=== PATIENT | female | born 2000 | race Caucasian/White ===

== ENCOUNTER 2020-10-22 08:36 | Outpatient (REF) | payer OTHER, MEDICAID, SELFPAY ==
[2020-10-23 11:41] LABS: C. trachomatis RNA TMA NOT DETECTED (NOT DETECTED); N. gonorrhoeae RNA TMA NOT DETECTED (NOT DETECTED)
== END 2020-10-22 08:37 | disposition home or self-care (01) ==
LOC: HO.LAB 08:36
PROVIDERS: Visit Provider Advanced Practice Midwife
DX: Z30.09 Encounter for other general counseling and advice on contraception (principal); Z20.2 Contact with and (suspected) exposure to infections with a predominantly sexual mode of transmission
CPT/HCPCS: 36415; 87491; 87591; 99395

== ENCOUNTER 2021-01-09 14:50 | Outpatient (REF) | payer OTHER, MEDICAID, SELFPAY ==
[2021-01-09 17:43] LABS: Syphilis Screen Nonreactive (Nonreactive)
[2021-01-10 04:30] LABS: HBc Num1 0.04 S/CO (0.00-0.79); Hepatitis B Core Antibody Nonreactive (Nonreactive); ~HepC Num1 0.11 S/CO (0.00-0.79); ~Hepatitis C Antibody Nonreactive (Nonreactive)
[2021-01-10 04:31] LABS: HIV AB/AG Nonreactive (Nonreactive); HIV Num 1 0.05 S/CO (0.00-0.99)
[2021-01-10 05:51] LABS: CT PCR NOT DETECTED (Not Detect.); NG PCR NOT DETECTED (Not Detect.)
[2021-01-10 09:55] LABS: BV Int Neg Control Negative (Negative); BV Int Pos Control Positive (Positive)
== END 2021-01-09 14:51 | disposition home or self-care (01) ==
LOC: HO.LAB 14:50
PROVIDERS: Visit Provider Advanced Practice Midwife
DX: N89.8 Other specified noninflammatory disorders of vagina (principal); Z20.2 Contact with and (suspected) exposure to infections with a predominantly sexual mode of transmission
CPT/HCPCS: 36415; 86704; 86780; 86803; 87389; 87480; 87491; 87510; 87591; 87660

== ENCOUNTER 2021-01-28 17:36 | Inpatient (IN) | payer OTHER, MEDICAID, SELFPAY ==
[2021-01-28 17:53] VITALS: BP 130/66; PULSE 80
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
--- NOTE | 2021-01-28 18:32 | MHC.CARE ---
CARE team contacted Vicente re: pt, who arrived on Sect 12a. Per Vicente- pt was evaluated prior to arrival and is an active inpt psych bedsearch.
[2021-01-28 18:59] VITALS: BMI 51.6
[2021-01-28 19:13] LABS: Appearance Urine CLEAR; Color Urine YELLOW; Glucose Urine UA NEG (NEG); Leukocyte Esterase Urine NEG (NEG); Nitrite Urine NEG (NEG); Specific Gravity - Urine >= 1.030 (1.005-1.025); Urine Blood 3+ (NEG); Urine Ketones NEG (NEG); Urine Protein 2+ MG/DL (NEG-TRACE)
[2021-01-28 19:16] LABS: UPreg QC Valid YES; Urine Pregnancy NEGATIVE (NEGATIVE)
[2021-01-28 19:22] LABS: Bacteria Urine 1+ /LPF; RBC Urine 0-2 /HPF (0); Squamous Epithelial Cell Urine 1+ /LPF; WBC Urine 0 /HPF (0-4)
[2021-01-28 19:45] LABS: Amphetamine Screen Urine Not Detected (Not Detect); Barbiturates, Urine Not Detected (Not Detect); Benzodiazepines Screen Urine Not Detected (Not Detect); Cannabinoid Screen Urine POSITIVE (Not Detect); Cocaine Screen Urine POSITIVE (Not Detect); Opiate Screen Urine Not Detected (Not Detect); Phencyclidine Screen Urine Not Detected (Not Detect)
[2021-01-28 19:56] LABS: MANUAL DIFF FLAG NO
[2021-01-28 20:01] LABS: Basophils Percent Auto 0.4 % (0-2); Eosinophils Absolute Auto 0.1 X10*3/uL (0.0-0.4); Eosinophils Percent Auto 0.9 % (0-4); Hematocrit 36.8 % (37-47); Hemoglobin 12.7 g/dl (12.0-16.0); Imm Gran Abs Auto 0.02 X10*3/uL (0.00-0.03); Imm Gran Pct Auto 0.2 % (0.0-0.4); Lymphocytes Absolute Auto 1.6 X10*3/uL (1.2-4.9); Mean Corpuscular HGB Conc 34.5 g/dl (31.0-35.0); Mean Corpuscular Hemoglobin 32.1 pg (27.0-33.0); Mean Corpuscular Volume 92.9 fL (80-98); Mean Platelet Volume 10.9 fL (9.4-12.3); Monocytes Absolute Auto 0.3 X10*3/uL (0.1-1.2); Monocytes Percent Auto 4.2 % (2-11); Neutrophils Percent Auto 74.3 % (45-73); Platelet Count 202 X10*3/uL (160-400); Red Blood Count 3.96 X10*6/uL (4.20-5.50); Red Cell Distribution Width 11.9 % (11.0-16.0); White Blood Count 8.1 X10*3/uL (4.8-10.8)
[2021-01-28 20:20] LABS: Ethanol < 10 mg/dL
[2021-01-28 20:23] LABS: Alanine Aminotransferase 46 U/L (0-31); Albumin Level 4.7 g/dL (3.5-5.0); Alkaline Phosphatase 42 U/L (39-117); Anion Gap 12 (12-20); Aspartate Amino Transferase 25 U/L (5-31); Bilirubin Direct 0.4 mg/dL (0.0-0.5); Bilirubin Total 1.1 mg/dL (0.0-1.0); Blood Urea Nitrogen 10 mg/dL (9-16); Calcium 9.7 mg/dL (8.4-10.2); Carbon Dioxide 24 mmol/L (22-29); Chloride 105 mmol/L (96-108); Creatinine Clr Calc Pharmacy 119.9; Estimated Glomerular Filt Rate > 60; Glucose Random 91 mg/dL (60-115); Sodium 137 mmol/L (135-145); Total Protein 7.1 g/dL (6.5-8.0)
--- NOTE | 2021-01-28 23:03 | MHC.CARE ---
[facility] crisis evaluation not yet received. Clinical information provided below. Pt has diagnosis of Bipolar Disorder and has been noncompliant with medications for 4 days. She has been presenting as responding to internal stimuli, demonstrating hypersexualized behaviors, endorsed suicidal ideation with plan, disoriented with no concept of time, and with inappropriate affect. Pt has denied SI since arriving to the ED. Plan is for admission to this evening.
--- NOTE | 2021-01-28 23:54 | ECG_ITS ---
Test Reason : ADMISSION CARDIAC ASSESS Blood Pressure : / mmHG Vent. Rate : 044 BPM Atrial Rate : 044 BPM P-R Int : 168 ms QRS Dur : 090 ms QT Int : 434 ms P-R-T Axes : 034 070 034 degrees QTc Int : 371 ms Marked sinus bradycardia with sinus arrhythmia Abnormal ECG No previous ECGs available Referred By: Jay Mendoza Electronically Signed By:SWATI MURRAY MD
[2021-01-29 00:14] VITALS: BP 101/63; PULSE 57; RESP 16; TEMP 37.1; O2SAT 98
[2021-01-29 00:40] LABS: COVID-19 Test Negative (Negative); IDNOW Serial# 9DD0AD1C
[2021-01-29 01:30] VITALS: BP 123/76; PULSE 70; RESP 18; TEMP 36.1; O2SAT 98
[2021-01-29 04:06] VITALS: BMI 25.9
[2021-01-29 08:46] LABS: Valproate < 2.0 mcg/mL (50.0-100.0)
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
[2021-01-29] MEDS: hydrOXYzine HCL 25 MG TABLET PO (10:13)
--- NOTE | 2021-01-29 16:14 | P.HPPS_ITS ---
Documented by User: Zee Washington APRN 01/30/21 12:48 HPI Chief Complaint: Acute psychosis Sources of Information: patient interviewed, chart reviewed and crisis/core team assessment reviewed HPI Subjective Notes: Dejesus Warning and Conditional Voluntary Healthcare Proxy: No Guardianship: Yes (pt says mom is guardian, crisis eval sates she is her own guardian) Medical Problems Affecting Mental Status: No Narrative: I don't know why I am here. 20 yo female, hx of Bipolar Disorder admitted after refusing to attend a virtual PHP program and making a statement about wanting to vs going to the virtual program after mother informed police who intiated Section [place]. Pt reports she graduated just a few days ago and she and mother have been arguing. Pt had no interest in the virtual program, stating she did not want to continue telling her story over and over. She also currently denies SI, denies perceptual alterations and alleges that the crisis team lied to get me admitted. States she feels she cannot live with mother any longer and plans to ask her grandmother if she would be allowed to live with her. Pt reports substance use, cannabis, denies other use, however, toxicology + cocaine. in addition to cannabis. Pt is crying throughout our meeting. She reports not liking mirrors as they make her feel self-conscious about her appearance which decreases her self- esteem. She reports mother has turned this around to make it appear as if she is paranoid. She explains body image concerns so she avoids mirrors. Per crisis report mother believes pt to be detached from reality, behaving with presence of bizarre behaviors-wearing a summer hat in the heat and covering mirrors. Mom also reports pt not to be taking medications consistently to crisis. Past Psychiatric History: IP:Several, over 11 she believes OP: KAREN Harrington APRN-psychopharmacology ICC: Aleena Diaz FS&T: Janae Gross Medical Evaluation Reviewed: Yes [facility] Medical History (Updated 01/30/21 @ 17:30 by Zee Washington APRN) Asthma Bipolar 1 disorder Cannabis use disorder, moderate, dependence Concussion Depression Dystonia Fingers fractured Family History: mother has bipolar disorder Social History: currently not employed. Graduated 01/27/21 from high school Substance History: Pt reports regular cannabis use. Denies other use. Toxicology positive for cannabis and cocaine Trauma History: affirms Diagnostics Vital Signs (24Hr): Vital Signs - 24 hr 01/29/21 00:14 01/29/21 01:30 Temperature 98.7 F 96.9 F Pulse Rate 57 70 Respiratory Rate 16 18 Blood Pressure 101/63 123/76 Pulse Oximetry 98 98 Body Mass Index 25.9 Labs Results: 01/28/21 19:06 01/28/21 19:07 Labs: Laboratory Results - last 48 hr 01/28/21 01/28/21 01/28/21 19:06 19:07 19:07 WBC 8.1 RBC 3.96 L Hgb 12.7 Hct 36.8 L MCV 92.9 MCH 32.1 MCHC 34.5 RDW 11.9 Plt Count 202 MPV 10.9 Immature Gran % (Auto) 0.2 Neut % (Auto) 74.3 H Lymph % (Auto) 20.0 [place] % (Auto) 4.2 Eos % (Auto) 0.9 Baso % (Auto) 0.4 Lymph # (Auto) 1.6 [place] # (Auto) 0.3 Eos # (Auto) 0.1 Baso # (Auto) 0.0 Abs Immat Gran (auto) 0.02 Absolute Neuts (auto) 6.0 Absolute Nucleated RBC 0.000 Nucleated RBC % (auto) 0.0 Sodium 137 Potassium 4.0 Chloride 105 Carbon Dioxide 24 Anion Gap 12 BUN 10 Creatinine 0.89 Estim Creat Clear Calc 119.9 Estimated GFR > 60 Random Glucose 91 Calcium 9.7 Total Bilirubin 1.1 H Direct Bilirubin 0.4 AST 25 ALT 46 H Alkaline Phosphatase 42 Total Protein 7.1 Albumin 4.7 Urine Color Urine Appearance Urine pH Ur Specific [place] Urine Protein Urine Glucose (UA) Urine Ketones Urine Blood Urine Nitrite Ur Leukocyte Esterase Urine RBC Urine WBC Ur Squamous Epith Cells Urine Bacteria Urine Test Urine Opiates Screen Ur Barbiturates Screen Valproic Acid Ur Phencyclidine Scrn Ur Amphetamines Screen U Benzodiazepines Scrn Urine Cocaine Screen U Marijuana (THC) Screen Ethyl Alcohol < 10 COVID-19 ([facility]UONG) COVID-19 Clin Com 01/28/21 01/28/21 01/28/21 19:07 19:07 19:07 WBC RBC Hgb Hct MCV MCH MCHC RDW Plt Count MPV Immature Gran % (Auto) Neut % (Auto) Lymph % (Auto) [place] % (Auto) Eos % (Auto) Baso % (Auto) Lymph # (Auto) [place] # (Auto) Eos # (Auto) Baso # (Auto) Abs Immat Gran (auto) Absolute Neuts (auto) Absolute Nucleated RBC Nucleated RBC % (auto) Sodium Potassium Chloride Carbon Dioxide Anion Gap BUN Creatinine Estim Creat Clear Calc Estimated GFR Random Glucose Calcium Total Bilirubin Direct Bilirubin AST ALT Alkaline Phosphatase Total Protein Albumin Urine Color YELLOW Urine Appearance CLEAR Urine pH 6.0 Ur Specific [place] >= 1.030 H Urine Protein 2+ H Urine Glucose (UA) NEG Urine Ketones NEG Urine Blood 3+ H Urine Nitrite NEG Ur Leukocyte Esterase NEG Urine RBC 0-2 Urine WBC 0 Ur Squamous Epith Cells 1+ Urine Bacteria 1+ Urine Test NEGATIVE Urine Opiates Screen Not Detected Ur Barbiturates Screen Not Detected Valproic Acid Ur Phencyclidine Scrn Not Detected Ur Amphetamines Screen Not Detected U Benzodiazepines Scrn Not Detected Urine Cocaine Screen POSITIVE H U Marijuana (THC) Screen POSITIVE H Ethyl Alcohol COVID-19 ([facility]UONG) COVID-[employer] 01/29/21 01/29/21 00:21 08:08 WBC RBC Hgb Hct MCV MCH MCHC RDW Plt Count MPV Immature Gran % (Auto) Neut % (Auto) Lymph % (Auto) [place] % (Auto) Eos % (Auto) Baso % (Auto) Lymph # (Auto) [place] # (Auto) Eos # (Auto) Baso # (Auto) Abs Immat Gran (auto) Absolute Neuts (auto) Absolute Nucleated RBC Nucleated RBC % (auto) Sodium Potassium Chloride Carbon Dioxide Anion Gap BUN Creatinine Estim Creat Clear Calc Estimated GFR Random Glucose Calcium Total Bilirubin Direct Bilirubin AST ALT Alkaline Phosphatase Total Protein Albumin Urine Color Urine Appearance Urine pH Ur Specific [place] Urine Protein Urine Glucose (UA) Urine Ketones Urine Blood Urine Nitrite Ur Leukocyte Esterase Urine RBC Urine WBC Ur Squamous Epith Cells Urine Bacteria Urine Test Urine Opiates Screen Ur Barbiturates Screen Valproic Acid < 2.0 L Ur Phencyclidine Scrn Ur Amphetamines Screen U Benzodiazepines Scrn Urine Cocaine Screen U Marijuana (THC) Screen Ethyl Alcohol COVID-19 (TRUONG) Negative COVID-19 [employer] See Note Meds/Allergies Meds Home Medications Acetaminophen (Acetaminophen 325 Mg Tablet) 650 mg PO Q6H PRN PRN Reason: Headache/Pain Mild Scale (1-3) Al Hydroxide/Mg Hydroxide (Magnesium Hydrox/Alum Hydrox 30 Ml Oral.Susp) 30 ml PO Q6H PRN PRN Reason: Heartburn/Nausea Benztropine Mesylate (Benztropine Mesylate 0.5 Mg Tablet) 0.5 mg PO BID DUSTIN Last Admin: 02/04/21 20:03 Dose: 0.5 mg Documented by: Diphenhydramine HCl (Diphenhydramine Hcl 50 Mg/Ml Vial) 50 mg IM ONCE PRN PRN Reason: dystonic reaction Hydroxyzine HCl (Hydroxyzine Hcl 25 Mg Tablet) 25 mg PO TID PRN PRN Reason: Anxiety Last Admin: 01/31/21 16:51 Dose: 25 mg Documented by: Magnesium Hydroxide (Milk Of Magnesia 30 Ml Oral.Susp) 30 ml PO DAILY PRN PRN Reason: Constipation Last Admin: 02/03/21 12:59 Dose: 30 ml Documented by: Melatonin (Melatonin 3 Mg Tablet) 6 mg PO BEDTIME DUSTIN Last Admin: 02/04/21 20:04 Dose: 6 mg Documented by: Multivitamins/Vitamin C (Multivitamin Tablet) 1 tab PO DAILY DUSTIN Last Admin: 02/04/21 10:11 Dose: 1 tab Documented by: Nicotine Polacrilex (Nicotine Polacrilex 2 Mg Gum) 4 mg BUCCAL Q2H PRN PRN Reason: Nicotine Cravings Last Admin: 01/31/21 11:34 Dose: 4 mg Documented by: Patient Own Med ( (Compound W 17%)) 1 each TOPICAL BID DUSTIN Last Admin: 02/04/21 10:13 Dose: Not Given Documented by: Pat Own Med ( Compound W Accu- Freeze Freeze) 1 each TOPICAL DAILY DUSTIN Prazosin HCl (Prazosin Hcl 1 Mg Capsule) 2 mg PO BEDTIME DUSTIN; Protocol Last Admin: 02/04/21 20:03 Dose: 2 mg Documented by: Trazodone HCl (Trazodone Hcl 50 Mg Tablet) 150 mg PO BEDTIME PRN PRN Reason: Insomnia Last Admin: 02/04/21 20:04 Dose: 150 mg Documented by: Ziprasidone (Ziprasidone 20 Mg Capsule) 20 mg PO BID DUSTIN Last Admin: 02/04/21 20:03 Dose: 20 mg Documented by: Allergies Allergies Allergy/AdvReac Type Severity Reaction Status Date / Time risperidone [From Risperdal] Allergy Mild gain weight Verified 01/28/21 18:59 aripiprazole [Abilify] Allergy Unknown gain weight Verified 01/28/21 18:59 paliperidone AdvReac dystonia Verified 01/29/21 09:42 Mental Status Exam Mental Status Exam Patient Appearance: Appropriate Patient Orientation: Person, Place, Time and Situation Level of Consciousness: Awake and Alert Patient Behavior: Appropriate, Talkative, Cooperative, Suspicious, Restless, Anxious, Fearful, Distractible, Good Eye Contact and Crying Mood Description: Depressed Affect Description: Flat Patient Cognition Impaired: No Ability to Follow Directions: Good Speech Pattern: Clear, Appropriate, Spontaneous Speech and Soft-Spoken Memory Description: Episodic Impaired Hallucinations: None (denies) Delusions: Not Present Thought Process: Distracted Thought Content: positive for [place], positive for Circumstantial, positive for [place] and positive for Suicidal Ideation (denies) Depressive Symptoms: Unhappiness and Low Self Esteem Judgement: Fair Assessment & Plan Patient educated on: therapeutic strategies Informed Consent: understands and further education needed Reason for continued inpatient stay Substantial Risk for: harm to self, inability to function and rapid decompensation Documented by User: Zeferino Gentile MD 02/04/21 20:37 HPI Chief Complaint: Acute psychosis [facility] Medical History (Updated 01/30/21 @ 17:30 by Zee Washington APRN) Asthma Bipolar 1 disorder Cannabis use disorder, moderate, dependence Concussion Depression Dystonia Fingers fractured Diagnostics Labs Results: 01/28/21 19:06 01/28/21 19:07 Meds/Allergies Meds Home Medications Acetaminophen (Acetaminophen 325 Mg Tablet) 650 mg PO Q6H PRN PRN Reason: Headache/Pain Mild Scale (1-3) Al Hydroxide/Mg Hydroxide (Magnesium Hydrox/Alum Hydrox 30 Ml Oral.Susp) 30 ml PO Q6H PRN PRN Reason: Heartburn/Nausea Benztropine Mesylate (Benztropine Mesylate 0.5 Mg Tablet) 0.5 mg PO BID [facility] Last Admin: 02/04/21 20:03 Dose: 0.5 mg Documented by: Diphenhydramine HCl (Diphenhydramine Hcl 50 Mg/Ml Vial) 50 mg IM ONCE PRN PRN Reason: dystonic reaction Hydroxyzine HCl (Hydroxyzine Hcl 25 Mg Tablet) 25 mg PO TID PRN PRN Reason: Anxiety Last Admin: 01/31/21 16:51 Dose: 25 mg Documented by: Magnesium Hydroxide (Milk Of Magnesia 30 Ml Oral.Susp) 30 ml PO DAILY PRN PRN Reason: Constipation Last Admin: 02/03/21 12:59 Dose: 30 ml Documented by: Melatonin (Melatonin 3 Mg Tablet) 6 mg PO BEDTIME DUSTIN Last Admin: 02/04/21 20:04 Dose: 6 mg Documented by: Multivitamins/Vitamin C (Multivitamin Tablet) 1 tab PO DAILY DUSTIN Last Admin: 02/04/21 10:11 Dose: 1 tab Documented by: Nicotine Polacrilex (Nicotine Polacrilex 2 Mg Gum) 4 mg BUCCAL Q2H PRN PRN Reason: Nicotine Cravings Last Admin: 01/31/21 11:34 Dose: 4 mg Documented by: Patient Own Med ( (Compound W 17%)) 1 each TOPICAL BID DUSTIN Last Admin: 02/04/21 10:13 Dose: Not Given Documented by: Pat Own Med ( Compound W Accu- Freeze Freeze) 1 each TOPICAL DAILY DUSTIN Prazosin HCl (Prazosin Hcl 1 Mg Capsule) 2 mg PO BEDTIME DUSTIN; Protocol Last Admin: 02/04/21 20:03 Dose: 2 mg Documented by: Trazodone HCl (Trazodone Hcl 50 Mg Tablet) 150 mg PO BEDTIME PRN PRN Reason: Insomnia Last Admin: 02/04/21 20:04 Dose: 150 mg Documented by: Ziprasidone (Ziprasidone 20 Mg Capsule) 20 mg PO BID DUSTIN Last Admin: 02/04/21 20:03 Dose: 20 mg Documented by: Allergies Allergies Allergy/AdvReac Type Severity Reaction Status Date / Time risperidone [From Risperdal] Allergy Mild gain weight Verified 01/28/21 18:59 aripiprazole [Abilify] Allergy Unknown gain weight Verified 01/28/21 18:59 paliperidone AdvReac dystonia Verified 01/29/21 09:42
[2021-01-29 18:00] VITALS: BP 117/56; PULSE 80; TEMP 37.1
[2021-01-29] MEDS: Nicotine Polacrilex 2 MG GUM 4 MG BUCCAL (18:44)
[2021-01-29] MEDS: traZODone HCL 50 MG TABLET PO (20:42)
[2021-01-30 06:00] VITALS: BP 108/60; PULSE 50; RESP 14; TEMP 36.3; O2SAT 98
[2021-01-30] MEDS: Nicotine Polacrilex 2 MG GUM 4 MG BUCCAL (09:49)
--- NOTE | 2021-01-30 12:51 | P.PNPSI_ITS ---
Subjective Subjective Date of Service: 01/30/21 Reason For Visit: Acute psychosis Subjective Notes: Conditional Voluntary Healthcare Proxy: No Guardianship: No Medical Problems Affecting Mental Status: No Interim History: Calmer, more engaged. Discussed cocaine use [employer]. Pt uses once in a while, she denies regular use, denies addictive pattern use, just when available. States she has talked with her mother and they have come to a peaceful agreement currently. Medication Compliance: Yes Side effects from medications: No Attending Groups: No Review of Systems Reports behavioral changes Psychiatric: Reports anxiety, Reports behavioral changes and Reports suicidal ideation (denies) Mental Status Exam Mental Status Exam Patient Appearance: Well Grooomed Patient Orientation: Person, Place, Time and Situation Level of Consciousness: Awake and Alert Patient Behavior: Appropriate Mood Description: Depressed and Anxious Affect Description: Flat Patient Cognition Impaired: No Ability to Follow Directions: Good Speech Pattern: Spontaneous Speech Memory Description: Intact Hallucinations: None Delusions: Not Present and Being Controlled (pt is struggling with being an adult and the new parameters with her sharing info with family) Thought Process: Intact and Distracted Thought Content: positive for [place] and positive for Circumstantial Depressive Symptoms: Increased Anxiety and Thoughts of /Suicide (denies) Abnormal Motor Activity Signs and Symptoms: Restlessness Judgement: Fair Diagnostics Vital Signs (24Hr): Vital Signs - 24 hr 01/29/21 18:00 01/30/21 06:00 Temperature 98.7 F 97.3 F Pulse Rate 80 50 Respiratory Rate 14 Blood Pressure 117/56 L 108/60 Pulse Oximetry 98 Body Mass Index 25.9 Labs Results: 01/28/21 19:06 01/28/21 19:07 Labs: Laboratory Results - last 48 hr 01/28/21 01/28/21 01/28/21 19:06 19:07 19:07 WBC 8.1 RBC 3.96 L Hgb 12.7 Hct 36.8 L MCV 92.9 MCH 32.1 MCHC 34.5 RDW 11.9 Plt Count 202 MPV 10.9 Immature Gran % (Auto) 0.2 Neut % (Auto) 74.3 H Lymph % (Auto) 20.0 [place] % (Auto) 4.2 Eos % (Auto) 0.9 Baso % (Auto) 0.4 Lymph # (Auto) 1.6 [place] # (Auto) 0.3 Eos # (Auto) 0.1 Baso # (Auto) 0.0 Abs Immat Gran (auto) 0.02 Absolute Neuts (auto) 6.0 Absolute Nucleated RBC 0.000 Nucleated RBC % (auto) 0.0 Sodium 137 Potassium 4.0 Chloride 105 Carbon Dioxide 24 Anion Gap 12 BUN 10 Creatinine 0.89 Estim Creat Clear Calc 119.9 Estimated GFR > 60 Random Glucose 91 Calcium 9.7 Total Bilirubin 1.1 H Direct Bilirubin 0.4 AST 25 ALT 46 H Alkaline Phosphatase 42 Total Protein 7.1 Albumin 4.7 Urine Color Urine Appearance Urine pH Ur Specific [place] Urine Protein Urine Glucose (UA) Urine Ketones Urine Blood Urine Nitrite Ur Leukocyte Esterase Urine RBC Urine WBC Ur Squamous Epith Cells Urine Bacteria Urine Test Urine Opiates Screen Ur Barbiturates Screen Valproic Acid Ur Phencyclidine Scrn Ur Amphetamines Screen U Benzodiazepines Scrn Urine Cocaine Screen U Marijuana (THC) Screen Ethyl Alcohol < 10 COVID-19 ([facility]UONG) COVID-19 [employer] 01/28/21 01/28/21 01/28/21 19:07 19:07 19:07 WBC RBC Hgb Hct MCV MCH MCHC RDW Plt Count MPV Immature Gran % (Auto) Neut % (Auto) Lymph % (Auto) [place] % (Auto) Eos % (Auto) Baso % (Auto) Lymph # (Auto) [place] # (Auto) Eos # (Auto) Baso # (Auto) Abs Immat Gran (auto) Absolute Neuts (auto) Absolute Nucleated RBC Nucleated RBC % (auto) Sodium Potassium Chloride Carbon Dioxide Anion Gap BUN Creatinine Estim Creat Clear Calc Estimated GFR Random Glucose Calcium Total Bilirubin Direct Bilirubin AST ALT Alkaline Phosphatase Total Protein Albumin Urine Color YELLOW Urine Appearance CLEAR Urine pH 6.0 Ur Specific [place] >= 1.030 H Urine Protein 2+ H Urine Glucose (UA) NEG Urine Ketones NEG Urine Blood 3+ H Urine Nitrite NEG Ur Leukocyte Esterase NEG Urine RBC 0-2 Urine WBC 0 Ur Squamous Epith Cells 1+ Urine Bacteria 1+ Urine Test NEGATIVE Urine Opiates Screen Not Detected Ur Barbiturates Screen Not Detected Valproic Acid Ur Phencyclidine Scrn Not Detected Ur Amphetamines Screen Not Detected U Benzodiazepines Scrn Not Detected Urine Cocaine Screen POSITIVE H U Marijuana (THC) Screen POSITIVE H Ethyl Alcohol COVID-19 ([facility]UONG) COVID-19 [employer] 01/29/21 01/29/21 00:21 08:08 WBC RBC Hgb Hct MCV MCH MCHC RDW Plt Count MPV Immature Gran % (Auto) Neut % (Auto) Lymph % (Auto) [place] % (Auto) Eos % (Auto) Baso % (Auto) Lymph # (Auto) [place] # (Auto) Eos # (Auto) Baso # (Auto) Abs Immat Gran (auto) Absolute Neuts (auto) Absolute Nucleated RBC Nucleated RBC % (auto) Sodium Potassium Chloride Carbon Dioxide Anion Gap BUN Creatinine Estim Creat Clear Calc Estimated GFR Random Glucose Calcium Total Bilirubin Direct Bilirubin AST ALT Alkaline Phosphatase Total Protein Albumin Urine Color Urine Appearance Urine pH Ur Specific [place] Urine Protein Urine Glucose (UA) Urine Ketones Urine Blood Urine Nitrite Ur Leukocyte Esterase Urine RBC Urine WBC Ur Squamous Epith Cells Urine Bacteria Urine Test Urine Opiates Screen Ur Barbiturates Screen Valproic Acid < 2.0 L Ur Phencyclidine Scrn Ur Amphetamines Screen U Benzodiazepines Scrn Urine Cocaine Screen U Marijuana (THC) Screen Ethyl Alcohol COVID-19 ([facility]UONG) Negative COVID-19 Clin Com See Note Medications Medications Current Medications Generic Name Dose Route Start Last Admin Trade Name Freq PRN Reason Stop Dose Admin Acetaminophen 650 mg 01/29/21 00:15 Acetaminophen 325 Mg Tablet PO Q6H PRN Headache/Pain Mild Scale (1-3) Al Hydroxide/Mg Hydroxide 30 ml 01/29/21 00:15 Magnesium Hydrox/Alum Hydrox 30 Ml Oral.Susp PO Q6H PRN Heartburn/Nausea Hydroxyzine HCl 25 mg 01/29/21 00:15 01/29/21 10:13 Hydroxyzine Hcl 25 Mg Tablet PO 25 mg TID PRN Administration Anxiety Magnesium Hydroxide 30 ml 01/29/21 00:15 Milk Of Magnesia 30 Ml Oral.Susp PO DAILY PRN Constipation Nicotine Polacrilex 4 mg 01/29/21 00:15 01/30/21 09:49 Nicotine Polacrilex 2 Mg Gum BUCCAL 4 mg Q2H PRN Administration Nicotine Cravings Trazodone HCl 50 mg 01/29/21 00:15 Trazodone Hcl 50 Mg Tablet PO BEDTIME PRN Insomnia Trazodone HCl 50 mg 01/29/21 21:00 01/29/21 20:42 Trazodone Hcl 50 Mg Tablet PO 50 mg BEDTIME DUSTIN Administration Allergies Allergies Allergy/AdvReac Type Severity Reaction Status Date / Time risperidone [From Risperdal] Allergy Mild gain weight Verified 01/28/21 18:59 aripiprazole [Abilify] Allergy Unknown gain weight Verified 01/28/21 18:59 paliperidone AdvReac dystonia Verified 01/29/21 09:42 Assessment & Plan Assessment & Plan (1) Cocaine use disorder, mild, abuse: Status: Acute Code(s): F14.10 - Cocaine abuse, uncomplicated (2) Cannabis use disorder, moderate, dependence: Status: Acute Code(s): F12.20 - Cannabis dependence, uncomplicated (3) Bipolar 1 disorder: Status: Inactive Code(s): F31.9 - Bipolar disorder, unspecified Assessment and Plan: Continue current regime. Collateral Contacts. Greater than 50% of the session was spent on counseling and/or coordination of care Patient educated on: therapeutic strategies Informed Consent: further education needed Reason for contiued inpatient stay Substantial Risk for: inability to function and rapid decompensation
[2021-01-30 18:00] VITALS: BP 109/59; PULSE 56; RESP 16; TEMP 36.8; O2SAT 97
[2021-01-30] MEDS: traZODone HCL 50 MG TABLET PO (20:34)
[2021-01-31 06:00] VITALS: BP 156/87; PULSE 88; RESP 16; TEMP 36.3; O2SAT 97
[2021-01-31 07:18] VITALS: BP 103/63; PULSE 64; RESP 16; TEMP 36.4; O2SAT 99
[2021-01-31] MEDS: Nicotine Polacrilex 2 MG GUM 4 MG BUCCAL (11:34)
--- NOTE | 2021-01-31 15:02 | P.PNPSI_ITS ---
Subjective Subjective Date of Service: 01/31/21 Reason For Visit: Acute psychosis Subjective Notes: Conditional Voluntary Healthcare Proxy: No Guardianship: No Medical Problems Affecting Mental Status: No Interim History: Pt reports feeling anxious but OK. She is ready to re-start medications which we will do this evening-Prazosin, Benztropine, Vraylar, (Trazodone prn). 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 Tentative plan to discharge next week-will re-establish regime, meeting with OP team on 02/04. Discussed sx EDUCATIONAL ADVISOR which we are hearing from family/OP team that were a concern. Pt states she does not even know what Black Magic is and has no interest in this. The issues with mirrors being covered she discussed as being too self- conscious about appearance and displeased with how she looks when she looks into a mirror. She denies any fear, paranoia or altered perspective regarding this issue, I just wish I looked better, different. Reports at times, when feeling despair she does call out and believes this is what is referred to when it is reported she is screaming-she attributes this to frustration and grief. Currently denies SI, HI. Denies AH, VH or other perceptual alterations. She acknowledges that sx may have escalated due to cocaine use EDUCATIONAL ADVISOR. Medication Compliance: Yes Side effects from medications: No Attending Groups: Intermittent Review of Systems Review of Systems Yes all other systems are reviewed and are negative (denies) Reports behavioral changes Psychiatric: Reports abnormal sleep pattern, Reports anxiety, Reports behavioral changes, Reports irritability, Reports mood swings, Reports paranoia, Reports hallucinations and Reports suicidal ideation (denies) Mental Status Exam Mental Status Exam Patient Appearance: Appropriate Patient Orientation: Person, Place, Time and Situation Level of Consciousness: Awake and Alert Patient Behavior: Guarded, Talkative, Cooperative, Anxious and Good Eye Contact Mood Description: Suspicious and Withdrawn Affect Description: Suspicious, Withdrawn and Constricted Patient Cognition Impaired: No Ability to Follow Directions: Good Speech Pattern: Spontaneous Speech Memory Description: Episodic Impaired Hallucinations: Auditory (denies, team reports appears to respond) Delusions: Not Present (?) Thought Process: Distracted Thought Content: positive for [place], positive for Circumstantial and positive for Suicidal Ideation (denies) Depressive Symptoms: Increased Anxiety and Thoughts of /Suicide (denies) Abnormal Motor Activity Signs and Symptoms: Restlessness Judgement: Fair Diagnostics Vital Signs (24Hr): Vital Signs - 24 hr 01/30/21 18:00 01/31/21 06:00 01/31/21 07:18 Temperature 98.3 F 97.4 F 97.6 F Pulse Rate 56 88 64 Respiratory Rate 16 16 16 Blood Pressure 109/59 L 156/87 H 103/63 Pulse Oximetry 97 97 99 Body Mass Index 25.9 Labs Results: 01/28/21 19:06 01/28/21 19:07 Medications Medications Current Medications Generic Name Dose Route Start Last Admin Trade Name Freq PRN Reason Stop Dose Admin Acetaminophen 650 mg 01/29/21 00:15 Acetaminophen 325 Mg Tablet PO Q6H PRN Headache/Pain Mild Scale (1-3) Al Hydroxide/Mg Hydroxide 30 ml 01/29/21 00:15 Magnesium Hydrox/Alum Hydrox 30 Ml Oral.Susp PO Q6H PRN Heartburn/Nausea Benztropine Mesylate 1 mg 01/31/21 21:00 Benztropine Mesylate 1 Mg Tablet PO BID DUSTIN Cariprazine 1.5 mg 01/31/21 21:00 Cariprazine Hcl 1.5 Mg Capsule PO BEDTIME DUSTIN Hydroxyzine HCl 25 mg 01/29/21 00:15 01/29/21 10:13 Hydroxyzine Hcl 25 Mg Tablet PO 25 mg TID PRN Administration Anxiety Magnesium Hydroxide 30 ml 01/29/21 00:15 Milk Of Magnesia 30 Ml Oral.Susp PO DAILY PRN Constipation Melatonin 5 mg 01/31/21 21:00 Melatonin 3 Mg Tablet PO BEDTIME DUSTIN Nicotine Polacrilex 4 mg 01/29/21 00:15 01/31/21 11:34 Nicotine Polacrilex 2 Mg Gum BUCCAL 4 mg Q2H PRN Administration Nicotine Cravings Prazosin HCl 2 mg 01/31/21 21:00 Prazosin Hcl 1 Mg Capsule PO BEDTIME DUSTIN Protocol Trazodone HCl 150 mg 01/31/21 15:01 Trazodone Hcl 50 Mg Tablet PO BEDTIME PRN Insomnia Allergies Allergies Allergy/AdvReac Type Severity Reaction Status Date / Time risperidone [From Risperdal] Allergy Mild gain weight Verified 01/28/21 18:59 aripiprazole [Abilify] Allergy Unknown gain weight Verified 01/28/21 18:59 paliperidone AdvReac dystonia Verified 01/29/21 09:42 Assessment & Plan Assessment & Plan (1) Cocaine use disorder, mild, abuse: Status: Acute Code(s): F14.10 - Cocaine abuse, uncomplicated Assessment and Plan: No adverse effects to this point it appears (2) Cannabis use disorder, moderate, dependence: Status: Acute Code(s): F12.20 - Cannabis dependence, uncomplicated (3) Bipolar 1 disorder: Status: Inactive Code(s): F31.9 - Bipolar disorder, unspecified Assessment and Plan: Re-start Vraylar, Benztropine, Prazosin Observe and support pt. Collateral Contacts. Greater than 50% of the session was spent on counseling and/or coordination of care Reason for contiued inpatient stay Substantial Risk for: harm to self, inability to function and rapid decompensation
[2021-01-31 16:45] VITALS: BP 114/62; PULSE 74; TEMP 36.6
[2021-01-31] MEDS: hydrOXYzine HCL 25 MG TABLET PO (16:51)
[2021-01-31 20:47] VITALS: BP 112/62; PULSE 55
[2021-01-31] MEDS: Benztropine Mesylate 1 MG TABLET PO (20:47)
[2021-01-31] MEDS: Melatonin 3 MG TABLET 6 MG PO (20:47)
[2021-01-31] MEDS: Cariprazine HCl 1.5 MG CAPSULE PO (20:47)
[2021-01-31] MEDS: Prazosin HCL 1 MG CAPSULE 2 MG PO (20:47)
[2021-02-01 06:00] VITALS: BP 95/55; PULSE 54; RESP 14; TEMP 36.1; O2SAT 98
[2021-02-01] MEDS: Benztropine Mesylate 1 MG TABLET PO ×2 (08:19→20:21)
--- NOTE | 2021-02-01 09:00 | ECG_ITS ---
Test Reason : COCAINE USE Blood Pressure : / mmHG Vent. Rate : 049 BPM Atrial Rate : 049 BPM P-R Int : 152 ms QRS Dur : 084 ms QT Int : 424 ms P-R-T Axes : 017 068 047 degrees QTc Int : 383 ms Sinus bradycardia Otherwise normal ECG When compared with ECG of 28-JAN-2021 23:54, No significant change was found Referred By: Zee Washington Electronically Signed By:SWATI MURRAY MD
--- NOTE | 2021-02-01 12:50 | HO.PSYCHPN ---
Subjective Subjective Date of Service: 02/01/21 Reason For Visit: Acute psychosis Subjective Notes: Conditional Voluntary Healthcare Proxy: No Guardianship: No Medical Problems Affecting Mental Status: No Interim History: Medication regime re-started without adverse response. 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 Mom asks that we find a dual diagnosis rehab for pt when discharged. Pt agrees, feeling use has precipitated her instability and need for admission and she needs more help with this. Medication Compliance: Yes Side effects from medications: No Attending Groups: Intermittent Review of Systems Review of Systems Yes all other systems are reviewed and are negative Reports behavioral changes Psychiatric: Reports anxiety, Reports behavioral changes, Reports depression, Reports difficulty concentrating and Reports anhedonia Mental Status Exam Mental Status Exam Patient Appearance: Disheveled Patient Orientation: Person, Place, Time and Situation Level of Consciousness: Awake Patient Behavior: Appropriate, Talkative and Cooperative Mood Description: Withdrawn and Depressed Affect Description: Withdrawn, Depressed and Flat Patient Cognition Impaired: No Ability to Follow Directions: Good Speech Pattern: Spontaneous Speech Memory Description: Intact Hallucinations: None Delusions: Not Present Thought Process: Distracted Thought Content: positive for Circumstantial Depressive Symptoms: Increased Anxiety, Diff. Making Decisions, Increased Irritability, Feelings of Worthlessness, Hopelessness, Unhappiness and Loss of Energy Judgement: Fair Diagnostics Vital Signs (24Hr): Vital Signs - 24 hr 01/31/21 16:45 01/31/21 20:47 02/01/21 06:00 Temperature 97.9 F 97 F Pulse Rate 74 55 54 Respiratory Rate 14 Blood Pressure 114/62 112/62 95/55 L Pulse Oximetry 98 Body Mass Index 25.9 Labs Results: 01/28/21 19:06 01/28/21 19:07 Medications Medications Current Medications Generic Name Dose Route Start Last Admin Trade Name Freq PRN Reason Stop Dose Admin Acetaminophen 650 mg 01/29/21 00:15 Acetaminophen 325 Mg Tablet PO Q6H PRN Headache/Pain Mild Scale (1-3) Al Hydroxide/Mg Hydroxide 30 ml 01/29/21 00:15 Magnesium Hydrox/Alum Hydrox 30 Ml Oral.Susp PO Q6H PRN Heartburn/Nausea Benztropine Mesylate 1 mg 01/31/21 21:00 02/01/21 08:19 Benztropine Mesylate 1 Mg Tablet PO 1 mg BID DUSTIN Administration Cariprazine 1.5 mg 01/31/21 21:00 01/31/21 20:47 Cariprazine Hcl 1.5 Mg Capsule PO 1.5 mg BEDTIME DUSTIN Administration Hydroxyzine HCl 25 mg 01/29/21 00:15 01/31/21 16:51 Hydroxyzine Hcl 25 Mg Tablet PO 25 mg TID PRN Administration Anxiety Magnesium Hydroxide 30 ml 01/29/21 00:15 Milk Of Magnesia 30 Ml Oral.Susp PO DAILY PRN Constipation Melatonin 6 mg 01/31/21 21:00 01/31/21 20:47 Melatonin 3 Mg Tablet PO 6 mg BEDTIME DUSTIN Administration Nicotine Polacrilex 4 mg 01/29/21 00:15 01/31/21 11:34 Nicotine Polacrilex 2 Mg Gum BUCCAL 4 mg Q2H PRN Administration Nicotine Cravings Prazosin HCl 2 mg 01/31/21 21:00 01/31/21 20:47 Prazosin Hcl 1 Mg Capsule PO 2 mg BEDTIME DUSTIN Administration Protocol Trazodone HCl 150 mg 01/31/21 15:01 Trazodone Hcl 50 Mg Tablet PO BEDTIME PRN Insomnia Allergies Allergies Allergy/AdvReac Type Severity Reaction Status Date / Time risperidone [From Risperdal] Allergy Mild gain weight Verified 01/28/21 18:59 aripiprazole [Abilify] Allergy Unknown gain weight Verified 01/28/21 18:59 paliperidone AdvReac dystonia Verified 01/29/21 09:42 Assessment & Plan Assessment & Plan (1) Cocaine use disorder, mild, abuse: Status: Acute Code(s): F14.10 - Cocaine abuse, uncomplicated Assessment and Plan: No adverse effects to this point it appears (2) Cannabis use disorder, moderate, dependence: Status: Acute Code(s): F12.20 - Cannabis dependence, uncomplicated (3) Bipolar 1 disorder: Status: Inactive Code(s): F31.9 - Bipolar disorder, unspecified Assessment and Plan: Re-start Vraylar, Benztropine, Prazosin Observe and support pt. Collateral Contacts. Greater than 50% of the session was spent on counseling and/or coordination of care Reason for contiued inpatient stay Substantial Risk for: harm to self, inability to function, rapid decompensation and med/psych decompensation
[2021-02-01 16:45] VITALS: BP 114/62; PULSE 75; TEMP 36.9
[2021-02-01 20:21] VITALS: BP 110/60; PULSE 86
[2021-02-01] MEDS: Prazosin HCL 1 MG CAPSULE 2 MG PO (20:21)
[2021-02-01] MEDS: Melatonin 3 MG TABLET 6 MG PO (20:22)
[2021-02-01] MEDS: Cariprazine HCl 1.5 MG CAPSULE PO (20:22)
[2021-02-02 06:00] VITALS: BP 107/56; PULSE 66; RESP 16; TEMP 36.8; O2SAT 98
--- NOTE | 2021-02-02 08:54 | P.PNPSI_ITS ---
Subjective Subjective Date of Service: 02/02/21 Reason For Visit: Acute psychosis Interim History: patient sitting with her mother patient denies current AH. She says im good on my meds and that she's eating and sleeping well Pt says that her nipples are lactating and agrees to show nurses next time it happens; race and sports book writer reviewed risks/side-effects of antipsychotic medications including gallachtorhea and patient says she does not care about that as long as medications are effective. mother and daughter are concerned about Warts that have sprung up on patients feet and hands in last couple of weeks. Concern for mom is that patient has much anxiety over how she looks and that things like warts could trigger troublesome anxiety for patient. She denies SI mom says that patient had a bout of painful dystonia and was thus put on Cogentin. Discussed cogentin and daughter would like to lower it to 0.5mg BID given that she may not get dystonia on abilify. mom says following about meds: Palliperidone: dystonia Abilify: tongue swelling risperdal: ? Medication Compliance: Yes Side effects from medications: Yes (pt complains of Gallachtorhea on Vraylar; will show nurse next time) Mental Status Exam Mental Status Exam Narrative: Appearance: well groomed Patient Orientation: Person, Place, Time and Situation Level of Consciousness: Awake Patient Behavior: Appropriate, Talkative and Cooperative Mood Description: anxious Affect Description: congruent Patient Cognition Impaired: No Ability to Follow Directions: Good Speech Pattern: Spontaneous Speech Memory Description: Intact Hallucinations: AH Delusions: none solicited Thought Process: linear and goal oriented Thought Content: on treatment for aH; denies SI and HI Depressive Symptoms: Increased Anxiety, Diff. Making Decisions, Increased Irritability, Feelings of Worthlessness, Hopelessness, Unhappiness and Loss of Energy Judgement: Fair Diagnostics Vital Signs (24Hr): Vital Signs - 24 hr 02/01/21 16:45 02/01/21 20:21 02/02/21 06:00 Temperature 98.5 F 98.2 F Pulse Rate 75 86 66 Respiratory Rate 16 Blood Pressure 114/62 110/60 107/56 L Pulse Oximetry 98 Body Mass Index 25.9 Labs Results: 01/28/21 19:06 01/28/21 19:07 Medications Medications Current Medications Generic Name Dose Route Start Last Admin Trade Name Freq PRN Reason Stop Dose Admin Acetaminophen 650 mg 01/29/21 00:15 Acetaminophen 325 Mg Tablet PO Q6H PRN Headache/Pain Mild Scale (1-3) Al Hydroxide/Mg Hydroxide 30 ml 01/29/21 00:15 Magnesium Hydrox/Alum Hydrox 30 Ml Oral.Susp PO Q6H PRN Heartburn/Nausea Benztropine Mesylate 1 mg 01/31/21 21:00 02/01/21 20:21 Benztropine Mesylate 1 Mg Tablet PO 1 mg BID DUSTIN Administration Cariprazine 1.5 mg 01/31/21 21:00 02/01/21 20:22 Cariprazine Hcl 1.5 Mg Capsule PO 1.5 mg BEDTIME DUSTIN Administration Hydroxyzine HCl 25 mg 01/29/21 00:15 01/31/21 16:51 Hydroxyzine Hcl 25 Mg Tablet PO 25 mg TID PRN Administration Anxiety Magnesium Hydroxide 30 ml 01/29/21 00:15 Milk Of Magnesia 30 Ml Oral.Susp PO DAILY PRN Constipation Melatonin 6 mg 01/31/21 21:00 02/01/21 20:22 Melatonin 3 Mg Tablet PO 6 mg BEDTIME DUSTIN Administration Nicotine Polacrilex 4 mg 01/29/21 00:15 01/31/21 11:34 Nicotine Polacrilex 2 Mg Gum BUCCAL 4 mg Q2H PRN Administration Nicotine Cravings Patient Own Med ( 1 each 02/01/21 21:00 02/01/21 19:22 Compound W 17%) TOPICAL 1 each BID DUSTIN Administration Prazosin HCl 2 mg 01/31/21 21:00 02/01/21 20:21 Prazosin Hcl 1 Mg Capsule PO 2 mg BEDTIME DUSTIN Administration Protocol Trazodone HCl 150 mg 01/31/21 15:01 Trazodone Hcl 50 Mg Tablet PO BEDTIME PRN Insomnia Allergies Allergies Allergy/AdvReac Type Severity Reaction Status Date / Time risperidone [From Risperdal] Allergy Mild gain weight Verified 01/28/21 18:59 aripiprazole [Abilify] Allergy Unknown gain weight Verified 01/28/21 18:59 paliperidone AdvReac dystonia Verified 01/29/21 09:42 Assessment & Plan Assessment & Plan (1) Cocaine use disorder, mild, abuse: Status: Acute Code(s): F14.10 - Cocaine abuse, uncomplicated Assessment and Plan: No adverse effects to this point it appears (2) Cannabis use disorder, moderate, dependence: Status: Acute Code(s): F12.20 - Cannabis dependence, uncomplicated (3) Bipolar 1 disorder: Status: Inactive Code(s): F31.9 - Bipolar disorder, unspecified Assessment and Plan: Weekend: continue Vraylar lowered cogentin to 0.5mg BID to see if adequate mom brought in otc meds for warts pt denies AVH at this time Re-start Vraylar, Benztropine, Prazosin Observe and support pt. Collateral Contacts. Greater than 50% of the session was spent on counseling and/or coordination of care Reason for contiued inpatient stay Substantial Risk for: med/psych decompensation
[2021-02-02] MEDS: Benztropine Mesylate 1 MG TABLET PO (09:04)
[2021-02-02 09:20] LABS: Estimated Average Glucose 94 mg/dL; Hemoglobin A1c % 4.9 %
[2021-02-02 09:36] LABS: Cholesterol 186 mg/dL; HDL Cholesterol 52 mg/dL; LDL Cholesterol Calculated 115 mg/dl; Triglycerides 96 mg/dL
[2021-02-02] MEDS: Multivitamin TABLET 1 TAB PO (12:38)
--- NOTE | 2021-02-02 12:50 | PC.NURSE ---
pt reported to staff that she was having discharge from her nipples/breasts. assessed by this rewriter. pt squeezed both nipples and no drainage noted at this time. pt aware to come to staff if this is happening again. dr. Salazar aware.
[2021-02-02 16:38] VITALS: BP 114/58; PULSE 71; TEMP 36.6
[2021-02-02 19:50] VITALS: BP 114/65; PULSE 80; TEMP 36.6
[2021-02-02 20:08] VITALS: BP 114/65; PULSE 80
[2021-02-02] MEDS: Prazosin HCL 1 MG CAPSULE 2 MG PO (20:08)
[2021-02-02] MEDS: Cariprazine HCl 1.5 MG CAPSULE PO (20:08)
[2021-02-02] MEDS: Melatonin 3 MG TABLET 6 MG PO (20:08)
[2021-02-02] MEDS: traZODone HCL 50 MG TABLET 150 MG PO (20:08)
[2021-02-02] MEDS: Benztropine Mesylate 0.5 MG TABLET PO (20:08)
[2021-02-03 06:20] VITALS: BP 118/54; PULSE 71; RESP 16; TEMP 36.2; O2SAT 99
[2021-02-03] MEDS: Multivitamin TABLET 1 TAB PO (08:31)
[2021-02-03] MEDS: Benztropine Mesylate 0.5 MG TABLET PO ×2 (08:31→20:00)
--- NOTE | 2021-02-03 10:00 | HO.PSYCHPN ---
Subjective Subjective Date of Service: 02/03/21 Reason For Visit: Acute psychosis Interim History: pt reports AH are worse and that she's been minimizing them hesitant to try new meds or have med changes however, she says whatever will take voices away she'll take. pt says she hears the voice of a past friend who taunts her, criticizes her, wakes her up, says she'll take her place in the family...if she eats food which is bad the voices say they will punish her by giving her warts. Pt is open to reality testing and seems to accepts writers explanation of symptoms. Patient also shares how she feels she's being punished since she was not very lady like last year (seems to be reference to doing cocaine). She agrees to increase in Vraylar; will also try Ziprasidone as prn for breakthrough AH. Clerical Transcriber reviewed risks/side-effects and pt agrees to trial. she denies any SI or HI. Mental Status Exam Mental Status Exam Narrative: Appearance: well groomed Patient Orientation: Person, Place, Time and Situation Level of Consciousness: Awake Patient Behavior: Appropriate, Talkative and Cooperative Mood Description: anxious Affect Description: congruent Patient Cognition Impaired: No Ability to Follow Directions: Good Speech Pattern: Spontaneous Speech Memory Description: Intact Hallucinations: AH Delusions: being given warts as punishment Thought Process: linear and goal oriented Thought Content: on treatment for aH Depressive Symptoms: Increased Anxiety, Diff. Making Decisions, Increased Irritability, Feelings of Worthlessness, Hopelessness, Unhappiness and Loss of Energy Judgement: Fair Diagnostics Vital Signs (24Hr): Vital Signs - 24 hr 02/02/21 16:38 02/02/21 19:50 02/02/21 20:08 Temperature 97.8 F 98 F Pulse Rate 71 80 80 Respiratory Rate Blood Pressure 114/58 L 114/65 114/65 Pulse Oximetry 02/03/21 06:20 Temperature 97.2 F Pulse Rate 71 Respiratory Rate 16 Blood Pressure 118/54 L Pulse Oximetry 99 Body Mass Index 25.9 Labs Results: 01/28/21 19:06 01/28/21 19:07 Labs: Laboratory Results - last 48 hr 02/02/21 02/02/21 08:07 08:07 Estimat Average Glucose 94 Hemoglobin A1c % 4.9 Triglycerides 96 Cholesterol 186 LDL Cholesterol, Calc 115 HDL Cholesterol 52 Medications Medications Current Medications Generic Name Dose Route Start Last Admin Trade Name Freq PRN Reason Stop Dose Admin Acetaminophen 650 mg 01/29/21 00:15 Acetaminophen 325 Mg Tablet PO Q6H PRN Headache/Pain Mild Scale (1-3) Al Hydroxide/Mg Hydroxide 30 ml 01/29/21 00:15 Magnesium Hydrox/Alum Hydrox 30 Ml Oral.Susp PO Q6H PRN Heartburn/Nausea Benztropine Mesylate 0.5 mg 02/02/21 21:00 02/03/21 08:31 Benztropine Mesylate 0.5 Mg Tablet PO 0.5 mg BID DUSTIN Administration Cariprazine 1.5 mg 01/31/21 21:00 02/02/21 20:08 Cariprazine Hcl 1.5 Mg Capsule PO 1.5 mg BEDTIME DUSTIN Administration Diphenhydramine HCl 50 mg 02/02/21 11:56 Diphenhydramine Hcl 50 Mg/Ml Vial IM ONCE PRN dystonic reaction Hydroxyzine HCl 25 mg 01/29/21 00:15 01/31/21 16:51 Hydroxyzine Hcl 25 Mg Tablet PO 25 mg TID PRN Administration Anxiety Magnesium Hydroxide 30 ml 01/29/21 00:15 Milk Of Magnesia 30 Ml Oral.Susp PO DAILY PRN Constipation Melatonin 6 mg 01/31/21 21:00 02/02/21 20:08 Melatonin 3 Mg Tablet PO 6 mg BEDTIME DUSTIN Administration Multivitamins/Vitamin C 1 tab 02/02/21 11:40 02/03/21 08:31 Multivitamin Tablet PO 1 tab DAILY DUSTIN Administration Nicotine Polacrilex 4 mg 01/29/21 00:15 01/31/21 11:34 Nicotine Polacrilex 2 Mg Gum BUCCAL 4 mg Q2H PRN Administration Nicotine Cravings Patient Own Med ( 1 each 02/01/21 21:00 02/03/21 08:32 Compound W 17%) TOPICAL 1 each BID DUSTIN Administration Prazosin HCl 2 mg 01/31/21 21:00 02/02/21 20:08 Prazosin Hcl 1 Mg Capsule PO 2 mg BEDTIME DUSTIN Administration Protocol Trazodone HCl 150 mg 01/31/21 15:01 02/02/21 20:08 Trazodone Hcl 50 Mg Tablet PO 150 mg BEDTIME PRN Administration Insomnia Ziprasidone 20 mg 02/03/21 09:58 Ziprasidone 20 Mg Capsule PO BID PRN psychotic anxiety Allergies Allergies Allergy/AdvReac Type Severity Reaction Status Date / Time risperidone [From Risperdal] Allergy Mild gain weight Verified 01/28/21 18:59 aripiprazole [Abilify] Allergy Unknown gain weight Verified 01/28/21 18:59 paliperidone AdvReac dystonia Verified 01/29/21 09:42 Assessment & Plan Assessment & Plan (1) Cocaine use disorder, mild, abuse: Status: Acute Code(s): F14.10 - Cocaine abuse, uncomplicated Assessment and Plan: No adverse effects to this point it appears (2) Cannabis use disorder, moderate, dependence: Status: Acute Code(s): F12.20 - Cannabis dependence, uncomplicated (3) Bipolar 1 disorder: Status: Inactive Code(s): F31.9 - Bipolar disorder, unspecified Assessment and Plan: Weekend Coverage: -Increase Vraylar to 3mg qhs -start Ziprasidone as prn for AH; if patient finds Ziprasidone effective, can consider this med instead of Vraylar (pt prefers side-effect profile that causes least amount of wt gain) -continue Cogentin 0.5mg BiD (down from 1mg BID) called mom, but VM full Re-start Vraylar, Benztropine, Prazosin Observe and support pt. Collateral Contacts. Greater than 50% of the session was spent on counseling and/or coordination of care Reason for contiued inpatient stay Substantial Risk for: med/psych decompensation
[2021-02-03] MEDS: Ziprasidone 20 MG CAPSULE PO ×2 (11:56→17:34)
[2021-02-03] MEDS: Milk of Magnesia 30 ML ORAL.SUSP PO (12:59)
[2021-02-03 16:40] VITALS: BP 108/64; PULSE 58; TEMP 36.3
[2021-02-03 19:45] VITALS: BP 96/58; PULSE 60; TEMP 36.6
[2021-02-03] MEDS: Cariprazine HCl 1.5 MG CAPSULE PO (20:00)
[2021-02-03] MEDS: Melatonin 3 MG TABLET 6 MG PO (20:00)
[2021-02-03] MEDS: traZODone HCL 50 MG TABLET 150 MG PO (20:00)
[2021-02-03 20:01] VITALS: BP 96/58; PULSE 60
[2021-02-04 06:00] VITALS: BP 96/59; PULSE 66; RESP 16; TEMP 36; O2SAT 99
[2021-02-04] MEDS: Multivitamin TABLET 1 TAB PO (10:11)
[2021-02-04] MEDS: Cariprazine HCl 1.5 MG CAPSULE PO (10:12)
[2021-02-04] MEDS: Benztropine Mesylate 0.5 MG TABLET PO ×2 (10:12→20:03)
[2021-02-04] MEDS: Ziprasidone 20 MG CAPSULE PO ×2 (11:40→20:03)
[2021-02-04 17:35] VITALS: BP 90/56; PULSE 114; TEMP 36.7
--- NOTE | 2021-02-04 18:05 | P.PNPSI_ITS ---
Subjective Subjective Date of Service: 02/04/21 Reason For Visit: Acute psychosis Subjective Notes: Conditional Voluntary Healthcare Proxy: No Guardianship: No Medical Problems Affecting Mental Status: No Interim History: Pt reports Geodon PRN has been more effective than Vraylar in sx mgt. Hx of SE with antipsychotics. Will carefully titrate Geodon to assess tolerance. Concern about warts on hand and [id number] new OTC med family purchased [place] [facility]. Discussed hx of atypical use-Risperdal with increase in weight, abilify with tongue swelling, palpiderone with dystonias. Pt plans team meeting today to discuss possibility of attending rehab for cocaine use. Pt is in agreement with rehab plan of care to help with addiction sx. Review of Systems Reports behavioral changes Psychiatric: Reports anxiety, Reports behavioral changes, Reports depression, Reports auditory hallucinations and Reports mood swings Mental Status Exam Mental Status Exam Patient Appearance: Appropriate Patient Orientation: Person, Place, Time and Situation Level of Consciousness: Awake and Alert Patient Behavior: Talkative, Anxious and Good Eye Contact Mood Description: Anxious Affect Description: Flat Patient Cognition Impaired: No Ability to Follow Directions: Good Speech Pattern: Spontaneous Speech Memory Description: Episodic Impaired Hallucinations: Auditory Delusions: Not Present Thought Process: Distracted Thought Content: positive for Intact, positive for [place] and positive for Circumstantial Depressive Symptoms: Increased Anxiety Judgement: Fair Diagnostics Vital Signs (24Hr): Vital Signs - 24 hr 02/03/21 19:45 02/03/21 20:01 02/04/21 06:00 Temperature 98 F 96.8 F Pulse Rate 60 60 66 Respiratory Rate 16 Blood Pressure 96/58 L 96/58 L 96/59 L Pulse Oximetry 99 Body Mass Index 25.9 Labs Results: 01/28/21 19:06 01/28/21 19:07 Medications Medications Current Medications Generic Name Dose Route Start Last Admin Trade Name Freq PRN Reason Stop Dose Admin Acetaminophen 650 mg 01/29/21 00:15 Acetaminophen 325 Mg Tablet PO Q6H PRN Headache/Pain Mild Scale (1-3) Al Hydroxide/Mg Hydroxide 30 ml 01/29/21 00:15 Magnesium Hydrox/Alum Hydrox 30 Ml Oral.Susp PO Q6H PRN Heartburn/Nausea Benztropine Mesylate 0.5 mg 02/02/21 21:00 02/04/21 10:12 Benztropine Mesylate 0.5 Mg Tablet PO 0.5 mg BID DUSTIN Administration Diphenhydramine HCl 50 mg 02/02/21 11:56 Diphenhydramine Hcl 50 Mg/Ml Vial IM ONCE PRN dystonic reaction Hydroxyzine HCl 25 mg 01/29/21 00:15 01/31/21 16:51 Hydroxyzine Hcl 25 Mg Tablet PO 25 mg TID PRN Administration Anxiety Magnesium Hydroxide 30 ml 01/29/21 00:15 02/03/21 12:59 Milk Of Magnesia 30 Ml Oral.Susp PO 30 ml DAILY PRN Administration Constipation Melatonin 6 mg 01/31/21 21:00 02/03/21 20:00 Melatonin 3 Mg Tablet PO 6 mg BEDTIME DUSTIN Administration Multivitamins/Vitamin C 1 tab 02/02/21 11:40 02/04/21 10:11 Multivitamin Tablet PO 1 tab DAILY DUSTIN Administration Nicotine Polacrilex 4 mg 01/29/21 00:15 01/31/21 11:34 Nicotine Polacrilex 2 Mg Gum BUCCAL 4 mg Q2H PRN Administration Nicotine Cravings Patient Own Med ( 1 each 02/01/21 21:00 02/04/21 10:13 Compound W 17%) TOPICAL Not Given BID DUSTIN Pat Own Med ( 1 each 02/04/21 16:45 Compound W Accu- TOPICAL Freeze Freeze) DAILY DUSTIN Prazosin HCl 2 mg 01/31/21 21:00 02/03/21 20:01 Prazosin Hcl 1 Mg Capsule PO Not Given BEDTIME DUSTIN Protocol Trazodone HCl 150 mg 01/31/21 15:01 02/03/21 20:00 Trazodone Hcl 50 Mg Tablet PO 150 mg BEDTIME PRN Administration Insomnia Ziprasidone 20 mg 02/04/21 21:00 02/04/21 11:40 Ziprasidone 20 Mg Capsule PO 20 mg BID DUSTIN Administration Allergies Allergies Allergy/AdvReac Type Severity Reaction Status Date / Time risperidone [From Risperdal] Allergy Mild gain weight Verified 01/28/21 18:59 aripiprazole [Abilify] Allergy Unknown gain weight Verified 01/28/21 18:59 paliperidone AdvReac dystonia Verified 01/29/21 09:42 Assessment & Plan Assessment & Plan (1) Cocaine use disorder, mild, abuse: Status: Acute Code(s): F14.10 - Cocaine abuse, uncomplicated Assessment and Plan: No adverse effects to this point it appears (2) Cannabis use disorder, moderate, dependence: Status: Acute Code(s): F12.20 - Cannabis dependence, uncomplicated (3) Bipolar 1 disorder: Status: Inactive Code(s): F31.9 - Bipolar disorder, unspecified Assessment and Plan: Discontinue Vraylar-pt reports it is not helpful with sx. Discontinue prn Geodon Geodon 20 mg bid as pt reports relief of sx over the weekend. Will begin at bid and we may be able to taper to qd if sx extinguish. Greater than 50% of the session was spent on counseling and/or coordination of care Reason for contiued inpatient stay Substantial Risk for: rapid decompensation
[2021-02-04 19:50] VITALS: BP 120/74; PULSE 60; TEMP 36.5
[2021-02-04 20:03] VITALS: BP 120/74; PULSE 60
[2021-02-04] MEDS: Prazosin HCL 1 MG CAPSULE 2 MG PO (20:03)
[2021-02-04] MEDS: traZODone HCL 50 MG TABLET 150 MG PO (20:04)
[2021-02-04] MEDS: Melatonin 3 MG TABLET 6 MG PO (20:04)
[2021-02-05 06:00] VITALS: BP 101/72; PULSE 54; RESP 16; TEMP 36.7; O2SAT 98
[2021-02-05] MEDS: Multivitamin TABLET 1 TAB PO (10:28)
[2021-02-05] MEDS: Ziprasidone 20 MG CAPSULE PO ×2 (10:28→20:46)
[2021-02-05] MEDS: Benztropine Mesylate 0.5 MG TABLET PO ×2 (10:29→20:46)
[2021-02-05] MEDS: hydrOXYzine HCL 25 MG TABLET PO (11:35)
--- NOTE | 2021-02-05 16:53 | P.PNPSI_ITS ---
Subjective Subjective Date of Service: 02/05/21 Reason For Visit: Acute psychosis Subjective Notes: Conditional Voluntary Healthcare Proxy: No Guardianship: No Medical Problems Affecting Mental Status: No Interim History: Pt is hoping to go to addictions [facility] or longer term residential addictions treatment upon discharge. Reports she is tolerating Geodon without adverse effect. States she is well but is isolative, in bed covers over her head, on the edge of milieu, but very engaged in individual meetings, motivated for treatment. Monitoring for atypical SE which by history she has had several sx. Medication Compliance: Yes Side effects from medications: Yes Attending Groups: Intermittent Review of Systems Psychiatric: Reports anxiety, Reports depression, Reports difficulty blaine ntrating and Reports panic attacks Mental Status Exam Mental Status Exam Patient Appearance: Appropriate Patient Orientation: Person, Place, Time and Situation Level of Consciousness: Awake and Alert Patient Behavior: Talkative, Isolative and Good Eye Contact Mood Description: Withdrawn and Anxious Affect Description: Flat Patient Cognition Impaired: No Ability to Follow Directions: Good Speech Pattern: Spontaneous Speech Memory Description: Intact Hallucinations: None and Auditory (significant decrease-none most of the time she reports.) Delusions: Not Present Thought Process: Goal Oriented Thought Content: positive for [place] and positive for Circumstantial Depressive Symptoms: Increased Anxiety and Low Self Esteem Judgement: Fair Diagnostics Vital Signs (24Hr): Vital Signs - 24 hr 02/04/21 17:35 02/04/21 19:50 02/04/21 20:03 Temperature 98.1 F 97.7 F Pulse Rate 114 H 60 60 Respiratory Rate Blood Pressure 90/56 L 120/74 120/74 Pulse Oximetry 02/05/21 06:00 Temperature 98.1 F Pulse Rate 54 Respiratory Rate 16 Blood Pressure 101/72 Pulse Oximetry 98 Body Mass Index 25.9 Labs Results: 01/28/21 19:06 01/28/21 19:07 Medications Medications Current Medications Generic Name Dose Route Start Last Admin Trade Name Freq PRN Reason Stop Dose Admin Acetaminophen 650 mg 01/29/21 00:15 Acetaminophen 325 Mg Tablet PO Q6H PRN Headache/Pain Mild Scale (1-3) Al Hydroxide/Mg Hydroxide 30 ml 01/29/21 00:15 Magnesium Hydrox/Alum Hydrox 30 Ml Oral.Susp PO Q6H PRN Heartburn/Nausea Benztropine Mesylate 0.5 mg 02/02/21 21:00 02/05/21 10:29 Benztropine Mesylate 0.5 Mg Tablet PO 0.5 mg BID DUSTIN Administration Diphenhydramine HCl 50 mg 02/02/21 11:56 Diphenhydramine Hcl 50 Mg/Ml Vial IM ONCE PRN dystonic reaction Hydroxyzine HCl 25 mg 01/29/21 00:15 02/05/21 11:35 Hydroxyzine Hcl 25 Mg Tablet PO 25 mg TID PRN Administration Anxiety Magnesium Hydroxide 30 ml 01/29/21 00:15 02/03/21 12:59 Milk Of Magnesia 30 Ml Oral.Susp PO 30 ml DAILY PRN Administration Constipation Melatonin 6 mg 01/31/21 21:00 02/04/21 20:04 Melatonin 3 Mg Tablet PO 6 mg BEDTIME DUSTIN Administration Multivitamins/Vitamin C 1 tab 02/02/21 11:40 02/05/21 10:28 Multivitamin Tablet PO 1 tab DAILY DUSTIN Administration Nicotine Polacrilex 4 mg 01/29/21 00:15 01/31/21 11:34 Nicotine Polacrilex 2 Mg Gum BUCCAL 4 mg Q2H PRN Administration Nicotine Cravings Patient Own Med ( 1 each 02/01/21 21:00 02/05/21 10:29 Compound W 17%) TOPICAL Not Given BID DUSTIN Pat Own Med ( 1 each 02/04/21 16:45 02/05/21 10:29 Compound W Accu- TOPICAL Not Given Freeze Freeze) DAILY DUSTIN Pt Own Med (Compound 1 each 02/06/21 09:00 02/05/21 14:33 W One Step TOPICAL 1 each Invisible Strip) DAILY DUSTIN Administration Prazosin HCl 2 mg 01/31/21 21:00 02/04/21 20:03 Prazosin Hcl 1 Mg Capsule PO 2 mg BEDTIME DUSTIN Administration Protocol Trazodone HCl 150 mg 01/31/21 15:01 02/04/21 20:04 Trazodone Hcl 50 Mg Tablet PO 150 mg BEDTIME PRN Administration Insomnia Ziprasidone 20 mg 02/04/21 21:00 02/05/21 10:28 Ziprasidone 20 Mg Capsule PO 20 mg BID DUSTIN Administration Allergies Allergies Allergy/AdvReac Type Severity Reaction Status Date / Time risperidone [From Risperdal] Allergy Mild gain weight Verified 01/28/21 18:59 aripiprazole [Abilify] Allergy Unknown gain weight Verified 01/28/21 18:59 paliperidone AdvReac dystonia Verified 01/29/21 09:42 Assessment & Plan Assessment & Plan (1) Cocaine use disorder, mild, abuse: Status: Acute Code(s): F14.10 - Cocaine abuse, uncomplicated Assessment and Plan: No adverse effects to this point it appears (2) Cannabis use disorder, moderate, dependence: Status: Acute Code(s): F12.20 - Cannabis dependence, uncomplicated (3) Bipolar 1 disorder: Status: Inactive Code(s): F31.9 - Bipolar disorder, unspecified Assessment and Plan: Continue Geodon 20 mg bid as pt reports relief of sx over the weekend. Will begin at bid and we may be able to taper to qd if sx extinguish. Greater than 50% of the session was spent on counseling and/or coordination of care Reason for contiued inpatient stay Substantial Risk for: harm to self, harm to others, inability to function and rapid decompensation
[2021-02-05 18:00] VITALS: BP 122/64; PULSE 56; TEMP 36.6
[2021-02-05] MEDS: Nicotine Polacrilex 2 MG GUM 4 MG BUCCAL (19:39)
[2021-02-05 20:45] VITALS: BP 122/64; PULSE 56
[2021-02-05] MEDS: Prazosin HCL 1 MG CAPSULE 2 MG PO (20:45)
[2021-02-05] MEDS: Melatonin 3 MG TABLET 6 MG PO (20:46)
[2021-02-05] MEDS: traZODone HCL 50 MG TABLET 150 MG PO (21:08)
[2021-02-05] MEDS: Milk of Magnesia 30 ML ORAL.SUSP PO (23:07)
[2021-02-06] MEDS: hydrOXYzine HCL 25 MG TABLET PO (01:17)
[2021-02-06 06:00] VITALS: BP 100/55; PULSE 59; RESP 16; TEMP 36.2; O2SAT 98
[2021-02-06] MEDS: Ziprasidone 20 MG CAPSULE PO ×2 (08:56→21:27)
[2021-02-06] MEDS: Multivitamin TABLET 1 TAB PO (08:56)
[2021-02-06] MEDS: Benztropine Mesylate 0.5 MG TABLET PO ×2 (08:56→21:28)
[2021-02-06] MEDS: Milk of Magnesia 30 ML ORAL.SUSP PO (11:18)
--- NOTE | 2021-02-06 16:46 | P.PNPSI_ITS ---
Subjective Subjective Date of Service: 02/06/21 Reason For Visit: Acute psychosis Subjective Notes: Conditional Voluntary Healthcare Proxy: No Guardianship: No Medical Problems Affecting Mental Status: No Interim History: Pt continues to report that Geodon is effective and without adverse effect. No voices. AIMS =0 today. Pt again is found in bed. She denies depressive sx, anx 4-5/10, depression 5/10, denies perceptual alterations, but when asked about this pattern states she awaits a decision about rehab and is quite anxious about this-staying in bed is a coping mechanism she describes. She is attending groups and is focusing her time when not in group on worry about where her rehab will be. Medication Compliance: Yes Side effects from medications: No Attending Groups: Yes Review of Systems Psychiatric: Reports anxiety, Reports depression and Reports difficulty concentrating Mental Status Exam Mental Status Exam Patient Appearance: Appropriate Patient Orientation: Person, Place, Time and Situation Level of Consciousness: Alert Patient Behavior: Appropriate, Talkative, Anxious, Fearful and Good Eye Contact Mood Description: Anxious Affect Description: Anxious Patient Cognition Impaired: No Ability to Follow Directions: Good Speech Pattern: Clear, Appropriate and Coherent Memory Description: Episodic Impaired Hallucinations: None Delusions: Not Present Thought Process: Goal Oriented Thought Content: positive for [place], positive for Circumstantial and positive for Goal Oriented Depressive Symptoms: Increased Anxiety Judgement: Fair Diagnostics Vital Signs (24Hr): Vital Signs - 24 hr 02/05/21 18:00 02/05/21 20:45 02/06/21 06:00 Temperature 98 F 97.2 F Pulse Rate 56 56 59 Respiratory Rate 16 Blood Pressure 122/64 122/64 100/55 L Pulse Oximetry 98 Body Mass Index 25.9 Labs Results: 01/28/21 19:06 01/28/21 19:07 Medications Medications Current Medications Generic Name Dose Route Start Last Admin Trade Name Freq PRN Reason Stop Dose Admin Acetaminophen 650 mg 01/29/21 00:15 Acetaminophen 325 Mg Tablet PO Q6H PRN Headache/Pain Mild Scale (1-3) Al Hydroxide/Mg Hydroxide 30 ml 01/29/21 00:15 Magnesium Hydrox/Alum Hydrox 30 Ml Oral.Susp PO Q6H PRN Heartburn/Nausea Benztropine Mesylate 0.5 mg 02/02/21 21:00 02/06/21 08:56 Benztropine Mesylate 0.5 Mg Tablet PO 0.5 mg BID DUSTIN Administration Diphenhydramine HCl 50 mg 02/02/21 11:56 Diphenhydramine Hcl 50 Mg/Ml Vial IM ONCE PRN dystonic reaction Hydroxyzine HCl 25 mg 01/29/21 00:15 02/06/21 01:17 Hydroxyzine Hcl 25 Mg Tablet PO 25 mg TID PRN Administration Anxiety Magnesium Hydroxide 30 ml 01/29/21 00:15 02/06/21 11:18 Milk Of Magnesia 30 Ml Oral.Susp PO 30 ml DAILY PRN Administration Constipation Melatonin 6 mg 01/31/21 21:00 02/05/21 20:46 Melatonin 3 Mg Tablet PO 6 mg BEDTIME DUSTIN Administration Multivitamins/Vitamin C 1 tab 02/02/21 11:40 02/06/21 08:56 Multivitamin Tablet PO 1 tab DAILY DUSTIN Administration Nicotine Polacrilex 4 mg 01/29/21 00:15 02/05/21 19:39 Nicotine Polacrilex 2 Mg Gum BUCCAL 4 mg Q2H PRN Administration Nicotine Cravings Patient Own Med ( 1 each 02/01/21 21:00 02/06/21 08:58 Compound W 17%) TOPICAL Not Given BID DUSTIN Pat Own Med ( 1 each 02/04/21 16:45 02/06/21 08:58 Compound W Accu- TOPICAL Not Given Freeze Freeze) DAILY DUSTIN Pt Own Med (Compound 1 each 02/06/21 09:00 02/06/21 11:27 W One Step TOPICAL 1 each Invisible Strip) DAILY DUSTIN Administration Prazosin HCl 2 mg 01/31/21 21:00 02/05/21 20:45 Prazosin Hcl 1 Mg Capsule PO 2 mg BEDTIME DUSTIN Administration Protocol Trazodone HCl 150 mg 01/31/21 15:01 02/05/21 21:08 Trazodone Hcl 50 Mg Tablet PO 150 mg BEDTIME PRN Administration Insomnia Ziprasidone 20 mg 02/04/21 21:00 02/06/21 08:56 Ziprasidone 20 Mg Capsule PO 20 mg BID DUSTIN Administration Allergies Allergies Allergy/AdvReac Type Severity Reaction Status Date / Time risperidone [From Risperdal] Allergy Mild gain weight Verified 01/28/21 18:59 aripiprazole [Abilify] Allergy Unknown gain weight Verified 01/28/21 18:59 paliperidone AdvReac dystonia Verified 01/29/21 09:42 Assessment & Plan Assessment & Plan (1) Cocaine use disorder, mild, abuse: Status: Acute Code(s): F14.10 - Cocaine abuse, uncomplicated Assessment and Plan: No adverse effects to this point it appears (2) Cannabis use disorder, moderate, dependence: Status: Acute Code(s): F12.20 - Cannabis dependence, uncomplicated (3) Bipolar 1 disorder: Status: Inactive Code(s): F31.9 - Bipolar disorder, unspecified Assessment and Plan: Continue Geodon 20 mg bid as pt reports relief of sx over the weekend. Will begin at bid and we may be able to taper to qd if sx extinguish. Greater than 50% of the session was spent on counseling and/or coordination of care Reason for contiued inpatient stay Substantial Risk for: harm to self, inability to function and rapid decompensation
[2021-02-06 21:20] VITALS: BP 106/67; PULSE 53; TEMP 36.2
[2021-02-06] MEDS: Melatonin 3 MG TABLET 6 MG PO (21:27)
[2021-02-06 21:28] VITALS: BP 106/67; PULSE 53
[2021-02-06] MEDS: Prazosin HCL 1 MG CAPSULE 2 MG PO (21:28)
[2021-02-06] MEDS: traZODone HCL 50 MG TABLET 150 MG PO (21:32)
[2021-02-07 06:20] VITALS: BP 97/53; PULSE 46; RESP 16; TEMP 36.2; O2SAT 99
[2021-02-07 07:00] VITALS: BMI 27.2
[2021-02-07] MEDS: Multivitamin TABLET 1 TAB PO (09:02)
[2021-02-07] MEDS: Ziprasidone 20 MG CAPSULE PO (09:02)
[2021-02-07] MEDS: Benztropine Mesylate 0.5 MG TABLET PO ×2 (09:03→21:16)
--- NOTE | 2021-02-07 16:54 | HO.PSYCHPN ---
Subjective Subjective Date of Service: 02/07/21 Reason For Visit: Acute psychosis Subjective Notes: Conditional Voluntary Healthcare Proxy: No Guardianship: No Medical Problems Affecting Mental Status: No Interim History: Review of medication list and rationale for prescriptions. Reports Glendy is helping-however, after a few days, not strong enough, with auditory perceptual alterations still present. Discussed titration which pt is interested in prior to discharge so I will have support in case of a side effect. Pt today is up, in milieu groups, appears more engaged and active with peers and team. She reports feeling anxious about the next step in her care but is excited to work in rehab on substance abuse patterns. Medication Compliance: Yes Side effects from medications: No Attending Groups: Yes Review of Systems Psychiatric: Reports anxiety, Reports depression, Reports difficulty concentrating, Reports auditory hallucinations, Reports mood swings, Reports paranoia and Reports hallucinations Mental Status Exam Mental Status Exam Patient Appearance: Appropriate Patient Orientation: Person, Place, Time and Situation Level of Consciousness: Alert Patient Behavior: Appropriate, Talkative, Cooperative and Good Eye Contact Mood Description: Depressed and Anxious Affect Description: Flat Patient Cognition Impaired: No Ability to Follow Directions: Good Speech Pattern: Spontaneous Speech and Soft-Spoken Memory Description: Intact Hallucinations: Auditory Delusions: Paranoid Ideation Thought Process: Distracted, Rumination and Goal Oriented Thought Content: positive for Goal Oriented and positive for [place] Depressive Symptoms: Increased Anxiety, Diff. Making Decisions and Low Self Esteem Judgement: Good Diagnostics Vital Signs (24Hr): Vital Signs - 24 hr 02/06/21 21:20 02/06/21 21:28 02/07/21 06:20 Temperature 97.2 F 97.1 F Pulse Rate 53 53 46 L Respiratory Rate 16 Blood Pressure 106/67 106/67 97/53 L Pulse Oximetry 99 Body Mass Index 27.2 Labs Results: 01/28/21 19:06 01/28/21 19:07 Medications Medications Current Medications Generic Name Dose Route Start Last Admin Trade Name Freq PRN Reason Stop Dose Admin Acetaminophen 650 mg 01/29/21 00:15 Acetaminophen 325 Mg Tablet PO Q6H PRN Headache/Pain Mild Scale (1-3) Al Hydroxide/Mg Hydroxide 30 ml 01/29/21 00:15 Magnesium Hydrox/Alum Hydrox 30 Ml Oral.Susp PO Q6H PRN Heartburn/Nausea Benztropine Mesylate 0.5 mg 02/02/21 21:00 02/07/21 09:03 Benztropine Mesylate 0.5 Mg Tablet PO 0.5 mg BID DUSTIN Administration Diphenhydramine HCl 50 mg 02/02/21 11:56 Diphenhydramine Hcl 50 Mg/Ml Vial IM ONCE PRN dystonic reaction Hydroxyzine HCl 25 mg 01/29/21 00:15 02/06/21 01:17 Hydroxyzine Hcl 25 Mg Tablet PO 25 mg TID PRN Administration Anxiety Magnesium Hydroxide 30 ml 01/29/21 00:15 02/06/21 11:18 Milk Of Magnesia 30 Ml Oral.Susp PO 30 ml DAILY PRN Administration Constipation Melatonin 6 mg 01/31/21 21:00 02/06/21 21:27 Melatonin 3 Mg Tablet PO 6 mg BEDTIME DUSTIN Administration Multivitamins/Vitamin C 1 tab 02/02/21 11:40 02/07/21 09:02 Multivitamin Tablet PO 1 tab DAILY DUSTIN Administration Nicotine Polacrilex 4 mg 01/29/21 00:15 02/05/21 19:39 Nicotine Polacrilex 2 Mg Gum BUCCAL 4 mg Q2H PRN Administration Nicotine Cravings Patient Own Med ( 1 each 02/01/21 21:00 02/07/21 12:44 Compound W 17%) TOPICAL Not Given BID DUSTIN Pat Own Med ( 1 each 02/04/21 16:45 02/07/21 12:43 Compound W Accu- TOPICAL Not Given Freeze Freeze) DAILY DUSTIN Pt Own Med (Compound 1 each 02/06/21 09:00 02/06/21 11:27 W One Step TOPICAL 1 each Invisible Strip) DAILY DUSTIN Administration Prazosin HCl 2 mg 01/31/21 21:00 02/06/21 21:28 Prazosin Hcl 1 Mg Capsule PO 2 mg BEDTIME DUSTIN Administration Protocol Trazodone HCl 150 mg 01/31/21 15:01 02/06/21 21:32 Trazodone Hcl 50 Mg Tablet PO 150 mg BEDTIME PRN Administration Insomnia Ziprasidone 20 mg 02/08/21 09:00 Ziprasidone 20 Mg Capsule PO DAILY DUSTIN Ziprasidone 40 mg 02/07/21 21:00 Ziprasidone 40 Mg Capsule PO BEDTIME DUSTIN Allergies Allergies Allergy/AdvReac Type Severity Reaction Status Date / Time risperidone [From Risperdal] Allergy Mild gain weight Verified 01/28/21 18:59 aripiprazole [Abilify] Allergy Unknown gain weight Verified 01/28/21 18:59 paliperidone AdvReac dystonia Verified 01/29/21 09:42 Assessment & Plan Assessment & Plan (1) Cocaine use disorder, mild, abuse: Status: Acute Code(s): F14.10 - Cocaine abuse, uncomplicated Assessment and Plan: No adverse effects to this point it appears (2) Cannabis use disorder, moderate, dependence: Status: Acute Code(s): F12.20 - Cannabis dependence, uncomplicated (3) Bipolar 1 disorder: Status: Inactive Code(s): F31.9 - Bipolar disorder, unspecified Assessment and Plan: Pt continues to have some breakthrough sx with Geodon 40 mg. We will increase to 20 mg a.m. 40 mg HS and continue to monitor for SE. Greater than 50% of the session was spent on counseling and/or coordination of care Reason for contiued inpatient stay Substantial Risk for: harm to self, inability to function and rapid decompensation
[2021-02-07 18:00] VITALS: BP 90/58; PULSE 64; TEMP 36.9
[2021-02-07 21:15] VITALS: BP 111/67; PULSE 78
[2021-02-07] MEDS: Ziprasidone 40 MG CAPSULE PO (21:15)
[2021-02-07] MEDS: Prazosin HCL 1 MG CAPSULE 2 MG PO (21:15)
[2021-02-07] MEDS: Melatonin 3 MG TABLET 6 MG PO (21:16)
[2021-02-07] MEDS: traZODone HCL 50 MG TABLET 150 MG PO (21:17)
[2021-02-08 06:00] VITALS: RESP 16
[2021-02-08] MEDS: Ziprasidone 20 MG CAPSULE PO (08:48)
[2021-02-08] MEDS: Multivitamin TABLET 1 TAB PO (08:48)
[2021-02-08] MEDS: Benztropine Mesylate 0.5 MG TABLET PO ×2 (08:48→20:19)
--- NOTE | 2021-02-08 16:31 | HO.PSYCHPN ---
Subjective Subjective Date of Service: 02/08/21 Reason For Visit: Acute psychosis Subjective Notes: Conditional Voluntary Healthcare Proxy: No Guardianship: No Medical Problems Affecting Mental Status: No Interim History: Tolerating Geodon increase. Denies SE. Reports she is feeling tired today as she took Trazodone too late last evening. Medication Compliance: Yes Side effects from medications: No Attending Groups: Intermittent Review of Systems Psychiatric: Reports anxiety, Reports depression, Reports auditory hallucinations and Reports mood swings Mental Status Exam Mental Status Exam Patient Appearance: Appropriate Patient Orientation: Person, Place, Time and Situation Level of Consciousness: Awake and Alert Patient Behavior: Appropriate, Talkative and Cooperative Mood Description: Withdrawn and Constricted Affect Description: Withdrawn Patient Cognition Impaired: No Ability to Follow Directions: Good Speech Pattern: Clear, Appropriate and Spontaneous Speech Memory Description: Intact Hallucinations: Auditory Delusions: Not Present Thought Process: Distracted and Rumination Thought Content: positive for [place] and positive for Circumstantial Depressive Symptoms: Increased Anxiety, Diff. Making Decisions and Low Self Esteem Judgement: Fair Diagnostics Vital Signs (24Hr): Vital Signs - 24 hr 02/07/21 18:00 02/07/21 21:15 02/08/21 06:00 Temperature 98.4 F Pulse Rate 64 78 Respiratory Rate 16 Blood Pressure 90/58 L 111/67 Body Mass Index 27.2 Labs Results: 01/28/21 19:06 01/28/21 19:07 Medications Medications Current Medications Generic Name Dose Route Start Last Admin Trade Name Freq PRN Reason Stop Dose Admin Acetaminophen 650 mg 01/29/21 00:15 Acetaminophen 325 Mg Tablet PO Q6H PRN Headache/Pain Mild Scale (1-3) Al Hydroxide/Mg Hydroxide 30 ml 01/29/21 00:15 Magnesium Hydrox/Alum Hydrox 30 Ml Oral.Susp PO Q6H PRN Heartburn/Nausea Benztropine Mesylate 0.5 mg 02/02/21 21:00 02/08/21 08:48 Benztropine Mesylate 0.5 Mg Tablet PO 0.5 mg BID DUSTIN Administration Diphenhydramine HCl 50 mg 02/02/21 11:56 Diphenhydramine Hcl 50 Mg/Ml Vial IM ONCE PRN dystonic reaction Hydroxyzine HCl 25 mg 01/29/21 00:15 02/06/21 01:17 Hydroxyzine Hcl 25 Mg Tablet PO 25 mg TID PRN Administration Anxiety Magnesium Hydroxide 30 ml 01/29/21 00:15 02/06/21 11:18 Milk Of Magnesia 30 Ml Oral.Susp PO 30 ml DAILY PRN Administration Constipation Melatonin 6 mg 01/31/21 21:00 02/07/21 21:16 Melatonin 3 Mg Tablet PO 6 mg BEDTIME DUSTIN Administration Multivitamins/Vitamin C 1 tab 02/02/21 11:40 02/08/21 08:48 Multivitamin Tablet PO 1 tab DAILY DUSTIN Administration Nicotine Polacrilex 4 mg 01/29/21 00:15 02/05/21 19:39 Nicotine Polacrilex 2 Mg Gum BUCCAL 4 mg Q2H PRN Administration Nicotine Cravings Patient Own Med ( 1 each 02/01/21 21:00 02/08/21 10:01 Compound W 17%) TOPICAL Not Given BID DUSTIN Pat Own Med ( 1 each 02/04/21 16:45 02/08/21 10:01 Compound W Accu- TOPICAL Not Given Freeze Freeze) DAILY DUSTIN Pt Own Med (Compound 1 each 02/06/21 09:00 02/06/21 11:27 W One Step TOPICAL 1 each Invisible Strip) DAILY DUSTIN Administration Prazosin HCl 2 mg 01/31/21 21:00 02/07/21 21:15 Prazosin Hcl 1 Mg Capsule PO 2 mg BEDTIME DUSTIN Administration Protocol Trazodone HCl 150 mg 01/31/21 15:01 02/07/21 21:17 Trazodone Hcl 50 Mg Tablet PO 150 mg BEDTIME PRN Administration Insomnia Ziprasidone 20 mg 02/08/21 09:00 02/08/21 08:48 Ziprasidone 20 Mg Capsule PO 20 mg DAILY DUSTIN Administration Ziprasidone 40 mg 02/07/21 21:00 02/07/21 21:15 Ziprasidone 40 Mg Capsule PO 40 mg BEDTIME DUSTIN Administration Allergies Allergies Allergy/AdvReac Type Severity Reaction Status Date / Time risperidone [From Risperdal] Allergy Mild gain weight Verified 01/28/21 18:59 aripiprazole [Abilify] Allergy Unknown gain weight Verified 01/28/21 18:59 paliperidone AdvReac dystonia Verified 01/29/21 09:42 Assessment & Plan Assessment & Plan (1) Cocaine use disorder, mild, abuse: Status: Acute Code(s): F14.10 - Cocaine abuse, uncomplicated (2) Cannabis use disorder, moderate, dependence: Status: Acute Code(s): F12.20 - Cannabis dependence, uncomplicated (3) Bipolar 1 disorder: Status: Inactive Code(s): F31.9 - Bipolar disorder, unspecified Assessment and Plan: Continue Geodon 20 mg a.m. 40 mg p.m. Greater than 50% of the session was spent on counseling and/or coordination of care Reason for contiued inpatient stay Substantial Risk for: harm to self, inability to function and rapid decompensation
[2021-02-08 18:00] VITALS: BP 117/73; PULSE 79; TEMP 36.9
[2021-02-08 20:19] VITALS: BP 104/71; PULSE 102
[2021-02-08] MEDS: Prazosin HCL 1 MG CAPSULE 2 MG PO (20:19)
[2021-02-08] MEDS: Melatonin 3 MG TABLET 6 MG PO (20:19)
[2021-02-08] MEDS: Ziprasidone 40 MG CAPSULE PO (20:22)
[2021-02-08] MEDS: traZODone HCL 50 MG TABLET 150 MG PO (20:22)
[2021-02-09 06:00] VITALS: BP 87/59; PULSE 60; RESP 16; TEMP 36.3; O2SAT 98
[2021-02-09] MEDS: Multivitamin TABLET 1 TAB PO (08:26)
[2021-02-09] MEDS: Benztropine Mesylate 0.5 MG TABLET PO ×2 (08:26→20:18)
[2021-02-09] MEDS: Ziprasidone 20 MG CAPSULE PO (08:26)
--- NOTE | 2021-02-09 10:09 | HO.PSYCHPN ---
Subjective Subjective Date of Service: 02/09/21 Reason For Visit: Acute psychosis Subjective Notes: Conditional Voluntary Healthcare Proxy: No Guardianship: No Medical Problems Affecting Mental Status: No Interim History: In room 505 due to irritability with room mate hoping to go to rehab or AA meetings on dc Medication Compliance: Yes Side effects from medications: No Attending Groups: Yes Review of Systems Review of Systems no physical complaints Mental Status Exam Mental Status Exam Narrative: lying in dark room, cooperative flat affect Patient Appearance: Appropriate Patient Orientation: Person, Place and Situation Level of Consciousness: Awake Patient Behavior: Cooperative and Passive Mood Description: Withdrawn Affect Description: Flat Patient Cognition Impaired: No Ability to Follow Directions: Fair Speech Pattern: Impoverished Hallucinations: None Delusions: Paranoid Ideation Thought Process: Intact and Slowed Thinking Thought Content: positive for [place] and positive for [place] Depressive Symptoms: Diff. Making Decisions Judgement: Fair Diagnostics Vital Signs (24Hr): Vital Signs - 24 hr 02/08/21 18:00 02/08/21 20:19 02/09/21 06:00 Temperature 98.4 F 97.4 F Pulse Rate 79 102 H 60 Respiratory Rate 16 Blood Pressure 117/73 104/71 87/59 L Pulse Oximetry 98 Body Mass Index 27.2 Labs Results: 01/28/21 19:06 01/28/21 19:07 Medications Medications Current Medications Generic Name Dose Route Start Last Admin Trade Name Freq PRN Reason Stop Dose Admin Acetaminophen 650 mg 01/29/21 00:15 Acetaminophen 325 Mg Tablet PO Q6H PRN Headache/Pain Mild Scale (1-3) Al Hydroxide/Mg Hydroxide 30 ml 01/29/21 00:15 Magnesium Hydrox/Alum Hydrox 30 Ml Oral.Susp PO Q6H PRN Heartburn/Nausea Benztropine Mesylate 0.5 mg 02/02/21 21:00 02/09/21 08:26 Benztropine Mesylate 0.5 Mg Tablet PO 0.5 mg BID DUSTIN Administration Diphenhydramine HCl 50 mg 02/02/21 11:56 Diphenhydramine Hcl 50 Mg/Ml Vial IM ONCE PRN dystonic reaction Hydroxyzine HCl 25 mg 01/29/21 00:15 02/06/21 01:17 Hydroxyzine Hcl 25 Mg Tablet PO 25 mg TID PRN Administration Anxiety Magnesium Hydroxide 30 ml 01/29/21 00:15 02/06/21 11:18 Milk Of Magnesia 30 Ml Oral.Susp PO 30 ml DAILY PRN Administration Constipation Melatonin 6 mg 01/31/21 21:00 02/08/21 20:19 Melatonin 3 Mg Tablet PO 6 mg BEDTIME DUSTIN Administration Multivitamins/Vitamin C 1 tab 02/02/21 11:40 02/09/21 08:26 Multivitamin Tablet PO 1 tab DAILY DUSTIN Administration Nicotine Polacrilex 4 mg 01/29/21 00:15 02/05/21 19:39 Nicotine Polacrilex 2 Mg Gum BUCCAL 4 mg Q2H PRN Administration Nicotine Cravings Patient Own Med ( 1 each 02/01/21 21:00 02/09/21 08:31 Compound W 17%) TOPICAL Not Given BID DUSTIN Pat Own Med ( 1 each 02/04/21 16:45 02/09/21 08:31 Compound W Accu- TOPICAL Not Given Freeze Freeze) DAILY DUSTIN Pt Own Med (Compound 1 each 02/06/21 09:00 02/09/21 09:36 W One Step TOPICAL Not Given Invisible Strip) DAILY DUSTIN Prazosin HCl 2 mg 01/31/21 21:00 02/08/21 20:19 Prazosin Hcl 1 Mg Capsule PO 2 mg BEDTIME DUSTIN Administration Protocol Trazodone HCl 150 mg 01/31/21 15:01 02/08/21 20:22 Trazodone Hcl 50 Mg Tablet PO 150 mg BEDTIME PRN Administration Insomnia Ziprasidone 20 mg 02/08/21 09:00 02/09/21 08:26 Ziprasidone 20 Mg Capsule PO 20 mg DAILY DUSTIN Administration Ziprasidone 40 mg 02/07/21 21:00 02/08/21 20:22 Ziprasidone 40 Mg Capsule PO 40 mg BEDTIME DUSTIN Administration Allergies Allergies Allergy/AdvReac Type Severity Reaction Status Date / Time risperidone [From Risperdal] Allergy Mild gain weight Verified 01/28/21 18:59 aripiprazole [Abilify] Allergy Unknown gain weight Verified 01/28/21 18:59 paliperidone AdvReac dystonia Verified 01/29/21 09:42 Assessment & Plan Assessment & Plan (1) Cocaine use disorder, mild, abuse: Status: Acute Code(s): F14.10 - Cocaine abuse, uncomplicated Assessment and Plan: denies cravings (2) Cannabis use disorder, moderate, dependence: Status: Acute Code(s): F12.20 - Cannabis dependence, uncomplicated (3) Bipolar 1 disorder: Status: Inactive Code(s): F31.9 - Bipolar disorder, unspecified Assessment and Plan: Continue Geodon 20 mg a.m. 40 mg p.m. appears to continue guarded/wtihdrawn but positively focused on future Greater than 50% of the session was spent on counseling and/or coordination of care Reason for contiued inpatient stay Substantial Risk for: inability to function and rapid decompensation
[2021-02-09] MEDS: Acetaminophen 325 MG TABLET 650 MG PO (11:58)
[2021-02-09] MEDS: Nicotine Polacrilex 2 MG GUM 4 MG BUCCAL (14:52)
[2021-02-09 18:00] VITALS: BP 106/57; PULSE 118; TEMP 36.3
[2021-02-09] MEDS: Melatonin 3 MG TABLET 6 MG PO (20:18)
[2021-02-09] MEDS: Ziprasidone 40 MG CAPSULE PO (20:18)
[2021-02-09] MEDS: traZODone HCL 50 MG TABLET 150 MG PO (20:18)
[2021-02-09] MEDS: Milk of Magnesia 30 ML ORAL.SUSP PO (20:19)
[2021-02-09 20:22] VITALS: BP 101/56; PULSE 78
[2021-02-10 06:00] VITALS: BP 84/60; PULSE 114; TEMP 36.4; O2SAT 98
[2021-02-10] MEDS: Ziprasidone 20 MG CAPSULE PO (08:15)
[2021-02-10] MEDS: Benztropine Mesylate 0.5 MG TABLET PO ×2 (08:15→21:06)
[2021-02-10] MEDS: Multivitamin TABLET 1 TAB PO (08:15)
--- NOTE | 2021-02-10 12:28 | P.PNPSI_ITS ---
Subjective Subjective Date of Service: 02/10/21 Reason For Visit: Acute psychosis Subjective Notes: Conditional Voluntary Healthcare Proxy: No Guardianship: No Medical Problems Affecting Mental Status: No Medication Compliance: Yes Side effects from medications: No Attending Groups: Intermittent Review of Systems Medical Review of Systems: unchanged Mental Status Exam Mental Status Exam Narrative: pt lying in dark isolated room, listening to radio has appearance of deer in head lights/ Patient Appearance: Appropriate Patient Orientation: Person, Place, Time and Situation Level of Consciousness: Awake Patient Behavior: Avoidant and Isolative Mood Description: Apathetic Affect Description: Flat Patient Cognition Impaired: No Ability to Follow Directions: Fair Speech Pattern: Impoverished Hallucinations: None Thought Process: Intact and Slowed Thinking Thought Content: positive for [place] and positive for Poverty of Content Judgement: Fair Diagnostics Vital Signs (24Hr): Vital Signs - 24 hr 02/09/21 18:00 02/09/21 20:22 02/10/21 06:00 Temperature 97.3 F 97.6 F Pulse Rate 118 H 78 114 H Blood Pressure 106/57 L 101/56 L 84/60 L Pulse Oximetry 98 Body Mass Index 27.2 Labs Results: 01/28/21 19:06 01/28/21 19:07 Medications Medications Current Medications Generic Name Dose Route Start Last Admin Trade Name Freq PRN Reason Stop Dose Admin Acetaminophen 650 mg 01/29/21 00:15 02/09/21 11:58 Acetaminophen 325 Mg Tablet PO 650 mg Q6H PRN Administration Headache/Pain Mild Scale (1-3) Al Hydroxide/Mg Hydroxide 30 ml 01/29/21 00:15 Magnesium Hydrox/Alum Hydrox 30 Ml Oral.Susp PO Q6H PRN Heartburn/Nausea Benztropine Mesylate 0.5 mg 02/02/21 21:00 02/10/21 08:15 Benztropine Mesylate 0.5 Mg Tablet PO 0.5 mg BID DUSTIN Administration Diphenhydramine HCl 50 mg 02/02/21 11:56 Diphenhydramine Hcl 50 Mg/Ml Vial IM ONCE PRN dystonic reaction Hydroxyzine HCl 25 mg 01/29/21 00:15 02/06/21 01:17 Hydroxyzine Hcl 25 Mg Tablet PO 25 mg TID PRN Administration Anxiety Magnesium Hydroxide 30 ml 01/29/21 00:15 02/09/21 20:19 Milk Of Magnesia 30 Ml Oral.Susp PO 30 ml DAILY PRN Administration Constipation Melatonin 6 mg 01/31/21 21:00 02/09/21 20:18 Melatonin 3 Mg Tablet PO 6 mg BEDTIME DUSTIN Administration Multivitamins/Vitamin C 1 tab 02/02/21 11:40 02/10/21 08:15 Multivitamin Tablet PO 1 tab DAILY DUSTIN Administration Nicotine Polacrilex 4 mg 01/29/21 00:15 02/09/21 14:52 Nicotine Polacrilex 2 Mg Gum BUCCAL 4 mg Q2H PRN Administration Nicotine Cravings Patient Own Med ( 1 each 02/01/21 21:00 02/10/21 08:16 Compound W 17%) TOPICAL Not Given BID DUSTIN Pat Own Med ( 1 each 02/04/21 16:45 02/10/21 08:15 Compound W Accu- TOPICAL Not Given Freeze Freeze) DAILY DUSTIN Pt Own Med (Compound 1 each 02/06/21 09:00 02/10/21 08:16 W One Step TOPICAL Not Given Invisible Strip) DAILY DUSTIN Prazosin HCl 2 mg 01/31/21 21:00 02/09/21 20:22 Prazosin Hcl 1 Mg Capsule PO Not Given BEDTIME DUSTIN Protocol Trazodone HCl 150 mg 01/31/21 15:01 02/09/21 20:18 Trazodone Hcl 50 Mg Tablet PO 150 mg BEDTIME PRN Administration Insomnia Ziprasidone 20 mg 02/08/21 09:00 02/10/21 08:15 Ziprasidone 20 Mg Capsule PO 20 mg DAILY DUSTIN Administration Ziprasidone 40 mg 02/07/21 21:00 02/09/21 20:18 Ziprasidone 40 Mg Capsule PO 40 mg BEDTIME DUSTIN Administration Allergies Allergies Allergy/AdvReac Type Severity Reaction Status Date / Time risperidone [From Risperdal] Allergy Mild gain weight Verified 01/28/21 18:59 aripiprazole [Abilify] Allergy Unknown gain weight Verified 01/28/21 18:59 paliperidone AdvReac dystonia Verified 01/29/21 09:42 Assessment & Plan Assessment & Plan (1) Cocaine use disorder, mild, abuse: Status: Acute Code(s): F14.10 - Cocaine abuse, uncomplicated Assessment and Plan: denies cravings (2) Cannabis use disorder, moderate, dependence: Status: Acute Code(s): F12.20 - Cannabis dependence, uncomplicated (3) Depression: Status: Acute Code(s): F32.9 - Major depressive disorder, single episode, unspecified Assessment and Plan: r/o prodromal schiz vs substance induced psychosis Greater than 50% of the session was spent on counseling and/or coordination of care Reason for contiued inpatient stay Substantial Risk for: rapid decompensation
[2021-02-10 18:00] VITALS: BP 96/51; PULSE 51; TEMP 35.9
[2021-02-10 21:06] VITALS: BP 102/61; PULSE 65
[2021-02-10] MEDS: Melatonin 3 MG TABLET 6 MG PO (21:06)
[2021-02-10] MEDS: Prazosin HCL 1 MG CAPSULE 2 MG PO (21:06)
[2021-02-10] MEDS: Ziprasidone 40 MG CAPSULE PO (21:07)
[2021-02-11 06:00] VITALS: BP 99/55; PULSE 68; TEMP 36.3
[2021-02-11] MEDS: Ziprasidone 20 MG CAPSULE PO (08:48)
[2021-02-11] MEDS: Benztropine Mesylate 0.5 MG TABLET PO ×2 (08:48→20:50)
[2021-02-11] MEDS: Multivitamin TABLET 1 TAB PO (08:49)
--- NOTE | 2021-02-11 09:00 | ECG_ITS ---
Test Reason : GEODON TITRATION Blood Pressure : / mmHG Vent. Rate : 054 BPM Atrial Rate : 054 BPM P-R Int : 166 ms QRS Dur : 086 ms QT Int : 410 ms P-R-T Axes : 035 069 033 degrees QTc Int : 388 ms Sinus bradycardia Otherwise normal ECG When compared with ECG of 01-FEB-2021 11:04, No significant change was found Referred By: Zee Washington Electronically Signed By:Basil Albarran
[2021-02-11] MEDS: Nicotine Polacrilex 2 MG GUM 4 MG BUCCAL (12:36)
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
[2021-02-11 18:00] VITALS: PULSE 107; TEMP 36.4
[2021-02-11 20:49] VITALS: BP 123/73; PULSE 107
[2021-02-11] MEDS: Prazosin HCL 1 MG CAPSULE 2 MG PO (20:49)
[2021-02-11] MEDS: traZODone HCL 50 MG TABLET 150 MG PO (20:50)
[2021-02-11] MEDS: hydrOXYzine HCL 25 MG TABLET PO (20:50)
[2021-02-11] MEDS: Ziprasidone 40 MG CAPSULE PO (20:50)
[2021-02-11] MEDS: Melatonin 3 MG TABLET 6 MG PO (20:50)
[2021-02-12] MEDS: Benztropine Mesylate 0.5 MG TABLET PO ×2 (09:23→21:32)
[2021-02-12] MEDS: Ziprasidone 20 MG CAPSULE PO (09:23)
[2021-02-12] MEDS: Multivitamin TABLET 1 TAB PO (09:23)
--- NOTE | 2021-02-12 13:30 | P.PNPSI_ITS ---
Subjective Subjective Date of Service: 02/12/21 Reason For Visit: Acute psychosis Subjective Notes: Conditional Voluntary Healthcare Proxy: No Guardianship: No Medical Problems Affecting Mental Status: No Interim History: Desi reports she feels prepared to discharge and approach her next goal of substance abuse rehab. Today she is having a conflict with her mother. Her grandmother is visiting and pt reports she has asked her grandmother to provide her transportation for discharge on 02/13. Offered pt to remain and we could schedule a meeting with herself, mother, grandmother on 02/14. She declines. Pt appears upset at times with expression of loud dialogue, yelling, crying to express herself to grandmother. She calms easily, is able to focus, is non-psychotic. These sx appear to be developmental/situational vs psychotic or manic in origin. Medication Compliance: Yes Side effects from medications: No (denies) Attending Groups: Intermittent Review of Systems Reports behavioral changes Psychiatric: Reports anxiety, Reports behavioral changes, Reports irritability, Reports mood swings and Reports suicidal ideation (denies) Mental Status Exam Mental Status Exam Patient Appearance: Appropriate Patient Orientation: Person, Place, Time and Situation Level of Consciousness: Alert Patient Behavior: Talkative, Cooperative, Anxious and Good Eye Contact Mood Description: Labile Affect Description: Labile Patient Cognition Impaired: No Ability to Follow Directions: Good Speech Pattern: Spontaneous Speech Memory Description: Episodic Impaired Hallucinations: None (denies) Delusions: Not Present Thought Process: Goal Oriented Thought Content: positive for Circumstantial Depressive Symptoms: Increased Irritability and Thoughts of /Suicide (denies) Abnormal Motor Activity Signs and Symptoms: Restlessness Judgement: Good Diagnostics Vital Signs (24Hr): Vital Signs - 24 hr 02/11/21 18:00 02/11/21 20:49 Temperature 97.6 F Pulse Rate 107 H 107 H Blood Pressure 123/73 Body Mass Index 27.2 Labs Results: 01/28/21 19:06 01/28/21 19:07 Medications Medications Current Medications Generic Name Dose Route Start Last Admin Trade Name Freq PRN Reason Stop Dose Admin Acetaminophen 650 mg 01/29/21 00:15 02/09/21 11:58 Acetaminophen 325 Mg Tablet PO 650 mg Q6H PRN Administration Headache/Pain Mild Scale (1-3) Al Hydroxide/Mg Hydroxide 30 ml 01/29/21 00:15 Magnesium Hydrox/Alum Hydrox 30 Ml Oral.Susp PO Q6H PRN Heartburn/Nausea Benztropine Mesylate 0.5 mg 02/02/21 21:00 02/12/21 09:23 Benztropine Mesylate 0.5 Mg Tablet PO 0.5 mg BID DUSTIN Administration Diphenhydramine HCl 50 mg 02/02/21 11:56 Diphenhydramine Hcl 50 Mg/Ml Vial IM ONCE PRN dystonic reaction Hydroxyzine HCl 25 mg 01/29/21 00:15 02/11/21 20:50 Hydroxyzine Hcl 25 Mg Tablet PO 25 mg TID PRN Administration Anxiety Magnesium Hydroxide 30 ml 01/29/21 00:15 02/09/21 20:19 Milk Of Magnesia 30 Ml Oral.Susp PO 30 ml DAILY PRN Administration Constipation Melatonin 6 mg 01/31/21 21:00 02/11/21 20:50 Melatonin 3 Mg Tablet PO 6 mg BEDTIME DUSTIN Administration Multivitamins/Vitamin C 1 tab 02/02/21 11:40 02/12/21 09:23 Multivitamin Tablet PO 1 tab DAILY DUSTIN Administration Nicotine Polacrilex 4 mg 01/29/21 00:15 02/11/21 12:36 Nicotine Polacrilex 2 Mg Gum BUCCAL 4 mg Q2H PRN Administration Nicotine Cravings Patient Own Med ( 1 each 02/01/21 21:00 02/12/21 09:12 Compound W 17%) TOPICAL Not Given BID DUSTIN Pat Own Med ( 1 each 02/04/21 16:45 02/12/21 09:11 Compound W Accu- TOPICAL Not Given Freeze Freeze) DAILY [facility] Pt Own Med (Compound 1 each 02/06/21 09:00 02/12/21 09:12 W One Step TOPICAL Not Given Invisible Strip) DAILY [facility] Prazosin HCl 2 mg 01/31/21 21:00 02/11/21 20:49 Prazosin Hcl 1 Mg Capsule PO 2 mg BEDTIME DUSTIN Administration Protocol Trazodone HCl 150 mg 01/31/21 15:01 02/11/21 20:50 Trazodone Hcl 50 Mg Tablet PO 150 mg BEDTIME PRN Administration Insomnia Ziprasidone 20 mg 02/08/21 09:00 02/12/21 09:23 Ziprasidone 20 Mg Capsule PO 20 mg DAILY DUSTIN Administration Ziprasidone 40 mg 02/07/21 21:00 02/11/21 20:50 Ziprasidone 40 Mg Capsule PO 40 mg BEDTIME DUSTIN Administration Allergies Allergies Allergy/AdvReac Type Severity Reaction Status Date / Time risperidone [From Risperdal] Allergy Mild gain weight Verified 01/28/21 18:59 aripiprazole [Abilify] Allergy Unknown gain weight Verified 01/28/21 18:59 paliperidone AdvReac dystonia Verified 01/29/21 09:42 Assessment & Plan Assessment & Plan (1) Cocaine use disorder, mild, abuse: Status: Acute Code(s): F14.10 - Cocaine abuse, uncomplicated (2) Cannabis use disorder, moderate, dependence: Status: Acute Code(s): F12.20 - Cannabis dependence, uncomplicated Assessment and Plan: -rehabilitation planned post discharge (3) Depression, major, recurrent, severe with psychosis: Status: Acute Code(s): F33.3 - Major depressive disorder, recurrent, severe with psychotic symptoms Assessment and Plan: Geodon titration tolerated thus far without SE Greater than 50% of the session was spent on counseling and/or coordination of care Reason for contiued inpatient stay Substantial Risk for: harm to self, inability to function and rapid decompensation
[2021-02-12 17:48] VITALS: RESP 16
[2021-02-12] MEDS: Melatonin 3 MG TABLET 6 MG PO (21:32)
[2021-02-12] MEDS: Ziprasidone 40 MG CAPSULE PO (21:32)
[2021-02-12] MEDS: traZODone HCL 50 MG TABLET 150 MG PO (21:38)
[2021-02-12 21:40] VITALS: BP 94/54; PULSE 76
[2021-02-12] MEDS: Acetaminophen 325 MG TABLET 650 MG PO (22:55)
[2021-02-13] MEDS: Multivitamin TABLET 1 TAB PO (08:43)
[2021-02-13] MEDS: Ziprasidone 20 MG CAPSULE PO (08:43)
[2021-02-13] MEDS: Benztropine Mesylate 0.5 MG TABLET PO (08:43)
--- NOTE | 2021-02-13 10:23 | PC.NURSE ---
Pt is aware and ready for discharge. Educated with medication, coping skills and discharge planning. Pt denies SI/HI, denies auditory and visual hallucinations. In her room most of the time but does participate in some groups. Compliant with meds. Pt taking a shower daily, eating good and sleeping well. Mood and affect appear flat. Appointments have been made and discharge paperwork will be faxed per protocol.
--- NOTE | 2021-02-25 11:09 | P.DS_ITS ---
DS: Providers Provider Date of Service: 02/13/21 Date of admission: 01/29/21 01:00 Date of discharge: 02/13/21 Primary care physician: Latha Caputo NP Admitting clinician: Zee Washington Attending physician on admission: Zeferino Gentile Consults: 02/11/21 12:55 Consult to Hospitalist Routine Consulting Provider: Hospitalist Reason For Exam: Vaginal Cyst-pt reporting pain, pruritus 02/11/21 14:29 Consult to Obstetrics / Gynecology Routine Consulting Provider: Herminio Padilla Reason for consultation: Vaginal Cyst,increased size, pain, pruritus Has provider been notified: No Attending physician on discharge: Zeferino Gentile Discharging clinician: Zee Washington DS: Diagnosis Discharge Diagnosis (1) Cocaine use disorder, mild, abuse: Status: Acute (2) Cannabis use disorder, moderate, dependence: Status: Acute (3) Depression, major, recurrent, severe with psychosis: Status: Acute DS: Medications Discharge Medications Home Medications: Home Medications Medication Instructions Recorded Confirmed multivitamin [Daily-Nevaeh] 1 tab PO DAILY 02/24/21 02/24/21 Previous Rx's Medication Instructions Recorded benztropine 1 mg PO BID #30 tab 02/12/21 melatonin 6 mg PO BEDTIME PRN #30 cap 02/12/21 prazosin 2 mg PO BEDTIME #15 cap 02/12/21 trazodone 150 mg PO BEDTIME PRN #30 tab 02/12/21 ziprasidone HCl 20 mg PO DAILY #15 cap 02/12/21 ziprasidone HCl 40 mg PO BEDTIME #15 cap 02/12/21 Discharge Plan Discharge Anticipated Discharge Date/Time: 02/13/21 16:00 Patient Disposition: Home, Self-Care Discharge Diagnosis: Recurrent major depression with psychotic features Cannabis Use Disorder Stimulant Use Disorder-Cocaine Referrals: Mikayla Harrington (medication management) [Other] - 02/18/21 9:30 am (This appointment is via Telehealth) Aleena Diaz ([facility]) [Other] - 1 Week (Please follow up with your ICC worker upon discharge) [facility] [Other] - 1 Week (Please call the above number to schedule an Intake for the virtual IOP if you change your mind and are interested in additional substance use treatment) Latha Caputo, MARCELA [Primary Care Provider] - 1 Week (PCP REFUSED FOLLOW UP APPOINTMENT. PT IS TO CALL PCP NEEDED FOR MEDICAL PURPOSES. ADVISED TO FOLLOW UP [facility] AT THIS TIME. ) Discharge Medications: New trazodone 50 mg Tablet 150 mg PO BEDTIME PRN (Reason: Insomnia) Qty: 30 RF: 1 ziprasidone HCl 20 mg Capsule 20 mg PO DAILY Qty: 15 RF: 1 ziprasidone HCl 40 mg Capsule 40 mg PO BEDTIME Qty: 15 RF: 1 melatonin 3 mg capsule 6 mg PO BEDTIME PRN (Reason: sleep) Qty: 30 RF: 1 Continued benztropine 1 mg Tablet 1 mg PO BID Qty: 30 RF: 1 prazosin 2 mg Capsule 2 mg PO BEDTIME Qty: 15 RF: 1 Discontinued Vraylar 1.5 mg Capsule 1.5 mg PO BEDTIME RF: 0 trazodone 150 mg tablet 50 - 150 mg PO BEDTIME PRN (Reason: insomnia) RF: 0 paliperidone 9 mg tablet extended release 24hr 1 tab PO DAILY RF: 0 melatonin 5 mg tablet 2 tab PO BEDTIME RF: 0 divalproex [Depakote] 250 mg tablet,delayed release (DR/EC) 250 mg PO BID RF: 0 No Action multivitamin [Daily-Nevaeh] Tablet 1 tab PO DAILY RF: 0 Discharge Orders: Discharge Order (Routine); Ordered 02/13/21 Ordered By: Toshia Ga Diet: regular diet Activity on Discharge: As tolerated Stand Alone Forms: Patient Portal Discharge page, Community Support Care Plan Goals: Sobriety Mood Stabilization Health Concerns: Substance Abuse Mood dysregulation Plan of Treatment: Attend appointments as scheduled Take Medications as directed Assessment: stable. No SI/HI. future oriented. Discharge Date/Time: 02/13/21 12:15 Mental Status Exam Mental Status Exam Patient Appearance: Appropriate Patient Orientation: Person, Place, Time and Situation Level of Consciousness: Alert Patient Behavior: Appropriate Mood Description: Constricted Affect Description: Constricted Patient Cognition Impaired: No Ability to Follow Directions: Good Speech Pattern: Spontaneous Speech Memory Description: Intact Hallucinations: None Delusions: Not Present Thought Process: Intact Thought Content: positive for Intact Depressive Symptoms: Low Self Esteem Judgement: Good DS: Summary Hospital Course Hospital Course: 20 yo female, hx of depression, psychosis, possibly bipolar disorder, substance abuse, mainly cannabis presented to ER with reports of verbalizing suicidal ideation in response to refusal to attend a virtual partial hospital program. Pt reports her mother called the crisis team when she refused to participate in this program, stating she would rather than continue to tell her story over and over again. Pt reported a long history of conflict with her mother, and prefers her grandmother, who is currently able to better understand pt's perspectives she believes. Pt admitted on conditional voluntary status. She denied suicidality, plan or intent. She reported she had graduated from high school the week of admission and also it was learned she had used cocaine with cannabis prior to admission, possibly exacerbating her symptoms. By history, pt and mother report high sensitivities of antipsychotic medications with adverse responses. She, on admission had just initiated Vraylar which had not been too helpful. Regime was changed and titrated to Geodon, up to 60 mg daily upon discharge which pt was tolerating without side effects. Pt did exhibit some symptoms during her admission which should be followed. She was focused on having warts on her fingers and feet which were managed with OTC preparations. Pt discussed self-esteem issues, feeling self-conscious about her appearance, not being satisfied with her looks, avoiding mirrors. Pt also reported vaginal irritation which was evaluated by Dr. Padilla from [facility]. No medical issues were found and no further treatment recommended. Pt was upset by this finding and required education and reassurance. Family was very involved and supportive, both pt's mother and grandmother. Mother did evaluate programs for pt to attend upon discharge to focus on substance abuse rehabilitation. Prior to discharge, pt's conflicts with her mother increased and she involved her grandmother in her discharge plan of care. This junior copywriter offered family meeting with all three but it was declined. These issues pt presents appear to be developmental, with self-esteem and anxiety symptoms present and will benefit from ongoing education, good alliance with PCP and therapist and continued careful medication titration as indicated. Pt reported she felt safe to discharge to the next step in her care and was satisfied with her plan upon leaving. Time spent discussing smoking cessation with patient: 3 to 10 minutes Status at Discharge Cognitive/behavioral status at discharge: alert, non-psychotic, mood constricted. Denies SI, HI Functional status at discharge: independent ambulation Overall status at discharge: patient is progressing back to baseline Time Spent with Patient Time attestation: Total time spent providing and/or coordinating discharge services:35
== END 2021-02-13 12:15 | disposition home or self-care (01) | DRG 751 ==
LOC: HO.ED 01-29 00:29 → HO.PM5 01-29 01:04
PROVIDERS: Physician Assistant; Admitting Provider Psychiatry & Neurology Psychiatry; Emergency Provider Internal Medicine; PCP Nurse Practitioner Pediatrics; Visit Provider Clinical Nurse Specialist Psychiatric/Mental Health, Adult
DX: F33.3 Major depressive disorder, recurrent, severe with psychotic symptoms (principal); R10.2 Pelvic and perineal pain; F12.20 Cannabis dependence, uncomplicated; F14.10 Cocaine abuse, uncomplicated; Z20.822 Contact with and (suspected) exposure to COVID-19; Z79.899 Other long term (current) drug therapy
CPT/HCPCS: 36415; 80053; 80061; 80076; 80164; 80307; 81001; 81025; 82077; 83036; 85025; 87635; 93005; 99285

== ENCOUNTER 2021-02-24 01:19 | Emergency (ER) | payer OTHER, MEDICAID, SELFPAY ==
--- NOTE | ~2021-02-24 | XR_ITS ---
EXAMINATION: XR ABDOMEN KUB CLINICAL INDICATION: Abdominal discomfort. COMPARISON: 10/04/2007 TECHNIQUE: AP view of the abdomen. FINDINGS: Nonobstructive bowel gas pattern. Gas and stool throughout the colon. Moderate stool burden greatest throughout the right hemicolon. No suspicious calcification. No osseous abnormality. XR/XR KUB IMPRESSION: Moderate stool burden greatest in the right hemicolon.
[2021-02-24 01:28] VITALS: BP 135/87; PULSE 97; RESP 18; O2SAT 97; BMI 23.6
--- NOTE | 2021-02-24 02:17 | PC.NURSE ---
PT UP AND PACING AROUND ROOM AND ASKING FOR HOSPITAL UNDERWEAR. PT HAS A DELAY IN ANSWERING ?'s. WILL CONTINUE TO MONITOR PT.
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
--- NOTE | 2021-02-24 02:49 | PC.NURSE ---
IN ROOM FOR EVAL. PT IS STATING I THREW UP POOP, IT SMELLED AND I TASTED IT, IT WAS POOP . PT AWARE THAT A UA IS NEEDED.
[2021-02-24 03:15] LABS: MANUAL DIFF FLAG NO
[2021-02-24 03:16] LABS: Basophils Percent Auto 0.3 % (0-2); Eosinophils Absolute Auto 0.2 X10*3/uL (0.0-0.4); Hematocrit 40.4 % (37-47); Imm Gran Abs Auto 0.02 X10*3/uL (0.00-0.03); Imm Gran Pct Auto 0.2 % (0.0-0.4); Lymphocytes Absolute Auto 2.5 X10*3/uL (1.2-4.9); Lymphocytes Percent Auto 27.1 % (20-40); Mean Corpuscular HGB Conc 34.7 g/dl (31.0-35.0); Mean Corpuscular Hemoglobin 31.6 pg (27.0-33.0); Mean Corpuscular Volume 91.2 fL (80-98); Mean Platelet Volume 10.6 fL (9.4-12.3); Monocytes Absolute Auto 0.6 X10*3/uL (0.1-1.2); Monocytes Percent Auto 6.2 % (2-11); Neutrophils Absolute Auto 5.9 X10*3/uL (2.0-8.3); Neutrophils Percent Auto 64.2 % (45-73); Platelet Count 199 X10*3/uL (160-400); Red Blood Count 4.43 X10*6/uL (4.20-5.50); Red Cell Distribution Width 11.8 % (11.0-16.0); White Blood Count 9.2 X10*3/uL (4.8-10.8)
[2021-02-24 03:17] LABS: Glucose Urine UA NEG (NEG); Leukocyte Esterase Urine NEG (NEG); Nitrite Urine NEG (NEG); Specific Gravity - Urine >= 1.030 (1.005-1.025); Urine Blood NEG (NEG); Urine Ketones NEG (NEG); Urine Protein 2+ MG/DL (NEG-TRACE)
[2021-02-24 03:27] LABS: Appearance Urine HAZY; Color Urine DARK YELLOW
--- NOTE | 2021-02-24 03:30 | PC.NURSE ---
Labs drawn to lab for emma.
[2021-02-24 03:43] LABS: Alanine Aminotransferase 29 U/L (0-31); Albumin Level 5.1 g/dL (3.5-5.0); Alkaline Phosphatase 45 U/L (39-117); Anion Gap 15 (12-20); Aspartate Amino Transferase 15 U/L (5-31); Bilirubin Total 0.6 mg/dL (0.0-1.0); Blood Urea Nitrogen 10 mg/dL (9-16); Calcium 10.4 mg/dL (8.4-10.2); Carbon Dioxide 26 mmol/L (22-29); Chloride 102 mmol/L (96-108); Creatinine Clr Calc Pharmacy 78.1; Estimated Glomerular Filt Rate > 60; Glucose Random 110 mg/dL (60-115); Potassium 3.9 mmol/L (3.3-5.1); Sodium 139 mmol/L (135-145); Total Protein 7.7 g/dL (6.5-8.0)
[2021-02-24 03:50] LABS: HCG Quantitative < 2 mIU/mL
[2021-02-24 04:24] LABS: Bacteria Urine TRACE /LPF; RBC Urine 0-2 /HPF (0); Squamous Epithelial Cell Urine 1+ /LPF; UACC CULT YES
[2021-02-24 04:25] LABS: Amorphous Sediment Urine TRACE /LPF; Mucus Urine 3+ /LPF
--- NOTE | 2021-02-24 04:33 | PC.NURSE ---
pt to x-ray for a KUB.
--- NOTE | 2021-02-24 05:36 | PC.NURSE ---
PT DIDNT GIVE ENOUGH URINE FOR THE URINE CULTURE TUBE. WHEN ASKING PT IF SHE COULD GIVE MORE URINE PT STATES MY VAGINA HOLE DOESN'T WORK AND THAT'S WHY I'M HERE
--- NOTE | 2021-02-24 05:45 | PC.NURSE ---
Patient just got transferred from main ED, ambulated well without gait deficit, patient appears alerts and oriented however per report patient is delusional mostly related to her pelvic region, patient is not so sure of her medication but claims she is being adherent to her medication, per report N referral was completed via smart sheet however no calls were made to [facility] at this time to confirms receipt of referral, provider sectioned the patient, no distress observed/reported, will continue to monitor.
[2021-02-24 06:09] LABS: COVID-19 Test Negative (Negative); IDNOW Serial# 9DD0AD1C
--- NOTE | 2021-02-24 07:10 | PC.NURSE ---
patient appears to remain at rest at present, patient awake cooperative quiet and pleasant. appears in no distress. t/w endeavors to move client into private room when available (rests in group area presently).
[2021-02-24 07:28] LABS: Amphetamine Screen Urine Not Detected (Not Detect); Barbiturates, Urine Not Detected (Not Detect); Benzodiazepines Screen Urine Not Detected (Not Detect); Cannabinoid Screen Urine Not Detected (Not Detect); Cocaine Screen Urine Not Detected (Not Detect); Opiate Screen Urine Not Detected (Not Detect); Phencyclidine Screen Urine Not Detected (Not Detect)
[2021-02-24 08:13] VITALS: BP 130/84; PULSE 84; RESP 17; TEMP 37; O2SAT 99
--- NOTE | 2021-02-24 11:26 | PC.NURSE ---
client declined mother visit. t/w informed mother via security that patients car was being moved
[2021-02-24] MEDS: Ziprasidone 20 MG CAPSULE PO (12:20)
[2021-02-24] MEDS: Benztropine Mesylate 1 MG TABLET PO ×2 (12:21→20:55)
[2021-02-24] MEDS: Multivitamin TABLET 1 TAB PO (12:21)
[2021-02-24 17:00] VITALS: BP 123/87; PULSE 83; RESP 18; TEMP 36.6; O2SAT 99
--- NOTE | 2021-02-24 17:51 | PC.NURSE ---
patient declined dinner, patient then requested toast, then asked for ice cream and seemed to take about 30 real seconds to decide between two flavor choices. she then changed her mind as staff was leaving unit. she seems to often have poverty of speech, gets stuck on decision making.
[2021-02-24 20:48] VITALS: BP 143/91; PULSE 79; RESP 16; TEMP 36.5; O2SAT 98
[2021-02-24] MEDS: Ziprasidone 40 MG CAPSULE PO (20:55)
[2021-02-24] MEDS: traZODone HCL 50 MG TABLET 150 MG PO (20:55)
[2021-02-24 20:56] VITALS: BP 143/91; PULSE 79
[2021-02-24] MEDS: Prazosin HCL 1 MG CAPSULE 2 MG PO (20:56)
--- NOTE | 2021-02-24 21:40 | PC.NURSE ---
Patient needed redirection for medication administration, calm and quiet, no distress observed/reported, KAREN called and spoke with Kirit to confirm patient's disposition, notified patient is on section 12 inpatient bed search, will continue to monitor,
--- NOTE | 2021-02-25 06:28 | PC.NURSE ---
Patient slept through the night, compliant with her medication but requires redirection d/t disorientation, no somatic delusion verbalized during overnight shift, patient calm and quiet, appetite adequate, elimination intact, VSS, no distress observed/reported, good behavioral control, will continue to monitor.
[2021-02-25 06:34] VITALS: BP 118/72; PULSE 114; RESP 16; TEMP 36.8; O2SAT 85
[2021-02-25 07:28] VITALS: BP 103/78; PULSE 96; RESP 15; TEMP 36.4; O2SAT 99
[2021-02-25] MEDS: Benztropine Mesylate 1 MG TABLET PO (10:22)
[2021-02-25] MEDS: Ziprasidone 20 MG CAPSULE PO (10:22)
[2021-02-25] MEDS: Multivitamin TABLET 1 TAB PO (10:22)
--- NOTE | 2021-02-25 11:34 | PC.NURSE ---
pt noted to attempt to take items out of her locker when the locker has been opened to place clothing within it. pt repeatedly asking for items out of her locker.
[2021-02-25 14:27] VITALS: RESP 16
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
== END 2021-02-25 16:59 | disposition home or self-care (01) ==
PROVIDERS: Emergency Provider Student in an Organized Health Care Education/Training Program; PCP Nurse Practitioner Pediatrics
DX: F22 Delusional disorders (principal); K59.00 Constipation, unspecified; Z20.822 Contact with and (suspected) exposure to COVID-19; F31.9 Bipolar disorder, unspecified; F17.210 Nicotine dependence, cigarettes, uncomplicated
CPT/HCPCS: 36415; 74018; 80053; 80307; 81001; 84702; 85025; 87086; 87635; 99284; 99285

== ENCOUNTER 2021-02-27 19:56 | Inpatient (IN) | payer OTHER, MEDICAID, SELFPAY ==
--- NOTE | ~2021-02-27 | MR_ITS ---
EXAMINATION: MR BRAIN WITHOUT CONTRAST CLINICAL INFORMATION: Chronic headaches. COMPARISON: None. TECHNIQUE: Multiplanar, multisequence imaging of the brain was performed without contrast. Slightly limited study with motion artifacts. FINDINGS: No diffusion abnormalities are identified to suggest an acute or subacute infarct. The ventricles are normal in size. No mass effect or midline shift is seen. No brain parenchymal signal abnormality is noted. No extra-axial fluid collections are seen. The brainstem and cerebellum are normal. The gradient refocused acquisition is normal. The craniovertebral junction, marrow signal, and midline structures are normal. The major intracranial flow voids at the level of the huslia of [place] are preserved. The dural venous sinus flow voids are maintained. The mastoid air cells and paranasal sinuses are well aerated. MR/MR head/brain wo con IMPRESSION: Normal limited MRI of the brain with motion artifacts.
[2021-02-27 20:21] VITALS: BMI 22.9
[2021-02-27 21:34] VITALS: BP 133/68; PULSE 71
[2021-02-27] MEDS: Prazosin HCL 1 MG CAPSULE 2 MG PO (21:34)
[2021-02-27] MEDS: Benztropine Mesylate 1 MG TABLET PO (21:38)
[2021-02-27] MEDS: Ziprasidone 40 MG CAPSULE PO (21:38)
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
[2021-02-27 22:12] VITALS: BP 133/68; PULSE 71; TEMP 37
[2021-02-28] MEDS: Ziprasidone 20 MG CAPSULE PO (09:09)
[2021-02-28] MEDS: Benztropine Mesylate 1 MG TABLET PO ×2 (09:09→20:19)
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
[2021-02-28] MEDS: Nicotine Polacrilex 2 MG GUM 4 MG BUCCAL ×2 (15:50→18:43)
[2021-02-28] MEDS: OLANZapine 5 MG TABLET PO (16:10)
[2021-02-28 18:00] VITALS: BP 132/77; PULSE 74; TEMP 36.6
[2021-02-28 20:18] VITALS: BP 132/77; PULSE 74
[2021-02-28] MEDS: Prazosin HCL 1 MG CAPSULE 2 MG PO (20:18)
[2021-02-28] MEDS: Ziprasidone 40 MG CAPSULE PO (20:19)
[2021-02-28] MEDS: QUEtiapine Fumarate 50 MG TABLET PO (20:19)
[2021-03-01] MEDS: Benztropine Mesylate 1 MG TABLET PO ×2 (08:24→20:20)
[2021-03-01] MEDS: Ziprasidone 40 MG CAPSULE PO ×2 (08:24→20:20)
[2021-03-01 14:05] VITALS: BP 118/71; PULSE 80
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
[2021-03-01] MEDS: OLANZapine 5 MG TABLET PO (17:05)
[2021-03-01] MEDS: Nicotine Polacrilex 2 MG GUM 4 MG BUCCAL (17:06)
[2021-03-01 18:00] VITALS: BP 108/66; PULSE 73; TEMP 36.4
[2021-03-01 20:20] VITALS: BP 108/66; PULSE 73
[2021-03-01] MEDS: Prazosin HCL 1 MG CAPSULE 2 MG PO (20:20)
[2021-03-01] MEDS: hydrOXYzine HCL 25 MG TABLET PO (20:42)
[2021-03-02] MEDS: Benztropine Mesylate 1 MG TABLET PO ×2 (08:33→20:32)
[2021-03-02] MEDS: Ziprasidone 40 MG CAPSULE PO ×2 (08:33→20:31)
[2021-03-02 20:25] VITALS: BP 106/61; PULSE 84; TEMP 36.6
[2021-03-02 20:32] VITALS: BP 106/61; PULSE 84
[2021-03-02] MEDS: Nicotine Polacrilex 2 MG GUM 4 MG BUCCAL (20:32)
[2021-03-02] MEDS: Prazosin HCL 1 MG CAPSULE 2 MG PO (20:32)
--- NOTE | 2021-03-02 21:25 | P.PNPSI_ITS ---
Subjective Subjective Date of Service: 03/02/21 Reason For Visit: Psychosis Interim History: Patient seen, chart reviewed, case discussed with nursing staff Pt says her mood is numb... but then changes it to say, No, i'm fine... She says SI is on/off but that it's not intrusive. She asks for Clonazepam for panic attack and television writer agreed to consider it. AH are not too bad. Pt lying in bed and remains so for conversation; pulls covers up to neck indicating she's done talking. Mental Status Exam Mental Status Exam Narrative: Patient Appearance: lying in bed, under blanket Patient Orientation: Person, Place, Time and Situation Level of Consciousness: Awake and Alert Patient Behavior: Guarded, Avoidant, Distractible and Poor Eye Contact Mood Description: Labile Affect Description: anxious Patient Cognition Impaired: Yes Ability to Follow Directions: Fair Speech Pattern: Spontaneous Speech Memory Description: Remote Impaired and Episodic Impaired Hallucinations: Auditory Delusions: Being Controlled, Paranoid Ideation and Present Perceptual Disturbances: Depersonalization and Derealization Thought Process: goal oriented, concrete Thought Content: intermittent SI Depressive Symptoms: Increased Anxiety, Insomnia, Increased Irritability, Loss of Int. in Activity, Feelings of Worthlessness, Hopelessness, Feelings of Guilt, Unhappiness, Thoughts of /Suicide, Low Self Esteem, Loss of Energy and Difficulty Concentrating Abnormal Motor Activity Signs and Symptoms: Restlessness Judgment: Poor Diagnostics Vital Signs (24Hr): Vital Signs - 24 hr 03/02/21 20:32 Pulse Rate 84 Blood Pressure 106/61 Body Mass Index 22.9 Medications Medications Current Medications Generic Name Dose Route Start Last Admin Trade Name Monsterq PRN Reason Stop Dose Admin Acetaminophen 650 mg 02/27/21 20:08 Acetaminophen 325 Mg Tablet PO Q6H PRN Headache/Pain Mild Scale (1-3) Al Hydroxide/Mg Hydroxide 30 ml 02/27/21 20:08 Magnesium Hydrox/Alum Hydrox 30 Ml Oral.Susp PO Q6H PRN Heartburn/Nausea Albuterol Sulfate 2 puff 03/02/21 21:23 Albuterol Sulfate 90 Mcg 8 Gm Inhaler INHALE RQ4H PRN Shortness of Breath Benztropine Mesylate 1 mg 02/27/21 21:00 03/02/21 20:32 Benztropine Mesylate 1 Mg Tablet PO 1 mg BID DUSTIN Administration Hydroxyzine HCl 25 mg 02/27/21 20:08 03/01/21 20:42 Hydroxyzine Hcl 25 Mg Tablet PO 25 mg BEDTIME PRN Administration Anxiety Magnesium Hydroxide 30 ml 02/27/21 20:08 Milk Of Magnesia 30 Ml Oral.Susp PO DAILY PRN Constipation Melatonin 6 mg 02/27/21 20:09 Melatonin 3 Mg Tablet PO BEDTIME PRN Insomnia Nicotine Polacrilex 4 mg 02/27/21 20:08 03/02/21 20:32 Nicotine Polacrilex 2 Mg Gum BUCCAL 4 mg Q2H PRN Administration Nicotine Cravings Olanzapine 5 mg 02/28/21 10:50 03/01/21 17:05 Olanzapine 5 Mg Tablet PO 5 mg TID PRN Administration agitation Prazosin HCl 2 mg 02/27/21 21:00 03/02/21 20:32 Prazosin Hcl 1 Mg Capsule PO 2 mg BEDTIME DUSTIN Administration Protocol Trazodone HCl 150 mg 02/27/21 20:09 Trazodone Hcl 50 Mg Tablet PO BEDTIME PRN Insomnia Ziprasidone 40 mg 02/28/21 21:00 03/02/21 20:31 Ziprasidone 40 Mg Capsule PO 40 mg BID DUSTIN Administration Allergies Allergies Allergy/AdvReac Type Severity Reaction Status Date / Time risperidone [From Risperdal] Allergy Mild gain weight Verified 02/24/21 01:27 aripiprazole [Abilify] Allergy Unknown gain weight Verified 02/24/21 01:27 paliperidone AdvReac dystonia Verified 02/24/21 01:27 Assessment & Plan Assessment & Plan (1) Depression, major, recurrent, severe with psychosis: Status: Acute Code(s): F33.3 - Major depressive disorder, recurrent, severe with psychotic symptoms Assessment and Plan: Apricot Packer covering pt asks for Clonazepam prn for panic; television writer hesitant given hx of substance abuse; she has Olanzapine in there as prn. -Will add Clonazepam as PRN but indicate only for severe anxiety/panic. -add albuterol inhaler at pt's request; she denies SOB but says she wants in available in case 20 yo female, hx of depression with psychosis, cannabis and cocaine use disorder. Recent discharge from 02/13/21. It is unclear if pt was compliant with medications after discharge. UTox negative on 02/24 and 7/6. -Rule out bipolar disorder with psychosis vs schizoaffective disorder-bipolar type vs schizophrenia. -Increase Geodon to 40 mg po bid -Olanzapine prn -Mother has initiated guardianship process. Will participate in process. Tentative court date 03/05/21. -Pt may need application for civil commitment. Greater than 50% of the session was spent on counseling and/or coordination of care Reason for contiued inpatient stay Substantial Risk for: rapid decompensation
[2021-03-03] MEDS: Ziprasidone 40 MG CAPSULE PO ×2 (08:36→20:23)
[2021-03-03] MEDS: Benztropine Mesylate 1 MG TABLET PO ×2 (08:36→20:23)
[2021-03-03 09:30] VITALS: BP 122/85; PULSE 98; RESP 18; TEMP 36.3; O2SAT 99
[2021-03-03 18:00] VITALS: RESP 14
--- NOTE | 2021-03-03 19:19 | P.PNPSI_ITS ---
Subjective Subjective Date of Service: 03/03/21 Reason For Visit: Psychosis Interim History: pt lying in bed. She says she's fine and that AH are not so much. She denies any SI or AH. Pt asks for cream for eczema and also to use her own meds for warts. After this, pt lies back down and closes her eyes. Mental Status Exam Mental Status Exam Narrative: Patient Appearance: lying in bed Patient Orientation: Person, Place, Time and Situation Level of Consciousness: Awake and Alert Patient Behavior: Guarded, Avoidant, Distractible and Poor Eye Contact Mood Description: fine Affect Description: constricted Patient Cognition Impaired: Yes Ability to Follow Directions: Fair Speech Pattern: Spontaneous Speech Memory Description: Remote Impaired and Episodic Impaired Hallucinations: AH but less so Delusions: none expressed (recently: Being Controlled, Paranoid Ideation and Present) Perceptual Disturbances: Depersonalization and Derealization Thought Process: goal oriented, concrete Thought Content: currently denies SI or HI Depressive Symptoms: Increased Anxiety, Insomnia, Increased Irritability, Loss of Int. in Activity, Feelings of Worthlessness, Hopelessness, Feelings of Guilt, Unhappiness, Thoughts of /Suicide, Low Self Esteem, Loss of Energy and Difficulty Concentrating Abnormal Motor Activity Signs and Symptoms: Restlessness Judgment: Poor Diagnostics Vital Signs (24Hr): Vital Signs - 24 hr 03/02/21 20:25 03/02/21 20:32 03/03/21 09:30 Temperature 97.9 F 97.3 F Pulse Rate 84 84 98 Respiratory Rate 18 Blood Pressure 106/61 106/61 122/85 Pulse Oximetry 99 03/03/21 18:00 Temperature Pulse Rate Respiratory Rate 14 Blood Pressure Pulse Oximetry Body Mass Index 22.9 Medications Medications Current Medications Generic Name Dose Route Start Last Admin Trade Name Freq PRN Reason Stop Dose Admin Acetaminophen 650 mg 02/27/21 20:08 Acetaminophen 325 Mg Tablet PO Q6H PRN Headache/Pain Mild Scale (1-3) Al Hydroxide/Mg Hydroxide 30 ml 02/27/21 20:08 Magnesium Hydrox/Alum Hydrox 30 Ml Oral.Susp PO Q6H PRN Heartburn/Nausea Albuterol Sulfate 2 puff 03/02/21 21:23 Albuterol Sulfate 90 Mcg 8 Gm Inhaler INHALE RQ4H PRN Shortness of Breath Benztropine Mesylate 1 mg 02/27/21 21:00 03/03/21 08:36 Benztropine Mesylate 1 Mg Tablet PO 1 mg BID DUSTIN Administration Clonazepam 0.5 mg 03/02/21 21:41 Clonazepam 0.5 Mg Tablet PO DAILY PRN SEVERE anxiety/panic Hydroxyzine HCl 25 mg 02/27/21 20:08 03/01/21 20:42 Hydroxyzine Hcl 25 Mg Tablet PO 25 mg BEDTIME PRN Administration Anxiety Magnesium Hydroxide 30 ml 02/27/21 20:08 Milk Of Magnesia 30 Ml Oral.Susp PO DAILY PRN Constipation Melatonin 6 mg 02/27/21 20:09 Melatonin 3 Mg Tablet PO BEDTIME PRN Insomnia Nicotine Polacrilex 4 mg 02/27/21 20:08 03/02/21 20:32 Nicotine Polacrilex 2 Mg Gum BUCCAL 4 mg Q2H PRN Administration Nicotine Cravings Olanzapine 5 mg 02/28/21 10:50 03/01/21 17:05 Olanzapine 5 Mg Tablet PO 5 mg TID PRN Administration agitation Prazosin HCl 2 mg 02/27/21 21:00 03/02/21 20:32 Prazosin Hcl 1 Mg Capsule PO 2 mg BEDTIME DUSTIN Administration Protocol Trazodone HCl 150 mg 02/27/21 20:09 Trazodone Hcl 50 Mg Tablet PO BEDTIME PRN Insomnia Ziprasidone 40 mg 02/28/21 21:00 03/03/21 08:36 Ziprasidone 40 Mg Capsule PO 40 mg BID DUSTIN Administration Allergies Allergies Allergy/AdvReac Type Severity Reaction Status Date / Time risperidone [From Risperdal] Allergy Mild gain weight Verified 02/24/21 01:27 aripiprazole [Abilify] Allergy Unknown gain weight Verified 02/24/21 01:27 paliperidone AdvReac dystonia Verified 02/24/21 01:27 Assessment & Plan Assessment & Plan (1) Depression, major, recurrent, severe with psychosis: Status: Acute Code(s): F33.3 - Major depressive disorder, recurrent, severe with psychotic symptoms Assessment and Plan: Press Manager covering -added pt own meds Compound W for warts -will see what's available for eczema -Added Clonazepam as PRN but indicate only for severe anxiety/panic. ( pt asks for Clonazepam prn for panic; web content writer hesitant given hx of substance abuse but web content writer agreed ) -added albuterol inhaler at pt's request; she denies SOB but says she wants in available in case 20 yo female, hx of depression with psychosis, cannabis and cocaine use disorder. Recent discharge from 02/13/21. It is unclear if pt was compliant with medications after discharge. UTox negative on 02/24 and 02/26. -Rule out bipolar disorder with psychosis vs schizoaffective disorder-bipolar type vs schizophrenia. -Increase Geodon to 40 mg po bid -Olanzapine prn -Mother has initiated guardianship process. Will participate in process. Tentative court date 03/05/21. -Pt may need application for civil commitment. Greater than 50% of the session was spent on counseling and/or coordination of care Reason for contiued inpatient stay Substantial Risk for: rapid decompensation
[2021-03-03 20:23] VITALS: BP 102/64; PULSE 101
[2021-03-03] MEDS: traZODone HCL 50 MG TABLET 150 MG PO (20:23)
[2021-03-03] MEDS: Prazosin HCL 1 MG CAPSULE 2 MG PO (20:23)
[2021-03-04] MEDS: Benztropine Mesylate 1 MG TABLET PO ×2 (08:52→20:35)
[2021-03-04] MEDS: Ziprasidone 40 MG CAPSULE PO (08:52)
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
[2021-03-04 18:00] VITALS: RESP 16
[2021-03-04] MEDS: Nicotine Polacrilex 2 MG GUM 4 MG BUCCAL (19:57)
[2021-03-04 20:34] VITALS: BP 125/86; PULSE 114
[2021-03-04] MEDS: clonazePAM 0.5 MG TABLET 0.25 MG PO (20:34)
[2021-03-04] MEDS: Ziprasidone 20 MG CAPSULE 60 MG PO (20:34)
[2021-03-04] MEDS: Prazosin HCL 1 MG CAPSULE 2 MG PO (20:34)
[2021-03-05 06:00] VITALS: BP 94/50; PULSE 66; RESP 16; TEMP 36.4; O2SAT 99
[2021-03-05] MEDS: clonazePAM 0.5 MG TABLET 0.25 MG PO ×2 (07:58→20:09)
[2021-03-05] MEDS: Ziprasidone 20 MG CAPSULE 60 MG PO ×2 (07:59→20:09)
[2021-03-05] MEDS: Benztropine Mesylate 1 MG TABLET PO ×2 (07:59→20:09)
[2021-03-05] MEDS: Nicotine Polacrilex 2 MG GUM 4 MG BUCCAL ×2 (08:00→17:51)
[2021-03-05] MEDS: Hydrocortisone 1 % Cream 28.35 GM TUBE 1 APPL TOPICAL ×2 (12:56→18:18)
--- NOTE | 2021-03-05 14:26 | P.PNPSI_ITS ---
Subjective Subjective Date of Service: 03/05/21 Reason For Visit: Psychosis Subjective Notes: Conditional Voluntary Healthcare Proxy: No (Mother has guardianship effective 03/05/21. Next hearing 05/10/21.) Guardianship: Yes Medical Problems Affecting Mental Status: No Interim History: Desi is tolerating recent Geodon increase. Today, she attended her court date via Zoom where her mother obtained temporary guardianship until her next review date of 05/10/21. Pt was tearful, sad, labile at times during the brief hearing. She disagreed with reports of 17 evaluations by [facility] for treatment and her mom will discuss this number with her and bring in paperwork to review with her. Team supported her in her agreement with this choice to have a guardian for added support and protections. Pt's aunt will be alternative guardian in case pt's mother cannot act. Medication Compliance: Yes Side effects from medications: No Attending Groups: No Review of Systems Reports behavioral changes and Reports confusion Psychiatric: Reports anxiety, Reports behavioral changes, Reports confusion, Reports depression, Reports difficulty concentrating, Reports auditory hallucinations, Reports hopelessness, Reports irritability, Reports anhedonia, Reports mood swings, Reports paranoia, Reports hallucinations and Reports suicidal ideation (denies) Mental Status Exam Mental Status Exam Patient Appearance: Appropriate Patient Orientation: Person, Place, Time and Situation Level of Consciousness: Alert Patient Behavior: Guarded, Talkative, Cooperative, Suspicious, Restless, Anxious, Distractible and Poor Eye Contact Mood Description: Suspicious, Withdrawn, Depressed, Fearful, Anxious, Labile, Sad, Nervous and Apprehensive Affect Description: Labile and Sad Patient Cognition Impaired: Yes Ability to Follow Directions: Fair Speech Pattern: Perseverating, Spontaneous Speech, Soft-Spoken and Cofabulation Memory Description: Remote Impaired and Episodic Impaired Hallucinations: Auditory Delusions: Paranoid Ideation and Present Perceptual Disturbances: Depersonalization and Derealization Thought Process: Distracted, Rumination and Confusion Thought Content: positive for [place], positive for Circumstantial, positive for Perseveration, positive for Thought Blocking and positive for Suicidal Ideation (denies) Depressive Symptoms: Increased Anxiety, Increased Irritability, Crying Spells, Loss of Int. in Activity, Feelings of Worthlessness, Hopelessness, Isolating- Friends/Family, Unhappiness, Increased Fatigue, Thoughts of /Suicide (denies), Low Self Esteem, Loss of Energy and Difficulty Concentrating Abnormal Motor Activity Signs and Symptoms: Restlessness Judgement: Poor Diagnostics Vital Signs (24Hr): Vital Signs - 24 hr 03/04/21 18:00 03/04/21 20:34 03/05/21 06:00 Temperature 97.6 F Pulse Rate 114 H 66 Respiratory Rate 16 16 Blood Pressure 125/86 94/50 L Pulse Oximetry 99 Body Mass Index 22.9 Medications Medications Current Medications Generic Name Dose Route Start Last Admin Trade Name [place] PRN Reason Stop Dose Admin Acetaminophen 650 mg 02/27/21 20:08 Acetaminophen 325 Mg Tablet PO Q6H PRN Headache/Pain Mild Scale (1-3) Al Hydroxide/Mg Hydroxide 30 ml 02/27/21 20:08 Magnesium Hydrox/Alum Hydrox 30 Ml Oral.Susp PO Q6H PRN Heartburn/Nausea Albuterol Sulfate 2 puff 03/02/21 21:23 Albuterol Sulfate 90 Mcg 8 Gm Inhaler INHALE RQ4H PRN Shortness of Breath Benztropine Mesylate 1 mg 02/27/21 21:00 03/05/21 07:59 Benztropine Mesylate 1 Mg Tablet PO 1 mg BID DUSTIN Administration Clonazepam 0.5 mg 03/02/21 21:41 Clonazepam 0.5 Mg Tablet PO DAILY PRN SEVERE anxiety/panic Clonazepam 0.25 mg 03/04/21 21:00 03/05/21 07:58 Clonazepam 0.5 Mg Tablet PO 0.25 mg BID DUSTIN Administration Hydrocortisone 1 appl 03/04/21 21:00 03/05/21 12:56 Hydrocortisone 1 % Cream 28.35 Gm Tube TOPICAL 1 appl BID DUSTIN Administration Protocol Hydroxyzine HCl 25 mg 02/27/21 20:08 03/01/21 20:42 Hydroxyzine Hcl 25 Mg Tablet PO 25 mg BEDTIME PRN Administration Anxiety Magnesium Hydroxide 30 ml 02/27/21 20:08 Milk Of Magnesia 30 Ml Oral.Susp PO DAILY PRN Constipation Melatonin 6 mg 02/27/21 20:09 Melatonin 3 Mg Tablet PO BEDTIME PRN Insomnia Multi-Ingred Cream/Lotion/Oil/Oint 1 appl 03/03/21 19:30 Mineral Oil/Petrolatum,White 106 Gm Tube TOPICAL TID PRN dry skin Nicotine Polacrilex 4 mg 02/27/21 20:08 03/05/21 08:00 Nicotine Polacrilex 2 Mg Gum BUCCAL 4 mg Q2H PRN Administration Nicotine Cravings Patient Own Med 1 each 03/04/21 09:00 03/05/21 12:57 Compound W Strips PO Not Given DAILY DUSTIN Olanzapine 5 mg 02/28/21 10:50 03/01/21 17:05 Olanzapine 5 Mg Tablet PO 5 mg TID PRN Administration agitation Prazosin HCl 2 mg 02/27/21 21:00 03/04/21 20:34 Prazosin Hcl 1 Mg Capsule PO 2 mg BEDTIME DUSTIN Administration Protocol Trazodone HCl 150 mg 02/27/21 20:09 03/03/21 20:23 Trazodone Hcl 50 Mg Tablet PO 150 mg BEDTIME PRN Administration Insomnia Ziprasidone 60 mg 03/04/21 21:00 03/05/21 07:59 Ziprasidone 20 Mg Capsule PO 60 mg BID DUSTIN Administration Allergies Allergies Allergy/AdvReac Type Severity Reaction Status Date / Time risperidone [From Risperdal] Allergy Mild gain weight Verified 02/24/21 01:27 aripiprazole [Abilify] Allergy Unknown gain weight Verified 02/24/21 01:27 paliperidone AdvReac dystonia Verified 02/24/21 01:27 Assessment & Plan Assessment & Plan (1) Depression, major, recurrent, severe with psychosis: Status: Acute Code(s): F33.3 - Major depressive disorder, recurrent, severe with psychotic symptoms Assessment and Plan: 20 yo female, hx of depression with psychosis, cannabis and cocaine use disorder. Recent discharge from 02/13/21. It is unclear if pt was compliant with medications after discharge. UTox negative on 02/24 and 02/26. -Rule out bipolar disorder with psychosis vs schizoaffective disorder-bipolar type vs schizophrenia. -Continue Geodon 60 mg po bid -Olanzapine prn -Klonopin 0.25 mg bid -Mother has been granted temporary guardianship until 05/10/21, pt's scheduled court date. -Pt may need application for civil commitment. -Hydrocortisone topical to hands (eczema) Greater than 50% of the session was spent on counseling and/or coordination of care Reason for contiued inpatient stay Substantial Risk for: harm to self, inability to function and rapid decompensation
[2021-03-05 18:00] VITALS: BP 119/70; PULSE 64; TEMP 36.6; O2SAT 98
[2021-03-05 20:14] VITALS: BP 115/70; PULSE 62
[2021-03-05] MEDS: Prazosin HCL 1 MG CAPSULE 2 MG PO (20:14)
[2021-03-05] MEDS: OLANZapine 5 MG TABLET PO (21:16)
[2021-03-06] MEDS: Hydrocortisone 1 % Cream 28.35 GM TUBE 1 APPL TOPICAL ×2 (09:00→20:39)
[2021-03-06] MEDS: Ziprasidone 20 MG CAPSULE 60 MG PO ×2 (09:01→20:34)
[2021-03-06] MEDS: clonazePAM 0.5 MG TABLET 0.25 MG PO ×2 (09:01→20:33)
[2021-03-06] MEDS: Benztropine Mesylate 1 MG TABLET PO ×2 (09:01→20:34)
--- NOTE | 2021-03-06 12:43 | P.PNPSI_ITS ---
Subjective Subjective Date of Service: 03/06/21 Reason For Visit: Psychosis Subjective Notes: Conditional Voluntary Healthcare Proxy: No Guardianship: Yes (Temporary-next court day 05/10/21. Mom/Aunt are co-guardians) Medical Problems Affecting Mental Status: No Interim History: Desi presents with lability today. Asks to meet, then declines, then asks to meet, then declines. Reports she is finding the medication helpful without adverse effects at this time. Began discussion of mood stablizer to assist in euthymia. She will consider. Geodon titration can continue and this should assist in managment as well. Medication Compliance: Yes Side effects from medications: No Attending Groups: Intermittent Review of Systems Reports behavioral changes Psychiatric: Reports abnormal sleep pattern, Reports anxiety, Reports behavioral changes, Reports depression, Reports difficulty concentrating, Reports auditory hallucinations, Reports hopelessness, Reports irritability, Reports anhedonia, Reports mood swings, Reports paranoia and Reports suicidal ideation (reports on an off, not as intense as SPECIAL OFF[employer] but when overwhelmed.) Mental Status Exam Mental Status Exam Patient Appearance: Disheveled Patient Orientation: Person, Place, Time and Situation Level of Consciousness: Alert Patient Behavior: Dependent, Guarded, Talkative, Cooperative, Passive, Suspicious, Restless, Anxious, Fearful, Resistive to Care, Avoidant, Fatigued, Distractible, Isolative, Good Eye Contact, Crying and Poor Eye Contact Mood Description: Suspicious, Withdrawn, Depressed, Anxious, Labile, Angry, Nervous and Apprehensive Affect Description: Depressed and Labile Patient Cognition Impaired: No Ability to Follow Directions: Fair Speech Pattern: Perseverating, Difficulty Finding Words, Spontaneous Speech, Soft-Spoken, Rapid and Long Pauses Memory Description: Remote Impaired and Episodic Impaired Hallucinations: Auditory Delusions: Paranoid Ideation and Present Perceptual Disturbances: Depersonalization Thought Process: Illogical, Distracted and Rumination Thought Content: positive for Flight of Ideas, positive for Circumstantial, positive for Perseveration, positive for Preoccupation, positive for Thought Blocking and positive for Suicidal Ideation Depressive Symptoms: Increased Anxiety, Diff. Making Decisions, Increased Irritability, Crying Spells, Sleeping More Than Usual, Loss of Int. in Activity, Feelings of Worthlessness, Hopelessness, Isolating-Friends/Family, Unhappiness, Increased Fatigue, Thoughts of /Suicide, Low Self Esteem and Difficulty Concentrating Abnormal Motor Activity Signs and Symptoms: Restlessness Judgement: Poor Diagnostics Vital Signs (24Hr): Vital Signs - 24 hr 03/05/21 18:00 03/05/21 20:14 Temperature 98 F Pulse Rate 64 62 Blood Pressure 119/70 115/70 Pulse Oximetry 98 Body Mass Index 22.9 Medications Medications Current Medications Generic Name Dose Route Start Last Admin Trade Name Freq PRN Reason Stop Dose Admin Acetaminophen 650 mg 02/27/21 20:08 Acetaminophen 325 Mg Tablet PO Q6H PRN Headache/Pain Mild Scale (1-3) Al Hydroxide/Mg Hydroxide 30 ml 02/27/21 20:08 Magnesium Hydrox/Alum Hydrox 30 Ml Oral.Susp PO Q6H PRN Heartburn/Nausea Albuterol Sulfate 2 puff 03/02/21 21:23 Albuterol Sulfate 90 Mcg 8 Gm Inhaler INHALE RQ4H PRN Shortness of Breath Benztropine Mesylate 1 mg 02/27/21 21:00 03/06/21 09:01 Benztropine Mesylate 1 Mg Tablet PO 1 mg BID DUSTIN Administration Clonazepam 0.5 mg 03/02/21 21:41 Clonazepam 0.5 Mg Tablet PO DAILY PRN SEVERE anxiety/panic Clonazepam 0.25 mg 03/04/21 21:00 03/06/21 09:01 Clonazepam 0.5 Mg Tablet PO 0.25 mg BID DUSTIN Administration Hydrocortisone 1 appl 03/04/21 21:00 03/06/21 09:00 Hydrocortisone 1 % Cream 28.35 Gm Tube TOPICAL 1 appl BID DUSTIN Administration Protocol Hydroxyzine HCl 25 mg 02/27/21 20:08 03/01/21 20:42 Hydroxyzine Hcl 25 Mg Tablet PO 25 mg BEDTIME PRN Administration Anxiety Magnesium Hydroxide 30 ml 02/27/21 20:08 Milk Of Magnesia 30 Ml Oral.Susp PO DAILY PRN Constipation Melatonin 6 mg 02/27/21 20:09 Melatonin 3 Mg Tablet PO BEDTIME PRN Insomnia Multi-Ingred Cream/Lotion/Oil/Oint 1 appl 03/03/21 19:30 Mineral Oil/Petrolatum,White 106 Gm Tube TOPICAL TID PRN dry skin Nicotine Polacrilex 4 mg 02/27/21 20:08 03/05/21 17:51 Nicotine Polacrilex 2 Mg Gum BUCCAL 4 mg Q2H PRN Administration Nicotine Cravings Patient Own Med 1 each 03/04/21 09:00 07/14/21 09:03 Compound W Strips PO Not Given DAILY DUSTIN Olanzapine 5 mg 02/28/21 10:50 03/05/21 21:16 Olanzapine 5 Mg Tablet PO 5 mg TID PRN Administration agitation Prazosin HCl 2 mg 02/27/21 21:00 03/05/21 20:14 Prazosin Hcl 1 Mg Capsule PO 2 mg BEDTIME DUSTIN Administration Protocol Trazodone HCl 150 mg 02/27/21 20:09 03/03/21 20:23 Trazodone Hcl 50 Mg Tablet PO 150 mg BEDTIME PRN Administration Insomnia Ziprasidone 60 mg 03/04/21 21:00 03/06/21 09:01 Ziprasidone 20 Mg Capsule PO 60 mg BID DUSTIN Administration Allergies Allergies Allergy/AdvReac Type Severity Reaction Status Date / Time risperidone [From Risperdal] Allergy Mild gain weight Verified 02/24/21 01:27 aripiprazole [Abilify] Allergy Unknown gain weight Verified 02/24/21 01:27 paliperidone AdvReac dystonia Verified 02/24/21 01:27 Assessment & Plan Assessment & Plan (1) Depression, major, recurrent, severe with psychosis: Status: Acute Code(s): F33.3 - Major depressive disorder, recurrent, severe with psychotic symptoms Assessment and Plan: 20 yo female, hx of depression with psychosis, cannabis and cocaine use disorder. Recent discharge from 02/13/21. It is unclear if pt was compliant with medications after discharge. UTox negative on 02/24 and 02/26. -Rule out bipolar disorder with psychosis vs schizoaffective disorder-bipolar type vs schizophrenia. -Continue Geodon 60 mg po bid -Olanzapine prn -Klonopin 0.25 mg bid -Mother has been granted temporary guardianship until 05/10/21, pt's scheduled court date. -Pt may need application for civil commitment. -Hydrocortisone topical to hands (eczema) 03/06/21: Continue current medication regime. Pt to consider addition of a mood stabilizer-?Lamictal trial Greater than 50% of the session was spent on counseling and/or coordination of care Reason for contiued inpatient stay Substantial Risk for: harm to self, inability to function and rapid decompensation
[2021-03-06] MEDS: OLANZapine 5 MG TABLET PO ×2 (16:11→21:50)
[2021-03-06] MEDS: Nicotine Polacrilex 2 MG GUM 4 MG BUCCAL (16:11)
[2021-03-06] MEDS: Prazosin HCL 1 MG CAPSULE 2 MG PO (20:34)
[2021-03-06 21:02] VITALS: BP 115/75; PULSE 86; RESP 20; TEMP 36.5; O2SAT 97
[2021-03-06] MEDS: traZODone HCL 50 MG TABLET 150 MG PO (21:50)
[2021-03-07] MEDS: Ziprasidone 20 MG CAPSULE 60 MG PO ×2 (09:01→20:04)
[2021-03-07] MEDS: clonazePAM 0.5 MG TABLET 0.25 MG PO ×2 (09:01→20:04)
[2021-03-07] MEDS: Benztropine Mesylate 1 MG TABLET PO ×2 (09:02→20:04)
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
[2021-03-07 18:00] VITALS: BP 119/58; PULSE 119; TEMP 35.9
[2021-03-07] MEDS: Nicotine Polacrilex 2 MG GUM 4 MG BUCCAL (20:00)
[2021-03-07 20:03] VITALS: BP 119/58; PULSE 119
[2021-03-07] MEDS: traZODone HCL 50 MG TABLET 150 MG PO (20:03)
[2021-03-07] MEDS: Prazosin HCL 1 MG CAPSULE 2 MG PO (20:03)
[2021-03-07] MEDS: Melatonin 3 MG TABLET 6 MG PO (20:04)
[2021-03-07] MEDS: hydrOXYzine HCL 25 MG TABLET PO (20:04)
[2021-03-08 06:00] VITALS: BP 106/59; PULSE 63; RESP 18; TEMP 36.1; O2SAT 99
[2021-03-08] MEDS: Ziprasidone 20 MG CAPSULE 60 MG PO ×2 (08:35→20:28)
[2021-03-08] MEDS: clonazePAM 0.5 MG TABLET 0.25 MG PO (08:35)
[2021-03-08] MEDS: Benztropine Mesylate 1 MG TABLET PO ×2 (08:36→20:27)
[2021-03-08] MEDS: Nicotine Polacrilex 2 MG GUM 4 MG BUCCAL ×3 (10:08→21:00)
--- NOTE | 2021-03-08 17:23 | P.PNPSI_ITS ---
Subjective Subjective Date of Service: 03/08/21 Reason For Visit: Psychosis Subjective Notes: Conditional Voluntary Healthcare Proxy: No Guardianship: Yes (Effective until 05/10/21 when pt will return to court) Medical Problems Affecting Mental Status: No Interim History: Pt able to meet with mother and team today to discuss treatment planning. Met with pt who reviewed medications, purpose for medications-asks if Klonopin may be consolidated to 0.5 mg hs as mother takes this dosage and finds it helpful. We will trial. Discussed Lamictal trial with pt encouraging her to discuss with mother/aunt. Discussed with mother who will talk with pt about this. Pt reports feeling guilty today as she has been intimate with partners she did not choose well enough . Mother, team offered support-pt discussed that she felt supported in that discussion. Medication Compliance: Yes Side effects from medications: No Attending Groups: No Review of Systems Reports behavioral changes Psychiatric: Reports anxiety, Reports behavioral changes, Reports depression, Reports difficulty concentrating, Reports auditory hallucinations, Reports hopelessness, Reports irritability, Reports anhedonia, Reports mood swings and R eports paranoia Mental Status Exam Mental Status Exam Patient Appearance: Appropriate Patient Orientation: Person, Place, Time and Situation Level of Consciousness: Alert Patient Behavior: Dependent, Talkative, Anxious, Fatigued and Good Eye Contact Mood Description: Depressed and Anxious Affect Description: Flat Patient Cognition Impaired: Yes Ability to Follow Directions: Good Speech Pattern: Perseverating and Spontaneous Speech Memory Description: Episodic Impaired Hallucinations: Auditory Delusions: Present Thought Process: Distracted and Rumination Thought Content: positive for [place], positive for [place] and positive for Suicidal Ideation (denies today) Depressive Symptoms: Increased Anxiety, Diff. Making Decisions, Increased Irritability, Loss of Int. in Activity, Hopelessness, Isolating-Friends/Family, Feelings of Guilt, Unhappiness, Low Self Esteem and Difficulty Concentrating Abnormal Motor Activity Signs and Symptoms: Restlessness Judgement: Fair Diagnostics Vital Signs (24Hr): Vital Signs - 24 hr 03/07/21 18:00 03/07/21 20:03 03/08/21 06:00 Temperature 96.7 F L 97.0 F Pulse Rate 119 H 119 H 63 Respiratory Rate 18 Blood Pressure 119/58 L 119/58 L 106/59 L Pulse Oximetry 99 Body Mass Index 22.9 Medications Medications Current Medications Generic Name Dose Route Start Last Admin Trade Name Freq PRN Reason Stop Dose Admin Acetaminophen 650 mg 02/27/21 20:08 Acetaminophen 325 Mg Tablet PO Q6H PRN Headache/Pain Mild Scale (1-3) Al Hydroxide/Mg Hydroxide 30 ml 02/27/21 20:08 Magnesium Hydrox/Alum Hydrox 30 Ml Oral.Susp PO Q6H PRN Heartburn/Nausea Albuterol Sulfate 2 puff 03/02/21 21:23 Albuterol Sulfate 90 Mcg 8 Gm Inhaler INHALE RQ4H PRN Shortness of Breath Benztropine Mesylate 1 mg 02/27/21 21:00 03/08/21 08:36 Benztropine Mesylate 1 Mg Tablet PO 1 mg BID DUSTIN Administration Clonazepam 0.5 mg 03/02/21 21:41 Clonazepam 0.5 Mg Tablet PO DAILY PRN SEVERE anxiety/panic Clonazepam 0.25 mg 03/04/21 21:00 03/08/21 08:35 Clonazepam 0.5 Mg Tablet PO 0.25 mg BID DUSTIN Administration Hydrocortisone 1 appl 03/04/21 21:00 03/08/21 10:06 Hydrocortisone 1 % Cream 28.35 Gm Tube TOPICAL Not Given BID [facility] Protocol Hydroxyzine HCl 25 mg 02/27/21 20:08 03/07/21 20:04 Hydroxyzine Hcl 25 Mg Tablet PO 25 mg BEDTIME PRN Administration Anxiety Magnesium Hydroxide 30 ml 02/27/21 20:08 Milk Of Magnesia 30 Ml Oral.Susp PO DAILY PRN Constipation Melatonin 6 mg 02/27/21 20:09 03/07/21 20:04 Melatonin 3 Mg Tablet PO 6 mg BEDTIME PRN Administration Insomnia Multi-Ingred Cream/Lotion/Oil/Oint 1 appl 03/03/21 19:30 Mineral Oil/Petrolatum,White 106 Gm Tube TOPICAL TID PRN dry skin Nicotine Polacrilex 4 mg 02/27/21 20:08 03/08/21 10:08 Nicotine Polacrilex 2 Mg Gum BUCCAL 4 mg Q2H PRN Administration Nicotine Cravings Patient Own Med 1 each 03/04/21 09:00 03/08/21 10:06 Compound W Strips PO Not Given DAILY DUSTIN Olanzapine 5 mg 02/28/21 10:50 03/06/21 21:50 Olanzapine 5 Mg Tablet PO 5 mg TID PRN Administration agitation Prazosin HCl 2 mg 02/27/21 21:00 03/07/21 20:03 Prazosin Hcl 1 Mg Capsule PO 2 mg BEDTIME DUSTIN Administration Protocol Trazodone HCl 150 mg 02/27/21 20:09 03/07/21 20:03 Trazodone Hcl 50 Mg Tablet PO 150 mg BEDTIME PRN Administration Insomnia Ziprasidone 60 mg 03/04/21 21:00 03/08/21 08:35 Ziprasidone 20 Mg Capsule PO 60 mg BID DUSTIN Administration Allergies Allergies Allergy/AdvReac Type Severity Reaction Status Date / Time risperidone [From Risperdal] Allergy Mild gain weight Verified 02/24/21 01:27 aripiprazole [Abilify] Allergy Unknown gain weight Verified 02/24/21 01:27 paliperidone AdvReac dystonia Verified 02/24/21 01:27 Assessment & Plan Assessment & Plan (1) Depression, major, recurrent, severe with psychosis: Status: Acute Code(s): F33.3 - Major depressive disorder, recurrent, severe with psychotic symptoms Assessment and Plan: 20 yo female, hx of depression with psychosis, cannabis and cocaine use disorder. Recent discharge from 02/13/21. It is unclear if pt was compliant with medications after discharge. UTox negative on 02/24 and 02/26. -Rule out bipolar disorder with psychosis vs schizoaffective disorder-bipolar type vs schizophrenia. -Continue Geodon 60 mg po bid -Olanzapine prn -Klonopin 0.25 mg bid -Mother has been granted temporary guardianship until 05/10/21, pt's scheduled court date. -Pt may need application for civil commitment. -Hydrocortisone topical to hands (eczema) 03/06/21: Continue current medication regime. Pt to consider addition of a mood stabilizer-?Lamictal trial 03/07/21: Refuses Lamictal trial-mom asks that we keep the discussion open. Today refusing to connect with family, OP team and stating just get me to rehab. No med changes today. Will approach to increase Geodon and begin Lamictal 03/08. 03/08/21: Pt improving-connecting with family, team. Asks to consolidate Klonopin to HS. Considering Lamictal. Appears to be clearing on current Geodon dosage, will hold on increase at this time. Greater than 50% of the session was spent on counseling and/or coordination of care Reason for contiued inpatient stay Substantial Risk for: harm to self, inability to function and rapid decompensation
[2021-03-08 18:00] VITALS: BP 125/76; PULSE 91; TEMP 36.8
[2021-03-08] MEDS: clonazePAM 0.5 MG TABLET PO (20:26)
[2021-03-08 20:27] VITALS: BP 125/76; PULSE 91
[2021-03-08] MEDS: Prazosin HCL 1 MG CAPSULE 2 MG PO (20:27)
[2021-03-08] MEDS: OLANZapine 5 MG TABLET PO (23:38)
[2021-03-09] MEDS: Ziprasidone 20 MG CAPSULE 60 MG PO ×2 (08:33→20:25)
[2021-03-09] MEDS: Benztropine Mesylate 1 MG TABLET PO ×2 (08:33→20:26)
[2021-03-09] MEDS: Hydrocortisone 1 % Cream 28.35 GM TUBE 1 APPL TOPICAL (08:36)
[2021-03-09] MEDS: Nicotine Polacrilex 2 MG GUM 4 MG BUCCAL (09:29)
[2021-03-09 18:00] VITALS: BP 129/61; PULSE 85; TEMP 36.6
--- NOTE | 2021-03-09 18:51 | P.PNPSI_ITS ---
Subjective Subjective Date of Service: 03/09/21 Reason For Visit: Psychosis Subjective Notes: Conditional Voluntary Healthcare Proxy: No Guardianship: Yes Medical Problems Affecting Mental Status: No Interim History: I am OK. I will talk with you a little today. Reports she is feeling better on Geodon. Mom visited, pt's mood is stable, she reports no outbursts of crying-feeling self conscious about dark circles under her eyes. Team reports they are observing pt as she is donating clothing, sees others using the clothing, then wanting it back. Denies sx of concern today. Continues to consider Lamictal trial. Medication Compliance: Yes Side effects from medications: No Attending Groups: No Review of Systems Psychiatric: Reports difficulty concentrating, Reports irritability and Reports paranoia Mental Status Exam Mental Status Exam Patient Appearance: Appropriate Patient Orientation: Person, Place, Time and Situation Level of Consciousness: Alert Patient Behavior: Talkative and Good Eye Contact Mood Description: Withdrawn Affect Description: Withdrawn Patient Cognition Impaired: No Ability to Follow Directions: Good Speech Pattern: Spontaneous Speech Memory Description: Remote Impaired and Episodic Impaired Hallucinations: Auditory ( a little ) Delusions: Paranoid Ideation Thought Process: Goal Oriented Thought Content: positive for [place], positive for Circumstantial and positive for Goal Oriented Depressive Symptoms: Increased Anxiety, Sleeping More Than Usual, Feelings of Worthlessness, Hopelessness, Isolating-Friends/Family, Unhappiness, Increased Fatigue, Low Self Esteem, Loss of Energy and Difficulty Concentrating Judgement: Fair Diagnostics Vital Signs (24Hr): Vital Signs - 24 hr 03/08/21 20:27 Pulse Rate 91 Blood Pressure 125/76 Body Mass Index 22.9 Medications Medications Current Medications Generic Name Dose Route Start Last Admin Trade Name Monsterq PRN Reason Stop Dose Admin Acetaminophen 650 mg 02/27/21 20:08 Acetaminophen 325 Mg Tablet PO Q6H PRN Headache/Pain Mild Scale (1-3) Al Hydroxide/Mg Hydroxide 30 ml 02/27/21 20:08 Magnesium Hydrox/Alum Hydrox 30 Ml Oral.Susp PO Q6H PRN Heartburn/Nausea Albuterol Sulfate 2 puff 03/02/21 21:23 Albuterol Sulfate 90 Mcg 8 Gm Inhaler INHALE RQ4H PRN Shortness of Breath Benztropine Mesylate 1 mg 02/27/21 21:00 03/09/21 08:33 Benztropine Mesylate 1 Mg Tablet PO 1 mg BID DUSTIN Administration Clonazepam 0.5 mg 03/02/21 21:41 Clonazepam 0.5 Mg Tablet PO DAILY PRN SEVERE anxiety/panic Clonazepam 0.5 mg 03/08/21 21:00 03/08/21 20:26 Clonazepam 0.5 Mg Tablet PO 0.5 mg BEDTIME DUSTIN Administration Hydrocortisone 1 appl 03/04/21 21:00 03/09/21 08:36 Hydrocortisone 1 % Cream 28.35 Gm Tube TOPICAL 1 appl BID DUSTIN Administration Protocol Hydroxyzine HCl 25 mg 02/27/21 20:08 03/07/21 20:04 Hydroxyzine Hcl 25 Mg Tablet PO 25 mg BEDTIME PRN Administration Anxiety Magnesium Hydroxide 30 ml 02/27/21 20:08 Milk Of Magnesia 30 Ml Oral.Susp PO DAILY PRN Constipation Melatonin 6 mg 02/27/21 20:09 03/07/21 20:04 Melatonin 3 Mg Tablet PO 6 mg BEDTIME PRN Administration Insomnia Multi-Ingred Cream/Lotion/Oil/Oint 1 appl 03/03/21 19:30 Mineral Oil/Petrolatum,White 106 Gm Tube TOPICAL TID PRN dry skin Nicotine Polacrilex 4 mg 02/27/21 20:08 03/09/21 09:29 Nicotine Polacrilex 2 Mg Gum BUCCAL 4 mg Q2H PRN Administration Nicotine Cravings Patient Own Med 1 each 03/04/21 09:00 03/09/21 08:37 Compound W Strips PO Not Given DAILY DUSTIN Olanzapine 5 mg 02/28/21 10:50 03/08/21 23:38 Olanzapine 5 Mg Tablet PO 5 mg TID PRN Administration agitation Prazosin HCl 2 mg 02/27/21 21:00 03/08/21 20:27 Prazosin Hcl 1 Mg Capsule PO 2 mg BEDTIME DUSTIN Administration Protocol Trazodone HCl 150 mg 02/27/21 20:09 03/07/21 20:03 Trazodone Hcl 50 Mg Tablet PO 150 mg BEDTIME PRN Administration Insomnia Ziprasidone 60 mg 03/04/21 21:00 03/09/21 08:33 Ziprasidone 20 Mg Capsule PO 60 mg BID DUSTIN Administration Allergies Allergies Allergy/AdvReac Type Severity Reaction Status Date / Time risperidone [From Risperdal] Allergy Mild gain weight Verified 02/24/21 01:27 aripiprazole [Abilify] Allergy Unknown gain weight Verified 02/24/21 01:27 paliperidone AdvReac dystonia Verified 02/24/21 01:27 Assessment & Plan Assessment & Plan (1) Depression, major, recurrent, severe with psychosis: Status: Acute Code(s): F33.3 - Major depressive disorder, recurrent, severe with psychotic symptoms Assessment and Plan: 20 yo female, hx of depression with psychosis, cannabis and cocaine use disorder. Recent discharge from 02/13/21. It is unclear if pt was compliant with medications after discharge. UTox negative on 02/24 and 02/26. -Rule out bipolar disorder with psychosis vs schizoaffective disorder-bipolar type vs schizophrenia. -Continue Geodon 60 mg po bid -Olanzapine prn -Klonopin 0.25 mg bid -Mother has been granted temporary guardianship until 05/10/21, pt's scheduled court date. -Pt may need application for civil commitment. -Hydrocortisone topical to hands (eczema) 03/06/21: Continue current medication regime. Pt to consider addition of a mood stabilizer-?Lamictal trial 03/07/21: Refuses Lamictal trial-mom asks that we keep the discussion open. Today refusing to connect with family, OP team and stating just get me to rehab. No med changes today. Will approach to increase Geodon and begin Lamictal 03/08. 03/08/21: Pt improving-connecting with family, team. Asks to consolidate Klonopin to HS. Considering Lamictal. Appears to be clearing on current Geodon dosage, will hold on increase at this time. 03/09/21: Continues to improve and gain her strength, self esteem. Greater than 50% of the session was spent on counseling and/or coordination of care Reason for contiued inpatient stay Substantial Risk for: harm to self, inability to function and rapid decompensation
[2021-03-09 20:25] VITALS: BP 129/61; PULSE 107
[2021-03-09] MEDS: Prazosin HCL 1 MG CAPSULE 2 MG PO (20:25)
[2021-03-09] MEDS: clonazePAM 0.5 MG TABLET PO (20:26)
[2021-03-10] MEDS: Benztropine Mesylate 1 MG TABLET PO ×2 (08:44→20:00)
[2021-03-10] MEDS: Ziprasidone 20 MG CAPSULE 60 MG PO ×2 (08:44→20:00)
[2021-03-10] MEDS: Nicotine Polacrilex 2 MG GUM 4 MG BUCCAL ×3 (09:26→20:00)
[2021-03-10 17:35] VITALS: BP 107/66; PULSE 77; TEMP 36.7; O2SAT 97
--- NOTE | 2021-03-10 17:49 | HO.PSYCHPN ---
Subjective Subjective Date of Service: 03/10/21 Reason For Visit: Psychosis Interim History: What do I want for myself? I would like to choose my friends and relationships better. I want to be a success again. Discussed individual goals with pt today. Medication Compliance: Yes Side effects from medications: No Attending Groups: No Review of Systems Psychiatric: Reports anxiety, Reports depression, Reports auditory hallucinations, Reports irritability and Reports paranoia Mental Status Exam Mental Status Exam Patient Appearance: Appropriate Patient Orientation: Person, Place, Time and Situation Level of Consciousness: Alert Patient Behavior: Talkative and Good Eye Contact Mood Description: Suspicious (decreasing) and Withdrawn Affect Description: Flat Patient Cognition Impaired: Yes Ability to Follow Directions: Fair Speech Pattern: Spontaneous Speech Memory Description: Episodic Impaired Hallucinations: Auditory Delusions: Paranoid Ideation Thought Process: Distracted and Rumination Thought Content: positive for [place] and positive for Circumstantial Depressive Symptoms: Diff. Making Decisions, Feelings of Worthlessness, Hopelessness, Unhappiness, Low Self Esteem and Difficulty Concentrating Judgement: Fair Diagnostics Vital Signs (24Hr): Vital Signs - 24 hr 03/09/21 18:00 03/09/21 20:25 03/10/21 17:35 Temperature 97.8 F 98.1 F Pulse Rate 85 107 H 77 Blood Pressure 129/61 129/61 107/66 Pulse Oximetry 97 Body Mass Index 22.9 Medications Medications Current Medications Generic Name Dose Route Start Last Admin Trade Name Freq PRN Reason Stop Dose Admin Acetaminophen 650 mg 02/27/21 20:08 Acetaminophen 325 Mg Tablet PO Q6H PRN Headache/Pain Mild Scale (1-3) Al Hydroxide/Mg Hydroxide 30 ml 02/27/21 20:08 Magnesium Hydrox/Alum Hydrox 30 Ml Oral.Susp PO Q6H PRN Heartburn/Nausea Albuterol Sulfate 2 puff 03/02/21 21:23 Albuterol Sulfate 90 Mcg 8 Gm Inhaler INHALE RQ4H PRN Shortness of Breath Benztropine Mesylate 1 mg 02/27/21 21:00 03/10/21 08:44 Benztropine Mesylate 1 Mg Tablet PO 1 mg BID DUSTIN Administration Clonazepam 0.5 mg 03/02/21 21:41 Clonazepam 0.5 Mg Tablet PO DAILY PRN SEVERE anxiety/panic Clonazepam 0.5 mg 03/08/21 21:00 03/09/21 20:26 Clonazepam 0.5 Mg Tablet PO 0.5 mg BEDTIME DUSTIN Administration Hydrocortisone 1 appl 03/04/21 21:00 03/10/21 09:01 Hydrocortisone 1 % Cream 28.35 Gm Tube TOPICAL Not Given BID DUSTIN Protocol Hydroxyzine HCl 25 mg 02/27/21 20:08 03/07/21 20:04 Hydroxyzine Hcl 25 Mg Tablet PO 25 mg BEDTIME PRN Administration Anxiety Magnesium Hydroxide 30 ml 02/27/21 20:08 Milk Of Magnesia 30 Ml Oral.Susp PO DAILY PRN Constipation Melatonin 6 mg 02/27/21 20:09 03/07/21 20:04 Melatonin 3 Mg Tablet PO 6 mg BEDTIME PRN Administration Insomnia Multi-Ingred Cream/Lotion/Oil/Oint 1 appl 03/03/21 19:30 Mineral Oil/Petrolatum,White 106 Gm Tube TOPICAL TID PRN dry skin Nicotine Polacrilex 4 mg 02/27/21 20:08 03/10/21 17:32 Nicotine Polacrilex 2 Mg Gum BUCCAL 4 mg Q2H PRN Administration Nicotine Cravings Patient Own Med 1 each 03/04/21 09:00 03/10/21 09:02 Compound W Strips PO Not Given DAILY DUSTIN Olanzapine 5 mg 02/28/21 10:50 03/08/21 23:38 Olanzapine 5 Mg Tablet PO 5 mg TID PRN Administration agitation Prazosin HCl 2 mg 02/27/21 21:00 03/09/21 20:25 Prazosin Hcl 1 Mg Capsule PO 2 mg BEDTIME DUSTIN Administration Protocol Trazodone HCl 150 mg 02/27/21 20:09 03/07/21 20:03 Trazodone Hcl 50 Mg Tablet PO 150 mg BEDTIME PRN Administration Insomnia Ziprasidone 60 mg 03/04/21 21:00 03/10/21 08:44 Ziprasidone 20 Mg Capsule PO 60 mg BID DUSTIN Administration Allergies Allergies Allergy/AdvReac Type Severity Reaction Status Date / Time risperidone [From Risperdal] Allergy Mild gain weight Verified 02/24/21 01:27 aripiprazole [Abilify] Allergy Unknown gain weight Verified 02/24/21 01:27 paliperidone AdvReac dystonia Verified 02/24/21 01:27 Assessment & Plan Assessment & Plan (1) Depression, major, recurrent, severe with psychosis: Status: Acute Code(s): F33.3 - Major depressive disorder, recurrent, severe with psychotic symptoms Assessment and Plan: 20 yo female, hx of depression with psychosis, cannabis and cocaine use disorder. Recent discharge from 02/13/21. It is unclear if pt was compliant with medications after discharge. UTox negative on 02/24 and 02/26. -Rule out bipolar disorder with psychosis vs schizoaffective disorder-bipolar type vs schizophrenia. -Continue Geodon 60 mg po bid -Olanzapine prn -Klonopin 0.25 mg bid -Mother has been granted temporary guardianship until 05/10/21, pt's scheduled court date. -Pt may need application for civil commitment. -Hydrocortisone topical to hands (eczema) 03/06/21: Continue current medication regime. Pt to consider addition of a mood stabilizer-?Lamictal trial 03/07/21: Refuses Lamictal trial-mom asks that we keep the discussion open. Today refusing to connect with family, OP team and stating just get me to rehab. No med changes today. Will approach to increase Geodon and begin Lamictal 03/08. 03/08/21: Pt improving-connecting with family, team. Asks to consolidate Klonopin to HS. Considering Lamictal. Appears to be clearing on current Geodon dosage, will hold on increase at this time. 03/09/21: Continues to improve and gain her strength, self esteem. 03/10/21: Improving, focusing on self-family meeting this week, focusing on goals, tolerating meds, no SE noted. Greater than 50% of the session was spent on counseling and/or coordination of care Reason for contiued inpatient stay Substantial Risk for: harm to self, inability to function and rapid decompensation
[2021-03-10 19:59] VITALS: BP 107/73; PULSE 82
[2021-03-10] MEDS: Prazosin HCL 1 MG CAPSULE 2 MG PO (19:59)
[2021-03-10] MEDS: clonazePAM 0.5 MG TABLET PO (20:00)
[2021-03-11 06:00] VITALS: BP 101/66; PULSE 64; RESP 16; TEMP 36.3; O2SAT 99
[2021-03-11] MEDS: Ziprasidone 20 MG CAPSULE 60 MG PO ×2 (08:47→21:09)
[2021-03-11] MEDS: Nicotine Polacrilex 2 MG GUM 4 MG BUCCAL (08:48)
[2021-03-11] MEDS: Benztropine Mesylate 1 MG TABLET PO ×2 (10:08→21:16)
--- NOTE | 2021-03-11 12:23 | HO.PSYCHPN ---
Subjective Subjective Date of Service: 03/11/21 Reason For Visit: Psychosis Interim History: pt reports she is fine, no complaints or requests. states she is eating, sleeping, getting alone with others well. per staff, not attending groups. having disorganized OCD thoughts. isolative. Mental Status Exam Mental Status Exam Narrative: calm, cooperative. appearing guarded or uncomfortable, sitting in bed. PMR. speech soft and flat, nml in rate and decr in amount. thoughts linear and logical in brief interaction. affect blunted. mood good. no SI/HI/AVH expressed. Diagnostics Vital Signs (24Hr): Vital Signs - 24 hr 03/10/21 17:35 03/10/21 19:59 03/11/21 06:00 Temperature 98.1 F 97.3 F Pulse Rate 77 82 64 Respiratory Rate 16 Blood Pressure 107/66 107/73 101/66 Pulse Oximetry 97 99 Body Mass Index 22.9 Medications Medications Current Medications Generic Name Dose Route Start Last Admin Trade Name Freq PRN Reason Stop Dose Admin Acetaminophen 650 mg 02/27/21 20:08 Acetaminophen 325 Mg Tablet PO Q6H PRN Headache/Pain Mild Scale (1-3) Al Hydroxide/Mg Hydroxide 30 ml 02/27/21 20:08 Magnesium Hydrox/Alum Hydrox 30 Ml Oral.Susp PO Q6H PRN Heartburn/Nausea Albuterol Sulfate 2 puff 03/02/21 21:23 Albuterol Sulfate 90 Mcg 8 Gm Inhaler INHALE RQ4H PRN Shortness of Breath Benztropine Mesylate 1 mg 02/27/21 21:00 03/11/21 10:08 Benztropine Mesylate 1 Mg Tablet PO 1 mg BID DUSTIN Administration Clonazepam 0.5 mg 03/02/21 21:41 Clonazepam 0.5 Mg Tablet PO DAILY PRN SEVERE anxiety/panic Clonazepam 0.5 mg 03/08/21 21:00 03/10/21 20:00 Clonazepam 0.5 Mg Tablet PO 0.5 mg BEDTIME DUSTIN Administration Hydrocortisone 1 appl 03/04/21 21:00 03/11/21 10:08 Hydrocortisone 1 % Cream 28.35 Gm Tube TOPICAL Not Given BID DUSTIN Protocol Hydroxyzine HCl 25 mg 02/27/21 20:08 03/07/21 20:04 Hydroxyzine Hcl 25 Mg Tablet PO 25 mg BEDTIME PRN Administration Anxiety Magnesium Hydroxide 30 ml 02/27/21 20:08 Milk Of Magnesia 30 Ml Oral.Susp PO DAILY PRN Constipation Melatonin 6 mg 02/27/21 20:09 03/07/21 20:04 Melatonin 3 Mg Tablet PO 6 mg BEDTIME PRN Administration Insomnia Multi-Ingred Cream/Lotion/Oil/Oint 1 appl 03/03/21 19:30 Mineral Oil/Petrolatum,White 106 Gm Tube TOPICAL TID PRN dry skin Nicotine Polacrilex 4 mg 02/27/21 20:08 03/11/21 08:48 Nicotine Polacrilex 2 Mg Gum BUCCAL 4 mg Q2H PRN Administration Nicotine Cravings Patient Own Med 1 each 03/04/21 09:00 03/11/21 10:09 Compound W Strips PO Not Given DAILY DUSTIN Olanzapine 5 mg 02/28/21 10:50 03/08/21 23:38 Olanzapine 5 Mg Tablet PO 5 mg TID PRN Administration agitation Prazosin HCl 2 mg 02/27/21 21:00 03/10/21 19:59 Prazosin Hcl 1 Mg Capsule PO 2 mg BEDTIME DUSTIN Administration Protocol Trazodone HCl 150 mg 02/27/21 20:09 03/07/21 20:03 Trazodone Hcl 50 Mg Tablet PO 150 mg BEDTIME PRN Administration Insomnia Ziprasidone 60 mg 03/04/21 21:00 03/11/21 08:47 Ziprasidone 20 Mg Capsule PO 60 mg BID DUSTIN Administration Allergies Allergies Allergy/AdvReac Type Severity Reaction Status Date / Time risperidone [From Risperdal] Allergy Mild gain weight Verified 02/24/21 01:27 aripiprazole [Abilify] Allergy Unknown gain weight Verified 02/24/21 01:27 paliperidone AdvReac dystonia Verified 02/24/21 01:27 Assessment & Plan Assessment & Plan (1) Depression, major, recurrent, severe with psychosis: Status: Acute Code(s): F33.3 - Major depressive disorder, recurrent, severe with psychotic symptoms Assessment and Plan: 20 yo female, hx of depression with psychosis, cannabis and cocaine use disorder. Recent discharge from 02/13/21. It is unclear if pt was compliant with medications after discharge. UTox negative on 02/24 and 02/26. -Rule out bipolar disorder with psychosis vs schizoaffective disorder-bipolar type vs schizophrenia. -Continue Geodon 60 mg po bid -Olanzapine prn -Klonopin 0.25 mg bid -Mother has been granted temporary guardianship until 05/10/21, pt's scheduled court date. -Pt may need application for civil commitment. -Hydrocortisone topical to hands (eczema) 03/06/21: Continue current medication regime. Pt to consider addition of a mood stabilizer-?Lamictal trial 03/07/21: Refuses Lamictal trial-mom asks that we keep the discussion open. Today refusing to connect with family, OP team and stating just get me to rehab. No med changes today. Will approach to increase Geodon and begin Lamictal 03/08. 03/08/21: Pt improving-connecting with family, team. Asks to consolidate Klonopin to HS. Considering Lamictal. Appears to be clearing on current Geodon dosage, will hold on increase at this time. 03/09/21: Continues to improve and gain her strength, self esteem. 03/10/21: Improving, focusing on self-family meeting this week, focusing on goals, tolerating meds, no SE noted. 03/11/21: stable, no change in presentation. Greater than 50% of the session was spent on counseling and/or coordination of care Reason for contiued inpatient stay Substantial Risk for: inability to function and rapid decompensation
[2021-03-11 18:00] VITALS: BP 113/63; PULSE 73; TEMP 36.2
[2021-03-11] MEDS: clonazePAM 0.5 MG TABLET PO (21:09)
[2021-03-11 21:10] VITALS: BP 113/63; PULSE 73
[2021-03-11] MEDS: Prazosin HCL 1 MG CAPSULE 2 MG PO (21:10)
[2021-03-12] MEDS: Ziprasidone 20 MG CAPSULE 60 MG PO (08:22)
[2021-03-12] MEDS: Benztropine Mesylate 1 MG TABLET PO ×2 (08:22→20:52)
--- NOTE | 2021-03-12 18:16 | P.PNPSI_ITS ---
Subjective Subjective Date of Service: 03/12/21 Reason For Visit: Psychosis Subjective Notes: Conditional Voluntary Healthcare Proxy: No Guardianship: Yes (until 05/10/21 when pt's care will be re-evaluated) Medical Problems Affecting Mental Status: No Interim History: Linae and her mother did decide to trial Lamictal. In addition, she requested to re-start Sprintec. Discussed with pt that the combination would possibly decrease efficacy of Sprintec-pt will increase HS dose of Geodon to 60 mg and continue a.m. dose of 60 mg. Message left for pt's mother to discuss this interaction and plan change and discussed with pt's mother at 1830. Medication Compliance: Yes Side effects from medications: No Attending Groups: Yes Review of Systems Psychiatric: Reports anxiety, Reports depression, Reports difficulty concentrating, Reports irritability, Reports mood swings and Reports paranoia Mental Status Exam Mental Status Exam Patient Appearance: Appropriate Patient Orientation: Person, Place, Time and Situation Level of Consciousness: Alert Patient Behavior: Appropriate, Talkative, Cooperative and Good Eye Contact Mood Description: Flat Affect Description: Flat Patient Cognition Impaired: Yes Ability to Follow Directions: Fair Speech Pattern: Perseverating, Spontaneous Speech and Soft-Spoken Memory Description: Remote Impaired and Episodic Impaired Hallucinations: Auditory (diminished per pt) Delusions: Paranoid Ideation (decreasing per pt) Thought Process: Goal Oriented Thought Content: positive for [place], positive for Goal Oriented, positive for Perseveration and positive for Suicidal Ideation (denies) Depressive Symptoms: Increased Anxiety, Increased Irritability and Low Self Esteem Abnormal Motor Activity Signs and Symptoms: Restlessness Judgement: Fair Diagnostics Vital Signs (24Hr): Vital Signs - 24 hr 03/11/21 21:10 Pulse Rate 73 Blood Pressure 113/63 Body Mass Index 22.9 Medications Medications Current Medications Generic Name Dose Route Start Last Admin Trade Name Freq PRN Reason Stop Dose Admin Acetaminophen 650 mg 02/27/21 20:08 Acetaminophen 325 Mg Tablet PO Q6H PRN Headache/Pain Mild Scale (1-3) Al Hydroxide/Mg Hydroxide 30 ml 02/27/21 20:08 Magnesium Hydrox/Alum Hydrox 30 Ml Oral.Susp PO Q6H PRN Heartburn/Nausea Albuterol Sulfate 2 puff 03/02/21 21:23 Albuterol Sulfate 90 Mcg 8 Gm Inhaler INHALE RQ4H PRN Shortness of Breath Benztropine Mesylate 1 mg 02/27/21 21:00 03/12/21 08:22 Benztropine Mesylate 1 Mg Tablet PO 1 mg BID DUSTIN Administration Clonazepam 0.5 mg 03/02/21 21:41 Clonazepam 0.5 Mg Tablet PO DAILY PRN SEVERE anxiety/panic Clonazepam 0.5 mg 03/08/21 21:00 03/11/21 21:09 Clonazepam 0.5 Mg Tablet PO 0.5 mg BEDTIME DUSTIN Administration Hydrocortisone 1 appl 03/04/21 21:00 03/12/21 10:10 Hydrocortisone 1 % Cream 28.35 Gm Tube TOPICAL Not Given BID DUSTIN Protocol Hydroxyzine HCl 25 mg 02/27/21 20:08 03/07/21 20:04 Hydroxyzine Hcl 25 Mg Tablet PO 25 mg BEDTIME PRN Administration Anxiety Magnesium Hydroxide 30 ml 02/27/21 20:08 Milk Of Magnesia 30 Ml Oral.Susp PO DAILY PRN Constipation Melatonin 6 mg 02/27/21 20:09 03/07/21 20:04 Melatonin 3 Mg Tablet PO 6 mg BEDTIME PRN Administration Insomnia Multi-Ingred Cream/Lotion/Oil/Oint 1 appl 03/03/21 19:30 Mineral Oil/Petrolatum,White 106 Gm Tube TOPICAL TID PRN dry skin Nicotine Polacrilex 4 mg 02/27/21 20:08 03/11/21 08:48 Nicotine Polacrilex 2 Mg Gum BUCCAL 4 mg Q2H PRN Administration Nicotine Cravings Patient Own Med 1 each 03/04/21 09:00 03/12/21 10:12 Compound W Strips PO 1 each DAILY DUSTIN Administration Patient Own 1 each 03/13/21 10:30 Medication ( PO Norgestimat/Eth Est DAILY DUSTIN 0.25/0.035 Tablet) Olanzapine 5 mg 02/28/21 10:50 03/08/21 23:38 Olanzapine 5 Mg Tablet PO 5 mg TID PRN Administration agitation Prazosin HCl 2 mg 02/27/21 21:00 03/11/21 21:10 Prazosin Hcl 1 Mg Capsule PO 2 mg BEDTIME DUSTIN Administration Protocol Trazodone HCl 150 mg 02/27/21 20:09 03/07/21 20:03 Trazodone Hcl 50 Mg Tablet PO 150 mg BEDTIME PRN Administration Insomnia Ziprasidone 60 mg 03/13/21 09:00 Ziprasidone 60 Mg Capsule PO DAILY DUSTIN Ziprasidone 80 mg 03/12/21 21:00 Ziprasidone 80 Mg Capsule PO BEDTIME DUSTIN Allergies Allergies Allergy/AdvReac Type Severity Reaction Status Date / Time risperidone [From Risperdal] Allergy Mild gain weight Verified 02/24/21 01:27 aripiprazole [Abilify] Allergy Unknown gain weight Verified 02/24/21 01:27 paliperidone AdvReac dystonia Verified 02/24/21 01:27 Assessment & Plan Assessment & Plan (1) Depression, major, recurrent, severe with psychosis: Status: Acute Code(s): F33.3 - Major depressive disorder, recurrent, severe with psychotic symptoms Assessment and Plan: 20 yo female, hx of depression with psychosis, cannabis and cocaine use disorder. Recent discharge from 02/13/21. It is unclear if pt was compliant with medications after discharge. UTox negative on 02/24 and 02/26. -Rule out bipolar disorder with psychosis vs schizoaffective disorder-bipolar type vs schizophrenia. -Continue Geodon 60 mg po bid -Olanzapine prn -Klonopin 0.25 mg bid -Mother has been granted temporary guardianship until 05/10/21, pt's scheduled court date. -Pt may need application for civil commitment. -Hydrocortisone topical to hands (eczema) 03/06/21: Continue current medication regime. Pt to consider addition of a mood stabilizer-?Lamictal trial 03/07/21: Refuses Lamictal trial-mom asks that we keep the discussion open. Today refusing to connect with family, OP team and stating just get me to rehab. No med changes today. Will approach to increase Geodon and begin Lamictal 03/08. 03/08/21: Pt improving-connecting with family, team. Asks to consolidate Klonopin to HS. Considering Lamictal. Appears to be clearing on current Geodon dosage, will hold on increase at this time. 03/09/21: Continues to improve and gain her strength, self esteem. 03/10/21: Improving, focusing on self-family meeting this week, focusing on goals, tolerating meds, no SE noted. 03/11/21: stable, no change in presentation. 03/12/21: Geodon increase to 60 mg a.m. 80 mg p.m. Pt to re-start Sprintec. We will not add Lamictal due to potential interaction with Sprntec and decrease of efficacy. Greater than 50% of the session was spent on counseling and/or coordination of care Reason for contiued inpatient stay Substantial Risk for: harm to self, inability to function and rapid decompensation
[2021-03-12 20:40] VITALS: BP 123/64; PULSE 84; TEMP 28.8
[2021-03-12 20:52] VITALS: BP 123/64; PULSE 84
[2021-03-12] MEDS: Prazosin HCL 1 MG CAPSULE 2 MG PO (20:52)
[2021-03-12] MEDS: clonazePAM 0.5 MG TABLET PO (20:53)
[2021-03-12] MEDS: Ziprasidone 80 MG CAPSULE PO (21:02)
[2021-03-13 05:40] VITALS: BP 110/67; PULSE 111; TEMP 36.1
[2021-03-13 08:00] VITALS: BP 110/74; PULSE 104
[2021-03-13] MEDS: Prazosin HCL 1 MG CAPSULE 2 MG PO (08:00)
[2021-03-13] MEDS: Ziprasidone 60 MG CAPSULE PO (08:25)
[2021-03-13] MEDS: Benztropine Mesylate 1 MG TABLET PO ×2 (08:25→20:16)
[2021-03-13 18:00] VITALS: BP 110/74; PULSE 104; TEMP 36.8
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
[2021-03-13] MEDS: Ziprasidone 80 MG CAPSULE PO (20:16)
[2021-03-13] MEDS: clonazePAM 0.5 MG TABLET PO (20:16)
[2021-03-14 07:00] VITALS: BMI 24.3
[2021-03-14] MEDS: Ziprasidone 60 MG CAPSULE PO (08:51)
[2021-03-14] MEDS: Benztropine Mesylate 1 MG TABLET PO ×2 (08:51→20:15)
[2021-03-14] MEDS: Hydrocortisone 1 % Cream 28.35 GM TUBE 1 APPL TOPICAL (08:51)
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
[2021-03-14] MEDS: Nicotine Polacrilex 2 MG GUM 4 MG BUCCAL ×2 (16:20→20:15)
[2021-03-14 18:00] VITALS: BP 117/85; PULSE 89; TEMP 37.1
[2021-03-14] MEDS: clonazePAM 0.5 MG TABLET PO (20:15)
[2021-03-14] MEDS: Ziprasidone 80 MG CAPSULE PO (20:15)
[2021-03-14 20:16] VITALS: BP 110/70; PULSE 75
[2021-03-14] MEDS: Prazosin HCL 1 MG CAPSULE 2 MG PO (20:16)
[2021-03-15] MEDS: Ziprasidone 60 MG CAPSULE PO (09:49)
[2021-03-15] MEDS: Benztropine Mesylate 1 MG TABLET PO ×2 (09:49→20:14)
[2021-03-15] MEDS: Albuterol Sulfate 90 MCG 8 GM INHALER 2 PUFF INHALE (09:51)
[2021-03-15] MEDS: clonazePAM 0.5 MG TABLET PO ×2 (11:44→20:14)
--- NOTE | 2021-03-15 17:02 | HO.PSYCHPN ---
Subjective Subjective Date of Service: 03/15/21 Reason For Visit: Psychosis Subjective Notes: Conditional Voluntary Healthcare Proxy: No Guardianship: Yes Medical Problems Affecting Mental Status: No Interim History: Labile. Family meeting with mom. Discussed Lamictal trial with control risks discussed. Pt will trial. Will begin dosing this evening. Focused on wanting to discharge, feeling mom made fun of her concerns about having a pimple on her back, wanting to go to college for dental training, guilt about the past. Mother was supportive, reassuring yet honest about pt's perspectives. Pt did leave the meeting once due to frustration, yet returned. Pt at times was very tearful, frustrated, then happy, content, euthymic. Discussed pt sounding slurred on the phone with mom last night~10pm approx 2 hours after taking HS meds. Medication Compliance: Yes Side effects from medications: No Attending Groups: Intermittent Review of Systems Reports behavioral changes Psychiatric: Reports anxiety, Reports behavioral changes, Reports depression, Reports difficulty concentrating, Reports auditory hallucinations, Reports hopelessness, Reports irritability, Reports anhedonia, Reports mood swings, Reports paranoia and Reports suicidal ideation (denies) Mental Status Exam Mental Status Exam Patient Appearance: Fatigued Patient Orientation: Person, Place, Time and Situation Level of Consciousness: Alert Patient Behavior: Talkative, Suspicious, Restless, Anxious, Fearful, Resistive to Care, Avoidant, Distractible, Good Eye Contact, Crying and Pacing Mood Description: Labile Affect Description: Labile Patient Cognition Impaired: Yes Ability to Follow Directions: Good Speech Pattern: Perseverating, Spontaneous Speech, Rambling, Cofabulation and Pressured Memory Description: Remote Impaired and Episodic Impaired Hallucinations: Auditory Delusions: Paranoid Ideation and Present Thought Process: Racing, Distracted and Rumination Thought Content: positive for [place], positive for Circumstantial, positive for Perseveration, positive for Tangential and positive for Suicidal Ideation (denies) Depressive Symptoms: Increased Anxiety, Diff. Making Decisions, Increased Irritability, Feelings of Worthlessness, Hopelessness, Feelings of Guilt, Unhappiness, Thoughts of /Suicide (denies), Low Self Esteem and Difficulty Concentrating Abnormal Motor Activity Signs and Symptoms: Restlessness Judgement: Fair Diagnostics Vital Signs (24Hr): Vital Signs - 24 hr 03/14/21 18:00 03/14/21 20:16 Temperature 98.8 F Pulse Rate 89 75 Blood Pressure 117/85 110/70 Body Mass Index 24.3 Medications Medications Current Medications Generic Name Dose Route Start Last Admin Trade Name Freq PRN Reason Stop Dose Admin Acetaminophen 650 mg 02/27/21 20:08 Acetaminophen 325 Mg Tablet PO Q6H PRN Headache/Pain Mild Scale (1-3) Al Hydroxide/Mg Hydroxide 30 ml 02/27/21 20:08 Magnesium Hydrox/Alum Hydrox 30 Ml Oral.Susp PO Q6H PRN Heartburn/Nausea Albuterol Sulfate 2 puff 03/02/21 21:23 03/15/21 09:51 Albuterol Sulfate 90 Mcg 8 Gm Inhaler INHALE 2 puff RQ4H PRN Administration Shortness of Breath Benztropine Mesylate 1 mg 02/27/21 21:00 03/15/21 09:49 Benztropine Mesylate 1 Mg Tablet PO 1 mg BID DUSTIN Administration Clonazepam 0.5 mg 03/02/21 21:41 03/15/21 11:44 Clonazepam 0.5 Mg Tablet PO 0.5 mg DAILY PRN Administration SEVERE anxiety/panic Clonazepam 0.5 mg 03/08/21 21:00 03/14/21 20:15 Clonazepam 0.5 Mg Tablet PO 0.5 mg BEDTIME DUSTIN Administration Hydrocortisone 1 appl 03/04/21 21:00 03/15/21 09:52 Hydrocortisone 1 % Cream 28.35 Gm Tube TOPICAL Not Given BID [facility] Protocol Hydroxyzine HCl 25 mg 02/27/21 20:08 03/07/21 20:04 Hydroxyzine Hcl 25 Mg Tablet PO 25 mg BEDTIME PRN Administration Anxiety Lamotrigine 25 mg 03/15/21 21:00 Lamotrigine 25 Mg Tablet PO BEDTIME DUSTIN Magnesium Hydroxide 30 ml 02/27/21 20:08 Milk Of Magnesia 30 Ml Oral.Susp PO DAILY PRN Constipation Melatonin 6 mg 02/27/21 20:09 03/07/21 20:04 Melatonin 3 Mg Tablet PO 6 mg BEDTIME PRN Administration Insomnia Multi-Ingred Cream/Lotion/Oil/Oint 1 appl 03/03/21 19:30 Mineral Oil/Petrolatum,White 106 Gm Tube TOPICAL TID PRN dry skin Nicotine Polacrilex 4 mg 02/27/21 20:08 03/14/21 20:15 Nicotine Polacrilex 2 Mg Gum BUCCAL 4 mg Q2H PRN Administration Nicotine Cravings Patient Own Med 1 each 03/04/21 09:00 03/15/21 09:52 Compound W Strips PO Not Given DAILY DUSTIN Patient Own 1 each 03/13/21 10:30 03/15/21 09:50 Medication ( PO 1 each Norgestimat/Eth Est DAILY DUSTIN Administration 0.25/0.035 Tablet) Olanzapine 5 mg 02/28/21 10:50 03/08/21 23:38 Olanzapine 5 Mg Tablet PO 5 mg TID PRN Administration agitation Prazosin HCl 2 mg 02/27/21 21:00 03/14/21 20:16 Prazosin Hcl 1 Mg Capsule PO 2 mg BEDTIME DUSTIN Administration Protocol Trazodone HCl 150 mg 02/27/21 20:09 03/07/21 20:03 Trazodone Hcl 50 Mg Tablet PO 150 mg BEDTIME PRN Administration Insomnia Ziprasidone 60 mg 03/13/21 09:00 03/15/21 09:49 Ziprasidone 60 Mg Capsule PO 60 mg DAILY DUSTIN Administration Ziprasidone 80 mg 03/12/21 21:00 03/14/21 20:15 Ziprasidone 80 Mg Capsule PO 80 mg BEDTIME DUSTIN Administration Allergies Allergies Allergy/AdvReac Type Severity Reaction Status Date / Time risperidone [From Risperdal] Allergy Mild gain weight Verified 02/24/21 01:27 aripiprazole [Abilify] Allergy Unknown gain weight Verified 02/24/21 01:27 paliperidone AdvReac dystonia Verified 02/24/21 01:27 Assessment & Plan Assessment & Plan (1) Schizoaffective disorder, bipolar type: Status: Acute Code(s): F25.0 - Schizoaffective disorder, bipolar type Assessment and Plan: Begin Lamictal 25 mg HS Continue Geodon Greater than 50% of the session was spent on counseling and/or coordination of care Reason for contiued inpatient stay Substantial Risk for: harm to self, inability to function and rapid decompensation
[2021-03-15 18:00] VITALS: BP 150/104; PULSE 87; TEMP 36.2
[2021-03-15 20:13] VITALS: BP 150/104; PULSE 87
[2021-03-15] MEDS: lamoTRIgine 25 MG TABLET PO (20:13)
[2021-03-15] MEDS: Prazosin HCL 1 MG CAPSULE 2 MG PO (20:13)
[2021-03-15] MEDS: Ziprasidone 80 MG CAPSULE PO (20:14)
[2021-03-16] MEDS: traZODone HCL 50 MG TABLET 150 MG PO (02:55)
[2021-03-16] MEDS: Acetaminophen 325 MG TABLET 650 MG PO (05:03)
[2021-03-16 05:05] VITALS: BP 110/66; PULSE 87; RESP 18; O2SAT 98
[2021-03-16 06:00] VITALS: BP 118/70; PULSE 92; RESP 14; TEMP 36.7; O2SAT 98
[2021-03-16] MEDS: Ziprasidone 60 MG CAPSULE PO (08:54)
[2021-03-16] MEDS: Benztropine Mesylate 1 MG TABLET PO (08:54)
[2021-03-16] MEDS: clonazePAM 0.5 MG TABLET PO (09:13)
--- NOTE | 2021-03-16 11:13 | PC.NURSE ---
pt given handouts on medications per her request.
[2021-03-17] MEDS: Acetaminophen 325 MG TABLET 650 MG PO (05:55)
--- NOTE | 2021-03-17 06:41 | HO.PSYCHPN ---
Subjective Subjective Date of Service: 03/18/21 Reason For Visit: Psychosis Interim History: Pt mostly in bed today. She reports she is doing well. She reports some voices, worried about her safety in unit but denies SI/HI. She reports sleeping and eating well. She appears internally preoccupied, labile at times. She is taking medications as prescribed. superficially cooperative. Review of Systems Review of Systems Yes all other systems are reviewed and are negative (denies today) Reports behavioral changes, Reports confusion and Reports memory loss Psychiatric: Reports abnormal sleep pattern, Reports anxiety, Reports behavioral changes, Reports confusion, Reports depression, Reports difficulty concentrating, Reports auditory hallucinations, Reports hopelessness, Reports irritability, Reports anhedonia, Reports memory loss, Reports mood swings, Reports panic attacks, Reports paranoia, Reports hallucinations and Reports suicidal ideation (denies) Mental Status Exam Mental Status Exam Narrative: calm, cooperative. appearing guarded or uncomfortable, sitting in bed. PMR. speech soft and flat, nml in rate and decr in amount. thoughts linear and logical in brief interaction. affect blunted. mood good. no SI/HI/AVH expressed. Patient Appearance: Fatigued Patient Orientation: Person, Place, Time and Situation Level of Consciousness: Alert Patient Behavior: Talkative, Suspicious, Restless, Anxious, Fearful, Resistive to Care, Avoidant, Distractible, Good Eye Contact, Crying and Pacing Mood Description: Labile Affect Description: Labile Patient Cognition Impaired: Yes Ability to Follow Directions: Good Speech Pattern: Perseverating, Spontaneous Speech, Rambling, Cofabulation and Pressured Memory Description: Remote Impaired and Episodic Impaired Diagnostics Vital Signs (24Hr): Vital Signs - 24 hr 03/17/21 20:35 03/17/21 20:36 Temperature 97.8 F Pulse Rate 68 68 Blood Pressure 111/66 111/66 Body Mass Index 24.3 Medications Medications Current Medications Generic Name Dose Route Start Last Admin Trade Name Freq PRN Reason Stop Dose Admin Acetaminophen 650 mg 02/27/21 20:08 03/17/21 05:55 Acetaminophen 325 Mg Tablet PO 650 mg Q6H PRN Administration Headache/Pain Mild Scale (1-3) Al Hydroxide/Mg Hydroxide 30 ml 02/27/21 20:08 Magnesium Hydrox/Alum Hydrox 30 Ml Oral.Susp PO Q6H PRN Heartburn/Nausea Albuterol Sulfate 2 puff 03/02/21 21:23 03/15/21 09:51 Albuterol Sulfate 90 Mcg 8 Gm Inhaler INHALE 2 puff RQ4H PRN Administration Shortness of Breath Benztropine Mesylate 1 mg 02/27/21 21:00 03/17/21 20:37 Benztropine Mesylate 1 Mg Tablet PO 1 mg BID DUSTIN Administration Clonazepam 0.5 mg 03/02/21 21:41 03/17/21 08:38 Clonazepam 0.5 Mg Tablet PO 0.5 mg DAILY PRN Administration SEVERE anxiety/panic Clonazepam 0.5 mg 03/08/21 21:00 03/17/21 20:38 Clonazepam 0.5 Mg Tablet PO 0.5 mg BEDTIME DUSTIN Administration Hydrocortisone 1 appl 03/04/21 21:00 03/17/21 20:43 Hydrocortisone 1 % Cream 28.35 Gm Tube TOPICAL Not Given BID [facility] Protocol Hydroxyzine HCl 25 mg 02/27/21 20:08 03/07/21 20:04 Hydroxyzine Hcl 25 Mg Tablet PO 25 mg BEDTIME PRN Administration Anxiety Lamotrigine 25 mg 03/15/21 21:00 03/17/21 20:37 Lamotrigine 25 Mg Tablet PO 25 mg BEDTIME DUSTIN Administration Magnesium Hydroxide 30 ml 02/27/21 20:08 Milk Of Magnesia 30 Ml Oral.Susp PO DAILY PRN Constipation Melatonin 6 mg 02/27/21 20:09 03/07/21 20:04 Melatonin 3 Mg Tablet PO 6 mg BEDTIME PRN Administration Insomnia Multi-Ingred Cream/Lotion/Oil/Oint 1 appl 03/03/21 19:30 Mineral Oil/Petrolatum,White 106 Gm Tube TOPICAL TID PRN dry skin Nicotine Polacrilex 4 mg 02/27/21 20:08 03/17/21 22:46 Nicotine Polacrilex 2 Mg Gum BUCCAL 4 mg Q2H PRN Administration Nicotine Cravings Patient Own Med 1 each 03/04/21 09:00 03/17/21 08:05 Compound W Strips PO Not Given DAILY DUSTIN Patient Own 1 each 03/13/21 10:30 03/17/21 08:16 Medication ( PO 1 each Norgestimat/Eth Est DAILY DUSTIN Administration 0.25/0.035 Tablet) Olanzapine 5 mg 02/28/21 10:50 03/08/21 23:38 Olanzapine 5 Mg Tablet PO 5 mg TID PRN Administration agitation Prazosin HCl 2 mg 02/27/21 21:00 03/17/21 20:36 Prazosin Hcl 1 Mg Capsule PO 2 mg BEDTIME DUSTIN Administration Protocol Trazodone HCl 150 mg 02/27/21 20:09 03/16/21 02:55 Trazodone Hcl 50 Mg Tablet PO 150 mg BEDTIME PRN Administration Insomnia Ziprasidone 60 mg 03/13/21 09:00 03/17/21 08:02 Ziprasidone 60 Mg Capsule PO 60 mg DAILY DUSTIN Administration Ziprasidone 80 mg 03/12/21 21:00 03/17/21 20:38 Ziprasidone 80 Mg Capsule PO 80 mg BEDTIME DUSTIN Administration Allergies Allergies Allergy/AdvReac Type Severity Reaction Status Date / Time risperidone [From Risperdal] Allergy Mild gain weight Verified 02/24/21 01:27 aripiprazole [Abilify] Allergy Unknown gain weight Verified 02/24/21 01:27 paliperidone AdvReac dystonia Verified 02/24/21 01:27 Assessment & Plan Assessment & Plan (1) Schizoaffective disorder, bipolar type: Status: Acute Code(s): F25.0 - Schizoaffective disorder, bipolar type Assessment and Plan: Begin Lamictal 25 mg HS Continue Geodon Greater than 50% of the session was spent on counseling and/or coordination of care Reason for contiued inpatient stay Substantial Risk for: inability to function
[2021-03-17] MEDS: Benztropine Mesylate 1 MG TABLET PO ×2 (08:02→20:37)
[2021-03-17] MEDS: Ziprasidone 60 MG CAPSULE PO (08:02)
[2021-03-17] MEDS: Nicotine Polacrilex 2 MG GUM 4 MG BUCCAL ×2 (08:03→22:46)
[2021-03-17] MEDS: clonazePAM 0.5 MG TABLET PO ×2 (08:38→20:38)
[2021-03-17 20:35] VITALS: BP 111/66; PULSE 68; TEMP 36.6
[2021-03-17 20:36] VITALS: BP 111/66; PULSE 68
[2021-03-17] MEDS: Prazosin HCL 1 MG CAPSULE 2 MG PO (20:36)
[2021-03-17] MEDS: lamoTRIgine 25 MG TABLET PO (20:37)
[2021-03-17] MEDS: Ziprasidone 80 MG CAPSULE PO (20:38)
--- NOTE | 2021-03-18 | ECG_ITS ---
Test Reason : IRREGULAR HEARTBEAT Blood Pressure : / mmHG Vent. Rate : 054 BPM Atrial Rate : 054 BPM P-R Int : 166 ms QRS Dur : 086 ms QT Int : 428 ms P-R-T Axes : 022 067 034 degrees QTc Int : 405 ms Sinus bradycardia Otherwise normal ECG When compared with ECG of 11-FEB-2021 14:11, No significant change was found Referred By: Zee Washington Electronically Signed By:KOLE SEGUNDO
[2021-03-18 06:00] VITALS: BP 97/57; PULSE 77; RESP 18; TEMP 35.8; O2SAT 98
[2021-03-18] MEDS: Ziprasidone 60 MG CAPSULE PO (07:51)
[2021-03-18] MEDS: Nicotine Polacrilex 2 MG GUM 4 MG BUCCAL ×3 (07:51→21:54)
[2021-03-18] MEDS: Benztropine Mesylate 1 MG TABLET PO ×2 (07:51→19:54)
[2021-03-18] MEDS: clonazePAM 0.5 MG TABLET PO ×2 (07:51→19:55)
--- NOTE | 2021-03-18 17:16 | P.PNPSI_ITS ---
Subjective Subjective Date of Service: 03/18/21 Reason For Visit: Psychosis Subjective Notes: Conditional Voluntary Healthcare Proxy: No Guardianship: Yes Medical Problems Affecting Mental Status: No Interim History: Pt has reviewed medication SE templates and has decided she would like to change her regime. She reports 1. Klonopin-causing increase in salivation. 2. Benztropine-causing increase in salivation and muscle spasms in the back of her nect 3. Prazosin- causing weakness and vomiting 4. Lamictal- causing severe depression, weakness and shortness of breath 5. Geodon- causing irregular heartbeat and poor memory Pt also believes that medicines are effecting her liver and kidneys. Discussed not having bipolar illness, nor schizoaffective, but a reactive depression, not needing medications, so she will be stopping all meds. Agreed to meeting with her mother, guardian, at 1pm 03/19/21. Review of Systems Reports behavioral changes and Reports memory loss Psychiatric: Reports anxiety, Reports behavioral changes, Reports depression, Reports difficulty concentrating, Reports auditory hallucinations, Reports hopelessness, Reports irritability, Reports anhedonia, Reports memory loss, Reports mood swings, Reports paranoia and Reports suicidal ideation (denies) Mental Status Exam Mental Status Exam Patient Appearance: Appropriate Patient Orientation: Person, Place, Time and Situation Level of Consciousness: Alert Patient Behavior: Guarded, Talkative, Suspicious, Anxious, Resistive to Care, Distractible and Good Eye Contact Mood Description: Suspicious, Hostile and Angry Affect Description: Constricted Patient Cognition Impaired: Yes Ability to Follow Directions: Fair Speech Pattern: Perseverating and Spontaneous Speech Memory Description: Remote Impaired and Episodic Impaired Hallucinations: Auditory Delusions: Paranoid Ideation and Present Perceptual Disturbances: Depersonalization and Derealization Thought Process: Illogical, Distracted and Rumination Thought Content: positive for [place], positive for Perseveration, positive for Tangential and positive for Suicidal Ideation (denies) Depressive Symptoms: Increased Anxiety, Increased Irritability, Feelings of Worthlessness, Hopelessness, Isolating-Friends/Family, Thoughts of /Suicide (denies), Low Self Esteem, Loss of Energy and Difficulty Concentrating Judgement: Poor Diagnostics Vital Signs (24Hr): Vital Signs - 24 hr 03/17/21 20:35 03/17/21 20:36 03/18/21 06:00 Temperature 97.8 F 96.4 F L Pulse Rate 68 68 77 Respiratory Rate 18 Blood Pressure 111/66 111/66 97/57 L Pulse Oximetry 98 Body Mass Index 24.3 Medications Medications Current Medications Generic Name Dose Route Start Last Admin Trade Name Monsterq PRN Reason Stop Dose Admin Acetaminophen 650 mg 02/27/21 20:08 03/17/21 05:55 Acetaminophen 325 Mg Tablet PO 650 mg Q6H PRN Administration Headache/Pain Mild Scale (1-3) Al Hydroxide/Mg Hydroxide 30 ml 02/27/21 20:08 Magnesium Hydrox/Alum Hydrox 30 Ml Oral.Susp PO Q6H PRN Heartburn/Nausea Albuterol Sulfate 2 puff 03/02/21 21:23 03/15/21 09:51 Albuterol Sulfate 90 Mcg 8 Gm Inhaler INHALE 2 puff RQ4H PRN Administration Shortness of Breath Benztropine Mesylate 1 mg 02/27/21 21:00 03/18/21 07:51 Benztropine Mesylate 1 Mg Tablet PO 1 mg BID DUSTIN Administration Clonazepam 0.5 mg 03/02/21 21:41 03/18/21 07:51 Clonazepam 0.5 Mg Tablet PO 0.5 mg DAILY PRN Administration SEVERE anxiety/panic Clonazepam 0.5 mg 03/08/21 21:00 03/17/21 20:38 Clonazepam 0.5 Mg Tablet PO 0.5 mg BEDTIME DUSTIN Administration Hydrocortisone 1 appl 03/04/21 21:00 03/18/21 07:55 Hydrocortisone 1 % Cream 28.35 Gm Tube TOPICAL Not Given BID [facility] Protocol Hydroxyzine HCl 25 mg 02/27/21 20:08 03/07/21 20:04 Hydroxyzine Hcl 25 Mg Tablet PO 25 mg BEDTIME PRN Administration Anxiety Lamotrigine 25 mg 03/15/21 21:00 03/17/21 20:37 Lamotrigine 25 Mg Tablet PO 25 mg BEDTIME DUSTIN Administration Magnesium Hydroxide 30 ml 02/27/21 20:08 Milk Of Magnesia 30 Ml Oral.Susp PO DAILY PRN Constipation Melatonin 6 mg 02/27/21 20:09 03/07/21 20:04 Melatonin 3 Mg Tablet PO 6 mg BEDTIME PRN Administration Insomnia Multi-Ingred Cream/Lotion/Oil/Oint 1 appl 03/03/21 19:30 Mineral Oil/Petrolatum,White 106 Gm Tube TOPICAL TID PRN dry skin Nicotine Polacrilex 4 mg 02/27/21 20:08 03/18/21 14:56 Nicotine Polacrilex 2 Mg Gum BUCCAL 4 mg Q2H PRN Administration Nicotine Cravings Patient Own Med 1 each 03/04/21 09:00 03/18/21 07:55 Compound W Strips PO Not Given DAILY DUSTIN Patient Own 1 each 03/13/21 10:30 03/18/21 07:55 Medication ( PO 1 each Norgestimat/Eth Est DAILY DUSTIN Administration 0.25/0.035 Tablet) Olanzapine 5 mg 02/28/21 10:50 03/08/21 23:38 Olanzapine 5 Mg Tablet PO 5 mg TID PRN Administration agitation Prazosin HCl 2 mg 02/27/21 21:00 03/17/21 20:36 Prazosin Hcl 1 Mg Capsule PO 2 mg BEDTIME DUSTIN Administration Protocol Trazodone HCl 150 mg 02/27/21 20:09 03/16/21 02:55 Trazodone Hcl 50 Mg Tablet PO 150 mg BEDTIME PRN Administration Insomnia Ziprasidone 60 mg 03/13/21 09:00 03/18/21 07:51 Ziprasidone 60 Mg Capsule PO 60 mg DAILY DUSTIN Administration Ziprasidone 80 mg 03/12/21 21:00 03/17/21 20:38 Ziprasidone 80 Mg Capsule PO 80 mg BEDTIME DUSTIN Administration Allergies Allergies Allergy/AdvReac Type Severity Reaction Status Date / Time risperidone [From Risperdal] Allergy Mild gain weight Verified 02/24/21 01:27 aripiprazole [Abilify] Allergy Unknown gain weight Verified 02/24/21 01:27 paliperidone AdvReac dystonia Verified 02/24/21 01:27 Assessment & Plan Assessment & Plan (1) Schizoaffective disorder, bipolar type: Status: Acute Code(s): F25.0 - Schizoaffective disorder, bipolar type Assessment and Plan: Begin Lamictal 25 mg HS Continue Geodon Pt reporting medicine SE, wanting to change regime. Labs, EKG 03/19/21 Meeting with pt and mother 03/19/21 1pm. Greater than 50% of the session was spent on counseling and/or coordination of care Reason for contiued inpatient stay Substantial Risk for: harm to self, harm to others, inability to function and rapid decompensation
[2021-03-18 19:40] VITALS: BP 122/74; PULSE 84; TEMP 36.9
[2021-03-18] MEDS: Ziprasidone 80 MG CAPSULE PO (19:53)
[2021-03-18 19:54] VITALS: BP 122/74; PULSE 84
[2021-03-18] MEDS: Prazosin HCL 1 MG CAPSULE 2 MG PO (19:54)
[2021-03-18] MEDS: lamoTRIgine 25 MG TABLET PO (19:54)
[2021-03-18] MEDS: Hydrocortisone 1 % Cream 28.35 GM TUBE 1 APPL TOPICAL (19:59)
[2021-03-19 05:40] VITALS: BP 111/70; PULSE 70; RESP 16; TEMP 36.3; O2SAT 99
[2021-03-19] MEDS: Ziprasidone 60 MG CAPSULE PO ×2 (08:13→20:09)
[2021-03-19] MEDS: Benztropine Mesylate 1 MG TABLET PO (08:13)
[2021-03-19 08:20] LABS: Alanine Aminotransferase 25 U/L (0-31); Albumin Level 4.5 g/dL (3.5-5.0); Alkaline Phosphatase 37 U/L (39-117); Anion Gap 11 (12-20); Aspartate Amino Transferase 16 U/L (5-31); Bilirubin Total 0.6 mg/dL (0.0-1.0); Blood Urea Nitrogen 8 mg/dL (9-16); Calcium 9.4 mg/dL (8.4-10.2); Carbon Dioxide 29 mmol/L (22-29); Chloride 101 mmol/L (96-108); Creatinine Clr Calc Pharmacy 93.3; Estimated Glomerular Filt Rate > 60; Glucose Random 95 mg/dL (60-115); Sodium 137 mmol/L (135-145); Total Protein 6.9 g/dL (6.5-8.0)
[2021-03-19] MEDS: Nicotine Polacrilex 2 MG GUM 4 MG BUCCAL (10:36)
--- NOTE | 2021-03-19 11:07 | P.PNPSI_ITS ---
Subjective Subjective Date of Service: 03/19/21 Reason For Visit: Psychosis Subjective Notes: Conditional Voluntary Healthcare Proxy: No Guardianship: Yes Medical Problems Affecting Mental Status: No Interim History: Met with pt and mom (pt's guardian) to review pt concerns about medications. Pt reports she believes she has bad anxiety and severe depression. Her goal is to not use any medications as I feel like a zombie, cloudy and not all there. Review of past treatment [id number] in pt interventions, voluntary and involuntary, rehab stays due to weed, manic attacks, inability to control crying and panic. Reports headache, back and front- daily and is tearful when she reports I am afraid as my grandfather of aneurysm. States she took Tylenol and coughed up blood. Will do a headache workup, and check Iron Profile. Review of specific meds of concern. 1. Geodon-Pt reporting irregular heart rate, loss of memory- EKG with bradycardia, rate 54. Plan: will decrease to 60 mg bid, a decrease of 20 mg daily 2. Lamictal-Pt reporting severe depression, SOB, weakness. Mother reports she believes 25 mg has been significantly helpful in decreasing lability in the br ief time she has taken this. Plan: will decrease to 12.5 mg HS 3.Prazosin- Pt reporting weakness, vomiting, feeling zombie like. Will discontinue 4. Benztropine-reports increase in saliva production, muscle spasm in back and neck-Will discontinue. Discussed options such as amantadine, diphendydramine 5. Klonopin-increase in saliva production-Will discontinue standing dose and keep prn dose. Pt struggling with medications, SE, diagnoses, and prefers to not use any medications. She however, will hear mother's advice and keep working on sx. mgt. Review of Systems Constitutional: Reports headache(s) Reports headache(s) Reports behavioral changes and Reports headache(s) Psychiatric: Reports anxiety, Reports behavioral changes, Reports difficulty concentrating, Reports irritability, Reports mood swings, Reports paranoia and Reports suicidal ideation (denies) Mental Status Exam Mental Status Exam Patient Appearance: Appropriate Patient Orientation: Person, Place, Time and Situation Level of Consciousness: Alert Patient Behavior: Dependent, Guarded, Talkative, Suspicious, Anxious, Fearful, Resistive to Care, Avoidant, Distractible and Good Eye Contact Mood Description: Suspicious, Withdrawn, Constricted, Depressed, Hostile, Anxious, Labile, Angry, Sad, Nervous and Apprehensive Affect Description: Depressed, Anxious, Labile and Angry Patient Cognition Impaired: Yes Ability to Follow Directions: Good Speech Pattern: Perseverating, Spontaneous Speech, Soft-Spoken, Cofabulation and Pressured Memory Description: Remote Impaired and Episodic Impaired Hallucinations: Auditory Delusions: Present Thought Process: Distracted and Rumination Thought Content: positive for [place], positive for Circumstantial, positive for Perseveration, positive for Preoccupation, positive for Tangential and positive for Suicidal Ideation (denies) Depressive Symptoms: Increased Anxiety, Diff. Making Decisions, Loss of Energy and Difficulty Concentrating Judgement: Fair Diagnostics Vital Signs (24Hr): Vital Signs - 24 hr 03/18/21 19:40 03/18/21 19:54 03/19/21 05:40 Temperature 98.4 F 97.4 F Pulse Rate 84 84 70 Respiratory Rate 16 Blood Pressure 122/74 122/74 111/70 Pulse Oximetry 99 Body Mass Index 24.3 Labs Results: 03/19/21 07:48 Labs: Laboratory Results - last 48 hr 03/19/21 07:48 Sodium 137 Potassium 4.0 Chloride 101 Carbon Dioxide 29 Anion Gap 11 L BUN 8 L Creatinine 0.83 Estim Creat Clear Calc 93.3 Estimated GFR > 60 Random Glucose 95 Calcium 9.4 D Total Bilirubin 0.6 AST 16 ALT 25 Alkaline Phosphatase 37 L Total Protein 6.9 Albumin 4.5 Medications Medications Current Medications Generic Name Dose Route Start Last Admin Trade Name Freq PRN Reason Stop Dose Admin Acetaminophen 650 mg 02/27/21 20:08 03/17/21 05:55 Acetaminophen 325 Mg Tablet PO 650 mg Q6H PRN Administration Headache/Pain Mild Scale (1-3) Al Hydroxide/Mg Hydroxide 30 ml 02/27/21 20:08 Magnesium Hydrox/Alum Hydrox 30 Ml Oral.Susp PO Q6H PRN Heartburn/Nausea Albuterol Sulfate 2 puff 03/02/21 21:23 03/15/21 09:51 Albuterol Sulfate 90 Mcg 8 Gm Inhaler INHALE 2 puff RQ4H PRN Administration Shortness of Breath Benztropine Mesylate 1 mg 02/27/21 21:00 03/19/21 08:13 Benztropine Mesylate 1 Mg Tablet PO 1 mg BID DUSTIN Administration Clonazepam 0.5 mg 03/02/21 21:41 03/18/21 07:51 Clonazepam 0.5 Mg Tablet PO 0.5 mg DAILY PRN Administration SEVERE anxiety/panic Clonazepam 0.5 mg 03/08/21 21:00 03/18/21 19:55 Clonazepam 0.5 Mg Tablet PO 0.5 mg BEDTIME DUSTIN Administration Hydrocortisone 1 appl 03/04/21 21:00 03/19/21 08:21 Hydrocortisone 1 % Cream 28.35 Gm Tube TOPICAL Not Given BID DUSTIN Protocol Hydroxyzine HCl 25 mg 02/27/21 20:08 03/07/21 20:04 Hydroxyzine Hcl 25 Mg Tablet PO 25 mg BEDTIME PRN Administration Anxiety Lamotrigine 25 mg 03/15/21 21:00 03/18/21 19:54 Lamotrigine 25 Mg Tablet PO 25 mg BEDTIME DUSTIN Administration Magnesium Hydroxide 30 ml 02/27/21 20:08 Milk Of Magnesia 30 Ml Oral.Susp PO DAILY PRN Constipation Melatonin 6 mg 02/27/21 20:09 03/07/21 20:04 Melatonin 3 Mg Tablet PO 6 mg BEDTIME PRN Administration Insomnia Multi-Ingred Cream/Lotion/Oil/Oint 1 appl 03/03/21 19:30 Mineral Oil/Petrolatum,White 106 Gm Tube TOPICAL TID PRN dry skin Nicotine Polacrilex 4 mg 02/27/21 20:08 03/19/21 10:36 Nicotine Polacrilex 2 Mg Gum BUCCAL 4 mg Q2H PRN Administration Nicotine Cravings Patient Own Med 1 each 03/04/21 09:00 03/19/21 08:22 Compound W Strips PO Not Given DAILY DUSTIN Patient Own 1 each 03/13/21 10:30 03/19/21 09:48 Medication ( PO 1 each Norgestimat/Eth Est DAILY DUSTIN Administration 0.25/0.035 Tablet) Olanzapine 5 mg 02/28/21 10:50 03/08/21 23:38 Olanzapine 5 Mg Tablet PO 5 mg TID PRN Administration agitation Prazosin HCl 2 mg 02/27/21 21:00 03/18/21 19:54 Prazosin Hcl 1 Mg Capsule PO 2 mg BEDTIME DUSTIN Administration Protocol Trazodone HCl 150 mg 02/27/21 20:09 03/16/21 02:55 Trazodone Hcl 50 Mg Tablet PO 150 mg BEDTIME PRN Administration Insomnia Ziprasidone 60 mg 03/13/21 09:00 03/19/21 08:13 Ziprasidone 60 Mg Capsule PO 60 mg DAILY DUSTIN Administration Ziprasidone 80 mg 03/12/21 21:00 03/18/21 19:53 Ziprasidone 80 Mg Capsule PO 80 mg BEDTIME DUSTIN Administration Allergies Allergies Allergy/AdvReac Type Severity Reaction Status Date / Time risperidone [From Risperdal] Allergy Mild gain weight Verified 02/24/21 01:27 aripiprazole [Abilify] Allergy Unknown gain weight Verified 02/24/21 01:27 paliperidone AdvReac dystonia Verified 02/24/21 01:27 Assessment & Plan Assessment & Plan (1) Schizoaffective disorder, bipolar type: Status: Acute Code(s): F25.0 - Schizoaffective disorder, bipolar type Assessment and Plan: Decrease Lamictal to 12.5 mg hs Decrease Geodon to 60 mg bid Discontinue Klonopin, Benztropine, Prazoson Diphendydramine prn Lorazepam prn Evaluation of headaches Pt reporting medicine SE, wanting to change regime. Labs, Iron Profile 03/20/21 Greater than 50% of the session was spent on counseling and/or coordination of care Reason for contiued inpatient stay Substantial Risk for: harm to self, inability to function and rapid decompensation
[2021-03-19 18:00] VITALS: BP 107/71; PULSE 76; TEMP 36.8
[2021-03-19] MEDS: lamoTRIgine 25 MG TABLET 12.5 MG PO (20:10)
[2021-03-20 08:08] LABS: MANUAL DIFF FLAG NO
[2021-03-20 08:12] LABS: Basophils Percent Auto 0.7 % (0-2); Eosinophils Absolute Auto 0.1 X10*3/uL (0.0-0.4); Hematocrit 37.1 % (37-47); Hemoglobin 12.7 g/dl (12.0-16.0); Imm Gran Abs Auto 0.01 X10*3/uL (0.00-0.03); Imm Gran Pct Auto 0.2 % (0.0-0.4); Lymphocytes Absolute Auto 1.7 X10*3/uL (1.2-4.9); Lymphocytes Percent Auto 37.8 % (20-40); Mean Corpuscular HGB Conc 34.2 g/dl (31.0-35.0); Mean Corpuscular Hemoglobin 31.4 pg (27.0-33.0); Mean Corpuscular Volume 91.6 fL (80-98); Mean Platelet Volume 10.4 fL (9.4-12.3); Monocytes Absolute Auto 0.3 X10*3/uL (0.1-1.2); Monocytes Percent Auto 6.7 % (2-11); Neutrophils Absolute Auto 2.4 X10*3/uL (2.0-8.3); Neutrophils Percent Auto 52.6 % (45-73); Platelet Count 211 X10*3/uL (160-400); Red Blood Count 4.05 X10*6/uL (4.20-5.50); Red Cell Distribution Width 11.9 % (11.0-16.0); White Blood Count 4.5 X10*3/uL (4.8-10.8)
[2021-03-20 08:35] LABS: Iron 145 mcg/dL (30-160); Percent Iron Saturation 38 % (15-50); Total Iron Binding Capacity 385 mcg/dL (228-428); Unsaturated Iron Binding 240 ug/dL
[2021-03-20] MEDS: Ziprasidone 60 MG CAPSULE PO ×2 (08:42→21:10)
[2021-03-20] MEDS: Nicotine Polacrilex 2 MG GUM 4 MG BUCCAL (14:33)
--- NOTE | 2021-03-20 16:27 | HO.PSYCHPN ---
Subjective Subjective Date of Service: 03/20/21 Reason For Visit: Psychosis Review of Systems Team reports pt has been cheeking medications. Review with pt headache symptoms. Reports onset in the am, however she does not awaken with headache. Reports this has occurred for the past three months. States the pain is there when I think a lot. Reports pain lasts for a few hours. Location is front and back of her head only. Describes pain as throbbing . Describes severity 10/10 with feelings of weakness, no vision loss, nausea, photophobia and phonophobia and at times aversion to odors and scalp skin sensitivity. Denies aura and reports minimal relief with tylenol. Stressors are mitigating-pt worries that her grandfather passed of aneurysm and that meds cause headaches. Discussed that inconsistency in taking meds may also be a factor in pain intensity. Review of Systems Constitutional: Reports headache(s) Reports Normal hearing present and Reports headache(s) Reports Normal hearing present, Reports behavioral changes and Reports headache(s) Psychiatric: Reports anxiety, Reports behavioral changes, Reports auditory hallucinations, Reports irritability, Reports anhedonia, Reports mood swings, Reports paranoia and Reports suicidal ideation (denies) Mental Status Exam Mental Status Exam Patient Appearance: Disheveled Patient Orientation: Person, Place, Time and Situation Level of Consciousness: Awake and Alert Patient Behavior: Guarded, Talkative, Suspicious, Self Manipulative, Anxious, Resistive to Care, Distractible, Good Eye Contact and Impulsive Mood Description: Suspicious, Withdrawn, Constricted, Depressed and Anxious Affect Description: Suspicious, Withdrawn, Anxious and Labile Patient Cognition Impaired: Yes Ability to Follow Directions: Fair Speech Pattern: Spontaneous Speech Memory Description: Episodic Impaired Hallucinations: None Delusions: Paranoid Ideation Thought Process: Rumination Thought Content: positive for [place] and positive for Circumstantial Depressive Symptoms: Increased Anxiety, Diff. Making Decisions and Increased Irritability Judgement: Poor Diagnostics Vital Signs (24Hr): Vital Signs - 24 hr 03/19/21 18:00 Temperature 98.3 F Pulse Rate 76 Blood Pressure 107/71 Body Mass Index 24.3 Labs Results: 03/20/21 08:03 03/19/21 07:48 Labs: Laboratory Results - last 48 hr 03/19/21 03/20/21 03/20/21 07:48 08:03 08:03 WBC 4.5 L RBC 4.05 L Hgb 12.7 Hct 37.1 MCV 91.6 MCH 31.4 MCHC 34.2 RDW 11.9 Plt Count 211 MPV 10.4 Immature Gran % (Auto) 0.2 Neut % (Auto) 52.6 Lymph % (Auto) 37.8 [place] % (Auto) 6.7 Eos % (Auto) 2.0 Baso % (Auto) 0.7 Lymph # (Auto) 1.7 [place] # (Auto) 0.3 Eos # (Auto) 0.1 Baso # (Auto) 0.0 Abs Immat Gran (auto) 0.01 Absolute Neuts (auto) 2.4 Absolute Nucleated RBC 0.000 Nucleated RBC % (auto) 0.0 Sodium 137 Potassium 4.0 Chloride 101 Carbon Dioxide 29 Anion Gap 11 L BUN 8 L Creatinine 0.83 Estim Creat Clear Calc 93.3 Estimated GFR > 60 Random Glucose 95 Calcium 9.4 D Iron 145 TIBC 385 % Saturation 38 Unsat Iron Binding 240 Total Bilirubin 0.6 AST 16 ALT 25 Alkaline Phosphatase 37 L Total Protein 6.9 Albumin 4.5 Medications Medications Current Medications Generic Name Dose Route Start Last Admin Trade Name Freq PRN Reason Stop Dose Admin Acetaminophen 650 mg 02/27/21 20:08 03/17/21 05:55 Acetaminophen 325 Mg Tablet PO 650 mg Q6H PRN Administration Headache/Pain Mild Scale (1-3) Al Hydroxide/Mg Hydroxide 30 ml 02/27/21 20:08 Magnesium Hydrox/Alum Hydrox 30 Ml Oral.Susp PO Q6H PRN Heartburn/Nausea Albuterol Sulfate 2 puff 03/02/21 21:23 03/15/21 09:51 Albuterol Sulfate 90 Mcg 8 Gm Inhaler INHALE 2 puff RQ4H PRN Administration Shortness of Breath Clonazepam 0.5 mg 03/02/21 21:41 03/18/21 07:51 Clonazepam 0.5 Mg Tablet PO 0.5 mg DAILY PRN Administration SEVERE anxiety/panic Diphenhydramine HCl 50 mg 03/19/21 13:32 Diphenhydramine Hcl 25 Mg Tablet PO Q8H PRN EPS, Dystonia Lamotrigine 12.5 mg 03/19/21 21:00 03/19/21 20:10 Lamotrigine 25 Mg Tablet PO 12.5 mg BEDTIME DUSTIN Administration Lorazepam 1 mg 03/19/21 13:33 Lorazepam 1 Mg Tablet PO Q6H PRN anxiety, dystonia Magnesium Hydroxide 30 ml 02/27/21 20:08 Milk Of Magnesia 30 Ml Oral.Susp PO DAILY PRN Constipation Melatonin 6 mg 02/27/21 20:09 03/07/21 20:04 Melatonin 3 Mg Tablet PO 6 mg BEDTIME PRN Administration Insomnia Multi-Ingred Cream/Lotion/Oil/Oint 1 appl 03/03/21 19:30 Mineral Oil/Petrolatum,White 106 Gm Tube TOPICAL TID PRN dry skin Nicotine Polacrilex 4 mg 02/27/21 20:08 03/20/21 14:33 Nicotine Polacrilex 2 Mg Gum BUCCAL 4 mg Q2H PRN Administration Nicotine Cravings Patient Own Med 1 each 03/04/21 09:00 03/20/21 12:15 Compound W Strips PO Not Given DAILY DUSTIN Patient Own 1 each 03/13/21 10:30 03/20/21 14:32 Medication ( PO 1 each Norgestimat/Eth Est DAILY DUSTIN Administration 0.25/0.035 Tablet) Olanzapine 5 mg 02/28/21 10:50 03/08/21 23:38 Olanzapine 5 Mg Tablet PO 5 mg TID PRN Administration agitation Trazodone HCl 150 mg 02/27/21 20:09 03/16/21 02:55 Trazodone Hcl 50 Mg Tablet PO 150 mg BEDTIME PRN Administration Insomnia Ziprasidone 60 mg 03/19/21 21:00 03/20/21 08:42 Ziprasidone 60 Mg Capsule PO 60 mg BID DUSTIN Administration Allergies Allergies Allergy/AdvReac Type Severity Reaction Status Date / Time risperidone [From Risperdal] Allergy Mild gain weight Verified 02/24/21 01:27 aripiprazole [Abilify] Allergy Unknown gain weight Verified 02/24/21 01:27 paliperidone AdvReac dystonia Verified 02/24/21 01:27 Assessment & Plan Assessment & Plan (1) Schizoaffective disorder, bipolar type: Status: Acute Code(s): F25.0 - Schizoaffective disorder, bipolar type Assessment and Plan: Decrease Lamictal to 12.5 mg hs Decrease Geodon to 60 mg bid Discontinue Klonopin, Benztropine, Prazoson Diphendydramine prn Lorazepam prn Evaluation of headaches- will request neuro eval. Pt reporting medicine SE, wanting to change regime. Labs, Iron Profile 03/20/21 Greater than 50% of the session was spent on counseling and/or coordination of care Patient educated on: medication risk/benefits and therapeutic strategies Reason for contiued inpatient stay Substantial Risk for: harm to self, inability to function and rapid decompensation
[2021-03-20 18:00] VITALS: BP 110/68; PULSE 72; RESP 16; TEMP 36.9; O2SAT 99
[2021-03-20] MEDS: lamoTRIgine 25 MG TABLET 12.5 MG PO (21:10)
[2021-03-20] MEDS: clonazePAM 0.5 MG TABLET PO (21:10)
[2021-03-21] MEDS: Ziprasidone 60 MG CAPSULE PO ×2 (08:58→20:47)
[2021-03-21] MEDS: clonazePAM 0.5 MG TABLET PO (09:08)
--- NOTE | 2021-03-21 13:23 | HO.PSYCHPN ---
Subjective Subjective Date of Service: 03/21/21 Reason For Visit: Psychosis Subjective Notes: Conditional Voluntary Healthcare Proxy: No Guardianship: Yes Medical Problems Affecting Mental Status: No Interim History: Denies issues/questions regarding medications. Tells team no menses in one month. Denies and has had interruption in BCP compliance. Medication Compliance: Yes Side effects from medications: No Attending Groups: Intermittent Review of Systems Acute medical concerns: No Medical Review of Systems: unchanged Review of Systems Reports behavioral changes, Reports confusion and Reports memory loss Psychiatric: Reports anxiety, Reports behavioral changes, Reports confusion, Reports difficulty concentrating, Reports auditory hallucinations, Reports irritability, Reports memory loss, Reports mood swings, Reports paranoia and Reports suicidal ideation (denies) Mental Status Exam Mental Status Exam Patient Appearance: Appropriate Patient Orientation: Person, Place, Time and Situation Level of Consciousness: Alert Patient Behavior: Guarded, Talkative, Suspicious and Avoidant Mood Description: Constricted Affect Description: Constricted Patient Cognition Impaired: Yes Ability to Follow Directions: Fair Speech Pattern: Spontaneous Speech Memory Description: Remote Impaired and Episodic Impaired Hallucinations: Auditory Delusions: Paranoid Ideation and Present Perceptual Disturbances: Depersonalization and Derealization Thought Process: Distracted, Rumination and Evasive Thought Content: positive for Obsessional Thoughts, positive for Circumstantial, positive for Perseveration, positive for Preoccupation and positive for Hypochondriasis Depressive Symptoms: Increased Anxiety, Diff. Making Decisions, Increased Irritability, Isolating-Friends/Family, Unhappiness, Thoughts of /Suicide (denies), Low Self Esteem and Loss of Energy Judgement: Poor Diagnostics Vital Signs (24Hr): Vital Signs - 24 hr 03/20/21 18:00 Temperature 98.4 F Pulse Rate 72 Respiratory Rate 16 Blood Pressure 110/68 Pulse Oximetry 99 Body Mass Index 24.3 Labs Results: 03/20/21 08:03 03/19/21 07:48 Labs: Laboratory Results - last 48 hr 03/20/21 03/20/21 08:03 08:03 WBC 4.5 L RBC 4.05 L Hgb 12.7 Hct 37.1 MCV 91.6 MCH 31.4 MCHC 34.2 RDW 11.9 Plt Count 211 MPV 10.4 Immature Gran % (Auto) 0.2 Neut % (Auto) 52.6 Lymph % (Auto) 37.8 [place] % (Auto) 6.7 Eos % (Auto) 2.0 Baso % (Auto) 0.7 Lymph # (Auto) 1.7 [place] # (Auto) 0.3 Eos # (Auto) 0.1 Baso # (Auto) 0.0 Abs Immat Gran (auto) 0.01 Absolute Neuts (auto) 2.4 Absolute Nucleated RBC 0.000 Nucleated RBC % (auto) 0.0 Iron 145 TIBC 385 % Saturation 38 Unsat Iron Binding 240 Medications Medications Current Medications Generic Name Dose Route Start Last Admin Trade Name Freq PRN Reason Stop Dose Admin Acetaminophen 650 mg 02/27/21 20:08 03/17/21 05:55 Acetaminophen 325 Mg Tablet PO 650 mg Q6H PRN Administration Headache/Pain Mild Scale (1-3) Al Hydroxide/Mg Hydroxide 30 ml 02/27/21 20:08 Magnesium Hydrox/Alum Hydrox 30 Ml Oral.Susp PO Q6H PRN Heartburn/Nausea Albuterol Sulfate 2 puff 03/02/21 21:23 03/15/21 09:51 Albuterol Sulfate 90 Mcg 8 Gm Inhaler INHALE 2 puff RQ4H PRN Administration Shortness of Breath Clonazepam 0.5 mg 03/02/21 21:41 03/21/21 09:08 Clonazepam 0.5 Mg Tablet PO 0.5 mg DAILY PRN Administration SEVERE anxiety/panic Diphenhydramine HCl 50 mg 03/19/21 13:32 Diphenhydramine Hcl 25 Mg Tablet PO Q8H PRN EPS, Dystonia Lamotrigine 12.5 mg 03/19/21 21:00 03/20/21 21:10 Lamotrigine 25 Mg Tablet PO 12.5 mg BEDTIME DUSTIN Administration Lorazepam 1 mg 03/19/21 13:33 Lorazepam 1 Mg Tablet PO Q6H PRN anxiety, dystonia Magnesium Hydroxide 30 ml 02/27/21 20:08 Milk Of Magnesia 30 Ml Oral.Susp PO DAILY PRN Constipation Melatonin 6 mg 02/27/21 20:09 03/07/21 20:04 Melatonin 3 Mg Tablet PO 6 mg BEDTIME PRN Administration Insomnia Multi-Ingred Cream/Lotion/Oil/Oint 1 appl 03/03/21 19:30 Mineral Oil/Petrolatum,White 106 Gm Tube TOPICAL TID PRN dry skin Nicotine Polacrilex 4 mg 02/27/21 20:08 03/20/21 14:33 Nicotine Polacrilex 2 Mg Gum BUCCAL 4 mg Q2H PRN Administration Nicotine Cravings Patient Own Med 1 each 03/04/21 09:00 03/21/21 09:03 Compound W Strips PO Not Given DAILY DUSTIN Patient Own 1 each 03/13/21 10:30 03/21/21 09:03 Medication ( PO 1 each Norgestimat/Eth Est DAILY DUSTIN Administration 0.25/0.035 Tablet) Olanzapine 5 mg 02/28/21 10:50 03/08/21 23:38 Olanzapine 5 Mg Tablet PO 5 mg TID PRN Administration agitation Trazodone HCl 150 mg 02/27/21 20:09 03/16/21 02:55 Trazodone Hcl 50 Mg Tablet PO 150 mg BEDTIME PRN Administration Insomnia Ziprasidone 60 mg 03/19/21 21:00 03/21/21 08:58 Ziprasidone 60 Mg Capsule PO 60 mg BID DUSTIN Administration Allergies Allergies Allergy/AdvReac Type Severity Reaction Status Date / Time risperidone [From Risperdal] Allergy Mild gain weight Verified 02/24/21 01:27 aripiprazole [Abilify] Allergy Unknown gain weight Verified 02/24/21 01:27 paliperidone AdvReac dystonia Verified 02/24/21 01:27 Assessment & Plan Assessment & Plan (1) Schizoaffective disorder, bipolar type: Status: Acute Code(s): F25.0 - Schizoaffective disorder, bipolar type Assessment and Plan: Continue Lamictal at 12.5 mg hs Continue Geodon at 60 mg bid Discontinue Klonopin, Benztropine, Prazoson Diphendydramine prn Lorazepam prn Evaluation of headaches- will request neuro eval. Mouth checks-pt reports she has not been taking meds Pt reporting medicine SE, wanting to change regime. Monitor for initiation of menses. Greater than 50% of the session was spent on counseling and/or coordination of care Reason for contiued inpatient stay Substantial Risk for: harm to self, inability to function and rapid decompensation
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
[2021-03-21 17:45] VITALS: BP 108/64; PULSE 84; TEMP 36.4
[2021-03-21] MEDS: lamoTRIgine 25 MG TABLET 12.5 MG PO (20:47)
[2021-03-22 06:00] VITALS: BP 101/66; PULSE 76; RESP 16; TEMP 36.2; O2SAT 99
[2021-03-22] MEDS: clonazePAM 0.5 MG TABLET PO (09:14)
[2021-03-22] MEDS: Ziprasidone 60 MG CAPSULE PO ×2 (09:16→20:39)
[2021-03-22 14:19] LABS: HCG Quantitative < 2 mIU/mL
[2021-03-22] MEDS: Nicotine Polacrilex 2 MG GUM 4 MG BUCCAL (16:39)
--- NOTE | 2021-03-22 17:05 | HO.PSYCHPN ---
Subjective Subjective Date of Service: 03/23/21 Reason For Visit: Psychosis Subjective Notes: Conditional Voluntary Healthcare Proxy: No Guardianship: Yes Medical Problems Affecting Mental Status: No Interim History: Pt reports no menses in ~30 days, HCG negative. Iron Profile results are WNL also. Pt asking about going home-unable to discuss symptoms, care plan, focused on decreasing medications, stopping medications and not needing medications. Medication Compliance: Yes Side effects from medications: No Attending Groups: No Review of Systems Acute medical concerns: No Medical Review of Systems: unchanged Review of Systems Psychiatric: Reports anxiety, Reports difficulty concentrating and Reports auditory hallucinations Mental Status Exam Mental Status Exam Patient Appearance: Disheveled Patient Orientation: Person, Place, Time and Situation Level of Consciousness: Alert Patient Behavior: Guarded, Passive, Suspicious, Anxious, Resistive to Care, Avoidant, Distractible and Isolative Mood Description: Constricted Affect Description: Constricted Patient Cognition Impaired: Yes Ability to Follow Directions: Fair Speech Pattern: Spontaneous Speech and Soft-Spoken Memory Description: Episodic Impaired Hallucinations: Auditory Delusions: Present Thought Process: Goal Oriented Thought Content: positive for Goal Oriented, positive for Perseveration and positive for Suicidal Ideation (denies) Depressive Symptoms: Increased Anxiety, Diff. Making Decisions, Increased Irritability, Unhappiness, Thoughts of /Suicide (denies), Low Self Esteem and Difficulty Concentrating Judgement: Poor Diagnostics Vital Signs (24Hr): Vital Signs - 24 hr 03/21/21 17:45 03/22/21 06:00 Temperature 97.5 F 97.1 F Pulse Rate 84 76 Respiratory Rate 16 Blood Pressure 108/64 101/66 Pulse Oximetry 99 Body Mass Index 24.3 Labs Results: 03/20/21 08:03 03/19/21 07:48 Labs: Laboratory Results - last 48 hr 03/22/21 13:45 Beta HCG, Quant < 2 Medications Medications Current Medications Generic Name Dose Route Start Last Admin Trade Name Freq PRN Reason Stop Dose Admin Acetaminophen 650 mg 02/27/21 20:08 03/17/21 05:55 Acetaminophen 325 Mg Tablet PO 650 mg Q6H PRN Administration Headache/Pain Mild Scale (1-3) Al Hydroxide/Mg Hydroxide 30 ml 02/27/21 20:08 Magnesium Hydrox/Alum Hydrox 30 Ml Oral.Susp PO Q6H PRN Heartburn/Nausea Albuterol Sulfate 2 puff 03/02/21 21:23 03/15/21 09:51 Albuterol Sulfate 90 Mcg 8 Gm Inhaler INHALE 2 puff RQ4H PRN Administration Shortness of Breath Clonazepam 0.5 mg 03/02/21 21:41 03/22/21 09:14 Clonazepam 0.5 Mg Tablet PO 0.5 mg DAILY PRN Administration SEVERE anxiety/panic Diphenhydramine HCl 50 mg 03/19/21 13:32 Diphenhydramine Hcl 25 Mg Tablet PO Q8H PRN EPS, Dystonia Lamotrigine 12.5 mg 03/19/21 21:00 03/21/21 20:47 Lamotrigine 25 Mg Tablet PO 12.5 mg BEDTIME DUSTIN Administration Lorazepam 1 mg 03/19/21 13:33 Lorazepam 1 Mg Tablet PO Q6H PRN anxiety, dystonia Magnesium Hydroxide 30 ml 02/27/21 20:08 Milk Of Magnesia 30 Ml Oral.Susp PO DAILY PRN Constipation Melatonin 6 mg 02/27/21 20:09 03/07/21 20:04 Melatonin 3 Mg Tablet PO 6 mg BEDTIME PRN Administration Insomnia Multi-Ingred Cream/Lotion/Oil/Oint 1 appl 03/03/21 19:30 Mineral Oil/Petrolatum,White 106 Gm Tube TOPICAL TID PRN dry skin Nicotine Polacrilex 4 mg 02/27/21 20:08 03/22/21 16:39 Nicotine Polacrilex 2 Mg Gum BUCCAL 4 mg Q2H PRN Administration Nicotine Cravings Patient Own Med 1 each 03/04/21 09:00 03/22/21 09:16 Compound W Strips PO Not Given DAILY DUSTIN Patient Own 1 each 03/13/21 10:30 03/22/21 09:16 Medication ( PO 1 each Norgestimat/Eth Est DAILY DUSTIN Administration 0.25/0.035 Tablet) Olanzapine 5 mg 02/28/21 10:50 03/08/21 23:38 Olanzapine 5 Mg Tablet PO 5 mg TID PRN Administration agitation Trazodone HCl 150 mg 02/27/21 20:09 03/16/21 02:55 Trazodone Hcl 50 Mg Tablet PO 150 mg BEDTIME PRN Administration Insomnia Ziprasidone 60 mg 03/19/21 21:00 03/22/21 09:16 Ziprasidone 60 Mg Capsule PO 60 mg BID DUSTIN Administration Allergies Allergies Allergy/AdvReac Type Severity Reaction Status Date / Time risperidone [From Risperdal] Allergy Mild gain weight Verified 02/24/21 01:27 aripiprazole [Abilify] Allergy Unknown gain weight Verified 02/24/21 01:27 paliperidone AdvReac dystonia Verified 02/24/21 01:27 Assessment & Plan Assessment & Plan (1) Schizoaffective disorder, bipolar type: Status: Acute Code(s): F25.0 - Schizoaffective disorder, bipolar type Assessment and Plan: Continue Lamictal at 12.5 mg hs Continue Geodon at 60 mg bid Discontinue Klonopin, Benztropine, Prazoson Diphendydramine prn Lorazepam prn Evaluation of headaches- neuro eval by Dr. Prem joyner. Mouth checks-pt reports she has not been taking meds Monitor for initiation of menses. HCG negative Iron Profile WNL Education, alliance building. Greater than 50% of the session was spent on counseling and/or coordination of care Patient educated on: medication risk/benefits and therapeutic strategies Informed Consent: further education needed Reason for contiued inpatient stay Substantial Risk for: harm to self, inability to function and rapid decompensation
[2021-03-22 18:00] VITALS: BP 115/73; PULSE 98; TEMP 36.4
[2021-03-22] MEDS: LORazepam 1 MG TABLET PO (19:03)
[2021-03-22] MEDS: lamoTRIgine 25 MG TABLET 12.5 MG PO (20:39)
[2021-03-22] MEDS: Melatonin 3 MG TABLET 6 MG PO (20:43)
[2021-03-22] MEDS: traZODone HCL 50 MG TABLET 150 MG PO (20:43)
[2021-03-23] MEDS: Ziprasidone 60 MG CAPSULE PO ×2 (09:20→20:32)
[2021-03-23] MEDS: clonazePAM 0.5 MG TABLET PO (09:22)
--- NOTE | 2021-03-23 15:54 | HO.PSYCHPN ---
Subjective Subjective Date of Service: 03/23/21 Reason For Visit: Psychosis Interim History: Individual had no new concerns Medication Compliance: Yes Side effects from medications: No Attending Groups: No Review of Systems Acute medical concerns: No Medical Review of Systems: unchanged Review of Systems Review of Systems Yes all other systems are reviewed and are negative (denies today) Constitutional: Reports headache(s) Reports Normal hearing present and Reports headache(s) Reports Normal hearing present, Reports behavioral changes, Reports confusion, Reports headache(s) and Reports memory loss Psychiatric: Reports abnormal sleep pattern, Reports anxiety, Reports behavioral changes, Reports confusion, Reports depression, Reports difficulty concentrating, Reports auditory hallucinations, Reports hopelessness, Reports irritability, Reports anhedonia, Reports memory loss, Reports mood swings, Reports panic attacks, Reports paranoia, Reports hallucinations and Reports suicidal ideation (denies) Mental Status Exam Mental Status Exam Narrative: calm, cooperative. appearing guarded or uncomfortable, sitting in bed. PMR. speech soft and flat, nml in rate and decr in amount. thoughts linear and logical in brief interaction. affect blunted. mood good. no SI/HI/AVH expressed. Patient Appearance: Disheveled Patient Orientation: Person, Place, Time and Situation Level of Consciousness: Alert Patient Behavior: Guarded, Passive, Suspicious, Anxious, Resistive to Care, Avoidant, Distractible and Isolative Mood Description: Constricted Affect Description: Constricted Patient Cognition Impaired: Yes Ability to Follow Directions: Fair Speech Pattern: Spontaneous Speech and Soft-Spoken Memory Description: Episodic Impaired Diagnostics Vital Signs (24Hr): Vital Signs - 24 hr 03/22/21 18:00 Temperature 97.6 F Pulse Rate 98 Blood Pressure 115/73 Body Mass Index 24.3 Labs Results: 03/20/21 08:03 03/19/21 07:48 Labs: Laboratory Results - last 48 hr 03/22/21 13:45 Beta HCG, Quant < 2 Medications Medications Current Medications Generic Name Dose Route Start Last Admin Trade Name Freq PRN Reason Stop Dose Admin Acetaminophen 650 mg 02/27/21 20:08 03/17/21 05:55 Acetaminophen 325 Mg Tablet PO 650 mg Q6H PRN Administration Headache/Pain Mild Scale (1-3) Al Hydroxide/Mg Hydroxide 30 ml 02/27/21 20:08 Magnesium Hydrox/Alum Hydrox 30 Ml Oral.Susp PO Q6H PRN Heartburn/Nausea Albuterol Sulfate 2 puff 03/02/21 21:23 03/15/21 09:51 Albuterol Sulfate 90 Mcg 8 Gm Inhaler INHALE 2 puff RQ4H PRN Administration Shortness of Breath Clonazepam 0.5 mg 03/02/21 21:41 03/23/21 09:22 Clonazepam 0.5 Mg Tablet PO 0.5 mg DAILY PRN Administration SEVERE anxiety/panic Diphenhydramine HCl 50 mg 03/19/21 13:32 Diphenhydramine Hcl 25 Mg Tablet PO Q8H PRN EPS, Dystonia Lamotrigine 12.5 mg 03/19/21 21:00 03/22/21 20:39 Lamotrigine 25 Mg Tablet PO 12.5 mg BEDTIME DUSTIN Administration Lorazepam 1 mg 03/19/21 13:33 03/22/21 19:03 Lorazepam 1 Mg Tablet PO 1 mg Q6H PRN Administration anxiety, dystonia Magnesium Hydroxide 30 ml 02/27/21 20:08 Milk Of Magnesia 30 Ml Oral.Susp PO DAILY PRN Constipation Melatonin 6 mg 02/27/21 20:09 03/22/21 20:43 Melatonin 3 Mg Tablet PO 6 mg BEDTIME PRN Administration Insomnia Multi-Ingred Cream/Lotion/Oil/Oint 1 appl 03/03/21 19:30 Mineral Oil/Petrolatum,White 106 Gm Tube TOPICAL TID PRN dry skin Nicotine Polacrilex 4 mg 02/27/21 20:08 03/22/21 16:39 Nicotine Polacrilex 2 Mg Gum BUCCAL 4 mg Q2H PRN Administration Nicotine Cravings Patient Own Med 1 each 03/04/21 09:00 03/23/21 14:04 Compound W Strips PO Not Given DAILY DUSTIN Patient Own 1 each 03/13/21 10:30 03/23/21 14:37 Medication ( PO 1 each Norgestimat/Eth Est DAILY DUSTIN Administration 0.25/0.035 Tablet) Olanzapine 5 mg 02/28/21 10:50 03/08/21 23:38 Olanzapine 5 Mg Tablet PO 5 mg TID PRN Administration agitation Trazodone HCl 150 mg 02/27/21 20:09 03/22/21 20:43 Trazodone Hcl 50 Mg Tablet PO 150 mg BEDTIME PRN Administration Insomnia Ziprasidone 60 mg 03/19/21 21:00 03/23/21 09:20 Ziprasidone 60 Mg Capsule PO 60 mg BID DUSTIN Administration Allergies Allergies Allergy/AdvReac Type Severity Reaction Status Date / Time risperidone [From Risperdal] Allergy Mild gain weight Verified 02/24/21 01:27 aripiprazole [Abilify] Allergy Unknown gain weight Verified 02/24/21 01:27 paliperidone AdvReac dystonia Verified 02/24/21 01:27 Assessment & Plan Assessment & Plan (1) Schizoaffective disorder, bipolar type: Status: Acute Code(s): F25.0 - Schizoaffective disorder, bipolar type Assessment and Plan: Continue Lamictal at 12.5 mg hs Continue Geodon at 60 mg bid Discontinue Klonopin, Benztropine, Prazoson Diphendydramine prn Lorazepam prn Evaluation of headaches- neuro eval by Dr. Amaro appreciated. Mouth checks-pt reports she has not been taking meds Monitor for initiation of menses. HCG negative Iron Profile WNL Education, alliance building. No change to the above plan Greater than 50% of the session was spent on counseling and/or coordination of care Patient educated on: diagnosis and medication risk/benefits Informed Consent: further education needed Reason for contiued inpatient stay Substantial Risk for: inability to function and rapid decompensation
[2021-03-23 18:00] VITALS: BP 106/66; PULSE 75; TEMP 36.2
[2021-03-23] MEDS: lamoTRIgine 25 MG TABLET 12.5 MG PO (20:31)
[2021-03-24] MEDS: Ziprasidone 60 MG CAPSULE PO ×2 (09:17→20:46)
[2021-03-24] MEDS: Nicotine Polacrilex 2 MG GUM 4 MG BUCCAL (12:53)
[2021-03-24] MEDS: clonazePAM 0.5 MG TABLET PO (13:30)
[2021-03-24 17:06] VITALS: BP 118/79; PULSE 77; RESP 16; TEMP 36.1; O2SAT 100
--- NOTE | 2021-03-24 17:16 | HO.PSYCHPN ---
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 doing art work Medication Compliance: Yes Side effects from medications: No Attending Groups: No Review of Systems Review of Systems Yes all other systems are reviewed and are negative (denies today) Constitutional: Reports headache(s) Reports Normal hearing present and Reports headache(s) Reports Normal hearing present, Reports behavioral changes, Reports confusion, Reports headache(s) and Reports memory loss Psychiatric: Reports abnormal sleep pattern, Reports anxiety, Reports behavioral changes, Reports confusion, Reports depression, Reports difficulty concentrating, Reports auditory hallucinations, Reports hopelessness, Reports irritability, Reports anhedonia, Reports memory loss, Reports mood swings, Reports panic attacks, Reports paranoia, Reports hallucinations and Reports suicidal ideation (denies) Mental Status Exam Mental Status Exam Narrative: calm, cooperative. appearing guarded or uncomfortable, sitting in bed. PMR. speech soft and flat, nml in rate and decr in amount. thoughts linear and logical in brief interaction. affect blunted. mood good. no SI/HI/AVH expressed. Patient Appearance: Disheveled Patient Orientation: Person, Place, Time and Situation Level of Consciousness: Alert Patient Behavior: Guarded, Passive, Suspicious, Anxious, Resistive to Care, Avoidant, Distractible and Isolative Mood Description: Constricted Affect Description: Constricted Patient Cognition Impaired: Yes Ability to Follow Directions: Fair Speech Pattern: Spontaneous Speech and Soft-Spoken Memory Description: Episodic Impaired Diagnostics Vital Signs (24Hr): Vital Signs - 24 hr 03/23/21 18:00 03/24/21 17:06 Temperature 97.2 F 97.0 F Pulse Rate 75 77 Respiratory Rate 16 Blood Pressure 106/66 118/79 Pulse Oximetry 100 Body Mass Index 24.3 Labs Results: 03/20/21 08:03 03/19/21 07:48 Medications Medications Current Medications Generic Name Dose Route Start Last Admin Trade Name Freq PRN Reason Stop Dose Admin Acetaminophen 650 mg 02/27/21 20:08 03/17/21 05:55 Acetaminophen 325 Mg Tablet PO 650 mg Q6H PRN Administration Headache/Pain Mild Scale (1-3) Al Hydroxide/Mg Hydroxide 30 ml 02/27/21 20:08 Magnesium Hydrox/Alum Hydrox 30 Ml Oral.Susp PO Q6H PRN Heartburn/Nausea Albuterol Sulfate 2 puff 03/02/21 21:23 03/15/21 09:51 Albuterol Sulfate 90 Mcg 8 Gm Inhaler INHALE 2 puff RQ4H PRN Administration Shortness of Breath Clonazepam 0.5 mg 03/02/21 21:41 03/24/21 13:30 Clonazepam 0.5 Mg Tablet PO 0.5 mg DAILY PRN Administration SEVERE anxiety/panic Diphenhydramine HCl 50 mg 03/19/21 13:32 Diphenhydramine Hcl 25 Mg Tablet PO Q8H PRN EPS, Dystonia Lamotrigine 12.5 mg 03/19/21 21:00 03/23/21 20:31 Lamotrigine 25 Mg Tablet PO 12.5 mg BEDTIME DUSTIN Administration Lorazepam 1 mg 03/19/21 13:33 03/22/21 19:03 Lorazepam 1 Mg Tablet PO 1 mg Q6H PRN Administration anxiety, dystonia Magnesium Hydroxide 30 ml 02/27/21 20:08 Milk Of Magnesia 30 Ml Oral.Susp PO DAILY PRN Constipation Melatonin 6 mg 02/27/21 20:09 03/22/21 20:43 Melatonin 3 Mg Tablet PO 6 mg BEDTIME PRN Administration Insomnia Multi-Ingred Cream/Lotion/Oil/Oint 1 appl 03/03/21 19:30 Mineral Oil/Petrolatum,White 106 Gm Tube TOPICAL TID PRN dry skin Nicotine Polacrilex 4 mg 02/27/21 20:08 03/24/21 12:53 Nicotine Polacrilex 2 Mg Gum BUCCAL 4 mg Q2H PRN Administration Nicotine Cravings Patient Own Med 1 each 03/04/21 09:00 03/24/21 09:22 Compound W Strips PO Not Given DAILY DUSTIN Patient Own 1 each 03/13/21 10:30 03/24/21 09:17 Medication ( PO 1 each Norgestimat/Eth Est DAILY DUSTIN Administration 0.25/0.035 Tablet) Olanzapine 5 mg 02/28/21 10:50 03/08/21 23:38 Olanzapine 5 Mg Tablet PO 5 mg TID PRN Administration agitation Trazodone HCl 150 mg 02/27/21 20:09 03/22/21 20:43 Trazodone Hcl 50 Mg Tablet PO 150 mg BEDTIME PRN Administration Insomnia Ziprasidone 60 mg 03/19/21 21:00 03/24/21 09:17 Ziprasidone 60 Mg Capsule PO 60 mg BID DUSTIN Administration Allergies Allergies Allergy/AdvReac Type Severity Reaction Status Date / Time risperidone [From Risperdal] Allergy Mild gain weight Verified 02/24/21 01:27 aripiprazole [Abilify] Allergy Unknown gain weight Verified 02/24/21 01:27 paliperidone AdvReac dystonia Verified 02/24/21 01:27 Assessment & Plan Assessment & Plan (1) Schizoaffective disorder, bipolar type: Status: Acute Code(s): F25.0 - Schizoaffective disorder, bipolar type Assessment and Plan: Continue Lamictal at 12.5 mg hs Continue Geodon at 60 mg bid Discontinue Klonopin, Benztropine, Prazoson Diphendydramine prn Lorazepam prn Evaluation of headaches- neuro eval by Dr. Amaro appreciated. Mouth checks-pt reports she has not been taking meds Monitor for initiation of menses. HCG negative Iron Profile WNL Education, alliance building. No change to the above plan Greater than 50% of the session was spent on counseling and/or coordination of care Patient educated on: diagnosis and medication risk/benefits Informed Consent: further education needed Reason for contiued inpatient stay Substantial Risk for: rapid decompensation
[2021-03-24] MEDS: lamoTRIgine 25 MG TABLET 12.5 MG PO (20:46)
[2021-03-24] MEDS: traZODone HCL 50 MG TABLET 150 MG PO (22:59)
[2021-03-24] MEDS: Melatonin 3 MG TABLET 6 MG PO (23:00)
[2021-03-25 05:49] VITALS: BP 98/52; PULSE 70; RESP 18; TEMP 35.8; O2SAT 99
[2021-03-25 06:55] VITALS: BP 98/58; PULSE 70; RESP 18; TEMP 35.8; O2SAT 99
[2021-03-25] MEDS: Ziprasidone 60 MG CAPSULE PO ×2 (08:32→21:53)
[2021-03-25 16:40] VITALS: BP 100/65; PULSE 83; TEMP 36.8
--- NOTE | 2021-03-25 20:05 | P.PNPSI_ITS ---
Subjective Subjective Date of Service: 03/25/21 Reason For Visit: Psychosis Subjective Notes: Conditional Voluntary Healthcare Proxy: No Guardianship: Yes Medical Problems Affecting Mental Status: No Interim History: Declined to meet today as pt had a difficult session with mother with yelling, agitation, accusatory remarks, paranoia and delusional content. I will not change the medicine, I don't want to take it at all. Isolative in her room after this. Approached later in the day. Maybe tomorrow. I am sorry I feel I cannot get angry without people thinking I am psychotic. Will meet with pt/mother/ Isabella Flores ANAI 03/26 11a.m. Current regime ineffective. Medication Compliance: Yes Side effects from medications: No Attending Groups: No Review of Systems Acute medical concerns: No Medical Review of Systems: unchanged Review of Systems Reports behavioral changes Psychiatric: Reports anxiety, Reports behavioral changes, Reports depression, Reports difficulty concentrating, Reports auditory hallucinations, Reports hopelessness, Reports irritability, Reports mood swings and Reports paranoia Mental Status Exam Mental Status Exam Patient Appearance: Fatigued Patient Orientation: Person, Place, Time and Situation Level of Consciousness: Alert Patient Behavior: Guarded, Suspicious, Resistive to Care, Avoidant, Distr actible, Isolative and Poor Eye Contact Mood Description: Suspicious, Withdrawn, Fearful, Hostile, Anxious, Labile, Angry and Sad Affect Description: Labile Patient Cognition Impaired: Yes Ability to Follow Directions: Fair Speech Pattern: Spontaneous Speech Memory Description: Remote Impaired and Episodic Impaired Hallucinations: Auditory Delusions: Paranoid Ideation and Present Thought Process: Illogical, Distracted and Rumination Thought Content: positive for Circumstantial, positive for Perseveration, positive for Tangential and positive for Suicidal Ideation (denies) Depressive Symptoms: Increased Anxiety, Increased Irritability, Crying Spells, Loss of Int. in Activity, Hopelessness, Unexplained Headaches, Increased Fatig ue, Low Self Esteem, Loss of Energy and Difficulty Concentrating Judgement: Poor Diagnostics Vital Signs (24Hr): Vital Signs - 24 hr 03/25/21 05:49 03/25/21 06:55 Temperature 96.4 F L 96.4 F L Pulse Rate 70 70 Respiratory Rate 18 18 Blood Pressure 98/52 L 98/58 L Pulse Oximetry 99 99 Body Mass Index 24.3 Labs Results: 03/20/21 08:03 03/19/21 07:48 Medications Medications Current Medications Generic Name Dose Route Start Last Admin Trade Name Monsterq PRN Reason Stop Dose Admin Acetaminophen 650 mg 02/27/21 20:08 03/17/21 05:55 Acetaminophen 325 Mg Tablet PO 650 mg Q6H PRN Administration Headache/Pain Mild Scale (1-3) Al Hydroxide/Mg Hydroxide 30 ml 02/27/21 20:08 Magnesium Hydrox/Alum Hydrox 30 Ml Oral.Susp PO Q6H PRN Heartburn/Nausea Albuterol Sulfate 2 puff 03/02/21 21:23 03/15/21 09:51 Albuterol Sulfate 90 Mcg 8 Gm Inhaler INHALE 2 puff RQ4H PRN Administration Shortness of Breath Clonazepam 0.5 mg 03/02/21 21:41 03/24/21 13:30 Clonazepam 0.5 Mg Tablet PO 0.5 mg DAILY PRN Administration SEVERE anxiety/panic Diphenhydramine HCl 50 mg 03/19/21 13:32 Diphenhydramine Hcl 25 Mg Tablet PO Q8H PRN EPS, Dystonia Lamotrigine 12.5 mg 03/19/21 21:00 03/24/21 20:46 Lamotrigine 25 Mg Tablet PO 12.5 mg BEDTIME DUSTIN Administration Lorazepam 1 mg 03/19/21 13:33 03/22/21 19:03 Lorazepam 1 Mg Tablet PO 1 mg Q6H PRN Administration anxiety, dystonia Magnesium Hydroxide 30 ml 02/27/21 20:08 Milk Of Magnesia 30 Ml Oral.Susp PO DAILY PRN Constipation Melatonin 6 mg 02/27/21 20:09 03/24/21 23:00 Melatonin 3 Mg Tablet PO 6 mg BEDTIME PRN Administration Insomnia Multi-Ingred Cream/Lotion/Oil/Oint 1 appl 03/03/21 19:30 Mineral Oil/Petrolatum,White 106 Gm Tube TOPICAL TID PRN dry skin Nicotine Polacrilex 4 mg 02/27/21 20:08 03/24/21 12:53 Nicotine Polacrilex 2 Mg Gum BUCCAL 4 mg Q2H PRN Administration Nicotine Cravings Patient Own Med 1 each 03/04/21 09:00 03/25/21 09:03 Compound W Strips PO Not Given DAILY DUSTIN Patient Own 1 each 03/13/21 10:30 03/25/21 09:04 Medication ( PO 1 each Norgestimat/Eth Est DAILY DUSTIN Administration 0.25/0.035 Tablet) Olanzapine 5 mg 02/28/21 10:50 03/08/21 23:38 Olanzapine 5 Mg Tablet PO 5 mg TID PRN Administration agitation Trazodone HCl 150 mg 02/27/21 20:09 03/24/21 22:59 Trazodone Hcl 50 Mg Tablet PO 150 mg BEDTIME PRN Administration Insomnia Ziprasidone 60 mg 03/19/21 21:00 03/25/21 08:32 Ziprasidone 60 Mg Capsule PO 60 mg BID DUSTIN Administration Allergies Allergies Allergy/AdvReac Type Severity Reaction Status Date / Time risperidone [From Risperdal] Allergy Mild gain weight Verified 02/24/21 01:27 aripiprazole [Abilify] Allergy Unknown gain weight Verified 02/24/21 01:27 paliperidone AdvReac dystonia Verified 02/24/21 01:27 Assessment & Plan Assessment & Plan (1) Schizoaffective disorder, bipolar type: Status: Acute Code(s): F25.0 - Schizoaffective disorder, bipolar type Assessment and Plan: Continue Lamictal at 12.5 mg hs Continue Geodon at 60 mg bid Discontinue Klonopin, Benztropine, Prazosin Diphendydramine prn Lorazepam prn Evaluation of headaches- neuro eval by Dr. Prem joyner. Mouth checks-pt reports she has not been taking meds Monitor for initiation of menses. HCG negative Iron Profile WNL Education, alliance building. Meeting with pt and mother 03/26/21 11am Greater than 50% of the session was spent on counseling and/or coordination of care Patient educated on: therapeutic strategies Informed Consent: does not understand Reason for contiued inpatient stay Substantial Risk for: rapid decompensation
[2021-03-25] MEDS: lamoTRIgine 25 MG TABLET 12.5 MG PO (21:53)
[2021-03-25] MEDS: clonazePAM 0.5 MG TABLET PO (21:56)
[2021-03-26] MEDS: Ziprasidone 60 MG CAPSULE PO (09:57)
[2021-03-26 10:33] VITALS: BP 100/63; PULSE 93; RESP 16; TEMP 36.1; O2SAT 99
[2021-03-26] MEDS: clonazePAM 0.5 MG TABLET PO (13:13)
[2021-03-26 16:01] VITALS: BP 102/51; PULSE 100; TEMP 36.7
[2021-03-26] MEDS: lamoTRIgine 25 MG TABLET PO (21:03)
[2021-03-26] MEDS: OLANZapine ODT 10 MG TAB.RAPDIS TRANSLINGU (21:03)
[2021-03-26] MEDS: traZODone HCL 50 MG TABLET 150 MG PO (21:10)
[2021-03-26] MEDS: Nicotine Polacrilex 2 MG GUM 4 MG BUCCAL (21:10)
--- NOTE | 2021-03-26 21:50 | HO.PSYCHPN ---
Subjective Subjective Date of Service: 03/26/21 Reason For Visit: Psychosis Subjective Notes: Conditional Voluntary Healthcare Proxy: No Guardianship: Yes Medical Problems Affecting Mental Status: No Interim History: Meeting with pt parents and Isabella OSPINA. Parents report lability and psychotic sx over the weekend. Discussed meeting last week giving pt more input into treatment which has not been effective at this point. Discussed with pt working diagnosis, plan approved by mother (guardian) to discontinue Geodon, initiate Zydis 10 mg hs and continue to titrate Lamictal. Questions addressed, focus with pt is on managing sx so she may return home and to her life and goals. All will attempt to engage her in her interests and focus on her future. Pt agrees with this plan at this time. Medication Compliance: Yes Side effects from medications: No Attending Groups: Intermittent Review of Systems Acute medical concerns: No Medical Review of Systems: unchanged Review of Systems Reports behavioral changes Psychiatric: Reports anxiety, Reports behavioral changes, Reports difficulty concentrating, Reports auditory hallucinations, Reports hopelessness, Reports irritability, Reports mood swings and Reports paranoia Mental Status Exam Mental Status Exam Patient Appearance: Appropriate Patient Orientation: Person, Place, Time and Situation Level of Consciousness: Alert Patient Behavior: Talkative, Cooperative, Anxious, Fearful, Distractible and Good Eye Contact Mood Description: Labile and Sad Affect Description: Labile Patient Cognition Impaired: Yes Ability to Follow Directions: Fair Speech Pattern: Spontaneous Speech Memory Description: Episodic Impaired Hallucinations: None (denies) Delusions: Paranoid Ideation Thought Process: Rumination Thought Content: positive for Circumstantial, positive for Perseveration, positive for Preoccupation and positive for Suicidal Ideation (denies) Depressive Symptoms: Increased Anxiety, Diff. Making Decisions, Increased Irritability, Loss of Int. in Activity, Unhappiness and Low Self Esteem Judgement: Poor Diagnostics Vital Signs (24Hr): Vital Signs - 24 hr 03/26/21 10:33 03/26/21 16:01 Temperature 97.0 F 98.1 F Pulse Rate 93 100 Respiratory Rate 16 Blood Pressure 100/63 102/51 L Pulse Oximetry 99 Body Mass Index 24.3 Labs Results: 03/20/21 08:03 03/19/21 07:48 Medications Medications Current Medications Generic Name Dose Route Start Last Admin Trade Name Freq PRN Reason Stop Dose Admin Acetaminophen 650 mg 02/27/21 20:08 03/17/21 05:55 Acetaminophen 325 Mg Tablet PO 650 mg Q6H PRN Administration Headache/Pain Mild Scale (1-3) Al Hydroxide/Mg Hydroxide 30 ml 02/27/21 20:08 Magnesium Hydrox/Alum Hydrox 30 Ml Oral.Susp PO Q6H PRN Heartburn/Nausea Albuterol Sulfate 2 puff 03/02/21 21:23 03/15/21 09:51 Albuterol Sulfate 90 Mcg 8 Gm Inhaler INHALE 2 puff RQ4H PRN Administration Shortness of Breath Clonazepam 0.5 mg 03/02/21 21:41 03/26/21 13:13 Clonazepam 0.5 Mg Tablet PO 0.5 mg DAILY PRN Administration SEVERE anxiety/panic Diphenhydramine HCl 50 mg 03/19/21 13:32 Diphenhydramine Hcl 25 Mg Tablet PO Q8H PRN EPS, Dystonia Lamotrigine 25 mg 03/26/21 21:00 03/26/21 21:03 Lamotrigine 25 Mg Tablet PO 25 mg BEDTIME DUSTIN Administration Lorazepam 1 mg 03/19/21 13:33 03/22/21 19:03 Lorazepam 1 Mg Tablet PO 1 mg Q6H PRN Administration anxiety, dystonia Magnesium Hydroxide 30 ml 02/27/21 20:08 Milk Of Magnesia 30 Ml Oral.Susp PO DAILY PRN Constipation Melatonin 6 mg 02/27/21 20:09 03/24/21 23:00 Melatonin 3 Mg Tablet PO 6 mg BEDTIME PRN Administration Insomnia Multi-Ingred Cream/Lotion/Oil/Oint 1 appl 03/03/21 19:30 Mineral Oil/Petrolatum,White 106 Gm Tube TOPICAL TID PRN dry skin Nicotine Polacrilex 4 mg 02/27/21 20:08 03/26/21 21:10 Nicotine Polacrilex 2 Mg Gum BUCCAL 4 mg Q2H PRN Administration Nicotine Cravings Patient Own Med 1 each 03/04/21 09:00 03/26/21 10:01 Compound W Strips PO Not Given DAILY DUSTIN Patient Own 1 each 03/13/21 10:30 03/26/21 09:57 Medication ( PO 1 each Norgestimat/Eth Est DAILY DUSTIN Administration 0.25/0.035 Tablet) Olanzapine 5 mg 02/28/21 10:50 03/08/21 23:38 Olanzapine 5 Mg Tablet PO 5 mg TID PRN Administration agitation Olanzapine 10 mg 03/26/21 21:00 03/26/21 21:03 Olanzapine Odt 10 Mg Tab.Rapdis TRANSLINGU 10 mg BEDTIME DUSTIN Administration Trazodone HCl 150 mg 02/27/21 20:09 03/26/21 21:10 Trazodone Hcl 50 Mg Tablet PO 150 mg BEDTIME PRN Administration Insomnia Allergies Allergies Allergy/AdvReac Type Severity Reaction Status Date / Time risperidone [From Risperdal] Allergy Mild gain weight Verified 02/24/21 01:27 aripiprazole [Abilify] Allergy Unknown gain weight Verified 02/24/21 01:27 paliperidone AdvReac dystonia Verified 02/24/21 01:27 Assessment & Plan Assessment & Plan (1) Schizoaffective disorder, bipolar type: Status: Acute Code(s): F25.0 - Schizoaffective disorder, bipolar type Assessment and Plan: Increase Lamictal to 25 mg hs Discontinue Geodon Zydis 10 mg hs Evaluation of headaches- neuro eval by Dr. Prem joyner. Mouth checks-pt reports she has not been taking meds Monitor for initiation of menses. HCG negative Education, alliance building. Greater than 50% of the session was spent on counseling and/or coordination of care Reason for contiued inpatient stay Substantial Risk for: harm to self, inability to function and rapid decompensation
[2021-03-27 18:00] VITALS: BP 112/68; PULSE 94; TEMP 36.8
--- NOTE | 2021-03-27 18:25 | HO.PSYCHPN ---
Subjective Subjective Date of Service: 03/27/21 Reason For Visit: Psychosis Subjective Notes: Conditional Voluntary Healthcare Proxy: No Guardianship: Yes Medical Problems Affecting Mental Status: No Interim History: Appears calmer, greater attention to ADL's and improved interaction with family, team peers at brief intervals. At other times isolative, declines interactions and is in bed. Denies SE from meds. Medication Compliance: Yes Side effects from medications: No Attending Groups: No Review of Systems Acute medical concerns: No Medical Review of Systems: unchanged Review of Systems: MRI of Head ordered for ongoing eval of headaches. Review of Systems Reports behavioral changes Psychiatric: Reports abnormal sleep pattern, Reports anxiety, Reports behavioral changes, Reports depression, Reports difficulty concentrating, Reports auditory hallucinations, Reports hopelessness, Reports irritability, Reports anhedonia, Reports panic attacks, Reports paranoia and Reports suicidal ideation (denies) Mental Status Exam Mental Status Exam Patient Appearance: Appropriate Patient Orientation: Person, Place, Time and Situation Level of Consciousness: Alert Patient Behavior: Appropriate, Guarded, Talkative, Suspicious, Avoidant and Isolative Mood Description: Constricted Affect Description: Constricted Patient Cognition Impaired: Yes Ability to Follow Directions: Good Speech Pattern: Spontaneous Speech Memory Description: Episodic Impaired Hallucinations: None (denies) Delusions: Not Present Thought Process: Rumination Thought Content: positive for Goal Oriented Depressive Symptoms: Sleeping More Than Usual, Feelings of Guilt, Low Self Esteem and Difficulty Concentrating Judgement: Poor Diagnostics Vital Signs (24Hr): Body Mass Index 24.3 Labs Results: 03/20/21 08:03 03/19/21 07:48 Imaging Radiology Impressions: ITS Impressions Brain MRI 03/27/21 14:04 IMPRESSION: Normal limited MRI of the brain with motion artifacts. Medications Medications Current Medications Generic Name Dose Route Start Last Admin Trade Name Freq PRN Reason Stop Dose Admin Acetaminophen 650 mg 02/27/21 20:08 03/17/21 05:55 Acetaminophen 325 Mg Tablet PO 650 mg Q6H PRN Administration Headache/Pain Mild Scale (1-3) Al Hydroxide/Mg Hydroxide 30 ml 02/27/21 20:08 Magnesium Hydrox/Alum Hydrox 30 Ml Oral.Susp PO Q6H PRN Heartburn/Nausea Albuterol Sulfate 2 puff 03/02/21 21:23 03/15/21 09:51 Albuterol Sulfate 90 Mcg 8 Gm Inhaler INHALE 2 puff RQ4H PRN Administration Shortness of Breath Clonazepam 0.5 mg 03/02/21 21:41 03/26/21 13:13 Clonazepam 0.5 Mg Tablet PO 0.5 mg DAILY PRN Administration SEVERE anxiety/panic Diphenhydramine HCl 50 mg 03/19/21 13:32 Diphenhydramine Hcl 25 Mg Tablet PO Q8H PRN EPS, Dystonia Lamotrigine 25 mg 03/26/21 21:00 03/26/21 21:03 Lamotrigine 25 Mg Tablet PO 25 mg BEDTIME DUSTIN Administration Lorazepam 1 mg 03/19/21 13:33 03/22/21 19:03 Lorazepam 1 Mg Tablet PO 1 mg Q6H PRN Administration anxiety, dystonia Magnesium Hydroxide 30 ml 02/27/21 20:08 Milk Of Magnesia 30 Ml Oral.Susp PO DAILY PRN Constipation Melatonin 6 mg 02/27/21 20:09 03/24/21 23:00 Melatonin 3 Mg Tablet PO 6 mg BEDTIME PRN Administration Insomnia Multi-Ingred Cream/Lotion/Oil/Oint 1 appl 03/03/21 19:30 Mineral Oil/Petrolatum,White 106 Gm Tube TOPICAL TID PRN dry skin Nicotine Polacrilex 4 mg 02/27/21 20:08 03/26/21 21:10 Nicotine Polacrilex 2 Mg Gum BUCCAL 4 mg Q2H PRN Administration Nicotine Cravings Patient Own Med 1 each 03/04/21 09:00 03/27/21 11:20 Compound W Strips PO Not Given DAILY DUSTIN Patient Own 1 each 03/13/21 10:30 03/27/21 13:04 Medication ( PO 1 each Norgestimat/Eth Est DAILY DUSTIN Administration 0.25/0.035 Tablet) Olanzapine 5 mg 02/28/21 10:50 03/08/21 23:38 Olanzapine 5 Mg Tablet PO 5 mg TID PRN Administration agitation Olanzapine 10 mg 03/26/21 21:00 03/26/21 21:03 Olanzapine Odt 10 Mg Tab.Rapdis TRANSLINGU 10 mg BEDTIME DUSTIN Administration Trazodone HCl 150 mg 02/27/21 20:09 03/26/21 21:10 Trazodone Hcl 50 Mg Tablet PO 150 mg BEDTIME PRN Administration Insomnia Allergies Allergies Allergy/AdvReac Type Severity Reaction Status Date / Time risperidone [From Risperdal] Allergy Mild gain weight Verified 02/24/21 01:27 aripiprazole [Abilify] Allergy Unknown gain weight Verified 02/24/21 01:27 paliperidone AdvReac dystonia Verified 02/24/21 01:27 Assessment & Plan Assessment & Plan (1) Schizoaffective disorder, bipolar type: Status: Acute Code(s): F25.0 - Schizoaffective disorder, bipolar type Assessment and Plan: Continue Lamictal 25 mg hs Continue Zydis 10 mg hs Evaluation of headaches- neuro eval by Dr. Amaro appreciated. MRI ordered Mouth checks-pt reports she has not been taking meds Monitor for initiation of menses. HCG negative Education, alliance building. Greater than 50% of the session was spent on counseling and/or coordination of care Reason for contiued inpatient stay Substantial Risk for: harm to self, harm to others, inability to function and rapid decompensation
[2021-03-27] MEDS: Nicotine Polacrilex 2 MG GUM 4 MG BUCCAL ×2 (18:48→19:34)
[2021-03-27] MEDS: clonazePAM 0.5 MG TABLET PO (20:24)
[2021-03-27] MEDS: OLANZapine ODT 10 MG TAB.RAPDIS TRANSLINGU (20:24)
[2021-03-27] MEDS: lamoTRIgine 25 MG TABLET PO (20:24)
--- NOTE | 2021-03-28 13:35 | HO.PSYCHPN ---
Subjective Subjective Date of Service: 03/28/21 Reason For Visit: Psychosis Subjective Notes: Conditional Voluntary Healthcare Proxy: No Guardianship: Yes Medical Problems Affecting Mental Status: No Interim History: Pt spent most of the day in her room, in bed, resting, sleeping, reading, writing. Seen in milieu in the evening. Increased socialization and involvement. Lability present with some decrease. Reports she is feeling OK, denies SE or sx breaking through. Continue titration 03/29. Medication Compliance: Yes Side effects from medications: No Attending Groups: Yes Review of Systems Acute medical concerns: No Medical Review of Systems: unchanged Review of Systems Reports behavioral changes Psychiatric: Reports abnormal sleep pattern, Reports behavioral changes, Reports depression, Reports auditory hallucinations, Reports irritability, Reports anhedonia, Reports mood swings and Reports suicidal ideation (denies this) Diagnostics Vital Signs (24Hr): Vital Signs - 24 hr 03/27/21 18:00 Temperature 98.3 F Pulse Rate 94 Blood Pressure 112/68 Body Mass Index 24.3 Labs Results: 03/20/21 08:03 03/19/21 07:48 Imaging Radiology Impressions: ITS Impressions Brain MRI 03/27/21 14:04 IMPRESSION: Normal limited MRI of the brain with motion artifacts. Medications Medications Current Medications Generic Name Dose Route Start Last Admin Trade Name Freq PRN Reason Stop Dose Admin Acetaminophen 650 mg 02/27/21 20:08 03/17/21 05:55 Acetaminophen 325 Mg Tablet PO 650 mg Q6H PRN Administration Headache/Pain Mild Scale (1-3) Al Hydroxide/Mg Hydroxide 30 ml 02/27/21 20:08 Magnesium Hydrox/Alum Hydrox 30 Ml Oral.Susp PO Q6H PRN Heartburn/Nausea Albuterol Sulfate 2 puff 03/02/21 21:23 03/15/21 09:51 Albuterol Sulfate 90 Mcg 8 Gm Inhaler INHALE 2 puff RQ4H PRN Administration Shortness of Breath Clonazepam 0.5 mg 03/02/21 21:41 03/27/21 20:24 Clonazepam 0.5 Mg Tablet PO 0.5 mg DAILY PRN Administration SEVERE anxiety/panic Diphenhydramine HCl 50 mg 03/19/21 13:32 Diphenhydramine Hcl 25 Mg Tablet PO Q8H PRN EPS, Dystonia Lamotrigine 25 mg 03/26/21 21:00 03/27/21 20:24 Lamotrigine 25 Mg Tablet PO 25 mg BEDTIME DUSTIN Administration Lorazepam 1 mg 03/19/21 13:33 03/22/21 19:03 Lorazepam 1 Mg Tablet PO 1 mg Q6H PRN Administration anxiety, dystonia Magnesium Hydroxide 30 ml 02/27/21 20:08 Milk Of Magnesia 30 Ml Oral.Susp PO DAILY PRN Constipation Melatonin 6 mg 02/27/21 20:09 03/24/21 23:00 Melatonin 3 Mg Tablet PO 6 mg BEDTIME PRN Administration Insomnia Multi-Ingred Cream/Lotion/Oil/Oint 1 appl 03/03/21 19:30 Mineral Oil/Petrolatum,White 106 Gm Tube TOPICAL TID PRN dry skin Nicotine Polacrilex 4 mg 02/27/21 20:08 03/27/21 19:34 Nicotine Polacrilex 2 Mg Gum BUCCAL 2 mg Q2H PRN Administration Nicotine Cravings Patient Own Med 1 each 03/04/21 09:00 03/28/21 11:08 Compound W Strips PO Not Given DAILY DUSTIN Patient Own 1 each 03/13/21 10:30 03/28/21 11:10 Medication ( PO 1 each Norgestimat/Eth Est DAILY DUSTIN Administration 0.25/0.035 Tablet) Olanzapine 5 mg 02/28/21 10:50 03/08/21 23:38 Olanzapine 5 Mg Tablet PO 5 mg TID PRN Administration agitation Olanzapine 10 mg 03/26/21 21:00 03/27/21 20:24 Olanzapine Odt 10 Mg Tab.Rapdis TRANSLINGU 10 mg BEDTIME DUSTIN Administration Trazodone HCl 150 mg 02/27/21 20:09 03/26/21 21:10 Trazodone Hcl 50 Mg Tablet PO 150 mg BEDTIME PRN Administration Insomnia Allergies Allergies Allergy/AdvReac Type Severity Reaction Status Date / Time risperidone [From Risperdal] Allergy Mild gain weight Verified 02/24/21 01:27 aripiprazole [Abilify] Allergy Unknown gain weight Verified 02/24/21 01:27 paliperidone AdvReac dystonia Verified 02/24/21 01:27 Assessment & Plan Assessment & Plan (1) Schizoaffective disorder, bipolar type: Status: Acute Code(s): F25.0 - Schizoaffective disorder, bipolar type Assessment and Plan: Continue Lamictal 25 mg hs Continue Zydis 10 mg hs Evaluation of headaches- neuro eval by Dr. Amaro appreciated. MRI ordered Mouth checks-pt reports she has not been taking meds Monitor for initiation of menses. HCG negative Education, alliance building. Greater than 50% of the session was spent on counseling and/or coordination of care Reason for contiued inpatient stay Substantial Risk for: harm to self, inability to function and rapid decompensation
[2021-03-28] MEDS: clonazePAM 0.5 MG TABLET PO (14:15)
[2021-03-28] MEDS: Nicotine Polacrilex 2 MG GUM 4 MG BUCCAL (14:16)
[2021-03-28 18:00] VITALS: BP 114/76; PULSE 99; TEMP 37
[2021-03-28] MEDS: traZODone HCL 50 MG TABLET 150 MG PO (20:32)
[2021-03-28] MEDS: Melatonin 3 MG TABLET 6 MG PO (20:32)
[2021-03-28] MEDS: OLANZapine ODT 10 MG TAB.RAPDIS TRANSLINGU (20:32)
[2021-03-28] MEDS: lamoTRIgine 25 MG TABLET PO (20:32)
--- NOTE | 2021-03-29 14:58 | HO.PSYCHPN ---
Subjective Subjective Date of Service: 03/29/21 Reason For Visit: Psychosis Subjective Notes: Conditional Voluntary Healthcare Proxy: No Guardianship: Yes Medical Problems Affecting Mental Status: No Interim History: Pt with reported breakthrough lability and agitation today-guarded, irritable, not taking any calls from her family and isolative. Pt reports she feels well-no issues, reports no lability. Medication Compliance: Yes Side effects from medications: No Attending Groups: Intermittent Review of Systems Acute medical concerns: No Medical Review of Systems: unchanged Review of Systems Reports behavioral changes Psychiatric: Reports behavioral changes, Reports irritability, Reports mood swings and Reports paranoia Mental Status Exam Mental Status Exam Patient Appearance: Appropriate Patient Orientation: Person, Place, Time and Situation Level of Consciousness: Alert Patient Behavior: Guarded, Talkative, Suspicious, Anxious, Avoidant, Isolative and Good Eye Contact Mood Description: Suspicious, Withdrawn, Labile and Apprehensive Affect Description: Labile Patient Cognition Impaired: No Ability to Follow Directions: Fair Speech Pattern: Spontaneous Speech Memory Description: Episodic Impaired Hallucinations: None (denies) Delusions: Present Thought Process: Distracted and Evasive Thought Content: positive for [place], positive for Circumstantial and positive for Evasive Depressive Symptoms: Diff. Making Decisions, Increased Irritability, Unhappiness and Difficulty Concentrating Judgement: Poor Diagnostics Vital Signs (24Hr): Vital Signs - 24 hr 03/28/21 18:00 Temperature 98.6 F Pulse Rate 99 Blood Pressure 114/76 Body Mass Index 24.3 Labs Results: 03/20/21 08:03 03/19/21 07:48 Imaging Radiology Impressions: ITS Impressions Brain MRI 03/27/21 14:04 IMPRESSION: Normal limited MRI of the brain with motion artifacts. Medications Medications Current Medications Generic Name Dose Route Start Last Admin Trade Name Freq PRN Reason Stop Dose Admin Acetaminophen 650 mg 02/27/21 20:08 03/17/21 05:55 Acetaminophen 325 Mg Tablet PO 650 mg Q6H PRN Administration Headache/Pain Mild Scale (1-3) Al Hydroxide/Mg Hydroxide 30 ml 02/27/21 20:08 Magnesium Hydrox/Alum Hydrox 30 Ml Oral.Susp PO Q6H PRN Heartburn/Nausea Albuterol Sulfate 2 puff 03/02/21 21:23 03/15/21 09:51 Albuterol Sulfate 90 Mcg 8 Gm Inhaler INHALE 2 puff RQ4H PRN Administration Shortness of Breath Clonazepam 0.5 mg 03/02/21 21:41 03/28/21 14:15 Clonazepam 0.5 Mg Tablet PO 0.5 mg DAILY PRN Administration SEVERE anxiety/panic Diphenhydramine HCl 50 mg 03/19/21 13:32 Diphenhydramine Hcl 25 Mg Tablet PO Q8H PRN EPS, Dystonia Lamotrigine 25 mg 03/26/21 21:00 03/28/21 20:32 Lamotrigine 25 Mg Tablet PO 25 mg BEDTIME DUSTIN Administration Lorazepam 1 mg 03/19/21 13:33 03/22/21 19:03 Lorazepam 1 Mg Tablet PO 1 mg Q6H PRN Administration anxiety, dystonia Magnesium Hydroxide 30 ml 02/27/21 20:08 Milk Of Magnesia 30 Ml Oral.Susp PO DAILY PRN Constipation Melatonin 6 mg 02/27/21 20:09 03/28/21 20:32 Melatonin 3 Mg Tablet PO 6 mg BEDTIME PRN Administration Insomnia Multi-Ingred Cream/Lotion/Oil/Oint 1 appl 03/03/21 19:30 Mineral Oil/Petrolatum,White 106 Gm Tube TOPICAL TID PRN dry skin Nicotine Polacrilex 4 mg 02/27/21 20:08 03/28/21 14:16 Nicotine Polacrilex 2 Mg Gum BUCCAL 4 mg Q2H PRN Administration Nicotine Cravings Patient Own Med 1 each 03/04/21 09:00 03/28/21 11:08 Compound W Strips PO Not Given DAILY DSUTIN Patient Own 1 each 03/13/21 10:30 03/29/21 13:13 Medication ( PO 1 each Norgestimat/Eth Est DAILY DUSTIN Administration 0.25/0.035 Tablet) Olanzapine 5 mg 02/28/21 10:50 03/08/21 23:38 Olanzapine 5 Mg Tablet PO 5 mg TID PRN Administration agitation Olanzapine 10 mg 03/26/21 21:00 03/28/21 20:32 Olanzapine Odt 10 Mg Tab.Rapdis TRANSLINGU 10 mg BEDTIME DUSTIN Administration Trazodone HCl 150 mg 02/27/21 20:09 03/28/21 20:32 Trazodone Hcl 50 Mg Tablet PO 150 mg BEDTIME PRN Administration Insomnia Allergies Allergies Allergy/AdvReac Type Severity Reaction Status Date / Time risperidone [From Risperdal] Allergy Mild gain weight Verified 02/24/21 01:27 aripiprazole [Abilify] Allergy Unknown gain weight Verified 02/24/21 01:27 paliperidone AdvReac dystonia Verified 02/24/21 01:27 Assessment & Plan Assessment & Plan (1) Schizoaffective disorder, bipolar type: Status: Acute Code(s): F25.0 - Schizoaffective disorder, bipolar type Assessment and Plan: Continue Lamictal 25 mg hs Increase Zydis to 15 mg hs on 03/30/21. Evaluation of headaches- neuro eval by Dr. Amaro appreciated. MRI ordered Mouth checks-pt reports she has not been taking meds Monitor for initiation of menses. HCG negative Education, alliance building. Greater than 50% of the session was spent on counseling and/or coordination of care Reason for contiued inpatient stay Substantial Risk for: harm to self, harm to others, inability to function and rapid decompensation
[2021-03-29 18:00] VITALS: BP 143/86; PULSE 81; TEMP 36.9
[2021-03-29] MEDS: Nicotine Polacrilex 2 MG GUM 4 MG BUCCAL ×2 (18:23→20:31)
[2021-03-29] MEDS: clonazePAM 0.5 MG TABLET PO (19:45)
[2021-03-29] MEDS: OLANZapine ODT 10 MG TAB.RAPDIS TRANSLINGU (20:31)
[2021-03-29] MEDS: lamoTRIgine 25 MG TABLET PO (20:31)
[2021-03-29] MEDS: Melatonin 3 MG TABLET 6 MG PO (22:11)
[2021-03-29] MEDS: traZODone HCL 50 MG TABLET 150 MG PO (22:11)
[2021-03-30] MEDS: Nicotine Polacrilex 2 MG GUM 4 MG BUCCAL ×2 (15:47→20:50)
[2021-03-30 16:25] VITALS: BP 128/61; PULSE 100; TEMP 37
--- NOTE | 2021-03-30 17:57 | HO.PSYCHPN ---
Subjective Subjective Date of Service: 03/31/21 Reason For Visit: Psychosis Subjective Notes: Conditional Voluntary Interim History: Patient seen and discussed with team. Patient evaluated this morning and upon interview she reports she is feeling good. She states I haven't heard anything, denies A/VH. She is somewhat confused about her treatment plan, as she is on zydis but says they will put me on a shot and see how I do then I can go. She says she wants to get on a med for dystonia. Discussed s/s of dystonia and she denies sx of EPS, AIMs is 0. Later in the interview, Liane reorts I feel a little depressed, I used to have a better life. She says her mom is a good support, she wants to do yoga. Sleep is good but says she is having weird dreams, attributes this to anxiety. Appetite is good. She has not been attending group, per Oracio, this is because im a germaphobe and I stay to myself. She says she feels safe on the unit. In the milieu, patient is safe but isolative in behavior. Denies SI/SIB/HI upon inquiry. Denies irritability or assaultive ideation. Medication Compliance: Yes Side effects from medications: No Attending Groups: No Review of Systems Medical Review of Systems: unchanged Mental Status Exam Mental Status Exam Narrative: Somewhat unkempt, normal body habitus. Good eye contact, somewhat attentive. No Tics or Tremors. No abnormal involuntary movements. Calm, guarded, somewhat engaged. Non-pressured speech, non-spontaneous with regular rate and rhythm, normal volume and prosody. No prolonged speech latency or dysarthria. Mood is ?depressed,? affect is constricted. Denies SI/SIB/HI upon inquiry. Denies A/VH or delusional thought content but appears internally preoccupied. Thoughts are coherent, intact. No known cognitive or memory impairment. Insight/ Judgment limited but adequate. Diagnostics Vital Signs (24Hr): Vital Signs - 24 hr 03/29/21 18:00 03/30/21 16:25 Temperature 98.5 F 98.6 F Pulse Rate 81 100 Blood Pressure 143/86 H 128/61 Body Mass Index 24.3 Labs Results: 03/20/21 08:03 03/19/21 07:48 Imaging Radiology Impressions: ITS Impressions Brain MRI 03/27/21 14:04 IMPRESSION: Normal limited MRI of the brain with motion artifacts. Medications Medications Current Medications Generic Name Dose Route Start Last Admin Trade Name [place] PRN Reason Stop Dose Admin Acetaminophen 650 mg 02/27/21 20:08 03/17/21 05:55 Acetaminophen 325 Mg Tablet PO 650 mg Q6H PRN Administration Headache/Pain Mild Scale (1-3) Al Hydroxide/Mg Hydroxide 30 ml 02/27/21 20:08 Magnesium Hydrox/Alum Hydrox 30 Ml Oral.Susp PO Q6H PRN Heartburn/Nausea Albuterol Sulfate 2 puff 03/02/21 21:23 03/15/21 09:51 Albuterol Sulfate 90 Mcg 8 Gm Inhaler INHALE 2 puff RQ4H PRN Administration Shortness of Breath Clonazepam 0.5 mg 03/02/21 21:41 03/29/21 19:45 Clonazepam 0.5 Mg Tablet PO 0.5 mg DAILY PRN Administration SEVERE anxiety/panic Diphenhydramine HCl 50 mg 03/19/21 13:32 Diphenhydramine Hcl 25 Mg Tablet PO Q8H PRN EPS, Dystonia Lamotrigine 25 mg 03/26/21 21:00 03/29/21 20:31 Lamotrigine 25 Mg Tablet PO 25 mg BEDTIME DUSTIN Administration Lorazepam 1 mg 03/19/21 13:33 03/22/21 19:03 Lorazepam 1 Mg Tablet PO 1 mg Q6H PRN Administration anxiety, dystonia Magnesium Hydroxide 30 ml 02/27/21 20:08 Milk Of Magnesia 30 Ml Oral.Susp PO DAILY PRN Constipation Melatonin 6 mg 02/27/21 20:09 03/29/21 22:11 Melatonin 3 Mg Tablet PO 6 mg BEDTIME PRN Administration Insomnia Multi-Ingred Cream/Lotion/Oil/Oint 1 appl 03/03/21 19:30 Mineral Oil/Petrolatum,White 106 Gm Tube TOPICAL TID PRN dry skin Nicotine Polacrilex 4 mg 02/27/21 20:08 03/30/21 15:47 Nicotine Polacrilex 2 Mg Gum BUCCAL 4 mg Q2H PRN Administration Nicotine Cravings Patient Own Med 1 each 03/04/21 09:00 03/30/21 11:03 Compound W Strips PO Not Given DAILY DUSTIN Patient Own 1 each 03/13/21 10:30 03/30/21 08:57 Medication ( PO 1 each Norgestimat/Eth Est DAILY DUSTIN Administration 0.25/0.035 Tablet) Olanzapine 5 mg 02/28/21 10:50 03/08/21 23:38 Olanzapine 5 Mg Tablet PO 5 mg TID PRN Administration agitation Olanzapine 15 mg 03/30/21 21:00 Olanzapine Odt 10 Mg Tab.Rapdis TRANSLINGU BEDTIME DUSTIN Trazodone HCl 150 mg 02/27/21 20:09 03/29/21 22:11 Trazodone Hcl 50 Mg Tablet PO 150 mg BEDTIME PRN Administration Insomnia Allergies Allergies Allergy/AdvReac Type Severity Reaction Status Date / Time risperidone [From Risperdal] Allergy Mild gain weight Verified 02/24/21 01:27 aripiprazole [Abilify] Allergy Unknown gain weight Verified 02/24/21 01:27 paliperidone AdvReac dystonia Verified 02/24/21 01:27 Assessment & Plan Assessment & Plan (1) Schizoaffective disorder, bipolar type: Status: Acute Code(s): F25.0 - Schizoaffective disorder, bipolar type Assessment and Plan: Continue Lamictal 25 mg hs Continue Zydis, was increased to 15 mg hs on 03/30/21. Evaluation of headaches- neuro eval by Dr. Prem joyner. MRI reviewed and wnl. Mouth checks-pt reports she has not been taking meds Monitor for initiation of menses. HCG negative Education, alliance building. Greater than 50% of the session was spent on counseling and/or coordination of care Reason for contiued inpatient stay Substantial Risk for: rapid decompensation and med/psych decompensation
[2021-03-30] MEDS: Milk of Magnesia 30 ML ORAL.SUSP PO (19:02)
[2021-03-30] MEDS: traZODone HCL 50 MG TABLET 150 MG PO (20:50)
[2021-03-30] MEDS: OLANZapine ODT 10 MG TAB.RAPDIS 15 MG TRANSLINGU (20:51)
[2021-03-30] MEDS: lamoTRIgine 25 MG TABLET PO (20:51)
[2021-03-30] MEDS: Melatonin 3 MG TABLET 6 MG PO (20:51)
[2021-03-30] MEDS: Acetaminophen 325 MG TABLET 650 MG PO (22:13)
--- NOTE | 2021-03-31 14:19 | P.PNPSI_ITS ---
Subjective Subjective Date of Service: 04/01/21 Reason For Visit: Psychosis Subjective Notes: Conditional Voluntary Interim History: Patient seen and discussed with team. Patient evaluated this morning and upon interview she reports she is feeling good. Says sleep and appetite are good. Per billing and accounting staff assistant, BP was low, reviewed drinking enough fluids. Says her energy is okay. She denies having hallucinations but appears to be internally preoccupied, guarded. Denies having questions or concerns. She reports attending one group yesterday in the evening, a [employer] activity. In the milieu, patient is safe but isolative in behavior. Denies SI/SIB/HI upon inquiry. Denies irritability or assaultive ideation. Mental Status Exam Mental Status Exam Narrative: Somewhat unkempt, normal body habitus. Good eye contact, somewhat attentive. No Tics or Tremors. No abnormal involuntary movements. Calm, guarded, somewhat engaged. Non-pressured speech, non-spontaneous with regular rate and rhythm, normal volume and prosody. No prolonged speech latency or dysarthria. Mood is ?good,? affect is constricted. Denies SI/SIB/HI upon inquiry. Denies A/VH or delusional thought content but appears internally preoccupied. Thoughts are coherent, intact. No known cognitive or memory impairment. Insight/ Judgment limited but adequate. Diagnostics Vital Signs (24Hr): Vital Signs - 24 hr 03/30/21 16:25 Temperature 98.6 F Pulse Rate 100 Blood Pressure 128/61 Body Mass Index 24.3 Labs Results: 03/20/21 08:03 03/19/21 07:48 Imaging Radiology Impressions: ITS Impressions Brain MRI 03/27/21 14:04 IMPRESSION: Normal limited MRI of the brain with motion artifacts. Medications Medications Current Medications Generic Name Dose Route Start Last Admin Trade Name Freq PRN Reason Stop Dose Admin Acetaminophen 650 mg 02/27/21 20:08 03/30/21 22:13 Acetaminophen 325 Mg Tablet PO 650 mg Q6H PRN Administration Headache/Pain Mild Scale (1-3) Al Hydroxide/Mg Hydroxide 30 ml 02/27/21 20:08 Magnesium Hydrox/Alum Hydrox 30 Ml Oral.Susp PO Q6H PRN Heartburn/Nausea Albuterol Sulfate 2 puff 03/02/21 21:23 03/15/21 09:51 Albuterol Sulfate 90 Mcg 8 Gm Inhaler INHALE 2 puff RQ4H PRN Administration Shortness of Breath Clonazepam 0.5 mg 03/02/21 21:41 03/29/21 19:45 Clonazepam 0.5 Mg Tablet PO 0.5 mg DAILY PRN Administration SEVERE anxiety/panic Diphenhydramine HCl 50 mg 03/19/21 13:32 Diphenhydramine Hcl 25 Mg Tablet PO Q8H PRN EPS, Dystonia Lamotrigine 25 mg 03/26/21 21:00 03/30/21 20:51 Lamotrigine 25 Mg Tablet PO 25 mg BEDTIME DUSTIN Administration Lorazepam 1 mg 03/19/21 13:33 03/22/21 19:03 Lorazepam 1 Mg Tablet PO 1 mg Q6H PRN Administration anxiety, dystonia Magnesium Hydroxide 30 ml 02/27/21 20:08 03/30/21 19:02 Milk Of Magnesia 30 Ml Oral.Susp PO 30 ml DAILY PRN Administration Constipation Melatonin 6 mg 02/27/21 20:09 03/30/21 20:51 Melatonin 3 Mg Tablet PO 6 mg BEDTIME PRN Administration Insomnia Multi-Ingred Cream/Lotion/Oil/Oint 1 appl 03/03/21 19:30 Mineral Oil/Petrolatum,White 106 Gm Tube TOPICAL TID PRN dry skin Nicotine Polacrilex 4 mg 02/27/21 20:08 03/30/21 20:50 Nicotine Polacrilex 2 Mg Gum BUCCAL 4 mg Q2H PRN Administration Nicotine Cravings Patient Own Med 1 each 03/04/21 09:00 03/31/21 09:00 Compound W Strips PO Not Given DAILY DUSTIN Patient Own 1 each 03/13/21 10:30 03/31/21 12:40 Medication ( PO 1 each Norgestimat/Eth Est DAILY DUSTIN Administration 0.25/0.035 Tablet) Olanzapine 5 mg 02/28/21 10:50 03/08/21 23:38 Olanzapine 5 Mg Tablet PO 5 mg TID PRN Administration agitation Olanzapine 15 mg 03/30/21 21:00 03/30/21 20:51 Olanzapine Odt 10 Mg Tab.Rapdis TRANSLINGU 15 mg BEDTIME DUSTIN Administration Trazodone HCl 150 mg 02/27/21 20:09 03/30/21 20:50 Trazodone Hcl 50 Mg Tablet PO 150 mg BEDTIME PRN Administration Insomnia Allergies Allergies Allergy/AdvReac Type Severity Reaction Status Date / Time risperidone [From Risperdal] Allergy Mild gain weight Verified 02/24/21 01:27 aripiprazole [Abilify] Allergy Unknown gain weight Verified 02/24/21 01:27 paliperidone AdvReac dystonia Verified 02/24/21 01:27 Assessment & Plan Assessment & Plan (1) Schizoaffective disorder, bipolar type: Status: Acute Code(s): F25.0 - Schizoaffective disorder, bipolar type Assessment and Plan: Continue Lamictal 25 mg hs Continue Zydis, was increased to 15 mg hs on 03/30/21. Will monitor for benefit. Evaluation of headaches- neuro eval by Dr. Prem joyner. MRI reviewed and wnl. Mouth checks-pt reports she has not been taking meds Monitor for initiation of menses. HCG negative Education, alliance building. Greater than 50% of the session was spent on counseling and/or coordination of care Reason for contiued inpatient stay Substantial Risk for: inability to function, rapid decompensation and med/psych decompensation
[2021-03-31 14:20] VITALS: BP 95/58; PULSE 88; RESP 16; TEMP 37.1
[2021-03-31] MEDS: Nicotine Polacrilex 2 MG GUM 4 MG BUCCAL ×2 (15:22→20:38)
[2021-03-31 16:15] VITALS: BP 134/90; PULSE 70; TEMP 36.4
[2021-03-31] MEDS: OLANZapine ODT 10 MG TAB.RAPDIS 15 MG TRANSLINGU (20:38)
[2021-03-31] MEDS: clonazePAM 0.5 MG TABLET PO (20:38)
[2021-03-31] MEDS: Melatonin 3 MG TABLET 6 MG PO (20:38)
[2021-03-31] MEDS: traZODone HCL 50 MG TABLET 150 MG PO (20:38)
[2021-03-31] MEDS: lamoTRIgine 25 MG TABLET PO (20:38)
[2021-04-01 11:54] VITALS: BP 96/66; PULSE 96; RESP 16
[2021-04-01] MEDS: Nicotine Polacrilex 2 MG GUM 4 MG BUCCAL (13:06)
[2021-04-01] MEDS: Milk of Magnesia 30 ML ORAL.SUSP PO (13:06)
[2021-04-01] MEDS: clonazePAM 0.5 MG TABLET PO (13:08)
--- NOTE | 2021-04-01 17:30 | HO.PSYCHPN ---
Subjective Subjective Date of Service: 04/01/21 Reason For Visit: Psychosis Subjective Notes: Conditional Voluntary Healthcare Proxy: No Guardianship: Yes Medical Problems Affecting Mental Status: No Interim History: Met with Desi who reports she is concerned about weight gain SE from medications, however, feels improved symptom management with changes made. Discussed adding Benztropine prn for SE if they arise (she had asked to stop this last week) and low dose Topiramate for added mood and weight gain mgt strategies. Pt ready to trial Invega again. Will discuss with pt's mom/guardian her request. Medication Compliance: Yes Side effects from medications: Yes (reports weight gain) Attending Groups: Intermittent Review of Systems Acute medical concerns: No Medical Review of Systems: unchanged Review of Systems Psychiatric: Reports anxiety, Reports change in appetite, Reports irritability and Reports mood swings Mental Status Exam Mental Status Exam Patient Appearance: Appropriate Patient Orientation: Person, Place, Time and Situation Level of Consciousness: Alert Patient Behavior: Talkative, Cooperative, Anxious and Good Eye Contact Mood Description: Anxious Affect Description: Anxious Patient Cognition Impaired: No Ability to Follow Directions: Good Speech Pattern: Spontaneous Speech Memory Description: Remote Impaired and Episodic Impaired Delusions: Paranoid Ideation and Present Thought Process: Rumination Thought Content: positive for Obsessional Thoughts, positive for Perseveration, positive for Preoccupation and positive for Thought Blocking Depressive Symptoms: Increased Anxiety, Diff. Making Decisions, Increased Irritability, Changes in Appetite, Loss of Int. in Activity, Feelings of Worthlessness, Hopelessness, Unhappiness, Increased Fatigue, Low Self Esteem, Loss of Energy and Difficulty Concentrating Judgement: Fair Diagnostics Vital Signs (24Hr): Vital Signs - 24 hr 04/01/21 11:54 Pulse Rate 96 Respiratory Rate 16 Blood Pressure 96/66 Body Mass Index 24.3 Labs Results: 03/20/21 08:03 03/19/21 07:48 Imaging Radiology Impressions: ITS Impressions Brain MRI 03/27/21 14:04 IMPRESSION: Normal limited MRI of the brain with motion artifacts. Medications Medications Current Medications Generic Name Dose Route Start Last Admin Trade Name Freq PRN Reason Stop Dose Admin Acetaminophen 650 mg 02/27/21 20:08 03/30/21 22:13 Acetaminophen 325 Mg Tablet PO 650 mg Q6H PRN Administration Headache/Pain Mild Scale (1-3) Al Hydroxide/Mg Hydroxide 30 ml 02/27/21 20:08 Magnesium Hydrox/Alum Hydrox 30 Ml Oral.Susp PO Q6H PRN Heartburn/Nausea Albuterol Sulfate 2 puff 03/02/21 21:23 03/15/21 09:51 Albuterol Sulfate 90 Mcg 8 Gm Inhaler INHALE 2 puff RQ4H PRN Administration Shortness of Breath Benztropine Mesylate 1 mg 04/01/21 15:35 Benztropine Mesylate 1 Mg Tablet PO BID PRN EPS Clonazepam 0.5 mg 03/02/21 21:41 04/01/21 13:08 Clonazepam 0.5 Mg Tablet PO 0.5 mg DAILY PRN Administration SEVERE anxiety/panic Diphenhydramine HCl 50 mg 03/19/21 13:32 Diphenhydramine Hcl 25 Mg Tablet PO Q8H PRN EPS, Dystonia Lamotrigine 25 mg 03/26/21 21:00 03/31/21 20:38 Lamotrigine 25 Mg Tablet PO 25 mg BEDTIME DUSTIN Administration Lorazepam 1 mg 03/19/21 13:33 03/22/21 19:03 Lorazepam 1 Mg Tablet PO 1 mg Q6H PRN Administration anxiety, dystonia Magnesium Hydroxide 30 ml 02/27/21 20:08 04/01/21 13:06 Milk Of Magnesia 30 Ml Oral.Susp PO 30 ml DAILY PRN Administration Constipation Melatonin 6 mg 02/27/21 20:09 03/31/21 20:38 Melatonin 3 Mg Tablet PO 6 mg BEDTIME PRN Administration Insomnia Multi-Ingred Cream/Lotion/Oil/Oint 1 appl 03/03/21 19:30 Mineral Oil/Petrolatum,White 106 Gm Tube TOPICAL TID PRN dry skin Nicotine Polacrilex 4 mg 02/27/21 20:08 04/01/21 13:06 Nicotine Polacrilex 2 Mg Gum BUCCAL 4 mg Q2H PRN Administration Nicotine Cravings Patient Own Med 1 each 03/04/21 09:00 04/01/21 09:44 Compound W Strips PO Not Given DAILY DUSTIN Patient Own 1 each 03/13/21 10:30 04/01/21 11:53 Medication ( PO 1 each Norgestimat/Eth Est DAILY DUSTIN Administration 0.25/0.035 Tablet) Olanzapine 5 mg 02/28/21 10:50 03/08/21 23:38 Olanzapine 5 Mg Tablet PO 5 mg TID PRN Administration agitation Olanzapine 15 mg 03/30/21 21:00 03/31/21 20:38 Olanzapine Odt 10 Mg Tab.Rapdis TRANSLINGU 15 mg BEDTIME DUSTIN Administration Topiramate 25 mg 04/02/21 09:00 Topiramate 25 Mg Tablet PO DAILY DUSTIN Trazodone HCl 150 mg 02/27/21 20:09 03/31/21 20:38 Trazodone Hcl 50 Mg Tablet PO 150 mg BEDTIME PRN Administration Insomnia Allergies Allergies Allergy/AdvReac Type Severity Reaction Status Date / Time risperidone [From Risperdal] Allergy Mild gain weight Verified 02/24/21 01:27 aripiprazole [Abilify] Allergy Unknown gain weight Verified 02/24/21 01:27 paliperidone AdvReac dystonia Verified 02/24/21 01:27 Assessment & Plan Assessment & Plan (1) Schizoaffective disorder, bipolar type: Status: Acute Code(s): F25.0 - Schizoaffective disorder, bipolar type Assessment and Plan: Continue Lamictal 25 mg hs Benztropine prn Topiramate 25 mg daily Will discuss transition to Invega with pt's mother/guardian (hx reported dystonia). Continue Zydis, was increased to 15 mg hs on 03/30/21. Will monitor for benefit. Evaluation of headaches- neuro eval by Dr. Prem joyner. MRI reviewed and wnl. Mouth checks-pt reports she has not been taking meds Monitor for initiation of menses. HCG negative Education, alliance building. Greater than 50% of the session was spent on counseling and/or coordination of care Patient educated on: medication risk/benefits Informed Consent: further education needed Reason for contiued inpatient stay Substantial Risk for: harm to self, inability to function and rapid decompensation
[2021-04-01 18:00] VITALS: RESP 18
[2021-04-01] MEDS: traZODone HCL 50 MG TABLET 150 MG PO (20:37)
[2021-04-01] MEDS: lamoTRIgine 25 MG TABLET PO (20:37)
[2021-04-01] MEDS: Melatonin 3 MG TABLET 6 MG PO (20:37)
[2021-04-01] MEDS: OLANZapine ODT 10 MG TAB.RAPDIS 15 MG TRANSLINGU (20:38)
[2021-04-02 06:00] VITALS: RESP 12
--- NOTE | 2021-04-02 09:08 | PC.NURSE ---
PT refused meds. Stated that she did not need the meds and she wanted to be left alone.
[2021-04-02] MEDS: Topiramate 25 MG TABLET PO (12:53)
[2021-04-02] MEDS: Nicotine Polacrilex 2 MG GUM 4 MG BUCCAL ×3 (13:20→19:31)
[2021-04-02 18:00] VITALS: BP 101/63; PULSE 94; TEMP 37.3
[2021-04-02] MEDS: OLANZapine 5 MG TABLET PO (18:34)
--- NOTE | 2021-04-02 18:44 | HO.PSYCHPN ---
Subjective Subjective Date of Service: 04/02/21 Reason For Visit: Psychosis Subjective Notes: Conditional Voluntary Healthcare Proxy: No Guardianship: Yes Interim History: Pt reports feeling well, asking appropriate questions regarding meds, concerned about weight gain. Discussed med choices with pt and mom. Will plan to meet 04/09 to discuss. Will eliminate risperdal, abilify and invega and consider latuda, vraylar retrial, geodon retrial. Mom reports pt's communications with family are less distressful. Pt has told mom she has read information on schizoaffective disorder and agrees this is an appropriate diagnosis. She tells mom she is homesick and wants to return to family and does isolate when she feels symptomatic. Medication Compliance: Yes Side effects from medications: Yes (increase in appetite and weight gain) Attending Groups: Intermittent Review of Systems Acute medical concerns: No Medical Review of Systems: unchanged Review of Systems Reports behavioral changes Psychiatric: Reports anxiety, Reports behavioral changes, Reports change in appetite and Reports irritability Mental Status Exam Mental Status Exam Patient Appearance: Appropriate Patient Orientation: Person, Place, Time and Situation Level of Consciousness: Alert Patient Behavior: Guarded, Talkative, Suspicious, Anxious and Distractible Mood Description: Anxious Affect Description: Anxious Patient Cognition Impaired: Yes Ability to Follow Directions: Good Speech Pattern: Spontaneous Speech and Soft-Spoken Memory Description: Episodic Impaired Hallucinations: None Delusions: Paranoid Ideation and Present Thought Process: Distracted Thought Content: positive for Circumstantial, positive for Perseveration, positive for Preoccupation and positive for Thought Blocking Depressive Symptoms: Increased Anxiety, Diff. Making Decisions, Increased Irritability, Isolating-Friends/Family and Low Self Esteem Abnormal Motor Activity Signs and Symptoms: Restlessness Judgement: Poor Diagnostics Vital Signs (24Hr): Vital Signs - 24 hr 04/02/21 06:00 Respiratory Rate 12 Body Mass Index 24.3 Labs Results: 03/20/21 08:03 03/19/21 07:48 Imaging Radiology Impressions: ITS Impressions Brain MRI 03/27/21 14:04 IMPRESSION: Normal limited MRI of the brain with motion artifacts. Medications Medications Current Medications Generic Name Dose Route Start Last Admin Trade Name Freq PRN Reason Stop Dose Admin Acetaminophen 650 mg 02/27/21 20:08 03/30/21 22:13 Acetaminophen 325 Mg Tablet PO 650 mg Q6H PRN Administration Headache/Pain Mild Scale (1-3) Al Hydroxide/Mg Hydroxide 30 ml 02/27/21 20:08 Magnesium Hydrox/Alum Hydrox 30 Ml Oral.Susp PO Q6H PRN Heartburn/Nausea Albuterol Sulfate 2 puff 03/02/21 21:23 03/15/21 09:51 Albuterol Sulfate 90 Mcg 8 Gm Inhaler INHALE 2 puff RQ4H PRN Administration Shortness of Breath Benztropine Mesylate 1 mg 04/01/21 15:35 Benztropine Mesylate 1 Mg Tablet PO BID PRN EPS Clonazepam 0.5 mg 03/02/21 21:41 04/01/21 13:08 Clonazepam 0.5 Mg Tablet PO 0.5 mg DAILY PRN Administration SEVERE anxiety/panic Diphenhydramine HCl 50 mg 03/19/21 13:32 Diphenhydramine Hcl 25 Mg Tablet PO Q8H PRN EPS, Dystonia Lamotrigine 25 mg 03/26/21 21:00 04/01/21 20:37 Lamotrigine 25 Mg Tablet PO 25 mg BEDTIME DUSTIN Administration Lorazepam 1 mg 03/19/21 13:33 03/22/21 19:03 Lorazepam 1 Mg Tablet PO 1 mg Q6H PRN Administration anxiety, dystonia Magnesium Hydroxide 30 ml 02/27/21 20:08 04/01/21 13:06 Milk Of Magnesia 30 Ml Oral.Susp PO 30 ml DAILY PRN Administration Constipation Melatonin 6 mg 02/27/21 20:09 04/01/21 20:37 Melatonin 3 Mg Tablet PO 6 mg BEDTIME PRN Administration Insomnia Multi-Ingred Cream/Lotion/Oil/Oint 1 appl 03/03/21 19:30 Mineral Oil/Petrolatum,White 106 Gm Tube TOPICAL TID PRN dry skin Nicotine Polacrilex 4 mg 02/27/21 20:08 04/02/21 17:21 Nicotine Polacrilex 2 Mg Gum BUCCAL 4 mg Q2H PRN Administration Nicotine Cravings Patient Own Med 1 each 03/04/21 09:00 04/02/21 12:54 Compound W Strips PO Not Given DAILY DUSTIN Patient Own 1 each 03/13/21 10:30 04/02/21 12:53 Medication ( PO 1 each Norgestimat/Eth Est DAILY DUSTIN Administration 0.25/0.035 Tablet) Olanzapine 5 mg 02/28/21 10:50 04/02/21 18:34 Olanzapine 5 Mg Tablet PO 5 mg TID PRN Administration agitation Olanzapine 15 mg 03/30/21 21:00 04/01/21 20:38 Olanzapine Odt 10 Mg Tab.Rapdis TRANSLINGU 15 mg BEDTIME DUSTIN Administration Topiramate 25 mg 04/02/21 09:00 04/02/21 12:53 Topiramate 25 Mg Tablet PO 25 mg DAILY DUSTIN Administration Trazodone HCl 150 mg 02/27/21 20:09 04/01/21 20:37 Trazodone Hcl 50 Mg Tablet PO 150 mg BEDTIME PRN Administration Insomnia Allergies Allergies Allergy/AdvReac Type Severity Reaction Status Date / Time risperidone [From Risperdal] Allergy Mild gain weight Verified 02/24/21 01:27 aripiprazole [Abilify] Allergy Unknown gain weight Verified 02/24/21 01:27 paliperidone AdvReac dystonia Verified 02/24/21 01:27 Assessment & Plan Assessment & Plan (1) Schizoaffective disorder, bipolar type: Status: Acute Code(s): F25.0 - Schizoaffective disorder, bipolar type Assessment and Plan: Continue Lamictal 25 mg hs Benztropine prn Topiramate 25 mg daily Will discuss transition to [facility], [facility] or return to [facility] for future use, less weight gain and improved compliance. Continue Zydis, was increased to 15 mg hs on 03/30/21. Will monitor for benefit. Evaluation of headaches- neuro eval by Dr. Prem joyner. MRI reviewed and wnl. Mouth checks-pt reports she has not been taking meds Monitor for initiation of menses. HCG negative Education, alliance building. Greater than 50% of the session was spent on counseling and/or coordination of care Reason for contiued inpatient stay Substantial Risk for: harm to self, inability to function and rapid decompensation
[2021-04-02] MEDS: OLANZapine ODT 10 MG TAB.RAPDIS 15 MG TRANSLINGU (20:12)
[2021-04-02] MEDS: lamoTRIgine 25 MG TABLET PO (20:13)
[2021-04-02] MEDS: Melatonin 3 MG TABLET 6 MG PO (20:16)
[2021-04-02] MEDS: traZODone HCL 50 MG TABLET 150 MG PO (20:16)
[2021-04-02] MEDS: Milk of Magnesia 30 ML ORAL.SUSP PO (20:16)
[2021-04-02] MEDS: clonazePAM 0.5 MG TABLET PO (21:00)
[2021-04-03] MEDS: Topiramate 25 MG TABLET PO (08:03)
--- NOTE | 2021-04-03 17:11 | HO.PSYCHPN ---
Subjective Subjective Date of Service: 04/03/21 Reason For Visit: Psychosis Subjective Notes: Conditional Voluntary Healthcare Proxy: No Guardianship: No Medical Problems Affecting Mental Status: No Interim History: Met with pt, mother and Isabella OSPINA. Pt has experienced positive results with med changes but has gained 13 lbs on Olanzapine and asks to make a change. Discussed a change to Haldol and potential cross titration to Latuda, Vraylar (Hx ) or another Geodon trial. Written materials given to both pt and mother ([employer] literature). They will review. Pt reports experiencing less lability overall. Mother reports less disturbing conversations, notes improvement as well, however, was worried when pt expressed some of her concerns to mother that she had experienced a dream of the same concerns. Medication Compliance: Yes Side effects from medications: Yes (weight gain ~13lbs.) Attending Groups: Intermittent Review of Systems Acute medical concerns: No Medical Review of Systems: unchanged Review of Systems Psychiatric: Reports anxiety, Reports change in appetite (eating during our meeting), Reports auditory hallucinations, Reports anhedonia and Reports paranoia (decreasing) Mental Status Exam Mental Status Exam Patient Appearance: Appropriate Patient Orientation: Person, Place, Time and Situation Level of Consciousness: Alert Patient Behavior: Appropriate, Talkative and Cooperative Mood Description: Appropriate Affect Description: Appropriate Patient Cognition Impaired: No Ability to Follow Directions: Good Speech Pattern: Spontaneous Speech Memory Description: Intact Hallucinations: Auditory (decreasing-intermittent) Delusions: Not Present Perceptual Disturbances: Derealization (PTSD sx) Thought Process: Intact and Goal Oriented Thought Content: positive for Intact and positive for Goal Oriented Depressive Symptoms: Increased Anxiety, Significant Weight Gain and Low Self Esteem Judgement: Fair Diagnostics Vital Signs (24Hr): Vital Signs - 24 hr 04/02/21 18:00 Temperature 99.1 F Pulse Rate 94 Blood Pressure 101/63 Body Mass Index 24.3 Labs Results: 03/20/21 08:03 03/19/21 07:48 Imaging Radiology Impressions: ITS Impressions Brain MRI 03/27/21 14:04 IMPRESSION: Normal limited MRI of the brain with motion artifacts. Medications Medications Current Medications Generic Name Dose Route Start Last Admin Trade Name Freq PRN Reason Stop Dose Admin Acetaminophen 650 mg 02/27/21 20:08 03/30/21 22:13 Acetaminophen 325 Mg Tablet PO 650 mg Q6H PRN Administration Headache/Pain Mild Scale (1-3) Al Hydroxide/Mg Hydroxide 30 ml 02/27/21 20:08 Magnesium Hydrox/Alum Hydrox 30 Ml Oral.Susp PO Q6H PRN Heartburn/Nausea Albuterol Sulfate 2 puff 03/02/21 21:23 03/15/21 09:51 Albuterol Sulfate 90 Mcg 8 Gm Inhaler INHALE 2 puff RQ4H PRN Administration Shortness of Breath Benztropine Mesylate 1 mg 04/01/21 15:35 Benztropine Mesylate 1 Mg Tablet PO BID PRN EPS Clonazepam 0.5 mg 03/02/21 21:41 04/02/21 21:00 Clonazepam 0.5 Mg Tablet PO 0.5 mg DAILY PRN Administration SEVERE anxiety/panic Diphenhydramine HCl 50 mg 03/19/21 13:32 Diphenhydramine Hcl 25 Mg Tablet PO Q8H PRN EPS, Dystonia Haloperidol 5 mg 04/03/21 21:00 Haloperidol 5 Mg Tablet PO BID DUSTIN Haloperidol 5 mg 04/03/21 11:20 Haloperidol 5 Mg Tablet PO BID PRN psychosis, agitation Lamotrigine 25 mg 03/26/21 21:00 04/02/21 20:13 Lamotrigine 25 Mg Tablet PO 25 mg BEDTIME DUSTIN Administration Lorazepam 1 mg 03/19/21 13:33 03/22/21 19:03 Lorazepam 1 Mg Tablet PO 1 mg Q6H PRN Administration anxiety, dystonia Magnesium Hydroxide 30 ml 02/27/21 20:08 04/02/21 20:16 Milk Of Magnesia 30 Ml Oral.Susp PO 30 ml DAILY PRN Administration Constipation Melatonin 6 mg 02/27/21 20:09 04/02/21 20:16 Melatonin 3 Mg Tablet PO 6 mg BEDTIME PRN Administration Insomnia Multi-Ingred Cream/Lotion/Oil/Oint 1 appl 03/03/21 19:30 Mineral Oil/Petrolatum,White 106 Gm Tube TOPICAL TID PRN dry skin Nicotine Polacrilex 4 mg 02/27/21 20:08 04/02/21 19:31 Nicotine Polacrilex 2 Mg Gum BUCCAL 4 mg Q2H PRN Administration Nicotine Cravings Patient Own Med 1 each 03/04/21 09:00 04/03/21 09:17 Compound W Strips PO Not Given DAILY DUSTIN Patient Own 1 each 03/13/21 10:30 08/11/21 08:03 Medication ( PO 1 each Norgestimat/Eth Est DAILY DUSTIN Administration 0.25/0.035 Tablet) Topiramate 25 mg 04/02/21 09:00 04/03/21 08:03 Topiramate 25 Mg Tablet PO 25 mg DAILY DUSTIN Administration Trazodone HCl 150 mg 02/27/21 20:09 04/02/21 20:16 Trazodone Hcl 50 Mg Tablet PO 150 mg BEDTIME PRN Administration Insomnia Allergies Allergies Allergy/AdvReac Type Severity Reaction Status Date / Time risperidone [From Risperdal] Allergy Mild gain weight Verified 02/24/21 01:27 aripiprazole [Abilify] Allergy Unknown gain weight Verified 02/24/21 01:27 paliperidone AdvReac dystonia Verified 02/24/21 01:27 Assessment & Plan Assessment & Plan (1) Schizoaffective disorder, bipolar type: Status: Acute Code(s): F25.0 - Schizoaffective disorder, bipolar type Assessment and Plan: Continue Lamictal 25 mg hs Benztropine prn Topiramate 25 mg daily Will discuss transition to [facility], [facility] or return to [facility] for future use, less weight gain and improved compliance. Discontinue Zydis Haldol 5 mg bid and 5 mg bid prn Evaluation of headaches- neuro eval by Dr. Prem joyner. MRI reviewed and wnl. Mouth checks-pt reports she has not been taking meds Monitor for initiation of menses. HCG negative Education, alliance building. Greater than 50% of the session was spent on counseling and/or coordination of care Patient educated on: medication risk/benefits Guardian/Caregiver educated on: medication risk/benefits Informed Consent: further education needed Reason for contiued inpatient stay Substantial Risk for: harm to self, inability to function and rapid decompensation
[2021-04-03 18:00] VITALS: BP 112/64; PULSE 80; RESP 16; TEMP 36.7; O2SAT 98
[2021-04-03] MEDS: Nicotine Polacrilex 2 MG GUM 4 MG BUCCAL (20:01)
[2021-04-03] MEDS: traZODone HCL 50 MG TABLET 150 MG PO (20:32)
[2021-04-03] MEDS: lamoTRIgine 25 MG TABLET PO (20:32)
[2021-04-03] MEDS: clonazePAM 0.5 MG TABLET PO (20:32)
[2021-04-03] MEDS: HaloperidoL 5 MG TABLET PO (20:33)
[2021-04-03] MEDS: Melatonin 3 MG TABLET 6 MG PO (20:33)
[2021-04-04 06:00] VITALS: BP 109/60; PULSE 64; RESP 14; TEMP 37.2; O2SAT 98
[2021-04-04] MEDS: HaloperidoL 5 MG TABLET PO (09:49)
[2021-04-04] MEDS: Topiramate 25 MG TABLET PO (09:49)
[2021-04-04] MEDS: Nicotine Polacrilex 2 MG GUM 4 MG BUCCAL ×3 (13:34→20:22)
[2021-04-04] MEDS: Benztropine Mesylate 1 MG TABLET PO (16:23)
[2021-04-04] MEDS: clonazePAM 0.5 MG TABLET PO (16:25)
--- NOTE | 2021-04-04 16:55 | PC.NURSE ---
PT reports new symptom of tongue feeling funny and rolling up in my mouth . No other symptoms at this time. Tongue does not appear to be swollen, normal speech. Dr. Rhoades notified. Cogentin 1mg given.
--- NOTE | 2021-04-04 17:08 | P.PNPSI_ITS ---
Subjective Subjective Date of Service: 04/04/21 Reason For Visit: Psychosis Subjective Notes: Conditional Voluntary Healthcare Proxy: No Guardianship: Yes Medical Problems Affecting Mental Status: No Interim History: Reports feeling well. First doses of Haldol tolerated without event. Discussed discharge planning. Pt hoping to leave next week. At the end of the day notified by team that pt felt her tongue was feeling funny, suddenly as if its rolling up in her mouth- described wierd movements . Team reported pt was able to speak clearly and her tongue has no edema or curling. No changes on exam-encouraged to utilize prn Benztropine. Medication Compliance: Yes Side effects from medications: Yes (?) Attending Groups: Intermittent Review of Systems Acute medical concerns: No Medical Review of Systems: unchanged Review of Systems Psychiatric: Reports no additional psychiatric complaints Mental Status Exam Mental Status Exam Patient Appearance: Appropriate Patient Orientation: Person, Place, Time and Situation Level of Consciousness: Alert Patient Behavior: Appropriate, Talkative and Good Eye Contact Mood Description: Calm Affect Description: Calm Patient Cognition Impaired: No Ability to Follow Directions: Good Speech Pattern: Spontaneous Speech Memory Description: Intact Hallucinations: Auditory (minimal but present) Delusions: Not Present Perceptual Disturbances: Depersonalization (at times) Thought Process: Goal Oriented Thought Content: positive for Loose Associations Depressive Symptoms: Low Self Esteem Judgement: Fair Diagnostics Vital Signs (24Hr): Vital Signs - 24 hr 04/03/21 18:00 04/04/21 06:00 Temperature 98.1 F 98.9 F Pulse Rate 80 64 Respiratory Rate 16 14 Blood Pressure 112/64 109/60 Pulse Oximetry 98 98 Body Mass Index 24.3 Labs Results: 03/20/21 08:03 03/19/21 07:48 Imaging Radiology Impressions: ITS Impressions Brain MRI 03/27/21 14:04 IMPRESSION: Normal limited MRI of the brain with motion artifacts. Medications Medications Current Medications Generic Name Dose Route Start Last Admin Trade Name Freq PRN Reason Stop Dose Admin Acetaminophen 650 mg 02/27/21 20:08 03/30/21 22:13 Acetaminophen 325 Mg Tablet PO 650 mg Q6H PRN Administration Headache/Pain Mild Scale (1-3) Al Hydroxide/Mg Hydroxide 30 ml 02/27/21 20:08 Magnesium Hydrox/Alum Hydrox 30 Ml Oral.Susp PO Q6H PRN Heartburn/Nausea Albuterol Sulfate 2 puff 03/02/21 21:23 03/15/21 09:51 Albuterol Sulfate 90 Mcg 8 Gm Inhaler INHALE 2 puff RQ4H PRN Administration Shortness of Breath Benztropine Mesylate 1 mg 04/01/21 15:35 04/04/21 16:23 Benztropine Mesylate 1 Mg Tablet PO 1 mg BID PRN Administration EPS Clonazepam 0.5 mg 03/02/21 21:41 04/04/21 16:25 Clonazepam 0.5 Mg Tablet PO 0.5 mg DAILY PRN Administration SEVERE anxiety/panic Diphenhydramine HCl 50 mg 03/19/21 13:32 Diphenhydramine Hcl 25 Mg Tablet PO Q8H PRN EPS, Dystonia Haloperidol 5 mg 04/03/21 11:20 Haloperidol 5 Mg Tablet PO BID PRN psychosis, agitation Haloperidol 5 mg 04/05/21 09:00 Haloperidol 5 Mg Tablet PO DAILY DUSTIN Haloperidol 2 mg 04/04/21 21:00 Haloperidol 1 Mg Tablet PO BEDTIME DUSTIN Lamotrigine 25 mg 03/26/21 21:00 04/03/21 20:32 Lamotrigine 25 Mg Tablet PO 25 mg BEDTIME DUSTIN Administration Lorazepam 1 mg 03/19/21 13:33 03/22/21 19:03 Lorazepam 1 Mg Tablet PO 1 mg Q6H PRN Administration anxiety, dystonia Magnesium Hydroxide 30 ml 02/27/21 20:08 04/02/21 20:16 Milk Of Magnesia 30 Ml Oral.Susp PO 30 ml DAILY PRN Administration Constipation Melatonin 6 mg 02/27/21 20:09 04/03/21 20:33 Melatonin 3 Mg Tablet PO 6 mg BEDTIME PRN Administration Insomnia Multi-Ingred Cream/Lotion/Oil/Oint 1 appl 03/03/21 19:30 Mineral Oil/Petrolatum,White 106 Gm Tube TOPICAL TID PRN dry skin Nicotine Polacrilex 4 mg 02/27/21 20:08 04/04/21 16:53 Nicotine Polacrilex 2 Mg Gum BUCCAL 4 mg Q2H PRN Administration Nicotine Cravings Patient Own Med 1 each 03/04/21 09:00 04/04/21 09:51 Compound W Strips PO 1 each DAILY DUSTIN Administration Patient Own 1 each 03/13/21 10:30 04/04/21 10:52 Medication ( PO 1 each Norgestimat/Eth Est DAILY DUSTIN Administration 0.25/0.035 Tablet) Topiramate 25 mg 04/02/21 09:00 04/04/21 09:49 Topiramate 25 Mg Tablet PO 25 mg DAILY DUSTIN Administration Trazodone HCl 150 mg 02/27/21 20:09 04/03/21 20:32 Trazodone Hcl 50 Mg Tablet PO 150 mg BEDTIME PRN Administration Insomnia Allergies Allergies Allergy/AdvReac Type Severity Reaction Status Date / Time risperidone [From Risperdal] Allergy Mild gain weight Verified 02/24/21 01:27 aripiprazole [Abilify] Allergy Unknown gain weight Verified 02/24/21 01:27 paliperidone AdvReac dystonia Verified 02/24/21 01:27 Assessment & Plan Assessment & Plan (1) Schizoaffective disorder, bipolar type: Status: Acute Code(s): F25.0 - Schizoaffective disorder, bipolar type Assessment and Plan: Continue Lamictal 25 mg hs Benztropine prn Continue Topiramate 25 mg daily Will discuss transition to [facility] or return to [facility] for future use, less weight gain and improved compliance. Discontinue Zydis Haldol 5 mg bid and 5 mg bid prn Evaluation of headaches- neuro eval by Dr. Prem joyner. MRI reviewed and wnl. Mouth checks-pt reports she has not been taking meds Monitor for initiation of menses. HCG negative Education, alliance building. Greater than 50% of the session was spent on counseling and/or coordination of care Reason for contiued inpatient stay Substantial Risk for: harm to self, harm to others, inability to function and rapid decompensation
[2021-04-04 18:00] VITALS: BP 110/58; PULSE 82; RESP 16; TEMP 37.1; O2SAT 98
[2021-04-04] MEDS: lamoTRIgine 25 MG TABLET PO (20:17)
[2021-04-04] MEDS: HaloperidoL 1 MG TABLET 2 MG PO (20:17)
[2021-04-04] MEDS: Melatonin 3 MG TABLET 6 MG PO (20:22)
[2021-04-04] MEDS: traZODone HCL 50 MG TABLET 150 MG PO (20:22)
[2021-04-05] MEDS: Topiramate 25 MG TABLET PO (09:59)
[2021-04-05] MEDS: HaloperidoL 5 MG TABLET PO (10:00)
[2021-04-05] MEDS: Benztropine Mesylate 1 MG TABLET PO (10:09)
[2021-04-05] MEDS: Nicotine Polacrilex 2 MG GUM 4 MG BUCCAL ×2 (14:28→20:21)
--- NOTE | 2021-04-05 17:21 | HO.PSYCHPN ---
Subjective Subjective Date of Service: 04/06/21 Reason For Visit: Psychosis Subjective Notes: Conditional Voluntary Healthcare Proxy: No Guardianship: No Medical Problems Affecting Mental Status: No Interim History: Pt reports feeling well, denies SE of meds (no reports of her tongue feeling strange thus far-Haldol dosing decreased to 7.5 mg daily). Encouraged pt to begin to return to her interests-she has a strong interest is style, fashion and design-provided some fashion magazines for her to stimulate interests and assist her in transition back to her life and priorities. She agreed to look at these. Medication Compliance: Yes Side effects from medications: No Attending Groups: Yes Review of Systems Acute medical concerns: No Medical Review of Systems: unchanged Review of Systems Reports behavioral changes Psychiatric: Reports anxiety, Reports behavioral changes, Reports change in appetite, Reports depression, Reports difficulty concentrating, Reports auditory hallucinations and Reports paranoia Mental Status Exam Mental Status Exam Patient Appearance: Appropriate Patient Orientation: Person, Place, Time and Situation Level of Consciousness: Alert Patient Behavior: Appropriate, Talkative and Cooperative Mood Description: Calm and Relaxed Affect Description: Calm Patient Cognition Impaired: No Ability to Follow Directions: Good Speech Pattern: Spontaneous Speech and Soft-Spoken Memory Description: Intact Hallucinations: Auditory (decreased) Delusions: Not Present Thought Process: Distracted Thought Content: positive for [place] and positive for Circumstantial Depressive Symptoms: Increased Anxiety and Low Self Esteem Judgement: Fair Diagnostics Vital Signs (24Hr): Vital Signs - 24 hr 04/04/21 18:00 Temperature 98.7 F Pulse Rate 82 Respiratory Rate 16 Blood Pressure 110/58 L Pulse Oximetry 98 Body Mass Index 24.3 Labs Results: 03/20/21 08:03 03/19/21 07:48 Imaging Radiology Impressions: ITS Impressions Brain MRI 03/27/21 14:04 IMPRESSION: Normal limited MRI of the brain with motion artifacts. Medications Medications Current Medications Generic Name Dose Route Start Last Admin Trade Name Freq PRN Reason Stop Dose Admin Acetaminophen 650 mg 02/27/21 20:08 03/30/21 22:13 Acetaminophen 325 Mg Tablet PO 650 mg Q6H PRN Administration Headache/Pain Mild Scale (1-3) Al Hydroxide/Mg Hydroxide 30 ml 02/27/21 20:08 Magnesium Hydrox/Alum Hydrox 30 Ml Oral.Susp PO Q6H PRN Heartburn/Nausea Albuterol Sulfate 2 puff 03/02/21 21:23 03/15/21 09:51 Albuterol Sulfate 90 Mcg 8 Gm Inhaler INHALE 2 puff RQ4H PRN Administration Shortness of Breath Benztropine Mesylate 1 mg 04/01/21 15:35 04/05/21 10:09 Benztropine Mesylate 1 Mg Tablet PO 1 mg BID PRN Administration EPS Clonazepam 0.5 mg 03/02/21 21:41 04/04/21 16:25 Clonazepam 0.5 Mg Tablet PO 0.5 mg DAILY PRN Administration SEVERE anxiety/panic Diphenhydramine HCl 50 mg 03/19/21 13:32 Diphenhydramine Hcl 25 Mg Tablet PO Q8H PRN EPS, Dystonia Haloperidol 5 mg 04/03/21 11:20 Haloperidol 5 Mg Tablet PO BID PRN psychosis, agitation Haloperidol 5 mg 04/05/21 09:00 04/05/21 10:00 Haloperidol 5 Mg Tablet PO 5 mg DAILY DUSTIN Administration Haloperidol 2 mg 04/04/21 21:00 04/04/21 20:17 Haloperidol 1 Mg Tablet PO 2 mg BEDTIME DUSTIN Administration Lamotrigine 25 mg 03/26/21 21:00 04/04/21 20:17 Lamotrigine 25 Mg Tablet PO 25 mg BEDTIME DUSTIN Administration Lorazepam 1 mg 03/19/21 13:33 03/22/21 19:03 Lorazepam 1 Mg Tablet PO 1 mg Q6H PRN Administration anxiety, dystonia Magnesium Hydroxide 30 ml 02/27/21 20:08 04/02/21 20:16 Milk Of Magnesia 30 Ml Oral.Susp PO 30 ml DAILY PRN Administration Constipation Melatonin 6 mg 02/27/21 20:09 04/04/21 20:22 Melatonin 3 Mg Tablet PO 6 mg BEDTIME PRN Administration Insomnia Multi-Ingred Cream/Lotion/Oil/Oint 1 appl 03/03/21 19:30 Mineral Oil/Petrolatum,White 106 Gm Tube TOPICAL TID PRN dry skin Nicotine Polacrilex 4 mg 02/27/21 20:08 04/05/21 14:28 Nicotine Polacrilex 2 Mg Gum BUCCAL 4 mg Q2H PRN Administration Nicotine Cravings Patient Own Med 1 each 03/04/21 09:00 04/05/21 14:20 Compound W Strips PO Not Given DAILY DUSTIN Patient Own 1 each 03/13/21 10:30 04/05/21 10:08 Medication ( PO 1 each Norgestimat/Eth Est DAILY DUSTIN Administration 0.25/0.035 Tablet) Topiramate 25 mg 04/02/21 09:00 04/05/21 09:59 Topiramate 25 Mg Tablet PO 25 mg DAILY DUSTIN Administration Trazodone HCl 150 mg 02/27/21 20:09 04/04/21 20:22 Trazodone Hcl 50 Mg Tablet PO 150 mg BEDTIME PRN Administration Insomnia Allergies Allergies Allergy/AdvReac Type Severity Reaction Status Date / Time risperidone [From Risperdal] Allergy Mild gain weight Verified 02/24/21 01:27 aripiprazole [Abilify] Allergy Unknown gain weight Verified 02/24/21 01:27 paliperidone AdvReac dystonia Verified 02/24/21 01:27 Assessment & Plan Assessment & Plan (1) Schizoaffective disorder, bipolar type: Status: Acute Code(s): F25.0 - Schizoaffective disorder, bipolar type Assessment and Plan: Continue Lamictal 25 mg hs Benztropine prn Continue Topiramate 25 mg daily Will discuss transition to [facility], [facility] or return to [facility] for future use, less weight gain and improved compliance. Discontinue Zydis Haldol 7 mg daily, divided 5 mg and 2 mg with prn. Evaluation of headaches- neuro eval by Dr. Prem joyner. MRI reviewed and wnl. Mouth checks-pt reports she has not been taking meds Monitor for initiation of menses. HCG negative Education, alliance building. Greater than 50% of the session was spent on counseling and/or coordination of care Patient educated on: medication risk/benefits and therapeutic strategies Informed Consent: understands and further education needed Reason for contiued inpatient stay Substantial Risk for: harm to self, inability to function and rapid decompensation
[2021-04-05 18:00] VITALS: BP 142/66; PULSE 73; TEMP 37
[2021-04-05] MEDS: lamoTRIgine 25 MG TABLET PO (20:19)
[2021-04-05] MEDS: Melatonin 3 MG TABLET 6 MG PO (20:19)
[2021-04-05] MEDS: HaloperidoL 1 MG TABLET 2 MG PO (20:20)
[2021-04-05] MEDS: traZODone HCL 50 MG TABLET 150 MG PO (20:27)
[2021-04-06 06:00] VITALS: BP 105/68; PULSE 78; RESP 16; TEMP 36.3; O2SAT 98
[2021-04-06] MEDS: HaloperidoL 5 MG TABLET PO (09:48)
[2021-04-06] MEDS: Topiramate 25 MG TABLET PO (09:48)
[2021-04-06] MEDS: Benztropine Mesylate 1 MG TABLET PO (09:52)
[2021-04-06] MEDS: Nicotine Polacrilex 2 MG GUM 4 MG BUCCAL ×3 (10:38→20:32)
--- NOTE | 2021-04-06 12:09 | P.PNPSI_ITS ---
Subjective Subjective Date of Service: 04/06/21 Reason For Visit: Psychosis Subjective Notes: Conditional Voluntary Interim History: Patient was seen in rounds today. She has been stable, feeling somewhat ?bored?. This is she is tolerating Zyprexa but having an increase in appetite. No complaints of auditory hallucinations. No side effects. She has been compliant with treatment. No changes were made Review of Systems Review of Systems Yes all other systems are reviewed and are negative Mental Status Exam Mental Status Exam Narrative: She is alert, oriented and pleasant. Normal speech. Good eye contact. Appropriate affect and it is varied. No signs of psychosis. No suicidal or homicidal ideations. Cognitively intact. Judgment is intact. Diagnostics Vital Signs (24Hr): Vital Signs - 24 hr 04/05/21 18:00 04/06/21 06:00 Temperature 98.6 F 97.4 F Pulse Rate 73 78 Respiratory Rate 16 Blood Pressure 142/66 H 105/68 Pulse Oximetry 98 Body Mass Index 24.3 Labs Results: 03/20/21 08:03 03/19/21 07:48 Imaging Radiology Impressions: ITS Impressions Brain MRI 03/27/21 14:04 IMPRESSION: Normal limited MRI of the brain with motion artifacts. Medications Medications Current Medications Generic Name Dose Route Start Last Admin Trade Name Freq PRN Reason Stop Dose Admin Acetaminophen 650 mg 02/27/21 20:08 03/30/21 22:13 Acetaminophen 325 Mg Tablet PO 650 mg Q6H PRN Administration Headache/Pain Mild Scale (1-3) Al Hydroxide/Mg Hydroxide 30 ml 02/27/21 20:08 Magnesium Hydrox/Alum Hydrox 30 Ml Oral.Susp PO Q6H PRN Heartburn/Nausea Albuterol Sulfate 2 puff 03/02/21 21:23 03/15/21 09:51 Albuterol Sulfate 90 Mcg 8 Gm Inhaler INHALE 2 puff RQ4H PRN Administration Shortness of Breath Benztropine Mesylate 1 mg 04/01/21 15:35 04/06/21 09:52 Benztropine Mesylate 1 Mg Tablet PO 1 mg BID PRN Administration EPS Clonazepam 0.5 mg 03/02/21 21:41 04/04/21 16:25 Clonazepam 0.5 Mg Tablet PO 0.5 mg DAILY PRN Administration SEVERE anxiety/panic Diphenhydramine HCl 50 mg 03/19/21 13:32 Diphenhydramine Hcl 25 Mg Tablet PO Q8H PRN EPS, Dystonia Haloperidol 5 mg 04/03/21 11:20 Haloperidol 5 Mg Tablet PO BID PRN psychosis, agitation Haloperidol 5 mg 04/05/21 09:00 04/06/21 09:48 Haloperidol 5 Mg Tablet PO 5 mg DAILY DUSTIN Administration Haloperidol 2 mg 04/04/21 21:00 04/05/21 20:20 Haloperidol 1 Mg Tablet PO 2 mg BEDTIME DUSTIN Administration Lamotrigine 25 mg 03/26/21 21:00 04/05/21 20:19 Lamotrigine 25 Mg Tablet PO 25 mg BEDTIME DUSTIN Administration Lorazepam 1 mg 03/19/21 13:33 03/22/21 19:03 Lorazepam 1 Mg Tablet PO 1 mg Q6H PRN Administration anxiety, dystonia Magnesium Hydroxide 30 ml 02/27/21 20:08 04/02/21 20:16 Milk Of Magnesia 30 Ml Oral.Susp PO 30 ml DAILY PRN Administration Constipation Melatonin 6 mg 02/27/21 20:09 04/05/21 20:19 Melatonin 3 Mg Tablet PO 6 mg BEDTIME PRN Administration Insomnia Multi-Ingred Cream/Lotion/Oil/Oint 1 appl 03/03/21 19:30 Mineral Oil/Petrolatum,White 106 Gm Tube TOPICAL TID PRN dry skin Nicotine Polacrilex 4 mg 02/27/21 20:08 04/06/21 10:38 Nicotine Polacrilex 2 Mg Gum BUCCAL 4 mg Q2H PRN Administration Nicotine Cravings Patient Own Med 1 each 03/04/21 09:00 04/06/21 10:06 Compound W Strips PO Not Given DAILY DUSTIN Patient Own 1 each 03/13/21 10:30 04/06/21 09:42 Medication ( PO 1 each Norgestimat/Eth Est DAILY DUSTIN Administration 0.25/0.035 Tablet) Topiramate 25 mg 04/02/21 09:00 04/06/21 09:48 Topiramate 25 Mg Tablet PO 25 mg DAILY DUSTIN Administration Trazodone HCl 150 mg 02/27/21 20:09 04/05/21 20:27 Trazodone Hcl 50 Mg Tablet PO 150 mg BEDTIME PRN Administration Insomnia Allergies Allergies Allergy/AdvReac Type Severity Reaction Status Date / Time risperidone [From Risperdal] Allergy Mild gain weight Verified 02/24/21 01:27 aripiprazole [Abilify] Allergy Unknown gain weight Verified 02/24/21 01:27 paliperidone AdvReac dystonia Verified 02/24/21 01:27 Assessment & Plan Assessment & Plan (1) Schizoaffective disorder, bipolar type: Status: Acute Code(s): F25.0 - Schizoaffective disorder, bipolar type Assessment and Plan: Continue Lamictal 25 mg hs Benztropine prn Continue Topiramate 25 mg daily Will discuss transition to [facility] or return to [facility] for future use, less weight gain and improved compliance. Discontinue Zydis Haldol 7 mg daily, divided 5 mg and 2 mg with prn. Evaluation of headaches- neuro eval by Dr. Amaro appreciated. MRI reviewed and wnl. Mouth checks-pt reports she has not been taking meds Monitor for initiation of menses. HCG negative Education, alliance building. 04/06/21: Continue current regimen and plans Greater than 50% of the session was spent on counseling and/or coordination of care Reason for contiued inpatient stay Substantial Risk for: other
[2021-04-06] MEDS: LORazepam 1 MG TABLET PO (13:19)
[2021-04-06] MEDS: Melatonin 3 MG TABLET 6 MG PO (20:32)
[2021-04-06] MEDS: HaloperidoL 1 MG TABLET 2 MG PO (20:32)
[2021-04-06] MEDS: traZODone HCL 50 MG TABLET 150 MG PO (20:33)
[2021-04-06] MEDS: lamoTRIgine 25 MG TABLET PO (20:33)
[2021-04-06 21:07] VITALS: BP 133/63; PULSE 101; RESP 18; TEMP 36.4; O2SAT 97
[2021-04-07] MEDS: HaloperidoL 5 MG TABLET PO (09:08)
[2021-04-07] MEDS: Topiramate 25 MG TABLET PO (09:08)
[2021-04-07] MEDS: Benztropine Mesylate 1 MG TABLET PO (09:08)
--- NOTE | 2021-04-07 10:04 | HO.PSYCHPN ---
Subjective Subjective Date of Service: 04/07/21 Reason For Visit: Psychosis Subjective Notes: Conditional Voluntary Interim History: patient was seen in rounds today. She continues to be isolative and in bed a lot. She is engaged very superficially. Generally is feeling better . Having poor insight into her problems. No complaints or side effects. No changes were made. Eating and sleeping adequately Medication Compliance: Yes Side effects from medications: No Mental Status Exam Mental Status Exam Narrative: in today's visit she is alert, oriented and pleasant. Normal speech. Moderate eye contact. Affect is appropriate, constricted and subdued. No SI. Cognitively intact. Judgment is intact Diagnostics Vital Signs (24Hr): Vital Signs - 24 hr 04/06/21 21:07 Temperature 97.5 F Pulse Rate 101 H Respiratory Rate 18 Blood Pressure 133/63 Pulse Oximetry 97 Body Mass Index 24.3 Labs Results: 03/20/21 08:03 03/19/21 07:48 Imaging Radiology Impressions: ITS Impressions Brain MRI 03/27/21 14:04 IMPRESSION: Normal limited MRI of the brain with motion artifacts. Medications Medications Current Medications Generic Name Dose Route Start Last Admin Trade Name Freq PRN Reason Stop Dose Admin Acetaminophen 650 mg 02/27/21 20:08 03/30/21 22:13 Acetaminophen 325 Mg Tablet PO 650 mg Q6H PRN Administration Headache/Pain Mild Scale (1-3) Al Hydroxide/Mg Hydroxide 30 ml 02/27/21 20:08 Magnesium Hydrox/Alum Hydrox 30 Ml Oral.Susp PO Q6H PRN Heartburn/Nausea Albuterol Sulfate 2 puff 03/02/21 21:23 03/15/21 09:51 Albuterol Sulfate 90 Mcg 8 Gm Inhaler INHALE 2 puff RQ4H PRN Administration Shortness of Breath Benztropine Mesylate 1 mg 04/01/21 15:35 04/07/21 09:08 Benztropine Mesylate 1 Mg Tablet PO 1 mg BID PRN Administration EPS Clonazepam 0.5 mg 03/02/21 21:41 04/04/21 16:25 Clonazepam 0.5 Mg Tablet PO 0.5 mg DAILY PRN Administration SEVERE anxiety/panic Diphenhydramine HCl 50 mg 03/19/21 13:32 Diphenhydramine Hcl 25 Mg Tablet PO Q8H PRN EPS, Dystonia Haloperidol 5 mg 04/03/21 11:20 Haloperidol 5 Mg Tablet PO BID PRN psychosis, agitation Haloperidol 5 mg 04/05/21 09:00 04/07/21 09:08 Haloperidol 5 Mg Tablet PO 5 mg DAILY DUSTIN Administration Haloperidol 2 mg 04/04/21 21:00 04/06/21 20:32 Haloperidol 1 Mg Tablet PO 2 mg BEDTIME DUSTIN Administration Lamotrigine 25 mg 03/26/21 21:00 04/06/21 20:33 Lamotrigine 25 Mg Tablet PO 25 mg BEDTIME DUSTIN Administration Lorazepam 1 mg 03/19/21 13:33 04/06/21 13:19 Lorazepam 1 Mg Tablet PO 1 mg Q6H PRN Administration anxiety, dystonia Magnesium Hydroxide 30 ml 02/27/21 20:08 04/02/21 20:16 Milk Of Magnesia 30 Ml Oral.Susp PO 30 ml DAILY PRN Administration Constipation Melatonin 6 mg 02/27/21 20:09 04/06/21 20:32 Melatonin 3 Mg Tablet PO 6 mg BEDTIME PRN Administration Insomnia Multi-Ingred Cream/Lotion/Oil/Oint 1 appl 03/03/21 19:30 Mineral Oil/Petrolatum,White 106 Gm Tube TOPICAL TID PRN dry skin Nicotine Polacrilex 4 mg 02/27/21 20:08 04/06/21 20:32 Nicotine Polacrilex 2 Mg Gum BUCCAL 4 mg Q2H PRN Administration Nicotine Cravings Patient Own Med 1 each 03/04/21 09:00 04/07/21 09:10 Compound W Strips PO Not Given DAILY DUSTIN Patient Own 1 each 03/13/21 10:30 04/07/21 09:09 Medication ( PO 1 each Norgestimat/Eth Est DAILY DUSTIN Administration 0.25/0.035 Tablet) Topiramate 25 mg 04/02/21 09:00 04/07/21 09:08 Topiramate 25 Mg Tablet PO 25 mg DAILY DUSTIN Administration Trazodone HCl 150 mg 02/27/21 20:09 04/06/21 20:33 Trazodone Hcl 50 Mg Tablet PO 150 mg BEDTIME PRN Administration Insomnia Allergies Allergies Allergy/AdvReac Type Severity Reaction Status Date / Time risperidone [From Risperdal] Allergy Mild gain weight Verified 02/24/21 01:27 aripiprazole [Abilify] Allergy Unknown gain weight Verified 02/24/21 01:27 paliperidone AdvReac dystonia Verified 02/24/21 01:27 Assessment & Plan Assessment & Plan (1) Schizoaffective disorder, bipolar type: Status: Acute Code(s): F25.0 - Schizoaffective disorder, bipolar type Assessment and Plan: Continue Lamictal 25 mg hs Benztropine prn Continue Topiramate 25 mg daily Will discuss transition to [facility] or return to [facility] for future use, less weight gain and improved compliance. Discontinue Zydis Haldol 7 mg daily, divided 5 mg and 2 mg with prn. Evaluation of headaches- neuro eval by Dr. Amaro appreciated. MRI reviewed and wnl. Mouth checks-pt reports she has not been taking meds Monitor for initiation of menses. HCG negative Education, alliance building. 04/06/21: Continue current regimen and plans Greater than 50% of the session was spent on counseling and/or coordination of care Reason for contiued inpatient stay Substantial Risk for: other
[2021-04-07] MEDS: Nicotine Polacrilex 2 MG GUM 4 MG BUCCAL ×3 (15:58→20:21)
[2021-04-07 18:00] VITALS: BP 131/67; PULSE 79; TEMP 36.5
[2021-04-07] MEDS: Melatonin 3 MG TABLET 6 MG PO (20:21)
[2021-04-07] MEDS: HaloperidoL 1 MG TABLET 2 MG PO (20:21)
[2021-04-07] MEDS: lamoTRIgine 25 MG TABLET PO (20:21)
[2021-04-07] MEDS: traZODone HCL 50 MG TABLET 150 MG PO (20:22)
[2021-04-08] MEDS: Topiramate 25 MG TABLET PO (09:48)
[2021-04-08] MEDS: HaloperidoL 5 MG TABLET PO (09:48)
[2021-04-08] MEDS: Benztropine Mesylate 1 MG TABLET PO (09:52)
[2021-04-08] MEDS: Nicotine Polacrilex 2 MG GUM 4 MG BUCCAL ×3 (11:22→20:08)
--- NOTE | 2021-04-08 13:18 | HO.PSYCHPN ---
Subjective Subjective Date of Service: 04/08/21 Reason For Visit: Psychosis Subjective Notes: Conditional Voluntary Healthcare Proxy: No Guardianship: Yes Interim History: Desi reports feeling physically well. She reports medications are effective, without SE however, does need to take Benztropine as Haldol 7 mg daily did have a SE last week where my tongue was wierd for a few minutes. Team reports the weekend was with symptoms-pt appearing to be responding to internal stimuli, having a blank stare at times and appearing to be isolative. She denies those reports, responding, look, at 20 you don't want to be on a unit with all of these people who are addicted and people who have been in [facility]-that is scarey for me, so I stayed in my room a lot and I did work with the [employer] magazines (we had presented magazines to pt on 04/05 and asked her to give her opinion regarding her favorite trends as this used to be a significant interest for her as an exercise in concentration, focus). Pt reports sleep and appetite are intact. She asks to set a discharge date. Concrete Grinder Operator encouraged pt to begin to discuss with her mom and we can all discuss this as well. She would like to try to discharge this week. Reviewed transtion to another medication and encouraged pt to utilize Haldol as a base and gather some time feeling well, then cross taper in out patient. She will consider. Pt denies SI, perceptual alterations and fears, worries, concerns. I just want to get back to my life. Medication Compliance: Yes Side effects from medications: No Attending Groups: No Review of Systems Acute medical concerns: No Medical Review of Systems: unchanged Review of Systems Constitutional: Reports increased appetite and Reports weight gain Eyes: Reports no additional eye complaints Reports system reviewed and no additional complaints, except as documented Cardiovascular: Reports no additional cardiovascular complaints Respiratory: Reports no additional respiratory complaints Gastrointestinal: Reports no additional gastrointestinal complaints Genitourinary: Reports no additional female genitourinary complaints Musculoskeletal: Reports no additional musculoskeletal complaints Reports system reviewed and no additional complaints, except as documented Psychiatric: Reports anxiety and Reports anhedonia Endocrine: Reports no additional endocrine complaints Hematologic/Lymphatic: Reports no additional hematologic/lymphatic complaints Allergic/Immunologic: Reports no additional allergic/immunologic complaints Mental Status Exam Mental Status Exam Patient Appearance: Appropriate Patient Orientation: Person, Place, Time and Situation Level of Consciousness: Awake and Alert Patient Behavior: Talkative, Anxious and Good Eye Contact Mood Description: Withdrawn, Anxious and Apprehensive Affect Description: Constricted Patient Cognition Impaired: No Ability to Follow Directions: Good Speech Pattern: Spontaneous Speech Memory Description: Intact Hallucinations: None (denies) Delusions: Not Present Perceptual Disturbances: Depersonalization (at times) and Derealization (at times) Thought Process: Goal Oriented Thought Content: positive for Thompson, positive for Circumstantial and positive for Goal Oriented Depressive Symptoms: Increased Anxiety Judgement: Fair Diagnostics Vital Signs (24Hr): Vital Signs - 24 hr 04/07/21 18:00 Temperature 97.7 F Pulse Rate 79 Blood Pressure 131/67 Body Mass Index 24.3 Labs Results: 03/20/21 08:03 03/19/21 07:48 Imaging Radiology Impressions: ITS Impressions Brain MRI 03/27/21 14:04 IMPRESSION: Normal limited MRI of the brain with motion artifacts. Medications Medications Current Medications Generic Name Dose Route Start Last Admin Trade Name Freq PRN Reason Stop Dose Admin Acetaminophen 650 mg 02/27/21 20:08 03/30/21 22:13 Acetaminophen 325 Mg Tablet PO 650 mg Q6H PRN Administration Headache/Pain Mild Scale (1-3) Al Hydroxide/Mg Hydroxide 30 ml 02/27/21 20:08 Magnesium Hydrox/Alum Hydrox 30 Ml Oral.Susp PO Q6H PRN Heartburn/Nausea Albuterol Sulfate 2 puff 03/02/21 21:23 03/15/21 09:51 Albuterol Sulfate 90 Mcg 8 Gm Inhaler INHALE 2 puff RQ4H PRN Administration Shortness of Breath Benztropine Mesylate 1 mg 04/01/21 15:35 04/08/21 09:52 Benztropine Mesylate 1 Mg Tablet PO 1 mg BID PRN Administration EPS Clonazepam 0.5 mg 03/02/21 21:41 04/04/21 16:25 Clonazepam 0.5 Mg Tablet PO 0.5 mg DAILY PRN Administration SEVERE anxiety/panic Diphenhydramine HCl 50 mg 03/19/21 13:32 Diphenhydramine Hcl 25 Mg Tablet PO Q8H PRN EPS, Dystonia Haloperidol 5 mg 04/03/21 11:20 Haloperidol 5 Mg Tablet PO BID PRN psychosis, agitation Haloperidol 5 mg 04/05/21 09:00 04/08/21 09:48 Haloperidol 5 Mg Tablet PO 5 mg DAILY UDSTIN Administration Haloperidol 2 mg 04/04/21 21:00 04/07/21 20:21 Haloperidol 1 Mg Tablet PO 2 mg BEDTIME DUSTIN Administration Lamotrigine 25 mg 03/26/21 21:00 04/07/21 20:21 Lamotrigine 25 Mg Tablet PO 25 mg BEDTIME DUSTIN Administration Lorazepam 1 mg 03/19/21 13:33 04/06/21 13:19 Lorazepam 1 Mg Tablet PO 1 mg Q6H PRN Administration anxiety, dystonia Magnesium Hydroxide 30 ml 02/27/21 20:08 04/02/21 20:16 Milk Of Magnesia 30 Ml Oral.Susp PO 30 ml DAILY PRN Administration Constipation Melatonin 6 mg 02/27/21 20:09 04/07/21 20:21 Melatonin 3 Mg Tablet PO 6 mg BEDTIME PRN Administration Insomnia Multi-Ingred Cream/Lotion/Oil/Oint 1 appl 03/03/21 19:30 Mineral Oil/Petrolatum,White 106 Gm Tube TOPICAL TID PRN dry skin Nicotine Polacrilex 4 mg 02/27/21 20:08 04/08/21 11:22 Nicotine Polacrilex 2 Mg Gum BUCCAL 4 mg Q2H PRN Administration Nicotine Cravings Patient Own Med 1 each 03/04/21 09:00 04/08/21 10:03 Compound W Strips PO Not Given DAILY DUSTIN Patient Own 1 each 03/13/21 10:30 04/08/21 10:04 Medication ( PO 1 each Norgestimat/Eth Est DAILY DUSTIN Administration 0.25/0.035 Tablet) Topiramate 25 mg 04/02/21 09:00 04/08/21 09:48 Topiramate 25 Mg Tablet PO 25 mg DAILY DUSTIN Administration Trazodone HCl 150 mg 02/27/21 20:09 04/07/21 20:22 Trazodone Hcl 50 Mg Tablet PO 150 mg BEDTIME PRN Administration Insomnia Allergies Allergies Allergy/AdvReac Type Severity Reaction Status Date / Time risperidone [From Risperdal] Allergy Mild gain weight Verified 02/24/21 01:27 aripiprazole [Abilify] Allergy Unknown gain weight Verified 02/24/21 01:27 paliperidone AdvReac dystonia Verified 02/24/21 01:27 Assessment & Plan Assessment & Plan (1) Schizoaffective disorder, bipolar type: Status: Acute Code(s): F25.0 - Schizoaffective disorder, bipolar type Assessment and Plan: Continue Haldol, Lamictal, Topamax, Lamictal, Benztropine prn. Declines Haldol titration to 5 mg bid. Lamictal due for titrtion 04/16. Transition to [place], [place] or return to [facility] all options for the future. Haldol effective thus far. Consider cross titration after a period of stability. Mouth checks Monitor for initiation of menses. HCG negative Education, alliance building. Discharge discussions with pt, mother, team. Pt often will tell tw she is asymptomatic and tell/show others differently and express the symptoms to mother. Ongoing assessment for this pattern of symptom expression in discharge planning. Assessment and Plan: As noted above. Greater than 50% of the session was spent on counseling and/or coordination of care Patient educated on: medication risk/benefits and therapeutic strategies Informed Consent: understands and further education needed Reason for contiued inpatient stay Substantial Risk for: harm to self, inability to function and rapid decompensation
[2021-04-08 16:47] VITALS: BP 122/64; PULSE 93; RESP 16; TEMP 36.4; O2SAT 98
[2021-04-08] MEDS: HaloperidoL 1 MG TABLET 2 MG PO (20:08)
[2021-04-08] MEDS: Melatonin 3 MG TABLET 6 MG PO (20:08)
[2021-04-08] MEDS: traZODone HCL 50 MG TABLET 150 MG PO (20:09)
[2021-04-08] MEDS: lamoTRIgine 25 MG TABLET PO (20:09)
[2021-04-08 20:17] VITALS: BP 111/70; PULSE 97; RESP 18; TEMP 37.2; O2SAT 99
[2021-04-09] MEDS: HaloperidoL 5 MG TABLET PO (08:49)
[2021-04-09] MEDS: Topiramate 25 MG TABLET PO (08:49)
[2021-04-09] MEDS: Benztropine Mesylate 1 MG TABLET PO (08:49)
[2021-04-09] MEDS: Nicotine Polacrilex 2 MG GUM 4 MG BUCCAL ×2 (11:30→18:47)
[2021-04-09] MEDS: clonazePAM 0.5 MG TABLET PO (12:19)
--- NOTE | 2021-04-09 12:56 | HO.PSYCHPN ---
Subjective Subjective Date of Service: 04/09/21 Reason For Visit: Psychosis Subjective Notes: Conditional Voluntary Healthcare Proxy: No Guardianship: Yes Medical Problems Affecting Mental Status: No Interim History: Desi reports she feels well. She denies medication SE and does not feel overmedicated. She was more visable in the milieu today, talking with 3 different peers. She approached and asked to meet but discussed her group schedule and meetings she did not want to miss, which appears to be a positive change a good step forward for her. She is discharge focused. We await a decision from [facility] regarding their opinion regarding eligibility for services and will meet with pt and family to begin planning. Medication Compliance: Yes Side effects from medications: No Attending Groups: Yes Review of Systems Acute medical concerns: No Medical Review of Systems: unchanged Review of Systems Psychiatric: Reports anxiety Mental Status Exam Mental Status Exam Patient Appearance: Appropriate Patient Orientation: Person, Place, Time and Situation Level of Consciousness: Alert Patient Behavior: Appropriate, Talkative, Cooperative and Good Eye Contact Mood Description: Calm Affect Description: Calm Patient Cognition Impaired: No Ability to Follow Directions: Good Speech Pattern: Spontaneous Speech Memory Description: Intact Hallucinations: None (denies) Delusions: Not Present Thought Process: Goal Oriented Thought Content: positive for Goal Oriented and positive for Suicidal Ideation (denies) Depressive Symptoms: Increased Anxiety Judgement: Fair Diagnostics Vital Signs (24Hr): Vital Signs - 24 hr 04/08/21 16:47 04/08/21 20:17 Temperature 97.5 F 99 F Pulse Rate 93 97 Respiratory Rate 16 18 Blood Pressure 122/64 111/70 Pulse Oximetry 98 99 Body Mass Index 24.3 Labs Results: 03/20/21 08:03 03/19/21 07:48 Imaging Radiology Impressions: ITS Impressions Brain MRI 03/27/21 14:04 IMPRESSION: Normal limited MRI of the brain with motion artifacts. Medications Medications Current Medications Generic Name Dose Route Start Last Admin Trade Name Freq PRN Reason Stop Dose Admin Acetaminophen 650 mg 02/27/21 20:08 03/30/21 22:13 Acetaminophen 325 Mg Tablet PO 650 mg Q6H PRN Administration Headache/Pain Mild Scale (1-3) Al Hydroxide/Mg Hydroxide 30 ml 02/27/21 20:08 Magnesium Hydrox/Alum Hydrox 30 Ml Oral.Susp PO Q6H PRN Heartburn/Nausea Albuterol Sulfate 2 puff 03/02/21 21:23 03/15/21 09:51 Albuterol Sulfate 90 Mcg 8 Gm Inhaler INHALE 2 puff RQ4H PRN Administration Shortness of Breath Benztropine Mesylate 1 mg 04/01/21 15:35 04/09/21 08:49 Benztropine Mesylate 1 Mg Tablet PO 1 mg BID PRN Administration EPS Clonazepam 0.5 mg 03/02/21 21:41 04/09/21 12:19 Clonazepam 0.5 Mg Tablet PO 0.5 mg DAILY PRN Administration SEVERE anxiety/panic Diphenhydramine HCl 50 mg 03/19/21 13:32 Diphenhydramine Hcl 25 Mg Tablet PO Q8H PRN EPS, Dystonia Haloperidol 5 mg 04/03/21 11:20 Haloperidol 5 Mg Tablet PO BID PRN psychosis, agitation Haloperidol 5 mg 04/05/21 09:00 04/09/21 08:49 Haloperidol 5 Mg Tablet PO 5 mg DAILY DUSTIN Administration Haloperidol 2 mg 04/04/21 21:00 04/08/21 20:08 Haloperidol 1 Mg Tablet PO 2 mg BEDTIME DUSTIN Administration Lamotrigine 25 mg 03/26/21 21:00 04/08/21 20:09 Lamotrigine 25 Mg Tablet PO 25 mg BEDTIME DUSTIN Administration Lorazepam 1 mg 03/19/21 13:33 04/06/21 13:19 Lorazepam 1 Mg Tablet PO 1 mg Q6H PRN Administration anxiety, dystonia Magnesium Hydroxide 30 ml 02/27/21 20:08 04/02/21 20:16 Milk Of Magnesia 30 Ml Oral.Susp PO 30 ml DAILY PRN Administration Constipation Melatonin 6 mg 02/27/21 20:09 04/08/21 20:08 Melatonin 3 Mg Tablet PO 6 mg BEDTIME PRN Administration Insomnia Multi-Ingred Cream/Lotion/Oil/Oint 1 appl 03/03/21 19:30 Mineral Oil/Petrolatum,White 106 Gm Tube TOPICAL TID PRN dry skin Nicotine Polacrilex 4 mg 02/27/21 20:08 04/09/21 11:30 Nicotine Polacrilex 2 Mg Gum BUCCAL 4 mg Q2H PRN Administration Nicotine Cravings Patient Own Med 1 each 03/04/21 09:00 04/09/21 08:55 Compound W Strips PO Not Given DAILY DUSTIN Patient Own 1 each 03/13/21 10:30 04/09/21 08:49 Medication ( PO 1 each Norgestimat/Eth Est DAILY DUSTIN Administration 0.25/0.035 Tablet) Topiramate 25 mg 04/02/21 09:00 04/09/21 08:49 Topiramate 25 Mg Tablet PO 25 mg DAILY DUSTIN Administration Trazodone HCl 150 mg 02/27/21 20:09 04/08/21 20:09 Trazodone Hcl 50 Mg Tablet PO 150 mg BEDTIME PRN Administration Insomnia Allergies Allergies Allergy/AdvReac Type Severity Reaction Status Date / Time risperidone [From Risperdal] Allergy Mild gain weight Verified 02/24/21 01:27 aripiprazole [Abilify] Allergy Unknown gain weight Verified 02/24/21 01:27 paliperidone AdvReac dystonia Verified 02/24/21 01:27 Assessment & Plan Assessment & Plan (1) Schizoaffective disorder, bipolar type: Status: Acute Code(s): F25.0 - Schizoaffective disorder, bipolar type Assessment and Plan: Continue Haldol, Lamictal, Topamax, Lamictal, Benztropine prn. Declines Haldol titration to 5 mg bid. Lamictal due for titrtion 04/16. Transition to [place], [facility] or return to [facility] all options for the future. Haldol effective thus far. Consider cross titration after a period of stability. Mouth checks Monitor for initiation of menses. HCG negative Education, alliance building. Discharge discussions with pt, mother, team. Pt often will tell tw she is asymptomatic and tell/show others differently and express the symptoms to mother. Ongoing assessment for this pattern of symptom expression in discharge planning. Assessment and Plan: As noted above. Continue current plan. Greater than 50% of the session was spent on counseling and/or coordination of care Reason for contiued inpatient stay Substantial Risk for: harm to self, inability to function and rapid decompensation
[2021-04-09 18:15] VITALS: BP 109/67; PULSE 99; TEMP 36.6
[2021-04-09] MEDS: traZODone HCL 50 MG TABLET 150 MG PO (20:17)
[2021-04-09] MEDS: HaloperidoL 1 MG TABLET 2 MG PO (20:17)
[2021-04-09] MEDS: Melatonin 3 MG TABLET 6 MG PO (20:18)
[2021-04-09] MEDS: lamoTRIgine 25 MG TABLET PO (20:18)
[2021-04-10] MEDS: Benztropine Mesylate 1 MG TABLET PO (09:37)
[2021-04-10] MEDS: Topiramate 25 MG TABLET PO (09:37)
[2021-04-10] MEDS: HaloperidoL 5 MG TABLET PO (09:37)
[2021-04-10] MEDS: clonazePAM 0.5 MG TABLET PO (10:36)
--- NOTE | 2021-04-10 12:29 | P.PNPSI_ITS ---
Subjective Subjective Date of Service: 04/10/21 Reason For Visit: Psychosis Subjective Notes: Conditional Voluntary Healthcare Proxy: No Guardianship: No Medical Problems Affecting Mental Status: No Interim History: No formal meeting with pt today. States she is ready to go . She did have a meeting with Isabella LONGSW, mom and grandmother to sort out issues with grandmother that occurred prior to this admission. Team reports she did well with explanation of symptoms [employer] WORK[employer] and education-able to remain focused on topic and able to remain in the meeting. Discharge planning in process. Medication Compliance: Yes Side effects from medications: No Attending Groups: Intermittent Review of Systems Acute medical concerns: No Medical Review of Systems: unchanged Review of Systems Psychiatric: Reports anxiety and Reports suicidal ideation (denies) Mental Status Exam Mental Status Exam Patient Appearance: Appropriate Patient Orientation: Person, Place, Time and Situation Level of Consciousness: Alert Patient Behavior: Appropriate and Anxious Mood Description: Anxious Affect Description: Anxious Patient Cognition Impaired: No Ability to Follow Directions: Good Speech Pattern: Spontaneous Speech Memory Description: Episodic Impaired Hallucinations: None (denies) Delusions: Not Present Thought Process: Goal Oriented Thought Content: positive for Goal Oriented Depressive Symptoms: Increased Anxiety Judgement: Fair Diagnostics Vital Signs (24Hr): Vital Signs - 24 hr 04/09/21 18:15 Temperature 98 F Pulse Rate 99 Blood Pressure 109/67 Body Mass Index 24.3 Labs Results: 03/20/21 08:03 03/19/21 07:48 Imaging Radiology Impressions: ITS Impressions Brain MRI 03/27/21 14:04 IMPRESSION: Normal limited MRI of the brain with motion artifacts. Medications Medications Current Medications Generic Name Dose Route Start Last Admin Trade Name Freq PRN Reason Stop Dose Admin Acetaminophen 650 mg 02/27/21 20:08 03/30/21 22:13 Acetaminophen 325 Mg Tablet PO 650 mg Q6H PRN Administration Headache/Pain Mild Scale (1-3) Al Hydroxide/Mg Hydroxide 30 ml 02/27/21 20:08 Magnesium Hydrox/Alum Hydrox 30 Ml Oral.Susp PO Q6H PRN Heartburn/Nausea Albuterol Sulfate 2 puff 03/02/21 21:23 03/15/21 09:51 Albuterol Sulfate 90 Mcg 8 Gm Inhaler INHALE 2 puff RQ4H PRN Administration Shortness of Breath Benztropine Mesylate 1 mg 04/01/21 15:35 04/10/21 09:37 Benztropine Mesylate 1 Mg Tablet PO 1 mg BID PRN Administration EPS Clonazepam 0.5 mg 03/02/21 21:41 04/10/21 10:36 Clonazepam 0.5 Mg Tablet PO 0.5 mg DAILY PRN Administration SEVERE anxiety/panic Diphenhydramine HCl 50 mg 03/19/21 13:32 Diphenhydramine Hcl 25 Mg Tablet PO Q8H PRN EPS, Dystonia Haloperidol 5 mg 04/03/21 11:20 Haloperidol 5 Mg Tablet PO BID PRN psychosis, agitation Haloperidol 5 mg 04/05/21 09:00 04/10/21 09:37 Haloperidol 5 Mg Tablet PO 5 mg DAILY DUSTIN Administration Haloperidol 2 mg 04/04/21 21:00 04/09/21 20:17 Haloperidol 1 Mg Tablet PO 2 mg BEDTIME DUSTIN Administration Lamotrigine 25 mg 03/26/21 21:00 04/09/21 20:18 Lamotrigine 25 Mg Tablet PO 25 mg BEDTIME DUSTIN Administration Lorazepam 1 mg 03/19/21 13:33 04/06/21 13:19 Lorazepam 1 Mg Tablet PO 1 mg Q6H PRN Administration anxiety, dystonia Magnesium Hydroxide 30 ml 02/27/21 20:08 04/02/21 20:16 Milk Of Magnesia 30 Ml Oral.Susp PO 30 ml DAILY PRN Administration Constipation Melatonin 6 mg 02/27/21 20:09 04/09/21 20:18 Melatonin 3 Mg Tablet PO 6 mg BEDTIME PRN Administration Insomnia Multi-Ingred Cream/Lotion/Oil/Oint 1 appl 03/03/21 19:30 Mineral Oil/Petrolatum,White 106 Gm Tube TOPICAL TID PRN dry skin Nicotine Polacrilex 4 mg 02/27/21 20:08 04/09/21 18:47 Nicotine Polacrilex 2 Mg Gum BUCCAL 4 mg Q2H PRN Administration Nicotine Cravings Patient Own Med 1 each 03/04/21 09:00 04/10/21 09:37 Compound W Strips PO Not Given DAILY DUSTIN Patient Own 1 each 03/13/21 10:30 04/10/21 09:37 Medication ( PO 1 each Norgestimat/Eth Est DAILY DUSTIN Administration 0.25/0.035 Tablet) Topiramate 25 mg 04/02/21 09:00 04/10/21 09:37 Topiramate 25 Mg Tablet PO 25 mg DAILY DUSTIN Administration Trazodone HCl 150 mg 02/27/21 20:09 04/09/21 20:17 Trazodone Hcl 50 Mg Tablet PO 150 mg BEDTIME PRN Administration Insomnia Allergies Allergies Allergy/AdvReac Type Severity Reaction Status Date / Time risperidone [From Risperdal] Allergy Mild gain weight Verified 02/24/21 01:27 aripiprazole [Abilify] Allergy Unknown gain weight Verified 02/24/21 01:27 paliperidone AdvReac dystonia Verified 02/24/21 01:27 Assessment & Plan Assessment & Plan (1) Schizoaffective disorder, bipolar type: Status: Acute Code(s): F25.0 - Schizoaffective disorder, bipolar type Assessment and Plan: Continue Haldol, Lamictal, Topamax, Lamictal, Benztropine prn. Declines Haldol titration to 5 mg bid. Lamictal due for titrtion 04/16. Transition to [place], Vraylar or return to [facility] all options for the future. Haldol effective thus far. Consider cross titration after a period of stability. Mouth checks Monitor for initiation of menses. HCG negative Education, alliance building. Discharge discussions with pt, mother, team. Pt often will tell tw she is asymptomatic and tell/show others differently and express the symptoms to mother. Ongoing assessment for this pattern of symptom expression in discharge planning. Pt has been increasing her time in milieu, socializing and processing with family. She is active in working on boundary issues and we may have some conflicts arise that can be managed with education. Family meeting today was a success with education from team regarding symptoms to further pt's understanding of illness presentation. Assessment and Plan: As noted above. Continue current plan. Greater than 50% of the session was spent on counseling and/or coordination of care Reason for contiued inpatient stay Substantial Risk for: rapid decompensation
[2021-04-10 18:00] VITALS: BP 129/67; PULSE 80; TEMP 35.9
[2021-04-10] MEDS: Nicotine Polacrilex 2 MG GUM 4 MG BUCCAL (18:55)
[2021-04-10] MEDS: Melatonin 3 MG TABLET 6 MG PO (20:14)
[2021-04-10] MEDS: traZODone HCL 50 MG TABLET 150 MG PO (20:14)
[2021-04-10] MEDS: HaloperidoL 1 MG TABLET 2 MG PO (20:14)
[2021-04-10] MEDS: lamoTRIgine 25 MG TABLET PO (20:14)
[2021-04-10] MEDS: LORazepam 1 MG TABLET PO (20:19)
[2021-04-11 07:00] VITALS: BMI 25.7
[2021-04-11] MEDS: Benztropine Mesylate 1 MG TABLET PO ×2 (09:19→21:05)
[2021-04-11] MEDS: HaloperidoL 5 MG TABLET PO (09:19)
[2021-04-11] MEDS: Topiramate 25 MG TABLET PO (09:19)
[2021-04-11] MEDS: Nicotine Polacrilex 2 MG GUM 4 MG BUCCAL ×4 (13:56→21:05)
--- NOTE | 2021-04-11 17:01 | P.PNPSI_ITS ---
Subjective Subjective Date of Service: 04/11/21 Reason For Visit: Psychosis Subjective Notes: Conditional Voluntary Healthcare Proxy: No Guardianship: Yes Medical Problems Affecting Mental Status: No Interim History: Pt is pleased with her family meeting 04/10 with her grandmother. Meeting 04/15 with OP team, family to plan discharge. Pt states she is ready, will continue her treatment, and talks about wanting to attend college. Medication Compliance: Yes Side effects from medications: No Attending Groups: Intermittent (seen more in evening groups ) Review of Systems Acute medical concerns: No Medical Review of Systems: unchanged Review of Systems Psychiatric: Reports anxiety Mental Status Exam Mental Status Exam Patient Appearance: Appropriate Patient Orientation: Person, Place, Time and Situation Level of Consciousness: Alert Patient Behavior: Talkative and Good Eye Contact Mood Description: Anxious Affect Description: Flat Patient Cognition Impaired: No Ability to Follow Directions: Good Speech Pattern: Spontaneous Speech Memory Description: Episodic Impaired Hallucinations: None (denies) Delusions: Not Present Thought Process: Goal Oriented Thought Content: positive for [place], positive for Circumstantial and positive for Goal Oriented Depressive Symptoms: Increased Anxiety Judgement: Fair Diagnostics Vital Signs (24Hr): Vital Signs - 24 hr 04/10/21 18:00 Temperature 96.6 F L Pulse Rate 80 Blood Pressure 129/67 Body Mass Index 25.7 Labs Results: 03/20/21 08:03 03/19/21 07:48 Imaging Radiology Impressions: ITS Impressions Brain MRI 03/27/21 14:04 IMPRESSION: Normal limited MRI of the brain with motion artifacts. Medications Medications Current Medications Generic Name Dose Route Start Last Admin Trade Name Freq PRN Reason Stop Dose Admin Acetaminophen 650 mg 02/27/21 20:08 03/30/21 22:13 Acetaminophen 325 Mg Tablet PO 650 mg Q6H PRN Administration Headache/Pain Mild Scale (1-3) Al Hydroxide/Mg Hydroxide 30 ml 02/27/21 20:08 Magnesium Hydrox/Alum Hydrox 30 Ml Oral.Susp PO Q6H PRN Heartburn/Nausea Albuterol Sulfate 2 puff 03/02/21 21:23 03/15/21 09:51 Albuterol Sulfate 90 Mcg 8 Gm Inhaler INHALE 2 puff RQ4H PRN Administration Shortness of Breath Benztropine Mesylate 1 mg 04/01/21 15:35 04/11/21 09:19 Benztropine Mesylate 1 Mg Tablet PO 1 mg BID PRN Administration EPS Clonazepam 0.5 mg 03/02/21 21:41 04/10/21 10:36 Clonazepam 0.5 Mg Tablet PO 0.5 mg DAILY PRN Administration SEVERE anxiety/panic Diphenhydramine HCl 50 mg 03/19/21 13:32 Diphenhydramine Hcl 25 Mg Tablet PO Q8H PRN EPS, Dystonia Haloperidol 5 mg 04/03/21 11:20 Haloperidol 5 Mg Tablet PO BID PRN psychosis, agitation Haloperidol 5 mg 04/05/21 09:00 04/11/21 09:19 Haloperidol 5 Mg Tablet PO 5 mg DAILY DUSTIN Administration Haloperidol 2 mg 04/04/21 21:00 04/10/21 20:14 Haloperidol 1 Mg Tablet PO 2 mg BEDTIME DUSTIN Administration Lamotrigine 25 mg 03/26/21 21:00 04/10/21 20:14 Lamotrigine 25 Mg Tablet PO 25 mg BEDTIME DUSTIN Administration Lorazepam 1 mg 03/19/21 13:33 04/10/21 20:19 Lorazepam 1 Mg Tablet PO 1 mg Q6H PRN Administration anxiety, dystonia Magnesium Hydroxide 30 ml 02/27/21 20:08 04/02/21 20:16 Milk Of Magnesia 30 Ml Oral.Susp PO 30 ml DAILY PRN Administration Constipation Melatonin 6 mg 02/27/21 20:09 04/10/21 20:14 Melatonin 3 Mg Tablet PO 6 mg BEDTIME PRN Administration Insomnia Multi-Ingred Cream/Lotion/Oil/Oint 1 appl 03/03/21 19:30 Mineral Oil/Petrolatum,White 106 Gm Tube TOPICAL TID PRN dry skin Nicotine Polacrilex 4 mg 02/27/21 20:08 04/11/21 16:52 Nicotine Polacrilex 2 Mg Gum BUCCAL 4 mg Q2H PRN Administration Nicotine Cravings Patient Own Med 1 each 03/04/21 09:00 04/11/21 09:21 Compound W Strips PO Not Given DAILY DUSTIN Patient Own 1 each 03/13/21 10:30 04/11/21 09:19 Medication ( PO 1 each Norgestimat/Eth Est DAILY DUSTIN Administration 0.25/0.035 Tablet) Topiramate 25 mg 04/02/21 09:00 04/11/21 09:19 Topiramate 25 Mg Tablet PO 25 mg DAILY DUSTIN Administration Trazodone HCl 150 mg 02/27/21 20:09 04/10/21 20:14 Trazodone Hcl 50 Mg Tablet PO 150 mg BEDTIME PRN Administration Insomnia Allergies Allergies Allergy/AdvReac Type Severity Reaction Status Date / Time risperidone [From Risperdal] Allergy Mild gain weight Verified 02/24/21 01:27 aripiprazole [Abilify] Allergy Unknown gain weight Verified 02/24/21 01:27 paliperidone AdvReac dystonia Verified 02/24/21 01:27 Assessment & Plan Assessment & Plan (1) Schizoaffective disorder, bipolar type: Status: Acute Code(s): F25.0 - Schizoaffective disorder, bipolar type Assessment and Plan: Continue Haldol, Lamictal, Topamax, Benztropine prn. Declines Haldol titration to 5 mg bid. Lamictal due for titrtion 04/16. Transition to [place], Vraylar or return to [facility] all options for the future. Haldol effective thus far. Consider cross titration after a period of stability. Mouth checks Monitor for initiation of menses. HCG negative Education, alliance building. Assessment and Plan: As noted above. Continue current plan. Greater than 50% of the session was spent on counseling and/or coordination of care Reason for contiued inpatient stay Substantial Risk for: harm to self, harm to others, inability to function and rapid decompensation
[2021-04-11 18:00] VITALS: BP 119/88; PULSE 90; TEMP 36.6
[2021-04-11] MEDS: lamoTRIgine 25 MG TABLET PO (21:03)
[2021-04-11] MEDS: HaloperidoL 1 MG TABLET 2 MG PO (21:03)
[2021-04-12 09:45] VITALS: BP 97/60; PULSE 89; RESP 18; TEMP 36.5; O2SAT 98
[2021-04-12] MEDS: HaloperidoL 5 MG TABLET PO (09:53)
[2021-04-12] MEDS: Benztropine Mesylate 1 MG TABLET PO (09:53)
[2021-04-12] MEDS: Topiramate 25 MG TABLET PO (09:54)
[2021-04-12] MEDS: Nicotine Polacrilex 2 MG GUM 4 MG BUCCAL ×4 (12:02→19:57)
[2021-04-12] MEDS: Milk of Magnesia 30 ML ORAL.SUSP PO (13:46)
--- NOTE | 2021-04-12 15:59 | P.PNPSI_ITS ---
Subjective Subjective Date of Service: 04/12/21 Reason For Visit: Psychosis Subjective Notes: Conditional Voluntary Healthcare Proxy: No Guardianship: Yes Medical Problems Affecting Mental Status: No Interim History: Pt listening to music today-states she is satisfied with the meeting schedule for next week and hopes to discharge before Thursday . Denies medication SE, however, states I use the Cogentin will you give me some to take home. Denies SI, HI. Denies perceptual alterations. Remains more active with peers in the eveing. Medication Compliance: Yes Side effects from medications: No (denies, however using Benztropine) Attending Groups: Intermittent Review of Systems Acute medical concerns: No Medical Review of Systems: unchanged Review of Systems Psychiatric: Reports no additional psychiatric complaints and Reports suicidal ideation (denies SI plan or intent) Mental Status Exam Mental Status Exam Patient Appearance: Appropriate Patient Orientation: Person, Place, Time and Situation Level of Consciousness: Alert Patient Behavior: Talkative and Good Eye Contact Mood Description: Calm Affect Description: Calm and Flat Patient Cognition Impaired: No Ability to Follow Directions: Good Speech Pattern: Spontaneous Speech Memory Description: Episodic Impaired Hallucinations: None (denies) Delusions: Not Present Thought Process: Goal Oriented Thought Content: positive for [place], positive for Circumstantial and positive for Goal Oriented Depressive Symptoms: Low Self Esteem Judgement: Fair Diagnostics Vital Signs (24Hr): Vital Signs - 24 hr 04/11/21 18:00 04/12/21 09:45 Temperature 97.8 F 97.7 F Pulse Rate 90 89 Respiratory Rate 18 Blood Pressure 119/88 97/60 Pulse Oximetry 98 Body Mass Index 25.7 Labs Results: 03/20/21 08:03 03/19/21 07:48 Imaging Radiology Impressions: ITS Impressions Brain MRI 03/27/21 14:04 IMPRESSION: Normal limited MRI of the brain with motion artifacts. Medications Medications Current Medications Generic Name Dose Route Start Last Admin Trade Name Freq PRN Reason Stop Dose Admin Acetaminophen 650 mg 02/27/21 20:08 03/30/21 22:13 Acetaminophen 325 Mg Tablet PO 650 mg Q6H PRN Administration Headache/Pain Mild Scale (1-3) Al Hydroxide/Mg Hydroxide 30 ml 02/27/21 20:08 Magnesium Hydrox/Alum Hydrox 30 Ml Oral.Susp PO Q6H PRN Heartburn/Nausea Albuterol Sulfate 2 puff 03/02/21 21:23 03/15/21 09:51 Albuterol Sulfate 90 Mcg 8 Gm Inhaler INHALE 2 puff RQ4H PRN Administration Shortness of Breath Benztropine Mesylate 1 mg 04/01/21 15:35 04/12/21 09:53 Benztropine Mesylate 1 Mg Tablet PO 1 mg BID PRN Administration EPS Clonazepam 0.5 mg 03/02/21 21:41 04/10/21 10:36 Clonazepam 0.5 Mg Tablet PO 0.5 mg DAILY PRN Administration SEVERE anxiety/panic Diphenhydramine HCl 50 mg 03/19/21 13:32 Diphenhydramine Hcl 25 Mg Tablet PO Q8H PRN EPS, Dystonia Haloperidol 5 mg 04/03/21 11:20 Haloperidol 5 Mg Tablet PO BID PRN psychosis, agitation Haloperidol 5 mg 04/05/21 09:00 04/12/21 09:53 Haloperidol 5 Mg Tablet PO 5 mg DAILY DUSTIN Administration Haloperidol 2 mg 04/04/21 21:00 04/11/21 21:03 Haloperidol 1 Mg Tablet PO 2 mg BEDTIME DUSTIN Administration Lamotrigine 25 mg 03/26/21 21:00 04/11/21 21:03 Lamotrigine 25 Mg Tablet PO 25 mg BEDTIME DUSTIN Administration Lorazepam 1 mg 03/19/21 13:33 04/10/21 20:19 Lorazepam 1 Mg Tablet PO 1 mg Q6H PRN Administration anxiety, dystonia Magnesium Hydroxide 30 ml 02/27/21 20:08 04/12/21 13:46 Milk Of Magnesia 30 Ml Oral.Susp PO 30 ml DAILY PRN Administration Constipation Melatonin 6 mg 02/27/21 20:09 04/10/21 20:14 Melatonin 3 Mg Tablet PO 6 mg BEDTIME PRN Administration Insomnia Multi-Ingred Cream/Lotion/Oil/Oint 1 appl 03/03/21 19:30 Mineral Oil/Petrolatum,White 106 Gm Tube TOPICAL TID PRN dry skin Nicotine Polacrilex 4 mg 02/27/21 20:08 04/12/21 14:02 Nicotine Polacrilex 2 Mg Gum BUCCAL 4 mg Q2H PRN Administration Nicotine Cravings Patient Own Med 1 each 03/04/21 09:00 04/12/21 10:00 Compound W Strips PO Not Given DAILY DUSTIN Patient Own 1 each 03/13/21 10:30 04/12/21 10:03 Medication ( PO 1 each Norgestimat/Eth Est DAILY DUSTIN Administration 0.25/0.035 Tablet) Topiramate 25 mg 04/02/21 09:00 04/12/21 09:54 Topiramate 25 Mg Tablet PO 25 mg DAILY DUSTIN Administration Trazodone HCl 150 mg 02/27/21 20:09 04/10/21 20:14 Trazodone Hcl 50 Mg Tablet PO 150 mg BEDTIME PRN Administration Insomnia Allergies Allergies Allergy/AdvReac Type Severity Reaction Status Date / Time risperidone [From Risperdal] Allergy Mild gain weight Verified 02/24/21 01:27 aripiprazole [Abilify] Allergy Unknown gain weight Verified 02/24/21 01:27 paliperidone AdvReac dystonia Verified 02/24/21 01:27 Assessment & Plan Assessment & Plan (1) Schizoaffective disorder, bipolar type: Status: Acute Code(s): F25.0 - Schizoaffective disorder, bipolar type Assessment and Plan: Continue Haldol, Lamictal, Topamax, Benztropine prn. Declines Haldol titration to 5 mg bid. Lamictal due for titrtion 04/16. Transition to [place], Vraylar or return to [facility] all options for the future. Haldol effective thus far. Consider cross titration after a period of stability. Mouth checks Education, alliance building. Assessment and Plan: As noted above. Continue current plan. Greater than 50% of the session was spent on counseling and/or coordination of care Reason for contiued inpatient stay Substantial Risk for: harm to self, harm to others, inability to function and rapid decompensation
[2021-04-12 18:00] VITALS: BP 118/65; PULSE 88; TEMP 37.2
[2021-04-12] MEDS: HaloperidoL 1 MG TABLET 2 MG PO (19:56)
[2021-04-12] MEDS: lamoTRIgine 25 MG TABLET PO (19:57)
[2021-04-12] MEDS: traZODone HCL 50 MG TABLET 150 MG PO (21:50)
[2021-04-12] MEDS: Melatonin 3 MG TABLET 6 MG PO (21:50)
[2021-04-13] MEDS: Benztropine Mesylate 1 MG TABLET PO (09:44)
[2021-04-13] MEDS: Topiramate 25 MG TABLET PO (09:45)
[2021-04-13] MEDS: HaloperidoL 5 MG TABLET PO (09:45)
[2021-04-13] MEDS: Nicotine Polacrilex 2 MG GUM 4 MG BUCCAL ×3 (10:18→18:20)
[2021-04-13] MEDS: Milk of Magnesia 30 ML ORAL.SUSP PO (12:04)
[2021-04-13 18:00] VITALS: BP 114/60; PULSE 97; TEMP 37.1
[2021-04-13] MEDS: lamoTRIgine 25 MG TABLET PO (19:44)
[2021-04-13] MEDS: HaloperidoL 1 MG TABLET 2 MG PO (19:45)
[2021-04-13] MEDS: traZODone HCL 50 MG TABLET 150 MG PO (19:45)
[2021-04-13] MEDS: Melatonin 3 MG TABLET 6 MG PO (19:46)
[2021-04-13] MEDS: clonazePAM 0.5 MG TABLET PO (19:49)
--- NOTE | 2021-04-13 21:23 | HO.PSYCHPN ---
Subjective Subjective Date of Service: 04/13/21 Reason For Visit: Psychosis Subjective Notes: Conditional Voluntary Medical Problems Affecting Mental Status: No Interim History: pt polite, soft spoken, denied concerns; declined to talk about symptoms or her mental health today Medication Compliance: Yes Side effects from medications: No Attending Groups: No Review of Systems Acute medical concerns: No Medical Review of Systems: unchanged Review of Systems: no changes Review of Systems Review of Systems Yes all other systems are reviewed and are negative Constitutional: Reports headache(s), Reports increased appetite and Reports weight gain Eyes: Reports no additional eye complaints Reports system reviewed and no additional complaints, except as documented, Reports Normal hearing present and Reports headache(s) Cardiovascular: Reports no additional cardiovascular complaints Respiratory: Reports no additional respiratory complaints Gastrointestinal: Reports no additional gastrointestinal complaints Musculoskeletal: Reports no additional musculoskeletal complaints Reports system reviewed and no additional complaints, except as documented, Reports Normal hearing present, Reports behavioral changes, Reports confusion, Reports headache(s) and Reports memory loss Psychiatric: Reports no additional psychiatric complaints, Reports abnormal sleep pattern, Reports anxiety, Reports behavioral changes, Reports change in appetite, Reports confusion, Reports depression, Reports difficulty concentrating, Reports auditory hallucinations, Reports hopelessness, Reports irritability, Reports anhedonia, Reports memory loss, Reports mood swings, Reports panic attacks, Reports paranoia, Reports hallucinations and Reports suicidal ideation (denies SI plan or intent) Endocrine: Reports no additional endocrine complaints Hematologic/Lymphatic: Reports no additional hematologic/lymphatic complaints Allergic/Immunologic: Reports no additional allergic/immunologic complaints Mental Status Exam Mental Status Exam Patient Appearance: Well Grooomed and Appropriate Patient Orientation: Person, Place, Time and Situation Level of Consciousness: Alert Patient Behavior: Cooperative and Good Eye Contact Mood Description: Calm Affect Description: Calm and Flat Patient Cognition Impaired: No Ability to Follow Directions: Good Speech Pattern: Spontaneous Speech Memory Description: Episodic Impaired Thought Process: Distracted Judgement: Fair Diagnostics Vital Signs (24Hr): Vital Signs - 24 hr 04/13/21 18:00 Temperature 98.8 F Pulse Rate 97 Blood Pressure 114/60 Body Mass Index 25.7 Labs Results: 03/20/21 08:03 03/19/21 07:48 Imaging Radiology Impressions: ITS Impressions Brain MRI 03/27/21 14:04 IMPRESSION: Normal limited MRI of the brain with motion artifacts. Medications Medications Current Medications Generic Name Dose Route Start Last Admin Trade Name Freq PRN Reason Stop Dose Admin Acetaminophen 650 mg 07/07/21 20:08 03/30/21 22:13 Acetaminophen 325 Mg Tablet PO 650 mg Q6H PRN Administration Headache/Pain Mild Scale (1-3) Al Hydroxide/Mg Hydroxide 30 ml 02/27/21 20:08 Magnesium Hydrox/Alum Hydrox 30 Ml Oral.Susp PO Q6H PRN Heartburn/Nausea Albuterol Sulfate 2 puff 03/02/21 21:23 03/15/21 09:51 Albuterol Sulfate 90 Mcg 8 Gm Inhaler INHALE 2 puff RQ4H PRN Administration Shortness of Breath Benztropine Mesylate 1 mg 04/01/21 15:35 04/13/21 09:44 Benztropine Mesylate 1 Mg Tablet PO 1 mg BID PRN Administration EPS Clonazepam 0.5 mg 03/02/21 21:41 04/13/21 19:49 Clonazepam 0.5 Mg Tablet PO 0.5 mg DAILY PRN Administration SEVERE anxiety/panic Diphenhydramine HCl 50 mg 03/19/21 13:32 Diphenhydramine Hcl 25 Mg Tablet PO Q8H PRN EPS, Dystonia Haloperidol 5 mg 04/03/21 11:20 Haloperidol 5 Mg Tablet PO BID PRN psychosis, agitation Haloperidol 5 mg 04/05/21 09:00 04/13/21 09:45 Haloperidol 5 Mg Tablet PO 5 mg DAILY DUSTIN Administration Haloperidol 2 mg 04/04/21 21:00 04/13/21 19:45 Haloperidol 1 Mg Tablet PO 2 mg BEDTIME DUSTIN Administration Lamotrigine 25 mg 03/26/21 21:00 04/13/21 19:44 Lamotrigine 25 Mg Tablet PO 25 mg BEDTIME DUSTIN Administration Lorazepam 1 mg 03/19/21 13:33 04/10/21 20:19 Lorazepam 1 Mg Tablet PO 1 mg Q6H PRN Administration anxiety, dystonia Magnesium Hydroxide 30 ml 02/27/21 20:08 04/13/21 12:04 Milk Of Magnesia 30 Ml Oral.Susp PO 30 ml DAILY PRN Administration Constipation Melatonin 6 mg 02/27/21 20:09 04/13/21 19:46 Melatonin 3 Mg Tablet PO 6 mg BEDTIME PRN Administration Insomnia Multi-Ingred Cream/Lotion/Oil/Oint 1 appl 03/03/21 19:30 Mineral Oil/Petrolatum,White 106 Gm Tube TOPICAL TID PRN dry skin Nicotine Polacrilex 4 mg 02/27/21 20:08 04/13/21 18:20 Nicotine Polacrilex 2 Mg Gum BUCCAL 4 mg Q2H PRN Administration Nicotine Cravings Patient Own Med 1 each 03/04/21 09:00 04/13/21 09:47 Compound W Strips PO Not Given DAILY DUSTIN Patient Own 1 each 03/13/21 10:30 04/13/21 09:47 Medication ( PO 1 each Norgestimat/Eth Est DAILY DUSTIN Administration 0.25/0.035 Tablet) Topiramate 25 mg 04/02/21 09:00 04/13/21 09:45 Topiramate 25 Mg Tablet PO 25 mg DAILY DUSTIN Administration Trazodone HCl 150 mg 02/27/21 20:09 04/13/21 19:45 Trazodone Hcl 50 Mg Tablet PO 150 mg BEDTIME PRN Administration Insomnia Allergies Allergies Allergy/AdvReac Type Severity Reaction Status Date / Time risperidone [From Risperdal] Allergy Mild gain weight Verified 02/24/21 01:27 aripiprazole [Abilify] Allergy Unknown gain weight Verified 02/24/21 01:27 paliperidone AdvReac dystonia Verified 02/24/21 01:27 Assessment & Plan Assessment & Plan (1) Schizoaffective disorder, bipolar type: Status: Acute Code(s): F25.0 - Schizoaffective disorder, bipolar type Assessment and Plan: Continue Haldol, Lamictal, Topamax, Benztropine prn. Declines Haldol titration to 5 mg bid. Lamictal due for titrtion 04/16. Transition to [place], Vraylar or return to [facility] all options for the future. Haldol effective thus far. Consider cross titration after a period of stability. Mouth checks Education, alliance building. Assessment and Plan: As noted above. Continue current plan. Greater than 50% of the session was spent on counseling and/or coordination of care Reason for contiued inpatient stay Substantial Risk for: harm to self, inability to function and med/psych decompensation
[2021-04-14] MEDS: HaloperidoL 5 MG TABLET PO (10:09)
[2021-04-14] MEDS: Topiramate 25 MG TABLET PO (10:09)
[2021-04-14] MEDS: Benztropine Mesylate 1 MG TABLET PO (10:09)
[2021-04-14] MEDS: Nicotine Polacrilex 2 MG GUM 4 MG BUCCAL ×3 (11:04→20:22)
--- NOTE | 2021-04-14 11:56 | P.PNPSI_ITS ---
Subjective Subjective Date of Service: 04/14/21 Reason For Visit: Psychosis Subjective Notes: Conditional Voluntary Medical Problems Affecting Mental Status: No Interim History: pt polite, soft spoken, denied concerns; declined to talk about symptoms or her mental health today Medication Compliance: Yes Side effects from medications: No Attending Groups: Yes Review of Systems Acute medical concerns: No Medical Review of Systems: unchanged Review of Systems: unchanged Review of Systems Review of Systems Yes all other systems are reviewed and are negative Mental Status Exam Mental Status Exam Narrative: in today's visit she is alert, oriented and pleasant. Normal speech. Moderate eye contact. Affect is appropriate, constricted and subdued. No SI. Cognitively intact. Judgment is intact Patient Appearance: Well Grooomed and Appropriate Patient Orientation: Person, Place, Time and Situation Level of Consciousness: Alert Patient Behavior: Cooperative and Good Eye Contact Mood Description: Calm Affect Description: Calm and Flat Patient Cognition Impaired: No Ability to Follow Directions: Good Speech Pattern: Spontaneous Speech Memory Description: Episodic Impaired Diagnostics Vital Signs (24Hr): Vital Signs - 24 hr 04/13/21 18:00 Temperature 98.8 F Pulse Rate 97 Blood Pressure 114/60 Body Mass Index 25.7 Labs Results: 03/20/21 08:03 03/19/21 07:48 Imaging Radiology Impressions: ITS Impressions Brain MRI 03/27/21 14:04 IMPRESSION: Normal limited MRI of the brain with motion artifacts. Medications Medications Current Medications Generic Name Dose Route Start Last Admin Trade Name Freq PRN Reason Stop Dose Admin Acetaminophen 650 mg 02/27/21 20:08 03/30/21 22:13 Acetaminophen 325 Mg Tablet PO 650 mg Q6H PRN Administration Headache/Pain Mild Scale (1-3) Al Hydroxide/Mg Hydroxide 30 ml 02/27/21 20:08 Magnesium Hydrox/Alum Hydrox 30 Ml Oral.Susp PO Q6H PRN Heartburn/Nausea Albuterol Sulfate 2 puff 03/02/21 21:23 03/15/21 09:51 Albuterol Sulfate 90 Mcg 8 Gm Inhaler INHALE 2 puff RQ4H PRN Administration Shortness of Breath Benztropine Mesylate 1 mg 04/01/21 15:35 04/14/21 10:09 Benztropine Mesylate 1 Mg Tablet PO 1 mg BID PRN Administration EPS Clonazepam 0.5 mg 03/02/21 21:41 04/13/21 19:49 Clonazepam 0.5 Mg Tablet PO 0.5 mg DAILY PRN Administration SEVERE anxiety/panic Diphenhydramine HCl 50 mg 03/19/21 13:32 Diphenhydramine Hcl 25 Mg Tablet PO Q8H PRN EPS, Dystonia Haloperidol 5 mg 04/03/21 11:20 Haloperidol 5 Mg Tablet PO BID PRN psychosis, agitation Haloperidol 5 mg 04/05/21 09:00 04/14/21 10:09 Haloperidol 5 Mg Tablet PO 5 mg DAILY DUSTIN Administration Haloperidol 2 mg 04/04/21 21:00 04/13/21 19:45 Haloperidol 1 Mg Tablet PO 2 mg BEDTIME DUSTIN Administration Lamotrigine 25 mg 03/26/21 21:00 04/13/21 19:44 Lamotrigine 25 Mg Tablet PO 25 mg BEDTIME DUSTIN Administration Lorazepam 1 mg 03/19/21 13:33 04/10/21 20:19 Lorazepam 1 Mg Tablet PO 1 mg Q6H PRN Administration anxiety, dystonia Magnesium Hydroxide 30 ml 02/27/21 20:08 04/13/21 12:04 Milk Of Magnesia 30 Ml Oral.Susp PO 30 ml DAILY PRN Administration Constipation Melatonin 6 mg 02/27/21 20:09 04/13/21 19:46 Melatonin 3 Mg Tablet PO 6 mg BEDTIME PRN Administration Insomnia Multi-Ingred Cream/Lotion/Oil/Oint 1 appl 03/03/21 19:30 Mineral Oil/Petrolatum,White 106 Gm Tube TOPICAL TID PRN dry skin Nicotine Polacrilex 4 mg 02/27/21 20:08 04/14/21 11:04 Nicotine Polacrilex 2 Mg Gum BUCCAL 4 mg Q2H PRN Administration Nicotine Cravings Patient Own Med 1 each 03/04/21 09:00 04/14/21 10:10 Compound W Strips PO Not Given DAILY DUSTIN Patient Own 1 each 03/13/21 10:30 04/14/21 10:10 Medication ( PO 1 each Norgestimat/Eth Est DAILY DUSTIN Administration 0.25/0.035 Tablet) Topiramate 25 mg 04/02/21 09:00 04/14/21 10:09 Topiramate 25 Mg Tablet PO 25 mg DAILY DUSTIN Administration Trazodone HCl 150 mg 02/27/21 20:09 04/13/21 19:45 Trazodone Hcl 50 Mg Tablet PO 150 mg BEDTIME PRN Administration Insomnia Allergies Allergies Allergy/AdvReac Type Severity Reaction Status Date / Time risperidone [From Risperdal] Allergy Mild gain weight Verified 02/24/21 01:27 aripiprazole [Abilify] Allergy Unknown gain weight Verified 02/24/21 01:27 paliperidone AdvReac dystonia Verified 02/24/21 01:27 Assessment & Plan Assessment & Plan (1) Schizoaffective disorder, bipolar type: Status: Acute Code(s): F25.0 - Schizoaffective disorder, bipolar type Assessment and Plan: Continue Haldol, Lamictal, Topamax, Benztropine prn. Declines Haldol titration to 5 mg bid. Lamictal due for titrtion 04/16. [facility] Latuda[facility]. Haldol effective thus far. Consider cross titration after a period of stability. Mouth checks Education, alliance building. Assessment and Plan: Continue current plan. Greater than 50% of the session was spent on counseling and/or coordination of care Reason for contiued inpatient stay Substantial Risk for: harm to self and inability to function
[2021-04-14 18:00] VITALS: BP 104/56; PULSE 100; RESP 18; TEMP 36.6; O2SAT 100
[2021-04-14] MEDS: Melatonin 3 MG TABLET 6 MG PO (20:22)
[2021-04-14] MEDS: HaloperidoL 1 MG TABLET 2 MG PO (20:22)
[2021-04-14] MEDS: traZODone HCL 50 MG TABLET 150 MG PO (20:22)
[2021-04-14] MEDS: lamoTRIgine 25 MG TABLET PO (20:22)
[2021-04-14] MEDS: clonazePAM 0.5 MG TABLET PO (20:25)
[2021-04-15] MEDS: Benztropine Mesylate 1 MG TABLET PO (09:53)
[2021-04-15] MEDS: HaloperidoL 5 MG TABLET PO (09:53)
[2021-04-15] MEDS: Topiramate 25 MG TABLET PO (09:53)
[2021-04-15] MEDS: Nicotine Polacrilex 2 MG GUM 4 MG BUCCAL ×5 (09:59→20:31)
--- NOTE | 2021-04-15 12:27 | HO.PSYCHPN ---
Subjective Subjective Date of Service: 04/15/21 Reason For Visit: Psychosis Subjective Notes: Conditional Voluntary Healthcare Proxy: No Guardianship: Yes Medical Problems Affecting Mental Status: No Interim History: Meeting with pt, parents, Isabella Flores [facility], Juany Grant [facility], and Eliezer Flood [facility] and Crisis to review discharge plans. VNA was scheduled to assist pt with medications, crisis plan was reviewed along with aftercare. Medications were reviewed with out pt prescriber and trials in hospital reviewed. Pt feeling prepared to discharge and pleased with her progress. Medication Compliance: Yes Side effects from medications: No Attending Groups: Intermittent Review of Systems Acute medical concerns: No Medical Review of Systems: unchanged Review of Systems Psychiatric: Reports no additional psychiatric complaints and Reports anxiety Mental Status Exam Mental Status Exam Patient Appearance: Appropriate Patient Orientation: Person, Place, Time and Situation Level of Consciousness: Alert Patient Behavior: Appropriate, Talkative (focused on details of her plan of care for out patient), Cooperative and Good Eye Contact Mood Description: Anxious and Apprehensive Affect Description: Anxious and Apprehensive Patient Cognition Impaired: No Ability to Follow Directions: Good Speech Pattern: Spontaneous Speech Memory Description: Intact Hallucinations: None Delusions: Not Present Thought Process: Goal Oriented Thought Content: positive for Goal Oriented Judgement: Good Diagnostics Vital Signs (24Hr): Vital Signs - 24 hr 04/14/21 18:00 Temperature 97.8 F Pulse Rate 100 Respiratory Rate 18 Blood Pressure 104/56 L Pulse Oximetry 100 Body Mass Index 25.7 Labs Results: 04/16/21 08:09 04/16/21 08:09 Imaging Radiology Impressions: ITS Impressions Brain MRI 03/27/21 14:04 IMPRESSION: Normal limited MRI of the brain with motion artifacts. Medications Medications Current Medications Generic Name Dose Route Start Last Admin Trade Name Freq PRN Reason Stop Dose Admin Acetaminophen 650 mg 02/27/21 20:08 03/30/21 22:13 Acetaminophen 325 Mg Tablet PO 650 mg Q6H PRN Administration Headache/Pain Mild Scale (1-3) Al Hydroxide/Mg Hydroxide 30 ml 02/27/21 20:08 Magnesium Hydrox/Alum Hydrox 30 Ml Oral.Susp PO Q6H PRN Heartburn/Nausea Albuterol Sulfate 2 puff 03/02/21 21:23 03/15/21 09:51 Albuterol Sulfate 90 Mcg 8 Gm Inhaler INHALE 2 puff RQ4H PRN Administration Shortness of Breath Benztropine Mesylate 1 mg 04/01/21 15:35 04/15/21 09:53 Benztropine Mesylate 1 Mg Tablet PO 1 mg BID PRN Administration EPS Clonazepam 0.5 mg 03/02/21 21:41 04/14/21 20:25 Clonazepam 0.5 Mg Tablet PO 0.5 mg DAILY PRN Administration SEVERE anxiety/panic Diphenhydramine HCl 50 mg 03/19/21 13:32 Diphenhydramine Hcl 25 Mg Tablet PO Q8H PRN EPS, Dystonia Haloperidol 5 mg 04/03/21 11:20 Haloperidol 5 Mg Tablet PO BID PRN psychosis, agitation Haloperidol 5 mg 04/05/21 09:00 04/15/21 09:53 Haloperidol 5 Mg Tablet PO 5 mg DAILY DUSTIN Administration Haloperidol 2 mg 04/04/21 21:00 04/14/21 20:22 Haloperidol 1 Mg Tablet PO 2 mg BEDTIME DUSTIN Administration Lamotrigine 25 mg 03/26/21 21:00 04/14/21 20:22 Lamotrigine 25 Mg Tablet PO 25 mg BEDTIME DUSTIN Administration Lorazepam 1 mg 03/19/21 13:33 04/10/21 20:19 Lorazepam 1 Mg Tablet PO 1 mg Q6H PRN Administration anxiety, dystonia Magnesium Hydroxide 30 ml 02/27/21 20:08 04/13/21 12:04 Milk Of Magnesia 30 Ml Oral.Susp PO 30 ml DAILY PRN Administration Constipation Melatonin 6 mg 02/27/21 20:09 04/14/21 20:22 Melatonin 3 Mg Tablet PO 6 mg BEDTIME PRN Administration Insomnia Multi-Ingred Cream/Lotion/Oil/Oint 1 appl 03/03/21 19:30 Mineral Oil/Petrolatum,White 106 Gm Tube TOPICAL TID PRN dry skin Nicotine Polacrilex 4 mg 02/27/21 20:08 04/15/21 12:22 Nicotine Polacrilex 2 Mg Gum BUCCAL 4 mg Q2H PRN Administration Nicotine Cravings Patient Own Med 1 each 03/04/21 09:00 04/15/21 09:53 Compound W Strips PO Not Given DAILY DUSTIN Patient Own 1 each 03/13/21 10:30 04/15/21 09:53 Medication ( PO 1 each Norgestimat/Eth Est DAILY DUSTIN Administration 0.25/0.035 Tablet) Topiramate 25 mg 04/02/21 09:00 04/15/21 09:53 Topiramate 25 Mg Tablet PO 25 mg DAILY DUSTIN Administration Trazodone HCl 150 mg 02/27/21 20:09 04/14/21 20:22 Trazodone Hcl 50 Mg Tablet PO 150 mg BEDTIME PRN Administration Insomnia Allergies Allergies Allergy/AdvReac Type Severity Reaction Status Date / Time risperidone [From Risperdal] Allergy Mild gain weight Verified 02/24/21 01:27 aripiprazole [Abilify] Allergy Unknown gain weight Verified 02/24/21 01:27 paliperidone AdvReac dystonia Verified 02/24/21 01:27 Assessment & Plan Assessment & Plan (1) Schizoaffective disorder, bipolar type: Status: Acute Code(s): F25.0 - Schizoaffective disorder, bipolar type Assessment and Plan: Continue current regime Discharge 04/16/21. Assessment and Plan: Continue current plan. Greater than 50% of the session was spent on counseling and/or coordination of care Patient educated on: therapeutic strategies Informed Consent: understands and further education needed Reason for contiued inpatient stay Substantial Risk for: stable for discharge
[2021-04-15 16:20] VITALS: BP 100/59; PULSE 104; TEMP 36.9
[2021-04-15] MEDS: Melatonin 3 MG TABLET 6 MG PO (20:28)
[2021-04-15] MEDS: lamoTRIgine 25 MG TABLET PO (20:28)
[2021-04-15] MEDS: HaloperidoL 1 MG TABLET 2 MG PO (20:28)
[2021-04-15] MEDS: traZODone HCL 50 MG TABLET 150 MG PO (20:29)
[2021-04-15] MEDS: clonazePAM 0.5 MG TABLET PO (20:31)
[2021-04-16 06:00] VITALS: BP 114/72; PULSE 110; TEMP 36.2; O2SAT 97
[2021-04-16 08:16] LABS: MANUAL DIFF FLAG NO
[2021-04-16 08:19] LABS: Basophils Percent Auto 0.5 % (0-2); Eosinophils Absolute Auto 0.2 X10*3/uL (0.0-0.4); Eosinophils Percent Auto 2.6 % (0-4); Hematocrit 35.1 % (37-47); Hemoglobin 12.1 g/dl (12.0-16.0); Imm Gran Abs Auto 0.01 X10*3/uL (0.00-0.03); Imm Gran Pct Auto 0.2 % (0.0-0.4); Lymphocytes Absolute Auto 1.8 X10*3/uL (1.2-4.9); Lymphocytes Percent Auto 31.8 % (20-40); Mean Corpuscular HGB Conc 34.5 g/dl (31.0-35.0); Mean Corpuscular Hemoglobin 32.3 pg (27.0-33.0); Mean Corpuscular Volume 93.6 fL (80-98); Mean Platelet Volume 10.8 fL (9.4-12.3); Monocytes Absolute Auto 0.4 X10*3/uL (0.1-1.2); Monocytes Percent Auto 6.8 % (2-11); Neutrophils Absolute Auto 3.3 X10*3/uL (2.0-8.3); Neutrophils Percent Auto 58.1 % (45-73); Platelet Count 214 X10*3/uL (160-400); Red Blood Count 3.75 X10*6/uL (4.20-5.50); Red Cell Distribution Width 12.4 % (11.0-16.0); White Blood Count 5.7 X10*3/uL (4.8-10.8)
[2021-04-16 08:51] LABS: Alanine Aminotransferase 12 U/L (0-31); Albumin Level 4.2 g/dL (3.5-5.0); Alkaline Phosphatase 29 U/L (39-117); Anion Gap 12 (12-20); Aspartate Amino Transferase 11 U/L (5-31); Bilirubin Total 0.5 mg/dL (0.0-1.0); Blood Urea Nitrogen 16 mg/dL (9-16); Calcium 9.6 mg/dL (8.4-10.2); Carbon Dioxide 25 mmol/L (22-29); Chloride 107 mmol/L (96-108); Creatinine Clr Calc Pharmacy 103.7; Estimated Glomerular Filt Rate > 60; Glucose Random 92 mg/dL (60-115); Potassium 4.7 mmol/L (3.3-5.1); Sodium 139 mmol/L (135-145); Total Protein 6.5 g/dL (6.5-8.0)
[2021-04-16] MEDS: Nicotine Polacrilex 2 MG GUM 4 MG BUCCAL ×2 (08:58→11:13)
--- NOTE | 2021-04-16 09:00 | ECG_ITS ---
Test Reason : ANTIPSYCHOTIC RX Blood Pressure : / mmHG Vent. Rate : 057 BPM Atrial Rate : 057 BPM P-R Int : 146 ms QRS Dur : 086 ms QT Int : 420 ms P-R-T Axes : 000 122 149 degrees QTc Int : 408 ms Suspect limb lead reversal, interpretation assumes no reversal Right axis deviation Cannot rule out Inferior infarct , age undetermined Abnormal ECG When compared with ECG of 19-MAR-2021 10:05, QRS axis Shifted right Minimal criteria for Inferior infarct are now Present Referred By: Zee Washington Electronically Signed By:NAZANIN REINOSO
[2021-04-16] MEDS: Topiramate 25 MG TABLET PO (09:02)
[2021-04-16] MEDS: HaloperidoL 5 MG TABLET PO (09:02)
[2021-04-16] MEDS: Benztropine Mesylate 1 MG TABLET PO (09:02)
--- NOTE | 2021-04-16 16:10 | PM.PSYDC ---
DS: Providers Provider Date of Service: 04/16/21 Date of admission: 02/27/21 19:56 Date of discharge: 04/16/21 Primary care physician: Latha Caputo NP Admitting clinician: Zee Washington Attending physician on admission: Zeferino Gentile Consults: 03/20/21 16:57 Consult to Neurology Routine Consulting Provider: [facility] Reason for consultation: Evaluation of headaches Has provider been notified: No Attending physician on discharge: Zeferino Gentile Discharging clinician: Zee Washington DS: Diagnosis Discharge Diagnosis (1) Schizoaffective disorder, bipolar type: Status: Acute DS: Medications Discharge Medications Home Medications: Previous Rx's Medication Instructions Recorded albuterol sulfate 90 mcg/actuation 2 puff INHALATION RQ4H PRN #1 g 04/16/21 aerosol inhaler (Ventolin HFA) benztropine 1 mg tablet 1 mg PO BID PRN #60 tab 04/16/21 clonazepam 0.5 mg tablet 0.5 mg PO DAILY PRN #30 tab 04/16/21 haloperidol 1 mg tablet 2 mg PO BEDTIME #30 tab 04/16/21 haloperidol 5 mg tablet 5 mg PO BID PRN #60 tab 04/16/21 haloperidol 5 mg tablet 5 mg PO DAILY #30 tab 04/16/21 lamotrigine 25 mg tablet 25 mg PO BEDTIME #30 tab 04/16/21 melatonin 3 mg tablet 6 mg PO BEDTIME PRN #30 tab 04/16/21 multivitamin (Daily-Nevaeh) 1 tab PO DAILY #30 tab 04/16/21 topiramate 25 mg tablet 25 mg PO DAILY #30 tab 04/16/21 trazodone 50 mg tablet 150 mg PO BEDTIME PRN #90 tab 04/16/21 Mental Status Exam Mental Status Exam Patient Appearance: Appropriate Patient Orientation: Person, Place, Time and Situation Level of Consciousness: Alert Patient Behavior: Appropriate, Talkative and Good Eye Contact Mood Description: Flat Affect Description: Flat Patient Cognition Impaired: No Ability to Follow Directions: Good Speech Pattern: Spontaneous Speech Memory Description: Episodic Impaired Hallucinations: None Delusions: Not Present Thought Process: Distracted Thought Content: positive for [place] and positive for Circumstantial Judgement: Fair Data Data Completed and Pending Completed studies during hospitalization [Text1]: 04/16/21 04/16/21 08:09 08:09 WBC 5.7 RBC 3.75 L Hgb 12.1 Hct 35.1 L MCV 93.6 MCH 32.3 MCHC 34.5 RDW 12.4 Plt Count 214 MPV 10.8 Immature Gran % (Auto) 0.2 Neut % (Auto) 58.1 Lymph % (Auto) 31.8 [place] % (Auto) 6.8 Eos % (Auto) 2.6 Baso % (Auto) 0.5 Lymph # (Auto) 1.8 [place] # (Auto) 0.4 Eos # (Auto) 0.2 Baso # (Auto) 0.0 Abs Immat Gran (auto) 0.01 Absolute Neuts (auto) 3.3 Absolute Nucleated RBC 0.000 Nucleated RBC % (auto) 0.0 Sodium 139 Potassium 4.7 Chloride 107 Carbon Dioxide 25 Anion Gap 12 BUN 16 D Creatinine 0.82 Estim Creat Clear Calc 103.7 Estimated GFR > 60 Random Glucose 92 Calcium 9.6 Total Bilirubin 0.5 AST 11 ALT 12 Alkaline Phosphatase 29 L D Total Protein 6.5 Albumin 4.2 Imaging Diagnostic Imaging Impressions Brain MRI 03/27/21 14:04 IMPRESSION: Normal limited MRI of the brain with motion artifacts. DS: Summary Hospital Course Hospital Course: Desi is a 20 yo female with a history of PTSD, Cannabis use, depression with psychotic features. Pt admitted 01/29/21 - 02/13/21. Upon discharge, pt chose to live with her grandmother and was minimally compliant with medications. Pt reported cocaine use 02/20 and became agitated, paranoid, and aggressive, targeting grandmother. Pt evaluated in the ER and discharged by crisis services. Upon discharge pt called a friend. He paid for a ride to his home in [facility]. Pt, upon arrival she believes she saw several human bones in the home. As a result she ran down the highway where a good [employer] gave her a ride to [facility]. The CARE team facilitated a transfer back to [facility] where pt signed a conditional voluntary for admission. Pt's mother approached the court and requested and received temporary guardianship for review April 2021. Pt accepted medication trials which initially were minimal and met with her hesitation as her experience with medications had been poor. Geodon was retrialed and appeared to have no real effect at 60 mg daily. Olanzapine was effective, however, Desi gained 13 pounds in one week. Haldol at 7 mg daily, divided 2mg a.m. and 5 mg hs was helpful and tolerated. Lamictal was initiated and will need to be titrated further in out pt. Topamax 25 mg was initiated to assist with appetite management. Benztropine was also added. Several meetings were held with Desi and her parents. Her grandmother was involved in one meeting as well. Desi and her mother met with team, Vicente, and [facility] for aftercare planning. She will be involved with [facility] PHP program within the next few weeks, [facility] for psychopharmacology, [facility] for psychotherapy, [facility], VNA for assist with her medications and [facility]. Time spent discussing smoking cessation with patient: 3 to 10 minutes Status at Discharge Cognitive/behavioral status at discharge: Alert, oriented, non-suicidal, non-psychotic, excited to be returning to her family and home. Functional status at discharge: independent ambulation Time Spent with Patient Time attestation: Total time spent providing and/or coordinating discharge services:60 Time spent: Greater than 30 minutes Discharge Plan Discharge Anticipated Discharge Date/Time: 04/16/21 12:00 Patient Disposition: Home, Self-Care Discharge Diagnosis: Schizoaffective Disorder, Bipolar Type Referrals: Psych Prescriber: Mikayla Harrington ([facility]) [Other] - 04/22/21 2:00 pm (Telehealth/Virtual) Partial Hospitalization Program (PHP):[facility] [Other] - 04/18/21 10:00 am (Virtual- you will receive an email to confirm appointment and will receive second email with link to join intake appointment If using a tablet or smart phone you must first download the [employer] leonides; if using a laptop or desktop no need to download the leonides) PREP Program: Mimi Guy ([employer] [facility]) [Other] - 1 Week (*Call when starting last week of PHP to start process of enrolling in program; they could not save spots but Mimi is aware you will be calling *Virtual- therapy once a week for an hour; two to three groups in afternoons on , & ) Therapist: Lopez Melchor ([facility]) [Other] - 04/17/21 11:00 am (Telehealth ) [facility] Seat Coverer: Juany Grant ([facility]) [Other] - 1 Week (-Juany will be your contact until you are assigned to an ongoing casework supervisor. ) VNA: [facility] [Other] - 04/17/21 1:00 pm (*The nurse will call you before coming*) Latha Caputo NP [Primary Care Provider] - 04/19/21 9:45 am (in house) Discharge Medications: New haloperidol 5 mg Tablet 5 mg PO DAILY Qty: 30 RF: 0 haloperidol 5 mg Tablet 5 mg PO BID PRN (Reason: psychosis, agitation) Qty: 60 RF: 0 trazodone 50 mg Tablet 150 mg PO BEDTIME PRN (Reason: Insomnia) Qty: 90 RF: 0 clonazepam 0.5 mg Tablet 0.5 mg PO DAILY PRN (Reason: SEVERE anxiety/panic) Qty: 30 RF: 0 haloperidol 1 mg Tablet 2 mg PO BEDTIME Qty: 30 RF: 0 topiramate 25 mg Tablet 25 mg PO DAILY Qty: 30 RF: 0 melatonin 3 mg Tablet 6 mg PO BEDTIME PRN (Reason: Insomnia) Qty: 30 RF: 0 lamotrigine 25 mg Tablet 25 mg PO BEDTIME Qty: 30 RF: 0 benztropine 1 mg Tablet 1 mg PO BID PRN (Reason: EPS) Qty: 60 RF: 0 albuterol sulfate [Ventolin HFA] 90 mcg/actuation Hfa Aerosol Inhaler 2 puff inhalation RQ4H PRN (Reason: Shortness Of Breath) Qty: 1 RF: 0 Continued multivitamin [Daily-Nevaeh] Tablet 1 tab PO DAILY Qty: 30 RF: 0 Discontinued trazodone 50 mg Tablet 150 mg PO BEDTIME PRN (Reason: Insomnia) Qty: 30 RF: 1 ziprasidone HCl 20 mg Capsule 20 mg PO DAILY Qty: 15 RF: 1 ziprasidone HCl 40 mg Capsule 40 mg PO BEDTIME Qty: 15 RF: 1 benztropine 1 mg Tablet 1 mg PO BID Qty: 30 RF: 1 prazosin 2 mg Capsule 2 mg PO BEDTIME Qty: 15 RF: 1 melatonin 3 mg capsule 6 mg PO BEDTIME PRN (Reason: sleep) Qty: 30 RF: 1 Discharge Orders: Discharge Order (Routine); Ordered 04/16/21 Ordered By: Zee Washington Diet: advance to usual diet Activity on Discharge: As tolerated Stand Alone Forms: Patient Portal Discharge page, Community Support Care Plan Goals: Mood stabilization Health Concerns: Schizoaffective Disorder, Bipolar Type Plan of Treatment: Attend appointments as scheduled Take medications as directed Appt with Susana Koenig, [facility], Thursday May 13, 2021 at 9am Assessment: Alert, non-suicidal, non-psychotic, mood and affect constricted. Discharge Date/Time: 04/16/21 12:30
== END 2021-04-16 12:30 | disposition home or self-care (01) | DRG 750 ==
PROVIDERS: Admitting Provider Psychiatry & Neurology Psychiatry; PCP Nurse Practitioner Pediatrics; Visit Provider Clinical Nurse Specialist Psychiatric/Mental Health, Adult
DX: F25.0 Schizoaffective disorder, bipolar type (principal); F17.210 Nicotine dependence, cigarettes, uncomplicated; Z71.6 Tobacco abuse counseling; Z79.899 Other long term (current) drug therapy
CPT/HCPCS: 36415; 70551; 80053; 83540; 84702; 85025; 93005

== ENCOUNTER 2021-05-02 08:00 | Outpatient (RCR) | payer OTHER, SELFPAY ==
--- NOTE | 2021-04-19 10:03 | PC.NURSE ---
The clients mother, Samina Sheffield, called to inform us the client will not be in today due to appointment this am with her physician. She states that Desi will be in on Thursday
--- NOTE | 2021-04-22 14:42 | PC.NURSE ---
Case opened in treatment team
--- NOTE | 2021-04-22 15:58 | HO.PS.ADMBH ---
HPI Chief Complaint: Schizoaffective D/o, Bipolar Type Sources of Information: patient interviewed, chart reviewed and crisis/core team assessment reviewed Additional Sources of Information: mother was present HPI Subjective Notes: Dejesus Warning Healthcare Proxy: Yes Guardianship: Yes Medical Problems Affecting Mental Status: No Narrative: Desi was referred as a step-down from [facility] [place] [facility] [place] She reports that she has been experiencing depression, secondary to cocaine addiction for the past year. Patient has had several recent inpatient levels of care, including one in January 2021, and most recently 02/27/21-04/16/21, due to symptoms of psychosis. Her mother has obtained guardianship, and was present during interview. Patient did chacho verbal permission for her mother to stay during interview. Patient and mother report that patient had been doing very well in school, and with sports up until approximately 2017. At this time her boyfriend had left graduated school and moved on, and mother describes patient having psychiatric difficulties since then. She reports patient has been hospitalized 13 times since 2017. Patient was raised by her mother and stepfather, who has adopted her in 2008. She also has a younger sister who lives with her. She was also raised with her stepfather's 3 other children. All developmental milestones were met as expected. 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 She reports that in 2017, she was using marijuana, alcohol, cocaine, hallucinogens. Her boyfriend graduated and ended relationship. With this stressor, her mental health quickly declined, and she sought treatment. She first worked with a therapist, and then required further extensive treatment, including IPLOC, PHP, and medications. Med trials include risperidone, Abilify, Vraylar, invega. Patient and mother report side effects such as weight gain and EPS with various antipsychotics. Patient denies any type of thoughts of harm to self or others at this time. She is hoping to participate in PHP, and to gain structure in her day along with learning coping skills. Patient and her mother are concerned regarding current antipsychotic medication, as she is feeling the urge to raise her arms, and is not sure if this could be some type of dystonic reaction. Patient also stated she is not willing to make any medication changes at this time regarding titration of meds such as Lamictal. Patient does have appointment this afternoon with outpatient provider, and will discuss any potential medication changes with provider at that time. Past Psychiatric History: IP: 13 times since 2017 PHP: Once at [facility], and once at [facility] OP: KAREN Harrington APRN-psychopharmacology ICC: Aleena Diaz FS&T: Janae Gross Medical Evaluation Reviewed: Yes COUNTS INCLUDE 234 BEDS AT THE [facility] Medical History (Updated 03/21/21 @ 13:52 by Johana Amaro MD) Asthma Bipolar 1 disorder Cannabis use disorder, moderate, dependence Concussion Depression Depression, major, recurrent, severe with psychosis Dystonia Fingers fractured Schizoaffective disorder, bipolar type Family History: mother has bipolar disorder maternal great grandparents both ETOH. Biological father addict. Social History: currently not employed. Lives with parents, and younger sister. Graduated 01/27/21 from high school at [employer]. 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 Substance History: ETOH, hallucinogens, marijuana, cocaine Trauma History: Affirms Meds/Allergies Allergies Allergies Allergy/AdvReac Type Severity Reaction Status Date / Time risperidone [From Risperdal] Allergy Mild gain weight Verified 04/22/21 14:19 aripiprazole [Abilify] Allergy Unknown gain weight Verified 04/22/21 14:20 cariprazine [From Vraylar] AdvReac Verified 04/22/21 14:18 paliperidone AdvReac dystonia Verified 02/24/21 01:27 Mental Status Exam Mental Status Exam Narrative: Well-developed, appropriately groomed female, in no apparent distress. Appears stated age. Alert and oriented x4. Patient was somewhat distracted during interview, was looking for her computer home appraiser and moving about the room at times. No involuntary movements noted, including any type of raising arms. Motor activity restless. Ambulation appeared to be within normal limits, normal gait and stride. Patient Appearance: Appropriate Patient Orientation: Person, Place, Time and Situation Level of Consciousness: Appropriate, Sedated (Mother reports she believes the daytime dose of Haldol is too high, and thus patient is slightly sedated.) and Restless Patient Behavior: Appropriate, Cooperative, Anxious and Good Eye Contact Mood Description: Appropriate and Depressed Affect Description: Appropriate, Constricted, Blunted and Flat Patient Cognition Impaired: No Ability to Follow Directions: Excellent Speech Pattern: Clear and Coherent Memory Description: Intact Hallucinations: None Delusions: Not Present Thought Process: Intact and Distracted (Distracted at times, was looking for computer home appraiser during encounter.) Thought Content: positive for Intact and positive for [place] Depressive Symptoms: Increased Anxiety, Diff. Making Decisions, Loss of Int. in Activity and Increased Fatigue Judgement: Fair Telehealth Telehealth Location of provider rendering services: practice address Location of patient: address on file Patient Identification confirmed using: Name, : Yes Telehealth method: video Patient verbally consented to treatment: Yes Patient verbally consented to billing insurance company: Yes Patient informed of any privacy concerns related to visit: Yes Time spent with patient (mins): 45 Assessment & Plan Assessment & Plan (1) Schizoaffective disorder, bipolar type: Status: Acute Code(s): F25.0 - Schizoaffective disorder, bipolar type Assessment and Plan: Patient and mother report patient is currently taking medications as prescribed upon discharge from hospital, including Cogentin for EPS, clonazepam, haloperidol, lamotrigine, melatonin, Topamax, and trazodone. Both patient and mother are concerned regarding haloperidol, and consider making adjustments. Patient is not currently interested in increasing lamotrigine at this time, but will discuss with outpatient provider during her visit. (2) Depression, major, recurrent, severe with psychosis: Status: Acute Code(s): F33.3 - Major depressive disorder, recurrent, severe with psychotic symptoms Assessment and Plan: Patient denies any thoughts of harm to self or others at this time. Patient has reported that she still feels depressed, and is hoping symptoms will continue to subside. (3) Cannabis use disorder, moderate, dependence: Status: Acute Code(s): F12.20 - Cannabis dependence, uncomplicated Assessment and Plan: Patient did not engage in discussion regarding substance use during this encounter. Assessment and Plan: 1. Continue medications as prescribed. Patient to see outpatient provider later this afternoon, to update PHP regarding any medication changes. 2. Follow-up with patient as per protocol. Patient educated on: diagnosis, medication risk/benefits, substance abuse and therapeutic strategies Guardian/Caregiver educated on: diagnosis, medication risk/benefits and substance abuse Informed Consent: understands Reason for continued partial hosp. stay Substantial Risk for: inability to function, rapid decompensation and med/psych decompensation Certification I certify that partial hospital treatment is medically necessary due to the symptoms and problems resulting from the patient's mental illness and the failure to treat the patient at the partial hospital level of care would likely result in the patient requiring inpatient psychiatric care which could not be prevented at a less intensive level of care.
[2021-04-23 08:28] VITALS: BMI 27.4
--- NOTE | 2021-04-23 08:29 | PC.ADMIT ---
Patient is a 20 year old female who was referred by [facility] where she was admitted from 01/29-02/13 and readmitted from 02/28-04/16 d/t mood liability, acute psychosis, AH, and substance use. Unclear if patient was taking her medications as prescribed at the time of re admittance to the hospital or if using substances. Patient has a history of depression and psychosis along with history of using marijuana and cocaine. [place] [facility] [place] [facility] [place] a continuation of stabilization of symptoms. Patient has a diagnosis of Schizoaffective d/o, Bipolar type. See Integrated Assessment for more information. Patient reports AH have improved as they are not so severe. Patient reports that she is medication compliant and a VNA helps her with her medications. She also reports that she has not used any substances since a month and a half ago. Reports feeling depressed and alone. Wants to learn coping strategies. Spoke to patients mother who stated she was granted temporary guardianship of her daughter on March 05, [address] date for permanent guardianship on May 10, 2021. Obtained verbal consent to release information to patients providers from patients mother and from patient. Patient is alert and oriented x4. Calm and cooperative. Presents with depressed mood, bunted affect. No overt delusions. Medications reconciled with patient, patient's pharmacy, and per /5 d/c records. Patient has an appointment with her prescriber today. Patient and mother report patient experiencing possible EPS symptoms as patient stated she feels like lifting her . Patient and mother stated they will discuss symptoms with prescriber at appointment today and will update me if there is any medication changes. Mar Palacios NP aware.
--- NOTE | 2021-04-23 09:41 | PC.NURSE ---
I reviewed clients treatment plan with client and her mother Samina. In addition to treatment goal and discharge date of 05/07/21 we discussed my speaking with Samina every other day to update her on clients progress.
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
--- NOTE | 2021-05-02 10:58 | PC.NURSE ---
I called the clients mother Samina when she was not in the second group. We discussed Jesus ongoing delusional thoughts and auditory hallucinations. I informed Samina that Jesus endorses having delusional thoughts this morning. We discussed interventions and possible after care plans. Samina will be calling [facility] to meet for the first time with a continuous pillowcase cutter.
--- NOTE | 2021-05-02 11:23 | PC.NURSE ---
I talked with the clients mother she has called crisis to have Desi assessed.
--- NOTE | 2021-05-02 15:25 | PC.NURSE ---
I spoke with the client's mother. The client is going to be admitted inpatient and they are waiting for a bed in [facility].
== END 2021-05-06 07:18 | disposition home or self-care (01) ==
LOC: HO.PHPA 08:00
PROVIDERS: PCP Nurse Practitioner Pediatrics; Visit Provider Psychiatry & Neurology Psychiatry
DX: F25.0 Schizoaffective disorder, bipolar type (principal); F33.3 Major depressive disorder, recurrent, severe with psychotic symptoms; F12.20 Cannabis dependence, uncomplicated; Z79.899 Other long term (current) drug therapy
CPT/HCPCS: 90791; 90853

== ENCOUNTER 2021-05-02 12:16 | Inpatient (IN) | payer OTHER, SELFPAY ==
[2021-05-02 12:24] VITALS: BP 105/66; PULSE 99; RESP 16; TEMP 37.2; O2SAT 98; BMI 27.4
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
[2021-05-02 13:35] LABS: Basophils Percent Auto 0.5 % (0-2); Eosinophils Absolute Auto 0.1 X10*3/uL (0.0-0.4); Eosinophils Percent Auto 0.8 % (0-4); Hematocrit 36.7 % (37-47); Hemoglobin 12.6 g/dl (12.0-16.0); Imm Gran Abs Auto 0.03 X10*3/uL (0.00-0.03); Imm Gran Pct Auto 0.3 % (0.0-0.4); Lymphocytes Absolute Auto 1.8 X10*3/uL (1.2-4.9); Lymphocytes Percent Auto 19.9 % (20-40); MANUAL DIFF FLAG NO; Mean Corpuscular HGB Conc 34.3 g/dl (31.0-35.0); Mean Corpuscular Hemoglobin 31.9 pg (27.0-33.0); Mean Corpuscular Volume 92.9 fL (80-98); Mean Platelet Volume 10.6 fL (9.4-12.3); Monocytes Absolute Auto 0.4 X10*3/uL (0.1-1.2); Monocytes Percent Auto 4.8 % (2-11); Neutrophils Absolute Auto 6.5 X10*3/uL (2.0-8.3); Neutrophils Percent Auto 73.7 % (45-73); Platelet Count 215 X10*3/uL (160-400); Red Blood Count 3.95 X10*6/uL (4.20-5.50); Red Cell Distribution Width 11.9 % (11.0-16.0); White Blood Count 8.8 X10*3/uL (4.8-10.8)
[2021-05-02 13:39] LABS: UPreg QC Valid YES; Urine Pregnancy NEGATIVE (NEGATIVE)
--- NOTE | 2021-05-02 13:46 | PHA.MEDREC ---
Pharmacy Consult ? Medication Reconciliation Pharmacy has completed the medication reconciliation. There are no remarkable issues for provider's attention. Bhavya Ayon, LeeD
[2021-05-02 13:50] VITALS: BP 107/68; PULSE 82; TEMP 37.4; O2SAT 97
[2021-05-02 13:52] LABS: Ethanol < 10 mg/dL
[2021-05-02 13:54] LABS: Amphetamine Screen Urine Not Detected (Not Detect); Barbiturates, Urine Not Detected (Not Detect); Benzodiazepines Screen Urine Not Detected (Not Detect); Cannabinoid Screen Urine Not Detected (Not Detect); Cocaine Screen Urine Not Detected (Not Detect); Fentanyl, urine Not Detected (Not Detect); Opiate Screen Urine Not Detected (Not Detect); Phencyclidine Screen Urine Not Detected (Not Detect)
[2021-05-02 13:54] LABS: COVID-19 Test Negative (Negative); IDNOW Serial# 9DD0AD1C
[2021-05-02 13:55] LABS: Alanine Aminotransferase 18 U/L (0-31); Albumin Level 4.6 g/dL (3.5-5.0); Alkaline Phosphatase 40 U/L (39-117); Anion Gap 13 (12-20); Aspartate Amino Transferase 19 U/L (5-31); Bilirubin Direct < 0.2 mg/dL (0.0-0.5); Bilirubin Total 0.3 mg/dL (0.0-1.0); Blood Urea Nitrogen 10 mg/dL (9-16); Calcium 10.1 mg/dL (8.4-10.2); Carbon Dioxide 27 mmol/L (22-29); Chloride 102 mmol/L (96-108); Creatinine Clr Calc Pharmacy 101.7; Estimated Glomerular Filt Rate > 60; Glucose Random 112 mg/dL (60-115); Potassium 4.3 mmol/L (3.3-5.1); Sodium 138 mmol/L (135-145); Total Protein 6.9 g/dL (6.5-8.0)
--- NOTE | 2021-05-02 15:04 | PC.NURSE ---
mom taking home all of patients home meds
[2021-05-02] MEDS: clonazePAM 0.5 MG TABLET PO (15:18)
[2021-05-02 17:30] VITALS: BP 104/63; PULSE 75; RESP 15; TEMP 36.6; O2SAT 98
--- NOTE | 2021-05-02 18:26 | PC.NURSE ---
pt resting comfortably in bed, ate dinner and is awaiting night time meds/ bed assignment
[2021-05-02] MEDS: Melatonin 3 MG TABLET 9 MG PO (20:58)
[2021-05-02] MEDS: lamoTRIgine 25 MG TABLET PO (20:58)
[2021-05-02] MEDS: traZODone HCL 50 MG TABLET 150 MG PO (20:58)
[2021-05-02] MEDS: Benztropine Mesylate 1 MG TABLET PO (20:58)
[2021-05-02] MEDS: HaloperidoL 5 MG TABLET PO (20:59)
[2021-05-02 23:00] VITALS: BMI 27.6
[2021-05-02 23:05] VITALS: BP 87/66; PULSE 65; RESP 16; TEMP 36.1; O2SAT 97
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
[2021-05-03 06:00] VITALS: BP 97/59; PULSE 66; RESP 16; TEMP 35.9; O2SAT 98
[2021-05-03] MEDS: Benztropine Mesylate 1 MG TABLET PO (08:48)
[2021-05-03] MEDS: HaloperidoL 1 MG TABLET 2 MG PO (08:48)
[2021-05-03] MEDS: Multivitamin TABLET 1 TAB PO (08:48)
[2021-05-03] MEDS: Nicotine Polacrilex 2 MG GUM 4 MG BUCCAL ×4 (10:38→19:09)
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
[2021-05-03 17:37] VITALS: BP 111/69; PULSE 65; RESP 18; TEMP 36.6; O2SAT 99
[2021-05-03] MEDS: traZODone HCL 50 MG TABLET 150 MG PO (20:37)
[2021-05-03] MEDS: Melatonin 3 MG TABLET 9 MG PO (20:37)
[2021-05-03] MEDS: Benztropine Mesylate 0.5 MG TABLET 1.5 MG PO (20:38)
[2021-05-03] MEDS: HaloperidoL 5 MG TABLET 10 MG PO (20:41)
[2021-05-03] MEDS: clonazePAM 0.5 MG TABLET PO (20:41)
[2021-05-03] MEDS: lamoTRIgine 25 MG TABLET 50 MG PO (20:41)
[2021-05-04] MEDS: Multivitamin TABLET 1 TAB PO (09:03)
[2021-05-04] MEDS: Benztropine Mesylate 0.5 MG TABLET 1.5 MG PO ×2 (09:03→20:13)
[2021-05-04] MEDS: HaloperidoL 1 MG TABLET 2 MG PO (09:03)
[2021-05-04] MEDS: Cholecalciferol (Vitamin D3) 25 MCG TABLET PO (09:03)
[2021-05-04] MEDS: Nicotine Polacrilex 2 MG GUM 4 MG BUCCAL ×5 (10:38→20:14)
[2021-05-04 11:01] LABS: Estimated Average Glucose 88 mg/dL; Hemoglobin A1c % 4.7 %
[2021-05-04 11:14] LABS: Thyroid Stimulating Hormone 0.74 uIU/mL (0.32-4.0)
[2021-05-04 19:29] VITALS: BP 108/62; PULSE 99; RESP 16; TEMP 36.6; O2SAT 99
[2021-05-04] MEDS: lamoTRIgine 25 MG TABLET 50 MG PO (20:13)
[2021-05-04] MEDS: HaloperidoL 5 MG TABLET 10 MG PO (20:13)
[2021-05-04] MEDS: Melatonin 3 MG TABLET 9 MG PO (20:13)
[2021-05-04] MEDS: traZODone HCL 50 MG TABLET 150 MG PO (20:13)
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
[2021-05-05] MEDS: Nicotine Polacrilex 2 MG GUM 4 MG BUCCAL ×3 (09:51→18:35)
[2021-05-05] MEDS: Benztropine Mesylate 0.5 MG TABLET 1.5 MG PO ×2 (09:51→20:02)
[2021-05-05] MEDS: Multivitamin TABLET 1 TAB PO (09:51)
[2021-05-05] MEDS: Cholecalciferol (Vitamin D3) 25 MCG TABLET PO (09:52)
[2021-05-05] MEDS: HaloperidoL 1 MG TABLET 2 MG PO (09:52)
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
[2021-05-05 16:52] VITALS: BP 107/68; PULSE 89; RESP 16; TEMP 36.8; O2SAT 98
[2021-05-05] MEDS: clonazePAM 0.5 MG TABLET PO (18:34)
[2021-05-05] MEDS: lamoTRIgine 25 MG TABLET 50 MG PO (20:01)
[2021-05-05] MEDS: Melatonin 3 MG TABLET 9 MG PO (20:01)
[2021-05-05] MEDS: HaloperidoL 5 MG TABLET 10 MG PO (20:01)
[2021-05-05] MEDS: traZODone HCL 50 MG TABLET 150 MG PO (20:02)
[2021-05-06] MEDS: HaloperidoL 1 MG TABLET 2 MG PO (08:44)
[2021-05-06] MEDS: Benztropine Mesylate 0.5 MG TABLET 1.5 MG PO ×2 (08:45→20:05)
[2021-05-06] MEDS: Multivitamin TABLET 1 TAB PO (08:46)
[2021-05-06] MEDS: Cholecalciferol (Vitamin D3) 25 MCG TABLET PO (08:46)
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
[2021-05-06] MEDS: Nicotine Polacrilex 2 MG GUM 4 MG BUCCAL ×3 (10:43→16:33)
[2021-05-06 16:19] VITALS: BP 117/66; PULSE 91; TEMP 36.1; O2SAT 98
[2021-05-06] MEDS: clonazePAM 0.5 MG TABLET PO (19:34)
[2021-05-06] MEDS: Melatonin 3 MG TABLET 9 MG PO (20:05)
[2021-05-06] MEDS: traZODone HCL 50 MG TABLET 150 MG PO (20:06)
[2021-05-06] MEDS: lamoTRIgine 25 MG TABLET 50 MG PO (20:06)
[2021-05-06] MEDS: HaloperidoL 5 MG TABLET 10 MG PO (20:06)
[2021-05-07 08:00] VITALS: BP 100/60; PULSE 79; RESP 18; TEMP 36.7; O2SAT 98
[2021-05-07] MEDS: Benztropine Mesylate 0.5 MG TABLET 1.5 MG PO ×2 (09:21→20:55)
[2021-05-07] MEDS: Cholecalciferol (Vitamin D3) 25 MCG TABLET PO (09:21)
[2021-05-07] MEDS: HaloperidoL 1 MG TABLET 2 MG PO ×2 (09:23→14:03)
[2021-05-07] MEDS: Multivitamin TABLET 1 TAB PO (09:23)
[2021-05-07] MEDS: Nicotine Polacrilex 2 MG GUM 4 MG BUCCAL ×4 (10:33→19:36)
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
[2021-05-07] MEDS: clonazePAM 0.5 MG TABLET PO (14:37)
[2021-05-07 19:15] VITALS: BP 109/65; PULSE 106; TEMP 36.6
[2021-05-07] MEDS: traZODone HCL 50 MG TABLET 150 MG PO (20:56)
[2021-05-07] MEDS: lamoTRIgine 25 MG TABLET 50 MG PO (20:56)
[2021-05-07] MEDS: HaloperidoL 5 MG TABLET 10 MG PO (20:56)
[2021-05-07] MEDS: Melatonin 3 MG TABLET 9 MG PO (20:57)
[2021-05-08 06:00] VITALS: BP 138/59; PULSE 78; TEMP 36.1; O2SAT 93
[2021-05-08] MEDS: Benztropine Mesylate 0.5 MG TABLET 1.5 MG PO ×2 (08:50→20:13)
[2021-05-08] MEDS: HaloperidoL 1 MG TABLET 2 MG PO ×2 (08:50→13:45)
[2021-05-08] MEDS: Cholecalciferol (Vitamin D3) 25 MCG TABLET PO (08:50)
[2021-05-08] MEDS: Multivitamin TABLET 1 TAB PO (08:51)
[2021-05-08] MEDS: Nicotine Polacrilex 2 MG GUM 4 MG BUCCAL ×5 (08:51→20:18)
--- NOTE | 2021-05-08 09:00 | ECG_ITS ---
Test Reason : ANTIPSYCH TITRATION Blood Pressure : / mmHG Vent. Rate : 075 BPM Atrial Rate : 075 BPM P-R Int : 172 ms QRS Dur : 082 ms QT Int : 400 ms P-R-T Axes : 037 067 034 degrees QTc Int : 446 ms Normal sinus rhythm Normal ECG When compared with ECG of 16-APR-2021 10:51, QRS axis Shifted left Referred By: Zee Washington Electronically Signed By:NAZANIN REINOSO
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
[2021-05-08 18:00] VITALS: BP 101/59; PULSE 94; RESP 16; TEMP 36; O2SAT 97
[2021-05-08] MEDS: traZODone HCL 50 MG TABLET 150 MG PO (20:13)
[2021-05-08] MEDS: HaloperidoL 5 MG TABLET 10 MG PO (20:14)
[2021-05-08] MEDS: lamoTRIgine 25 MG TABLET 50 MG PO (20:14)
[2021-05-08] MEDS: Melatonin 3 MG TABLET 9 MG PO (20:14)
[2021-05-09] MEDS: HaloperidoL 1 MG TABLET 2 MG PO (09:02)
[2021-05-09] MEDS: Multivitamin TABLET 1 TAB PO (09:02)
[2021-05-09] MEDS: Benztropine Mesylate 0.5 MG TABLET 1.5 MG PO (09:02)
[2021-05-09] MEDS: Cholecalciferol (Vitamin D3) 25 MCG TABLET PO (09:02)
[2021-05-09] MEDS: Nicotine Polacrilex 2 MG GUM 4 MG BUCCAL (09:14)
--- NOTE | 2021-05-09 16:12 | PM.PSYDC ---
DS: Providers Provider Date of Service: 05/09/21 Date of admission: 05/02/21 22:39 Date of discharge: 05/09/21 Primary care physician: Brianna Dunn MD Admitting clinician: Zee Washington Attending physician on admission: Zeferino Gentile Attending physician on discharge: Zeferino Gentile Discharging clinician: Zee Washington DS: Diagnosis Discharge Diagnosis (1) Schizoaffective disorder, bipolar type: Status: Acute DS: Medications Discharge Medications Home Medications: Previous Rx's Medication Instructions Recorded albuterol sulfate 90 mcg/actuation 2 puff INHALATION RQ4H PRN #1 g 04/16/21 aerosol inhaler (Ventolin HFA) benztropine 0.5 mg tablet 1.5 mg PO BID #180 tab 05/09/21 cholecalciferol (vitamin D3) 25 25 mcg PO DAILY #30 tab 05/09/21 mcg (1,000 unit) tablet clonazepam 0.5 mg tablet 0.5 mg PO DAILY PRN #30 tab 05/09/21 haloperidol 2 mg tablet 2 mg PO BID #60 tab 05/09/21 haloperidol 5 mg tablet 5 mg PO BID PRN #60 tab 05/09/21 haloperidol 5 mg tablet 10 mg PO BEDTIME #60 tab 05/09/21 lamotrigine 25 mg tablet 50 mg PO BEDTIME #60 tab 05/09/21 melatonin 5 mg tablet 10 mg PO BEDTIME #60 tab 05/09/21 multivitamin (Daily-Nevaeh) 1 tab PO DAILY #30 tab 05/09/21 nicotine (polacrilex) 2 mg gum 4 mg BUCCAL Q2H PRN #60 ea 05/09/21 trazodone 150 mg tablet 150 mg PO BEDTIME #30 tab 05/09/21 Mental Status Exam Mental Status Exam Patient Appearance: Appropriate Patient Orientation: Person, Place, Time and Situation Level of Consciousness: Alert Patient Behavior: Appropriate, Talkative and Good Eye Contact Mood Description: Withdrawn Affect Description: Withdrawn Patient Cognition Impaired: No Ability to Follow Directions: Good Speech Pattern: Spontaneous Speech Memory Description: Intact Hallucinations: Auditory ( my voice ) Delusions: Not Present Thought Process: Intact and Goal Oriented Thought Content: positive for Intact Depressive Symptoms: Increased Anxiety, Significant Weight Gain (concern about weight gain.) and Low Self Esteem Judgement: Good Data Data Completed and Pending Completed studies during hospitalization [Text1]: 05/04/21 05/04/21 10:28 10:28 Estimat Average Glucose 88 Hemoglobin A1c % 4.7 TSH 0.74 DS: Summary Hospital Course Hospital Course: 20 yo female, history of schizoaffective disorder, bipolar type, presents with auditory perceptual alterations, command in nature, instructing pt to harm herself. Reports voices are calling her a rapist. Reports she is going through psychosis to the crisis team and defined psychosis to the team. Pt was admitted on a conditinal voluntary basis. She was prepared to make medicine changes and wrote a list of her meds, her thoughts about their efficacy and if she thought we should titrate them (as we discussed in her last admission). Medications were titrated. Pt worked with the nursing and social service teams on skills, symptom mgt and aftercare planning. Pt was able to discuss some of her beliefs about feeling she is a rapist with her social contact worker and this ticket writer at length. She discussed some of her childhood perceptions of her actions as an adult. Education and support were provided and she was able to clarify some of her perceptions and how she arrived at those perceptions. Time spent discussing smoking cessation with patient: 3 to 10 minutes Status at Discharge Cognitive/behavioral status at discharge: non psychotic, non suicidal, reports asymptomatic state, pleased to be going home. Functional status at discharge: independent ambulation Overall status at discharge: patient is progressing back to baseline Time Spent with Patient Time attestation: Total time spent providing and/or coordinating discharge services:35 Discharge Plan Discharge Anticipated Discharge Date/Time: 05/09/21 15:00 Patient Disposition: Home, Self-Care Discharge Diagnosis: Schizoaffective Disorder, Bipolar type Referrals: Psych Prescriber: Mikayla Harrington ([facility]) [Other] - 05/15/21 12:30 pm (Telehealth) Therapist: Heather Valencia ([facility]) [Other] - 1 Week (*Will call you with appointment once obtained ) Brianna Dunn MD [Primary Care Provider] - 1 Week Discharge Medications: New benztropine 0.5 mg Tablet 1.5 mg PO BID Qty: 180 RF: 0 haloperidol 5 mg Tablet 10 mg PO BEDTIME Qty: 60 RF: 0 haloperidol 5 mg Tablet 5 mg PO BID PRN (Reason: psychosis) Qty: 60 RF: 0 nicotine (polacrilex) 2 mg Gum 4 mg buccal Q2H PRN (Reason: Nicotine Cravings) Qty: 60 RF: 0 lamotrigine 25 mg Tablet 50 mg PO BEDTIME Qty: 60 RF: 0 cholecalciferol (vitamin D3) 25 mcg (1,000 unit) Tablet 25 mcg PO DAILY Qty: 30 RF: 0 haloperidol 2 mg tablet 2 mg PO BID Qty: 60 RF: 0 Continued albuterol sulfate [Ventolin HFA] 90 mcg/actuation Hfa Aerosol Inhaler 2 puff inhalation RQ4H PRN (Reason: Shortness Of Breath) Qty: 1 RF: 0 multivitamin [Daily-Nevaeh] Tablet 1 tab PO DAILY Qty: 30 RF: 0 clonazepam 0.5 mg Tablet 0.5 mg PO DAILY PRN (Reason: SEVERE anxiety/panic) Qty: 30 RF: 0 trazodone 150 mg tablet 150 mg PO BEDTIME Qty: 30 RF: 0 Changed melatonin 5 mg tablet 10 mg PO BEDTIME Qty: 60 RF: 0 Discontinued lamotrigine 25 mg Tablet 25 mg PO BEDTIME Qty: 30 RF: 0 benztropine 1 mg Tablet 1 mg PO BID PRN (Reason: EPS) Qty: 60 RF: 0 haloperidol 2 mg tablet 2 mg PO DAILY RF: 0 haloperidol 5 mg tablet 5 mg PO BEDTIME RF: 0 Discharge Orders: Discharge Order (Routine); Ordered 05/09/21 Ordered By: Zee Washington Diet: advance to usual diet Activity on Discharge: As tolerated Stand Alone Forms: Patient Portal Discharge page, Community Support Care Plan Goals: Mood Stabilization Health Concerns: Schizoaffective Disorder, Bipolar Type Plan of Treatment: Attend appointments as scheduled Take medications as directed Utilize resources to meet your goals Assessment: non suicidal, non psychotic, feeling ready to discharge Discharge Date/Time: 05/09/21 14:03
== END 2021-05-09 14:03 | disposition home or self-care (01) | DRG 750 ==
LOC: HO.ED 19:40 → HO.PM5 22:42
PROVIDERS: Nurse Practitioner Family; Admitting Provider Registered Nurse; Emergency Provider Emergency Medicine; PCP Internal Medicine; Visit Provider Clinical Nurse Specialist Psychiatric/Mental Health, Adult
DX: F25.0 Schizoaffective disorder, bipolar type (principal); F17.210 Nicotine dependence, cigarettes, uncomplicated; Z20.822 Contact with and (suspected) exposure to COVID-19; Z71.6 Tobacco abuse counseling; Z79.899 Other long term (current) drug therapy
CPT/HCPCS: 36415; 80048; 80076; 80307; 81025; 82077; 83036; 84443; 85025; 87635; 93005; 99285

== ENCOUNTER 2021-05-18 09:56 | Emergency (ER) | payer MEDICARE, OTHER, MEDICAID, SELFPAY ==
[2021-05-18 09:59] VITALS: BP 110/64; PULSE 93; RESP 16; TEMP 36.4; O2SAT 97; BMI 25.1
--- NOTE | 2021-05-18 11:37 | ECG_ITS ---
Test Reason : DIZZINESS Blood Pressure : / mmHG Vent. Rate : 054 BPM Atrial Rate : 054 BPM P-R Int : 174 ms QRS Dur : 086 ms QT Int : 416 ms P-R-T Axes : 030 066 038 degrees QTc Int : 394 ms Sinus bradycardia with sinus arrhythmia Otherwise normal ECG When compared with ECG of 08-MAY-2021 09:06, QT has shortened Heart rate has decreased Referred By: Kimberly Alexander Electronically Signed By:NAZANIN REINOSO
[2021-05-18 12:17] LABS: MANUAL DIFF FLAG NO
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
[2021-05-18 12:22] LABS: Appearance Urine HAZY; Color Urine YELLOW; Glucose Urine UA NEG (NEG); Leukocyte Esterase Urine NEG (NEG); Nitrite Urine NEG (NEG); PH 6.5 (5.0-8.0); Urine Blood NEG (NEG); Urine Ketones NEG (NEG); Urine Protein NEG (NEG-TRACE)
[2021-05-18 12:32] LABS: Anion Gap 14 (12-20); Blood Urea Nitrogen 10 mg/dL (9-16); Calcium 10.3 mg/dL (8.4-10.2); Carbon Dioxide 29 mmol/L (22-29); Chloride 103 mmol/L (96-108); Creatinine Clr Calc Pharmacy 93.1; Estimated Glomerular Filt Rate > 60; Glucose Random 76 mg/dL (60-115); Potassium 4.5 mmol/L (3.3-5.1); Sodium 141 mmol/L (135-145)
[2021-05-18 12:44] LABS: Basophils Percent Auto 0.4 % (0-2); Eosinophils Absolute Auto 0.1 X10*3/uL (0.0-0.4); Eosinophils Percent Auto 2.1 % (0-4); Hematocrit 38.4 % (37-47); Hemoglobin 13.1 g/dl (12.0-16.0); Imm Gran Abs Auto 0.01 X10*3/uL (0.00-0.03); Imm Gran Pct Auto 0.2 % (0.0-0.4); Lymphocytes Absolute Auto 1.5 X10*3/uL (1.2-4.9); Lymphocytes Percent Auto 31.2 % (20-40); Mean Corpuscular HGB Conc 34.1 g/dl (31.0-35.0); Mean Corpuscular Hemoglobin 32.3 pg (27.0-33.0); Mean Corpuscular Volume 94.8 fL (80-98); Mean Platelet Volume 10.7 fL (9.4-12.3); Monocytes Absolute Auto 0.4 X10*3/uL (0.1-1.2); Monocytes Percent Auto 7.4 % (2-11); Neutrophils Absolute Auto 2.8 X10*3/uL (2.0-8.3); Neutrophils Percent Auto 58.7 % (45-73); Platelet Count 208 X10*3/uL (160-400); Red Blood Count 4.05 X10*6/uL (4.20-5.50); Red Cell Distribution Width 11.9 % (11.0-16.0); White Blood Count 4.7 X10*3/uL (4.8-10.8)
[2021-05-18 13:40] VITALS: BP 100/58; BP 105/62; PULSE 58; PULSE 79
[2021-05-18 13:41] VITALS: BP 90/60; PULSE 91
== END 2021-05-18 13:45 | disposition home or self-care (01) ==
PROVIDERS: Physician Assistant; Emergency Provider Emergency Medicine Emergency Medical Services; PCP Internal Medicine
DX: R55 Syncope and collapse (principal); F25.9 Schizoaffective disorder, unspecified; E86.0 Dehydration; F12.90 Cannabis use, unspecified, uncomplicated; M79.605 Pain in left leg; M79.604 Pain in right leg; F17.210 Nicotine dependence, cigarettes, uncomplicated; Z71.6 Tobacco abuse counseling; Z79.899 Other long term (current) drug therapy
CPT/HCPCS: 36415; 80048; 81003; 82550; 85025; 93005; 99283

== ENCOUNTER 2021-05-29 21:04 | Inpatient (IN) | payer OTHER, SELFPAY ==
[2021-05-29 21:26] VITALS: BP 137/89; PULSE 100; RESP 16; TEMP 36.6; O2SAT 98; BMI 24.7
[2021-05-29 21:50] LABS: Appearance Urine CLEAR; Color Urine YELLOW; Glucose Urine UA NEG (NEG); Leukocyte Esterase Urine TRACE (NEG); Nitrite Urine NEG (NEG); PH 6.5 (5.0-8.0); Specific Gravity - Urine 1.015 (1.005-1.025); UACC Culture Trigger YES; Urine Blood NEG (NEG); Urine Ketones NEG (NEG); Urine Protein TRACE MG/DL (NEG-TRACE)
[2021-05-29 21:54] LABS: UPreg QC Valid YES; Urine Pregnancy NEGATIVE (NEGATIVE)
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
[2021-05-29 21:59] LABS: Bacteria Urine TRACE /LPF; Mucus Urine 1+ /LPF; RBC Urine 0 /HPF (0); Squamous Epithelial Cell Urine 1+ /LPF; UACC CULT YES; WBC Urine 0-2 /HPF (0-4)
[2021-05-29 22:05] LABS: COVID-19 Test Negative (Negative); IDNOW Serial# 9DD0AD1C
[2021-05-29 22:05] LABS: Amphetamine Screen Urine Not Detected (Not Detect); Barbiturates, Urine Not Detected (Not Detect); Benzodiazepines Screen Urine Not Detected (Not Detect); Cannabinoid Screen Urine Not Detected (Not Detect); Cocaine Screen Urine Not Detected (Not Detect); Fentanyl, urine Not Detected (Not Detect); Opiate Screen Urine Not Detected (Not Detect); Phencyclidine Screen Urine Not Detected (Not Detect)
--- NOTE | 2021-05-30 | ECG_ITS ---
Test Reason : MED CLEARANCE Blood Pressure : / mmHG Vent. Rate : 064 BPM Atrial Rate : 064 BPM P-R Int : 172 ms QRS Dur : 084 ms QT Int : 412 ms P-R-T Axes : 027 067 040 degrees QTc Int : 425 ms Normal sinus rhythm Normal ECG When compared with ECG of 18-MAY-2021 11:59, No significant change was found Referred By: Marine Mosley Electronically Signed By:NAZANIN REINOSO
[2021-05-30] MEDS: Acetaminophen 325 MG TABLET 650 MG PO (00:30)
[2021-05-30 02:13] VITALS: BP 128/80; PULSE 84; RESP 16; TEMP 36.6; O2SAT 98
--- NOTE | 2021-05-30 06:21 | PC.NURSE ---
Patient slept through the night, no distress observed/reported, medication compliant, behavior appropriate and non concerning, [facility] referral completed/confirmed by NHAN Montoya, patient will be seen in the morning.
--- NOTE | 2021-05-30 08:50 | PC.NURSE ---
Care team at bedside for eval
[2021-05-30] MEDS: HaloperidoL 1 MG TABLET 2 MG PO ×2 (09:16→21:02)
[2021-05-30] MEDS: Cholecalciferol (Vitamin D3) 25 MCG TABLET PO (09:16)
[2021-05-30] MEDS: Multivitamin TABLET 1 TAB PO (09:16)
[2021-05-30] MEDS: Benztropine Mesylate 0.5 MG TABLET 1.5 MG PO ×2 (09:16→21:02)
[2021-05-30 09:22] VITALS: BP 113/74; PULSE 93; RESP 17; O2SAT 98
--- NOTE | 2021-05-30 11:09 | MHC.CARE ---
Patient evaluated by the CARE Team, she will be referred for inpatient psychiatric treatment.
[2021-05-30 11:57] LABS: MANUAL DIFF FLAG NO
[2021-05-30 12:06] LABS: Basophils Percent Auto 0.5 % (0-2); Eosinophils Absolute Auto 0.1 X10*3/uL (0.0-0.4); Hematocrit 37.9 % (37-47); Hemoglobin 13.4 g/dl (12.0-16.0); Imm Gran Abs Auto 0.01 X10*3/uL (0.00-0.03); Imm Gran Pct Auto 0.2 % (0.0-0.4); Lymphocytes Absolute Auto 1.6 X10*3/uL (1.2-4.9); Lymphocytes Percent Auto 24.9 % (20-40); Mean Corpuscular HGB Conc 35.4 g/dl (31.0-35.0); Mean Corpuscular Hemoglobin 32.4 pg (27.0-33.0); Mean Corpuscular Volume 91.8 fL (80-98); Mean Platelet Volume 10.5 fL (9.4-12.3); Monocytes Absolute Auto 0.4 X10*3/uL (0.1-1.2); Monocytes Percent Auto 5.4 % (2-11); Neutrophils Absolute Auto 4.3 X10*3/uL (2.0-8.3); Platelet Count 197 X10*3/uL (160-400); Red Blood Count 4.13 X10*6/uL (4.20-5.50); Red Cell Distribution Width 11.5 % (11.0-16.0); White Blood Count 6.5 X10*3/uL (4.8-10.8)
[2021-05-30 12:14] LABS: Alanine Aminotransferase 23 U/L (0-31); Alkaline Phosphatase 44 U/L (39-117); Anion Gap 11 (12-20); Aspartate Amino Transferase 16 U/L (5-31); Bilirubin Total 0.7 mg/dL (0.0-1.0); Blood Urea Nitrogen 7 mg/dL (9-16); Calcium 10.3 mg/dL (8.4-10.2); Carbon Dioxide 28 mmol/L (22-29); Chloride 105 mmol/L (96-108); Creatinine Clr Calc Pharmacy 99.4; Estimated Glomerular Filt Rate > 60; Glucose Random 95 mg/dL (60-115); Potassium 4.3 mmol/L (3.3-5.1); Sodium 140 mmol/L (135-145); Total Protein 7.4 g/dL (6.5-8.0)
[2021-05-30] MEDS: Nicotine Polacrilex 2 MG GUM 4 MG BUCCAL ×3 (14:06→19:13)
[2021-05-30] MEDS: clonazePAM 0.5 MG TABLET PO (17:31)
[2021-05-30 17:37] VITALS: BP 120/72; PULSE 83; O2SAT 98
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
[2021-05-30] MEDS: lamoTRIgine 25 MG TABLET 50 MG PO (21:02)
[2021-05-30] MEDS: traZODone HCL 50 MG TABLET 150 MG PO (21:02)
[2021-05-30] MEDS: Melatonin 3 MG TABLET 9 MG PO (21:02)
[2021-05-30] MEDS: OLANZapine 5 MG TABLET PO (21:02)
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
[2021-05-31] MEDS: Cholecalciferol (Vitamin D3) 25 MCG TABLET PO (08:31)
[2021-05-31] MEDS: Benztropine Mesylate 0.5 MG TABLET 1.5 MG PO ×2 (08:32→20:36)
[2021-05-31] MEDS: HaloperidoL 1 MG TABLET 2 MG PO ×2 (08:32→20:36)
[2021-05-31] MEDS: Multivitamin TABLET 1 TAB PO (08:33)
[2021-05-31] MEDS: clonazePAM 0.5 MG TABLET PO (11:51)
[2021-05-31] MEDS: Nicotine Polacrilex 2 MG GUM 4 MG BUCCAL ×5 (11:51→20:37)
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
--- NOTE | 2021-05-31 19:15 | P.PNPSI_ITS ---
Subjective Subjective Date of Service: 05/31/21 Reason For Visit: psychosis Subjective Notes: Conditional Voluntary Interim History: Hi. The medicine is good. I just need to get an apartment or a snf or something. I cannot live at home anymore. Labile presentation today. Refusing medication changes, believes she just needs a change of housing. Not wanting to process precipitants. Review of medication changes [employer] Medication Compliance: Yes Side effects from medications: No Attending Groups: Yes Review of Systems Acute medical concerns: No Medical Review of Systems: unchanged Review of Systems Reports behavioral changes Psychiatric: Reports anxiety, Reports behavioral changes, Reports change in appetite, Reports depression, Reports hopelessness, Reports irritability, Reports mood swings, Reports paranoia and Reports suicidal ideation Mental Status Exam Mental Status Exam Patient Appearance: Appropriate Patient Orientation: Person, Place and Situation Level of Consciousness: Alert Patient Behavior: Guarded, Talkative and Good Eye Contact Mood Description: Labile Affect Description: Labile Ability to Follow Directions: Good Speech Pattern: Spontaneous Speech Memory Description: Episodic Impaired Delusions: Paranoid Ideation and Present Thought Process: Illogical, Distracted and Rumination Thought Content: positive for Goal Oriented and positive for Perseveration Depressive Symptoms: Unhappiness, Low Self Esteem and Difficulty Concentrating Abnormal Motor Activity Signs and Symptoms: Agitation and Restlessness Judgement: Poor Diagnostics Vital Signs (24Hr): Body Mass Index 24.7 Labs Results: 05/30/21 11:50 05/30/21 11:50 Labs: Laboratory Results - last 48 hr 05/29/21 05/29/21 05/29/21 21:39 21:43 21:43 WBC RBC Hgb Hct MCV MCH MCHC RDW Plt Count MPV Immature Gran % (Auto) Neut % (Auto) Lymph % (Auto) [place] % (Auto) Eos % (Auto) Baso % (Auto) Lymph # (Auto) [place] # (Auto) Eos # (Auto) Baso # (Auto) Abs Immat Gran (auto) Absolute Neuts (auto) Absolute Nucleated RBC Nucleated RBC % (auto) Sodium Potassium Chloride Carbon Dioxide Anion Gap BUN Creatinine Estim Creat Clear Calc Estimated GFR Random Glucose Calcium Total Bilirubin AST ALT Alkaline Phosphatase Total Protein Albumin Urine Color YELLOW Urine Appearance CLEAR Urine pH 6.5 Ur Specific [place] 1.015 Urine Protein TRACE Urine Glucose (UA) NEG Urine Ketones NEG Urine Blood NEG Urine Nitrite NEG Ur Leukocyte Esterase TRACE H Urine RBC 0 Urine WBC 0-2 Ur Squamous Epith Cells 1+ Urine Bacteria TRACE Urine Mucus 1+ Urine Test NEGATIVE Urine Opiates Screen Urine Fentanyl Screen Ur Barbiturates Screen Ur Phencyclidine Scrn Ur Amphetamines Screen U Benzodiazepines Scrn Urine Cocaine Screen U Marijuana (THC) Screen COVID-19 (TRUONG) Negative COVID-19 Clin Com See Note 05/29/21 05/30/21 05/30/21 21:43 11:50 11:50 WBC 6.5 RBC 4.13 L Hgb 13.4 Hct 37.9 MCV 91.8 MCH 32.4 MCHC 35.4 H RDW 11.5 Plt Count 197 MPV 10.5 Immature Gran % (Auto) 0.2 Neut % (Auto) 67.0 Lymph % (Auto) 24.9 [place] % (Auto) 5.4 Eos % (Auto) 2.0 Baso % (Auto) 0.5 Lymph # (Auto) 1.6 [place] # (Auto) 0.4 Eos # (Auto) 0.1 Baso # (Auto) 0.0 Abs Immat Gran (auto) 0.01 Absolute Neuts (auto) 4.3 Absolute Nucleated RBC 0.000 Nucleated RBC % (auto) 0.0 Sodium 140 Potassium 4.3 Chloride 105 Carbon Dioxide 28 Anion Gap 11 L BUN 7 L Creatinine 0.81 Estim Creat Clear Calc 99.4 Estimated GFR > 60 Random Glucose 95 Calcium 10.3 H Total Bilirubin 0.7 AST 16 ALT 23 Alkaline Phosphatase 44 Total Protein 7.4 Albumin 5.0 Urine Color Urine Appearance Urine pH Ur Specific [place] Urine Protein Urine Glucose (UA) Urine Ketones Urine Blood Urine Nitrite Ur Leukocyte Esterase Urine RBC Urine WBC Ur Squamous Epith Cells Urine Bacteria Urine Mucus Urine Test Urine Opiates Screen Not Detected Urine Fentanyl Screen Not Detected Ur Barbiturates Screen Not Detected Ur Phencyclidine Scrn Not Detected Ur Amphetamines Screen Not Detected U Benzodiazepines Scrn Not Detected Urine Cocaine Screen Not Detected U Marijuana (THC) Screen Not Detected COVID-19 (TRUONG) COVID-19 Clin Com Medications Medications Current Medications Acetaminophen (Acetaminophen 325 Mg Tablet) 650 mg PO Q6H PRN PRN Reason: Headache/Pain Mild Scale (1-3) Al Hydroxide/Mg Hydroxide (Magnesium Hydrox/Alum Hydrox 30 Ml Oral.Susp) 30 ml PO Q6H PRN PRN Reason: Heartburn/Nausea Albuterol Sulfate (Albuterol Sulfate 90 Mcg 8 Gm Inhaler) 2 puff INHALE RQ4H PRN PRN Reason: Shortness Of Breath Benztropine Mesylate (Benztropine Mesylate 0.5 Mg Tablet) 1.5 mg PO BID [facility] Last Admin: 05/31/21 08:32 Dose: 1.5 mg Documented by: Clonazepam (Clonazepam 0.5 Mg Tablet) 0.5 mg PO DAILY PRN PRN Reason: SEVERE anxiety/panic Last Admin: 05/31/21 11:51 Dose: 0.5 mg Documented by: Haloperidol (Haloperidol 1 Mg Tablet) 2 mg PO BID [facility] Last Admin: 05/31/21 08:32 Dose: 2 mg Documented by: Haloperidol (Haloperidol 5 Mg Tablet) 5 mg PO BID PRN PRN Reason: psychosis Hydroxyzine HCl (Hydroxyzine Hcl 25 Mg Tablet) 25 mg PO Q6H PRN PRN Reason: Anxiety Lamotrigine (Lamotrigine 25 Mg Tablet) 50 mg PO BEDTIME [facility] Last Admin: 05/30/21 21:02 Dose: 50 mg Documented by: Magnesium Hydroxide (Milk Of Magnesia 30 Ml Oral.Susp) 30 ml PO DAILY PRN PRN Reason: Constipation Melatonin (Melatonin 3 Mg Tablet) 9 mg PO BEDTIME [facility] Last Admin: 05/30/21 21:02 Dose: 9 mg Documented by: Multivitamins/Vitamin C (Multivitamin Tablet) 1 tab PO DAILY [facility] Last Admin: 05/31/21 08:33 Dose: 1 tab Documented by: Nicotine Polacrilex (Nicotine Polacrilex 2 Mg Gum) 4 mg BUCCAL Q2H PRN PRN Reason: Nicotine Cravings Last Admin: 05/31/21 18:58 Dose: 4 mg Documented by: Olanzapine (Olanzapine 5 Mg Tablet) 5 mg PO BEDTIME [facility] Last Admin: 05/30/21 21:02 Dose: 5 mg Documented by: Trazodone HCl (Trazodone Hcl 50 Mg Tablet) 150 mg PO BEDTIME [facility] Last Admin: 05/30/21 21:02 Dose: 150 mg Documented by: Trazodone HCl (Trazodone Hcl 50 Mg Tablet) 50 mg PO BEDTIME PRN PRN Reason: Insomnia Vitamin D (Cholecalciferol (Vitamin D3) 25 Mcg Tablet) 25 mcg PO DAILY [facility] Last Admin: 05/31/21 08:31 Dose: 25 mcg Documented by: Allergies Allergies Allergy/AdvReac Type Severity Reaction Status Date / Time risperidone [From Risperdal] Allergy Mild gain weight Verified 04/22/21 14:19 aripiprazole [Abilify] Allergy Unknown gain weight Verified 04/22/21 14:20 cariprazine [From Vraylar] AdvReac Verified 04/22/21 14:18 paliperidone AdvReac dystonia Verified 02/24/21 01:27 Assessment & Plan Assessment & Plan (1) Schizoaffective disorder, bipolar type: Status: Acute Code(s): F25.0 - Schizoaffective disorder, bipolar type Assessment and Plan: Liane is a 20 y.o. female who carries a dx of schizoaffective disorder, bipolar type, hx of cannabis use disorder (no recent use). Utox negative. Hx of multiple psych hospitalizations, CCS evals, childhood psych hx. Mom is current legal guardian. Presenting with paranoid ideations and command AH. Recent med change, haldol 5 mg discontinued and zyprexa 5 mg QHS started in Op setting. Liane does not want med changes at this time, however I encouraged her to consider re-increasing haldol due to previous stability. Consider re-starting vraylar, as she reportedly did well on this in OP setting, as well as increasing lamotrigine dose to target sx of depression, impulsivity. Plan: Continue?Haldol to 2 mg BID, Lamictal to 50 mg daily, Benztropine to 1.5 mg bid, zyprexa 5 mg QHS Monitor response to medications. Monitor for safety in the milieu. Discharge on stabilization. Patient seen. Chart reviewed. Discussed with team. Obtain collateral contact info?as needed 05/31/21: Pt declines to discuss med changes. Will continue to attempt with pt. Labile presentation. Reports she needs a snf. Greater than 50% of the session was spent on counseling and/or coordination of care Patient educated on: medication risk/benefits and therapeutic strategies Informed Consent: does not understand and further education needed Reason for contiued inpatient stay Substantial Risk for: harm to self, inability to function and rapid decompensation
[2021-05-31] MEDS: Melatonin 3 MG TABLET 9 MG PO (20:36)
[2021-05-31] MEDS: OLANZapine 5 MG TABLET PO (20:36)
[2021-05-31] MEDS: lamoTRIgine 25 MG TABLET 50 MG PO (20:36)
[2021-06-01] MEDS: Benztropine Mesylate 0.5 MG TABLET 1.5 MG PO ×2 (08:30→20:12)
[2021-06-01] MEDS: HaloperidoL 1 MG TABLET 2 MG PO ×2 (08:30→20:13)
[2021-06-01] MEDS: Multivitamin TABLET 1 TAB PO (08:30)
[2021-06-01] MEDS: Cholecalciferol (Vitamin D3) 25 MCG TABLET PO (08:30)
[2021-06-01] MEDS: Nicotine Polacrilex 2 MG GUM 4 MG BUCCAL ×5 (11:49→20:10)
[2021-06-01] MEDS: clonazePAM 0.5 MG TABLET PO (12:42)
[2021-06-01] MEDS: Milk of Magnesia 30 ML ORAL.SUSP PO (15:20)
--- NOTE | 2021-06-01 20:02 | HO.PSYCHPN ---
Subjective Subjective Date of Service: 06/01/21 Reason For Visit: psychosis Subjective Notes: Conditional Voluntary Guardianship: Yes Interim History: I got drunk with my friend, I have been smoking, I do feel depressed at night, I don't have day structure, I fainted two weeks ago because I took my meds and did not eat. I need skills for my life-they said Rg Mathis could help me. I just don't know how to do it alone. (cries heavily). I know I am a terrible person who has done terrible things and I don't think anyone will ever love me. I think I need to see Dr. Padilla because that problem is back that he could not see. Discussed with Desi what has been happening [employer] and how she has been perceiving her life, environment and progress. Medication Compliance: Yes Side effects from medications: Yes Attending Groups: Yes Review of Systems Medical Review of Systems: unchanged Review of Systems Reports behavioral changes Psychiatric: Reports anxiety, Reports behavioral changes, Reports change in appetite, Reports depression, Reports hopelessness, Reports irritability, Reports mood swings, Reports paranoia and Reports suicidal ideation Mental Status Exam Mental Status Exam Patient Appearance: Appropriate Patient Orientation: Person, Place and Situation Level of Consciousness: Alert Patient Behavior: Guarded, Talkative and Good Eye Contact Mood Description: Labile Affect Description: Labile Ability to Follow Directions: Good Speech Pattern: Spontaneous Speech Memory Description: Episodic Impaired Delusions: Paranoid Ideation and Present Thought Process: Illogical, Distracted and Rumination Thought Content: positive for Goal Oriented and positive for Perseveration Depressive Symptoms: Unhappiness, Low Self Esteem and Difficulty Concentrating Abnormal Motor Activity Signs and Symptoms: Agitation and Restlessness Judgement: Poor Diagnostics Vital Signs (24Hr): Body Mass Index 24.7 Labs Results: 05/30/21 11:50 05/30/21 11:50 Medications Medications Current Medications Acetaminophen (Acetaminophen 325 Mg Tablet) 650 mg PO Q6H PRN PRN Reason: Headache/Pain Mild Scale (1-3) Al Hydroxide/Mg Hydroxide (Magnesium Hydrox/Alum Hydrox 30 Ml Oral.Susp) 30 ml PO Q6H PRN PRN Reason: Heartburn/Nausea Albuterol Sulfate (Albuterol Sulfate 90 Mcg 8 Gm Inhaler) 2 puff INHALE RQ4H PRN PRN Reason: Shortness Of Breath Benztropine Mesylate (Benztropine Mesylate 0.5 Mg Tablet) 1.5 mg PO BID [facility] Last Admin: 06/01/21 08:30 Dose: 1.5 mg Documented by: Clonazepam (Clonazepam 0.5 Mg Tablet) 0.5 mg PO DAILY PRN PRN Reason: SEVERE anxiety/panic Last Admin: 06/01/21 12:42 Dose: 0.5 mg Documented by: Haloperidol (Haloperidol 1 Mg Tablet) 2 mg PO BID [facility] Last Admin: 06/01/21 08:30 Dose: 2 mg Documented by: Haloperidol (Haloperidol 5 Mg Tablet) 5 mg PO BID PRN PRN Reason: psychosis Hydroxyzine HCl (Hydroxyzine Hcl 25 Mg Tablet) 25 mg PO Q6H PRN PRN Reason: Anxiety Lamotrigine (Lamotrigine 25 Mg Tablet) 75 mg PO DAILY [facility] Magnesium Hydroxide (Milk Of Magnesia 30 Ml Oral.Susp) 30 ml PO DAILY PRN PRN Reason: Constipation Last Admin: 06/01/21 15:20 Dose: 30 ml Documented by: Melatonin (Melatonin 3 Mg Tablet) 9 mg PO BEDTIME [facility] Last Admin: 05/31/21 20:36 Dose: 9 mg Documented by: Multivitamins/Vitamin C (Multivitamin Tablet) 1 tab PO DAILY [facility] Last Admin: 06/01/21 08:30 Dose: 1 tab Documented by: Nicotine Polacrilex (Nicotine Polacrilex 2 Mg Gum) 4 mg BUCCAL Q2H PRN PRN Reason: Nicotine Cravings Last Admin: 06/01/21 18:33 Dose: 4 mg Documented by: Olanzapine (Olanzapine 5 Mg Tablet) 5 mg PO BEDTIME [facility] Last Admin: 05/31/21 20:36 Dose: 5 mg Documented by: Sertraline HCl (Sertraline Hcl 25 Mg Tablet) 25 mg PO DAILY [facility] Trazodone HCl (Trazodone Hcl 50 Mg Tablet) 150 mg PO BEDTIME [facility] Last Admin: 05/31/21 20:43 Dose: Not Given Documented by: Trazodone HCl (Trazodone Hcl 50 Mg Tablet) 50 mg PO BEDTIME PRN PRN Reason: Insomnia Vitamin D (Cholecalciferol (Vitamin D3) 25 Mcg Tablet) 25 mcg PO DAILY [facility] Last Admin: 06/01/21 08:30 Dose: 25 mcg Documented by: Allergies Allergies Allergy/AdvReac Type Severity Reaction Status Date / Time risperidone [From Risperdal] Allergy Mild gain weight Verified 04/22/21 14:19 aripiprazole [Abilify] Allergy Unknown gain weight Verified 04/22/21 14:20 cariprazine [From Vraylar] AdvReac Verified 04/22/21 14:18 paliperidone AdvReac dystonia Verified 02/24/21 01:27 Assessment & Plan Assessment & Plan (1) Schizoaffective disorder, bipolar type: Status: Acute Code(s): F25.0 - Schizoaffective disorder, bipolar type Assessment and Plan: Liane is a 20 y.o. female who carries a dx of schizoaffective disorder, bipolar type, hx of cannabis use disorder (no recent use). Utox negative. Hx of multiple psych hospitalizations, CCS evals, childhood psych hx. Mom is current legal guardian. Presenting with paranoid ideations and command AH. Recent med change, haldol 5 mg discontinued and zyprexa 5 mg QHS started in Op setting. Liane does not want med changes at this time, however I encouraged her to consider re-increasing haldol due to previous stability. Consider re-starting vraylar, as she reportedly did well on this in OP setting, as well as increasing lamotrigine dose to target sx of depression, impulsivity. Plan: Continue?Haldol to 2 mg BID, Lamictal to 50 mg daily, Benztropine to 1.5 mg bid, zyprexa 5 mg QHS Monitor response to medications. Monitor for safety in the milieu. Discharge on stabilization. Patient seen. Chart reviewed. Discussed with team. Obtain collateral contact info?as needed 05/31/21: Pt declines to discuss med changes. Will continue to attempt with pt. Labile presentation. Reports she needs a penitentiary. 06/01/21: More forthcoming today regarding what her perceptions are of how she is doing. She identifies not having a solid foundation of life skills for appropriate self care and as a result is returning to past behavioral patterns which have not been helpful for her. This, along with very low self-esteem, psychosis, misperceptions of past actions appear to have created current decompensation. Plan: Increase Lamictal to 75 mg daily Begin Sertraline 25 mg daily Greater than 50% of the session was spent on counseling and/or coordination of care Patient educated on: therapeutic strategies Informed Consent: further education needed Reason for contiued inpatient stay Substantial Risk for: harm to self, inability to function and rapid decompensation
[2021-06-01] MEDS: Melatonin 3 MG TABLET 9 MG PO (20:11)
[2021-06-01] MEDS: OLANZapine 5 MG TABLET PO (20:13)
[2021-06-02] MEDS: Benztropine Mesylate 0.5 MG TABLET 1.5 MG PO ×2 (08:47→20:06)
[2021-06-02] MEDS: lamoTRIgine 25 MG TABLET 75 MG PO (08:48)
[2021-06-02] MEDS: HaloperidoL 1 MG TABLET 2 MG PO ×2 (08:49→20:06)
[2021-06-02] MEDS: Multivitamin TABLET 1 TAB PO (08:49)
[2021-06-02] MEDS: Sertraline HCL 25 MG TABLET PO (08:49)
[2021-06-02] MEDS: Cholecalciferol (Vitamin D3) 25 MCG TABLET PO (08:49)
[2021-06-02] MEDS: Nicotine Polacrilex 2 MG GUM 4 MG BUCCAL ×4 (13:04→18:46)
[2021-06-02] MEDS: clonazePAM 0.5 MG TABLET PO (13:04)
--- NOTE | 2021-06-02 16:16 | HO.PSYCHPN ---
Subjective Subjective Date of Service: 06/02/21 Reason For Visit: psychosis Subjective Notes: Conditional Voluntary Interim History: Team reports isolative, poor appetite, avoidance and increased use of Nicotine Gum. Pt participating in an art project when seen-asks if we think she can be helped. Attempted reassurance and education. Pt pleased with Lamictal increase and Sertraline initiation. Asks if she may have one day with the new regime, I know we need to talk about the Zyprexa-I am not handling it well- I don't do anything well. I need to learn all new things don't I? Medication Compliance: Yes Review of Systems Medical Review of Systems: unchanged Review of Systems Reports behavioral changes Psychiatric: Reports anxiety, Reports behavioral changes, Reports change in appetite, Reports depression, Reports hopelessness, Reports irritability, Reports mood swings, Reports paranoia and Reports suicidal ideation Mental Status Exam Mental Status Exam Patient Appearance: Appropriate Patient Orientation: Person, Place and Situation Level of Consciousness: Alert Patient Behavior: Guarded, Talkative and Good Eye Contact Mood Description: Labile Affect Description: Labile Ability to Follow Directions: Good Speech Pattern: Spontaneous Speech Memory Description: Episodic Impaired Delusions: Paranoid Ideation and Present Thought Process: Illogical, Distracted and Rumination Thought Content: positive for Goal Oriented and positive for Perseveration Depressive Symptoms: Unhappiness, Low Self Esteem and Difficulty Concentrating Abnormal Motor Activity Signs and Symptoms: Agitation and Restlessness Judgement: Poor Diagnostics Vital Signs (24Hr): Body Mass Index 24.7 Labs Results: 05/30/21 11:50 05/30/21 11:50 Medications Medications Current Medications Acetaminophen (Acetaminophen 325 Mg Tablet) 650 mg PO Q6H PRN PRN Reason: Headache/Pain Mild Scale (1-3) Al Hydroxide/Mg Hydroxide (Magnesium Hydrox/Alum Hydrox 30 Ml Oral.Susp) 30 ml PO Q6H PRN PRN Reason: Heartburn/Nausea Albuterol Sulfate (Albuterol Sulfate 90 Mcg 8 Gm Inhaler) 2 puff INHALE RQ4H PRN PRN Reason: Shortness Of Breath Benztropine Mesylate (Benztropine Mesylate 0.5 Mg Tablet) 1.5 mg PO BID [facility] Last Admin: 06/02/21 08:47 Dose: 1.5 mg Documented by: Clonazepam (Clonazepam 0.5 Mg Tablet) 0.5 mg PO DAILY PRN PRN Reason: SEVERE anxiety/panic Last Admin: 06/02/21 13:04 Dose: 0.5 mg Documented by: Haloperidol (Haloperidol 1 Mg Tablet) 2 mg PO BID [facility] Last Admin: 06/02/21 08:49 Dose: 2 mg Documented by: Haloperidol (Haloperidol 5 Mg Tablet) 5 mg PO BID PRN PRN Reason: psychosis Hydroxyzine HCl (Hydroxyzine Hcl 25 Mg Tablet) 25 mg PO Q6H PRN PRN Reason: Anxiety Lamotrigine (Lamotrigine 25 Mg Tablet) 75 mg PO DAILY [facility] Last Admin: 06/02/21 08:48 Dose: 75 mg Documented by: Magnesium Hydroxide (Milk Of Magnesia 30 Ml Oral.Susp) 30 ml PO DAILY PRN PRN Reason: Constipation Last Admin: 06/01/21 15:20 Dose: 30 ml Documented by: Melatonin (Melatonin 3 Mg Tablet) 9 mg PO BEDTIME [facility] Last Admin: 06/01/21 20:11 Dose: 9 mg Documented by: Multivitamins/Vitamin C (Multivitamin Tablet) 1 tab PO DAILY [facility] Last Admin: 06/02/21 08:49 Dose: 1 tab Documented by: Nicotine Polacrilex (Nicotine Polacrilex 2 Mg Gum) 4 mg BUCCAL Q2H PRN PRN Reason: Nicotine Cravings Last Admin: 06/02/21 14:46 Dose: 4 mg Documented by: Olanzapine (Olanzapine 5 Mg Tablet) 5 mg PO BEDTIME [facility] Last Admin: 06/01/21 20:13 Dose: 5 mg Documented by: Sertraline HCl (Sertraline Hcl 25 Mg Tablet) 25 mg PO DAILY [facility] Last Admin: 06/02/21 08:49 Dose: 25 mg Documented by: Trazodone HCl (Trazodone Hcl 50 Mg Tablet) 150 mg PO BEDTIME [facility] Last Admin: 06/01/21 22:01 Dose: Not Given Documented by: Trazodone HCl (Trazodone Hcl 50 Mg Tablet) 50 mg PO BEDTIME PRN PRN Reason: Insomnia Vitamin D (Cholecalciferol (Vitamin D3) 25 Mcg Tablet) 25 mcg PO DAILY [facility] Last Admin: 06/02/21 08:49 Dose: 25 mcg Documented by: Allergies Allergies Allergy/AdvReac Type Severity Reaction Status Date / Time risperidone [From Risperdal] Allergy Mild gain weight Verified 04/22/21 14:19 aripiprazole [Abilify] Allergy Unknown gain weight Verified 04/22/21 14:20 cariprazine [From Vraylar] AdvReac Verified 04/22/21 14:18 paliperidone AdvReac dystonia Verified 02/24/21 01:27 Assessment & Plan Assessment & Plan (1) Schizoaffective disorder, bipolar type: Status: Acute Code(s): F25.0 - Schizoaffective disorder, bipolar type Assessment and Plan: Liane is a 20 y.o. female who carries a dx of schizoaffective disorder, bipolar type, hx of cannabis use disorder (no recent use). Utox negative. Hx of multiple psych hospitalizations, CCS evals, childhood psych hx. Mom is current legal guardian. Presenting with paranoid ideations and command AH. Recent med change, haldol 5 mg discontinued and zyprexa 5 mg QHS started in Op setting. Liane does not want med changes at this time, however I encouraged her to consider re-increasing haldol due to previous stability. Consider re-starting vraylar, as she reportedly did well on this in OP setting, as well as increasing lamotrigine dose to target sx of depression, impulsivity. Plan: Continue?Haldol to 2 mg BID, Lamictal to 50 mg daily, Benztropine to 1.5 mg bid, zyprexa 5 mg QHS Monitor response to medications. Monitor for safety in the milieu. Discharge on stabilization. Patient seen. Chart reviewed. Discussed with team. Obtain collateral contact info?as needed 05/31/21: Pt declines to discuss med changes. Will continue to attempt with pt. Labile presentation. Reports she needs a shelter. 06/01/21: More forthcoming today regarding what her perceptions are of how she is doing. She identifies not having a solid foundation of life skills for appropriate self care and as a result is returning to past behavioral patterns which have not been helpful for her. This, along with very low self-esteem, psychosis, misperceptions of past actions appear to have created current decompensation. Plan: Increase Lamictal to 75 mg daily Begin Sertraline 25 mg daily 06/02/21: Continue current regime. Pt per team exhibiting sx of eating disordered behaviors-increase in nicotine, food restriction, possibly due to recent return to Olanzapine (by hx a 13 lb weight gain in one week when last inpatient). Recent decrease of Haldol-pt willing to explore-will follow. Greater than 50% of the session was spent on counseling and/or coordination of care Patient educated on: medication risk/benefits and therapeutic strategies Informed Consent: further education needed Reason for contiued inpatient stay Substantial Risk for: harm to self, inability to function and rapid decompensation
[2021-06-02] MEDS: Melatonin 3 MG TABLET 9 MG PO (20:06)
[2021-06-02] MEDS: OLANZapine 5 MG TABLET PO (20:06)
[2021-06-03] MEDS: HaloperidoL 1 MG TABLET 2 MG PO ×2 (09:02→19:51)
[2021-06-03] MEDS: Benztropine Mesylate 0.5 MG TABLET 1.5 MG PO ×2 (09:02→19:52)
[2021-06-03] MEDS: Sertraline HCL 25 MG TABLET PO (09:02)
[2021-06-03] MEDS: Cholecalciferol (Vitamin D3) 25 MCG TABLET PO (09:03)
[2021-06-03] MEDS: lamoTRIgine 25 MG TABLET 75 MG PO (09:03)
[2021-06-03] MEDS: Multivitamin TABLET 1 TAB PO (09:03)
[2021-06-03] MEDS: Nicotine Polacrilex 2 MG GUM 4 MG BUCCAL ×4 (12:38→18:38)
[2021-06-03] MEDS: clonazePAM 0.5 MG TABLET PO (14:26)
[2021-06-03 16:26] VITALS: BP 121/69; PULSE 120; TEMP 36.1
[2021-06-03] MEDS: Melatonin 3 MG TABLET 9 MG PO (19:52)
[2021-06-03] MEDS: OLANZapine 5 MG TABLET PO (19:52)
[2021-06-03] MEDS: traZODone HCL 50 MG TABLET 150 MG PO (19:52)
--- NOTE | 2021-06-03 20:58 | HO.PSYCHPN ---
Subjective Subjective Date of Service: 06/04/21 Reason For Visit: psychosis Subjective Notes: Conditional Voluntary Interim History: Desi discussed what she thinks would be helpful in terms of housing. She would like an independent apt. Discussed with pt what support is needed and her reports of having difficulty at home being alone. She will consider. Review of med regime. Team are noting sx of eating restrictions. Discussed recent return of Olanzapine. States she is comfortable with this. I was having voices on the Haldol and needed more so I changed. Will continue to explore. Medication Compliance: Yes Side effects from medications: No Attending Groups: Yes Review of Systems Acute medical concerns: No Medical Review of Systems: unchanged Review of Systems Psychiatric: Reports anxiety, Reports depression and Reports hopelessness Mental Status Exam Mental Status Exam Patient Appearance: Appropriate Patient Orientation: Person, Place and Situation Level of Consciousness: Alert Patient Behavior: Guarded, Talkative and Good Eye Contact Mood Description: Labile Affect Description: Labile Ability to Follow Directions: Good Speech Pattern: Spontaneous Speech Memory Description: Episodic Impaired Delusions: Paranoid Ideation and Present Thought Process: Illogical, Distracted and Rumination Thought Content: positive for Goal Oriented and positive for Perseveration Depressive Symptoms: Unhappiness, Low Self Esteem and Difficulty Concentrating Abnormal Motor Activity Signs and Symptoms: Agitation and Restlessness Judgement: Poor Diagnostics Vital Signs (24Hr): Vital Signs - 24 hr 06/03/21 16:26 Temperature 97.0 F Pulse Rate 120 H Blood Pressure 121/69 Body Mass Index 24.7 Labs Results: 05/30/21 11:50 05/30/21 11:50 Medications Medications Current Medications Acetaminophen (Acetaminophen 325 Mg Tablet) 650 mg PO Q6H PRN PRN Reason: Headache/Pain Mild Scale (1-3) Al Hydroxide/Mg Hydroxide (Magnesium Hydrox/Alum Hydrox 30 Ml Oral.Susp) 30 ml PO Q6H PRN PRN Reason: Heartburn/Nausea Albuterol Sulfate (Albuterol Sulfate 90 Mcg 8 Gm Inhaler) 2 puff INHALE RQ4H PRN PRN Reason: Shortness Of Breath Benztropine Mesylate (Benztropine Mesylate 0.5 Mg Tablet) 1.5 mg PO BID [facility] Last Admin: 06/03/21 19:52 Dose: 1.5 mg Documented by: Clonazepam (Clonazepam 0.5 Mg Tablet) 0.5 mg PO DAILY PRN PRN Reason: SEVERE anxiety/panic Last Admin: 06/03/21 14:26 Dose: 0.5 mg Documented by: Haloperidol (Haloperidol 1 Mg Tablet) 2 mg PO BID [facility] Last Admin: 06/03/21 19:51 Dose: 2 mg Documented by: Haloperidol (Haloperidol 5 Mg Tablet) 5 mg PO BID PRN PRN Reason: psychosis Hydroxyzine HCl (Hydroxyzine Hcl 25 Mg Tablet) 25 mg PO Q6H PRN PRN Reason: Anxiety Lamotrigine (Lamotrigine 25 Mg Tablet) 75 mg PO DAILY [facility] Last Admin: 06/03/21 09:03 Dose: 75 mg Documented by: Magnesium Hydroxide (Milk Of Magnesia 30 Ml Oral.Susp) 30 ml PO DAILY PRN PRN Reason: Constipation Last Admin: 06/01/21 15:20 Dose: 30 ml Documented by: Melatonin (Melatonin 3 Mg Tablet) 9 mg PO BEDTIME [facility] Last Admin: 06/03/21 19:52 Dose: 9 mg Documented by: Multivitamins/Vitamin C (Multivitamin Tablet) 1 tab PO DAILY [facility] Last Admin: 06/03/21 09:03 Dose: 1 tab Documented by: Nicotine Polacrilex (Nicotine Polacrilex 2 Mg Gum) 4 mg BUCCAL Q2H PRN PRN Reason: Nicotine Cravings Last Admin: 06/03/21 18:38 Dose: 4 mg Documented by: Olanzapine (Olanzapine 5 Mg Tablet) 5 mg PO BEDTIME [facility] Last Admin: 06/03/21 19:52 Dose: 5 mg Documented by: Sertraline HCl (Sertraline Hcl 25 Mg Tablet) 25 mg PO DAILY [facility] Last Admin: 06/03/21 09:02 Dose: 25 mg Documented by: Trazodone HCl (Trazodone Hcl 50 Mg Tablet) 150 mg PO BEDTIME [facility] Last Admin: 06/03/21 19:52 Dose: 150 mg Documented by: Trazodone HCl (Trazodone Hcl 50 Mg Tablet) 50 mg PO BEDTIME PRN PRN Reason: Insomnia Vitamin D (Cholecalciferol (Vitamin D3) 25 Mcg Tablet) 25 mcg PO DAILY [facility] Last Admin: 06/03/21 09:03 Dose: 25 mcg Documented by: Allergies Allergies Allergy/AdvReac Type Severity Reaction Status Date / Time risperidone [From Risperdal] Allergy Mild gain weight Verified 04/22/21 14:19 aripiprazole [Abilify] Allergy Unknown gain weight Verified 04/22/21 14:20 cariprazine [From Vraylar] AdvReac Verified 04/22/21 14:18 paliperidone AdvReac dystonia Verified 02/24/21 01:27 Assessment & Plan Assessment & Plan (1) Schizoaffective disorder, bipolar type: Status: Acute Code(s): F25.0 - Schizoaffective disorder, bipolar type Assessment and Plan: Liane is a 20 y.o. female who carries a dx of schizoaffective disorder, bipolar type, hx of cannabis use disorder (no recent use). Utox negative. Hx of multiple psych hospitalizations, CCS evals, childhood psych hx. Mom is current legal guardian. Presenting with paranoid ideations and command AH. Recent med change, haldol 5 mg discontinued and zyprexa 5 mg QHS started in Op setting. Liane does not want med changes at this time, however I encouraged her to consider re-increasing haldol due to previous stability. Consider re-starting vraylar, as she reportedly did well on this in OP setting, as well as increasing lamotrigine dose to target sx of depression, impulsivity. Plan: Continue?Haldol to 2 mg BID, Lamictal to 50 mg daily, Benztropine to 1.5 mg bid, zyprexa 5 mg QHS Monitor response to medications. Monitor for safety in the milieu. Discharge on stabilization. Patient seen. Chart reviewed. Discussed with team. Obtain collateral contact info?as needed 05/31/21: Pt declines to discuss med changes. Will continue to attempt with pt. Labile presentation. Reports she needs a jail. 06/01/21: More forthcoming today regarding what her perceptions are of how she is doing. She identifies not having a solid foundation of life skills for appropriate self care and as a result is returning to past behavioral patterns which have not been helpful for her. This, along with very low self-esteem, psychosis, misperceptions of past actions appear to have created current decompensation. Plan: Increase Lamictal to 75 mg daily Begin Sertraline 25 mg daily 06/02/21: Continue current regime. Pt per team exhibiting sx of eating disordered behaviors-increase in nicotine, food restriction, possibly due to recent return to Olanzapine (by hx a 13 lb weight gain in one week when last inpatient). Recent decrease of Haldol-pt willing to explore-will follow. 1 Greater than 50% of the session was spent on counseling and/or coordination of care Patient educated on: medication risk/benefits and therapeutic strategies Informed Consent: further education needed Reason for contiued inpatient stay Substantial Risk for: harm to self, inability to function and rapid decompensation
[2021-06-04] MEDS: Cholecalciferol (Vitamin D3) 25 MCG TABLET PO (10:27)
[2021-06-04] MEDS: lamoTRIgine 25 MG TABLET 75 MG PO (10:28)
[2021-06-04] MEDS: HaloperidoL 1 MG TABLET 2 MG PO ×2 (10:28→20:28)
[2021-06-04] MEDS: Sertraline HCL 25 MG TABLET PO (10:28)
[2021-06-04] MEDS: Benztropine Mesylate 0.5 MG TABLET 1.5 MG PO ×2 (10:28→20:27)
[2021-06-04] MEDS: Multivitamin TABLET 1 TAB PO (10:28)
[2021-06-04 10:30] VITALS: BP 122/71; PULSE 80; RESP 18; TEMP 36.2; O2SAT 98
[2021-06-04] MEDS: Nicotine Polacrilex 2 MG GUM 4 MG BUCCAL ×4 (10:45→17:55)
--- NOTE | 2021-06-04 12:29 | HO.PSYCHPN ---
Subjective Subjective Date of Service: 06/04/21 Reason For Visit: psychosis Interim History: Desi reports that she is hearing less voices. She reports sleeping and eating well. She denies that voices are command in nature. She reports most of the time when she was hearing voices, it was different sounds. She denies SI/HI. Per nursing, she has been visible in the unit, social with select peers. No behavioral concerns. Medication Compliance: Yes Side effects from medications: No Review of Systems Review of Systems Yes all other systems are reviewed and are negative Reports behavioral changes Psychiatric: Reports anxiety, Reports behavioral changes, Reports change in appetite, Reports depression, Reports hopelessness, Reports irritability, Reports mood swings, Reports paranoia and Reports suicidal ideation Mental Status Exam Mental Status Exam Narrative: Appearance: casually groomed, fair hygiene in NAD Behavior:cooperative psychomotor: no agitation or retardation noted Speech:clear, normal rate, soft tone, spontaneous Thought process:mostly linear Thought content: no overt delusional content, somewhat suspicious, Mood: okay Affect: constricted but congruent SI:denies HI:denies VH/AH:less AH, not command, Delusions:some suspiciousness but no overt delusional content reported Insight/judgment:poor x 2. Memory/cog: alert, oriented x 3. Diagnostics Vital Signs (24Hr): Vital Signs - 24 hr 06/03/21 16:26 06/04/21 10:30 Temperature 97.0 F 97.1 F Pulse Rate 120 H 80 Respiratory Rate 18 Blood Pressure 121/69 122/71 Pulse Oximetry 98 Body Mass Index 24.7 Labs Results: 05/30/21 11:50 05/30/21 11:50 Medications Medications Current Medications Acetaminophen (Acetaminophen 325 Mg Tablet) 650 mg PO Q6H PRN PRN Reason: Headache/Pain Mild Scale (1-3) Al Hydroxide/Mg Hydroxide (Magnesium Hydrox/Alum Hydrox 30 Ml Oral.Susp) 30 ml PO Q6H PRN PRN Reason: Heartburn/Nausea Albuterol Sulfate (Albuterol Sulfate 90 Mcg 8 Gm Inhaler) 2 puff INHALE RQ4H PRN PRN Reason: Shortness Of Breath Benztropine Mesylate (Benztropine Mesylate 0.5 Mg Tablet) 1.5 mg PO BID [facility] Last Admin: 06/04/21 10:28 Dose: 1.5 mg Documented by: Clonazepam (Clonazepam 0.5 Mg Tablet) 0.5 mg PO DAILY PRN PRN Reason: SEVERE anxiety/panic Last Admin: 06/03/21 14:26 Dose: 0.5 mg Documented by: Haloperidol (Haloperidol 1 Mg Tablet) 2 mg PO BID [facility] Last Admin: 06/04/21 10:28 Dose: 2 mg Documented by: Haloperidol (Haloperidol 5 Mg Tablet) 5 mg PO BID PRN PRN Reason: psychosis Hydroxyzine HCl (Hydroxyzine Hcl 25 Mg Tablet) 25 mg PO Q6H PRN PRN Reason: Anxiety Lamotrigine (Lamotrigine 25 Mg Tablet) 75 mg PO DAILY [facility] Last Admin: 06/04/21 10:28 Dose: 75 mg Documented by: Magnesium Hydroxide (Milk Of Magnesia 30 Ml Oral.Susp) 30 ml PO DAILY PRN PRN Reason: Constipation Last Admin: 06/01/21 15:20 Dose: 30 ml Documented by: Melatonin (Melatonin 3 Mg Tablet) 9 mg PO BEDTIME [facility] Last Admin: 06/03/21 19:52 Dose: 9 mg Documented by: Multivitamins/Vitamin C (Multivitamin Tablet) 1 tab PO DAILY [facility] Last Admin: 06/04/21 10:28 Dose: 1 tab Documented by: Nicotine Polacrilex (Nicotine Polacrilex 2 Mg Gum) 4 mg BUCCAL Q2H PRN PRN Reason: Nicotine Cravings Last Admin: 06/04/21 10:45 Dose: 4 mg Documented by: Olanzapine (Olanzapine 5 Mg Tablet) 5 mg PO BEDTIME [facility] Last Admin: 06/03/21 19:52 Dose: 5 mg Documented by: Sertraline HCl (Sertraline Hcl 25 Mg Tablet) 25 mg PO DAILY [facility] Last Admin: 06/04/21 10:28 Dose: 25 mg Documented by: Trazodone HCl (Trazodone Hcl 50 Mg Tablet) 150 mg PO BEDTIME [facility] Last Admin: 06/03/21 19:52 Dose: 150 mg Documented by: Trazodone HCl (Trazodone Hcl 50 Mg Tablet) 50 mg PO BEDTIME PRN PRN Reason: Insomnia Vitamin D (Cholecalciferol (Vitamin D3) 25 Mcg Tablet) 25 mcg PO DAILY [facility] Last Admin: 06/04/21 10:27 Dose: 25 mcg Documented by: Allergies Allergies Allergy/AdvReac Type Severity Reaction Status Date / Time risperidone [From Risperdal] Allergy Mild gain weight Verified 04/22/21 14:19 aripiprazole [Abilify] Allergy Unknown gain weight Verified 04/22/21 14:20 cariprazine [From Vraylar] AdvReac Verified 04/22/21 14:18 paliperidone AdvReac dystonia Verified 02/24/21 01:27 Assessment & Plan Assessment & Plan (1) Schizoaffective disorder, bipolar type: Status: Acute Code(s): F25.0 - Schizoaffective disorder, bipolar type Assessment and Plan: Liane is a 20 y.o. female who carries a dx of schizoaffective disorder, bipolar type, hx of cannabis use disorder (no recent use). Utox negative. Hx of multiple psych hospitalizations, CCS evals, childhood psych hx. Mom is current legal guardian. Presenting with paranoid ideations and command AH. Recent med change, haldol 5 mg discontinued and zyprexa 5 mg QHS started in Op setting. Liane does not want med changes at this time, however I encouraged her to consider re-increasing haldol due to previous stability. Consider re-starting vraylar, as she reportedly did well on this in OP setting, as well as increasing lamotrigine dose to target sx of depression, impulsivity. Plan: Continue per primary treatment team. Continue?Haldol to 2 mg BID, Lamictal to 50 mg daily, Benztropine to 1.5 mg bid, zyprexa 5 mg QHS Monitor response to medications. Monitor for safety in the milieu. Discharge on stabilization. Patient seen. Chart reviewed. Discussed with team. Obtain collateral contact info?as needed 05/31/21: Pt declines to discuss med changes. Will continue to attempt with pt. Labile presentation. Reports she needs a detention. 06/01/21: More forthcoming today regarding what her perceptions are of how she is doing. She identifies not having a solid foundation of life skills for appropriate self care and as a result is returning to past behavioral patterns which have not been helpful for her. This, along with very low self-esteem, psychosis, misperceptions of past actions appear to have created current decompensation. Plan: Increase Lamictal to 75 mg daily Begin Sertraline 25 mg daily 06/02/21: Continue current regime. Pt per team exhibiting sx of eating disordered behaviors-increase in nicotine, food restriction, possibly due to recent return to Olanzapine (by hx a 13 lb weight gain in one week when last inpatient). Recent decrease of Haldol-pt willing to explore-will follow. 1 Greater than 50% of the session was spent on counseling and/or coordination of care Reason for contiued inpatient stay Substantial Risk for: inability to function
[2021-06-04] MEDS: hydrOXYzine HCL 25 MG TABLET PO (15:59)
[2021-06-04 18:00] VITALS: BP 127/78; PULSE 86; TEMP 36.7
[2021-06-04] MEDS: Melatonin 3 MG TABLET 9 MG PO (20:28)
[2021-06-04] MEDS: OLANZapine 5 MG TABLET PO (20:28)
[2021-06-05] MEDS: Cholecalciferol (Vitamin D3) 25 MCG TABLET PO (09:03)
[2021-06-05] MEDS: Benztropine Mesylate 0.5 MG TABLET 1.5 MG PO ×2 (09:03→20:01)
[2021-06-05] MEDS: HaloperidoL 1 MG TABLET 2 MG PO ×2 (09:03→20:01)
[2021-06-05] MEDS: lamoTRIgine 25 MG TABLET 75 MG PO (09:04)
[2021-06-05] MEDS: Multivitamin TABLET 1 TAB PO (09:05)
[2021-06-05] MEDS: Sertraline HCL 25 MG TABLET PO (09:05)
[2021-06-05] MEDS: Nicotine Polacrilex 2 MG GUM 4 MG BUCCAL ×5 (11:07→18:54)
--- NOTE | 2021-06-05 12:45 | HO.PSYCHPN ---
Subjective Subjective Date of Service: 06/05/21 Reason For Visit: psychosis Subjective Notes: Conditional Voluntary Interim History: Desi reports she is tolerating medications, denies current symptoms of concern, reports sleep and appetite are intact. What is observed is different. She appears withdrawn, isolative, depressed appearing. She is preoccupied per team with weight and is not eating much of her meal trays. She reports eczema patch on her arm-ordered hydrocortisone topical. Family meeting this week to review residential options. She denies depressive symptoms. Medication Compliance: Yes Side effects from medications: No Attending Groups: No Review of Systems Eczema, L arm Medical Review of Systems: unchanged Review of Systems Skin/Breast: Reports pruritus (eczema patch L forearm) Psychiatric: Reports abnormal sleep pattern, Reports anxiety and Reports depression Mental Status Exam Mental Status Exam Patient Appearance: Fatigued Patient Orientation: Person, Place, Time and Situation Level of Consciousness: Awake and Alert Patient Behavior: Talkative, Suspicious, Avoidant and Good Eye Contact Mood Description: Depressed Affect Description: Flat Patient Cognition Impaired: No Ability to Follow Directions: Good Speech Pattern: Spontaneous Speech and Soft-Spoken Memory Description: Intact Hallucinations: None (denies) Delusions: Present (appears to be preoccupied at times) Thought Process: Intact Thought Content: positive for [place] Depressive Symptoms: Diff. Making Decisions Judgement: Poor Diagnostics Vital Signs (24Hr): Vital Signs - 24 hr 06/04/21 18:00 Temperature 98.0 F Pulse Rate 86 Blood Pressure 127/78 Body Mass Index 24.7 Labs Results: 05/30/21 11:50 05/30/21 11:50 Medications Medications Current Medications Acetaminophen (Acetaminophen 325 Mg Tablet) 650 mg PO Q6H PRN PRN Reason: Headache/Pain Mild Scale (1-3) Al Hydroxide/Mg Hydroxide (Magnesium Hydrox/Alum Hydrox 30 Ml Oral.Susp) 30 ml PO Q6H PRN PRN Reason: Heartburn/Nausea Albuterol Sulfate (Albuterol Sulfate 90 Mcg 8 Gm Inhaler) 2 puff INHALE RQ4H PRN PRN Reason: Shortness Of Breath Benztropine Mesylate (Benztropine Mesylate 0.5 Mg Tablet) 1.5 mg PO BID [facility] Last Admin: 06/05/21 09:03 Dose: 1.5 mg Documented by: Clonazepam (Clonazepam 0.5 Mg Tablet) 0.5 mg PO DAILY PRN PRN Reason: SEVERE anxiety/panic Last Admin: 06/03/21 14:26 Dose: 0.5 mg Documented by: Haloperidol (Haloperidol 1 Mg Tablet) 2 mg PO BID [facility] Last Admin: 06/05/21 09:03 Dose: 2 mg Documented by: Haloperidol (Haloperidol 5 Mg Tablet) 5 mg PO BID PRN PRN Reason: psychosis Hydroxyzine HCl (Hydroxyzine Hcl 25 Mg Tablet) 25 mg PO Q6H PRN PRN Reason: Anxiety Last Admin: 06/04/21 15:59 Dose: 25 mg Documented by: Lamotrigine (Lamotrigine 25 Mg Tablet) 75 mg PO DAILY [facility] Last Admin: 06/05/21 09:04 Dose: 75 mg Documented by: Magnesium Hydroxide (Milk Of Magnesia 30 Ml Oral.Susp) 30 ml PO DAILY PRN PRN Reason: Constipation Last Admin: 06/01/21 15:20 Dose: 30 ml Documented by: Melatonin (Melatonin 3 Mg Tablet) 9 mg PO BEDTIME [facility] Last Admin: 06/04/21 20:28 Dose: 9 mg Documented by: Multivitamins/Vitamin C (Multivitamin Tablet) 1 tab PO DAILY [facility] Last Admin: 06/05/21 09:05 Dose: 1 tab Documented by: Nicotine Polacrilex (Nicotine Polacrilex 2 Mg Gum) 4 mg BUCCAL Q2H PRN PRN Reason: Nicotine Cravings Last Admin: 06/05/21 11:07 Dose: 4 mg Documented by: Olanzapine (Olanzapine 5 Mg Tablet) 5 mg PO BEDTIME [facility] Last Admin: 06/04/21 20:28 Dose: 5 mg Documented by: Sertraline HCl (Sertraline Hcl 25 Mg Tablet) 25 mg PO DAILY [facility] Last Admin: 06/05/21 09:05 Dose: 25 mg Documented by: Trazodone HCl (Trazodone Hcl 50 Mg Tablet) 150 mg PO BEDTIME [facility] Last Admin: 06/04/21 20:29 Dose: Not Given Documented by: Trazodone HCl (Trazodone Hcl 50 Mg Tablet) 50 mg PO BEDTIME PRN PRN Reason: Insomnia Vitamin D (Cholecalciferol (Vitamin D3) 25 Mcg Tablet) 25 mcg PO DAILY [facility] Last Admin: 06/05/21 09:03 Dose: 25 mcg Documented by: Allergies Allergies Allergy/AdvReac Type Severity Reaction Status Date / Time risperidone [From Risperdal] Allergy Mild gain weight Verified 04/22/21 14:19 aripiprazole [Abilify] Allergy Unknown gain weight Verified 04/22/21 14:20 cariprazine [From Vraylar] AdvReac Verified 04/22/21 14:18 paliperidone AdvReac dystonia Verified 02/24/21 01:27 Assessment & Plan Assessment & Plan (1) Schizoaffective disorder, bipolar type: Status: Acute Code(s): F25.0 - Schizoaffective disorder, bipolar type Assessment and Plan: Liane is a 20 y.o. female who carries a dx of schizoaffective disorder, bipolar type, hx of cannabis use disorder (no recent use). Utox negative. Hx of multiple psych hospitalizations, CCS evals, childhood psych hx. Mom is current legal guardian. Presenting with paranoid ideations and command AH. Recent med change, haldol 5 mg discontinued and zyprexa 5 mg QHS started in Op setting. Liane does not want med changes at this time, however I encouraged her to consider re-increasing haldol due to previous stability. Consider re-starting vraylar, as she reportedly did well on this in OP setting, as well as increasing lamotrigine dose to target sx of depression, impulsivity. Plan: Continue per primary treatment team. Continue?Haldol to 2 mg BID, Lamictal to 50 mg daily, Benztropine to 1.5 mg bid, zyprexa 5 mg QHS Monitor response to medications. Monitor for safety in the milieu. Discharge on stabilization. Patient seen. Chart reviewed. Discussed with team. Obtain collateral contact info?as needed 05/31/21: Pt declines to discuss med changes. Will continue to attempt with pt. Labile presentation. Reports she needs a long-term. 06/01/21: More forthcoming today regarding what her perceptions are of how she is doing. She identifies not having a solid foundation of life skills for appropriate self care and as a result is returning to past behavioral patterns which have not been helpful for her. This, along with very low self-esteem, psychosis, misperceptions of past actions appear to have created current decompensation. Plan: Increase Lamictal to 75 mg daily Begin Sertraline 25 mg daily 06/02/21: Continue current regime. Pt per team exhibiting sx of eating disordered behaviors-increase in nicotine, food restriction, possibly due to recent return to Olanzapine (by hx a 13 lb weight gain in one week when last inpatient). Recent decrease of Haldol-pt willing to explore-will follow. 06/05/21: Presents with increased depressive symptoms. Increase Sertraline to 50 mg daily Greater than 50% of the session was spent on counseling and/or coordination of care Patient educated on: medication risk/benefits and therapeutic strategies Informed Consent: understands and further education needed Reason for contiued inpatient stay Substantial Risk for: harm to self, inability to function and rapid decompensation
[2021-06-05 18:00] VITALS: BP 126/82; PULSE 84; RESP 16; TEMP 36.6
[2021-06-05] MEDS: Melatonin 3 MG TABLET 9 MG PO (20:01)
[2021-06-05] MEDS: OLANZapine 5 MG TABLET PO (20:01)
[2021-06-06 07:00] VITALS: BMI 26.9
[2021-06-06] MEDS: lamoTRIgine 25 MG TABLET 75 MG PO (09:05)
[2021-06-06] MEDS: Cholecalciferol (Vitamin D3) 25 MCG TABLET PO (09:05)
[2021-06-06] MEDS: HaloperidoL 1 MG TABLET 2 MG PO ×2 (09:06→20:33)
[2021-06-06] MEDS: Sertraline HCL 25 MG TABLET PO (09:06)
[2021-06-06] MEDS: Benztropine Mesylate 0.5 MG TABLET 1.5 MG PO ×2 (09:06→20:32)
[2021-06-06] MEDS: Multivitamin TABLET 1 TAB PO (09:06)
[2021-06-06 09:18] VITALS: BP 105/63; PULSE 85; RESP 16; TEMP 36.9; O2SAT 97
[2021-06-06] MEDS: Nicotine Polacrilex 2 MG GUM 4 MG BUCCAL ×5 (10:22→19:41)
--- NOTE | 2021-06-06 18:39 | HO.PSYCHPN ---
Subjective Subjective Date of Service: 06/06/21 Reason For Visit: psychosis Subjective Notes: Conditional Voluntary Interim History: Pt attended family/team meeting to discuss residential. Pt feels a detention setting will be most helpful for her at this time. Team report pt is not eating, is isolative, refusing 1:1 and concerned about issues with weight, showing these sx but denies to team and not wanting to discuss these. Medication Compliance: Yes Side effects from medications: No Attending Groups: No Review of Systems Acute medical concerns: No Medical Review of Systems: unchanged Review of Systems Reports behavioral changes Psychiatric: Reports anxiety, Reports behavioral changes, Reports change in appetite, Reports depression and Reports paranoia Mental Status Exam Mental Status Exam Patient Appearance: Fatigued Patient Orientation: Person, Place, Time and Situation Level of Consciousness: Awake and Alert Patient Behavior: Talkative, Suspicious, Avoidant and Good Eye Contact Mood Description: Depressed Affect Description: Flat Patient Cognition Impaired: No Ability to Follow Directions: Good Speech Pattern: Spontaneous Speech and Soft-Spoken Memory Description: Intact Hallucinations: None (denies) Delusions: Present (appears to be preoccupied at times) Thought Process: Intact Thought Content: positive for [place] Depressive Symptoms: Diff. Making Decisions Judgement: Poor Diagnostics Vital Signs (24Hr): Vital Signs - 24 hr 06/06/21 09:18 Temperature 98.5 F Pulse Rate 85 Respiratory Rate 16 Blood Pressure 105/63 Pulse Oximetry 97 Body Mass Index 26.9 Labs Results: 05/30/21 11:50 05/30/21 11:50 Medications Medications Current Medications Acetaminophen (Acetaminophen 325 Mg Tablet) 650 mg PO Q6H PRN PRN Reason: Headache/Pain Mild Scale (1-3) Al Hydroxide/Mg Hydroxide (Magnesium Hydrox/Alum Hydrox 30 Ml Oral.Susp) 30 ml PO Q6H PRN PRN Reason: Heartburn/Nausea Albuterol Sulfate (Albuterol Sulfate 90 Mcg 8 Gm Inhaler) 2 puff INHALE RQ4H PRN PRN Reason: Shortness Of Breath Benztropine Mesylate (Benztropine Mesylate 0.5 Mg Tablet) 1.5 mg PO BID [facility] Last Admin: 06/06/21 09:06 Dose: 1.5 mg Documented by: Haloperidol (Haloperidol 1 Mg Tablet) 2 mg PO BID [facility] Last Admin: 06/06/21 09:06 Dose: 2 mg Documented by: Haloperidol (Haloperidol 5 Mg Tablet) 5 mg PO BID PRN PRN Reason: psychosis Hydrocortisone (Hydrocortisone 1 % Cream 28.35 Gm Tube) 1 appl TOPICAL BID PRN; Protocol PRN Reason: eczema sx Hydroxyzine HCl (Hydroxyzine Hcl 25 Mg Tablet) 25 mg PO Q6H PRN PRN Reason: Anxiety Last Admin: 06/04/21 15:59 Dose: 25 mg Documented by: Lamotrigine (Lamotrigine 25 Mg Tablet) 75 mg PO DAILY [facility] Last Admin: 06/06/21 09:05 Dose: 75 mg Documented by: Magnesium Hydroxide (Milk Of Magnesia 30 Ml Oral.Susp) 30 ml PO DAILY PRN PRN Reason: Constipation Last Admin: 06/01/21 15:20 Dose: 30 ml Documented by: Melatonin (Melatonin 3 Mg Tablet) 9 mg PO BEDTIME [facility] Last Admin: 06/05/21 20:01 Dose: 9 mg Documented by: Multivitamins/Vitamin C (Multivitamin Tablet) 1 tab PO DAILY [facility] Last Admin: 06/06/21 09:06 Dose: 1 tab Documented by: Nicotine Polacrilex (Nicotine Polacrilex 2 Mg Gum) 4 mg BUCCAL Q2H PRN PRN Reason: Nicotine Cravings Last Admin: 06/06/21 17:54 Dose: 4 mg Documented by: Olanzapine (Olanzapine 5 Mg Tablet) 5 mg PO BEDTIME [facility] Last Admin: 06/05/21 20:01 Dose: 5 mg Documented by: Sertraline HCl (Sertraline Hcl 25 Mg Tablet) 25 mg PO DAILY [facility] Last Admin: 06/06/21 09:06 Dose: 25 mg Documented by: Trazodone HCl (Trazodone Hcl 50 Mg Tablet) 150 mg PO BEDTIME [facility] Last Admin: 06/05/21 20:37 Dose: Not Given Documented by: Trazodone HCl (Trazodone Hcl 50 Mg Tablet) 50 mg PO BEDTIME PRN PRN Reason: Insomnia Vitamin D (Cholecalciferol (Vitamin D3) 25 Mcg Tablet) 25 mcg PO DAILY [facility] Last Admin: 06/06/21 09:05 Dose: 25 mcg Documented by: Allergies Allergies Allergy/AdvReac Type Severity Reaction Status Date / Time risperidone [From Risperdal] Allergy Mild gain weight Verified 04/22/21 14:19 aripiprazole [Abilify] Allergy Unknown gain weight Verified 04/22/21 14:20 cariprazine [From Vraylar] AdvReac Verified 04/22/21 14:18 paliperidone AdvReac dystonia Verified 02/24/21 01:27 Assessment & Plan Assessment & Plan (1) Schizoaffective disorder, bipolar type: Status: Acute Code(s): F25.0 - Schizoaffective disorder, bipolar type Assessment and Plan: Liane is a 20 y.o. female who carries a dx of schizoaffective disorder, bipolar type, hx of cannabis use disorder (no recent use). Utox negative. Hx of multiple psych hospitalizations, CCS evals, childhood psych hx. Mom is current legal guardian. Presenting with paranoid ideations and command AH. Recent med change, haldol 5 mg discontinued and zyprexa 5 mg QHS started in Op setting. Liane does not want med changes at this time, however I encouraged her to consider re-increasing haldol due to previous stability. Consider re-starting vraylar, as she reportedly did well on this in OP setting, as well as increasing lamotrigine dose to target sx of depression, impulsivity. Plan: Continue per primary treatment team. Continue?Haldol to 2 mg BID, Lamictal to 50 mg daily, Benztropine to 1.5 mg bid, zyprexa 5 mg QHS Monitor response to medications. Monitor for safety in the milieu. Discharge on stabilization. Patient seen. Chart reviewed. Discussed with team. Obtain collateral contact info?as needed 05/31/21: Pt declines to discuss med changes. Will continue to attempt with pt. Labile presentation. Reports she needs a detention. 06/01/21: More forthcoming today regarding what her perceptions are of how she is doing. She identifies not having a solid foundation of life skills for appropriate self care and as a result is returning to past behavioral patterns which have not been helpful for her. This, along with very low self-esteem, psychosis, misperceptions of past actions appear to have created current decompensation. Plan: Increase Lamictal to 75 mg daily Begin Sertraline 25 mg daily 06/02/21: Continue current regime. Pt per team exhibiting sx of eating disordered behaviors-increase in nicotine, food restriction, possibly due to recent return to Olanzapine (by hx a 13 lb weight gain in one week when last inpatient). Recent decrease of Haldol-pt willing to explore-will follow. 06/05/21: Presents with increased depressive symptoms. Increase Sertraline to 50 mg daily 06/06/21: Isolative, team reports issues with intake. Negative sx-agrees to the increase of Sertraline. Continue to discuss regime with alternatives. Greater than 50% of the session was spent on counseling and/or coordination of care Patient educated on: therapeutic strategies Informed Consent: understands Reason for contiued inpatient stay Substantial Risk for: rapid decompensation
[2021-06-06] MEDS: OLANZapine 5 MG TABLET PO (20:32)
[2021-06-06] MEDS: Melatonin 3 MG TABLET 9 MG PO (20:32)
[2021-06-07 06:00] VITALS: BP 116/72; PULSE 78; RESP 16; TEMP 36.3; O2SAT 97
[2021-06-07] MEDS: Sertraline HCL 25 MG TABLET PO (09:13)
[2021-06-07] MEDS: HaloperidoL 1 MG TABLET 2 MG PO ×2 (09:13→20:17)
[2021-06-07] MEDS: lamoTRIgine 25 MG TABLET 75 MG PO (09:13)
[2021-06-07] MEDS: Multivitamin TABLET 1 TAB PO (09:13)
[2021-06-07] MEDS: Cholecalciferol (Vitamin D3) 25 MCG TABLET PO (09:13)
[2021-06-07] MEDS: Benztropine Mesylate 0.5 MG TABLET 1.5 MG PO ×2 (09:15→20:17)
[2021-06-07] MEDS: Nicotine Polacrilex 2 MG GUM 4 MG BUCCAL ×5 (09:55→20:18)
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
[2021-06-07 18:00] VITALS: BP 114/71; PULSE 93; RESP 20; TEMP 36.2; O2SAT 97
[2021-06-07] MEDS: Melatonin 3 MG TABLET 9 MG PO (20:17)
[2021-06-07] MEDS: OLANZapine 5 MG TABLET PO (20:17)
[2021-06-08] MEDS: lamoTRIgine 25 MG TABLET 75 MG PO (08:53)
[2021-06-08] MEDS: Benztropine Mesylate 0.5 MG TABLET 1.5 MG PO ×2 (08:53→19:52)
[2021-06-08] MEDS: HaloperidoL 1 MG TABLET 2 MG PO ×2 (08:54→19:53)
[2021-06-08] MEDS: Sertraline HCL 50 MG TABLET PO (08:54)
[2021-06-08] MEDS: Multivitamin TABLET 1 TAB PO (08:54)
[2021-06-08] MEDS: Cholecalciferol (Vitamin D3) 25 MCG TABLET PO (08:54)
[2021-06-08 09:08] VITALS: BP 101/68; PULSE 83; RESP 16; TEMP 36.7; O2SAT 98
[2021-06-08] MEDS: Nicotine Polacrilex 2 MG GUM 4 MG BUCCAL ×5 (11:12→19:53)
[2021-06-08 16:43] VITALS: BP 126/70; PULSE 116; TEMP 36.2; O2SAT 98
[2021-06-08] MEDS: Melatonin 3 MG TABLET 9 MG PO (19:52)
[2021-06-08] MEDS: OLANZapine 5 MG TABLET PO (19:53)
--- NOTE | 2021-06-08 22:21 | P.PNPSI_ITS ---
Subjective Subjective Date of Service: 06/08/21 Reason For Visit: psychosis Guardianship: Yes (Guardianship in process) Interim History: Patient withdrawn somewhat isolative. The patient guarded in one-to-one has been somewhat social on the unit. Sertraline started denies active SI in the setting Medication Compliance: Yes Mental Status Exam Mental Status Exam Patient Appearance: Appropriate Patient Orientation: Person, Place, Time and Situation Level of Consciousness: Alert Patient Behavior: Appropriate, Passive and Anxious Mood Description: Depressed, Anxious and Blunted Affect Description: Constricted Patient Cognition Impaired: No Ability to Follow Directions: Good Speech Pattern: Spontaneous Speech Memory Description: Intact Hallucinations: None (denies) Delusions: Not Present Perceptual Disturbances: Depersonalization and Derealization Thought Process: Distracted, Rumination and Goal Oriented Thought Content: positive for Intact, positive for Goal Oriented, positive for Suicidal Ideation (denies) and negative for Homicidal Ideation Depressive Symptoms: Increased Anxiety, Diff. Making Decisions, Changes in Appetite and Thoughts of /Suicide (denies) Judgement: Fair Diagnostics Vital Signs (24Hr): Vital Signs - 24 hr 06/08/21 09:08 06/08/21 16:43 Temperature 98.1 F 97.1 F Pulse Rate 83 116 H Respiratory Rate 16 Blood Pressure 101/68 126/70 Pulse Oximetry 98 98 Body Mass Index 26.9 Labs Results: 05/30/21 11:50 05/30/21 11:50 Medications Medications Current Medications Acetaminophen (Acetaminophen 325 Mg Tablet) 650 mg PO Q6H PRN PRN Reason: Headache/Pain Mild Scale (1-3) Al Hydroxide/Mg Hydroxide (Magnesium Hydrox/Alum Hydrox 30 Ml Oral.Susp) 30 ml PO Q6H PRN PRN Reason: Heartburn/Nausea Albuterol Sulfate (Albuterol Sulfate 90 Mcg 8 Gm Inhaler) 2 puff INHALE RQ4H PRN PRN Reason: Shortness Of Breath Benztropine Mesylate (Benztropine Mesylate 0.5 Mg Tablet) 1.5 mg PO BID [facility] Last Admin: 06/08/21 19:52 Dose: 1.5 mg Documented by: Haloperidol (Haloperidol 1 Mg Tablet) 2 mg PO BID [facility] Last Admin: 06/08/21 19:53 Dose: 2 mg Documented by: Haloperidol (Haloperidol 5 Mg Tablet) 5 mg PO BID PRN PRN Reason: psychosis Hydrocortisone (Hydrocortisone 1 % Cream 28.35 Gm Tube) 1 appl TOPICAL BID PRN; Protocol PRN Reason: eczema sx Hydroxyzine HCl (Hydroxyzine Hcl 25 Mg Tablet) 25 mg PO Q6H PRN PRN Reason: Anxiety Last Admin: 06/04/21 15:59 Dose: 25 mg Documented by: Lamotrigine (Lamotrigine 25 Mg Tablet) 75 mg PO DAILY [facility] Last Admin: 06/08/21 08:53 Dose: 75 mg Documented by: Magnesium Hydroxide (Milk Of Magnesia 30 Ml Oral.Susp) 30 ml PO DAILY PRN PRN Reason: Constipation Last Admin: 06/01/21 15:20 Dose: 30 ml Documented by: Melatonin (Melatonin 3 Mg Tablet) 9 mg PO BEDTIME [facility] Last Admin: 06/08/21 19:52 Dose: 9 mg Documented by: Multivitamins/Vitamin C (Multivitamin Tablet) 1 tab PO DAILY [facility] Last Admin: 06/08/21 08:54 Dose: 1 tab Documented by: Nicotine Polacrilex (Nicotine Polacrilex 2 Mg Gum) 4 mg BUCCAL Q2H PRN PRN Reason: Nicotine Cravings Last Admin: 06/08/21 19:53 Dose: 4 mg Documented by: Olanzapine (Olanzapine 5 Mg Tablet) 5 mg PO BEDTIME [facility] Last Admin: 06/08/21 19:53 Dose: 5 mg Documented by: Sertraline HCl (Sertraline Hcl 50 Mg Tablet) 50 mg PO DAILY [facility] Last Admin: 06/08/21 08:54 Dose: 50 mg Documented by: Trazodone HCl (Trazodone Hcl 50 Mg Tablet) 50 mg PO BEDTIME PRN PRN Reason: Insomnia Vitamin D (Cholecalciferol (Vitamin D3) 25 Mcg Tablet) 25 mcg PO DAILY [facility] Last Admin: 06/08/21 08:54 Dose: 25 mcg Documented by: Allergies Allergies Allergy/AdvReac Type Severity Reaction Status Date / Time risperidone [From Risperdal] Allergy Mild gain weight Verified 04/22/21 14:19 aripiprazole [Abilify] Allergy Unknown gain weight Verified 04/22/21 14:20 cariprazine [From Vraylar] AdvReac Verified 04/22/21 14:18 paliperidone AdvReac dystonia Verified 02/24/21 01:27 Assessment & Plan Assessment & Plan (1) Schizoaffective disorder, bipolar type: Status: Acute Code(s): F25.0 - Schizoaffective disorder, bipolar type Assessment and Plan: Liane is a 20 y.o. female who carries a dx of schizoaffective disorder, bipolar type, hx of cannabis use disorder (no recent use). Utox negative. Hx of multiple psych hospitalizations, CCS evals, childhood psych hx. Mom is current legal guardian. Presenting with paranoid ideations and command AH. Recent med change, haldol 5 mg discontinued and zyprexa 5 mg QHS started in Op setting. Liane does not want med changes at this time, however I encouraged her to consider re-increasing haldol due to previous stability. Consider re-starting vraylar, as she reportedly did well on this in OP setting, as well as increasing lamotrigine dose to target sx of depression, impulsivity. Plan: Continue per primary treatment team. Continue?Haldol to 2 mg BID, Lamictal to 50 mg daily, Benztropine to 1.5 mg bid, zyprexa 5 mg QHS Monitor response to medications. Monitor for safety in the milieu. Discharge on stabilization. Patient seen. Chart reviewed. Discussed with team. Obtain collateral contact info?as needed 05/31/21: Pt declines to discuss med changes. Will continue to attempt with pt. Labile presentation. Reports she needs a long-term. 06/01/21: More forthcoming today regarding what her perceptions are of how she is doing. She identifies not having a solid foundation of life skills for appropriate self care and as a result is returning to past behavioral patterns which have not been helpful for her. This, along with very low self-esteem, psychosis, misperceptions of past actions appear to have created current decompensation. Plan: Increase Lamictal to 75 mg daily Begin Sertraline 25 mg daily 06/02/21: Continue current regime. Pt per team exhibiting sx of eating disordered behaviors-increase in nicotine, food restriction, possibly due to recent return to Olanzapine (by hx a 13 lb weight gain in one week when last inpatient). Recent decrease of Haldol-pt willing to explore-will follow. 06/05/21: Presents with increased depressive symptoms. Increase Sertraline to 50 mg daily 06/06/21: Isolative, team reports issues with intake. Negative sx-agrees to the increase of Sertraline. Continue to discuss regime with alternatives. 06/07/21: Continue current plan. Consider Latuda trial to replace Olanzapine. Pt was encouraged to increase milieu/group participation and decrease isolation. 06/08/2021 continue current treatment plan encourage patient to engage more out of her room monitor for self-harming behavior thoughts no notice adverse effect from sertraline continue discharge planning Greater than 50% of the session was spent on counseling and/or coordination of care Reason for contiued inpatient stay Substantial Risk for: harm to self, inability to function and rapid decompensation
[2021-06-09] MEDS: lamoTRIgine 25 MG TABLET 75 MG PO (08:35)
[2021-06-09] MEDS: Sertraline HCL 50 MG TABLET PO (08:35)
[2021-06-09] MEDS: Benztropine Mesylate 0.5 MG TABLET 1.5 MG PO ×2 (08:35→19:55)
[2021-06-09] MEDS: Multivitamin TABLET 1 TAB PO (08:35)
[2021-06-09] MEDS: HaloperidoL 1 MG TABLET 2 MG PO ×2 (08:36→19:55)
[2021-06-09] MEDS: Cholecalciferol (Vitamin D3) 25 MCG TABLET PO (08:36)
[2021-06-09 08:49] VITALS: BP 105/69; PULSE 89; RESP 18; TEMP 36.8; O2SAT 97
[2021-06-09] MEDS: Nicotine Polacrilex 2 MG GUM 4 MG BUCCAL ×5 (11:31→20:39)
[2021-06-09 16:21] VITALS: BP 111/62; PULSE 105; TEMP 36.3
[2021-06-09] MEDS: Milk of Magnesia 30 ML ORAL.SUSP PO (19:55)
[2021-06-09] MEDS: OLANZapine 5 MG TABLET PO (19:55)
[2021-06-09] MEDS: Melatonin 3 MG TABLET 9 MG PO (19:55)
[2021-06-09] MEDS: traZODone HCL 50 MG TABLET PO (20:03)
--- NOTE | 2021-06-09 22:55 | HO.PSYCHPN ---
Subjective Subjective Date of Service: 06/09/21 Reason For Visit: psychosis Medical Problems Affecting Mental Status: No Interim History: Patient guarded limited in interaction Medication Compliance: Yes Attending Groups: No Review of Systems Medical Review of Systems: unchanged Mental Status Exam Mental Status Exam Patient Appearance: Appropriate Patient Orientation: Person, Place, Time and Situation Level of Consciousness: Alert Patient Behavior: Appropriate, Passive and Anxious Mood Description: Depressed, Anxious and Blunted Affect Description: Constricted and Blunted Patient Cognition Impaired: No Ability to Follow Directions: Good Speech Pattern: Impoverished and Spontaneous Speech Memory Description: Intact Hallucinations: None (denies in this setting) Delusions: Not Present Perceptual Disturbances: Depersonalization and Derealization Thought Process: Distracted and Rumination Thought Content: positive for Intact, positive for Goal Oriented, positive for Suicidal Ideation (denies active self-harm in this setting) and negative for Homicidal Ideation Depressive Symptoms: Increased Anxiety, Diff. Making Decisions, Changes in Appetite and Thoughts of /Suicide (denies) Judgement: Fair Diagnostics Vital Signs (24Hr): Vital Signs - 24 hr 06/08/21 09:08 06/08/21 16:43 Temperature 98.1 F 97.1 F Pulse Rate 83 116 H Respiratory Rate 16 Blood Pressure 101/68 126/70 Pulse Oximetry 98 98 Body Mass Index 26.9 Labs Results: 05/30/21 11:50 05/30/21 11:50 Medications Medications Current Medications Acetaminophen (Acetaminophen 325 Mg Tablet) 650 mg PO Q6H PRN PRN Reason: Headache/Pain Mild Scale (1-3) Al Hydroxide/Mg Hydroxide (Magnesium Hydrox/Alum Hydrox 30 Ml Oral.Susp) 30 ml PO Q6H PRN PRN Reason: Heartburn/Nausea Albuterol Sulfate (Albuterol Sulfate 90 Mcg 8 Gm Inhaler) 2 puff INHALE RQ4H PRN PRN Reason: Shortness Of Breath Benztropine Mesylate (Benztropine Mesylate 0.5 Mg Tablet) 1.5 mg PO BID [facility] Last Admin: 06/08/21 19:52 Dose: 1.5 mg Documented by: Haloperidol (Haloperidol 1 Mg Tablet) 2 mg PO BID [facility] Last Admin: 06/08/21 19:53 Dose: 2 mg Documented by: Haloperidol (Haloperidol 5 Mg Tablet) 5 mg PO BID PRN PRN Reason: psychosis Hydrocortisone (Hydrocortisone 1 % Cream 28.35 Gm Tube) 1 appl TOPICAL BID PRN; Protocol PRN Reason: eczema sx Hydroxyzine HCl (Hydroxyzine Hcl 25 Mg Tablet) 25 mg PO Q6H PRN PRN Reason: Anxiety Last Admin: 06/04/21 15:59 Dose: 25 mg Documented by: Lamotrigine (Lamotrigine 25 Mg Tablet) 75 mg PO DAILY [facility] Last Admin: 06/08/21 08:53 Dose: 75 mg Documented by: Magnesium Hydroxide (Milk Of Magnesia 30 Ml Oral.Susp) 30 ml PO DAILY PRN PRN Reason: Constipation Last Admin: 06/01/21 15:20 Dose: 30 ml Documented by: Melatonin (Melatonin 3 Mg Tablet) 9 mg PO BEDTIME [facility] Last Admin: 06/08/21 19:52 Dose: 9 mg Documented by: Multivitamins/Vitamin C (Multivitamin Tablet) 1 tab PO DAILY [facility] Last Admin: 06/08/21 08:54 Dose: 1 tab Documented by: Nicotine Polacrilex (Nicotine Polacrilex 2 Mg Gum) 4 mg BUCCAL Q2H PRN PRN Reason: Nicotine Cravings Last Admin: 06/08/21 19:53 Dose: 4 mg Documented by: Olanzapine (Olanzapine 5 Mg Tablet) 5 mg PO BEDTIME [facility] Last Admin: 06/08/21 19:53 Dose: 5 mg Documented by: Sertraline HCl (Sertraline Hcl 50 Mg Tablet) 50 mg PO DAILY [facility] Last Admin: 06/08/21 08:54 Dose: 50 mg Documented by: Trazodone HCl (Trazodone Hcl 50 Mg Tablet) 50 mg PO BEDTIME PRN PRN Reason: Insomnia Vitamin D (Cholecalciferol (Vitamin D3) 25 Mcg Tablet) 25 mcg PO DAILY [facility] Last Admin: 06/08/21 08:54 Dose: 25 mcg Documented by: Allergies Allergies Allergy/AdvReac Type Severity Reaction Status Date / Time risperidone [From Risperdal] Allergy Mild gain weight Verified 04/22/21 14:19 aripiprazole [Abilify] Allergy Unknown gain weight Verified 04/22/21 14:20 cariprazine [From Vraylar] AdvReac Verified 04/22/21 14:18 paliperidone AdvReac dystonia Verified 02/24/21 01:27 Assessment & Plan Assessment & Plan (1) Schizoaffective disorder, bipolar type: Status: Acute Code(s): F25.0 - Schizoaffective disorder, bipolar type Assessment and Plan: Liane is a 20 y.o. female who carries a dx of schizoaffective disorder, bipolar type, hx of cannabis use disorder (no recent use). Utox negative. Hx of multiple psych hospitalizations, CCS evals, childhood psych hx. Mom is current legal guardian. Presenting with paranoid ideations and command AH. Recent med change, haldol 5 mg discontinued and zyprexa 5 mg QHS started in Op setting. Liane does not want med changes at this time, however I encouraged her to consider re-increasing haldol due to previous stability. Consider re-starting vraylar, as she reportedly did well on this in OP setting, as well as increasing lamotrigine dose to target sx of depression, impulsivity. Plan: Continue per primary treatment team. Continue?Haldol to 2 mg BID, Lamictal to 50 mg daily, Benztropine to 1.5 mg bid, zyprexa 5 mg QHS Monitor response to medications. Monitor for safety in the milieu. Discharge on stabilization. Patient seen. Chart reviewed. Discussed with team. Obtain collateral contact info?as needed 05/31/21: Pt declines to discuss med changes. Will continue to attempt with pt. Labile presentation. Reports she needs a jail. 06/01/21: More forthcoming today regarding what her perceptions are of how she is doing. She identifies not having a solid foundation of life skills for appropriate self care and as a result is returning to past behavioral patterns which have not been helpful for her. This, along with very low self-esteem, psychosis, misperceptions of past actions appear to have created current decompensation. Plan: Increase Lamictal to 75 mg daily Begin Sertraline 25 mg daily 06/02/21: Continue current regime. Pt per team exhibiting sx of eating disordered behaviors-increase in nicotine, food restriction, possibly due to recent return to Olanzapine (by hx a 13 lb weight gain in one week when last inpatient). Recent decrease of Haldol-pt willing to explore-will follow. 06/05/21: Presents with increased depressive symptoms. Increase Sertraline to 50 mg daily 06/06/21: Isolative, team reports issues with intake. Negative sx-agrees to the increase of Sertraline. Continue to discuss regime with alternatives. 06/07/21: Continue current plan. Consider Latuda trial to replace Olanzapine. Pt was encouraged to increase milieu/group participation and decrease isolation. 06/08/2021 continue current treatment plan encourage patient to engage more out of her room monitor for self-harming behavior thoughts no notice adverse effect from sertraline continue discharge planning 06/09/2021 Continue current treatment plan agree with change to Latuda encourage more socialization and behavioral activation monitor for psychotic symptoms monitor safety continue discharge planning Greater than 50% of the session was spent on counseling and/or coordination of care Reason for contiued inpatient stay Substantial Risk for: harm to self and rapid decompensation
[2021-06-10] MEDS: lamoTRIgine 25 MG TABLET 75 MG PO (09:39)
[2021-06-10] MEDS: Nicotine Polacrilex 2 MG GUM 4 MG BUCCAL ×5 (09:39→20:40)
[2021-06-10] MEDS: HaloperidoL 1 MG TABLET 2 MG PO ×2 (09:39→20:18)
[2021-06-10] MEDS: Cholecalciferol (Vitamin D3) 25 MCG TABLET PO (09:39)
[2021-06-10] MEDS: Sertraline HCL 50 MG TABLET PO (09:39)
[2021-06-10] MEDS: Multivitamin TABLET 1 TAB PO (09:39)
[2021-06-10] MEDS: Benztropine Mesylate 0.5 MG TABLET 1.5 MG PO ×2 (09:39→20:18)
[2021-06-10 18:00] VITALS: BP 117/71; PULSE 112; RESP 18; TEMP 36.5; O2SAT 97
--- NOTE | 2021-06-10 20:02 | HO.PSYCHPN ---
Subjective Subjective Date of Service: 06/10/21 Reason For Visit: psychosis Subjective Notes: Conditional Voluntary Healthcare Proxy: No Guardianship: Yes Medical Problems Affecting Mental Status: No Interim History: Pt requesting rescheduling appt with Susana Koenig CNP -Rescheduled for 06/12 2pm. Pt's mother informed of [facility] not having the ability to provided [employer] testing while in pt. Respite will probably have a bed for pt on 06/13. Pt per team spent the weekend mostly in her room, some milieu involvement. Medication Compliance: Yes Side effects from medications: No Attending Groups: Intermittent Review of Systems Acute medical concerns: No Medical Review of Systems: unchanged Review of Systems Reports behavioral changes Psychiatric: Reports anxiety, Reports behavioral changes, Reports change in appetite, Reports depression, Reports difficulty concentrating, Reports auditory hallucinations, Reports hopelessness, Reports anhedonia and Reports suicidal ideation (denies) Mental Status Exam Mental Status Exam Patient Appearance: Fatigued Patient Orientation: Person, Place, Time and Situation Level of Consciousness: Alert Patient Behavior: Talkative, Cooperative and Good Eye Contact Mood Description: Withdrawn Affect Description: Withdrawn Patient Cognition Impaired: No Ability to Follow Directions: Good Speech Pattern: Spontaneous Speech Memory Description: Intact Hallucinations: None Delusions: Not Present Thought Process: Distracted and Goal Oriented Thought Content: positive for Goal Oriented and positive for Suicidal Ideation (denies) Depressive Symptoms: Increased Anxiety, Changes in Appetite and Thoughts of /Suicide (denies) Judgement: Fair Diagnostics Vital Signs (24Hr): Vital Signs - 24 hr 06/10/21 18:00 Temperature 97.7 F Pulse Rate 112 H Respiratory Rate 18 Blood Pressure 117/71 Pulse Oximetry 97 Body Mass Index 26.9 Labs Results: 05/30/21 11:50 05/30/21 11:50 Medications Medications Current Medications Acetaminophen (Acetaminophen 325 Mg Tablet) 650 mg PO Q6H PRN PRN Reason: Headache/Pain Mild Scale (1-3) Al Hydroxide/Mg Hydroxide (Magnesium Hydrox/Alum Hydrox 30 Ml Oral.Susp) 30 ml PO Q6H PRN PRN Reason: Heartburn/Nausea Albuterol Sulfate (Albuterol Sulfate 90 Mcg 8 Gm Inhaler) 2 puff INHALE RQ4H PRN PRN Reason: Shortness Of Breath Benztropine Mesylate (Benztropine Mesylate 0.5 Mg Tablet) 1.5 mg PO BID [facility] Last Admin: 06/10/21 09:39 Dose: 1.5 mg Documented by: Haloperidol (Haloperidol 1 Mg Tablet) 2 mg PO BID [facility] Last Admin: 06/10/21 09:39 Dose: 2 mg Documented by: Haloperidol (Haloperidol 5 Mg Tablet) 5 mg PO BID PRN PRN Reason: psychosis Hydrocortisone (Hydrocortisone 1 % Cream 28.35 Gm Tube) 1 appl TOPICAL BID PRN; Protocol PRN Reason: eczema sx Hydroxyzine HCl (Hydroxyzine Hcl 25 Mg Tablet) 25 mg PO Q6H PRN PRN Reason: Anxiety Last Admin: 06/04/21 15:59 Dose: 25 mg Documented by: Lamotrigine (Lamotrigine 25 Mg Tablet) 75 mg PO DAILY [facility] Last Admin: 06/10/21 09:39 Dose: 75 mg Documented by: Magnesium Hydroxide (Milk Of Magnesia 30 Ml Oral.Susp) 30 ml PO DAILY PRN PRN Reason: Constipation Last Admin: 06/09/21 19:55 Dose: 30 ml Documented by: Melatonin (Melatonin 3 Mg Tablet) 9 mg PO BEDTIME [facility] Last Admin: 06/09/21 19:55 Dose: 9 mg Documented by: Multivitamins/Vitamin C (Multivitamin Tablet) 1 tab PO DAILY [facility] Last Admin: 06/10/21 09:39 Dose: 1 tab Documented by: Nicotine Polacrilex (Nicotine Polacrilex 2 Mg Gum) 4 mg BUCCAL Q2H PRN PRN Reason: Nicotine Cravings Last Admin: 06/10/21 18:29 Dose: 4 mg Documented by: Olanzapine (Olanzapine 5 Mg Tablet) 5 mg PO BEDTIME [facility] Last Admin: 06/09/21 19:55 Dose: 5 mg Documented by: Sertraline HCl (Sertraline Hcl 50 Mg Tablet) 50 mg PO DAILY [facility] Last Admin: 06/10/21 09:39 Dose: 50 mg Documented by: Trazodone HCl (Trazodone Hcl 50 Mg Tablet) 50 mg PO BEDTIME PRN PRN Reason: Insomnia Last Admin: 06/09/21 20:03 Dose: 50 mg Documented by: Vitamin D (Cholecalciferol (Vitamin D3) 25 Mcg Tablet) 25 mcg PO DAILY [facility] Last Admin: 06/10/21 09:39 Dose: 25 mcg Documented by: Allergies Allergies Allergy/AdvReac Type Severity Reaction Status Date / Time risperidone [From Risperdal] Allergy Mild gain weight Verified 04/22/21 14:19 aripiprazole [Abilify] Allergy Unknown gain weight Verified 04/22/21 14:20 cariprazine [From Vraylar] AdvReac Verified 04/22/21 14:18 paliperidone AdvReac dystonia Verified 02/24/21 01:27 Assessment & Plan Assessment & Plan (1) Schizoaffective disorder, bipolar type: Status: Acute Code(s): F25.0 - Schizoaffective disorder, bipolar type Assessment and Plan: Liane is a 20 y.o. female who carries a dx of schizoaffective disorder, bipolar type, hx of cannabis use disorder (no recent use). Utox negative. Hx of multiple psych hospitalizations, CCS evals, childhood psych hx. Mom is current legal guardian. Presenting with paranoid ideations and command AH. Recent med change, haldol 5 mg discontinued and zyprexa 5 mg QHS started in Op setting. Liane does not want med changes at this time, however I encouraged her to consider re-increasing haldol due to previous stability. Consider re-starting vraylar, as she reportedly did well on this in OP setting, as well as increasing lamotrigine dose to target sx of depression, impulsivity. Plan: Continue per primary treatment team. Continue?Haldol to 2 mg BID, Lamictal to 50 mg daily, Benztropine to 1.5 mg bid, zyprexa 5 mg QHS Monitor response to medications. Monitor for safety in the milieu. Discharge on stabilization. Patient seen. Chart reviewed. Discussed with team. Obtain collateral contact info?as needed 05/31/21: Pt declines to discuss med changes. Will continue to attempt with pt. Labile presentation. Reports she needs a fdc. 06/01/21: More forthcoming today regarding what her perceptions are of how she is doing. She identifies not having a solid foundation of life skills for appropriate self care and as a result is returning to past behavioral patterns which have not been helpful for her. This, along with very low self-esteem, psychosis, misperceptions of past actions appear to have created current decompensation. Plan: Increase Lamictal to 75 mg daily Begin Sertraline 25 mg daily 06/02/21: Continue current regime. Pt per team exhibiting sx of eating disordered behaviors-increase in nicotine, food restriction, possibly due to recent return to Olanzapine (by hx a 13 lb weight gain in one week when last inpatient). Recent decrease of Haldol-pt willing to explore-will follow. 06/05/21: Presents with increased depressive symptoms. Increase Sertraline to 50 mg daily 06/06/21: Isolative, team reports issues with intake. Negative sx-agrees to the increase of Sertraline. Continue to discuss regime with alternatives. 06/07/21: Continue current plan. Consider Latuda trial to replace Olanzapine. Pt was encouraged to increase milieu/group participation and decrease isolation. 06/08/2021 continue current treatment plan encourage patient to engage more out of her room monitor for self-harming behavior thoughts no notice adverse effect from sertraline continue discharge planning 06/09/2021 Continue current treatment plan agree with change to Latuda encourage more socialization and behavioral activation monitor for psychotic symptoms monitor safety continue discharge planning 06/10/21 Appt with Susana Koenig 06/13 2pm [facility] currently not able to complete [employer]-will discuss with guardian, pt's mom. Continue current regime Possible respite bed for 06/13. Continue to encourage pt to be involved in milieu. Greater than 50% of the session was spent on counseling and/or coordination of care Patient educated on: therapeutic strategies Informed Consent: understands Reason for contiued inpatient stay Substantial Risk for: harm to self, inability to function and rapid decompensation
[2021-06-10] MEDS: Melatonin 3 MG TABLET 9 MG PO (20:18)
[2021-06-10] MEDS: OLANZapine 5 MG TABLET PO (20:18)
[2021-06-10] MEDS: Milk of Magnesia 30 ML ORAL.SUSP PO (23:05)
[2021-06-10] MEDS: traZODone HCL 50 MG TABLET PO (23:05)
--- NOTE | 2021-06-11 | ECG_ITS ---
Test Reason : haldol/zyprexa titration Blood Pressure : / mmHG Vent. Rate : 072 BPM Atrial Rate : 072 BPM P-R Int : 168 ms QRS Dur : 086 ms QT Int : 398 ms P-R-T Axes : 039 075 038 degrees QTc Int : 435 ms Normal sinus rhythm Normal ECG When compared with ECG of 30-MAY-2021 12:21, No significant change was found Referred By: Zee Washington Electronically Signed By:CHET DUDLEY MD
[2021-06-11] MEDS: Cholecalciferol (Vitamin D3) 25 MCG TABLET PO (09:32)
[2021-06-11] MEDS: Multivitamin TABLET 1 TAB PO (09:32)
[2021-06-11] MEDS: Benztropine Mesylate 0.5 MG TABLET 1.5 MG PO ×2 (09:32→20:05)
[2021-06-11] MEDS: Sertraline HCL 50 MG TABLET PO (09:32)
[2021-06-11] MEDS: lamoTRIgine 25 MG TABLET 75 MG PO (09:32)
[2021-06-11] MEDS: HaloperidoL 1 MG TABLET 2 MG PO ×2 (09:32→20:04)
[2021-06-11] MEDS: Nicotine Polacrilex 2 MG GUM 4 MG BUCCAL ×6 (10:14→20:10)
--- NOTE | 2021-06-11 11:31 | HO.PSYCHPN ---
Subjective Subjective Date of Service: 06/11/21 Reason For Visit: psychosis Subjective Notes: Conditional Voluntary Guardianship: Yes Medical Problems Affecting Mental Status: No Interim History: Discussion with pt's mother, Samina (guardian) regarding [facility] not offering GeneSight testing for in patients. Mother is concerned about this lack of service and will contact administration with concerns. Discussed cross titration Olanzapine to Latuda in light of Genesight not being offered in patient as discussed in family meeting 06/07. Samina would like pt to begin cross titration. Pt is in agreement, having asked keno writer/runner to have my mom make that decision. Will begin 20 mg Latuda tonight with Olanzapine decrease to 3.75 mg. Medication Compliance: Yes Side effects from medications: No Attending Groups: Intermittent Review of Systems Acute medical concerns: No Pt has scheduled appointment with Susana DeutschLamoure PROFESSOR OF COMMUNICATION on 06/12/21. Medical Review of Systems: unchanged Review of Systems Reports behavioral changes Psychiatric: Reports anxiety, Reports behavioral changes, Reports change in appetite, Reports depression, Reports difficulty concentrating, Reports auditory hallucinations, Reports hopelessness, Reports anhedonia and Reports suicidal ideation (denies) Mental Status Exam Mental Status Exam Patient Appearance: Fatigued Patient Orientation: Person, Place, Time and Situation Level of Consciousness: Alert Patient Behavior: Talkative, Cooperative and Good Eye Contact Mood Description: Withdrawn Affect Description: Withdrawn Patient Cognition Impaired: No Ability to Follow Directions: Good Speech Pattern: Spontaneous Speech Memory Description: Intact Hallucinations: None Delusions: Not Present Thought Process: Distracted and Goal Oriented Thought Content: positive for Goal Oriented and positive for Suicidal Ideation (denies) Depressive Symptoms: Increased Anxiety, Changes in Appetite and Thoughts of /Suicide (denies) Judgement: Fair Diagnostics Vital Signs (24Hr): Vital Signs - 24 hr 06/10/21 18:00 Temperature 97.7 F Pulse Rate 112 H Respiratory Rate 18 Blood Pressure 117/71 Pulse Oximetry 97 Body Mass Index 26.9 Labs Results: 05/30/21 11:50 05/30/21 11:50 Medications Medications Current Medications Acetaminophen (Acetaminophen 325 Mg Tablet) 650 mg PO Q6H PRN PRN Reason: Headache/Pain Mild Scale (1-3) Al Hydroxide/Mg Hydroxide (Magnesium Hydrox/Alum Hydrox 30 Ml Oral.Susp) 30 ml PO Q6H PRN PRN Reason: Heartburn/Nausea Albuterol Sulfate (Albuterol Sulfate 90 Mcg 8 Gm Inhaler) 2 puff INHALE RQ4H PRN PRN Reason: Shortness Of Breath Benztropine Mesylate (Benztropine Mesylate 0.5 Mg Tablet) 1.5 mg PO BID [facility] Last Admin: 06/11/21 09:32 Dose: 1.5 mg Documented by: Haloperidol (Haloperidol 1 Mg Tablet) 2 mg PO BID [facility] Last Admin: 06/11/21 09:32 Dose: 2 mg Documented by: Haloperidol (Haloperidol 5 Mg Tablet) 5 mg PO BID PRN PRN Reason: psychosis Hydrocortisone (Hydrocortisone 1 % Cream 28.35 Gm Tube) 1 appl TOPICAL BID PRN; Protocol PRN Reason: eczema sx Hydroxyzine HCl (Hydroxyzine Hcl 25 Mg Tablet) 25 mg PO Q6H PRN PRN Reason: Anxiety Last Admin: 06/04/21 15:59 Dose: 25 mg Documented by: Lamotrigine (Lamotrigine 25 Mg Tablet) 75 mg PO DAILY [facility] Last Admin: 06/11/21 09:32 Dose: 75 mg Documented by: Magnesium Hydroxide (Milk Of Magnesia 30 Ml Oral.Susp) 30 ml PO DAILY PRN PRN Reason: Constipation Last Admin: 06/10/21 23:05 Dose: 30 ml Documented by: Melatonin (Melatonin 3 Mg Tablet) 9 mg PO BEDTIME [facility] Last Admin: 06/10/21 20:18 Dose: 9 mg Documented by: Multivitamins/Vitamin C (Multivitamin Tablet) 1 tab PO DAILY [facility] Last Admin: 06/11/21 09:32 Dose: 1 tab Documented by: Nicotine Polacrilex (Nicotine Polacrilex 2 Mg Gum) 4 mg BUCCAL Q2H PRN PRN Reason: Nicotine Cravings Last Admin: 06/11/21 10:14 Dose: 4 mg Documented by: Olanzapine (Olanzapine 5 Mg Tablet) 5 mg PO BEDTIME [facility] Last Admin: 06/10/21 20:18 Dose: 5 mg Documented by: Sertraline HCl (Sertraline Hcl 50 Mg Tablet) 50 mg PO DAILY [facility] Last Admin: 06/11/21 09:32 Dose: 50 mg Documented by: Trazodone HCl (Trazodone Hcl 50 Mg Tablet) 50 mg PO BEDTIME PRN PRN Reason: Insomnia Last Admin: 06/10/21 23:05 Dose: 50 mg Documented by: Vitamin D (Cholecalciferol (Vitamin D3) 25 Mcg Tablet) 25 mcg PO DAILY [facility] Last Admin: 06/11/21 09:32 Dose: 25 mcg Documented by: Allergies Allergies Allergy/AdvReac Type Severity Reaction Status Date / Time risperidone [From Risperdal] Allergy Mild gain weight Verified 04/22/21 14:19 aripiprazole [Abilify] Allergy Unknown gain weight Verified 04/22/21 14:20 cariprazine [From Vraylar] AdvReac Verified 04/22/21 14:18 paliperidone AdvReac dystonia Verified 02/24/21 01:27 Assessment & Plan Assessment & Plan (1) Schizoaffective disorder, bipolar type: Status: Acute Code(s): F25.0 - Schizoaffective disorder, bipolar type Assessment and Plan: Liane is a 20 y.o. female who carries a dx of schizoaffective disorder, bipolar type, hx of cannabis use disorder (no recent use). Utox negative. Hx of multiple psych hospitalizations, CCS evals, childhood psych hx. Mom is current legal guardian. Presenting with paranoid ideations and command AH. Recent med change, haldol 5 mg discontinued and zyprexa 5 mg QHS started in Op setting. Liane does not want med changes at this time, however I encouraged her to consider re-increasing haldol due to previous stability. Consider re-starting vraylar, as she reportedly did well on this in OP setting, as well as increasing lamotrigine dose to target sx of depression, impulsivity. Plan: Continue per primary treatment team. Continue?Haldol to 2 mg BID, Lamictal to 50 mg daily, Benztropine to 1.5 mg bid, zyprexa 5 mg QHS Monitor response to medications. Monitor for safety in the milieu. Discharge on stabilization. Patient seen. Chart reviewed. Discussed with team. Obtain collateral contact info?as needed 05/31/21: Pt declines to discuss med changes. Will continue to attempt with pt. Labile presentation. Reports she needs a half-way. 06/01/21: More forthcoming today regarding what her perceptions are of how she is doing. She identifies not having a solid foundation of life skills for appropriate self care and as a result is returning to past behavioral patterns which have not been helpful for her. This, along with very low self-esteem, psychosis, misperceptions of past actions appear to have created current decompensation. Plan: Increase Lamictal to 75 mg daily Begin Sertraline 25 mg daily 06/02/21: Continue current regime. Pt per team exhibiting sx of eating disordered behaviors-increase in nicotine, food restriction, possibly due to recent return to Olanzapine (by hx a 13 lb weight gain in one week when last inpatient). Recent decrease of Haldol-pt willing to explore-will follow. 06/05/21: Presents with increased depressive symptoms. Increase Sertraline to 50 mg daily 06/06/21: Isolative, team reports issues with intake. Negative sx-agrees to the increase of Sertraline. Continue to discuss regime with alternatives. 06/07/21: Continue current plan. Consider Latuda trial to replace Olanzapine. Pt was encouraged to increase milieu/group participation and decrease isolation. 06/08/2021 continue current treatment plan encourage patient to engage more out of her room monitor for self-harming behavior thoughts no notice adverse effect from sertraline continue discharge planning 06/09/2021 Continue current treatment plan agree with change to Latuda encourage more socialization and behavioral activation monitor for psychotic symptoms monitor safety continue discharge planning 06/10/21 Appt with Susana Koenig 06/12 2pm [facility] currently not able to complete GeneSight Testing-will discuss with guardian, pt's mom. Continue current regime Possible respite bed for 06/13. Continue to encourage pt to be involved in milieu. 06/11/21 Latuda 20 mg HS Decrease Olanzapine to 3.75 mg HS Discussed with mother and pt who are both in agreement. Monitor for SE Greater than 50% of the session was spent on counseling and/or coordination of care Patient educated on: medication risk/benefits Informed Consent: understands Reason for contiued inpatient stay Substantial Risk for: harm to self, inability to function and rapid decompensation
[2021-06-11 16:43] VITALS: BP 114/66; PULSE 82; RESP 20; TEMP 36.7; O2SAT 97
[2021-06-11] MEDS: OLANZapine 5 MG TABLET 3.75 MG PO (20:03)
[2021-06-11] MEDS: Melatonin 3 MG TABLET 9 MG PO (20:03)
[2021-06-11] MEDS: Lurasidone HCl 20 MG TABLET PO (20:05)
[2021-06-11] MEDS: traZODone HCL 50 MG TABLET PO (20:10)
[2021-06-12] MEDS: Multivitamin TABLET 1 TAB PO (08:42)
[2021-06-12] MEDS: HaloperidoL 1 MG TABLET 2 MG PO ×2 (08:42→21:16)
[2021-06-12] MEDS: Cholecalciferol (Vitamin D3) 25 MCG TABLET PO (08:42)
[2021-06-12] MEDS: lamoTRIgine 25 MG TABLET 75 MG PO (08:42)
[2021-06-12] MEDS: Sertraline HCL 50 MG TABLET PO (08:42)
[2021-06-12] MEDS: Benztropine Mesylate 0.5 MG TABLET 1.5 MG PO ×2 (08:42→21:14)
[2021-06-12] MEDS: Nicotine Polacrilex 2 MG GUM 4 MG BUCCAL ×6 (10:02→21:49)
[2021-06-12 20:55] VITALS: BP 120/70; PULSE 85; TEMP 36.7
[2021-06-12] MEDS: Lurasidone HCl 20 MG TABLET PO (21:14)
[2021-06-12] MEDS: OLANZapine 2.5 MG TABLET 3.75 MG PO (21:15)
[2021-06-12] MEDS: Melatonin 3 MG TABLET 9 MG PO (21:16)
--- NOTE | 2021-06-12 22:19 | P.PNPSI_ITS ---
Subjective Subjective Date of Service: 06/12/21 Reason For Visit: psychosis Subjective Notes: Conditional Voluntary Healthcare Proxy: No Guardianship: No Medical Problems Affecting Mental Status: No Interim History: Tolerating initial phase of cross taper from Olanzapine to Latuda. PA sent to insurance [facility]. Plans discharge to respite on 06/13. States she is looking forward to this transfer. Denies SE. Medication Compliance: Yes Side effects from medications: No Attending Groups: Intermittent Review of Systems Acute medical concerns: No Medical Review of Systems: unchanged Review of Systems Psychiatric: Reports no additional psychiatric complaints, Reports anxiety and Reports suicidal ideation (denies) Mental Status Exam Mental Status Exam Patient Appearance: Appropriate Patient Orientation: Person, Place, Time and Situation Level of Consciousness: Alert Patient Behavior: Appropriate, Talkative, Cooperative and Good Eye Contact Mood Description: Flat Affect Description: Flat Patient Cognition Impaired: No Ability to Follow Directions: Good Speech Pattern: Spontaneous Speech Memory Description: Episodic Impaired Hallucinations: None Delusions: Not Present Perceptual Disturbances: Depersonalization Thought Process: Intact and Goal Oriented Thought Content: positive for Intact, positive for Goal Oriented and positive for Suicidal Ideation (denies) Judgement: Fair Diagnostics Vital Signs (24Hr): Body Mass Index 26.9 Labs Results: 05/30/21 11:50 05/30/21 11:50 Medications Medications Current Medications Acetaminophen (Acetaminophen 325 Mg Tablet) 650 mg PO Q6H PRN PRN Reason: Headache/Pain Mild Scale (1-3) Al Hydroxide/Mg Hydroxide (Magnesium Hydrox/Alum Hydrox 30 Ml Oral.Susp) 30 ml PO Q6H PRN PRN Reason: Heartburn/Nausea Albuterol Sulfate (Albuterol Sulfate 90 Mcg 8 Gm Inhaler) 2 puff INHALE RQ4H PRN PRN Reason: Shortness Of Breath Benztropine Mesylate (Benztropine Mesylate 0.5 Mg Tablet) 1.5 mg PO BID [facility] Last Admin: 06/12/21 21:14 Dose: 1.5 mg Documented by: Haloperidol (Haloperidol 1 Mg Tablet) 2 mg PO BID [facility] Last Admin: 06/12/21 21:16 Dose: 2 mg Documented by: Haloperidol (Haloperidol 5 Mg Tablet) 5 mg PO BID PRN PRN Reason: psychosis Hydrocortisone (Hydrocortisone 1 % Cream 28.35 Gm Tube) 1 appl TOPICAL BID PRN; Protocol PRN Reason: eczema sx Hydroxyzine HCl (Hydroxyzine Hcl 25 Mg Tablet) 25 mg PO Q6H PRN PRN Reason: Anxiety Last Admin: 06/04/21 15:59 Dose: 25 mg Documented by: Lamotrigine (Lamotrigine 25 Mg Tablet) 75 mg PO DAILY [facility] Last Admin: 06/12/21 08:42 Dose: 75 mg Documented by: Lurasidone HCl (Lurasidone Hcl 20 Mg Tablet) 20 mg PO BEDTIME [facility] Last Admin: 06/12/21 21:14 Dose: 20 mg Documented by: Magnesium Hydroxide (Milk Of Magnesia 30 Ml Oral.Susp) 30 ml PO DAILY PRN PRN Reason: Constipation Last Admin: 06/10/21 23:05 Dose: 30 ml Documented by: Melatonin (Melatonin 3 Mg Tablet) 9 mg PO BEDTIME [facility] Last Admin: 06/12/21 21:16 Dose: 9 mg Documented by: Multivitamins/Vitamin C (Multivitamin Tablet) 1 tab PO DAILY [facility] Last Admin: 06/12/21 08:42 Dose: 1 tab Documented by: Nicotine Polacrilex (Nicotine Polacrilex 2 Mg Gum) 4 mg BUCCAL Q2H PRN PRN Reason: Nicotine Cravings Last Admin: 06/12/21 21:49 Dose: 4 mg Documented by: Olanzapine (Olanzapine 2.5 Mg Tablet) 3.75 mg PO BEDTIME [facility] Last Admin: 06/12/21 21:15 Dose: 3.75 mg Documented by: Sertraline HCl (Sertraline Hcl 50 Mg Tablet) 50 mg PO DAILY [facility] Last Admin: 06/12/21 08:42 Dose: 50 mg Documented by: Trazodone HCl (Trazodone Hcl 50 Mg Tablet) 50 mg PO BEDTIME PRN PRN Reason: Insomnia Last Admin: 06/11/21 20:10 Dose: 50 mg Documented by: Vitamin D (Cholecalciferol (Vitamin D3) 25 Mcg Tablet) 25 mcg PO DAILY [facility] Last Admin: 06/12/21 08:42 Dose: 25 mcg Documented by: Allergies Allergies Allergy/AdvReac Type Severity Reaction Status Date / Time risperidone [From Risperdal] Allergy Mild gain weight Verified 06/12/21 14:19 aripiprazole [Abilify] Allergy Unknown gain weight Verified 06/12/21 14:19 cariprazine [From Vraylar] AdvReac Verified 06/12/21 14:19 paliperidone AdvReac dystonia Verified 06/12/21 14:19 Assessment & Plan Assessment & Plan (1) Schizoaffective disorder, bipolar type: Status: Acute Code(s): F25.0 - Schizoaffective disorder, bipolar type Assessment and Plan: Liane is a 20 y.o. female who carries a dx of schizoaffective disorder, bipolar type, hx of cannabis use disorder (no recent use). Utox negative. Hx of multiple psych hospitalizations, CCS evals, childhood psych hx. Mom is current legal guardian. Presenting with paranoid ideations and command AH. Recent med change, haldol 5 mg discontinued and zyprexa 5 mg QHS started in Op setting. Liane does not want med changes at this time, however I encouraged her to consider re-increasing haldol due to previous stability. Consider re-starting vraylar, as she reportedly did well on this in OP setting, as well as increasing lamotrigine dose to target sx of depression, impulsivity. Plan: Continue per primary treatment team. Continue?Haldol to 2 mg BID, Lamictal to 50 mg daily, Benztropine to 1.5 mg bid, zyprexa 5 mg QHS Monitor response to medications. Monitor for safety in the milieu. Discharge on stabilization. Patient seen. Chart reviewed. Discussed with team. Obtain collateral contact info?as needed 05/31/21: Pt declines to discuss med changes. Will continue to attempt with pt. Labile presentation. Reports she needs a long-term. 06/01/21: More forthcoming today regarding what her perceptions are of how she is doing. She identifies not having a solid foundation of life skills for appropriate self care and as a result is returning to past behavioral patterns which have not been helpful for her. This, along with very low self-esteem, psychosis, misperceptions of past actions appear to have created current decompensation. Plan: Increase Lamictal to 75 mg daily Begin Sertraline 25 mg daily 06/02/21: Continue current regime. Pt per team exhibiting sx of eating disordered behaviors-increase in nicotine, food restriction, possibly due to recent return to Olanzapine (by hx a 13 lb weight gain in one week when last inpatient). Recent decrease of Haldol-pt willing to explore-will follow. 06/05/21: Presents with increased depressive symptoms. Increase Sertraline to 50 mg daily 06/06/21: Isolative, team reports issues with intake. Negative sx-agrees to the increase of Sertraline. Continue to discuss regime with alternatives. 06/07/21: Continue current plan. Consider Latuda trial to replace Olanzapine. Pt was encouraged to increase milieu/group participation and decrease isolation. 06/08/2021 continue current treatment plan encourage patient to engage more out of her room monitor for self-harming behavior thoughts no notice adverse effect from sertraline continue discharge planning 06/09/2021 Continue current treatment plan agree with change to Latuda encourage more socialization and behavioral activation monitor for psychotic symptoms monitor safety continue discharge planning 06/10/21 Appt with Susana Yoakum 06/12 2pm [facility] [place] Personal On Demand Testing-will discuss with guardian, pt's mom. Continue current regime Possible respite bed for 06/13. Continue to encourage pt to be involved in milieu. 06/11/21 Latuda 20 mg HS Decrease Olanzapine to 3.75 mg HS Discussed with mother and pt who are both in agreement. Monitor for SE 06/12/21 Continue current plan. Discharge 06/13 to respite. I spent ___20___ minutes with the patient and/or on the patient floor today, greater than?50% of which was spent counseling/coordinating care. Patient educated on: medication risk/benefits and therapeutic strategies Informed Consent: understands Reason for contiued inpatient stay Substantial Risk for: stable for discharge
[2021-06-13] MEDS: Sertraline HCL 50 MG TABLET PO (08:42)
[2021-06-13] MEDS: Multivitamin TABLET 1 TAB PO (08:42)
[2021-06-13] MEDS: Benztropine Mesylate 0.5 MG TABLET 1.5 MG PO (08:42)
[2021-06-13] MEDS: Cholecalciferol (Vitamin D3) 25 MCG TABLET PO (08:42)
[2021-06-13] MEDS: HaloperidoL 1 MG TABLET 2 MG PO (08:42)
[2021-06-13] MEDS: lamoTRIgine 25 MG TABLET 75 MG PO (08:42)
[2021-06-13] MEDS: Nicotine Polacrilex 2 MG GUM 4 MG BUCCAL (09:30)
--- NOTE | 2021-06-13 17:15 | P.DS_ITS ---
DS: Providers Provider Date of Service: 06/13/21 Date of admission: 05/30/21 20:07 Date of discharge: 06/13/21 Primary care physician: Brianna Dunn MD Admitting clinician: Delaney Taylor Attending physician on admission: Zeferino Gentile Consults: 05/29/21 21:40 BHN [Consult to Crisis] Stat Reason for consultation: si Attending physician on discharge: Zeferino Gentile Discharging clinician: Zee Washington DS: Diagnosis Discharge Diagnosis (1) Schizoaffective disorder, bipolar type: Status: Acute DS: Medications Discharge Medications Home Medications: Previous Rx's Medication Instructions Recorded acetaminophen 325 mg tablet 650 mg PO Q6H PRN #60 tab 06/12/21 albuterol sulfate 90 mcg/actuation 2 puff INHALATION RQ4H PRN #1 g 06/12/21 aerosol inhaler (Ventolin HFA) benztropine 0.5 mg tablet 1.5 mg PO BID #180 tab 06/12/21 cholecalciferol (vitamin D3) 25 25 mcg PO DAILY #30 tab 06/12/21 mcg (1,000 unit) tablet clotrimazole 1 % vaginal cream 1 appful VAGINAL BEDTIME #45 g 06/12/21 haloperidol 2 mg tablet 2 mg PO BID #60 tab 06/12/21 haloperidol 5 mg tablet 5 mg PO BID PRN #60 tab 06/12/21 hydrocortisone 1 % topical cream 1 appl TOPICAL BID PRN #28.35 g 06/12/21 hydroxyzine HCl 25 mg tablet 25 mg PO Q6H PRN #60 tab 06/12/21 lamotrigine 25 mg tablet 75 mg PO DAILY #90 tab 06/12/21 lurasidone 20 mg tablet (Latuda) 20 mg PO BEDTIME #30 tab 06/12/21 melatonin 5 mg tablet 10 mg PO BEDTIME #60 tab 06/12/21 multivitamin (Daily-Nevaeh) 1 tab PO DAILY #30 tab 06/12/21 nicotine (polacrilex) 2 mg gum 4 mg BUCCAL Q2H PRN #60 ea 06/12/21 olanzapine 2.5 mg tablet 3.75 mg PO BEDTIME #45 tab 06/12/21 sertraline 50 mg tablet 50 mg PO DAILY #30 tab 10/20/21 trazodone 150 mg tablet 150 mg PO BEDTIME #30 tab 06/12/21 Mental Status Exam Mental Status Exam Patient Appearance: Appropriate Patient Orientation: Person, Place, Time and Situation Level of Consciousness: Alert Patient Behavior: Appropriate, Talkative, Cooperative and Good Eye Contact Mood Description: Flat Affect Description: Flat Patient Cognition Impaired: No Ability to Follow Directions: Good Speech Pattern: Spontaneous Speech Memory Description: Episodic Impaired Hallucinations: None Delusions: Not Present Perceptual Disturbances: Depersonalization Thought Process: Intact and Goal Oriented Thought Content: positive for Intact, positive for Goal Oriented and positive for Suicidal Ideation (denies) Judgement: Fair Data Data Completed and Pending Completed studies during hospitalization [Text1]: 05/29/21 Unknown Urine clean catch - Clean Catch Midstream Urine Culture - Final Lactobacillus species DS: Summary Hospital Course Hospital Course: Admission to adult psychiatry to address symptoms of schizoaffective disorder, bipolar type and PTSD. Care plan, medication regime and out patient plan of care prior to admission were reviewed. Education was provided regarding management of symptoms, medication and side effects. Nursing and director of social media marketing worked extensively with patient on collateral contacts, plan of care, education regarding managment of symptoms, medications and discharge planning. Cross titration was initiated Latuda from Olanzapine, Lamictal was titrated, Sertraline, Benztropine, Haldol, Melatonin, Trazodone were continued and Klonopin was discontinued. Time spent discussing smoking cessation with patient: 3 to 10 minutes Status at Discharge Cognitive/behavioral status at discharge: non-suicidal, non-psychotic. States sh e feels excited and anxious to transition to respite. Functional status at discharge: independent ambulation Overall status at discharge: patient is progressing back to baseline Time Spent with Patient Time attestation: Total time spent providing and/or coordinating discharge se rvices: 35 Time spent: Greater than 30 minutes Discharge Plan Discharge Patient Disposition: Xfer to Respite Facility Discharge Diagnosis: Schizoaffective Disorder, Bipolar type PTSD Referrals: Therapist: Constance Elliott ([facility]) [Other] - 06/18/21 11:45 am (In office) Brianna Dunn MD [Primary Care Provider] - 1 Week (OFFICE WILL CALL PATIENT WITH FOLLOW-UP APPOINTMENT AFTER PATIENT'S DISCHARGED) Discharge Medications: New acetaminophen 325 mg Tablet 650 mg PO Q6H PRN (Reason: Headache/Pain Mild Scale (1-3)) Qty: 60 RF: 0 lamotrigine 25 mg Tablet 75 mg PO DAILY Qty: 90 RF: 0 hydroxyzine HCl 25 mg Tablet 25 mg PO Q6H PRN (Reason: Anxiety) Qty: 60 RF: 0 Latuda 20 mg Tablet 20 mg PO BEDTIME Qty: 30 RF: 0 sertraline 50 mg Tablet 50 mg PO DAILY Qty: 30 RF: 0 hydrocortisone 1 % Cream 1 appl topical BID PRN (Reason: eczema sx) Qty: 28.35 RF: 0 olanzapine 2.5 mg tablet 3.75 mg PO BEDTIME Qty: 45 RF: 0 Continued multivitamin [Daily-Nevaeh] Tablet 1 tab PO DAILY Qty: 30 RF: 0 benztropine 0.5 mg Tablet 1.5 mg PO BID Qty: 180 RF: 0 haloperidol 5 mg Tablet 5 mg PO BID PRN (Reason: psychosis) Qty: 60 RF: 0 nicotine (polacrilex) 2 mg Gum 4 mg buccal Q2H PRN (Reason: Nicotine Cravings) Qty: 60 RF: 0 trazodone 150 mg tablet 150 mg PO BEDTIME Qty: 30 RF: 0 albuterol sulfate [Ventolin HFA] 90 mcg/actuation Hfa Aerosol Inhaler 2 puff inhalation RQ4H PRN (Reason: Shortness Of Breath) Qty: 1 RF: 0 haloperidol 2 mg tablet 2 mg PO BID Qty: 60 RF: 0 cholecalciferol (vitamin D3) 25 mcg (1,000 unit) Tablet 25 mcg PO DAILY Qty: 30 RF: 0 melatonin 5 mg tablet 10 mg PO BEDTIME Qty: 60 RF: 0 Discontinued lamotrigine 25 mg Tablet 50 mg PO BEDTIME Qty: 60 RF: 0 clonazepam 0.5 mg Tablet 0.5 mg PO DAILY PRN (Reason: SEVERE anxiety/panic) Qty: 30 RF: 0 olanzapine 5 mg tablet 1 tab PO BEDTIME RF: 0 No Action metronidazole 500 mg tablet 500 mg PO BID 7 Days Qty: 14 RF: 0 clotrimazole 1 % cream 1 appful vaginal BEDTIME Qty: 45 RF: 0 Discharge Orders: Discharge Order (Routine); Ordered 06/13/21 Ordered By: Zee Washington Diet: advance to usual diet Activity on Discharge: As tolerated Stand Alone Forms: Patient Portal Discharge page, Community Support Care Plan Goals: Mood stabilization Health Concerns: Schizoaffective Disorder, bipolar type PTSD Plan of Treatment: Transfer to Respite Continue medications as ordered Continue to transition off Olanzapine to Latuda. Respite prescribing team can assist with this Attend appointments as scheduled. Assessment: non-psychotic, non-suicidal Discharge Date/Time: 06/13/21 09:50
== END 2021-06-13 09:50 | DRG 750 ==
LOC: HO.ED 21:35 → HO.PM5 05-30 20:11
PROVIDERS: Physician Assistant; Admitting Provider Psychiatry & Neurology Psychiatry; Emergency Provider Internal Medicine; PCP Internal Medicine; Visit Provider Clinical Nurse Specialist Psychiatric/Mental Health, Adult
DX: F25.0 Schizoaffective disorder, bipolar type (principal); R45.851 Suicidal ideations; F22 Delusional disorders; F31.4 Bipolar disorder, current episode depressed, severe, without psychotic features; R45.88 Nonsuicidal self-harm; R45.81 Low self-esteem; K59.00 Constipation, unspecified; F41.9 Anxiety disorder, unspecified; R12 Heartburn; R11.0 Nausea; G47.00 Insomnia, unspecified; J45.909 Unspecified asthma, uncomplicated; L30.9 Dermatitis, unspecified; F50.9 Eating disorder, unspecified; F17.210 Nicotine dependence, cigarettes, uncomplicated; F12.21 Cannabis dependence, in remission; S70.921A Unspecified superficial injury of right thigh, initial encounter; W26.0XXA Contact with knife, initial encounter; Z20.822 Contact with and (suspected) exposure to COVID-19; Y93.9 Activity, unspecified; Y92.9 Unspecified place or not applicable; Y99.9 Unspecified external cause status; Z79.899 Other long term (current) drug therapy; Z91.410 Personal history of adult physical and sexual abuse; Z68.26 Body mass index [BMI] 26.0-26.9, adult
CPT/HCPCS: 36415; 80053; 80307; 81001; 81025; 85025; 87086; 87635; 90686; 93005; 99285

== ENCOUNTER → 2021-06-12 14:00 | Outpatient (BNVA) | payer OTHER, SELFPAY | PROVIDERS: Visit Provider Advanced Practice Midwife | DX: N89.8 Other specified noninflammatory disorders of vagina (principal) | CPT/HCPCS: 81025 ==

== ENCOUNTER 2021-06-17 09:41 | Outpatient (REF) | payer OTHER, SELFPAY ==
[2021-06-17 13:37] LABS: Syphilis Screen Nonreactive (Nonreactive)
[2021-06-17 16:04] LABS: CT PCR NOT DETECTED (Not Detect.); NG PCR NOT DETECTED (Not Detect.)
[2021-06-18 08:50] LABS: HBsAGNum1 0.19 S/CO (0.00-0.99); Hepatitis B Surface Antigen Negative (Negative)
[2021-06-18 08:52] LABS: HIV AB/AG Nonreactive (Nonreactive); HIV Num 1 0.06 S/CO (0.00-0.99); ~HepC Num1 0.08 S/CO (0.00-0.79); ~Hepatitis C Antibody Nonreactive (Nonreactive)
[2021-06-18 09:23] LABS: BV Int Neg Control Negative (Negative); BV Int Pos Control Positive (Positive)
== END 2021-06-17 09:42 | disposition home or self-care (01) ==
LOC: HO.LAB 09:41
PROVIDERS: Visit Provider Advanced Practice Midwife
DX: N89.8 Other specified noninflammatory disorders of vagina (principal); N94.9 Unspecified condition associated with female genital organs and menstrual cycle; F17.210 Nicotine dependence, cigarettes, uncomplicated; Z20.2 Contact with and (suspected) exposure to infections with a predominantly sexual mode of transmission; Z79.899 Other long term (current) drug therapy; Z71.89 Other specified counseling; Z32.02 Encounter for pregnancy test, result negative
CPT/HCPCS: 36415; 81025; 86780; 86803; 87255; 87340; 87389; 87480; 87491; 87510; 87591; 87660

== ENCOUNTER 2021-09-19 19:31 | Inpatient (IN) | payer MEDICAID, OTHER, SELFPAY ==
[2021-09-19 19:42] VITALS: BP 117/79; PULSE 95; RESP 18; TEMP 36.8; O2SAT 97; BMI 26.5
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
[2021-09-19 20:15] LABS: Appearance Urine CLEAR; Color Urine YELLOW; Glucose Urine UA NEG (NEG); Leukocyte Esterase Urine 1+ (NEG); Nitrite Urine NEG (NEG); Urine Blood NEG (NEG); Urine Ketones NEG (NEG); Urine Protein NEG (NEG-TRACE)
[2021-09-19 20:18] LABS: UPreg QC Valid YES; Urine Pregnancy NEGATIVE (NEGATIVE)
[2021-09-19 20:24] LABS: COVID-19 Test Negative (Negative)
[2021-09-19 20:26] LABS: Bacteria Urine 1+ /LPF; RBC Urine 0 /HPF (0); Squamous Epithelial Cell Urine 1+ /LPF
[2021-09-19 20:35] LABS: Amphetamine Screen Urine Not Detected (Not Detect); Barbiturates, Urine Not Detected (Not Detect); Benzodiazepines Screen Urine Not Detected (Not Detect); Cannabinoid Screen Urine Not Detected (Not Detect); Cocaine Screen Urine Not Detected (Not Detect); Fentanyl, urine Not Detected (Not Detect); Opiate Screen Urine Not Detected (Not Detect); Phencyclidine Screen Urine Not Detected (Not Detect)
--- NOTE | 2021-09-19 20:39 | MHC.CARE ---
CARE Team spoke with pt's mom to obtain collateral information and was informed that pt was seen in the community by Vicente and is an inpt psych bedsearch at this time. CARE Team confirmed this with KAREN.
--- NOTE | 2021-09-19 21:10 | PHA.MEDREC ---
Pharmacy Consult ? Medication Reconciliation Pharmacy has completed the medication reconciliation. Done by Psych ED, verified by me. Patient IS taking sertraline still. Verified with mother who handles meds. Attending made aware, and telephone order received for missing med Thanks Toro Burroughs
[2021-09-19] MEDS: Benztropine Mesylate 0.5 MG TABLET 1.5 MG PO (21:33)
[2021-09-19] MEDS: HaloperidoL 5 MG TABLET PO (21:34)
[2021-09-19] MEDS: traZODone HCL 50 MG TABLET 150 MG PO (21:34)
--- NOTE | 2021-09-20 | ECG_ITS ---
Test Reason : Use to typical/atypical antipsychotic Blood Pressure : / mmHG Vent. Rate : 060 BPM Atrial Rate : 060 BPM P-R Int : 150 ms QRS Dur : 080 ms QT Int : 408 ms P-R-T Axes : 021 063 037 degrees QTc Int : 408 ms Normal sinus rhythm Normal ECG When compared to the previous EKG of No significant changes seen Referred By: Zee Washington Electronically Signed By:SWATI MURRAY MD
--- NOTE | 2021-09-20 05:35 | PC.NURSE ---
Patient slept through the night, no distress observed/reported, behavior quiet and non concerning at this time, affect flat, mood depressed, medication compliant, patient was assessed by [facility] in the community disposition is section 12 inpatient bed search, VSS, will continue to monitor.
[2021-09-20 06:50] VITALS: RESP 20
--- NOTE | 2021-09-20 07:21 | PC.NURSE ---
patient appears to remain asleep at present respirations are even and unlabored, patient appears in no distress
[2021-09-20] MEDS: Benztropine Mesylate 0.5 MG TABLET 1.5 MG PO ×2 (09:30→20:33)
[2021-09-20] MEDS: Multivitamin TABLET 1 TAB PO (09:30)
[2021-09-20] MEDS: Sertraline HCL 50 MG TABLET PO (09:30)
[2021-09-20] MEDS: lamoTRIgine 100 MG TABLET PO (09:30)
[2021-09-20] MEDS: HaloperidoL 5 MG TABLET PO ×2 (09:30→20:33)
[2021-09-20 10:00] LABS: COVID-19 Test Negative (Negative)
[2021-09-20] MEDS: Nicotine Polacrilex 2 MG GUM BUCCAL (11:11)
[2021-09-20] MEDS: Milk of Magnesia 30 ML ORAL.SUSP PO (11:58)
[2021-09-20 13:59] VITALS: BP 109/62; PULSE 80; TEMP 37.1; O2SAT 99
[2021-09-20 14:00] LABS: MANUAL DIFF FLAG NO
[2021-09-20 14:03] LABS: Basophils Percent Auto 0.4 % (0-2); Eosinophils Absolute Auto 0.1 X10*3/uL (0.0-0.4); Eosinophils Percent Auto 1.4 % (0-4); Hematocrit 36.6 % (37.0-47.0); Hemoglobin 12.5 g/dl (12.0-16.0); Imm Gran Abs Auto 0.01 X10*3/uL (0.00-0.03); Imm Gran Pct Auto 0.2 % (0.0-0.4); Lymphocytes Absolute Auto 1.5 X10*3/uL (1.2-4.9); Lymphocytes Percent Auto 28.4 % (20-40); Mean Corpuscular HGB Conc 34.2 g/dl (31.0-35.0); Mean Corpuscular Hemoglobin 31.3 pg (27.0-33.0); Mean Corpuscular Volume 91.5 fL (80.0-98.0); Mean Platelet Volume 10.1 fL (9.4-12.3); Monocytes Absolute Auto 0.3 X10*3/uL (0.1-1.2); Monocytes Percent Auto 5.4 % (2-11); Neutrophils Absolute Auto 3.3 x10*3/uL (2.0-8.3); Neutrophils Percent Auto 64.2 % (45-73); Platelet Count 210 X10*3/uL (160-400); Red Cell Distribution Width 11.7 % (11.0-16.0); White Blood Count 5.1 X10*3/uL (4.8-10.8)
[2021-09-20 14:16] LABS: Anion Gap 11 (12-20); Blood Urea Nitrogen 8 mg/dL (9-16); Calcium 9.8 mg/dL (8.4-10.2); Carbon Dioxide 29 mmol/L (22-29); Chloride 104 mmol/L (96-108); Creatinine Clr Calc Pharmacy 98.1; Estimated Glomerular Filt Rate > 60; Glucose Random 89 mg/dL (60-115); Potassium 4.3 mmol/L (3.3-5.1); Sodium 140 mmol/L (135-145)
[2021-09-20] MEDS: HaloperidoL 1 MG TABLET 2 MG PO (14:16)
--- NOTE | 2021-09-20 15:46 | PC.NURSE ---
Patient is alert and oriented x 4 aware of plan of care to be admitted to m5 room 511-1. Escorted to floor via wheelchair and belongings with staff.
[2021-09-20 18:00] VITALS: BP 98/55; PULSE 86; RESP 18; TEMP 36.3; O2SAT 97
--- NOTE | 2021-09-20 19:07 | PC.ADMIT ---
Addendum entered by Wendy Tello RN 09/20/21 20:51: Pt has no HI and now states (at 2052) she no longer has any suicidal thoughts and feels more relaxed being here. Original Note: pt is 21 year old female admitted from the ER. She was brought in due to a suicide attempt. Pt tried to hang herself twice at home in the same day. Pt has no ligature oneill around neck. Pt has made attempt to cut wrist short time ago. There is a very slight laceration martha on each wrist that is superficial well healed. Pt has many horizontal superficial cuts to upper thighs which are almost healed without scabbing. Both wrist and thighs show no signs of infection. Pt Kept stating that she has been here many times and doesn't want to answer questions. Pt answered a few but insisted on going to bed. Pt behavior was as if she is right at home, knows the unit, knows the rules and wants to be left alone. Pt did appear tired and said being here is better than school, it's boring Pt knew right where her room was and went directly there even though nurse asked to wait a minute. Pt had flat affect in answering questions and kept saying Im tired Pt did report that it is god, goddesses, an demons that tell her she ugly like an old lady due to bags under her eyes and old needs to because old is ugly. Pt stated that she wants better meds so the voices can stop. Pt stated that she can sometime see them laughing at her while they tell her to . Pt believes they are real and have majical santiago because the bags are there under her eyes. Pt has slight dark circles under eyes but there are no bags.
[2021-09-20] MEDS: Lurasidone HCl 20 MG TABLET 60 MG PO (20:32)
[2021-09-20] MEDS: traZODone HCL 50 MG TABLET 150 MG PO (20:33)
[2021-09-21 06:00] VITALS: BP 87/48; PULSE 55; RESP 16; TEMP 36.8; O2SAT 97
[2021-09-21 07:48] LABS: Estimated Average Glucose 91 mg/dL; Hemoglobin A1c % 4.8 %
[2021-09-21 08:09] LABS: Cholesterol 157 mg/dL; HDL Cholesterol 37 mg/dL; LDL Cholesterol Calculated 100 mg/dl; Magnesium 2.2 mg/dL (1.6-2.6); Triglycerides 100 mg/dL
[2021-09-21 08:30] LABS: Free T4 (Free Thyroxine) 0.82 ng/dL (0.71-1.85); Thyroid Stimulating Hormone 0.76 uIU/mL (0.32-4.0)
[2021-09-21] MEDS: Sertraline HCL 50 MG TABLET PO (08:58)
[2021-09-21] MEDS: Benztropine Mesylate 0.5 MG TABLET 1.5 MG PO (08:58)
[2021-09-21] MEDS: HaloperidoL 5 MG TABLET PO ×2 (08:58→21:24)
[2021-09-21] MEDS: lamoTRIgine 100 MG TABLET PO (08:59)
[2021-09-21] MEDS: Cholecalciferol (Vitamin D3) 25 MCG TABLET PO (08:59)
[2021-09-21] MEDS: Multivitamin TABLET 1 TAB PO (08:59)
[2021-09-21] MEDS: Nicotine Polacrilex 2 MG GUM BUCCAL ×2 (09:35→15:58)
[2021-09-21] MEDS: Milk of Magnesia 30 ML ORAL.SUSP PO (09:54)
[2021-09-21] MEDS: HaloperidoL 1 MG TABLET 2 MG PO (09:55)
[2021-09-21 11:30] VITALS: BP 87/53; PULSE 98
[2021-09-21] MEDS: Magnesium Citrate 300 ML SOLUTION PO (11:48)
--- NOTE | 2021-09-21 11:59 | PC.NURSE ---
Pt signed a 3-day notice on 09/21/21 at 11:55am
[2021-09-21 14:17] VITALS: BP 92/58; PULSE 65; TEMP 36.2; O2SAT 96
--- NOTE | 2021-09-21 14:40 | PC.NURSE ---
At 14:10, patient walked to the nurse's station and stated I passed out while I was in my bathroom and hit my head on the sink. Pt's vitals were assessed at 14:12, BP: 92/58, T: 97.1 HR: 65 RR: 16 O2: 96% This RN was on checks from 13:00-14:05 and pt was on 5 minute checks. At 13:55, this RN went in the patient's room to check in on her and she was in the bathroom. This RN said just checking in, are you doing okay? Pt replied yeah I'm okay. Due to the patient's consistent low blood pressure today, this RN checked on her more frequently than every 5 minutes while she was in the bathroom. This RN checked in again at 14:00 and two more times between 14:00-14:05 and each time the patient said I'm okay. This RN notified Dr. Pope who is aware. This RN also emphasized the importance of drinking fluids to help increase her blood pressure and pt verbalized understanding.
[2021-09-21] MEDS: bisacodyL 10 MG SUPP.RECT PR (16:17)
[2021-09-21 18:00] VITALS: BP 99/59; PULSE 77; RESP 18; TEMP 36.8
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
[2021-09-21] MEDS: Benztropine Mesylate 1 MG TABLET PO (21:24)
[2021-09-21] MEDS: traZODone HCL 50 MG TABLET 150 MG PO (21:24)
[2021-09-21] MEDS: Lurasidone HCl 20 MG TABLET 60 MG PO (21:24)
[2021-09-22] MEDS: lamoTRIgine 100 MG TABLET PO (08:57)
[2021-09-22] MEDS: Sertraline HCL 50 MG TABLET PO (08:57)
[2021-09-22] MEDS: Benztropine Mesylate 1 MG TABLET PO ×2 (08:57→20:31)
[2021-09-22] MEDS: HaloperidoL 5 MG TABLET PO ×2 (08:57→20:31)
[2021-09-22] MEDS: Multivitamin TABLET 1 TAB PO (08:57)
[2021-09-22] MEDS: Cholecalciferol (Vitamin D3) 25 MCG TABLET PO (08:57)
[2021-09-22 09:02] VITALS: BP 99/64; PULSE 101; TEMP 37.2
[2021-09-22] MEDS: Nicotine Polacrilex 2 MG GUM BUCCAL ×3 (09:25→16:04)
--- NOTE | 2021-09-22 16:57 | P.PNPSI_ITS ---
Subjective Subjective Date of Service: 09/22/21 Reason For Visit: Schizoeffective disorder bipolar type s/p, SI Interim History: Patient reports the suppository helped her pass a bowel movement. She admits she used her fingers to help move her bowels. She feels relieved. She says her voic es have subsided and she is less anxious. She denies SI. She is willing to start eating some more now. No side effects with her medications. Review of Systems Acute medical concerns: No Review of Systems Review of Systems Yes all other systems are reviewed and are negative Gastrointestinal: Reports as per [facility] Mental Status Exam Mental Status Exam Patient Appearance: Appropriate Patient Orientation: Person, Place, Time and Situation Level of Consciousness: Awake and Alert Patient Behavior: Appropriate, Cooperative, Anxious, Fatigued and Good Eye Contact Mood Description: Calm, Withdrawn, Constricted, Depressed, Blunted and Sad Affect Description: Depressed and Blunted Patient Cognition Impaired: No Ability to Follow Directions: Excellent Speech Pattern: Clear Memory Description: Intact Hallucinations: Auditory and Tactile Delusions: Bizarre Thought Process: Intact Thought Content: positive for Preoccupation and positive for Hypochondriasis Depressive Symptoms: Increased Anxiety, Changes in Appetite, Loss of Int. in Activity, Feelings of Worthlessness, Unhappiness and Low Self Esteem Diagnostics Vital Signs (24Hr): Vital Signs - 24 hr 09/22/21 09:02 09/22/21 18:00 Temperature 99 F Pulse Rate 101 H 111 H Blood Pressure 99/64 107/59 L BMI result Verdana 4 Body Mass Index Verdana 4 26.5 Verdana 4 Verdana 4 Labs Results: 09/20/21 13:55 09/20/21 13:55 Labs: Laboratory Results - last 48 hr 09/21/21 09/21/21 07:26 07:26 Estimat Average Glucose 91 Hemoglobin A1c % 4.8 Magnesium 2.2 Triglycerides 100 Cholesterol 157 LDL Cholesterol, Calc 100 HDL Cholesterol 37 D TSH 0.76 Free T4 0.82 Medications Medications Current Medications Acetaminophen (Acetaminophen 325 Mg Tablet) 650 mg PO Q6H PRN PRN Reason: Headache/Pain Mild Scale (1-3) Al Hydroxide/Mg Hydroxide (Magnesium Hydrox/Alum Hydrox 30 Ml Oral.Susp) 30 ml PO Q6H PRN PRN Reason: Heartburn/Nausea Benztropine Mesylate (Benztropine Mesylate 1 Mg Tablet) 1 mg PO BID [facility] Last Admin: 09/22/21 20:31 Dose: 1 mg Documented by: Haloperidol (Haloperidol 1 Mg Tablet) 2 mg PO DAILY PRN PRN Reason: Agitation Last Admin: 09/21/21 09:55 Dose: 2 mg Documented by: Haloperidol (Haloperidol 5 Mg Tablet) 5 mg PO BID [facility] Last Admin: 09/22/21 20:31 Dose: 5 mg Documented by: Hydroxyzine HCl (Hydroxyzine Hcl 25 Mg Tablet) 25 mg PO TID PRN PRN Reason: Anxiety Lamotrigine (Lamotrigine 100 Mg Tablet) 100 mg PO DAILY [facility] Last Admin: 09/22/21 08:57 Dose: 100 mg Documented by: Lurasidone HCl (Lurasidone Hcl 20 Mg Tablet) 60 mg PO BEDTIME [facility] Last Admin: 09/22/21 20:30 Dose: 60 mg Documented by: Magnesium Hydroxide (Milk Of Magnesia 30 Ml Oral.Susp) 30 ml PO DAILY PRN PRN Reason: Constipation Last Admin: 09/21/21 09:54 Dose: 30 ml Documented by: Multivitamins/Vitamin C (Multivitamin Tablet) 1 tab PO DAILY [facility] Last Admin: 09/22/21 08:57 Dose: 1 tab Documented by: Nicotine Polacrilex (Nicotine Polacrilex 2 Mg Gum) 2 mg BUCCAL QID PRN PRN Reason: Nicotine Cravings Last Admin: 09/22/21 16:04 Dose: 2 mg Documented by: Psyllium Hydrophilic Mucilloid (Psyllium Seed 3.4 Gm Powd.Pack) 3.4 gm PO DAILY [facility] Last Admin: 09/22/21 09:00 Dose: Not Given Documented by: Sertraline HCl (Sertraline Hcl 50 Mg Tablet) 50 mg PO DAILY [facility] Last Admin: 09/22/21 08:57 Dose: 50 mg Documented by: Trazodone HCl (Trazodone Hcl 50 Mg Tablet) 150 mg PO BEDTIME [facility] Last Admin: 09/22/21 20:30 Dose: 150 mg Documented by: Vitamin D (Cholecalciferol (Vitamin D3) 25 Mcg Tablet) 25 mcg PO DAILY [facility] Last Admin: 09/22/21 08:57 Dose: 25 mcg Documented by: Allergies Allergies Allergy/AdvReac Type Severity Reaction Status Date / Time risperidone [From Allergy Mild gain weight Verified 06/20/21 13:00 Risperdal] aripiprazole [Abilify] Allergy Unknown gain weight Verified 06/20/21 13:00 cariprazine [From AdvReac Verified 06/20/21 13:00 Vraylar] paliperidone AdvReac dystonia Verified 06/20/21 13:00 Assessment & Plan Assessment & Plan (1) Schizoaffective disorder, depressive type: Status: Acute Code(s): F25.1 - Schizoaffective disorder, depressive type Plan Patient with reported schizoaffective depressive ilness admitted with suicide attempt, depression and worsening somatic delusions and hallucinations. She has failed multiple medication trials. - Admit for safety - Milieu therapy - Restart medications. - Management of constipation with metamucil, laxative and dulcolax suppository - Consider ECT - DC planning. I spent minutes with the patient and/or on the patient floor today, greater than?50% of which was spent counseling/coordinating care. Reason for contiued inpatient stay Substantial Risk for: harm to self and inability to function
[2021-09-22 18:00] VITALS: BP 107/59; PULSE 111
[2021-09-22] MEDS: Lurasidone HCl 20 MG TABLET 60 MG PO (20:30)
[2021-09-22] MEDS: traZODone HCL 50 MG TABLET 150 MG PO (20:30)
[2021-09-23 04:14] LABS: Folate 15.5 ng/mL (> or = 4.0); Vitamin B12 634 pg/mL (200-900)
[2021-09-23 08:30] VITALS: BP 92/54; PULSE 71; TEMP 36.9
[2021-09-23] MEDS: Benztropine Mesylate 1 MG TABLET PO ×2 (08:55→21:14)
[2021-09-23] MEDS: Cholecalciferol (Vitamin D3) 25 MCG TABLET PO (08:55)
[2021-09-23] MEDS: HaloperidoL 5 MG TABLET PO ×2 (08:55→21:14)
[2021-09-23] MEDS: lamoTRIgine 100 MG TABLET PO (08:55)
[2021-09-23] MEDS: Sertraline HCL 50 MG TABLET PO (08:55)
[2021-09-23] MEDS: Multivitamin TABLET 1 TAB PO (08:55)
[2021-09-23] MEDS: Nicotine Polacrilex 2 MG GUM BUCCAL ×3 (10:05→16:57)
--- NOTE | 2021-09-23 17:12 | P.PNPSI_ITS ---
Subjective Subjective Date of Service: 09/23/21 Reason For Visit: Schizoeffective disorder bipolar type s/p, SI Subjective Notes: Conditional Voluntary and 3 Day (09/25/21) Interim History: Met with pt and Isabella OSPINA. Reports since discharge she attended respite for 2 weeks post [facility] discharge and then returned home. Reports things have gone well. She has just started two college courses, algebra on Tuesdays and Polish on Wednesdays. She has signed a three day notice so she may return to school on 09/25/21. Pt discussed precipitants to her admission. She identifies PMS as an issue as menses initiated 09/22. Voices started on 09/16 she reports, along with constipation however, reports an episode of SIBS (cutting) 2 weeks prior commanded by voices. Reports sleep to be adequate with being up for 2 nights approximately 2 weeks ago. Pt reports she is eating and reviewed 09/22 intake. Denies current SI. Pt was asked about reports of a hanging attempt-she was able to discuss this, acknowledge that she did hang briefly-again voices commanding-states at times it can feel like the whole world is against me, describes it as dark magic and everyone appears mad at her. Pt denies substance use-reports 3 months of sobriety except for nicotine (later on, pt's mother reported they have found cocaine in her possession). Medication Compliance: Yes Side effects from medications: No Attending Groups: Yes Review of Systems Acute medical concerns: No Medical Review of Systems: unchanged Review of Systems Gastrointestinal: Reports constipation Genitourinary: Reports other (PMS) Reports behavioral changes Psychiatric: Reports anxiety, Reports behavioral changes, Reports depression, Reports difficulty concentrating, Reports auditory hallucinations, Reports hopelessness, Reports irritability, Reports anhedonia, Reports mood swings, Reports panic attacks, Reports paranoia and Reports hallucinations Mental Status Exam Mental Status Exam Patient Appearance: Appropriate Patient Orientation: Person, Place, Time and Situation Level of Consciousness: Alert Patient Behavior: Talkative and Good Eye Contact Mood Description: Anxious and Apprehensive Affect Description: Constricted Patient Cognition Impaired: Yes Ability to Follow Directions: Good Speech Pattern: Spontaneous Speech and Soft-Spoken Memory Description: Episodic Impaired Hallucinations: Auditory Delusions: Paranoid Ideation Perceptual Disturbances: Depersonalization and Derealization Thought Process: Distracted, Rumination and Goal Oriented Thought Content: positive for [place], positive for Circumstantial, positive for Goal Oriented, positive for Perseveration and positive for Suicidal Ideation (denies) Depressive Symptoms: Increased Anxiety, Diff. Making Decisions and Low Self Esteem Abnormal Motor Activity Signs and Symptoms: Restlessness Judgement: Poor Diagnostics Vital Signs (24Hr): Vital Signs - 24 hr 09/22/21 18:00 09/23/21 08:30 Temperature 98.4 F Pulse Rate 111 H 71 Blood Pressure 107/59 L 92/54 L BMI result Verdana 4 Body Mass Index Verdana 4 26.5 Verdana 4 Verdana 4 Labs Results: 09/20/21 13:55 09/20/21 13:55 Labs: Laboratory Results - last 48 hr 09/21/21 07:26 Vitamin B12 634 Folate 15.5 Medications Medications Current Medications Acetaminophen (Acetaminophen 325 Mg Tablet) 650 mg PO Q6H PRN PRN Reason: Headache/Pain Mild Scale (1-3) Al Hydroxide/Mg Hydroxide (Magnesium Hydrox/Alum Hydrox 30 Ml Oral.Susp) 30 ml PO Q6H PRN PRN Reason: Heartburn/Nausea Benztropine Mesylate (Benztropine Mesylate 1 Mg Tablet) 1 mg PO BID [facility] Last Admin: 09/23/21 08:55 Dose: 1 mg Documented by: Haloperidol (Haloperidol 1 Mg Tablet) 2 mg PO DAILY PRN PRN Reason: Agitation Last Admin: 09/21/21 09:55 Dose: 2 mg Documented by: Haloperidol (Haloperidol 5 Mg Tablet) 5 mg PO BID [facility] Last Admin: 09/23/21 08:55 Dose: 5 mg Documented by: Hydroxyzine HCl (Hydroxyzine Hcl 25 Mg Tablet) 25 mg PO TID PRN PRN Reason: Anxiety Lamotrigine (Lamotrigine 100 Mg Tablet) 100 mg PO DAILY [facility] Last Admin: 09/23/21 08:55 Dose: 100 mg Documented by: Lurasidone HCl (Lurasidone Hcl 20 Mg Tablet) 60 mg PO BEDTIME [facility] Last Admin: 09/22/21 20:30 Dose: 60 mg Documented by: Magnesium Hydroxide (Milk Of Magnesia 30 Ml Oral.Susp) 30 ml PO DAILY PRN PRN Reason: Constipation Last Admin: 09/21/21 09:54 Dose: 30 ml Documented by: Multivitamins/Vitamin C (Multivitamin Tablet) 1 tab PO DAILY [facility] Last Admin: 09/23/21 08:55 Dose: 1 tab Documented by: Nicotine Polacrilex (Nicotine Polacrilex 2 Mg Gum) 2 mg BUCCAL QID PRN PRN Reason: Nicotine Cravings Last Admin: 09/23/21 16:57 Dose: 2 mg Documented by: Psyllium Hydrophilic Mucilloid (Psyllium Seed 3.4 Gm Powd.Pack) 3.4 gm PO DAILY [facility] Last Admin: 09/23/21 08:55 Dose: 3.4 gm Documented by: Sertraline HCl (Sertraline Hcl 50 Mg Tablet) 50 mg PO DAILY [facility] Last Admin: 09/23/21 08:55 Dose: 50 mg Documented by: Trazodone HCl (Trazodone Hcl 50 Mg Tablet) 150 mg PO BEDTIME [facility] Last Admin: 09/22/21 20:30 Dose: 150 mg Documented by: Vitamin D (Cholecalciferol (Vitamin D3) 25 Mcg Tablet) 25 mcg PO DAILY [facility] Last Admin: 09/23/21 08:55 Dose: 25 mcg Documented by: Allergies Allergies Allergy/AdvReac Type Severity Reaction Status Date / Time risperidone [From Allergy Mild gain weight Verified 06/20/21 13:00 Risperdal] aripiprazole [Abilify] Allergy Unknown gain weight Verified 06/20/21 13:00 cariprazine [From AdvReac Verified 06/20/21 13:00 Vraylar] paliperidone AdvReac dystonia Verified 06/20/21 13:00 Assessment & Plan Assessment & Plan (1) Schizoaffective disorder, depressive type: Status: Acute Code(s): F25.1 - Schizoaffective disorder, depressive type Plan Patient with reported schizoaffective depressive ilness admitted with suicide attempt, depression and worsening somatic delusions and hallucinations. She has failed multiple medication trials. - Admit for safety - Milieu therapy - Restart medications. - Management of constipation with metamucil, laxative and dulcolax suppository - Consider ECT - DC planning. 09/23/21 Pt describes PMS, constipation, voices as precipitants to suicide attempt. Mother reports she has found cocaine in pt's possessions-pt denies substance use. Plan: Bowel regime, PMS plan ? SCOTT-Haldol Dec trial No medication changes today. Ongoing exploration of cocaine use and contribution if any to current sx presentation. I spent 40 minutes with the patient and/or on the patient floor today, greater than?50% of which was spent counseling/coordinating care. Patient educated on: therapeutic strategies Informed Consent: further education needed Reason for contiued inpatient stay Substantial Risk for: harm to self, inability to function and rapid dec ompensation
[2021-09-23 18:00] VITALS: BP 102/56; PULSE 69; RESP 18; TEMP 36.9
[2021-09-23] MEDS: traZODone HCL 50 MG TABLET 150 MG PO (21:13)
[2021-09-23] MEDS: Lurasidone HCl 20 MG TABLET 60 MG PO (21:14)
[2021-09-24 08:00] VITALS: BP 96/51; PULSE 78; TEMP 37.5; O2SAT 98
[2021-09-24] MEDS: Sertraline HCL 50 MG TABLET PO (08:45)
[2021-09-24] MEDS: Cholecalciferol (Vitamin D3) 25 MCG TABLET PO (08:45)
[2021-09-24] MEDS: lamoTRIgine 100 MG TABLET PO (08:45)
[2021-09-24] MEDS: HaloperidoL 5 MG TABLET PO ×2 (08:45→19:37)
[2021-09-24] MEDS: Benztropine Mesylate 1 MG TABLET PO ×2 (08:45→19:37)
[2021-09-24] MEDS: Multivitamin TABLET 1 TAB PO (08:45)
[2021-09-24] MEDS: Nicotine Polacrilex 2 MG GUM BUCCAL ×2 (09:02→16:11)
--- NOTE | 2021-09-24 16:01 | HO.PSYCHPN ---
Subjective Subjective Date of Service: 09/24/21 Reason For Visit: Schizoeffective disorder bipolar type s/p, SI Interim History: Patient seen and discussed with team. Patient evaluated this morning and upon interview she says Im okay. Says her medications are fine and that haldol really helps when im having a really bad episode of psychosis. Pt says she is worried about being really constipated. Last BM was 2 days ago. Denies GI distress. Reports past benefit on colace. Says her recent relapse really bothers me, I shouldnt have lied to my parents like that. Says when she uses cocaine all my voices stop. Endorses AH and says they come and go and are derogatory, tell her they hate me cause i wasnt a good girl growing up and i wasnt smart enough. Sleep is good. Appetite is good. In the milieu, patient is safe but isolative in behavior. Denies SI/SIB/HI upon inquiry. Denies irritability or assaultive ideation. Says she feels safe. Medication Compliance: Yes Side effects from medications: No Attending Groups: Yes Review of Systems Acute medical concerns: No Medical Review of Systems: unchanged Mental Status Exam Mental Status Exam Narrative: Patient Appearance:?Well Grooomed and Appropriate Patient Orientation:?Person, Place, Time and Situation Level of Consciousness:?Awake, Appropriate and Alert Patient Behavior:?Appropriate, Talkative, Cooperative, Anxious, Distractible and Good Eye Contact Mood Description:?Calm, Happy, Withdrawn, Cheerful, Anxious and Apprehensive Affect Description:?Apprehensive Patient Cognition Impaired:?No Ability to Follow Directions:?Good Speech Pattern:?Clear, Appropriate, Spontaneous Speech, Coherent, Soft-Spoken and Animated (at times) Memory Description:?Intact Hallucinations:?None (denies at this time) Delusions:?Not Present Perceptual Disturbances:?Depersonalization Thought Process:?Goal Oriented Thought Content:?positive for [place], positive for Circumstantial, positive for Goal Oriented, positive for Logical and positive for Suicidal Ideation (denies) Depressive Symptoms:?Increased Anxiety and Low Self Esteem Judgement:?Fair Diagnostics Vital Signs (24Hr): Vital Signs - 24 hr 09/23/21 18:00 09/24/21 08:00 Temperature 98.5 F 99.5 F Pulse Rate 69 78 Respiratory Rate 18 Blood Pressure 102/56 L 96/51 L Pulse Oximetry 98 BMI result Body Mass Index 26.5 Labs Results: 09/20/21 13:55 09/20/21 13:55 Labs: Laboratory Results - last 48 hr 09/21/21 07:26 Vitamin B12 634 Folate 15.5 Medications Medications Current Medications Acetaminophen (Acetaminophen 325 Mg Tablet) 650 mg PO Q6H PRN PRN Reason: Headache/Pain Mild Scale (1-3) Al Hydroxide/Mg Hydroxide (Magnesium Hydrox/Alum Hydrox 30 Ml Oral.Susp) 30 ml PO Q6H PRN PRN Reason: Heartburn/Nausea Benztropine Mesylate (Benztropine Mesylate 1 Mg Tablet) 1 mg PO BID [facility] Last Admin: 09/24/21 08:45 Dose: 1 mg Documented by: Haloperidol (Haloperidol 1 Mg Tablet) 2 mg PO DAILY PRN PRN Reason: Agitation Last Admin: 09/21/21 09:55 Dose: 2 mg Documented by: Haloperidol (Haloperidol 5 Mg Tablet) 5 mg PO BID [facility] Last Admin: 09/24/21 08:45 Dose: 5 mg Documented by: Hydroxyzine HCl (Hydroxyzine Hcl 25 Mg Tablet) 25 mg PO TID PRN PRN Reason: Anxiety Lamotrigine (Lamotrigine 100 Mg Tablet) 100 mg PO DAILY [facility] Last Admin: 09/24/21 08:45 Dose: 100 mg Documented by: Lurasidone HCl (Lurasidone Hcl 20 Mg Tablet) 60 mg PO BEDTIME [facility] Last Admin: 09/23/21 21:14 Dose: 60 mg Documented by: Magnesium Hydroxide (Milk Of Magnesia 30 Ml Oral.Susp) 30 ml PO DAILY PRN PRN Reason: Constipation Last Admin: 09/21/21 09:54 Dose: 30 ml Documented by: Multivitamins/Vitamin C (Multivitamin Tablet) 1 tab PO DAILY [facility] Last Admin: 09/24/21 08:45 Dose: 1 tab Documented by: Nicotine Polacrilex (Nicotine Polacrilex 2 Mg Gum) 2 mg BUCCAL QID PRN PRN Reason: Nicotine Cravings Last Admin: 09/24/21 09:02 Dose: 2 mg Documented by: Psyllium Hydrophilic Mucilloid (Psyllium Seed 3.4 Gm Powd.Pack) 3.4 gm PO DAILY [facility] Last Admin: 09/24/21 08:45 Dose: 3.4 gm Documented by: Sertraline HCl (Sertraline Hcl 50 Mg Tablet) 50 mg PO DAILY [facility] Last Admin: 09/24/21 08:45 Dose: 50 mg Documented by: Trazodone HCl (Trazodone Hcl 50 Mg Tablet) 150 mg PO BEDTIME [facility] Last Admin: 09/23/21 21:13 Dose: 150 mg Documented by: Vitamin D (Cholecalciferol (Vitamin D3) 25 Mcg Tablet) 25 mcg PO DAILY [facility] Last Admin: 09/24/21 08:45 Dose: 25 mcg Documented by: Allergies Allergies Allergy/AdvReac Type Severity Reaction Status Date / Time risperidone [From Risperdal] Allergy Mild gain weight Verified 06/20/21 13:00 aripiprazole [Abilify] Allergy Unknown gain weight Verified 06/20/21 13:00 cariprazine [From Vraylar] AdvReac Verified 06/20/21 13:00 paliperidone AdvReac dystonia Verified 06/20/21 13:00 Assessment & Plan Assessment & Plan (1) Schizoaffective disorder, depressive type: Status: Acute Code(s): F25.1 - Schizoaffective disorder, depressive type Plan Patient with reported schizoaffective depressive ilness admitted with suicide attempt, depression and worsening somatic delusions and hallucinations. She has failed multiple medication trials. - Admit for safety - Milieu therapy - Restart medications. - Management of constipation with metamucil, laxative and dulcolax suppository - Consider ECT - DC planning. 09/23/21 Pt describes PMS, constipation, voices as precipitants to suicide attempt. Mother reports she has found cocaine in pt's possessions-pt denies substance use. Plan: Bowel regime, PMS plan ? SCOTT-Haldol Dec trial No medication changes today. Ongoing exploration of cocaine use and contribution if any to current sx presentation. 09/24/21: start colace 100 mg QHS PRN for constipation, continue haldol due to positive benefit, no med changes. Pt says she feels safe. I spent minutes with the patient and/or on the patient floor today, greater than?50% of which was spent counseling/coordinating care. Reason for contiued inpatient stay Substantial Risk for: inability to function, rapid decompensation and med/psych decompensation
[2021-09-24 18:00] VITALS: BP 96/51; PULSE 67; TEMP 37.2
[2021-09-24] MEDS: Lurasidone HCl 20 MG TABLET 60 MG PO (19:37)
[2021-09-24] MEDS: traZODone HCL 50 MG TABLET 150 MG PO (19:37)
[2021-09-25] MEDS: Nicotine Polacrilex 2 MG GUM BUCCAL ×4 (08:38→17:53)
[2021-09-25] MEDS: Multivitamin TABLET 1 TAB PO (08:38)
[2021-09-25] MEDS: Benztropine Mesylate 1 MG TABLET PO ×2 (08:38→19:31)
[2021-09-25] MEDS: Sertraline HCL 50 MG TABLET PO (08:38)
[2021-09-25] MEDS: lamoTRIgine 100 MG TABLET PO (08:38)
[2021-09-25] MEDS: HaloperidoL 5 MG TABLET PO ×2 (08:38→19:32)
[2021-09-25] MEDS: Cholecalciferol (Vitamin D3) 25 MCG TABLET PO (08:38)
--- NOTE | 2021-09-25 14:34 | P.PNPSI_ITS ---
Subjective Subjective Date of Service: 09/25/21 Reason For Visit: Schizoeffective disorder bipolar type s/p, SI Subjective Notes: Conditional Voluntary Healthcare Proxy: No Guardianship: Yes Medical Problems Affecting Mental Status: No Interim History: I am sorry. I should have told you of the cocaine. Brief consultation with pt's out pt team/prescriber today, (KAREN). They have consulted as a team and request no medication changes at this time as pt has done well with current regime. Rationale for request is introduction of cocaine into the symptom presentation is a new factor. Discussed PMS mgt- B6, Calcium, possible drospirenone (Nextstellis, Slynd, Ophelia) trial as has more efficacy of PMS sx mgt. Discussed constipation mgt-colace, metamucil, miralax (no longer works per pt), Lactulose prn, Magnesium Citrate prn. Met with pt who reports she is ready to discharge. Denies SI, HI, current voices. Discussion of cocaine use-states she used her [employer] gift money to purchase- used @ $70 worth. States it helped her to feel happy and to manage voices. Overall not helpful with sadness. She regrets not sharing with family, team that she was using, however she states voices were present. States she is wanting to discharge to focus on her school courses and to get back to my life and living my life . Medication Compliance: Yes Side effects from medications: No Attending Groups: No Review of Systems Acute medical concerns: No Medical Review of Systems: unchanged Review of Systems Review of Systems Yes all other systems are reviewed and are negative Reports behavioral changes Psychiatric: Reports anxiety, Reports behavioral changes, Reports change in appetite and Reports suicidal ideation (denies) Mental Status Exam Mental Status Exam Patient Appearance: Well Grooomed and Appropriate Patient Orientation: Person, Place, Time and Situation Level of Consciousness: Awake, Appropriate and Alert Patient Behavior: Appropriate, Talkative, Cooperative, Anxious, Distractible and Good Eye Contact Mood Description: Calm, Happy, Withdrawn, Cheerful, Anxious and Apprehensive Affect Description: Apprehensive Patient Cognition Impaired: No Ability to Follow Directions: Good Speech Pattern: Clear, Appropriate, Spontaneous Speech, Coherent, Soft-Spoken and Animated (at times) Memory Description: Intact Hallucinations: None (denies at this time) Delusions: Not Present Perceptual Disturbances: Depersonalization Thought Process: Goal Oriented Thought Content: positive for [place], positive for Circumstantial, positive for Goal Oriented, positive for Logical and positive for Suicidal Ideation (denies) Depressive Symptoms: Increased Anxiety and Low Self Esteem Judgement: Fair Diagnostics Vital Signs (24Hr): Vital Signs - 24 hr 09/24/21 18:00 Temperature 98.9 F Pulse Rate 67 Blood Pressure 96/51 L BMI result [place] 4 Body Mass Index [place] 4 26.5 [place] 4 [place] 4 Labs Results: 09/20/21 13:55 09/20/21 13:55 Medications Medications Current Medications Acetaminophen (Acetaminophen 325 Mg Tablet) 650 mg PO Q6H PRN PRN Reason: Headache/Pain Mild Scale (1-3) Al Hydroxide/Mg Hydroxide (Magnesium Hydrox/Alum Hydrox 30 Ml Oral.Susp) 30 ml PO Q6H PRN PRN Reason: Heartburn/Nausea Benztropine Mesylate (Benztropine Mesylate 1 Mg Tablet) 1 mg PO BID [facility] Last Admin: 09/25/21 08:38 Dose: 1 mg Documented by: Calcium Carbonate/Cholecalciferol (Calcium + Vitamin D 250 Mg Tablet) 250 mg PO DAILY [facility] Docusate Sodium (Docusate Sodium 100 Mg Capsule) 100 mg PO BEDTIME PRN PRN Reason: constipation Haloperidol (Haloperidol 1 Mg Tablet) 2 mg PO DAILY PRN PRN Reason: Agitation Last Admin: 09/21/21 09:55 Dose: 2 mg Documented by: Haloperidol (Haloperidol 5 Mg Tablet) 5 mg PO BID [facility] Last Admin: 09/25/21 08:38 Dose: 5 mg Documented by: Hydroxyzine HCl (Hydroxyzine Hcl 25 Mg Tablet) 25 mg PO TID PRN PRN Reason: Anxiety Lamotrigine (Lamotrigine 100 Mg Tablet) 100 mg PO DAILY [facility] Last Admin: 09/25/21 08:38 Dose: 100 mg Documented by: Lurasidone HCl (Lurasidone Hcl 20 Mg Tablet) 60 mg PO BEDTIME [facility] Last Admin: 09/24/21 19:37 Dose: 60 mg Documented by: Magnesium Hydroxide (Milk Of Magnesia 30 Ml Oral.Susp) 30 ml PO DAILY PRN PRN Reason: Constipation Last Admin: 09/21/21 09:54 Dose: 30 ml Documented by: Multivitamins/Vitamin C (Multivitamin Tablet) 1 tab PO DAILY [facility] Last Admin: 09/25/21 08:38 Dose: 1 tab Documented by: Nicotine Polacrilex (Nicotine Polacrilex 2 Mg Gum) 2 mg BUCCAL QID PRN PRN Reason: Nicotine Cravings Last Admin: 09/25/21 11:40 Dose: 2 mg Documented by: Polyethylene Glycol (Polyethylene Glycol 3350 17 Gm Powd.Pack) 17 gm PO DAILY PRN PRN Reason: Constipation Psyllium Hydrophilic Mucilloid (Psyllium Seed 3.4 Gm Powd.Pack) 3.4 gm PO DAILY [facility] Last Admin: 09/25/21 08:38 Dose: 3.4 gm Documented by: Pyridoxine HCl (Pyridoxine Hcl (Vitamin B6) 50 Mg Tablet) 25 mg PO DAILY [facility] Sertraline HCl (Sertraline Hcl 50 Mg Tablet) 50 mg PO DAILY [facility] Last Admin: 09/25/21 08:38 Dose: 50 mg Documented by: Trazodone HCl (Trazodone Hcl 50 Mg Tablet) 150 mg PO BEDTIME [facility] Last Admin: 09/24/21 19:37 Dose: 150 mg Documented by: Vitamin D (Cholecalciferol (Vitamin D3) 25 Mcg Tablet) 25 mcg PO DAILY [facility] Last Admin: 09/25/21 08:38 Dose: 25 mcg Documented by: Allergies Allergies Allergy/AdvReac Type Severity Reaction Status Date / Time risperidone [From Allergy Mild gain weight Verified 06/20/21 13:00 Risperdal] aripiprazole [Abilify] Allergy Unknown gain weight Verified 06/20/21 13:00 cariprazine [From AdvReac Verified 06/20/21 13:00 Vraylar] paliperidone AdvReac dystonia Verified 06/20/21 13:00 Assessment & Plan Assessment & Plan (1) Schizoaffective disorder, depressive type: Status: Acute Code(s): F25.1 - Schizoaffective disorder, depressive type Plan Patient with reported schizoaffective depressive ilness admitted with suicide attempt, depression and worsening somatic delusions and hallucinations. She has failed multiple medication trials. - Admit for safety - Milieu therapy - Restart medications. - Management of constipation with metamucil, laxative and dulcolax suppository - Consider ECT - DC planning. 09/23/21 Pt describes PMS, constipation, voices as precipitants to suicide attempt. Mother reports she has found cocaine in pt's possessions-pt denies substance use. Plan: Bowel regime, PMS plan ? SCOTT-Haldol Dec trial No medication changes today. Ongoing exploration of cocaine use and contribution if any to current sx presentation. 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 Mgt of Constipation: Colace, Metamucil/Miralax, Lactulose prn, Magnesium Citrate prn-pt agrees. I spent 35 minutes with the patient and/or on the patient floor today, greater than?50% of which was spent counseling/coordinating care. Patient educated on: medication risk/benefits, substance abuse and therapeutic strategies Informed Consent: understands and further education needed Reason for contiued inpatient stay Substantial Risk for: harm to self, inability to function and rapid decompensation
[2021-09-25 18:00] VITALS: BP 104/58; PULSE 69; RESP 18; TEMP 36.2; O2SAT 99
[2021-09-25] MEDS: Lurasidone HCl 20 MG TABLET 60 MG PO (19:31)
[2021-09-25] MEDS: traZODone HCL 50 MG TABLET 150 MG PO (19:31)
[2021-09-26 08:30] VITALS: BP 95/52; PULSE 76; TEMP 37
[2021-09-26] MEDS: Sertraline HCL 50 MG TABLET PO (08:55)
[2021-09-26] MEDS: Pyridoxine HCl (Vitamin B6) 50 MG TABLET 25 MG PO (08:55)
[2021-09-26] MEDS: Calcium + Vitamin D 250 MG TABLET PO (08:56)
[2021-09-26] MEDS: Benztropine Mesylate 1 MG TABLET PO ×2 (08:56→20:11)
[2021-09-26] MEDS: Multivitamin TABLET 1 TAB PO (08:56)
[2021-09-26] MEDS: Cholecalciferol (Vitamin D3) 25 MCG TABLET PO (08:56)
[2021-09-26] MEDS: HaloperidoL 5 MG TABLET PO ×2 (08:56→20:11)
[2021-09-26] MEDS: lamoTRIgine 100 MG TABLET PO (08:56)
[2021-09-26] MEDS: Nicotine Polacrilex 2 MG GUM BUCCAL ×3 (09:28→19:10)
--- NOTE | 2021-09-26 11:03 | P.PNPSI_ITS ---
Subjective Subjective Reason For Visit: Schizoeffective disorder bipolar type s/p, SI Diagnostics Vital Signs (24Hr): Vital Signs - 24 hr 09/25/21 18:00 Temperature 97.1 F Pulse Rate 69 Respiratory Rate 18 Blood Pressure 104/58 L Pulse Oximetry 99 BMI result Body Mass Index 26.5 Labs Results: 09/20/21 13:55 09/20/21 13:55 Medications Medications Current Medications Acetaminophen (Acetaminophen 325 Mg Tablet) 650 mg PO Q6H PRN PRN Reason: Headache/Pain Mild Scale (1-3) Al Hydroxide/Mg Hydroxide (Magnesium Hydrox/Alum Hydrox 30 Ml Oral.Susp) 30 ml PO Q6H PRN PRN Reason: Heartburn/Nausea Benztropine Mesylate (Benztropine Mesylate 1 Mg Tablet) 1 mg PO BID [facility] Last Admin: 09/26/21 08:56 Dose: 1 mg Documented by: Calcium Carbonate/Cholecalciferol (Calcium + Vitamin D 250 Mg Tablet) 250 mg PO DAILY [facility] Last Admin: 09/26/21 08:56 Dose: 250 mg Documented by: Docusate Sodium (Docusate Sodium 100 Mg Capsule) 100 mg PO BEDTIME PRN PRN Reason: constipation Haloperidol (Haloperidol 1 Mg Tablet) 2 mg PO DAILY PRN PRN Reason: Agitation Last Admin: 09/21/21 09:55 Dose: 2 mg Documented by: Haloperidol (Haloperidol 5 Mg Tablet) 5 mg PO BID [facility] Last Admin: 09/26/21 08:56 Dose: 5 mg Documented by: Hydroxyzine HCl (Hydroxyzine Hcl 25 Mg Tablet) 25 mg PO TID PRN PRN Reason: Anxiety Lamotrigine (Lamotrigine 100 Mg Tablet) 100 mg PO DAILY [facility] Last Admin: 09/26/21 08:56 Dose: 100 mg Documented by: Lurasidone HCl (Lurasidone Hcl 20 Mg Tablet) 60 mg PO BEDTIME [facility] Last Admin: 09/25/21 19:31 Dose: 60 mg Documented by: Magnesium Hydroxide (Milk Of Magnesia 30 Ml Oral.Susp) 30 ml PO DAILY PRN PRN Reason: Constipation Last Admin: 09/21/21 09:54 Dose: 30 ml Documented by: Multivitamins/Vitamin C (Multivitamin Tablet) 1 tab PO DAILY [facility] Last Admin: 09/26/21 08:56 Dose: 1 tab Documented by: Nicotine Polacrilex (Nicotine Polacrilex 2 Mg Gum) 2 mg BUCCAL QID PRN PRN Reason: Nicotine Cravings Last Admin: 09/26/21 09:28 Dose: 2 mg Documented by: Polyethylene Glycol (Polyethylene Glycol 3350 17 Gm Powd.Pack) 17 gm PO DAILY PRN PRN Reason: Constipation Psyllium Hydrophilic Mucilloid (Psyllium Seed 3.4 Gm Powd.Pack) 3.4 gm PO DAILY [facility] Last Admin: 09/26/21 08:55 Dose: 3.4 gm Documented by: Pyridoxine HCl (Pyridoxine Hcl (Vitamin B6) 50 Mg Tablet) 25 mg PO DAILY [facility] Last Admin: 09/26/21 08:55 Dose: 25 mg Documented by: Sertraline HCl (Sertraline Hcl 50 Mg Tablet) 50 mg PO DAILY [facility] Last Admin: 09/26/21 08:55 Dose: 50 mg Documented by: Trazodone HCl (Trazodone Hcl 50 Mg Tablet) 150 mg PO BEDTIME [facility] Last Admin: 09/25/21 19:31 Dose: 150 mg Documented by: Vitamin D (Cholecalciferol (Vitamin D3) 25 Mcg Tablet) 25 mcg PO DAILY [facility] Last Admin: 09/26/21 08:56 Dose: 25 mcg Documented by: Allergies Allergies Allergy/AdvReac Type Severity Reaction Status Date / Time risperidone [From Risperdal] Allergy Mild gain weight Verified 06/20/21 13:00 aripiprazole [Abilify] Allergy Unknown gain weight Verified 06/20/21 13:00 cariprazine [From Vraylar] AdvReac Verified 06/20/21 13:00 paliperidone AdvReac dystonia Verified 06/20/21 13:00 Assessment & Plan Assessment & Plan (1) Schizoaffective disorder, depressive type: Status: Acute Code(s): F25.1 - Schizoaffective disorder, depressive type Plan Patient with reported schizoaffective depressive ilness admitted with suicide attempt, depression and worsening somatic delusions and hallucinations. She has failed multiple medication trials. - Admit for safety - Milieu therapy - Restart medications. - Management of constipation with metamucil, laxative and dulcolax suppository - Consider ECT - DC planning. 09/23/21 Pt describes PMS, constipation, voices as precipitants to suicide attempt. Mother reports she has found cocaine in pt's possessions-pt denies substance use. Plan: Bowel regime, PMS plan ? SCOTT-Haldol Dec trial No medication changes today. Ongoing exploration of cocaine use and contribution if any to current sx presentation. 09/24/21: start colace 100 mg QHS PRN for constipation, continue haldol due to positive benefit, no med changes. Pt says she feels safe. I spent minutes with the patient and/or on the patient floor today, greater than?50% of which was spent counseling/coordinating care.
--- NOTE | 2021-09-26 17:11 | HO.PSYCHPN ---
Subjective Subjective Date of Service: 09/26/21 Reason For Visit: Schizoeffective disorder bipolar type s/p, SI Subjective Notes: Conditional Voluntary Healthcare Proxy: No Guardianship: No Medical Problems Affecting Mental Status: No Interim History: Pt preparing for discharge. Planning IOP/SOAP with [facility]. Denies SI, HI. Denies current perceptual alterations. 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 Reflective of her not sharing with team that she had purchased and used cocaine. Able to relate substance use to symptom presentation and observe the connection to her destabilization precipitating admission Medication Compliance: Yes Side effects from medications: No Attending Groups: Intermittent Review of Systems Acute medical concerns: No Medical Review of Systems: unchanged Review of Systems Review of Systems Yes all other systems are reviewed and are negative Reports behavioral changes Psychiatric: Reports anxiety, Reports behavioral changes, Reports change in appetite and Reports suicidal ideation (denies) Mental Status Exam Mental Status Exam Patient Appearance: Well Grooomed and Appropriate Patient Orientation: Person, Place, Time and Situation Level of Consciousness: Awake, Appropriate and Alert Patient Behavior: Appropriate, Talkative, Cooperative, Anxious, Distractible and Good Eye Contact Mood Description: Calm, Happy, Withdrawn, Cheerful, Anxious and Apprehensive Affect Description: Apprehensive Patient Cognition Impaired: No Ability to Follow Directions: Good Speech Pattern: Clear, Appropriate, Spontaneous Speech, Coherent, Soft-Spoken and Animated (at times) Memory Description: Intact Hallucinations: None (denies at this time) Delusions: Not Present Perceptual Disturbances: Depersonalization Thought Process: Goal Oriented Thought Content: positive for [place], positive for Circumstantial, positive for Goal Oriented, positive for Logical and positive for Suicidal Ideation (denies) Depressive Symptoms: Increased Anxiety and Low Self Esteem Judgement: Fair Diagnostics Vital Signs (24Hr): Vital Signs - 24 hr 09/25/21 18:00 09/26/21 08:30 Temperature 97.1 F 98.6 F Pulse Rate 69 76 Respiratory Rate 18 Blood Pressure 104/58 L 95/52 L Pulse Oximetry 99 BMI result Body Mass Index 26.5 Labs Results: 09/20/21 13:55 09/20/21 13:55 Medications Medications Current Medications Acetaminophen (Acetaminophen 325 Mg Tablet) 650 mg PO Q6H PRN PRN Reason: Headache/Pain Mild Scale (1-3) Al Hydroxide/Mg Hydroxide (Magnesium Hydrox/Alum Hydrox 30 Ml Oral.Susp) 30 ml PO Q6H PRN PRN Reason: Heartburn/Nausea Benztropine Mesylate (Benztropine Mesylate 1 Mg Tablet) 1 mg PO BID [facility] Last Admin: 09/26/21 08:56 Dose: 1 mg Documented by: Calcium Carbonate/Cholecalciferol (Calcium + Vitamin D 250 Mg Tablet) 250 mg PO DAILY [facility] Last Admin: 09/26/21 08:56 Dose: 250 mg Documented by: Docusate Sodium (Docusate Sodium 100 Mg Capsule) 100 mg PO BEDTIME PRN PRN Reason: constipation Haloperidol (Haloperidol 1 Mg Tablet) 2 mg PO DAILY PRN PRN Reason: Agitation Last Admin: 09/21/21 09:55 Dose: 2 mg Documented by: Haloperidol (Haloperidol 5 Mg Tablet) 5 mg PO BID [facility] Last Admin: 09/26/21 08:56 Dose: 5 mg Documented by: Hydroxyzine HCl (Hydroxyzine Hcl 25 Mg Tablet) 25 mg PO TID PRN PRN Reason: Anxiety Lamotrigine (Lamotrigine 100 Mg Tablet) 100 mg PO DAILY [facility] Last Admin: 09/26/21 08:56 Dose: 100 mg Documented by: Lurasidone HCl (Lurasidone Hcl 20 Mg Tablet) 60 mg PO BEDTIME [facility] Last Admin: 09/25/21 19:31 Dose: 60 mg Documented by: Magnesium Hydroxide (Milk Of Magnesia 30 Ml Oral.Susp) 30 ml PO DAILY PRN PRN Reason: Constipation Last Admin: 09/21/21 09:54 Dose: 30 ml Documented by: Multivitamins/Vitamin C (Multivitamin Tablet) 1 tab PO DAILY [facility] Last Admin: 09/26/21 08:56 Dose: 1 tab Documented by: Nicotine Polacrilex (Nicotine Polacrilex 2 Mg Gum) 2 mg BUCCAL QID PRN PRN Reason: Nicotine Cravings Last Admin: 09/26/21 15:21 Dose: 2 mg Documented by: Polyethylene Glycol (Polyethylene Glycol 3350 17 Gm Powd.Pack) 17 gm PO DAILY PRN PRN Reason: Constipation Psyllium Hydrophilic Mucilloid (Psyllium Seed 3.4 Gm Powd.Pack) 3.4 gm PO DAILY [facility] Last Admin: 09/26/21 08:55 Dose: 3.4 gm Documented by: Pyridoxine HCl (Pyridoxine Hcl (Vitamin B6) 50 Mg Tablet) 25 mg PO DAILY [facility] Last Admin: 09/26/21 08:55 Dose: 25 mg Documented by: Sertraline HCl (Sertraline Hcl 50 Mg Tablet) 50 mg PO DAILY [facility] Last Admin: 09/26/21 08:55 Dose: 50 mg Documented by: Trazodone HCl (Trazodone Hcl 50 Mg Tablet) 150 mg PO BEDTIME [facility] Last Admin: 09/25/21 19:31 Dose: 150 mg Documented by: Vitamin D (Cholecalciferol (Vitamin D3) 25 Mcg Tablet) 25 mcg PO DAILY [facility] Last Admin: 09/26/21 08:56 Dose: 25 mcg Documented by: Allergies Allergies Allergy/AdvReac Type Severity Reaction Status Date / Time risperidone [From Risperdal] Allergy Mild gain weight Verified 06/20/21 13:00 aripiprazole [Abilify] Allergy Unknown gain weight Verified 06/20/21 13:00 cariprazine [From Vraylar] AdvReac Verified 06/20/21 13:00 paliperidone AdvReac dystonia Verified 06/20/21 13:00 Assessment & Plan Assessment & Plan (1) Schizoaffective disorder, depressive type: Status: Acute Code(s): F25.1 - Schizoaffective disorder, depressive type Plan Discharge 09/27/21. No changes in regime per request of guardian (mother) and out pt team. PMS prevention and constipation addressed I spent 25 minutes with the patient and/or on the patient floor today, greater than?50% of which was spent counseling/coordinating care. Patient educated on: substance abuse and therapeutic strategies Informed Consent: understands Reason for contiued inpatient stay Substantial Risk for: stable for discharge
[2021-09-26 19:20] VITALS: BP 135/84; PULSE 56; RESP 16; TEMP 36.2; O2SAT 100
[2021-09-26] MEDS: Lurasidone HCl 20 MG TABLET 60 MG PO (20:11)
[2021-09-26] MEDS: traZODone HCL 50 MG TABLET 150 MG PO (20:11)
[2021-09-27] MEDS: Pyridoxine HCl (Vitamin B6) 50 MG TABLET 25 MG PO (08:39)
[2021-09-27] MEDS: Cholecalciferol (Vitamin D3) 25 MCG TABLET PO (08:39)
[2021-09-27] MEDS: lamoTRIgine 100 MG TABLET PO (08:39)
[2021-09-27] MEDS: Calcium + Vitamin D 250 MG TABLET PO (08:39)
[2021-09-27] MEDS: Sertraline HCL 50 MG TABLET PO (08:39)
[2021-09-27] MEDS: HaloperidoL 5 MG TABLET PO (08:39)
[2021-09-27] MEDS: Nicotine Polacrilex 2 MG GUM BUCCAL (08:39)
[2021-09-27] MEDS: Multivitamin TABLET 1 TAB PO (08:39)
[2021-09-27] MEDS: Benztropine Mesylate 1 MG TABLET PO (09:24)
--- NOTE | 2021-10-28 09:13 | P.DS_ITS ---
DS: Providers Provider Date of Service: 09/27/21 Date of admission: 09/20/21 15:10 Date of discharge: 09/27/21 Primary care physician: Brianna Dunn MD Admitting clinician: Simon Pope Attending physician on admission: Simon Pope Attending physician on discharge: Zeferino Gentile Discharging clinician: Zee Washington DS: Diagnosis Discharge Diagnosis (1) Schizoaffective disorder, depressive type: Status: Acute DS: Medications Discharge Medications Home Medications: Home Medications Medication Instructions Recorded Confirmed benztropine 1 mg tablet 1.5 tab PO BID 09/19/21 10/11/21 cholecalciferol (vitamin D3) 25 1 cap PO DAILY 09/19/21 10/11/21 mcg (1,000 unit) capsule (Vitamin D3) haloperidol 2 mg tablet 1 tab PO DAILY PRN 09/19/21 10/11/21 haloperidol 5 mg tablet 1 tab PO BID 09/19/21 10/11/21 hydroxyzine pamoate 25 mg capsule 1 cap PO TID PRN 09/19/21 10/11/21 lamotrigine 100 mg tablet 1 tab PO DAILY 09/19/21 10/11/21 lurasidone 60 mg tablet (Latuda) 1 tab PO BEDTIME 09/19/21 10/11/21 multivitamin 1 tab PO DAILY 09/19/21 10/11/21 nicotine (polacrilex) 2 mg gum 1 ea PO QID PRN 09/19/21 10/11/21 sertraline 50 mg tablet 1 tab PO DAILY 09/19/21 10/11/21 acetaminophen 500 mg tablet 500 mg PO Q6H PRN 10/11/21 10/11/21 (Tylenol Extra Strength) albuterol sulfate 90 mcg/actuation 2 inh INHALATION Q4-6H PRN 10/11/21 10/11/21 breath activated powder inhaler melatonin 5 mg tablet 10 mg PO BEDTIME 10/11/21 10/11/21 sennosides 8.6 mg tablet (senna) 8.6 mg PO BID 10/11/21 10/11/21 Previous Rx's Medication Instructions Recorded calcium carbonate 250 mg-vitamin 250 mg PO DAILY #0 tab 09/27/21 D3 3.125 mcg (125 unit) tablet polyethylene glycol 3350 17 gram 17 g PO DAILY PRN #0 ea 09/27/21 oral powder packet psyllium husk (aspartame) 3.4 gram 3.4 g PO DAILY #0 ea 09/27/21 oral powder packet (Metamucil Fiber Singles) pyridoxine (vitamin B6) 50 mg 25 mg PO DAILY #0 tab 09/27/21 tablet Mental Status Exam Mental Status Exam Patient Appearance: Well Grooomed and Appropriate Patient Orientation: Person, Place, Time and Situation Level of Consciousness: Awake, Appropriate and Alert Patient Behavior: Appropriate, Talkative, Cooperative, Anxious, Distractible and Good Eye Contact Mood Description: Calm, Happy, Withdrawn, Cheerful, Anxious and Apprehensive Affect Description: Apprehensive Patient Cognition Impaired: No Ability to Follow Directions: Good Speech Pattern: Clear, Appropriate, Spontaneous Speech, Coherent, Soft-Spoken and Animated (at times) Memory Description: Intact Hallucinations: None (denies at this time) Delusions: Not Present Perceptual Disturbances: Depersonalization Thought Process: Goal Oriented Thought Content: positive for [place], positive for Circumstantial, positive for Goal Oriented, positive for Logical and positive for Suicidal Ideation (denies) Depressive Symptoms: Increased Anxiety and Low Self Esteem Judgement: Fair DS: Summary Hospital Course Hospital Course: Admission to adult psychiatry to address symptoms of PTSD, Schizoaffective Disorder. Care plan, medication regime and out patient plan of care prior to admission were reviewed. Education was provided regarding symptom managment, medications and side effects. Nursing and social media sr strategy manager worked with Desi on care planning, education regarding managment of symptoms and medications and discharge planning. Out patient team was consulted regarding medication changes. They asked that no changes be made as it was learned after admission that Desi had used cocaine which may have exacerbated symptoms. Prior to use, the regime has been consistently effective. Calcium, vitamin D3, vitamin B6 were initiated to assist with PMS sx mgt along with fiber regime for prevention of constipation. Pt was accepted to [facility] and will begin their addiction program upon discharge. Time spent discussing smoking cessation with patient: 3 to 10 minutes Status at Discharge Functional status at discharge: independent ambulation Overall status at discharge: patient is back to baseline Time Spent with Patient Time attestation: Total time spent providing and/or coordinating discharge services: 35 Time spent: Greater than 30 minutes Discharge Plan Discharge Patient Disposition: Home, Self-Care Discharge Diagnosis: Schizoaffective Disorder PTSD Stimulant Use Disorder-Cocaine Referrals: IOP: [facility] [Other] - 10/01/21 9:00 am (Telehealth) Therapist:Thu Greene ([facility]) [Other] - 09/27/21 11:00 am (Telehealth ) Therapist: Thu Greene ([facility]) [Other] - 10/04/21 11:00 am Psych [facility] - 09/27/21 10:00 am (Telehealth ) Brianna Dunn MD [Primary Care Provider] - 1 Week ( ) Discharge Medications: New calcium carbonate-vitamin D3 250 mg-3.125 mcg (125 unit) Tablet 250 mg PO DAILY Qty: 0 0RF polyethylene glycol 3350 17 gram Powder In Packet 17 g PO DAILY PRN (Reason: Constipation) Qty: 0 0RF Metamucil Fiber Singles 3.4 gram Powder In Packet 3.4 g PO DAILY Qty: 0 0RF pyridoxine (vitamin B6) 50 mg Tablet 25 mg PO DAILY Qty: 0 0RF Continued multivitamin Tablet 1 tab PO DAILY 0RF haloperidol 5 mg tablet 1 tab PO BID 0RF nicotine (polacrilex) 2 mg gum 1 ea PO QID PRN (Reason: Nicotine Cravings) 0RF benztropine 1 mg tablet 1.5 tab PO BID 0RF lamotrigine 100 mg tablet 1 tab PO DAILY 0RF hydroxyzine pamoate 25 mg capsule 1 cap PO TID PRN (Reason: Anxiety) 0RF Latuda 60 mg tablet 1 tab PO BEDTIME 0RF haloperidol 2 mg tablet 1 tab PO DAILY PRN (Reason: Agitation) 0RF cholecalciferol (vitamin D3) [Vitamin D3] 25 mcg (1,000 unit) capsule 1 cap PO DAILY 0RF sertraline 50 mg tablet 1 tab PO DAILY 0RF No Action melatonin 5 mg tablet 10 mg PO BEDTIME 0RF sennosides [senna] 8.6 mg tablet 8.6 mg PO BID 0RF albuterol sulfate 90 mcg/actuation aerosol powdr breath activated 2 inh inhalation Q4-6H PRN0RF acetaminophen [Tylenol Extra Strength] 500 mg tablet 500 mg PO Q6H PRN0RF Discharge Orders: Discharge Order (Routine); Ordered 09/27/21 Ordered By: Zee Washington Diet: advance to usual diet Activity on Discharge: As tolerated Stand Alone Forms: Patient Portal Discharge page, Community Support Care Plan Goals: Mood Stabilization Sobriety Health Concerns: Schizoaffective Disorder PTSD Polysubtance Use PMS Symptoms Constipation Plan of Treatment: Attend scheduled appointments Take medications as directed Attend addictions IOP program with [facility] Assessment: non-suicidal, non-psychotic. Pleased to be returning to her college courses and attending IOP. Discharge Date/Time: 09/27/21 10:17
== END 2021-09-27 10:17 | disposition home or self-care (01) | DRG 750 ==
LOC: HO.ED 21:15 → HO.PM5 09-23 08:27
PROVIDERS: Emergency Medicine; Admitting Provider Psychiatry & Neurology Psychiatry; Emergency Provider Emergency Medicine Emergency Medical Services; PCP Internal Medicine; Visit Provider Clinical Nurse Specialist Psychiatric/Mental Health, Adult
DX: F25.1 Schizoaffective disorder, depressive type (principal); R45.851 Suicidal ideations; F17.210 Nicotine dependence, cigarettes, uncomplicated; Z20.822 Contact with and (suspected) exposure to COVID-19; Z71.6 Tobacco abuse counseling; Z79.899 Other long term (current) drug therapy
CPT/HCPCS: 36415; 80048; 80061; 80307; 81001; 81025; 82607; 82746; 83036; 83735; 84439; 84443; 85025; 87635; 93005; 99284

== ENCOUNTER 2021-10-09 09:17 | Outpatient (REF) | payer OTHER, SELFPAY ==
[2021-10-09 17:24] LABS: CT PCR NOT DETECTED (Not Detect.); NG PCR NOT DETECTED (Not Detect.)
[2021-10-10 08:48] LABS: BV Int Neg Control Negative (Negative); BV Int Pos Control Positive (Positive)
== END 2021-10-09 09:18 | disposition home or self-care (01) ==
LOC: HO.LAB 09:17
PROVIDERS: PCP Internal Medicine; Visit Provider Advanced Practice Midwife
DX: Z30.09 Encounter for other general counseling and advice on contraception (principal); Z20.2 Contact with and (suspected) exposure to infections with a predominantly sexual mode of transmission
CPT/HCPCS: 87480; 87491; 87510; 87591; 87660; 88142

== ENCOUNTER 2022-01-05 13:39 | Emergency (ER) | payer OTHER, MEDICARE, MEDICAID, SELFPAY ==
[2022-01-05 13:50] VITALS: BP 110/71; PULSE 86; O2SAT 96; BMI 25.3
[2022-01-05 14:00] VITALS: BP 109/62; PULSE 93; RESP 18; TEMP 35.9; O2SAT 96
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
== END 2022-01-05 16:15 | disposition home or self-care (01) ==
PROVIDERS: Emergency Provider Emergency Medicine; PCP Internal Medicine
DX: S70.361A Insect bite (nonvenomous), right thigh, initial encounter (principal); J45.909 Unspecified asthma, uncomplicated; W57.XXXA Bitten or stung by nonvenomous insect and other nonvenomous arthropods, initial encounter; Y93.9 Activity, unspecified; Y92.9 Unspecified place or not applicable; Y99.9 Unspecified external cause status
CPT/HCPCS: 99283

== ENCOUNTER 2022-02-21 13:16 | Inpatient (IN) | payer MEDICARE, OTHER, MEDICAID, SELFPAY ==
[2022-02-21 13:35] VITALS: BP 122/88; PULSE 80; O2SAT 98; BMI 20.5
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
--- NOTE | 2022-02-21 14:01 | PC.NURSE ---
This RN spoke with Jose the group leader semiconductor testing. She stated that patient has been steadily decompensating over the past 2 weeks. Information Systems Professor stated she has not been taking her meds, has been hearing voices and responding to internal stimuli, and screaming. N has evaluated pt in the community and made her a Section 12 bedsearch. Per Sarah from CARE team she will be accepted to later on this evening.
--- NOTE | 2022-02-21 14:18 | PC.NURSE ---
Pt noted to be acting oddly protective of her pillow. Pt seen pucking something under her pillow. When her pillow was moved, her phone and fine dining server under pillow. Pt also noted to have hidden her phone luggage repairer which also was confiscated.
[2022-02-21 14:41] VITALS: BP 102/81; PULSE 83; RESP 18; TEMP 37; O2SAT 97
[2022-02-21] MEDS: LORazepam 1 MG TABLET 2 MG PO (16:07)
[2022-02-21 16:33] LABS: Basophils Percent Auto 0.3 % (0-2); Lymphocytes Absolute Auto 1.7 X10*3/uL (1.2-4.9); PLT CLUMP 1; SCAN SMEAR FLAG 1
[2022-02-21 16:34] LABS: Eosinophils Percent Auto 0.7 % (0-4); Hematocrit 39.7 % (37.0-47.0); Hemoglobin 13.9 g/dl (12.0-16.0); Imm Gran Abs Auto 0.02 X10*3/uL (0.00-0.03); Imm Gran Pct Auto 0.3 % (0.0-0.4); Lymphocytes Percent Auto 28.1 % (20-40); MANUAL DIFF FLAG SCAN; Mean Corpuscular Hemoglobin 31.6 pg (27.0-33.0); Mean Corpuscular Volume 90.2 fL (80.0-98.0); Monocytes Absolute Auto 0.4 X10*3/uL (0.1-1.2); Monocytes Percent Auto 5.9 % (2-11); Neutrophils Absolute Auto 3.9 x10*3/uL (2.0-8.3); Neutrophils Percent Auto 64.7 % (45-73); Red Cell Distribution Width 12.2 % (11.0-16.0)
[2022-02-21 16:34] LABS: COVID-19 Test Negative (Negative)
[2022-02-21 16:45] LABS: Ethanol < 10 mg/dL
[2022-02-21 16:50] LABS: Acetaminophen LAB < 1 mcg/mL (<30); Alanine Aminotransferase 11 U/L (0-31); Albumin Level 4.9 g/dL (3.5-5.0); Alkaline Phosphatase 50 U/L (39-117); Anion Gap 17 (12-20); Aspartate Amino Transferase 18 U/L (5-31); Bilirubin Direct 0.3 mg/dL (0.0-0.5); Bilirubin Total 0.7 mg/dL (0.0-1.0); Blood Urea Nitrogen 4 mg/dL (9-16); Calcium 9.7 mg/dL (8.4-10.2); Carbon Dioxide 22 mmol/L (22-29); Chloride 103 mmol/L (96-108); Creatinine Clr Calc Pharmacy 92.1; Estimated Glomerular Filt Rate > 60; Glucose Random 139 mg/dL (60-115); Potassium 4.2 mmol/L (3.3-5.1); Salicylate < 5.0 mg/dL (15-30); Sodium 138 mmol/L (135-145); Total Protein 7.5 g/dL (6.5-8.0)
[2022-02-21 16:51] LABS: Platelet Count 193 X10*3/uL (160-400)
[2022-02-21 16:52] LABS: SLIDE REVIEW VERIFIED
--- NOTE | 2022-02-21 18:25 | PHA.MEDREC ---
MED REC COMPLETE, NO ISSUES Pharmacy Consult ? Medication Reconciliation Pharmacy has completed the medication reconciliation.
[2022-02-21 22:10] VITALS: BP 113/70; PULSE 75; RESP 18; TEMP 36.1; O2SAT 100
[2022-02-21 22:40] LABS: UPreg QC Valid YES; Urine Pregnancy NEGATIVE (NEGATIVE)
[2022-02-21 22:47] LABS: Amphetamine Screen Urine Not Detected (Not Detect); Barbiturates, Urine Not Detected (Not Detect); Benzodiazepines Screen Urine Not Detected (Not Detect); Cannabinoid Screen Urine Not Detected (Not Detect); Cocaine Screen Urine Not Detected (Not Detect); Fentanyl, urine Not Detected (Not Detect); Opiate Screen Urine Not Detected (Not Detect); Phencyclidine Screen Urine Not Detected (Not Detect)
[2022-02-21 23:23] VITALS: BP 116/77; PULSE 71; TEMP 36.4; O2SAT 98
--- NOTE | 2022-02-22 03:06 | PC.ADMIT ---
21 y.o female with a hx of unspecified Bipolar and Unspecified schizophrenia spectrum disorder was brought to the ED from [facility] due to pt decompensating over the past few weeks.Per Crisis eval, pt had been presenting with psychosis, command hallucinations and SIB.Pt had not been fully compliant with medications nor engaging with outside providers.She had also been inconsistent with appetite or sleep. Pt signed a CV while still in the POD. Pt arrived on the unit at approx.2230 via wheel chair,appeared drowsy and fatigued, was cooperative with taking her VSS which were WNL and signing admission paperwork, refused admission assessments telling this RN, where's my room? I want to sleep. The pt denied SI/HI/AVH. The Dr was notified, admission orders obtained, nurse to nurse completed prior to admission and treatment plan initiated. Pt is on 15 min safety checks.
[2022-02-22 11:00] VITALS: BP 111/72; PULSE 85; TEMP 36.6
[2022-02-22] MEDS: Calcium + Vitamin D 250 MG TABLET PO (11:06)
[2022-02-22] MEDS: Multivitamin TABLET 1 TAB PO (11:07)
[2022-02-22] MEDS: Sertraline HCL 50 MG TABLET PO (11:07)
[2022-02-22] MEDS: Benztropine Mesylate 0.5 MG TABLET 1.5 MG PO ×2 (11:07→19:50)
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
[2022-02-22 13:23] LABS: Cholesterol 149 mg/dL; HDL Cholesterol 49 mg/dL; LDL Cholesterol Calculated 81 mg/dl; Triglycerides 95 mg/dL
[2022-02-22] MEDS: Nicotine Polacrilex 2 MG GUM BUCCAL ×3 (13:32→20:28)
[2022-02-22 13:42] LABS: Free T4 (Free Thyroxine) 0.85 ng/dL (0.71-1.85)
[2022-02-22 18:00] VITALS: BP 110/70; PULSE 79; RESP 16; TEMP 36.5; O2SAT 98
[2022-02-22] MEDS: Melatonin 3 MG TABLET 9 MG PO (19:51)
[2022-02-22] MEDS: Lurasidone HCl 80 MG TABLET PO (19:51)
[2022-02-22] MEDS: lamoTRIgine 25 MG TABLET PO (19:52)
[2022-02-23 06:43] VITALS: BP 106/66; PULSE 79; RESP 16; TEMP 36.8; O2SAT 100
[2022-02-23] MEDS: Multivitamin TABLET 1 TAB PO (08:59)
[2022-02-23] MEDS: Calcium + Vitamin D 250 MG TABLET PO (08:59)
[2022-02-23] MEDS: Benztropine Mesylate 0.5 MG TABLET 1.5 MG PO ×2 (08:59→21:54)
[2022-02-23] MEDS: Sertraline HCL 50 MG TABLET PO (09:00)
--- NOTE | 2022-02-23 11:51 | HO.PSYCHPN ---
Subjective Subjective Date of Service: 02/23/22 Reason For Visit: Psychosis Subjective Notes: Conditional Voluntary Interim History: presents today as pleasant and engaged. Discussed group living concerns regarding medication adherence and mental state. Adamantly denies that she was not adherent with medications. Reports that medications help her not hear voices and that there is also a court order. Sleep okay here. Denies depression. No SI or HI. Regarding previous medications, did clarify having dystonic reactions in the past involving neck and tongue. Medication Compliance: Yes Side effects from medications: No Attending Groups: Intermittent Review of Systems Acute medical concerns: No Mental Status Exam Mental Status Exam Narrative: Pleasant and engaged today. Self-care okay. Appears largely thank. No SI. No HI. No overt psychosis noted. Insight and judgment appears okay Diagnostics Vital Signs (24Hr): Vital Signs - 24 hr 02/22/22 18:00 02/23/22 06:43 Temperature 97.7 F 98.2 F Pulse Rate 79 79 Respiratory Rate 16 16 Blood Pressure 110/70 106/66 Pulse Oximetry 98 100 Oxygen Delivery Method Room Air Room Air BMI result Body Mass Index 20.5 Labs Results: 02/21/22 16:26 02/21/22 16:26 Labs: Laboratory Results - last 48 hr 02/21/22 02/21/22 02/21/22 16:00 16:26 16:26 WBC 6.0 RBC 4.40 Hgb 13.9 Hct 39.7 MCV 90.2 MCH 31.6 MCHC 35.0 RDW 12.2 Plt Count 193 MPV Not Reportable Immature Gran % (Auto) 0.3 Neut % (Auto) 64.7 Lymph % (Auto) 28.1 Bacon % (Auto) 5.9 Eos % (Auto) 0.7 Baso % (Auto) 0.3 Lymph # (Auto) 1.7 Bacon # (Auto) 0.4 Eos # (Auto) 0.0 Baso # (Auto) 0.0 Abs Immat Gran (auto) 0.02 Absolute Neuts (auto) 3.9 Absolute Nucleated RBC 0.000 Nucleated RBC % (auto) 0.0 Smear Tech's Comments VERIFIED Sodium 138 Potassium 4.2 Chloride 103 Carbon Dioxide 22 Anion Gap 17 BUN 4 L Creatinine 0.83 Estim Creat Clear Calc 92.1 Estimated GFR > 60 Random Glucose 139 H Calcium 9.7 Magnesium Total Bilirubin 0.7 Direct Bilirubin 0.3 AST 18 ALT 11 Alkaline Phosphatase 50 Total Protein 7.5 Albumin 4.9 Triglycerides Cholesterol LDL Cholesterol, Calc HDL Cholesterol TSH Free T4 Urine Test Salicylates < 5.0 L Urine Opiates Screen Urine Fentanyl Screen Acetaminophen < 1 Ur Barbiturates Screen Ur Phencyclidine Scrn Ur Amphetamines Screen U Benzodiazepines Scrn Urine Cocaine Screen U Marijuana (THC) Screen Ethyl Alcohol COVID-19 ([facility]) Negative COVID-19 Clin Com See Note 02/21/22 02/21/22 02/21/22 16:26 22:27 22:27 WBC RBC Hgb Hct MCV MCH MCHC RDW Plt Count MPV Immature Gran % (Auto) Neut % (Auto) Lymph % (Auto) Bacon % (Auto) Eos % (Auto) Baso % (Auto) Lymph # (Auto) Bacon # (Auto) Eos # (Auto) Baso # (Auto) Abs Immat Gran (auto) Absolute Neuts (auto) Absolute Nucleated RBC Nucleated RBC % (auto) Smear Tech's Comments Sodium Potassium Chloride Carbon Dioxide Anion Gap BUN Creatinine Estim Creat Clear Calc Estimated GFR Random Glucose Calcium Magnesium Total Bilirubin Direct Bilirubin AST ALT Alkaline Phosphatase Total Protein Albumin Triglycerides Cholesterol LDL Cholesterol, Calc HDL Cholesterol TSH Free T4 Urine Test NEGATIVE Salicylates Urine Opiates Screen Not Detected Urine Fentanyl Screen Not Detected Acetaminophen Ur Barbiturates Screen Not Detected Ur Phencyclidine Scrn Not Detected Ur Amphetamines Screen Not Detected U Benzodiazepines Scrn Not Detected Urine Cocaine Screen Not Detected U Marijuana (THC) Screen Not Detected Ethyl Alcohol < 10 COVID-19 ([facility]) COVID-19 Clin Com 02/22/22 12:50 WBC RBC Hgb Hct MCV MCH MCHC RDW Plt Count MPV Immature Gran % (Auto) Neut % (Auto) Lymph % (Auto) Bacon % (Auto) Eos % (Auto) Baso % (Auto) Lymph # (Auto) Bacon # (Auto) Eos # (Auto) Baso # (Auto) Abs Immat Gran (auto) Absolute Neuts (auto) Absolute Nucleated RBC Nucleated RBC % (auto) Smear Tech's Comments Sodium Potassium Chloride Carbon Dioxide Anion Gap BUN Creatinine Estim Creat Clear Calc Estimated GFR Random Glucose Calcium Magnesium 2.0 Total Bilirubin Direct Bilirubin AST ALT Alkaline Phosphatase Total Protein Albumin Triglycerides 95 Cholesterol 149 LDL Cholesterol, Calc 81 HDL Cholesterol 49 D TSH 0.30 L Free T4 0.85 Urine Test Salicylates Urine Opiates Screen Urine Fentanyl Screen Acetaminophen Ur Barbiturates Screen Ur Phencyclidine Scrn Ur Amphetamines Screen U Benzodiazepines Scrn Urine Cocaine Screen U Marijuana (THC) Screen Ethyl Alcohol COVID-19 ([facility]) COVID-19 Clin Com Medications Medications Current Medications Acetaminophen (Acetaminophen 325 Mg Tablet) 650 mg PO Q6H PRN PRN Reason: Headache/Pain Mild Scale (1-3) Al Hydroxide/Mg Hydroxide (Magnesium Hydrox/Alum Hydrox 30 Ml Oral.Susp) 30 ml PO Q6H PRN PRN Reason: Heartburn/Nausea Albuterol Sulfate (Albuterol Sulfate 90 Mcg 8 Gm Inhaler) 2 puff INHALE QID PRN PRN Reason: shortness of breath or wheezing Benztropine Mesylate (Benztropine Mesylate 0.5 Mg Tablet) 1.5 mg PO BID [facility] [place] Last Admin: 02/23/22 08:59 Dose: 1.5 mg Calcium Carbonate/Cholecalciferol (Calcium + Vitamin D 250 Mg Tablet) 250 mg PO DAILY [facility] Last Admin: 02/23/22 08:59 Dose: 250 mg Chlorpromazine HCl (Chlorpromazine Hcl 10 Mg Tablet) 10 mg PO BID PRN PRN Reason: Psychosis Diphenhydramine HCl (Diphenhydramine Hcl 25 Mg Tablet) 25 mg PO DAILY PRN PRN Reason: DYSTONIA Hydroxyzine HCl (Hydroxyzine Hcl 25 Mg Tablet) 25 mg PO Q6H PRN PRN Reason: Anxiety Hydroxyzine HCl (Hydroxyzine Hcl 25 Mg Tablet) 25 mg PO TID PRN PRN Reason: ANXIETY/SLEEP Lamotrigine (Lamotrigine 25 Mg Tablet) 25 mg PO BEDTIME [facility] Last Admin: 02/22/22 19:52 Dose: 25 mg Lurasidone HCl (Lurasidone Hcl 80 Mg Tablet) 80 mg PO BEDTIME [facility] [place] Last Admin: 02/22/22 19:51 Dose: 80 mg Magnesium Hydroxide (Milk Of Magnesia 30 Ml Oral.Susp) 30 ml PO DAILY PRN PRN Reason: Constipation Melatonin (Melatonin 3 Mg Tablet) 9 mg PO BEDTIME [facility] [place] Last Admin: 02/22/22 19:51 Dose: 9 mg Multivitamins/Vitamin C (Multivitamin Tablet) 1 tab PO DAILY [facility] [place] Last Admin: 02/23/22 08:59 Dose: 1 tab Nicotine Polacrilex (Nicotine Polacrilex 2 Mg Gum) 2 mg BUCCAL Q2H PRN PRN Reason: Nicotine Cravings Last Admin: 02/22/22 20:28 Dose: 2 mg Polyethylene Glycol (Polyethylene Glycol 3350 17 Gm Powd.Pack) 17 gm PO DAILY PRN PRN Reason: constipation Sertraline HCl (Sertraline Hcl 50 Mg Tablet) 50 mg PO DAILY [facility] Last Admin: 02/23/22 09:00 Dose: 50 mg Allergies Allergies Allergy/AdvReac Type Severity Reaction Status Date / Time risperidone [From Risperdal] Allergy Mild gain weight Verified 12/19/21 14:42 aripiprazole [Abilify] Allergy Unknown gain weight Verified 12/19/21 14:42 cariprazine [From Vraylar] AdvReac Verified 12/19/21 14:42 haloperidol [From Haldol] AdvReac DYSTONIA Verified 02/21/22 18:22 paliperidone AdvReac dystonia Verified 12/19/21 14:42 trazodone AdvReac DYSTONIA Verified 02/21/22 18:23 Assessment & Plan Assessment & Plan (1) Schizoaffective disorder, depressive type: Status: Acute Code(s): F25.1 - Schizoaffective disorder, depressive type Plan Patient with reported schizoaffective depressive ilness admitted with concerns regarding ability to care for self, paranoia, suicidal thoughts off medications for 2 weeks. - Admit for safety - Milieu therapy - DC planning Regarding medications will restart Latuda 80 mg, Zoloft 50 mg, trazodone 150 mg. Will restart Lamictal at 25 mg as it appears she has been off his for the best part of 2 weeks. Will also try to clarify Haldol adverse effect of dystonia in context of patient being discharged on same in September 2021. 02/23/2022: No changes to current regimen. Did clarify dystonic reactions in the past I spent minutes with the patient and/or on the patient floor today, greater than?50% of which was spent counseling/coordinating care. Reason for contiued inpatient stay Substantial Risk for: inability to function
[2022-02-23] MEDS: Nicotine Polacrilex 2 MG GUM BUCCAL ×3 (14:46→20:49)
[2022-02-23 18:00] VITALS: BP 109/72; PULSE 98; TEMP 36.8; O2SAT 98
--- NOTE | 2022-02-23 18:50 | PC.NURSE ---
Jose, from [facility] called for an update. She will call in the a.m. to set up time to visit with patient.
[2022-02-23] MEDS: Melatonin 3 MG TABLET 9 MG PO (21:55)
[2022-02-23] MEDS: Lurasidone HCl 80 MG TABLET PO (21:55)
[2022-02-23] MEDS: lamoTRIgine 25 MG TABLET PO (21:55)
[2022-02-24 08:30] VITALS: BP 114/84; PULSE 97; TEMP 36.9
[2022-02-24] MEDS: Benztropine Mesylate 0.5 MG TABLET 1.5 MG PO ×2 (09:21→21:54)
[2022-02-24] MEDS: Multivitamin TABLET 1 TAB PO (09:21)
[2022-02-24] MEDS: Calcium + Vitamin D 250 MG TABLET PO (09:21)
[2022-02-24] MEDS: Sertraline HCL 50 MG TABLET PO (09:21)
[2022-02-24] MEDS: Nicotine Polacrilex 2 MG GUM BUCCAL ×3 (14:09→21:59)
--- NOTE | 2022-02-24 15:26 | P.PNPSI_ITS ---
Subjective Subjective Date of Service: 02/24/22 Reason For Visit: Psychosis Interim History: declined to engage in interview today. Stated she had nothing to talk about and felt fine. Has been medication adherent. Some group attendance. Sleep has been okay. . Medication Compliance: Yes Side effects from medications: No Attending Groups: Intermittent Review of Systems Acute medical concerns: No Review of Systems Review of Systems Yes all other systems are reviewed and are negative Mental Status Exam Mental Status Exam Narrative: Declined to engage in interview. Self-care okay. No agitation noted. No e vidence of SI or HI. No overt psychosis noted. Diagnostics Vital Signs (24Hr): Vital Signs - 24 hr 02/23/22 18:00 02/24/22 08:30 Temperature 98.2 F 98.4 F Pulse Rate 98 97 Blood Pressure 109/72 114/84 Pulse Oximetry 98 Oxygen Delivery Method Room Air BMI result Body Mass Index 20.5 Labs Results: 02/21/22 16:26 02/21/22 16:26 Medications Medications Current Medications Acetaminophen (Acetaminophen 325 Mg Tablet) 650 mg PO Q6H PRN PRN Reason: Headache/Pain Mild Scale (1-3) Al Hydroxide/Mg Hydroxide (Magnesium Hydrox/Alum Hydrox 30 Ml Oral.Susp) 30 ml PO Q6H PRN PRN Reason: Heartburn/Nausea Albuterol Sulfate (Albuterol Sulfate 90 Mcg 8 Gm Inhaler) 2 puff INHALE QID PRN PRN Reason: shortness of breath or wheezing Benztropine Mesylate (Benztropine Mesylate 0.5 Mg Tablet) 1.5 mg PO BID [facility] Last Admin: 02/24/22 09:21 Dose: 1.5 mg Calcium Carbonate/Cholecalciferol (Calcium + Vitamin D 250 Mg Tablet) 250 mg PO DAILY [facility] Last Admin: 02/24/22 09:21 Dose: 250 mg Chlorpromazine HCl (Chlorpromazine Hcl 10 Mg Tablet) 10 mg PO BID PRN PRN Reason: Psychosis Diphenhydramine HCl (Diphenhydramine Hcl 25 Mg Tablet) 25 mg PO DAILY PRN PRN Reason: DYSTONIA Hydroxyzine HCl (Hydroxyzine Hcl 25 Mg Tablet) 25 mg PO Q6H PRN PRN Reason: Anxiety Hydroxyzine HCl (Hydroxyzine Hcl 25 Mg Tablet) 25 mg PO TID PRN PRN Reason: ANXIETY/SLEEP Lamotrigine (Lamotrigine 25 Mg Tablet) 25 mg PO BEDTIME [facility] Last Admin: 02/23/22 21:55 Dose: 25 mg Lurasidone HCl (Lurasidone Hcl 80 Mg Tablet) 80 mg PO BEDTIME [facility] Last Admin: 02/23/22 21:55 Dose: 80 mg Magnesium Hydroxide (Milk Of Magnesia 30 Ml Oral.Susp) 30 ml PO DAILY PRN PRN Reason: Constipation Melatonin (Melatonin 3 Mg Tablet) 9 mg PO BEDTIME [facility] Last Admin: 02/23/22 21:55 Dose: 9 mg Multivitamins/Vitamin C (Multivitamin Tablet) 1 tab PO DAILY [facility] Last Admin: 02/24/22 09:21 Dose: 1 tab Nicotine Polacrilex (Nicotine Polacrilex 2 Mg Gum) 2 mg BUCCAL Q2H PRN PRN Reason: Nicotine Cravings Last Admin: 02/24/22 14:09 Dose: 2 mg Polyethylene Glycol (Polyethylene Glycol 3350 17 Gm Powd.Pack) 17 gm PO DAILY PRN PRN Reason: constipation Sertraline HCl (Sertraline Hcl 50 Mg Tablet) 50 mg PO DAILY [facility] Last Admin: 02/24/22 09:21 Dose: 50 mg Allergies Allergies Allergy/AdvReac Type Severity Reaction Status Date / Time risperidone [From Risperdal] Allergy Mild gain weight Verified 12/19/21 14:42 aripiprazole [Abilify] Allergy Unknown gain weight Verified 12/19/21 14:42 cariprazine [From Vraylar] AdvReac Verified 12/19/21 14:42 haloperidol [From Haldol] AdvReac DYSTONIA Verified 02/21/22 18:22 paliperidone AdvReac dystonia Verified 12/19/21 14:42 trazodone AdvReac DYSTONIA Verified 02/21/22 18:23 Assessment & Plan Assessment & Plan (1) Schizoaffective disorder, depressive type: Status: Acute Code(s): F25.1 - Schizoaffective disorder, depressive type Plan Patient with reported schizoaffective depressive ilness admitted with concerns regarding ability to care for self, paranoia, suicidal thoughts off medications for 2 weeks. - Admit for safety - Milieu therapy - DC planning Regarding medications will restart Latuda 80 mg, Zoloft 50 mg, trazodone 150 mg. Will restart Lamictal at 25 mg as it appears she has been off his for the best part of 2 weeks. Will also try to clarify Haldol adverse effect of dystonia in context of patient being discharged on same in September 2021. 02/23/2022: No changes to current regimen. Did clarify dystonic reactions in the past 02/24/2022: No changes to current regimen I spent minutes with the patient and/or on the patient floor today, greater than?50% of which was spent counseling/coordinating care. Reason for contiued inpatient stay Substantial Risk for: inability to function
[2022-02-24 21:40] VITALS: BP 113/78; PULSE 73; TEMP 37.2
[2022-02-24] MEDS: hydrOXYzine HCL 25 MG TABLET PO (21:54)
[2022-02-24] MEDS: lamoTRIgine 25 MG TABLET PO (21:54)
[2022-02-24] MEDS: Lurasidone HCl 80 MG TABLET PO (21:54)
[2022-02-24] MEDS: Melatonin 3 MG TABLET 9 MG PO (21:54)
[2022-02-25 06:00] VITALS: BP 116/74; PULSE 72; TEMP 36.8; O2SAT 99
[2022-02-25 07:16] LABS: Folate > 20.0 ng/mL (> or = 4.0); Vitamin B12 611 pg/mL (200-900)
[2022-02-25] MEDS: Multivitamin TABLET 1 TAB PO (08:56)
[2022-02-25] MEDS: Benztropine Mesylate 0.5 MG TABLET 1.5 MG PO ×2 (08:56→22:31)
[2022-02-25] MEDS: Calcium + Vitamin D 250 MG TABLET PO (08:56)
[2022-02-25] MEDS: Sertraline HCL 50 MG TABLET PO (08:56)
[2022-02-25] MEDS: Nicotine Polacrilex 2 MG GUM BUCCAL ×5 (12:56→22:33)
--- NOTE | 2022-02-25 14:08 | PC.NURSE ---
PT observed leaving unit 12:45 for a brief second as the door was opened for lunch getting to the area passed cart to elevator area.PT immediate returned with request to reenter with the words. You know this isn't the right thing for your best interest.
--- NOTE | 2022-02-25 17:04 | P.PNPSI_ITS ---
Subjective Subjective Date of Service: 02/25/22 Reason For Visit: Psychosis Subjective Notes: Conditional Voluntary Healthcare Proxy: No Guardianship: Yes Medical Problems Affecting Mental Status: No Interim History: Admission with restart of Latuda 80 mg, Sertraline 50 mg, Trazodone 150 mg, Lamictal 25 mg without adverse effect. Desi is angry today. She discussed feeling controlled by mom, seeing ghosts, feeling isolative and describes delusions and paranoia. She tells tw that meds just make things worse . don't want or need them , and I don't need a guardian , states mother does not know how to respond to her except to say that she cannot take me anymore and I will need to go away. Reports 4 months of poor memory, agitation, no concentration, being unable to read or watch TV. If you can fix this with meds I will let you try. Discussed needing to see her [facility] to assess options the court has given. Pt quick and responsive, see that is not how it should be, you and I should choose, not someone who does not know or care about me. (tearful). Responds to education and support. Medication Compliance: Yes Side effects from medications: No Attending Groups: No Review of Systems Acute medical concerns: No Medical Review of Systems: unchanged Review of Systems Reports behavioral changes Psychiatric: Reports anxiety, Reports behavioral changes, Reports depression, Reports difficulty concentrating, Reports auditory hallucinations, Reports hopelessness, Reports irritability, Reports anhedonia, Reports mood swings, Reports paranoia, Reports visual hallucinations, Reports hallucinations, Reports homicidal ideation (denies) and Reports suicidal ideation (denies) Mental Status Exam Mental Status Exam Patient Appearance: Appropriate Patient Orientation: Person, Place and Time Level of Consciousness: Alert Patient Behavior: Talkative, Cooperative, Anxious, Fearful, Resistive to Care (yes, however at the same time she asks for help in sx mgt.), Fatigued, Distractible, Isolative, Good Eye Contact and Impulsive (left the unit to the hallway when the diet cart was coming in. Returned when asked, no issues) Mood Description: Withdrawn, Depressed, Anxious, Angry and Apprehensive Affect Description: Flat Patient Cognition Impaired: Yes Ability to Follow Directions: Good Speech Pattern: Spontaneous Speech Memory Description: Episodic Impaired Hallucinations: Auditory and Visual Delusions: Being Controlled, Paranoid Ideation and Present Perceptual Disturbances: Depersonalization and Derealization Thought Process: Illogical, Distracted and Rumination Thought Content: positive for [place], positive for Obsessional Thoughts, positive for Circumstantial, positive for Perseveration, positive for Preoccupation, positive for Thought Blocking and positive for Suicidal Ideation (denies) Depressive Symptoms: Increased Anxiety, Increased Irritability and Low Self Esteem Abnormal Motor Activity Signs and Symptoms: Restlessness Judgement: Poor Diagnostics Vital Signs (24Hr): Vital Signs - 24 hr 02/24/22 21:40 02/25/22 06:00 Temperature 98.9 F 98.3 F Pulse Rate 73 72 Blood Pressure 113/78 116/74 Pulse Oximetry 99 Oxygen Delivery Method Room Air BMI result Body Mass Index 20.5 Labs Results: 02/21/22 16:26 02/21/22 16:26 Labs: Laboratory Results - last 48 hr 02/22/22 12:50 Vitamin B12 611 Folate > 20.0 Medications Medications Current Medications Acetaminophen (Acetaminophen 325 Mg Tablet) 650 mg PO Q6H PRN PRN Reason: Headache/Pain Mild Scale (1-3) Al Hydroxide/Mg Hydroxide (Magnesium Hydrox/Alum Hydrox 30 Ml Oral.Susp) 30 ml PO Q6H PRN PRN Reason: Heartburn/Nausea Albuterol Sulfate (Albuterol Sulfate 90 Mcg 8 Gm Inhaler) 2 puff INHALE QID PRN PRN Reason: shortness of breath or wheezing Benztropine Mesylate (Benztropine Mesylate 0.5 Mg Tablet) 1.5 mg PO BID [facility] Last Admin: 02/25/22 08:56 Dose: 1.5 mg Calcium Carbonate/Cholecalciferol (Calcium + Vitamin D 250 Mg Tablet) 250 mg PO DAILY [facility] Last Admin: 02/25/22 08:56 Dose: 250 mg Chlorpromazine HCl (Chlorpromazine Hcl 10 Mg Tablet) 10 mg PO BID PRN PRN Reason: Psychosis Diphenhydramine HCl (Diphenhydramine Hcl 25 Mg Tablet) 25 mg PO DAILY PRN PRN Reason: DYSTONIA Hydroxyzine HCl (Hydroxyzine Hcl 25 Mg Tablet) 25 mg PO Q6H PRN PRN Reason: Anxiety Last Admin: 02/24/22 21:54 Dose: 25 mg Hydroxyzine HCl (Hydroxyzine Hcl 25 Mg Tablet) 25 mg PO TID PRN PRN Reason: ANXIETY/SLEEP Lamotrigine (Lamotrigine 25 Mg Tablet) 25 mg PO BEDTIME [facility] Last Admin: 02/24/22 21:54 Dose: 25 mg Lurasidone HCl (Lurasidone Hcl 80 Mg Tablet) 80 mg PO BEDTIME [facility] Last Admin: 02/24/22 21:54 Dose: 80 mg Magnesium Hydroxide (Milk Of Magnesia 30 Ml Oral.Susp) 30 ml PO DAILY PRN PRN Reason: Constipation Melatonin (Melatonin 3 Mg Tablet) 9 mg PO BEDTIME [facility] Last Admin: 02/24/22 21:54 Dose: 9 mg Multivitamins/Vitamin C (Multivitamin Tablet) 1 tab PO DAILY [facility] Last Admin: 02/25/22 08:56 Dose: 1 tab Nicotine Polacrilex (Nicotine Polacrilex 2 Mg Gum) 2 mg BUCCAL Q2H PRN PRN Reason: Nicotine Cravings Last Admin: 02/25/22 14:30 Dose: 2 mg Polyethylene Glycol (Polyethylene Glycol 3350 17 Gm Powd.Pack) 17 gm PO DAILY PRN PRN Reason: constipation Sertraline HCl (Sertraline Hcl 50 Mg Tablet) 50 mg PO DAILY [facility] Last Admin: 02/25/22 08:56 Dose: 50 mg Allergies Allergies Allergy/AdvReac Type Severity Reaction Status Date / Time risperidone [From Risperdal] Allergy Mild gain weight Verified 12/19/21 14:42 aripiprazole [Abilify] Allergy Unknown gain weight Verified 12/19/21 14:42 cariprazine [From Vraylar] AdvReac Verified 12/19/21 14:42 haloperidol [From Haldol] AdvReac DYSTONIA Verified 02/21/22 18:22 paliperidone AdvReac dystonia Verified 12/19/21 14:42 trazodone AdvReac DYSTONIA Verified 02/21/22 18:23 Assessment & Plan Assessment & Plan (1) Schizoaffective disorder, depressive type: Status: Acute Code(s): F25.1 - Schizoaffective disorder, depressive type Plan Patient with reported schizoaffective depressive ilness admitted with concerns regarding ability to care for self, paranoia, suicidal thoughts off medications for 2 weeks. - Admit for safety - Milieu therapy - DC planning Regarding medications will restart Latuda 80 mg, Zoloft 50 mg, trazodone 150 mg. Will restart Lamictal at 25 mg as it appears she has been off his for the best part of 2 weeks. Will also try to clarify Haldol adverse effect of dystonia in context of patient being discharged on same in September 2021. 02/23/2022: No changes to current regimen. Did clarify dystonic reactions in the past 02/24/2022: No changes to current regimen 02/25/22: Continue current regime. Team is attempting to obtain a copy of pt's shawn Arshad. I spent minutes with the patient and/or on the patient floor today, greater than?50% of which was spent counseling/coordinating care. Patient educated on: medication risk/benefits and therapeutic strategies Informed Consent: further education needed Reason for contiued inpatient stay Substantial Risk for: harm to self, inability to function and rapid decompensation
[2022-02-25 21:45] VITALS: BP 128/96; PULSE 85; TEMP 37.2; O2SAT 99
[2022-02-25] MEDS: lamoTRIgine 25 MG TABLET PO (22:31)
[2022-02-25] MEDS: Lurasidone HCl 80 MG TABLET PO (22:32)
[2022-02-25] MEDS: Melatonin 3 MG TABLET 9 MG PO (22:32)
[2022-02-26] MEDS: Benztropine Mesylate 0.5 MG TABLET 1.5 MG PO ×2 (08:56→21:50)
[2022-02-26] MEDS: Multivitamin TABLET 1 TAB PO (08:56)
[2022-02-26] MEDS: Calcium + Vitamin D 250 MG TABLET PO (08:56)
[2022-02-26] MEDS: Sertraline HCL 50 MG TABLET PO (08:57)
[2022-02-26] MEDS: Nicotine Polacrilex 2 MG GUM BUCCAL ×5 (09:00→22:16)
--- NOTE | 2022-02-26 15:59 | P.PNPSI_ITS ---
Subjective Subjective Date of Service: 02/26/22 Reason For Visit: Psychosis Subjective Notes: Conditional Voluntary Healthcare Proxy: No Guardianship: Yes Medical Problems Affecting Mental Status: No Interim History: Responding to internal stimuli, pacing, self-dialoguing, not fully attentive to environment. Denies sx of concern. Continues to express anger with mom. Team was able to locate shawn Kurtz guardianship. 1. Haldol 2 mg bid, up to 20 mg daily (hx dystonia) 2. Latuda 20 mg hs, up to 160 mg daily 3. Olanzapine 3.75 mg HS, up to 40 mg daily 4. Prolixin up to 20 mg daily Medication Compliance: Yes Side effects from medications: No Attending Groups: No Review of Systems Acute medical concerns: No Medical Review of Systems: unchanged Review of Systems Reports behavioral changes Psychiatric: Reports anxiety, Reports behavioral changes, Reports depression, Reports difficulty concentrating, Reports auditory hallucinations, Reports hopelessness, Reports irritability, Reports anhedonia, Reports mood swings, Reports paranoia, Reports visual hallucinations, Reports hallucinations, Reports homicidal ideation (denies) and Reports suicidal ideation (denies) Mental Status Exam Mental Status Exam Patient Appearance: Appropriate Patient Orientation: Person, Place and Time Level of Consciousness: Alert Patient Behavior: Talkative, Cooperative, Anxious, Fearful, Resistive to Care (yes, however at the same time she asks for help in sx mgt.), Fatigued, Distractible, Isolative, Good Eye Contact and Impulsive (left the unit to the hallway when the diet cart was coming in. Returned when asked, no issues) Mood Description: Withdrawn, Depressed, Anxious, Angry and Apprehensive Affect Description: Flat Patient Cognition Impaired: Yes Ability to Follow Directions: Good Speech Pattern: Spontaneous Speech Memory Description: Episodic Impaired Hallucinations: Auditory and Visual Delusions: Being Controlled, Paranoid Ideation and Present Perceptual Disturbances: Depersonalization and Derealization Thought Process: Illogical, Distracted and Rumination Thought Content: positive for [place], positive for Obsessional Thoughts, positive for Circumstantial, positive for Perseveration, positive for Preoccupation, positive for Thought Blocking and positive for Suicidal Ideation (denies) Depressive Symptoms: Increased Anxiety, Increased Irritability and Low Self Esteem Abnormal Motor Activity Signs and Symptoms: Restlessness Judgement: Poor Diagnostics Vital Signs (24Hr): Vital Signs - 24 hr 02/25/22 21:45 Temperature 98.9 F Pulse Rate 85 Blood Pressure 128/96 H Pulse Oximetry 99 Oxygen Delivery Method Room Air BMI result Body Mass Index 20.5 Labs Results: 02/21/22 16:26 02/21/22 16:26 Labs: Laboratory Results - last 48 hr 02/22/22 12:50 Vitamin B12 611 Folate > 20.0 Medications Medications Current Medications Acetaminophen (Acetaminophen 325 Mg Tablet) 650 mg PO Q6H PRN PRN Reason: Headache/Pain Mild Scale (1-3) Al Hydroxide/Mg Hydroxide (Magnesium Hydrox/Alum Hydrox 30 Ml Oral.Susp) 30 ml PO Q6H PRN PRN Reason: Heartburn/Nausea Albuterol Sulfate (Albuterol Sulfate 90 Mcg 8 Gm Inhaler) 2 puff INHALE QID PRN PRN Reason: shortness of breath or wheezing Benztropine Mesylate (Benztropine Mesylate 0.5 Mg Tablet) 1.5 mg PO BID [facility] Last Admin: 02/26/22 08:56 Dose: 1.5 mg Calcium Carbonate/Cholecalciferol (Calcium + Vitamin D 250 Mg Tablet) 250 mg PO DAILY [facility] Last Admin: 02/26/22 08:56 Dose: 250 mg Chlorpromazine HCl (Chlorpromazine Hcl 10 Mg Tablet) 10 mg PO BID PRN PRN Reason: Psychosis Diphenhydramine HCl (Diphenhydramine Hcl 25 Mg Tablet) 25 mg PO DAILY PRN PRN Reason: DYSTONIA Hydroxyzine HCl (Hydroxyzine Hcl 25 Mg Tablet) 25 mg PO TID PRN PRN Reason: ANXIETY/SLEEP Lamotrigine (Lamotrigine 25 Mg Tablet) 25 mg PO BEDTIME [facility] Last Admin: 02/25/22 22:31 Dose: 25 mg Lurasidone HCl (Lurasidone Hcl 80 Mg Tablet) 80 mg PO BEDTIME [facility] Last Admin: 02/25/22 22:32 Dose: 80 mg Magnesium Hydroxide (Milk Of Magnesia 30 Ml Oral.Susp) 30 ml PO DAILY PRN PRN Reason: Constipation Melatonin (Melatonin 3 Mg Tablet) 9 mg PO BEDTIME [facility] Last Admin: 02/25/22 22:32 Dose: 9 mg Multivitamins/Vitamin C (Multivitamin Tablet) 1 tab PO DAILY [facility] Last Admin: 02/26/22 08:56 Dose: 1 tab Nicotine Polacrilex (Nicotine Polacrilex 2 Mg Gum) 2 mg BUCCAL Q2H PRN PRN Reason: Nicotine Cravings Last Admin: 02/26/22 13:22 Dose: 2 mg Polyethylene Glycol (Polyethylene Glycol 3350 17 Gm Powd.Pack) 17 gm PO DAILY PRN PRN Reason: constipation Sertraline HCl (Sertraline Hcl 50 Mg Tablet) 50 mg PO DAILY [facility] Last Admin: 02/26/22 08:57 Dose: 50 mg Allergies Allergies Allergy/AdvReac Type Severity Reaction Status Date / Time risperidone [From Risperdal] Allergy Mild gain weight Verified 12/19/21 14:42 aripiprazole [Abilify] Allergy Unknown gain weight Verified 12/19/21 14:42 cariprazine [From Vraylar] AdvReac Verified 12/19/21 14:42 haloperidol [From Haldol] AdvReac DYSTONIA Verified 02/21/22 18:22 paliperidone AdvReac dystonia Verified 12/19/21 14:42 trazodone AdvReac DYSTONIA Verified 02/21/22 18:23 Assessment & Plan Assessment & Plan (1) Schizoaffective disorder, depressive type: Status: Acute Code(s): F25.1 - Schizoaffective disorder, depressive type Plan Patient with reported schizoaffective depressive ilness admitted with concerns regarding ability to care for self, paranoia, suicidal thoughts off medications for 2 weeks. - Admit for safety - Milieu therapy - DC planning Regarding medications will restart Latuda 80 mg, Zoloft 50 mg, trazodone 150 mg. Will restart Lamictal at 25 mg as it appears she has been off his for the best part of 2 weeks. Will also try to clarify Haldol adverse effect of dystonia in context of patient being discharged on same in September 2021. 02/23/2022: No changes to current regimen. Did clarify dystonic reactions in the past 02/24/2022: No changes to current regimen 02/26/22: Meeting with mother and OP team 02/28/22. Continue current regime. I spent minutes with the patient and/or on the patient floor today, greater than?50% of which was spent counseling/coordinating care. Patient educated on: therapeutic strategies Informed Consent: further education needed Reason for contiued inpatient stay Substantial Risk for: harm to self, inability to function and rapid decompensation
[2022-02-26] MEDS: lamoTRIgine 25 MG TABLET PO (21:49)
[2022-02-26] MEDS: Lurasidone HCl 80 MG TABLET PO (21:50)
[2022-02-26] MEDS: Melatonin 3 MG TABLET 9 MG PO (21:50)
[2022-02-27 07:00] VITALS: BMI 22.6
[2022-02-27] MEDS: Benztropine Mesylate 0.5 MG TABLET 1.5 MG PO ×2 (08:04→20:43)
[2022-02-27] MEDS: Multivitamin TABLET 1 TAB PO (08:04)
[2022-02-27] MEDS: Sertraline HCL 50 MG TABLET PO (08:05)
[2022-02-27] MEDS: Calcium + Vitamin D 250 MG TABLET PO (08:05)
[2022-02-27 08:32] VITALS: BP 122/76; PULSE 76; RESP 16; TEMP 36; O2SAT 98
[2022-02-27] MEDS: Nicotine Polacrilex 2 MG GUM BUCCAL ×5 (11:21→21:09)
--- NOTE | 2022-02-27 15:07 | HO.PSYCHPN ---
Subjective Subjective Date of Service: 02/27/22 Reason For Visit: Psychosis Subjective Notes: Conditional Voluntary Healthcare Proxy: No Guardianship: Yes Medical Problems Affecting Mental Status: No Interim History: Team reports pt to be demanding-at one point asking to utilize her phone, then running off with it. Irritable, responding to internal stimuli, self-dialoguing and not participating in milieu. Latuda increased to 100 mg after evening meal. Medication Compliance: Yes Side effects from medications: No Attending Groups: No Review of Systems Acute medical concerns: No Medical Review of Systems: unchanged Review of Systems Reports behavioral changes and Reports confusion Psychiatric: Reports behavioral changes, Reports confusion, Reports irritability, Reports anhedonia, Reports mood swings and Reports paranoia Mental Status Exam Mental Status Exam Patient Appearance: Appropriate Patient Orientation: Person, Place and Time Level of Consciousness: Alert Patient Behavior: Talkative, Anxious, Fearful, Resistive to Care (yes, however at the same time she asks for help in sx mgt.), Fatigued, Distractible, Isolative and Good Eye Contact Mood Description: Withdrawn, Depressed, Anxious, Angry and Apprehensive Affect Description: Flat Patient Cognition Impaired: Yes Ability to Follow Directions: Good Speech Pattern: Spontaneous Speech Memory Description: Episodic Impaired Hallucinations: Auditory and Visual Delusions: Being Controlled, Paranoid Ideation and Present Perceptual Disturbances: Depersonalization and Derealization Thought Process: Illogical, Distracted and Rumination Thought Content: positive for [place], positive for Obsessional Thoughts, positive for Circumstantial, positive for Perseveration, positive for Preoccupation, positive for Thought Blocking and positive for Suicidal Ideation (denies) Depressive Symptoms: Increased Anxiety, Increased Irritability and Low Self Esteem Abnormal Motor Activity Signs and Symptoms: Restlessness Judgement: Poor Diagnostics Vital Signs (24Hr): Vital Signs - 24 hr 02/27/22 08:32 Temperature 96.8 F Pulse Rate 76 Respiratory Rate 16 Blood Pressure 122/76 Pulse Oximetry 98 Oxygen Delivery Method Room Air BMI result Body Mass Index 22.6 Labs Results: 02/21/22 16:26 02/21/22 16:26 Medications Medications Current Medications Acetaminophen (Acetaminophen 325 Mg Tablet) 650 mg PO Q6H PRN PRN Reason: Headache/Pain Mild Scale (1-3) Al Hydroxide/Mg Hydroxide (Magnesium Hydrox/Alum Hydrox 30 Ml Oral.Susp) 30 ml PO Q6H PRN PRN Reason: Heartburn/Nausea Albuterol Sulfate (Albuterol Sulfate 90 Mcg 8 Gm Inhaler) 2 puff INHALE QID PRN PRN Reason: shortness of breath or wheezing Benztropine Mesylate (Benztropine Mesylate 0.5 Mg Tablet) 1.5 mg PO BID [facility] Last Admin: 02/27/22 08:04 Dose: 1.5 mg Calcium Carbonate/Cholecalciferol (Calcium + Vitamin D 250 Mg Tablet) 250 mg PO DAILY [facility] Last Admin: 02/27/22 08:05 Dose: 250 mg Chlorpromazine HCl (Chlorpromazine Hcl 10 Mg Tablet) 10 mg PO BID PRN PRN Reason: Psychosis Diphenhydramine HCl (Diphenhydramine Hcl 25 Mg Tablet) 25 mg PO DAILY PRN PRN Reason: DYSTONIA Hydroxyzine HCl (Hydroxyzine Hcl 25 Mg Tablet) 25 mg PO TID PRN PRN Reason: ANXIETY/SLEEP Lamotrigine (Lamotrigine 25 Mg Tablet) 25 mg PO BEDTIME [facility] Last Admin: 02/26/22 21:49 Dose: 25 mg Lurasidone HCl (Lurasidone Hcl 20 Mg Tablet) 100 mg PO BEDTIME [facility] Magnesium Hydroxide (Milk Of Magnesia 30 Ml Oral.Susp) 30 ml PO DAILY PRN PRN Reason: Constipation Melatonin (Melatonin 3 Mg Tablet) 9 mg PO BEDTIME [facility] Last Admin: 02/26/22 21:50 Dose: 9 mg Multivitamins/Vitamin C (Multivitamin Tablet) 1 tab PO DAILY [facility] Last Admin: 02/27/22 08:04 Dose: 1 tab Nicotine Polacrilex (Nicotine Polacrilex 2 Mg Gum) 2 mg BUCCAL Q2H PRN PRN Reason: Nicotine Cravings Last Admin: 02/27/22 14:12 Dose: 2 mg Polyethylene Glycol (Polyethylene Glycol 3350 17 Gm Powd.Pack) 17 gm PO DAILY PRN PRN Reason: constipation Sertraline HCl (Sertraline Hcl 50 Mg Tablet) 50 mg PO DAILY [facility] Last Admin: 02/27/22 08:05 Dose: 50 mg Allergies Allergies Allergy/AdvReac Type Severity Reaction Status Date / Time risperidone [From Risperdal] Allergy Mild gain weight Verified 12/19/21 14:42 aripiprazole [Abilify] Allergy Unknown gain weight Verified 12/19/21 14:42 cariprazine [From Vraylar] AdvReac Verified 12/19/21 14:42 haloperidol [From Haldol] AdvReac DYSTONIA Verified 02/21/22 18:22 paliperidone AdvReac dystonia Verified 12/19/21 14:42 trazodone AdvReac DYSTONIA Verified 02/21/22 18:23 Assessment & Plan Assessment & Plan (1) Schizoaffective disorder, depressive type: Status: Acute Code(s): F25.1 - Schizoaffective disorder, depressive type Plan Patient with reported schizoaffective depressive ilness admitted with concerns regarding ability to care for self, paranoia, suicidal thoughts off medications for 2 weeks. - Admit for safety - Milieu therapy - DC planning Regarding medications will restart Latuda 80 mg, Zoloft 50 mg, trazodone 150 mg. Will restart Lamictal at 25 mg as it appears she has been off his for the best part of 2 weeks. Will also try to clarify Haldol adverse effect of dystonia in context of patient being discharged on same in September 2021. 02/23/2022: No changes to current regimen. Did clarify dystonic reactions in the past 02/24/2022: No changes to current regimen 02/26/22: Meeting with mother and OP team 02/28/22. Continue current regime. 02/27/22: Increase Latuda to 100 mg hs I spent minutes with the patient and/or on the patient floor today, greater than?50% of which was spent counseling/coordinating care. Patient educated on: therapeutic strategies Informed Consent: further education needed Reason for contiued inpatient stay Substantial Risk for: harm to self, inability to function and rapid decompensation
[2022-02-27 18:00] VITALS: BP 98/60; PULSE 92; RESP 17; TEMP 36.6; O2SAT 99
[2022-02-27] MEDS: Lurasidone HCl 20 MG TABLET 100 MG PO (20:44)
[2022-02-27] MEDS: Melatonin 3 MG TABLET 9 MG PO (20:46)
[2022-02-27] MEDS: lamoTRIgine 25 MG TABLET PO (20:47)
[2022-02-28 08:47] VITALS: BP 110/67; PULSE 69; RESP 16; O2SAT 98
[2022-02-28] MEDS: Calcium + Vitamin D 250 MG TABLET PO (08:51)
[2022-02-28] MEDS: Benztropine Mesylate 0.5 MG TABLET 1.5 MG PO (08:51)
[2022-02-28] MEDS: Sertraline HCL 50 MG TABLET PO (08:51)
[2022-02-28] MEDS: Multivitamin TABLET 1 TAB PO (08:51)
[2022-02-28] MEDS: Nicotine Polacrilex 2 MG GUM BUCCAL ×5 (08:57→23:08)
--- NOTE | 2022-02-28 15:08 | PC.NURSE ---
pt ate 2 bites of scrambled eggs for breakfast. Lunch tray appears untouched.
--- NOTE | 2022-02-28 15:28 | HO.PSYCHPN ---
Subjective Subjective Date of Service: 02/28/22 Reason For Visit: Psychosis Subjective Notes: Conditional Voluntary Healthcare Proxy: No Guardianship: Yes Medical Problems Affecting Mental Status: No Interim History: I am not taking any medications any more. Expressed anger with Luis A ferrer, citing that she does not need any medicine and will refuse from this point on. Reviewed treatment needed to manage symptoms. Pt precipitously left the meeting- this is not what I want to hear. Meeting with pt's mom, OP prescriber, senior care team, [facility]. All observe her decompensation, non compliance and cheeking of medications with resulting decline in functioning. Discussed potential for SCOTT, Clozapine, new Olanzapine product without weight gain-team reports pt discharged herself from her day program as she told them she had no interest-sx were increasing-paranoia, response to internal stimuli, exacerbation of PTSD sx. Will attempt to augment with Prolixin 1 mg daily. Mom will attempt to update Arshad with increase in choices. Medication Compliance: Yes Side effects from medications: No Attending Groups: No Review of Systems Acute medical concerns: No Medical Review of Systems: unchanged Review of Systems Reports behavioral changes Psychiatric: Reports behavioral changes, Reports difficulty concentrating, Reports irritability, Reports anhedonia, Reports mood swings and Reports paranoia Mental Status Exam Mental Status Exam Patient Appearance: Appropriate Patient Orientation: Person, Place and Time Level of Consciousness: Alert Patient Behavior: Talkative, Anxious, Fearful, Resistive to Care (yes, however at the same time she asks for help in sx mgt.), Fatigued, Distractible, Isolative and Good Eye Contact Mood Description: Withdrawn, Depressed, Anxious, Angry and Apprehensive Affect Description: Flat Patient Cognition Impaired: Yes Ability to Follow Directions: Good Speech Pattern: Spontaneous Speech Memory Description: Episodic Impaired Hallucinations: Auditory and Visual Delusions: Being Controlled, Paranoid Ideation and Present Perceptual Disturbances: Depersonalization and Derealization Thought Process: Illogical, Distracted and Rumination Thought Content: positive for [place], positive for Obsessional Thoughts, positive for Circumstantial, positive for Perseveration, positive for Preoccupation, positive for Thought Blocking and positive for Suicidal Ideation (denies) Depressive Symptoms: Increased Anxiety, Increased Irritability and Low Self Esteem Abnormal Motor Activity Signs and Symptoms: Restlessness Judgement: Poor Diagnostics Vital Signs (24Hr): Vital Signs - 24 hr 02/27/22 18:00 02/28/22 08:47 Temperature 98 F Pulse Rate 92 69 Respiratory Rate 17 16 Blood Pressure 98/60 110/67 Pulse Oximetry 99 98 Oxygen Delivery Method Room Air Room Air BMI result Body Mass Index 22.6 Labs Results: 02/21/22 16:26 02/21/22 16:26 Medications Medications Current Medications Acetaminophen (Acetaminophen 325 Mg Tablet) 650 mg PO Q6H PRN PRN Reason: Headache/Pain Mild Scale (1-3) Al Hydroxide/Mg Hydroxide (Magnesium Hydrox/Alum Hydrox 30 Ml Oral.Susp) 30 ml PO Q6H PRN PRN Reason: Heartburn/Nausea Albuterol Sulfate (Albuterol Sulfate 90 Mcg 8 Gm Inhaler) 2 puff INHALE QID PRN PRN Reason: shortness of breath or wheezing Benztropine Mesylate (Benztropine Mesylate 0.5 Mg Tablet) 1.5 mg PO BID [facility] Last Admin: 02/28/22 08:51 Dose: 1.5 mg Calcium Carbonate/Cholecalciferol (Calcium + Vitamin D 250 Mg Tablet) 250 mg PO DAILY [facility] Last Admin: 02/28/22 08:51 Dose: 250 mg Chlorpromazine HCl (Chlorpromazine Hcl 10 Mg Tablet) 10 mg PO BID PRN PRN Reason: Psychosis Diphenhydramine HCl (Diphenhydramine Hcl 25 Mg Tablet) 25 mg PO DAILY PRN PRN Reason: DYSTONIA Hydroxyzine HCl (Hydroxyzine Hcl 25 Mg Tablet) 25 mg PO TID PRN PRN Reason: ANXIETY/SLEEP Lamotrigine (Lamotrigine 25 Mg Tablet) 25 mg PO BEDTIME [facility] Last Admin: 02/27/22 20:47 Dose: 25 mg Lurasidone HCl (Lurasidone Hcl 20 Mg Tablet) 100 mg PO BEDTIME [facility] Last Admin: 02/27/22 20:44 Dose: 100 mg Magnesium Hydroxide (Milk Of Magnesia 30 Ml Oral.Susp) 30 ml PO DAILY PRN PRN Reason: Constipation Melatonin (Melatonin 3 Mg Tablet) 9 mg PO BEDTIME [facility] Last Admin: 02/27/22 20:46 Dose: 9 mg Multivitamins/Vitamin C (Multivitamin Tablet) 1 tab PO DAILY [facility] Last Admin: 02/28/22 08:51 Dose: 1 tab Nicotine Polacrilex (Nicotine Polacrilex 2 Mg Gum) 2 mg BUCCAL Q2H PRN PRN Reason: Nicotine Cravings Last Admin: 02/28/22 14:38 Dose: 2 mg Polyethylene Glycol (Polyethylene Glycol 3350 17 Gm Powd.Pack) 17 gm PO DAILY PRN PRN Reason: constipation Sertraline HCl (Sertraline Hcl 50 Mg Tablet) 50 mg PO DAILY [facility] Last Admin: 02/28/22 08:51 Dose: 50 mg Allergies Allergies Allergy/AdvReac Type Severity Reaction Status Date / Time risperidone [From Risperdal] Allergy Mild gain weight Verified 12/19/21 14:42 aripiprazole [Abilify] Allergy Unknown gain weight Verified 12/19/21 14:42 cariprazine [From Vraylar] AdvReac Verified 12/19/21 14:42 haloperidol [From Haldol] AdvReac DYSTONIA Verified 02/21/22 18:22 paliperidone AdvReac dystonia Verified 12/19/21 14:42 trazodone AdvReac DYSTONIA Verified 02/21/22 18:23 Assessment & Plan Assessment & Plan (1) Schizoaffective disorder, depressive type: Status: Acute Code(s): F25.1 - Schizoaffective disorder, depressive type Plan Patient with reported schizoaffective depressive ilness admitted with concerns regarding ability to care for self, paranoia, suicidal thoughts off medications for 2 weeks. - Admit for safety - Milieu therapy - DC planning Regarding medications will restart Latuda 80 mg, Zoloft 50 mg, trazodone 150 mg. Will restart Lamictal at 25 mg as it appears she has been off his for the best part of 2 weeks. Will also try to clarify Haldol adverse effect of dystonia in context of patient being discharged on same in September 2021. 02/23/2022: No changes to current regimen. Did clarify dystonic reactions in the past 02/24/2022: No changes to current regimen 02/26/22: Meeting with mother and OP team 02/28/22. Continue current regime. 02/28/22: Prolixin 1 mg daily to augment Latuda May need Section 02/28 if pt begins to refuse medications. I spent minutes with the patient and/or on the patient floor today, greater than?50% of which was spent counseling/coordinating care. Patient educated on: therapeutic strategies Informed Consent: further education needed Reason for contiued inpatient stay Substantial Risk for: inability to function and rapid decompensation
[2022-03-01] MEDS: Nicotine Polacrilex 2 MG GUM BUCCAL ×5 (02:25→22:51)
[2022-03-01] MEDS: Acetaminophen 325 MG TABLET 650 MG PO (07:05)
[2022-03-01 08:25] VITALS: BP 128/92; PULSE 83; RESP 16; TEMP 37.1; O2SAT 99
[2022-03-01] MEDS: Calcium + Vitamin D 250 MG TABLET PO (08:25)
[2022-03-01] MEDS: Multivitamin TABLET 1 TAB PO (08:25)
[2022-03-01] MEDS: Benztropine Mesylate 0.5 MG TABLET 1.5 MG PO (08:25)
[2022-03-01] MEDS: fluPHENAZine HCl 1 MG TABLET PO (08:25)
[2022-03-01] MEDS: Sertraline HCL 50 MG TABLET PO (08:25)
--- NOTE | 2022-03-01 09:13 | HO.PSYCHPN ---
Subjective Subjective Date of Service: 03/01/22 Reason For Visit: Psychosis Interim History: Patient disorganized, laughing hysterically and internally preoccupied, talking to herself; difficult to engage. Said she would refuse medications; intermittent adherence such as refused Lamictal last night but took Prolixin this morning Mental Status Exam Mental Status Exam Patient Appearance: Appropriate Patient Orientation: Person, Place and Time Level of Consciousness: Alert Patient Behavior: Talkative, Anxious, Resistive to Care (yes, however at the same time she asks for help in sx mgt.), Distractible, Isolative, Impulsive and Poor Eye Contact Mood Description: Withdrawn, Depressed, Anxious, Elated and Apprehensive Affect Description: Labile Patient Cognition Impaired: Yes Ability to Follow Directions: Fair Speech Pattern: Spontaneous Speech Memory Description: Episodic Impaired Hallucinations: Auditory and Visual Delusions: Being Controlled, Paranoid Ideation and Present Perceptual Disturbances: Depersonalization and Derealization Thought Process: Illogical, Distracted and Rumination Thought Content: positive for [place], positive for Obsessional Thoughts, positive for Circumstantial, positive for Perseveration, positive for Preoccupation, positive for Thought Blocking and positive for Suicidal Ideation (denies) Depressive Symptoms: Increased Anxiety, Increased Irritability and Low Self Esteem Abnormal Motor Activity Signs and Symptoms: Restlessness Judgement: Poor Diagnostics Vital Signs (24Hr): Vital Signs - 24 hr 03/01/22 08:25 Temperature 98.7 F Pulse Rate 83 Respiratory Rate 16 Blood Pressure 128/92 H Pulse Oximetry 99 Oxygen Delivery Method Room Air BMI result Body Mass Index 22.6 Labs Results: 02/21/22 16:26 02/21/22 16:26 Medications Medications Current Medications Acetaminophen (Acetaminophen 325 Mg Tablet) 650 mg PO Q6H PRN PRN Reason: Headache/Pain Mild Scale (1-3) Last Admin: 03/01/22 07:05 Dose: 650 mg Al Hydroxide/Mg Hydroxide (Magnesium Hydrox/Alum Hydrox 30 Ml Oral.Susp) 30 ml PO Q6H PRN PRN Reason: Heartburn/Nausea Albuterol Sulfate (Albuterol Sulfate 90 Mcg 8 Gm Inhaler) 2 puff INHALE QID PRN PRN Reason: shortness of breath or wheezing Benztropine Mesylate (Benztropine Mesylate 0.5 Mg Tablet) 1.5 mg PO BID DUSTIN Last Admin: 03/01/22 08:25 Dose: 1.5 mg Calcium Carbonate/Cholecalciferol (Calcium + Vitamin D 250 Mg Tablet) 250 mg PO DAILY [facility] Last Admin: 03/01/22 08:25 Dose: 250 mg Diphenhydramine HCl (Diphenhydramine Hcl 25 Mg Tablet) 25 mg PO DAILY PRN PRN Reason: DYSTONIA Fluphenazine HCl (Fluphenazine Hcl 1 Mg Tablet) 1 mg PO DAILY [facility] Last Admin: 03/01/22 08:25 Dose: 1 mg Hydroxyzine HCl (Hydroxyzine Hcl 25 Mg Tablet) 25 mg PO TID PRN PRN Reason: ANXIETY/SLEEP Lamotrigine (Lamotrigine 25 Mg Tablet) 25 mg PO BEDTIME [facility] Last Admin: 02/28/22 21:22 Dose: Not Given Lurasidone HCl (Lurasidone Hcl 20 Mg Tablet) 100 mg PO BEDTIME [facility] Last Admin: 02/28/22 21:22 Dose: Not Given Magnesium Hydroxide (Milk Of Magnesia 30 Ml Oral.Susp) 30 ml PO DAILY PRN PRN Reason: Constipation Melatonin (Melatonin 3 Mg Tablet) 9 mg PO BEDTIME [facility] Last Admin: 02/28/22 21:22 Dose: Not Given Multivitamins/Vitamin C (Multivitamin Tablet) 1 tab PO DAILY [facility] Last Admin: 03/01/22 08:25 Dose: 1 tab Nicotine Polacrilex (Nicotine Polacrilex 2 Mg Gum) 2 mg BUCCAL Q2H PRN PRN Reason: Nicotine Cravings Last Admin: 03/01/22 06:17 Dose: 2 mg Polyethylene Glycol (Polyethylene Glycol 3350 17 Gm Powd.Pack) 17 gm PO DAILY PRN PRN Reason: constipation Sertraline HCl (Sertraline Hcl 50 Mg Tablet) 50 mg PO DAILY [facility] Last Admin: 03/01/22 08:25 Dose: 50 mg Allergies Allergies Allergy/AdvReac Type Severity Reaction Status Date / Time risperidone [From Risperdal] Allergy Mild gain weight Verified 12/19/21 14:42 aripiprazole [Abilify] Allergy Unknown gain weight Verified 12/19/21 14:42 cariprazine [From Vraylar] AdvReac Verified 12/19/21 14:42 haloperidol [From Haldol] AdvReac DYSTONIA Verified 02/21/22 18:22 paliperidone AdvReac dystonia Verified 12/19/21 14:42 trazodone AdvReac DYSTONIA Verified 02/21/22 18:23 Assessment & Plan Assessment & Plan (1) Schizoaffective disorder, depressive type: Status: Acute Code(s): F25.1 - Schizoaffective disorder, depressive type Plan Patient with reported schizoaffective depressive ilness admitted with concerns regarding ability to care for self, paranoia, suicidal thoughts off medications for 2 weeks. - Admit for safety - Milieu therapy - DC planning Regarding medications will restart Latuda 80 mg, Zoloft 50 mg, trazodone 150 mg. Will restart Lamictal at 25 mg as it appears she has been off his for the best part of 2 weeks. Will also try to clarify Haldol adverse effect of dystonia in context of patient being discharged on same in September 2021. 02/23/2022: No changes to current regimen. Did clarify dystonic reactions in the past 02/24/2022: No changes to current regimen 02/26/22: Meeting with mother and OP team 02/28/22. Continue current regime. 02/28/22: Prolixin 1 mg daily to augment Latuda May need Section 02/28 if pt begins to refuse medications. 03/01/22 no changes to medication regimen I spent minutes with the patient and/or on the patient floor today, greater than?50% of which was spent counseling/coordinating care. Patient educated on: diagnosis Informed Consent: does not understand Reason for contiued inpatient stay Substantial Risk for: inability to function
[2022-03-01] MEDS: hydrOXYzine HCL 25 MG TABLET PO (13:22)
--- NOTE | 2022-03-02 15:28 | HO.PSYCHPN ---
Subjective Subjective Date of Service: 03/02/22 Reason For Visit: Psychosis Interim History: Staff reports that patient is not eating and refused her medications. Upon inquiry patient denies that she is not eating in says she has eating some. She then says all I want to do is to get out of here and that they are given me more meds that I don't need. Pt denies AH. Patient asks for list of her medications which filing writer agrees to procure Mental Status Exam Mental Status Exam Patient Appearance: Appropriate Patient Orientation: Person, Place and Time Level of Consciousness: Alert Patient Behavior: Talkative, Anxious, Resistive to Care (yes, however at the same time she asks for help in sx mgt.), Distractible, Isolative, Impulsive and Poor Eye Contact Mood Description: Withdrawn, Depressed, Anxious, Elated and Apprehensive Affect Description: Labile Patient Cognition Impaired: Yes Ability to Follow Directions: Fair Speech Pattern: Spontaneous Speech Memory Description: Episodic Impaired Hallucinations: Auditory and Visual Delusions: Being Controlled, Paranoid Ideation and Present Perceptual Disturbances: Depersonalization and Derealization Thought Process: Illogical, Distracted and Rumination Thought Content: positive for [place], positive for Obsessional Thoughts, positive for Circumstantial, positive for Perseveration, positive for Preoccupation, positive for Thought Blocking and positive for Suicidal Ideation (denies) Depressive Symptoms: Increased Anxiety, Increased Irritability and Low Self Esteem Abnormal Motor Activity Signs and Symptoms: Restlessness Judgement: Poor Diagnostics Vital Signs (24Hr): BMI result Body Mass Index 22.6 Labs Results: 02/21/22 16:26 02/21/22 16:26 Medications Medications Current Medications Acetaminophen (Acetaminophen 325 Mg Tablet) 650 mg PO Q6H PRN PRN Reason: Headache/Pain Mild Scale (1-3) Last Admin: 03/01/22 07:05 Dose: 650 mg Al Hydroxide/Mg Hydroxide (Magnesium Hydrox/Alum Hydrox 30 Ml Oral.Susp) 30 ml PO Q6H PRN PRN Reason: Heartburn/Nausea Albuterol Sulfate (Albuterol Sulfate 90 Mcg 8 Gm Inhaler) 2 puff INHALE QID PRN PRN Reason: shortness of breath or wheezing Benztropine Mesylate (Benztropine Mesylate 0.5 Mg Tablet) 1.5 mg PO BID DUSTIN Last Admin: 03/02/22 09:03 Dose: Not Given Calcium Carbonate/Cholecalciferol (Calcium + Vitamin D 250 Mg Tablet) 250 mg PO DAILY [facility] 234 BEDS AT [facility] Last Admin: 03/02/22 09:03 Dose: Not Given Diphenhydramine HCl (Diphenhydramine Hcl 25 Mg Tablet) 25 mg PO DAILY PRN PRN Reason: DYSTONIA Fluphenazine HCl (Fluphenazine Hcl 1 Mg Tablet) 1 mg PO DAILY [facility]S [facility]CLUDE 234 BEDS AT [facility] Last Admin: 03/02/22 09:03 Dose: Not Given Hydroxyzine HCl (Hydroxyzine Hcl 25 Mg Tablet) 25 mg PO TID PRN PRN Reason: ANXIETY/SLEEP Last Admin: 03/01/22 13:22 Dose: 25 mg Lamotrigine (Lamotrigine 25 Mg Tablet) 25 mg PO BEDTIME COUNTS INCLUDE 234 BEDS AT [facility] Last Admin: 03/01/22 22:08 Dose: Not Given Lurasidone HCl (Lurasidone Hcl 20 Mg Tablet) 100 mg PO BEDTIME COUNTS INCLUDE 234 BEDS AT [facility] Last Admin: 03/01/22 22:08 Dose: Not Given Magnesium Hydroxide (Milk Of Magnesia 30 Ml Oral.Susp) 30 ml PO DAILY PRN PRN Reason: Constipation Melatonin (Melatonin 3 Mg Tablet) 9 mg PO BEDTIME [facility]S INCLUDE 234 BEDS AT [facility] Last Admin: 03/01/22 22:09 Dose: Not Given Multivitamins/Vitamin C (Multivitamin Tablet) 1 tab PO DAILY [facility]S [facility]CLUDE 234 BEDS AT [facility] Last Admin: 03/02/22 09:03 Dose: Not Given Nicotine Polacrilex (Nicotine Polacrilex 2 Mg Gum) 2 mg BUCCAL Q2H PRN PRN Reason: Nicotine Cravings Last Admin: 03/01/22 22:51 Dose: 2 mg Polyethylene Glycol (Polyethylene Glycol 3350 17 Gm Powd.Pack) 17 gm PO DAILY PRN PRN Reason: constipation Sertraline HCl (Sertraline Hcl 50 Mg Tablet) 50 mg PO DAILY [facility]S [facility]CLUDE 234 BEDS AT [facility] Last Admin: 03/02/22 09:03 Dose: Not Given Allergies Allergies Allergy/AdvReac Type Severity Reaction Status Date / Time risperidone [From Risperdal] Allergy Mild gain weight Verified 12/19/21 14:42 aripiprazole [Abilify] Allergy Unknown gain weight Verified 12/19/21 14:42 cariprazine [From Vraylar] AdvReac Verified 12/19/21 14:42 haloperidol [From Haldol] AdvReac DYSTONIA Verified 02/21/22 18:22 paliperidone AdvReac dystonia Verified 12/19/21 14:42 trazodone AdvReac DYSTONIA Verified 02/21/22 18:23 Assessment & Plan Assessment & Plan (1) Schizoaffective disorder, depressive type: Status: Acute Code(s): F25.1 - Schizoaffective disorder, depressive type Plan Patient with reported schizoaffective depressive ilness admitted with concerns regarding ability to care for self, paranoia, suicidal thoughts off medications for 2 weeks. - Admit for safety - Milieu therapy - DC planning Regarding medications will restart Latuda 80 mg, Zoloft 50 mg, trazodone 150 mg. Will restart Lamictal at 25 mg as it appears she has been off his for the best part of 2 weeks. Will also try to clarify Haldol adverse effect of dystonia in context of patient being discharged on same in September 2021. 02/23/2022: No changes to current regimen. Did clarify dystonic reactions in the past 02/24/2022: No changes to current regimen 02/26/22: Meeting with mother and OP team 02/28/22. Continue current regime. 02/28/22: Prolixin 1 mg daily to augment Latuda May need Section 02/28 if pt begins to refuse medications. 03/01/22 no changes to medication regimen 03/02/22 refused to take medications; not eating. Patient's roommate reported that in the past few days when she was given medications she would go to her room and throw it up. I spent minutes with the patient and/or on the patient floor today, greater than?50% of which was spent counseling/coordinating care. Patient educated on: diagnosis and medication risk/benefits Informed Consent: does not understand and further education needed Reason for contiued inpatient stay Substantial Risk for: rapid decompensation
[2022-03-02] MEDS: Nicotine Polacrilex 2 MG GUM BUCCAL (19:59)
[2022-03-03] MEDS: Nicotine Polacrilex 2 MG GUM BUCCAL ×4 (13:41→23:14)
--- NOTE | 2022-03-03 15:51 | P.PNPSI_ITS ---
Subjective Subjective Date of Service: 03/03/22 Reason For Visit: Psychosis Subjective Notes: Conditional Voluntary Healthcare Proxy: No Guardianship: Yes Medical Problems Affecting Mental Status: No Interim History: Desi states she will refuse to take medications. She denies having illness. She has poor [id number] reports when she was taking medications she was vomiting them. Discussion with mother/team on 02/28/22 to amend Hermes's guardianship which is being worked on. Pt states I am fine, all healed, ready to leave. Medication Compliance: No Side effects from medications: No Attending Groups: No Review of Systems Acute medical concerns: No Medical Review of Systems: unchanged Review of Systems Reports behavioral changes Psychiatric: Reports behavioral changes, Reports change in appetite, Reports auditory hallucinations (denies, but appears to respond), Reports irritability, Reports anhedonia, Reports mood swings, Reports paranoia and Reports suicidal ideation (denies) Mental Status Exam Mental Status Exam Patient Appearance: Appropriate Patient Orientation: Person, Place, Time and Situation Level of Consciousness: Alert Patient Behavior: Appropriate, Guarded, Talkative, Cooperative, Suspicious, Resistive to Care, Distractible and Good Eye Contact Mood Description: Apathetic, Suspicious, Withdrawn, Constricted, Hostile, Angry and Apprehensive Affect Description: Constricted Patient Cognition Impaired: Yes Ability to Follow Directions: Good Speech Pattern: Spontaneous Speech and Soft-Spoken Memory Description: Episodic Impaired Hallucinations: None (denies) and Auditory (appears to respond) Delusions: Paranoid Ideation and Present Perceptual Disturbances: Depersonalization and Derealization Thought Process: Illogical, Distracted, Rumination and Goal Oriented Thought Content: positive for [place], positive for Circumstantial, positive for Preoccupation and positive for Suicidal Ideation (denies) Depressive Symptoms: Diff. Making Decisions, Increased Irritability, Changes in Appetite, Loss of Int. in Activity, Isolating-Friends/Family, Thoughts of /Suicide (denies), Low Self Esteem and Loss of Energy Abnormal Motor Activity Signs and Symptoms: Agitation and Restlessness Judgement: Poor Diagnostics Vital Signs (24Hr): BMI result Body Mass Index 22.6 Labs Results: 02/21/22 16:26 02/21/22 16:26 Medications Medications Current Medications Acetaminophen (Acetaminophen 325 Mg Tablet) 650 mg PO Q6H PRN PRN Reason: Headache/Pain Mild Scale (1-3) Last Admin: 03/01/22 07:05 Dose: 650 mg Al Hydroxide/Mg Hydroxide (Magnesium Hydrox/Alum Hydrox 30 Ml Oral.Susp) 30 ml PO Q6H PRN PRN Reason: Heartburn/Nausea Albuterol Sulfate (Albuterol Sulfate 90 Mcg 8 Gm Inhaler) 2 puff INHALE QID PRN PRN Reason: shortness of breath or wheezing Benztropine Mesylate (Benztropine Mesylate 0.5 Mg Tablet) 1.5 mg PO BID [facility] Last Admin: 03/03/22 10:24 Dose: Not Given Calcium Carbonate/Cholecalciferol (Calcium + Vitamin D 250 Mg Tablet) 250 mg PO DAILY [facility] Last Admin: 03/03/22 10:24 Dose: Not Given Diphenhydramine HCl (Diphenhydramine Hcl 25 Mg Tablet) 25 mg PO DAILY PRN PRN Reason: DYSTONIA Fluphenazine HCl (Fluphenazine Hcl 1 Mg Tablet) 1 mg PO DAILY [facility] Last Admin: 03/03/22 10:24 Dose: Not Given Hydroxyzine HCl (Hydroxyzine Hcl 25 Mg Tablet) 25 mg PO TID PRN PRN Reason: ANXIETY/SLEEP Last Admin: 03/01/22 13:22 Dose: 25 mg Lamotrigine (Lamotrigine 25 Mg Tablet) 25 mg PO BEDTIME [facility] Last Admin: 03/02/22 22:14 Dose: Not Given Lurasidone HCl (Lurasidone Hcl 20 Mg Tablet) 100 mg PO BEDTIME [facility] Last Admin: 03/02/22 22:15 Dose: Not Given Magnesium Hydroxide (Milk Of Magnesia 30 Ml Oral.Susp) 30 ml PO DAILY PRN PRN Reason: Constipation Melatonin (Melatonin 3 Mg Tablet) 9 mg PO BEDTIME [facility] Last Admin: 03/02/22 22:15 Dose: Not Given Multivitamins/Vitamin C (Multivitamin Tablet) 1 tab PO DAILY [facility] Last Admin: 03/03/22 10:24 Dose: Not Given Nicotine Polacrilex (Nicotine Polacrilex 2 Mg Gum) 2 mg BUCCAL Q2H PRN PRN Reason: Nicotine Cravings Last Admin: 03/03/22 13:41 Dose: 2 mg Polyethylene Glycol (Polyethylene Glycol 3350 17 Gm Powd.Pack) 17 gm PO DAILY PRN PRN Reason: constipation Sertraline HCl (Sertraline Hcl 50 Mg Tablet) 50 mg PO DAILY [facility] Last Admin: 03/03/22 10:24 Dose: Not Given Allergies Allergies Allergy/AdvReac Type Severity Reaction Status Date / Time risperidone [From Risperdal] Allergy Mild gain weight Verified 12/19/21 14:42 aripiprazole [Abilify] Allergy Unknown gain weight Verified 12/19/21 14:42 cariprazine [From Vraylar] AdvReac Verified 12/19/21 14:42 haloperidol [From Haldol] AdvReac DYSTONIA Verified 02/21/22 18:22 paliperidone AdvReac dystonia Verified 12/19/21 14:42 trazodone AdvReac DYSTONIA Verified 02/21/22 18:23 Assessment & Plan Assessment & Plan (1) Schizoaffective disorder, depressive type: Status: Acute Code(s): F25.1 - Schizoaffective disorder, depressive type Plan Patient with reported schizoaffective depressive ilness admitted with concerns regarding ability to care for self, paranoia, suicidal thoughts off medications for 2 weeks. - Admit for safety - Milieu therapy - DC planning Regarding medications will restart Latuda 80 mg, Zoloft 50 mg, trazodone 150 mg. Will restart Lamictal at 25 mg as it appears she has been off his for the best part of 2 weeks. Will also try to clarify Haldol adverse effect of dystonia in context of patient being discharged on same in September 2021. 02/23/2022: No changes to current regimen. Did clarify dystonic reactions in the past 02/24/2022: No changes to current regimen 02/26/22: Meeting with mother and OP team 02/28/22. Continue current regime. 02/28/22: Prolixin 1 mg daily to augment Latuda May need Section 7/8 if pt begins to refuse medications. 03/01/22 no changes to medication regimen 03/02/22 refused to take medications; not eating. Patient's roommate reported that in the past few days when she was given medications she would go to her room and throw it up. 03/03/22 continues to refuse medications. Working on Hermes's amendment. Possible Section 7/8 request to continue treatment. I spent minutes with the patient and/or on the patient floor today, greater than?50% of which was spent counseling/coordinating care. Patient educated on: therapeutic strategies Informed Consent: does not understand Reason for contiued inpatient stay Substantial Risk for: harm to self, inability to function and rapid decompensation
[2022-03-03 18:00] VITALS: BP 106/97; PULSE 86; TEMP 37.1; O2SAT 99
--- NOTE | 2022-03-04 12:29 | P.PNPSI_ITS ---
Subjective Subjective Date of Service: 03/04/22 Reason For Visit: Psychosis Subjective Notes: Conditional Voluntary Healthcare Proxy: No Guardianship: Yes Medical Problems Affecting Mental Status: No Interim History: Completed Hermes's addendum, mother to review with OP team and present to the court. Discussed pt's medication non-compliance with her. Her perspective is that she is misdiagnosed, was misdiagnosed as she was using cocaine and cannabis-now that she is not using she is completely symptom free and not in need of medication. She is not willing at this point to hear any other pe rspective. Medication Compliance: No Side effects from medications: No Attending Groups: No Review of Systems Acute medical concerns: No Medical Review of Systems: unchanged Review of Systems Reports behavioral changes Psychiatric: Reports behavioral changes, Reports change in appetite, Reports auditory hallucinations (denies, but appears to respond), Reports irritability, Reports anhedonia, Reports mood swings, Reports paranoia and Reports suicidal ideation (denies) Mental Status Exam Mental Status Exam Patient Appearance: Fatigued, Disheveled and Unkempt Patient Orientation: Person, Place, Time and Situation Level of Consciousness: Alert Patient Behavior: Guarded, Talkative, Suspicious, Anxious, Resistive to Care, Avoidant, Fatigued, Distractible, Isolative and Good Eye Contact Mood Description: Labile Affect Description: Labile Patient Cognition Impaired: Yes Ability to Follow Directions: Fair Speech Pattern: Spontaneous Speech Memory Description: Episodic Impaired Hallucinations: None (denies) Delusions: Paranoid Ideation Perceptual Disturbances: Depersonalization and Derealization Thought Process: Illogical and Distracted Thought Content: positive for [place], positive for Circumstantial and positive for Suicidal Ideation (denies) Depressive Symptoms: Increased Irritability, Changes in Appetite, Loss of Int. in Activity, Feelings of Worthlessness, Hopelessness, Thoughts of /Suicide (denies) and Low Self Esteem Abnormal Motor Activity Signs and Symptoms: Agitation Judgement: Poor Diagnostics Vital Signs (24Hr): Vital Signs - 24 hr 03/03/22 18:00 Temperature 98.7 F Pulse Rate 86 Blood Pressure 106/97 H Pulse Oximetry 99 BMI result Body Mass Index 22.6 Labs Results: 02/21/22 16:26 02/21/22 16:26 Medications Medications Current Medications Acetaminophen (Acetaminophen 325 Mg Tablet) 650 mg PO Q6H PRN PRN Reason: Headache/Pain Mild Scale (1-3) Last Admin: 03/01/22 07:05 Dose: 650 mg Al Hydroxide/Mg Hydroxide (Magnesium Hydrox/Alum Hydrox 30 Ml Oral.Susp) 30 ml PO Q6H PRN PRN Reason: Heartburn/Nausea Albuterol Sulfate (Albuterol Sulfate 90 Mcg 8 Gm Inhaler) 2 puff INHALE QID PRN PRN Reason: shortness of breath or wheezing Benztropine Mesylate (Benztropine Mesylate 0.5 Mg Tablet) 1.5 mg PO BID [facility] Last Admin: 03/04/22 09:44 Dose: Not Given Calcium Carbonate/Cholecalciferol (Calcium + Vitamin D 250 Mg Tablet) 250 mg PO DAILY [facility] Last Admin: 03/04/22 09:45 Dose: Not Given Diphenhydramine HCl (Diphenhydramine Hcl 25 Mg Tablet) 25 mg PO DAILY PRN PRN Reason: DYSTONIA Fluphenazine HCl (Fluphenazine Hcl 1 Mg Tablet) 1 mg PO DAILY [facility] Last Admin: 03/04/22 09:48 Dose: Not Given Hydroxyzine HCl (Hydroxyzine Hcl 25 Mg Tablet) 25 mg PO TID PRN PRN Reason: ANXIETY/SLEEP Last Admin: 03/01/22 13:22 Dose: 25 mg Lamotrigine (Lamotrigine 25 Mg Tablet) 25 mg PO BEDTIME [facility] Last Admin: 03/03/22 19:13 Dose: Not Given Lurasidone HCl (Lurasidone Hcl 20 Mg Tablet) 100 mg PO BEDTIME [facility] Last Admin: 03/03/22 19:13 Dose: Not Given Magnesium Hydroxide (Milk Of Magnesia 30 Ml Oral.Susp) 30 ml PO DAILY PRN PRN Reason: Constipation Melatonin (Melatonin 3 Mg Tablet) 9 mg PO BEDTIME [facility] Last Admin: 03/03/22 19:13 Dose: Not Given Multivitamins/Vitamin C (Multivitamin Tablet) 1 tab PO DAILY [facility] Last Admin: 03/04/22 09:48 Dose: Not Given Nicotine Polacrilex (Nicotine Polacrilex 2 Mg Gum) 2 mg BUCCAL Q2H PRN PRN Reason: Nicotine Cravings Last Admin: 03/03/22 23:14 Dose: 2 mg Polyethylene Glycol (Polyethylene Glycol 3350 17 Gm Powd.Pack) 17 gm PO DAILY PRN PRN Reason: constipation Sertraline HCl (Sertraline Hcl 50 Mg Tablet) 50 mg PO DAILY [facility] Last Admin: 03/04/22 09:48 Dose: Not Given Allergies Allergies Allergy/AdvReac Type Severity Reaction Status Date / Time aripiprazole [Abilify] Allergy Unknown tongue Verified 03/04/22 10:00 swells and gain weight risperidone [From Risperdal] AdvReac Unknown gain Verified 03/04/22 10:00 weight, and slurred speech cariprazine [From Vraylar] AdvReac Verified 12/19/21 14:42 haloperidol [From Haldol] AdvReac DYSTONIA Verified 02/21/22 18:22 paliperidone AdvReac dystonia Verified 12/19/21 14:42 trazodone AdvReac DYSTONIA Verified 02/21/22 18:23 Assessment & Plan Assessment & Plan (1) Schizoaffective disorder, depressive type: Status: Acute Code(s): F25.1 - Schizoaffective disorder, depressive type Plan Patient with reported schizoaffective depressive ilness admitted with concerns regarding ability to care for self, paranoia, suicidal thoughts off medications for 2 weeks. - Admit for safety - Milieu therapy - DC planning Regarding medications will restart Latuda 80 mg, Zoloft 50 mg, trazodone 150 mg. Will restart Lamictal at 25 mg as it appears she has been off his for the best part of 2 weeks. Will also try to clarify Haldol adverse effect of dystonia in context of patient being discharged on same in September 2021. 02/23/2022: No changes to current regimen. Did clarify dystonic reactions in the past 02/24/2022: No changes to current regimen 02/26/22: Meeting with mother and OP team 02/28/22. Continue current regime. 02/28/22: Prolixin 1 mg daily to augment Latuda May need Section 02/28 if pt begins to refuse medications. 03/01/22 no changes to medication regimen 03/02/22 refused to take medications; not eating. Patient's roommate reported that in the past few days when she was given medications she would go to her room and throw it up. 03/03/22 Continues to refuse medications. Guardian, pt's mother prefers no IM meds unless absolutely needed. I spent minutes with the patient and/or on the patient floor today, greater than?50% of which was spent counseling/coordinating care. Patient educated on: therapeutic strategies Informed Consent: does not understand Reason for contiued inpatient stay Substantial Risk for: harm to self, inability to function and rapid decompensation
[2022-03-04 18:00] VITALS: BP 109/78; PULSE 98; RESP 16; TEMP 36.6; O2SAT 98
[2022-03-04] MEDS: Nicotine Polacrilex 2 MG GUM BUCCAL ×2 (19:00→22:11)
[2022-03-05 13:04] VITALS: BP 104/63; PULSE 74; TEMP 36.9
--- NOTE | 2022-03-05 13:14 | P.PNPSI_ITS ---
Subjective Subjective Date of Service: 03/05/22 Reason For Visit: Psychosis Subjective Notes: Conditional Voluntary Healthcare Proxy: No Guardianship: Yes Medical Problems Affecting Mental Status: No Interim History: Pt more agreeable to take medications, however, believes she does not need t hese-asks that Lamictal and Sertraline be discontinued. Agrees to Latuda 20 mg daily. Minimal intake-team reports eating sugar packets and creamers. Discussed with pt the need for nutrition consult so her food choices could be considered. She declines at this time. Medication Compliance: Intermittent Side effects from medications: Yes (feeling tired) Attending Groups: No Review of Systems Acute medical concerns: No Medical Review of Systems: unchanged Review of Systems Reports behavioral changes Psychiatric: Reports abnormal sleep pattern, Reports behavioral changes, Reports change in appetite, Reports depression, Reports difficulty concentrating, Reports hopelessness, Reports irritability, Reports anhedonia, Reports mood swings, Reports paranoia and Reports suicidal ideation (denies) Mental Status Exam Mental Status Exam Patient Appearance: Fatigued, Disheveled and Unkempt Patient Orientation: Person, Place, Time and Situation Level of Consciousness: Alert Patient Behavior: Guarded, Talkative, Suspicious, Anxious, Resistive to Care, Avoidant, Fatigued, Distractible, Isolative and Good Eye Contact Mood Description: Labile Affect Description: Labile Patient Cognition Impaired: Yes Ability to Follow Directions: Fair Speech Pattern: Spontaneous Speech Memory Description: Episodic Impaired Hallucinations: None (denies) Delusions: Paranoid Ideation Perceptual Disturbances: Depersonalization and Derealization Thought Process: Illogical and Distracted Thought Content: positive for [place], positive for Circumstantial and positive for Suicidal Ideation (denies) Depressive Symptoms: Increased Irritability, Changes in Appetite, Loss of Int. in Activity, Feelings of Worthlessness, Hopelessness, Thoughts of /Suicide (denies) and Low Self Esteem Abnormal Motor Activity Signs and Symptoms: Agitation Judgement: Poor Diagnostics Vital Signs (24Hr): Vital Signs - 24 hr 03/04/22 18:00 03/05/22 13:04 Temperature 97.9 F 98.4 F Pulse Rate 98 74 Respiratory Rate 16 Blood Pressure 109/78 104/63 Pulse Oximetry 98 Oxygen Delivery Method Room Air BMI result Body Mass Index 22.6 Labs Results: 02/21/22 16:26 02/21/22 16:26 Medications Medications Current Medications Acetaminophen (Acetaminophen 325 Mg Tablet) 650 mg PO Q6H PRN PRN Reason: Headache/Pain Mild Scale (1-3) Last Admin: 03/01/22 07:05 Dose: 650 mg Al Hydroxide/Mg Hydroxide (Magnesium Hydrox/Alum Hydrox 30 Ml Oral.Susp) 30 ml PO Q6H PRN PRN Reason: Heartburn/Nausea Albuterol Sulfate (Albuterol Sulfate 90 Mcg 8 Gm Inhaler) 2 puff INHALE QID PRN PRN Reason: shortness of breath or wheezing Benztropine Mesylate (Benztropine Mesylate 0.5 Mg Tablet) 1.5 mg PO BID [facility] Last Admin: 03/05/22 11:14 Dose: Not Given Calcium Carbonate/Cholecalciferol (Calcium + Vitamin D 250 Mg Tablet) 250 mg PO DAILY [facility] Last Admin: 03/05/22 11:14 Dose: Not Given Diphenhydramine HCl (Diphenhydramine Hcl 25 Mg Tablet) 25 mg PO DAILY PRN PRN Reason: DYSTONIA Hydroxyzine HCl (Hydroxyzine Hcl 25 Mg Tablet) 25 mg PO TID PRN PRN Reason: ANXIETY/SLEEP Last Admin: 03/01/22 13:22 Dose: 25 mg Lurasidone HCl (Lurasidone Hcl 20 Mg Tablet) 20 mg PO BEDTIME [facility] Magnesium Hydroxide (Milk Of Magnesia 30 Ml Oral.Susp) 30 ml PO DAILY PRN PRN Reason: Constipation Melatonin (Melatonin 3 Mg Tablet) 9 mg PO BEDTIME [facility] Last Admin: 03/04/22 23:05 Dose: Not Given Multivitamins/Vitamin C (Multivitamin Tablet) 1 tab PO DAILY [facility] Last Admin: 03/05/22 11:14 Dose: Not Given Nicotine Polacrilex (Nicotine Polacrilex 2 Mg Gum) 2 mg BUCCAL Q2H PRN PRN Reason: Nicotine Cravings Last Admin: 03/04/22 22:11 Dose: 2 mg Polyethylene Glycol (Polyethylene Glycol 3350 17 Gm Powd.Pack) 17 gm PO DAILY PRN PRN Reason: constipation Allergies Allergies Allergy/AdvReac Type Severity Reaction Status Date / Time aripiprazole [Abilify] Allergy Unknown tongue Verified 03/04/22 10:00 swells and gain weight risperidone [From Risperdal] AdvReac Unknown gain Verified 03/04/22 10:00 weight, and slurred speech cariprazine [From Vraylar] AdvReac Verified 12/19/21 14:42 haloperidol [From Haldol] AdvReac DYSTONIA Verified 02/21/22 18:22 paliperidone AdvReac dystonia Verified 12/19/21 14:42 trazodone AdvReac DYSTONIA Verified 02/21/22 18:23 Assessment & Plan Assessment & Plan (1) Schizoaffective disorder, depressive type: Status: Acute Code(s): F25.1 - Schizoaffective disorder, depressive type Plan Patient with reported schizoaffective depressive ilness admitted with concerns regarding ability to care for self, paranoia, suicidal thoughts off medications for 2 weeks. - Admit for safety - Milieu therapy - DC planning Regarding medications will restart Latuda 80 mg, Zoloft 50 mg, trazodone 150 mg. Will restart Lamictal at 25 mg as it appears she has been off his for the best part of 2 weeks. Will also try to clarify Haldol adverse effect of dystonia in context of patient being discharged on same in September 2021. 02/23/2022: No changes to current regimen. Did clarify dystonic reactions in the past 02/24/2022: No changes to current regimen 02/26/22: Meeting with mother and OP team 02/28/22. Continue current regime. 02/28/22: Prolixin 1 mg daily to augment Latuda May need Section 02/28 if pt begins to refuse medications. 03/01/22 no changes to medication regimen 03/02/22 refused to take medications; not eating. Patient's roommate reported that in the past few days when she was given medications she would go to her room and throw it up. 03/03/22 Continues to refuse medications. Guardian, pt's mother prefers no IM meds unless absolutely needed. 03/05/22 Pt agrees to Latuda 20 mg daily. Asks to discontinue Sertraline, Lamictal. Guardian prefers no IM meds. I spent minutes with the patient and/or on the patient floor today, greater than?50% of which was spent counseling/coordinating care. Patient educated on: medication risk/benefits and therapeutic strategies Guardian/Caregiver educated on: medication risk/benefits and therapeutic strategies Informed Consent: understands Reason for contiued inpatient stay Substantial Risk for: rapid decompensation
[2022-03-05] MEDS: Nicotine Polacrilex 2 MG GUM BUCCAL ×2 (15:25→23:14)
[2022-03-05 21:13] VITALS: BP 90/60; PULSE 94; TEMP 37
[2022-03-05] MEDS: Melatonin 3 MG TABLET 9 MG PO (23:14)
[2022-03-05] MEDS: Benztropine Mesylate 0.5 MG TABLET 1.5 MG PO (23:15)
[2022-03-05] MEDS: Lurasidone HCl 20 MG TABLET PO (23:19)
[2022-03-06] MEDS: Nicotine Polacrilex 2 MG GUM BUCCAL ×4 (01:17→21:07)
[2022-03-06] MEDS: Benztropine Mesylate 0.5 MG TABLET 1.5 MG PO ×2 (09:00→21:07)
[2022-03-06] MEDS: Calcium + Vitamin D 250 MG TABLET PO (09:00)
[2022-03-06] MEDS: Multivitamin TABLET 1 TAB PO (09:00)
--- NOTE | 2022-03-06 18:27 | P.PNPSI_ITS ---
Subjective Subjective Date of Service: 03/06/22 Reason For Visit: Psychosis Subjective Notes: Conditional Voluntary Healthcare Proxy: No Guardianship: Yes Medical Problems Affecting Mental Status: No Interim History: Isolative, angry, these meds make me sleep all of the time. Intake is poor. Appears depressed, irritable and withdrawn. Dismissive in discussion today. No milieu participation she reports. don't need it. Medication Compliance: Yes Side effects from medications: Yes (sedation she reports, ?depressive sx.) Attending Groups: No Review of Systems Acute medical concerns: No Medical Review of Systems: unchanged Review of Systems Reports behavioral changes Psychiatric: Reports abnormal sleep pattern, Reports behavioral changes, Reports change in appetite, Reports depression, Reports difficulty concentrating, Reports hopelessness, Reports irritability, Reports anhedonia, Reports mood swings, Reports paranoia and Reports suicidal ideation (denies) Mental Status Exam Mental Status Exam Patient Appearance: Fatigued, Disheveled and Unkempt Patient Orientation: Person, Place, Time and Situation Level of Consciousness: Alert Patient Behavior: Guarded, Talkative, Suspicious, Anxious, Resistive to Care, Avoidant, Fatigued, Distractible, Isolative and Good Eye Contact Mood Description: Labile Affect Description: Labile Patient Cognition Impaired: Yes Ability to Follow Directions: Fair Speech Pattern: Spontaneous Speech Memory Description: Episodic Impaired Hallucinations: None (denies) Delusions: Paranoid Ideation Perceptual Disturbances: Depersonalization and Derealization Thought Process: Illogical and Distracted Thought Content: positive for [place], positive for Circumstantial and positive for Suicidal Ideation (denies) Depressive Symptoms: Increased Irritability, Changes in Appetite, Loss of Int. in Activity, Feelings of Worthlessness, Hopelessness, Thoughts of /Suicide (denies) and Low Self Esteem Abnormal Motor Activity Signs and Symptoms: Agitation Judgement: Poor Diagnostics Vital Signs (24Hr): Vital Signs - 24 hr 03/05/22 21:13 Temperature 98.6 F Pulse Rate 94 Blood Pressure 90/60 BMI result Body Mass Index 22.6 Labs Results: 02/21/22 16:26 02/21/22 16:26 Medications Medications Current Medications Acetaminophen (Acetaminophen 325 Mg Tablet) 650 mg PO Q6H PRN PRN Reason: Headache/Pain Mild Scale (1-3) Last Admin: 03/01/22 07:05 Dose: 650 mg Al Hydroxide/Mg Hydroxide (Magnesium Hydrox/Alum Hydrox 30 Ml Oral.Susp) 30 ml PO Q6H PRN PRN Reason: Heartburn/Nausea Albuterol Sulfate (Albuterol Sulfate 90 Mcg 8 Gm Inhaler) 2 puff INHALE QID PRN PRN Reason: shortness of breath or wheezing Benztropine Mesylate (Benztropine Mesylate 0.5 Mg Tablet) 1.5 mg PO BID [facility] Last Admin: 03/06/22 09:00 Dose: 1.5 mg Calcium Carbonate/Cholecalciferol (Calcium + Vitamin D 250 Mg Tablet) 250 mg PO DAILY [facility] Last Admin: 03/06/22 09:00 Dose: 250 mg Diphenhydramine HCl (Diphenhydramine Hcl 25 Mg Tablet) 25 mg PO DAILY PRN PRN Reason: DYSTONIA Hydroxyzine HCl (Hydroxyzine Hcl 25 Mg Tablet) 25 mg PO TID PRN PRN Reason: ANXIETY/SLEEP Last Admin: 03/01/22 13:22 Dose: 25 mg Lurasidone HCl (Lurasidone Hcl 20 Mg Tablet) 20 mg PO BEDTIME [facility] Last Admin: 03/05/22 23:19 Dose: 20 mg Magnesium Hydroxide (Milk Of Magnesia 30 Ml Oral.Susp) 30 ml PO DAILY PRN PRN Reason: Constipation Melatonin (Melatonin 3 Mg Tablet) 9 mg PO BEDTIME [facility] Last Admin: 03/05/22 23:14 Dose: 9 mg Multivitamins/Vitamin C (Multivitamin Tablet) 1 tab PO DAILY [facility] Last Admin: 03/06/22 09:00 Dose: 1 tab Nicotine Polacrilex (Nicotine Polacrilex 2 Mg Gum) 2 mg BUCCAL Q2H PRN PRN Reason: Nicotine Cravings Last Admin: 03/06/22 01:17 Dose: 2 mg Polyethylene Glycol (Polyethylene Glycol 3350 17 Gm Powd.Pack) 17 gm PO DAILY PRN PRN Reason: constipation Allergies Allergies Allergy/AdvReac Type Severity Reaction Status Date / Time aripiprazole [Abilify] Allergy Unknown tongue Verified 03/04/22 10:00 swells and gain weight risperidone [From Risperdal] AdvReac Unknown gain Verified 03/04/22 10:00 weight, and slurred speech cariprazine [From Vraylar] AdvReac Verified 12/19/21 14:42 haloperidol [From Haldol] AdvReac DYSTONIA Verified 02/21/22 18:22 paliperidone AdvReac dystonia Verified 12/19/21 14:42 trazodone AdvReac DYSTONIA Verified 02/21/22 18:23 Assessment & Plan Assessment & Plan (1) Schizoaffective disorder, depressive type: Status: Acute Code(s): F25.1 - Schizoaffective disorder, depressive type Plan Patient with reported schizoaffective depressive ilness admitted with concerns regarding ability to care for self, paranoia, suicidal thoughts off medications for 2 weeks. - Admit for safety - Milieu therapy - DC planning Regarding medications will restart Latuda 80 mg, Zoloft 50 mg, trazodone 150 mg. Will restart Lamictal at 25 mg as it appears she has been off his for the best part of 2 weeks. Will also try to clarify Haldol adverse effect of dystonia in context of patient being discharged on same in September 2021. 02/23/2022: No changes to current regimen. Did clarify dystonic reactions in the past 02/24/2022: No changes to current regimen 02/26/22: Meeting with mother and OP team 02/28/22. Continue current regime. 02/28/22: Prolixin 1 mg daily to augment Latuda May need Section 02/28 if pt begins to refuse medications. 03/01/22 no changes to medication regimen 03/02/22 refused to take medications; not eating. Patient's roommate reported that in the past few days when she was given medications she would go to her room and throw it up. 03/03/22 Continues to refuse medications. Guardian, pt's mother prefers no IM meds unless absolutely needed. 03/05/22 Pt agrees to Latuda 20 mg daily. Asks to discontinue Sertraline, Lamictal. Guardian prefers no IM meds. 03/06/22 Continue to educate pt regarding treatment for illness. I spent minutes with the patient and/or on the patient floor today, greater than?50% of which was spent counseling/coordinating care. Patient educated on: diagnosis, medication risk/benefits and therapeutic strategies Informed Consent: further education needed Reason for contiued inpatient stay Substantial Risk for: inability to function and rapid decompensation
[2022-03-06] MEDS: Melatonin 3 MG TABLET 9 MG PO (21:07)
[2022-03-06] MEDS: Lurasidone HCl 20 MG TABLET PO (21:08)
[2022-03-07] MEDS: Nicotine Polacrilex 2 MG GUM BUCCAL ×4 (06:02→17:14)
[2022-03-07] MEDS: Calcium + Vitamin D 250 MG TABLET PO (08:50)
[2022-03-07] MEDS: Multivitamin TABLET 1 TAB PO (08:50)
[2022-03-07] MEDS: Benztropine Mesylate 0.5 MG TABLET 1.5 MG PO ×2 (08:51→21:27)
--- NOTE | 2022-03-07 13:54 | P.PNPSI_ITS ---
Subjective Subjective Date of Service: 03/07/22 Reason For Visit: Psychosis Subjective Notes: Conditional Voluntary Healthcare Proxy: No Guardianship: Yes Medical Problems Affecting Mental Status: No Interim History: Accepting Luis A More visable in milieu Continues to believe she has no illness-not wanting to discuss this today. Approaches tw when she has questions or needs- I don't need to process anything- I am OK. Has a area of rash, skin breakdown on her hand, between fingers-discussed cortisone cream-she agrees to trial. Medication Compliance: Yes Side effects from medications: No Attending Groups: Intermittent Review of Systems Acute medical concerns: No Medical Review of Systems: unchanged Review of Systems Psychiatric: Reports no additional psychiatric complaints Mental Status Exam Mental Status Exam Patient Appearance: Disheveled Patient Orientation: Person, Place, Time and Situation Level of Consciousness: Alert Patient Behavior: Guarded, Talkative, Suspicious, Anxious, Resistive to Care, Avoidant, Fatigued, Distractible, Isolative and Good Eye Contact Mood Description: Labile Affect Description: Labile Patient Cognition Impaired: Yes Ability to Follow Directions: Fair Speech Pattern: Spontaneous Speech Memory Description: Episodic Impaired Hallucinations: None (denies) Delusions: Paranoid Ideation Perceptual Disturbances: Depersonalization and Derealization Thought Process: Illogical and Distracted Thought Content: positive for [place], positive for Circumstantial and positive for Suicidal Ideation (denies) Depressive Symptoms: Increased Irritability, Changes in Appetite, Loss of Int. in Activity, Feelings of Worthlessness, Hopelessness, Thoughts of /Suicide (denies) and Low Self Esteem Abnormal Motor Activity Signs and Symptoms: Agitation Judgement: Poor Diagnostics Vital Signs (24Hr): BMI result Body Mass Index 22.6 Labs Results: 02/21/22 16:26 02/21/22 16:26 Medications Medications Current Medications Acetaminophen (Acetaminophen 325 Mg Tablet) 650 mg PO Q6H PRN PRN Reason: Headache/Pain Mild Scale (1-3) Last Admin: 03/01/22 07:05 Dose: 650 mg Al Hydroxide/Mg Hydroxide (Magnesium Hydrox/Alum Hydrox 30 Ml Oral.Susp) 30 ml PO Q6H PRN PRN Reason: Heartburn/Nausea Albuterol Sulfate (Albuterol Sulfate 90 Mcg 8 Gm Inhaler) 2 puff INHALE QID PRN PRN Reason: shortness of breath or wheezing Benztropine Mesylate (Benztropine Mesylate 0.5 Mg Tablet) 1.5 mg PO BID [facility] Last Admin: 03/07/22 08:51 Dose: 1.5 mg Calcium Carbonate/Cholecalciferol (Calcium + Vitamin D 250 Mg Tablet) 250 mg PO DAILY [facility] Last Admin: 03/07/22 08:50 Dose: 250 mg Diphenhydramine HCl (Diphenhydramine Hcl 25 Mg Tablet) 25 mg PO DAILY PRN PRN Reason: DYSTONIA Hydrocortisone (Hydrocortisone 1 % Cream 28.35 Gm Tube) 1 appl TOPICAL BID PRN; Protocol PRN Reason: skin breakdown between fingers Hydroxyzine HCl (Hydroxyzine Hcl 25 Mg Tablet) 25 mg PO TID PRN PRN Reason: ANXIETY/SLEEP Last Admin: 03/01/22 13:22 Dose: 25 mg Lurasidone HCl (Lurasidone Hcl 20 Mg Tablet) 20 mg PO BEDTIME [facility] Last Admin: 03/06/22 21:08 Dose: 20 mg Magnesium Hydroxide (Milk Of Magnesia 30 Ml Oral.Susp) 30 ml PO DAILY PRN PRN Reason: Constipation Melatonin (Melatonin 3 Mg Tablet) 9 mg PO BEDTIME [facility] Last Admin: 03/06/22 21:07 Dose: 9 mg Multivitamins/Vitamin C (Multivitamin Tablet) 1 tab PO DAILY [facility] Last Admin: 03/07/22 08:50 Dose: 1 tab Nicotine Polacrilex (Nicotine Polacrilex 2 Mg Gum) 2 mg BUCCAL Q2H PRN PRN Reason: Nicotine Cravings Last Admin: 03/07/22 11:26 Dose: 2 mg Polyethylene Glycol (Polyethylene Glycol 3350 17 Gm Powd.Pack) 17 gm PO DAILY PRN PRN Reason: constipation Allergies Allergies Allergy/AdvReac Type Severity Reaction Status Date / Time aripiprazole [Abilify] Allergy Unknown tongue Verified 03/04/22 10:00 swells and gain weight risperidone [From Risperdal] AdvReac Unknown gain Verified 03/04/22 10:00 weight, and slurred speech cariprazine [From Vraylar] AdvReac Verified 12/19/21 14:42 haloperidol [From Haldol] AdvReac DYSTONIA Verified 02/21/22 18:22 paliperidone AdvReac dystonia Verified 12/19/21 14:42 trazodone AdvReac DYSTONIA Verified 02/21/22 18:23 Assessment & Plan Assessment & Plan (1) Schizoaffective disorder, depressive type: Status: Acute Code(s): F25.1 - Schizoaffective disorder, depressive type Plan Patient with reported schizoaffective depressive ilness admitted with concerns regarding ability to care for self, paranoia, suicidal thoughts off medications for 2 weeks. - Admit for safety - Milieu therapy - DC planning Regarding medications will restart Latuda 80 mg, Zoloft 50 mg, trazodone 150 mg. Will restart Lamictal at 25 mg as it appears she has been off his for the best part of 2 weeks. Will also try to clarify Haldol adverse effect of dystonia in context of patient being discharged on same in September 2021. 02/23/2022: No changes to current regimen. Did clarify dystonic reactions in the past 02/24/2022: No changes to current regimen 02/26/22: Meeting with mother and OP team 02/28/22. Continue current regime. 02/28/22: Prolixin 1 mg daily to augment Latuda May need Section 02/28 if pt begins to refuse medications. 03/01/22 no changes to medication regimen 03/02/22 refused to take medications; not eating. Patient's roommate reported that in the past few days when she was given medications she would go to her room and throw it up. 03/03/22 Continues to refuse medications. Guardian, pt's mother prefers no IM meds unless absolutely needed. 03/05/22 Pt agrees to Latuda 20 mg daily. Asks to discontinue Sertraline, Lamictal. Guardian prefers no IM meds. 03/06/22 Continue to educate pt regarding treatment for illness. 03/07/22 Cortisone cream for rash on pt's finger. Continue Latuda. Educate, Support. I spent minutes with the patient and/or on the patient floor today, greater than?50% of which was spent counseling/coordinating care. Patient educated on: therapeutic strategies and medical condition Informed Consent: understands and further education needed Reason for contiued inpatient stay Substantial Risk for: inability to function and rapid decompensation
[2022-03-07 20:33] VITALS: BP 123/79; PULSE 69; TEMP 36.3
[2022-03-07] MEDS: Melatonin 3 MG TABLET 9 MG PO (21:27)
[2022-03-07] MEDS: Lurasidone HCl 20 MG TABLET PO (21:27)
[2022-03-07] MEDS: hydrOXYzine HCL 25 MG TABLET PO (23:50)
[2022-03-07] MEDS: diphenhydrAMINE HCL 25 MG TABLET PO (23:50)
--- NOTE | 2022-03-08 13:19 | HO.PSYCHPN ---
Subjective Subjective Date of Service: 03/08/22 Reason For Visit: Psychosis Interim History: Patient difficult to engage. She remains in her bed. Test Operator says sinai to which she responds I do not want any medication changes... Test Operator asks how she is doing today and refers to her tearfulness yesterday when sheet writer was in the room talking with her roommate. Patient's only response was everyone has good days and bad days. Then she will do over and conversation ceased. Nursing reports that this morning she took some medications but then appeared to have run into the bathroom to vomit. Test Operator discussed this with nursing and also put in a nursing communication to lock bathroom door prior to giving medication. Patient is eating about 10% of her food. Mental Status Exam Mental Status Exam Narrative: Pt is alert and oriented; behavior is not cooperative; patient is not in distress; dressed in casual attire with unkempt hair but adequate hygiene; mood is described as everyone has good days and bad days and affect blunted; eye contact minimal; Speech is normal rate, volume and prosody and not pressured; no psychomotor agitation/retardation present; thought process is goal directed; Thought content guarded; internally preoccupied; denies SI/HI. Denies AH but appears internally preoccupied, intermittently laughing to herself. Patients insight and judgment are impaired Diagnostics Vital Signs (24Hr): Vital Signs - 24 hr 03/07/22 20:33 Temperature 97.4 F Pulse Rate 69 Blood Pressure 123/79 BMI result Body Mass Index 22.6 Labs Results: 02/21/22 16:26 02/21/22 16:26 Medications Medications Current Medications Acetaminophen (Acetaminophen 325 Mg Tablet) 650 mg PO Q6H PRN PRN Reason: Headache/Pain Mild Scale (1-3) Last Admin: 03/01/22 07:05 Dose: 650 mg Al Hydroxide/Mg Hydroxide (Magnesium Hydrox/Alum Hydrox 30 Ml Oral.Susp) 30 ml PO Q6H PRN PRN Reason: Heartburn/Nausea Albuterol Sulfate (Albuterol Sulfate 90 Mcg 8 Gm Inhaler) 2 puff INHALE QID PRN PRN Reason: shortness of breath or wheezing Benztropine Mesylate (Benztropine Mesylate 0.5 Mg Tablet) 1.5 mg PO BID [facility] Last Admin: 07/16/22 11:09 Dose: Not Given Calcium Carbonate/Cholecalciferol (Calcium + Vitamin D 250 Mg Tablet) 250 mg PO DAILY [facility] Last Admin: 03/08/22 11:09 Dose: Not Given Diphenhydramine HCl (Diphenhydramine Hcl 25 Mg Tablet) 25 mg PO DAILY PRN PRN Reason: DYSTONIA Last Admin: 03/07/22 23:50 Dose: 25 mg Hydrocortisone (Hydrocortisone 1 % Cream 28.35 Gm Tube) 1 appl TOPICAL BID PRN; Protocol PRN Reason: skin breakdown between fingers Hydroxyzine HCl (Hydroxyzine Hcl 25 Mg Tablet) 25 mg PO TID PRN PRN Reason: ANXIETY/SLEEP Last Admin: 03/07/22 23:50 Dose: 25 mg Lurasidone HCl (Lurasidone Hcl 20 Mg Tablet) 20 mg PO BEDTIME [facility] Last Admin: 03/07/22 21:27 Dose: 20 mg Magnesium Hydroxide (Milk Of Magnesia 30 Ml Oral.Susp) 30 ml PO DAILY PRN PRN Reason: Constipation Melatonin (Melatonin 3 Mg Tablet) 9 mg PO BEDTIME [facility] Last Admin: 03/07/22 21:27 Dose: 9 mg Multivitamins/Vitamin C (Multivitamin Tablet) 1 tab PO DAILY [facility] Last Admin: 03/08/22 11:09 Dose: Not Given Nicotine Polacrilex (Nicotine Polacrilex 2 Mg Gum) 2 mg BUCCAL Q2H PRN PRN Reason: Nicotine Cravings Last Admin: 03/07/22 17:14 Dose: 2 mg Polyethylene Glycol (Polyethylene Glycol 3350 17 Gm Powd.Pack) 17 gm PO DAILY PRN PRN Reason: constipation Allergies Allergies Allergy/AdvReac Type Severity Reaction Status Date / Time aripiprazole [Abilify] Allergy Unknown tongue Verified 03/04/22 10:00 swells and gain weight risperidone [From Risperdal] AdvReac Unknown gain Verified 03/04/22 10:00 weight, and slurred speech cariprazine [From Vraylar] AdvReac Verified 12/19/21 14:42 haloperidol [From Haldol] AdvReac DYSTONIA Verified 02/21/22 18:22 paliperidone AdvReac dystonia Verified 12/19/21 14:42 trazodone AdvReac DYSTONIA Verified 02/21/22 18:23 Assessment & Plan Assessment & Plan (1) Schizoaffective disorder, depressive type: Status: Acute Code(s): F25.1 - Schizoaffective disorder, depressive type Plan Patient with reported schizoaffective depressive ilness admitted with concerns regarding ability to care for self, paranoia, suicidal thoughts off medications for 2 weeks. - Admit for safety - Milieu therapy - DC planning Regarding medications will restart Latuda 80 mg, Zoloft 50 mg, trazodone 150 mg. Will restart Lamictal at 25 mg as it appears she has been off his for the best part of 2 weeks. Will also try to clarify Haldol adverse effect of dystonia in context of patient being discharged on same in September 2021. 02/23/2022: No changes to current regimen. Did clarify dystonic reactions in the past 02/24/2022: No changes to current regimen 02/26/22: Meeting with mother and OP team 02/28/22. Continue current regime. 02/28/22: Prolixin 1 mg daily to augment Latuda May need Section 02/28 if pt begins to refuse medications. 03/01/22 no changes to medication regimen 03/02/22 refused to take medications; not eating. Patient's roommate reported that in the past few days when she was given medications she would go to her room and throw it up. 03/03/22 Continues to refuse medications. Guardian, pt's mother prefers no IM meds unless absolutely needed. 03/05/22 Pt agrees to Latuda 20 mg daily. Asks to discontinue Sertraline, Lamictal. Guardian prefers no IM meds. 03/06/22 Continue to educate pt regarding treatment for illness. 03/07/22 Cortisone cream for rash on pt's finger. Continue Latuda. Educate, Support. 03/08/22 guarded and difficult to engage; no changes to current treatment plan I spent minutes with the patient and/or on the patient floor today, greater than?50% of which was spent counseling/coordinating care. Patient educated on: therapeutic strategies Informed Consent: does not understand Reason for contiued inpatient stay Substantial Risk for: inability to function
[2022-03-08] MEDS: Benztropine Mesylate 0.5 MG TABLET 1.5 MG PO ×2 (13:33→20:32)
[2022-03-08] MEDS: Multivitamin TABLET 1 TAB PO (13:33)
[2022-03-08] MEDS: Nicotine Polacrilex 2 MG GUM BUCCAL (13:33)
[2022-03-08] MEDS: Calcium + Vitamin D 250 MG TABLET PO (13:33)
[2022-03-08 17:05] VITALS: BP 99/65; PULSE 75; RESP 18; TEMP 37.3; O2SAT 97
[2022-03-08] MEDS: Lurasidone HCl 20 MG TABLET PO (20:35)
[2022-03-08] MEDS: Melatonin 3 MG TABLET 9 MG PO (20:35)
[2022-03-09 06:00] VITALS: BP 112/78; PULSE 91; TEMP 36.8; O2SAT 98
[2022-03-09] MEDS: Nicotine Polacrilex 2 MG GUM BUCCAL ×2 (06:10→22:15)
[2022-03-09] MEDS: Benztropine Mesylate 0.5 MG TABLET 1.5 MG PO ×2 (10:15→21:31)
[2022-03-09] MEDS: Calcium + Vitamin D 250 MG TABLET PO (10:16)
[2022-03-09] MEDS: Multivitamin TABLET 1 TAB PO (10:16)
--- NOTE | 2022-03-09 12:10 | P.PNPSI_ITS ---
Subjective Subjective Date of Service: 03/09/22 Reason For Visit: Psychosis Interim History: Patient a little brighter and more engageable. She said she did not sleep last night and needs some medication help for insomnia. She agrees to low-dose trazodone saying a higher dose makes her overly tired the next day. Patient said that she is taking her Latuda which appears to be the case. Patient also asks about medication for a ADD. She says she is very distracted and has a hard time reading, focusing and paying attention to things. Her roommate was started on a trial of stimulant medication for ADHD to good effect and patient is curious if Adderall can help her as well. She agrees to discuss it with primary provider tomorrow. She denies any AVH; denies any SI Mental Status Exam Mental Status Exam Narrative: Pt is alert and oriented; behavior is cooperative; patient is not in distress; dressed in casual attire with unkempt hair but adequate hygiene; mood is described as good and affect warmer, more naturally expressive; eye contact adequate; Speech is normal rate, volume and prosody and not pressured; no psychomotor agitation/retardation present; thought process is goal directed; Thought content guarded; intermittently internally preoccupied; denies SI/HI. Denies AH but appears internally preoccupied, intermittently laughing to herself. Patients insight and judgment are impaired Diagnostics Vital Signs (24Hr): Vital Signs - 24 hr 03/08/22 17:05 03/09/22 06:00 Temperature 99.1 F 98.3 F Pulse Rate 75 91 Respiratory Rate 18 Blood Pressure 99/65 112/78 Pulse Oximetry 97 98 Oxygen Delivery Method Room Air Room Air BMI result Body Mass Index 22.6 Labs Results: 02/21/22 16:26 02/21/22 16:26 Medications Medications Current Medications Acetaminophen (Acetaminophen 325 Mg Tablet) 650 mg PO Q6H PRN PRN Reason: Headache/Pain Mild Scale (1-3) Last Admin: 03/01/22 07:05 Dose: 650 mg Al Hydroxide/Mg Hydroxide (Magnesium Hydrox/Alum Hydrox 30 Ml Oral.Susp) 30 ml PO Q6H PRN PRN Reason: Heartburn/Nausea Albuterol Sulfate (Albuterol Sulfate 90 Mcg 8 Gm Inhaler) 2 puff INHALE QID PRN PRN Reason: shortness of breath or wheezing Benztropine Mesylate (Benztropine Mesylate 0.5 Mg Tablet) 1.5 mg PO BID [facility] Last Admin: 03/09/22 10:15 Dose: 1.5 mg Calcium Carbonate/Cholecalciferol (Calcium + Vitamin D 250 Mg Tablet) 250 mg PO DAILY [facility] Last Admin: 03/09/22 10:16 Dose: 250 mg Diphenhydramine HCl (Diphenhydramine Hcl 25 Mg Tablet) 25 mg PO DAILY PRN PRN Reason: DYSTONIA Last Admin: 03/07/22 23:50 Dose: 25 mg Hydrocortisone (Hydrocortisone 1 % Cream 28.35 Gm Tube) 1 appl TOPICAL BID PRN; Protocol PRN Reason: skin breakdown between fingers Hydroxyzine HCl (Hydroxyzine Hcl 25 Mg Tablet) 25 mg PO TID PRN PRN Reason: ANXIETY/SLEEP Last Admin: 03/07/22 23:50 Dose: 25 mg Lurasidone HCl (Lurasidone Hcl 20 Mg Tablet) 20 mg PO BEDTIME [facility] Last Admin: 03/08/22 20:35 Dose: 20 mg Magnesium Hydroxide (Milk Of Magnesia 30 Ml Oral.Susp) 30 ml PO DAILY PRN PRN Reason: Constipation Melatonin (Melatonin 3 Mg Tablet) 9 mg PO BEDTIME [facility] Last Admin: 03/08/22 20:35 Dose: 9 mg Multivitamins/Vitamin C (Multivitamin Tablet) 1 tab PO DAILY [facility] Last Admin: 03/09/22 10:16 Dose: 1 tab Nicotine Polacrilex (Nicotine Polacrilex 2 Mg Gum) 2 mg BUCCAL Q2H PRN PRN Reason: Nicotine Cravings Last Admin: 03/09/22 06:10 Dose: 2 mg Polyethylene Glycol (Polyethylene Glycol 3350 17 Gm Powd.Pack) 17 gm PO DAILY PRN PRN Reason: constipation Allergies Allergies Allergy/AdvReac Type Severity Reaction Status Date / Time aripiprazole [Abilify] Allergy Unknown tongue Verified 03/04/22 10:00 swells and gain weight risperidone [From Risperdal] AdvReac Unknown gain Verified 03/04/22 10:00 weight, and slurred speech cariprazine [From Vraylar] AdvReac Verified 12/19/21 14:42 haloperidol [From Haldol] AdvReac DYSTONIA Verified 02/21/22 18:22 paliperidone AdvReac dystonia Verified 12/19/21 14:42 trazodone AdvReac DYSTONIA Verified 02/21/22 18:23 Assessment & Plan Assessment & Plan (1) Schizoaffective disorder, depressive type: Status: Acute Code(s): F25.1 - Schizoaffective disorder, depressive type Plan Patient with reported schizoaffective depressive ilness admitted with concerns regarding ability to care for self, paranoia, suicidal thoughts off medications for 2 weeks. - Admit for safety - Milieu therapy - DC planning Regarding medications will restart Latuda 80 mg, Zoloft 50 mg, trazodone 150 mg. Will restart Lamictal at 25 mg as it appears she has been off his for the best part of 2 weeks. Will also try to clarify Haldol adverse effect of dystonia in context of patient being discharged on same in September 2021. 02/23/2022: No changes to current regimen. Did clarify dystonic reactions in the past 02/24/2022: No changes to current regimen 02/26/22: Meeting with mother and OP team 02/28/22. Continue current regime. 02/28/22: Prolixin 1 mg daily to augment Latuda May need Section 02/28 if pt begins to refuse medications. 03/01/22 no changes to medication regimen 03/02/22 refused to take medications; not eating. Patient's roommate reported that in the past few days when she was given medications she would go to her room and throw it up. 03/03/22 Continues to refuse medications. Guardian, pt's mother prefers no IM meds unless absolutely needed. 03/05/22 Pt agrees to Latuda 20 mg daily. Asks to discontinue Sertraline, Lamictal. Guardian prefers no IM meds. 03/06/22 Continue to educate pt regarding treatment for illness. 03/07/22 Cortisone cream for rash on pt's finger. Continue Latuda. Educate, Support. 03/08/22 guarded and difficult to engage; no changes to current treatment plan 03/09/22 START Trazodone 25mg for insomnia Wants to discuss Adderall for concentration. no other changes to current treatment plan I spent minutes with the patient and/or on the patient floor today, greater than?50% of which was spent counseling/coordinating care. Patient educated on: medication risk/benefits Informed Consent: further education needed Reason for contiued inpatient stay Substantial Risk for: inability to function
[2022-03-09 18:00] VITALS: BP 134/83; PULSE 78; RESP 18; TEMP 37; O2SAT 99
[2022-03-09] MEDS: Melatonin 3 MG TABLET 9 MG PO (21:30)
[2022-03-09] MEDS: Lurasidone HCl 20 MG TABLET PO (21:31)
[2022-03-09] MEDS: traZODone HCL 25 MG HALFTAB PO (21:31)
[2022-03-10] MEDS: Nicotine Polacrilex 2 MG GUM BUCCAL ×3 (05:01→18:53)
[2022-03-10] MEDS: Calcium + Vitamin D 250 MG TABLET PO (09:14)
[2022-03-10] MEDS: Multivitamin TABLET 1 TAB PO (09:14)
[2022-03-10] MEDS: Benztropine Mesylate 0.5 MG TABLET 1.5 MG PO ×2 (09:14→22:26)
--- NOTE | 2022-03-10 13:14 | P.PNPSI_ITS ---
Subjective Subjective Date of Service: 03/10/22 Reason For Visit: Psychosis Subjective Notes: Conditional Voluntary Healthcare Proxy: No Guardianship: Yes Medical Problems Affecting Mental Status: No Interim History: Team reports pt to be labile, responding to internal stimuli, angry, negative, with periods of crying, withdrawal from milieu and irritability. Responding to internal stimuli, hygiene is poor, not showering. Focused on room-mates treatment. Expressed anger with tw-my room-mate has a good doctor. She gets Adderall, all I get is Latuda. Discussed treatment planning and focus of Hermes's monitor. Pt not wanting to discuss this. Reminded pt that court date is 03/25/22 and she could review this with the legal team at that time. Medication Compliance: Yes Side effects from medications: No Attending Groups: No Review of Systems Acute medical concerns: No Medical Review of Systems: unchanged Review of Systems Psychiatric: Reports no additional psychiatric complaints Mental Status Exam Mental Status Exam Patient Appearance: Fatigued, Disheveled and Unkempt Patient Orientation: Person, Place, Time and Situation Level of Consciousness: Alert Patient Behavior: Guarded, Suspicious, Asleep, Belligerent, Anxious, Fearful, Re sistive to Care, Avoidant, Fatigued, Distractible, Isolative and Good Eye Contact Mood Description: Apathetic, Suspicious, Withdrawn, Depressed, Hostile and Angry Affect Description: Suspicious, Withdrawn, Labile and Angry Patient Cognition Impaired: Yes Ability to Follow Directions: Fair Speech Pattern: Spontaneous Speech and Soft-Spoken Memory Description: Episodic Impaired Hallucinations: None (pt denies-team reports observations of response to internal stimuli.) Delusions: Paranoid Ideation Perceptual Disturbances: Depersonalization, Derealization and Hallucinations Thought Process: Rumination and Evasive Thought Content: positive for Perseveration, positive for Poverty of Content, positive for Preoccupation, positive for Evasive, positive for Suicidal Ideation (denies) and positive for Homicidal Ideation (denies) Depressive Symptoms: Increased Irritability, Crying Spells, Sleeping More Than Usual, Loss of Int. in Activity, Feelings of Worthlessness, Hopelessness, Isolating-Friends/Family, Unhappiness, Increased Fatigue, Low Self Esteem, Loss of Energy and Difficulty Concentrating Abnormal Motor Activity Signs and Symptoms: Agitation and Restlessness Judgement: Poor Diagnostics Vital Signs (24Hr): Vital Signs - 24 hr 03/09/22 18:00 Temperature 98.6 F Pulse Rate 78 Respiratory Rate 18 Blood Pressure 134/83 Pulse Oximetry 99 Oxygen Delivery Method Room Air BMI result Body Mass Index 22.6 Labs Results: 02/21/22 16:26 02/21/22 16:26 Medications Medications Current Medications Acetaminophen (Acetaminophen 325 Mg Tablet) 650 mg PO Q6H PRN PRN Reason: Headache/Pain Mild Scale (1-3) Last Admin: 03/01/22 07:05 Dose: 650 mg Al Hydroxide/Mg Hydroxide (Magnesium Hydrox/Alum Hydrox 30 Ml Oral.Susp) 30 ml PO Q6H PRN PRN Reason: Heartburn/Nausea Albuterol Sulfate (Albuterol Sulfate 90 Mcg 8 Gm Inhaler) 2 puff INHALE QID PRN PRN Reason: shortness of breath or wheezing Benztropine Mesylate (Benztropine Mesylate 0.5 Mg Tablet) 1.5 mg PO BID [facility] Last Admin: 03/10/22 09:14 Dose: 1.5 mg Calcium Carbonate/Cholecalciferol (Calcium + Vitamin D 250 Mg Tablet) 250 mg PO DAILY [facility] Last Admin: 03/10/22 09:14 Dose: 250 mg Diphenhydramine HCl (Diphenhydramine Hcl 25 Mg Tablet) 25 mg PO DAILY PRN PRN Reason: DYSTONIA Last Admin: 03/07/22 23:50 Dose: 25 mg Hydrocortisone (Hydrocortisone 1 % Cream 28.35 Gm Tube) 1 appl TOPICAL BID PRN; Protocol PRN Reason: skin breakdown between fingers Hydroxyzine HCl (Hydroxyzine Hcl 25 Mg Tablet) 25 mg PO TID PRN PRN Reason: ANXIETY/SLEEP Last Admin: 03/07/22 23:50 Dose: 25 mg Lurasidone HCl (Lurasidone Hcl 20 Mg Tablet) 20 mg PO BEDTIME [facility] Last Admin: 03/09/22 21:31 Dose: 20 mg Magnesium Hydroxide (Milk Of Magnesia 30 Ml Oral.Susp) 30 ml PO DAILY PRN PRN Reason: Constipation Melatonin (Melatonin 3 Mg Tablet) 9 mg PO BEDTIME [facility] Last Admin: 03/09/22 21:30 Dose: 9 mg Multivitamins/Vitamin C (Multivitamin Tablet) 1 tab PO DAILY [facility] Last Admin: 03/10/22 09:14 Dose: 1 tab Nicotine Polacrilex (Nicotine Polacrilex 2 Mg Gum) 2 mg BUCCAL Q2H PRN PRN Reason: Nicotine Cravings Last Admin: 03/10/22 09:14 Dose: 2 mg Polyethylene Glycol (Polyethylene Glycol 3350 17 Gm Powd.Pack) 17 gm PO DAILY PRN PRN Reason: constipation Trazodone HCl (Trazodone Hcl 25 Mg Halftab) 25 mg PO BEDTIME [facility] Last Admin: 03/09/22 21:31 Dose: 25 mg Allergies Allergies Allergy/AdvReac Type Severity Reaction Status Date / Time aripiprazole [Abilify] Allergy Unknown tongue Verified 03/04/22 10:00 swells and gain weight risperidone [From Risperdal] AdvReac Unknown gain Verified 03/04/22 10:00 weight, and slurred speech cariprazine [From Vraylar] AdvReac Verified 12/19/21 14:42 haloperidol [From Haldol] AdvReac DYSTONIA Verified 02/21/22 18:22 paliperidone AdvReac dystonia Verified 12/19/21 14:42 trazodone AdvReac DYSTONIA Verified 02/21/22 18:23 Assessment & Plan Assessment & Plan (1) Schizoaffective disorder, depressive type: Status: Acute Code(s): F25.1 - Schizoaffective disorder, depressive type Plan Patient with reported schizoaffective depressive ilness admitted with concerns regarding ability to care for self, paranoia, suicidal thoughts off medications for 2 weeks. - Admit for safety - Milieu therapy - DC planning Regarding medications will restart Latuda 80 mg, Zoloft 50 mg, trazodone 150 mg. Will restart Lamictal at 25 mg as it appears she has been off his for the best part of 2 weeks. Will also try to clarify Haldol adverse effect of dystonia in context of patient being discharged on same in September 2021. 02/23/2022: No changes to current regimen. Did clarify dystonic reactions in the past 02/24/2022: No changes to current regimen 02/26/22: Meeting with mother and OP team 02/28/22. Continue current regime. 02/28/22: Prolixin 1 mg daily to augment Latuda May need Section 02/28 if pt begins to refuse medications. 03/01/22 no changes to medication regimen 03/02/22 refused to take medications; not eating. Patient's roommate reported that in the past few days when she was given medications she would go to her room and throw it up. 03/03/22 Continues to refuse medications. Guardian, pt's mother prefers no IM meds unless absolutely needed. 03/05/22 Pt agrees to Latuda 20 mg daily. Asks to discontinue Sertraline, Lamictal. Guardian prefers no IM meds. 03/06/22 Continue to educate pt regarding treatment for illness. 03/07/22 Cortisone cream for rash on pt's finger. Continue Latuda. Educate, Support. 03/08/22 guarded and difficult to engage; no changes to current treatment plan 03/09/22 START Trazodone 25mg for insomnia Wants to discuss Adderall for concentration. no other changes to current treatment plan 03/10/22 Continue current regime. Pt asking for adderall. Given her refusal of her baseline regime and her hx of cocaine abuse, will hold on adderall at this time. Court 03/25/22. I spent minutes with the patient and/or on the patient floor today, greater than?50% of which was spent counseling/coordinating care. Patient educated on: medication risk/benefits and therapeutic strategies Informed Consent: does not understand Reason for contiued inpatient stay Substantial Risk for: rapid decompensation
[2022-03-10 22:00] VITALS: BP 109/62; PULSE 105; TEMP 36.3; O2SAT 98
[2022-03-10] MEDS: traZODone HCL 25 MG HALFTAB PO (22:26)
[2022-03-10] MEDS: Melatonin 3 MG TABLET 9 MG PO (22:26)
[2022-03-10] MEDS: Lurasidone HCl 20 MG TABLET PO (22:27)
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
[2022-03-11] MEDS: Nicotine Polacrilex 2 MG GUM BUCCAL ×3 (14:26→22:52)
[2022-03-11 18:00] VITALS: BP 110/68; PULSE 100; RESP 20; TEMP 36.4; O2SAT 97
[2022-03-11] MEDS: Melatonin 3 MG TABLET 9 MG PO (20:41)
[2022-03-11] MEDS: Lurasidone HCl 20 MG TABLET PO (20:41)
[2022-03-11] MEDS: Benztropine Mesylate 0.5 MG TABLET 1.5 MG PO (20:42)
[2022-03-12] MEDS: Nicotine Polacrilex 2 MG GUM BUCCAL ×4 (11:44→21:10)
--- NOTE | 2022-03-12 16:07 | P.PNPSI_ITS ---
Subjective Subjective Date of Service: 03/12/22 Reason For Visit: Psychosis Subjective Notes: Conditional Voluntary Healthcare Proxy: No Guardianship: Yes Medical Problems Affecting Mental Status: No Interim History: Desi continues to be opposed to treatment. She is taking Latuda 20 mg per [facility], reporting it makes her feel amotivated and tired. She is more visable and social with peers in the milieu-with some provocative sx of interaction observed by team. Update given to mom, Samina, who plans to meet with pt's jail to discuss return. Pt's perspective is that there is no problem- I had symptoms because I was using cocaine (Mom reports pt has been using cocaine regularly at the jail). Discussed and wrote a behavioral plan of care for full milieu participation, attention to ADL's so we can move forward on discharge. Pt agrees. She plans to testify in her court hearing on 03/25 to ask that guardianship be terminated, I can manage myself and make my own choices. Medication Compliance: Yes Side effects from medications: Yes (amotivation and feeling tired) Attending Groups: Intermittent Review of Systems Acute medical concerns: No Medical Review of Systems: unchanged Review of Systems Psychiatric: Reports no additional psychiatric complaints Mental Status Exam Mental Status Exam Patient Appearance: Fatigued, Disheveled and Unkempt Patient Orientation: Person, Place, Time and Situation Level of Consciousness: Alert Patient Behavior: Guarded, Suspicious, Asleep, Belligerent, Anxious, Fearful, Resistive to Care, Avoidant, Fatigued, Distractible, Isolative and Good Eye Contact Mood Description: Apathetic, Suspicious, Withdrawn, Depressed, Hostile and Angry Affect Description: Suspicious, Withdrawn, Labile and Angry Patient Cognition Impaired: Yes Ability to Follow Directions: Fair Speech Pattern: Spontaneous Speech and Soft-Spoken Memory Description: Episodic Impaired Hallucinations: None (pt denies-team reports observations of response to internal stimuli.) Delusions: Paranoid Ideation Perceptual Disturbances: Depersonalization, Derealization and Hallucinations Thought Process: Rumination and Evasive Thought Content: positive for Perseveration, positive for Poverty of Content, positive for Preoccupation, positive for Evasive, positive for Suicidal Ideation (denies) and positive for Homicidal Ideation (denies) Depressive Symptoms: Increased Irritability, Crying Spells, Sleeping More Than Usual, Loss of Int. in Activity, Feelings of Worthlessness, Hopelessness, Isolating-Friends/Family, Unhappiness, Increased Fatigue, Low Self Esteem, Loss of Energy and Difficulty Concentrating Abnormal Motor Activity Signs and Symptoms: Agitation and Restlessness Judgement: Poor Diagnostics Vital Signs (24Hr): Vital Signs - 24 hr 03/11/22 18:00 Temperature 97.6 F Pulse Rate 100 Respiratory Rate 20 Blood Pressure 110/68 Pulse Oximetry 97 Oxygen Delivery Method Room Air BMI result Body Mass Index 22.6 Labs Results: 02/21/22 16:26 02/21/22 16:26 Medications Medications Current Medications Acetaminophen (Acetaminophen 325 Mg Tablet) 650 mg PO Q6H PRN PRN Reason: Headache/Pain Mild Scale (1-3) Last Admin: 03/01/22 07:05 Dose: 650 mg Al Hydroxide/Mg Hydroxide (Magnesium Hydrox/Alum Hydrox 30 Ml Oral.Susp) 30 ml PO Q6H PRN PRN Reason: Heartburn/Nausea Albuterol Sulfate (Albuterol Sulfate 90 Mcg 8 Gm Inhaler) 2 puff INHALE QID PRN PRN Reason: shortness of breath or wheezing Benztropine Mesylate (Benztropine Mesylate 0.5 Mg Tablet) 1.5 mg PO BID [facility] Last Admin: 03/12/22 12:35 Dose: Not Given Calcium Carbonate/Cholecalciferol (Calcium + Vitamin D 250 Mg Tablet) 250 mg PO DAILY [facility] Last Admin: 03/12/22 12:35 Dose: Not Given Diphenhydramine HCl (Diphenhydramine Hcl 25 Mg Tablet) 25 mg PO DAILY PRN PRN Reason: DYSTONIA Last Admin: 03/07/22 23:50 Dose: 25 mg Hydrocortisone (Hydrocortisone 1 % Cream 28.35 Gm Tube) 1 appl TOPICAL BID PRN; Protocol PRN Reason: skin breakdown between fingers Hydroxyzine HCl (Hydroxyzine Hcl 25 Mg Tablet) 25 mg PO TID PRN PRN Reason: ANXIETY/SLEEP Last Admin: 03/07/22 23:50 Dose: 25 mg Lurasidone HCl (Lurasidone Hcl 20 Mg Tablet) 20 mg PO BEDTIME [facility] Last Admin: 03/11/22 20:41 Dose: 20 mg Magnesium Hydroxide (Milk Of Magnesia 30 Ml Oral.Susp) 30 ml PO DAILY PRN PRN Reason: Constipation Melatonin (Melatonin 3 Mg Tablet) 9 mg PO BEDTIME [facility] Last Admin: 03/11/22 20:41 Dose: 9 mg Multivitamins/Vitamin C (Multivitamin Tablet) 1 tab PO DAILY [facility] Last Admin: 03/12/22 12:35 Dose: Not Given Nicotine Polacrilex (Nicotine Polacrilex 2 Mg Gum) 2 mg BUCCAL Q2H PRN PRN Reason: Nicotine Cravings Last Admin: 03/12/22 15:07 Dose: 2 mg Olanzapine (Olanzapine 10 Mg Tablet) 10 mg PO BID PRN PRN Reason: psychotic agitation Polyethylene Glycol (Polyethylene Glycol 3350 17 Gm Powd.Pack) 17 gm PO DAILY PRN PRN Reason: constipation Trazodone HCl (Trazodone Hcl 25 Mg Halftab) 25 mg PO BEDTIME [facility] Last Admin: 03/11/22 23:33 Dose: Not Given Allergies Allergies Allergy/AdvReac Type Severity Reaction Status Date / Time aripiprazole [Abilify] Allergy Unknown tongue Verified 03/04/22 10:00 swells and gain weight risperidone [From Risperdal] AdvReac Unknown gain Verified 03/04/22 10:00 weight, and slurred speech cariprazine [From Vraylar] AdvReac Verified 12/19/21 14:42 haloperidol [From Haldol] AdvReac DYSTONIA Verified 02/21/22 18:22 paliperidone AdvReac dystonia Verified 12/19/21 14:42 trazodone AdvReac DYSTONIA Verified 02/21/22 18:23 Assessment & Plan Assessment & Plan (1) Schizoaffective disorder, depressive type: Status: Acute Code(s): F25.1 - Schizoaffective disorder, depressive type Plan Patient with reported schizoaffective depressive ilness admitted with concerns regarding ability to care for self, paranoia, suicidal thoughts off medications for 2 weeks. - Admit for safety - Milieu therapy - DC planning Regarding medications will restart Latuda 80 mg, Zoloft 50 mg, trazodone 150 mg. Will restart Lamictal at 25 mg as it appears she has been off his for the best part of 2 weeks. Will also try to clarify Haldol adverse effect of dystonia in context of patient being discharged on same in September 2021. 02/23/2022: No changes to current regimen. Did clarify dystonic reactions in the past 02/24/2022: No changes to current regimen 02/26/22: Meeting with mother and OP team 02/28/22. Continue current regime. 02/28/22: Prolixin 1 mg daily to augment Latuda May need Section 02/28 if pt begins to refuse medications. 03/01/22 no changes to medication regimen 03/02/22 refused to take medications; not eating. Patient's roommate reported that in the past few days when she was given medications she would go to her room and throw it up. 03/03/22 Continues to refuse medications. Guardian, pt's mother prefers no IM meds unless absolutely needed. 03/05/22 Pt agrees to Latuda 20 mg daily. Asks to discontinue Sertraline, Lamictal. Guardian prefers no IM meds. 03/06/22 Continue to educate pt regarding treatment for illness. 03/07/22 Cortisone cream for rash on pt's finger. Continue Latuda. Educate, Support. 03/08/22 guarded and difficult to engage; no changes to current treatment plan 03/09/22 START Trazodone 25mg for insomnia Wants to discuss Adderall for concentration. no other changes to current treatment plan 03/11/22 Olanzapine 10 mg bid prn psychotic agitation. 03/12/22 Discharge planning. Pt not wanting treatment, denies SI, psychotic sx are present but pt is not in immediate danger. Pt wanting to pursue her own course of action and terminate guardianship. I spent minutes with the patient and/or on the patient floor today, greater than?50% of which was spent counseling/coordinating care. Patient educated on: therapeutic strategies Informed Consent: understands and further education needed Reason for contiued inpatient stay Substantial Risk for: rapid decompensation
[2022-03-12] MEDS: Benztropine Mesylate 0.5 MG TABLET 1.5 MG PO (21:10)
[2022-03-12] MEDS: Lurasidone HCl 20 MG TABLET PO (21:14)
[2022-03-12] MEDS: Melatonin 3 MG TABLET 9 MG PO (21:14)
[2022-03-12] MEDS: traZODone HCL 25 MG HALFTAB PO (21:15)
--- NOTE | 2022-03-13 09:17 | P.PNPSI_ITS ---
Subjective Subjective Date of Service: 03/13/22 Reason For Visit: Psychosis Subjective Notes: Conditional Voluntary Healthcare Proxy: No Guardianship: Yes Medical Problems Affecting Mental Status: No Interim History: Pt approaching other male patients, provocative, asking for clothing (hoodies). Melatonin tabs found on the floor outside of her room. Continues to discuss with mom and increased amount of cocaine use at her residence prior to admission along with cannabis. Mom reports pt did call her and inform her she did not want to return to the assisted-mom told her she could not come home. 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 Pt continues to reject further treatment interventions. Medication Compliance: Yes Side effects from medications: No Attending Groups: Intermittent Review of Systems Acute medical concerns: No Medical Review of Systems: unchanged Review of Systems Psychiatric: Reports no additional psychiatric complaints Mental Status Exam Mental Status Exam Patient Appearance: Fatigued, Disheveled and Unkempt Patient Orientation: Person, Place, Time and Situation Level of Consciousness: Alert Patient Behavior: Guarded, Suspicious, Asleep, Belligerent, Anxious, Fearful, Resistive to Care, Avoidant, Fatigued, Distractible, Isolative and Good Eye Contact Mood Description: Apathetic, Suspicious, Withdrawn, Depressed, Hostile and Angry Affect Description: Suspicious, Withdrawn, Labile and Angry Patient Cognition Impaired: Yes Ability to Follow Directions: Fair Speech Pattern: Spontaneous Speech and Soft-Spoken Memory Description: Episodic Impaired Hallucinations: None (pt denies-team reports observations of response to internal stimuli.) Delusions: Paranoid Ideation Perceptual Disturbances: Depersonalization, Derealization and Hallucinations Thought Process: Rumination and Evasive Thought Content: positive for Perseveration, positive for Poverty of Content, positive for Preoccupation, positive for Evasive, positive for Suicidal Ideation (denies) and positive for Homicidal Ideation (denies) Depressive Symptoms: Increased Irritability, Crying Spells, Sleeping More Than Usual, Loss of Int. in Activity, Feelings of Worthlessness, Hopelessness, Isolating-Friends/Family, Unhappiness, Increased Fatigue, Low Self Esteem, Loss of Energy and Difficulty Concentrating Abnormal Motor Activity Signs and Symptoms: Agitation and Restlessness Judgement: Poor Diagnostics Vital Signs (24Hr): BMI result Body Mass Index 22.6 Labs Results: 02/21/22 16:26 02/21/22 16:26 Medications Medications Current Medications Acetaminophen (Acetaminophen 325 Mg Tablet) 650 mg PO Q6H PRN PRN Reason: Headache/Pain Mild Scale (1-3) Last Admin: 03/01/22 07:05 Dose: 650 mg Al Hydroxide/Mg Hydroxide (Magnesium Hydrox/Alum Hydrox 30 Ml Oral.Susp) 30 ml PO Q6H PRN PRN Reason: Heartburn/Nausea Albuterol Sulfate (Albuterol Sulfate 90 Mcg 8 Gm Inhaler) 2 puff INHALE QID PRN PRN Reason: shortness of breath or wheezing Benztropine Mesylate (Benztropine Mesylate 0.5 Mg Tablet) 1.5 mg PO BID [facility] Last Admin: 03/12/22 21:10 Dose: 1.5 mg Calcium Carbonate/Cholecalciferol (Calcium + Vitamin D 250 Mg Tablet) 250 mg PO DAILY [facility] Last Admin: 03/12/22 12:35 Dose: Not Given Diphenhydramine HCl (Diphenhydramine Hcl 25 Mg Tablet) 25 mg PO DAILY PRN PRN Reason: DYSTONIA Last Admin: 03/07/22 23:50 Dose: 25 mg Hydrocortisone (Hydrocortisone 1 % Cream 28.35 Gm Tube) 1 appl TOPICAL BID PRN; Protocol PRN Reason: skin breakdown between fingers Hydroxyzine HCl (Hydroxyzine Hcl 25 Mg Tablet) 25 mg PO TID PRN PRN Reason: ANXIETY/SLEEP Last Admin: 03/07/22 23:50 Dose: 25 mg Lurasidone HCl (Lurasidone Hcl 20 Mg Tablet) 20 mg PO BEDTIME [facility] Last Admin: 03/12/22 21:14 Dose: 20 mg Magnesium Hydroxide (Milk Of Magnesia 30 Ml Oral.Susp) 30 ml PO DAILY PRN PRN Reason: Constipation Melatonin (Melatonin 3 Mg Tablet) 9 mg PO BEDTIME [facility] Last Admin: 03/12/22 21:14 Dose: 9 mg Multivitamins/Vitamin C (Multivitamin Tablet) 1 tab PO DAILY [facility] Last Admin: 03/12/22 12:35 Dose: Not Given Nicotine Polacrilex (Nicotine Polacrilex 2 Mg Gum) 2 mg BUCCAL Q2H PRN PRN Reason: Nicotine Cravings Last Admin: 03/12/22 21:10 Dose: 2 mg Olanzapine (Olanzapine 10 Mg Tablet) 10 mg PO BID PRN PRN Reason: psychotic agitation Polyethylene Glycol (Polyethylene Glycol 3350 17 Gm Powd.Pack) 17 gm PO DAILY PRN PRN Reason: constipation Trazodone HCl (Trazodone Hcl 25 Mg Halftab) 25 mg PO BEDTIME [facility] Last Admin: 03/12/22 21:15 Dose: 25 mg Allergies Allergies Allergy/AdvReac Type Severity Reaction Status Date / Time aripiprazole [Abilify] Allergy Unknown tongue Verified 03/04/22 10:00 swells and gain weight risperidone [From Risperdal] AdvReac Unknown gain Verified 03/04/22 10:00 weight, and slurred speech cariprazine [From Vraylar] AdvReac Verified 12/19/21 14:42 haloperidol [From Haldol] AdvReac DYSTONIA Verified 02/21/22 18:22 paliperidone AdvReac dystonia Verified 12/19/21 14:42 trazodone AdvReac DYSTONIA Verified 02/21/22 18:23 Assessment & Plan Assessment & Plan (1) Schizoaffective disorder, depressive type: Status: Acute Code(s): F25.1 - Schizoaffective disorder, depressive type Plan Patient with reported schizoaffective depressive ilness admitted with concerns regarding ability to care for self, paranoia, suicidal thoughts off medications for 2 weeks. - Admit for safety - Milieu therapy - DC planning Regarding medications will restart Latuda 80 mg, Zoloft 50 mg, trazodone 150 mg. Will restart Lamictal at 25 mg as it appears she has been off his for the best part of 2 weeks. Will also try to clarify Haldol adverse effect of dystonia in context of patient being discharged on same in September 2021. 02/23/2022: No changes to current regimen. Did clarify dystonic reactions in the past 02/24/2022: No changes to current regimen 02/26/22: Meeting with mother and OP team 02/28/22. Continue current regime. 02/28/22: Prolixin 1 mg daily to augment Latuda May need Section 02/28 if pt begins to refuse medications. 03/01/22 no changes to medication regimen 03/02/22 refused to take medications; not eating. Patient's roommate reported that in the past few days when she was given medications she would go to her room and throw it up. 03/03/22 Continues to refuse medications. Guardian, pt's mother prefers no IM meds unless absolutely needed. 03/05/22 Pt agrees to Latuda 20 mg daily. Asks to discontinue Sertraline, Lamictal. Guardian prefers no IM meds. 03/06/22 Continue to educate pt regarding treatment for illness. 03/07/22 Cortisone cream for rash on pt's finger. Continue Latuda. Educate, Support. 03/08/22 guarded and difficult to engage; no changes to current treatment plan 03/09/22 START Trazodone 25mg for insomnia Wants to discuss Adderall for concentration. no other changes to current treatment plan 03/11/22 Olanzapine 10 mg bid prn psychotic agitation. 03/13/22 Discharge planning. Pt not wanting further treatment I spent minutes with the patient and/or on the patient floor today, greater than?50% of which was spent counseling/coordinating care. Patient educated on: other Informed Consent: understands Reason for contiued inpatient stay Substantial Risk for: rapid decompensation
[2022-03-13] MEDS: Nicotine Polacrilex 2 MG GUM BUCCAL ×3 (13:43→21:01)
[2022-03-13 18:00] VITALS: BP 117/90; PULSE 78; TEMP 36.8; O2SAT 99
[2022-03-13] MEDS: Melatonin 3 MG TABLET 9 MG PO (19:23)
[2022-03-13] MEDS: Benztropine Mesylate 0.5 MG TABLET 1.5 MG PO (19:23)
[2022-03-13] MEDS: Lurasidone HCl 20 MG TABLET PO (19:24)
[2022-03-13] MEDS: traZODone HCL 25 MG HALFTAB PO (19:24)
[2022-03-14 08:42] VITALS: BP 111/72; PULSE 68; TEMP 36.8
--- NOTE | 2022-03-14 09:18 | HO.PSYCHPN ---
Subjective Subjective Date of Service: 03/14/22 Reason For Visit: Psychosis Subjective Notes: Conditional Voluntary Healthcare Proxy: No Guardianship: Yes Medical Problems Affecting Mental Status: No Interim History: Asks to discontinue Trazodone which is completed. Discussed discharge planning. Discussed senior care placement as not the best option for her-she agrees. Family has declined to have her return to the home. 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 Reports feeling better. Brighter, less angry, increasingly engaged. Visable with peers. Some interest in group today, art and [employer], but appears in and out of the process. Medication Compliance: Yes Side effects from medications: No Attending Groups: Intermittent Review of Systems Acute medical concerns: No Medical Review of Systems: unchanged Review of Systems Psychiatric: Reports no additional psychiatric complaints Mental Status Exam Mental Status Exam Patient Appearance: Disheveled Patient Orientation: Person, Place, Time and Situation Level of Consciousness: Alert Patient Behavior: Talkative, Cooperative and Good Eye Contact Mood Description: Calm and Withdrawn Affect Description: Flat Patient Cognition Impaired: Yes Ability to Follow Directions: Good Speech Pattern: Spontaneous Speech Memory Description: Episodic Impaired Hallucinations: None Delusions: Not Present Perceptual Disturbances: Depersonalization and Derealization Thought Process: Distracted Thought Content: positive for Circumstantial and positive for Suicidal Ideation (denies) Depressive Symptoms: Diff. Making Decisions and Low Self Esteem Judgement: Fair Diagnostics Vital Signs (24Hr): Vital Signs - 24 hr 03/13/22 18:00 Temperature 98.2 F Pulse Rate 78 Blood Pressure 117/90 H Pulse Oximetry 99 BMI result Body Mass Index 22.6 Labs Results: 02/21/22 16:26 02/21/22 16:26 Medications Medications Current Medications Acetaminophen (Acetaminophen 325 Mg Tablet) 650 mg PO Q6H PRN PRN Reason: Headache/Pain Mild Scale (1-3) Last Admin: 03/01/22 07:05 Dose: 650 mg Al Hydroxide/Mg Hydroxide (Magnesium Hydrox/Alum Hydrox 30 Ml Oral.Susp) 30 ml PO Q6H PRN PRN Reason: Heartburn/Nausea Albuterol Sulfate (Albuterol Sulfate 90 Mcg 8 Gm Inhaler) 2 puff INHALE QID PRN PRN Reason: shortness of breath or wheezing Benztropine Mesylate (Benztropine Mesylate 0.5 Mg Tablet) 1.5 mg PO BID [facility] Last Admin: 03/13/22 19:23 Dose: 1.5 mg Calcium Carbonate/Cholecalciferol (Calcium + Vitamin D 250 Mg Tablet) 250 mg PO DAILY [facility] Last Admin: 03/13/22 11:46 Dose: Not Given Diphenhydramine HCl (Diphenhydramine Hcl 25 Mg Tablet) 25 mg PO DAILY PRN PRN Reason: DYSTONIA Last Admin: 03/07/22 23:50 Dose: 25 mg Hydrocortisone (Hydrocortisone 1 % Cream 28.35 Gm Tube) 1 appl TOPICAL BID PRN; Protocol PRN Reason: skin breakdown between fingers Hydroxyzine HCl (Hydroxyzine Hcl 25 Mg Tablet) 25 mg PO TID PRN PRN Reason: ANXIETY/SLEEP Last Admin: 03/07/22 23:50 Dose: 25 mg Lurasidone HCl (Lurasidone Hcl 20 Mg Tablet) 20 mg PO BEDTIME [facility] Last Admin: 03/13/22 19:24 Dose: 20 mg Magnesium Hydroxide (Milk Of Magnesia 30 Ml Oral.Susp) 30 ml PO DAILY PRN PRN Reason: Constipation Melatonin (Melatonin 3 Mg Tablet) 9 mg PO BEDTIME [facility] Last Admin: 03/13/22 19:23 Dose: 9 mg Multivitamins/Vitamin C (Multivitamin Tablet) 1 tab PO DAILY [facility] Last Admin: 03/13/22 11:46 Dose: Not Given Nicotine Polacrilex (Nicotine Polacrilex 2 Mg Gum) 2 mg BUCCAL Q2H PRN PRN Reason: Nicotine Cravings Last Admin: 03/13/22 21:01 Dose: 2 mg Olanzapine (Olanzapine 10 Mg Tablet) 10 mg PO BID PRN PRN Reason: psychotic agitation Polyethylene Glycol (Polyethylene Glycol 3350 17 Gm Powd.Pack) 17 gm PO DAILY PRN PRN Reason: constipation Trazodone HCl (Trazodone Hcl 25 Mg Halftab) 25 mg PO BEDTIME [facility] Last Admin: 03/13/22 19:24 Dose: 25 mg Allergies Allergies Allergy/AdvReac Type Severity Reaction Status Date / Time aripiprazole [Abilify] Allergy Unknown tongue Verified 03/04/22 10:00 swells and gain weight risperidone [From Risperdal] AdvReac Unknown gain Verified 03/04/22 10:00 weight, and slurred speech cariprazine [From Vraylar] AdvReac Verified 12/19/21 14:42 haloperidol [From Haldol] AdvReac DYSTONIA Verified 02/21/22 18:22 paliperidone AdvReac dystonia Verified 12/19/21 14:42 trazodone AdvReac DYSTONIA Verified 02/21/22 18:23 Assessment & Plan Assessment & Plan (1) Schizoaffective disorder, depressive type: Status: Acute Code(s): F25.1 - Schizoaffective disorder, depressive type Plan Patient with reported schizoaffective depressive ilness admitted with concerns regarding ability to care for self, paranoia, suicidal thoughts off medications for 2 weeks. - Admit for safety - Milieu therapy - DC planning Regarding medications will restart Latuda 80 mg, Zoloft 50 mg, trazodone 150 mg. Will restart Lamictal at 25 mg as it appears she has been off his for the best part of 2 weeks. Will also try to clarify Haldol adverse effect of dystonia in context of patient being discharged on same in September 2021. 02/23/2022: No changes to current regimen. Did clarify dystonic reactions in the past 02/24/2022: No changes to current regimen 02/26/22: Meeting with mother and OP team 02/28/22. Continue current regime. 02/28/22: Prolixin 1 mg daily to augment Latuda May need Section 02/28 if pt begins to refuse medications. 03/01/22 no changes to medication regimen 03/02/22 refused to take medications; not eating. Patient's roommate reported that in the past few days when she was given medications she would go to her room and throw it up. 03/03/22 Continues to refuse medications. Guardian, pt's mother prefers no IM meds unless absolutely needed. 03/05/22 Pt agrees to Latuda 20 mg daily. Asks to discontinue Sertraline, Lamictal. Guardian prefers no IM meds. 03/06/22 Continue to educate pt regarding treatment for illness. 03/07/22 Cortisone cream for rash on pt's finger. Continue Latuda. Educate, Support. 03/08/22 guarded and difficult to engage; no changes to current treatment plan 03/09/22 START Trazodone 25mg for insomnia Wants to discuss Adderall for concentration. no other changes to current treatment plan 03/11/22 Olanzapine 10 mg bid prn psychotic agitation. 03/13/22 Discharge planning. Pt not wanting further treatment 03/14/22 DC Trazodone I spent minutes with the patient and/or on the patient floor today, greater than?50% of which was spent counseling/coordinating care. Patient educated on: medication risk/benefits and therapeutic strategies Informed Consent: understands and further education needed Reason for contiued inpatient stay Substantial Risk for: harm to self and rapid decompensation
[2022-03-14] MEDS: Calcium + Vitamin D 250 MG TABLET PO (09:19)
[2022-03-14] MEDS: Nicotine Polacrilex 2 MG GUM BUCCAL ×4 (09:19→19:14)
[2022-03-14] MEDS: Multivitamin TABLET 1 TAB PO (09:19)
[2022-03-14] MEDS: Benztropine Mesylate 0.5 MG TABLET 1.5 MG PO ×2 (09:19→21:20)
[2022-03-14] MEDS: Hydrocortisone 1 % Cream 28.35 GM TUBE 1 APPL TOPICAL (09:20)
--- NOTE | 2022-03-14 17:41 | P.PNPSI_ITS ---
Subjective Subjective Date of Service: 03/14/22 Reason For Visit: Psychosis Subjective Notes: Dejesus Warning Interim History: Pt seen and discussed with team. I evaluated the pt this evening and upon interview she reports she wants to get off medication, says meds make me not understand, she doesnt feel as sharp. Says they wont prescribe adderall. Sleep is good. Denies AH, I dont have them. Appetite is good. She asks for STI testing, denies s/s of STI but wants a clean bill of health. Denies SI/SIB. Says she feels safe. Waiting for a [facility] respite bed.? Medication Compliance: Yes Side effects from medications: No Attending Groups: No Review of Systems Acute medical concerns: No Medical Review of Systems: unchanged Mental Status Exam Mental Status Exam Narrative: Patient Appearance: Fatigued, Disheveled and Unkempt Patient Orientation: Person, Place, Time and Situation Level of Consciousness: Alert Patient Behavior: Guarded, Suspicious, Asleep, Belligerent, Anxious, Fearful, Resistive to Care, Avoidant, Fatigued, Distractible, Isolative and Good Eye Contact Mood Description: Apathetic, Suspicious, Withdrawn, Depressed, Hostile and Angry Affect Description: Suspicious, Withdrawn, Labile and Angry Patient Cognition Impaired: Yes Ability to Follow Directions: Fair Speech Pattern: Spontaneous Speech and Soft-Spoken Memory Description: Episodic Impaired Hallucinations: None (pt denies-team reports observations of response to internal stimuli.) Delusions: Paranoid Ideation Perceptual Disturbances: Depersonalization, Derealization and Hallucinations Thought Process: Rumination and Evasive Thought Content: positive for Perseveration, positive for Poverty of Content, positive for Preoccupation, positive for Evasive, positive for Suicidal Ideation (denies) and positive for Homicidal Ideation (denies) Depressive Symptoms: Increased Irritability, Crying Spells, Sleeping More Than Usual, Loss of Int. in Activity, Feelings of Worthlessness, Hopelessness, Isolating-Friends/Family, Unhappiness, Increased Fatigue, Low Self Esteem, Loss of Energy and Difficulty Concentrating Abnormal Motor Activity Signs and Symptoms: Agitation and Restlessness Judgment: Poor Diagnostics Vital Signs (24Hr): Vital Signs - 24 hr 03/13/22 18:00 03/14/22 08:42 Temperature 98.2 F 98.2 F Pulse Rate 78 68 Blood Pressure 117/90 H 111/72 Pulse Oximetry 99 BMI result Body Mass Index 22.6 Labs Results: 02/21/22 16:26 02/21/22 16:26 Medications Medications Current Medications Acetaminophen (Acetaminophen 325 Mg Tablet) 650 mg PO Q6H PRN PRN Reason: Headache/Pain Mild Scale (1-3) Last Admin: 03/01/22 07:05 Dose: 650 mg Al Hydroxide/Mg Hydroxide (Magnesium Hydrox/Alum Hydrox 30 Ml Oral.Susp) 30 ml PO Q6H PRN PRN Reason: Heartburn/Nausea Albuterol Sulfate (Albuterol Sulfate 90 Mcg 8 Gm Inhaler) 2 puff INHALE QID PRN PRN Reason: shortness of breath or wheezing Benztropine Mesylate (Benztropine Mesylate 0.5 Mg Tablet) 1.5 mg PO BID [facility] Last Admin: 03/14/22 09:19 Dose: 1.5 mg Calcium Carbonate/Cholecalciferol (Calcium + Vitamin D 250 Mg Tablet) 250 mg PO DAILY [facility] Last Admin: 03/14/22 09:19 Dose: 250 mg Diphenhydramine HCl (Diphenhydramine Hcl 25 Mg Tablet) 25 mg PO DAILY PRN PRN Reason: DYSTONIA Last Admin: 03/07/22 23:50 Dose: 25 mg Hydrocortisone (Hydrocortisone 1 % Cream 28.35 Gm Tube) 1 appl TOPICAL BID PRN; Protocol PRN Reason: skin breakdown between fingers Last Admin: 03/14/22 09:20 Dose: 1 appl Hydroxyzine HCl (Hydroxyzine Hcl 25 Mg Tablet) 25 mg PO TID PRN PRN Reason: ANXIETY/SLEEP Last Admin: 03/07/22 23:50 Dose: 25 mg Lurasidone HCl (Lurasidone Hcl 20 Mg Tablet) 20 mg PO BEDTIME [facility] Last Admin: 03/13/22 19:24 Dose: 20 mg Magnesium Hydroxide (Milk Of Magnesia 30 Ml Oral.Susp) 30 ml PO DAILY PRN PRN Reason: Constipation Melatonin (Melatonin 3 Mg Tablet) 9 mg PO BEDTIME [facility] Last Admin: 03/13/22 19:23 Dose: 9 mg Multivitamins/Vitamin C (Multivitamin Tablet) 1 tab PO DAILY [facility] Last Admin: 03/14/22 09:19 Dose: 1 tab Nicotine Polacrilex (Nicotine Polacrilex 2 Mg Gum) 2 mg BUCCAL Q2H PRN PRN Reason: Nicotine Cravings Last Admin: 03/14/22 16:29 Dose: 2 mg Olanzapine (Olanzapine 10 Mg Tablet) 10 mg PO BID PRN PRN Reason: psychotic agitation Polyethylene Glycol (Polyethylene Glycol 3350 17 Gm Powd.Pack) 17 gm PO DAILY PRN PRN Reason: constipation Allergies Allergies Allergy/AdvReac Type Severity Reaction Status Date / Time aripiprazole [Abilify] Allergy Unknown tongue Verified 03/04/22 10:00 swells and gain weight risperidone [From Risperdal] AdvReac Unknown gain Verified 03/04/22 10:00 weight, and slurred speech cariprazine [From Vraylar] AdvReac Verified 12/19/21 14:42 haloperidol [From Haldol] AdvReac DYSTONIA Verified 02/21/22 18:22 paliperidone AdvReac dystonia Verified 12/19/21 14:42 trazodone AdvReac DYSTONIA Verified 02/21/22 18:23 Assessment & Plan Assessment & Plan (1) Schizoaffective disorder, depressive type: Status: Acute Code(s): F25.1 - Schizoaffective disorder, depressive type Plan Patient with reported schizoaffective depressive ilness admitted with concerns regarding ability to care for self, paranoia, suicidal thoughts off medications for 2 weeks. - Admit for safety - Milieu therapy - DC planning Regarding medications will restart Latuda 80 mg, Zoloft 50 mg, trazodone 150 mg. Will restart Lamictal at 25 mg as it appears she has been off his for the best part of 2 weeks. Will also try to clarify Haldol adverse effect of dystonia in context of patient being discharged on same in September 2021. 02/23/2022: No changes to current regimen. Did clarify dystonic reactions in the past 02/24/2022: No changes to current regimen 02/26/22: Meeting with mother and OP team 02/28/22. Continue current regime. 02/28/22: Prolixin 1 mg daily to augment Latuda May need Section 02/28 if pt begins to refuse medications. 03/01/22 no changes to medication regimen 03/02/22 refused to take medications; not eating. Patient's roommate reported that in the past few days when she was given medications she would go to her room and throw it up. 03/03/22 Continues to refuse medications. Guardian, pt's mother prefers no IM meds unless absolutely needed. 03/05/22 Pt agrees to Latuda 20 mg daily. Asks to discontinue Sertraline, Lamictal. Guardian prefers no IM meds. 03/06/22 Continue to educate pt regarding treatment for illness. 03/07/22 Cortisone cream for rash on pt's finger. Continue Latuda. Educate, Support. 03/08/22 guarded and difficult to engage; no changes to current treatment plan 03/09/22 START Trazodone 25mg for insomnia Wants to discuss Adderall for concentration. no other changes to current treatment plan 03/11/22 Olanzapine 10 mg bid prn psychotic agitation. 03/13/22 Discharge planning. Pt not wanting further treatment 03/14/22 No med changes, pt requested STI testing I spent minutes with the patient and/or on the patient floor today, greater than?50% of which was spent counseling/coordinating care. Patient educated on: medication risk/benefits and therapeutic strategies Reason for contiued inpatient stay Substantial Risk for: inability to function, rapid decompensation and med/psych decompensation
[2022-03-14] MEDS: Lurasidone HCl 20 MG TABLET PO (21:20)
[2022-03-14] MEDS: Melatonin 3 MG TABLET 9 MG PO (21:21)
[2022-03-15 08:30] VITALS: BP 114/71; PULSE 66; RESP 18; TEMP 36.2; O2SAT 98
[2022-03-15] MEDS: Multivitamin TABLET 1 TAB PO (09:01)
[2022-03-15] MEDS: Calcium + Vitamin D 250 MG TABLET PO (09:01)
[2022-03-15] MEDS: Benztropine Mesylate 0.5 MG TABLET 1.5 MG PO ×2 (09:01→20:59)
--- NOTE | 2022-03-15 11:31 | HO.PSYCHPN ---
Subjective Subjective Date of Service: 03/15/22 Reason For Visit: Psychosis Subjective Notes: Conditional Voluntary Healthcare Proxy: No Guardianship: No Medical Problems Affecting Mental Status: No Interim History: Desi was seen and discussed in rounds today. She has been doing better and is brighter in her affect. Some inappropriate affect still present. No complaints of depression or anxiety. No suicidal ideations. Eating okay intermittently. She asked about making an OBGYN appointment and I suggested bringing that up during the week. No complaints or side effects. No changes were made today. Medication Compliance: Intermittent Review of Systems Review of Systems Yes all other systems are reviewed and are negative Diagnostics Vital Signs (24Hr): Vital Signs - 24 hr 03/15/22 08:30 Temperature 97.2 F Pulse Rate 66 Respiratory Rate 18 Blood Pressure 114/71 Pulse Oximetry 98 Oxygen Delivery Method Room Air BMI result Body Mass Index 22.6 Labs Results: 02/21/22 16:26 02/21/22 16:26 Medications Medications Current Medications Acetaminophen (Acetaminophen 325 Mg Tablet) 650 mg PO Q6H PRN PRN Reason: Headache/Pain Mild Scale (1-3) Last Admin: 03/01/22 07:05 Dose: 650 mg Al Hydroxide/Mg Hydroxide (Magnesium Hydrox/Alum Hydrox 30 Ml Oral.Susp) 30 ml PO Q6H PRN PRN Reason: Heartburn/Nausea Albuterol Sulfate (Albuterol Sulfate 90 Mcg 8 Gm Inhaler) 2 puff INHALE QID PRN PRN Reason: shortness of breath or wheezing Benztropine Mesylate (Benztropine Mesylate 0.5 Mg Tablet) 1.5 mg PO BID DUSTIN Last Admin: 03/15/22 09:01 Dose: 1.5 mg Calcium Carbonate/Cholecalciferol (Calcium + Vitamin D 250 Mg Tablet) 250 mg PO DAILY DUSTIN Last Admin: 03/15/22 09:01 Dose: 250 mg Diphenhydramine HCl (Diphenhydramine Hcl 25 Mg Tablet) 25 mg PO DAILY PRN PRN Reason: DYSTONIA Last Admin: 03/07/22 23:50 Dose: 25 mg Hydrocortisone (Hydrocortisone 1 % Cream 28.35 Gm Tube) 1 appl TOPICAL BID PRN; Protocol PRN Reason: skin breakdown between fingers Last Admin: 03/14/22 09:20 Dose: 1 appl Hydroxyzine HCl (Hydroxyzine Hcl 25 Mg Tablet) 25 mg PO TID PRN PRN Reason: ANXIETY/SLEEP Last Admin: 03/07/22 23:50 Dose: 25 mg Lurasidone HCl (Lurasidone Hcl 20 Mg Tablet) 20 mg PO BEDTIME [facility] Last Admin: 03/14/22 21:20 Dose: 20 mg Magnesium Hydroxide (Milk Of Magnesia 30 Ml Oral.Susp) 30 ml PO DAILY PRN PRN Reason: Constipation Melatonin (Melatonin 3 Mg Tablet) 9 mg PO BEDTIME [facility] Last Admin: 03/14/22 21:21 Dose: 9 mg Multivitamins/Vitamin C (Multivitamin Tablet) 1 tab PO DAILY DUSTIN Last Admin: 03/15/22 09:01 Dose: 1 tab Nicotine Polacrilex (Nicotine Polacrilex 2 Mg Gum) 2 mg BUCCAL Q2H PRN PRN Reason: Nicotine Cravings Last Admin: 03/14/22 19:14 Dose: 2 mg Olanzapine (Olanzapine 10 Mg Tablet) 10 mg PO BID PRN PRN Reason: psychotic agitation Polyethylene Glycol (Polyethylene Glycol 3350 17 Gm Powd.Pack) 17 gm PO DAILY PRN PRN Reason: constipation Allergies Allergies Allergy/AdvReac Type Severity Reaction Status Date / Time aripiprazole [Abilify] Allergy Unknown tongue Verified 03/04/22 10:00 swells and gain weight risperidone [From Risperdal] AdvReac Unknown gain Verified 03/04/22 10:00 weight, and slurred speech cariprazine [From Vraylar] AdvReac Verified 12/19/21 14:42 haloperidol [From Haldol] AdvReac DYSTONIA Verified 02/21/22 18:22 paliperidone AdvReac dystonia Verified 12/19/21 14:42 trazodone AdvReac DYSTONIA Verified 02/21/22 18:23 Assessment & Plan Assessment & Plan (1) Schizoaffective disorder, depressive type: Status: Acute Code(s): F25.1 - Schizoaffective disorder, depressive type Plan Patient with reported schizoaffective depressive ilness admitted with concerns regarding ability to care for self, paranoia, suicidal thoughts off medications for 2 weeks. - Admit for safety - Milieu therapy - DC planning Regarding medications will restart Latuda 80 mg, Zoloft 50 mg, trazodone 150 mg. Will restart Lamictal at 25 mg as it appears she has been off his for the best part of 2 weeks. Will also try to clarify Haldol adverse effect of dystonia in context of patient being discharged on same in September 2021. 02/23/2022: No changes to current regimen. Did clarify dystonic reactions in the past 02/24/2022: No changes to current regimen 02/26/22: Meeting with mother and OP team 02/28/22. Continue current regime. 02/28/22: Prolixin 1 mg daily to augment Latuda May need Section 02/28 if pt begins to refuse medications. 03/01/22 no changes to medication regimen 03/02/22 refused to take medications; not eating. Patient's roommate reported that in the past few days when she was given medications she would go to her room and throw it up. 03/03/22 Continues to refuse medications. Guardian, pt's mother prefers no IM meds unless absolutely needed. 03/05/22 Pt agrees to Latuda 20 mg daily. Asks to discontinue Sertraline, Lamictal. Guardian prefers no IM meds. 03/06/22 Continue to educate pt regarding treatment for illness. 03/07/22 Cortisone cream for rash on pt's finger. Continue Latuda. Educate, Support. 03/08/22 guarded and difficult to engage; no changes to current treatment plan 03/09/22 START Trazodone 25mg for insomnia Wants to discuss Adderall for concentration. no other changes to current treatment plan 03/11/22 Olanzapine 10 mg bid prn psychotic agitation. 03/13/22 Discharge planning. Pt not wanting further treatment 03/14/22 DC Trazodone 03/15: Continue current regimen and plans I spent minutes with the patient and/or on the patient floor today, greater than?50% of which was spent counseling/coordinating care. Reason for contiued inpatient stay Substantial Risk for: med/psych decompensation
[2022-03-15] MEDS: Nicotine Polacrilex 2 MG GUM BUCCAL ×3 (13:47→23:15)
[2022-03-15 16:49] VITALS: RESP 18
[2022-03-15] MEDS: Lurasidone HCl 20 MG TABLET PO (20:59)
[2022-03-15] MEDS: Melatonin 3 MG TABLET 9 MG PO (20:59)
[2022-03-16] MEDS: Calcium + Vitamin D 250 MG TABLET PO (09:01)
[2022-03-16] MEDS: Benztropine Mesylate 0.5 MG TABLET 1.5 MG PO ×2 (09:01→21:43)
[2022-03-16] MEDS: Multivitamin TABLET 1 TAB PO (09:01)
[2022-03-16 09:05] VITALS: RESP 18
--- NOTE | 2022-03-16 09:09 | P.PNPSI_ITS ---
Subjective Subjective Date of Service: 03/16/22 Reason For Visit: Psychosis Subjective Notes: Conditional Voluntary Healthcare Proxy: No Guardianship: No Medical Problems Affecting Mental Status: No Interim History: Deis was seen and discussed in rounds today. She continues to be isolative but has been more social. Little to no insight into the issues at hand. Eating minimally. Sleeping adequately. She has been more visible. No complaints or side effects. No SI. No changes were made today Medication Compliance: Yes Side effects from medications: No Review of Systems Review of Systems Yes all other systems are reviewed and are negative Mental Status Exam Mental Status Exam Narrative: In today's visit she is alert, oriented and minimally interactive. She communicates mostly by nodding her head with a few words. Minimal speech. Moderate eye contact. Affect is subdued and constricted. No observable signs of psychosis. No SI. Cognitively she has slow thought processes. Judgment is marginally intact Diagnostics Vital Signs (24Hr): Vital Signs - 24 hr 03/15/22 16:49 03/16/22 09:05 Respiratory Rate 18 18 BMI result Body Mass Index 22.6 Labs Results: 02/21/22 16:26 02/21/22 16:26 Medications Medications Current Medications Acetaminophen (Acetaminophen 325 Mg Tablet) 650 mg PO Q6H PRN PRN Reason: Headache/Pain Mild Scale (1-3) Last Admin: 03/01/22 07:05 Dose: 650 mg Al Hydroxide/Mg Hydroxide (Magnesium Hydrox/Alum Hydrox 30 Ml Oral.Susp) 30 ml PO Q6H PRN PRN Reason: Heartburn/Nausea Albuterol Sulfate (Albuterol Sulfate 90 Mcg 8 Gm Inhaler) 2 puff INHALE QID PRN PRN Reason: shortness of breath or wheezing Benztropine Mesylate (Benztropine Mesylate 0.5 Mg Tablet) 1.5 mg PO BID DUSTIN Last Admin: 03/16/22 09:01 Dose: 1.5 mg Calcium Carbonate/Cholecalciferol (Calcium + Vitamin D 250 Mg Tablet) 250 mg PO DAILY DUSTIN Last Admin: 03/16/22 09:01 Dose: 250 mg Diphenhydramine HCl (Diphenhydramine Hcl 25 Mg Tablet) 25 mg PO DAILY PRN PRN Reason: DYSTONIA Last Admin: 03/07/22 23:50 Dose: 25 mg Hydrocortisone (Hydrocortisone 1 % Cream 28.35 Gm Tube) 1 appl TOPICAL BID PRN; Protocol PRN Reason: skin breakdown between fingers Last Admin: 03/14/22 09:20 Dose: 1 appl Hydroxyzine HCl (Hydroxyzine Hcl 25 Mg Tablet) 25 mg PO TID PRN PRN Reason: ANXIETY/SLEEP Last Admin: 03/07/22 23:50 Dose: 25 mg Lurasidone HCl (Lurasidone Hcl 20 Mg Tablet) 20 mg PO BEDTIME [facility] Last Admin: 03/15/22 20:59 Dose: 20 mg Magnesium Hydroxide (Milk Of Magnesia 30 Ml Oral.Susp) 30 ml PO DAILY PRN PRN Reason: Constipation Melatonin (Melatonin 3 Mg Tablet) 9 mg PO BEDTIME [facility] Last Admin: 03/15/22 20:59 Dose: 9 mg Multivitamins/Vitamin C (Multivitamin Tablet) 1 tab PO DAILY DUSTIN Last Admin: 03/16/22 09:01 Dose: 1 tab Nicotine Polacrilex (Nicotine Polacrilex 2 Mg Gum) 2 mg BUCCAL Q2H PRN PRN Reason: Nicotine Cravings Last Admin: 03/15/22 23:15 Dose: 2 mg Olanzapine (Olanzapine 10 Mg Tablet) 10 mg PO BID PRN PRN Reason: psychotic agitation Polyethylene Glycol (Polyethylene Glycol 3350 17 Gm Powd.Pack) 17 gm PO DAILY PRN PRN Reason: constipation Allergies Allergies Allergy/AdvReac Type Severity Reaction Status Date / Time aripiprazole [Abilify] Allergy Unknown tongue Verified 03/04/22 10:00 swells and gain weight risperidone [From Risperdal] AdvReac Unknown gain Verified 03/04/22 10:00 weight, and slurred speech cariprazine [From Vraylar] AdvReac Verified 12/19/21 14:42 haloperidol [From Haldol] AdvReac DYSTONIA Verified 02/21/22 18:22 paliperidone AdvReac dystonia Verified 12/19/21 14:42 trazodone AdvReac DYSTONIA Verified 02/21/22 18:23 Assessment & Plan Assessment & Plan (1) Schizoaffective disorder, depressive type: Status: Acute Code(s): F25.1 - Schizoaffective disorder, depressive type Plan Patient with reported schizoaffective depressive ilness admitted with concerns regarding ability to care for self, paranoia, suicidal thoughts off medications for 2 weeks. - Admit for safety - Milieu therapy - DC planning Regarding medications will restart Latuda 80 mg, Zoloft 50 mg, trazodone 150 mg. Will restart Lamictal at 25 mg as it appears she has been off his for the best part of 2 weeks. Will also try to clarify Haldol adverse effect of dystonia in context of patient being discharged on same in September 2021. 02/23/2022: No changes to current regimen. Did clarify dystonic reactions in the past 02/24/2022: No changes to current regimen 02/26/22: Meeting with mother and OP team 02/28/22. Continue current regime. 02/28/22: Prolixin 1 mg daily to augment Latuda May need Section 02/28 if pt begins to refuse medications. 03/01/22 no changes to medication regimen 03/02/22 refused to take medications; not eating. Patient's roommate reported th at in the past few days when she was given medications she would go to her room and throw it up. 03/03/22 Continues to refuse medications. Guardian, pt's mother prefers no IM meds unless absolutely needed. 03/05/22 Pt agrees to Latuda 20 mg daily. Asks to discontinue Sertraline, Lamictal. Guardian prefers no IM meds. 03/06/22 Continue to educate pt regarding treatment for illness. 03/07/22 Cortisone cream for rash on pt's finger. Continue Latuda. Educate, Support. 03/08/22 guarded and difficult to engage; no changes to current treatment plan 03/09/22 START Trazodone 25mg for insomnia Wants to discuss Adderall for concentration. no other changes to current treatment plan 03/11/22 Olanzapine 10 mg bid prn psychotic agitation. 03/13/22 Discharge planning. Pt not wanting further treatment 03/14/22 DC Trazodone 03/15: Continue current regimen and plans 03/16: Continue current plans and regimen I spent minutes with the patient and/or on the patient floor today, greater than?50% of which was spent counseling/coordinating care. Reason for contiued inpatient stay Substantial Risk for: med/psych decompensation
[2022-03-16] MEDS: Nicotine Polacrilex 2 MG GUM BUCCAL ×5 (09:31→21:45)
[2022-03-16 13:43] LABS: CT PCR NOT DETECTED (Not Detect.); NG PCR NOT DETECTED (Not Detect.)
[2022-03-16 16:30] VITALS: BP 105/64; PULSE 95; RESP 20; TEMP 37.6; O2SAT 98
[2022-03-16] MEDS: Melatonin 3 MG TABLET 9 MG PO (21:43)
[2022-03-16] MEDS: Lurasidone HCl 20 MG TABLET PO (21:43)
[2022-03-17 07:58] LABS: Syphilis Screen Nonreactive (Nonreactive)
[2022-03-17] MEDS: Benztropine Mesylate 0.5 MG TABLET 1.5 MG PO ×2 (08:54→23:03)
[2022-03-17] MEDS: Calcium + Vitamin D 250 MG TABLET PO (08:54)
[2022-03-17] MEDS: Multivitamin TABLET 1 TAB PO (08:55)
[2022-03-17 10:04] LABS: HIV AB/AG Nonreactive (Nonreactive); HIV Num 1 0.07 S/CO (0.00-0.99)
[2022-03-17] MEDS: Nicotine Polacrilex 2 MG GUM BUCCAL ×2 (13:57→17:05)
--- NOTE | 2022-03-17 16:23 | MHC.CLN ---
NUTRITION CONSULT FOR REDUCED INTAKE AND NEED FOR ENSURE. REVIEW OF WEIGHT HISTORY SHOWS SIGNIFICANT WEIGHT LOSS X 6 MONTHS, -12.8%. REDUCED INTAKE NOTED. ADDING ENSURE TID TO PROVIDE ADDITIONAL 1050 KCALS, 60 G PROTEIN.
--- NOTE | 2022-03-17 19:58 | P.PNPSI_ITS ---
Subjective Subjective Date of Service: 03/17/22 Reason For Visit: Psychosis Subjective Notes: Conditional Voluntary Healthcare Proxy: No Guardianship: Yes Medical Problems Affecting Mental Status: No Interim History: Labile, argumentative. Unable to consider any perspective which she does not agree with. Team reports pt also argumentative with her mother. She continues to persist with not needing treatment, medicine, just needing to be out and have her own place-no help needed. Court 03/25. No aggressive behaviors, however pt observed with an increase in psychotic content and disorganization. Refuses to raise Latuda- I don't even need what I am being forced to take. Appetite/Intake remains poor. Medication Compliance: Yes Side effects from medications: Yes (reported sedation) Attending Groups: Intermittent Review of Systems Acute medical concerns: No Medical Review of Systems: unchanged Review of Systems Psychiatric: Reports change in appetite, Reports depression, Reports difficulty concentrating, Reports auditory hallucinations, Reports irritability, Reports anhedonia, Reports mood swings and Reports paranoia Mental Status Exam Mental Status Exam Patient Appearance: Disheveled Patient Orientation: Person, Place, Time and Situation Level of Consciousness: Alert Patient Behavior: Talkative Mood Description: Hostile, Labile and Angry Affect Description: Constricted Patient Cognition Impaired: Yes Ability to Follow Directions: Fair Speech Pattern: Spontaneous Speech Memory Description: Episodic Impaired Delusions: Paranoid Ideation and Present Perceptual Disturbances: Depersonalization and Derealization Thought Process: Illogical, Distracted and Rumination Thought Content: positive for Gardner, positive for Circumstantial and positive for Perseveration Depressive Symptoms: Diff. Making Decisions and Increased Irritability Abnormal Motor Activity Signs and Symptoms: Restlessness Judgement: Poor Diagnostics Vital Signs (24Hr): BMI result Body Mass Index 22.6 Labs Results: 02/21/22 16:26 02/21/22 16:26 Labs: Laboratory Results - last 48 hr 03/15/22 03/15/22 03/15/22 07:20 07:20 Unknown T.pallidum Ab (EIA) Nonreactive Chlam trachomat DNA PCR NOT DETECTED HIV 1&2 Ab/P24 Ag 4thGn Nonreactive N.gonorrhoeae DNA (PCR) NOT DETECTED Medications Medications Current Medications Acetaminophen (Acetaminophen 325 Mg Tablet) 650 mg PO Q6H PRN PRN Reason: Headache/Pain Mild Scale (1-3) Last Admin: 03/01/22 07:05 Dose: 650 mg Al Hydroxide/Mg Hydroxide (Magnesium Hydrox/Alum Hydrox 30 Ml Oral.Susp) 30 ml PO Q6H PRN PRN Reason: Heartburn/Nausea Albuterol Sulfate (Albuterol Sulfate 90 Mcg 8 Gm Inhaler) 2 puff INHALE QID PRN PRN Reason: shortness of breath or wheezing Benztropine Mesylate (Benztropine Mesylate 0.5 Mg Tablet) 1.5 mg PO BID [facility] [place] Last Admin: 03/17/22 08:54 Dose: 1.5 mg Calcium Carbonate/Cholecalciferol (Calcium + Vitamin D 250 Mg Tablet) 250 mg PO DAILY [facility] [place] Last Admin: 03/17/22 08:54 Dose: 250 mg Diphenhydramine HCl (Diphenhydramine Hcl 25 Mg Tablet) 25 mg PO DAILY PRN PRN Reason: DYSTONIA Last Admin: 03/07/22 23:50 Dose: 25 mg Hydrocortisone (Hydrocortisone 1 % Cream 28.35 Gm Tube) 1 appl TOPICAL BID PRN; Protocol PRN Reason: skin breakdown between fingers Last Admin: 03/14/22 09:20 Dose: 1 appl Hydroxyzine HCl (Hydroxyzine Hcl 25 Mg Tablet) 25 mg PO TID PRN PRN Reason: ANXIETY/SLEEP Last Admin: 03/07/22 23:50 Dose: 25 mg Lurasidone HCl (Lurasidone Hcl 20 Mg Tablet) 20 mg PO BEDTIME [facility] Last Admin: 03/16/22 21:43 Dose: 20 mg Magnesium Hydroxide (Milk Of Magnesia 30 Ml Oral.Susp) 30 ml PO DAILY PRN PRN Reason: Constipation Melatonin (Melatonin 3 Mg Tablet) 9 mg PO BEDTIME [facility] Last Admin: 03/16/22 21:43 Dose: 9 mg Multivitamins/Vitamin C (Multivitamin Tablet) 1 tab PO DAILY [facility] [place] Last Admin: 03/17/22 08:55 Dose: 1 tab Nicotine Polacrilex (Nicotine Polacrilex 2 Mg Gum) 2 mg BUCCAL Q2H PRN PRN Reason: Nicotine Cravings Last Admin: 03/17/22 17:05 Dose: 2 mg Olanzapine (Olanzapine 10 Mg Tablet) 10 mg PO BID PRN PRN Reason: psychotic agitation Polyethylene Glycol (Polyethylene Glycol 3350 17 Gm Powd.Pack) 17 gm PO DAILY PRN PRN Reason: constipation Allergies Allergies Allergy/AdvReac Type Severity Reaction Status Date / Time aripiprazole [Abilify] Allergy Unknown tongue Verified 03/04/22 10:00 swells and gain weight risperidone [From Risperdal] AdvReac Unknown gain Verified 03/04/22 10:00 weight, and slurred speech cariprazine [From Vraylar] AdvReac Verified 12/19/21 14:42 haloperidol [From Haldol] AdvReac DYSTONIA Verified 02/21/22 18:22 paliperidone AdvReac dystonia Verified 12/19/21 14:42 trazodone AdvReac DYSTONIA Verified 02/21/22 18:23 Assessment & Plan Assessment & Plan (1) Schizoaffective disorder, depressive type: Status: Acute Code(s): F25.1 - Schizoaffective disorder, depressive type Plan Patient with reported schizoaffective depressive ilness admitted with concerns regarding ability to care for self, paranoia, suicidal thoughts off medications for 2 weeks. - Admit for safety - Milieu therapy - DC planning Regarding medications will restart Latuda 80 mg, Zoloft 50 mg, trazodone 150 mg. Will restart Lamictal at 25 mg as it appears she has been off his for the best part of 2 weeks. Will also try to clarify Haldol adverse effect of dystonia in context of patient being discharged on same in September 2021. 02/23/2022: No changes to current regimen. Did clarify dystonic reactions in the past 02/24/2022: No changes to current regimen 02/26/22: Meeting with mother and OP team 02/28/22. Continue current regime. 02/28/22: Prolixin 1 mg daily to augment Latuda May need Section 02/28 if pt begins to refuse medications. 03/01/22 no changes to medication regimen 03/02/22 refused to take medications; not eating. Patient's roommate reported that in the past few days when she was given medications she would go to her room and throw it up. 03/03/22 Continues to refuse medications. Guardian, pt's mother prefers no IM meds unless absolutely needed. 03/05/22 Pt agrees to Latuda 20 mg daily. Asks to discontinue Sertraline, Lamictal. Guardian prefers no IM meds. 03/06/22 Continue to educate pt regarding treatment for illness. 03/07/22 Cortisone cream for rash on pt's finger. Continue Latuda. Educate, Support. 03/08/22 guarded and difficult to engage; no changes to current treatment plan 03/09/22 START Trazodone 25mg for insomnia Wants to discuss Adderall for concentration. no other changes to current treatment plan 03/11/22 Olanzapine 10 mg bid prn psychotic agitation. 03/13/22 Discharge planning. Pt not wanting further treatment 03/14/22 DC Trazodone 03/15: Continue current regimen and plans 03/16: Continue current plans and regimen 03/17/22 Pt continues to decline treatment. Team meeting to discuss discharge. I spent minutes with the patient and/or on the patient floor today, greater than?50% of which was spent counseling/coordinating care. Informed Consent: further education needed Reason for contiued inpatient stay Substantial Risk for: inability to function and rapid decompensation
[2022-03-17 22:45] VITALS: BP 101/76; PULSE 95; TEMP 36.6; O2SAT 98
[2022-03-17] MEDS: Lurasidone HCl 20 MG TABLET PO (23:03)
[2022-03-17] MEDS: Melatonin 3 MG TABLET 9 MG PO (23:03)
[2022-03-18 06:38] VITALS: BP 121/76; PULSE 74; RESP 14; TEMP 36.5; O2SAT 100
[2022-03-18] MEDS: Multivitamin TABLET 1 TAB PO (08:56)
[2022-03-18] MEDS: Calcium + Vitamin D 250 MG TABLET PO (08:56)
[2022-03-18] MEDS: Benztropine Mesylate 0.5 MG TABLET 1.5 MG PO ×2 (08:56→22:24)
[2022-03-18] MEDS: Nicotine Polacrilex 2 MG GUM BUCCAL ×5 (09:24→22:25)
[2022-03-18] MEDS: Magnesium Citrate 300 ML SOLUTION PO (12:39)
[2022-03-18 18:00] VITALS: BP 141/65; PULSE 82; RESP 16; TEMP 36.6; O2SAT 98
--- NOTE | 2022-03-18 18:31 | P.PNPSI_ITS ---
Subjective Subjective Date of Service: 03/18/22 Reason For Visit: Psychosis Subjective Notes: Conditional Voluntary Healthcare Proxy: No Guardianship: Yes Medical Problems Affecting Mental Status: No Interim History: Discussion with Desi regarding symptoms and medications. Current dosing that pt is accepting is not covering symptoms. Pt cried, screamed, expressed intense anger. She asked tw to leave. She took a moment to calm, asked that we reconveine and expressed frustration with the living situation, where she is in her life in relation to peers, her perceptions of future options, and her anger and frustration that I am always mad at everyone who I know cares for me and wants a good life for me . That is not right-I know my mother cares, I know all the staff here cares, and I treat everyone bad. Discussed Olanzapine and Latuda. Pt asks that we begin to retitrate Latuda as it has been effective at a moderate dose in the past, pt adding, I know the cocaine does not help the medicine work better. I know I need to get it together and have treatment. Will increase Latuda to 40 mg this evening. Medication Compliance: Yes Side effects from medications: No Attending Groups: Intermittent Review of Systems Acute medical concerns: No Medical Review of Systems: unchanged Review of Systems Reports behavioral changes Psychiatric: Reports anxiety, Reports behavioral changes, Reports change in appetite, Reports difficulty concentrating, Reports hopelessness, Reports irritability, Reports anhedonia, Reports mood swings and Reports paranoia Mental Status Exam Mental Status Exam Patient Appearance: Disheveled Patient Orientation: Person, Place, Time and Situation Level of Consciousness: Alert Patient Behavior: Guarded, Talkative, Suspicious, Aggressive (verbally), Restless, Belligerent, Swearing, Anxious, Fearful, Resistive to Care, Avoidant, Distractible, Isolative, Good Eye Contact and Impulsive Mood Description: Anxious, Labile, Angry and Sad Affect Description: Labile Patient Cognition Impaired: Yes Ability to Follow Directions: Fair Speech Pattern: Spontaneous Speech Memory Description: Episodic Impaired Delusions: Paranoid Ideation Perceptual Disturbances: Depersonalization and Derealization Thought Process: Illogical and Rumination Thought Content: positive for Obsessional Thoughts, positive for Circumstantial, positive for Perseveration, positive for Preoccupation and positive for Thought Blocking Depressive Symptoms: Diff. Making Decisions, Increased Irritability, Changes in Appetite, Feelings of Worthlessness, Hopelessness, Isolating-Friends/Family, Unhappiness, Low Self Esteem, Loss of Energy and Difficulty Concentrating Abnormal Motor Activity Signs and Symptoms: Agitation Judgement: Poor Diagnostics Vital Signs (24Hr): Vital Signs - 24 hr 03/17/22 22:45 03/18/22 06:38 Temperature 97.8 F 97.7 F Pulse Rate 95 74 Respiratory Rate 14 Blood Pressure 101/76 121/76 Pulse Oximetry 98 100 Oxygen Delivery Method Room Air Room Air BMI result Body Mass Index 22.6 Labs Results: 02/21/22 16:26 02/21/22 16:26 Labs: Laboratory Results - last 48 hr 03/15/22 03/15/22 07:20 07:20 T.pallidum Ab (EIA) Nonreactive HIV 1&2 Ab/P24 Ag 4thGn Nonreactive Medications Medications Current Medications Acetaminophen (Acetaminophen 325 Mg Tablet) 650 mg PO Q6H PRN PRN Reason: Headache/Pain Mild Scale (1-3) Last Admin: 03/01/22 07:05 Dose: 650 mg Al Hydroxide/Mg Hydroxide (Magnesium Hydrox/Alum Hydrox 30 Ml Oral.Susp) 30 ml PO Q6H PRN PRN Reason: Heartburn/Nausea Albuterol Sulfate (Albuterol Sulfate 90 Mcg 8 Gm Inhaler) 2 puff INHALE QID PRN PRN Reason: shortness of breath or wheezing Benztropine Mesylate (Benztropine Mesylate 0.5 Mg Tablet) 1.5 mg PO BID [facility] Last Admin: 03/18/22 08:56 Dose: 1.5 mg Calcium Carbonate/Cholecalciferol (Calcium + Vitamin D 250 Mg Tablet) 250 mg PO DAILY [facility] Last Admin: 03/18/22 08:56 Dose: 250 mg Diphenhydramine HCl (Diphenhydramine Hcl 25 Mg Tablet) 25 mg PO DAILY PRN PRN Reason: DYSTONIA Last Admin: 03/07/22 23:50 Dose: 25 mg Hydrocortisone (Hydrocortisone 1 % Cream 28.35 Gm Tube) 1 appl TOPICAL BID PRN; Protocol PRN Reason: skin breakdown between fingers Last Admin: 03/14/22 09:20 Dose: 1 appl Hydroxyzine HCl (Hydroxyzine Hcl 25 Mg Tablet) 25 mg PO TID PRN PRN Reason: ANXIETY/SLEEP Last Admin: 03/07/22 23:50 Dose: 25 mg Lurasidone HCl (Lurasidone Hcl 40 Mg Tablet) 40 mg PO BEDTIME [facility] Magnesium Hydroxide (Milk Of Magnesia 30 Ml Oral.Susp) 30 ml PO DAILY PRN PRN Reason: Constipation Melatonin (Melatonin 3 Mg Tablet) 9 mg PO BEDTIME [facility] Last Admin: 03/17/22 23:03 Dose: 9 mg Multivitamins/Vitamin C (Multivitamin Tablet) 1 tab PO DAILY [facility] Last Admin: 03/18/22 08:56 Dose: 1 tab Nicotine Polacrilex (Nicotine Polacrilex 2 Mg Gum) 2 mg BUCCAL Q2H PRN PRN Reason: Nicotine Cravings Last Admin: 03/18/22 18:11 Dose: 2 mg Olanzapine (Olanzapine 10 Mg Tablet) 10 mg PO BID PRN PRN Reason: psychotic agitation Polyethylene Glycol (Polyethylene Glycol 3350 17 Gm Powd.Pack) 17 gm PO DAILY PRN PRN Reason: constipation Allergies Allergies Allergy/AdvReac Type Severity Reaction Status Date / Time aripiprazole [Abilify] Allergy Unknown tongue Verified 03/04/22 10:00 swells and gain weight risperidone [From Risperdal] AdvReac Unknown gain Verified 03/04/22 10:00 weight, and slurred speech cariprazine [From Vraylar] AdvReac Verified 12/19/21 14:42 haloperidol [From Haldol] AdvReac DYSTONIA Verified 02/21/22 18:22 paliperidone AdvReac dystonia Verified 12/19/21 14:42 trazodone AdvReac DYSTONIA Verified 02/21/22 18:23 Assessment & Plan Assessment & Plan (1) Schizoaffective disorder, depressive type: Status: Acute Code(s): F25.1 - Schizoaffective disorder, depressive type Plan Patient with reported schizoaffective depressive ilness admitted with concerns regarding ability to care for self, paranoia, suicidal thoughts off medications for 2 weeks. - Admit for safety - Milieu therapy - DC planning Regarding medications will restart Latuda 80 mg, Zoloft 50 mg, trazodone 150 mg. Will restart Lamictal at 25 mg as it appears she has been off his for the best part of 2 weeks. Will also try to clarify Haldol adverse effect of dystonia in context of patient being discharged on same in September 2021. 02/23/2022: No changes to current regimen. Did clarify dystonic reactions in the past 02/24/2022: No changes to current regimen 02/26/22: Meeting with mother and OP team 02/28/22. Continue current regime. 02/28/22: Prolixin 1 mg daily to augment Latuda May need Section 02/28 if pt begins to refuse medications. 03/01/22 no changes to medication regimen 03/02/22 refused to take medications; not eating. Patient's roommate reported that in the past few days when she was given medications she would go to her room and throw it up. 03/03/22 Continues to refuse medications. Guardian, pt's mother prefers no IM meds unless absolutely needed. 03/05/22 Pt agrees to Latuda 20 mg daily. Asks to discontinue Sertraline, Lamictal. Guardian prefers no IM meds. 03/06/22 Continue to educate pt regarding treatment for illness. 03/07/22 Cortisone cream for rash on pt's finger. Continue Latuda. Educate, Support. 03/08/22 guarded and difficult to engage; no changes to current treatment plan 03/09/22 START Trazodone 25mg for insomnia Wants to discuss Adderall for concentration. no other changes to current treatment plan 03/11/22 Olanzapine 10 mg bid prn psychotic agitation. 03/13/22 Discharge planning. Pt not wanting further treatment 03/14/22 DC Trazodone 03/15: Continue current regimen and plans 03/16: Continue current plans and regimen 03/17/22 Pt continues to decline treatment. Team meeting to discuss discharge. 03/18/22 Increase Latuda to 40 mg. Pt agrees to treat current symptoms. I spent minutes with the patient and/or on the patient floor today, greater than?50% of which was spent counseling/coordinating care. Patient educated on: medication risk/benefits and therapeutic strategies Informed Consent: further education needed Reason for contiued inpatient stay Substantial Risk for: harm to self, inability to function and rapid decompensation
[2022-03-18] MEDS: Melatonin 3 MG TABLET 9 MG PO (22:23)
[2022-03-18] MEDS: Lurasidone HCl 40 MG TABLET PO (22:25)
[2022-03-19] MEDS: Calcium + Vitamin D 250 MG TABLET PO (10:23)
[2022-03-19] MEDS: Multivitamin TABLET 1 TAB PO (10:23)
[2022-03-19] MEDS: Benztropine Mesylate 0.5 MG TABLET 1.5 MG PO ×2 (10:24→22:33)
[2022-03-19] MEDS: Nicotine Polacrilex 2 MG GUM BUCCAL ×3 (12:40→19:28)
[2022-03-19] MEDS: polyethylene glycoL 3350 17 GM POWD.PACK PO (15:03)
--- NOTE | 2022-03-19 17:13 | HO.PSYCHPN ---
Subjective Subjective Date of Service: 03/19/22 Reason For Visit: Psychosis Subjective Notes: Conditional Voluntary Guardianship: Yes Interim History: Patient withdrawn passive flat isolative to her room has been taking Latuda no insight regarding medication Generally appears internally preoccupied Review of Systems Medical Review of Systems: unchanged Mental Status Exam Mental Status Exam Patient Appearance: Well Grooomed Patient Orientation: Person, Place, Time and Situation Level of Consciousness: Alert Patient Behavior: Guarded, Suspicious, Anxious, Avoidant, Distractible and Isolative Mood Description: Anxious, Labile, Flat and Sad Affect Description: Withdrawn, Depressed and Flat Patient Cognition Impaired: Yes Ability to Follow Directions: Fair Speech Pattern: Spontaneous Speech Memory Description: Episodic Impaired Delusions: Paranoid Ideation Perceptual Disturbances: Depersonalization and Derealization Thought Process: Illogical and Rumination Thought Content: positive for Circumstantial, positive for Preoccupation and positive for Thought Blocking Depressive Symptoms: Diff. Making Decisions, Changes in Appetite, Feelings of Worthlessness, Hopelessness, Isolating-Friends/Family, Unhappiness, Low Self Esteem, Loss of Energy and Difficulty Concentrating Abnormal Motor Activity Signs and Symptoms: Agitation Judgement: Poor Diagnostics Vital Signs (24Hr): Vital Signs - 24 hr 03/19/22 21:20 03/20/22 06:00 Temperature 98.8 F 98.7 F Pulse Rate 72 78 Respiratory Rate 15 Blood Pressure 101/69 99/54 L Pulse Oximetry 97 98 Oxygen Delivery Method Room Air Room Air BMI result Body Mass Index 22.1 Labs Results: 02/21/22 16:26 02/21/22 16:26 Medications Medications Current Medications Acetaminophen (Acetaminophen 325 Mg Tablet) 650 mg PO Q6H PRN PRN Reason: Headache/Pain Mild Scale (1-3) Last Admin: 03/01/22 07:05 Dose: 650 mg Al Hydroxide/Mg Hydroxide (Magnesium Hydrox/Alum Hydrox 30 Ml Oral.Susp) 30 ml PO Q6H PRN PRN Reason: Heartburn/Nausea Albuterol Sulfate (Albuterol Sulfate 90 Mcg 8 Gm Inhaler) 2 puff INHALE QID PRN PRN Reason: shortness of breath or wheezing Benztropine Mesylate (Benztropine Mesylate 0.5 Mg Tablet) 1.5 mg PO BID [facility] Last Admin: 03/20/22 08:57 Dose: 1.5 mg Calcium Carbonate/Cholecalciferol (Calcium + Vitamin D 250 Mg Tablet) 250 mg PO DAILY [facility] Last Admin: 03/20/22 08:57 Dose: 250 mg Diphenhydramine HCl (Diphenhydramine Hcl 25 Mg Tablet) 25 mg PO DAILY PRN PRN Reason: DYSTONIA Last Admin: 03/07/22 23:50 Dose: 25 mg Hydrocortisone (Hydrocortisone 1 % Cream 28.35 Gm Tube) 1 appl TOPICAL BID PRN; Protocol PRN Reason: skin breakdown between fingers Last Admin: 03/14/22 09:20 Dose: 1 appl Hydroxyzine HCl (Hydroxyzine Hcl 25 Mg Tablet) 25 mg PO TID PRN PRN Reason: ANXIETY/SLEEP Last Admin: 03/07/22 23:50 Dose: 25 mg Lurasidone HCl (Lurasidone Hcl 40 Mg Tablet) 40 mg PO BEDTIME [facility] Last Admin: 03/19/22 22:20 Dose: 40 mg Magnesium Hydroxide (Milk Of Magnesia 30 Ml Oral.Susp) 30 ml PO DAILY PRN PRN Reason: Constipation Melatonin (Melatonin 3 Mg Tablet) 9 mg PO BEDTIME [facility] Last Admin: 03/19/22 22:20 Dose: 9 mg Multivitamins/Vitamin C (Multivitamin Tablet) 1 tab PO DAILY [facility] Last Admin: 03/20/22 08:57 Dose: 1 tab Nicotine Polacrilex (Nicotine Polacrilex 2 Mg Gum) 2 mg BUCCAL Q2H PRN PRN Reason: Nicotine Cravings Last Admin: 03/20/22 15:39 Dose: 2 mg Olanzapine (Olanzapine 10 Mg Tablet) 10 mg PO BID PRN PRN Reason: psychotic agitation Polyethylene Glycol (Polyethylene Glycol 3350 17 Gm Powd.Pack) 17 gm PO DAILY PRN PRN Reason: constipation Last Admin: 03/19/22 15:03 Dose: 17 gm Allergies Allergies Allergy/AdvReac Type Severity Reaction Status Date / Time aripiprazole [Abilify] Allergy Unknown tongue Verified 03/04/22 10:00 swells and gain weight risperidone [From Risperdal] AdvReac Unknown gain Verified 03/04/22 10:00 weight, and slurred speech cariprazine [From Vraylar] AdvReac Verified 12/19/21 14:42 haloperidol [From Haldol] AdvReac DYSTONIA Verified 02/21/22 18:22 paliperidone AdvReac dystonia Verified 12/19/21 14:42 trazodone AdvReac DYSTONIA Verified 02/21/22 18:23 Assessment & Plan Assessment & Plan (1) Schizoaffective disorder, depressive type: Status: Acute Code(s): F25.1 - Schizoaffective disorder, depressive type Plan Patient with reported schizoaffective depressive ilness admitted with concerns regarding ability to care for self, paranoia, suicidal thoughts off medications for 2 weeks. - Admit for safety - Milieu therapy - DC planning Regarding medications will restart Latuda 80 mg, Zoloft 50 mg, trazodone 150 mg. Will restart Lamictal at 25 mg as it appears she has been off his for the best part of 2 weeks. Will also try to clarify Haldol adverse effect of dystonia in context of patient being discharged on same in September 2021. 02/23/2022: No changes to current regimen. Did clarify dystonic reactions in the past 02/24/2022: No changes to current regimen 02/26/22: Meeting with mother and OP team 02/28/22. Continue current regime. 02/28/22: Prolixin 1 mg daily to augment Latuda May need Section 02/28 if pt begins to refuse medications. 03/01/22 no changes to medication regimen 03/02/22 refused to take medications; not eating. Patient's roommate reported that in the past few days when she was given medications she would go to her room and throw it up. 03/03/22 Continues to refuse medications. Guardian, pt's mother prefers no IM meds unless absolutely needed. 03/05/22 Pt agrees to Latuda 20 mg daily. Asks to discontinue Sertraline, Lamictal. Guardian prefers no IM meds. 03/06/22 Continue to educate pt regarding treatment for illness. 03/07/22 Cortisone cream for rash on pt's finger. Continue Latuda. Educate, Support. 03/08/22 guarded and difficult to engage; no changes to current treatment plan 03/09/22 START Trazodone 25mg for insomnia Wants to discuss Adderall for concentration. no other changes to current treatment plan 03/11/22 Olanzapine 10 mg bid prn psychotic agitation. 03/13/22 Discharge planning. Pt not wanting further treatment 03/14/22 DC Trazodone 03/15: Continue current regimen and plans 03/16: Continue current plans and regimen 03/17/22 Pt continues to decline treatment. Team meeting to discuss discharge. 03/18/22 Increase Latuda to 40 mg. Pt agrees to treat current symptoms. 03/19/2022 Continue Latuda discharge planning patient seen case reviewed treatment team I spent minutes with the patient and/or on the patient floor today, greater than?50% of which was spent counseling/coordinating care. Reason for contiued inpatient stay Substantial Risk for: inability to function and rapid decompensation
[2022-03-19 21:20] VITALS: BP 101/69; PULSE 72; TEMP 37.1; O2SAT 97
[2022-03-19] MEDS: Melatonin 3 MG TABLET 9 MG PO (22:20)
[2022-03-19] MEDS: Lurasidone HCl 40 MG TABLET PO (22:20)
[2022-03-20 06:00] VITALS: BP 99/54; PULSE 78; RESP 15; TEMP 37.1; O2SAT 98
[2022-03-20 07:00] VITALS: BMI 22.1
[2022-03-20] MEDS: Benztropine Mesylate 0.5 MG TABLET 1.5 MG PO ×2 (08:57→21:03)
[2022-03-20] MEDS: Calcium + Vitamin D 250 MG TABLET PO (08:57)
[2022-03-20] MEDS: Multivitamin TABLET 1 TAB PO (08:57)
[2022-03-20] MEDS: Nicotine Polacrilex 2 MG GUM BUCCAL ×3 (12:08→18:27)
--- NOTE | 2022-03-20 16:15 | P.PNPSI_ITS ---
Subjective Subjective Date of Service: 03/20/22 Reason For Visit: Psychosis Subjective Notes: Conditional Voluntary Guardianship: Yes Medical Problems Affecting Mental Status: No Interim History: Pt continues with auditory perceptual alterations. Preparing for OP Residential team meeting on 03/21. Mood is labilie-episodes of screaming anger at times. Pt has been offered a stay with [facility] which she has declined. Currently no interest in treatment, moving forward or participating in a plan of care. Denies SE of increase in Latuda. Dismissive when approached- I don't need you-I need Adderall. Medication Compliance: Yes Side effects from medications: Yes (reports sedation) Attending Groups: Intermittent Review of Systems Acute medical concerns: No Medical Review of Systems: unchanged Review of Systems Psychiatric: Reports depression and Reports irritability Mental Status Exam Mental Status Exam Patient Appearance: Disheveled Patient Orientation: Person, Place, Time and Situation Level of Consciousness: Alert Patient Behavior: Guarded, Talkative, Suspicious, Aggressive (verbally), Restless, Belligerent, Swearing, Anxious, Fearful, Resistive to Care, Avoidant, Distractible, Isolative, Good Eye Contact and Impulsive Mood Description: Anxious, Labile, Angry and Sad Affect Description: Labile Patient Cognition Impaired: Yes Ability to Follow Directions: Fair Speech Pattern: Spontaneous Speech Memory Description: Episodic Impaired Delusions: Paranoid Ideation Perceptual Disturbances: Depersonalization and Derealization Thought Process: Illogical and Rumination Thought Content: positive for Obsessional Thoughts, positive for Circumstantial, positive for Perseveration, positive for Preoccupation and positive for Thought Blocking Depressive Symptoms: Diff. Making Decisions, Increased Irritability, Changes in Appetite, Feelings of Worthlessness, Hopelessness, Isolating-Friends/Family, Unhappiness, Low Self Esteem, Loss of Energy and Difficulty Concentrating Abnormal Motor Activity Signs and Symptoms: Agitation Judgement: Poor Diagnostics Vital Signs (24Hr): Vital Signs - 24 hr 03/19/22 21:20 03/20/22 06:00 Temperature 98.8 F 98.7 F Pulse Rate 72 78 Respiratory Rate 15 Blood Pressure 101/69 99/54 L Pulse Oximetry 97 98 Oxygen Delivery Method Room Air Room Air BMI result Body Mass Index 22.1 Labs Results: 02/21/22 16:26 02/21/22 16:26 Medications Medications Current Medications Acetaminophen (Acetaminophen 325 Mg Tablet) 650 mg PO Q6H PRN PRN Reason: Headache/Pain Mild Scale (1-3) Last Admin: 03/01/22 07:05 Dose: 650 mg Al Hydroxide/Mg Hydroxide (Magnesium Hydrox/Alum Hydrox 30 Ml Oral.Susp) 30 ml PO Q6H PRN PRN Reason: Heartburn/Nausea Albuterol Sulfate (Albuterol Sulfate 90 Mcg 8 Gm Inhaler) 2 puff INHALE QID PRN PRN Reason: shortness of breath or wheezing Benztropine Mesylate (Benztropine Mesylate 0.5 Mg Tablet) 1.5 mg PO BID [facility] Last Admin: 03/20/22 08:57 Dose: 1.5 mg Calcium Carbonate/Cholecalciferol (Calcium + Vitamin D 250 Mg Tablet) 250 mg PO DAILY [facility] Last Admin: 03/20/22 08:57 Dose: 250 mg Diphenhydramine HCl (Diphenhydramine Hcl 25 Mg Tablet) 25 mg PO DAILY PRN PRN Reason: DYSTONIA Last Admin: 03/07/22 23:50 Dose: 25 mg Hydrocortisone (Hydrocortisone 1 % Cream 28.35 Gm Tube) 1 appl TOPICAL BID PRN; Protocol PRN Reason: skin breakdown between fingers Last Admin: 03/14/22 09:20 Dose: 1 appl Hydroxyzine HCl (Hydroxyzine Hcl 25 Mg Tablet) 25 mg PO TID PRN PRN Reason: ANXIETY/SLEEP Last Admin: 03/07/22 23:50 Dose: 25 mg Lurasidone HCl (Lurasidone Hcl 40 Mg Tablet) 40 mg PO BEDTIME [facility] Last Admin: 03/19/22 22:20 Dose: 40 mg Magnesium Hydroxide (Milk Of Magnesia 30 Ml Oral.Susp) 30 ml PO DAILY PRN PRN Reason: Constipation Melatonin (Melatonin 3 Mg Tablet) 9 mg PO BEDTIME [facility] Last Admin: 03/19/22 22:20 Dose: 9 mg Multivitamins/Vitamin C (Multivitamin Tablet) 1 tab PO DAILY [facility] Last Admin: 03/20/22 08:57 Dose: 1 tab Nicotine Polacrilex (Nicotine Polacrilex 2 Mg Gum) 2 mg BUCCAL Q2H PRN PRN Reason: Nicotine Cravings Last Admin: 03/20/22 15:39 Dose: 2 mg Olanzapine (Olanzapine 10 Mg Tablet) 10 mg PO BID PRN PRN Reason: psychotic agitation Polyethylene Glycol (Polyethylene Glycol 3350 17 Gm Powd.Pack) 17 gm PO DAILY PRN PRN Reason: constipation Last Admin: 03/19/22 15:03 Dose: 17 gm Allergies Allergies Allergy/AdvReac Type Severity Reaction Status Date / Time aripiprazole [Abilify] Allergy Unknown tongue Verified 03/04/22 10:00 swells and gain weight risperidone [From Risperdal] AdvReac Unknown gain Verified 03/04/22 10:00 weight, and slurred speech cariprazine [From Vraylar] AdvReac Verified 12/19/21 14:42 haloperidol [From Haldol] AdvReac DYSTONIA Verified 02/21/22 18:22 paliperidone AdvReac dystonia Verified 12/19/21 14:42 trazodone AdvReac DYSTONIA Verified 02/21/22 18:23 Assessment & Plan Assessment & Plan (1) Schizoaffective disorder, depressive type: Status: Acute Code(s): F25.1 - Schizoaffective disorder, depressive type Plan Patient with reported schizoaffective depressive ilness admitted with concerns regarding ability to care for self, paranoia, suicidal thoughts off medications for 2 weeks. - Admit for safety - Milieu therapy - DC planning Regarding medications will restart Latuda 80 mg, Zoloft 50 mg, trazodone 150 mg. Will restart Lamictal at 25 mg as it appears she has been off his for the best part of 2 weeks. Will also try to clarify Haldol adverse effect of dystonia in context of patient being discharged on same in September 2021. 02/23/2022: No changes to current regimen. Did clarify dystonic reactions in the past 02/24/2022: No changes to current regimen 02/26/22: Meeting with mother and OP team 02/28/22. Continue current regime. 02/28/22: Prolixin 1 mg daily to augment Latuda May need Section 02/28 if pt begins to refuse medications. 03/01/22 no changes to medication regimen 03/02/22 refused to take medications; not eating. Patient's roommate reported that in the past few days when she was given medications she would go to her room and throw it up. 03/03/22 Continues to refuse medications. Guardian, pt's mother prefers no IM meds unless absolutely needed. 03/05/22 Pt agrees to Latuda 20 mg daily. Asks to discontinue Sertraline, Lamictal. Guardian prefers no IM meds. 03/06/22 Continue to educate pt regarding treatment for illness. 03/07/22 Cortisone cream for rash on pt's finger. Continue Latuda. Educate, Support. 03/08/22 guarded and difficult to engage; no changes to current treatment plan 03/09/22 START Trazodone 25mg for insomnia Wants to discuss Adderall for concentration. no other changes to current treatment plan 03/11/22 Olanzapine 10 mg bid prn psychotic agitation. 03/13/22 Discharge planning. Pt not wanting further treatment 03/14/22 DC Trazodone 03/15: Continue current regimen and plans 03/16: Continue current plans and regimen 03/17/22 Pt continues to decline treatment. Team meeting to discuss discharge. 03/18/22 Increase Latuda to 40 mg. Pt agrees to treat current symptoms. 03/20/22 Tolerating Latuda increase. Team meeting 03/21/22. I spent minutes with the patient and/or on the patient floor today, greater than?50% of which was spent counseling/coordinating care. Patient educated on: medication risk/benefits, therapeutic strategies and other Informed Consent: further education needed Reason for contiued inpatient stay Substantial Risk for: harm to self, inability to function and rapid decompensation
[2022-03-20] MEDS: Melatonin 3 MG TABLET 9 MG PO (21:03)
[2022-03-20] MEDS: Lurasidone HCl 40 MG TABLET PO (21:03)
[2022-03-21] MEDS: Benztropine Mesylate 0.5 MG TABLET 1.5 MG PO ×2 (11:57→20:53)
[2022-03-21] MEDS: Calcium + Vitamin D 250 MG TABLET PO (11:57)
[2022-03-21] MEDS: Nicotine Polacrilex 2 MG GUM BUCCAL ×4 (11:57→18:37)
[2022-03-21] MEDS: Multivitamin TABLET 1 TAB PO (11:57)
[2022-03-21 16:11] VITALS: BP 102/55; PULSE 93; TEMP 37; O2SAT 98
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
--- NOTE | 2022-03-21 18:55 | P.PNPSI_ITS ---
Subjective Subjective Date of Service: 03/21/22 Reason For Visit: Psychosis Subjective Notes: Conditional Voluntary Guardianship: Yes Interim History: Residential/OP Team meeting today. Pt came away from this with anger, not wanting to discuss outcome. Again looking for Adderall from team. Confronting team about why this is not given to her. Team reports 3lb weight loss since admission. Pt currently not wanting any options which are presented. Wanting to reverse guardianship and live independently. No insight into her lack of capability in several areas and of poor judgment. Shares with team today that last week she took an Adderall given to her by a peer. No insight as to the risk of her actions. Expressing anger Medication Compliance: Yes Side effects from medications: No Attending Groups: Intermittent Review of Systems Acute medical concerns: No Constipation- GI consult ordered. This was referred by GI to hospitalist services. Medical Review of Systems: unchanged Review of Systems Reports behavioral changes Psychiatric: Reports behavioral changes, Reports auditory hallucinations, Reports irritability, Reports anhedonia, Reports mood swings and Reports paranoia Mental Status Exam Mental Status Exam Patient Appearance: Well Grooomed Patient Orientation: Person, Place, Time and Situation Level of Consciousness: Alert Patient Behavior: Guarded, Suspicious, Anxious, Avoidant, Distractible and Isolative Mood Description: Anxious, Labile, Flat and Sad Affect Description: Withdrawn, Depressed and Flat Patient Cognition Impaired: Yes Ability to Follow Directions: Fair Speech Pattern: Spontaneous Speech Memory Description: Episodic Impaired Delusions: Paranoid Ideation Perceptual Disturbances: Depersonalization and Derealization Thought Process: Illogical and Rumination Thought Content: positive for Circumstantial, positive for Preoccupation and positive for Thought Blocking Depressive Symptoms: Diff. Making Decisions, Changes in Appetite, Feelings of Worthlessness, Hopelessness, Isolating-Friends/Family, Unhappiness, Low Self Esteem, Loss of Energy and Difficulty Concentrating Abnormal Motor Activity Signs and Symptoms: Agitation Judgement: Poor Diagnostics Vital Signs (24Hr): Vital Signs - 24 hr 03/21/22 16:11 Temperature 98.6 F Pulse Rate 93 Blood Pressure 102/55 L Pulse Oximetry 98 BMI result Body Mass Index 22.1 Labs Results: 02/21/22 16:26 02/21/22 16:26 Medications Medications Current Medications Acetaminophen (Acetaminophen 325 Mg Tablet) 650 mg PO Q6H PRN PRN Reason: Headache/Pain Mild Scale (1-3) Last Admin: 03/01/22 07:05 Dose: 650 mg Al Hydroxide/Mg Hydroxide (Magnesium Hydrox/Alum Hydrox 30 Ml Oral.Susp) 30 ml PO Q6H PRN PRN Reason: Heartburn/Nausea Albuterol Sulfate (Albuterol Sulfate 90 Mcg 8 Gm Inhaler) 2 puff INHALE QID PRN PRN Reason: shortness of breath or wheezing Benztropine Mesylate (Benztropine Mesylate 0.5 Mg Tablet) 1.5 mg PO BID [facility] Last Admin: 03/21/22 11:57 Dose: 1.5 mg Calcium Carbonate/Cholecalciferol (Calcium + Vitamin D 250 Mg Tablet) 250 mg PO DAILY [facility] Last Admin: 03/21/22 11:57 Dose: 250 mg Diphenhydramine HCl (Diphenhydramine Hcl 25 Mg Tablet) 25 mg PO DAILY PRN PRN Reason: DYSTONIA Last Admin: 03/07/22 23:50 Dose: 25 mg Hydrocortisone (Hydrocortisone 1 % Cream 28.35 Gm Tube) 1 appl TOPICAL BID PRN; Protocol PRN Reason: skin breakdown between fingers Last Admin: 03/14/22 09:20 Dose: 1 appl Hydroxyzine HCl (Hydroxyzine Hcl 25 Mg Tablet) 25 mg PO TID PRN PRN Reason: ANXIETY/SLEEP Last Admin: 03/07/22 23:50 Dose: 25 mg Lurasidone HCl (Lurasidone Hcl 40 Mg Tablet) 40 mg PO BEDTIME [facility] Last Admin: 03/20/22 21:03 Dose: 40 mg Magnesium Hydroxide (Milk Of Magnesia 30 Ml Oral.Susp) 30 ml PO DAILY PRN PRN Reason: Constipation Melatonin (Melatonin 3 Mg Tablet) 9 mg PO BEDTIME [facility] Last Admin: 03/20/22 21:03 Dose: 9 mg Multivitamins/Vitamin C (Multivitamin Tablet) 1 tab PO DAILY [facility] Last Admin: 03/21/22 11:57 Dose: 1 tab Nicotine Polacrilex (Nicotine Polacrilex 2 Mg Gum) 2 mg BUCCAL Q2H PRN PRN Reason: Nicotine Cravings Last Admin: 03/21/22 18:37 Dose: 2 mg Olanzapine (Olanzapine 10 Mg Tablet) 10 mg PO BID PRN PRN Reason: psychotic agitation Polyethylene Glycol (Polyethylene Glycol 3350 17 Gm Powd.Pack) 17 gm PO DAILY [facility] Senna/Docusate Sodium (Sennosides/Docusate Sodium Tablet) 2 tab PO BEDTIME [facility] Sodium Biphosphate/Sodium Phosphate (Sodium Phosphate,[place]-Dibasic 133 Ml Enema) 133 ml [place] ONCE PRN PRN Reason: Constipation Allergies Allergies Allergy/AdvReac Type Severity Reaction Status Date / Time aripiprazole [Abilify] Allergy Unknown tongue Verified 03/04/22 10:00 swells and gain weight risperidone [From Risperdal] AdvReac Unknown gain Verified 03/04/22 10:00 weight, and slurred speech cariprazine [From Vraylar] AdvReac Verified 12/19/21 14:42 haloperidol [From Haldol] AdvReac DYSTONIA Verified 02/21/22 18:22 paliperidone AdvReac dystonia Verified 12/19/21 14:42 trazodone AdvReac DYSTONIA Verified 02/21/22 18:23 Assessment & Plan Assessment & Plan (1) Schizoaffective disorder, depressive type: Status: Acute Code(s): F25.1 - Schizoaffective disorder, depressive type Plan Patient with reported schizoaffective depressive ilness admitted with concerns regarding ability to care for self, paranoia, suicidal thoughts off medications for 2 weeks. - Admit for safety - Milieu therapy - DC planning Regarding medications will restart Latuda 80 mg, Zoloft 50 mg, trazodone 150 mg. Will restart Lamictal at 25 mg as it appears she has been off his for the best part of 2 weeks. Will also try to clarify Haldol adverse effect of dystonia in context of patient being discharged on same in September 2021. 02/23/2022: No changes to current regimen. Did clarify dystonic reactions in the past 02/24/2022: No changes to current regimen 02/26/22: Meeting with mother and OP team 02/28/22. Continue current regime. 02/28/22: Prolixin 1 mg daily to augment Latuda May need Section 02/28 if pt begins to refuse medications. 03/01/22 no changes to medication regimen 03/02/22 refused to take medications; not eating. Patient's roommate reported that in the past few days when she was given medications she would go to her room and throw it up. 03/03/22 Continues to refuse medications. Guardian, pt's mother prefers no IM meds unless absolutely needed. 03/05/22 Pt agrees to Latuda 20 mg daily. Asks to discontinue Sertraline, Lamictal. Guardian prefers no IM meds. 03/06/22 Continue to educate pt regarding treatment for illness. 03/07/22 Cortisone cream for rash on pt's finger. Continue Latuda. Educate, Support. 03/08/22 guarded and difficult to engage; no changes to current treatment plan 03/09/22 START Trazodone 25mg for insomnia Wants to discuss Adderall for concentration. no other changes to current treatment plan 03/11/22 Olanzapine 10 mg bid prn psychotic agitation. 03/13/22 Discharge planning. Pt not wanting further treatment 03/14/22 DC Trazodone 03/15: Continue current regimen and plans 03/16: Continue current plans and regimen 03/17/22 Pt continues to decline treatment. Team meeting to discuss discharge. 03/18/22 Increase Latuda to 40 mg. Pt agrees to treat current symptoms. 03/20/22 Tolerating Latuda increase. Team meeting 03/21/22. 03/21/22 Court 03/25/22 to update Jeancarlos and hear pt's request to terminate guardianship Continue to educate regarding meds, risks of behaviors Prepare for [facility] if approved by the court. I spent minutes with the patient and/or on the patient floor today, greater than?50% of which was spent counseling/coordinating care. Informed Consent: further education needed Reason for contiued inpatient stay Substantial Risk for: harm to self, inability to function and rapid decompensation
[2022-03-21] MEDS: Lurasidone HCl 40 MG TABLET PO (20:53)
[2022-03-21] MEDS: Melatonin 3 MG TABLET 9 MG PO (20:53)
[2022-03-21] MEDS: Sennosides/Docusate Sodium TABLET 2 TAB PO (20:53)
[2022-03-22] MEDS: Nicotine Polacrilex 2 MG GUM BUCCAL ×4 (10:16→21:17)
[2022-03-22] MEDS: Multivitamin TABLET 1 TAB PO (10:16)
[2022-03-22] MEDS: Benztropine Mesylate 0.5 MG TABLET 1.5 MG PO (10:16)
[2022-03-22] MEDS: polyethylene glycoL 3350 17 GM POWD.PACK PO (10:16)
[2022-03-22] MEDS: Calcium + Vitamin D 250 MG TABLET PO (10:16)
[2022-03-22] MEDS: Lurasidone HCl 40 MG TABLET PO (21:16)
[2022-03-22] MEDS: Sennosides/Docusate Sodium TABLET 2 TAB PO (21:17)
[2022-03-22] MEDS: Melatonin 3 MG TABLET 9 MG PO (21:17)
--- NOTE | 2022-03-22 23:21 | HO.PSYCHPN ---
Subjective Subjective Date of Service: 03/22/22 Reason For Visit: Psychosis Subjective Notes: Dejesus Warning Interim History: Patient seen and discussed with team. Patient evaluated today and upon interview pt reports she ate better today, half her meal. Says she is doing good, doing okay. Says she is sleeping okay. Describes lower abdominal pain. Reviewed GI consult, much appreciated. Discussed stopping cogentin due to anticholinergic SE, unclear benefit. Last BM was 2 days ago, denies nausea, says when I eat I throw up a little, thinks its acid reflux, denies diarrhea. Per GI consult:? Patient reports a history of constipation for the past year.? She reports having a bowel movement every few days associated with straining and hard stools Patient is unable to past the stool without digital manipulation. She has been using an enema (? fleet enema) intermittently to facilitate having a bowel movement. She notes passage of some blood with stools after she uses an enema Patient has tried milk of magnesia and Mag citrate in past which caused diarrhea.? She reports using MiraLax which helps intermittently and not all the time.? Didnt use the fleet enema, refused.? Start pt on a regular bowel program with Senna with docusate 2 capsules at bedtime and Miralax once daily- just started 03/21/22 Voices are not bad, painting, about my past and stuff.? In the milieu, patient is safe but isolative in behavior. Denies SI/SIB/HI upon inquiry. Denies irritability or assaultive ideation. Says she feels safe. Medication Compliance: Yes Side effects from medications: No Attending Groups: Intermittent Review of Systems Acute medical concerns: No Medical Review of Systems: unchanged Mental Status Exam Mental Status Exam Narrative: Patient Appearance: Well Grooomed Patient Orientation: Person, Place, Time and Situation Level of Consciousness: Alert Patient Behavior: Guarded, Suspicious, Anxious, Avoidant, Distractible and Isolative Mood Description: Anxious, Labile, Flat and Sad Affect Description: Withdrawn, Depressed and Flat Patient Cognition Impaired: Yes Ability to Follow Directions: Fair Speech Pattern: Spontaneous Speech Memory Description: Episodic Impaired Delusions: Paranoid Ideation Perceptual Disturbances: Depersonalization and Derealization Thought Process: Illogical and Rumination Thought Content: positive for Circumstantial, positive for Preoccupation and positive for Thought Blocking Depressive Symptoms: Diff. Making Decisions, Changes in Appetite, Feelings of Worthlessness, Hopelessness, Isolating-Friends/Family, Unhappiness, Low Self Esteem, Loss of Energy and Difficulty Concentrating Abnormal Motor Activity Signs and Symptoms: Agitation Judgement: Poor Diagnostics Vital Signs (24Hr): BMI result Body Mass Index 22.1 Labs Results: 02/21/22 16:26 02/21/22 16:26 Medications Medications Current Medications Acetaminophen (Acetaminophen 325 Mg Tablet) 650 mg PO Q6H PRN PRN Reason: Headache/Pain Mild Scale (1-3) Last Admin: 03/01/22 07:05 Dose: 650 mg Al Hydroxide/Mg Hydroxide (Magnesium Hydrox/Alum Hydrox 30 Ml Oral.Susp) 30 ml PO Q6H PRN PRN Reason: Heartburn/Nausea Albuterol Sulfate (Albuterol Sulfate 90 Mcg 8 Gm Inhaler) 2 puff INHALE QID PRN PRN Reason: shortness of breath or wheezing Calcium Carbonate/Cholecalciferol (Calcium + Vitamin D 250 Mg Tablet) 250 mg PO DAILY [facility] Last Admin: 03/23/22 09:43 Dose: 250 mg Diphenhydramine HCl (Diphenhydramine Hcl 25 Mg Tablet) 25 mg PO DAILY PRN PRN Reason: DYSTONIA Last Admin: 03/07/22 23:50 Dose: 25 mg Hydrocortisone (Hydrocortisone 1 % Cream 28.35 Gm Tube) 1 appl TOPICAL BID PRN; Protocol PRN Reason: skin breakdown between fingers Last Admin: 03/14/22 09:20 Dose: 1 appl Hydroxyzine HCl (Hydroxyzine Hcl 25 Mg Tablet) 25 mg PO TID PRN PRN Reason: ANXIETY/SLEEP Last Admin: 03/07/22 23:50 Dose: 25 mg Lurasidone HCl (Lurasidone Hcl 40 Mg Tablet) 40 mg PO BEDTIME [facility] Last Admin: 03/22/22 21:16 Dose: 40 mg Magnesium Hydroxide (Milk Of Magnesia 30 Ml Oral.Susp) 30 ml PO DAILY PRN PRN Reason: Constipation Melatonin (Melatonin 3 Mg Tablet) 9 mg PO BEDTIME [facility] Last Admin: 03/22/22 21:17 Dose: 9 mg Multivitamins/Vitamin C (Multivitamin Tablet) 1 tab PO DAILY [facility] Last Admin: 03/23/22 09:43 Dose: 1 tab Nicotine Polacrilex (Nicotine Polacrilex 2 Mg Gum) 2 mg BUCCAL Q2H PRN PRN Reason: Nicotine Cravings Last Admin: 03/23/22 09:43 Dose: 2 mg Olanzapine (Olanzapine 10 Mg Tablet) 10 mg PO BID PRN PRN Reason: psychotic agitation Polyethylene Glycol (Polyethylene Glycol 3350 17 Gm Powd.Pack) 17 gm PO DAILY [facility] Last Admin: 03/23/22 09:43 Dose: 17 gm Senna/Docusate Sodium (Sennosides/Docusate Sodium Tablet) 2 tab PO BEDTIME [facility] Last Admin: 03/22/22 21:17 Dose: 2 tab Sodium Biphosphate/Sodium Phosphate (Sodium Phosphate,[place]-Dibasic 133 Ml Enema) 133 ml [place] ONCE PRN PRN Reason: Constipation Allergies Allergies Allergy/AdvReac Type Severity Reaction Status Date / Time aripiprazole [Abilify] Allergy Unknown tongue Verified 03/04/22 10:00 swells and gain weight risperidone [From Risperdal] AdvReac Unknown gain Verified 03/04/22 10:00 weight, and slurred speech cariprazine [From Vraylar] AdvReac Verified 12/19/21 14:42 haloperidol [From Haldol] AdvReac DYSTONIA Verified 02/21/22 18:22 paliperidone AdvReac dystonia Verified 12/19/21 14:42 trazodone AdvReac DYSTONIA Verified 02/21/22 18:23 Assessment & Plan Assessment & Plan (1) Schizoaffective disorder, depressive type: Status: Acute Code(s): F25.1 - Schizoaffective disorder, depressive type Plan Patient with reported schizoaffective depressive ilness admitted with concerns regarding ability to care for self, paranoia, suicidal thoughts off medications for 2 weeks. - Admit for safety - Milieu therapy - DC planning Regarding medications will restart Latuda 80 mg, Zoloft 50 mg, trazodone 150 mg. Will restart Lamictal at 25 mg as it appears she has been off his for the best part of 2 weeks. Will also try to clarify Haldol adverse effect of dystonia in context of patient being discharged on same in September 2021. 02/23/2022: No changes to current regimen. Did clarify dystonic reactions in the past 02/24/2022: No changes to current regimen 02/26/22: Meeting with mother and OP team 02/28/22. Continue current regime. 02/28/22: Prolixin 1 mg daily to augment Latuda May need Section 02/28 if pt begins to refuse medications. 03/01/22 no changes to medication regimen 03/02/22 refused to take medications; not eating. Patient's roommate reported that in the past few days when she was given medications she would go to her room and throw it up. 03/03/22 Continues to refuse medications. Guardian, pt's mother prefers no IM meds unless absolutely needed. 03/05/22 Pt agrees to Latuda 20 mg daily. Asks to discontinue Sertraline, Lamictal. Guardian prefers no IM meds. 03/06/22 Continue to educate pt regarding treatment for illness. 03/07/22 Cortisone cream for rash on pt's finger. Continue Latuda. Educate, Support. 03/08/22 guarded and difficult to engage; no changes to current treatment plan 03/09/22 START Trazodone 25mg for insomnia Wants to discuss Adderall for concentration. no other changes to current treatment plan 03/11/22 Olanzapine 10 mg bid prn psychotic agitation. 03/13/22 Discharge planning. Pt not wanting further treatment 03/14/22 DC Trazodone 03/15: Continue current regimen and plans 03/16: Continue current plans and regimen 03/17/22 Pt continues to decline treatment. Team meeting to discuss discharge. 03/18/22 Increase Latuda to 40 mg. Pt agrees to treat current symptoms. 03/20/22 Tolerating Latuda increase. Team meeting 03/21/22. 03/21/22 Court 03/25/22 to update Jeancarlos and hear pt's request to terminate guardianship Continue to educate regarding meds, risks of behaviors Prepare for [facility]OTT if approved by the court. 03/22/22 D/C arthur, reviewed GI consult- much appreciated. On miralax now, along with senna/ docusate. I spent minutes with the patient and/or on the patient floor today, greater than?50% of which was spent counseling/coordinating care. Patient educated on: diagnosis, medication risk/benefits and therapeutic strategies Reason for contiued inpatient stay Substantial Risk for: med/psych decompensation
[2022-03-23] MEDS: Calcium + Vitamin D 250 MG TABLET PO (09:43)
[2022-03-23] MEDS: Multivitamin TABLET 1 TAB PO (09:43)
[2022-03-23] MEDS: Nicotine Polacrilex 2 MG GUM BUCCAL ×4 (09:43→18:38)
[2022-03-23] MEDS: polyethylene glycoL 3350 17 GM POWD.PACK PO (09:43)
--- NOTE | 2022-03-23 10:21 | P.PNPSI_ITS ---
Subjective Subjective Date of Service: 03/23/22 Reason For Visit: Psychosis Interim History: Patient seen and discussed with team. Patient evaluated today and upon interview she reports her sleep was okay and today she had a BM without digital stimulation, it was normal this time. Mood is pretty good. Describes that her concentration and focus are getting slower, feels this is recent. Says her meds are good. She presents as distracted and internally preoccupied. In the milieu, patient is safe but often withdran and isolative in behavior. Denies SI/SIB/HI upon inquiry. Medication Compliance: Yes Side effects from medications: No Attending Groups: Intermittent Review of Systems Acute medical concerns: No Medical Review of Systems: unchanged Mental Status Exam Mental Status Exam Narrative: Patient Appearance: Well Grooomed Patient Orientation: Person, Place, Time and Situation Level of Consciousness: Alert Patient Behavior: Guarded, Suspicious, Anxious, Avoidant, Distractible and Isolative Mood Description: Anxious, Labile, Flat and Sad Affect Description: Withdrawn, Depressed and Flat Patient Cognition Impaired: Yes Ability to Follow Directions: Fair Speech Pattern: Spontaneous Speech Memory Description: Episodic Impaired Delusions: Paranoid Ideation Perceptual Disturbances: Depersonalization and Derealization Thought Process: Illogical and Rumination Thought Content: positive for Circumstantial, positive for Preoccupation and positive for Thought Blocking Depressive Symptoms: Diff. Making Decisions, Changes in Appetite, Feelings of Worthlessness, Hopelessness, Isolating-Friends/Family, Unhappiness, Low Self E steem, Loss of Energy and Difficulty Concentrating Abnormal Motor Activity Signs and Symptoms: Agitation Judgement: Poor Diagnostics Vital Signs (24Hr): BMI result Body Mass Index 22.1 Labs Results: 02/21/22 16:26 02/21/22 16:26 Medications Medications Current Medications Acetaminophen (Acetaminophen 325 Mg Tablet) 650 mg PO Q6H PRN PRN Reason: Headache/Pain Mild Scale (1-3) Last Admin: 03/01/22 07:05 Dose: 650 mg Al Hydroxide/Mg Hydroxide (Magnesium Hydrox/Alum Hydrox 30 Ml Oral.Susp) 30 ml PO Q6H PRN PRN Reason: Heartburn/Nausea Albuterol Sulfate (Albuterol Sulfate 90 Mcg 8 Gm Inhaler) 2 puff INHALE QID PRN PRN Reason: shortness of breath or wheezing Calcium Carbonate/Cholecalciferol (Calcium + Vitamin D 250 Mg Tablet) 250 mg PO DAILY [facility] Last Admin: 03/23/22 09:43 Dose: 250 mg Diphenhydramine HCl (Diphenhydramine Hcl 25 Mg Tablet) 25 mg PO DAILY PRN PRN Reason: DYSTONIA Last Admin: 03/07/22 23:50 Dose: 25 mg Hydrocortisone (Hydrocortisone 1 % Cream 28.35 Gm Tube) 1 appl TOPICAL BID PRN; Protocol PRN Reason: skin breakdown between fingers Last Admin: 03/14/22 09:20 Dose: 1 appl Hydroxyzine HCl (Hydroxyzine Hcl 25 Mg Tablet) 25 mg PO TID PRN PRN Reason: ANXIETY/SLEEP Last Admin: 03/07/22 23:50 Dose: 25 mg Lurasidone HCl (Lurasidone Hcl 40 Mg Tablet) 40 mg PO BEDTIME [facility] Last Admin: 03/22/22 21:16 Dose: 40 mg Magnesium Hydroxide (Milk Of Magnesia 30 Ml Oral.Susp) 30 ml PO DAILY PRN PRN Reason: Constipation Melatonin (Melatonin 3 Mg Tablet) 9 mg PO BEDTIME [facility] Last Admin: 03/22/22 21:17 Dose: 9 mg Multivitamins/Vitamin C (Multivitamin Tablet) 1 tab PO DAILY [facility] Last Admin: 03/23/22 09:43 Dose: 1 tab Nicotine Polacrilex (Nicotine Polacrilex 2 Mg Gum) 2 mg BUCCAL Q2H PRN PRN Reason: Nicotine Cravings Last Admin: 03/23/22 09:43 Dose: 2 mg Olanzapine (Olanzapine 10 Mg Tablet) 10 mg PO BID PRN PRN Reason: psychotic agitation Polyethylene Glycol (Polyethylene Glycol 3350 17 Gm Powd.Pack) 17 gm PO DAILY [facility] Last Admin: 03/23/22 09:43 Dose: 17 gm Senna/Docusate Sodium (Sennosides/Docusate Sodium Tablet) 2 tab PO BEDTIME [facility] Last Admin: 03/22/22 21:17 Dose: 2 tab Sodium Biphosphate/Sodium Phosphate (Sodium Phosphate,[place]-Dibasic 133 Ml Enema) 133 ml [place] ONCE PRN PRN Reason: Constipation Allergies Allergies Allergy/AdvReac Type Severity Reaction Status Date / Time aripiprazole [Abilify] Allergy Unknown tongue Verified 03/04/22 10:00 swells and gain weight risperidone [From Risperdal] AdvReac Unknown gain Verified 03/04/22 10:00 weight, and slurred speech cariprazine [From Vraylar] AdvReac Verified 12/19/21 14:42 haloperidol [From Haldol] AdvReac DYSTONIA Verified 02/21/22 18:22 paliperidone AdvReac dystonia Verified 12/19/21 14:42 trazodone AdvReac DYSTONIA Verified 02/21/22 18:23 Assessment & Plan Assessment & Plan (1) Schizoaffective disorder, depressive type: Status: Acute Code(s): F25.1 - Schizoaffective disorder, depressive type Plan Patient with reported schizoaffective depressive ilness admitted with concerns regarding ability to care for self, paranoia, suicidal thoughts off medications for 2 weeks. - Admit for safety - Milieu therapy - DC planning Regarding medications will restart Latuda 80 mg, Zoloft 50 mg, trazodone 150 mg. Will restart Lamictal at 25 mg as it appears she has been off his for the best part of 2 weeks. Will also try to clarify Haldol adverse effect of dystonia in context of patient being discharged on same in September 2021. 02/23/2022: No changes to current regimen. Did clarify dystonic reactions in the past 02/24/2022: No changes to current regimen 02/26/22: Meeting with mother and OP team 02/28/22. Continue current regime. 02/28/22: Prolixin 1 mg daily to augment Latuda May need Section 02/28 if pt begins to refuse medications. 03/01/22 no changes to medication regimen 03/02/22 refused to take medications; not eating. Patient's roommate reported that in the past few days when she was given medications she would go to her room and throw it up. 03/03/22 Continues to refuse medications. Guardian, pt's mother prefers no IM meds unless absolutely needed. 03/05/22 Pt agrees to Latuda 20 mg daily. Asks to discontinue Sertraline, Lamictal. Guardian prefers no IM meds. 03/06/22 Continue to educate pt regarding treatment for illness. 03/07/22 Cortisone cream for rash on pt's finger. Continue Latuda. Educate, Support. 03/08/22 guarded and difficult to engage; no changes to current treatment plan 03/09/22 START Trazodone 25mg for insomnia Wants to discuss Adderall for concentration. no other changes to current treatment plan 03/11/22 Olanzapine 10 mg bid prn psychotic agitation. 03/13/22 Discharge planning. Pt not wanting further treatment 03/14/22 DC Trazodone 03/15: Continue current regimen and plans 03/16: Continue current plans and regimen 03/17/22 Pt continues to decline treatment. Team meeting to discuss discharge. 03/18/22 Increase Latuda to 40 mg. Pt agrees to treat current symptoms. 03/20/22 Tolerating Latuda increase. Team meeting 03/21/22. 03/21/22 Court 03/25/22 to update Jeancarlos and hear pt's request to terminate guardianship Continue to educate regarding meds, risks of behaviors Prepare for SCOTT if approved by the court. 03/22/22 D/C arthur, reviewed GI consult- much appreciated. On miralax now, along with senna/ docusate. . 03/23/22 No med changes, pt reports she had a BM s/p GI consult. Pt continues with bizarre beliefs and is internally preoccupied. I spent minutes with the patient and/or on the patient floor today, greater than?50% of which was spent counseling/coordinating care. Patient educated on: medication risk/benefits Reason for contiued inpatient stay Substantial Risk for: med/psych decompensation
[2022-03-23 18:00] VITALS: BP 124/79; PULSE 99; RESP 16; TEMP 36.6; O2SAT 99
[2022-03-23] MEDS: Melatonin 3 MG TABLET 9 MG PO (19:57)
[2022-03-23] MEDS: Sennosides/Docusate Sodium TABLET 2 TAB PO (19:57)
[2022-03-23] MEDS: Lurasidone HCl 40 MG TABLET PO (19:58)
[2022-03-24 06:00] VITALS: PULSE 73; TEMP 36.6; O2SAT 99
[2022-03-24] MEDS: Multivitamin TABLET 1 TAB PO (08:40)
[2022-03-24] MEDS: Nicotine Polacrilex 2 MG GUM BUCCAL ×2 (08:40→20:22)
[2022-03-24] MEDS: polyethylene glycoL 3350 17 GM POWD.PACK PO (08:40)
[2022-03-24] MEDS: Calcium + Vitamin D 250 MG TABLET PO (08:40)
--- NOTE | 2022-03-24 16:41 | P.PNPSI_ITS ---
Subjective Subjective Date of Service: 03/24/22 Reason For Visit: Psychosis Subjective Notes: Conditional Voluntary Healthcare Proxy: No Guardianship: Yes Medical Problems Affecting Mental Status: No Interim History: I am fine . No illness. I did not sleep well last night because of my room- mate. Presents with a noticable level of distraction and preoccupation Found jumping on the bed and self-dialoguing when tw entered her room. Denies sx of concern, reports she needs a good place to live . Hermes's guardian has made contact, Mr. Gerber Lr [phone]. He discussed removing mom as guardian as pt had requested and allowing that relationship to re-establish. Medication Compliance: Yes Side effects from medications: No Attending Groups: No Review of Systems Acute medical concerns: No Medical Review of Systems: unchanged Review of Systems Reports behavioral changes Psychiatric: Reports behavioral changes Mental Status Exam Mental Status Exam Patient Appearance: Disheveled Patient Orientation: Person, Place, Time and Situation Level of Consciousness: Alert Patient Behavior: Guarded, Talkative, Suspicious, Resistive to Care, Distractible and Isolative Mood Description: Blunted Affect Description: Blunted Patient Cognition Impaired: Yes Ability to Follow Directions: Fair Speech Pattern: Spontaneous Speech Memory Description: Episodic Impaired Hallucinations: Auditory Delusions: Paranoid Ideation Perceptual Disturbances: Depersonalization Thought Process: Distracted Thought Content: positive for [place], positive for Perseveration and positive for Tangential Depressive Symptoms: Diff. Making Decisions, Increased Irritability and Difficulty Concentrating Judgement: Poor Diagnostics Vital Signs (24Hr): Vital Signs - 24 hr 03/23/22 18:00 03/24/22 06:00 Temperature 97.8 F 98 F Pulse Rate 99 73 Respiratory Rate 16 Blood Pressure 124/79 Pulse Oximetry 99 99 Oxygen Delivery Method Room Air Room Air BMI result Body Mass Index 22.1 Labs Results: 02/21/22 16:26 02/21/22 16:26 Medications Medications Current Medications Acetaminophen (Acetaminophen 325 Mg Tablet) 650 mg PO Q6H PRN PRN Reason: Headache/Pain Mild Scale (1-3) Last Admin: 03/01/22 07:05 Dose: 650 mg Al Hydroxide/Mg Hydroxide (Magnesium Hydrox/Alum Hydrox 30 Ml Oral.Susp) 30 ml PO Q6H PRN PRN Reason: Heartburn/Nausea Albuterol Sulfate (Albuterol Sulfate 90 Mcg 8 Gm Inhaler) 2 puff INHALE QID PRN PRN Reason: shortness of breath or wheezing Calcium Carbonate/Cholecalciferol (Calcium + Vitamin D 250 Mg Tablet) 250 mg PO DAILY [facility] Last Admin: 03/24/22 08:40 Dose: 250 mg Diphenhydramine HCl (Diphenhydramine Hcl 25 Mg Tablet) 25 mg PO DAILY PRN PRN Reason: DYSTONIA Last Admin: 03/07/22 23:50 Dose: 25 mg Hydrocortisone (Hydrocortisone 1 % Cream 28.35 Gm Tube) 1 appl TOPICAL BID PRN; Protocol PRN Reason: skin breakdown between fingers Last Admin: 03/14/22 09:20 Dose: 1 appl Hydroxyzine HCl (Hydroxyzine Hcl 25 Mg Tablet) 25 mg PO TID PRN PRN Reason: ANXIETY/SLEEP Last Admin: 03/07/22 23:50 Dose: 25 mg Lurasidone HCl (Lurasidone Hcl 40 Mg Tablet) 40 mg PO BEDTIME [facility] Last Admin: 03/23/22 19:58 Dose: 40 mg Magnesium Hydroxide (Milk Of Magnesia 30 Ml Oral.Susp) 30 ml PO DAILY PRN PRN Reason: Constipation Melatonin (Melatonin 3 Mg Tablet) 9 mg PO BEDTIME [facility] Last Admin: 03/23/22 19:57 Dose: 9 mg Multivitamins/Vitamin C (Multivitamin Tablet) 1 tab PO DAILY [facility] Last Admin: 03/24/22 08:40 Dose: 1 tab Nicotine Polacrilex (Nicotine Polacrilex 2 Mg Gum) 2 mg BUCCAL Q2H PRN PRN Reason: Nicotine Cravings Last Admin: 03/24/22 08:40 Dose: 2 mg Olanzapine (Olanzapine 10 Mg Tablet) 10 mg PO BID PRN PRN Reason: psychotic agitation Polyethylene Glycol (Polyethylene Glycol 3350 17 Gm Powd.Pack) 17 gm PO DAILY [facility] Last Admin: 03/24/22 08:40 Dose: 17 gm Senna/Docusate Sodium (Sennosides/Docusate Sodium Tablet) 2 tab PO BEDTIME [facility] Last Admin: 03/23/22 19:57 Dose: 2 tab Sodium Biphosphate/Sodium Phosphate (Sodium Phosphate,[place]-Dibasic 133 Ml Enema) 133 ml [place] ONCE PRN PRN Reason: Constipation Allergies Allergies Allergy/AdvReac Type Severity Reaction Status Date / Time aripiprazole [Abilify] Allergy Unknown tongue Verified 03/04/22 10:00 swells and gain weight risperidone [From Risperdal] AdvReac Unknown gain Verified 03/04/22 10:00 weight, and slurred speech cariprazine [From Vraylar] AdvReac Verified 12/19/21 14:42 haloperidol [From Haldol] AdvReac DYSTONIA Verified 02/21/22 18:22 paliperidone AdvReac dystonia Verified 12/19/21 14:42 trazodone AdvReac DYSTONIA Verified 02/21/22 18:23 Assessment & Plan Assessment & Plan (1) Schizoaffective disorder, depressive type: Status: Acute Code(s): F25.1 - Schizoaffective disorder, depressive type Plan Patient with reported schizoaffective depressive ilness admitted with concerns regarding ability to care for self, paranoia, suicidal thoughts off medications for 2 weeks. - Admit for safety - Milieu therapy - DC planning Regarding medications will restart Latuda 80 mg, Zoloft 50 mg, trazodone 150 mg. Will restart Lamictal at 25 mg as it appears she has been off his for the best part of 2 weeks. Will also try to clarify Haldol adverse effect of dystonia in context of patient being discharged on same in September 2021. 02/23/2022: No changes to current regimen. Did clarify dystonic reactions in the past 02/24/2022: No changes to current regimen 02/26/22: Meeting with mother and OP team 02/28/22. Continue current regime. 02/28/22: Prolixin 1 mg daily to augment Latuda May need Section 02/28 if pt begins to refuse medications. 03/01/22 no changes to medication regimen 03/02/22 refused to take medications; not eating. Patient's roommate reported that in the past few days when she was given medications she would go to her room and throw it up. 03/03/22 Continues to refuse medications. Guardian, pt's mother prefers no IM meds unless absolutely needed. 03/05/22 Pt agrees to Latuda 20 mg daily. Asks to discontinue Sertraline, [place]. Guardian prefers no IM meds. 03/06/22 Continue to educate pt regarding treatment for illness. 03/07/22 Cortisone cream for rash on pt's finger. Continue Latuda. Educate, Support. 03/08/22 guarded and difficult to engage; no changes to current treatment plan 03/09/22 START Trazodone 25mg for insomnia Wants to discuss Adderall for concentration. no other changes to current treatment plan 03/11/22 Olanzapine 10 mg bid prn psychotic agitation. 03/13/22 Discharge planning. Pt not wanting further treatment 03/14/22 DC Trazodone 03/15: Continue current regimen and plans 03/16: Continue current plans and regimen 03/17/22 Pt continues to decline treatment. Team meeting to discuss discharge. 03/18/22 Increase Latuda to 40 mg. Pt agrees to treat current symptoms. 03/20/22 Tolerating Latuda increase. Team meeting 03/21/22. 03/21/22 Court 03/25/22 to update Arshad and hear pt's request to terminate guardianship Continue to educate regarding meds, risks of behaviors Prepare for SCOTT if approved by the court. 03/22/22 D/C arthur, reviewed GI consult- much appreciated. On miralax now, along with senna/ docusate. . 03/23/22 No med changes, pt reports she had a BM s/p GI consult. Pt continues with bizarre beliefs and is internally preoccupied. 03/24/[address] for her [address] update on 03/25. She reports she is not in need of a guardian and has discussed this with family and her Hermes's monitor. She reports her goal is to have guardians dismissed from her case. Current Latuda dosing she reports is tolerated. She is considering an increase to 60 mg. I spent minutes with the patient and/or on the patient floor today, greater than?50% of which was spent counseling/coordinating care. Patient educated on: therapeutic strategies Informed Consent: further education needed Reason for contiued inpatient stay Substantial Risk for: harm to self, inability to function and rapid decompensation
[2022-03-24] MEDS: Sennosides/Docusate Sodium TABLET 2 TAB PO (20:22)
[2022-03-24] MEDS: Melatonin 3 MG TABLET 9 MG PO (20:22)
[2022-03-24] MEDS: Lurasidone HCl 40 MG TABLET PO (20:22)
[2022-03-25] MEDS: Nicotine Polacrilex 2 MG GUM BUCCAL ×3 (08:33→18:59)
[2022-03-25] MEDS: Multivitamin TABLET 1 TAB PO (08:33)
[2022-03-25] MEDS: Calcium + Vitamin D 250 MG TABLET PO (08:33)
--- NOTE | 2022-03-25 17:00 | HO.PSYCHPN ---
Subjective Subjective Date of Service: 03/25/22 Reason For Visit: Psychosis Subjective Notes: Conditional Voluntary Healthcare Proxy: No Guardianship: Yes Medical Problems Affecting Mental Status: No Interim History: Team reports pt with agitation-slapping maldonado, hitting herself and calling herself ugly, struggling with her room-mate, punching glass, slamming/slapping the breakfast cart. Attended her court hearing which information was presented that will be considered. Labile at times, quiet at times, appropriate at times Medication Compliance: Yes Side effects from medications: No Attending Groups: No Review of Systems Acute medical concerns: No Medical Review of Systems: unchanged Review of Systems Reports behavioral changes Psychiatric: Reports anxiety, Reports behavioral changes, Reports change in appetite, Reports difficulty concentrating, Reports irritability, Reports anhedonia, Reports mood swings and Reports paranoia Mental Status Exam Mental Status Exam Patient Appearance: Disheveled Patient Orientation: Person, Place, Time and Situation Level of Consciousness: Alert Patient Behavior: Guarded, Talkative, Suspicious, Resistive to Care, Distractible and Isolative Mood Description: Labile Affect Description: Labile Patient Cognition Impaired: Yes Ability to Follow Directions: Fair Speech Pattern: Spontaneous Speech Memory Description: Episodic Impaired Hallucinations: Auditory Delusions: Paranoid Ideation Perceptual Disturbances: Depersonalization Thought Process: Distracted Thought Content: positive for [place], positive for Perseveration and positive for Tangential Depressive Symptoms: Diff. Making Decisions, Increased Irritability and Difficulty Concentrating Judgement: Poor Diagnostics Vital Signs (24Hr): BMI result Body Mass Index 22.1 Labs Results: 02/21/22 16:26 02/21/22 16:26 Medications Medications Current Medications Acetaminophen (Acetaminophen 325 Mg Tablet) 650 mg PO Q6H PRN PRN Reason: Headache/Pain Mild Scale (1-3) Last Admin: 03/01/22 07:05 Dose: 650 mg Al Hydroxide/Mg Hydroxide (Magnesium Hydrox/Alum Hydrox 30 Ml Oral.Susp) 30 ml PO Q6H PRN PRN Reason: Heartburn/Nausea Albuterol Sulfate (Albuterol Sulfate 90 Mcg 8 Gm Inhaler) 2 puff INHALE QID PRN PRN Reason: shortness of breath or wheezing Calcium Carbonate/Cholecalciferol (Calcium + Vitamin D 250 Mg Tablet) 250 mg PO DAILY DUSTIN Last Admin: 03/25/22 08:33 Dose: 250 mg Diphenhydramine HCl (Diphenhydramine Hcl 25 Mg Tablet) 25 mg PO DAILY PRN PRN Reason: DYSTONIA Last Admin: 03/07/22 23:50 Dose: 25 mg Hydrocortisone (Hydrocortisone 1 % Cream 28.35 Gm Tube) 1 appl TOPICAL BID PRN; Protocol PRN Reason: skin breakdown between fingers Last Admin: 03/14/22 09:20 Dose: 1 appl Hydroxyzine HCl (Hydroxyzine Hcl 25 Mg Tablet) 25 mg PO TID PRN PRN Reason: ANXIETY/SLEEP Last Admin: 03/07/22 23:50 Dose: 25 mg Lurasidone HCl (Lurasidone Hcl 40 Mg Tablet) 40 mg PO BEDTIME DUSTIN Last Admin: 03/24/22 20:22 Dose: 40 mg Magnesium Hydroxide (Milk Of Magnesia 30 Ml Oral.Susp) 30 ml PO DAILY PRN PRN Reason: Constipation Melatonin (Melatonin 3 Mg Tablet) 9 mg PO BEDTIME DUSTIN Last Admin: 03/24/22 20:22 Dose: 9 mg Multivitamins/Vitamin C (Multivitamin Tablet) 1 tab PO DAILY DUSTIN Last Admin: 03/25/22 08:33 Dose: 1 tab Nicotine Polacrilex (Nicotine Polacrilex 2 Mg Gum) 2 mg BUCCAL Q2H PRN PRN Reason: Nicotine Cravings Last Admin: 03/25/22 16:26 Dose: 2 mg Olanzapine (Olanzapine 10 Mg Tablet) 10 mg PO BID PRN PRN Reason: psychotic agitation Polyethylene Glycol (Polyethylene Glycol 3350 17 Gm Powd.Pack) 17 gm PO DAILY DUSTIN Last Admin: 03/25/22 09:23 Dose: Not Given Senna/Docusate Sodium (Sennosides/Docusate Sodium Tablet) 2 tab PO BEDTIME DUSTIN Last Admin: 03/24/22 20:22 Dose: 2 tab Sodium Biphosphate/Sodium Phosphate (Sodium Phosphate,[place]-Dibasic 133 Ml Enema) 133 ml OR ONCE PRN PRN Reason: Constipation Allergies Allergies Allergy/AdvReac Type Severity Reaction Status Date / Time aripiprazole [Abilify] Allergy Unknown tongue Verified 03/04/22 10:00 swells and gain weight risperidone [From Risperdal] AdvReac Unknown gain Verified 03/04/22 10:00 weight, and slurred speech cariprazine [From Vraylar] AdvReac Verified 12/19/21 14:42 haloperidol [From Haldol] AdvReac DYSTONIA Verified 02/21/22 18:22 paliperidone AdvReac dystonia Verified 12/19/21 14:42 trazodone AdvReac DYSTONIA Verified 02/21/22 18:23 Assessment & Plan Assessment & Plan (1) Schizoaffective disorder, depressive type: Status: Acute Code(s): F25.1 - Schizoaffective disorder, depressive type Plan Patient with reported schizoaffective depressive ilness admitted with concerns regarding ability to care for self, paranoia, suicidal thoughts off medications for 2 weeks. - Admit for safety - Milieu therapy - DC planning Regarding medications will restart Latuda 80 mg, Zoloft 50 mg, trazodone 150 mg. Will restart Lamictal at 25 mg as it appears she has been off his for the best part of 2 weeks. Will also try to clarify Haldol adverse effect of dystonia in context of patient being discharged on same in September 2021. 02/23/2022: No changes to current regimen. Did clarify dystonic reactions in the past 02/24/2022: No changes to current regimen 02/26/22: Meeting with mother and OP team 02/28/22. Continue current regime. 02/28/22: Prolixin 1 mg daily to augment Latuda May need Section 02/28 if pt begins to refuse medications. 03/01/22 no changes to medication regimen 03/02/22 refused to take medications; not eating. Patient's roommate reported that in the past few days when she was given medications she would go to her room and throw it up. 03/03/22 Continues to refuse medications. Guardian, pt's mother prefers no IM meds unless absolutely needed. 03/05/22 Pt agrees to Latuda 20 mg daily. Asks to discontinue Sertraline, Lamictal. Guardian prefers no IM meds. 03/06/22 Continue to educate pt regarding treatment for illness. 03/07/22 Cortisone cream for rash on pt's finger. Continue Latuda. Educate, Support. 03/08/22 guarded and difficult to engage; no changes to current treatment plan 03/09/22 START Trazodone 25mg for insomnia Wants to discuss Adderall for concentration. no other changes to current treatment plan 03/11/22 Olanzapine 10 mg bid prn psychotic agitation. 03/13/22 Discharge planning. Pt not wanting further treatment 03/14/22 DC Trazodone 03/15: Continue current regimen and plans 03/16: Continue current plans and regimen 03/17/22 Pt continues to decline treatment. Team meeting to discuss discharge. 03/18/22 Increase Latuda to 40 mg. Pt agrees to treat current symptoms. 03/20/22 Tolerating Latuda increase. Team meeting 03/21/22. 03/21/22 Court 03/25/22 to update Jeancarlos and hear pt's request to terminate guardianship Continue to educate regarding meds, risks of behaviors Prepare for SCOTT if approved by the court. 03/22/22 D/C arthur, reviewed GI consult- much appreciated. On miralax now, along with senna/ docusate. . 03/23/22 No med changes, pt reports she had a BM s/p GI consult. Pt continues with bizarre beliefs and is internally preoccupied. 03/25/22 Pt attended and participated in her court hearing. No decision has been made as yet. Continue current plan. I spent minutes with the patient and/or on the patient floor today, greater than?50% of which was spent counseling/coordinating care. Informed Consent: further education needed Reason for contiued inpatient stay Substantial Risk for: harm to self, inability to function and rapid decompensation
[2022-03-25] MEDS: Sennosides/Docusate Sodium TABLET 2 TAB PO (21:11)
[2022-03-25] MEDS: Lurasidone HCl 40 MG TABLET PO (21:11)
[2022-03-25] MEDS: Melatonin 3 MG TABLET 9 MG PO (21:11)
[2022-03-26] MEDS: Calcium + Vitamin D 250 MG TABLET PO (09:54)
[2022-03-26] MEDS: Multivitamin TABLET 1 TAB PO (09:54)
[2022-03-26] MEDS: Nicotine Polacrilex 2 MG GUM BUCCAL (14:47)
--- NOTE | 2022-03-26 16:53 | HO.PSYCHPN ---
Subjective Subjective Date of Service: 03/26/22 Reason For Visit: Psychosis Subjective Notes: Conditional Voluntary Healthcare Proxy: No Guardianship: No Medical Problems Affecting Mental Status: No Interim History: Everyone thinks I am not doing well. I think I am OK. My mom said I should think about keeping Latuda and letting treatment work. You can increase it to 60 mg . You can put the Cogentin back too. Team reports pt is social with male peers, sleeps and isolates mostly during the day and is up later in the evening. She is able to make her needs known. Approached pt to see what her impression was of her meeting with the court on 03/25 and she initiated discussion of medicine increase- everyone thinks I am not doing well except me. Review of concerns. Asked pt is she would be willing to do a zoom meeting with her Hermes's guardian and she agreed-will work with team and guardian to schedule. Call from mom to team-no guardianship update received as yet. Will increase Latuda to 60 mg and re-start Benztropine per pt request per her perception of yesterdays hearing and meeting. Medication Compliance: Yes Side effects from medications: No Attending Groups: No Review of Systems Acute medical concerns: No Medical Review of Systems: unchanged Review of Systems Psychiatric: Reports change in appetite, Reports difficulty concentrating, Reports hopelessness, Reports anhedonia and Reports paranoia Mental Status Exam Mental Status Exam Patient Appearance: Disheveled Patient Orientation: Person, Place, Time and Situation Level of Consciousness: Alert Patient Behavior: Guarded, Talkative, Cooperative, Fatigued, Distractible, Isolative and Good Eye Contact Mood Description: Constricted Affect Description: Constricted Patient Cognition Impaired: Yes Ability to Follow Directions: Good Speech Pattern: Spontaneous Speech Memory Description: Remote Impaired and Episodic Impaired Hallucinations: None Delusions: Paranoid Ideation Perceptual Disturbances: Depersonalization Thought Process: Distracted and Rumination Thought Content: positive for Circumstantial Depressive Symptoms: Low Self Esteem Judgement: Fair Diagnostics Vital Signs (24Hr): BMI result Body Mass Index 22.1 Labs Results: 02/21/22 16:26 02/21/22 16:26 Medications Medications Current Medications Acetaminophen (Acetaminophen 325 Mg Tablet) 650 mg PO Q6H PRN PRN Reason: Headache/Pain Mild Scale (1-3) Last Admin: 03/01/22 07:05 Dose: 650 mg Al Hydroxide/Mg Hydroxide (Magnesium Hydrox/Alum Hydrox 30 Ml Oral.Susp) 30 ml PO Q6H PRN PRN Reason: Heartburn/Nausea Albuterol Sulfate (Albuterol Sulfate 90 Mcg 8 Gm Inhaler) 2 puff INHALE QID PRN PRN Reason: shortness of breath or wheezing Benztropine Mesylate (Benztropine Mesylate 1 Mg Tablet) 1 mg PO BID [facility] Calcium Carbonate/Cholecalciferol (Calcium + Vitamin D 250 Mg Tablet) 250 mg PO DAILY [facility] Last Admin: 03/26/22 09:54 Dose: 250 mg Diphenhydramine HCl (Diphenhydramine Hcl 25 Mg Tablet) 25 mg PO DAILY PRN PRN Reason: DYSTONIA Last Admin: 03/07/22 23:50 Dose: 25 mg Hydrocortisone (Hydrocortisone 1 % Cream 28.35 Gm Tube) 1 appl TOPICAL BID PRN; Protocol PRN Reason: skin breakdown between fingers Last Admin: 03/14/22 09:20 Dose: 1 appl Hydroxyzine HCl (Hydroxyzine Hcl 25 Mg Tablet) 25 mg PO TID PRN PRN Reason: ANXIETY/SLEEP Last Admin: 03/07/22 23:50 Dose: 25 mg Lurasidone HCl (Lurasidone Hcl 20 Mg Tablet) 60 mg PO BEDTIME [facility] Magnesium Hydroxide (Milk Of Magnesia 30 Ml Oral.Susp) 30 ml PO DAILY PRN PRN Reason: Constipation Melatonin (Melatonin 3 Mg Tablet) 9 mg PO BEDTIME [facility] Last Admin: 03/25/22 21:11 Dose: 9 mg Multivitamins/Vitamin C (Multivitamin Tablet) 1 tab PO DAILY [facility] Last Admin: 03/26/22 09:54 Dose: 1 tab Nicotine Polacrilex (Nicotine Polacrilex 2 Mg Gum) 2 mg BUCCAL Q2H PRN PRN Reason: Nicotine Cravings Last Admin: 03/26/22 14:47 Dose: 2 mg Olanzapine (Olanzapine 10 Mg Tablet) 10 mg PO BID PRN PRN Reason: psychotic agitation Polyethylene Glycol (Polyethylene Glycol 3350 17 Gm Powd.Pack) 17 gm PO DAILY [facility] Last Admin: 03/26/22 10:01 Dose: Not Given Senna/Docusate Sodium (Sennosides/Docusate Sodium Tablet) 2 tab PO BEDTIME [facility] Last Admin: 03/25/22 21:11 Dose: 2 tab Sodium Biphosphate/Sodium Phosphate (Sodium Phosphate,[place]-Dibasic 133 Ml Enema) 133 ml DE ONCE PRN PRN Reason: Constipation Allergies Allergies Allergy/AdvReac Type Severity Reaction Status Date / Time aripiprazole [Abilify] Allergy Unknown tongue Verified 03/04/22 10:00 swells and gain weight risperidone [From Risperdal] AdvReac Unknown gain Verified 03/04/22 10:00 weight, and slurred speech cariprazine [From Vraylar] AdvReac Verified 12/19/21 14:42 haloperidol [From Haldol] AdvReac DYSTONIA Verified 02/21/22 18:22 paliperidone AdvReac dystonia Verified 12/19/21 14:42 trazodone AdvReac DYSTONIA Verified 02/21/22 18:23 Assessment & Plan Assessment & Plan (1) Schizoaffective disorder, depressive type: Status: Acute Code(s): F25.1 - Schizoaffective disorder, depressive type Plan Patient with reported schizoaffective depressive ilness admitted with concerns regarding ability to care for self, paranoia, suicidal thoughts off medications for 2 weeks. - Admit for safety - Milieu therapy - DC planning Regarding medications will restart Latuda 80 mg, Zoloft 50 mg, trazodone 150 mg. Will restart Lamictal at 25 mg as it appears she has been off his for the best part of 2 weeks. Will also try to clarify Haldol adverse effect of dystonia in context of patient being discharged on same in September 2021. 02/23/2022: No changes to current regimen. Did clarify dystonic reactions in the past 02/24/2022: No changes to current regimen 02/26/22: Meeting with mother and OP team 02/28/22. Continue current regime. 02/28/22: Prolixin 1 mg daily to augment Latuda May need Section 02/28 if pt begins to refuse medications. 03/01/22 no changes to medication regimen 03/02/22 refused to take medications; not eating. Patient's roommate reported that in the past few days when she was given medications she would go to her room and throw it up. 03/03/22 Continues to refuse medications. Guardian, pt's mother prefers no IM meds unless absolutely needed. 03/05/22 Pt agrees to Latuda 20 mg daily. Asks to discontinue Sertraline, Lamictal. Guardian prefers no IM meds. 03/06/22 Continue to educate pt regarding treatment for illness. 03/07/22 Cortisone cream for rash on pt's finger. Continue Latuda. Educate, Support. 03/08/22 guarded and difficult to engage; no changes to current treatment plan 03/09/22 START Trazodone 25mg for insomnia Wants to discuss Adderall for concentration. no other changes to current treatment plan 03/11/22 Olanzapine 10 mg bid prn psychotic agitation. 03/13/22 Discharge planning. Pt not wanting further treatment 03/14/22 DC Trazodone 03/15: Continue current regimen and plans 03/16: Continue current plans and regimen 03/17/22 Pt continues to decline treatment. Team meeting to discuss discharge. 03/18/22 Increase Latuda to 40 mg. Pt agrees to treat current symptoms. 03/20/22 Tolerating Latuda increase. Team meeting 03/21/22. 03/21/22 Court 03/25/22 to update Jeancarlos and hear pt's request to terminate guardianship Continue to educate regarding meds, risks of behaviors Prepare for [facility] if approved by the court. 03/22/22 D/C arthur, reviewed GI consult- much appreciated. On miralax now, along with senna/ docusate. . 03/23/22 No med changes, pt reports she had a BM s/p GI consult. Pt continues with bizarre beliefs and is internally preoccupied. 03/25/22 Pt attended and participated in her court hearing. No decision has been made as yet. Continue current plan. 03/26/22 Increase Latuda to 60 mg daily- pt initiated this request, citing court process of 03/25 Benztropine 1 mg bid- pt initiated this request. Pt agrees to meeting with her Hermes's monitor, will schedule. I spent minutes with the patient and/or on the patient floor today, greater than?50% of which was spent counseling/coordinating care. Patient educated on: medication risk/benefits and therapeutic strategies Informed Consent: understands and further education needed Reason for contiued inpatient stay Substantial Risk for: harm to self, inability to function and rapid decompensation
[2022-03-26 18:00] VITALS: BP 112/78; PULSE 85; RESP 16; TEMP 36.5; O2SAT 99
[2022-03-26] MEDS: Benztropine Mesylate 1 MG TABLET PO (21:00)
[2022-03-26] MEDS: Sennosides/Docusate Sodium TABLET 2 TAB PO (21:00)
[2022-03-26] MEDS: Lurasidone HCl 20 MG TABLET 60 MG PO (21:00)
[2022-03-26] MEDS: Melatonin 3 MG TABLET 9 MG PO (21:01)
[2022-03-27 06:00] VITALS: BP 124/66; PULSE 75; RESP 16; TEMP 36.3; O2SAT 97
[2022-03-27 07:00] VITALS: BMI 22.1
--- NOTE | 2022-03-27 13:02 | P.PNPSI_ITS ---
Subjective Subjective Date of Service: 03/27/22 Reason For Visit: Psychosis Subjective Notes: Conditional Voluntary Healthcare Proxy: No Guardianship: Yes Medical Problems Affecting Mental Status: No Interim History: Team reports mood lability, response to internal stimuli, self-dialoguing at times, environmental misperceptions. Guardianship is updated-all are in agreement-mother, aunt, Hermes's guardian. Court paperwork received. Hermes's medicine list includes Latuda 60 mg to 160 mg with alternates of Olanzapine to 40 mg po or IM; Prolixin to 40 mg daily, po or im; Clozaril to 900 mg daily or Geodon to 160 mg daily, po or im. Medication Compliance: Yes Side effects from medications: No Attending Groups: No Review of Systems Acute medical concerns: No Medical Review of Systems: unchanged Review of Systems Psychiatric: Reports change in appetite, Reports difficulty concentrating, Reports hopelessness, Reports anhedonia and Reports paranoia Mental Status Exam Mental Status Exam Patient Appearance: Disheveled Patient Orientation: Person, Place, Time and Situation Level of Consciousness: Alert Patient Behavior: Guarded, Talkative, Cooperative, Fatigued, Distractible, Isolative and Good Eye Contact Mood Description: Constricted Affect Description: Constricted Patient Cognition Impaired: Yes Ability to Follow Directions: Good Speech Pattern: Spontaneous Speech Memory Description: Remote Impaired and Episodic Impaired Hallucinations: Auditory Delusions: Paranoid Ideation Perceptual Disturbances: Depersonalization and Derealization Thought Process: Distracted and Rumination Thought Content: positive for Circumstantial, positive for Perseveration, positive for Thought Blocking and positive for Disorganized Depressive Symptoms: Low Self Esteem Judgement: Fair Diagnostics Vital Signs (24Hr): Vital Signs - 24 hr 03/26/22 18:00 03/27/22 06:00 Temperature 97.7 F 97.4 F Pulse Rate 85 75 Respiratory Rate 16 16 Blood Pressure 112/78 124/66 Pulse Oximetry 99 97 Oxygen Delivery Method Room Air Room Air BMI result Body Mass Index 22.1 Labs Results: 02/21/22 16:26 02/21/22 16:26 Medications Medications Current Medications Acetaminophen (Acetaminophen 325 Mg Tablet) 650 mg PO Q6H PRN PRN Reason: Headache/Pain Mild Scale (1-3) Last Admin: 03/01/22 07:05 Dose: 650 mg Al Hydroxide/Mg Hydroxide (Magnesium Hydrox/Alum Hydrox 30 Ml Oral.Susp) 30 ml PO Q6H PRN PRN Reason: Heartburn/Nausea Albuterol Sulfate (Albuterol Sulfate 90 Mcg 8 Gm Inhaler) 2 puff INHALE QID PRN PRN Reason: shortness of breath or wheezing Benztropine Mesylate (Benztropine Mesylate 1 Mg Tablet) 1 mg PO BID [facility] Last Admin: 03/26/22 21:00 Dose: 1 mg Calcium Carbonate/Cholecalciferol (Calcium + Vitamin D 250 Mg Tablet) 250 mg PO DAILY D[facility] Last Admin: 03/26/22 09:54 Dose: 250 mg Diphenhydramine HCl (Diphenhydramine Hcl 25 Mg Tablet) 25 mg PO DAILY PRN PRN Reason: DYSTONIA Last Admin: 03/07/22 23:50 Dose: 25 mg Hydrocortisone (Hydrocortisone 1 % Cream 28.35 Gm Tube) 1 appl TOPICAL BID PRN; Protocol PRN Reason: skin breakdown between fingers Last Admin: 03/14/22 09:20 Dose: 1 appl Hydroxyzine HCl (Hydroxyzine Hcl 25 Mg Tablet) 25 mg PO TID PRN PRN Reason: ANXIETY/SLEEP Last Admin: 03/07/22 23:50 Dose: 25 mg Lurasidone HCl (Lurasidone Hcl 20 Mg Tablet) 60 mg PO BEDTIME [facility] Last Admin: 03/26/22 21:00 Dose: 60 mg Magnesium Hydroxide (Milk Of Magnesia 30 Ml Oral.Susp) 30 ml PO DAILY PRN PRN Reason: Constipation Melatonin (Melatonin 3 Mg Tablet) 9 mg PO BEDTIME [facility] Last Admin: 03/26/22 21:01 Dose: 9 mg Multivitamins/Vitamin C (Multivitamin Tablet) 1 tab PO DAILY [facility] Last Admin: 03/26/22 09:54 Dose: 1 tab Nicotine Polacrilex (Nicotine Polacrilex 2 Mg Gum) 2 mg BUCCAL Q2H PRN PRN Reason: Nicotine Cravings Last Admin: 03/26/22 14:47 Dose: 2 mg Olanzapine (Olanzapine 10 Mg Tablet) 10 mg PO BID PRN PRN Reason: psychotic agitation Polyethylene Glycol (Polyethylene Glycol 3350 17 Gm Powd.Pack) 17 gm PO DAILY [facility] Last Admin: 03/26/22 10:01 Dose: Not Given Senna/Docusate Sodium (Sennosides/Docusate Sodium Tablet) 2 tab PO BEDTIME [facility] Last Admin: 03/26/22 21:00 Dose: 2 tab Sodium Biphosphate/Sodium Phosphate (Sodium Phosphate,[place]-Dibasic 133 Ml Enema) 133 ml [place] ONCE PRN PRN Reason: Constipation Allergies Allergies Allergy/AdvReac Type Severity Reaction Status Date / Time aripiprazole [Abilify] Allergy Unknown tongue Verified 03/04/22 10:00 swells and gain weight risperidone [From Risperdal] AdvReac Unknown gain Verified 03/04/22 10:00 weight, and slurred speech cariprazine [From Vraylar] AdvReac Verified 12/19/21 14:42 haloperidol [From Haldol] AdvReac DYSTONIA Verified 02/21/22 18:22 paliperidone AdvReac dystonia Verified 12/19/21 14:42 trazodone AdvReac DYSTONIA Verified 02/21/22 18:23 Assessment & Plan Assessment & Plan (1) Schizoaffective disorder, depressive type: Status: Acute Code(s): F25.1 - Schizoaffective disorder, depressive type Plan Patient with reported schizoaffective depressive ilness admitted with concerns regarding ability to care for self, paranoia, suicidal thoughts off medications for 2 weeks. - Admit for safety - Milieu therapy - DC planning Regarding medications will restart Latuda 80 mg, Zoloft 50 mg, trazodone 150 mg. Will restart Lamictal at 25 mg as it appears she has been off his for the best part of 2 weeks. Will also try to clarify Haldol adverse effect of dystonia in context of patient being discharged on same in September 2021. 02/23/2022: No changes to current regimen. Did clarify dystonic reactions in the past 02/24/2022: No changes to current regimen 02/26/22: Meeting with mother and OP team 02/28/22. Continue current regime. 02/28/22: Prolixin 1 mg daily to augment Latuda May need Section 02/28 if pt begins to refuse medications. 03/01/22 no changes to medication regimen 03/02/22 refused to take medications; not eating. Patient's roommate reported that in the past few days when she was given medications she would go to her room and throw it up. 03/03/22 Continues to refuse medications. Guardian, pt's mother prefers no IM meds unless absolutely needed. 03/05/22 Pt agrees to Latuda 20 mg daily. Asks to discontinue Sertraline, Lamictal. Guardian prefers no IM meds. 03/06/22 Continue to educate pt regarding treatment for illness. 03/07/22 Cortisone cream for rash on pt's finger. Continue Latuda. Educate, Support. 03/08/22 guarded and difficult to engage; no changes to current treatment plan 03/09/22 START Trazodone 25mg for insomnia Wants to discuss Adderall for concentration. no other changes to current treatment plan 03/11/22 Olanzapine 10 mg bid prn psychotic agitation. 03/13/22 Discharge planning. Pt not wanting further treatment 03/14/22 DC Trazodone 03/15: Continue current regimen and plans 03/16: Continue current plans and regimen 03/17/22 Pt continues to decline treatment. Team meeting to discuss discharge. 03/18/22 Increase Latuda to 40 mg. Pt agrees to treat current symptoms. 03/20/22 Tolerating Latuda increase. Team meeting 03/21/22. 03/21/22 Court 03/25/22 to update Jeancarlos and hear pt's request to terminate guardianship Continue to educate regarding meds, risks of behaviors Prepare for [facility] if approved by the court. 03/22/22 D/C arthur, reviewed GI consult- much appreciated. On miralax now, along with senna/ docusate. . 03/23/22 No med changes, pt reports she had a BM s/p GI consult. Pt continues with bizarre beliefs and is internally preoccupied. 03/25/22 Pt attended and participated in her court hearing. No decision has been made as yet. Continue current plan. 03/26/22 Increase Latuda to 60 mg daily- pt initiated this request, citing court process of 03/25 Benztropine 1 mg bid- pt initiated this request. Pt agrees to meeting with her Hermes's monitor, will schedule. 03/27/[address] paperwork from carina weiss's list. I spent minutes with the patient and/or on the patient floor today, greater than?50% of which was spent counseling/coordinating care. Patient educated on: therapeutic strategies Informed Consent: does not understand and further education needed Reason for contiued inpatient stay Substantial Risk for: harm to self, inability to function and rapid decompensa tion
[2022-03-27 16:12] VITALS: RESP 16
[2022-03-27] MEDS: Lurasidone HCl 20 MG TABLET 60 MG PO (20:35)
[2022-03-27] MEDS: Benztropine Mesylate 1 MG TABLET PO (20:35)
[2022-03-27] MEDS: Melatonin 3 MG TABLET 9 MG PO (20:35)
[2022-03-27] MEDS: Sennosides/Docusate Sodium TABLET 2 TAB PO (20:35)
[2022-03-28 08:31] VITALS: BP 123/79; PULSE 82; RESP 18; TEMP 35.8
[2022-03-28] MEDS: diphenhydrAMINE HCL 25 MG TABLET PO (08:33)
[2022-03-28] MEDS: Multivitamin TABLET 1 TAB PO (08:33)
[2022-03-28] MEDS: Calcium + Vitamin D 250 MG TABLET PO (08:33)
[2022-03-28] MEDS: Benztropine Mesylate 1 MG TABLET PO ×2 (08:34→20:10)
[2022-03-28] MEDS: polyethylene glycoL 3350 17 GM POWD.PACK PO (09:54)
[2022-03-28] MEDS: Nicotine Polacrilex 2 MG GUM BUCCAL ×3 (13:02→20:55)
--- NOTE | 2022-03-28 17:04 | HO.PSYCHPN ---
Subjective Subjective Date of Service: 03/28/22 Reason For Visit: Psychosis Subjective Notes: Conditional Voluntary Healthcare Proxy: No Guardianship: Yes Medical Problems Affecting Mental Status: No Interim History: Visable, social with male peers. Asks for full STD testing with reported concerns re exposure and symptoms of pruritus. Intermittent agitation noted, yelling at team, belligerent, dysregulated. Per team, mother would like to proceed with addition of hs olanzapine dose to augment Latuda for increased sx mgt. Medication Compliance: Yes Side effects from medications: No Attending Groups: No Review of Systems Acute medical concerns: No Medical Review of Systems: unchanged Review of Systems Reports behavioral changes Psychiatric: Reports behavioral changes, Reports depression, Reports difficulty concentrating, Reports auditory hallucinations, Reports irritability, Reports mood swings and Reports paranoia Mental Status Exam Mental Status Exam Patient Appearance: Appropriate Patient Orientation: Person, Place, Time and Situation Level of Consciousness: Alert Patient Behavior: Guarded, Talkative, Suspicious and Good Eye Contact Mood Description: Hostile and Labile Affect Description: Labile Patient Cognition Impaired: No Ability to Follow Directions: Good Speech Pattern: Spontaneous Speech Memory Description: Remote Impaired Hallucinations: Auditory Delusions: Paranoid Ideation Perceptual Disturbances: Depersonalization and Derealization Thought Process: Distracted and Evasive Thought Content: positive for Circumstantial, positive for Perseveration, positive for Thought Blocking and positive for Evasive Depressive Symptoms: Increased Irritability, Changes in Appetite, Low Self Esteem and Difficulty Concentrating Abnormal Motor Activity Signs and Symptoms: Agitation and Restlessness Judgement: Poor Diagnostics Vital Signs (24Hr): Vital Signs - 24 hr 03/28/22 08:31 Temperature 96.5 F L Pulse Rate 82 Respiratory Rate 18 Blood Pressure 123/79 Oxygen Delivery Method Room Air BMI result Body Mass Index 22.1 Labs Results: 02/21/22 16:26 02/21/22 16:26 Medications Medications Current Medications Acetaminophen (Acetaminophen 325 Mg Tablet) 650 mg PO Q6H PRN PRN Reason: Headache/Pain Mild Scale (1-3) Last Admin: 03/01/22 07:05 Dose: 650 mg Al Hydroxide/Mg Hydroxide (Magnesium Hydrox/Alum Hydrox 30 Ml Oral.Susp) 30 ml PO Q6H PRN PRN Reason: Heartburn/Nausea Albuterol Sulfate (Albuterol Sulfate 90 Mcg 8 Gm Inhaler) 2 puff INHALE QID PRN PRN Reason: shortness of breath or wheezing Benztropine Mesylate (Benztropine Mesylate 1 Mg Tablet) 1 mg PO BID REPLACED BY [facility] Last Admin: 03/28/22 08:34 Dose: 1 mg Calcium Carbonate/Cholecalciferol (Calcium + Vitamin D 250 Mg Tablet) 250 mg PO DAILY REPLACED BY [facility] Last Admin: 03/28/22 08:33 Dose: 250 mg Diphenhydramine HCl (Diphenhydramine Hcl 25 Mg Tablet) 25 mg PO DAILY PRN PRN Reason: DYSTONIA Last Admin: 03/28/22 08:33 Dose: 25 mg Hydrocortisone (Hydrocortisone 1 % Cream 28.35 Gm Tube) 1 appl TOPICAL BID PRN; Protocol PRN Reason: skin breakdown between fingers Last Admin: 03/14/22 09:20 Dose: 1 appl Hydroxyzine HCl (Hydroxyzine Hcl 25 Mg Tablet) 25 mg PO TID PRN PRN Reason: ANXIETY/SLEEP Last Admin: 03/07/22 23:50 Dose: 25 mg Lurasidone HCl (Lurasidone Hcl 20 Mg Tablet) 60 mg PO BEDTIME REPLACED BY [facility] Last Admin: 03/27/22 20:35 Dose: 60 mg Magnesium Hydroxide (Milk Of Magnesia 30 Ml Oral.Susp) 30 ml PO DAILY PRN PRN Reason: Constipation Melatonin (Melatonin 3 Mg Tablet) 9 mg PO BEDTIME REPLACED BY [facility] Last Admin: 03/27/22 20:35 Dose: 9 mg Multivitamins/Vitamin C (Multivitamin Tablet) 1 tab PO DAILY REPLACED BY [facility] Last Admin: 03/28/22 08:33 Dose: 1 tab Nicotine Polacrilex (Nicotine Polacrilex 2 Mg Gum) 2 mg BUCCAL Q2H PRN PRN Reason: Nicotine Cravings Last Admin: 03/28/22 16:46 Dose: 2 mg Olanzapine (Olanzapine 10 Mg Tablet) 10 mg PO BID PRN PRN Reason: psychotic agitation Polyethylene Glycol (Polyethylene Glycol 3350 17 Gm Powd.Pack) 17 gm PO DAILY REPLACED BY [facility] Last Admin: 03/28/22 09:54 Dose: 17 gm Senna/Docusate Sodium (Sennosides/Docusate Sodium Tablet) 2 tab PO BEDTIME REPLACED BY [facility] Last Admin: 03/27/22 20:35 Dose: 2 tab Sodium Biphosphate/Sodium Phosphate (Sodium Phosphate,[place]-Dibasic 133 Ml Enema) 133 ml [place] ONCE PRN PRN Reason: Constipation Allergies Allergies Allergy/AdvReac Type Severity Reaction Status Date / Time aripiprazole [Abilify] Allergy Unknown tongue Verified 03/04/22 10:00 swells and gain weight risperidone [From Risperdal] AdvReac Unknown gain Verified 03/04/22 10:00 weight, and slurred speech cariprazine [From Vraylar] AdvReac Verified 12/19/21 14:42 haloperidol [From Haldol] AdvReac DYSTONIA Verified 02/21/22 18:22 paliperidone AdvReac dystonia Verified 12/19/21 14:42 trazodone AdvReac DYSTONIA Verified 02/21/22 18:23 Assessment & Plan Assessment & Plan (1) Schizoaffective disorder, depressive type: Status: Acute Code(s): F25.1 - Schizoaffective disorder, depressive type Plan Patient with reported schizoaffective depressive ilness admitted with concerns regarding ability to care for self, paranoia, suicidal thoughts off medications for 2 weeks. - Admit for safety - Milieu therapy - DC planning Regarding medications will restart Latuda 80 mg, Zoloft 50 mg, trazodone 150 mg. Will restart Lamictal at 25 mg as it appears she has been off his for the best part of 2 weeks. Will also try to clarify Haldol adverse effect of dystonia in context of patient being discharged on same in September 2021. 02/23/2022: No changes to current regimen. Did clarify dystonic reactions in the past 02/24/2022: No changes to current regimen 02/26/22: Meeting with mother and OP team 02/28/22. Continue current regime. 02/28/22: Prolixin 1 mg daily to augment Latuda May need Section 02/28 if pt begins to refuse medications. 03/01/22 no changes to medication regimen 03/02/22 refused to take medications; not eating. Patient's roommate reported that in the past few days when she was given medications she would go to her room and throw it up. 03/03/22 Continues to refuse medications. Guardian, pt's mother prefers no IM meds unless absolutely needed. 03/05/22 Pt agrees to Latuda 20 mg daily. Asks to discontinue Sertraline, Lamictal. Guardian prefers no IM meds. 03/06/22 Continue to educate pt regarding treatment for illness. 03/07/22 Cortisone cream for rash on pt's finger. Continue Latuda. Educate, Support. 03/08/22 guarded and difficult to engage; no changes to current treatment plan 03/09/22 START Trazodone 25mg for insomnia Wants to discuss Adderall for concentration. no other changes to current treatment plan 03/11/22 Olanzapine 10 mg bid prn psychotic agitation. 03/13/22 Discharge planning. Pt not wanting further treatment 03/14/22 DC Trazodone 03/15: Continue current regimen and plans 03/16: Continue current plans and regimen 03/17/22 Pt continues to decline treatment. Team meeting to discuss discharge. 03/18/22 Increase Latuda to 40 mg. Pt agrees to treat current symptoms. 03/20/22 Tolerating Latuda increase. Team meeting 03/21/22. 03/21/22 Court 03/25/22 to update Jeancarlos and hear pt's request to terminate guardianship Continue to educate regarding meds, risks of behaviors Prepare for [facility] if approved by the court. 03/22/22 D/C arthur, reviewed GI consult- much appreciated. On miralax now, along with senna/ docusate. . 03/23/22 No med changes, pt reports she had a BM s/p GI consult. Pt continues with bizarre beliefs and is internally preoccupied. 03/25/22 Pt attended and participated in her court hearing. No decision has been made as yet. Continue current plan. 03/26/22 Increase Latuda to 60 mg daily- pt initiated this request, citing court process of 03/25 Benztropine 1 mg bid- pt initiated this request. Pt agrees to meeting with her Hermes's monitor, will schedule. 03.28.22 Olanzapine 5 mg hs I spent minutes with the patient and/or on the patient floor today, greater than?50% of which was spent counseling/coordinating care. Informed Consent: does not understand Reason for contiued inpatient stay Substantial Risk for: harm to self, inability to function and rapid decompensation
[2022-03-28] MEDS: Melatonin 3 MG TABLET 9 MG PO (20:09)
[2022-03-28] MEDS: Sennosides/Docusate Sodium TABLET 2 TAB PO (20:10)
[2022-03-28] MEDS: Lurasidone HCl 20 MG TABLET 60 MG PO (20:10)
[2022-03-28] MEDS: OLANZapine 5 MG TABLET PO (20:10)
--- NOTE | 2022-03-29 08:22 | PC.NURSE ---
Pt refused AM labs. notified.
[2022-03-29 16:04] VITALS: BP 115/72; PULSE 99; TEMP 36.8; O2SAT 100
[2022-03-29] MEDS: Nicotine Polacrilex 2 MG GUM BUCCAL (19:36)
[2022-03-29] MEDS: Sennosides/Docusate Sodium TABLET 2 TAB PO (20:49)
[2022-03-29] MEDS: Lurasidone HCl 20 MG TABLET 60 MG PO (20:49)
[2022-03-29] MEDS: Benztropine Mesylate 1 MG TABLET PO (20:50)
[2022-03-29] MEDS: Melatonin 3 MG TABLET 9 MG PO (20:50)
[2022-03-29] MEDS: OLANZapine 5 MG TABLET PO (20:50)
--- NOTE | 2022-03-29 23:31 | P.PNPSI_ITS ---
Subjective Subjective Date of Service: 03/29/22 Reason For Visit: Psychosis Subjective Notes: Dejesus Warning Interim History: Patient seen and discussed with team. Pt continues to restrict, isolative, paranoid. Patient evaluated today and upon interview pt reports olanzapine helped with sleep, Knocked me right out, I slept a lot longer. Says I feel calm, I actua lly feel good with that med. Feels a little sick, vomiting a little. Denies constipation.? Denies SI/SIB/HI upon inquiry. Says she feels safe. Medication Compliance: Yes Side effects from medications: No Attending Groups: Intermittent Review of Systems Acute medical concerns: No Medical Review of Systems: unchanged Mental Status Exam Mental Status Exam Narrative: Patient Appearance: Appropriate Patient Orientation: Person, Place, Time and Situation Level of Consciousness: Alert Patient Behavior: Guarded, Talkative, Suspicious and Good Eye Contact Mood Description: Hostile and Labile Affect Description: Labile Patient Cognition Impaired: No Ability to Follow Directions: Good Speech Pattern: Spontaneous Speech Memory Description: Remote Impaired Hallucinations: Auditory Delusions: Paranoid Ideation Perceptual Disturbances: Depersonalization and Derealization Thought Process: Distracted and Evasive Thought Content: positive for Circumstantial, positive for Perseveration, positive for Thought Blocking and positive for Evasive Depressive Symptoms: Increased Irritability, Changes in Appetite, Low Self Esteem and Difficulty Concentrating Abnormal Motor Activity Signs and Symptoms: Agitation and Restlessness Judgement: Poor Diagnostics Vital Signs (24Hr): Vital Signs - 24 hr 03/30/22 06:00 Temperature 98.4 F Pulse Rate 93 Blood Pressure 118/72 Pulse Oximetry 99 Oxygen Delivery Method Room Air BMI result Body Mass Index 22.1 Labs Results: 02/21/22 16:26 02/21/22 16:26 Medications Medications Current Medications Acetaminophen (Acetaminophen 325 Mg Tablet) 650 mg PO Q6H PRN PRN Reason: Headache/Pain Mild Scale (1-3) Last Admin: 03/01/22 07:05 Dose: 650 mg Al Hydroxide/Mg Hydroxide (Magnesium Hydrox/Alum Hydrox 30 Ml Oral.Susp) 30 ml PO Q6H PRN PRN Reason: Heartburn/Nausea Albuterol Sulfate (Albuterol Sulfate 90 Mcg 8 Gm Inhaler) 2 puff INHALE QID PRN PRN Reason: shortness of breath or wheezing Benztropine Mesylate (Benztropine Mesylate 1 Mg Tablet) 1 mg PO BID [facility] Last Admin: 03/30/22 10:00 Dose: 1 mg Calcium Carbonate/Cholecalciferol (Calcium + Vitamin D 250 Mg Tablet) 250 mg PO DAILY DUSTIN Last Admin: 03/30/22 10:00 Dose: 250 mg Diphenhydramine HCl (Diphenhydramine Hcl 25 Mg Tablet) 25 mg PO DAILY PRN PRN Reason: DYSTONIA Last Admin: 03/28/22 08:33 Dose: 25 mg Hydrocortisone (Hydrocortisone 1 % Cream 28.35 Gm Tube) 1 appl TOPICAL BID PRN; Protocol PRN Reason: skin breakdown between fingers Last Admin: 03/14/22 09:20 Dose: 1 appl Hydroxyzine HCl (Hydroxyzine Hcl 25 Mg Tablet) 25 mg PO TID PRN PRN Reason: ANXIETY/SLEEP Last Admin: 03/07/22 23:50 Dose: 25 mg Lurasidone HCl (Lurasidone Hcl 20 Mg Tablet) 60 mg PO BEDTIME DUSTIN Last Admin: 03/29/22 20:49 Dose: 60 mg Magnesium Hydroxide (Milk Of Magnesia 30 Ml Oral.Susp) 30 ml PO DAILY PRN PRN Reason: Constipation Melatonin (Melatonin 3 Mg Tablet) 9 mg PO BEDTIME [facility] Last Admin: 03/29/22 20:50 Dose: 9 mg Multivitamins/Vitamin C (Multivitamin Tablet) 1 tab PO DAILY [facility] Last Admin: 03/30/22 10:00 Dose: 1 tab Nicotine Polacrilex (Nicotine Polacrilex 2 Mg Gum) 2 mg BUCCAL Q2H PRN PRN Reason: Nicotine Cravings Last Admin: 03/30/22 17:01 Dose: 2 mg Olanzapine (Olanzapine 10 Mg Tablet) 10 mg PO BID PRN PRN Reason: psychotic agitation Olanzapine (Olanzapine 5 Mg Tablet) 5 mg PO BEDTIME [facility] Last Admin: 03/29/22 20:50 Dose: 5 mg Olanzapine (Olanzapine 10 Mg Vial) 5 mg IM BEDTIME PRN PRN Reason: If pt refuses PO. Hermes's orde Polyethylene Glycol (Polyethylene Glycol 3350 17 Gm Powd.Pack) 17 gm PO DAILY [facility] Last Admin: 03/30/22 10:00 Dose: 17 gm Senna/Docusate Sodium (Sennosides/Docusate Sodium Tablet) 2 tab PO BEDTIME [facility] Last Admin: 03/29/22 20:49 Dose: 2 tab Sodium Biphosphate/Sodium Phosphate (Sodium Phosphate,[place]-Dibasic 133 Ml Enema) 133 ml OR ONCE PRN PRN Reason: Constipation Allergies Allergies Allergy/AdvReac Type Severity Reaction Status Date / Time aripiprazole [Abilify] Allergy Unknown tongue Verified 03/04/22 10:00 swells and gain weight risperidone [From Risperdal] AdvReac Unknown gain Verified 03/04/22 10:00 weight, and slurred speech cariprazine [From Vraylar] AdvReac Verified 12/19/21 14:42 haloperidol [From Haldol] AdvReac DYSTONIA Verified 02/21/22 18:22 paliperidone AdvReac dystonia Verified 12/19/21 14:42 trazodone AdvReac DYSTONIA Verified 02/21/22 18:23 Assessment & Plan Assessment & Plan (1) Schizoaffective disorder, depressive type: Status: Acute Code(s): F25.1 - Schizoaffective disorder, depressive type Plan Patient with reported schizoaffective depressive ilness admitted with concerns regarding ability to care for self, paranoia, suicidal thoughts off medications for 2 weeks. - Admit for safety - Milieu therapy - DC planning Regarding medications will restart Latuda 80 mg, Zoloft 50 mg, trazodone 150 mg.? Will restart Lamictal at 25 mg as it appears she has been off his for the best part of 2 weeks.? Will also try to clarify Haldol adverse effect of dystonia in context of patient being discharged on same in September 2021. ?02/23/2022:? No changes to current regimen.? Did clarify dystonic reactions in the past ? 02/24/2022: No changes to current regimen 02/26/22: Meeting with mother and OP team 02/28/22. Continue current regime. 02/28/22: Prolixin 1 mg daily to augment Latuda ? May need Section 02/28 if pt begins to refuse medications. 03/01/22 no changes to medication regimen 03/02/22 refused to take medications; not eating.? Patient's roommate reported that in the past few days when she was given medications she would go to her room and throw it up. 03/03/22 Continues to refuse medications. Guardian, pt's mother prefers no IM meds unless absolutely needed. 03/05/22 Pt agrees to Latuda 20 mg daily. Asks to discontinue Sertraline, Lamictal. Guardian prefers no IM meds. 03/06/22 Continue to educate pt regarding treatment for illness. 03/07/22 Cortisone cream for rash on pt's finger. Continue Latuda. Educate, Support. 03/08/22 guarded and difficult to engage; no changes to current treatment plan 03/09/22 START Trazodone 25mg for insomnia Wants to discuss Adderall for concentration. no other changes to current treatment plan 03/11/22 Olanzapine 10 mg bid prn psychotic agitation. 03/13/22 Discharge planning. Pt not wanting further treatment 03/14/22 DC Trazodone 03/15: Continue current regimen and plans 03/16: Continue current plans and regimen 03/17/22 Pt continues to decline treatment. Team meeting to discuss discharge. 03/18/22 Increase Latuda to 40 mg. Pt agrees to treat current symptoms. 03/20/22 Tolerating Latuda increase. Team meeting 03/21/22. 03/21/22 Court 03/25/22 to update Jeancarlos and hear pt's request to terminate guardianship ? Continue to educate regarding meds, risks of behaviors ? Prepare for [facility]OTT if approved by the court. 03/22/22 D/C arthur, reviewed GI consult- much appreciated. On miralax now, along with senna/ docusate. . 03/23/22 No med changes, pt reports she had a BM s/p GI consult. Pt continues with bizarre beliefs and is internally preoccupied. 03/25/22 Pt attended and participated in her court hearing. No decision has been made as yet. Continue current plan. 03/26/22 Increase Latuda to 60 mg daily- pt initiated this request, citing court process of 03/25 ? Benztropine 1 mg bid- pt initiated this request. ? Pt agrees to meeting with her [employer] monitor, will schedule. 03.28.22 Olanzapine 5 mg hs 03/29/22 continue trial on olanzapine, pt is agreeable I spent minutes with the patient and/or on the patient floor today, greater than?50% of which was spent counseling/coordinating care. Patient educated on: diagnosis, medication risk/benefits and therapeutic strategies Reason for contiued inpatient stay Substantial Risk for: inability to function, rapid decompensation and med/psych decompensation
[2022-03-30 06:00] VITALS: BP 118/72; PULSE 93; TEMP 36.9; O2SAT 99
[2022-03-30] MEDS: Calcium + Vitamin D 250 MG TABLET PO (10:00)
[2022-03-30] MEDS: Benztropine Mesylate 1 MG TABLET PO ×2 (10:00→20:59)
[2022-03-30] MEDS: polyethylene glycoL 3350 17 GM POWD.PACK PO (10:00)
[2022-03-30] MEDS: Multivitamin TABLET 1 TAB PO (10:00)
--- NOTE | 2022-03-30 12:53 | P.PNPSI_ITS ---
Subjective Subjective Date of Service: 03/30/22 Reason For Visit: Psychosis Subjective Notes: Conditional Voluntary Interim History: Discussed with nursing and chart reviewed. Has been declining medications. Intermittently agitated with people. With com writer today reports that she is feeling good. Reports her concentration is poor and she would like to discuss stimulant medication with treatment team. Reports medications also make her feel tired. Denied depression SI HI. No overt psychosis noted. Medication Compliance: Intermittent Side effects from medications: No Attending Groups: Intermittent Review of Systems Acute medical concerns: No Review of Systems Review of Systems Unremarkable Mental Status Exam Mental Status Exam Narrative: Superficially engaged. Self-care okay. Denies feeling depressed. Denied SI or HI. No overt psychosis noted. Insight and judgment does appear limited Diagnostics Vital Signs (24Hr): Vital Signs - 24 hr 03/29/22 16:04 03/30/22 06:00 Temperature 98.3 F 98.4 F Pulse Rate 99 93 Blood Pressure 115/72 118/72 Pulse Oximetry 100 99 Oxygen Delivery Method Room Air BMI result Body Mass Index 22.1 Labs Results: 02/21/22 16:26 02/21/22 16:26 Medications Medications Current Medications Acetaminophen (Acetaminophen 325 Mg Tablet) 650 mg PO Q6H PRN PRN Reason: Headache/Pain Mild Scale (1-3) Last Admin: 03/01/22 07:05 Dose: 650 mg Al Hydroxide/Mg Hydroxide (Magnesium Hydrox/Alum Hydrox 30 Ml Oral.Susp) 30 ml PO Q6H PRN PRN Reason: Heartburn/Nausea Albuterol Sulfate (Albuterol Sulfate 90 Mcg 8 Gm Inhaler) 2 puff INHALE QID PRN PRN Reason: shortness of breath or wheezing Benztropine Mesylate (Benztropine Mesylate 1 Mg Tablet) 1 mg PO BID DUSTIN Last Admin: 03/30/22 10:00 Dose: 1 mg Calcium Carbonate/Cholecalciferol (Calcium + Vitamin D 250 Mg Tablet) 250 mg PO DAILY DUSTIN Last Admin: 03/30/22 10:00 Dose: 250 mg Diphenhydramine HCl (Diphenhydramine Hcl 25 Mg Tablet) 25 mg PO DAILY PRN PRN Reason: DYSTONIA Last Admin: 03/28/22 08:33 Dose: 25 mg Hydrocortisone (Hydrocortisone 1 % Cream 28.35 Gm Tube) 1 appl TOPICAL BID PRN; Protocol PRN Reason: skin breakdown between fingers Last Admin: 03/14/22 09:20 Dose: 1 appl Hydroxyzine HCl (Hydroxyzine Hcl 25 Mg Tablet) 25 mg PO TID PRN PRN Reason: ANXIETY/SLEEP Last Admin: 03/07/22 23:50 Dose: 25 mg Lurasidone HCl (Lurasidone Hcl 20 Mg Tablet) 60 mg PO BEDTIME [facility] Last Admin: 03/29/22 20:49 Dose: 60 mg Magnesium Hydroxide (Milk Of Magnesia 30 Ml Oral.Susp) 30 ml PO DAILY PRN PRN Reason: Constipation Melatonin (Melatonin 3 Mg Tablet) 9 mg PO BEDTIME [facility] Last Admin: 03/29/22 20:50 Dose: 9 mg Multivitamins/Vitamin C (Multivitamin Tablet) 1 tab PO DAILY [facility] Last Admin: 03/30/22 10:00 Dose: 1 tab Nicotine Polacrilex (Nicotine Polacrilex 2 Mg Gum) 2 mg BUCCAL Q2H PRN PRN Reason: Nicotine Cravings Last Admin: 03/29/22 19:36 Dose: 2 mg Olanzapine (Olanzapine 10 Mg Tablet) 10 mg PO BID PRN PRN Reason: psychotic agitation Olanzapine (Olanzapine 5 Mg Tablet) 5 mg PO BEDTIME [facility] Last Admin: 03/29/22 20:50 Dose: 5 mg Olanzapine (Olanzapine 10 Mg Vial) 5 mg IM BEDTIME PRN PRN Reason: If pt refuses PO. Hermes's orde Polyethylene Glycol (Polyethylene Glycol 3350 17 Gm Powd.Pack) 17 gm PO DAILY [facility] Last Admin: 03/30/22 10:00 Dose: 17 gm Senna/Docusate Sodium (Sennosides/Docusate Sodium Tablet) 2 tab PO BEDTIME [facility] Last Admin: 03/29/22 20:49 Dose: 2 tab Sodium Biphosphate/Sodium Phosphate (Sodium Phosphate,[place]-Dibasic 133 Ml Enema) 133 ml MA ONCE PRN PRN Reason: Constipation Allergies Allergies Allergy/AdvReac Type Severity Reaction Status Date / Time aripiprazole [Abilify] Allergy Unknown tongue Verified 03/04/22 10:00 swells and gain weight risperidone [From Risperdal] AdvReac Unknown gain Verified 03/04/22 10:00 weight, and slurred speech cariprazine [From Vraylar] AdvReac Verified 12/19/21 14:42 haloperidol [From Haldol] AdvReac DYSTONIA Verified 02/21/22 18:22 paliperidone AdvReac dystonia Verified 12/19/21 14:42 trazodone AdvReac DYSTONIA Verified 02/21/22 18:23 Assessment & Plan Assessment & Plan (1) Schizoaffective disorder, depressive type: Status: Acute Code(s): F25.1 - Schizoaffective disorder, depressive type Plan Patient with reported schizoaffective depressive ilness admitted with concerns regarding ability to care for self, paranoia, suicidal thoughts off medications for 2 weeks. - Admit for safety - Milieu therapy - DC planning Regarding medications will restart Latuda 80 mg, Zoloft 50 mg, trazodone 150 mg. Will restart Lamictal at 25 mg as it appears she has been off his for the best part of 2 weeks. Will also try to clarify Haldol adverse effect of dystonia in context of patient being discharged on same in September 2021. 02/23/2022: No changes to current regimen. Did clarify dystonic reactions in the past 02/24/2022: No changes to current regimen 02/26/22: Meeting with mother and OP team 02/28/22. Continue current regime. 02/28/22: Prolixin 1 mg daily to augment Latuda May need Section 02/28 if pt begins to refuse medications. 03/01/22 no changes to medication regimen 03/02/22 refused to take medications; not eating. Patient's roommate reported that in the past few days when she was given medications she would go to her room and throw it up. 03/03/22 Continues to refuse medications. Guardian, pt's mother prefers no IM meds unless absolutely needed. 03/05/22 Pt agrees to Latuda 20 mg daily. Asks to discontinue Sertraline, Lami ctal. Guardian prefers no IM meds. 03/06/22 Continue to educate pt regarding treatment for illness. 03/07/22 Cortisone cream for rash on pt's finger. Continue Latuda. Educate, Support. 03/08/22 guarded and difficult to engage; no changes to current treatment plan 03/09/22 START Trazodone 25mg for insomnia Wants to discuss Adderall for concentration. no other changes to current treatment plan 03/11/22 Olanzapine 10 mg bid prn psychotic agitation. 03/13/22 Discharge planning. Pt not wanting further treatment 03/14/22 DC Trazodone 03/15: Continue current regimen and plans 03/16: Continue current plans and regimen 03/17/22 Pt continues to decline treatment. Team meeting to discuss discharge. 03/18/22 Increase Latuda to 40 mg. Pt agrees to treat current symptoms. 03/20/22 Tolerating Latuda increase. Team meeting 03/21/22. 03/21/22 Court 03/25/22 to update Jeancarlos and hear pt's request to terminate guardianship Continue to educate regarding meds, risks of behaviors Prepare for [facility] if approved by the court. 03/22/22 D/C arthur, reviewed GI consult- much appreciated. On miralax now, along with senna/ docusate. . 03/23/22 No med changes, pt reports she had a BM s/p GI consult. Pt continues with bizarre beliefs and is internally preoccupied. 03/25/22 Pt attended and participated in her court hearing. No decision has been made as yet. Continue current plan. 03/26/22 Increase Latuda to 60 mg daily- pt initiated this request, citing court process of 03/25 Benztropine 1 mg bid- pt initiated this request. Pt agrees to meeting with her [employer] monitor, will schedule. 03.28.22 Olanzapine 5 mg hs 03/30/2022: No changes to current treatment plan. I spent minutes with the patient and/or on the patient floor today, greater than?50% of which was spent counseling/coordinating care. Reason for contiued inpatient stay Substantial Risk for: inability to function and rapid decompensation
[2022-03-30] MEDS: Nicotine Polacrilex 2 MG GUM BUCCAL ×3 (14:16→20:00)
[2022-03-30] MEDS: Lurasidone HCl 20 MG TABLET 60 MG PO (20:59)
[2022-03-30] MEDS: Melatonin 3 MG TABLET 9 MG PO (20:59)
[2022-03-30] MEDS: Sennosides/Docusate Sodium TABLET 2 TAB PO (20:59)
[2022-03-30] MEDS: OLANZapine 5 MG TABLET PO (20:59)
[2022-03-31] MEDS: Calcium + Vitamin D 250 MG TABLET PO (12:15)
[2022-03-31] MEDS: Benztropine Mesylate 1 MG TABLET PO ×2 (12:15→21:38)
[2022-03-31] MEDS: polyethylene glycoL 3350 17 GM POWD.PACK PO (12:15)
[2022-03-31] MEDS: Multivitamin TABLET 1 TAB PO (12:15)
[2022-03-31] MEDS: Nicotine Polacrilex 2 MG GUM BUCCAL ×3 (14:12→21:27)
--- NOTE | 2022-03-31 17:43 | P.PNPSI_ITS ---
Subjective Subjective Date of Service: 03/31/22 Reason For Visit: Psychosis Subjective Notes: Conditional Voluntary Healthcare Proxy: No Guardianship: Yes Medical Problems Affecting Mental Status: No Interim History: Hi. Would you call my mother and ask her if you can give me Adderall? It works for me. Also, can I meet with you, Cheryl, my mother and my house. I am ready to leave. I want to do some volunteer work . That's it. See you. Brief, directed, focused. Reports everything is good, denies sx, reports she is eating well, sleeping well, taking meds. asks that Olanzapine be decreased as she feels tired. Team reports pt is reactive to certain stimuli and this was observed over the weekend. Medication Compliance: Yes Side effects from medications: No Attending Groups: Intermittent Review of Systems Acute medical concerns: No Medical Review of Systems: unchanged Review of Systems Reports behavioral changes, Reports confusion and Reports memory loss Psychiatric: Reports abnormal sleep pattern, Reports anxiety, Reports behavioral changes, Reports change in appetite, Reports confusion, Reports difficulty concentrating, Reports auditory hallucinations, Reports irritability, Reports anhedonia, Reports memory loss, Reports mood swings, Reports paranoia and Reports suicidal ideation (denies) Mental Status Exam Mental Status Exam Patient Appearance: Appropriate Patient Orientation: Person, Place, Time and Situation Level of Consciousness: Alert Patient Behavior: Talkative and Good Eye Contact Mood Description: Apprehensive Affect Description: Labile Patient Cognition Impaired: Yes Ability to Follow Directions: Fair Speech Pattern: Spontaneous Speech Memory Description: Remote Impaired Hallucinations: Auditory Delusions: Paranoid Ideation Perceptual Disturbances: Depersonalization and Derealization Thought Process: Distracted Thought Content: positive for Tangential and positive for Suicidal Ideation (denies) Depressive Symptoms: Increased Anxiety, Increased Irritability and Difficulty Concentrating Judgement: Poor Diagnostics Vital Signs (24Hr): BMI result Body Mass Index 22.1 Labs Results: 02/21/22 16:26 02/21/22 16:26 Medications Medications Current Medications Acetaminophen (Acetaminophen 325 Mg Tablet) 650 mg PO Q6H PRN PRN Reason: Headache/Pain Mild Scale (1-3) Last Admin: 03/01/22 07:05 Dose: 650 mg Al Hydroxide/Mg Hydroxide (Magnesium Hydrox/Alum Hydrox 30 Ml Oral.Susp) 30 ml PO Q6H PRN PRN Reason: Heartburn/Nausea Albuterol Sulfate (Albuterol Sulfate 90 Mcg 8 Gm Inhaler) 2 puff INHALE QID PRN PRN Reason: shortness of breath or wheezing Benztropine Mesylate (Benztropine Mesylate 1 Mg Tablet) 1 mg PO BID [facility] Last Admin: 03/31/22 12:15 Dose: 1 mg Calcium Carbonate/Cholecalciferol (Calcium + Vitamin D 250 Mg Tablet) 250 mg PO DAILY [facility] Last Admin: 03/31/22 12:15 Dose: 250 mg Diphenhydramine HCl (Diphenhydramine Hcl 25 Mg Tablet) 25 mg PO DAILY PRN PRN Reason: DYSTONIA Last Admin: 03/28/22 08:33 Dose: 25 mg Hydrocortisone (Hydrocortisone 1 % Cream 28.35 Gm Tube) 1 appl TOPICAL BID PRN; Protocol PRN Reason: skin breakdown between fingers Last Admin: 03/14/22 09:20 Dose: 1 appl Hydroxyzine HCl (Hydroxyzine Hcl 25 Mg Tablet) 25 mg PO TID PRN PRN Reason: ANXIETY/SLEEP Last Admin: 03/07/22 23:50 Dose: 25 mg Lurasidone HCl (Lurasidone Hcl 20 Mg Tablet) 60 mg PO BEDTIME [facility] Last Admin: 03/30/22 20:59 Dose: 60 mg Magnesium Hydroxide (Milk Of Magnesia 30 Ml Oral.Susp) 30 ml PO DAILY PRN PRN Reason: Constipation Melatonin (Melatonin 3 Mg Tablet) 9 mg PO BEDTIME [facility] Last Admin: 03/30/22 20:59 Dose: 9 mg Multivitamins/Vitamin C (Multivitamin Tablet) 1 tab PO DAILY [facility] Last Admin: 03/31/22 12:15 Dose: 1 tab Nicotine Polacrilex (Nicotine Polacrilex 2 Mg Gum) 2 mg BUCCAL Q2H PRN PRN Reason: Nicotine Cravings Last Admin: 03/31/22 17:37 Dose: 2 mg Olanzapine (Olanzapine 10 Mg Tablet) 10 mg PO BID PRN PRN Reason: psychotic agitation Olanzapine (Olanzapine 10 Mg Vial) 5 mg IM BEDTIME PRN PRN Reason: If pt refuses PO. Hermes's orde Olanzapine (Olanzapine 2.5 Mg Tablet) 2.5 mg PO BEDTIME [facility] Polyethylene Glycol (Polyethylene Glycol 3350 17 Gm Powd.Pack) 17 gm PO DAILY [facility] Last Admin: 03/31/22 12:15 Dose: 17 gm Senna/Docusate Sodium (Sennosides/Docusate Sodium Tablet) 2 tab PO BEDTIME [facility] Last Admin: 03/30/22 20:59 Dose: 2 tab Sodium Biphosphate/Sodium Phosphate (Sodium Phosphate,[place]-Dibasic 133 Ml Enema) 133 ml [place] ONCE PRN PRN Reason: Constipation Allergies Allergies Allergy/AdvReac Type Severity Reaction Status Date / Time aripiprazole [Abilify] Allergy Unknown tongue Verified 03/04/22 10:00 swells and gain weight risperidone [From Risperdal] AdvReac Unknown gain Verified 03/04/22 10:00 weight, and slurred speech cariprazine [From Vraylar] AdvReac Verified 12/19/21 14:42 haloperidol [From Haldol] AdvReac DYSTONIA Verified 02/21/22 18:22 paliperidone AdvReac dystonia Verified 12/19/21 14:42 trazodone AdvReac DYSTONIA Verified 02/21/22 18:23 Assessment & Plan Assessment & Plan (1) Schizoaffective disorder, depressive type: Status: Acute Code(s): F25.1 - Schizoaffective disorder, depressive type Plan Patient with reported schizoaffective depressive ilness admitted with concerns regarding ability to care for self, paranoia, suicidal thoughts off medications for 2 weeks. - Admit for safety - Milieu therapy - DC planning Regarding medications will restart Latuda 80 mg, Zoloft 50 mg, trazodone 150 mg.? Will restart Lamictal at 25 mg as it appears she has been off his for the best part of 2 weeks.? Will also try to clarify Haldol adverse effect of dystonia in context of patient being discharged on same in September 2021. ?02/23/2022:? No changes to current regimen.? Did clarify dystonic reactions in the past ? 02/24/2022: No changes to current regimen 02/26/22: Meeting with mother and OP team 02/28/22. Continue current regime. 02/28/22: Prolixin 1 mg daily to augment Latuda ? May need Section 02/28 if pt begins to refuse medications. 03/01/22 no changes to medication regimen 03/02/22 refused to take medications; not eating.? Patient's roommate reported that in the past few days when she was given medications she would go to her room and throw it up. 03/03/22 Continues to refuse medications. Guardian, pt's mother prefers no IM meds unless absolutely needed. 03/05/22 Pt agrees to Latuda 20 mg daily. Asks to discontinue Sertraline, Lamictal. Guardian prefers no IM meds. 03/06/22 Continue to educate pt regarding treatment for illness. 03/07/22 Cortisone cream for rash on pt's finger. Continue Latuda. Educate, Support. 03/08/22 guarded and difficult to engage; no changes to current treatment plan 03/09/22 START Trazodone 25mg for insomnia Wants to discuss Adderall for concentration. no other changes to current treatment plan 03/11/22 Olanzapine 10 mg bid prn psychotic agitation. 03/13/22 Discharge planning. Pt not wanting further treatment 03/14/22 DC Trazodone 03/15: Continue current regimen and plans 03/16: Continue current plans and regimen 03/17/22 Pt continues to decline treatment. Team meeting to discuss discharge. 03/18/22 Increase Latuda to 40 mg. Pt agrees to treat current symptoms. 03/20/22 Tolerating Latuda increase. Team meeting 03/21/22. 03/21/22 Court 03/25/22 to update Jeancarlos and hear pt's request to terminate guardianship ? Continue to educate regarding meds, risks of behaviors ? Prepare for [facility] if approved by the court. 03/22/22 D/C arthur, reviewed GI consult- much appreciated. On miralax now, along with senna/ docusate. . 03/23/22 No med changes, pt reports she had a BM s/p GI consult. Pt continues with bizarre beliefs and is internally preoccupied. 03/25/22 Pt attended and participated in her court hearing. No decision has been made as yet. Continue current plan. 03/26/22 Increase Latuda to 60 mg daily- pt initiated this request, citing court process of 03/25 ? Benztropine 1 mg bid- pt initiated this request. ? Pt agrees to meeting with her Hermes's monitor, will schedule. 03.28.22 Olanzapine 5 mg hs 8/6/22 continue trial on olanzapine, pt is agreeable 03/31/22 Decrease olanzapine to 2.5 mg hs, pt reports an increase in sedation. I spent minutes with the patient and/or on the patient floor today, greater than?50% of which was spent counseling/coordinating care. Patient educated on: medication risk/benefits Informed Consent: further education needed Reason for contiued inpatient stay Substantial Risk for: harm to self, inability to function and rapid decompensation
[2022-03-31 18:00] VITALS: BP 118/78; PULSE 89; RESP 16; TEMP 36.5; O2SAT 98
[2022-03-31] MEDS: Sennosides/Docusate Sodium TABLET 2 TAB PO (21:37)
[2022-03-31] MEDS: Lurasidone HCl 20 MG TABLET 60 MG PO (21:38)
[2022-03-31] MEDS: Melatonin 3 MG TABLET 9 MG PO (21:39)
[2022-03-31] MEDS: OLANZapine 2.5 MG TABLET PO (21:39)
[2022-04-01 06:00] VITALS: BP 109/60; PULSE 61; RESP 15; TEMP 36.3; O2SAT 97
[2022-04-01] MEDS: Benztropine Mesylate 1 MG TABLET PO ×2 (08:47→19:59)
[2022-04-01] MEDS: Multivitamin TABLET 1 TAB PO (08:47)
[2022-04-01] MEDS: polyethylene glycoL 3350 17 GM POWD.PACK PO (08:47)
[2022-04-01] MEDS: Calcium + Vitamin D 250 MG TABLET PO (08:47)
[2022-04-01] MEDS: Nicotine Polacrilex 2 MG GUM BUCCAL ×4 (10:43→19:48)
--- NOTE | 2022-04-01 15:52 | P.PNPSI_ITS ---
Subjective Subjective Date of Service: 04/01/22 Reason For Visit: Psychosis Subjective Notes: Conditional Voluntary Healthcare Proxy: No Guardianship: Yes Medical Problems Affecting Mental Status: No Interim History: Pt asked to meet. Has decided she does not want mother to be asked about Yovani causey- I think she will believe it is not a good idea. Denies med SE, reports she is eating well and taking medicine as directed. Asks that we allow her to have her weight, intake and appetite as private- becomes somewhat defensive about this as well. Not wanting to talk about eating/intake or weight. Asks that we begin planning discharge, hopes to volunteer or get a job when she returns to the residential. Medication Compliance: Yes Side effects from medications: No Attending Groups: Intermittent Review of Systems Acute medical concerns: No Medical Review of Systems: unchanged Review of Systems Reports behavioral changes, Reports confusion and Reports memory loss Psychiatric: Reports abnormal sleep pattern, Reports anxiety, Reports behavioral changes, Reports change in appetite, Reports confusion, Reports difficulty concentrating, Reports auditory hallucinations, Reports irritability, Reports anhedonia, Reports memory loss, Reports mood swings, Reports paranoia and Reports suicidal ideation (denies) Mental Status Exam Mental Status Exam Patient Appearance: Appropriate Patient Orientation: Person, Place, Time and Situation Level of Consciousness: Alert Patient Behavior: Talkative and Good Eye Contact Mood Description: Apprehensive Affect Description: Labile Patient Cognition Impaired: Yes Ability to Follow Directions: Fair Speech Pattern: Spontaneous Speech Memory Description: Remote Impaired Hallucinations: Auditory Delusions: Paranoid Ideation Perceptual Disturbances: Depersonalization and Derealization Thought Process: Distracted Thought Content: positive for Tangential and positive for Suicidal Ideation (denies) Depressive Symptoms: Increased Anxiety, Increased Irritability and Difficulty Concentrating Judgement: Poor Diagnostics Vital Signs (24Hr): Vital Signs - 24 hr 03/31/22 18:00 04/01/22 06:00 Temperature 97.7 F 97.4 F Pulse Rate 89 61 Respiratory Rate 16 15 Blood Pressure 118/78 109/60 Pulse Oximetry 98 97 Oxygen Delivery Method Room Air Room Air BMI result Body Mass Index 22.1 Labs Results: 02/21/22 16:26 02/21/22 16:26 Medications Medications Current Medications Acetaminophen (Acetaminophen 325 Mg Tablet) 650 mg PO Q6H PRN PRN Reason: Headache/Pain Mild Scale (1-3) Last Admin: 03/01/22 07:05 Dose: 650 mg Al Hydroxide/Mg Hydroxide (Magnesium Hydrox/Alum Hydrox 30 Ml Oral.Susp) 30 ml PO Q6H PRN PRN Reason: Heartburn/Nausea Albuterol Sulfate (Albuterol Sulfate 90 Mcg 8 Gm Inhaler) 2 puff INHALE QID PRN PRN Reason: shortness of breath or wheezing Benztropine Mesylate (Benztropine Mesylate 1 Mg Tablet) 1 mg PO BID [facility] Last Admin: 04/01/22 08:47 Dose: 1 mg Calcium Carbonate/Cholecalciferol (Calcium + Vitamin D 250 Mg Tablet) 250 mg PO DAILY [facility] Last Admin: 04/01/22 08:47 Dose: 250 mg Diphenhydramine HCl (Diphenhydramine Hcl 25 Mg Tablet) 25 mg PO DAILY PRN PRN Reason: DYSTONIA Last Admin: 03/28/22 08:33 Dose: 25 mg Hydrocortisone (Hydrocortisone 1 % Cream 28.35 Gm Tube) 1 appl TOPICAL BID PRN; Protocol PRN Reason: skin breakdown between fingers Last Admin: 03/14/22 09:20 Dose: 1 appl Hydroxyzine HCl (Hydroxyzine Hcl 25 Mg Tablet) 25 mg PO TID PRN PRN Reason: ANXIETY/SLEEP Last Admin: 03/07/22 23:50 Dose: 25 mg Lurasidone HCl (Lurasidone Hcl 20 Mg Tablet) 60 mg PO BEDTIME [facility] Last Admin: 03/31/22 21:38 Dose: 60 mg Magnesium Hydroxide (Milk Of Magnesia 30 Ml Oral.Susp) 30 ml PO DAILY PRN PRN Reason: Constipation Melatonin (Melatonin 3 Mg Tablet) 9 mg PO BEDTIME [facility] Last Admin: 03/31/22 21:39 Dose: 9 mg Multivitamins/Vitamin C (Multivitamin Tablet) 1 tab PO DAILY [facility] Last Admin: 04/01/22 08:47 Dose: 1 tab Nicotine Polacrilex (Nicotine Polacrilex 2 Mg Gum) 2 mg BUCCAL Q2H PRN PRN Reason: Nicotine Cravings Last Admin: 04/01/22 13:48 Dose: 2 mg Olanzapine (Olanzapine 10 Mg Tablet) 10 mg PO BID PRN PRN Reason: psychotic agitation Olanzapine (Olanzapine 10 Mg Vial) 5 mg IM BEDTIME PRN PRN Reason: If pt refuses PO. Hermes's orde Olanzapine (Olanzapine 2.5 Mg Tablet) 2.5 mg PO BEDTIME [facility] Last Admin: 03/31/22 21:39 Dose: 2.5 mg Polyethylene Glycol (Polyethylene Glycol 3350 17 Gm Powd.Pack) 17 gm PO DAILY [facility] Last Admin: 04/01/22 08:47 Dose: 17 gm Senna/Docusate Sodium (Sennosides/Docusate Sodium Tablet) 2 tab PO BEDTIME [facility] Last Admin: 03/31/22 21:37 Dose: 2 tab Sodium Biphosphate/Sodium Phosphate (Sodium Phosphate,[place]-Dibasic 133 Ml Enema) 133 ml [place] ONCE PRN PRN Reason: Constipation Allergies Allergies Allergy/AdvReac Type Severity Reaction Status Date / Time aripiprazole [Abilify] Allergy Unknown tongue Verified 03/04/22 10:00 swells and gain weight risperidone [From Risperdal] AdvReac Unknown gain Verified 03/04/22 10:00 weight, and slurred speech cariprazine [From Vraylar] AdvReac Verified 12/19/21 14:42 haloperidol [From Haldol] AdvReac DYSTONIA Verified 02/21/22 18:22 paliperidone AdvReac dystonia Verified 12/19/21 14:42 trazodone AdvReac DYSTONIA Verified 02/21/22 18:23 Assessment & Plan Assessment & Plan (1) Schizoaffective disorder, depressive type: Status: Acute Code(s): F25.1 - Schizoaffective disorder, depressive type Plan Patient with reported schizoaffective depressive ilness admitted with concerns regarding ability to care for self, paranoia, suicidal thoughts off medications for 2 weeks. - Admit for safety - Milieu therapy - DC planning Regarding medications will restart Latuda 80 mg, Zoloft 50 mg, trazodone 150 mg.? Will restart Lamictal at 25 mg as it appears she has been off his for the best part of 2 weeks.? Will also try to clarify Haldol adverse effect of dystonia in context of patient being discharged on same in September 2021. ?02/23/2022:? No changes to current regimen.? Did clarify dystonic reactions in the past ? 02/24/2022: No changes to current regimen 02/26/22: Meeting with mother and OP team 02/28/22. Continue current regime. 02/28/22: Prolixin 1 mg daily to augment Latuda ? May need Section 02/28 if pt begins to refuse medications. 03/01/22 no changes to medication regimen 03/02/22 refused to take medications; not eating.? Patient's roommate reported that in the past few days when she was given medications she would go to her room and throw it up. 03/03/22 Continues to refuse medications. Guardian, pt's mother prefers no IM meds unless absolutely needed. 03/05/22 Pt agrees to Latuda 20 mg daily. Asks to discontinue Sertraline, Lamictal. Guardian prefers no IM meds. 03/06/22 Continue to educate pt regarding treatment for illness. 03/07/22 Cortisone cream for rash on pt's finger. Continue Latuda. Educate, Support. 03/08/22 guarded and difficult to engage; no changes to current treatment plan 03/09/22 START Trazodone 25mg for insomnia Wants to discuss Adderall for concentration. no other changes to current treatment plan 03/11/22 Olanzapine 10 mg bid prn psychotic agitation. 03/13/22 Discharge planning. Pt not wanting further treatment 03/14/22 DC Trazodone 03/15: Continue current regimen and plans 03/16: Continue current plans and regimen 03/17/22 Pt continues to decline treatment. Team meeting to discuss discharge. 03/18/22 Increase Latuda to 40 mg. Pt agrees to treat current symptoms. 03/20/22 Tolerating Latuda increase. Team meeting 03/21/22. 03/21/22 Court 03/25/22 to update Jeancarlos and hear pt's request to terminate gua rdianship ? Continue to educate regarding meds, risks of behaviors ? Prepare for [facility] if approved by the court. 03/22/22 D/C arthur, reviewed GI consult- much appreciated. On miralax now, along with senna/ docusate. . 03/23/22 No med changes, pt reports she had a BM s/p GI consult. Pt continues with bizarre beliefs and is internally preoccupied. 03/25/22 Pt attended and participated in her court hearing. No decision has been made as yet. Continue current plan. 03/26/22 Increase Latuda to 60 mg daily- pt initiated this request, citing court process of 03/25 ? Benztropine 1 mg bid- pt initiated this request. ? Pt agrees to meeting with her Hermes[employer] monitor, will schedule. 03.28.22 Olanzapine 5 mg hs 03/29/22 continue trial on olanzapine, pt is agreeable 04/01/22 continue current plan of care. I spent minutes with the patient and/or on the patient floor today, greater than?50% of which was spent counseling/coordinating care. Patient educated on: medication risk/benefits, therapeutic strategies and medical condition Informed Consent: does not understand Reason for contiued inpatient stay Substantial Risk for: harm to self, inability to function and rapid decompensation
[2022-04-01 18:00] VITALS: BP 120/78; PULSE 69; RESP 16; TEMP 36.6; O2SAT 99
[2022-04-01] MEDS: Melatonin 3 MG TABLET 9 MG PO (19:58)
[2022-04-01] MEDS: Lurasidone HCl 20 MG TABLET 60 MG PO (19:59)
[2022-04-01] MEDS: OLANZapine 2.5 MG TABLET PO (19:59)
[2022-04-01] MEDS: Sennosides/Docusate Sodium TABLET 2 TAB PO (19:59)
[2022-04-02] MEDS: Calcium + Vitamin D 250 MG TABLET PO (08:28)
[2022-04-02] MEDS: Multivitamin TABLET 1 TAB PO (08:28)
[2022-04-02] MEDS: Benztropine Mesylate 1 MG TABLET PO ×2 (08:28→21:08)
[2022-04-02] MEDS: Nicotine Polacrilex 2 MG GUM BUCCAL ×2 (11:22→15:59)
--- NOTE | 2022-04-02 17:43 | P.PNPSI_ITS ---
Subjective Subjective Date of Service: 04/02/22 Reason For Visit: Psychosis Subjective Notes: Conditional Voluntary Healthcare Proxy: No Guardianship: Yes Medical Problems Affecting Mental Status: No Interim History: Pt reports today she has no questions or concerns to review. Continues to feel sedation with Olanzapine. Engaged at times with team,confrontive at times, anxious about having a discharge meeting because I want to return to a job, I am bored. Medication Compliance: Yes Side effects from medications: Yes (intermittent sedation reported) Attending Groups: Intermittent Review of Systems Acute medical concerns: No Medical Review of Systems: unchanged Review of Systems Reports behavioral changes Psychiatric: Reports behavioral changes, Reports change in appetite, Reports irritability, Reports anhedonia, Reports mood swings and Reports paranoia Mental Status Exam Mental Status Exam Patient Appearance: Appropriate Patient Orientation: Person, Place, Time and Situation Level of Consciousness: Alert Patient Behavior: Talkative and Good Eye Contact Mood Description: Apprehensive Affect Description: Labile Patient Cognition Impaired: Yes Ability to Follow Directions: Fair Speech Pattern: Spontaneous Speech Memory Description: Remote Impaired Hallucinations: Auditory Delusions: Paranoid Ideation Perceptual Disturbances: Depersonalization and Derealization Thought Process: Distracted Thought Content: positive for Tangential and positive for Suicidal Ideation (denies) Depressive Symptoms: Increased Anxiety, Increased Irritability and Difficulty Concentrating Judgement: Poor Diagnostics Vital Signs (24Hr): Vital Signs - 24 hr 04/01/22 18:00 Temperature 97.8 F Pulse Rate 69 Respiratory Rate 16 Blood Pressure 120/78 Pulse Oximetry 99 Oxygen Delivery Method Room Air BMI result Body Mass Index 22.1 Labs Results: 02/21/22 16:26 02/21/22 16:26 Medications Medications Current Medications Acetaminophen (Acetaminophen 325 Mg Tablet) 650 mg PO Q6H PRN PRN Reason: Headache/Pain Mild Scale (1-3) Last Admin: 03/01/22 07:05 Dose: 650 mg Al Hydroxide/Mg Hydroxide (Magnesium Hydrox/Alum Hydrox 30 Ml Oral.Susp) 30 ml PO Q6H PRN PRN Reason: Heartburn/Nausea Albuterol Sulfate (Albuterol Sulfate 90 Mcg 8 Gm Inhaler) 2 puff INHALE QID PRN PRN Reason: shortness of breath or wheezing Benztropine Mesylate (Benztropine Mesylate 1 Mg Tablet) 1 mg PO BID [facility] Last Admin: 04/02/22 08:28 Dose: 1 mg Calcium Carbonate/Cholecalciferol (Calcium + Vitamin D 250 Mg Tablet) 250 mg PO DAILY DUSTIN Last Admin: 04/02/22 08:28 Dose: 250 mg Diphenhydramine HCl (Diphenhydramine Hcl 25 Mg Tablet) 25 mg PO DAILY PRN PRN Reason: DYSTONIA Last Admin: 03/28/22 08:33 Dose: 25 mg Hydrocortisone (Hydrocortisone 1 % Cream 28.35 Gm Tube) 1 appl TOPICAL BID PRN; Protocol PRN Reason: skin breakdown between fingers Last Admin: 03/14/22 09:20 Dose: 1 appl Hydroxyzine HCl (Hydroxyzine Hcl 25 Mg Tablet) 25 mg PO TID PRN PRN Reason: ANXIETY/SLEEP Last Admin: 03/07/22 23:50 Dose: 25 mg Lurasidone HCl (Lurasidone Hcl 80 Mg Tablet) 80 mg PO BEDTIME [facility] Magnesium Hydroxide (Milk Of Magnesia 30 Ml Oral.Susp) 30 ml PO DAILY PRN PRN Reason: Constipation Melatonin (Melatonin 3 Mg Tablet) 9 mg PO BEDTIME [facility] Last Admin: 04/01/22 19:58 Dose: 9 mg Multivitamins/Vitamin C (Multivitamin Tablet) 1 tab PO DAILY [facility] Last Admin: 04/02/22 08:28 Dose: 1 tab Nicotine Polacrilex (Nicotine Polacrilex 2 Mg Gum) 2 mg BUCCAL Q2H PRN PRN Reason: Nicotine Cravings Last Admin: 04/02/22 15:59 Dose: 2 mg Olanzapine (Olanzapine 10 Mg Tablet) 10 mg PO BID PRN PRN Reason: psychotic agitation Olanzapine (Olanzapine 10 Mg Vial) 5 mg IM BEDTIME PRN PRN Reason: If pt refuses PO. Hermes's orde Olanzapine (Olanzapine 2.5 Mg Tablet) 2.5 mg PO BEDTIME DUSTIN Last Admin: 04/01/22 19:59 Dose: 2.5 mg Polyethylene Glycol (Polyethylene Glycol 3350 17 Gm Powd.Pack) 17 gm PO DAILY [facility] Last Admin: 04/02/22 08:32 Dose: Not Given Senna/Docusate Sodium (Sennosides/Docusate Sodium Tablet) 2 tab PO BEDTIME [facility]USTIN Last Admin: 04/01/22 19:59 Dose: 2 tab Sodium Biphosphate/Sodium Phosphate (Sodium Phosphate,[place]-Dibasic 133 Ml Enema) 133 ml SD ONCE PRN PRN Reason: Constipation Allergies Allergies Allergy/AdvReac Type Severity Reaction Status Date / Time aripiprazole [Abilify] Allergy Unknown tongue Verified 03/04/22 10:00 swells and gain weight risperidone [From Risperdal] AdvReac Unknown gain Verified 03/04/22 10:00 weight, and slurred speech cariprazine [From Vraylar] AdvReac Verified 12/19/21 14:42 haloperidol [From Haldol] AdvReac DYSTONIA Verified 02/21/22 18:22 paliperidone AdvReac dystonia Verified 12/19/21 14:42 trazodone AdvReac DYSTONIA Verified 02/21/22 18:23 Assessment & Plan Assessment & Plan (1) Schizoaffective disorder, depressive type: Status: Acute Code(s): F25.1 - Schizoaffective disorder, depressive type Plan Patient with reported schizoaffective depressive ilness admitted with concerns regarding ability to care for self, paranoia, suicidal thoughts off medications for 2 weeks. - Admit for safety - Milieu therapy - DC planning Regarding medications will restart Latuda 80 mg, Zoloft 50 mg, trazodone 150 mg.? Will restart Lamictal at 25 mg as it appears she has been off his for the best part of 2 weeks.? Will also try to clarify Haldol adverse effect of dystonia in context of patient being discharged on same in September 2021. ?02/23/2022:? No changes to current regimen.? Did clarify dystonic reactions in the past ? 02/24/2022: No changes to current regimen 02/26/22: Meeting with mother and OP team 02/28/22. Continue current regime. 02/28/22: Prolixin 1 mg daily to augment Latuda ? May need Section 02/28 if pt begins to refuse medications. 03/01/22 no changes to medication regimen 03/02/22 refused to take medications; not eating.? Patient's roommate reported that in the past few days when she was given medications she would go to her room and throw it up. 03/03/22 Continues to refuse medications. Guardian, pt's mother prefers no IM meds unless absolutely needed. 03/05/22 Pt agrees to Latuda 20 mg daily. Asks to discontinue Sertraline, Lamictal. Guardian prefers no IM meds. 03/06/22 Continue to educate pt regarding treatment for illness. 03/07/22 Cortisone cream for rash on pt's finger. Continue Latuda. Educate, Support. 03/08/22 guarded and difficult to engage; no changes to current treatment plan 03/09/22 START Trazodone 25mg for insomnia Wants to discuss Adderall for concentration. no other changes to current treatment plan 03/11/22 Olanzapine 10 mg bid prn psychotic agitation. 03/13/22 Discharge planning. Pt not wanting further treatment 03/14/22 DC Trazodone 03/15: Continue current regimen and plans 03/16: Continue current plans and regimen 03/17/22 Pt continues to decline treatment. Team meeting to discuss discharge. 03/18/22 Increase Latuda to 40 mg. Pt agrees to treat current symptoms. 03/20/22 Tolerating Latuda increase. Team meeting 03/21/22. 03/21/22 Court 03/25/22 to update Jeancarlos and hear pt's request to terminate guardianship ? Continue to educate regarding meds, risks of behaviors ? Prepare for [facility]OTT if approved by the court. 03/22/22 D/C arthur, reviewed GI consult- much appreciated. On miralax now, along with senna/ docusate. . 03/23/22 No med changes, pt reports she had a BM s/p GI consult. Pt continues with bizarre beliefs and is internally preoccupied. 03/25/22 Pt attended and participated in her court hearing. No decision has been made as yet. Continue current plan. 03/26/22 Increase Latuda to 60 mg daily- pt initiated this request, citing court process of 03/25 ? Benztropine 1 mg bid- pt initiated this request. ? Pt agrees to meeting with her Hermes[employer] monitor, will schedule. 03.28.22 Olanzapine 5 mg hs 03/29/22 continue trial on olanzapine, pt is agreeable 04/02/22- Increase Latuda to 80 mg. If tolerated, will discontinue Olanzapine 2.5 mg scheduled. I spent minutes with the patient and/or on the patient floor today, greater than?50% of which was spent counseling/coordinating care. Patient educated on: therapeutic strategies Informed Consent: further education needed Reason for contiued inpatient stay Substantial Risk for: rapid decompensation
[2022-04-02 21:00] VITALS: BP 134/74; PULSE 97; RESP 16; TEMP 36.1; O2SAT 98
[2022-04-02] MEDS: Melatonin 3 MG TABLET 9 MG PO (21:07)
[2022-04-02] MEDS: Sennosides/Docusate Sodium TABLET 2 TAB PO (21:07)
[2022-04-02] MEDS: OLANZapine 2.5 MG TABLET PO (21:08)
[2022-04-02] MEDS: Lurasidone HCl 80 MG TABLET PO (21:08)
[2022-04-03] MEDS: Nicotine Polacrilex 2 MG GUM BUCCAL ×3 (14:06→21:04)
--- NOTE | 2022-04-03 15:45 | HO.PSYCHPN ---
Subjective Subjective Date of Service: 04/03/22 Reason For Visit: Psychosis Subjective Notes: Conditional Voluntary Healthcare Proxy: No Guardianship: Yes Medical Problems Affecting Mental Status: No Interim History: Review of guardianship paperwork with pt who had edited it. Questions regarding diagnosis- I don't have anything wrong with me. Questions regarding capacity- I can do everything anyone else can do better. Questions regarding need for guardianship- I will have to fight to be my own guardian. Education attempted and provided. Identified LTG with pt to return to community, experience wellness, and be able to carry on her life goals without relapse or symptom increase. Discussed medicine having a similiar goal, I feel better without medicine. Discussed her presentation on the unit with and without medications. Inappropriate presentation with clothing at times today-wearing a long t-shirt with underwear-discussed- you are not my mother this is what I want to wear. Discussed that this could increase her vulnerability to negative attention as milieu is currently disrupted and rigorous with male energy and agitation. Oh, I am sorry, I don't want to be disrespectful, I did not think of that, thank you for caring about me like that. I don't want them to get the wrong idea It is just hot you know, summer, and this feels good. Medication Compliance: Yes Side effects from medications: No Attending Groups: No Review of Systems Acute medical concerns: No Medical Review of Systems: unchanged Review of Systems Reports behavioral changes Psychiatric: Reports anxiety, Reports behavioral changes, Reports change in appetite, Reports irritability, Reports mood swings and Reports paranoia Mental Status Exam Mental Status Exam Patient Appearance: Appropriate Patient Orientation: Person, Place, Time and Situation Level of Consciousness: Alert Patient Behavior: Talkative and Good Eye Contact Mood Description: Apprehensive Affect Description: Labile Patient Cognition Impaired: Yes Ability to Follow Directions: Fair Speech Pattern: Spontaneous Speech Memory Description: Remote Impaired Hallucinations: Auditory Delusions: Paranoid Ideation Perceptual Disturbances: Depersonalization and Derealization Thought Process: Distracted Thought Content: positive for Tangential and positive for Suicidal Ideation (denies) Depressive Symptoms: Increased Anxiety, Increased Irritability and Difficulty Concentrating Judgement: Poor Diagnostics Vital Signs (24Hr): Vital Signs - 24 hr 04/02/22 21:00 Temperature 97 F Pulse Rate 97 Respiratory Rate 16 Blood Pressure 134/74 Pulse Oximetry 98 Oxygen Delivery Method Room Air BMI result Body Mass Index 22.1 Labs Results: 02/21/22 16:26 02/21/22 16:26 Medications Medications Current Medications Acetaminophen (Acetaminophen 325 Mg Tablet) 650 mg PO Q6H PRN PRN Reason: Headache/Pain Mild Scale (1-3) Last Admin: 03/01/22 07:05 Dose: 650 mg Al Hydroxide/Mg Hydroxide (Magnesium Hydrox/Alum Hydrox 30 Ml Oral.Susp) 30 ml PO Q6H PRN PRN Reason: Heartburn/Nausea Albuterol Sulfate (Albuterol Sulfate 90 Mcg 8 Gm Inhaler) 2 puff INHALE QID PRN PRN Reason: shortness of breath or wheezing Benztropine Mesylate (Benztropine Mesylate 1 Mg Tablet) 1 mg PO BID [facility] Last Admin: 04/03/22 12:11 Dose: Not Given Calcium Carbonate/Cholecalciferol (Calcium + Vitamin D 250 Mg Tablet) 250 mg PO DAILY [facility] Last Admin: 04/03/22 12:11 Dose: Not Given Diphenhydramine HCl (Diphenhydramine Hcl 25 Mg Tablet) 25 mg PO DAILY PRN PRN Reason: DYSTONIA Last Admin: 03/28/22 08:33 Dose: 25 mg Hydrocortisone (Hydrocortisone 1 % Cream 28.35 Gm Tube) 1 appl TOPICAL BID PRN; Protocol PRN Reason: skin breakdown between fingers Last Admin: 03/14/22 09:20 Dose: 1 appl Hydroxyzine HCl (Hydroxyzine Hcl 25 Mg Tablet) 25 mg PO TID PRN PRN Reason: ANXIETY/SLEEP Last Admin: 03/07/22 23:50 Dose: 25 mg Lurasidone HCl (Lurasidone Hcl 80 Mg Tablet) 80 mg PO BEDTIME [facility] Last Admin: 04/02/22 21:08 Dose: 80 mg Magnesium Hydroxide (Milk Of Magnesia 30 Ml Oral.Susp) 30 ml PO DAILY PRN PRN Reason: Constipation Melatonin (Melatonin 3 Mg Tablet) 9 mg PO BEDTIME [facility] Last Admin: 04/02/22 21:07 Dose: 9 mg Multivitamins/Vitamin C (Multivitamin Tablet) 1 tab PO DAILY [facility] Last Admin: 04/03/22 12:11 Dose: Not Given Nicotine Polacrilex (Nicotine Polacrilex 2 Mg Gum) 2 mg BUCCAL Q2H PRN PRN Reason: Nicotine Cravings Last Admin: 04/03/22 14:06 Dose: 2 mg Olanzapine (Olanzapine 10 Mg Tablet) 10 mg PO BID PRN PRN Reason: psychotic agitation Olanzapine (Olanzapine 10 Mg Vial) 5 mg IM BEDTIME PRN PRN Reason: If pt refuses PO. Tessie kohler Olanzapine (Olanzapine 2.5 Mg Tablet) 2.5 mg PO BEDTIME [facility] Last Admin: 04/02/22 21:08 Dose: 2.5 mg Polyethylene Glycol (Polyethylene Glycol 3350 17 Gm Powd.Pack) 17 gm PO DAILY [facility] Last Admin: 04/03/22 12:11 Dose: Not Given Senna/Docusate Sodium (Sennosides/Docusate Sodium Tablet) 2 tab PO BEDTIME [facility] Last Admin: 04/02/22 21:07 Dose: 2 tab Sodium Biphosphate/Sodium Phosphate (Sodium Phosphate,[place]-Dibasic 133 Ml Enema) 133 ml [place] ONCE PRN PRN Reason: Constipation Allergies Allergies Allergy/AdvReac Type Severity Reaction Status Date / Time aripiprazole [Abilify] Allergy Unknown tongue Verified 03/04/22 10:00 swells and gain weight risperidone [From Risperdal] AdvReac Unknown gain Verified 03/04/22 10:00 weight, and slurred speech cariprazine [From Vraylar] AdvReac Verified 12/19/21 14:42 haloperidol [From Haldol] AdvReac DYSTONIA Verified 02/21/22 18:22 paliperidone AdvReac dystonia Verified 12/19/21 14:42 trazodone AdvReac DYSTONIA Verified 02/21/22 18:23 Assessment & Plan Assessment & Plan (1) Schizoaffective disorder, depressive type: Status: Acute Code(s): F25.1 - Schizoaffective disorder, depressive type Plan Patient with reported schizoaffective depressive ilness admitted with concerns regarding ability to care for self, paranoia, suicidal thoughts off medications for 2 weeks. - Admit for safety - Milieu therapy - DC planning Regarding medications will restart Latuda 80 mg, Zoloft 50 mg, trazodone 150 mg.? Will restart Lamictal at 25 mg as it appears she has been off his for the best part of 2 weeks.? Will also try to clarify Haldol adverse effect of dystonia in context of patient being discharged on same in September 2021. ?02/23/2022:? No changes to current regimen.? Did clarify dystonic reactions in the past ? 02/24/2022: No changes to current regimen 02/26/22: Meeting with mother and OP team 02/28/22. Continue current regime. 02/28/22: Prolixin 1 mg daily to augment Latuda ? May need Section 02/28 if pt begins to refuse medications. 03/01/22 no changes to medication regimen 03/02/22 refused to take medications; not eating.? Patient's roommate reported that in the past few days when she was given medications she would go to her room and throw it up. 03/03/22 Continues to refuse medications. Guardian, pt's mother prefers no IM meds unless absolutely needed. 03/05/22 Pt agrees to Latuda 20 mg daily. Asks to discontinue Sertraline, Lamictal. Guardian prefers no IM meds. 03/06/22 Continue to educate pt regarding treatment for illness. 03/07/22 Cortisone cream for rash on pt's finger. Continue Latuda. Educate, Support. 03/08/22 guarded and difficult to engage; no changes to current treatment plan 03/09/22 START Trazodone 25mg for insomnia Wants to discuss Adderall for concentration. no other changes to current treatment plan 03/11/22 Olanzapine 10 mg bid prn psychotic agitation. 03/13/22 Discharge planning. Pt not wanting further treatment 03/14/22 DC Trazodone 03/15: Continue current regimen and plans 03/16: Continue current plans and regimen 03/17/22 Pt continues to decline treatment. Team meeting to discuss discharge. 03/18/22 Increase Latuda to 40 mg. Pt agrees to treat current symptoms. 03/20/22 Tolerating Latuda increase. Team meeting 03/21/22. 03/21/22 Court 03/25/22 to update Jeancarlos and hear pt's request to terminate guardianship ? Continue to educate regarding meds, risks of behaviors ? Prepare for [facility] if approved by the court. 03/22/22 D/C arthur, reviewed GI consult- much appreciated. On miralax now, along with senna/ docusate. . 03/23/22 No med changes, pt reports she had a BM s/p GI consult. Pt continues with bizarre beliefs and is internally preoccupied. 03/25/22 Pt attended and participated in her court hearing. No decision has been made as yet. Continue current plan. 03/26/22 Increase Latuda to 60 mg daily- pt initiated this request, citing court process of 03/25 ? Benztropine 1 mg bid- pt initiated this request. ? Pt agrees to meeting with her [employer] monitor, will schedule. 03.28.22 Olanzapine 5 mg hs 03/29/22 continue trial on olanzapine, pt is agreeable 04/02/22- Increase Latuda to 80 mg. If tolerated, will discontinue Olanzapine 2.5 mg scheduled. 04/03/22- Continue current regime Pt allowing for discussion, education, support and disagreement today. I spent minutes with the patient and/or on the patient floor today, greater than?50% of which was spent counseling/coordinating care. Patient educated on: diagnosis, medication risk/benefits, substance abuse and therapeutic strategies Informed Consent: further education needed Reason for contiued inpatient stay Substantial Risk for: harm to self, inability to function and rapid decompensation
[2022-04-03 20:21] VITALS: BP 104/65; PULSE 98; TEMP 36.3
[2022-04-03] MEDS: Melatonin 3 MG TABLET 9 MG PO (21:04)
[2022-04-03] MEDS: OLANZapine 2.5 MG TABLET PO (21:04)
[2022-04-03] MEDS: Lurasidone HCl 80 MG TABLET PO (21:05)
[2022-04-03] MEDS: Benztropine Mesylate 1 MG TABLET PO (21:05)
[2022-04-03] MEDS: Sennosides/Docusate Sodium TABLET 2 TAB PO (21:05)
[2022-04-04] MEDS: Benztropine Mesylate 1 MG TABLET PO ×2 (08:06→20:19)
[2022-04-04] MEDS: Multivitamin TABLET 1 TAB PO (08:06)
[2022-04-04] MEDS: Calcium + Vitamin D 250 MG TABLET PO (08:06)
[2022-04-04] MEDS: Nicotine Polacrilex 2 MG GUM BUCCAL ×5 (12:18→20:22)
[2022-04-04 16:07] VITALS: RESP 16
--- NOTE | 2022-04-04 18:47 | HO.PSYCHPN ---
Subjective Subjective Date of Service: 04/04/22 Reason For Visit: Psychosis Subjective Notes: Conditional Voluntary Healthcare Proxy: No Guardianship: Yes Medical Problems Affecting Mental Status: No Interim History: Team reports pt is having difficulty with intake, found to have flushed her dinner last evening. Periods of irritability and withdrawal, possibly in anticipation of meeting on 04/07 to discuss discharge with her team. Denies questions or concerns today-approached tw a few times for questions about discharge-if she gets a job before discharge will that be favorable with the court to dissolve the guardianship? Pointed out to tw that she was showering today and caring for her ADL's, also that other peers have told her she is helpful to them on the unit. Supported her in these positive points. Medication Compliance: Yes Side effects from medications: No Attending Groups: Intermittent Review of Systems Acute medical concerns: No Medical Review of Systems: unchanged Review of Systems Reports behavioral changes Psychiatric: Reports anxiety, Reports behavioral changes, Reports change in appetite, Reports irritability, Reports mood swings and Reports paranoia Mental Status Exam Mental Status Exam Patient Appearance: Appropriate Patient Orientation: Person, Place, Time and Situation Level of Consciousness: Alert Patient Behavior: Talkative and Good Eye Contact Mood Description: Apprehensive Affect Description: Labile Patient Cognition Impaired: Yes Ability to Follow Directions: Fair Speech Pattern: Spontaneous Speech Memory Description: Remote Impaired Hallucinations: Auditory Delusions: Paranoid Ideation Perceptual Disturbances: Depersonalization and Derealization Thought Process: Distracted Thought Content: positive for Tangential and positive for Suicidal Ideation (denies) Depressive Symptoms: Increased Anxiety, Increased Irritability and Difficulty Concentrating Judgement: Poor Diagnostics Vital Signs (24Hr): Vital Signs - 24 hr 04/03/22 20:21 04/04/22 16:07 Temperature 97.4 F Pulse Rate 98 Respiratory Rate 16 Blood Pressure 104/65 BMI result Body Mass Index 22.1 Labs Results: 02/21/22 16:26 02/21/22 16:26 Medications Medications Current Medications Acetaminophen (Acetaminophen 325 Mg Tablet) 650 mg PO Q6H PRN PRN Reason: Headache/Pain Mild Scale (1-3) Last Admin: 03/01/22 07:05 Dose: 650 mg Al Hydroxide/Mg Hydroxide (Magnesium Hydrox/Alum Hydrox 30 Ml Oral.Susp) 30 ml PO Q6H PRN PRN Reason: Heartburn/Nausea Albuterol Sulfate (Albuterol Sulfate 90 Mcg 8 Gm Inhaler) 2 puff INHALE QID PRN PRN Reason: shortness of breath or wheezing Benztropine Mesylate (Benztropine Mesylate 1 Mg Tablet) 1 mg PO BID [facility] Last Admin: 04/04/22 08:06 Dose: 1 mg Calcium Carbonate/Cholecalciferol (Calcium + Vitamin D 250 Mg Tablet) 250 mg PO DAILY DUSTIN Last Admin: 04/04/22 08:06 Dose: 250 mg Diphenhydramine HCl (Diphenhydramine Hcl 25 Mg Tablet) 25 mg PO DAILY PRN PRN Reason: DYSTONIA Last Admin: 03/28/22 08:33 Dose: 25 mg Hydrocortisone (Hydrocortisone 1 % Cream 28.35 Gm Tube) 1 appl TOPICAL BID PRN; Protocol PRN Reason: skin breakdown between fingers Last Admin: 03/14/22 09:20 Dose: 1 appl Hydroxyzine HCl (Hydroxyzine Hcl 25 Mg Tablet) 25 mg PO TID PRN PRN Reason: ANXIETY/SLEEP Last Admin: 03/07/22 23:50 Dose: 25 mg Lurasidone HCl (Lurasidone Hcl 80 Mg Tablet) 80 mg PO BEDTIME [facility] Last Admin: 04/03/22 21:05 Dose: 80 mg Magnesium Hydroxide (Milk Of Magnesia 30 Ml Oral.Susp) 30 ml PO DAILY PRN PRN Reason: Constipation Melatonin (Melatonin 3 Mg Tablet) 9 mg PO BEDTIME [facility] Last Admin: 04/03/22 21:04 Dose: 9 mg Multivitamins/Vitamin C (Multivitamin Tablet) 1 tab PO DAILY [facility] Last Admin: 04/04/22 08:06 Dose: 1 tab Nicotine Polacrilex (Nicotine Polacrilex 2 Mg Gum) 2 mg BUCCAL Q2H PRN PRN Reason: Nicotine Cravings Last Admin: 04/04/22 17:55 Dose: 2 mg Olanzapine (Olanzapine 10 Mg Tablet) 10 mg PO BID PRN PRN Reason: psychotic agitation Olanzapine (Olanzapine 10 Mg Vial) 5 mg IM BEDTIME PRN PRN Reason: If pt refuses PO. Hermes's orde Olanzapine (Olanzapine 2.5 Mg Tablet) 2.5 mg PO BEDTIME [facility] Last Admin: 04/03/22 21:04 Dose: 2.5 mg Polyethylene Glycol (Polyethylene Glycol 3350 17 Gm Powd.Pack) 17 gm PO DAILY [facility] Last Admin: 04/04/22 08:15 Dose: Not Given Senna/Docusate Sodium (Sennosides/Docusate Sodium Tablet) 2 tab PO BEDTIME DUSTIN Last Admin: 04/03/22 21:05 Dose: 2 tab Sodium Biphosphate/Sodium Phosphate (Sodium Phosphate,[place]-Dibasic 133 Ml Enema) 133 ml [place] ONCE PRN PRN Reason: Constipation Allergies Allergies Allergy/AdvReac Type Severity Reaction Status Date / Time aripiprazole [Abilify] Allergy Unknown tongue Verified 03/04/22 10:00 swells and gain weight risperidone [From Risperdal] AdvReac Unknown gain Verified 03/04/22 10:00 weight, and slurred speech cariprazine [From Vraylar] AdvReac Verified 12/19/21 14:42 haloperidol [From Haldol] AdvReac DYSTONIA Verified 02/21/22 18:22 paliperidone AdvReac dystonia Verified 12/19/21 14:42 trazodone AdvReac DYSTONIA Verified 02/21/22 18:23 Assessment & Plan Assessment & Plan (1) Schizoaffective disorder, depressive type: Status: Acute Code(s): F25.1 - Schizoaffective disorder, depressive type Plan Patient with reported schizoaffective depressive ilness admitted with concerns regarding ability to care for self, paranoia, suicidal thoughts off medications for 2 weeks. - Admit for safety - Milieu therapy - DC planning Regarding medications will restart Latuda 80 mg, Zoloft 50 mg, trazodone 150 mg.? Will restart Lamictal at 25 mg as it appears she has been off his for the best part of 2 weeks.? Will also try to clarify Haldol adverse effect of dystonia in context of patient being discharged on same in September 2021. ?02/23/2022:? No changes to current regimen.? Did clarify dystonic reactions in the past ? 02/24/2022: No changes to current regimen 02/26/22: Meeting with mother and OP team 02/28/22. Continue current regime. 02/28/22: Prolixin 1 mg daily to augment Latuda ? May need Section 02/28 if pt begins to refuse medications. 03/01/22 no changes to medication regimen 03/02/22 refused to take medications; not eating.? Patient's roommate reported that in the past few days when she was given medications she would go to her room and throw it up. 03/03/22 Continues to refuse medications. Guardian, pt's mother prefers no IM meds unless absolutely needed. 03/05/22 Pt agrees to Latuda 20 mg daily. Asks to discontinue Sertraline, Lamictal. Guardian prefers no IM meds. 03/06/22 Continue to educate pt regarding treatment for illness. 03/07/22 Cortisone cream for rash on pt's finger. Continue Latuda. Educate, Support. 03/08/22 guarded and difficult to engage; no changes to current treatment plan 03/09/22 START Trazodone 25mg for insomnia Wants to discuss Adderall for concentration. no other changes to current treatment plan 03/11/22 Olanzapine 10 mg bid prn psychotic agitation. 03/13/22 Discharge planning. Pt not wanting further treatment 03/14/22 DC Trazodone 03/15: Continue current regimen and plans 03/16: Continue current plans and regimen 03/17/22 Pt continues to decline treatment. Team meeting to discuss discharge. 03/18/22 Increase Latuda to 40 mg. Pt agrees to treat current symptoms. 03/20/22 Tolerating Latuda increase. Team meeting 03/21/22. 03/21/22 Court 03/25/22 to update Jeancarlos and hear pt's request to terminate guardianship ? Continue to educate regarding meds, risks of behaviors ? Prepare for [facility] if approved by the court. 03/22/22 D/C arthur, reviewed GI consult- much appreciated. On miralax now, along with senna/ docusate. . 03/23/22 No med changes, pt reports she had a BM s/p GI consult. Pt continues with bizarre beliefs and is internally preoccupied. 03/25/22 Pt attended and participated in her court hearing. No decision has been made as yet. Continue current plan. 03/26/22 Increase Latuda to 60 mg daily- pt initiated this request, citing court process of 03/25 ? Benztropine 1 mg bid- pt initiated this request. ? Pt agrees to meeting with her Hermes[employer] monitor, will schedule. 03.28.22 Olanzapine 5 mg hs 03/29/22 continue trial on olanzapine, pt is agreeable 04/02/22- Increase Latuda to 80 mg. If tolerated, will discontinue Olanzapine 2.5 mg scheduled. 04/03/22- Continue current regime Pt allowing for discussion, education, support and disagreement today. 04/04/22- Continue Latuda/Olanzapine I spent minutes with the patient and/or on the patient floor today, greater than?50% of which was spent counseling/coordinating care. Patient educated on: therapeutic strategies Informed Consent: further education needed Reason for contiued inpatient stay Substantial Risk for: harm to self, inability to function and med/psych decompensation
[2022-04-04] MEDS: Melatonin 3 MG TABLET 9 MG PO (20:18)
[2022-04-04] MEDS: Sennosides/Docusate Sodium TABLET 2 TAB PO (20:18)
[2022-04-04] MEDS: Lurasidone HCl 80 MG TABLET PO (20:19)
[2022-04-04] MEDS: OLANZapine 2.5 MG TABLET PO (20:19)
[2022-04-05 06:00] VITALS: BP 119/63; PULSE 82
[2022-04-05] MEDS: polyethylene glycoL 3350 17 GM POWD.PACK PO (11:11)
[2022-04-05] MEDS: Benztropine Mesylate 1 MG TABLET PO ×2 (11:11→21:55)
[2022-04-05] MEDS: Calcium + Vitamin D 250 MG TABLET PO (11:11)
[2022-04-05] MEDS: Multivitamin TABLET 1 TAB PO (11:12)
[2022-04-05] MEDS: Nicotine Polacrilex 2 MG GUM BUCCAL ×6 (11:26→21:56)
--- NOTE | 2022-04-05 17:02 | PC.NURSE ---
Addendum entered by Ebony Taveras RN 04/05/22 17:54: Pt got very upset that environmental services came to clean her room. She said they didn't have to do that, I was going to clean it myself. Can't you give me gloves and I'll get rid of it? Pt required redirection. Original Note: Pt's room continues to smell like vomit. When staff helped pt clean, they found paper bags full of vomit stored in various places throughout the room. Environmental services notified.
--- NOTE | 2022-04-05 17:10 | P.PNPSI_ITS ---
Subjective Subjective Date of Service: 04/05/22 Reason For Visit: Psychosis Interim History: pt says she's good and denies any AVH; says her discharge planning meeting is for next week. Asks about Adderal trial but accepts this is deferred to [facility] guardado. No complaints, no other requests. Mental Status Exam Mental Status Exam Patient Appearance: Appropriate Patient Orientation: Person, Place, Time and Situation Level of Consciousness: Alert Patient Behavior: Appropriate and Good Eye Contact Mood Description: Calm Affect Description: Calm and Constricted Patient Cognition Impaired: Yes Ability to Follow Directions: Fair Speech Pattern: Clear and Spontaneous Speech Memory Description: Remote Impaired Hallucinations: Auditory (currently denies) Delusions: Paranoid Ideation (currently denies) Perceptual Disturbances: Depersonalization and Derealization Thought Process: Distracted and Goal Oriented Thought Content: positive for Preoccupation, positive for Suicidal Ideation (none) and positive for Homicidal Ideation (none) Judgement: Poor Diagnostics Vital Signs (24Hr): Vital Signs - 24 hr 04/05/22 06:00 Pulse Rate 82 Blood Pressure 119/63 BMI result Body Mass Index 22.1 Labs Results: 02/21/22 16:26 02/21/22 16:26 Medications Medications Current Medications Acetaminophen (Acetaminophen 325 Mg Tablet) 650 mg PO Q6H PRN PRN Reason: Headache/Pain Mild Scale (1-3) Last Admin: 03/01/22 07:05 Dose: 650 mg Al Hydroxide/Mg Hydroxide (Magnesium Hydrox/Alum Hydrox 30 Ml Oral.Susp) 30 ml PO Q6H PRN PRN Reason: Heartburn/Nausea Albuterol Sulfate (Albuterol Sulfate 90 Mcg 8 Gm Inhaler) 2 puff INHALE QID PRN PRN Reason: shortness of breath or wheezing Benztropine Mesylate (Benztropine Mesylate 1 Mg Tablet) 1 mg PO BID DUSTIN Last Admin: 04/05/22 11:11 Dose: 1 mg Calcium Carbonate/Cholecalciferol (Calcium + Vitamin D 250 Mg Tablet) 250 mg PO DAILY DUSTIN Last Admin: 04/05/22 11:11 Dose: 250 mg Diphenhydramine HCl (Diphenhydramine Hcl 25 Mg Tablet) 25 mg PO DAILY PRN PRN Reason: DYSTONIA Last Admin: 03/28/22 08:33 Dose: 25 mg Hydrocortisone (Hydrocortisone 1 % Cream 28.35 Gm Tube) 1 appl TOPICAL BID PRN; Protocol PRN Reason: skin breakdown between fingers Last Admin: 03/14/22 09:20 Dose: 1 appl Hydroxyzine HCl (Hydroxyzine Hcl 25 Mg Tablet) 25 mg PO TID PRN PRN Reason: ANXIETY/SLEEP Last Admin: 03/07/22 23:50 Dose: 25 mg Lurasidone HCl (Lurasidone Hcl 80 Mg Tablet) 80 mg PO BEDTIME DUSTIN Last Admin: 04/04/22 20:19 Dose: 80 mg Magnesium Hydroxide (Milk Of Magnesia 30 Ml Oral.Susp) 30 ml PO DAILY PRN PRN Reason: Constipation Melatonin (Melatonin 3 Mg Tablet) 9 mg PO BEDTIME DUSTIN Last Admin: 04/04/22 20:18 Dose: 9 mg Multivitamins/Vitamin C (Multivitamin Tablet) 1 tab PO DAILY DUSTIN Last Admin: 04/05/22 11:12 Dose: 1 tab Nicotine Polacrilex (Nicotine Polacrilex 2 Mg Gum) 2 mg BUCCAL Q2H PRN PRN Reason: Nicotine Cravings Last Admin: 04/05/22 14:56 Dose: 2 mg Olanzapine (Olanzapine 10 Mg Tablet) 10 mg PO BID PRN PRN Reason: psychotic agitation Olanzapine (Olanzapine 10 Mg Vial) 5 mg IM BEDTIME PRN PRN Reason: If pt refuses PO. Hermes's orde Olanzapine (Olanzapine 2.5 Mg Tablet) 2.5 mg PO BEDTIME [facility] Last Admin: 04/04/22 20:19 Dose: 2.5 mg Polyethylene Glycol (Polyethylene Glycol 3350 17 Gm Powd.Pack) 17 gm PO DAILY DUSTIN Last Admin: 04/05/22 11:11 Dose: 17 gm Senna/Docusate Sodium (Sennosides/Docusate Sodium Tablet) 2 tab PO BEDTIME [facility] Last Admin: 04/04/22 20:18 Dose: 2 tab Sodium Biphosphate/Sodium Phosphate (Sodium Phosphate,[place]-Dibasic 133 Ml Enema) 133 ml [place] ONCE PRN PRN Reason: Constipation Allergies Allergies Allergy/AdvReac Type Severity Reaction Status Date / Time aripiprazole [Abilify] Allergy Unknown tongue Verified 03/04/22 10:00 swells and gain weight risperidone [From Risperdal] AdvReac Unknown gain Verified 03/04/22 10:00 weight, and slurred speech cariprazine [From Vraylar] AdvReac Verified 12/19/21 14:42 haloperidol [From Haldol] AdvReac DYSTONIA Verified 02/21/22 18:22 paliperidone AdvReac dystonia Verified 12/19/21 14:42 trazodone AdvReac DYSTONIA Verified 02/21/22 18:23 Assessment & Plan Assessment & Plan (1) Schizoaffective disorder, depressive type: Status: Acute Code(s): F25.1 - Schizoaffective disorder, depressive type Plan Patient with reported schizoaffective depressive ilness admitted with concerns regarding ability to care for self, paranoia, suicidal thoughts off medications for 2 weeks. - Admit for safety - Milieu therapy - DC planning Regarding medications will restart Latuda 80 mg, Zoloft 50 mg, trazodone 150 mg.? Will restart Lamictal at 25 mg as it appears she has been off his for the best part of 2 weeks.? Will also try to clarify Haldol adverse effect of dystonia in context of patient being discharged on same in September 2021. ?02/23/2022:? No changes to current regimen.? Did clarify dystonic reactions in the past ? 02/24/2022: No changes to current regimen 02/26/22: Meeting with mother and OP team 02/28/22. Continue current regime. 02/28/22: Prolixin 1 mg daily to augment Latuda ? May need Section 02/28 if pt begins to refuse medications. 03/01/22 no changes to medication regimen 03/02/22 refused to take medications; not eating.? Patient's roommate reported that in the past few days when she was given medications she would go to her room and throw it up. 03/03/22 Continues to refuse medications. Guardian, pt's mother prefers no IM meds unless absolutely needed. 03/05/22 Pt agrees to Latuda 20 mg daily. Asks to discontinue Sertraline, Lamictal. Guardian prefers no IM meds. 03/06/22 Continue to educate pt regarding treatment for illness. 03/07/22 Cortisone cream for rash on pt's finger. Continue Latuda. Educate, Support. 03/08/22 guarded and difficult to engage; no changes to current treatment plan 03/09/22 START Trazodone 25mg for insomnia Wants to discuss Adderall for concentration. no other changes to current treatment plan 03/11/22 Olanzapine 10 mg bid prn psychotic agitation. 03/13/22 Discharge planning. Pt not wanting further treatment 03/14/22 DC Trazodone 03/15: Continue current regimen and plans 03/16: Continue current plans and regimen 03/17/22 Pt continues to decline treatment. Team meeting to discuss discharge. 03/18/22 Increase Latuda to 40 mg. Pt agrees to treat current symptoms. 03/20/22 Tolerating Latuda increase. Team meeting 03/21/22. 03/21/22 Court 03/25/22 to update Arshad and hear pt's request to terminate guardianship ? Continue to educate regarding meds, risks of behaviors ? Prepare for [facility] if approved by the court. 03/22/22 D/C arthur, reviewed GI consult- much appreciated. On miralax now, along with senna/ docusate. . 03/23/22 No med changes, pt reports she had a BM s/p GI consult. Pt continues with bizarre beliefs and is internally preoccupied. 03/25/22 Pt attended and participated in her court hearing. No decision has been made as yet. Continue current plan. 03/26/22 Increase Latuda to 60 mg daily- pt initiated this request, citing court process of 03/25 ? Benztropine 1 mg bid- pt initiated this request. ? Pt agrees to meeting with her [employer] monitor, will schedule. 03.28.22 Olanzapine 5 mg hs 03/29/22 continue trial on olanzapine, pt is agreeable 04/02/22- Increase Latuda to 80 mg. If tolerated, will discontinue Olanzapine 2.5 mg scheduled. 04/03/22- Continue current regime Pt allowing for discussion, education, support and disagreement today. 04/04/22- Continue Latuda/Olanzapine 04/05/22-continue current tx plan; no changes I spent minutes with the patient and/or on the patient floor today, greater than?50% of which was spent counseling/coordinating care. Patient educated on: diagnosis and medication risk/benefits Informed Consent: understands Reason for contiued inpatient stay Substantial Risk for: med/psych decompensation
[2022-04-05] MEDS: Melatonin 3 MG TABLET 9 MG PO (21:54)
[2022-04-05] MEDS: Lurasidone HCl 80 MG TABLET PO (21:55)
[2022-04-05] MEDS: OLANZapine 2.5 MG TABLET PO (21:55)
[2022-04-05] MEDS: Sennosides/Docusate Sodium TABLET 2 TAB PO (21:55)
[2022-04-06 06:00] VITALS: RESP 16
[2022-04-06] MEDS: Multivitamin TABLET 1 TAB PO (09:13)
[2022-04-06] MEDS: Benztropine Mesylate 1 MG TABLET PO ×2 (09:13→20:53)
[2022-04-06] MEDS: Calcium + Vitamin D 250 MG TABLET PO (09:13)
[2022-04-06] MEDS: Nicotine Polacrilex 2 MG GUM BUCCAL ×4 (13:20→21:03)
--- NOTE | 2022-04-06 14:24 | P.PNPSI_ITS ---
Subjective Subjective Date of Service: 04/06/22 Reason For Visit: Psychosis Interim History: Patient says she is finding that she slept well. Staff found numerous plastic bags in her room with vomit in them. She says it is mostly just spit up and told this content writer that it is because she is lactose intolerant and has Gerd. She said she is irritated because people are worried that she is vomiting up her medication but she says there are no pills and a the bags, one can see. Trim Stencil Maker offered to get some Lactaid which she agrees Mental Status Exam Mental Status Exam Patient Appearance: Appropriate Patient Orientation: Person, Place, Time and Situation Level of Consciousness: Alert Patient Behavior: Appropriate, Guarded, Resistive to Care and Good Eye Contact Mood Description: Calm Affect Description: Calm and Constricted Patient Cognition Impaired: Yes Ability to Follow Directions: Poor Speech Pattern: Clear and Spontaneous Speech Memory Description: Remote Impaired Hallucinations: Auditory (currently denies) Delusions: Paranoid Ideation (currently denies) Perceptual Disturbances: Depersonalization and Derealization Thought Process: Distracted and Goal Oriented Thought Content: positive for Preoccupation, positive for Suicidal Ideation (none) and positive for Homicidal Ideation (none) Judgement: Poor Diagnostics Vital Signs (24Hr): Vital Signs - 24 hr 04/06/22 06:00 Respiratory Rate 16 BMI result Body Mass Index 22.1 Labs Results: 02/21/22 16:26 02/21/22 16:26 Medications Medications Current Medications Acetaminophen (Acetaminophen 325 Mg Tablet) 650 mg PO Q6H PRN PRN Reason: Headache/Pain Mild Scale (1-3) Last Admin: 03/01/22 07:05 Dose: 650 mg Al Hydroxide/Mg Hydroxide (Magnesium Hydrox/Alum Hydrox 30 Ml Oral.Susp) 30 ml PO Q6H PRN PRN Reason: Heartburn/Nausea Albuterol Sulfate (Albuterol Sulfate 90 Mcg 8 Gm Inhaler) 2 puff INHALE QID PRN PRN Reason: shortness of breath or wheezing Benztropine Mesylate (Benztropine Mesylate 1 Mg Tablet) 1 mg PO BID [facility] Last Admin: 04/06/22 09:13 Dose: 1 mg Calcium Carbonate/Cholecalciferol (Calcium + Vitamin D 250 Mg Tablet) 250 mg PO DAILY [facility] Last Admin: 04/06/22 09:13 Dose: 250 mg Diphenhydramine HCl (Diphenhydramine Hcl 25 Mg Tablet) 25 mg PO DAILY PRN PRN Reason: DYSTONIA Last Admin: 03/28/22 08:33 Dose: 25 mg Hydrocortisone (Hydrocortisone 1 % Cream 28.35 Gm Tube) 1 appl TOPICAL BID PRN; Protocol PRN Reason: skin breakdown between fingers Last Admin: 03/14/22 09:20 Dose: 1 appl Hydroxyzine HCl (Hydroxyzine Hcl 25 Mg Tablet) 25 mg PO TID PRN PRN Reason: ANXIETY/SLEEP Last Admin: 03/07/22 23:50 Dose: 25 mg Lurasidone HCl (Lurasidone Hcl 80 Mg Tablet) 80 mg PO BEDTIME [facility]UST[facility] Last Admin: 04/05/22 21:55 Dose: 80 mg Magnesium Hydroxide (Milk Of Magnesia 30 Ml Oral.Susp) 30 ml PO DAILY PRN PRN Reason: Constipation Melatonin (Melatonin 3 Mg Tablet) 9 mg PO BEDTIME DUSTIN Last Admin: 04/05/22 21:54 Dose: 9 mg Multivitamins/Vitamin C (Multivitamin Tablet) 1 tab PO DAILY [facility] Last Admin: 04/06/22 09:13 Dose: 1 tab Nicotine Polacrilex (Nicotine Polacrilex 2 Mg Gum) 2 mg BUCCAL Q2H PRN PRN Reason: Nicotine Cravings Last Admin: 04/06/22 13:20 Dose: 2 mg Olanzapine (Olanzapine 10 Mg Tablet) 10 mg PO BID PRN PRN Reason: psychotic agitation Olanzapine (Olanzapine 10 Mg Vial) 5 mg IM BEDTIME PRN PRN Reason: If pt refuses PO. Hermes's orde Olanzapine (Olanzapine 2.5 Mg Tablet) 2.5 mg PO BEDTIME DUSTIN Last Admin: 04/05/22 21:55 Dose: 2.5 mg Polyethylene Glycol (Polyethylene Glycol 3350 17 Gm Powd.Pack) 17 gm PO DAILY [facility]USTIN Last Admin: 04/06/22 09:13 Dose: Not Given Senna/Docusate Sodium (Sennosides/Docusate Sodium Tablet) 2 tab PO BEDTIME [facility]USTIN Last Admin: 04/05/22 21:55 Dose: 2 tab Sodium Biphosphate/Sodium Phosphate (Sodium Phosphate,[place]-Dibasic 133 Ml Enema) 133 ml IA ONCE PRN PRN Reason: Constipation Allergies Allergies Allergy/AdvReac Type Severity Reaction Status Date / Time aripiprazole [Abilify] Allergy Unknown tongue Verified 03/04/22 10:00 swells and gain weight risperidone [From Risperdal] AdvReac Unknown gain Verified 03/04/22 10:00 weight, and slurred speech cariprazine [From Vraylar] AdvReac Verified 12/19/21 14:42 haloperidol [From Haldol] AdvReac DYSTONIA Verified 02/21/22 18:22 paliperidone AdvReac dystonia Verified 12/19/21 14:42 trazodone AdvReac DYSTONIA Verified 02/21/22 18:23 Assessment & Plan Assessment & Plan (1) Schizoaffective disorder, depressive type: Status: Acute Code(s): F25.1 - Schizoaffective disorder, depressive type Plan Patient with reported schizoaffective depressive ilness admitted with concerns regarding ability to care for self, paranoia, suicidal thoughts off medications for 2 weeks. - Admit for safety - Milieu therapy - DC planning Regarding medications will restart Latuda 80 mg, Zoloft 50 mg, trazodone 150 mg.? Will restart Lamictal at 25 mg as it appears she has been off his for the best part of 2 weeks.? Will also try to clarify Haldol adverse effect of dystonia in context of patient being discharged on same in September 2021. ?02/23/2022:? No changes to current regimen.? Did clarify dystonic reactions in the past ? 02/24/2022: No changes to current regimen 02/26/22: Meeting with mother and OP team 02/28/22. Continue current regime. 02/28/22: Prolixin 1 mg daily to augment Latuda ? May need Section 7/8 if pt begins to refuse medications. 03/01/22 no changes to medication regimen 03/02/22 refused to take medications; not eating.? Patient's roommate reported that in the past few days when she was given medications she would go to her room and throw it up. 03/03/22 Continues to refuse medications. Guardian, pt's mother prefers no IM meds unless absolutely needed. 03/05/22 Pt agrees to Latuda 20 mg daily. Asks to discontinue Sertraline, Lamictal. Guardian prefers no IM meds. 03/06/22 Continue to educate pt regarding treatment for illness. 03/07/22 Cortisone cream for rash on pt's finger. Continue Latuda. Educate, Support. 03/08/22 guarded and difficult to engage; no changes to current treatment plan 03/09/22 START Trazodone 25mg for insomnia Wants to discuss Adderall for concentration. no other changes to current treatment plan 03/11/22 Olanzapine 10 mg bid prn psychotic agitation. 03/13/22 Discharge planning. Pt not wanting further treatment 03/14/22 DC Trazodone 03/15: Continue current regimen and plans 03/16: Continue current plans and regimen 03/17/22 Pt continues to decline treatment. Team meeting to discuss discharge. 03/18/22 Increase Latuda to 40 mg. Pt agrees to treat current symptoms. 03/20/22 Tolerating Latuda increase. Team meeting 03/21/22. 03/21/22 Court 03/25/22 to update Jeancarlos and hear pt's request to terminate gu ardianship ? Continue to educate regarding meds, risks of behaviors ? Prepare for [facility]OTT if approved by the court. 03/22/22 D/C arthur, reviewed GI consult- much appreciated. On miralax now, along with senna/ docusate. . 03/23/22 No med changes, pt reports she had a BM s/p GI consult. Pt continues with bizarre beliefs and is internally preoccupied. 03/25/22 Pt attended and participated in her court hearing. No decision has been made as yet. Continue current plan. 03/26/22 Increase Latuda to 60 mg daily- pt initiated this request, citing court process of 03/25 ? Benztropine 1 mg bid- pt initiated this request. ? Pt agrees to meeting with her Hermes's monitor, will schedule. 03.28.22 Olanzapine 5 mg hs 03/29/22 continue trial on olanzapine, pt is agreeable 04/02/22- Increase Latuda to 80 mg. If tolerated, will discontinue Olanzapine 2.5 mg scheduled. 04/03/22- Continue current regime Pt allowing for discussion, education, support and disagreement today. 04/04/22- Continue Latuda/Olanzapine 04/05/22-continue current tx plan; no changes 04/06/22 -added Lactaid since says dairy is causing her to vomit -otherwise, continue current tx plan; no changes I spent minutes with the patient and/or on the patient floor today, greater than?50% of which was spent counseling/coordinating care. Patient educated on: medication risk/benefits and medical condition Informed Consent: further education needed Reason for contiued inpatient stay Substantial Risk for: med/psych decompensation
[2022-04-06] MEDS: Lactase TABLET 1 TAB PO (16:00)
[2022-04-06 17:07] VITALS: BP 105/65; PULSE 107; RESP 16
[2022-04-06] MEDS: Lurasidone HCl 80 MG TABLET PO (20:53)
[2022-04-06] MEDS: Sennosides/Docusate Sodium TABLET 2 TAB PO (20:53)
[2022-04-06] MEDS: OLANZapine 2.5 MG TABLET PO (20:54)
[2022-04-06] MEDS: Melatonin 3 MG TABLET 9 MG PO (20:54)
[2022-04-07] MEDS: Multivitamin TABLET 1 TAB PO (10:31)
[2022-04-07] MEDS: Calcium + Vitamin D 250 MG TABLET PO (10:31)
[2022-04-07] MEDS: Lactase TABLET 1 TAB PO ×3 (10:32→17:10)
[2022-04-07] MEDS: Benztropine Mesylate 1 MG TABLET PO ×2 (10:32→20:18)
[2022-04-07] MEDS: Nicotine Polacrilex 2 MG GUM BUCCAL ×4 (14:28→20:18)
[2022-04-07 18:00] VITALS: BP 127/78; PULSE 70; RESP 16; TEMP 36.7; O2SAT 99
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
[2022-04-07] MEDS: OLANZapine 2.5 MG TABLET PO (20:18)
[2022-04-07] MEDS: Sennosides/Docusate Sodium TABLET 2 TAB PO (20:18)
[2022-04-07] MEDS: Melatonin 3 MG TABLET 9 MG PO (20:18)
[2022-04-07] MEDS: Lurasidone HCl 80 MG TABLET PO (20:18)
[2022-04-08 06:00] VITALS: BP 109/76; PULSE 63; RESP 16; TEMP 36.6; O2SAT 99
[2022-04-08] MEDS: polyethylene glycoL 3350 17 GM POWD.PACK PO (08:30)
[2022-04-08] MEDS: Lactase TABLET 1 TAB PO ×3 (08:30→17:25)
[2022-04-08] MEDS: Calcium + Vitamin D 250 MG TABLET PO (08:30)
[2022-04-08] MEDS: Multivitamin TABLET 1 TAB PO (08:30)
[2022-04-08] MEDS: Benztropine Mesylate 1 MG TABLET PO ×2 (08:30→20:22)
[2022-04-08] MEDS: Nicotine Polacrilex 2 MG GUM BUCCAL ×2 (11:23→19:20)
--- NOTE | 2022-04-08 17:02 | HO.PSYCHPN ---
Subjective Subjective Date of Service: 04/08/22 Reason For Visit: Psychosis Interim History: reports good mood; says no longer bothered about challenging family meeting yesterday and is looking forward to discharge. Denies psychiatric symptoms Mental Status Exam Mental Status Exam Patient Appearance: Appropriate Patient Orientation: Person, Place, Time and Situation Level of Consciousness: Alert Patient Behavior: Appropriate, Guarded and Good Eye Contact Mood Description: Calm Affect Description: Calm and Constricted Patient Cognition Impaired: Yes Ability to Follow Directions: Poor Speech Pattern: Clear and Spontaneous Speech Memory Description: Remote Impaired Hallucinations: Auditory (currently denies) Delusions: Paranoid Ideation (currently denies) Perceptual Disturbances: Depersonalization and Derealization Thought Process: Distracted and Goal Oriented Thought Content: positive for Preoccupation, positive for Suicidal Ideation (none) and positive for Homicidal Ideation (none) Judgement: Poor Diagnostics Vital Signs (24Hr): Vital Signs - 24 hr 04/07/22 18:00 04/08/22 06:00 Temperature 98.1 F 97.9 F Pulse Rate 70 63 Respiratory Rate 16 16 Blood Pressure 127/78 109/76 Pulse Oximetry 99 99 Oxygen Delivery Method Room Air Room Air BMI result Body Mass Index 22.1 Labs Results: 04/09/22 10:19 04/09/22 10:19 Medications Medications Current Medications Acetaminophen (Acetaminophen 325 Mg Tablet) 650 mg PO Q6H PRN PRN Reason: Headache/Pain Mild Scale (1-3) Last Admin: 03/01/22 07:05 Dose: 650 mg Al Hydroxide/Mg Hydroxide (Magnesium Hydrox/Alum Hydrox 30 Ml Oral.Susp) 30 ml PO Q6H PRN PRN Reason: Heartburn/Nausea Albuterol Sulfate (Albuterol Sulfate 90 Mcg 8 Gm Inhaler) 2 puff INHALE QID PRN PRN Reason: shortness of breath or wheezing Benztropine Mesylate (Benztropine Mesylate 1 Mg Tablet) 1 mg PO BID [facility] Last Admin: 04/08/22 08:30 Dose: 1 mg Calcium Carbonate/Cholecalciferol (Calcium + Vitamin D 250 Mg Tablet) 250 mg PO DAILY DUSTIN Last Admin: 04/08/22 08:30 Dose: 250 mg Diphenhydramine HCl (Diphenhydramine Hcl 25 Mg Tablet) 25 mg PO DAILY PRN PRN Reason: DYSTONIA Last Admin: 03/28/22 08:33 Dose: 25 mg Hydrocortisone (Hydrocortisone 1 % Cream 28.35 Gm Tube) 1 appl TOPICAL BID PRN; Protocol PRN Reason: skin breakdown between fingers Last Admin: 03/14/22 09:20 Dose: 1 appl Hydroxyzine HCl (Hydroxyzine Hcl 25 Mg Tablet) 25 mg PO TID PRN PRN Reason: ANXIETY/SLEEP Last Admin: 03/07/22 23:50 Dose: 25 mg Lactase (Lactase Tablet) 1 tab PO TIDWM DUSTIN Last Admin: 04/08/22 13:12 Dose: 1 tab Lurasidone HCl (Lurasidone Hcl 80 Mg Tablet) 80 mg PO BEDTIME DUSTIN Last Admin: 04/07/22 20:18 Dose: 80 mg Magnesium Hydroxide (Milk Of Magnesia 30 Ml Oral.Susp) 30 ml PO DAILY PRN PRN Reason: Constipation Melatonin (Melatonin 3 Mg Tablet) 9 mg PO BEDTIME DUSTIN Last Admin: 04/07/22 20:18 Dose: 9 mg Multivitamins/Vitamin C (Multivitamin Tablet) 1 tab PO DAILY DUSTIN Last Admin: 04/08/22 08:30 Dose: 1 tab Nicotine Polacrilex (Nicotine Polacrilex 2 Mg Gum) 2 mg BUCCAL Q2H PRN PRN Reason: Nicotine Cravings Last Admin: 04/08/22 11:23 Dose: 2 mg Olanzapine (Olanzapine 10 Mg Tablet) 10 mg PO BID PRN PRN Reason: psychotic agitation Olanzapine (Olanzapine 10 Mg Vial) 5 mg IM BEDTIME PRN PRN Reason: If pt refuses PO. Hermes's orde Olanzapine (Olanzapine 2.5 Mg Tablet) 2.5 mg PO BEDTIME [facility] Last Admin: 04/07/22 20:18 Dose: 2.5 mg Polyethylene Glycol (Polyethylene Glycol 3350 17 Gm Powd.Pack) 17 gm PO DAILY DUSTIN Last Admin: 04/08/22 08:30 Dose: 17 gm Senna/Docusate Sodium (Sennosides/Docusate Sodium Tablet) 2 tab PO BEDTIME DUSTIN Last Admin: 04/07/22 20:18 Dose: 2 tab Sodium Biphosphate/Sodium Phosphate (Sodium Phosphate,[place]-Dibasic 133 Ml Enema) 133 ml SD ONCE PRN PRN Reason: Constipation Allergies Allergies Allergy/AdvReac Type Severity Reaction Status Date / Time aripiprazole [Abilify] Allergy Unknown tongue Verified 03/04/22 10:00 swells and gain weight risperidone [From Risperdal] AdvReac Unknown gain Verified 03/04/22 10:00 weight, and slurred speech cariprazine [From Vraylar] AdvReac Verified 12/19/21 14:42 haloperidol [From Haldol] AdvReac DYSTONIA Verified 02/21/22 18:22 paliperidone AdvReac dystonia Verified 12/19/21 14:42 trazodone AdvReac DYSTONIA Verified 02/21/22 18:23 Assessment & Plan Assessment & Plan (1) Schizoaffective disorder, depressive type: Status: Acute Code(s): F25.1 - Schizoaffective disorder, depressive type Plan Patient with reported schizoaffective depressive ilness admitted with concerns regarding ability to care for self, paranoia, suicidal thoughts off medications for 2 weeks. - Admit for safety - Milieu therapy - DC planning Regarding medications will restart Latuda 80 mg, Zoloft 50 mg, trazodone 150 mg.? Will restart Lamictal at 25 mg as it appears she has been off his for the best part of 2 weeks.? Will also try to clarify Haldol adverse effect of dystonia in context of patient being discharged on same in September 2021. ?02/23/2022:? No changes to current regimen.? Did clarify dystonic reactions in the past ? 02/24/2022: No changes to current regimen 02/26/22: Meeting with mother and OP team 02/28/22. Continue current regime. 02/28/22: Prolixin 1 mg daily to augment Latuda ? May need Section /8 if pt begins to refuse medications. 03/01/22 no changes to medication regimen 03/02/22 refused to take medications; not eating.? Patient's roommate reported that in the past few days when she was given medications she would go to her room and throw it up. 03/03/22 Continues to refuse medications. Guardian, pt's mother prefers no IM meds unless absolutely needed. 03/05/22 Pt agrees to Latuda 20 mg daily. Asks to discontinue Sertraline, Lamictal. Guardian prefers no IM meds. 03/06/22 Continue to educate pt regarding treatment for illness. 03/07/22 Cortisone cream for rash on pt's finger. Continue Latuda. Educate, Support. 03/08/22 guarded and difficult to engage; no changes to current treatment plan 03/09/22 START Trazodone 25mg for insomnia Wants to discuss Adderall for concentration. no other changes to current treatment plan 03/11/22 Olanzapine 10 mg bid prn psychotic agitation. 03/13/22 Discharge planning. Pt not wanting further treatment 03/14/22 DC Trazodone 03/15: Continue current regimen and plans 03/16: Continue current plans and regimen 03/17/22 Pt continues to decline treatment. Team meeting to discuss discharge. 03/18/22 Increase Latuda to 40 mg. Pt agrees to treat current symptoms. 03/20/22 Tolerating Latuda increase. Team meeting 03/21/22. 03/21/22 Court 03/25/22 to update Jeancarlos and hear pt's request to terminate guardianship ? Continue to educate regarding meds, risks of behaviors ? Prepare for SCOTT if approved by the court. 03/22/22 D/C arthur, reviewed GI consult- much appreciated. On miralax now, along with senna/ docusate. . 03/23/22 No med changes, pt reports she had a s/p GI consult. Pt continues with bizarre beliefs and is internally preoccupied. 03/25/22 Pt attended and participated in her court hearing. No decision has been made as yet. Continue current plan. 03/26/22 Increase Latuda to 60 mg daily- pt initiated this request, citing court process of 03/25 ? Benztropine 1 mg bid- pt initiated this request. ? Pt agrees to meeting with her Hermes's monitor, will schedule. 03.28.22 Olanzapine 5 mg hs 03/29/22 continue trial on olanzapine, pt is agreeable 04/02/22- Increase Latuda to 80 mg. If tolerated, will discontinue Olanzapine 2.5 mg scheduled. 04/03/22- Continue current regime Pt allowing for discussion, education, support and disagreement today. 04/04/22- Continue Latuda/Olanzapine 04/05/22-continue current tx plan; no changes 04/06/22 -added Lactaid since says dairy is causing her to vomit -otherwise, continue current tx plan; no changes 04/07/22 Discharge 04/09 Continue current plan. 04/08 no changes to tx plan I spent minutes with the patient and/or on the patient floor today, greater than?50% of which was spent counseling/coordinating care. Patient educated on: medication risk/benefits Informed Consent: further education needed Reason for contiued inpatient stay Substantial Risk for: other
[2022-04-08 18:00] VITALS: RESP 18
[2022-04-08] MEDS: Melatonin 3 MG TABLET 9 MG PO (20:22)
[2022-04-08] MEDS: Lurasidone HCl 80 MG TABLET PO (20:22)
[2022-04-08] MEDS: OLANZapine 2.5 MG TABLET PO (20:22)
[2022-04-08] MEDS: Sennosides/Docusate Sodium TABLET 2 TAB PO (20:22)
[2022-04-09] MEDS: polyethylene glycoL 3350 17 GM POWD.PACK PO (09:25)
[2022-04-09] MEDS: Multivitamin TABLET 1 TAB PO (09:25)
[2022-04-09] MEDS: Benztropine Mesylate 1 MG TABLET PO (09:25)
[2022-04-09] MEDS: Lactase TABLET 1 TAB PO ×2 (09:25→11:22)
[2022-04-09] MEDS: Calcium + Vitamin D 250 MG TABLET PO (09:25)
[2022-04-09 10:28] LABS: MANUAL DIFF FLAG NO
[2022-04-09 10:30] LABS: Basophils Percent Auto 0.7 % (0-2); Eosinophils Absolute Auto 0.1 X10*3/uL (0.0-0.4); Eosinophils Percent Auto 1.8 % (0-4); Hematocrit 37.8 % (37.0-47.0); Hemoglobin 13.4 g/dl (12.0-16.0); Imm Gran Abs Auto 0.01 X10*3/uL (0.00-0.03); Imm Gran Pct Auto 0.2 % (0.0-0.4); Lymphocytes Absolute Auto 1.9 X10*3/uL (1.2-4.9); Mean Corpuscular HGB Conc 35.4 g/dl (31.0-35.0); Mean Corpuscular Hemoglobin 31.6 pg (27.0-33.0); Mean Corpuscular Volume 89.2 fL (80.0-98.0); Mean Platelet Volume 10.9 fL (9.4-12.3); Monocytes Absolute Auto 0.4 X10*3/uL (0.1-1.2); Monocytes Percent Auto 7.4 % (2-11); Neutrophils Percent Auto 54.9 % (45-73); Platelet Count 216 X10*3/uL (160-400); Red Blood Count 4.24 X10*6/uL (4.20-5.50); Red Cell Distribution Width 11.6 % (11.0-16.0); White Blood Count 5.4 X10*3/uL (4.8-10.8)
[2022-04-09 10:45] LABS: Alanine Aminotransferase 28 U/L (0-31); Albumin Level 4.8 g/dL (3.5-5.0); Alkaline Phosphatase 44 U/L (39-117); Anion Gap 15 (12-20); Aspartate Amino Transferase 21 U/L (5-31); Bilirubin Total 0.5 mg/dL (0.0-1.0); Blood Urea Nitrogen 8 mg/dL (9-16); Calcium 9.8 mg/dL (8.4-10.2); Carbon Dioxide 25 mmol/L (22-29); Chloride 102 mmol/L (96-108); Creatinine Clr Calc Pharmacy 92.6; Estimated Glomerular Filt Rate > 60; Glucose Random 93 mg/dL (60-115); Potassium 4.1 mmol/L (3.3-5.1); Sodium 138 mmol/L (135-145); Total Protein 7.4 g/dL (6.5-8.0)
[2022-04-09 10:52] LABS: Estimated Average Glucose 91 mg/dL; Hemoglobin A1c % 4.8 %
--- NOTE | 2022-04-09 15:59 | PM.PSYDC ---
DS: Providers Provider Date of Service: 04/09/22 Date of admission: 02/21/22 22:16 Date of discharge: 04/09/22 Primary care physician: Latha Caputo NP Admitting clinician: Rafael Pichardo Attending physician on admission: Rafael Pichardo Attending physician on discharge: Zeferino Gentile Discharging clinician: Zee Washington DS: Diagnosis Discharge Diagnosis (1) Schizoaffective disorder, depressive type: Status: Acute DS: Medications Discharge Medications Home Medications: Previous Rx's Medication Instructions Recorded ProAir HFA 90 mcg/actuation 2 puff inhalation QID PRN 04/09/22 aerosol inhaler (albuterol sulfate) shortness of breath or wheezing #1 inhaler benztropine 1 mg tablet 1 mg PO BID #60 tabs 04/09/22 calcium carbonate 250 mg-vitamin 250 mg PO DAILY #30 tabs 04/09/22 D3 3.125 mcg (125 unit) tablet cholecalciferol (vitamin D3) 25 1 cap PO DAILY #30 caps 04/09/22 mcg (1,000 unit) capsule (Vitamin D3) diphenhydramine HCl 25 mg tablet 25 mg PO DAILY PRN DYSTONIA #30 04/09/22 (Banophen) tabs folic acid 400 mcg tablet 0.4 mg PO DAILY #30 tabs 04/09/22 food supplemt, lactose-reduced 1 ea PO TID-QID PRN nutritional 04/09/22 (Ensure High Protein oral liquid) supplementation #5,688 mL hydrocortisone 1 % topical cream 1 appl topical BID PRN skin 04/09/22 breakdown between fingers #1 applicator hydroxyzine pamoate 25 mg capsule 1 cap PO TID PRN ANXIETY/SLEEP #90 04/09/22 caps lactase 3,000 unit tablet 1 tab PO TIDWM #90 tabs 04/09/22 lurasidone 80 mg tablet (Latuda) 80 mg PO BEDTIME #30 tabs 04/09/22 melatonin 5 mg tablet 10 mg PO BEDTIME #60 tabs 04/09/22 multivitamin 1 tab PO DAILY #30 tabs 04/09/22 nicotine (polacrilex) 2 mg gum 1 ea PO Q2H PRN Nicotine Cravings 04/09/22 #60 ea olanzapine 2.5 mg tablet 2.5 mg PO BEDTIME #30 tabs 04/09/22 polyethylene glycol 3350 17 gram 17 g PO DAILY #110 ea 04/09/22 oral powder packet polyethylene glycol 3350 17 17 g PO DAILY PRN constipation 04/09/22 gram/dose oral powder (Gavilax) #110 grams pyridoxine (vitamin B6) 50 mg 25 mg PO DAILY #15 tabs 04/09/22 tablet sennosides 8.6 mg tablet (senna) 8.6 mg PO BID #60 tabs 04/09/22 sennosides 8.6 mg-docusate sodium 2 tab PO BEDTIME #60 tabs 04/09/22 50 mg tablet (Senna Plus) Mental Status Exam Mental Status Exam Patient Appearance: Appropriate Patient Orientation: Person, Place, Time and Situation Level of Consciousness: Alert Patient Behavior: Talkative and Good Eye Contact Mood Description: Labile Affect Description: Labile Patient Cognition Impaired: No Ability to Follow Directions: Good Speech Pattern: Spontaneous Speech Memory Description: Episodic Impaired Hallucinations: None Delusions: Not Present Perceptual Disturbances: Depersonalization Thought Process: Distracted and Rumination Thought Content: positive for [place] and positive for Circumstantial Depressive Symptoms: Increased Anxiety, Increased Irritability, Changes in Appetite, Feelings of Worthlessness and Low Self Esteem Abnormal Motor Activity Signs and Symptoms: Restlessness Judgement: Fair Data Data Completed and Pending Completed studies during hospitalization [Text1]: 04/09/22 04/09/22 04/09/22 10:19 10:19 10:19 WBC 5.4 RBC 4.24 Hgb 13.4 Hct 37.8 MCV 89.2 MCH 31.6 MCHC 35.4 H RDW 11.6 Plt Count 216 MPV 10.9 Immature Gran % (Auto) 0.2 Neut % (Auto) 54.9 Lymph % (Auto) 35.0 [place] % (Auto) 7.4 Eos % (Auto) 1.8 Baso % (Auto) 0.7 Lymph # (Auto) 1.9 [place] # (Auto) 0.4 Eos # (Auto) 0.1 Baso # (Auto) 0.0 Abs Immat Gran (auto) 0.01 Absolute Neuts (auto) 3.0 Absolute Nucleated RBC 0.000 Nucleated RBC % (auto) 0.0 Sodium 138 Potassium 4.1 Chloride 102 Carbon Dioxide 25 Anion Gap 15 BUN 8 L D Creatinine 0.83 Estim Creat Clear Calc 92.6 Estimated GFR > 60 Random Glucose 93 Estimat Average Glucose 91 Hemoglobin A1c % 4.8 Calcium 9.8 Total Bilirubin 0.5 AST 21 ALT 28 Alkaline Phosphatase 44 Total Protein 7.4 Albumin 4.8 TSH 1.50 DS: Summary Hospital Course Hospital Course: Admission to adult psychiatry for exacerbation of symptoms of schizoaffective disorder, polysubstance abuse (alcohol, cannabis) and treatment resistance. Pt is under guardianship, however was resistant to medication changes throughout her admission, citing her belief that she does not have mental illness and treatment is not necessary, however with team effort and pt being accepting of education and support she finally agreed to increase Latuda, add a small dose of Olanzapine and Benztropine. She did however, discontinue Lamictal and Sertraline. She plans to approach the court to apply to discontinue the guardianship and Hermes's guardianship. Medication compliance remains an issue and will continue as an issue upon discharge. Given pt's allergy and adverse reaction profile, SCOTT use is limited in options for the future. Time spent discussing smoking cessation with patient: 3 to 10 minutes Status at Discharge Functional status at discharge: independent ambulation Overall status at discharge: patient is back to baseline Time Spent with Patient Time attestation: Total time spent providing and/or coordinating discharge services: 35 Time spent: Greater than 30 minutes Discharge Plan Discharge Patient Disposition: Xfer Other Discharge Diagnosis: Schizoaffective Disorder, depressed type Chronic constipation Referrals: Therapist: Thu Greene ([facility]) [Other] - 04/11/22 11:00 am (Virtual appointment- [facility] ) Psych Prescriber: Mikayla Harrington ([facility]) [Other] - 04/14/22 10:00 am (Telehealth ) Brianna Dunn MD [Physician] - 1 Week (OFFICE WILL CALL PT. WITH F/U APPOINTMENT) Discharge Medications: New polyethylene glycol 3350 17 gram Powder In Packet 17 g PO DAILY Qty: 110 0RF sennosides-docusate sodium [Senna Plus] 8.6-50 mg Tablet 2 tab PO BEDTIME Qty: 60 0RF olanzapine 2.5 mg Tablet 2.5 mg PO BEDTIME Qty: 30 0RF hydrocortisone 1 % Cream 1 appl topical BID PRN (Reason: skin breakdown between fingers) Qty: 1 0RF Protocol: Apply to: Apply to: affected areas between fingers benztropine 1 mg Tablet 1 mg PO BID Qty: 60 0RF lactase 3,000 unit Tablet 1 tab PO TIDWM Qty: 90 0RF Ensure High Protein Liquid 1 ea PO TID-QID PRN (Reason: nutritional supplementation) Qty: 5688 0RF Continued multivitamin Tablet 1 tab PO DAILY Qty: 30 0RF sennosides [senna] 8.6 mg tablet 8.6 mg PO BID Qty: 60 0RF nicotine (polacrilex) 2 mg gum 1 ea PO Q2H PRN (Reason: Nicotine Cravings) Qty: 60 0RF folic acid 400 mcg Tablet 0.4 mg PO DAILY Qty: 30 0RF diphenhydramine HCl [Banophen] 25 mg Tablet 25 mg PO DAILY PRN (Reason: DYSTONIA) Qty: 30 0RF Rx Instructions: MAY REPEAT IN 1/2 HOUR IF NEEDED pyridoxine (vitamin B6) 50 mg Tablet 25 mg PO DAILY Qty: 15 0RF polyethylene glycol 3350 [Gavilax] 17 gram/dose powder 17 g PO DAILY PRN (Reason: constipation) Qty: 110 0RF albuterol sulfate [ProAir HFA] 90 mcg/actuation HFA aerosol inhaler 2 puff inhalation QID PRN (Reason: shortness of breath or wheezing) Qty: 1 0RF hydroxyzine pamoate 25 mg capsule 1 cap PO TID PRN (Reason: ANXIETY/SLEEP) Qty: 90 0RF Rx Instructions: 4 HOURS BETWEEN DOSES cholecalciferol (vitamin D3) [Vitamin D3] 25 mcg (1,000 unit) capsule 1 cap PO DAILY Qty: 30 0RF calcium carbonate-vitamin D3 250 mg-3.125 mcg (125 unit) Tablet 250 mg PO DAILY Qty: 30 0RF melatonin 5 mg tablet 10 mg PO BEDTIME Qty: 60 0RF Latuda 80 mg Tablet 80 mg PO BEDTIME Qty: 30 0RF Rx Instructions: must administer with food (at least 350 calories) Discontinued chlorpromazine 10 mg Tablet 10 mg PO BID PRN (Reason: Psychosis) benztropine 1 mg tablet 1.5 tab PO BID sertraline 50 mg tablet 1 tab PO DAILY Discharge Orders: Discharge Order (Routine); Ordered 04/09/22 Ordered By: Zee Washington Diet: Advance to usual diet Activity on Discharge: As tolerated Stand Alone Forms: Patient Portal Discharge page, Community Support Care Plan Goals: Mood stabilization Sobriety Good Self care-nutrition, exercise, sleep, activity Health Concerns: Schizoaffective Disorder, depressed type Chronic constipation Plan of Treatment: Attend follow up appointments Take medications as directed Ensure three times a day with or between meals for nutritional supplementation Crisis Team if needed [phone] Call/Return as needed PRN Medications- Hydrocortisone Cream for dry skin on hands/fingers Albuterol Inhaler for wheezing, shortness of breath Banophen for EPS sx, anxiety Hydroxyzine for anxiety/insomnia Polacrilex for nicotine cravings Gavilax for constipation Assessment: non suicidal non psychotic Discharge Date/Time: 04/09/22 13:15
== END 2022-04-09 13:15 | disposition other institution (70) | DRG 885 ==
LOC: HO.ED 19:06 → HO.PM5 22:31
PROVIDERS: Nurse Practitioner Family; Registered Nurse; Admitting Provider Psychiatry & Neurology Psychiatry; Emergency Provider Emergency Medicine Emergency Medical Services; PCP Nurse Practitioner Pediatrics; Visit Provider Clinical Nurse Specialist Psychiatric/Mental Health, Adult
DX: F25.1 Schizoaffective disorder, depressive type (principal); F17.210 Nicotine dependence, cigarettes, uncomplicated; K59.09 Other constipation; F14.10 Cocaine abuse, uncomplicated; F12.10 Cannabis abuse, uncomplicated; Z20.822 Contact with and (suspected) exposure to COVID-19; Z71.6 Tobacco abuse counseling; Z88.8 Allergy status to other drugs, medicaments and biological substances; Z79.899 Other long term (current) drug therapy
CPT/HCPCS: 36415; 80048; 80053; 80061; 80076; 80143; 80179; 80307; 81025; 82077; 82607; 82746; 83036; 83735; 84439; 84443; 85025; 86780; 87389; 87491; 87591; 87635; 99285; Q0163

== ENCOUNTER 2022-04-22 12:10 | Inpatient (IN) | payer OTHER, SELFPAY ==
--- NOTE | 2022-04-22 | ECG_ITS ---
Test Reason : EVALUATE PROLONGED Q WAVES Blood Pressure : / mmHG Vent. Rate : 057 BPM Atrial Rate : 057 BPM P-R Int : 148 ms QRS Dur : 082 ms QT Int : 418 ms P-R-T Axes : 020 070 036 degrees QTc Int : 406 ms Sinus bradycardia with sinus arrhythmia Otherwise normal ECG When compared with ECG of 21-SEP-2021 17:26, Heart rate has decreased Referred By: Randy Salazar Electronically Signed By:NAZANIN REINOSO
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
[2022-04-22] MEDS: Nicotine Polacrilex 2 MG GUM BUCCAL ×4 (13:56→20:31)
[2022-04-22 14:10] VITALS: BP 118/74; PULSE 73; RESP 16; TEMP 36.9; O2SAT 98; BMI 25.4
[2022-04-22 14:52] VITALS: BP 118/80; PULSE 82; O2SAT 97
[2022-04-22 15:52] LABS: UPreg QC Valid YES; Urine Pregnancy NEGATIVE (NEGATIVE)
[2022-04-22 15:58] LABS: MANUAL DIFF FLAG NO
[2022-04-22 16:03] LABS: Basophils Percent Auto 0.5 % (0-2); Eosinophils Absolute Auto 0.1 X10*3/uL (0.0-0.4); Eosinophils Percent Auto 2.3 % (0-4); Hematocrit 36.9 % (37.0-47.0); Hemoglobin 12.7 g/dl (12.0-16.0); Imm Gran Abs Auto 0.01 X10*3/uL (0.00-0.03); Imm Gran Pct Auto 0.2 % (0.0-0.4); Lymphocytes Absolute Auto 1.7 X10*3/uL (1.2-4.9); Lymphocytes Percent Auto 28.5 % (20-40); Mean Corpuscular HGB Conc 34.4 g/dl (31.0-35.0); Mean Corpuscular Hemoglobin 31.5 pg (27.0-33.0); Mean Corpuscular Volume 91.6 fL (80.0-98.0); Mean Platelet Volume 10.6 fL (9.4-12.3); Monocytes Absolute Auto 0.3 X10*3/uL (0.1-1.2); Monocytes Percent Auto 5.3 % (2-11); Neutrophils Absolute Auto 3.8 x10*3/uL (2.0-8.3); Neutrophils Percent Auto 63.2 % (45-73); Platelet Count 222 X10*3/uL (160-400); Red Blood Count 4.03 X10*6/uL (4.20-5.50); Red Cell Distribution Width 12.1 % (11.0-16.0)
[2022-04-22 16:03] LABS: COVID-19 Test Negative (Negative); IDNOW Serial# 16C4AD1C
[2022-04-22 16:10] LABS: Amphetamine Screen Urine Not Detected (Not Detect); Barbiturates, Urine Not Detected (Not Detect); Benzodiazepines Screen Urine Not Detected (Not Detect); Cannabinoid Screen Urine Not Detected (Not Detect); Cocaine Screen Urine Not Detected (Not Detect); Fentanyl, urine Not Detected (Not Detect); Opiate Screen Urine Not Detected (Not Detect); Phencyclidine Screen Urine Not Detected (Not Detect)
[2022-04-22 16:21] LABS: Alanine Aminotransferase 17 U/L (0-31); Albumin Level 4.7 g/dL (3.5-5.0); Alkaline Phosphatase 42 U/L (39-117); Anion Gap 14 (12-20); Aspartate Amino Transferase 15 U/L (5-31); Bilirubin Direct 0.2 mg/dL (0.0-0.5); Bilirubin Total 0.5 mg/dL (0.0-1.0); Blood Urea Nitrogen 8 mg/dL (9-16); Calcium 9.7 mg/dL (8.4-10.2); Carbon Dioxide 28 mmol/L (22-29); Chloride 103 mmol/L (96-108); Creatinine Clr Calc Pharmacy 109.2; Estimated Glomerular Filt Rate > 60; Glucose Random 93 mg/dL (60-115); Potassium 4.4 mmol/L (3.3-5.1); Sodium 141 mmol/L (135-145); Total Protein 7.1 g/dL (6.5-8.0)
[2022-04-22 18:00] VITALS: BP 116/75; PULSE 74; TEMP 36.8; O2SAT 97
--- NOTE | 2022-04-22 19:57 | PC.ADMIT ---
pt is 21 year old female presenting to [facility] with symptoms of psychosis, AH, and responding to internal stimuli. pt has a negative tox screen. pt has come to in past, most recently in february 2022. pt reports no AH/VH during admission. pt is very pleasant , but starts laughing at random points during the admission. pt has past usage of cocaine. pt seems to be social on the unit.
[2022-04-22] MEDS: OLANZapine 2.5 MG TABLET PO (20:13)
[2022-04-22] MEDS: Lactase TABLET 1 TAB PO (20:13)
[2022-04-22] MEDS: Sennosides/Docusate Sodium TABLET 2 TAB PO (20:13)
[2022-04-22] MEDS: Lurasidone HCl 80 MG TABLET PO (20:13)
[2022-04-22] MEDS: Benztropine Mesylate 1 MG TABLET PO (20:14)
[2022-04-22] MEDS: Melatonin 3 MG TABLET 9 MG PO (20:14)
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
[2022-04-23 08:49] LABS: Estimated Average Glucose 85 mg/dL; Hemoglobin A1c % 4.6 %
[2022-04-23 09:17] LABS: Cholesterol 205 mg/dL; HDL Cholesterol 58 mg/dL; LDL Cholesterol Calculated 122 mg/dl; Magnesium 2.2 mg/dL (1.6-2.6); Triglycerides 125 mg/dL
[2022-04-23 09:31] LABS: Free T4 (Free Thyroxine) 0.82 ng/dL (0.71-1.85); Thyroid Stimulating Hormone 0.88 uIU/mL (0.32-4.0)
[2022-04-23 10:09] LABS: Folate 18.1 ng/mL (> or = 4.0); Vitamin B12 397 pg/mL (200-900)
[2022-04-23] MEDS: Cholecalciferol (Vitamin D3) 25 MCG TABLET PO (10:50)
[2022-04-23] MEDS: Lactase TABLET 1 TAB PO ×3 (10:50→16:35)
[2022-04-23] MEDS: Multivitamin TABLET 1 TAB PO (10:50)
[2022-04-23] MEDS: Sennosides 8.6 MG TABLET PO (10:50)
[2022-04-23] MEDS: Benztropine Mesylate 1 MG TABLET PO ×2 (10:51→21:32)
[2022-04-23] MEDS: Calcium + Vitamin D 250 MG TABLET PO (10:51)
[2022-04-23] MEDS: Pyridoxine HCl (Vitamin B6) 50 MG TABLET 25 MG PO (10:51)
[2022-04-23] MEDS: polyethylene glycoL 3350 17 GM POWD.PACK PO (10:53)
[2022-04-23] MEDS: Nicotine Polacrilex 2 MG GUM BUCCAL ×3 (13:40→18:56)
[2022-04-23 18:00] VITALS: BP 120/72; PULSE 76; RESP 18; TEMP 37.1; O2SAT 98
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
[2022-04-23] MEDS: Melatonin 3 MG TABLET 9 MG PO (21:31)
[2022-04-23] MEDS: OLANZapine 2.5 MG TABLET PO (21:31)
[2022-04-23] MEDS: Lurasidone HCl 80 MG TABLET PO (21:32)
[2022-04-23] MEDS: Sennosides/Docusate Sodium TABLET 2 TAB PO (21:32)
[2022-04-24] MEDS: Pyridoxine HCl (Vitamin B6) 50 MG TABLET 25 MG PO (08:58)
[2022-04-24] MEDS: Benztropine Mesylate 1 MG TABLET PO ×2 (08:58→20:19)
[2022-04-24] MEDS: Sennosides 8.6 MG TABLET PO (08:58)
[2022-04-24] MEDS: Lactase TABLET 1 TAB PO ×3 (08:58→16:13)
[2022-04-24] MEDS: Calcium + Vitamin D 250 MG TABLET PO (08:58)
[2022-04-24] MEDS: Multivitamin TABLET 1 TAB PO (08:58)
[2022-04-24] MEDS: polyethylene glycoL 3350 17 GM POWD.PACK PO (08:58)
[2022-04-24] MEDS: Cholecalciferol (Vitamin D3) 25 MCG TABLET PO (08:58)
[2022-04-24] MEDS: Nicotine Polacrilex 2 MG GUM BUCCAL ×5 (10:53→20:19)
--- NOTE | 2022-04-24 16:19 | HO.PSYCHPN ---
Subjective Subjective Date of Service: 04/24/22 Reason For Visit: Psychosis Subjective Notes: Conditional Voluntary Interim History: Asks to re-start an antidepressant. By hx Sertraline has helped. Pt is agreeable. Diflucan x 1 dose for yeast infection sx. Medication Compliance: Yes Side effects from medications: No Attending Groups: No Review of Systems Acute medical concerns: No Medical Review of Systems: unchanged Mental Status Exam Mental Status Exam Patient Appearance: Appropriate Patient Orientation: Person, Place, Time and Situation Level of Consciousness: Alert Patient Behavior: Talkative and Good Eye Contact Mood Description: Anxious and Apprehensive Affect Description: Anxious and Apprehensive Patient Cognition Impaired: No Ability to Follow Directions: Good Speech Pattern: Spontaneous Speech Memory Description: Episodic Impaired Hallucinations: None and Auditory (per residence) Perceptual Disturbances: Depersonalization and Derealization Thought Process: Rumination Thought Content: positive for Circumstantial Depressive Symptoms: Increased Anxiety, Increased Irritability, Changes in Appetite and Difficulty Concentrating Abnormal Motor Activity Signs and Symptoms: Restlessness Judgement: Poor Diagnostics Vital Signs (24Hr): Vital Signs - 24 hr 04/23/22 18:00 Temperature 98.7 F Pulse Rate 76 Respiratory Rate 18 Blood Pressure 120/72 Pulse Oximetry 98 Oxygen Delivery Method Room Air BMI result Body Mass Index 25.4 Labs Results: 04/22/22 15:53 04/22/22 15:53 Labs: Laboratory Results - last 48 hr 04/22/22 04/23/22 04/23/22 15:53 08:23 08:23 Sodium 141 Potassium 4.4 Chloride 103 Carbon Dioxide 28 Anion Gap 14 BUN 8 L Creatinine 0.74 Estim Creat Clear Calc 109.2 Estimated GFR > 60 Random Glucose 93 Estimat Average Glucose 85 Hemoglobin A1c % 4.6 Calcium 9.7 Magnesium 2.2 Total Bilirubin 0.5 Direct Bilirubin 0.2 AST 15 ALT 17 Alkaline Phosphatase 42 Total Protein 7.1 Albumin 4.7 Triglycerides 125 Cholesterol 205 D LDL Cholesterol, Calc 122 HDL Cholesterol 58 Vitamin B12 Folate TSH 0.88 Free T4 0.82 04/23/22 08:23 Sodium Potassium Chloride Carbon Dioxide Anion Gap BUN Creatinine Estim Creat Clear Calc Estimated GFR Random Glucose Estimat Average Glucose Hemoglobin A1c % Calcium Magnesium Total Bilirubin Direct Bilirubin AST ALT Alkaline Phosphatase Total Protein Albumin Triglycerides Cholesterol LDL Cholesterol, Calc HDL Cholesterol Vitamin B12 397 Folate 18.1 TSH Free T4 Medications Medications Current Medications Acetaminophen (Acetaminophen 325 Mg Tablet) 650 mg PO Q6H PRN PRN Reason: Headache/Pain Mild Scale (1-3) Al Hydroxide/Mg Hydroxide (Magnesium Hydrox/Alum Hydrox 30 Ml Oral.Susp) 30 ml PO Q6H PRN PRN Reason: Heartburn/Nausea Albuterol Sulfate (Albuterol Sulfate 90 Mcg 8 Gm Inhaler) 2 puff INHALE QID PRN PRN Reason: shortness of breath or wheezing Benztropine Mesylate (Benztropine Mesylate 1 Mg Tablet) 1 mg PO BID [facility] Last Admin: 04/24/22 08:58 Dose: 1 mg Calcium Carbonate/Cholecalciferol (Calcium + Vitamin D 250 Mg Tablet) 250 mg PO DAILY [facility] Last Admin: 04/24/22 08:58 Dose: 250 mg Diphenhydramine HCl (Diphenhydramine Hcl 25 Mg Tablet) 25 mg PO DAILY PRN PRN Reason: DYSTONIA Hydrocortisone (Hydrocortisone 1 % Cream 28.35 Gm Tube) 1 appl TOPICAL BID PRN PRN Reason: skin breakdown between fingers Hydroxyzine HCl (Hydroxyzine Hcl 25 Mg Tablet) 25 mg PO Q6H PRN PRN Reason: Anxiety Hydroxyzine HCl (Hydroxyzine Hcl 25 Mg Tablet) 25 mg PO TID PRN PRN Reason: ANXIETY/SLEEP Lactase (Lactase Tablet) 1 tab PO TIDWM [facility] Last Admin: 04/24/22 16:13 Dose: 1 tab Lurasidone HCl (Lurasidone Hcl 80 Mg Tablet) 80 mg PO BEDTIME [facility] Last Admin: 04/23/22 21:32 Dose: 80 mg Magnesium Hydroxide (Milk Of Magnesia 30 Ml Oral.Susp) 30 ml PO DAILY PRN PRN Reason: Constipation Melatonin (Melatonin 3 Mg Tablet) 9 mg PO BEDTIME [facility] Last Admin: 04/23/22 21:31 Dose: 9 mg Multivitamins/Vitamin C (Multivitamin Tablet) 1 tab PO DAILY [facility] Last Admin: 04/24/22 08:58 Dose: 1 tab Nicotine Polacrilex (Nicotine Polacrilex 2 Mg Gum) 2 mg BUCCAL Q2H PRN PRN Reason: Nicotine Cravings Last Admin: 04/24/22 16:13 Dose: 2 mg Olanzapine (Olanzapine 2.5 Mg Tablet) 2.5 mg PO BEDTIME [facility] Last Admin: 04/23/22 21:31 Dose: 2.5 mg Polyethylene Glycol (Polyethylene Glycol 3350 17 Gm Powd.Pack) 17 gm PO DAILY PRN PRN Reason: constipation Polyethylene Glycol (Polyethylene Glycol 3350 17 Gm Powd.Pack) 17 gm PO DAILY [facility] Last Admin: 04/24/22 08:58 Dose: 17 gm Pyridoxine HCl (Pyridoxine Hcl (Vitamin B6) 50 Mg Tablet) 25 mg PO DAILY [facility] Last Admin: 04/24/22 08:58 Dose: 25 mg Senna (Sennosides 8.6 Mg Tablet) 8.6 mg PO BID [facility] Last Admin: 04/24/22 08:58 Dose: 8.6 mg Senna/Docusate Sodium (Sennosides/Docusate Sodium Tablet) 2 tab PO BEDTIME [facility] Last Admin: 04/23/22 21:32 Dose: 2 tab Sertraline HCl (Sertraline Hcl 25 Mg Tablet) 25 mg PO DAILY [facility] Vitamin D (Cholecalciferol (Vitamin D3) 25 Mcg Tablet) 25 mcg PO DAILY [facility] Last Admin: 04/24/22 08:58 Dose: 25 mcg Allergies Allergies Allergy/AdvReac Type Severity Reaction Status Date / Time aripiprazole [Abilify] Allergy Unknown tongue Verified 03/04/22 10:00 swells and gain weight risperidone [From Risperdal] AdvReac Unknown gain Verified 03/04/22 10:00 weight, and slurred speech cariprazine [From Vraylar] AdvReac Verified 12/19/21 14:42 haloperidol [From Haldol] AdvReac DYSTONIA Verified 02/21/22 18:22 paliperidone AdvReac dystonia Verified 12/19/21 14:42 trazodone AdvReac DYSTONIA Verified 02/21/22 18:23 Assessment & Plan Assessment & Plan (1) Schizoaffective disorder, bipolar type: Status: Acute Code(s): F25.0 - Schizoaffective disorder, bipolar type Plan Liane is a 21 yo female who carries a dx of schizoaffective disorder, bipolar disorder. She presented to [facility] on 04/22/2022 due to SI, depression.?Per [facility] staff, pt has been med non-adherent, eloping from [facility] and drinking, responding to internal stimuli, and screaming. Pt denies this, but does say she feels depressed. Hx of multiple psych admissions. Recently discharged from on 04/09/2022, put on latuda, olanzapine with good effect. Pt does not want med changes. Plan: Continue med regimen from most recent inpatient stay, gather collateral info from [facility] staff, family. continue assessment and engagement. Q15 min safety checks, CV Monitor response to medications. Monitor for safety in the milieu. Discharge on stabilization. Patient seen. Chart reviewed. Discussed with team. Obtain collateral contact info?as needed 04/24/22 Sertraline 25 mg daily I spent minutes with the patient and/or on the patient floor today, greater than?50% of which was spent counseling/coordinating care. Patient educated on: medication risk/benefits and therapeutic strategies Informed Consent: understands and further education needed Reason for contiued inpatient stay Substantial Risk for: harm to self, inability to function and rapid decompensation
[2022-04-24 18:53] VITALS: BP 105/74; PULSE 83; TEMP 36.6; O2SAT 97
[2022-04-24] MEDS: Fluconazole 150 MG TABLET PO (20:18)
[2022-04-24] MEDS: Sennosides/Docusate Sodium TABLET 2 TAB PO (20:19)
[2022-04-24] MEDS: Melatonin 3 MG TABLET 9 MG PO (20:19)
[2022-04-24] MEDS: OLANZapine 2.5 MG TABLET PO (20:19)
[2022-04-24] MEDS: Lurasidone HCl 80 MG TABLET PO (20:19)
[2022-04-25 08:55] VITALS: BP 103/60; PULSE 68; RESP 16; TEMP 36.4; O2SAT 99
[2022-04-25] MEDS: Lactase TABLET 1 TAB PO ×3 (09:07→15:53)
[2022-04-25] MEDS: Multivitamin TABLET 1 TAB PO (09:08)
[2022-04-25] MEDS: Benztropine Mesylate 1 MG TABLET PO ×2 (09:08→20:42)
[2022-04-25] MEDS: Calcium + Vitamin D 250 MG TABLET PO (09:08)
[2022-04-25] MEDS: Cholecalciferol (Vitamin D3) 25 MCG TABLET PO (09:08)
[2022-04-25] MEDS: Sennosides 8.6 MG TABLET PO (09:09)
[2022-04-25] MEDS: Pyridoxine HCl (Vitamin B6) 50 MG TABLET 25 MG PO (09:09)
[2022-04-25] MEDS: Sertraline HCL 25 MG TABLET PO (09:09)
[2022-04-25] MEDS: polyethylene glycoL 3350 17 GM POWD.PACK PO (09:10)
[2022-04-25] MEDS: Nicotine Polacrilex 2 MG GUM BUCCAL ×5 (11:48→20:14)
--- NOTE | 2022-04-25 13:57 | HO.PSYCHPN ---
Subjective Subjective Date of Service: 04/25/22 Reason For Visit: Psychosis Subjective Notes: Conditional Voluntary Interim History: Met with pt and mother. Discussed pt's residence wanting a full medication change. Discussed hx of efficacy with Latuda Will plan to increase Latuda dose and maximize before there is another agent change. Pt and mother (guardian ) agree. Medication Compliance: Yes Side effects from medications: No Attending Groups: No Review of Systems Acute medical concerns: No Medical Review of Systems: unchanged Mental Status Exam Mental Status Exam Patient Appearance: Appropriate Patient Orientation: Person, Place, Time and Situation Level of Consciousness: Alert Patient Behavior: Talkative and Good Eye Contact Mood Description: Anxious and Apprehensive Affect Description: Anxious and Apprehensive Patient Cognition Impaired: No Ability to Follow Directions: Good Speech Pattern: Spontaneous Speech Memory Description: Episodic Impaired Hallucinations: None and Auditory (per residence) Perceptual Disturbances: Depersonalization and Derealization Thought Process: Rumination Thought Content: positive for Circumstantial Depressive Symptoms: Increased Anxiety, Increased Irritability, Changes in Appetite and Difficulty Concentrating Abnormal Motor Activity Signs and Symptoms: Restlessness Judgement: Poor Diagnostics Vital Signs (24Hr): Vital Signs - 24 hr 04/24/22 18:53 04/25/22 08:55 Temperature 97.9 F 97.5 F Pulse Rate 83 68 Respiratory Rate 16 Blood Pressure 105/74 103/60 Pulse Oximetry 97 99 Oxygen Delivery Method Room Air Room Air BMI result Body Mass Index 25.4 Labs Results: 04/22/22 15:53 04/22/22 15:53 Medications Medications Current Medications Acetaminophen (Acetaminophen 325 Mg Tablet) 650 mg PO Q6H PRN PRN Reason: Headache/Pain Mild Scale (1-3) Al Hydroxide/Mg Hydroxide (Magnesium Hydrox/Alum Hydrox 30 Ml Oral.Susp) 30 ml PO Q6H PRN PRN Reason: Heartburn/Nausea Albuterol Sulfate (Albuterol Sulfate 90 Mcg 8 Gm Inhaler) 2 puff INHALE QID PRN PRN Reason: shortness of breath or wheezing Benztropine Mesylate (Benztropine Mesylate 1 Mg Tablet) 1 mg PO BID [facility] Last Admin: 04/25/22 09:08 Dose: 1 mg Calcium Carbonate/Cholecalciferol (Calcium + Vitamin D 250 Mg Tablet) 250 mg PO DAILY [facility] Last Admin: 04/25/22 09:08 Dose: 250 mg Diphenhydramine HCl (Diphenhydramine Hcl 25 Mg Tablet) 25 mg PO DAILY PRN PRN Reason: DYSTONIA Hydrocortisone (Hydrocortisone 1 % Cream 28.35 Gm Tube) 1 appl TOPICAL BID PRN PRN Reason: skin breakdown between fingers Hydroxyzine HCl (Hydroxyzine Hcl 25 Mg Tablet) 25 mg PO Q6H PRN PRN Reason: Anxiety Hydroxyzine HCl (Hydroxyzine Hcl 25 Mg Tablet) 25 mg PO TID PRN PRN Reason: ANXIETY/SLEEP Lactase (Lactase Tablet) 1 tab PO TIDWM [facility] Last Admin: 04/25/22 13:11 Dose: 1 tab Lurasidone HCl (Lurasidone Hcl 80 Mg Tablet) 80 mg PO BEDTIME [facility] Last Admin: 04/24/22 20:19 Dose: 80 mg Magnesium Hydroxide (Milk Of Magnesia 30 Ml Oral.Susp) 30 ml PO DAILY PRN PRN Reason: Constipation Melatonin (Melatonin 3 Mg Tablet) 9 mg PO BEDTIME [facility] Last Admin: 04/24/22 20:19 Dose: 9 mg Multivitamins/Vitamin C (Multivitamin Tablet) 1 tab PO DAILY [facility] Last Admin: 04/25/22 09:08 Dose: 1 tab Nicotine Polacrilex (Nicotine Polacrilex 2 Mg Gum) 2 mg BUCCAL Q2H PRN PRN Reason: Nicotine Cravings Last Admin: 04/25/22 13:45 Dose: 2 mg Olanzapine (Olanzapine 2.5 Mg Tablet) 2.5 mg PO BEDTIME [facility] Last Admin: 04/24/22 20:19 Dose: 2.5 mg Polyethylene Glycol (Polyethylene Glycol 3350 17 Gm Powd.Pack) 17 gm PO DAILY PRN PRN Reason: constipation Polyethylene Glycol (Polyethylene Glycol 3350 17 Gm Powd.Pack) 17 gm PO DAILY [facility] Last Admin: 04/25/22 09:10 Dose: 17 gm Pyridoxine HCl (Pyridoxine Hcl (Vitamin B6) 50 Mg Tablet) 25 mg PO DAILY [facility] Last Admin: 04/25/22 09:09 Dose: 25 mg Senna (Sennosides 8.6 Mg Tablet) 8.6 mg PO BID [facility] Last Admin: 04/25/22 09:09 Dose: 8.6 mg Senna/Docusate Sodium (Sennosides/Docusate Sodium Tablet) 2 tab PO BEDTIME [facility] Last Admin: 04/24/22 20:19 Dose: 2 tab Sertraline HCl (Sertraline Hcl 25 Mg Tablet) 25 mg PO DAILY [facility] Last Admin: 04/25/22 09:09 Dose: 25 mg Vitamin D (Cholecalciferol (Vitamin D3) 25 Mcg Tablet) 25 mcg PO DAILY [facility] Last Admin: 04/25/22 09:08 Dose: 25 mcg Allergies Allergies Allergy/AdvReac Type Severity Reaction Status Date / Time aripiprazole [Abilify] Allergy Unknown tongue Verified 03/04/22 10:00 swells and gain weight risperidone [From Risperdal] AdvReac Unknown gain Verified 03/04/22 10:00 weight, and slurred speech cariprazine [From Vraylar] AdvReac Verified 12/19/21 14:42 haloperidol [From Haldol] AdvReac DYSTONIA Verified 02/21/22 18:22 paliperidone AdvReac dystonia Verified 12/19/21 14:42 trazodone AdvReac DYSTONIA Verified 02/21/22 18:23 Assessment & Plan Assessment & Plan (1) Schizoaffective disorder, depressive type: Status: Acute Code(s): F25.1 - Schizoaffective disorder, depressive type Plan 21 yo female, hx of schizoaffective disorder, substance use. senior living reports an increase in psychotic sx. Pt has explanation for each symptom half-way identifies. Pt reports she is not suicidal, is not hearing voices, but is grieving loss of a boyfriend whom she learned was dating one of her former acquaintances. Mom reports pt is eating and taking medications. Plan: Collateral contact to validate sx Family meeting to discuss medication changes (mom is guardian) Full milieu integration and encouragement. 04/25/22- Increase Latuda to 100 mg daily I spent minutes with the patient and/or on the patient floor today, greater than?50% of which was spent counseling/coordinating care. Patient educated on: medication risk/benefits Guardian/Caregiver educated on: medication risk/benefits Informed Consent: understands Reason for contiued inpatient stay Substantial Risk for: harm to self, inability to function and rapid decompensation
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
[2022-04-25 16:41] VITALS: BP 120/68; PULSE 70; RESP 16; TEMP 37; O2SAT 98
[2022-04-25] MEDS: Lurasidone HCl 20 MG TABLET 100 MG PO (20:42)
[2022-04-25] MEDS: OLANZapine 2.5 MG TABLET PO (20:43)
[2022-04-25] MEDS: Sennosides/Docusate Sodium TABLET 2 TAB PO (20:43)
[2022-04-25] MEDS: Melatonin 3 MG TABLET 9 MG PO (20:43)
[2022-04-26] MEDS: Pyridoxine HCl (Vitamin B6) 50 MG TABLET 25 MG PO (09:25)
[2022-04-26] MEDS: Cholecalciferol (Vitamin D3) 25 MCG TABLET PO (09:26)
[2022-04-26] MEDS: Benztropine Mesylate 1 MG TABLET PO ×2 (09:26→20:55)
[2022-04-26] MEDS: Lactase TABLET 1 TAB PO ×3 (09:26→16:08)
[2022-04-26] MEDS: Multivitamin TABLET 1 TAB PO (09:26)
[2022-04-26] MEDS: polyethylene glycoL 3350 17 GM POWD.PACK PO (09:26)
[2022-04-26] MEDS: Calcium + Vitamin D 250 MG TABLET PO (09:26)
[2022-04-26] MEDS: Sennosides 8.6 MG TABLET PO (09:26)
[2022-04-26] MEDS: Sertraline HCL 25 MG TABLET PO (09:26)
[2022-04-26 10:16] VITALS: BP 107/76; PULSE 96; TEMP 36.1; O2SAT 98
[2022-04-26] MEDS: Nicotine Polacrilex 2 MG GUM BUCCAL ×5 (11:58→20:55)
[2022-04-26 16:19] VITALS: BP 108/67; PULSE 72; TEMP 36.8; O2SAT 97
--- NOTE | 2022-04-26 20:50 | HO.PSYCHPN ---
Subjective Subjective Date of Service: 04/26/22 Reason For Visit: Psychosis Interim History: calm, cooperative. asking for head CT due to recent VAQZUEZ and concerned they may be due to tumor. she reports h/o head CT. informs pt he will review head CT Hx here. otherwise states she has schizophrenia and is taking zoloft and latuda. she had been hearing AH but reports she no longer does. per staff, slept well last night, took meds this morning. no notable behaviors. Mental Status Exam Mental Status Exam Narrative: appropriately dressed and groomed. no PMA/PMR, cooperative. speech nml rate, amount, loudness, tone, latency. thoughts linear and questionably logical. affect constricted, hypo-intense, non-labile. mood not assessed. denies AH. no SI/HI/VH expressed. Diagnostics Vital Signs (24Hr): Vital Signs - 24 hr 04/26/22 10:16 04/26/22 16:19 Temperature 96.9 F 98.3 F Pulse Rate 96 72 Blood Pressure 107/76 108/67 Pulse Oximetry 98 97 Oxygen Delivery Method Room Air BMI result Body Mass Index 25.4 Labs Results: 04/22/22 15:53 04/22/22 15:53 Medications Medications Current Medications Acetaminophen (Acetaminophen 325 Mg Tablet) 650 mg PO Q6H PRN PRN Reason: Headache/Pain Mild Scale (1-3) Al Hydroxide/Mg Hydroxide (Magnesium Hydrox/Alum Hydrox 30 Ml Oral.Susp) 30 ml PO Q6H PRN PRN Reason: Heartburn/Nausea Albuterol Sulfate (Albuterol Sulfate 90 Mcg 8 Gm Inhaler) 2 puff INHALE QID PRN PRN Reason: shortness of breath or wheezing Benztropine Mesylate (Benztropine Mesylate 1 Mg Tablet) 1 mg PO BID [facility] Last Admin: 04/26/22 09:26 Dose: 1 mg Calcium Carbonate/Cholecalciferol (Calcium + Vitamin D 250 Mg Tablet) 250 mg PO DAILY [facility] Last Admin: 04/26/22 09:26 Dose: 250 mg Diphenhydramine HCl (Diphenhydramine Hcl 25 Mg Tablet) 25 mg PO DAILY PRN PRN Reason: DYSTONIA Hydrocortisone (Hydrocortisone 1 % Cream 28.35 Gm Tube) 1 appl TOPICAL BID PRN PRN Reason: skin breakdown between fingers Hydroxyzine HCl (Hydroxyzine Hcl 25 Mg Tablet) 25 mg PO Q6H PRN PRN Reason: Anxiety Hydroxyzine HCl (Hydroxyzine Hcl 25 Mg Tablet) 25 mg PO TID PRN PRN Reason: ANXIETY/SLEEP Lactase (Lactase Tablet) 1 tab PO TIDWM [facility] Last Admin: 04/26/22 16:08 Dose: 1 tab Lurasidone HCl (Lurasidone Hcl 20 Mg Tablet) 100 mg PO BEDTIME [facility] Last Admin: 04/25/22 20:42 Dose: 100 mg Magnesium Hydroxide (Milk Of Magnesia 30 Ml Oral.Susp) 30 ml PO DAILY PRN PRN Reason: Constipation Melatonin (Melatonin 3 Mg Tablet) 9 mg PO BEDTIME [facility] Last Admin: 04/25/22 20:43 Dose: 9 mg Multivitamins/Vitamin C (Multivitamin Tablet) 1 tab PO DAILY [facility] Last Admin: 04/26/22 09:26 Dose: 1 tab Nicotine Polacrilex (Nicotine Polacrilex 2 Mg Gum) 2 mg BUCCAL Q2H PRN PRN Reason: Nicotine Cravings Last Admin: 04/26/22 19:49 Dose: 2 mg Olanzapine (Olanzapine 2.5 Mg Tablet) 2.5 mg PO BEDTIME [facility] Last Admin: 04/25/22 20:43 Dose: 2.5 mg Polyethylene Glycol (Polyethylene Glycol 3350 17 Gm Powd.Pack) 17 gm PO DAILY PRN PRN Reason: constipation Polyethylene Glycol (Polyethylene Glycol 3350 17 Gm Powd.Pack) 17 gm PO DAILY [facility] Last Admin: 04/26/22 09:26 Dose: 17 gm Pyridoxine HCl (Pyridoxine Hcl (Vitamin B6) 50 Mg Tablet) 25 mg PO DAILY [facility] Last Admin: 04/26/22 09:25 Dose: 25 mg Senna (Sennosides 8.6 Mg Tablet) 8.6 mg PO BID [facility] Last Admin: 04/26/22 09:26 Dose: 8.6 mg Senna/Docusate Sodium (Sennosides/Docusate Sodium Tablet) 2 tab PO BEDTIME [facility] Last Admin: 04/25/22 20:43 Dose: 2 tab Sertraline HCl (Sertraline Hcl 25 Mg Tablet) 25 mg PO DAILY [facility] Last Admin: 04/26/22 09:26 Dose: 25 mg Vitamin D (Cholecalciferol (Vitamin D3) 25 Mcg Tablet) 25 mcg PO DAILY [facility] Last Admin: 04/26/22 09:26 Dose: 25 mcg Allergies Allergies Allergy/AdvReac Type Severity Reaction Status Date / Time aripiprazole [Abilify] Allergy Unknown tongue Verified 03/04/22 10:00 swells and gain weight risperidone [From Risperdal] AdvReac Unknown gain Verified 03/04/22 10:00 weight, and slurred speech cariprazine [From Vraylar] AdvReac Verified 12/19/21 14:42 haloperidol [From Haldol] AdvReac DYSTONIA Verified 02/21/22 18:22 paliperidone AdvReac dystonia Verified 12/19/21 14:42 trazodone AdvReac DYSTONIA Verified 02/21/22 18:23 Assessment & Plan Assessment & Plan (1) Schizoaffective disorder, depressive type: Status: Acute Code(s): F25.1 - Schizoaffective disorder, depressive type Plan 21 yo female, hx of schizoaffective disorder, substance use. [facility] reports an increase in psychotic sx. Pt has explanation for each symptom correction identifies. Pt reports she is not suicidal, is not hearing voices, but is grieving loss of a boyfriend whom she learned was dating one of her former acquaintances. Mom reports pt is eating and taking medications. Plan: Collateral contact to validate sx Family meeting to discuss medication changes (mom is guardian) Full milieu integration and encouragement. 04/25/22- Increase Latuda to 100 mg daily 04/26: denying Sx. continue current mgmt. I spent ___20___ minutes with the patient and/or on the patient floor today, greater than?50% of which was spent counseling/coordinating care. Reason for contiued inpatient stay Substantial Risk for: inability to function and rapid decompensation
[2022-04-26] MEDS: Melatonin 3 MG TABLET 9 MG PO (20:54)
[2022-04-26] MEDS: Lurasidone HCl 20 MG TABLET 100 MG PO (20:55)
[2022-04-26] MEDS: OLANZapine 2.5 MG TABLET PO (20:55)
[2022-04-26] MEDS: Sennosides/Docusate Sodium TABLET 2 TAB PO (20:55)
[2022-04-27] MEDS: Benztropine Mesylate 1 MG TABLET PO ×2 (09:16→21:00)
[2022-04-27] MEDS: Calcium + Vitamin D 250 MG TABLET PO (10:03)
[2022-04-27] MEDS: Pyridoxine HCl (Vitamin B6) 50 MG TABLET 25 MG PO (10:03)
[2022-04-27] MEDS: Lactase TABLET 1 TAB PO ×3 (10:03→16:19)
[2022-04-27] MEDS: polyethylene glycoL 3350 17 GM POWD.PACK PO (10:05)
[2022-04-27] MEDS: Sertraline HCL 25 MG TABLET PO (10:05)
[2022-04-27] MEDS: Multivitamin TABLET 1 TAB PO (10:05)
[2022-04-27] MEDS: Cholecalciferol (Vitamin D3) 25 MCG TABLET PO (10:05)
[2022-04-27] MEDS: Sennosides 8.6 MG TABLET PO (10:05)
[2022-04-27 12:42] VITALS: BP 102/66; PULSE 79; RESP 16; TEMP 37.2
[2022-04-27] MEDS: Nicotine Polacrilex 2 MG GUM BUCCAL ×6 (12:52→21:05)
[2022-04-27 16:42] VITALS: BP 110/70; PULSE 109; TEMP 37.1; O2SAT 98
--- NOTE | 2022-04-27 16:54 | HO.PSYCHPN ---
Subjective Subjective Date of Service: 04/27/22 Reason For Visit: Psychosis Interim History: says she is eating fine. no complaints or requests otherwise. per staff, compliant with Tx. being targeted by male peer for lloyd. isolative. not eating much. sleeping well. Mental Status Exam Mental Status Exam Narrative: appropriately dressed and groomed. no PMA/PMR, cooperative. speech nml rate, amount, loudness, tone, latency. thoughts linear and questionably logical. affect constricted, hypo-intense, non-labile. mood not assessed. denies AH. no SI/HI/VH expressed. Diagnostics Vital Signs (24Hr): Vital Signs - 24 hr 04/27/22 12:42 04/27/22 16:42 Temperature 98.9 F 98.8 F Pulse Rate 79 109 H Respiratory Rate 16 Blood Pressure 102/66 110/70 Pulse Oximetry 98 Oxygen Delivery Method Room Air BMI result Body Mass Index 25.4 Labs Results: 04/22/22 15:53 04/22/22 15:53 Medications Medications Current Medications Acetaminophen (Acetaminophen 325 Mg Tablet) 650 mg PO Q6H PRN PRN Reason: Headache/Pain Mild Scale (1-3) Al Hydroxide/Mg Hydroxide (Magnesium Hydrox/Alum Hydrox 30 Ml Oral.Susp) 30 ml PO Q6H PRN PRN Reason: Heartburn/Nausea Albuterol Sulfate (Albuterol Sulfate 90 Mcg 8 Gm Inhaler) 2 puff INHALE QID PRN PRN Reason: shortness of breath or wheezing Benztropine Mesylate (Benztropine Mesylate 1 Mg Tablet) 1 mg PO BID [facility] Last Admin: 04/27/22 09:16 Dose: 1 mg Calcium Carbonate/Cholecalciferol (Calcium + Vitamin D 250 Mg Tablet) 250 mg PO DAILY [facility] Last Admin: 04/27/22 10:03 Dose: 250 mg Diphenhydramine HCl (Diphenhydramine Hcl 25 Mg Tablet) 25 mg PO DAILY PRN PRN Reason: DYSTONIA Hydrocortisone (Hydrocortisone 1 % Cream 28.35 Gm Tube) 1 appl TOPICAL BID PRN PRN Reason: skin breakdown between fingers Hydroxyzine HCl (Hydroxyzine Hcl 25 Mg Tablet) 25 mg PO Q6H PRN PRN Reason: Anxiety Hydroxyzine HCl (Hydroxyzine Hcl 25 Mg Tablet) 25 mg PO TID PRN PRN Reason: ANXIETY/SLEEP Lactase (Lactase Tablet) 1 tab PO TIDWM [facility] Last Admin: 04/27/22 16:19 Dose: 1 tab Lurasidone HCl (Lurasidone Hcl 20 Mg Tablet) 100 mg PO BEDTIME [facility] Last Admin: 04/26/22 20:55 Dose: 100 mg Magnesium Hydroxide (Milk Of Magnesia 30 Ml Oral.Susp) 30 ml PO DAILY PRN PRN Reason: Constipation Melatonin (Melatonin 3 Mg Tablet) 9 mg PO BEDTIME [facility] Last Admin: 04/26/22 20:54 Dose: 9 mg Multivitamins/Vitamin C (Multivitamin Tablet) 1 tab PO DAILY [facility] Last Admin: 04/27/22 10:05 Dose: 1 tab Nicotine Polacrilex (Nicotine Polacrilex 2 Mg Gum) 2 mg BUCCAL Q2H PRN PRN Reason: Nicotine Cravings Last Admin: 04/27/22 16:19 Dose: 2 mg Olanzapine (Olanzapine 2.5 Mg Tablet) 2.5 mg PO BEDTIME [facility] Last Admin: 04/26/22 20:55 Dose: 2.5 mg Polyethylene Glycol (Polyethylene Glycol 3350 17 Gm Powd.Pack) 17 gm PO DAILY PRN PRN Reason: constipation Polyethylene Glycol (Polyethylene Glycol 3350 17 Gm Powd.Pack) 17 gm PO DAILY [facility] Last Admin: 04/27/22 10:05 Dose: 17 gm Pyridoxine HCl (Pyridoxine Hcl (Vitamin B6) 50 Mg Tablet) 25 mg PO DAILY [facility] Last Admin: 04/27/22 10:03 Dose: 25 mg Senna (Sennosides 8.6 Mg Tablet) 8.6 mg PO BID [facility] Last Admin: 04/27/22 10:05 Dose: 8.6 mg Senna/Docusate Sodium (Sennosides/Docusate Sodium Tablet) 2 tab PO BEDTIME [facility] Last Admin: 04/26/22 20:55 Dose: 2 tab Sertraline HCl (Sertraline Hcl 25 Mg Tablet) 25 mg PO DAILY [facility] Last Admin: 04/27/22 10:05 Dose: 25 mg Vitamin D (Cholecalciferol (Vitamin D3) 25 Mcg Tablet) 25 mcg PO DAILY [facility] Last Admin: 04/27/22 10:05 Dose: 25 mcg Allergies Allergies Allergy/AdvReac Type Severity Reaction Status Date / Time aripiprazole [Abilify] Allergy Unknown tongue Verified 03/04/22 10:00 swells and gain weight risperidone [From Risperdal] AdvReac Unknown gain Verified 03/04/22 10:00 weight, and slurred speech cariprazine [From Vraylar] AdvReac Verified 12/19/21 14:42 haloperidol [From Haldol] AdvReac DYSTONIA Verified 02/21/22 18:22 paliperidone AdvReac dystonia Verified 12/19/21 14:42 trazodone AdvReac DYSTONIA Verified 02/21/22 18:23 Assessment & Plan Assessment & Plan (1) Schizoaffective disorder, depressive type: Status: Acute Code(s): F25.1 - Schizoaffective disorder, depressive type Plan 21 yo female, hx of schizoaffective disorder, substance use. [facility] reports an increase in psychotic sx. Pt has explanation for each symptom usp identifies. Pt reports she is not suicidal, is not hearing voices, but is grieving loss of a boyfriend whom she learned was dating one of her former acquaintances. Mom reports pt is eating and taking medications. Plan: Collateral contact to validate sx Family meeting to discuss medication changes (mom is guardian) Full milieu integration and encouragement. 04/25/22- Increase Latuda to 100 mg daily 04/26: denying Sx. continue current mgmt. 04/27: continue current mgmt. I spent ___15___ minutes with the patient and/or on the patient floor today, greater than?50% of which was spent counseling/coordinating care. Reason for contiued inpatient stay Substantial Risk for: inability to function and rapid decompensation
[2022-04-27] MEDS: Lurasidone HCl 20 MG TABLET 100 MG PO (20:59)
[2022-04-27] MEDS: Melatonin 3 MG TABLET 9 MG PO (21:00)
[2022-04-27] MEDS: OLANZapine 2.5 MG TABLET PO (21:00)
[2022-04-27] MEDS: Sennosides/Docusate Sodium TABLET 2 TAB PO (21:00)
[2022-04-28] MEDS: Sennosides 8.6 MG TABLET PO (10:01)
[2022-04-28] MEDS: polyethylene glycoL 3350 17 GM POWD.PACK PO (10:01)
[2022-04-28] MEDS: Pyridoxine HCl (Vitamin B6) 50 MG TABLET 25 MG PO (10:01)
[2022-04-28] MEDS: Benztropine Mesylate 1 MG TABLET PO ×2 (10:01→21:22)
[2022-04-28] MEDS: Lactase TABLET 1 TAB PO ×3 (10:01→15:50)
[2022-04-28] MEDS: Cholecalciferol (Vitamin D3) 25 MCG TABLET PO (10:01)
[2022-04-28] MEDS: Multivitamin TABLET 1 TAB PO (10:01)
[2022-04-28] MEDS: Sertraline HCL 25 MG TABLET PO (10:02)
[2022-04-28] MEDS: Calcium + Vitamin D 250 MG TABLET PO (10:02)
[2022-04-28] MEDS: Nicotine Polacrilex 2 MG GUM BUCCAL ×7 (10:39→22:36)
--- NOTE | 2022-04-28 14:15 | P.PNPSI_ITS ---
Subjective Subjective Date of Service: 04/28/22 Reason For Visit: Psychosis Interim History: found resting in bed. calm, cooperative. no change in presentation. nor requests or complaints. per staff, sleeping well. isolative. denies SI/HI. taking meds. c/o mild anxiety and depression. Mental Status Exam Mental Status Exam Narrative: appropriately dressed and groomed. no PMA/PMR, cooperative. speech nml rate, amount, loudness, tone, latency. thoughts linear and logical. affect constricted, hypo-intense, non-labile. mood not assessed. no SI/HI/AVH expressed. Diagnostics Vital Signs (24Hr): Vital Signs - 24 hr 04/27/22 16:42 Temperature 98.8 F Pulse Rate 109 H Blood Pressure 110/70 Pulse Oximetry 98 Oxygen Delivery Method Room Air BMI result Body Mass Index 25.4 Labs Results: 04/22/22 15:53 04/22/22 15:53 Medications Medications Current Medications Acetaminophen (Acetaminophen 325 Mg Tablet) 650 mg PO Q6H PRN PRN Reason: Headache/Pain Mild Scale (1-3) Al Hydroxide/Mg Hydroxide (Magnesium Hydrox/Alum Hydrox 30 Ml Oral.Susp) 30 ml PO Q6H PRN PRN Reason: Heartburn/Nausea Albuterol Sulfate (Albuterol Sulfate 90 Mcg 8 Gm Inhaler) 2 puff INHALE QID PRN PRN Reason: shortness of breath or wheezing Benztropine Mesylate (Benztropine Mesylate 1 Mg Tablet) 1 mg PO BID [facility] Last Admin: 04/28/22 10:01 Dose: 1 mg Calcium Carbonate/Cholecalciferol (Calcium + Vitamin D 250 Mg Tablet) 250 mg PO DAILY [facility] Last Admin: 04/28/22 10:02 Dose: 250 mg Diphenhydramine HCl (Diphenhydramine Hcl 25 Mg Tablet) 25 mg PO DAILY PRN PRN Reason: DYSTONIA Hydrocortisone (Hydrocortisone 1 % Cream 28.35 Gm Tube) 1 appl TOPICAL BID PRN PRN Reason: skin breakdown between fingers Hydroxyzine HCl (Hydroxyzine Hcl 25 Mg Tablet) 25 mg PO Q6H PRN PRN Reason: Anxiety Hydroxyzine HCl (Hydroxyzine Hcl 25 Mg Tablet) 25 mg PO TID PRN PRN Reason: ANXIETY/SLEEP Lactase (Lactase Tablet) 1 tab PO TIDWM [facility] Last Admin: 04/28/22 11:03 Dose: 1 tab Lurasidone HCl (Lurasidone Hcl 20 Mg Tablet) 100 mg PO BEDTIME [facility] Last Admin: 04/27/22 20:59 Dose: 100 mg Magnesium Hydroxide (Milk Of Magnesia 30 Ml Oral.Susp) 30 ml PO DAILY PRN PRN Reason: Constipation Melatonin (Melatonin 3 Mg Tablet) 9 mg PO BEDTIME [facility] Last Admin: 04/27/22 21:00 Dose: 9 mg Multivitamins/Vitamin C (Multivitamin Tablet) 1 tab PO DAILY [facility] Last Admin: 04/28/22 10:01 Dose: 1 tab Nicotine Polacrilex (Nicotine Polacrilex 2 Mg Gum) 2 mg BUCCAL Q2H PRN PRN Reason: Nicotine Cravings Last Admin: 04/28/22 12:37 Dose: 2 mg Olanzapine (Olanzapine 2.5 Mg Tablet) 2.5 mg PO BEDTIME [facility] Last Admin: 04/27/22 21:00 Dose: 2.5 mg Polyethylene Glycol (Polyethylene Glycol 3350 17 Gm Powd.Pack) 17 gm PO DAILY PRN PRN Reason: constipation Polyethylene Glycol (Polyethylene Glycol 3350 17 Gm Powd.Pack) 17 gm PO DAILY [facility] Last Admin: 04/28/22 10:01 Dose: 17 gm Pyridoxine HCl (Pyridoxine Hcl (Vitamin B6) 50 Mg Tablet) 25 mg PO DAILY [facility] Last Admin: 04/28/22 10:01 Dose: 25 mg Senna (Sennosides 8.6 Mg Tablet) 8.6 mg PO BID [facility] Last Admin: 04/28/22 10:01 Dose: 8.6 mg Senna/Docusate Sodium (Sennosides/Docusate Sodium Tablet) 2 tab PO BEDTIME [facility] Last Admin: 04/27/22 21:00 Dose: 2 tab Sertraline HCl (Sertraline Hcl 25 Mg Tablet) 25 mg PO DAILY [facility] Last Admin: 04/28/22 10:02 Dose: 25 mg Vitamin D (Cholecalciferol (Vitamin D3) 25 Mcg Tablet) 25 mcg PO DAILY [facility] Last Admin: 04/28/22 10:01 Dose: 25 mcg Allergies Allergies Allergy/AdvReac Type Severity Reaction Status Date / Time aripiprazole [Abilify] Allergy Unknown tongue Verified 03/04/22 10:00 swells and gain weight risperidone [From Risperdal] AdvReac Unknown gain Verified 03/04/22 10:00 weight, and slurred speech cariprazine [From Vraylar] AdvReac Verified 12/19/21 14:42 haloperidol [From Haldol] AdvReac DYSTONIA Verified 02/21/22 18:22 paliperidone AdvReac dystonia Verified 12/19/21 14:42 trazodone AdvReac DYSTONIA Verified 02/21/22 18:23 Assessment & Plan Assessment & Plan (1) Schizoaffective disorder, depressive type: Status: Acute Code(s): F25.1 - Schizoaffective disorder, depressive type Plan 21 yo female, hx of schizoaffective disorder, substance use. retirement reports an increase in psychotic sx. Pt has explanation for each symptom [facility] identifies. Pt reports she is not suicidal, is not hearing voices, but is grieving loss of a boyfriend whom she learned was dating one of her former acquaintances. Mom reports pt is eating and taking medications. Plan: Collateral contact to validate sx Family meeting to discuss medication changes (mom is guardian) Full milieu integration and encouragement. 04/25/22- Increase Latuda to 100 mg daily 04/26: denying Sx. continue current mgmt. 04/27: continue current mgmt. 04/28: continue current mgmt. I spent ___15___ minutes with the patient and/or on the patient floor today, greater than?50% of which was spent counseling/coordinating care. Reason for contiued inpatient stay Substantial Risk for: inability to function and rapid decompensation
[2022-04-28 16:07] VITALS: BP 121/80; PULSE 70; TEMP 36.8; O2SAT 97
[2022-04-28] MEDS: hydrOXYzine HCL 25 MG TABLET PO (20:28)
[2022-04-28] MEDS: Lurasidone HCl 20 MG TABLET 100 MG PO (21:22)
[2022-04-28] MEDS: Melatonin 3 MG TABLET 9 MG PO (21:22)
[2022-04-28] MEDS: Sennosides/Docusate Sodium TABLET 2 TAB PO (21:22)
[2022-04-28] MEDS: OLANZapine 2.5 MG TABLET PO (21:23)
[2022-04-29] MEDS: Benztropine Mesylate 1 MG TABLET PO ×2 (09:46→20:53)
[2022-04-29] MEDS: Pyridoxine HCl (Vitamin B6) 50 MG TABLET 25 MG PO (09:46)
[2022-04-29] MEDS: polyethylene glycoL 3350 17 GM POWD.PACK PO (09:46)
[2022-04-29] MEDS: Lactase TABLET 1 TAB PO ×3 (09:47→16:04)
[2022-04-29] MEDS: Sertraline HCL 25 MG TABLET PO (09:47)
[2022-04-29] MEDS: Calcium + Vitamin D 250 MG TABLET PO (09:47)
[2022-04-29] MEDS: Cholecalciferol (Vitamin D3) 25 MCG TABLET PO (09:47)
[2022-04-29] MEDS: Multivitamin TABLET 1 TAB PO (09:47)
[2022-04-29] MEDS: Sennosides 8.6 MG TABLET PO (09:47)
[2022-04-29] MEDS: hydrOXYzine HCL 25 MG TABLET PO ×2 (10:07→16:04)
[2022-04-29] MEDS: Nicotine Polacrilex 2 MG GUM BUCCAL ×4 (10:35→19:47)
[2022-04-29 18:00] VITALS: BP 113/71; PULSE 77; RESP 18; TEMP 35.5; O2SAT 99
--- NOTE | 2022-04-29 18:06 | P.PNPSI_ITS ---
Subjective Subjective Date of Service: 04/29/22 Reason For Visit: Psychosis Subjective Notes: Conditional Voluntary Healthcare Proxy: No Guardianship: Yes Medical Problems Affecting Mental Status: No Interim History: Latuda increase to 100 mg daily. Pt reporting ongoing sx of yeast infection as well as worry, anxiety, heat in my head , voices. Medication Compliance: Yes Side effects from medications: No Attending Groups: Intermittent Review of Systems Acute medical concerns: No Medical Review of Systems: unchanged Mental Status Exam Mental Status Exam Patient Appearance: Disheveled Patient Orientation: Person, Place, Time and Situation Level of Consciousness: Alert Patient Behavior: Talkative and Good Eye Contact Mood Description: Suspicious and Withdrawn Affect Description: Constricted Patient Cognition Impaired: No Ability to Follow Directions: Good Speech Pattern: Spontaneous Speech Memory Description: Episodic Impaired Hallucinations: Auditory Delusions: Paranoid Ideation Perceptual Disturbances: Depersonalization Thought Process: Distracted and Rumination Thought Content: positive for Obsessional Thoughts, positive for Circumstantial and positive for Perseveration Depressive Symptoms: Increased Anxiety Abnormal Motor Activity Signs and Symptoms: Restlessness Judgement: Fair Diagnostics Vital Signs (24Hr): BMI result Body Mass Index 25.4 Labs Results: 04/22/22 15:53 04/22/22 15:53 Medications Medications Current Medications Acetaminophen (Acetaminophen 325 Mg Tablet) 650 mg PO Q6H PRN PRN Reason: Headache/Pain Mild Scale (1-3) Al Hydroxide/Mg Hydroxide (Magnesium Hydrox/Alum Hydrox 30 Ml Oral.Susp) 30 ml PO Q6H PRN PRN Reason: Heartburn/Nausea Albuterol Sulfate (Albuterol Sulfate 90 Mcg 8 Gm Inhaler) 2 puff INHALE QID PRN PRN Reason: shortness of breath or wheezing Benztropine Mesylate (Benztropine Mesylate 1 Mg Tablet) 1 mg PO BID [facility] Last Admin: 04/29/22 09:46 Dose: 1 mg Calcium Carbonate/Cholecalciferol (Calcium + Vitamin D 250 Mg Tablet) 250 mg PO DAILY [facility] Last Admin: 04/29/22 09:47 Dose: 250 mg Diphenhydramine HCl (Diphenhydramine Hcl 25 Mg Tablet) 25 mg PO DAILY PRN PRN Reason: DYSTONIA Hydrocortisone (Hydrocortisone 1 % Cream 28.35 Gm Tube) 1 appl TOPICAL BID PRN PRN Reason: skin breakdown between fingers Hydroxyzine HCl (Hydroxyzine Hcl 25 Mg Tablet) 25 mg PO Q6H PRN PRN Reason: Anxiety Last Admin: 04/29/22 10:07 Dose: 25 mg Hydroxyzine HCl (Hydroxyzine Hcl 25 Mg Tablet) 25 mg PO TID PRN PRN Reason: ANXIETY/SLEEP Last Admin: 04/29/22 16:04 Dose: 25 mg Lactase (Lactase Tablet) 1 tab PO TIDWM [facility] Last Admin: 04/29/22 16:04 Dose: 1 tab Lurasidone HCl (Lurasidone Hcl 20 Mg Tablet) 100 mg PO BEDTIME [facility] Last Admin: 04/28/22 21:22 Dose: 100 mg Magnesium Hydroxide (Milk Of Magnesia 30 Ml Oral.Susp) 30 ml PO DAILY PRN PRN Reason: Constipation Melatonin (Melatonin 3 Mg Tablet) 9 mg PO BEDTIME [facility] Last Admin: 04/28/22 21:22 Dose: 9 mg Multivitamins/Vitamin C (Multivitamin Tablet) 1 tab PO DAILY [facility] Last Admin: 04/29/22 09:47 Dose: 1 tab Nicotine Polacrilex (Nicotine Polacrilex 2 Mg Gum) 2 mg BUCCAL Q2H PRN PRN Reason: Nicotine Cravings Last Admin: 04/29/22 16:29 Dose: 2 mg Olanzapine (Olanzapine 2.5 Mg Tablet) 2.5 mg PO BEDTIME [facility] Last Admin: 04/28/22 21:23 Dose: 2.5 mg Polyethylene Glycol (Polyethylene Glycol 3350 17 Gm Powd.Pack) 17 gm PO DAILY PRN PRN Reason: constipation Polyethylene Glycol (Polyethylene Glycol 3350 17 Gm Powd.Pack) 17 gm PO DAILY [facility] Last Admin: 04/29/22 09:46 Dose: 17 gm Pyridoxine HCl (Pyridoxine Hcl (Vitamin B6) 50 Mg Tablet) 25 mg PO DAILY [facility] Last Admin: 04/29/22 09:46 Dose: 25 mg Senna (Sennosides 8.6 Mg Tablet) 8.6 mg PO BID [facility] Last Admin: 04/29/22 09:47 Dose: 8.6 mg Senna/Docusate Sodium (Sennosides/Docusate Sodium Tablet) 2 tab PO BEDTIME [facility] Last Admin: 04/28/22 21:22 Dose: 2 tab Sertraline HCl (Sertraline Hcl 25 Mg Tablet) 25 mg PO DAILY [facility] Last Admin: 04/29/22 09:47 Dose: 25 mg Vitamin D (Cholecalciferol (Vitamin D3) 25 Mcg Tablet) 25 mcg PO DAILY [facility] Last Admin: 04/29/22 09:47 Dose: 25 mcg Allergies Allergies Allergy/AdvReac Type Severity Reaction Status Date / Time aripiprazole [Abilify] Allergy Unknown tongue Verified 03/04/22 10:00 swells and gain weight risperidone [From Risperdal] AdvReac Unknown gain Verified 03/04/22 10:00 weight, and slurred speech cariprazine [From Vraylar] AdvReac Verified 12/19/21 14:42 haloperidol [From Haldol] AdvReac DYSTONIA Verified 02/21/22 18:22 paliperidone AdvReac dystonia Verified 12/19/21 14:42 trazodone AdvReac DYSTONIA Verified 02/21/22 18:23 Assessment & Plan Assessment & Plan (1) Schizoaffective disorder, depressive type: Status: Acute Code(s): F25.1 - Schizoaffective disorder, depressive type Plan 21 yo female, hx of schizoaffective disorder, substance use. [facility] reports an increase in psychotic sx. Pt has explanation for each symptom custodial identifies. Pt reports she is not suicidal, is not hearing voices, but is grieving loss of a boyfriend whom she learned was dating one of her former acquaintances. Mom reports pt is eating and taking medications. Plan: Collateral contact to validate sx Family meeting to discuss medication changes (mom is guardian) Full milieu integration and encouragement. 04/25/22- Increase Latuda to 100 mg daily 04/26: denying Sx. continue current mgmt. 04/27: continue current mgmt. 04/28: continue current mgmt. 04/29/22: Increase Latuda to 100 mg daily Flagyl 500 mg bid 04/29-05/06 Pt asks for MRI secondary to voices. Education provided, however, no MRI at this time due to absence of physical sx. I spent minutes with the patient and/or on the patient floor today, greater than?50% of which was spent counseling/coordinating care. Patient educated on: medication risk/benefits, therapeutic strategies and medical condition Informed Consent: understands and further education needed Reason for contiued inpatient stay Substantial Risk for: inability to function and rapid decompensation
[2022-04-29] MEDS: Sennosides/Docusate Sodium TABLET 2 TAB PO (20:52)
[2022-04-29] MEDS: Lurasidone HCl 20 MG TABLET 100 MG PO (20:53)
[2022-04-29] MEDS: OLANZapine 2.5 MG TABLET PO (20:54)
[2022-04-29] MEDS: Melatonin 3 MG TABLET 9 MG PO (20:58)
[2022-04-29] MEDS: metroNIDAZOLE 500 MG TABLET PO (21:01)
[2022-04-30] MEDS: Benztropine Mesylate 1 MG TABLET PO ×2 (08:01→21:52)
[2022-04-30] MEDS: Calcium + Vitamin D 250 MG TABLET PO (08:01)
[2022-04-30] MEDS: Cholecalciferol (Vitamin D3) 25 MCG TABLET PO (08:01)
[2022-04-30] MEDS: metroNIDAZOLE 500 MG TABLET PO ×2 (08:01→19:53)
[2022-04-30] MEDS: Sennosides 8.6 MG TABLET PO (08:02)
[2022-04-30] MEDS: Pyridoxine HCl (Vitamin B6) 50 MG TABLET 25 MG PO (08:02)
[2022-04-30] MEDS: Lactase TABLET 1 TAB PO ×3 (08:02→16:53)
[2022-04-30] MEDS: Sertraline HCL 25 MG TABLET PO (08:03)
[2022-04-30] MEDS: Multivitamin TABLET 1 TAB PO (08:03)
[2022-04-30] MEDS: polyethylene glycoL 3350 17 GM POWD.PACK PO (08:04)
--- NOTE | 2022-04-30 10:44 | HO.PSYCHPN ---
Subjective Subjective Date of Service: 04/30/22 Reason For Visit: Psychosis Interim History: Patient reports that auditory hallucinations are worsening and asked if an MRI for her head would be helpful; patient understood that treatment for this at this point his medication. She agreed to increasing Latuda. Mental Status Exam Mental Status Exam Patient Appearance: Appropriate Patient Orientation: Person, Place, Time and Situation Level of Consciousness: Alert Patient Behavior: Appropriate, Talkative and Good Eye Contact Mood Description: Anxious Affect Description: Anxious Patient Cognition Impaired: No Ability to Follow Directions: Good Speech Pattern: Spontaneous Speech Memory Description: Episodic Impaired Hallucinations: Auditory Delusions: Paranoid Ideation Perceptual Disturbances: Depersonalization Thought Process: Distracted and Rumination Thought Content: positive for [place], positive for Obsessional Thoughts, positive for Circumstantial, positive for Goal Oriented and positive for Perseveration Depressive Symptoms: Increased Anxiety Abnormal Motor Activity Signs and Symptoms: Restlessness Judgement: Fair Diagnostics Vital Signs (24Hr): Vital Signs - 24 hr 04/29/22 18:00 Temperature 96 F L Pulse Rate 77 Respiratory Rate 18 Blood Pressure 113/71 Pulse Oximetry 99 Oxygen Delivery Method Room Air BMI result Body Mass Index 25.4 Labs Results: 04/22/22 15:53 04/22/22 15:53 Medications Medications Current Medications Acetaminophen (Acetaminophen 325 Mg Tablet) 650 mg PO Q6H PRN PRN Reason: Headache/Pain Mild Scale (1-3) Al Hydroxide/Mg Hydroxide (Magnesium Hydrox/Alum Hydrox 30 Ml Oral.Susp) 30 ml PO Q6H PRN PRN Reason: Heartburn/Nausea Albuterol Sulfate (Albuterol Sulfate 90 Mcg 8 Gm Inhaler) 2 puff INHALE QID PRN PRN Reason: shortness of breath or wheezing Benztropine Mesylate (Benztropine Mesylate 1 Mg Tablet) 1 mg PO BID [facility] Last Admin: 04/30/22 08:01 Dose: 1 mg Calcium Carbonate/Cholecalciferol (Calcium + Vitamin D 250 Mg Tablet) 250 mg PO DAILY [facility] Last Admin: 04/30/22 08:01 Dose: 250 mg Diphenhydramine HCl (Diphenhydramine Hcl 25 Mg Tablet) 25 mg PO DAILY PRN PRN Reason: DYSTONIA Hydrocortisone (Hydrocortisone 1 % Cream 28.35 Gm Tube) 1 appl TOPICAL BID PRN PRN Reason: skin breakdown between fingers Hydroxyzine HCl (Hydroxyzine Hcl 25 Mg Tablet) 25 mg PO Q6H PRN PRN Reason: Anxiety Last Admin: 04/29/22 10:07 Dose: 25 mg Hydroxyzine HCl (Hydroxyzine Hcl 25 Mg Tablet) 25 mg PO TID PRN PRN Reason: ANXIETY/SLEEP Last Admin: 04/29/22 16:04 Dose: 25 mg Lactase (Lactase Tablet) 1 tab PO TIDWM [facility] Last Admin: 04/30/22 08:02 Dose: 1 tab Lurasidone HCl (Lurasidone Hcl 20 Mg Tablet) 100 mg PO BEDTIME [facility] Last Admin: 04/29/22 20:53 Dose: 100 mg Magnesium Hydroxide (Milk Of Magnesia 30 Ml Oral.Susp) 30 ml PO DAILY PRN PRN Reason: Constipation Melatonin (Melatonin 3 Mg Tablet) 9 mg PO BEDTIME [facility] Last Admin: 04/29/22 20:58 Dose: 9 mg Metronidazole (Metronidazole 500 Mg Tablet) 500 mg PO Q12H [facility] Stop: 05/06/22 21:00 Last Admin: 04/30/22 08:01 Dose: 500 mg Multivitamins/Vitamin C (Multivitamin Tablet) 1 tab PO DAILY [facility] Last Admin: 04/30/22 08:03 Dose: 1 tab Nicotine Polacrilex (Nicotine Polacrilex 2 Mg Gum) 2 mg BUCCAL Q2H PRN PRN Reason: Nicotine Cravings Last Admin: 04/29/22 19:47 Dose: 2 mg Olanzapine (Olanzapine 2.5 Mg Tablet) 2.5 mg PO BEDTIME [facility] Last Admin: 04/29/22 20:54 Dose: 2.5 mg Polyethylene Glycol (Polyethylene Glycol 3350 17 Gm Powd.Pack) 17 gm PO DAILY PRN PRN Reason: constipation Polyethylene Glycol (Polyethylene Glycol 3350 17 Gm Powd.Pack) 17 gm PO DAILY [facility] Last Admin: 04/30/22 08:04 Dose: 17 gm Pyridoxine HCl (Pyridoxine Hcl (Vitamin B6) 50 Mg Tablet) 25 mg PO DAILY [facility] Last Admin: 04/30/22 08:02 Dose: 25 mg Senna (Sennosides 8.6 Mg Tablet) 8.6 mg PO BID [facility] Last Admin: 04/30/22 08:02 Dose: 8.6 mg Senna/Docusate Sodium (Sennosides/Docusate Sodium Tablet) 2 tab PO BEDTIME [facility] Last Admin: 04/29/22 20:52 Dose: 2 tab Sertraline HCl (Sertraline Hcl 25 Mg Tablet) 25 mg PO DAILY [facility] Last Admin: 04/30/22 08:03 Dose: 25 mg Vitamin D (Cholecalciferol (Vitamin D3) 25 Mcg Tablet) 25 mcg PO DAILY [facility] Last Admin: 04/30/22 08:01 Dose: 25 mcg Allergies Allergies Allergy/AdvReac Type Severity Reaction Status Date / Time aripiprazole [Abilify] Allergy Unknown tongue Verified 03/04/22 10:00 swells and gain weight risperidone [From Risperdal] AdvReac Unknown gain Verified 03/04/22 10:00 weight, and slurred speech cariprazine [From Vraylar] AdvReac Verified 12/19/21 14:42 haloperidol [From Haldol] AdvReac DYSTONIA Verified 02/21/22 18:22 paliperidone AdvReac dystonia Verified 12/19/21 14:42 trazodone AdvReac DYSTONIA Verified 02/21/22 18:23 Assessment & Plan Assessment & Plan (1) Schizoaffective disorder, depressive type: Status: Resolved Code(s): F25.1 - Schizoaffective disorder, depressive type Plan 21 yo female, hx of schizoaffective disorder, substance use. care home reports an increase in psychotic sx. Pt has explanation for each symptom fdc identifies. Pt reports she is not suicidal, is not hearing voices, but is grieving loss of a boyfriend whom she learned was dating one of her former acquaintances. Mom reports pt is eating and taking medications. Plan: Collateral contact to validate sx Family meeting to discuss medication changes (mom is guardian) Full milieu integration and encouragement. 04/25/22- Increase Latuda to 100 mg daily 04/26: denying Sx. continue current mgmt. 04/27: continue current mgmt. 04/28: continue current mgmt. 04/30 Increase Latuda to 120 mg for continued auditory hallucinations I spent minutes with the patient and/or on the patient floor today, greater than?50% of which was spent counseling/coordinating care. Patient educated on: diagnosis and medication risk/benefits Informed Consent: understands and further education needed Reason for contiued inpatient stay Substantial Risk for: med/psych decompensation
[2022-04-30] MEDS: Nicotine Polacrilex 2 MG GUM BUCCAL ×5 (11:45→21:53)
[2022-04-30 16:55] VITALS: BP 113/61; PULSE 97; TEMP 35.9
[2022-04-30] MEDS: OLANZapine 2.5 MG TABLET PO (21:50)
[2022-04-30] MEDS: Sennosides/Docusate Sodium TABLET 2 TAB PO (21:51)
[2022-04-30] MEDS: Melatonin 3 MG TABLET 9 MG PO (21:52)
[2022-04-30] MEDS: Lurasidone HCl 40 MG TABLET 120 MG PO (21:53)
[2022-05-01] MEDS: Sennosides 8.6 MG TABLET PO ×2 (08:32→21:53)
[2022-05-01] MEDS: Multivitamin TABLET 1 TAB PO (08:32)
[2022-05-01] MEDS: Cholecalciferol (Vitamin D3) 25 MCG TABLET PO (08:32)
[2022-05-01] MEDS: Pyridoxine HCl (Vitamin B6) 50 MG TABLET 25 MG PO (08:32)
[2022-05-01] MEDS: Benztropine Mesylate 1 MG TABLET PO ×2 (08:32→21:52)
[2022-05-01] MEDS: Calcium + Vitamin D 250 MG TABLET PO (08:36)
[2022-05-01] MEDS: Lactase TABLET 1 TAB PO ×3 (08:36→16:36)
[2022-05-01] MEDS: metroNIDAZOLE 500 MG TABLET PO ×2 (08:36→18:43)
[2022-05-01] MEDS: polyethylene glycoL 3350 17 GM POWD.PACK PO (08:38)
[2022-05-01] MEDS: Sertraline HCL 25 MG TABLET PO (08:38)
[2022-05-01] MEDS: Nicotine Polacrilex 2 MG GUM BUCCAL ×4 (12:47→18:44)
--- NOTE | 2022-05-01 13:01 | P.PNPSI_ITS ---
Subjective Subjective Date of Service: 05/01/22 Reason For Visit: Psychosis Subjective Notes: Conditional Voluntary Interim History: Latuda increased to 120 mg on 04/30. Denies adverse effects. Feeling prepared for discharge on 05/02. 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 Continues to ask for MRI as voices have told her. Discussed interventions for voices, asked about increasing Olanzapine, however, she refuses at this time. Medication Compliance: Yes Side effects from medications: No Attending Groups: No Review of Systems Acute medical concerns: No Medical Review of Systems: unchanged Mental Status Exam Mental Status Exam Patient Appearance: Disheveled Patient Orientation: Person, Place, Time and Situation Level of Consciousness: Alert Patient Behavior: Talkative and Good Eye Contact Mood Description: Suspicious and Withdrawn Affect Description: Constricted Patient Cognition Impaired: No Ability to Follow Directions: Good Speech Pattern: Spontaneous Speech Memory Description: Episodic Impaired Hallucinations: Auditory Delusions: Paranoid Ideation Perceptual Disturbances: Depersonalization Thought Process: Distracted and Rumination Thought Content: positive for Obsessional Thoughts, positive for Circumstantial and positive for Perseveration Depressive Symptoms: Increased Anxiety Abnormal Motor Activity Signs and Symptoms: Restlessness Judgement: Fair Diagnostics Vital Signs (24Hr): Vital Signs - 24 hr 04/30/22 16:55 Temperature 96.7 F L Pulse Rate 97 Blood Pressure 113/61 BMI result Body Mass Index 25.4 Labs Results: 04/22/22 15:53 04/22/22 15:53 Medications Medications Current Medications Acetaminophen (Acetaminophen 325 Mg Tablet) 650 mg PO Q6H PRN PRN Reason: Headache/Pain Mild Scale (1-3) Al Hydroxide/Mg Hydroxide (Magnesium Hydrox/Alum Hydrox 30 Ml Oral.Susp) 30 ml PO Q6H PRN PRN Reason: Heartburn/Nausea Albuterol Sulfate (Albuterol Sulfate 90 Mcg 8 Gm Inhaler) 2 puff INHALE QID PRN PRN Reason: shortness of breath or wheezing Benztropine Mesylate (Benztropine Mesylate 1 Mg Tablet) 1 mg PO BID [facility] Last Admin: 05/01/22 08:32 Dose: 1 mg Calcium Carbonate/Cholecalciferol (Calcium + Vitamin D 250 Mg Tablet) 250 mg PO DAILY [facility] Last Admin: 05/01/22 08:36 Dose: 250 mg Diphenhydramine HCl (Diphenhydramine Hcl 25 Mg Tablet) 25 mg PO DAILY PRN PRN Reason: DYSTONIA Hydrocortisone (Hydrocortisone 1 % Cream 28.35 Gm Tube) 1 appl TOPICAL BID PRN PRN Reason: skin breakdown between fingers Hydroxyzine HCl (Hydroxyzine Hcl 25 Mg Tablet) 25 mg PO Q6H PRN PRN Reason: Anxiety Last Admin: 04/29/22 10:07 Dose: 25 mg Hydroxyzine HCl (Hydroxyzine Hcl 25 Mg Tablet) 25 mg PO TID PRN PRN Reason: ANXIETY/SLEEP Last Admin: 04/29/22 16:04 Dose: 25 mg Lactase (Lactase Tablet) 1 tab PO TIDWM [facility] Last Admin: 05/01/22 12:29 Dose: 1 tab Lurasidone HCl (Lurasidone Hcl 40 Mg Tablet) 120 mg PO BEDTIME [facility] Last Admin: 04/30/22 21:53 Dose: 120 mg Magnesium Hydroxide (Milk Of Magnesia 30 Ml Oral.Susp) 30 ml PO DAILY PRN PRN Reason: Constipation Melatonin (Melatonin 3 Mg Tablet) 9 mg PO BEDTIME [facility] Last Admin: 04/30/22 21:52 Dose: 9 mg Metronidazole (Metronidazole 500 Mg Tablet) 500 mg PO Q12H [facility] Stop: 05/06/22 21:00 Last Admin: 05/01/22 08:36 Dose: 500 mg Multivitamins/Vitamin C (Multivitamin Tablet) 1 tab PO DAILY [facility] Last Admin: 05/01/22 08:32 Dose: 1 tab Nicotine Polacrilex (Nicotine Polacrilex 2 Mg Gum) 2 mg BUCCAL Q2H PRN PRN Reason: Nicotine Cravings Last Admin: 05/01/22 12:47 Dose: 2 mg Olanzapine (Olanzapine 2.5 Mg Tablet) 2.5 mg PO BEDTIME [facility] Last Admin: 04/30/22 21:50 Dose: 2.5 mg Polyethylene Glycol (Polyethylene Glycol 3350 17 Gm Powd.Pack) 17 gm PO DAILY PRN PRN Reason: constipation Polyethylene Glycol (Polyethylene Glycol 3350 17 Gm Powd.Pack) 17 gm PO DAILY [facility] Last Admin: 05/01/22 08:38 Dose: 17 gm Pyridoxine HCl (Pyridoxine Hcl (Vitamin B6) 50 Mg Tablet) 25 mg PO DAILY [facility] Last Admin: 05/01/22 08:32 Dose: 25 mg Senna (Sennosides 8.6 Mg Tablet) 8.6 mg PO BID [facility] Last Admin: 05/01/22 08:32 Dose: 8.6 mg Senna/Docusate Sodium (Sennosides/Docusate Sodium Tablet) 2 tab PO BEDTIME [facility] Last Admin: 04/30/22 21:51 Dose: 2 tab Sertraline HCl (Sertraline Hcl 25 Mg Tablet) 25 mg PO DAILY [facility] Last Admin: 05/01/22 08:38 Dose: 25 mg Vitamin D (Cholecalciferol (Vitamin D3) 25 Mcg Tablet) 25 mcg PO DAILY [facility] Last Admin: 05/01/22 08:32 Dose: 25 mcg Allergies Allergies Allergy/AdvReac Type Severity Reaction Status Date / Time aripiprazole [Abilify] Allergy Unknown tongue Verified 03/04/22 10:00 swells and gain weight risperidone [From Risperdal] AdvReac Unknown gain Verified 03/04/22 10:00 weight, and slurred speech cariprazine [From Vraylar] AdvReac Verified 12/19/21 14:42 haloperidol [From Haldol] AdvReac DYSTONIA Verified 02/21/22 18:22 paliperidone AdvReac dystonia Verified 12/19/21 14:42 trazodone AdvReac DYSTONIA Verified 02/21/22 18:23 Assessment & Plan Assessment & Plan (1) Schizoaffective disorder, depressive type: Status: Acute Code(s): F25.1 - Schizoaffective disorder, depressive type Plan 21 yo female, hx of schizoaffective disorder, substance use. long-term reports an increase in psychotic sx. Pt has explanation for each symptom residential identifies. Pt reports she is not suicidal, is not hearing voices, but is grieving loss of a boyfriend whom she learned was dating one of her former acquaintances. Mom reports pt is eating and taking medications. Plan: Collateral contact to validate sx Family meeting to discuss medication changes (mom is guardian) Full milieu integration and encouragement. 04/25/22- Increase Latuda to 100 mg daily 04/26: denying Sx. continue current mgmt. 04/27: continue current mgmt. 04/28: continue current mgmt. 05/01/22: Latuda increased to 120 mg 04/30. Pt is tolerating this, continues with voices, declines Olanzapine increase. I spent minutes with the patient and/or on the patient floor today, greater than?50% of which was spent counseling/coordinating care. Patient educated on: medication risk/benefits Informed Consent: further education needed Reason for contiued inpatient stay Substantial Risk for: inability to function and rapid decompensation
[2022-05-01] MEDS: hydrOXYzine HCL 25 MG TABLET PO ×2 (13:47→21:53)
[2022-05-01] MEDS: Lurasidone HCl 40 MG TABLET 120 MG PO (21:52)
[2022-05-01] MEDS: Melatonin 3 MG TABLET 9 MG PO (21:52)
[2022-05-01] MEDS: OLANZapine 2.5 MG TABLET PO (21:53)
[2022-05-01] MEDS: Sennosides/Docusate Sodium TABLET 2 TAB PO (21:57)
[2022-05-02] MEDS: metroNIDAZOLE 500 MG TABLET PO (06:31)
[2022-05-02] MEDS: Sennosides 8.6 MG TABLET PO (08:45)
[2022-05-02] MEDS: Benztropine Mesylate 1 MG TABLET PO (08:45)
[2022-05-02] MEDS: Calcium + Vitamin D 250 MG TABLET PO (08:45)
[2022-05-02] MEDS: Pyridoxine HCl (Vitamin B6) 50 MG TABLET 25 MG PO (08:45)
[2022-05-02] MEDS: Sertraline HCL 25 MG TABLET PO (08:45)
[2022-05-02] MEDS: Multivitamin TABLET 1 TAB PO (08:45)
[2022-05-02] MEDS: Cholecalciferol (Vitamin D3) 25 MCG TABLET PO (08:45)
[2022-05-02] MEDS: Lactase TABLET 1 TAB PO (08:45)
[2022-05-02] MEDS: polyethylene glycoL 3350 17 GM POWD.PACK PO (08:46)
[2022-05-02] MEDS: Nicotine Polacrilex 2 MG GUM BUCCAL (08:46)
--- NOTE | 2022-05-02 09:17 | PM.PSYDC ---
DS: Providers Provider Date of Service: 05/02/22 Date of admission: 04/22/22 16:59 Date of discharge: 05/02/22 Primary care physician: Unknown Physician Admitting clinician: Zee Washington Attending physician on admission: Zeferino Gentile Attending physician on discharge: Zeferino Gentile Discharging clinician: Zee Washington DS: Diagnosis Discharge Diagnosis (1) Schizoaffective disorder, depressive type: Status: Resolved DS: Medications Discharge Medications Home Medications: Previous Rx's Medication Instructions Recorded ProAir HFA 90 mcg/actuation 2 puff inhalation QID PRN 04/09/22 aerosol inhaler (albuterol sulfate) shortness of breath or wheezing #1 inhaler calcium carbonate 250 mg-vitamin 250 mg PO DAILY #30 tabs 04/09/22 D3 3.125 mcg (125 unit) tablet cholecalciferol (vitamin D3) 25 1 cap PO DAILY #30 caps 04/09/22 mcg (1,000 unit) capsule (Vitamin D3) diphenhydramine HCl 25 mg tablet 25 mg PO DAILY PRN DYSTONIA #30 04/09/22 (Banophen) tabs folic acid 400 mcg tablet 0.4 mg PO DAILY #30 tabs 04/09/22 food supplemt, lactose-reduced 1 ea PO TID-QID PRN nutritional 04/09/22 (Ensure High Protein oral liquid) supplementation #5,688 mL hydrocortisone 1 % topical cream 1 appl topical BID PRN skin 04/09/22 breakdown between fingers #1 applicator lactase 3,000 unit tablet 1 tab PO TIDWM #90 tabs 04/09/22 melatonin 5 mg tablet 10 mg PO BEDTIME #60 tabs 04/09/22 multivitamin 1 tab PO DAILY #30 tabs 04/09/22 nicotine (polacrilex) 2 mg gum 1 ea PO Q2H PRN Nicotine Cravings 04/09/22 #60 ea polyethylene glycol 3350 17 gram 17 g PO DAILY #110 ea 04/09/22 oral powder packet polyethylene glycol 3350 17 17 g PO DAILY PRN constipation 04/09/22 gram/dose oral powder (Gavilax) #110 grams pyridoxine (vitamin B6) 50 mg 25 mg PO DAILY #15 tabs 04/09/22 tablet sennosides 8.6 mg tablet (senna) 8.6 mg PO BID #60 tabs 04/09/22 sennosides 8.6 mg-docusate sodium 2 tab PO BEDTIME #60 tabs 04/09/22 50 mg tablet (Senna Plus) benztropine 1 mg tablet 1 mg PO BID #60 tabs 05/02/22 hydroxyzine pamoate 25 mg capsule 1 cap PO TID PRN ANXIETY/SLEEP #90 05/02/22 caps lurasidone 40 mg tablet (Latuda) 120 mg PO BEDTIME #90 tabs 05/02/22 metronidazole 500 mg tablet 500 mg PO Q12H #10 tabs 05/02/22 olanzapine 2.5 mg tablet 2.5 mg PO BEDTIME #30 tabs 05/02/22 sertraline 25 mg tablet 25 mg PO DAILY #30 tabs 05/02/22 Mental Status Exam Mental Status Exam Patient Appearance: Appropriate Patient Orientation: Person, Place, Time and Situation Level of Consciousness: Alert Patient Behavior: Talkative and Good Eye Contact Mood Description: Appropriate Affect Description: Constricted Patient Cognition Impaired: No Ability to Follow Directions: Good Speech Pattern: Spontaneous Speech Memory Description: Episodic Impaired Perceptual Disturbances: Depersonalization Thought Process: Distracted Thought Content: positive for Circumstantial Depressive Symptoms: Increased Anxiety Abnormal Motor Activity Signs and Symptoms: Restlessness Judgement: Fair DS: Summary Hospital Course Hospital Course: Admission to adult psychiatry for exacerbation of symptoms of schizoaffective disorder and alcohol use. Latuda was increased during pt's admission. Sertraline was re-started, Olanzapine was continued. Desi currently living in a residential and is under guardianship by her mother. She is currently at a crossroads with taking medication and does not believe medication is needed for her symptoms. She has subtherapeutic responses from her current regime and is working with her out patient team and her mother to find a compromise for treatment efficacy and satisfaction with a plan of care. Upon discharge she is asymptomatic, compliant with her regime and has treatment and life goals in place for her future. Time spent discussing smoking cessation with patient: 3 to 10 minutes Status at Discharge Functional status at discharge: independent ambulation Overall status at discharge: patient is progressing back to baseline Time Spent with Patient Time attestation: Total time spent providing and/or coordinating discharge services: 40 Time spent: Greater than 30 minutes Discharge Plan Discharge Patient Disposition: Xfer Other Discharge Diagnosis: Schizoaffective Disorder Referrals: Therapist: Thu Greene ([facility]) [Other] - 05/09/22 10:00 am (Telehealth ) Psych Prescriber: Mikayla Harrington ([facility]) [Other] - 05/09/22 11:30 am (Telehealth ) Brianna Dunn MD [Physician] - 1 Week (WAITING [employer]ENT[employer]IVE BACK FOR APOINTMENT) Discharge Medications: New metronidazole 500 mg Tablet 500 mg PO Q12H Qty: 10 0RF Latuda 40 mg Tablet 120 mg PO BEDTIME Qty: 90 0RF sertraline 25 mg Tablet 25 mg PO DAILY Qty: 30 0RF Continued polyethylene glycol 3350 17 gram Powder In Packet 17 g PO DAILY Qty: 110 0RF sennosides-docusate sodium [Senna Plus] 8.6-50 mg Tablet 2 tab PO BEDTIME Qty: 60 0RF hydrocortisone 1 % Cream 1 appl topical BID PRN (Reason: skin breakdown between fingers) Qty: 1 0RF Protocol: Apply to: Apply to: affected areas between fingers lactase 3,000 unit Tablet 1 tab PO TIDWM Qty: 90 0RF multivitamin Tablet 1 tab PO DAILY Qty: 30 0RF nicotine (polacrilex) 2 mg gum 1 ea PO Q2H PRN (Reason: Nicotine Cravings) Qty: 60 0RF folic acid 400 mcg Tablet 0.4 mg PO DAILY Qty: 30 0RF diphenhydramine HCl [Banophen] 25 mg Tablet 25 mg PO DAILY PRN (Reason: DYSTONIA) Qty: 30 0RF Rx Instructions: MAY REPEAT IN 1/2 HOUR IF NEEDED albuterol sulfate [ProAir HFA] 90 mcg/actuation HFA aerosol inhaler 2 puff inhalation QID PRN (Reason: shortness of breath or wheezing) Qty: 1 0RF cholecalciferol (vitamin D3) [Vitamin D3] 25 mcg (1,000 unit) capsule 1 cap PO DAILY Qty: 30 0RF calcium carbonate-vitamin D3 250 mg-3.125 mcg (125 unit) Tablet 250 mg PO DAILY Qty: 30 0RF melatonin 5 mg tablet 10 mg PO BEDTIME Qty: 60 0RF Ensure High Protein Liquid 1 ea PO TID-QID PRN (Reason: nutritional supplementation) Qty: 5688 0RF olanzapine 2.5 mg Tablet 2.5 mg PO BEDTIME Qty: 30 0RF benztropine 1 mg Tablet 1 mg PO BID Qty: 60 0RF hydroxyzine pamoate 25 mg capsule 1 cap PO TID PRN (Reason: ANXIETY/SLEEP) Qty: 90 0RF Rx Instructions: 4 HOURS BETWEEN DOSES Discontinued Latuda 80 mg Tablet 80 mg PO BEDTIME Qty: 30 0RF Rx Instructions: must administer with food (at least 350 calories) No Action Latuda 120 mg tablet 120 mg PO BEDTIME Discharge Orders: Discharge Order (Routine); Ordered 05/02/22 Ordered By: Zee Washington Diet: Advance to usual diet Activity on Discharge: As tolerated Stand Alone Forms: Patient Portal Discharge page, Community Support Care Plan Goals: Maintain mood and safe behaviors Take medications as prescribed Practice coping skills Continue with out patient providers and reach out to them as needed Health Concerns: Stable mood and behaviors Plan of Treatment: Follow up with out patient providers as scheduled Take medications as prescribed Assessment: non suicidal non psychotic Discharge Date/Time: 05/02/22 11:12
== END 2022-05-02 11:12 | disposition other institution (70) | DRG 885 ==
LOC: HO.ED 16:02 → HO.PM5 17:09
PROVIDERS: Registered Nurse; Admitting Provider Psychiatry & Neurology Psychiatry; Emergency Provider Emergency Medicine; Visit Provider Clinical Nurse Specialist Psychiatric/Mental Health, Adult
DX: F25.1 Schizoaffective disorder, depressive type (principal); J45.909 Unspecified asthma, uncomplicated; F31.9 Bipolar disorder, unspecified; F17.210 Nicotine dependence, cigarettes, uncomplicated; Z20.822 Contact with and (suspected) exposure to COVID-19; Z91.14 Patient's other noncompliance with medication regimen; Z91.19 Patient's noncompliance with other medical treatment and regimen; Z71.6 Tobacco abuse counseling; Z88.8 Allergy status to other drugs, medicaments and biological substances; Z79.899 Other long term (current) drug therapy
CPT/HCPCS: 36415; 80048; 80061; 80076; 80307; 81025; 82607; 82746; 83036; 83735; 84439; 84443; 85025; 87635; 93005; 99285

== ENCOUNTER 2022-05-17 13:55 | Inpatient (IN) | payer OTHER, SELFPAY ==
[2022-05-17 14:20] VITALS: BP 106/69; PULSE 88; RESP 15; TEMP 37.3; O2SAT 97; BMI 25.0
--- NOTE | 2022-05-17 15:06 | ECG_ITS ---
Test Reason : crisis Blood Pressure : / mmHG Vent. Rate : 058 BPM Atrial Rate : 058 BPM P-R Int : 180 ms QRS Dur : 084 ms QT Int : 416 ms P-R-T Axes : 042 063 039 degrees QTc Int : 408 ms Sinus bradycardia Otherwise normal ECG When compared with ECG of 22-APR-2022 15:47, No significant change was found Referred By: Ailyn Montoya Electronically Signed By:NAZANIN REINOSO
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
[2022-05-17 15:22] LABS: MANUAL DIFF FLAG NO
[2022-05-17 15:26] LABS: Basophils Percent Auto 0.6 % (0-2); Eosinophils Absolute Auto 0.1 X10*3/uL (0.0-0.4); Eosinophils Percent Auto 2.2 % (0-4); Hematocrit 34.6 % (37.0-47.0); Hemoglobin 12.2 g/dl (12.0-16.0); Imm Gran Abs Auto 0.01 X10*3/uL (0.00-0.03); Imm Gran Pct Auto 0.2 % (0.0-0.4); Lymphocytes Absolute Auto 1.4 X10*3/uL (1.2-4.9); Lymphocytes Percent Auto 28.8 % (20-40); Mean Corpuscular HGB Conc 35.3 g/dl (31.0-35.0); Mean Corpuscular Hemoglobin 32.1 pg (27.0-33.0); Mean Corpuscular Volume 91.1 fL (80.0-98.0); Mean Platelet Volume 10.6 fL (9.4-12.3); Monocytes Absolute Auto 0.3 X10*3/uL (0.1-1.2); Monocytes Percent Auto 6.2 % (2-11); Neutrophils Absolute Auto 3.1 x10*3/uL (2.0-8.3); Platelet Count 200 X10*3/uL (160-400); Red Cell Distribution Width 11.8 % (11.0-16.0)
[2022-05-17 15:51] LABS: Acetaminophen LAB < 1 mcg/mL (<30); Alanine Aminotransferase 30 U/L (0-31); Albumin Level 4.6 g/dL (3.5-5.0); Alkaline Phosphatase 43 U/L (39-117); Anion Gap 15 (12-20); Aspartate Amino Transferase 20 U/L (5-31); Bilirubin Direct < 0.2 mg/dL (0.0-0.5); Bilirubin Total 0.2 mg/dL (0.0-1.0); Blood Urea Nitrogen 7 mg/dL (9-16); Calcium 9.4 mg/dL (8.4-10.2); Carbon Dioxide 25 mmol/L (22-29); Chloride 103 mmol/L (96-108); Estimated Glomerular Filt Rate > 60; Ethanol < 10 mg/dL; Glucose Random 97 mg/dL (60-115); Lipase 15 U/L (8-78); Magnesium 1.8 mg/dL (1.6-2.6); Potassium 4.4 mmol/L (3.3-5.1); Salicylate < 5.0 mg/dL (15-30); Sodium 139 mmol/L (135-145); Total Protein 6.8 g/dL (6.5-8.0)
[2022-05-17 16:11] LABS: COVID-19 Test Negative (Negative)
--- NOTE | 2022-05-17 16:47 | MHC.CARE ---
Seen by KAREN in the community and is a bedsearch
--- NOTE | 2022-05-17 18:25 | PHA.MEDREC ---
Pharmacy Consult ? Medication Reconciliation Pharmacy has completed the medication reconciliation. Medications verified with housing supervisor [facility]
[2022-05-17 18:30] LABS: Appearance Urine Clear; Color Urine Yellow; Glucose Urine UA Negative (Negative); Leukocyte Esterase Urine Negative (Negative); Nitrite Urine Negative (Negative); Specific Gravity - Urine <= 1.005 (1.005-1.025); UMIC TRIGGER UACC YES; Urine Blood Trace (Negative); Urine Ketones Negative (Negative); Urine Protein Negative (Neg-Trace)
[2022-05-17 18:31] VITALS: BP 101/68; PULSE 53; RESP 16; TEMP 36.6; O2SAT 98
[2022-05-17 18:31] LABS: UPreg QC Valid YES; Urine Pregnancy NEGATIVE (NEGATIVE)
[2022-05-17 18:35] LABS: Bacteria Urine None Seen (None Seen); Hyaline Casts Urine 0-2 /LPF (0-2); RBC Urine 0-2 /HPF (0-2); Squamous Epithelial Cell Urine 0-2 /HPF (0-2); WBC Urine 0-5 /HPF (0-5)
[2022-05-17 18:53] LABS: Amphetamine Screen Urine Not Detected (Not Detect); Barbiturates, Urine Not Detected (Not Detect); Benzodiazepines Screen Urine Not Detected (Not Detect); Cannabinoid Screen Urine POSITIVE (Not Detect); Cocaine Screen Urine Not Detected (Not Detect); Fentanyl, urine Not Detected (Not Detect); Opiate Screen Urine Not Detected (Not Detect); Phencyclidine Screen Urine Not Detected (Not Detect)
[2022-05-17] MEDS: Nicotine Polacrilex 2 MG GUM BUCCAL ×2 (19:54→23:16)
[2022-05-17 23:57] VITALS: BP 121/71; PULSE 68; RESP 18; O2SAT 96
[2022-05-18] MEDS: Nicotine Polacrilex 2 MG GUM BUCCAL ×5 (03:00→20:28)
[2022-05-18 08:08] VITALS: RESP 16
[2022-05-18 08:39] VITALS: BP 110/70; PULSE 68; RESP 14; O2SAT 98
[2022-05-18] MEDS: Benztropine Mesylate 1 MG TABLET PO ×2 (11:50→21:36)
[2022-05-18] MEDS: Sertraline HCL 25 MG TABLET PO (11:50)
[2022-05-18] MEDS: Multivitamin TABLET 1 TAB PO (11:50)
[2022-05-18] MEDS: Cholecalciferol (Vitamin D3) 25 MCG TABLET PO (11:50)
[2022-05-18] MEDS: hydrOXYzine HCL 25 MG TABLET PO (13:03)
[2022-05-18] MEDS: Lactase TABLET 1 TAB PO ×2 (13:04→18:40)
[2022-05-18 16:10] VITALS: BP 109/68; PULSE 64; RESP 16; TEMP 36.6; O2SAT 100
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
[2022-05-18 18:00] VITALS: BP 124/65; PULSE 70; RESP 16; TEMP 36.4; O2SAT 96
[2022-05-18] MEDS: Lurasidone HCl 40 MG TABLET 120 MG PO (21:35)
[2022-05-18] MEDS: Sennosides/Docusate Sodium TABLET 2 TAB PO (21:35)
[2022-05-18] MEDS: Melatonin 3 MG TABLET 6 MG PO (21:36)
[2022-05-18] MEDS: OLANZapine 2.5 MG TABLET PO (21:36)
[2022-05-19 09:12] VITALS: RESP 15
[2022-05-19] MEDS: Multivitamin TABLET 1 TAB PO (09:27)
[2022-05-19] MEDS: Cholecalciferol (Vitamin D3) 25 MCG TABLET PO (09:28)
[2022-05-19] MEDS: Benztropine Mesylate 1 MG TABLET PO ×2 (09:28→22:09)
[2022-05-19] MEDS: Lactase TABLET 1 TAB PO ×3 (09:28→17:07)
[2022-05-19] MEDS: Sertraline HCL 25 MG TABLET PO (09:28)
[2022-05-19] MEDS: Folic Acid 1 MG TABLET PO (09:28)
[2022-05-19 12:33] LABS: Alanine Aminotransferase 23 U/L (0-31); Albumin Level 4.5 g/dL (3.5-5.0); Alkaline Phosphatase 41 U/L (39-117); Anion Gap 16 (12-20); Aspartate Amino Transferase 15 U/L (5-31); Bilirubin Total 0.6 mg/dL (0.0-1.0); Blood Urea Nitrogen 10 mg/dL (9-16); Calcium 9.5 mg/dL (8.4-10.2); Carbon Dioxide 24 mmol/L (22-29); Chloride 103 mmol/L (96-108); Cholesterol 196 mg/dL; Creatinine Clr Calc Pharmacy 93.5; Estimated Glomerular Filt Rate > 60; Glucose Fasting 100 mg/dL (60-99); HDL Cholesterol 48 mg/dL; LDL Cholesterol Calculated 119 mg/dl; Potassium 4.5 mmol/L (3.3-5.1); Sodium 138 mmol/L (135-145); Total Protein 6.7 g/dL (6.5-8.0); Triglycerides 145 mg/dL
[2022-05-19] MEDS: Nicotine Polacrilex 2 MG GUM BUCCAL ×5 (12:54→22:16)
[2022-05-19 20:58] VITALS: BP 112/74; PULSE 77; RESP 16; TEMP 36.8; O2SAT 98
[2022-05-19] MEDS: OLANZapine 2.5 MG TABLET PO (22:08)
[2022-05-19] MEDS: Lurasidone HCl 40 MG TABLET 120 MG PO (22:08)
[2022-05-19] MEDS: Sennosides/Docusate Sodium TABLET 2 TAB PO (22:08)
[2022-05-19] MEDS: Melatonin 3 MG TABLET 6 MG PO (22:09)
[2022-05-20 09:30] VITALS: PULSE 83; RESP 18; TEMP 36.8; O2SAT 98
[2022-05-20] MEDS: Folic Acid 1 MG TABLET PO (10:20)
[2022-05-20] MEDS: Benztropine Mesylate 1 MG TABLET PO ×2 (10:20→21:52)
[2022-05-20] MEDS: Sertraline HCL 25 MG TABLET PO (10:28)
[2022-05-20] MEDS: Multivitamin TABLET 1 TAB PO (10:29)
[2022-05-20] MEDS: Lactase TABLET 1 TAB PO (10:29)
[2022-05-20] MEDS: Cholecalciferol (Vitamin D3) 25 MCG TABLET PO (10:30)
[2022-05-20] MEDS: Nicotine Polacrilex 2 MG GUM BUCCAL ×5 (12:26→20:15)
[2022-05-20 14:25] LABS: UPreg QC Valid YES; Urine Pregnancy NEGATIVE (NEGATIVE)
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
[2022-05-20 21:17] VITALS: BP 109/67; PULSE 69; RESP 16; TEMP 36.6; O2SAT 97
[2022-05-20] MEDS: Sennosides/Docusate Sodium TABLET 2 TAB PO (21:50)
[2022-05-20] MEDS: OLANZapine 5 MG TABLET PO (21:51)
[2022-05-20] MEDS: Melatonin 3 MG TABLET 6 MG PO (21:51)
[2022-05-20] MEDS: Lurasidone HCl 40 MG TABLET 120 MG PO (21:52)
[2022-05-21] MEDS: Multivitamin TABLET 1 TAB PO (09:46)
[2022-05-21] MEDS: Folic Acid 1 MG TABLET PO (09:46)
[2022-05-21] MEDS: Cholecalciferol (Vitamin D3) 25 MCG TABLET PO (09:46)
[2022-05-21] MEDS: Lactase TABLET 1 TAB PO ×3 (09:46→16:55)
[2022-05-21] MEDS: Benztropine Mesylate 1 MG TABLET PO ×2 (09:46→22:29)
[2022-05-21] MEDS: Nicotine Polacrilex 2 MG GUM BUCCAL ×6 (12:46→22:58)
--- NOTE | 2022-05-21 15:12 | P.PNPSI_ITS ---
Subjective Subjective Date of Service: 05/21/22 Reason For Visit: depression Interim History: seen in her room, roused from sleep for interview. somewhat irritable and labile. angry even to hear about lithium. feels it is a fait accompli that she will be started on the medication. explains rationale, pt seems more amenable to the idea knowing that either zyprexa or latuda would be DCed/tapered if lithium were started. agrees to discuss with her outpt provider after discharge. per staff, pleasant, quiet. slept well. eating well. no SI/HI/AVH. Mental Status Exam Mental Status Exam Narrative: appropriately dressed and groomed. initially no PMA/PMR, cooperative; later le ss cooperative and with agitated gestures. speech initially nml rate, amount, loudness, tone; later incr rate, loudness, decr latency. thoughts linear and logical. affect constricted, normo-intense, mod-labile. no SI/HI/AVH reported. Diagnostics Vital Signs (24Hr): Vital Signs - 24 hr 05/20/22 21:17 Temperature 97.9 F Pulse Rate 69 Respiratory Rate 16 Blood Pressure 109/67 Pulse Oximetry 97 Oxygen Delivery Method Room Air BMI result Body Mass Index 25.0 Labs Results: 05/17/22 15:17 05/19/22 12:07 Labs: Laboratory Results - last 48 hr 05/20/22 13:14 Urine Test NEGATIVE Medications Medications Current Medications Acetaminophen (Acetaminophen 325 Mg Tablet) 650 mg PO Q6H PRN PRN Reason: Headache/Pain Mild Scale (1-3) Al Hydroxide/Mg Hydroxide (Magnesium Hydrox/Alum Hydrox 30 Ml Oral.Susp) 30 ml PO Q6H PRN PRN Reason: Heartburn/Nausea Albuterol Sulfate (Albuterol Sulfate 90 Mcg 8 Gm Inhaler) 2 puff INHALE QID PRN PRN Reason: shortness of breath or wheezing Benztropine Mesylate (Benztropine Mesylate 1 Mg Tablet) 1 mg PO BID [facility] Last Admin: 05/21/22 09:46 Dose: 1 mg Diphenhydramine HCl (Diphenhydramine Hcl 25 Mg Tablet) 25 mg PO DAILY PRN PRN Reason: DYSTONIA Folic Acid (Folic Acid 1 Mg Tablet) 1 mg PO DAILY [facility] Last Admin: 05/21/22 09:46 Dose: 1 mg Hydrocortisone (Hydrocortisone 1 % Cream 28.35 Gm Tube) 1 appl TOPICAL BID PRN; Protocol PRN Reason: skin breakdown between fingers Hydroxyzine HCl (Hydroxyzine Hcl 25 Mg Tablet) 25 mg PO TID PRN PRN Reason: ANXIETY/SLEEP Last Admin: 05/18/22 13:03 Dose: 25 mg Lactase (Lactase Tablet) 1 tab PO TIDWM DUSTIN Last Admin: 05/21/22 11:23 Dose: 1 tab Lurasidone HCl (Lurasidone Hcl 40 Mg Tablet) 120 mg PO BEDTIME DUSTIN Last Admin: 05/20/22 21:52 Dose: 120 mg Melatonin (Melatonin 3 Mg Tablet) 6 mg PO BEDTIME [facility]IN Last Admin: 05/20/22 21:51 Dose: 6 mg Multivitamins/Vitamin C (Multivitamin Tablet) 1 tab PO DAILY DUSTIN Last Admin: 05/21/22 09:46 Dose: 1 tab Nicotine Polacrilex (Nicotine Polacrilex 2 Mg Gum) 2 mg BUCCAL Q2H PRN PRN Reason: Nicotine Cravings Last Admin: 05/21/22 14:47 Dose: 2 mg Olanzapine (Olanzapine 5 Mg Tablet) 5 mg PO BEDTIME DUSTIN Last Admin: 05/20/22 21:51 Dose: 5 mg Polyethylene Glycol (Polyethylene Glycol 3350 17 Gm Powd.Pack) 17 gm PO DAILY DUSTIN Last Admin: 05/21/22 09:46 Dose: Not Given Senna/Docusate Sodium (Sennosides/Docusate Sodium Tablet) 2 tab PO BEDTIME DUSTIN Last Admin: 05/20/22 21:50 Dose: 2 tab Vitamin D (Cholecalciferol (Vitamin D3) 25 Mcg Tablet) 25 mcg PO DAILY DUSTIN Last Admin: 05/21/22 09:46 Dose: 25 mcg Allergies Allergies Allergy/AdvReac Type Severity Reaction Status Date / Time aripiprazole [Abilify] Allergy Unknown tongue Verified 05/06/22 09:37 swells and gain weight risperidone [From Risperdal] AdvReac Unknown gain Verified 05/06/22 09:37 weight, and slurred speech cariprazine [From Vraylar] AdvReac Verified 05/06/22 09:37 haloperidol [From Haldol] AdvReac DYSTONIA Verified 05/06/22 09:37 paliperidone AdvReac dystonia Verified 05/06/22 09:37 trazodone AdvReac DYSTONIA Verified 05/06/22 09:37 Assessment & Plan Assessment & Plan (1) Schizoaffective disorder, bipolar type: Status: Acute Code(s): F25.0 - Schizoaffective disorder, bipolar type Plan 05/20: increased HS zyprexa from 2.5 mg to 5 mg at pt request. DCed zoloft as it may be inducing nela in pt not on a mood stabilizer. otherwise continued outpt plan. collateral from outpt prescriber indicates no trials on lithium or tegretol. lithium not tried due to substance use Hx, in particular alcohol and concern for lithium toxicity in uncontrolled alcohol use disorder. 05/21: pt educated about lithium and encouraged to try it. very resistant initially, more open to the idea when it was explained the lithium would be meant to replace either latuda or zyprexa. would like to discuss with outpt provider. I spent __20____ minutes with the patient and/or on the patient floor today, greater than?50% of which was spent counseling/coordinating care. Reason for contiued inpatient stay Substantial Risk for: inability to function and rapid decompensation
[2022-05-21] MEDS: OLANZapine 5 MG TABLET PO (22:27)
[2022-05-21] MEDS: Sennosides/Docusate Sodium TABLET 2 TAB PO (22:27)
[2022-05-21] MEDS: Melatonin 3 MG TABLET 6 MG PO (22:28)
[2022-05-21] MEDS: Lurasidone HCl 40 MG TABLET 120 MG PO (22:28)
[2022-05-21 22:32] VITALS: BP 111/62; PULSE 107; TEMP 36.4; O2SAT 95
[2022-05-22 07:00] VITALS: BMI 24.9
[2022-05-22] MEDS: Multivitamin TABLET 1 TAB PO (11:21)
[2022-05-22] MEDS: Benztropine Mesylate 1 MG TABLET PO ×2 (11:22→22:49)
[2022-05-22] MEDS: Cholecalciferol (Vitamin D3) 25 MCG TABLET PO (11:22)
[2022-05-22] MEDS: Folic Acid 1 MG TABLET PO (11:22)
[2022-05-22] MEDS: Nicotine Polacrilex 2 MG GUM BUCCAL ×6 (13:18→23:39)
[2022-05-22] MEDS: Lactase TABLET 1 TAB PO ×2 (13:18→17:59)
--- NOTE | 2022-05-22 14:41 | P.PNPSI_ITS ---
Subjective Subjective Date of Service: 05/22/22 Reason For Visit: depression Interim History: brief interview, pt states she does not feel like talking. stable, no change in presentation. denies psychotic Sx. states her mood is good. per staff, pleasant on 1:1. denies SI/HI/AVH. eating and sleeping. safe, slept through the night. Mental Status Exam Mental Status Exam Narrative: appropriately dressed and groomed. no PMA/PMR, cooperative. speech nml rate, amount, loudness, tone. thoughts linear and logical. mood good. affect constricted, normo-intense, non-labile. no SI/HI/AVH. Diagnostics Vital Signs (24Hr): Vital Signs - 24 hr 05/21/22 22:32 Temperature 97.6 F Pulse Rate 107 H Blood Pressure 111/62 Pulse Oximetry 95 Oxygen Delivery Method Room Air BMI result Body Mass Index 25.0 Labs Results: 05/17/22 15:17 05/19/22 12:07 Medications Medications Current Medications Acetaminophen (Acetaminophen 325 Mg Tablet) 650 mg PO Q6H PRN PRN Reason: Headache/Pain Mild Scale (1-3) Al Hydroxide/Mg Hydroxide (Magnesium Hydrox/Alum Hydrox 30 Ml Oral.Susp) 30 ml PO Q6H PRN PRN Reason: Heartburn/Nausea Albuterol Sulfate (Albuterol Sulfate 90 Mcg 8 Gm Inhaler) 2 puff INHALE QID PRN PRN Reason: shortness of breath or wheezing Benztropine Mesylate (Benztropine Mesylate 1 Mg Tablet) 1 mg PO BID [facility] Last Admin: 05/22/22 11:22 Dose: 1 mg Diphenhydramine HCl (Diphenhydramine Hcl 25 Mg Tablet) 25 mg PO DAILY PRN PRN Reason: DYSTONIA Folic Acid (Folic Acid 1 Mg Tablet) 1 mg PO DAILY [facility] Last Admin: 05/22/22 11:22 Dose: 1 mg Hydrocortisone (Hydrocortisone 1 % Cream 28.35 Gm Tube) 1 appl TOPICAL BID PRN; Protocol PRN Reason: skin breakdown between fingers Hydroxyzine HCl (Hydroxyzine Hcl 25 Mg Tablet) 25 mg PO TID PRN PRN Reason: ANXIETY/SLEEP Last Admin: 05/18/22 13:03 Dose: 25 mg Lactase (Lactase Tablet) 1 tab PO TIDWM [facility] Last Admin: 05/22/22 13:18 Dose: 1 tab Lurasidone HCl (Lurasidone Hcl 40 Mg Tablet) 120 mg PO BEDTIME [facility] Last Admin: 05/21/22 22:28 Dose: 120 mg Melatonin (Melatonin 3 Mg Tablet) 6 mg PO BEDTIME [facility] Last Admin: 05/21/22 22:28 Dose: 6 mg Multivitamins/Vitamin C (Multivitamin Tablet) 1 tab PO DAILY [facility] Last Admin: 05/22/22 11:21 Dose: 1 tab Nicotine Polacrilex (Nicotine Polacrilex 2 Mg Gum) 2 mg BUCCAL Q2H PRN PRN Reason: Nicotine Cravings Last Admin: 05/22/22 13:18 Dose: 2 mg Olanzapine (Olanzapine 5 Mg Tablet) 5 mg PO BEDTIME [facility] Last Admin: 05/21/22 22:27 Dose: 5 mg Polyethylene Glycol (Polyethylene Glycol 3350 17 Gm Powd.Pack) 17 gm PO DAILY [facility]IN Last Admin: 05/22/22 11:22 Dose: Not Given Senna/Docusate Sodium (Sennosides/Docusate Sodium Tablet) 2 tab PO BEDTIME [facility]IN Last Admin: 05/21/22 22:27 Dose: 2 tab Vitamin D (Cholecalciferol (Vitamin D3) 25 Mcg Tablet) 25 mcg PO DAILY [facility]IN Last Admin: 05/22/22 11:22 Dose: 25 mcg Allergies Allergies Allergy/AdvReac Type Severity Reaction Status Date / Time aripiprazole [Abilify] Allergy Unknown tongue Verified 05/06/22 09:37 swells and gain weight risperidone [From Risperdal] AdvReac Unknown gain Verified 05/06/22 09:37 weight, and slurred speech cariprazine [From Vraylar] AdvReac Verified 05/06/22 09:37 haloperidol [From Haldol] AdvReac DYSTONIA Verified 05/06/22 09:37 paliperidone AdvReac dystonia Verified 05/06/22 09:37 trazodone AdvReac DYSTONIA Verified 05/06/22 09:37 Assessment & Plan Assessment & Plan (1) Schizoaffective disorder, bipolar type: Status: Acute Code(s): F25.0 - Schizoaffective disorder, bipolar type Plan 05/20: increased HS zyprexa from 2.5 mg to 5 mg at pt request. DCed zoloft as it may be inducing nela in pt not on a mood stabilizer. otherwise continued outpt plan. collateral from outpt prescriber indicates no trials on lithium or tegretol. lithium not tried due to substance use Hx, in particular alcohol and concern for lithium toxicity in uncontrolled alcohol use disorder. 05/21: pt educated about lithium and encouraged to try it. very resistant initially, more open to the idea when it was explained the lithium would be meant to replace either latuda or zyprexa. would like to discuss with outpt provider. 05/22: stable, no change in mgmt. discharging tomorrow. I spent ___15___ minutes with the patient and/or on the patient floor today, greater than?50% of which was spent counseling/coordinating care. Reason for contiued inpatient stay Substantial Risk for: inability to function and rapid decompensation
[2022-05-22 22:45] VITALS: BP 116/72; PULSE 79; RESP 18; TEMP 36.7; O2SAT 99
[2022-05-22] MEDS: Lurasidone HCl 40 MG TABLET 120 MG PO (22:48)
[2022-05-22] MEDS: Melatonin 3 MG TABLET 6 MG PO (22:48)
[2022-05-22] MEDS: Sennosides/Docusate Sodium TABLET 2 TAB PO (22:48)
[2022-05-22] MEDS: OLANZapine 5 MG TABLET PO (22:49)
[2022-05-22] MEDS: hydrOXYzine HCL 25 MG TABLET PO (22:49)
[2022-05-23] MEDS: Multivitamin TABLET 1 TAB PO (09:10)
[2022-05-23] MEDS: Cholecalciferol (Vitamin D3) 25 MCG TABLET PO (09:10)
[2022-05-23] MEDS: Benztropine Mesylate 1 MG TABLET PO (09:10)
[2022-05-23] MEDS: Folic Acid 1 MG TABLET PO (09:11)
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
== END 2022-05-23 11:03 | disposition home or self-care (01) | DRG 885 ==
LOC: HO.ED 05-18 10:50 → HO.PADLT16 05-18 15:01 → HO.PM5 05-19 16:57 → HO.PADLT16 05-19 19:09
PROVIDERS: Physician Assistant; Admitting Provider Psychiatry & Neurology Psychiatry; Emergency Provider Emergency Medicine; PCP Internal Medicine; Visit Provider Psychiatry & Neurology Psychiatry
DX: F25.0 Schizoaffective disorder, bipolar type (principal); F12.20 Cannabis dependence, uncomplicated; F14.10 Cocaine abuse, uncomplicated; J45.909 Unspecified asthma, uncomplicated; F17.210 Nicotine dependence, cigarettes, uncomplicated; Z71.6 Tobacco abuse counseling; Z56.0 Unemployment, unspecified; Z20.822 Contact with and (suspected) exposure to COVID-19; Z79.899 Other long term (current) drug therapy
CPT/HCPCS: 36415; 80048; 80053; 80061; 80076; 80143; 80179; 80307; 81001; 81025; 82077; 83690; 83735; 85025; 87635; 93005; 99285

== ENCOUNTER 2022-07-02 23:47 | Emergency (ER) | payer OTHER, MEDICARE, MEDICAID, SELFPAY ==
--- NOTE | ~2022-07-02 | CT_ITS ---
EXAMINATION: CT HEAD WITHOUT CONTRAST CLINICAL INFORMATION: Headache. COMPARISON: MR brain 03/27/2021. TECHNIQUE: Contiguous axial imaging was performed from the skull base to vertex without intravenous administration of contrast. This CT examination was performed using dose optimization techniques as appropriate, variously including the following: *Automated exposure control *Adjustment of mA and/or kV according to patient size (this includes techniques or standardized protocols for targeted exams where dose is matched to indication/reason for exam; i.e. extremities or head) *Use of iterative reconstruction technique DLP: 696 mGy-cm FINDINGS: There is no evidence of acute intracranial hemorrhage or edematous territorial infarction. There is no abnormal attenuation within the brain parenchyma. Galan-white matter differentiation is preserved. The ventricles are normal in size and configuration. No evidence for obstructive hydrocephalus. No abnormal mass effect or midline shift. No extra-axial fluid collections. No acute soft tissue or osseous abnormalities. The mastoid air cells and paranasal sinuses are clear. CT/CT head/brain wo IV con IMPRESSION: No evidence of acute intracranial hemorrhage or edematous territorial infarction.
[2022-07-02 23:52] VITALS: BP 107/73; PULSE 85; O2SAT 99
[2022-07-02 23:57] VITALS: BP 95/66; PULSE 77; RESP 18; TEMP 36.1; O2SAT 99; BMI 25.7
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
[2022-07-03 01:38] LABS: MANUAL DIFF FLAG NO
[2022-07-03 01:41] LABS: Basophils Percent Auto 0.5 % (0-2); Eosinophils Absolute Auto 0.1 X10*3/uL (0.0-0.4); Eosinophils Percent Auto 0.8 % (0-4); Hematocrit 34.4 % (37.0-47.0); Hemoglobin 12.2 g/dl (12.0-16.0); Imm Gran Abs Auto 0.01 X10*3/uL (0.00-0.03); Imm Gran Pct Auto 0.1 % (0.0-0.4); Lymphocytes Absolute Auto 1.9 X10*3/uL (1.2-4.9); Lymphocytes Percent Auto 22.9 % (20-40); Mean Corpuscular HGB Conc 35.5 g/dl (31.0-35.0); Mean Corpuscular Hemoglobin 31.9 pg (27.0-33.0); Mean Corpuscular Volume 90.1 fL (80.0-98.0); Mean Platelet Volume 10.8 fL (9.4-12.3); Monocytes Absolute Auto 0.5 X10*3/uL (0.1-1.2); Monocytes Percent Auto 5.8 % (2-11); Neutrophils Absolute Auto 5.9 x10*3/uL (2.0-8.3); Neutrophils Percent Auto 69.9 % (45-73); Platelet Count 192 X10*3/uL (160-400); Red Blood Count 3.82 X10*6/uL (4.20-5.50); Red Cell Distribution Width 11.1 % (11.0-16.0); White Blood Count 8.5 X10*3/uL (4.8-10.8)
[2022-07-03 02:00] VITALS: BP 124/70; PULSE 61; TEMP 37.3; O2SAT 100
[2022-07-03 02:02] LABS: Anion Gap 12 (12-20); Blood Urea Nitrogen 10 mg/dL (9-16); Calcium 9.2 mg/dL (8.4-10.2); Carbon Dioxide 27 mmol/L (22-29); Chloride 106 mmol/L (96-108); Estimated Glomerular Filt Rate > 60; Glucose Random 97 mg/dL (60-115); Magnesium 1.6 mg/dL (1.6-2.6); Potassium 3.8 mmol/L (3.3-5.1); Sodium 141 mmol/L (135-145)
[2022-07-03 02:08] LABS: Appearance Urine Clear; Color Urine Yellow; Glucose Urine UA Negative (Negative); Leukocyte Esterase Urine Negative (Negative); Nitrite Urine Negative (Negative); PH 6.5 (5.0-9.0); Urine Blood Negative (Negative); Urine Ketones Negative (Negative); Urine Protein Negative (Neg-Trace)
[2022-07-03 02:11] LABS: UPreg QC Valid YES; Urine Pregnancy NEGATIVE (NEGATIVE)
== END 2022-07-03 03:40 | disposition home or self-care (01) ==
PROVIDERS: Emergency Provider Emergency Medicine; PCP Internal Medicine
DX: R51.9 Headache, unspecified (principal); R53.1 Weakness; F17.210 Nicotine dependence, cigarettes, uncomplicated; F25.0 Schizoaffective disorder, bipolar type; F12.20 Cannabis dependence, uncomplicated; F14.10 Cocaine abuse, uncomplicated; Z79.899 Other long term (current) drug therapy
CPT/HCPCS: 36415; 70450; 80048; 81003; 81025; 83735; 85025; 99284

== ENCOUNTER 2022-07-25 13:32 | Emergency (ER) | payer OTHER, MEDICARE, MEDICAID, SELFPAY ==
[2022-07-25 13:40] VITALS: BP 126/63; BP 132/91; PULSE 115; PULSE 80; RESP 18; TEMP 36.9; O2SAT 98; O2SAT 99; BMI 23.8
--- NOTE | 2022-07-25 13:55 | PC.NURSE ---
Permission given to update mother on status.
[2022-07-25 14:59] LABS: Appearance Urine Clear; Color Urine Yellow; Glucose Urine UA Negative (Negative); Leukocyte Esterase Urine Negative (Negative); Nitrite Urine Negative (Negative); PH 5.5 (5.0-9.0); Specific Gravity - Urine <= 1.005 (1.005-1.025); Urine Blood Negative (Negative); Urine Ketones Negative (Negative); Urine Protein Negative (Neg-Trace)
[2022-07-25 15:00] LABS: UPreg QC Valid YES; Urine Pregnancy NEGATIVE (NEGATIVE)
[2022-07-25 15:11] LABS: COVID-19 Test Negative (Negative); IDNOW Serial# BCCEAD1C
[2022-07-25 15:32] LABS: MANUAL DIFF FLAG NO
[2022-07-25 15:33] LABS: Basophils Percent Auto 0.4 % (0-2); Eosinophils Percent Auto 0.2 % (0-4); Hematocrit 34.8 % (37.0-47.0); Hemoglobin 12.4 g/dl (12.0-16.0); Imm Gran Abs Auto 0.01 X10*3/uL (0.00-0.03); Imm Gran Pct Auto 0.2 % (0.0-0.4); Lymphocytes Absolute Auto 1.5 X10*3/uL (1.2-4.9); Lymphocytes Percent Auto 29.1 % (20-40); Mean Corpuscular HGB Conc 35.6 g/dl (31.0-35.0); Mean Corpuscular Hemoglobin 31.4 pg (27.0-33.0); Mean Corpuscular Volume 88.1 fL (80.0-98.0); Mean Platelet Volume 10.5 fL (9.4-12.3); Monocytes Absolute Auto 0.2 X10*3/uL (0.1-1.2); Monocytes Percent Auto 3.9 % (2-11); Neutrophils Absolute Auto 3.4 x10*3/uL (2.0-8.3); Neutrophils Percent Auto 66.2 % (45-73); Platelet Count 224 X10*3/uL (160-400); Red Blood Count 3.95 X10*6/uL (4.20-5.50); Red Cell Distribution Width 11.4 % (11.0-16.0); White Blood Count 5.1 X10*3/uL (4.8-10.8)
[2022-07-25 15:43] LABS: Amphetamine Screen Urine Not Detected (Not Detect); Barbiturates, Urine Not Detected (Not Detect); Benzodiazepines Screen Urine Not Detected (Not Detect); Cannabinoid Screen Urine Not Detected (Not Detect); Cocaine Screen Urine Not Detected (Not Detect); Opiate Screen Urine Not Detected (Not Detect); Phencyclidine Screen Urine Not Detected (Not Detect)
[2022-07-25 15:57] LABS: Alanine Aminotransferase 17 U/L (0-31); Albumin Level 4.6 g/dL (3.5-5.0); Alkaline Phosphatase 47 U/L (39-117); Anion Gap 10 (12-20); Aspartate Amino Transferase 14 U/L (5-31); Bilirubin Direct < 0.2 mg/dL (0.0-0.5); Bilirubin Total 0.3 mg/dL (0.0-1.0); Blood Urea Nitrogen 7 mg/dL (9-16); Calcium 9.4 mg/dL (8.4-10.2); Carbon Dioxide 30 mmol/L (22-29); Chloride 103 mmol/L (96-108); Creatinine Clr Calc Pharmacy 85.8; Estimated Glomerular Filt Rate > 60; Ethanol 108 mg/dL; Glucose Random 74 mg/dL (60-115); Lipase 17 U/L (8-78); Potassium 3.8 mmol/L (3.3-5.1); Sodium 139 mmol/L (135-145); Total Protein 6.9 g/dL (6.5-8.0)
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
--- NOTE | 2022-07-25 17:10 | MHC.RECOVSUP ---
? Reason for consult Recovery support o Current location: [facility] o Identified substance use concern: Alcohol - Support ? Intervention: o Community resources provided o Harm reduction discussion ? Plan: o Patient to follow up with [facility] after discharge ? Additional information: Met with Patient and we talk about recovery and harm reduction..
[2022-07-25] MEDS: Nicotine Polacrilex 2 MG GUM BUCCAL (17:11)
== END 2022-07-25 17:44 | disposition home or self-care (01) ==
PROVIDERS: Emergency Provider Emergency Medicine Emergency Medical Services; PCP Internal Medicine
DX: F10.129 Alcohol abuse with intoxication, unspecified (principal); Y90.5 Blood alcohol level of 100-119 mg/100 ml; F17.210 Nicotine dependence, cigarettes, uncomplicated; Z20.822 Contact with and (suspected) exposure to COVID-19; Z71.6 Tobacco abuse counseling; Z79.899 Other long term (current) drug therapy
CPT/HCPCS: 36415; 80053; 80307; 81003; 81025; 82077; 82248; 83690; 85025; 87635; 99284

== ENCOUNTER 2022-08-17 16:57 | Emergency (ER) | payer OTHER, MEDICARE, MEDICAID, SELFPAY ==
[2022-08-17 17:08] VITALS: BP 124/66; BP 139/88; PULSE 85; PULSE 86; RESP 20; TEMP 36.9; O2SAT 96; O2SAT 99; BMI 26.5
--- NOTE | 2022-08-17 18:11 | PC.NURSE ---
patient a&ox3, medicated for 06/02 rt ear pain and abx given per order, will continue to monitor
--- NOTE | 2022-08-17 18:15 | PC.NURSE ---
nasal and throat swab performed, urine obtained, will continue to monitor
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
[2022-08-17 18:28] LABS: Appearance Urine Clear; Color Urine Yellow; Glucose Urine UA Negative (Negative); Leukocyte Esterase Urine Negative (Negative); Nitrite Urine Negative (Negative); Specific Gravity - Urine 1.015 (1.005-1.025); Urine Blood Negative (Negative); Urine Ketones Negative (Negative); Urine Protein Negative (Neg-Trace)
[2022-08-17 18:36] LABS: Strep A Nucleic Acid Negative (Negative)
[2022-08-17 18:40] LABS: Amphetamine Screen Urine Not Detected (Not Detect); Barbiturates, Urine Not Detected (Not Detect); Benzodiazepines Screen Urine Not Detected (Not Detect); Cannabinoid Screen Urine Not Detected (Not Detect); Cocaine Screen Urine Not Detected (Not Detect); Fentanyl, urine Not Detected (Not Detect); Opiate Screen Urine Not Detected (Not Detect); Phencyclidine Screen Urine Not Detected (Not Detect)
[2022-08-17 19:04] LABS: Influenza A PCR NEGATIVE (Negative); Influenza B PCR NEGATIVE (Negative); Resp Syncy Virus RNA Qual PCR NEGATIVE (Negative); SARS COV2 PCR INHOUSE NEGATIVE (Negative)
== END 2022-08-17 19:32 ==
PROVIDERS: Physician Assistant; Emergency Provider Internal Medicine
DX: H66.91 Otitis media, unspecified, right ear (principal); J02.9 Acute pharyngitis, unspecified; Z20.822 Contact with and (suspected) exposure to COVID-19; Z79.899 Other long term (current) drug therapy
CPT/HCPCS: 0241U; 80307; 81003; 87651; 99283

== ENCOUNTER 2022-08-18 05:44 | Emergency (ER) | payer OTHER, MEDICARE, MEDICAID, SELFPAY ==
[2022-08-18 05:53] VITALS: BP 110/69; BP 127/87; PULSE 72; PULSE 89; RESP 16; TEMP 36.8; O2SAT 98; O2SAT 99; BMI 26.5
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
== END 2022-08-18 06:28 | disposition home or self-care (01) ==
PROVIDERS: Emergency Provider Emergency Medicine; PCP Internal Medicine
DX: H66.91 Otitis media, unspecified, right ear (principal); H92.02 Otalgia, left ear; F12.20 Cannabis dependence, uncomplicated; F14.10 Cocaine abuse, uncomplicated; F25.0 Schizoaffective disorder, bipolar type; F17.210 Nicotine dependence, cigarettes, uncomplicated; Z79.899 Other long term (current) drug therapy
CPT/HCPCS: 99282; 99283

== ENCOUNTER 2022-09-27 09:44 | Inpatient (IN) | payer OTHER, MEDICARE, MEDICAID, SELFPAY ==
[2022-09-27 09:55] VITALS: BP 138/82; PULSE 108; RESP 16; TEMP 36.9; O2SAT 98; BMI 24.7
[2022-09-27 10:29] LABS: MANUAL DIFF FLAG NO
[2022-09-27 10:33] LABS: Basophils Percent Auto 0.5 % (0-2); Eosinophils Absolute Auto 0.1 X10*3/uL (0.0-0.4); Eosinophils Percent Auto 0.7 % (0-4); Hematocrit 38.9 % (37.0-47.0); Hemoglobin 13.6 g/dl (12.0-16.0); Imm Gran Abs Auto 0.02 X10*3/uL (0.00-0.03); Imm Gran Pct Auto 0.3 % (0.0-0.4); Lymphocytes Absolute Auto 1.6 X10*3/uL (1.2-4.9); Lymphocytes Percent Auto 21.5 % (20-40); Mean Corpuscular Hemoglobin 30.7 pg (27.0-33.0); Mean Corpuscular Volume 87.8 fL (80.0-98.0); Mean Platelet Volume 10.4 fL (9.4-12.3); Monocytes Absolute Auto 0.5 X10*3/uL (0.1-1.2); Monocytes Percent Auto 6.8 % (2-11); Neutrophils Absolute Auto 5.2 x10*3/uL (2.0-8.3); Neutrophils Percent Auto 70.2 % (45-73); Platelet Count 252 X10*3/uL (160-400); Red Blood Count 4.43 X10*6/uL (4.20-5.50); Red Cell Distribution Width 11.5 % (11.0-16.0); White Blood Count 7.4 X10*3/uL (4.8-10.8)
[2022-09-27 10:34] LABS: Appearance Urine Clear; Color Urine Dark Yellow; Glucose Urine UA Negative (Negative); Leukocyte Esterase Urine Negative (Negative); Nitrite Urine Negative (Negative); Specific Gravity - Urine 1.015 (1.005-1.025); UMIC TRIGGER UACC YES; Urine Blood Moderate (2+) (Negative); Urine Ketones Negative (Negative); Urine Protein 30 (1+) mg/dL (Neg-Trace)
[2022-09-27 10:36] LABS: UPreg QC Valid YES; Urine Pregnancy NEGATIVE (NEGATIVE)
[2022-09-27 10:39] LABS: Bacteria Urine None Seen (None Seen); Hyaline Casts Urine 0-2 /LPF (0-2); Squamous Epithelial Cell Urine 0-2 /HPF (0-2); WBC Urine 0-5 /HPF (0-5)
[2022-09-27 10:45] LABS: COVID-19 Test Negative (Negative); IDNOW Serial# 16C4AD1C
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
[2022-09-27 11:11] LABS: Amphetamine Screen Urine Not Detected (Not Detect); Barbiturates, Urine Not Detected (Not Detect); Benzodiazepines Screen Urine Not Detected (Not Detect); Cannabinoid Screen Urine Not Detected (Not Detect); Cocaine Screen Urine Not Detected (Not Detect); Fentanyl, urine Not Detected (Not Detect); Opiate Screen Urine Not Detected (Not Detect); Phencyclidine Screen Urine Not Detected (Not Detect)
[2022-09-27 11:36] LABS: Ethanol < 10 mg/dL
[2022-09-27 11:37] LABS: Alanine Aminotransferase 14 U/L (0-31); Albumin Level 4.9 g/dL (3.5-5.0); Alkaline Phosphatase 58 U/L (39-117); Anion Gap 13 (12-20); Aspartate Amino Transferase 12 U/L (5-31); Bilirubin Direct 0.2 mg/dL (0.0-0.5); Blood Urea Nitrogen 9 mg/dL (9-16); Calcium 9.8 mg/dL (8.4-10.2); Carbon Dioxide 26 mmol/L (22-29); Chloride 101 mmol/L (96-108); Creatinine Clr Calc Pharmacy 85.1; Estimated Glomerular Filt Rate > 60; Glucose Random 113 mg/dL (60-115); Lipase 12 U/L (8-78); Potassium 3.9 mmol/L (3.3-5.1); Sodium 136 mmol/L (135-145); Total Protein 7.2 g/dL (6.5-8.0)
[2022-09-27 12:00] VITALS: RESP 18
[2022-09-27 12:17] LABS: Bilirubin Total 0.7 mg/dL (0.0-1.0)
[2022-09-27 14:00] VITALS: RESP 18
--- NOTE | 2022-09-27 14:51 | MHC.CARE ---
CARE Team exhausted bedsearch for pt.
[2022-09-27 16:00] VITALS: RESP 18
--- NOTE | 2022-09-27 17:06 | PC.NURSE ---
Preliminary med rec completed by myself and patient. Per pt: she had no changes in medication since last stay. PA aware.
--- NOTE | 2022-09-27 18:08 | PHA.MEDREC ---
Pharmacy Consult ? Medication Reconciliation Pharmacy has completed the medication reconciliation.
[2022-09-27] MEDS: OLANZapine 2.5 MG TABLET PO (20:26)
[2022-09-27] MEDS: Lurasidone HCl 80 MG TABLET PO (20:26)
[2022-09-27] MEDS: Benztropine Mesylate 1 MG TABLET PO (20:26)
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
[2022-09-28 06:35] VITALS: BP 92/52; PULSE 55; RESP 16; TEMP 36.8; O2SAT 97
[2022-09-28] MEDS: Sertraline HCL 50 MG TABLET PO (08:24)
[2022-09-28] MEDS: Benztropine Mesylate 1 MG TABLET PO ×3 (08:24→20:34)
--- NOTE | 2022-09-28 12:06 | PC.NURSE ---
Pt requesting access to bag for tampon. Sanitary napkin offered.
[2022-09-28 13:06] VITALS: BP 109/76; PULSE 74; RESP 16; TEMP 36.6; O2SAT 99
[2022-09-28] MEDS: Nicotine Polacrilex 2 MG GUM BUCCAL ×3 (13:25→20:34)
[2022-09-28 15:00] VITALS: RESP 18
[2022-09-28] MEDS: hydrOXYzine HCL 10 MG TABLET PO (15:36)
--- NOTE | 2022-09-28 17:54 | MHC.CARE ---
CARE Team exhausted bedsearch for pt.
[2022-09-28] MEDS: OLANZapine 2.5 MG TABLET PO (20:34)
--- NOTE | 2022-09-28 20:43 | PC.NURSE ---
Assumed care of pt. at 1900. Pt. in room at that time. Pt. out of room requesting tea, which was provided to pt. Pt. requesting night time medications and PRN nicorette gum. Administered all except for latuda as it is unavailable in pod or main ed pyxis. Called pharmacy to request medication. They will bring down.
[2022-09-28] MEDS: Lurasidone HCl 80 MG TABLET PO (21:33)
--- NOTE | 2022-09-29 | ECG_ITS ---
Test Reason : antipsychotics Blood Pressure : / mmHG Vent. Rate : 068 BPM Atrial Rate : 068 BPM P-R Int : 150 ms QRS Dur : 084 ms QT Int : 398 ms P-R-T Axes : 000 112 138 degrees QTc Int : 423 ms Suspect limb lead reversal, interpretation assumes no reversal Normal sinus rhythm Lateral infarct , age undetermined Abnormal ECG Please repeat the EKG Referred By: Dion Ochoa Electronically Signed By:SWATI MURRAY MD
[2022-09-29 04:02] VITALS: BP 118/73; PULSE 86; RESP 17; TEMP 36.2; O2SAT 97
--- NOTE | 2022-09-29 06:20 | PC.NURSE ---
Pt. slept through the night. Compliant with medications. VSS. No issues to report. Will continue to monitor.
[2022-09-29] MEDS: Sertraline HCL 50 MG TABLET PO (09:16)
[2022-09-29] MEDS: Benztropine Mesylate 1 MG TABLET PO ×3 (09:16→18:47)
[2022-09-29] MEDS: Nicotine Polacrilex 2 MG GUM BUCCAL ×4 (10:16→18:48)
--- NOTE | 2022-09-29 12:50 | PC.NURSE ---
Pt has been calm and cooperative all morning
[2022-09-29 17:18] VITALS: BP 114/82; PULSE 74; RESP 16; TEMP 37; O2SAT 98
--- NOTE | 2022-09-29 18:40 | PC.ADMIT ---
pt is a 22 year old female who present to [facility] ED with SI, increased anxiety and self harming behavior. pt has a PMH of inpatient psych visits, substance abuse, self injurious behavior and eating disorders. during admission, pt seems deppressed and starts laughing to herself. pt is reacting to internal stimuli. pt ordered a salad, but seems to be laughing and not eating it. start treatment plan and promote safety.
[2022-09-29] MEDS: OLANZapine 2.5 MG TABLET PO (18:47)
[2022-09-29] MEDS: Lurasidone HCl 80 MG TABLET PO (18:47)
[2022-09-30 06:00] VITALS: BP 116/81; PULSE 72; RESP 18
[2022-09-30] MEDS: lamoTRIgine 100 MG TABLET PO (08:17)
[2022-09-30] MEDS: Sertraline HCL 50 MG TABLET PO (08:17)
[2022-09-30] MEDS: Benztropine Mesylate 1 MG TABLET PO ×3 (08:17→20:06)
[2022-09-30 09:12] LABS: Estimated Average Glucose 91 mg/dL; Hemoglobin A1c % 4.8 %
[2022-09-30] MEDS: Nicotine Polacrilex 2 MG GUM BUCCAL ×3 (09:31→20:06)
[2022-09-30 09:44] LABS: Cholesterol 180 mg/dL; HDL Cholesterol 40 mg/dL; LDL Cholesterol Calculated 124 mg/dl; Magnesium 2.1 mg/dL (1.6-2.6); Triglycerides 80 mg/dL
[2022-09-30 10:17] LABS: Folate 15.3 ng/mL (> or = 4.0); Free T4 (Free Thyroxine) 0.96 ng/dL (0.71-1.85); Thyroid Stimulating Hormone 0.54 uIU/mL (0.32-4.0); Vitamin B12 521 pg/mL (200-900)
[2022-09-30] MEDS: hydrOXYzine HCL 25 MG TABLET PO ×2 (11:03→20:06)
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
[2022-09-30 18:00] VITALS: BP 106/66; PULSE 67; RESP 16; TEMP 36.5; O2SAT 99
[2022-09-30] MEDS: OLANZapine 2.5 MG TABLET PO (20:06)
[2022-09-30] MEDS: Lurasidone HCl 80 MG TABLET PO (20:06)
[2022-10-01 06:00] VITALS: BP 115/56; PULSE 63; RESP 16
[2022-10-01] MEDS: Sertraline HCL 25 MG TABLET 75 MG PO (08:09)
[2022-10-01] MEDS: lamoTRIgine 100 MG TABLET PO (08:09)
[2022-10-01] MEDS: Benztropine Mesylate 1 MG TABLET PO ×3 (08:09→20:22)
[2022-10-01] MEDS: Nicotine Polacrilex 2 MG GUM BUCCAL ×3 (10:12→18:41)
--- NOTE | 2022-10-01 14:24 | MHC.CLN ---
RE: CONSULT FOR POOR PO HT 63 WT 140# IBW 115#+/-10% PT IS 121% IBW INDICATES OBESE FOR HT BMI 24.7 CURRENT WT 63.5KG PREVIOUS HX 58.7KG (03/27/22) PT WITH 8% NONSIGNIFICANT WT GAIN X 6 MONTHS PT APPEARS TO BE WITHIN UBW RANGE ENN: 1600KCALS, 64G PROTEIN REVIEWED LABS-WNL UNREMARKABLE DIET RX: REGULAR SAFETY TRAY NO CAFFEINE-APPROPRIATE PT WITH HX EATING DISORDER ENCOURAGE PO INTAKE MONITOR PO CLOSELY IF PO INTAKE POOR <25% X 3 DAYS; RECOMMEND OFFERING ENSURE PLUS HIGH PROTEIN POURED INTO A CUP BID CAN ADD MAGIC CUP IF PT IS WILLING TO TRIAL WEEKLY WEIGHTS
[2022-10-01 17:15] VITALS: BP 116/63; PULSE 79; O2SAT 99
--- NOTE | 2022-10-01 17:21 | HO.PSYCHPN ---
Subjective Subjective Date of Service: 10/01/22 Reason For Visit: Schizoaffective disorder Subjective Notes: Conditional Voluntary Healthcare Proxy: No Guardianship: No Medical Problems Affecting Mental Status: No Interim History: Pt tolerating increase of Sertraline. Reports sx of anxiety, poor focus, poor concentration. Discussed increasing Latuda which she is willing to do Asks for breast exam by OB. Met with pt, mom (pt's guardian) and Isabella OSPINA later in the day. Auditory perceptual alterations are the issue. They do not stop and have great effect upon pt. Pt reports throughout all of her treatment at [facility] and OP, voices have never stopped, even though she at times has told us they have to move ahead in her plan. Discussed Clozaril trial-both agree. Application sent to [facility]. Medication Compliance: Yes Side effects from medications: No Attending Groups: Intermittent Review of Systems Acute medical concerns: No Medical Review of Systems: unchanged Mental Status Exam Mental Status Exam Patient Appearance: Appropriate Patient Orientation: Person, Place, Time and Situation Level of Consciousness: Alert Patient Behavior: Talkative and Good Eye Contact Mood Description: Constricted Affect Description: Flat Patient Cognition Impaired: No Ability to Follow Directions: Good Speech Pattern: Spontaneous Speech Memory Description: Intact Hallucinations: Auditory Delusions: Paranoid Ideation Perceptual Disturbances: Depersonalization and Derealization Thought Process: Rumination and Goal Oriented Thought Content: positive for Circumstantial and positive for Perseveration Depressive Symptoms: Increased Anxiety, Loss of Int. in Activity, Feelings of Worthlessness, Isolating-Friends/Family, Feelings of Guilt, Unhappiness, Increased Fatigue, Low Self Esteem, Loss of Energy and Difficulty Concentrating Judgement: Fair Diagnostics Vital Signs (24Hr): Vital Signs - 24 hr 09/30/22 18:00 10/01/22 06:00 Temperature 97.7 F Pulse Rate 67 63 Respiratory Rate 16 16 Blood Pressure 106/66 115/56 L Pulse Oximetry 99 Oxygen Delivery Method Room Air Room Air BMI result Body Mass Index 24.7 Labs 09/27/22 10:22 09/27/22 10:22 Labs: Laboratory Results - last 48 hr 09/30/22 09/30/22 08:13 08:13 Estimat Average Glucose 91 Hemoglobin A1c % 4.8 Magnesium 2.1 Triglycerides 80 Cholesterol 180 LDL Cholesterol, Calc 124 HDL Cholesterol 40 Vitamin B12 521 Folate 15.3 TSH 0.54 Free T4 0.96 Medications Medications Current Medications Acetaminophen (Acetaminophen 325 Mg Tablet) 650 mg PO Q6H PRN PRN Reason: Headache/Pain Mild Scale (1-3) Al Hydroxide/Mg Hydroxide (Magnesium Hydrox/Alum Hydrox 30 Ml Oral.Susp) 30 ml PO Q6H PRN PRN Reason: Heartburn/Nausea Benztropine Mesylate (Benztropine Mesylate 1 Mg Tablet) 1 mg PO TID [facility] Last Admin: 10/01/22 14:00 Dose: 1 mg Hydroxyzine HCl (Hydroxyzine Hcl 25 Mg Tablet) 25 mg PO Q6H PRN PRN Reason: Anxiety Last Admin: 09/30/22 20:06 Dose: 25 mg Lamotrigine (Lamotrigine 100 Mg Tablet) 100 mg PO DAILY [facility] Last Admin: 10/01/22 08:09 Dose: 100 mg Lurasidone HCl (Lurasidone Hcl 20 Mg Tablet) 100 mg PO BEDTIME [facility] Magnesium Hydroxide (Milk Of Magnesia 30 Ml Oral.Susp) 30 ml PO DAILY PRN PRN Reason: Constipation Nicotine Polacrilex (Nicotine Polacrilex 2 Mg Gum) 2 mg BUCCAL Q2H PRN PRN Reason: Smoking Cessation Last Admin: 10/01/22 16:41 Dose: 2 mg Olanzapine (Olanzapine 2.5 Mg Tablet) 2.5 mg PO BEDTIME [facility] Last Admin: 09/30/22 20:06 Dose: 2.5 mg Pharmacy Consult (Consult Rx Perform Med Rec) 1 each MISCELLANE ONCE PRN PRN Reason: Consult order Sertraline HCl (Sertraline Hcl 25 Mg Tablet) 75 mg PO DAILY [facility] Last Admin: 10/01/22 08:09 Dose: 75 mg Allergies Allergies Allergy/AdvReac Type Severity Reaction Status Date / Time aripiprazole [Abilify] Allergy Unknown tongue Verified 08/18/22 05:59 swells and gain weight risperidone [From Risperdal] AdvReac Unknown gain Verified 08/18/22 05:59 weight, and slurred speech cariprazine [From Vraylar] AdvReac Verified 08/18/22 05:59 haloperidol [From Haldol] AdvReac DYSTONIA Verified 08/18/22 05:59 paliperidone AdvReac dystonia Verified 08/18/22 05:59 trazodone AdvReac DYSTONIA Verified 08/18/22 05:59 Assessment & Plan Assessment & Plan (1) Schizoaffective disorder, bipolar type: Status: Acute Code(s): F25.0 - Schizoaffective disorder, bipolar type Plan 22 yo female, history of schizoaffective disorder, bipolar type, PTSD, polysubstance use with current reports of increase in depressive sx with SI, SIBS and difficulty in her new prison in [place]. Plan: Collateral contact Increase Sertraline to 75 mg daily Encourage milieu involvement ?Caplyta, ?Clozaril trials-will discuss with pt, mother, Hermes's guardian. 10/01/22: Increase Latuda to 100 mg hs Application sent to [facility] Patient educated on: medication risk/benefits and therapeutic strategies Informed Consent: further education needed Reason for contiued inpatient stay Substantial Risk for: rapid decompensation Time Spent With Patient Time: Total time managing care of this patient today 60 minutes.
[2022-10-01] MEDS: Sennosides 8.6 MG TABLET 17.2 MG PO (20:21)
[2022-10-01] MEDS: Lurasidone HCl 20 MG TABLET 100 MG PO (20:22)
[2022-10-01] MEDS: hydrOXYzine HCL 25 MG TABLET PO (20:22)
[2022-10-01] MEDS: OLANZapine 2.5 MG TABLET PO (20:22)
[2022-10-02] MEDS: lamoTRIgine 100 MG TABLET PO (08:31)
[2022-10-02] MEDS: Benztropine Mesylate 1 MG TABLET PO ×3 (08:31→19:42)
[2022-10-02] MEDS: Sertraline HCL 25 MG TABLET 75 MG PO (08:31)
[2022-10-02 08:34] VITALS: BP 106/68; PULSE 82; RESP 16; TEMP 36.6; O2SAT 99
[2022-10-02] MEDS: Nicotine Polacrilex 2 MG GUM BUCCAL ×4 (10:36→18:44)
[2022-10-02 16:06] VITALS: BP 114/68; PULSE 76; RESP 16; TEMP 36.6; O2SAT 98
--- NOTE | 2022-10-02 16:19 | HO.PSYCHPN ---
Subjective Subjective Date of Service: 10/02/22 Reason For Visit: Schizoaffective disorder Subjective Notes: Conditional Voluntary Healthcare Proxy: No Guardianship: No Medical Problems Affecting Mental Status: No Interim History: Tolerating Sertraline and Latuda increases Mild lability Improved overall clarity with some evidence of psychotic sx Voices persist Clozapine precert with [facility] pending. Medication Compliance: Yes Side effects from medications: No Attending Groups: No Review of Systems Acute medical concerns: No Medical Review of Systems: unchanged Mental Status Exam Mental Status Exam Patient Appearance: Appropriate Patient Orientation: Person, Place, Time and Situation Level of Consciousness: Alert Patient Behavior: Talkative and Good Eye Contact Mood Description: Constricted Affect Description: Flat Patient Cognition Impaired: No Ability to Follow Directions: Good Speech Pattern: Spontaneous Speech Memory Description: Intact Hallucinations: Auditory Delusions: Paranoid Ideation Perceptual Disturbances: Depersonalization and Derealization Thought Process: Rumination and Goal Oriented Thought Content: positive for Circumstantial and positive for Perseveration Depressive Symptoms: Increased Anxiety, Loss of Int. in Activity, Feelings of Worthlessness, Isolating-Friends/Family, Feelings of Guilt, Unhappiness, Increased Fatigue, Low Self Esteem, Loss of Energy and Difficulty Concentrating Judgement: Fair Diagnostics Vital Signs (24Hr): Vital Signs - 24 hr 10/01/22 17:15 10/02/22 08:34 10/02/22 16:06 Temperature 97.8 F 97.8 F Pulse Rate 79 82 76 Respiratory Rate 16 16 Blood Pressure 116/63 106/68 114/68 Pulse Oximetry 99 99 98 Oxygen Delivery Method Room Air Room Air Room Air Fraction of Inspired Oxygen 99 BMI result Body Mass Index 24.7 Labs 09/27/22 10:22 09/27/22 10:22 Medications Medications Current Medications Acetaminophen (Acetaminophen 325 Mg Tablet) 650 mg PO Q6H PRN PRN Reason: Headache/Pain Mild Scale (1-3) Al Hydroxide/Mg Hydroxide (Magnesium Hydrox/Alum Hydrox 30 Ml Oral.Susp) 30 ml PO Q6H PRN PRN Reason: Heartburn/Nausea Benztropine Mesylate (Benztropine Mesylate 1 Mg Tablet) 1 mg PO TID DUSTIN Last Admin: 10/02/22 14:42 Dose: 1 mg Hydroxyzine HCl (Hydroxyzine Hcl 25 Mg Tablet) 25 mg PO Q6H PRN PRN Reason: Anxiety Last Admin: 10/01/22 20:22 Dose: 25 mg Lamotrigine (Lamotrigine 100 Mg Tablet) 100 mg PO DAILY [facility] Last Admin: 10/02/22 08:31 Dose: 100 mg Lurasidone HCl (Lurasidone Hcl 20 Mg Tablet) 100 mg PO BEDTIME DUSTIN Last Admin: 10/01/22 20:22 Dose: 100 mg Magnesium Hydroxide (Milk Of Magnesia 30 Ml Oral.Susp) 30 ml PO DAILY PRN PRN Reason: Constipation Nicotine Polacrilex (Nicotine Polacrilex 2 Mg Gum) 2 mg BUCCAL Q2H PRN PRN Reason: Smoking Cessation Last Admin: 10/02/22 15:59 Dose: 2 mg Olanzapine (Olanzapine 2.5 Mg Tablet) 2.5 mg PO BEDTIME [facility] Last Admin: 10/01/22 20:22 Dose: 2.5 mg Pharmacy Consult (Consult Rx Perform Med Rec) 1 each MISCELLANE ONCE PRN PRN Reason: Consult order Senna (Sennosides 8.6 Mg Tablet) 17.2 mg PO Q24H PRN PRN Reason: constipation Last Admin: 10/01/22 20:21 Dose: 17.2 mg Sertraline HCl (Sertraline Hcl 25 Mg Tablet) 75 mg PO DAILY [facility] Last Admin: 10/02/22 08:31 Dose: 75 mg Allergies Allergies Allergy/AdvReac Type Severity Reaction Status Date / Time aripiprazole [Abilify] Allergy Unknown tongue Verified 08/18/22 05:59 swells and gain weight risperidone [From Risperdal] AdvReac Unknown gain Verified 08/18/22 05:59 weight, and slurred speech cariprazine [From Vraylar] AdvReac Verified 08/18/22 05:59 haloperidol [From Haldol] AdvReac DYSTONIA Verified 08/18/22 05:59 paliperidone AdvReac dystonia Verified 08/18/22 05:59 trazodone AdvReac DYSTONIA Verified 08/18/22 05:59 Assessment & Plan Assessment & Plan (1) Schizoaffective disorder, bipolar type: Status: Acute Code(s): F25.0 - Schizoaffective disorder, bipolar type Plan 22 yo female, history of schizoaffective disorder, bipolar type, PTSD, polysubstance use with current reports of increase in depressive sx with SI, SIBS and difficulty in her new assisted in [place]. Plan: Collateral contact Increase Sertraline to 75 mg daily Encourage milieu involvement ?Caplyta, ?Clozaril trials-will discuss with pt, mother, Hermes's guardian. 10/01/22: Increase Latuda to 100 mg hs Application sent to [facility] 10/02/22: Clozapine trial pending 10/03. Patient educated on: medication risk/benefits Informed Consent: understands and further education needed Reason for contiued inpatient stay Substantial Risk for: harm to self, inability to function and rapid decompensation Time Spent With Patient Time: Total time managing care of this patient today 15 minutes.
[2022-10-02 18:02] VITALS: BMI 27.5
[2022-10-02] MEDS: Lurasidone HCl 20 MG TABLET 100 MG PO (19:42)
[2022-10-02] MEDS: hydrOXYzine HCL 25 MG TABLET PO (19:42)
[2022-10-02] MEDS: OLANZapine 2.5 MG TABLET PO (19:42)
[2022-10-03 06:00] VITALS: BP 105/58; PULSE 72; RESP 14; TEMP 35.8; O2SAT 98
[2022-10-03 07:38] LABS: MANUAL DIFF FLAG NO
[2022-10-03 07:45] LABS: Basophils Percent Auto 0.8 % (0-2); Eosinophils Absolute Auto 0.2 X10*3/uL (0.0-0.4); Eosinophils Percent Auto 3.2 % (0-4); Hematocrit 35.5 % (37.0-47.0); Hemoglobin 12.4 g/dl (12.0-16.0); Imm Gran Abs Auto 0.01 X10*3/uL (0.00-0.03); Imm Gran Pct Auto 0.2 % (0.0-0.4); Lymphocytes Absolute Auto 2.6 X10*3/uL (1.2-4.9); Lymphocytes Percent Auto 49.2 % (20-40); Mean Corpuscular HGB Conc 34.9 g/dl (31.0-35.0); Mean Corpuscular Hemoglobin 31.3 pg (27.0-33.0); Mean Corpuscular Volume 89.6 fL (80.0-98.0); Mean Platelet Volume 10.5 fL (9.4-12.3); Monocytes Absolute Auto 0.4 X10*3/uL (0.1-1.2); Monocytes Percent Auto 7.9 % (2-11); Neut%MD 38.7 %; Neutrophils Absolute Auto 2.1 x10*3/uL (2.0-8.3); Neutrophils Percent Auto 38.7 % (45-73); Platelet Count 239 X10*3/uL (160-400); Red Blood Count 3.96 X10*6/uL (4.20-5.50); Red Cell Distribution Width 11.5 % (11.0-16.0); WBCANC 5.3 X10*3/uL; White Blood Count 5.3 X10*3/uL (4.8-10.8)
[2022-10-03] MEDS: Sertraline HCL 25 MG TABLET 75 MG PO (08:32)
[2022-10-03] MEDS: lamoTRIgine 100 MG TABLET PO (08:33)
[2022-10-03] MEDS: Benztropine Mesylate 1 MG TABLET PO ×3 (08:33→20:43)
[2022-10-03] MEDS: Nicotine Polacrilex 2 MG GUM BUCCAL ×4 (08:33→20:45)
[2022-10-03] MEDS: hydrOXYzine HCL 25 MG TABLET PO (12:12)
--- NOTE | 2022-10-03 15:52 | P.PNPSI_ITS ---
Subjective Subjective Date of Service: 10/03/22 Reason For Visit: Schizoaffective disorder Subjective Notes: Conditional Voluntary Healthcare Proxy: No Guardianship: No Medical Problems Affecting Mental Status: No Interim History: Clozaril approved by [facility]. Unfortunately, pt has a community Arshad and Clozaril is not one of the meds listed. Advised to amend Jeancarlos for approval. Process initiated. Pt reports she is feeling OK and tolerating increases in Latuda and Sertraline Visable in milieu, however spending much time in her room Medication Compliance: Yes Side effects from medications: No Attending Groups: Intermittent Review of Systems Acute medical concerns: No Medical Review of Systems: unchanged Mental Status Exam Mental Status Exam Patient Appearance: Appropriate Patient Orientation: Person, Place, Time and Situation Level of Consciousness: Alert Patient Behavior: Talkative and Good Eye Contact Mood Description: Constricted Affect Description: Flat Patient Cognition Impaired: No Ability to Follow Directions: Good Speech Pattern: Spontaneous Speech Memory Description: Intact Hallucinations: Auditory Delusions: Paranoid Ideation Perceptual Disturbances: Depersonalization and Derealization Thought Process: Rumination and Goal Oriented Thought Content: positive for Circumstantial and positive for Perseveration Depressive Symptoms: Increased Anxiety, Loss of Int. in Activity, Feelings of Worthlessness, Isolating-Friends/Family, Feelings of Guilt, Unhappiness, Increased Fatigue, Low Self Esteem, Loss of Energy and Difficulty Concentrating Judgement: Fair Diagnostics Vital Signs (24Hr): Vital Signs - 24 hr 10/02/22 16:06 10/03/22 06:00 Temperature 97.8 F 96.5 F L Pulse Rate 76 72 Respiratory Rate 16 14 Blood Pressure 114/68 105/58 L Pulse Oximetry 98 98 Oxygen Delivery Method Room Air Room Air BMI result Body Mass Index 27.5 Labs 10/03/22 07:12 09/27/22 10:22 Labs: Laboratory Results - last 48 hr 10/03/22 07:12 WBC 5.3 RBC 3.96 L Hgb 12.4 Hct 35.5 L MCV 89.6 MCH 31.3 MCHC 34.9 RDW 11.5 Plt Count 239 MPV 10.5 Immature Gran % (Auto) 0.2 Neut % (Auto) 38.7 L Lymph % (Auto) 49.2 H [place] % (Auto) 7.9 Eos % (Auto) 3.2 Baso % (Auto) 0.8 Lymph # (Auto) 2.6 [place] # (Auto) 0.4 Eos # (Auto) 0.2 Baso # (Auto) 0.0 Abs Immat Gran (auto) 0.01 Absolute Neuts (auto) 2.1 Absolute Nucleated RBC 0.000 Nucleated RBC % (auto) 0.0 Medications Medications Current Medications Acetaminophen (Acetaminophen 325 Mg Tablet) 650 mg PO Q6H PRN PRN Reason: Headache/Pain Mild Scale (1-3) Al Hydroxide/Mg Hydroxide (Magnesium Hydrox/Alum Hydrox 30 Ml Oral.Susp) 30 ml PO Q6H PRN PRN Reason: Heartburn/Nausea Benztropine Mesylate (Benztropine Mesylate 1 Mg Tablet) 1 mg PO TID [facility] Last Admin: 10/03/22 14:12 Dose: 1 mg Hydroxyzine HCl (Hydroxyzine Hcl 25 Mg Tablet) 25 mg PO Q6H PRN PRN Reason: Anxiety Last Admin: 10/03/22 12:12 Dose: 25 mg Lamotrigine (Lamotrigine 100 Mg Tablet) 100 mg PO DAILY [facility] Last Admin: 10/03/22 08:33 Dose: 100 mg Lurasidone HCl (Lurasidone Hcl 20 Mg Tablet) 100 mg PO BEDTIME [facility] Last Admin: 10/02/22 19:42 Dose: 100 mg Magnesium Hydroxide (Milk Of Magnesia 30 Ml Oral.Susp) 30 ml PO DAILY PRN PRN Reason: Constipation Nicotine Polacrilex (Nicotine Polacrilex 2 Mg Gum) 2 mg BUCCAL Q2H PRN PRN Reason: Smoking Cessation Last Admin: 10/03/22 14:28 Dose: 2 mg Olanzapine (Olanzapine 2.5 Mg Tablet) 2.5 mg PO BEDTIME [facility] Last Admin: 10/02/22 19:42 Dose: 2.5 mg Pharmacy Consult (Consult Rx Perform Med Rec) 1 each MISCELLANE ONCE PRN PRN Reason: Consult order Senna (Sennosides 8.6 Mg Tablet) 17.2 mg PO Q24H PRN PRN Reason: constipation Last Admin: 10/01/22 20:21 Dose: 17.2 mg Sertraline HCl (Sertraline Hcl 25 Mg Tablet) 75 mg PO DAILY [facility] Last Admin: 10/03/22 08:32 Dose: 75 mg Allergies Allergies Allergy/AdvReac Type Severity Reaction Status Date / Time aripiprazole [Abilify] Allergy Unknown tongue Verified 12/26/22 05:59 swells and gain weight risperidone [From Risperdal] AdvReac Unknown gain Verified 08/18/22 05:59 weight, and slurred speech cariprazine [From Vraylar] AdvReac Verified 08/18/22 05:59 haloperidol [From Haldol] AdvReac DYSTONIA Verified 08/18/22 05:59 paliperidone AdvReac dystonia Verified 08/18/22 05:59 trazodone AdvReac DYSTONIA Verified 08/18/22 05:59 Assessment & Plan Assessment & Plan (1) Schizoaffective disorder, bipolar type: Status: Acute Code(s): F25.0 - Schizoaffective disorder, bipolar type Plan 22 yo female, history of schizoaffective disorder, bipolar type, PTSD, polysubstance use with current reports of increase in depressive sx with SI, SIBS and difficulty in her new [facility] in [place]. Plan: Collateral contact Increase Sertraline to 75 mg daily Encourage milieu involvement ?Caplyta, ?Clozaril trials-will discuss with pt, mother, Hermes's guardian. 10/01/22: Increase Latuda to 100 mg hs Application sent to Cloz[facility] 10/03/22: Amendment of community Jeancarlos initiated. Clozaril on hold for this reason until completed. Patient educated on: medication risk/benefits Informed Consent: further education needed Reason for contiued inpatient stay Substantial Risk for: harm to self, inability to function and rapid decompensation Time Spent With Patient Time: Total time managing care of this patient today 15 minutes.
[2022-10-03 18:00] VITALS: BP 116/77; PULSE 80; RESP 16; TEMP 36.6; O2SAT 96
[2022-10-03] MEDS: OLANZapine 2.5 MG TABLET PO (20:43)
[2022-10-03] MEDS: Lurasidone HCl 20 MG TABLET 100 MG PO (20:43)
[2022-10-04] MEDS: lamoTRIgine 100 MG TABLET PO (07:48)
[2022-10-04] MEDS: Benztropine Mesylate 1 MG TABLET PO ×3 (07:49→19:48)
[2022-10-04] MEDS: Sertraline HCL 25 MG TABLET 75 MG PO (07:54)
[2022-10-04] MEDS: Nicotine Polacrilex 2 MG GUM BUCCAL ×5 (07:54→19:48)
[2022-10-04 08:10] VITALS: BP 113/78; PULSE 71; RESP 16; TEMP 36.6; O2SAT 99
--- NOTE | 2022-10-04 09:23 | HO.PSYCHPN ---
Subjective Subjective Date of Service: 10/04/22 Reason For Visit: Schizoaffective disorder Interim History: Met with patient; discussed in teams; review chart Patient internally preoccupied and self dialogue Ng. She says that she does have auditory hallucinations but even though there are still a little bit bothersome she is tolerating it and does not want medications changed. She reports sleeping well. Patient reports constipation and asked about fecal disimpaction but will try enema Mental Status Exam Mental Status Exam Patient Appearance: Appropriate Patient Orientation: Person, Place, Time and Situation Level of Consciousness: Alert Patient Behavior: Talkative and Good Eye Contact Mood Description: Constricted Affect Description: Flat Patient Cognition Impaired: No Ability to Follow Directions: Good Speech Pattern: Spontaneous Speech Memory Description: Intact Hallucinations: Auditory Delusions: Paranoid Ideation Perceptual Disturbances: Depersonalization and Derealization Thought Process: Rumination and Goal Oriented Thought Content: positive for Circumstantial and positive for Perseveration Depressive Symptoms: Increased Anxiety, Loss of Int. in Activity, Feelings of Worthlessness, Isolating-Friends/Family, Feelings of Guilt, Unhappiness, Increased Fatigue, Low Self Esteem, Loss of Energy and Difficulty Concentrating Judgement: Fair Diagnostics Vital Signs (24Hr): Vital Signs - 24 hr 10/03/22 18:00 10/04/22 08:10 Temperature 97.9 F 97.8 F Pulse Rate 80 71 Respiratory Rate 16 16 Blood Pressure 116/77 113/78 Pulse Oximetry 96 99 Oxygen Delivery Method Room Air Room Air BMI result Body Mass Index 27.5 Labs 10/03/22 07:12 09/27/22 10:22 Labs: Laboratory Results - last 48 hr 10/03/22 07:12 WBC 5.3 RBC 3.96 L Hgb 12.4 Hct 35.5 L MCV 89.6 MCH 31.3 MCHC 34.9 RDW 11.5 Plt Count 239 MPV 10.5 Immature Gran % (Auto) 0.2 Neut % (Auto) 38.7 L Lymph % (Auto) 49.2 H [place] % (Auto) 7.9 Eos % (Auto) 3.2 Baso % (Auto) 0.8 Lymph # (Auto) 2.6 [place] # (Auto) 0.4 Eos # (Auto) 0.2 Baso # (Auto) 0.0 Abs Immat Gran (auto) 0.01 Absolute Neuts (auto) 2.1 Absolute Nucleated RBC 0.000 Nucleated RBC % (auto) 0.0 Medications Medications Current Medications Acetaminophen (Acetaminophen 325 Mg Tablet) 650 mg PO Q6H PRN PRN Reason: Headache/Pain Mild Scale (1-3) Al Hydroxide/Mg Hydroxide (Magnesium Hydrox/Alum Hydrox 30 Ml Oral.Susp) 30 ml PO Q6H PRN PRN Reason: Heartburn/Nausea Benztropine Mesylate (Benztropine Mesylate 1 Mg Tablet) 1 mg PO TID [facility] Last Admin: 10/04/22 07:49 Dose: 1 mg Hydroxyzine HCl (Hydroxyzine Hcl 25 Mg Tablet) 25 mg PO Q6H PRN PRN Reason: Anxiety Last Admin: 10/03/22 12:12 Dose: 25 mg Lamotrigine (Lamotrigine 100 Mg Tablet) 100 mg PO DAILY [facility] Last Admin: 10/04/22 07:48 Dose: 100 mg Lurasidone HCl (Lurasidone Hcl 20 Mg Tablet) 100 mg PO BEDTIME [facility] Last Admin: 10/03/22 20:43 Dose: 100 mg Magnesium Hydroxide (Milk Of Magnesia 30 Ml Oral.Susp) 30 ml PO DAILY PRN PRN Reason: Constipation Nicotine Polacrilex (Nicotine Polacrilex 2 Mg Gum) 2 mg BUCCAL Q2H PRN PRN Reason: Smoking Cessation Last Admin: 10/04/22 07:54 Dose: 2 mg Olanzapine (Olanzapine 2.5 Mg Tablet) 2.5 mg PO BEDTIME [facility] Last Admin: 10/03/22 20:43 Dose: 2.5 mg Pharmacy Consult (Consult Rx Perform Med Rec) 1 each MISCELLANE ONCE PRN PRN Reason: Consult order Senna (Sennosides 8.6 Mg Tablet) 17.2 mg PO Q24H PRN PRN Reason: constipation Last Admin: 10/01/22 20:21 Dose: 17.2 mg Sertraline HCl (Sertraline Hcl 25 Mg Tablet) 75 mg PO DAILY [facility] Last Admin: 10/04/22 07:54 Dose: 75 mg Allergies Allergies Allergy/AdvReac Type Severity Reaction Status Date / Time aripiprazole [Abilify] Allergy Unknown tongue Verified 08/18/22 05:59 swells and gain weight risperidone [From Risperdal] AdvReac Unknown gain Verified 08/18/22 05:59 weight, and slurred speech cariprazine [From Vraylar] AdvReac Verified 08/18/22 05:59 haloperidol [From Haldol] AdvReac DYSTONIA Verified 08/18/22 05:59 paliperidone AdvReac dystonia Verified 08/18/22 05:59 trazodone AdvReac DYSTONIA Verified 08/18/22 05:59 Assessment & Plan Assessment & Plan (1) Schizoaffective disorder, bipolar type: Status: Acute Code(s): F25.0 - Schizoaffective disorder, bipolar type Plan 22 yo female, history of schizoaffective disorder, bipolar type, PTSD, polysubstance use with current reports of increase in depressive sx with SI, SIBS and difficulty in her new care home in [place]. Plan: Collateral contact Increase Sertraline to 75 mg daily Encourage milieu involvement ?Caplyta, ?Clozaril trials-will discuss with pt, mother, Hermes's guardian. 10/01/22: Increase Latuda to 100 mg hs Application sent to Cl[facility] 10/03/22: Amendment of community Arshad initiated. Clozaril on hold for this reason until completed. 10/04 continue current treatment plan Patient educated on: diagnosis and medication risk/benefits Informed Consent: understands and further education needed Reason for contiued inpatient stay Substantial Risk for: rapid decompensation Time Spent With Patient Time: Total time managing care of this patient today ____ minutes.
[2022-10-04] MEDS: hydrOXYzine HCL 25 MG TABLET PO (14:57)
--- NOTE | 2022-10-04 15:08 | PC.NURSE ---
Pt signed a 3-day notice 10/04/22, up 10/08/22.
[2022-10-04] MEDS: Sennosides 8.6 MG TABLET 17.2 MG PO (16:43)
[2022-10-04 18:00] VITALS: BP 112/78; PULSE 72; RESP 16; TEMP 36.6; O2SAT 99
[2022-10-04] MEDS: Lurasidone HCl 20 MG TABLET 100 MG PO (19:47)
[2022-10-04] MEDS: OLANZapine 2.5 MG TABLET PO (19:48)
[2022-10-05] MEDS: Benztropine Mesylate 1 MG TABLET PO ×3 (09:45→20:51)
[2022-10-05] MEDS: Sertraline HCL 25 MG TABLET 75 MG PO (09:45)
[2022-10-05] MEDS: lamoTRIgine 100 MG TABLET PO (09:45)
[2022-10-05] MEDS: Nicotine Polacrilex 2 MG GUM BUCCAL ×4 (10:45→19:34)
[2022-10-05] MEDS: Sodium Phosphate,Mono-Dibasic 133 ML ENEMA PR (10:54)
[2022-10-05] MEDS: hydrOXYzine HCL 25 MG TABLET PO ×2 (11:14→20:52)
[2022-10-05] MEDS: Sennosides 8.6 MG TABLET 17.2 MG PO (11:14)
--- NOTE | 2022-10-05 14:03 | HO.PSYCHPN ---
Subjective Subjective Date of Service: 10/05/22 Reason For Visit: Schizoaffective disorder Interim History: Met with patient; discussed with team Patient clearly internally preoccupied, talking to self, swallowing laughing. Does not want any medication changes and says she is doing fine. Constipated but responded to Fleet enema Mental Status Exam Mental Status Exam Patient Appearance: Appropriate Patient Orientation: Person, Place, Time and Situation Level of Consciousness: Alert Patient Behavior: Talkative and Good Eye Contact Mood Description: Constricted Affect Description: Flat Patient Cognition Impaired: No Ability to Follow Directions: Good Speech Pattern: Spontaneous Speech Memory Description: Intact Hallucinations: Auditory Delusions: Paranoid Ideation Perceptual Disturbances: Depersonalization and Derealization Thought Process: Rumination and Goal Oriented Thought Content: positive for Circumstantial and positive for Perseveration Depressive Symptoms: Increased Anxiety, Loss of Int. in Activity, Feelings of Worthlessness, Isolating-Friends/Family, Feelings of Guilt, Unhappiness, Increased Fatigue, Low Self Esteem, Loss of Energy and Difficulty Concentrating Judgement: Fair Diagnostics Vital Signs (24Hr): Vital Signs - 24 hr 10/04/22 18:00 Temperature 97.9 F Pulse Rate 72 Respiratory Rate 16 Blood Pressure 112/78 Pulse Oximetry 99 Oxygen Delivery Method Room Air BMI result Body Mass Index 27.5 Labs 10/03/22 07:12 09/27/22 10:22 Medications Medications Current Medications Acetaminophen (Acetaminophen 325 Mg Tablet) 650 mg PO Q6H PRN PRN Reason: Headache/Pain Mild Scale (1-3) Al Hydroxide/Mg Hydroxide (Magnesium Hydrox/Alum Hydrox 30 Ml Oral.Susp) 30 ml PO Q6H PRN PRN Reason: Heartburn/Nausea Benztropine Mesylate (Benztropine Mesylate 1 Mg Tablet) 1 mg PO TID [facility] Last Admin: 10/05/22 09:45 Dose: 1 mg Hydroxyzine HCl (Hydroxyzine Hcl 25 Mg Tablet) 25 mg PO Q6H PRN PRN Reason: Anxiety Last Admin: 10/05/22 11:14 Dose: 25 mg Lamotrigine (Lamotrigine 100 Mg Tablet) 100 mg PO DAILY [facility] Last Admin: 10/05/22 09:45 Dose: 100 mg Lurasidone HCl (Lurasidone Hcl 20 Mg Tablet) 100 mg PO BEDTIME [facility] Last Admin: 10/04/22 19:47 Dose: 100 mg Magnesium Hydroxide (Milk Of Magnesia 30 Ml Oral.Susp) 30 ml PO DAILY PRN PRN Reason: Constipation Nicotine Polacrilex (Nicotine Polacrilex 2 Mg Gum) 2 mg BUCCAL Q2H PRN PRN Reason: Smoking Cessation Last Admin: 10/05/22 13:26 Dose: 2 mg Olanzapine (Olanzapine 2.5 Mg Tablet) 2.5 mg PO BEDTIME [facility] Last Admin: 10/04/22 19:48 Dose: 2.5 mg Pharmacy Consult (Consult Rx Perform Med Rec) 1 each MISCELLANE ONCE PRN PRN Reason: Consult order Senna (Sennosides 8.6 Mg Tablet) 17.2 mg PO Q24H PRN PRN Reason: constipation Last Admin: 10/05/22 11:14 Dose: 17.2 mg Sertraline HCl (Sertraline Hcl 25 Mg Tablet) 75 mg PO DAILY [facility] Last Admin: 10/05/22 09:45 Dose: 75 mg Sodium Biphosphate/Sodium Phosphate (Sodium Phosphate,[place]-Dibasic 133 Ml Enema) 133 ml MO ONCE PRN PRN Reason: Constipation Last Admin: 10/05/22 10:54 Dose: 133 ml Allergies Allergies Allergy/AdvReac Type Severity Reaction Status Date / Time aripiprazole [Abilify] Allergy Unknown tongue Verified 08/18/22 05:59 swells and gain weight risperidone [From Risperdal] AdvReac Unknown gain Verified 08/18/22 05:59 weight, and slurred speech cariprazine [From Vraylar] AdvReac Verified 08/18/22 05:59 haloperidol [From Haldol] AdvReac DYSTONIA Verified 08/18/22 05:59 paliperidone AdvReac dystonia Verified 08/18/22 05:59 trazodone AdvReac DYSTONIA Verified 08/18/22 05:59 Assessment & Plan Assessment & Plan (1) Schizoaffective disorder, bipolar type: Status: Acute Code(s): F25.0 - Schizoaffective disorder, bipolar type Plan 22 yo female, history of schizoaffective disorder, bipolar type, PTSD, polysubstance use with current reports of increase in depressive sx with SI, SIBS and difficulty in her new skilled nursing in [place]. Plan: Collateral contact Increase Sertraline to 75 mg daily Encourage milieu involvement ?Caplyta, ?Clozaril trials-will discuss with pt, mother, Hermes's guardian. 10/01/22: Increase Latuda to 100 mg hs Application sent to Cloz[facility] 10/03/22: Amendment of community Jeancarlos initiated. Clozaril on hold for this reason until completed. 10/04 continue current treatment plan 10/05 continue current treatment plan Patient educated on: diagnosis Informed Consent: understands and further education needed Reason for contiued inpatient stay Substantial Risk for: med/psych decompensation Time Spent With Patient Time: Total time managing care of this patient today ____ minutes.
[2022-10-05 14:50] VITALS: BP 117/82; PULSE 100; RESP 16; TEMP 36.6; O2SAT 97
[2022-10-05 18:00] VITALS: BP 118/70; PULSE 82; RESP 18; TEMP 36; O2SAT 98
[2022-10-05] MEDS: Lurasidone HCl 20 MG TABLET 100 MG PO (20:51)
[2022-10-05] MEDS: OLANZapine 2.5 MG TABLET PO (20:52)
[2022-10-06 08:20] VITALS: RESP 18
[2022-10-06] MEDS: lamoTRIgine 100 MG TABLET PO (08:32)
[2022-10-06] MEDS: Sertraline HCL 25 MG TABLET 75 MG PO (08:32)
[2022-10-06] MEDS: Benztropine Mesylate 1 MG TABLET PO ×3 (08:32→21:02)
[2022-10-06] MEDS: Nicotine Polacrilex 2 MG GUM BUCCAL ×5 (11:25→21:05)
--- NOTE | 2022-10-06 16:20 | HO.PSYCHPN ---
Subjective Subjective Date of Service: 10/06/22 Reason For Visit: Schizoaffective disorder Subjective Notes: Conditional Voluntary and 3 Day Healthcare Proxy: No Guardianship: No Medical Problems Affecting Mental Status: No Interim History: Pt reporting sx constipation. Fleet enema with positive result. Discussed today adding Clozapine to Arshad. Pt describes persistant voices which occur through medications, they have never stopped . Describes them as derrogatory, promoting pt to feel badly about herself and to take actions by history which are endangering-requiring structure, support, reality testing. She would like these sx to extinguish as this is an overpowering sx for her. Discussed Clozaril efficacy. Discussed previous trials and their allowing sx to breakthrough. Medication Compliance: Yes Side effects from medications: No Attending Groups: Intermittent Review of Systems Acute medical concerns: No Medical Review of Systems: unchanged Mental Status Exam Mental Status Exam Patient Appearance: Appropriate Patient Orientation: Person, Place, Time and Situation Level of Consciousness: Alert Patient Behavior: Talkative and Good Eye Contact Mood Description: Flat Affect Description: Flat Patient Cognition Impaired: No Ability to Follow Directions: Good Speech Pattern: Spontaneous Speech Memory Description: Intact Hallucinations: Auditory Delusions: Paranoid Ideation and Present Perceptual Disturbances: Depersonalization and Derealization Thought Process: Distracted Thought Content: positive for Circumstantial and positive for Suicidal Ideation (denies today) Depressive Symptoms: Diff. Making Decisions, Loss of Int. in Activity, Feelings of Worthlessness, Feelings of Guilt, Unhappiness, Increased Fatigue, Low Self Esteem and Difficulty Concentrating Judgement: Fair Diagnostics Vital Signs (24Hr): Vital Signs - 24 hr 10/05/22 18:00 10/06/22 08:20 Temperature 96.8 F Pulse Rate 82 Respiratory Rate 18 18 Blood Pressure 118/70 Pulse Oximetry 98 Oxygen Delivery Method Room Air BMI result Body Mass Index 27.5 Labs 10/03/22 07:12 09/27/22 10:22 Medications Medications Current Medications Acetaminophen (Acetaminophen 325 Mg Tablet) 650 mg PO Q6H PRN PRN Reason: Headache/Pain Mild Scale (1-3) Al Hydroxide/Mg Hydroxide (Magnesium Hydrox/Alum Hydrox 30 Ml Oral.Susp) 30 ml PO Q6H PRN PRN Reason: Heartburn/Nausea Benztropine Mesylate (Benztropine Mesylate 1 Mg Tablet) 1 mg PO TID [facility] Last Admin: 10/06/22 15:05 Dose: 1 mg Hydroxyzine HCl (Hydroxyzine Hcl 25 Mg Tablet) 25 mg PO Q6H PRN PRN Reason: Anxiety Last Admin: 10/05/22 20:52 Dose: 25 mg Lamotrigine (Lamotrigine 100 Mg Tablet) 100 mg PO DAILY [facility] Last Admin: 10/06/22 08:32 Dose: 100 mg Lurasidone HCl (Lurasidone Hcl 20 Mg Tablet) 100 mg PO BEDTIME [facility] Last Admin: 10/05/22 20:51 Dose: 100 mg Magnesium Hydroxide (Milk Of Magnesia 30 Ml Oral.Susp) 30 ml PO DAILY PRN PRN Reason: Constipation Nicotine Polacrilex (Nicotine Polacrilex 2 Mg Gum) 2 mg BUCCAL Q2H PRN PRN Reason: Smoking Cessation Last Admin: 10/06/22 14:16 Dose: 2 mg Olanzapine (Olanzapine 2.5 Mg Tablet) 2.5 mg PO BEDTIME [facility] Last Admin: 10/05/22 20:52 Dose: 2.5 mg Pharmacy Consult (Consult Rx Perform Med Rec) 1 each MISCELLANE ONCE PRN PRN Reason: Consult order Senna (Sennosides 8.6 Mg Tablet) 17.2 mg PO Q24H PRN PRN Reason: constipation Last Admin: 10/05/22 11:14 Dose: 17.2 mg Sertraline HCl (Sertraline Hcl 25 Mg Tablet) 75 mg PO DAILY [facility] Last Admin: 10/06/22 08:32 Dose: 75 mg Sodium Biphosphate/Sodium Phosphate (Sodium Phosphate,[place]-Dibasic 133 Ml Enema) [address] ONCE PRN PRN Reason: Constipation Last Admin: 10/05/22 10:54 Dose: 133 ml Allergies Allergies Allergy/AdvReac Type Severity Reaction Status Date / Time aripiprazole [Abilify] Allergy Unknown tongue Verified 08/18/22 05:59 swells and gain weight risperidone [From Risperdal] AdvReac Unknown gain Verified 08/18/22 05:59 weight, and slurred speech cariprazine [From Vraylar] AdvReac Verified 08/18/22 05:59 haloperidol [From Haldol] AdvReac DYSTONIA Verified 08/18/22 05:59 paliperidone AdvReac dystonia Verified 08/18/22 05:59 trazodone AdvReac DYSTONIA Verified 08/18/22 05:59 Assessment & Plan Assessment & Plan (1) Schizoaffective disorder, bipolar type: Status: Acute Code(s): F25.0 - Schizoaffective disorder, bipolar type Plan 22 yo female, history of schizoaffective disorder, bipolar type, PTSD, polysubstance use with current reports of increase in depressive sx with SI, SIBS and difficulty in her new care home in [place]. Plan: Collateral contact Increase Sertraline to 75 mg daily Encourage milieu involvement ?Caplyta, ?Clozaril trials-will discuss with pt, mother, Hermes's guardian. 10/01/22: Increase Latuda to 100 mg hs Application sent to Cloz[facility]il [facility] 10/03/22: Amendment of community Arshad initiated. Clozaril on hold for this reason until completed. 10/04 continue current treatment plan 10/05 continue current treatment plan 10/06/22: Paperwork submitted to request Clozapine addition to treatment plan to focus on extinguishing voices. Patient educated on: medication risk/benefits and therapeutic strategies Informed Consent: further education needed Reason for contiued inpatient stay Substantial Risk for: rapid decompensation Time Spent With Patient Time: Total time managing care of this patient today 20 minutes.
[2022-10-06 18:00] VITALS: BP 115/73; PULSE 72; RESP 16; TEMP 36.5; O2SAT 98
[2022-10-06] MEDS: hydrOXYzine HCL 25 MG TABLET PO (21:00)
[2022-10-06] MEDS: Lurasidone HCl 20 MG TABLET 100 MG PO (21:00)
[2022-10-06] MEDS: Sennosides 8.6 MG TABLET 17.2 MG PO (21:02)
[2022-10-06] MEDS: OLANZapine 2.5 MG TABLET PO (21:02)
--- NOTE | 2022-10-06 21:55 | ECG_ITS ---
Test Reason : medication Blood Pressure : / mmHG Vent. Rate : 059 BPM Atrial Rate : 059 BPM P-R Int : 172 ms QRS Dur : 086 ms QT Int : 414 ms P-R-T Axes : 038 066 046 degrees QTc Int : 409 ms Sinus bradycardia Otherwise normal ECG When compared to the previous EKG of Previous ECG has limb leads reversel Referred By: Zee Washington Electronically Signed By:Basil Albarran
--- NOTE | 2022-10-06 22:15 | PC.NURSE ---
EKG done, MD Sanchez notified, NSR, normal EKG. No new orders.
[2022-10-07] MEDS: lamoTRIgine 100 MG TABLET PO (08:32)
[2022-10-07] MEDS: Benztropine Mesylate 1 MG TABLET PO ×3 (08:32→19:48)
[2022-10-07] MEDS: Sertraline HCL 25 MG TABLET 75 MG PO (08:32)
[2022-10-07] MEDS: Nicotine Polacrilex 2 MG GUM BUCCAL ×4 (12:00→19:48)
--- NOTE | 2022-10-07 16:38 | P.PNPSI_ITS ---
Subjective Subjective Date of Service: 10/07/22 Reason For Visit: Schizoaffective disorder Subjective Notes: 3 Day (retracted today) Healthcare Proxy: No Guardianship: Yes Medical Problems Affecting Mental Status: No Interim History: Paperwork filed for the court amendment to Je[facility]. [employer] with changes which were completed by tw and resubmitted. Pt retracted TDN. Not wanting to return to program if she leaves-aware she would be homeless. Hopeful in regards to Clozapine trial, believes she would have a much easier time without managing auditory perceptual alterations constantly. Medication Compliance: Yes Side effects from medications: No Attending Groups: Intermittent Review of Systems Acute medical concerns: No Medical Review of Systems: unchanged Mental Status Exam Mental Status Exam Patient Appearance: Appropriate Patient Orientation: Person, Place, Time and Situation Level of Consciousness: Alert Patient Behavior: Talkative and Good Eye Contact Mood Description: Flat Affect Description: Flat Patient Cognition Impaired: No Ability to Follow Directions: Good Speech Pattern: Spontaneous Speech Memory Description: Intact Hallucinations: Auditory Delusions: Paranoid Ideation and Present Perceptual Disturbances: Depersonalization and Derealization Thought Process: Distracted Thought Content: positive for Circumstantial and positive for Suicidal Ideation (denies today) Depressive Symptoms: Diff. Making Decisions, Loss of Int. in Activity, Feelings of Worthlessness, Feelings of Guilt, Unhappiness, Increased Fatigue, Low Self Esteem and Difficulty Concentrating Judgement: Fair Diagnostics Vital Signs (24Hr): Vital Signs - 24 hr 10/06/22 18:00 Temperature 97.7 F Pulse Rate 72 Respiratory Rate 16 Blood Pressure 115/73 Pulse Oximetry 98 Oxygen Delivery Method Room Air BMI result Body Mass Index 27.5 Labs 10/03/22 07:12 09/27/22 10:22 Medications Medications Current Medications Acetaminophen (Acetaminophen 325 Mg Tablet) 650 mg PO Q6H PRN PRN Reason: Headache/Pain Mild Scale (1-3) Al Hydroxide/Mg Hydroxide (Magnesium Hydrox/Alum Hydrox 30 Ml Oral.Susp) 30 ml PO Q6H PRN PRN Reason: Heartburn/Nausea Benztropine Mesylate (Benztropine Mesylate 1 Mg Tablet) 1 mg PO TID DUSTIN Last Admin: 10/07/22 14:06 Dose: 1 mg Hydroxyzine HCl (Hydroxyzine Hcl 25 Mg Tablet) 25 mg PO Q6H PRN PRN Reason: Anxiety Last Admin: 10/06/22 21:00 Dose: 25 mg Lamotrigine (Lamotrigine 100 Mg Tablet) 100 mg PO DAILY [facility] Last Admin: 10/07/22 08:32 Dose: 100 mg Lurasidone HCl (Lurasidone Hcl 20 Mg Tablet) 100 mg PO BEDTIME [facility] Last Admin: 10/06/22 21:00 Dose: 100 mg Magnesium Hydroxide (Milk Of Magnesia 30 Ml Oral.Susp) 30 ml PO DAILY PRN PRN Reason: Constipation Nicotine Polacrilex (Nicotine Polacrilex 2 Mg Gum) 2 mg BUCCAL Q2H PRN PRN Reason: Smoking Cessation Last Admin: 10/07/22 14:11 Dose: 2 mg Olanzapine (Olanzapine 2.5 Mg Tablet) 2.5 mg PO BEDTIME [facility] Last Admin: 10/06/22 21:02 Dose: 2.5 mg Pharmacy Consult (Consult Rx Perform Med Rec) 1 each MISCELLANE ONCE PRN PRN Reason: Consult order Senna (Sennosides 8.6 Mg Tablet) 17.2 mg PO BEDTIME [facility] Last Admin: 10/06/22 21:02 Dose: 17.2 mg Sertraline HCl (Sertraline Hcl 25 Mg Tablet) 75 mg PO DAILY [facility] Last Admin: 10/07/22 08:32 Dose: 75 mg Sodium Biphosphate/Sodium Phosphate (Sodium Phosphate,[place]-Dibasic 133 Ml Enema) 133 ml [place] ONCE PRN PRN Reason: Constipation Last Admin: 10/05/22 10:54 Dose: 133 ml Allergies Allergies Allergy/AdvReac Type Severity Reaction Status Date / Time aripiprazole [Abilify] Allergy Unknown tongue Verified 08/18/22 05:59 swells and gain weight risperidone [From Risperdal] AdvReac Unknown gain Verified 08/18/22 05:59 weight, and slurred speech cariprazine [From Vraylar] AdvReac Verified 08/18/22 05:59 haloperidol [From Haldol] AdvReac DYSTONIA Verified 08/18/22 05:59 paliperidone AdvReac dystonia Verified 08/18/22 05:59 trazodone AdvReac DYSTONIA Verified 08/18/22 05:59 Assessment & Plan Assessment & Plan (1) Schizoaffective disorder, bipolar type: Status: Acute Code(s): F25.0 - Schizoaffective disorder, bipolar type Plan 22 yo female, history of schizoaffective disorder, bipolar type, PTSD, polysubstance use with current reports of increase in depressive sx with SI, SIBS and difficulty in her new retirement in [place]. Plan: Collateral contact Increase Sertraline to 75 mg daily Encourage milieu involvement ?Caplyta, ?Clozaril trials-will discuss with pt, mother, Hermes's guardian. 10/01/22: Increase Latuda to 100 mg hs Application sent to [facility] 10/03/22: Amendment of community Je[facility]arl[facility] initiated. Clozaril on hold for this reason until completed. 10/04 continue current treatment plan 10/05 continue current treatment plan 10/07/22: Court date 10/14/22 to possibly amend [facility] and to begin Clozaril Continue current regime. Patient educated on: therapeutic strategies Informed Consent: further education needed Reason for contiued inpatient stay Substantial Risk for: rapid decompensation Time Spent With Patient Time: Total time managing care of this patient today 15 minutes.
[2022-10-07 16:55] VITALS: BP 102/57; PULSE 102; TEMP 36.3
[2022-10-07] MEDS: Lurasidone HCl 20 MG TABLET 100 MG PO (19:46)
[2022-10-07] MEDS: Sennosides 8.6 MG TABLET 17.2 MG PO (19:48)
[2022-10-07] MEDS: OLANZapine 2.5 MG TABLET PO (19:48)
[2022-10-08] MEDS: Benztropine Mesylate 1 MG TABLET PO ×3 (09:03→20:12)
[2022-10-08] MEDS: Sertraline HCL 25 MG TABLET 75 MG PO (09:03)
[2022-10-08] MEDS: lamoTRIgine 100 MG TABLET PO (09:03)
[2022-10-08 09:30] VITALS: RESP 16
[2022-10-08] MEDS: Nicotine Polacrilex 2 MG GUM BUCCAL ×5 (11:16→20:12)
[2022-10-08 18:00] VITALS: BP 120/69; PULSE 74; RESP 18; TEMP 36.5; O2SAT 98
--- NOTE | 2022-10-08 18:25 | HO.PSYCHPN ---
Subjective Subjective Date of Service: 10/08/22 Reason For Visit: Schizoaffective disorder Subjective Notes: Conditional Voluntary and 3 Day (retracted) Healthcare Proxy: No Guardianship: Yes Medical Problems Affecting Mental Status: No Interim History: Retraction of TDN. Denies issues today when approached. Aware of court date for Hermes[facility] amendment on 10/14/22. Appears irritable, distracted, paranoid, distanced Medication Compliance: Yes Side effects from medications: No Attending Groups: Intermittent Review of Systems Acute medical concerns: No Medical Review of Systems: unchanged Mental Status Exam Mental Status Exam Patient Appearance: Appropriate Patient Orientation: Person, Place, Time and Situation Level of Consciousness: Alert Patient Behavior: Talkative and Good Eye Contact Mood Description: Flat Affect Description: Flat Patient Cognition Impaired: No Ability to Follow Directions: Good Speech Pattern: Spontaneous Speech Memory Description: Intact Hallucinations: Auditory Delusions: Paranoid Ideation and Present Perceptual Disturbances: Depersonalization and Derealization Thought Process: Distracted Thought Content: positive for Circumstantial and positive for Suicidal Ideation (denies today) Depressive Symptoms: Diff. Making Decisions, Loss of Int. in Activity, Feelings of Worthlessness, Feelings of Guilt, Unhappiness, Increased Fatigue, Low Self Esteem and Difficulty Concentrating Judgement: Fair Diagnostics Vital Signs (24Hr): Vital Signs - 24 hr 10/08/22 09:30 10/08/22 18:00 Temperature 97.7 F Pulse Rate 74 Respiratory Rate 16 18 Blood Pressure 120/69 Pulse Oximetry 98 Oxygen Delivery Method Room Air BMI result Body Mass Index 27.5 Labs 10/03/22 07:12 09/27/22 10:22 Medications Medications Current Medications Acetaminophen (Acetaminophen 325 Mg Tablet) 650 mg PO Q6H PRN PRN Reason: Headache/Pain Mild Scale (1-3) Al Hydroxide/Mg Hydroxide (Magnesium Hydrox/Alum Hydrox 30 Ml Oral.Susp) 30 ml PO Q6H PRN PRN Reason: Heartburn/Nausea Benztropine Mesylate (Benztropine Mesylate 1 Mg Tablet) 1 mg PO TID DUSTIN Last Admin: 10/08/22 14:24 Dose: 1 mg Hydroxyzine HCl (Hydroxyzine Hcl 25 Mg Tablet) 25 mg PO Q6H PRN PRN Reason: Anxiety Last Admin: 10/06/22 21:00 Dose: 25 mg Lamotrigine (Lamotrigine 100 Mg Tablet) 100 mg PO DAILY [facility] Last Admin: 10/08/22 09:03 Dose: 100 mg Lurasidone HCl (Lurasidone Hcl 20 Mg Tablet) 100 mg PO BEDTIME [facility] Last Admin: 10/07/22 19:46 Dose: 100 mg Magnesium Hydroxide (Milk Of Magnesia 30 Ml Oral.Susp) 30 ml PO DAILY PRN PRN Reason: Constipation Nicotine Polacrilex (Nicotine Polacrilex 2 Mg Gum) 2 mg BUCCAL Q2H PRN PRN Reason: Smoking Cessation Last Admin: 10/08/22 17:36 Dose: 2 mg Olanzapine (Olanzapine 2.5 Mg Tablet) 2.5 mg PO BEDTIME [facility] Last Admin: 10/07/22 19:48 Dose: 2.5 mg Pharmacy Consult (Consult Rx Perform Med Rec) 1 each MISCELLANE ONCE PRN PRN Reason: Consult order Senna (Sennosides 8.6 Mg Tablet) 17.2 mg PO BEDTIME [facility] Last Admin: 10/07/22 19:48 Dose: 17.2 mg Sertraline HCl (Sertraline Hcl 25 Mg Tablet) 75 mg PO DAILY [facility] Last Admin: 10/08/22 09:03 Dose: 75 mg Sodium Biphosphate/Sodium Phosphate (Sodium Phosphate,[place]-Dibasic 133 Ml Enema) 133 ml [place] ONCE PRN PRN Reason: Constipation Last Admin: 10/05/22 10:54 Dose: 133 ml Allergies Allergies Allergy/AdvReac Type Severity Reaction Status Date / Time aripiprazole [Abilify] Allergy Unknown tongue Verified 08/18/22 05:59 swells and gain weight risperidone [From Risperdal] AdvReac Unknown gain Verified 08/18/22 05:59 weight, and slurred speech cariprazine [From Vraylar] AdvReac Verified 08/18/22 05:59 haloperidol [From Haldol] AdvReac DYSTONIA Verified 08/18/22 05:59 paliperidone AdvReac dystonia Verified 08/18/22 05:59 trazodone AdvReac DYSTONIA Verified 08/18/22 05:59 Assessment & Plan Assessment & Plan (1) Schizoaffective disorder, bipolar type: Status: Acute Code(s): F25.0 - Schizoaffective disorder, bipolar type Plan 22 yo female, history of schizoaffective disorder, bipolar type, PTSD, polysubstance use with current reports of increase in depressive sx with SI, SIBS and difficulty in her new long term in [place]. Plan: Collateral contact Increase Sertraline to 75 mg daily Encourage milieu involvement ?Caplyta, ?Clozaril trials-will discuss with pt, mother, Hermes's guardian. 10/01/22: Increase Latuda to 100 mg hs Application sent to [facility] 10/03/22: Amendment of community Arshad initiated. Clozaril on hold for this reason until completed. 10/04 continue current treatment plan 10/05 continue current treatment plan 10/07/22: Court date 10/14/22 to possibly amend [facility] and to begin Clozaril Continue current regime. 10/08/22: Tolerating recent increases of Latuda/Sertraline. Await court approval for potential Clozaril trial. Informed Consent: further education needed Reason for contiued inpatient stay Substantial Risk for: rapid decompensation Time Spent With Patient Time: Total time managing care of this patient today ____ minutes.
[2022-10-08] MEDS: Lurasidone HCl 20 MG TABLET 100 MG PO (20:12)
[2022-10-08] MEDS: OLANZapine 2.5 MG TABLET PO (20:12)
[2022-10-08] MEDS: Sennosides 8.6 MG TABLET 17.2 MG PO (20:12)
[2022-10-08] MEDS: hydrOXYzine HCL 25 MG TABLET PO (20:12)
[2022-10-09 06:00] VITALS: BP 116/59; PULSE 80; TEMP 36.8; O2SAT 98
[2022-10-09 07:00] VITALS: BMI 27.8
[2022-10-09] MEDS: Benztropine Mesylate 1 MG TABLET PO ×3 (08:16→20:06)
[2022-10-09] MEDS: lamoTRIgine 100 MG TABLET PO (08:17)
[2022-10-09] MEDS: Sertraline HCL 25 MG TABLET 75 MG PO (08:17)
[2022-10-09] MEDS: Nicotine Polacrilex 2 MG GUM BUCCAL ×5 (11:31→20:45)
--- NOTE | 2022-10-09 17:08 | HO.PSYCHPN ---
Subjective Subjective Date of Service: 10/09/22 Reason For Visit: Schizoaffective disorder Subjective Notes: Conditional Voluntary Healthcare Proxy: No Guardianship: No Medical Problems Affecting Mental Status: No Interim History: Reviewed in team. Pt appearing angry, preoccupied today. Spending time on the phone and in her room. Not wanting to engage much, dismissive, preoccupied, ?responding to IS. Mother visited, pt appearing calmer after her interaction with mother. Medication Compliance: Yes Side effects from medications: No Attending Groups: No Review of Systems Acute medical concerns: No Medical Review of Systems: unchanged Mental Status Exam Mental Status Exam Patient Appearance: Appropriate Patient Orientation: Person, Place, Time and Situation Level of Consciousness: Alert Patient Behavior: Talkative and Good Eye Contact Mood Description: Flat Affect Description: Flat Patient Cognition Impaired: No Ability to Follow Directions: Good Speech Pattern: Spontaneous Speech Memory Description: Intact Hallucinations: Auditory Delusions: Paranoid Ideation and Present Perceptual Disturbances: Depersonalization and Derealization Thought Process: Distracted Thought Content: positive for Circumstantial and positive for Suicidal Ideation (denies today) Depressive Symptoms: Diff. Making Decisions, Loss of Int. in Activity, Feelings of Worthlessness, Feelings of Guilt, Unhappiness, Increased Fatigue, Low Self Esteem and Difficulty Concentrating Judgement: Fair Diagnostics Vital Signs (24Hr): Vital Signs - 24 hr 10/08/22 18:00 10/09/22 06:00 Temperature 97.7 F 98.2 F Pulse Rate 74 80 Respiratory Rate 18 Blood Pressure 120/69 116/59 L Pulse Oximetry 98 98 Oxygen Delivery Method Room Air Room Air BMI result Body Mass Index 27.8 Labs 10/03/22 07:12 09/27/22 10:22 Medications Medications Current Medications Acetaminophen (Acetaminophen 325 Mg Tablet) 650 mg PO Q6H PRN PRN Reason: Headache/Pain Mild Scale (1-3) Al Hydroxide/Mg Hydroxide (Magnesium Hydrox/Alum Hydrox 30 Ml Oral.Susp) 30 ml PO Q6H PRN PRN Reason: Heartburn/Nausea Benztropine Mesylate (Benztropine Mesylate 1 Mg Tablet) 1 mg PO TID DUSTIN Last Admin: 10/09/22 14:05 Dose: 1 mg Hydroxyzine HCl (Hydroxyzine Hcl 25 Mg Tablet) 25 mg PO Q6H PRN PRN Reason: Anxiety Last Admin: 10/08/22 20:12 Dose: 25 mg Lamotrigine (Lamotrigine 100 Mg Tablet) 100 mg PO DAILY [facility] Last Admin: 10/09/22 08:17 Dose: 100 mg Lurasidone HCl (Lurasidone Hcl 20 Mg Tablet) 100 mg PO BEDTIME [facility] Last Admin: 10/08/22 20:12 Dose: 100 mg Magnesium Hydroxide (Milk Of Magnesia 30 Ml Oral.Susp) 30 ml PO DAILY PRN PRN Reason: Constipation Nicotine Polacrilex (Nicotine Polacrilex 2 Mg Gum) 2 mg BUCCAL Q2H PRN PRN Reason: Smoking Cessation Last Admin: 10/09/22 16:36 Dose: 2 mg Olanzapine (Olanzapine 2.5 Mg Tablet) 2.5 mg PO BEDTIME [facility] Last Admin: 10/08/22 20:12 Dose: 2.5 mg Pharmacy Consult (Consult Rx Perform Med Rec) 1 each MISCELLANE ONCE PRN PRN Reason: Consult order Senna (Sennosides 8.6 Mg Tablet) 17.2 mg PO BEDTIME [facility] Last Admin: 10/08/22 20:12 Dose: 17.2 mg Sertraline HCl (Sertraline Hcl 25 Mg Tablet) 75 mg PO DAILY [facility] Last Admin: 10/09/22 08:17 Dose: 75 mg Sodium Biphosphate/Sodium Phosphate (Sodium Phosphate,[place]-Dibasic 133 Ml Enema) 133 ml [place] ONCE PRN PRN Reason: Constipation Last Admin: 10/05/22 10:54 Dose: 133 ml Allergies Allergies Allergy/AdvReac Type Severity Reaction Status Date / Time aripiprazole [Abilify] Allergy Unknown tongue Verified 08/18/22 05:59 swells and gain weight risperidone [From Risperdal] AdvReac Unknown gain Verified 08/18/22 05:59 weight, and slurred speech cariprazine [From Vraylar] AdvReac Verified 08/18/22 05:59 haloperidol [From Haldol] AdvReac DYSTONIA Verified 08/18/22 05:59 paliperidone AdvReac dystonia Verified 08/18/22 05:59 trazodone AdvReac DYSTONIA Verified 08/18/22 05:59 Assessment & Plan Assessment & Plan (1) Schizoaffective disorder, bipolar type: Status: Acute Code(s): F25.0 - Schizoaffective disorder, bipolar type Plan 22 yo female, history of schizoaffective disorder, bipolar type, PTSD, polysubstance use with current reports of increase in depressive sx with SI, SIBS and difficulty in her new halfway in [place]. Plan: Collateral contact Increase Sertraline to 75 mg daily Encourage milieu involvement ?Caplyta, ?Clozaril trials-will discuss with pt, mother, Hermes's guardian. 10/01/22: Increase Latuda to 100 mg hs Application sent to [facility] 10/03/22: Amendment of community Jeancarlos initiated. Clozaril on hold for this reason until completed. 10/04 continue current treatment plan 10/05 continue current treatment plan 10/07/22: Court date 10/14/22 to possibly amend [facility]es[facility] and to begin Clozaril Continue current regime. 10/08/22: Tolerating recent increases of Latuda/Sertraline. Await court approval for potential Clozaril trial. 10/09/22: Continue current regime. Informed Consent: further education needed Reason for contiued inpatient stay Substantial Risk for: rapid decompensation Time Spent With Patient Time: Total time managing care of this patient today ____ minutes.
[2022-10-09 18:00] VITALS: BP 115/65; PULSE 75; RESP 18; TEMP 36.7; O2SAT 99
[2022-10-09] MEDS: Sennosides 8.6 MG TABLET 17.2 MG PO (20:06)
[2022-10-09] MEDS: Lurasidone HCl 20 MG TABLET 100 MG PO (20:06)
[2022-10-09] MEDS: OLANZapine 2.5 MG TABLET PO (20:06)
[2022-10-10 06:00] VITALS: BP 113/76; PULSE 65; RESP 14; TEMP 36.6; O2SAT 97
[2022-10-10] MEDS: Nicotine Polacrilex 2 MG GUM BUCCAL ×7 (06:20→20:43)
[2022-10-10] MEDS: lamoTRIgine 100 MG TABLET PO (08:16)
[2022-10-10] MEDS: Benztropine Mesylate 1 MG TABLET PO ×3 (08:16→20:39)
[2022-10-10] MEDS: Sertraline HCL 25 MG TABLET 75 MG PO (08:16)
--- NOTE | 2022-10-10 09:06 | P.PNPSI_ITS ---
Subjective Subjective Date of Service: 10/10/22 Reason For Visit: Schizoaffective disorder Subjective Notes: Conditional Voluntary and 3 Day Healthcare Proxy: No Guardianship: No Medical Problems Affecting Mental Status: No Interim History: Presenting with increased levels of visable psychosis, self-dialogues in the mirror, increase in lability, paranoia, anger. Signed TDN. Expressed anger over having to go to court for clozaril approval. Asking to leave immediately. Voices are telling her that family will be harmful to her. Olanzapine prn ordered, offered, pt declined. It will not help . Medication Compliance: Yes Side effects from medications: No Attending Groups: No Review of Systems Acute medical concerns: No Medical Review of Systems: unchanged Mental Status Exam Mental Status Exam Patient Appearance: Appropriate Patient Orientation: Person, Place, Time and Situation Level of Consciousness: Alert Patient Behavior: Guarded, Talkative, Avoidant, Distractible, Isolative and Good Eye Contact Mood Description: Angry Affect Description: Labile Patient Cognition Impaired: No Ability to Follow Directions: Fair Speech Pattern: Spontaneous Speech Memory Description: Intact Hallucinations: Auditory Delusions: Being Controlled, Paranoid Ideation and Present Perceptual Disturbances: Depersonalization and Derealization Thought Process: Distracted and Rumination Thought Content: positive for Circumstantial and positive for Suicidal Ideation (denies today) Depressive Symptoms: Increased Anxiety, Diff. Making Decisions, Increased Irritability, Difficulty Sleeping, Loss of Int. in Activity, Feelings of Worthlessness, Hopelessness, Feelings of Guilt, Unhappiness, Increased Fatigue, Low Self Esteem and Difficulty Concentrating Abnormal Motor Activity Signs and Symptoms: Restlessness Judgement: Poor Diagnostics Vital Signs (24Hr): Vital Signs - 24 hr 10/09/22 18:00 10/10/22 06:00 Temperature 98.1 F 97.9 F Pulse Rate 75 65 Respiratory Rate 18 14 Blood Pressure 115/65 113/76 Pulse Oximetry 99 97 Oxygen Delivery Method Room Air Room Air BMI result Body Mass Index 27.8 Labs 10/03/22 07:12 09/27/22 10:22 Medications Medications Current Medications Acetaminophen (Acetaminophen 325 Mg Tablet) 650 mg PO Q6H PRN PRN Reason: Headache/Pain Mild Scale (1-3) Al Hydroxide/Mg Hydroxide (Magnesium Hydrox/Alum Hydrox 30 Ml Oral.Susp) 30 ml PO Q6H PRN PRN Reason: Heartburn/Nausea Benztropine Mesylate (Benztropine Mesylate 1 Mg Tablet) 1 mg PO TID [facility] Last Admin: 10/10/22 08:16 Dose: 1 mg Hydroxyzine HCl (Hydroxyzine Hcl 25 Mg Tablet) 25 mg PO Q6H PRN PRN Reason: Anxiety Last Admin: 10/08/22 20:12 Dose: 25 mg Lamotrigine (Lamotrigine 100 Mg Tablet) 100 mg PO DAILY [facility] Last Admin: 10/10/22 08:16 Dose: 100 mg Lurasidone HCl (Lurasidone Hcl 20 Mg Tablet) 100 mg PO BEDTIME [facility] Last Admin: 10/09/22 20:06 Dose: 100 mg Magnesium Hydroxide (Milk Of Magnesia 30 Ml Oral.Susp) 30 ml PO DAILY PRN PRN Reason: Constipation Nicotine Polacrilex (Nicotine Polacrilex 2 Mg Gum) 2 mg BUCCAL Q2H PRN PRN Reason: Smoking Cessation Last Admin: 10/10/22 08:47 Dose: 2 mg Olanzapine (Olanzapine 2.5 Mg Tablet) 2.5 mg PO BEDTIME [facility] Last Admin: 10/09/22 20:06 Dose: 2.5 mg Pharmacy Consult (Consult Rx Perform Med Rec) 1 each MISCELLANE ONCE PRN PRN Reason: Consult order Senna (Sennosides 8.6 Mg Tablet) 17.2 mg PO BEDTIME [facility] Last Admin: 10/09/22 20:06 Dose: 17.2 mg Sertraline HCl (Sertraline Hcl 25 Mg Tablet) 75 mg PO DAILY [facility] Last Admin: 10/10/22 08:16 Dose: 75 mg Sodium Biphosphate/Sodium Phosphate (Sodium Phosphate,[place]-Dibasic 133 Ml Enema) 133 ml [place] ONCE PRN PRN Reason: Constipation Last Admin: 10/05/22 10:54 Dose: 133 ml Allergies Allergies Allergy/AdvReac Type Severity Reaction Status Date / Time aripiprazole [Abilify] Allergy Unknown tongue Verified 08/18/22 05:59 swells and gain weight risperidone [From Risperdal] AdvReac Unknown gain Verified 08/18/22 05:59 weight, and slurred speech cariprazine [From Vraylar] AdvReac Verified 08/18/22 05:59 haloperidol [From Haldol] AdvReac DYSTONIA Verified 08/18/22 05:59 paliperidone AdvReac dystonia Verified 08/18/22 05:59 trazodone AdvReac DYSTONIA Verified 08/18/22 05:59 Assessment & Plan Assessment & Plan (1) Schizoaffective disorder, bipolar type: Status: Acute Code(s): F25.0 - Schizoaffective disorder, bipolar type Plan 22 yo female, history of schizoaffective disorder, bipolar type, PTSD, polysubstance use with current reports of increase in depressive sx with SI, SIBS and difficulty in her new intermediate in [place]. Plan: Collateral contact Increase Sertraline to 75 mg daily Encourage milieu involvement ?Caplyta, ?Clozaril trials-will discuss with pt, mother, Hermes's guardian. 10/01/22: Increase Latuda to 100 mg hs Application sent to Cl[facility] 10/03/22: Amendment of community Jeancarlos initiated. Clozaril on hold for this reason until completed. 10/04 continue current treatment plan 10/05 continue current treatment plan 10/07/22: Court date 10/14/22 to possibly amend Hermes's and to begin Clozaril Continue current regime. 10/08/22: Tolerating recent increases of Latuda/Sertraline. Await court approval for potential Clozaril trial. 10/09/22: Continue current regime. 10/10/22: Olanzapine prn, Court to review Jeancarlos on 10/14/22. Patient educated on: medication risk/benefits and therapeutic strategies Informed Consent: further education needed Reason for contiued inpatient stay Substantial Risk for: harm to self, inability to function and rapid decompensation Time Spent With Patient Time: Total time managing care of this patient today 20 minutes.
--- NOTE | 2022-10-10 17:41 | PC.NURSE ---
Pt signed a Three Day Notice on Thursday10/10/2022 up on 10/16/2022.
[2022-10-10 18:00] VITALS: BP 128/97; PULSE 99; TEMP 37.6; O2SAT 99
[2022-10-10] MEDS: Sennosides 8.6 MG TABLET 17.2 MG PO (20:39)
[2022-10-10] MEDS: OLANZapine 2.5 MG TABLET PO (20:39)
[2022-10-10] MEDS: Lurasidone HCl 20 MG TABLET 100 MG PO (20:40)
[2022-10-11] MEDS: Nicotine Polacrilex 2 MG GUM BUCCAL ×5 (00:53→19:10)
[2022-10-11] MEDS: hydrOXYzine HCL 25 MG TABLET PO (04:24)
[2022-10-11 06:00] VITALS: BP 101/76; PULSE 116; RESP 16; TEMP 36.6; O2SAT 99
[2022-10-11] MEDS: Sertraline HCL 25 MG TABLET 75 MG PO (08:16)
[2022-10-11] MEDS: lamoTRIgine 100 MG TABLET PO (08:16)
[2022-10-11] MEDS: Benztropine Mesylate 1 MG TABLET PO ×3 (08:16→19:53)
--- NOTE | 2022-10-11 10:23 | P.PNPSI_ITS ---
Subjective Subjective Date of Service: 10/11/22 Reason For Visit: Schizoaffective disorder Subjective Notes: Conditional Voluntary Healthcare Proxy: No Guardianship: No Medical Problems Affecting Mental Status: No Interim History: Patient was seen and discussed in rounds today. Records and plans were reviewed. She continues to be psychotic, responding to internal stimuli. She continues to have bizarre behaviors. Sleeping has been poor. Clozaril is being considered waiting court order. She did not want to make any medication changes or be given anything for sleep. No changes were made today Review of Systems Review of Systems Yes Unobtainable due to mental status Mental Status Exam Mental Status Exam Narrative: In today's visit she is alert, minimally interactive. Appears to be responding to internal stimuli. Cognitively is preoccupied. No active SI. Judgment is marginal Diagnostics Vital Signs (24Hr): Vital Signs - 24 hr 10/10/22 18:00 10/11/22 06:00 Temperature 99.7 F 97.8 F Pulse Rate 99 116 H Respiratory Rate 16 Blood Pressure 128/97 H 101/76 Pulse Oximetry 99 99 Oxygen Delivery Method Room Air Room Air BMI result Body Mass Index 27.8 Labs 10/03/22 07:12 09/27/22 10:22 Medications Medications Current Medications Acetaminophen (Acetaminophen 325 Mg Tablet) 650 mg PO Q6H PRN PRN Reason: Headache/Pain Mild Scale (1-3) Al Hydroxide/Mg Hydroxide (Magnesium Hydrox/Alum Hydrox 30 Ml Oral.Susp) 30 ml PO Q6H PRN PRN Reason: Heartburn/Nausea Benztropine Mesylate (Benztropine Mesylate 1 Mg Tablet) 1 mg PO TID [facility] Last Admin: 10/11/22 08:16 Dose: 1 mg Hydroxyzine HCl (Hydroxyzine Hcl 25 Mg Tablet) 25 mg PO Q6H PRN PRN Reason: Anxiety Last Admin: 10/11/22 04:24 Dose: 25 mg Lamotrigine (Lamotrigine 100 Mg Tablet) 100 mg PO DAILY [facility] Last Admin: 10/11/22 08:16 Dose: 100 mg Lurasidone HCl (Lurasidone Hcl 20 Mg Tablet) 100 mg PO BEDTIME [facility] Last Admin: 10/10/22 20:40 Dose: 100 mg Magnesium Hydroxide (Milk Of Magnesia 30 Ml Oral.Susp) 30 ml PO DAILY PRN PRN Reason: Constipation Nicotine Polacrilex (Nicotine Polacrilex 2 Mg Gum) 2 mg BUCCAL Q2H PRN PRN Reason: Smoking Cessation Last Admin: 10/11/22 08:16 Dose: 2 mg Olanzapine (Olanzapine 2.5 Mg Tablet) 2.5 mg PO BEDTIME [facility] Last Admin: 10/10/22 20:39 Dose: 2.5 mg Olanzapine (Olanzapine 5 Mg Tablet) 5 mg PO Q4H PRN PRN Reason: psychotic agitation Pharmacy Consult (Consult Rx Perform Med Rec) 1 each MISCELLANE ONCE PRN PRN Reason: Consult order Senna (Sennosides 8.6 Mg Tablet) 17.2 mg PO BEDTIME [facility] Last Admin: 10/10/22 20:39 Dose: 17.2 mg Sertraline HCl (Sertraline Hcl 25 Mg Tablet) 75 mg PO DAILY [facility] Last Admin: 10/11/22 08:16 Dose: 75 mg Sodium Biphosphate/Sodium Phosphate (Sodium Phosphate,[place]-Dibasic 133 Ml Enema) 133 ml [place] ONCE PRN PRN Reason: Constipation Last Admin: 10/05/22 10:54 Dose: 133 ml Allergies Allergies Allergy/AdvReac Type Severity Reaction Status Date / Time aripiprazole [Abilify] Allergy Unknown tongue Verified 08/18/22 05:59 swells and gain weight risperidone [From Risperdal] AdvReac Unknown gain Verified 08/18/22 05:59 weight, and slurred speech cariprazine [From Vraylar] AdvReac Verified 08/18/22 05:59 haloperidol [From Haldol] AdvReac DYSTONIA Verified 08/18/22 05:59 paliperidone AdvReac dystonia Verified 08/18/22 05:59 trazodone AdvReac DYSTONIA Verified 08/18/22 05:59 Assessment & Plan Assessment & Plan (1) Schizoaffective disorder, bipolar type: Status: Acute Code(s): F25.0 - Schizoaffective disorder, bipolar type Plan 22 yo female, history of schizoaffective disorder, bipolar type, PTSD, polysubstance use with current reports of increase in depressive sx with SI, SIBS and difficulty in her new prison in [place]. Plan: Collateral contact Increase Sertraline to 75 mg daily Encourage milieu involvement ?Caplyta, ?Clozaril trials-will discuss with pt, mother, Hermes's guardian. 2/8/23: Increase Latuda to 100 mg hs Application sent to Cloz[facility] 10/03/22: Amendment of community Arshad initiated. Clozaril on hold for this reason until completed. 10/04 continue current treatment plan 10/05 continue current treatment plan 10/07/22: Court date 10/14/22 to possibly amend [facility] and to begin Clozaril Continue current regime. 10/08/22: Tolerating recent increases of Latuda/Sertraline. Await court approval for potential Clozaril trial. 10/09/22: Continue current regime. 10/10/22: Olanzapine prn, Court to review Arshad on 10/14/22. 08/10: Continue current regimen and plans/awaiting court order on 10/14 Reason for contiued inpatient stay Substantial Risk for: med/psych decompensation Time Spent With Patient Time: Total time managing care of this patient today ____ minutes.
[2022-10-11] MEDS: Sennosides 8.6 MG TABLET 17.2 MG PO (19:53)
[2022-10-11] MEDS: Lurasidone HCl 20 MG TABLET 100 MG PO (19:53)
[2022-10-11] MEDS: OLANZapine 2.5 MG TABLET PO (19:53)
[2022-10-12] MEDS: Benztropine Mesylate 1 MG TABLET PO ×3 (07:55→21:08)
[2022-10-12] MEDS: Sertraline HCL 25 MG TABLET 75 MG PO (07:55)
[2022-10-12] MEDS: lamoTRIgine 100 MG TABLET PO (07:55)
--- NOTE | 2022-10-12 08:23 | P.PNPSI_ITS ---
Subjective Subjective Date of Service: 10/12/22 Reason For Visit: Schizoaffective disorder Subjective Notes: Conditional Voluntary Healthcare Proxy: No Guardianship: No Medical Problems Affecting Mental Status: No Interim History: Patient was seen and discussed in rounds today. Records and plans were reviewed. She was asking for lactulose yesterday before I was leaving however it appears that she is having adequate bowel movements. She is not requesting it today. She continues to be somewhat guarded. Eating some of her meals. Sleeping adequately. No SI. No signs of psychosis. No changes were made today Review of Systems Review of Systems Yes all other systems are reviewed and are negative Mental Status Exam Mental Status Exam Narrative: In today's visit she is alert, minimally interactive. Appears to be responding to internal stimuli. Cognitively is preoccupied. No active SI. Judgment is marginal Diagnostics Vital Signs (24Hr): BMI result Body Mass Index 27.8 Labs 10/03/22 07:12 09/27/22 10:22 Medications Medications Current Medications Acetaminophen (Acetaminophen 325 Mg Tablet) 650 mg PO Q6H PRN PRN Reason: Headache/Pain Mild Scale (1-3) Al Hydroxide/Mg Hydroxide (Magnesium Hydrox/Alum Hydrox 30 Ml Oral.Susp) 30 ml PO Q6H PRN PRN Reason: Heartburn/Nausea Benztropine Mesylate (Benztropine Mesylate 1 Mg Tablet) 1 mg PO TID [facility] Last Admin: 10/12/22 07:55 Dose: 1 mg Hydroxyzine HCl (Hydroxyzine Hcl 25 Mg Tablet) 25 mg PO Q6H PRN PRN Reason: Anxiety Last Admin: 10/11/22 04:24 Dose: 25 mg Lamotrigine (Lamotrigine 100 Mg Tablet) 100 mg PO DAILY [facility] Last Admin: 10/12/22 07:55 Dose: 100 mg Lurasidone HCl (Lurasidone Hcl 20 Mg Tablet) 100 mg PO BEDTIME [facility] Last Admin: 10/11/22 19:53 Dose: 100 mg Magnesium Hydroxide (Milk Of Magnesia 30 Ml Oral.Susp) 30 ml PO DAILY PRN PRN Reason: Constipation Nicotine Polacrilex (Nicotine Polacrilex 2 Mg Gum) 2 mg BUCCAL Q2H PRN PRN Reason: Smoking Cessation Last Admin: 10/11/22 19:10 Dose: 2 mg Olanzapine (Olanzapine 2.5 Mg Tablet) 2.5 mg PO BEDTIME [facility] Last Admin: 10/11/22 19:53 Dose: 2.5 mg Olanzapine (Olanzapine 5 Mg Tablet) 5 mg PO Q4H PRN PRN Reason: psychotic agitation Pharmacy Consult (Consult Rx Perform Med Rec) 1 each MISCELLANE ONCE PRN PRN Reason: Consult order Senna (Sennosides 8.6 Mg Tablet) 17.2 mg PO BEDTIME [facility] Last Admin: 10/11/22 19:53 Dose: 17.2 mg Sertraline HCl (Sertraline Hcl 25 Mg Tablet) 75 mg PO DAILY [facility] Last Admin: 10/12/22 07:55 Dose: 75 mg Sodium Biphosphate/Sodium Phosphate (Sodium Phosphate,[place]-Dibasic 133 Ml Enema) 133 ml [place] ONCE PRN PRN Reason: Constipation Last Admin: 10/05/22 10:54 Dose: 133 ml Allergies Allergies Allergy/AdvReac Type Severity Reaction Status Date / Time aripiprazole [Abilify] Allergy Unknown tongue Verified 08/18/22 05:59 swells and gain weight risperidone [From Risperdal] AdvReac Unknown gain Verified 08/18/22 05:59 weight, and slurred speech cariprazine [From Vraylar] AdvReac Verified 08/18/22 05:59 haloperidol [From Haldol] AdvReac DYSTONIA Verified 08/18/22 05:59 paliperidone AdvReac dystonia Verified 08/18/22 05:59 trazodone AdvReac DYSTONIA Verified 08/18/22 05:59 Assessment & Plan Assessment & Plan (1) Schizoaffective disorder, bipolar type: Status: Acute Code(s): F25.0 - Schizoaffective disorder, bipolar type Plan 22 yo female, history of schizoaffective disorder, bipolar type, PTSD, polysubstance use with current reports of increase in depressive sx with SI, SIBS and difficulty in her new prison in [place]. Plan: Collateral contact Increase Sertraline to 75 mg daily Encourage milieu involvement ?Caplyta, ?Clozaril trials-will discuss with pt, mother, Hermes's guardian. 10/01/22: Increase Latuda to 100 mg hs Application sent to Clozar[facility] 10/03/22: Amendment of [facility] Jeancarlos initiated. Clozaril on hold for this reason until completed. 10/04 continue current treatment plan 10/05 continue current treatment plan 10/07/22: Court date 10/14/22 to possibly amend [facility] and to begin Clozaril Continue current regime. 10/08/22: Tolerating recent increases of Latuda/Sertraline. Await court approval for potential Clozaril trial. 10/09/22: Continue current regime. 10/10/22: Olanzapine prn, Court to review Jeancarlos on 10/14/22. 10/11: Continue current regimen and plans/awaiting court order on 10/14 10/12: Continue current regimen and plans Reason for contiued inpatient stay Substantial Risk for: med/psych decompensation Time Spent With Patient Time: Total time managing care of this patient today ____ minutes.
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
[2022-10-12] MEDS: Nicotine Polacrilex 2 MG GUM BUCCAL ×4 (13:21→21:13)
--- NOTE | 2022-10-12 20:22 | PC.NURSE ---
PT exited room naked, holding breasts and vagina and ran down hallway laughing. PT easily redirectable. Approximately 10 minutes later pt repeated the same behavior and was redirected. Reinforced reasons clothes must stay on, safety concerns. PT confirms understanding. Continue 5 minute checks at this time. If behaviors continues, will re-evaluate safety checks.
[2022-10-12] MEDS: Sennosides 8.6 MG TABLET 17.2 MG PO (21:07)
[2022-10-12] MEDS: OLANZapine 5 MG TABLET PO (21:07)
[2022-10-12] MEDS: Lurasidone HCl 20 MG TABLET 100 MG PO (21:07)
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
[2022-10-12] MEDS: hydrOXYzine HCL 25 MG TABLET PO (22:33)
[2022-10-13] MEDS: lamoTRIgine 100 MG TABLET PO (09:27)
[2022-10-13] MEDS: Sertraline HCL 25 MG TABLET 75 MG PO (09:27)
[2022-10-13] MEDS: Benztropine Mesylate 1 MG TABLET PO ×3 (09:27→20:53)
[2022-10-13 09:30] VITALS: RESP 16
--- NOTE | 2022-10-13 09:49 | P.PNPSI_ITS ---
Subjective Subjective Date of Service: 10/13/22 Reason For Visit: Schizoaffective disorder Subjective Notes: Conditional Voluntary Healthcare Proxy: No Guardianship: No Medical Problems Affecting Mental Status: No Interim History: Patient was seen and discussed in rounds today. Records and plans were reviewed. Labs were reviewed. Slight anemia present. She continues to be isolative and mostly in her room. She does come out some. Some inappropriate affect, laughter. She is and elopement risk. Eating very little. She had 2 episodes of coming out naked. She has no complaints. No side effects. No changes were made today Review of Systems Review of Systems Yes all other systems are reviewed and are negative Diagnostics Vital Signs (24Hr): Vital Signs - 24 hr 10/13/22 09:30 Respiratory Rate 16 BMI result Body Mass Index 27.8 Labs 10/03/22 07:12 09/27/22 10:22 Medications Medications Current Medications Acetaminophen (Acetaminophen 325 Mg Tablet) 650 mg PO Q6H PRN PRN Reason: Headache/Pain Mild Scale (1-3) Al Hydroxide/Mg Hydroxide (Magnesium Hydrox/Alum Hydrox 30 Ml Oral.Susp) 30 ml PO Q6H PRN PRN Reason: Heartburn/Nausea Benztropine Mesylate (Benztropine Mesylate 1 Mg Tablet) 1 mg PO TID [facility] Last Admin: 10/13/22 09:27 Dose: 1 mg Hydroxyzine HCl (Hydroxyzine Hcl 25 Mg Tablet) 25 mg PO Q6H PRN PRN Reason: Anxiety Last Admin: 10/12/22 22:33 Dose: 25 mg Lamotrigine (Lamotrigine 100 Mg Tablet) 100 mg PO DAILY [facility] Last Admin: 10/13/22 09:27 Dose: 100 mg Lurasidone HCl (Lurasidone Hcl 20 Mg Tablet) 100 mg PO BEDTIME [facility] Last Admin: 10/12/22 21:07 Dose: 100 mg Magnesium Hydroxide (Milk Of Magnesia 30 Ml Oral.Susp) 30 ml PO DAILY PRN PRN Reason: Constipation Nicotine Polacrilex (Nicotine Polacrilex 2 Mg Gum) 2 mg BUCCAL Q2H PRN PRN Reason: Smoking Cessation Last Admin: 10/12/22 21:13 Dose: 2 mg Olanzapine (Olanzapine 2.5 Mg Tablet) 2.5 mg PO BEDTIME [facility] Last Admin: 10/12/22 21:11 Dose: Not Given Olanzapine (Olanzapine 5 Mg Tablet) 5 mg PO Q4H PRN PRN Reason: psychotic agitation Last Admin: 10/12/22 21:07 Dose: 5 mg Pharmacy Consult (Consult Rx Perform Med Rec) 1 each MISCELLANE ONCE PRN PRN Reason: Consult order Senna (Sennosides 8.6 Mg Tablet) 17.2 mg PO BEDTIME [facility] Last Admin: 10/12/22 21:07 Dose: 17.2 mg Sertraline HCl (Sertraline Hcl 25 Mg Tablet) 75 mg PO DAILY [facility] Last Admin: 10/13/22 09:27 Dose: 75 mg Sodium Biphosphate/Sodium Phosphate (Sodium Phosphate,[place]-Dibasic 133 Ml Enema) 133 ml [place] ONCE PRN PRN Reason: Constipation Last Admin: 10/05/22 10:54 Dose: 133 ml Allergies Allergies Allergy/AdvReac Type Severity Reaction Status Date / Time aripiprazole [Abilify] Allergy Unknown tongue Verified 08/18/22 05:59 swells and gain weight risperidone [From Risperdal] AdvReac Unknown gain Verified 08/18/22 05:59 weight, and slurred speech cariprazine [From Vraylar] AdvReac Verified 08/18/22 05:59 haloperidol [From Haldol] AdvReac DYSTONIA Verified 08/18/22 05:59 paliperidone AdvReac dystonia Verified 08/18/22 05:59 trazodone AdvReac DYSTONIA Verified 08/18/22 05:59 Assessment & Plan Assessment & Plan (1) Schizoaffective disorder, bipolar type: Status: Acute Code(s): F25.0 - Schizoaffective disorder, bipolar type Plan 22 yo female, history of schizoaffective disorder, bipolar type, PTSD, polysubstance use with current reports of increase in depressive sx with SI, SIBS and difficulty in her new [facility] in [place]. Plan: Collateral contact Increase Sertraline to 75 mg daily Encourage milieu involvement ?Caplyta, ?Clozaril trials-will discuss with pt, mother, Hermes's guardian. 10/01/22: Increase Latuda to 100 mg hs Application sent to Cloz[facility] 10/03/22: Amendment of community Jeancarlos initiated. Clozaril on hold for this reason until completed. 10/04 continue current treatment plan 10/05 continue current treatment plan 10/07/22: Court date 10/14/22 to possibly amend [facility] and to begin Clozaril Continue current regime. 10/08/22: Tolerating recent increases of Latuda/Sertraline. Await court approval for potential Clozaril trial. 10/09/22: Continue current regime. 10/10/22: Olanzapine prn, Court to review Arshad on 10/14/22. 10/11: Continue current regimen and plans/awaiting court order on 10/14 10/12: Continue current regimen and plans 10/13: Continue current regimen and plans Reason for contiued inpatient stay Substantial Risk for: med/psych decompensation Time Spent With Patient Time: Total time managing care of this patient today ____ minutes.
[2022-10-13] MEDS: Nicotine Polacrilex 2 MG GUM BUCCAL ×4 (12:01→18:11)
[2022-10-13 18:00] VITALS: BP 96/60; PULSE 94; RESP 18; TEMP 37; O2SAT 98
[2022-10-13] MEDS: Lurasidone HCl 20 MG TABLET 100 MG PO (20:53)
[2022-10-13] MEDS: OLANZapine 2.5 MG TABLET PO (20:54)
[2022-10-13] MEDS: hydrOXYzine HCL 25 MG TABLET PO (20:54)
[2022-10-13] MEDS: Sennosides 8.6 MG TABLET 17.2 MG PO (20:54)
[2022-10-14 08:15] VITALS: RESP 16
[2022-10-14] MEDS: lamoTRIgine 100 MG TABLET PO (08:18)
[2022-10-14] MEDS: Benztropine Mesylate 1 MG TABLET PO ×3 (08:18→20:55)
[2022-10-14] MEDS: Sertraline HCL 25 MG TABLET 75 MG PO (08:18)
--- NOTE | 2022-10-14 10:48 | P.PNPSI_ITS ---
Subjective Subjective Date of Service: 10/14/22 Reason For Visit: Schizoaffective disorder Subjective Notes: 3 Day Healthcare Proxy: No Guardianship: Yes Medical Problems Affecting Mental Status: No Interim History: Difficult weekend, responding to internal stimuli- voices telling her to go into the milieu naked, which she did x 2. Elopement risk, three day notice in. Court today for pt's [facility]ancarlos[facility] approved this evening. CBCD, ANC ordered so pt may begin Medication Compliance: Yes Side effects from medications: No Attending Groups: No Review of Systems Acute medical concerns: No Medical Review of Systems: unchanged Mental Status Exam Mental Status Exam Patient Appearance: Appropriate Patient Orientation: Person, Place, Time and Situation Level of Consciousness: Alert Patient Behavior: Talkative and Cooperative Mood Description: Labile Affect Description: Labile Patient Cognition Impaired: No Ability to Follow Directions: Fair Speech Pattern: Spontaneous Speech Memory Description: Episodic Impaired Hallucinations: Auditory Delusions: Paranoid Ideation, Grandiose and Present Perceptual Disturbances: Depersonalization and Derealization Thought Process: Distracted and Rumination Thought Content: positive for Circumstantial, positive for Perseveration and positive for Thought Blocking Depressive Symptoms: Increased Anxiety, Increased Irritability and Crying Spells Judgement: Poor Diagnostics Vital Signs (24Hr): Vital Signs - 24 hr 10/13/22 18:00 10/14/22 08:15 Temperature 98.6 F Pulse Rate 94 Respiratory Rate 18 16 Blood Pressure 96/60 Pulse Oximetry 98 Oxygen Delivery Method Room Air BMI result Body Mass Index 27.8 Labs 10/03/22 07:12 09/27/22 10:22 Medications Medications Current Medications Acetaminophen (Acetaminophen 325 Mg Tablet) 650 mg PO Q6H PRN PRN Reason: Headache/Pain Mild Scale (1-3) Al Hydroxide/Mg Hydroxide (Magnesium Hydrox/Alum Hydrox 30 Ml Oral.Susp) 30 ml PO Q6H PRN PRN Reason: Heartburn/Nausea Benztropine Mesylate (Benztropine Mesylate 1 Mg Tablet) 1 mg PO TID [facility] Last Admin: 10/14/22 08:18 Dose: 1 mg Hydroxyzine HCl (Hydroxyzine Hcl 25 Mg Tablet) 25 mg PO Q6H PRN PRN Reason: Anxiety Last Admin: 10/13/22 20:54 Dose: 25 mg Lamotrigine (Lamotrigine 100 Mg Tablet) 100 mg PO DAILY [facility] Last Admin: 10/14/22 08:18 Dose: 100 mg Lurasidone HCl (Lurasidone Hcl 20 Mg Tablet) 100 mg PO BEDTIME [facility] Last Admin: 10/13/22 20:53 Dose: 100 mg Magnesium Hydroxide (Milk Of Magnesia 30 Ml Oral.Susp) 30 ml PO DAILY PRN PRN Reason: Constipation Nicotine Polacrilex (Nicotine Polacrilex 2 Mg Gum) 2 mg BUCCAL Q2H PRN PRN Reason: Smoking Cessation Last Admin: 10/13/22 18:11 Dose: 2 mg Olanzapine (Olanzapine 2.5 Mg Tablet) 2.5 mg PO BEDTIME [facility] Last Admin: 10/13/22 20:54 Dose: 2.5 mg Olanzapine (Olanzapine 5 Mg Tablet) 5 mg PO Q4H PRN PRN Reason: psychotic agitation Last Admin: 10/12/22 21:07 Dose: 5 mg Pharmacy Consult (Consult Rx Perform Med Rec) 1 each MISCELLANE ONCE PRN PRN Reason: Consult order Senna (Sennosides 8.6 Mg Tablet) 17.2 mg PO BEDTIME [facility] Last Admin: 10/13/22 20:54 Dose: 17.2 mg Sertraline HCl (Sertraline Hcl 25 Mg Tablet) 75 mg PO DAILY [facility] Last Admin: 10/14/22 08:18 Dose: 75 mg Sodium Biphosphate/Sodium Phosphate (Sodium Phosphate,[place]-Dibasic 133 Ml Enema) 133 ml [place] ONCE PRN PRN Reason: Constipation Last Admin: 10/05/22 10:54 Dose: 133 ml Allergies Allergies Allergy/AdvReac Type Severity Reaction Status Date / Time aripiprazole [Abilify] Allergy Unknown tongue Verified 08/18/22 05:59 swells and gain weight risperidone [From Risperdal] AdvReac Unknown gain Verified 08/18/22 05:59 weight, and slurred speech cariprazine [From Vraylar] AdvReac Verified 08/18/22 05:59 haloperidol [From Haldol] AdvReac DYSTONIA Verified 08/18/22 05:59 paliperidone AdvReac dystonia Verified 08/18/22 05:59 trazodone AdvReac DYSTONIA Verified 08/18/22 05:59 Assessment & Plan Assessment & Plan (1) Schizoaffective disorder, bipolar type: Status: Acute Code(s): F25.0 - Schizoaffective disorder, bipolar type Plan 22 yo female, history of schizoaffective disorder, bipolar type, PTSD, polysubstance use with current reports of increase in depressive sx with SI, SIBS and difficulty in her new intermediate in [place]. Plan: Collateral contact Increase Sertraline to 75 mg daily Encourage milieu involvement ?Caplyta, ?Clozaril trials-will discuss with pt, mother, Hermes's guardian. 10/01/22: Increase Latuda to 100 mg hs Application sent to Cloz[facility] 10/03/22: Amendment of community Arshad initiated. Clozaril on hold for this reason until completed. 10/04 continue current treatment plan 10/05 continue current treatment plan 10/07/22: Court date 10/14/22 to possibly amend [facility] and to begin Clozaril Continue current regime. 10/08/22: Tolerating recent increases of Latuda/Sertraline. Await court approval for potential Clozaril trial. 10/09/22: Continue current regime. 10/10/22: Olanzapine prn, Court to review Arshad on 10/14/22. 10/11: Continue current regimen and plans/awaiting court order on 10/14 10/12: Continue current regimen and plans 10/13: Continue current regimen and plans 10/14/22: CBCD, ANC to begin Clozapine 10/15. Patient educated on: medication risk/benefits Informed Consent: further education needed Reason for contiued inpatient stay Substantial Risk for: rapid decompensation Time Spent With Patient Time: Total time managing care of this patient today ____ minutes.
[2022-10-14] MEDS: Nicotine Polacrilex 2 MG GUM BUCCAL ×4 (11:26→20:59)
[2022-10-14] MEDS: OLANZapine 5 MG TABLET PO (15:09)
[2022-10-14] MEDS: OLANZapine 2.5 MG TABLET PO (20:56)
[2022-10-14] MEDS: Lurasidone HCl 20 MG TABLET 100 MG PO (20:56)
[2022-10-14] MEDS: hydrOXYzine HCL 25 MG TABLET PO (20:56)
[2022-10-14] MEDS: Sennosides 8.6 MG TABLET 17.2 MG PO (20:56)
[2022-10-15] MEDS: Sertraline HCL 25 MG TABLET 75 MG PO (08:00)
[2022-10-15] MEDS: Benztropine Mesylate 1 MG TABLET PO ×3 (08:00→20:46)
[2022-10-15] MEDS: lamoTRIgine 100 MG TABLET PO (08:00)
[2022-10-15 09:01] LABS: MANUAL DIFF FLAG NO
[2022-10-15 09:05] LABS: Neut%MD 41.2 %; Neutrophils Absolute Auto 1.9 x10*3/uL (2.0-8.3); WBCANC 4.6 X10*3/uL
[2022-10-15 09:06] LABS: Basophils Percent Auto 0.6 % (0-2); Eosinophils Absolute Auto 0.1 X10*3/uL (0.0-0.4); Eosinophils Percent Auto 2.7 % (0-4); Hematocrit 33.7 % (37.0-47.0); Hemoglobin 11.7 g/dl (12.0-16.0); Imm Gran Abs Auto 0.01 X10*3/uL (0.00-0.03); Imm Gran Pct Auto 0.2 % (0.0-0.4); Lymphocytes Absolute Auto 2.2 X10*3/uL (1.2-4.9); Lymphocytes Percent Auto 45.4 % (20-40); Mean Corpuscular HGB Conc 34.7 g/dl (31.0-35.0); Mean Corpuscular Hemoglobin 31.6 pg (27.0-33.0); Mean Corpuscular Volume 91.1 fL (80.0-98.0); Mean Platelet Volume 11.2 fL (9.4-12.3); Monocytes Absolute Auto 0.5 X10*3/uL (0.1-1.2); Monocytes Percent Auto 9.3 % (2-11); Neutrophils Percent Auto 41.8 % (45-73); Platelet Count 176 X10*3/uL (160-400); Red Cell Distribution Width 11.6 % (11.0-16.0); White Blood Count 4.9 X10*3/uL (4.8-10.8)
[2022-10-15] MEDS: Nicotine Polacrilex 2 MG GUM BUCCAL ×4 (12:21→20:54)
--- NOTE | 2022-10-15 15:17 | P.PNPSI_ITS ---
Subjective Subjective Date of Service: 10/15/22 Reason For Visit: Schizoaffective disorder Subjective Notes: 3 Day Healthcare Proxy: No Guardianship: Yes Medical Problems Affecting Mental Status: No Interim History: Retracted three day notice. Clozaril to begin this evening. Responding to internal stimuli. Denies questions regarding initiation of new medication Medication Compliance: Yes Side effects from medications: No Attending Groups: No Review of Systems Acute medical concerns: No Medical Review of Systems: unchanged Mental Status Exam Mental Status Exam Patient Appearance: Appropriate Patient Orientation: Person, Place, Time and Situation Level of Consciousness: Alert Patient Behavior: Talkative and Cooperative Mood Description: Labile Affect Description: Labile Patient Cognition Impaired: No Ability to Follow Directions: Fair Speech Pattern: Spontaneous Speech Memory Description: Episodic Impaired Hallucinations: Auditory Delusions: Paranoid Ideation, Grandiose and Present Perceptual Disturbances: Depersonalization and Derealization Thought Process: Distracted and Rumination Thought Content: positive for Circumstantial, positive for Perseveration and positive for Thought Blocking Depressive Symptoms: Increased Anxiety, Increased Irritability and Crying Spells Judgement: Poor Diagnostics Vital Signs (24Hr): BMI result Body Mass Index 27.8 Labs 10/15/22 08:28 09/27/22 10:22 Labs: Laboratory Results - last 48 hr 10/15/22 10/15/22 08:28 08:28 WBC 4.9 RBC 3.70 L Hgb 11.7 L Hct 33.7 L MCV 91.1 MCH 31.6 MCHC 34.7 RDW 11.6 Plt Count 176 D MPV 11.2 Immature Gran % (Auto) 0.2 Neut % (Auto) 41.8 L Lymph % (Auto) 45.4 H Cole % (Auto) 9.3 Eos % (Auto) 2.7 Baso % (Auto) 0.6 Lymph # (Auto) 2.2 Cole # (Auto) 0.5 Eos # (Auto) 0.1 Baso # (Auto) 0.0 Abs Immat Gran (auto) 0.01 Absolute Neuts (auto) 2.0 1.9 L Absolute Nucleated RBC 0.000 Nucleated RBC % (auto) 0.0 Medications Medications Current Medications Acetaminophen (Acetaminophen 325 Mg Tablet) 650 mg PO Q6H PRN PRN Reason: Headache/Pain Mild Scale (1-3) Al Hydroxide/Mg Hydroxide (Magnesium Hydrox/Alum Hydrox 30 Ml Oral.Susp) 30 ml PO Q6H PRN PRN Reason: Heartburn/Nausea Benztropine Mesylate (Benztropine Mesylate 1 Mg Tablet) 1 mg PO TID [facility] Last Admin: 10/15/22 14:08 Dose: 1 mg Clozapine (Clozapine 25 Mg Tablet) 25 mg PO BEDTIME [facility] Hydroxyzine HCl (Hydroxyzine Hcl 25 Mg Tablet) 25 mg PO Q6H PRN PRN Reason: Anxiety Last Admin: 10/14/22 20:56 Dose: 25 mg Lamotrigine (Lamotrigine 100 Mg Tablet) 100 mg PO DAILY [facility] Last Admin: 10/15/22 08:00 Dose: 100 mg Lurasidone HCl (Lurasidone Hcl 20 Mg Tablet) 100 mg PO BEDTIME [facility] Last Admin: 10/14/22 20:56 Dose: 100 mg Magnesium Hydroxide (Milk Of Magnesia 30 Ml Oral.Susp) 30 ml PO DAILY PRN PRN Reason: Constipation Nicotine Polacrilex (Nicotine Polacrilex 2 Mg Gum) 2 mg BUCCAL Q2H PRN PRN Reason: Smoking Cessation Last Admin: 10/15/22 14:12 Dose: 2 mg Olanzapine (Olanzapine 2.5 Mg Tablet) 2.5 mg PO BEDTIME [facility] Last Admin: 10/14/22 20:56 Dose: 2.5 mg Olanzapine (Olanzapine 5 Mg Tablet) 5 mg PO Q4H PRN PRN Reason: psychotic agitation Last Admin: 10/14/22 15:09 Dose: 5 mg Pharmacy Consult (Consult Rx Perform Med Rec) 1 each MISCELLANE ONCE PRN PRN Reason: Consult order Senna (Sennosides 8.6 Mg Tablet) 17.2 mg PO BEDTIME [facility] Last Admin: 10/14/22 20:56 Dose: 17.2 mg Sertraline HCl (Sertraline Hcl 25 Mg Tablet) 75 mg PO DAILY [facility] Last Admin: 10/15/22 08:00 Dose: 75 mg Sodium Biphosphate/Sodium Phosphate (Sodium Phosphate,Cole-Dibasic 133 Ml Enema) 133 ml ID ONCE PRN PRN Reason: Constipation Last Admin: 10/05/22 10:54 Dose: 133 ml Allergies Allergies Allergy/AdvReac Type Severity Reaction Status Date / Time aripiprazole [Abilify] Allergy Unknown tongue Verified 08/18/22 05:59 swells and gain weight risperidone [From Risperdal] AdvReac Unknown gain Verified 08/18/22 05:59 weight, and slurred speech cariprazine [From Vraylar] AdvReac Verified 08/18/22 05:59 haloperidol [From Haldol] AdvReac DYSTONIA Verified 08/18/22 05:59 paliperidone AdvReac dystonia Verified 08/18/22 05:59 trazodone AdvReac DYSTONIA Verified 08/18/22 05:59 Assessment & Plan Assessment & Plan (1) Schizoaffective disorder, bipolar type: Status: Acute Code(s): F25.0 - Schizoaffective disorder, bipolar type Plan 22 yo female, history of schizoaffective disorder, bipolar type, PTSD, polysubstance use with current reports of increase in depressive sx with SI, SIBS and difficulty in her new [facility] in [place]. Plan: Collateral contact Increase Sertraline to 75 mg daily Encourage milieu involvement ?Caplyta, ?Clozaril trials-will discuss with pt, mother, Hermes's guardian. 10/01/22: Increase Latuda to 100 mg hs Application sent to Cloz[facility]il [facility] 10/03/22: Amendment of community [facility] initiated. Clozaril on hold for this reason until completed. 10/04 continue current treatment plan 10/05 continue current treatment plan 10/07/22: Court date 10/14/22 to possibly amend [facility] and to begin Clozaril Continue current regime. 10/08/22: Tolerating recent increases of Latuda/Sertraline. Await court approval for potential Clozaril trial. 10/09/22: Continue current regime. 10/10/22: Olanzapine prn, Court to review Arshad on 10/14/22. 10/11: Continue current regimen and plans/awaiting court order on 10/14 10/12: Continue current regimen and plans 10/13: Continue current regimen and plans 10/15/22: Clozapine 25 mg hs Informed Consent: further education needed Reason for contiued inpatient stay Substantial Risk for: inability to function and rapid decompensation Time Spent With Patient Time: Total time managing care of this patient today ____ minutes.
[2022-10-15] MEDS: OLANZapine 5 MG TABLET PO (16:54)
[2022-10-15 18:00] VITALS: BP 108/55; PULSE 75; TEMP 37.3; O2SAT 97
[2022-10-15] MEDS: OLANZapine 2.5 MG TABLET PO (20:46)
[2022-10-15] MEDS: Lurasidone HCl 20 MG TABLET 100 MG PO (20:46)
[2022-10-15] MEDS: Sennosides 8.6 MG TABLET 17.2 MG PO (20:46)
[2022-10-15] MEDS: cloZAPine ODT 25 MG TAB.RAPDIS PO (20:46)
[2022-10-16] MEDS: Sertraline HCL 25 MG TABLET 75 MG PO (08:10)
[2022-10-16] MEDS: lamoTRIgine 100 MG TABLET PO (08:10)
[2022-10-16] MEDS: Benztropine Mesylate 1 MG TABLET PO ×3 (08:10→20:22)
[2022-10-16] MEDS: hydrOXYzine HCL 25 MG TABLET PO (11:06)
[2022-10-16] MEDS: Nicotine Polacrilex 2 MG GUM BUCCAL ×6 (11:06→22:23)
[2022-10-16 11:10] VITALS: BP 128/85; PULSE 123; RESP 16; TEMP 36.5; O2SAT 98
--- NOTE | 2022-10-16 17:06 | HO.PSYCHPN ---
Subjective Subjective Date of Service: 10/16/22 Reason For Visit: Schizoaffective disorder Subjective Notes: Conditional Voluntary Healthcare Proxy: No Guardianship: Yes Medical Problems Affecting Mental Status: No Interim History: Upset, asked mom to come in urgently. Reports SE from clozapine- like taking xanax at a green party -reports feeling tired, slowed, mild twitching, ?tongue swelling, jerky mvts. I am willing to try this for 2 weeks . Responded to support. Seen later in the day- responding to internal stimuli, happy, laughing, denies any further side effects from the medication. Medication Compliance: Yes Side effects from medications: No Attending Groups: No Review of Systems Acute medical concerns: No Medical Review of Systems: unchanged Mental Status Exam Mental Status Exam Patient Appearance: Appropriate Patient Orientation: Person, Place, Time and Situation Level of Consciousness: Alert Patient Behavior: Talkative and Cooperative Mood Description: Labile Affect Description: Labile Patient Cognition Impaired: No Ability to Follow Directions: Fair Speech Pattern: Spontaneous Speech Memory Description: Episodic Impaired Hallucinations: Auditory Delusions: Paranoid Ideation, Grandiose and Present Perceptual Disturbances: Depersonalization and Derealization Thought Process: Distracted and Rumination Thought Content: positive for Circumstantial, positive for Perseveration and positive for Thought Blocking Depressive Symptoms: Increased Anxiety, Increased Irritability and Crying Spells Judgement: Poor Diagnostics Vital Signs (24Hr): Vital Signs - 24 hr 10/15/22 18:00 10/16/22 11:10 Temperature 99.2 F 97.7 F Pulse Rate 75 123 H Respiratory Rate 16 Blood Pressure 108/55 L 128/85 Pulse Oximetry 97 98 Oxygen Delivery Method Room Air Room Air BMI result Body Mass Index 27.8 Labs 10/15/22 08:28 09/27/22 10:22 Labs: Laboratory Results - last 48 hr 10/15/22 10/15/22 08:28 08:28 WBC 4.9 RBC 3.70 L Hgb 11.7 L Hct 33.7 L MCV 91.1 MCH 31.6 MCHC 34.7 RDW 11.6 Plt Count 176 D MPV 11.2 Immature Gran % (Auto) 0.2 Neut % (Auto) 41.8 L Lymph % (Auto) 45.4 H [place] % (Auto) 9.3 Eos % (Auto) 2.7 Baso % (Auto) 0.6 Lymph # (Auto) 2.2 [place] # (Auto) 0.5 Eos # (Auto) 0.1 Baso # (Auto) 0.0 Abs Immat Gran (auto) 0.01 Absolute Neuts (auto) 2.0 1.9 L Absolute Nucleated RBC 0.000 Nucleated RBC % (auto) 0.0 Medications Medications Current Medications Acetaminophen (Acetaminophen 325 Mg Tablet) 650 mg PO Q6H PRN PRN Reason: Headache/Pain Mild Scale (1-3) Al Hydroxide/Mg Hydroxide (Magnesium Hydrox/Alum Hydrox 30 Ml Oral.Susp) 30 ml PO Q6H PRN PRN Reason: Heartburn/Nausea Benztropine Mesylate (Benztropine Mesylate 1 Mg Tablet) 1 mg PO TID [facility] Last Admin: 10/16/22 14:17 Dose: 1 mg Clozapine (Clozapine Odt 25 Mg Tab.Rapdis) 25 mg PO BEDTIME [facility] Hydroxyzine HCl (Hydroxyzine Hcl 25 Mg Tablet) 25 mg PO Q6H PRN PRN Reason: Anxiety Last Admin: 10/16/22 11:06 Dose: 25 mg Lamotrigine (Lamotrigine 100 Mg Tablet) 100 mg PO DAILY [facility] Last Admin: 10/16/22 08:10 Dose: 100 mg Lurasidone HCl (Lurasidone Hcl 80 Mg Tablet) 80 mg PO BEDTIME [facility] Magnesium Hydroxide (Milk Of Magnesia 30 Ml Oral.Susp) 30 ml PO DAILY PRN PRN Reason: Constipation Nicotine Polacrilex (Nicotine Polacrilex 2 Mg Gum) 2 mg BUCCAL Q2H PRN PRN Reason: Smoking Cessation Last Admin: 10/16/22 15:38 Dose: 2 mg Olanzapine (Olanzapine 5 Mg Tablet) 5 mg PO Q4H PRN PRN Reason: psychotic agitation Last Admin: 10/15/22 16:54 Dose: 5 mg Pharmacy Consult (Consult Rx Perform Med Rec) 1 each MISCELLANE ONCE PRN PRN Reason: Consult order Senna (Sennosides 8.6 Mg Tablet) 17.2 mg PO BEDTIME [facility] Last Admin: 10/15/22 20:46 Dose: 17.2 mg Sertraline HCl (Sertraline Hcl 25 Mg Tablet) 75 mg PO DAILY [facility] Last Admin: 10/16/22 08:10 Dose: 75 mg Sodium Biphosphate/Sodium Phosphate (Sodium Phosphate,[place]-Dibasic 133 Ml Enema) 133 ml ID ONCE PRN PRN Reason: Constipation Last Admin: 10/05/22 10:54 Dose: 133 ml Allergies Allergies Allergy/AdvReac Type Severity Reaction Status Date / Time aripiprazole [Abilify] Allergy Unknown tongue Verified 08/18/22 05:59 swells and gain weight risperidone [From Risperdal] AdvReac Unknown gain Verified 08/18/22 05:59 weight, and slurred speech cariprazine [From Vraylar] AdvReac Verified 08/18/22 05:59 haloperidol [From Haldol] AdvReac DYSTONIA Verified 08/18/22 05:59 paliperidone AdvReac dystonia Verified 08/18/22 05:59 trazodone AdvReac DYSTONIA Verified 08/18/22 05:59 Assessment & Plan Assessment & Plan (1) Schizoaffective disorder, bipolar type: Status: Acute Code(s): F25.0 - Schizoaffective disorder, bipolar type Plan 22 yo female, history of schizoaffective disorder, bipolar type, PTSD, polysubstance use with current reports of increase in depressive sx with SI, SIBS and difficulty in her new [facility] in [place]. Plan: Collateral contact Increase Sertraline to 75 mg daily Encourage milieu involvement ?Caplyta, ?Clozaril trials-will discuss with pt, mother, Hermes's guardian. 10/01/22: Increase Latuda to 100 mg hs Application sent to Cl[facility] 10/03/22: Amendment of community [facility]sh[facility] initiated. Clozaril on hold for this reason until completed. 10/04 continue current treatment plan 10/05 continue current treatment plan 10/07/22: Court date 10/14/22 to possibly amend [facility] and to begin Clozaril Continue current regime. 10/08/22: Tolerating recent increases of Latuda/Sertraline. Await court approval for potential Clozaril trial. 10/09/22: Continue current regime. 10/10/22: Olanzapine prn, Court to review Arshad on 10/14/22. 10/11: Continue current regimen and plans/awaiting court order on 10/14 10/12: Continue current regimen and plans 10/13: Continue current regimen and plans 10/16/22: Continue Clozapine 25 mg hs Discontinue Olanzapine scheduled Decrease Latuda to 80 mg Informed Consent: understands and further education needed Reason for contiued inpatient stay Substantial Risk for: rapid decompensation Time Spent With Patient Time: Total time managing care of this patient today ____ minutes.
[2022-10-16 18:00] VITALS: BP 125/81; PULSE 99; TEMP 36.6
[2022-10-16] MEDS: Sennosides 8.6 MG TABLET 17.2 MG PO (20:21)
[2022-10-16] MEDS: Lurasidone HCl 80 MG TABLET PO (20:21)
[2022-10-16] MEDS: cloZAPine ODT 25 MG TAB.RAPDIS PO (20:22)
[2022-10-17] MEDS: Sertraline HCL 25 MG TABLET 75 MG PO (08:22)
[2022-10-17] MEDS: Benztropine Mesylate 1 MG TABLET PO ×3 (08:23→20:36)
[2022-10-17] MEDS: lamoTRIgine 100 MG TABLET PO (08:23)
[2022-10-17] MEDS: Nicotine Polacrilex 2 MG GUM BUCCAL ×5 (11:29→20:38)
--- NOTE | 2022-10-17 17:21 | HO.PSYCHPN ---
Subjective Subjective Date of Service: 10/17/22 Reason For Visit: Schizoaffective disorder Subjective Notes: Conditional Voluntary Healthcare Proxy: No Guardianship: No Medical Problems Affecting Mental Status: No Interim History: Reports sedative side effects of Clozapine, however reports they are gone by mid-day. Pt states she is prepared to increase to 50 mg this evening. No current questions or concerns. Medication Compliance: Yes Side effects from medications: Yes (a.m. sedation, clozapine titration) Attending Groups: No Review of Systems Acute medical concerns: No Medical Review of Systems: unchanged Mental Status Exam Mental Status Exam Patient Appearance: Appropriate Patient Orientation: Person, Place, Time and Situation Level of Consciousness: Alert Patient Behavior: Talkative and Cooperative Mood Description: Labile Affect Description: Labile Patient Cognition Impaired: No Ability to Follow Directions: Fair Speech Pattern: Spontaneous Speech Memory Description: Episodic Impaired Hallucinations: Auditory Delusions: Paranoid Ideation, Grandiose and Present Perceptual Disturbances: Depersonalization and Derealization Thought Process: Distracted and Rumination Thought Content: positive for Circumstantial, positive for Perseveration and positive for Thought Blocking Depressive Symptoms: Increased Anxiety, Increased Irritability and Crying Spells Judgement: Poor Diagnostics Vital Signs (24Hr): Vital Signs - 24 hr 10/16/22 18:00 Temperature 97.8 F Pulse Rate 99 Blood Pressure 125/81 BMI result Body Mass Index 27.8 Labs 10/15/22 08:28 09/27/22 10:22 Medications Medications Current Medications Acetaminophen (Acetaminophen 325 Mg Tablet) 650 mg PO Q6H PRN PRN Reason: Headache/Pain Mild Scale (1-3) Al Hydroxide/Mg Hydroxide (Magnesium Hydrox/Alum Hydrox 30 Ml Oral.Susp) 30 ml PO Q6H PRN PRN Reason: Heartburn/Nausea Benztropine Mesylate (Benztropine Mesylate 1 Mg Tablet) 1 mg PO TID [facility] Last Admin: 10/17/22 13:59 Dose: 1 mg Clozapine (Clozapine Odt 25 Mg Tab.Rapdis) 25 mg PO BEDTIME [facility] Last Admin: 10/16/22 20:22 Dose: 25 mg Hydroxyzine HCl (Hydroxyzine Hcl 25 Mg Tablet) 25 mg PO Q6H PRN PRN Reason: Anxiety Last Admin: 10/16/22 11:06 Dose: 25 mg Lamotrigine (Lamotrigine 100 Mg Tablet) 100 mg PO DAILY [facility] Last Admin: 10/17/22 08:23 Dose: 100 mg Lurasidone HCl (Lurasidone Hcl 80 Mg Tablet) 80 mg PO BEDTIME [facility] Last Admin: 10/16/22 20:21 Dose: 80 mg Magnesium Hydroxide (Milk Of Magnesia 30 Ml Oral.Susp) 30 ml PO DAILY PRN PRN Reason: Constipation Nicotine Polacrilex (Nicotine Polacrilex 2 Mg Gum) 2 mg BUCCAL Q2H PRN PRN Reason: Smoking Cessation Last Admin: 10/17/22 16:45 Dose: 2 mg Olanzapine (Olanzapine 5 Mg Tablet) 5 mg PO Q4H PRN PRN Reason: psychotic agitation Last Admin: 10/15/22 16:54 Dose: 5 mg Pharmacy Consult (Consult Rx Perform Med Rec) 1 each MISCELLANE ONCE PRN PRN Reason: Consult order Senna (Sennosides 8.6 Mg Tablet) 17.2 mg PO BEDTIME [facility] Last Admin: 10/16/22 20:21 Dose: 17.2 mg Sertraline HCl (Sertraline Hcl 25 Mg Tablet) 75 mg PO DAILY [facility] Last Admin: 10/17/22 08:22 Dose: 75 mg Sodium Biphosphate/Sodium Phosphate (Sodium Phosphate,[place]-Dibasic 133 Ml Enema) 133 ml [place] ONCE PRN PRN Reason: Constipation Last Admin: 10/05/22 10:54 Dose: 133 ml Allergies Allergies Allergy/AdvReac Type Severity Reaction Status Date / Time aripiprazole [Abilify] Allergy Unknown tongue Verified 08/18/22 05:59 swells and gain weight risperidone [From Risperdal] AdvReac Unknown gain Verified 08/18/22 05:59 weight, and slurred speech cariprazine [From Vraylar] AdvReac Verified 08/18/22 05:59 haloperidol [From Haldol] AdvReac DYSTONIA Verified 08/18/22 05:59 paliperidone AdvReac dystonia Verified 08/18/22 05:59 trazodone AdvReac DYSTONIA Verified 08/18/22 05:59 Assessment & Plan Assessment & Plan (1) Schizoaffective disorder, bipolar type: Status: Acute Code(s): F25.0 - Schizoaffective disorder, bipolar type Plan 22 yo female, history of schizoaffective disorder, bipolar type, PTSD, polysubstance use with current reports of increase in depressive sx with SI, SIBS and difficulty in her new [facility] in [place]. Plan: Collateral contact Increase Sertraline to 75 mg daily Encourage milieu involvement ?Caplyta, ?Clozaril trials-will discuss with pt, mother, Hermes's guardian. 10/01/22: Increase Latuda to 100 mg hs Application sent to Cl[facility]il [facility] 10/03/22: Amendment of community [facility]shad initiated. Clozaril on hold for this reason until completed. 10/04 continue current treatment plan 10/05 continue current treatment plan 10/07/22: Court date 10/14/22 to possibly amend [facility] and to begin Clozaril Continue current regime. 10/08/22: Tolerating recent increases of Latuda/Sertraline. Await court approval for potential Clozaril trial. 10/09/22: Continue current regime. 10/10/22: Olanzapine prn, Court to review [place] on 10/14/22. 10/11: Continue current regimen and plans/awaiting court order on 10/14 10/12: Continue current regimen and plans 10/13: Continue current regimen and plans 10/16/22: Continue Clozapine 25 mg hs Discontinue Olanzapine scheduled Decrease Latuda to 80 mg 10/17/22: Increase Clozapine to 50 mg hs Patient educated on: medication risk/benefits and therapeutic strategies Informed Consent: further education needed Reason for contiued inpatient stay Substantial Risk for: harm to self, inability to function and rapid decompensation Time Spent With Patient Time: Total time managing care of this patient today 15 minutes.
[2022-10-17 18:53] VITALS: BP 106/60; PULSE 123; RESP 14; TEMP 36.1
[2022-10-17] MEDS: Sennosides 8.6 MG TABLET 17.2 MG PO (20:36)
[2022-10-17] MEDS: Lurasidone HCl 80 MG TABLET PO (20:36)
[2022-10-17] MEDS: cloZAPine ODT 25 MG TAB.RAPDIS 50 MG PO (20:36)
[2022-10-18 08:54] VITALS: PULSE 88; RESP 16; TEMP 36.9; O2SAT 98
[2022-10-18] MEDS: Sertraline HCL 25 MG TABLET 75 MG PO (08:57)
[2022-10-18] MEDS: lamoTRIgine 100 MG TABLET PO (08:57)
[2022-10-18] MEDS: Benztropine Mesylate 1 MG TABLET PO ×3 (08:57→20:31)
--- NOTE | 2022-10-18 12:15 | HO.PSYCHPN ---
Subjective Subjective Date of Service: 10/18/22 Reason For Visit: Schizoaffective disorder Interim History: Reports sedative side effects of Clozapine. I feel tired like I want to stay in bed. She is adherent to medications. She continues to report she is having AH and feels paranoid like people are going to kill me. Denies other complaints. Review of Systems Review of Systems Constitutional : No Fever, No Chills ENT/Mouth : No Ear Pain, No Nasal Congestion, No sore throat Eyes: No Eye Pain, No Swelling, No Redness Cardiovascular : No Chest Pain, No SOB Respiratory : No Cough, No Sputum, No Dyspnea Gastrointestinal : No ingestions, No Nausea, No Vomiting, No Diarrhea, No Hematochezia, No Melena Genitourinary : No Dysuria, No Urinary Frequency, No Hematuria Musculoskeletal : No Myalgias Skin : No Skin Lesions, No rash Neuro : No Weakness, No Numbness, No Paresthesias, No Dizziness, No Headache Psych : + Anxiety, + Depression, + SI, + thoughts of self injury, No HI, No AVH, Heme/Lymph: No Lymphadenopathy Endocrine : No Polyuria, No Polydipsia Yes all other systems are reviewed and are negative and Unobtainable due to mental status Constitutional: Reports no additional constitutional complaints Eyes: Reports no additional eye complaints Reports system reviewed and no additional complaints, except as documented Cardiovascular: Reports no additional cardiovascular complaints Respiratory: Reports no additional respiratory complaints Gastrointestinal: Reports no additional gastrointestinal complaints Musculoskeletal: Reports no additional musculoskeletal complaints Skin/Breast: Reports system reviewed and no additional complaints, except as docu Reports system reviewed and no additional complaints, except as documented Psychiatric: Reports abnormal sleep pattern, Reports anxiety, Reports depression, Reports difficulty concentrating, Reports auditory hallucinations, Reports hopelessness, Reports irritability, Reports anhedonia and Reports suicidal ideation Endocrine: Reports no additional endocrine complaints Hematologic/Lymphatic: Reports no additional hematologic/lymphatic complaints Allergic/Immunologic: Reports no additional allergic/immunologic complaints Mental Status Exam Mental Status Exam Narrative: In today's visit she is alert, minimally interactive. Appears to be responding to internal stimuli. Cognitively is preoccupied. No active SI. Judgment is marginal Patient Appearance: Appropriate Patient Orientation: Person, Place, Time and Situation Level of Consciousness: Alert Patient Behavior: Talkative and Cooperative Mood Description: Labile Affect Description: Labile Patient Cognition Impaired: No Ability to Follow Directions: Fair Speech Pattern: Spontaneous Speech Memory Description: Episodic Impaired Diagnostics Vital Signs (24Hr): Vital Signs - 24 hr 10/18/22 08:54 Temperature 98.5 F Pulse Rate 88 Respiratory Rate 16 Pulse Oximetry 98 Oxygen Delivery Method Room Air BMI result Body Mass Index 27.8 Labs 10/15/22 08:28 09/27/22 10:22 Medications Medications Current Medications Acetaminophen (Acetaminophen 325 Mg Tablet) 650 mg PO Q6H PRN PRN Reason: Headache/Pain Mild Scale (1-3) Al Hydroxide/Mg Hydroxide (Magnesium Hydrox/Alum Hydrox 30 Ml Oral.Susp) 30 ml PO Q6H PRN PRN Reason: Heartburn/Nausea Benztropine Mesylate (Benztropine Mesylate 1 Mg Tablet) 1 mg PO TID [facility] Last Admin: 10/18/22 20:31 Dose: 1 mg Clozapine (Clozapine Odt 25 Mg Tab.Rapdis) 50 mg PO BEDTIME [facility] Last Admin: 10/18/22 20:31 Dose: 50 mg Hydroxyzine HCl (Hydroxyzine Hcl 25 Mg Tablet) 25 mg PO Q6H PRN PRN Reason: Anxiety Last Admin: 10/18/22 12:41 Dose: 25 mg Lamotrigine (Lamotrigine 100 Mg Tablet) 100 mg PO DAILY [facility] Last Admin: 10/18/22 08:57 Dose: 100 mg Lurasidone HCl (Lurasidone Hcl 80 Mg Tablet) 80 mg PO BEDTIME [facility] Last Admin: 10/18/22 20:31 Dose: 80 mg Magnesium Hydroxide (Milk Of Magnesia 30 Ml Oral.Susp) 30 ml PO DAILY PRN PRN Reason: Constipation Nicotine Polacrilex (Nicotine Polacrilex 2 Mg Gum) 2 mg BUCCAL Q2H PRN PRN Reason: Smoking Cessation Last Admin: 10/18/22 20:55 Dose: 2 mg Olanzapine (Olanzapine 5 Mg Tablet) 5 mg PO Q4H PRN PRN Reason: psychotic agitation Last Admin: 10/15/22 16:54 Dose: 5 mg Pharmacy Consult (Consult Rx Perform Med Rec) 1 each MISCELLANE ONCE PRN PRN Reason: Consult order Senna (Sennosides 8.6 Mg Tablet) 17.2 mg PO BEDTIME [facility] Last Admin: 10/18/22 20:31 Dose: 17.2 mg Sertraline HCl (Sertraline Hcl 25 Mg Tablet) 75 mg PO DAILY [facility] Last Admin: 10/18/22 08:57 Dose: 75 mg Sodium Biphosphate/Sodium Phosphate (Sodium Phosphate,[place]-Dibasic 133 Ml Enema) 133 ml [place] ONCE PRN PRN Reason: Constipation Last Admin: 10/05/22 10:54 Dose: 133 ml Allergies Allergies Allergy/AdvReac Type Severity Reaction Status Date / Time aripiprazole [Abilify] Allergy Unknown tongue Verified 08/18/22 05:59 swells and gain weight risperidone [From Risperdal] AdvReac Unknown gain Verified 08/18/22 05:59 weight, and slurred speech cariprazine [From Vraylar] AdvReac Verified 08/18/22 05:59 haloperidol [From Haldol] AdvReac DYSTONIA Verified 08/18/22 05:59 paliperidone AdvReac dystonia Verified 08/18/22 05:59 trazodone AdvReac DYSTONIA Verified 08/18/22 05:59 Assessment & Plan Assessment & Plan (1) Schizoaffective disorder, bipolar type: Status: Acute Code(s): F25.0 - Schizoaffective disorder, bipolar type Plan 22 yo female, history of schizoaffective disorder, bipolar type, PTSD, polysubstance use with current reports of increase in depressive sx with SI, SIBS and difficulty in her new custodial in [place]. Plan: Collateral contact Increase Sertraline to 75 mg daily Encourage milieu involvement ?Caplyta, ?Clozaril trials-will discuss with pt, mother, Hermes's guardian. 10/01/22: Increase Latuda to 100 mg hs Application sent to [facility] 10/03/22: Amendment of community [facility]ad initiated. Clozaril on hold for this reason until completed. 10/04 continue current treatment plan 10/05 continue current treatment plan 10/07/22: Court date 10/14/22 to possibly amend [facility] and to begin Clozaril Continue current regime. 10/08/22: Tolerating recent increases of Latuda/Sertraline. Await court approval for potential Clozaril trial. 10/09/22: Continue current regime. 10/10/22: Olanzapine prn, Court to review Arshad on 10/14/22. 10/11: Continue current regimen and plans/awaiting court order on 10/14 10/12: Continue current regimen and plans 10/13: Continue current regimen and plans 10/16/22: Continue Clozapine 25 mg hs Discontinue Olanzapine scheduled Decrease Latuda to 80 mg 10/17/22: Increase Clozapine to 50 mg hs 10/18: continue current plan. Reason for contiued inpatient stay Substantial Risk for: inability to function and rapid decompensation Time Spent With Patient Time: Total time managing care of this patient today ____ minutes.
[2022-10-18] MEDS: hydrOXYzine HCL 25 MG TABLET PO (12:41)
[2022-10-18] MEDS: Nicotine Polacrilex 2 MG GUM BUCCAL ×5 (12:41→20:55)
[2022-10-18 18:00] VITALS: BP 124/76; PULSE 78; RESP 16; TEMP 36; O2SAT 98
[2022-10-18] MEDS: cloZAPine ODT 25 MG TAB.RAPDIS 50 MG PO (20:31)
[2022-10-18] MEDS: Sennosides 8.6 MG TABLET 17.2 MG PO (20:31)
[2022-10-18] MEDS: Lurasidone HCl 80 MG TABLET PO (20:31)
[2022-10-19] MEDS: Benztropine Mesylate 1 MG TABLET PO ×3 (08:42→19:50)
[2022-10-19] MEDS: lamoTRIgine 100 MG TABLET PO (08:42)
[2022-10-19] MEDS: Sertraline HCL 25 MG TABLET 75 MG PO (08:42)
--- NOTE | 2022-10-19 11:50 | HO.PSYCHPN ---
Subjective Subjective Date of Service: 10/19/22 Reason For Visit: Schizoaffective disorder Interim History: Patient continues to report that she feels the Clozapine is making my brain work so slowly. and feels tired from it. She says my head hurts . Also. I feel tired like I want to stay in bed. She is adherent to medications. She continues to report she is having AH and feels paranoid and is feeling discouraged because she is having side effects but not visible benefits. Her mom called and advocated for slowing the titration of the Clozapine. Denies other complaints. Social on the milieu. Medication Compliance: Yes Side effects from medications: Yes Attending Groups: Yes Review of Systems Review of Systems Constitutional : No Fever, No Chills ENT/Mouth : No Ear Pain, No Nasal Congestion, No sore throat Eyes: No Eye Pain, No Swelling, No Redness Cardiovascular : No Chest Pain, No SOB Respiratory : No Cough, No Sputum, No Dyspnea Gastrointestinal : No ingestions, No Nausea, No Vomiting, No Diarrhea, No Hematochezia, No Melena Genitourinary : No Dysuria, No Urinary Frequency, No Hematuria Musculoskeletal : No Myalgias Skin : No Skin Lesions, No rash Neuro : No Weakness, No Numbness, No Paresthesias, No Dizziness, No Headache Psych : + Anxiety, + Depression, + SI, + thoughts of self injury, No HI, No AVH, Heme/Lymph: No Lymphadenopathy Endocrine : No Polyuria, No Polydipsia Yes all other systems are reviewed and are negative and Unobtainable due to mental status Constitutional: Reports no additional constitutional complaints Eyes: Reports no additional eye complaints Reports system reviewed and no additional complaints, except as documented Cardiovascular: Reports no additional cardiovascular complaints Respiratory: Reports no additional respiratory complaints Gastrointestinal: Reports no additional gastrointestinal complaints Musculoskeletal: Reports no additional musculoskeletal complaints Skin/Breast: Reports system reviewed and no additional complaints, except as docu Reports system reviewed and no additional complaints, except as documented Psychiatric: Reports abnormal sleep pattern, Reports anxiety, Reports depression, Reports difficulty concentrating, Reports auditory hallucinations, Reports hopelessness, Reports irritability, Reports anhedonia and Reports suicidal ideation Endocrine: Reports no additional endocrine complaints Hematologic/Lymphatic: Reports no additional hematologic/lymphatic complaints Allergic/Immunologic: Reports no additional allergic/immunologic complaints Mental Status Exam Mental Status Exam Narrative: In today's visit she is alert, minimally interactive. Appears to be responding to internal stimuli. Cognitively is preoccupied. No active SI. Judgment is marginal Patient Appearance: Appropriate Patient Orientation: Person, Place, Time and Situation Level of Consciousness: Awake and Alert Patient Behavior: Talkative, Cooperative and Fatigued Mood Description: Constricted and Anxious Affect Description: Anxious Patient Cognition Impaired: No Ability to Follow Directions: Good Speech Pattern: Spontaneous Speech Memory Description: Episodic Impaired Hallucinations: Auditory Delusions: Paranoid Ideation Thought Process: Intact and Linear Thought Content: positive for Goal Oriented Judgement: Fair Diagnostics Vital Signs (24Hr): Vital Signs - 24 hr 10/19/22 13:38 Temperature 98.6 F Pulse Rate 72 Respiratory Rate 18 Blood Pressure 87/56 L Pulse Oximetry 96 Oxygen Delivery Method Room Air BMI result Body Mass Index 27.8 Labs 10/15/22 08:28 09/27/22 10:22 Medications Medications Current Medications Acetaminophen (Acetaminophen 325 Mg Tablet) 650 mg PO Q6H PRN PRN Reason: Headache/Pain Mild Scale (1-3) Al Hydroxide/Mg Hydroxide (Magnesium Hydrox/Alum Hydrox 30 Ml Oral.Susp) 30 ml PO Q6H PRN PRN Reason: Heartburn/Nausea Benztropine Mesylate (Benztropine Mesylate 1 Mg Tablet) 1 mg PO TID [facility] Last Admin: 10/19/22 19:50 Dose: 1 mg Clozapine (Clozapine Odt 25 Mg Tab.Rapdis) 50 mg PO BEDTIME [facility] Last Admin: 10/19/22 19:51 Dose: 50 mg Hydroxyzine HCl (Hydroxyzine Hcl 25 Mg Tablet) 25 mg PO Q6H PRN PRN Reason: Anxiety Last Admin: 10/19/22 13:16 Dose: 25 mg Lamotrigine (Lamotrigine 100 Mg Tablet) 100 mg PO DAILY [facility] Last Admin: 10/19/22 08:42 Dose: 100 mg Lurasidone HCl (Lurasidone Hcl 80 Mg Tablet) 80 mg PO BEDTIME [facility] Last Admin: 10/19/22 19:50 Dose: 80 mg Magnesium Hydroxide (Milk Of Magnesia 30 Ml Oral.Susp) 30 ml PO DAILY PRN PRN Reason: Constipation Nicotine Polacrilex (Nicotine Polacrilex 2 Mg Gum) 2 mg BUCCAL Q2H PRN PRN Reason: Smoking Cessation Last Admin: 10/19/22 18:58 Dose: 2 mg Olanzapine (Olanzapine 5 Mg Tablet) 5 mg PO Q4H PRN PRN Reason: psychotic agitation Last Admin: 10/15/22 16:54 Dose: 5 mg Pharmacy Consult (Consult Rx Perform Med Rec) 1 each MISCELLANE ONCE PRN PRN Reason: Consult order Senna (Sennosides 8.6 Mg Tablet) 17.2 mg PO BEDTIME [facility] Last Admin: 10/19/22 19:50 Dose: 17.2 mg Sertraline HCl (Sertraline Hcl 25 Mg Tablet) 75 mg PO DAILY [facility] Last Admin: 10/19/22 08:42 Dose: 75 mg Sodium Biphosphate/Sodium Phosphate (Sodium Phosphate,[place]-Dibasic 133 Ml Enema) 133 ml IN ONCE PRN PRN Reason: Constipation Last Admin: 10/05/22 10:54 Dose: 133 ml Allergies Allergies Allergy/AdvReac Type Severity Reaction Status Date / Time aripiprazole [Abilify] Allergy Unknown tongue Verified 08/18/22 05:59 swells and gain weight risperidone [From Risperdal] AdvReac Unknown gain Verified 08/18/22 05:59 weight, and slurred speech cariprazine [From Vraylar] AdvReac Verified 08/18/22 05:59 haloperidol [From Haldol] AdvReac DYSTONIA Verified 08/18/22 05:59 paliperidone AdvReac dystonia Verified 08/18/22 05:59 trazodone AdvReac DYSTONIA Verified 08/18/22 05:59 Assessment & Plan Assessment & Plan (1) Schizoaffective disorder, bipolar type: Status: Acute Code(s): F25.0 - Schizoaffective disorder, bipolar type Plan 22 yo female, history of schizoaffective disorder, bipolar type, PTSD, polysubstance use with current reports of increase in depressive sx with SI, SIBS and difficulty in her new long-term in [place]. Plan: Collateral contact Increase Sertraline to 75 mg daily Encourage milieu involvement ?Caplyta, ?Clozaril trials-will discuss with pt, mother, Hermes's guardian. 10/01/22: Increase Latuda to 100 mg hs Application sent to [facility] 10/03/22: Amendment of [facility] initiated. Clozaril on hold for this reason until completed. 10/04 continue current treatment plan 10/05 continue current treatment plan 10/07/22: Court date 10/14/22 to possibly amend [facility] and to begin Clozaril Continue current regime. 10/08/22: Tolerating recent increases of Latuda/Sertraline. Await court approval for potential Clozaril trial. 10/09/22: Continue current regime. 10/10/22: Olanzapine prn, Court to review [facility]sh[facility] on 10/14/22. 10/11: Continue current regimen and plans/awaiting court order on 10/14 10/12: Continue current regimen and plans 10/13: Continue current regimen and plans 10/16/22: Continue Clozapine 25 mg hs Discontinue Olanzapine scheduled Decrease Latuda to 80 mg 10/17/22: Increase Clozapine to 50 mg hs 10/18: continue current plan. 10/19: FU on tolerability of Clozapine by primary team. Continue same for now. Reason for contiued inpatient stay Substantial Risk for: inability to function and rapid decompensation Time Spent With Patient Time: Total time managing care of this patient today ____ minutes.
[2022-10-19] MEDS: hydrOXYzine HCL 25 MG TABLET PO (13:16)
[2022-10-19] MEDS: Nicotine Polacrilex 2 MG GUM BUCCAL ×3 (13:16→18:58)
[2022-10-19 13:38] VITALS: BP 87/56; PULSE 72; RESP 18; TEMP 37; O2SAT 96
[2022-10-19 18:00] VITALS: BP 128/76; PULSE 76; RESP 16; TEMP 36.4; O2SAT 98
[2022-10-19] MEDS: Lurasidone HCl 80 MG TABLET PO (19:50)
[2022-10-19] MEDS: Sennosides 8.6 MG TABLET 17.2 MG PO (19:50)
[2022-10-19] MEDS: cloZAPine ODT 25 MG TAB.RAPDIS 50 MG PO (19:51)
[2022-10-20 09:31] VITALS: BP 107/59; PULSE 76; RESP 16; TEMP 36.9; O2SAT 98
[2022-10-20] MEDS: Benztropine Mesylate 1 MG TABLET PO ×3 (09:35→21:38)
[2022-10-20] MEDS: Sertraline HCL 25 MG TABLET 75 MG PO (09:36)
[2022-10-20] MEDS: lamoTRIgine 100 MG TABLET PO (09:36)
[2022-10-20] MEDS: Nicotine Polacrilex 2 MG GUM BUCCAL ×5 (10:57→20:32)
--- NOTE | 2022-10-20 13:04 | P.PNPSI_ITS ---
Subjective Subjective Date of Service: 10/20/22 Reason For Visit: Schizoaffective disorder Subjective Notes: Conditional Voluntary Healthcare Proxy: No Guardianship: Yes Medical Problems Affecting Mental Status: No Interim History: Met with pt, mother, team. Clozaril at 50 mg- I feel brain . Asks to increase every 3 days unless SE present. Will decrease Latuda to 60 mg Will change Clozaril timing to 7pm Will begin Topiramate DAVID scheduled 10/21/22 Medication Compliance: Yes Side effects from medications: Yes (tired) Attending Groups: No Review of Systems Acute medical concerns: No Medical Review of Systems: unchanged Mental Status Exam Mental Status Exam Narrative: In today's visit she is alert, minimally interactive. Appears to be responding to internal stimuli. Cognitively is preoccupied. No active SI. Judgment is marginal Patient Appearance: Appropriate Patient Orientation: Person, Place, Time and Situation Level of Consciousness: Awake and Alert Patient Behavior: Talkative, Cooperative and Fatigued Mood Description: Constricted and Anxious Affect Description: Anxious Patient Cognition Impaired: No Ability to Follow Directions: Good Speech Pattern: Spontaneous Speech Memory Description: Episodic Impaired Hallucinations: Auditory Delusions: Paranoid Ideation Thought Process: Intact and Linear Thought Content: positive for Goal Oriented Judgement: Fair Diagnostics Vital Signs (24Hr): Vital Signs - 24 hr 10/19/22 13:38 10/19/22 18:00 10/20/22 09:31 Temperature 98.6 F 97.6 F 98.4 F Pulse Rate 72 76 76 Respiratory Rate 18 16 16 Blood Pressure 87/56 L 128/76 107/59 L Pulse Oximetry 96 98 98 Oxygen Delivery Method Room Air Room Air Room Air BMI result Body Mass Index 27.8 Labs 10/15/22 08:28 09/27/22 10:22 Medications Medications Current Medications Acetaminophen (Acetaminophen 325 Mg Tablet) 650 mg PO Q6H PRN PRN Reason: Headache/Pain Mild Scale (1-3) Al Hydroxide/Mg Hydroxide (Magnesium Hydrox/Alum Hydrox 30 Ml Oral.Susp) 30 ml PO Q6H PRN PRN Reason: Heartburn/Nausea Benztropine Mesylate (Benztropine Mesylate 1 Mg Tablet) 1 mg PO TID [facility] Last Admin: 10/20/22 09:35 Dose: 1 mg Clozapine (Clozapine Odt 25 Mg Tab.Rapdis) 50 mg PO BEDTIME [facility] Last Admin: 10/19/22 19:51 Dose: 50 mg Hydroxyzine HCl (Hydroxyzine Hcl 25 Mg Tablet) 25 mg PO Q6H PRN PRN Reason: Anxiety Last Admin: 10/19/22 13:16 Dose: 25 mg Lamotrigine (Lamotrigine 100 Mg Tablet) 100 mg PO DAILY [facility] Last Admin: 10/20/22 09:36 Dose: 100 mg Lurasidone HCl (Lurasidone Hcl 80 Mg Tablet) 80 mg PO BEDTIME [facility] Last Admin: 10/19/22 19:50 Dose: 80 mg Magnesium Hydroxide (Milk Of Magnesia 30 Ml Oral.Susp) 30 ml PO DAILY PRN PRN Reason: Constipation Nicotine Polacrilex (Nicotine Polacrilex 2 Mg Gum) 2 mg BUCCAL Q2H PRN PRN Reason: Smoking Cessation Last Admin: 10/20/22 10:57 Dose: 2 mg Olanzapine (Olanzapine 5 Mg Tablet) 5 mg PO Q4H PRN PRN Reason: psychotic agitation Last Admin: 10/15/22 16:54 Dose: 5 mg Pharmacy Consult (Consult Rx Perform Med Rec) 1 each MISCELLANE ONCE PRN PRN Reason: Consult order Senna (Sennosides 8.6 Mg Tablet) 17.2 mg PO BEDTIME [facility] Last Admin: 10/19/22 19:50 Dose: 17.2 mg Sertraline HCl (Sertraline Hcl 25 Mg Tablet) 75 mg PO DAILY [facility] Last Admin: 10/20/22 09:36 Dose: 75 mg Sodium Biphosphate/Sodium Phosphate (Sodium Phosphate,[place]-Dibasic 133 Ml Enema) 133 ml [place] ONCE PRN PRN Reason: Constipation Last Admin: 10/05/22 10:54 Dose: 133 ml Allergies Allergies Allergy/AdvReac Type Severity Reaction Status Date / Time aripiprazole [Abilify] Allergy Unknown tongue Verified 08/18/22 05:59 swells and gain weight risperidone [From Risperdal] AdvReac Unknown gain Verified 08/18/22 05:59 weight, and slurred speech cariprazine [From Vraylar] AdvReac Verified 08/18/22 05:59 haloperidol [From Haldol] AdvReac DYSTONIA Verified 08/18/22 05:59 paliperidone AdvReac dystonia Verified 08/18/22 05:59 trazodone AdvReac DYSTONIA Verified 08/18/22 05:59 Assessment & Plan Assessment & Plan (1) Schizoaffective disorder, bipolar type: Status: Acute Code(s): F25.0 - Schizoaffective disorder, bipolar type Plan 22 yo female, history of schizoaffective disorder, bipolar type, PTSD, funmilayo ysubstance use with current reports of increase in depressive sx with SI, SIBS and difficulty in her new jail in [place]. Plan: Collateral contact Increase Sertraline to 75 mg daily Encourage milieu involvement ?Caplyta, ?Clozaril trials-will discuss with pt, mother, Hermes's guardian. 10/01/22: Increase Latuda to 100 mg hs Application sent to [facility] 10/03/22: Amendment of community Arshad initiated. Clozaril on hold for this reason until completed. 10/04 continue current treatment plan 10/05 continue current treatment plan 10/07/22: Court date 10/14/22 to possibly amend [facility] and to begin Clozaril Continue current regime. 10/08/22: Tolerating recent increases of Latuda/Sertraline. Await court approval for potential Clozaril trial. 10/09/22: Continue current regime. 10/10/22: Olanzapine prn, Court to review Arshad on 10/14/22. 10/11: Continue current regimen and plans/awaiting court order on 10/14 10/12: Continue current regimen and plans 10/13: Continue current regimen and plans 10/16/22: Continue Clozapine 25 mg hs Discontinue Olanzapine scheduled Decrease Latuda to 80 mg 10/17/22: Increase Clozapine to 50 mg hs 10/18: continue current plan. 10/19: FU on tolerability of Clozapine by primary team. Continue same for now. 10/20/22: Increase Clozapine to 75 mg, timing change to 1900. Will attempt to titrate every 3 days. Decrease Latuda to 60 mg daily Topiramate 25 mg daily DAVID scheduled for 10/22/22. Patient educated on: medication risk/benefits and therapeutic strategies Informed Consent: further education needed Reason for contiued inpatient stay Substantial Risk for: rapid decompensation Time Spent With Patient Time: Total time managing care of this patient today ____ minutes.
[2022-10-20 16:59] VITALS: BP 118/68; PULSE 84; RESP 18; TEMP 36.9; O2SAT 95
[2022-10-20] MEDS: Lurasidone HCl 20 MG TABLET 60 MG PO (21:37)
[2022-10-20] MEDS: Sennosides 8.6 MG TABLET 17.2 MG PO (21:38)
[2022-10-20] MEDS: cloZAPine ODT 25 MG TAB.RAPDIS 75 MG PO (21:38)
[2022-10-21 08:57] VITALS: BP 104/63; PULSE 76; RESP 16; TEMP 36.6; O2SAT 95
[2022-10-21] MEDS: Sertraline HCL 25 MG TABLET 75 MG PO (10:02)
[2022-10-21] MEDS: Nicotine Polacrilex 2 MG GUM BUCCAL ×5 (10:03→20:36)
[2022-10-21] MEDS: Benztropine Mesylate 1 MG TABLET PO ×3 (10:03→21:05)
[2022-10-21] MEDS: Topiramate 25 MG TABLET PO (10:03)
[2022-10-21] MEDS: lamoTRIgine 100 MG TABLET PO (10:03)
--- NOTE | 2022-10-21 16:17 | HO.PSYCHPN ---
Subjective Subjective Date of Service: 10/21/22 Reason For Visit: Schizoaffective disorder Subjective Notes: Conditional Voluntary Guardianship: Yes Medical Problems Affecting Mental Status: No Interim History: Met with pt and mother. Tolerating changes of 10/20/22. States SE are decreased Calm, without lability, some laughter, clear and appears with improvement today. Medication Compliance: Yes Side effects from medications: No Attending Groups: No Review of Systems Acute medical concerns: No Medical Review of Systems: unchanged Mental Status Exam Mental Status Exam Patient Appearance: Appropriate Patient Orientation: Person, Place, Time and Situation Level of Consciousness: Alert Patient Behavior: Appropriate, Talkative, Cooperative and Good Eye Contact Mood Description: Flat Affect Description: Flat Patient Cognition Impaired: No Ability to Follow Directions: Good Speech Pattern: Spontaneous Speech Memory Description: Intact Hallucinations: Auditory Delusions: Paranoid Ideation Perceptual Disturbances: Depersonalization and Derealization Thought Process: Distracted and Goal Oriented Thought Content: positive for Goal Oriented and positive for Perseveration Depressive Symptoms: Difficulty Concentrating Judgement: Fair Diagnostics Vital Signs (24Hr): Vital Signs - 24 hr 10/20/22 16:59 10/21/22 08:57 Temperature 98.5 F 97.9 F Pulse Rate 84 76 Respiratory Rate 18 16 Blood Pressure 118/68 104/63 Pulse Oximetry 95 95 Oxygen Delivery Method Room Air Room Air BMI result Body Mass Index 27.8 Labs 10/15/22 08:28 09/27/22 10:22 Medications Medications Current Medications Acetaminophen (Acetaminophen 325 Mg Tablet) 650 mg PO Q6H PRN PRN Reason: Headache/Pain Mild Scale (1-3) Al Hydroxide/Mg Hydroxide (Magnesium Hydrox/Alum Hydrox 30 Ml Oral.Susp) 30 ml PO Q6H PRN PRN Reason: Heartburn/Nausea Benztropine Mesylate (Benztropine Mesylate 1 Mg Tablet) 1 mg PO TID [facility] Last Admin: 10/21/22 14:20 Dose: 1 mg Clozapine (Clozapine Odt 25 Mg Tab.Rapdis) 75 mg PO 1900 [facility] Last Admin: 10/20/22 21:38 Dose: 75 mg Hydroxyzine HCl (Hydroxyzine Hcl 25 Mg Tablet) 25 mg PO Q6H PRN PRN Reason: Anxiety Last Admin: 10/19/22 13:16 Dose: 25 mg Lamotrigine (Lamotrigine 100 Mg Tablet) 100 mg PO DAILY [facility] Last Admin: 10/21/22 10:03 Dose: 100 mg Lurasidone HCl (Lurasidone Hcl 20 Mg Tablet) 60 mg PO BEDTIME [facility] Last Admin: 10/20/22 21:37 Dose: 60 mg Magnesium Hydroxide (Milk Of Magnesia 30 Ml Oral.Susp) 30 ml PO DAILY PRN PRN Reason: Constipation Nicotine Polacrilex (Nicotine Polacrilex 2 Mg Gum) 2 mg BUCCAL Q2H PRN PRN Reason: Smoking Cessation Last Admin: 10/21/22 13:38 Dose: 2 mg Olanzapine (Olanzapine 5 Mg Tablet) 5 mg PO Q4H PRN PRN Reason: psychotic agitation Last Admin: 10/15/22 16:54 Dose: 5 mg Pharmacy Consult (Consult Rx Perform Med Rec) 1 each MISCELLANE ONCE PRN PRN Reason: Consult order Senna (Sennosides 8.6 Mg Tablet) 17.2 mg PO BEDTIME [facility] Last Admin: 10/20/22 21:38 Dose: 17.2 mg Sertraline HCl (Sertraline Hcl 25 Mg Tablet) 75 mg PO DAILY [facility] Last Admin: 10/21/22 10:02 Dose: 75 mg Sodium Biphosphate/Sodium Phosphate (Sodium Phosphate,[place]-Dibasic 133 Ml Enema) 133 ml [place] ONCE PRN PRN Reason: Constipation Last Admin: 10/05/22 10:54 Dose: 133 ml Topiramate (Topiramate 25 Mg Tablet) 25 mg PO DAILY [facility] Last Admin: 10/21/22 10:03 Dose: 25 mg Allergies Allergies Allergy/AdvReac Type Severity Reaction Status Date / Time aripiprazole [Abilify] Allergy Unknown tongue Verified 08/18/22 05:59 swells and gain weight risperidone [From Risperdal] AdvReac Unknown gain Verified 08/18/22 05:59 weight, and slurred speech cariprazine [From Vraylar] AdvReac Verified 08/18/22 05:59 haloperidol [From Haldol] AdvReac DYSTONIA Verified 08/18/22 05:59 paliperidone AdvReac dystonia Verified 08/18/22 05:59 trazodone AdvReac DYSTONIA Verified 08/18/22 05:59 Assessment & Plan Assessment & Plan (1) Schizoaffective disorder, bipolar type: Status: Acute Code(s): F25.0 - Schizoaffective disorder, bipolar type Plan 22 yo female, history of schizoaffective disorder, bipolar type, PTSD, polysubstance use with current reports of increase in depressive sx with SI, SIBS and difficulty in her new assisted in [place]. Plan: Collateral contact Increase Sertraline to 75 mg daily Encourage milieu involvement ?Caplyta, ?Clozaril trials-will discuss with pt, mother, Hermes's guardian. 10/01/22: Increase Latuda to 100 mg hs Application sent to [facility] 10/03/22: Amendment of community [facility]sh[facility] initiated. Clozaril on hold for this reason until completed. 10/04 continue current treatment plan 10/05 continue current treatment plan 10/07/22: Court date 10/14/22 to possibly amend [facility] and to begin Clozaril Continue current regime. 10/08/22: Tolerating recent increases of Latuda/Sertraline. Await court approval for potential Clozaril trial. 10/09/22: Continue current regime. 10/10/22: Olanzapine prn, Court to review [place] on 10/14/22. 10/11: Continue current regimen and plans/awaiting court order on 10/14 10/12: Continue current regimen and plans 10/13: Continue current regimen and plans 10/16/22: Continue Clozapine 25 mg hs Discontinue Olanzapine scheduled Decrease Latuda to 80 mg 10/17/22: Increase Clozapine to 50 mg hs 10/18: continue current plan. 10/19: FU on tolerability of Clozapine by primary team. Continue same for now. 10/21/22: No changes today. Continue current regime and plan for now. Patient educated on: medication risk/benefits Guardian/Caregiver educated on: medication risk/benefits Informed Consent: understands Reason for contiued inpatient stay Substantial Risk for: rapid decompensation Time Spent With Patient Time: Total time managing care of this patient today ____ minutes.
[2022-10-21 16:50] VITALS: BP 112/76; PULSE 90; TEMP 36.6
[2022-10-21] MEDS: cloZAPine ODT 25 MG TAB.RAPDIS 75 MG PO (21:04)
[2022-10-21] MEDS: Lurasidone HCl 20 MG TABLET 60 MG PO (21:05)
[2022-10-21] MEDS: Sennosides 8.6 MG TABLET 17.2 MG PO (21:05)
[2022-10-22 09:52] LABS: Neut%MD 51.1 %; Neutrophils Absolute Auto 2.6 x10*3/uL (2.0-8.3)
[2022-10-22] MEDS: lamoTRIgine 100 MG TABLET PO (09:52)
[2022-10-22] MEDS: Sertraline HCL 25 MG TABLET 75 MG PO (09:52)
[2022-10-22] MEDS: Benztropine Mesylate 1 MG TABLET PO ×3 (09:52→18:59)
[2022-10-22] MEDS: Topiramate 25 MG TABLET PO (09:52)
[2022-10-22 09:54] VITALS: BP 116/75; PULSE 74; RESP 18; TEMP 36.3; O2SAT 97
[2022-10-22] MEDS: Nicotine Polacrilex 2 MG GUM BUCCAL ×4 (11:51→18:59)
--- NOTE | 2022-10-22 12:17 | P.PNPSI_ITS ---
Subjective Subjective Date of Service: 10/22/22 Reason For Visit: Schizoaffective disorder Subjective Notes: Conditional Voluntary Healthcare Proxy: No Guardianship: No Medical Problems Affecting Mental Status: No Interim History: Tolerating Clozapine 75 mg. Discussed feeling depressed, anxious and wanting to leave. Believes she reports this is due to menses initiation. States she is safe on the unit. 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 Questions if she can try to do this. Encouraged to explore this option for herself. Medication Compliance: Yes Side effects from medications: No (a.m. sedation she reports is diminished) Attending Groups: Intermittent Review of Systems Acute medical concerns: No Medical Review of Systems: unchanged Mental Status Exam Mental Status Exam Patient Appearance: Appropriate Patient Orientation: Person, Place, Time and Situation Level of Consciousness: Alert Patient Behavior: Appropriate, Talkative, Cooperative and Good Eye Contact Mood Description: Flat Affect Description: Flat Patient Cognition Impaired: No Ability to Follow Directions: Good Speech Pattern: Spontaneous Speech Memory Description: Intact Hallucinations: Auditory Delusions: Paranoid Ideation Perceptual Disturbances: Depersonalization and Derealization Thought Process: Distracted and Goal Oriented Thought Content: positive for Goal Oriented and positive for Perseveration Depressive Symptoms: Difficulty Concentrating Judgement: Fair Diagnostics Vital Signs (24Hr): Vital Signs - 24 hr 10/21/22 16:50 10/22/22 09:54 Temperature 97.9 F 97.4 F Pulse Rate 90 74 Respiratory Rate 18 Blood Pressure 112/76 116/75 Pulse Oximetry 97 Oxygen Delivery Method Room Air BMI result Body Mass Index 27.8 Labs 10/15/22 08:28 09/27/22 10:22 Labs: Laboratory Results - last 48 hr 10/22/22 09:24 Absolute Neuts (auto) 2.6 Medications Medications Current Medications Acetaminophen (Acetaminophen 325 Mg Tablet) 650 mg PO Q6H PRN PRN Reason: Headache/Pain Mild Scale (1-3) Al Hydroxide/Mg Hydroxide (Magnesium Hydrox/Alum Hydrox 30 Ml Oral.Susp) 30 ml PO Q6H PRN PRN Reason: Heartburn/Nausea Benztropine Mesylate (Benztropine Mesylate 1 Mg Tablet) 1 mg PO TID [facility] Last Admin: 10/22/22 09:52 Dose: 1 mg Clozapine (Clozapine Odt 25 Mg Tab.Rapdis) 75 mg PO 1900 [facility] Last Admin: 10/21/22 21:04 Dose: 75 mg Hydroxyzine HCl (Hydroxyzine Hcl 25 Mg Tablet) 25 mg PO Q6H PRN PRN Reason: Anxiety Last Admin: 10/19/22 13:16 Dose: 25 mg Lamotrigine (Lamotrigine 100 Mg Tablet) 100 mg PO DAILY [facility] Last Admin: 10/22/22 09:52 Dose: 100 mg Lurasidone HCl (Lurasidone Hcl 20 Mg Tablet) 60 mg PO BEDTIME [facility] Last Admin: 10/21/22 21:05 Dose: 60 mg Magnesium Hydroxide (Milk Of Magnesia 30 Ml Oral.Susp) 30 ml PO DAILY PRN PRN Reason: Constipation Nicotine Polacrilex (Nicotine Polacrilex 2 Mg Gum) 2 mg BUCCAL Q2H PRN PRN Reason: Smoking Cessation Last Admin: 10/22/22 11:51 Dose: 2 mg Olanzapine (Olanzapine 5 Mg Tablet) 5 mg PO Q4H PRN PRN Reason: psychotic agitation Last Admin: 10/15/22 16:54 Dose: 5 mg Pharmacy Consult (Consult Rx Perform Med Rec) 1 each MISCELLANE ONCE PRN PRN Reason: Consult order Senna (Sennosides 8.6 Mg Tablet) 17.2 mg PO BEDTIME [facility] Last Admin: 10/21/22 21:05 Dose: 17.2 mg Sertraline HCl (Sertraline Hcl 25 Mg Tablet) 75 mg PO DAILY [facility] Last Admin: 10/22/22 09:52 Dose: 75 mg Sodium Biphosphate/Sodium Phosphate (Sodium Phosphate,[place]-Dibasic 133 Ml Enema) 133 ml [place] ONCE PRN PRN Reason: Constipation Last Admin: 10/05/22 10:54 Dose: 133 ml Topiramate (Topiramate 25 Mg Tablet) 25 mg PO DAILY [facility] Last Admin: 10/22/22 09:52 Dose: 25 mg Allergies Allergies Allergy/AdvReac Type Severity Reaction Status Date / Time aripiprazole [Abilify] Allergy Unknown tongue Verified 08/18/22 05:59 swells and gain weight risperidone [From Risperdal] AdvReac Unknown gain Verified 08/18/22 05:59 weight, and slurred speech cariprazine [From Vraylar] AdvReac Verified 08/18/22 05:59 haloperidol [From Haldol] AdvReac DYSTONIA Verified 08/18/22 05:59 paliperidone AdvReac dystonia Verified 08/18/22 05:59 trazodone AdvReac DYSTONIA Verified 08/18/22 05:59 Assessment & Plan Assessment & Plan (1) Schizoaffective disorder, bipolar type: Status: Acute Code(s): F25.0 - Schizoaffective disorder, bipolar type Plan 22 yo female, history of schizoaffective disorder, bipolar type, PTSD, polysubstance use with current reports of increase in depressive sx with SI, SIBS and difficulty in her new correction in [place]. Plan: Collateral contact Increase Sertraline to 75 mg daily Encourage milieu involvement ?Caplyta, ?Clozaril trials-will discuss with pt, mother, Hermes's guardian. 10/01/22: Increase Latuda to 100 mg hs Application sent to [facility] 10/03/22: Amendment of community [facility]sh[facility] initiated. Clozaril on hold for this reason until completed. 10/04 continue current treatment plan 10/05 continue current treatment plan 10/07/22: Court date 10/14/22 to possibly amend [facility] and to begin Clozaril Continue current regime. 10/08/22: Tolerating recent increases of Latuda/Sertraline. Await court approval for potential Clozaril trial. 10/09/22: Continue current regime. 10/10/22: Olanzapine prn, Court to review Arsh[facility] on 10/14/22. 10/11: Continue current regimen and plans/awaiting court order on 10/14 10/12: Continue current regimen and plans 10/13: Continue current regimen and plans 10/16/22: Continue Clozapine 25 mg hs Discontinue Olanzapine scheduled Decrease Latuda to 80 mg 10/17/22: Increase Clozapine to 50 mg hs 10/18: continue current plan. 10/19: FU on tolerability of Clozapine by primary team. Continue same for now. 10/21/22: No changes today. Continue current regime and plan for now. 10/22/22: Continue current regime Patient educated on: medication risk/benefits, therapeutic strategies and medical condition Informed Consent: understands and further education needed Reason for contiued inpatient stay Substantial Risk for: harm to self, inability to function and rapid d ecompensation Time Spent With Patient Time: Total time managing care of this patient today ____ minutes.
[2022-10-22 17:00] VITALS: BP 121/72; PULSE 95; RESP 16; TEMP 36.2; O2SAT 98
[2022-10-22] MEDS: Lurasidone HCl 20 MG TABLET 60 MG PO (18:59)
[2022-10-22] MEDS: cloZAPine ODT 25 MG TAB.RAPDIS 75 MG PO (18:59)
[2022-10-22] MEDS: Sennosides 8.6 MG TABLET 17.2 MG PO (19:00)
[2022-10-23 07:00] VITALS: BMI 28.3
[2022-10-23] MEDS: Benztropine Mesylate 1 MG TABLET PO ×3 (09:20→20:07)
[2022-10-23] MEDS: Topiramate 25 MG TABLET PO (09:20)
[2022-10-23] MEDS: lamoTRIgine 100 MG TABLET PO (09:20)
[2022-10-23] MEDS: Sertraline HCL 25 MG TABLET 75 MG PO (09:20)
[2022-10-23 09:25] VITALS: BP 115/72; PULSE 89; RESP 14; TEMP 36.5; O2SAT 99
[2022-10-23] MEDS: Nicotine Polacrilex 2 MG GUM BUCCAL ×5 (12:02→20:08)
[2022-10-23 16:05] VITALS: BP 118/73; PULSE 76; RESP 18; TEMP 36.9; O2SAT 100
--- NOTE | 2022-10-23 16:52 | P.PNPSI_ITS ---
Subjective Subjective Date of Service: 10/23/22 Reason For Visit: Schizoaffective disorder Subjective Notes: Conditional Voluntary Healthcare Proxy: No Guardianship: No Medical Problems Affecting Mental Status: No Interim History: Discussed mothers hospitalization for increased anxiety. Reports she is doing well with this. I want mom to get the help she needs. Reports improved tolerance of Clozapine-less sedate, less tired. Voices are not as strong. Medication Compliance: Yes Side effects from medications: No Attending Groups: No Review of Systems Acute medical concerns: No Medical Review of Systems: unchanged Mental Status Exam Mental Status Exam Patient Appearance: Appropriate Patient Orientation: Person, Place, Time and Situation Level of Consciousness: Alert Patient Behavior: Appropriate, Talkative, Cooperative and Good Eye Contact Mood Description: Flat Affect Description: Flat Patient Cognition Impaired: No Ability to Follow Directions: Good Speech Pattern: Spontaneous Speech Memory Description: Intact Hallucinations: Auditory Delusions: Paranoid Ideation Perceptual Disturbances: Depersonalization and Derealization Thought Process: Distracted and Goal Oriented Thought Content: positive for Goal Oriented and positive for Perseveration Depressive Symptoms: Difficulty Concentrating Judgement: Fair Diagnostics Vital Signs (24Hr): Vital Signs - 24 hr 10/22/22 17:00 10/23/22 09:25 10/23/22 16:05 Temperature 97.1 F 97.7 F 98.4 F Pulse Rate 95 89 76 Respiratory Rate 16 14 18 Blood Pressure 121/72 115/72 118/73 Pulse Oximetry 98 99 100 Oxygen Delivery Method Room Air Room Air Room Air BMI result Body Mass Index 28.3 Labs 10/15/22 08:28 09/27/22 10:22 Labs: Laboratory Results - last 48 hr 10/22/22 09:24 Absolute Neuts (auto) 2.6 Medications Medications Current Medications Acetaminophen (Acetaminophen 325 Mg Tablet) 650 mg PO Q6H PRN PRN Reason: Headache/Pain Mild Scale (1-3) Al Hydroxide/Mg Hydroxide (Magnesium Hydrox/Alum Hydrox 30 Ml Oral.Susp) 30 ml PO Q6H PRN PRN Reason: Heartburn/Nausea Benztropine Mesylate (Benztropine Mesylate 1 Mg Tablet) 1 mg PO TID [facility] Last Admin: 10/23/22 14:00 Dose: 1 mg Clozapine (Clozapine Odt 25 Mg Tab.Rapdis) 75 mg PO 1900 [facility] Last Admin: 10/22/22 18:59 Dose: 75 mg Hydroxyzine HCl (Hydroxyzine Hcl 25 Mg Tablet) 25 mg PO Q6H PRN PRN Reason: Anxiety Last Admin: 10/19/22 13:16 Dose: 25 mg Lamotrigine (Lamotrigine 100 Mg Tablet) 100 mg PO DAILY [facility] Last Admin: 10/23/22 09:20 Dose: 100 mg Lurasidone HCl (Lurasidone Hcl 20 Mg Tablet) 60 mg PO BEDTIME [facility] Last Admin: 10/22/22 18:59 Dose: 60 mg Magnesium Hydroxide (Milk Of Magnesia 30 Ml Oral.Susp) 30 ml PO DAILY PRN PRN Reason: Constipation Nicotine Polacrilex (Nicotine Polacrilex 2 Mg Gum) 2 mg BUCCAL Q2H PRN PRN Reason: Smoking Cessation Last Admin: 10/23/22 16:15 Dose: 2 mg Olanzapine (Olanzapine 5 Mg Tablet) 5 mg PO Q4H PRN PRN Reason: psychotic agitation Last Admin: 10/15/22 16:54 Dose: 5 mg Pharmacy Consult (Consult Rx Perform Med Rec) 1 each MISCELLANE ONCE PRN PRN Reason: Consult order Senna (Sennosides 8.6 Mg Tablet) 17.2 mg PO BEDTIME [facility] Last Admin: 10/22/22 19:00 Dose: 17.2 mg Sertraline HCl (Sertraline Hcl 25 Mg Tablet) 75 mg PO DAILY [facility] Last Admin: 10/23/22 09:20 Dose: 75 mg Sodium Biphosphate/Sodium Phosphate (Sodium Phosphate,[place]-Dibasic 133 Ml Enema) 133 ml [place] ONCE PRN PRN Reason: Constipation Last Admin: 10/05/22 10:54 Dose: 133 ml Topiramate (Topiramate 25 Mg Tablet) 25 mg PO DAILY [facility] Last Admin: 10/23/22 09:20 Dose: 25 mg Allergies Allergies Allergy/AdvReac Type Severity Reaction Status Date / Time aripiprazole [Abilify] Allergy Unknown tongue Verified 08/18/22 05:59 swells and gain weight risperidone [From Risperdal] AdvReac Unknown gain Verified 08/18/22 05:59 weight, and slurred speech cariprazine [From Vraylar] AdvReac Verified 08/18/22 05:59 haloperidol [From Haldol] AdvReac DYSTONIA Verified 08/18/22 05:59 paliperidone AdvReac dystonia Verified 08/18/22 05:59 trazodone AdvReac DYSTONIA Verified 08/18/22 05:59 Assessment & Plan Assessment & Plan (1) Schizoaffective disorder, bipolar type: Status: Acute Code(s): F25.0 - Schizoaffective disorder, bipolar type Plan 22 yo female, history of schizoaffective disorder, bipolar type, PTSD, funmilayo ysubstance use with current reports of increase in depressive sx with SI, SIBS and difficulty in her new residential in [place]. Plan: Collateral contact Increase Sertraline to 75 mg daily Encourage milieu involvement ?Caplyta, ?Clozaril trials-will discuss with pt, mother, Hermes's guardian. 10/01/22: Increase Latuda to 100 mg hs Application sent to [facility] 10/03/22: Amendment of community [facility]sh[facility] initiated. Clozaril on hold for this reason until completed. 10/04 continue current treatment plan 10/05 continue current treatment plan 10/07/22: Court date 10/14/22 to possibly amend [facility] and to begin Clozaril Continue current regime. 10/08/22: Tolerating recent increases of Latuda/Sertraline. Await court approval for potential Clozaril trial. 10/09/22: Continue current regime. 10/10/22: Olanzapine prn, Court to review [facility]sh[facility] on 10/14/22. 10/11: Continue current regimen and plans/awaiting court order on 10/14 10/12: Continue current regimen and plans 10/13: Continue current regimen and plans 10/16/22: Continue Clozapine 25 mg hs Discontinue Olanzapine scheduled Decrease Latuda to 80 mg 10/17/22: Increase Clozapine to 50 mg hs 10/18: continue current plan. 10/19: FU on tolerability of Clozapine by primary team. Continue same for now. 10/21/22: No changes today. Continue current regime and plan for now. 10/22/22: Continue current regime 10/23/22: Continue current regime Patient educated on: therapeutic strategies Informed Consent: understands and further education needed Reason for contiued inpatient stay Substantial Risk for: rapid decompensation Time Spent With Patient Time: Total time managing care of this patient today ____ minutes.
[2022-10-23] MEDS: cloZAPine ODT 25 MG TAB.RAPDIS 75 MG PO (19:29)
[2022-10-23] MEDS: Sennosides 8.6 MG TABLET 17.2 MG PO (20:06)
[2022-10-23] MEDS: Lurasidone HCl 20 MG TABLET 60 MG PO (20:07)
[2022-10-24 00:04] VITALS: BP 110/65; PULSE 80; O2SAT 96
[2022-10-24 00:05] VITALS: BP 92/61; PULSE 95; O2SAT 98
[2022-10-24 00:06] VITALS: BP 84/40; PULSE 98; O2SAT 98
--- NOTE | 2022-10-24 00:06 | PC.NURSE ---
PT REPORTS FEELING LIGHT HEADED UPON STANDING AND NEEDS TO RUN BACK TO HER BED SO SHE DOESNT FALL . MD SABINA AVILA MADE AWARE. ORTHOSTATICS TAKEN. LYIN, 110/65, 96% SITTIN, 92/61, 98% STANDIN, 84/40, 98% PT INSTRUCTED TO HYDRATE PER DOCTORS ORDERS. WILL CONTINUE TO MONITOR.
[2022-10-24 09:11] VITALS: BP 109/68; PULSE 95; RESP 18; TEMP 36.6; O2SAT 95
[2022-10-24] MEDS: Benztropine Mesylate 1 MG TABLET PO ×3 (09:16→21:07)
[2022-10-24] MEDS: lamoTRIgine 100 MG TABLET PO (09:16)
[2022-10-24] MEDS: Topiramate 25 MG TABLET PO (09:16)
[2022-10-24] MEDS: Sertraline HCL 25 MG TABLET 75 MG PO (09:16)
[2022-10-24] MEDS: Nicotine Polacrilex 2 MG GUM BUCCAL ×6 (10:16→21:12)
[2022-10-24] MEDS: hydrOXYzine HCL 25 MG TABLET PO (12:56)
[2022-10-24] MEDS: OLANZapine 5 MG TABLET PO (12:56)
--- NOTE | 2022-10-24 14:25 | P.PNPSI_ITS ---
Subjective Subjective Date of Service: 10/24/22 Reason For Visit: Schizoaffective disorder Subjective Notes: Conditional Voluntary Healthcare Proxy: No Guardianship: Yes Medical Problems Affecting Mental Status: No Interim History: Poor appetite, however I am snacking States she is ready and willing to increase Clozapine- I think this might work for me Denies SE at this time. Denies medication concerns with current plan. Medication Compliance: Yes Side effects from medications: No Attending Groups: No Review of Systems Acute medical concerns: No Medical Review of Systems: unchanged Mental Status Exam Mental Status Exam Patient Appearance: Appropriate Patient Orientation: Person, Place, Time and Situation Level of Consciousness: Alert Patient Behavior: Appropriate, Talkative, Cooperative and Good Eye Contact Mood Description: Flat Affect Description: Flat Patient Cognition Impaired: No Ability to Follow Directions: Good Speech Pattern: Spontaneous Speech Memory Description: Intact Hallucinations: Auditory Delusions: Paranoid Ideation Perceptual Disturbances: Depersonalization and Derealization Thought Process: Distracted and Goal Oriented Thought Content: positive for Goal Oriented and positive for Perseveration Depressive Symptoms: Difficulty Concentrating Judgement: Fair Diagnostics Vital Signs (24Hr): Vital Signs - 24 hr 10/23/22 16:05 10/24/22 00:04 10/24/22 00:05 Temperature 98.4 F Pulse Rate 76 80 95 Respiratory Rate 18 Blood Pressure 118/73 110/65 92/61 Pulse Oximetry 100 96 98 Oxygen Delivery Method Room Air Room Air Room Air 10/24/22 00:06 10/24/22 09:11 Temperature 97.9 F Pulse Rate 98 95 Respiratory Rate 18 Blood Pressure 84/40 L 109/68 Pulse Oximetry 98 95 Oxygen Delivery Method Room Air Room Air BMI result Body Mass Index 28.3 Labs 10/15/22 08:28 09/27/22 10:22 Medications Medications Current Medications Acetaminophen (Acetaminophen 325 Mg Tablet) 650 mg PO Q6H PRN PRN Reason: Headache/Pain Mild Scale (1-3) Al Hydroxide/Mg Hydroxide (Magnesium Hydrox/Alum Hydrox 30 Ml Oral.Susp) 30 ml PO Q6H PRN PRN Reason: Heartburn/Nausea Benztropine Mesylate (Benztropine Mesylate 1 Mg Tablet) 1 mg PO TID [facility] Last Admin: 10/24/22 14:11 Dose: 1 mg Clozapine (Clozapine Odt 25 Mg Tab.Rapdis) 75 mg PO 1900 [facility] Last Admin: 10/23/22 19:29 Dose: 75 mg Hydroxyzine HCl (Hydroxyzine Hcl 25 Mg Tablet) 25 mg PO Q6H PRN PRN Reason: Anxiety Last Admin: 10/24/22 12:56 Dose: 25 mg Lamotrigine (Lamotrigine 100 Mg Tablet) 100 mg PO DAILY [facility] Last Admin: 10/24/22 09:16 Dose: 100 mg Lurasidone HCl (Lurasidone Hcl 20 Mg Tablet) 60 mg PO BEDTIME [facility] Last Admin: 10/23/22 20:07 Dose: 60 mg Magnesium Hydroxide (Milk Of Magnesia 30 Ml Oral.Susp) 30 ml PO DAILY PRN PRN Reason: Constipation Nicotine Polacrilex (Nicotine Polacrilex 2 Mg Gum) 2 mg BUCCAL Q2H PRN PRN Reason: Smoking Cessation Last Admin: 10/24/22 12:26 Dose: 2 mg Olanzapine (Olanzapine 5 Mg Tablet) 5 mg PO Q4H PRN PRN Reason: psychotic agitation Last Admin: 10/24/22 12:56 Dose: 5 mg Pharmacy Consult (Consult Rx Perform Med Rec) 1 each MISCELLANE ONCE PRN PRN Reason: Consult order Senna (Sennosides 8.6 Mg Tablet) 17.2 mg PO BEDTIME [facility] Last Admin: 10/23/22 20:06 Dose: 17.2 mg Sertraline HCl (Sertraline Hcl 25 Mg Tablet) 75 mg PO DAILY [facility] Last Admin: 10/24/22 09:16 Dose: 75 mg Sodium Biphosphate/Sodium Phosphate (Sodium Phosphate,[place]-Dibasic 133 Ml Enema) 133 ml [place] ONCE PRN PRN Reason: Constipation Last Admin: 10/05/22 10:54 Dose: 133 ml Topiramate (Topiramate 25 Mg Tablet) 25 mg PO DAILY [facility] Last Admin: 10/24/22 09:16 Dose: 25 mg Allergies Allergies Allergy/AdvReac Type Severity Reaction Status Date / Time aripiprazole [Abilify] Allergy Unknown tongue Verified 08/18/22 05:59 swells and gain weight risperidone [From Risperdal] AdvReac Unknown gain Verified 08/18/22 05:59 weight, and slurred speech cariprazine [From Vraylar] AdvReac Verified 08/18/22 05:59 haloperidol [From Haldol] AdvReac DYSTONIA Verified 08/18/22 05:59 paliperidone AdvReac dystonia Verified 08/18/22 05:59 trazodone AdvReac DYSTONIA Verified 08/18/22 05:59 Assessment & Plan Assessment & Plan (1) Schizoaffective disorder, bipolar type: Status: Acute Code(s): F25.0 - Schizoaffective disorder, bipolar type Plan 22 yo female, history of schizoaffective disorder, bipolar type, PTSD, polysubstance use with current reports of increase in depressive sx with SI, SIBS and difficulty in her new skilled nursing in [place]. Plan: Collateral contact Increase Sertraline to 75 mg daily Encourage milieu involvement ?Caplyta, ?Clozaril trials-will discuss with pt, mother, Hermes's guardian. 10/01/22: Increase Latuda to 100 mg hs Application sent to [facility] 10/03/22: Amendment of community Arshad initiated. Clozaril on hold for this reason until completed. 10/04 continue current treatment plan 10/05 continue current treatment plan 10/07/22: Court date 10/14/22 to possibly amend [facility] and to begin Clozaril Continue current regime. 10/08/22: Tolerating recent increases of Latuda/Sertraline. Await court approval for potential Clozaril trial. 10/09/22: Continue current regime. 10/10/22: Olanzapine prn, Court to review Jeancarlos on 10/14/22. 10/11: Continue current regimen and plans/awaiting court order on 10/14 10/12: Continue current regimen and plans 10/13: Continue current regimen and plans 10/16/22: Continue Clozapine 25 mg hs Discontinue Olanzapine scheduled Decrease Latuda to 80 mg 10/17/22: Increase Clozapine to 50 mg hs 10/18: continue current plan. 10/19: FU on tolerability of Clozapine by primary team. Continue same for now. 10/21/22: No changes today. Continue current regime and plan for now. 10/22/22: Continue current regime 10/24/22: Increase Clozapine to 100 mg HS Informed Consent: understands Reason for contiued inpatient stay Substantial Risk for: rapid decompensation Time Spent With Patient Time: Total time managing care of this patient today ____ minutes.
[2022-10-24 16:55] VITALS: BP 115/50; PULSE 119; TEMP 36.3
[2022-10-24] MEDS: Sennosides 8.6 MG TABLET 17.2 MG PO (21:06)
[2022-10-24] MEDS: Lurasidone HCl 20 MG TABLET 60 MG PO (21:06)
[2022-10-24] MEDS: cloZAPine ODT 25 MG TAB.RAPDIS 100 MG PO (21:07)
[2022-10-25] MEDS: Sertraline HCL 25 MG TABLET 75 MG PO (09:42)
[2022-10-25] MEDS: Benztropine Mesylate 1 MG TABLET PO ×3 (09:42→21:33)
[2022-10-25] MEDS: Topiramate 25 MG TABLET PO (09:42)
[2022-10-25] MEDS: lamoTRIgine 100 MG TABLET PO (09:42)
--- NOTE | 2022-10-25 09:45 | P.PNPSI_ITS ---
Subjective Subjective Date of Service: 10/25/22 Reason For Visit: Schizoaffective disorder Subjective Notes: Conditional Voluntary Healthcare Proxy: No Guardianship: No Medical Problems Affecting Mental Status: No Interim History: Doesn't want to eat due to being on clozapine- wonders if it is a condition of dc- if she doesn't eat enough- Says she is sedated in am from clozapine but once she gets up and going she is ok - doesn't want to gain weight Medication Compliance: Yes Side effects from medications: No Attending Groups: Intermittent Review of Systems Acute medical concerns: No Medical Review of Systems: unchanged Mental Status Exam Mental Status Exam Narrative: lying in bed, later talking with provider and nursing at nurses desk spent time playing with aunt in group room- l/r/center Patient Appearance: Appropriate Patient Orientation: Person, Place, Time and Situation Level of Consciousness: Awake and Drowsy Patient Behavior: Appropriate and Cooperative Mood Description: Calm Affect Description: Blunted Patient Cognition Impaired: No Ability to Follow Directions: Fair Speech Pattern: Clear and Impoverished Thought Process: Intact and Goal Oriented Thought Content: positive for Poverty of Content Judgement: Fair Diagnostics Vital Signs (24Hr): Vital Signs - 24 hr 10/24/22 16:55 Temperature 97.4 F Pulse Rate 119 H Blood Pressure 115/50 L BMI result Body Mass Index 28.3 Labs 10/15/22 08:28 09/27/22 10:22 Medications Medications Current Medications Acetaminophen (Acetaminophen 325 Mg Tablet) 650 mg PO Q6H PRN PRN Reason: Headache/Pain Mild Scale (1-3) Al Hydroxide/Mg Hydroxide (Magnesium Hydrox/Alum Hydrox 30 Ml Oral.Susp) 30 ml PO Q6H PRN PRN Reason: Heartburn/Nausea Benztropine Mesylate (Benztropine Mesylate 1 Mg Tablet) 1 mg PO TID [facility] Last Admin: 10/25/22 09:42 Dose: 1 mg Clozapine (Clozapine Odt 25 Mg Tab.Rapdis) 100 mg PO 1900 [facility] Last Admin: 10/24/22 21:07 Dose: 100 mg Hydroxyzine HCl (Hydroxyzine Hcl 25 Mg Tablet) 25 mg PO Q6H PRN PRN Reason: Anxiety Last Admin: 10/24/22 12:56 Dose: 25 mg Lamotrigine (Lamotrigine 100 Mg Tablet) 100 mg PO DAILY [facility] Last Admin: 10/25/22 09:42 Dose: 100 mg Lurasidone HCl (Lurasidone Hcl 20 Mg Tablet) 60 mg PO BEDTIME [facility] Last Admin: 10/24/22 21:06 Dose: 60 mg Magnesium Hydroxide (Milk Of Magnesia 30 Ml Oral.Susp) 30 ml PO DAILY PRN PRN Reason: Constipation Nicotine Polacrilex (Nicotine Polacrilex 2 Mg Gum) 2 mg BUCCAL Q2H PRN PRN Reason: Smoking Cessation Last Admin: 10/24/22 21:12 Dose: 2 mg Olanzapine (Olanzapine 5 Mg Tablet) 5 mg PO Q4H PRN PRN Reason: psychotic agitation Last Admin: 10/24/22 12:56 Dose: 5 mg Pharmacy Consult (Consult Rx Perform Med Rec) 1 each MISCELLANE ONCE PRN PRN Reason: Consult order Senna (Sennosides 8.6 Mg Tablet) 17.2 mg PO BEDTIME [facility] Last Admin: 10/24/22 21:06 Dose: 17.2 mg Sertraline HCl (Sertraline Hcl 25 Mg Tablet) 75 mg PO DAILY [facility] Last Admin: 10/25/22 09:42 Dose: 75 mg Sodium Biphosphate/Sodium Phosphate (Sodium Phosphate,[place]-Dibasic 133 Ml Enema) 133 ml [place] ONCE PRN PRN Reason: Constipation Last Admin: 10/05/22 10:54 Dose: 133 ml Topiramate (Topiramate 25 Mg Tablet) 25 mg PO DAILY [facility] Last Admin: 10/25/22 09:42 Dose: 25 mg Allergies Allergies Allergy/AdvReac Type Severity Reaction Status Date / Time aripiprazole [Abilify] Allergy Unknown tongue Verified 08/18/22 05:59 swells and gain weight risperidone [From Risperdal] AdvReac Unknown gain Verified 08/18/22 05:59 weight, and slurred speech cariprazine [From Vraylar] AdvReac Verified 08/18/22 05:59 haloperidol [From Haldol] AdvReac DYSTONIA Verified 08/18/22 05:59 paliperidone AdvReac dystonia Verified 08/18/22 05:59 trazodone AdvReac DYSTONIA Verified 08/18/22 05:59 Assessment & Plan Assessment & Plan (1) Schizoaffective disorder, bipolar type: Status: Acute Code(s): F25.0 - Schizoaffective disorder, bipolar type Assessment and Plan: continues on clozapine, concerned to not gain weight so actively eating less? of hx of eating do Plan 22 yo female, history of schizoaffective disorder, bipolar type, PTSD, polysubstance use with current reports of increase in depressive sx with SI, SIBS and difficulty in her new fdc in [place]. Plan: Collateral contact Increase Sertraline to 75 mg daily Encourage milieu involvement ?Caplyta, ?Clozaril trials-will discuss with pt, mother, Hermes's guardian. 10/01/22: Increase Latuda to 100 mg hs Application sent to [facility] 10/03/22: Amendment of community Arshad initiated. Clozaril on hold for this reason until completed. 10/04 continue current treatment plan 10/05 continue current treatment plan 10/07/22: Court date 10/14/22 to possibly amend [facility] and to begin Clozaril Continue current regime. 10/08/22: Tolerating recent increases of Latuda/Sertraline. Await court approval for potential Clozaril trial. 10/09/22: Continue current regime. 10/10/22: Olanzapine prn, Court to review Jeancarlos on 10/14/22. 10/11: Continue current regimen and plans/awaiting court order on 10/14 10/12: Continue current regimen and plans 10/13: Continue current regimen and plans 10/16/22: Continue Clozapine 25 mg hs Discontinue Olanzapine scheduled Decrease Latuda to 80 mg 10/17/22: Increase Clozapine to 50 mg hs 10/18: continue current plan. 10/19: FU on tolerability of Clozapine by primary team. Continue same for now. 10/21/22: No changes today. Continue current regime and plan for now. 10/22/22: Continue current regime 10/24/22: Increase Clozapine to 100 mg HS Patient educated on: medication risk/benefits and therapeutic strategies Informed Consent: further education needed Reason for contiued inpatient stay Substantial Risk for: rapid decompensation Time Spent With Patient Time: Total time managing care of this patient today ____ minutes.
[2022-10-25] MEDS: Nicotine Polacrilex 2 MG GUM BUCCAL ×5 (10:44→22:42)
[2022-10-25 10:50] VITALS: BP 112/67; PULSE 89; RESP 16; TEMP 36.4; O2SAT 95
[2022-10-25] MEDS: hydrOXYzine HCL 25 MG TABLET PO (14:27)
[2022-10-25] MEDS: OLANZapine 5 MG TABLET PO (14:27)
[2022-10-25 17:25] VITALS: BP 123/74; PULSE 107; TEMP 37.1
[2022-10-25] MEDS: Sennosides 8.6 MG TABLET 17.2 MG PO (21:32)
[2022-10-25] MEDS: cloZAPine ODT 25 MG TAB.RAPDIS 100 MG PO (21:33)
[2022-10-25] MEDS: Lurasidone HCl 20 MG TABLET 60 MG PO (21:33)
[2022-10-26] MEDS: Benztropine Mesylate 1 MG TABLET PO ×3 (09:36→21:07)
[2022-10-26] MEDS: lamoTRIgine 100 MG TABLET PO (09:36)
[2022-10-26] MEDS: Topiramate 25 MG TABLET PO (09:36)
[2022-10-26] MEDS: Sertraline HCL 25 MG TABLET 75 MG PO (09:36)
[2022-10-26 09:40] VITALS: BP 106/68; PULSE 89; RESP 16; TEMP 36.2; O2SAT 96
--- NOTE | 2022-10-26 10:09 | HO.PSYCHPN ---
Subjective Subjective Date of Service: 10/26/22 Reason For Visit: Schizoaffective disorder Subjective Notes: Conditional Voluntary Healthcare Proxy: No Guardianship: No Medical Problems Affecting Mental Status: No Review of Systems Medical Review of Systems: unchanged Mental Status Exam Mental Status Exam Patient Appearance: Well Grooomed and Appropriate Patient Orientation: Person, Place, Time and Situation Level of Consciousness: Awake Patient Behavior: Appropriate Mood Description: Calm Affect Description: Blunted Patient Cognition Impaired: No Ability to Follow Directions: Fair Speech Pattern: Clear Thought Process: Distracted and Slowed Thinking Thought Content: positive for Disorganized Judgement: Fair Diagnostics Vital Signs (24Hr): Vital Signs - 24 hr 10/25/22 10:50 10/25/22 17:25 10/26/22 09:40 Temperature 97.6 F 98.8 F 97.2 F Pulse Rate 89 107 H 89 Respiratory Rate 16 16 Blood Pressure 112/67 123/74 106/68 Pulse Oximetry 95 96 Oxygen Delivery Method Room Air Room Air BMI result Body Mass Index 28.3 Labs 10/15/22 08:28 09/27/22 10:22 Medications Medications Current Medications Acetaminophen (Acetaminophen 325 Mg Tablet) 650 mg PO Q6H PRN PRN Reason: Headache/Pain Mild Scale (1-3) Al Hydroxide/Mg Hydroxide (Magnesium Hydrox/Alum Hydrox 30 Ml Oral.Susp) 30 ml PO Q6H PRN PRN Reason: Heartburn/Nausea Benztropine Mesylate (Benztropine Mesylate 1 Mg Tablet) 1 mg PO TID [facility] Last Admin: 10/26/22 09:36 Dose: 1 mg Clozapine (Clozapine Odt 25 Mg Tab.Rapdis) 100 mg PO 1900 [facility] Last Admin: 10/25/22 21:33 Dose: 100 mg Hydroxyzine HCl (Hydroxyzine Hcl 25 Mg Tablet) 25 mg PO Q6H PRN PRN Reason: Anxiety Last Admin: 10/25/22 14:27 Dose: 25 mg Lamotrigine (Lamotrigine 100 Mg Tablet) 100 mg PO DAILY [facility] Last Admin: 10/26/22 09:36 Dose: 100 mg Lurasidone HCl (Lurasidone Hcl 20 Mg Tablet) 60 mg PO BEDTIME [facility] Last Admin: 10/25/22 21:33 Dose: 60 mg Magnesium Hydroxide (Milk Of Magnesia 30 Ml Oral.Susp) 30 ml PO DAILY PRN PRN Reason: Constipation Nicotine Polacrilex (Nicotine Polacrilex 2 Mg Gum) 2 mg BUCCAL Q2H PRN PRN Reason: Smoking Cessation Last Admin: 10/25/22 22:42 Dose: 2 mg Olanzapine (Olanzapine 5 Mg Tablet) 5 mg PO Q4H PRN PRN Reason: psychotic agitation Last Admin: 10/25/22 14:27 Dose: 5 mg Pharmacy Consult (Consult Rx Perform Med Rec) 1 each MISCELLANE ONCE PRN PRN Reason: Consult order Senna (Sennosides 8.6 Mg Tablet) 17.2 mg PO BEDTIME [facility] Last Admin: 10/25/22 21:32 Dose: 17.2 mg Sertraline HCl (Sertraline Hcl 25 Mg Tablet) 75 mg PO DAILY [facility] Last Admin: 10/26/22 09:36 Dose: 75 mg Sodium Biphosphate/Sodium Phosphate (Sodium Phosphate,[place]-Dibasic 133 Ml Enema) 133 ml [place] ONCE PRN PRN Reason: Constipation Last Admin: 10/05/22 10:54 Dose: 133 ml Topiramate (Topiramate 25 Mg Tablet) 25 mg PO DAILY [facility] Last Admin: 10/26/22 09:36 Dose: 25 mg Allergies Allergies Allergy/AdvReac Type Severity Reaction Status Date / Time aripiprazole [Abilify] Allergy Unknown tongue Verified 08/18/22 05:59 swells and gain weight risperidone [From Risperdal] AdvReac Unknown gain Verified 08/18/22 05:59 weight, and slurred speech cariprazine [From Vraylar] AdvReac Verified 08/18/22 05:59 haloperidol [From Haldol] AdvReac DYSTONIA Verified 08/18/22 05:59 paliperidone AdvReac dystonia Verified 08/18/22 05:59 trazodone AdvReac DYSTONIA Verified 08/18/22 05:59 Assessment & Plan Assessment & Plan (1) Schizoaffective disorder, bipolar type: Status: Acute Code(s): F25.0 - Schizoaffective disorder, bipolar type Assessment and Plan: continues on clozapine, concerned to not gain weight so actively eating less? of hx of eating do 10/26/22 wants to inc clozapine worried about having to stay 2 weeks Plan 22 yo female, history of schizoaffective disorder, bipolar type, PTSD, polysubstance use with current reports of increase in depressive sx with SI, SIBS and difficulty in her new retirement in [place]. Plan: Collateral contact Increase Sertraline to 75 mg daily Encourage milieu involvement ?Caplyta, ?Clozaril trials-will discuss with pt, mother, Hermes's guardian. 10/01/22: Increase Latuda to 100 mg hs Application sent to [facility] 10/03/22: Amendment of community Arshad initiated. Clozaril on hold for this reason until completed. 10/04 continue current treatment plan 10/05 continue current treatment plan 10/07/22: Court date 10/14/22 to possibly amend [facility] and to begin Clozaril Continue current regime. 10/08/22: Tolerating recent increases of Latuda/Sertraline. Await court approval for potential Clozaril trial. 10/09/22: Continue current regime. 10/10/22: Olanzapine prn, Court to review Jeancarlos on 10/14/22. 10/11: Continue current regimen and plans/awaiting court order on 10/14 10/12: Continue current regimen and plans 10/13: Continue current regimen and plans 10/16/22: Continue Clozapine 25 mg hs Discontinue Olanzapine scheduled Decrease Latuda to 80 mg 10/17/22: Increase Clozapine to 50 mg hs 10/18: continue current plan. 10/19: FU on tolerability of Clozapine by primary team. Continue same for now. 10/21/22: No changes today. Continue current regime and plan for now. 10/22/22: Continue current regime 10/24/22: Increase Clozapine to 100 mg HS Patient educated on: medication risk/benefits and other (fig caprifier/ob consult requested by pt) Informed Consent: understands Reason for contiued inpatient stay Substantial Risk for: inability to function and rapid decompensation Time Spent With Patient Time: Total time managing care of this patient today ____ minutes.
[2022-10-26] MEDS: Nicotine Polacrilex 2 MG GUM BUCCAL ×5 (13:03→21:13)
[2022-10-26] MEDS: hydrOXYzine HCL 25 MG TABLET PO (16:46)
[2022-10-26] MEDS: OLANZapine 5 MG TABLET PO ×2 (16:46→21:12)
[2022-10-26 21:06] VITALS: BP 120/58; PULSE 120; RESP 14; TEMP 36.5
[2022-10-26] MEDS: Lurasidone HCl 20 MG TABLET 60 MG PO (21:07)
[2022-10-26] MEDS: Sennosides 8.6 MG TABLET 17.2 MG PO (21:07)
[2022-10-26] MEDS: cloZAPine ODT 25 MG TAB.RAPDIS 100 MG PO (21:07)
[2022-10-27] MEDS: Benztropine Mesylate 1 MG TABLET PO ×3 (09:20→21:00)
[2022-10-27] MEDS: lamoTRIgine 100 MG TABLET PO (09:20)
[2022-10-27] MEDS: Sertraline HCL 25 MG TABLET 75 MG PO (09:20)
[2022-10-27] MEDS: Topiramate 25 MG TABLET PO (09:20)
[2022-10-27] MEDS: Nicotine Polacrilex 2 MG GUM BUCCAL ×5 (12:08→22:29)
--- NOTE | 2022-10-27 17:19 | P.PNPSI_ITS ---
Subjective Subjective Date of Service: 10/27/22 Reason For Visit: Schizoaffective disorder Subjective Notes: Conditional Voluntary Interim History: Liane reports a fair weekend. Voices are still present, but lessened. Seen in miliue responding to internal stimuli. States no adverse effects from Clozapine, prepared for increase and requests increase. Tearful when discussing body image issues, low self-esteem and what the voices say about her-derrogatory comments- ugly, fat, stupid, useless, unlovable and invisable. Discussed each allegation with counterpoints. Medication Compliance: Yes Side effects from medications: No Attending Groups: No Review of Systems Acute medical concerns: No Medical Review of Systems: unchanged Mental Status Exam Mental Status Exam Patient Appearance: Appropriate Patient Orientation: Person, Place, Time and Situation Level of Consciousness: Alert Patient Behavior: Talkative and Good Eye Contact Mood Description: Sad Affect Description: Flat Patient Cognition Impaired: Yes Ability to Follow Directions: Good Speech Pattern: Spontaneous Speech Memory Description: Episodic Impaired Hallucinations: Auditory, Visual and Command Delusions: Being Controlled, Paranoid Ideation, Present and Thought Insert/Delete Perceptual Disturbances: Depersonalization and Derealization Thought Process: Racing, Distracted, Rumination and Goal Oriented Thought Content: positive for Circumstantial, positive for Perseveration and positive for Suicidal Ideation (denies) Depressive Symptoms: Increased Anxiety, Increased Irritability, Loss of Int. in Activity, Feelings of Worthlessness, Hopelessness, Feelings of Guilt, Unhappiness, Thoughts of /Suicide (denies) and Low Self Esteem Abnormal Motor Activity Signs and Symptoms: Restlessness Judgement: Fair Diagnostics Vital Signs (24Hr): Vital Signs - 24 hr 10/26/22 21:06 Temperature 97.7 F Pulse Rate 120 H Respiratory Rate 14 Blood Pressure 120/58 L BMI result Body Mass Index 28.3 Labs 10/15/22 08:28 09/27/22 10:22 Medications Medications Current Medications Acetaminophen (Acetaminophen 325 Mg Tablet) 650 mg PO Q6H PRN PRN Reason: Headache/Pain Mild Scale (1-3) Al Hydroxide/Mg Hydroxide (Magnesium Hydrox/Alum Hydrox 30 Ml Oral.Susp) 30 ml PO Q6H PRN PRN Reason: Heartburn/Nausea Benztropine Mesylate (Benztropine Mesylate 1 Mg Tablet) 1 mg PO TID [facility] Last Admin: 10/27/22 14:42 Dose: 1 mg Bisacodyl (Bisacodyl 5 Mg Tablet.Dr) 10 mg PO DAILY PRN PRN Reason: Constipation Clozapine (Clozapine Odt 25 Mg Tab.Rapdis) 125 mg PO 1900 [facility] Hydroxyzine HCl (Hydroxyzine Hcl 25 Mg Tablet) 25 mg PO Q6H PRN PRN Reason: Anxiety Last Admin: 10/26/22 16:46 Dose: 25 mg Lamotrigine (Lamotrigine 100 Mg Tablet) 100 mg PO DAILY [facility] Last Admin: 10/27/22 09:20 Dose: 100 mg Lurasidone HCl (Lurasidone Hcl 40 Mg Tablet) 40 mg PO BEDTIME [facility] Magnesium Hydroxide (Milk Of Magnesia 30 Ml Oral.Susp) 30 ml PO DAILY PRN PRN Reason: Constipation Nicotine Polacrilex (Nicotine Polacrilex 2 Mg Gum) 2 mg BUCCAL Q2H PRN PRN Reason: Smoking Cessation Last Admin: 10/27/22 16:16 Dose: 2 mg Olanzapine (Olanzapine 5 Mg Tablet) 5 mg PO Q4H PRN PRN Reason: psychotic agitation Last Admin: 10/26/22 21:12 Dose: 5 mg Pharmacy Consult (Consult Rx Perform Med Rec) 1 each MISCELLANE ONCE PRN PRN Reason: Consult order Senna (Sennosides 8.6 Mg Tablet) 17.2 mg PO BEDTIME [facility] Last Admin: 10/26/22 21:07 Dose: 17.2 mg Sertraline HCl (Sertraline Hcl 25 Mg Tablet) 75 mg PO DAILY [facility] Last Admin: 10/27/22 09:20 Dose: 75 mg Sodium Biphosphate/Sodium Phosphate (Sodium Phosphate,[place]-Dibasic 133 Ml Enema) 133 ml [place] ONCE PRN PRN Reason: Constipation Last Admin: 10/05/22 10:54 Dose: 133 ml Topiramate (Topiramate 25 Mg Tablet) 25 mg PO DAILY [facility] Last Admin: 10/27/22 09:20 Dose: 25 mg Allergies Allergies Allergy/AdvReac Type Severity Reaction Status Date / Time aripiprazole [Abilify] Allergy Unknown tongue Verified 08/18/22 05:59 swells and gain weight risperidone [From Risperdal] AdvReac Unknown gain Verified 08/18/22 05:59 weight, and slurred speech cariprazine [From Vraylar] AdvReac Verified 12/26/22 05:59 haloperidol [From Haldol] AdvReac DYSTONIA Verified 08/18/22 05:59 paliperidone AdvReac dystonia Verified 08/18/22 05:59 trazodone AdvReac DYSTONIA Verified 08/18/22 05:59 Assessment & Plan Assessment & Plan (1) Schizoaffective disorder, bipolar type: Status: Acute Code(s): F25.0 - Schizoaffective disorder, bipolar type Assessment and Plan: continues on clozapine, concerned to not gain weight so actively eating less? of hx of eating do 10/26/22 wants to inc clozapine worried about having to stay 2 weeks Plan 22 yo female, history of schizoaffective disorder, bipolar type, PTSD, polysubstance use with current reports of increase in depressive sx with SI, SIBS and difficulty in her new [facility] in [place]. Plan: Collateral contact Increase Sertraline to 75 mg daily Encourage milieu involvement ?Caplyta, ?Clozaril trials-will discuss with pt, mother, Hermes's guardian. 10/01/22: Increase Latuda to 100 mg hs Application sent to [facility] 10/03/22: Amendment of community Arshad initiated. Clozaril on hold for this reason until completed. 10/04 continue current treatment plan 10/05 continue current treatment plan 10/07/22: Court date 10/14/22 to possibly amend [facility] and to begin Clozaril Continue current regime. 10/08/22: Tolerating recent increases of Latuda/Sertraline. Await court approval for potential Clozaril trial. 10/09/22: Continue current regime. 10/10/22: Olanzapine prn, Court to review Arshad on 10/14/22. 10/11: Continue current regimen and plans/awaiting court order on 10/14 10/12: Continue current regimen and plans 10/13: Continue current regimen and plans 10/16/22: Continue Clozapine 25 mg hs Discontinue Olanzapine scheduled Decrease Latuda to 80 mg 10/17/22: Increase Clozapine to 50 mg hs 10/18: continue current plan. 10/19: FU on tolerability of Clozapine by primary team. Continue same for now. 10/21/22: No changes today. Continue current regime and plan for now. 10/22/22: Continue current regime 10/24/22: Increase Clozapine to 100 mg HS 10/27/22: Increase Clozapine to 125 mg HS Patient educated on: medication risk/benefits and therapeutic strategies Informed Consent: understands Reason for contiued inpatient stay Substantial Risk for: inability to function and rapid decompensation Time Spent With Patient Time: Total time managing care of this patient today 20 minutes.
[2022-10-27 18:00] VITALS: BP 133/79; PULSE 93; TEMP 36.6; O2SAT 99
[2022-10-27] MEDS: OLANZapine 5 MG TABLET PO (19:03)
[2022-10-27] MEDS: hydrOXYzine HCL 25 MG TABLET PO (19:03)
[2022-10-27] MEDS: cloZAPine ODT 25 MG TAB.RAPDIS 125 MG PO (20:59)
[2022-10-27] MEDS: Sennosides 8.6 MG TABLET 17.2 MG PO (20:59)
[2022-10-27] MEDS: Lurasidone HCl 40 MG TABLET PO (21:00)
[2022-10-28 06:00] VITALS: BP 111/69; PULSE 101; RESP 14; TEMP 36.9
[2022-10-28] MEDS: Sertraline HCL 25 MG TABLET 75 MG PO (09:55)
[2022-10-28] MEDS: Topiramate 25 MG TABLET PO (09:55)
[2022-10-28] MEDS: Benztropine Mesylate 1 MG TABLET PO ×3 (09:55→19:22)
[2022-10-28] MEDS: lamoTRIgine 100 MG TABLET PO (09:55)
[2022-10-28] MEDS: Nicotine Polacrilex 2 MG GUM BUCCAL ×4 (11:45→18:37)
[2022-10-28] MEDS: bisacodyL 5 MG TABLET.DR 10 MG PO (14:59)
[2022-10-28] MEDS: hydrOXYzine HCL 25 MG TABLET PO (14:59)
[2022-10-28] MEDS: OLANZapine 5 MG TABLET PO (14:59)
--- NOTE | 2022-10-28 16:44 | HO.PSYCHPN ---
Subjective Subjective Date of Service: 10/28/22 Reason For Visit: Schizoaffective disorder Subjective Notes: Conditional Voluntary Interim History: Tolerating Clozaril at 125 mg. Reports awakening with right arm being asleep. Discussed bowel regime-will begin Colace/Miralax to add to Senakot-pt agrees. Continues to experience internal stimuli, but with less intensity, thinks this medication may have a chance to be effective. Discussed mother's discharge from the hospital and return home. Pt reports she will be happy to see her again when visiting. Medication Compliance: Yes Side effects from medications: No Attending Groups: No Review of Systems Acute medical concerns: No Medical Review of Systems: unchanged Mental Status Exam Mental Status Exam Patient Appearance: Appropriate Patient Orientation: Person, Place, Time and Situation Level of Consciousness: Alert Patient Behavior: Talkative and Good Eye Contact Mood Description: Sad Affect Description: Flat Patient Cognition Impaired: Yes Ability to Follow Directions: Good Speech Pattern: Spontaneous Speech Memory Description: Episodic Impaired Hallucinations: Auditory, Visual and Command Delusions: Being Controlled, Paranoid Ideation, Present and Thought Insert/Delete Perceptual Disturbances: Depersonalization and Derealization Thought Process: Racing, Distracted, Rumination and Goal Oriented Thought Content: positive for Circumstantial, positive for Perseveration and positive for Suicidal Ideation (denies) Depressive Symptoms: Increased Anxiety, Increased Irritability, Loss of Int. in Activity, Feelings of Worthlessness, Hopelessness, Feelings of Guilt, Unhappiness, Thoughts of /Suicide (denies) and Low Self Esteem Abnormal Motor Activity Signs and Symptoms: Restlessness Judgement: Fair Diagnostics Vital Signs (24Hr): Vital Signs - 24 hr 10/27/22 18:00 10/28/22 06:00 Temperature 97.8 F 98.4 F Pulse Rate 93 101 H Respiratory Rate 14 Blood Pressure 133/79 111/69 Pulse Oximetry 99 Oxygen Delivery Method Room Air BMI result Body Mass Index 28.3 Labs 10/15/22 08:28 09/27/22 10:22 Medications Medications Current Medications Acetaminophen (Acetaminophen 325 Mg Tablet) 650 mg PO Q6H PRN PRN Reason: Headache/Pain Mild Scale (1-3) Al Hydroxide/Mg Hydroxide (Magnesium Hydrox/Alum Hydrox 30 Ml Oral.Susp) 30 ml PO Q6H PRN PRN Reason: Heartburn/Nausea Benztropine Mesylate (Benztropine Mesylate 1 Mg Tablet) 1 mg PO TID [facility] Last Admin: 10/28/22 13:54 Dose: 1 mg Bisacodyl (Bisacodyl 5 Mg Tablet.Dr) 10 mg PO DAILY PRN PRN Reason: Constipation Last Admin: 10/28/22 14:59 Dose: 10 mg Clozapine (Clozapine Odt 25 Mg Tab.Rapdis) 125 mg PO 1900 [facility] Last Admin: 10/27/22 20:59 Dose: 125 mg Hydroxyzine HCl (Hydroxyzine Hcl 25 Mg Tablet) 25 mg PO Q6H PRN PRN Reason: Anxiety Last Admin: 10/28/22 14:59 Dose: 25 mg Lamotrigine (Lamotrigine 100 Mg Tablet) 100 mg PO DAILY [facility] Last Admin: 10/28/22 09:55 Dose: 100 mg Lurasidone HCl (Lurasidone Hcl 40 Mg Tablet) 40 mg PO BEDTIME [facility] Last Admin: 10/27/22 21:00 Dose: 40 mg Magnesium Hydroxide (Milk Of Magnesia 30 Ml Oral.Susp) 30 ml PO DAILY PRN PRN Reason: Constipation Nicotine Polacrilex (Nicotine Polacrilex 2 Mg Gum) 2 mg BUCCAL Q2H PRN PRN Reason: Smoking Cessation Last Admin: 10/28/22 16:07 Dose: 2 mg Olanzapine (Olanzapine 5 Mg Tablet) 5 mg PO Q4H PRN PRN Reason: psychotic agitation Last Admin: 10/28/22 14:59 Dose: 5 mg Pharmacy Consult (Consult Rx Perform Med Rec) 1 each MISCELLANE ONCE PRN PRN Reason: Consult order Senna (Sennosides 8.6 Mg Tablet) 17.2 mg PO BEDTIME [facility] Last Admin: 10/27/22 20:59 Dose: 17.2 mg Sertraline HCl (Sertraline Hcl 25 Mg Tablet) 75 mg PO DAILY [facility] Last Admin: 10/28/22 09:55 Dose: 75 mg Sodium Biphosphate/Sodium Phosphate (Sodium Phosphate,[place]-Dibasic 133 Ml Enema) 133 ml [place] ONCE PRN PRN Reason: Constipation Last Admin: 10/05/22 10:54 Dose: 133 ml Topiramate (Topiramate 25 Mg Tablet) 25 mg PO DAILY [facility] Last Admin: 10/28/22 09:55 Dose: 25 mg Allergies Allergies Allergy/AdvReac Type Severity Reaction Status Date / Time aripiprazole [Abilify] Allergy Unknown tongue Verified 08/18/22 05:59 swells and gain weight risperidone [From Risperdal] AdvReac Unknown gain Verified 08/18/22 05:59 weight, and slurred speech cariprazine [From Vraylar] AdvReac Verified 08/18/22 05:59 haloperidol [From Haldol] AdvReac DYSTONIA Verified 08/18/22 05:59 paliperidone AdvReac dystonia Verified 08/18/22 05:59 trazodone AdvReac DYSTONIA Verified 08/18/22 05:59 Assessment & Plan Assessment & Plan (1) Schizoaffective disorder, bipolar type: Status: Acute Code(s): F25.0 - Schizoaffective disorder, bipolar type Assessment and Plan: continues on clozapine, concerned to not gain weight so actively eating less? of hx of eating do 10/26/22 wants to inc clozapine worried about having to stay 2 weeks Plan 22 yo female, history of schizoaffective disorder, bipolar type, PTSD, polysubstance use with current reports of increase in depressive sx with SI, SIBS and difficulty in her new intermediate in [place]. Plan: Collateral contact Increase Sertraline to 75 mg daily Encourage milieu involvement ?Capnikhil, ?Clozaril trials-will discuss with pt, mother, Hermes's guardian. 10/01/22: Increase Latuda to 100 mg hs Application sent to [facility] 10/03/22: Amendment of community Arshad initiated. Clozaril on hold for this reason until completed. 10/04 continue current treatment plan 10/05 continue current treatment plan 10/07/22: Court date 10/14/22 to possibly amend [facility] and to begin Clozaril Continue current regime. 10/08/22: Tolerating recent increases of Latuda/Sertraline. Await court approval for potential Clozaril trial. 10/09/22: Continue current regime. 10/10/22: Olanzapine prn, Court to review [facility] on 10/14/22. 10/11: Continue current regimen and plans/awaiting court order on 10/14 10/12: Continue current regimen and plans 10/13: Continue current regimen and plans 10/16/22: Continue Clozapine 25 mg hs Discontinue Olanzapine scheduled Decrease Latuda to 80 mg 10/17/22: Increase Clozapine to 50 mg hs 10/18: continue current plan. 10/19: FU on tolerability of Clozapine by primary team. Continue same for now. 10/21/22: No changes today. Continue current regime and plan for now. 10/22/22: Continue current regime 10/24/22: Increase Clozapine to 100 mg HS 10/27/22: Increase Clozapine to 125 mg HS 10/28/22: Continue current regime and plan. Patient educated on: medication risk/benefits Informed Consent: understands and further education needed Reason for contiued inpatient stay Substantial Risk for: harm to self and rapid decompensation Time Spent With Patient Time: Total time managing care of this patient today 15 minutes.
[2022-10-28 18:00] VITALS: BP 124/78; PULSE 82; RESP 16; TEMP 36.6; O2SAT 99
[2022-10-28] MEDS: Docusate Sodium 100 MG CAPSULE PO (19:21)
[2022-10-28] MEDS: Sennosides 8.6 MG TABLET 17.2 MG PO (19:21)
[2022-10-28] MEDS: Lurasidone HCl 40 MG TABLET PO (19:22)
[2022-10-28] MEDS: cloZAPine ODT 25 MG TAB.RAPDIS 125 MG PO (19:37)
[2022-10-29 08:46] LABS: Neut%MD 48.5 %; Neutrophils Absolute Auto 2.8 x10*3/uL (2.0-8.3); WBCANC 5.7 X10*3/uL
[2022-10-29] MEDS: Benztropine Mesylate 1 MG TABLET PO ×3 (09:29→21:37)
[2022-10-29] MEDS: Docusate Sodium 100 MG CAPSULE PO ×2 (09:29→21:37)
[2022-10-29] MEDS: lamoTRIgine 100 MG TABLET PO (09:29)
[2022-10-29] MEDS: Topiramate 25 MG TABLET PO (09:29)
[2022-10-29] MEDS: Sertraline HCL 25 MG TABLET 75 MG PO (09:29)
[2022-10-29] MEDS: polyethylene glycoL 3350 17 GM POWD.PACK PO (09:30)
[2022-10-29 09:36] VITALS: BP 100/62; PULSE 74; RESP 16; TEMP 36.2; O2SAT 97
[2022-10-29] MEDS: Nicotine Polacrilex 2 MG GUM BUCCAL ×6 (11:20→22:08)
[2022-10-29 16:05] VITALS: BP 116/73; PULSE 121; TEMP 36.3
--- NOTE | 2022-10-29 17:18 | P.PNPSI_ITS ---
Subjective Subjective Date of Service: 10/29/22 Reason For Visit: Schizoaffective disorder Subjective Notes: Conditional Voluntary Healthcare Proxy: No Guardianship: No Medical Problems Affecting Mental Status: No Interim History: Pt more visable in milieu and more engaged at times. Denies med SE, discussed long-term low self-esteem and how this contributes to amotivation and depressive sx. Overall reports improvement without SE. Medication Compliance: Yes Side effects from medications: No Attending Groups: Intermittent Review of Systems Acute medical concerns: No Medical Review of Systems: unchanged Mental Status Exam Mental Status Exam Patient Appearance: Fatigued and Appropriate Patient Orientation: Person, Place, Time and Situation Level of Consciousness: Alert Patient Behavior: Talkative and Good Eye Contact Mood Description: Depressed Affect Description: Flat Patient Cognition Impaired: No Ability to Follow Directions: Good Speech Pattern: Spontaneous Speech Memory Description: Intact Hallucinations: Auditory Perceptual Disturbances: Depersonalization and Derealization Thought Process: Intact and Goal Oriented Thought Content: positive for Intact and positive for Goal Oriented Depressive Symptoms: Low Self Esteem Judgement: Good Diagnostics Vital Signs (24Hr): Vital Signs - 24 hr 10/28/22 18:00 10/29/22 09:36 Temperature 97.8 F 97.2 F Pulse Rate 82 74 Respiratory Rate 16 16 Blood Pressure 124/78 100/62 Pulse Oximetry 99 97 Oxygen Delivery Method Room Air Room Air BMI result Body Mass Index 28.3 Labs 10/15/22 08:28 09/27/22 10:22 Labs: Laboratory Results - last 48 hr 10/29/22 08:15 Absolute Neuts (auto) 2.8 Medications Medications Current Medications Acetaminophen (Acetaminophen 325 Mg Tablet) 650 mg PO Q6H PRN PRN Reason: Headache/Pain Mild Scale (1-3) Al Hydroxide/Mg Hydroxide (Magnesium Hydrox/Alum Hydrox 30 Ml Oral.Susp) 30 ml PO Q6H PRN PRN Reason: Heartburn/Nausea Benztropine Mesylate (Benztropine Mesylate 1 Mg Tablet) 1 mg PO TID [facility] Last Admin: 10/29/22 14:29 Dose: 1 mg Bisacodyl (Bisacodyl 5 Mg Tablet.Dr) 10 mg PO DAILY PRN PRN Reason: Constipation Last Admin: 10/28/22 14:59 Dose: 10 mg Clozapine (Clozapine Odt 25 Mg Tab.Rapdis) 125 mg PO 1900 [facility] Last Admin: 10/28/22 19:37 Dose: 125 mg Docusate Sodium (Docusate Sodium 100 Mg Capsule) 100 mg PO BID [facility] Last Admin: 10/29/22 09:29 Dose: 100 mg Hydroxyzine HCl (Hydroxyzine Hcl 25 Mg Tablet) 25 mg PO Q6H PRN PRN Reason: Anxiety Last Admin: 10/28/22 14:59 Dose: 25 mg Lamotrigine (Lamotrigine 100 Mg Tablet) 100 mg PO DAILY [facility] Last Admin: 10/29/22 09:29 Dose: 100 mg Lurasidone HCl (Lurasidone Hcl 40 Mg Tablet) 40 mg PO BEDTIME [facility] Last Admin: 10/28/22 19:22 Dose: 40 mg Magnesium Hydroxide (Milk Of Magnesia 30 Ml Oral.Susp) 30 ml PO DAILY PRN PRN Reason: Constipation Nicotine Polacrilex (Nicotine Polacrilex 2 Mg Gum) 2 mg BUCCAL Q2H PRN PRN Reason: Smoking Cessation Last Admin: 10/29/22 15:27 Dose: 2 mg Olanzapine (Olanzapine 5 Mg Tablet) 5 mg PO Q4H PRN PRN Reason: psychotic agitation Last Admin: 10/28/22 14:59 Dose: 5 mg Pharmacy Consult (Consult Rx Perform Med Rec) 1 each MISCELLANE ONCE PRN PRN Reason: Consult order Polyethylene Glycol (Polyethylene Glycol 3350 17 Gm Powd.Pack) 17 gm PO DAILY [facility] Last Admin: 10/29/22 09:30 Dose: 17 gm Senna (Sennosides 8.6 Mg Tablet) 17.2 mg PO BEDTIME [facility] Last Admin: 10/28/22 19:21 Dose: 17.2 mg Sertraline HCl (Sertraline Hcl 25 Mg Tablet) 75 mg PO DAILY [facility] Last Admin: 10/29/22 09:29 Dose: 75 mg Sodium Biphosphate/Sodium Phosphate (Sodium Phosphate,[place]-Dibasic 133 Ml Enema) 133 ml [place] ONCE PRN PRN Reason: Constipation Last Admin: 10/05/22 10:54 Dose: 133 ml Topiramate (Topiramate 25 Mg Tablet) 25 mg PO DAILY [facility] Last Admin: 10/29/22 09:29 Dose: 25 mg Allergies Allergies Allergy/AdvReac Type Severity Reaction Status Date / Time aripiprazole [Abilify] Allergy Unknown tongue Verified 08/18/22 05:59 swells and gain weight risperidone [From Risperdal] AdvReac Unknown gain Verified 08/18/22 05:59 weight, and slurred speech cariprazine [From Vraylar] AdvReac Verified 08/18/22 05:59 haloperidol [From Haldol] AdvReac DYSTONIA Verified 08/18/22 05:59 paliperidone AdvReac dystonia Verified 08/18/22 05:59 trazodone AdvReac DYSTONIA Verified 08/18/22 05:59 Assessment & Plan Assessment & Plan (1) Schizoaffective disorder, bipolar type: Status: Acute Code(s): F25.0 - Schizoaffective disorder, bipolar type Assessment and Plan: continues on clozapine, concerned to not gain weight so actively eating less? of hx of eating do 10/26/22 wants to inc clozapine worried about having to stay 2 weeks Plan 22 yo female, history of schizoaffective disorder, bipolar type, PTSD, polysubstance use with current reports of increase in depressive sx with SI, SIBS and difficulty in her new [facility] in [place]. Plan: Collateral contact Increase Sertraline to 75 mg daily Encourage milieu involvement ?Caplyta, ?Clozaril trials-will discuss with pt, mother, Hermes's guardian. 10/01/22: Increase Latuda to 100 mg hs Application sent to [facility] 10/03/22: Amendment of community [facility]shad initiated. Clozaril on hold for this reason until completed. 10/04 continue current treatment plan 10/05 continue current treatment plan 10/07/22: Court date 10/14/22 to possibly amend [facility] and to begin Clozaril Continue current regime. 10/08/22: Tolerating recent increases of Latuda/Sertraline. Await court approval for potential Clozaril trial. 10/09/22: Continue current regime. 10/10/22: Olanzapine prn, Court to review Arshad on 10/14/22. 10/11: Continue current regimen and plans/awaiting court order on 10/14 10/12: Continue current regimen and plans 10/13: Continue current regimen and plans 10/16/22: Continue Clozapine 25 mg hs Discontinue Olanzapine scheduled Decrease Latuda to 80 mg 10/17/22: Increase Clozapine to 50 mg hs 10/18: continue current plan. 10/19: FU on tolerability of Clozapine by primary team. Continue same for now. 10/21/22: No changes today. Continue current regime and plan for now. 10/22/22: Continue current regime 10/24/22: Increase Clozapine to 100 mg HS 10/27/22: Increase Clozapine to 125 mg HS 10/28/22: Continue current regime and plan. 10/29/22: Continue current regime and plan. Informed Consent: understands Reason for contiued inpatient stay Substantial Risk for: rapid decompensation Time Spent With Patient Time: Total time managing care of this patient today ____ minutes.
[2022-10-29] MEDS: cloZAPine ODT 25 MG TAB.RAPDIS 125 MG PO (21:35)
[2022-10-29] MEDS: Lurasidone HCl 40 MG TABLET PO (21:37)
[2022-10-29] MEDS: Sennosides 8.6 MG TABLET 17.2 MG PO (21:37)
[2022-10-30] MEDS: Sertraline HCL 25 MG TABLET 75 MG PO (08:12)
[2022-10-30] MEDS: Topiramate 25 MG TABLET PO (08:12)
[2022-10-30] MEDS: Docusate Sodium 100 MG CAPSULE PO ×2 (08:12→20:42)
[2022-10-30] MEDS: Benztropine Mesylate 1 MG TABLET PO ×3 (08:13→20:42)
[2022-10-30] MEDS: lamoTRIgine 100 MG TABLET PO (08:13)
[2022-10-30] MEDS: polyethylene glycoL 3350 17 GM POWD.PACK PO (08:13)
[2022-10-30] MEDS: Nicotine Polacrilex 2 MG GUM BUCCAL ×4 (12:56→21:19)
--- NOTE | 2022-10-30 16:14 | P.PNPSI_ITS ---
Subjective Subjective Date of Service: 10/30/22 Reason For Visit: Schizoaffective disorder Subjective Notes: Conditional Voluntary Interim History: Visable, attending some groups, visiting with mom, tolerating Clozapine which is scheduled for increase on 10/31. Team meeting on 11/03, discharge tentative for 11/05 to return to her program. Mom met with tw and reports she sees significant improvement in pt-showed a picture both took together on 10/29, both looking well. Mom reports she has just received a diagnosis of schizophrenia and has been talking with pt about this and her new medications. She has shared with pt that the diagnosis is genetic and she reports pt expressed significant relief, stating that this means she did not cause this herself. Medication Compliance: Yes Side effects from medications: No Attending Groups: Yes Review of Systems Acute medical concerns: No Medical Review of Systems: unchanged Mental Status Exam Mental Status Exam Patient Appearance: Appropriate Patient Orientation: Person, Place, Time and Situation Level of Consciousness: Alert Patient Behavior: Talkative and Good Eye Contact Mood Description: Constricted Affect Description: Constricted Patient Cognition Impaired: No Ability to Follow Directions: Good Speech Pattern: Spontaneous Speech Memory Description: Intact Hallucinations: Auditory Perceptual Disturbances: Depersonalization and Derealization Thought Process: Intact and Goal Oriented Thought Content: positive for Intact and positive for Goal Oriented Depressive Symptoms: Low Self Esteem Judgement: Good Diagnostics Vital Signs (24Hr): BMI result Body Mass Index 28.3 Labs 10/15/22 08:28 09/27/22 10:22 Labs: Laboratory Results - last 48 hr 10/29/22 08:15 Absolute Neuts (auto) 2.8 Medications Medications Current Medications Acetaminophen (Acetaminophen 325 Mg Tablet) 650 mg PO Q6H PRN PRN Reason: Headache/Pain Mild Scale (1-3) Al Hydroxide/Mg Hydroxide (Magnesium Hydrox/Alum Hydrox 30 Ml Oral.Susp) 30 ml PO Q6H PRN PRN Reason: Heartburn/Nausea Benztropine Mesylate (Benztropine Mesylate 1 Mg Tablet) 1 mg PO TID [facility] Last Admin: 10/30/22 14:07 Dose: 1 mg Bisacodyl (Bisacodyl 5 Mg Tablet.Dr) 10 mg PO DAILY PRN PRN Reason: Constipation Last Admin: 10/28/22 14:59 Dose: 10 mg Clozapine (Clozapine Odt 25 Mg Tab.Rapdis) 125 mg PO 1900 [facility] Last Admin: 10/29/22 21:35 Dose: 125 mg Clozapine 100 mg/ Clozapine 50 (mg) 150 mg PO BEDTIME [facility] Stop: 11/04/22 09:00 Docusate Sodium (Docusate Sodium 100 Mg Capsule) 100 mg PO BID [facility] Last Admin: 10/30/22 08:12 Dose: 100 mg Hydroxyzine HCl (Hydroxyzine Hcl 25 Mg Tablet) 25 mg PO Q6H PRN PRN Reason: Anxiety Last Admin: 10/28/22 14:59 Dose: 25 mg Lamotrigine (Lamotrigine 100 Mg Tablet) 100 mg PO DAILY [facility] Last Admin: 10/30/22 08:13 Dose: 100 mg Lurasidone HCl (Lurasidone Hcl 40 Mg Tablet) 40 mg PO BEDTIME [facility] Last Admin: 10/29/22 21:37 Dose: 40 mg Magnesium Hydroxide (Milk Of Magnesia 30 Ml Oral.Susp) 30 ml PO DAILY PRN PRN Reason: Constipation Nicotine Polacrilex (Nicotine Polacrilex 2 Mg Gum) 2 mg BUCCAL Q2H PRN PRN Reason: Smoking Cessation Last Admin: 10/30/22 15:15 Dose: 2 mg Olanzapine (Olanzapine 5 Mg Tablet) 5 mg PO Q4H PRN PRN Reason: psychotic agitation Last Admin: 10/28/22 14:59 Dose: 5 mg Pharmacy Consult (Consult Rx Perform Med Rec) 1 each MISCELLANE ONCE PRN PRN Reason: Consult order Polyethylene Glycol (Polyethylene Glycol 3350 17 Gm Powd.Pack) 17 gm PO DAILY [facility] Last Admin: 10/30/22 08:13 Dose: 17 gm Senna (Sennosides 8.6 Mg Tablet) 17.2 mg PO BEDTIME [facility] Last Admin: 10/29/22 21:37 Dose: 17.2 mg Sertraline HCl (Sertraline Hcl 25 Mg Tablet) 75 mg PO DAILY [facility] Last Admin: 10/30/22 08:12 Dose: 75 mg Sodium Biphosphate/Sodium Phosphate (Sodium Phosphate,[place]-Dibasic 133 Ml Enema) 133 ml [place] ONCE PRN PRN Reason: Constipation Last Admin: 10/05/22 10:54 Dose: 133 ml Topiramate (Topiramate 25 Mg Tablet) 25 mg PO DAILY [facility] Last Admin: 10/30/22 08:12 Dose: 25 mg Allergies Allergies Allergy/AdvReac Type Severity Reaction Status Date / Time aripiprazole [Abilify] Allergy Unknown tongue Verified 08/18/22 05:59 swells and gain weight risperidone [From Risperdal] AdvReac Unknown gain Verified 08/18/22 05:59 weight, and slurred speech cariprazine [From Vraylar] AdvReac Verified 08/18/22 05:59 haloperidol [From Haldol] AdvReac DYSTONIA Verified 08/18/22 05:59 paliperidone AdvReac dystonia Verified 08/18/22 05:59 trazodone AdvReac DYSTONIA Verified 08/18/22 05:59 Assessment & Plan Assessment & Plan (1) Schizoaffective disorder, bipolar type: Status: Acute Code(s): F25.0 - Schizoaffective disorder, bipolar type Assessment and Plan: continues on clozapine, concerned to not gain weight so actively eating less? of hx of eating do 10/26/22 wants to inc clozapine worried about having to stay 2 weeks Plan 22 yo female, history of schizoaffective disorder, bipolar type, PTSD, polysubstance use with current reports of increase in depressive sx with SI, SIBS and difficulty in her new jail in [place]. Plan: Collateral contact Increase Sertraline to 75 mg daily Encourage milieu involvement ?Luc, ?Clozaril trials-will discuss with pt, mother, [facility] guardian. 10/01/22: Increase Latuda to 100 mg hs Application sent to [facility] 10/03/22: Amendment of community [facility] initiated. Clozaril on hold for this reason until completed. 10/04 continue current treatment plan 10/05 continue current treatment plan 10/07/22: Court date 10/14/22 to possibly amend [facility] and to begin Clozaril Continue current regime. 10/08/22: Tolerating recent increases of Latuda/Sertraline. Await court approval for potential Clozaril trial. 10/09/22: Continue current regime. 10/10/22: Olanzapine prn, Court to review [facility]shad on 10/14/22. 10/11: Continue current regimen and plans/awaiting court order on 10/14 10/12: Continue current regimen and plans 10/13: Continue current regimen and plans 10/16/22: Continue Clozapine 25 mg hs Discontinue Olanzapine scheduled Decrease Latuda to 80 mg 10/17/22: Increase Clozapine to 50 mg hs 10/18: continue current plan. 10/19: FU on tolerability of Clozapine by primary team. Continue same for now. 10/21/22: No changes today. Continue current regime and plan for now. 10/22/22: Continue current regime 10/24/22: Increase Clozapine to 100 mg HS 10/27/22: Increase Clozapine to 125 mg HS 10/28/22: Continue current regime and plan. 10/29/22: Continue current regime and plan. 10/30/22: Increase Clozapine to 150 mg HS on 10/31. Informed Consent: understands Reason for contiued inpatient stay Substantial Risk for: rapid decompensation Time Spent With Patient Time: Total time managing care of this patient today ____ minutes.
[2022-10-30 16:35] VITALS: BP 119/65; PULSE 124; TEMP 36.1
[2022-10-30] MEDS: Lurasidone HCl 20 MG TABLET PO (20:41)
[2022-10-30] MEDS: Sennosides 8.6 MG TABLET 17.2 MG PO (20:42)
[2022-10-30] MEDS: cloZAPine ODT 25 MG TAB.RAPDIS 125 MG PO (20:44)
[2022-10-31 06:00] VITALS: BP 108/69; PULSE 78; RESP 14; TEMP 36.2; O2SAT 98
[2022-10-31] MEDS: Docusate Sodium 100 MG CAPSULE PO ×2 (09:02→20:38)
[2022-10-31] MEDS: polyethylene glycoL 3350 17 GM POWD.PACK PO (09:02)
[2022-10-31] MEDS: Sertraline HCL 25 MG TABLET 75 MG PO (09:02)
[2022-10-31] MEDS: lamoTRIgine 100 MG TABLET PO (09:02)
[2022-10-31] MEDS: Topiramate 25 MG TABLET PO (09:03)
[2022-10-31] MEDS: Benztropine Mesylate 1 MG TABLET PO ×3 (09:03→20:38)
[2022-10-31] MEDS: Nicotine Polacrilex 2 MG GUM BUCCAL ×6 (09:54→21:26)
[2022-10-31] MEDS: OLANZapine 5 MG TABLET PO (09:54)
[2022-10-31] MEDS: hydrOXYzine HCL 25 MG TABLET PO (09:54)
[2022-10-31] MEDS: Acetaminophen 325 MG TABLET 650 MG PO (12:25)
--- NOTE | 2022-10-31 15:07 | P.PNPSI_ITS ---
Subjective Subjective Date of Service: 10/31/22 Reason For Visit: Schizoaffective disorder Interim History: Met with patient; discussed in teams Patient laments that she still has auditory hallucinations and probably will for life. However she is trying to ignore them. She remains internally preoccupied talking to herself in the hallway. Patient denies any other complaints and has no requests. Mental Status Exam Mental Status Exam Patient Appearance: Appropriate Patient Orientation: Person, Place, Time and Situation Level of Consciousness: Alert Patient Behavior: Talkative and Good Eye Contact Mood Description: Constricted Affect Description: Constricted Patient Cognition Impaired: No Ability to Follow Directions: Good Speech Pattern: Spontaneous Speech Memory Description: Intact Hallucinations: Auditory Perceptual Disturbances: Depersonalization and Derealization Thought Process: Goal Oriented Thought Content: positive for Intact (regarding no SI/HI), positive for Goal Or iented and positive for Evasive (unsure if delusional content) Depressive Symptoms: Low Self Esteem Judgement: Fair Judgement and Insight: fair Diagnostics Vital Signs (24Hr): Vital Signs - 24 hr 10/30/22 16:35 10/31/22 06:00 Temperature 97.0 F 97.1 F Pulse Rate 124 H 78 Respiratory Rate 14 Blood Pressure 119/65 108/69 Pulse Oximetry 98 Oxygen Delivery Method Room Air BMI result Body Mass Index 28.3 Labs 10/15/22 08:28 09/27/22 10:22 Medications Medications Current Medications Acetaminophen (Acetaminophen 325 Mg Tablet) 650 mg PO Q6H PRN PRN Reason: Headache/Pain Mild Scale (1-3) Last Admin: 10/31/22 12:25 Dose: 650 mg Al Hydroxide/Mg Hydroxide (Magnesium Hydrox/Alum Hydrox 30 Ml Oral.Susp) 30 ml PO Q6H PRN PRN Reason: Heartburn/Nausea Benztropine Mesylate (Benztropine Mesylate 1 Mg Tablet) 1 mg PO TID [facility] Last Admin: 10/31/22 14:13 Dose: 1 mg Bisacodyl (Bisacodyl 5 Mg Tablet.Dr) 10 mg PO DAILY PRN PRN Reason: Constipation Last Admin: 10/28/22 14:59 Dose: 10 mg Clozapine 100 mg/ Clozapine 50 (mg) 150 mg PO BEDTIME [facility] Stop: 11/04/22 09:00 Docusate Sodium (Docusate Sodium 100 Mg Capsule) 100 mg PO BID [facility] Last Admin: 10/31/22 09:02 Dose: 100 mg Hydroxyzine HCl (Hydroxyzine Hcl 25 Mg Tablet) 25 mg PO Q6H PRN PRN Reason: Anxiety Last Admin: 10/31/22 09:54 Dose: 25 mg Lamotrigine (Lamotrigine 100 Mg Tablet) 100 mg PO DAILY [facility] Last Admin: 10/31/22 09:02 Dose: 100 mg Lurasidone HCl (Lurasidone Hcl 20 Mg Tablet) 20 mg PO BEDTIME [facility] Last Admin: 10/30/22 20:41 Dose: 20 mg Magnesium Hydroxide (Milk Of Magnesia 30 Ml Oral.Susp) 30 ml PO DAILY PRN PRN Reason: Constipation Nicotine Polacrilex (Nicotine Polacrilex 2 Mg Gum) 2 mg BUCCAL Q2H PRN PRN Reason: Smoking Cessation Last Admin: 10/31/22 14:47 Dose: 2 mg Olanzapine (Olanzapine 5 Mg Tablet) 5 mg PO Q4H PRN PRN Reason: psychotic agitation Last Admin: 10/31/22 09:54 Dose: 5 mg Pharmacy Consult (Consult Rx Perform Med Rec) 1 each MISCELLANE ONCE PRN PRN Reason: Consult order Polyethylene Glycol (Polyethylene Glycol 3350 17 Gm Powd.Pack) 17 gm PO DAILY [facility] Last Admin: 10/31/22 09:02 Dose: 17 gm Senna (Sennosides 8.6 Mg Tablet) 17.2 mg PO BEDTIME [facility] Last Admin: 10/30/22 20:42 Dose: 17.2 mg Sertraline HCl (Sertraline Hcl 25 Mg Tablet) 75 mg PO DAILY [facility] Last Admin: 10/31/22 09:02 Dose: 75 mg Sodium Biphosphate/Sodium Phosphate (Sodium Phosphate,[place]-Dibasic 133 Ml Enema) 133 ml [place] ONCE PRN PRN Reason: Constipation Last Admin: 10/05/22 10:54 Dose: 133 ml Topiramate (Topiramate 25 Mg Tablet) 25 mg PO DAILY [facility] Last Admin: 10/31/22 09:03 Dose: 25 mg Allergies Allergies Allergy/AdvReac Type Severity Reaction Status Date / Time aripiprazole [Abilify] Allergy Unknown tongue Verified 08/18/22 05:59 swells and gain weight risperidone [From Risperdal] AdvReac Unknown gain Verified 08/18/22 05:59 weight, and slurred speech cariprazine [From Vraylar] AdvReac Verified 08/18/22 05:59 haloperidol [From Haldol] AdvReac DYSTONIA Verified 08/18/22 05:59 paliperidone AdvReac dystonia Verified 08/18/22 05:59 trazodone AdvReac DYSTONIA Verified 08/18/22 05:59 Assessment & Plan Assessment & Plan (1) Schizoaffective disorder, bipolar type: Status: Acute Code(s): F25.0 - Schizoaffective disorder, bipolar type Assessment and Plan: continues on clozapine, concerned to not gain weight so actively eating less? of hx of eating do 10/26/22 wants to inc clozapine worried about having to stay 2 weeks Plan 22 yo female, history of schizoaffective disorder, bipolar type, PTSD, polysubstance use with current reports of increase in depressive sx with SI, SIBS and difficulty in her new halfway in [place]. Plan: Collateral contact Increase Sertraline to 75 mg daily Encourage milieu involvement ?Caplyta, ?Clozaril trials-will discuss with pt, mother, Hermes's guardian. 10/01/22: Increase Latuda to 100 mg hs Application sent to [facility] 10/03/22: Amendment of community [facility] initiated. Clozaril on hold for this reason until completed. 10/04 continue current treatment plan 10/05 continue current treatment plan 10/07/22: Court date 10/14/22 to possibly amend [facility] and to begin Clozaril Continue current regime. 10/08/22: Tolerating recent increases of Latuda/Sertraline. Await court approval for potential Clozaril trial. 10/09/22: Continue current regime. 10/10/22: Olanzapine prn, Court to review [facility] on 10/14/22. 10/11: Continue current regimen and plans/awaiting court order on 10/14 10/12: Continue current regimen and plans 10/13: Continue current regimen and plans 10/16/22: Continue Clozapine 25 mg hs Discontinue Olanzapine scheduled Decrease Latuda to 80 mg 10/17/22: Increase Clozapine to 50 mg hs 10/18: continue current plan. 10/19: FU on tolerability of Clozapine by primary team. Continue same for now. 10/21/22: No changes today. Continue current regime and plan for now. 10/22/22: Continue current regime 10/24/22: Increase Clozapine to 100 mg HS 10/27/22: Increase Clozapine to 125 mg HS 10/28/22: Continue current regime and plan. 10/29/22: Continue current regime and plan. 10/30/22: Increase Clozapine to 150 mg HS on 10/31. 10/31/22; continue current treatment regimen Patient educated on: diagnosis Informed Consent: understands Reason for contiued inpatient stay Substantial Risk for: stable for discharge and med/psych decompensation Time Spent With Patient Time: Total time managing care of this patient today ____ minutes.
[2022-10-31] MEDS: Sennosides 8.6 MG TABLET 17.2 MG PO (20:38)
[2022-10-31] MEDS: cloZAPine 100 MG, cloZAPine 50 MG 150 MG PO (20:38)
[2022-10-31] MEDS: Lurasidone HCl 20 MG TABLET PO (20:38)
[2022-10-31 20:41] VITALS: BP 110/71; PULSE 124; RESP 14; TEMP 36.7
[2022-11-01] MEDS: polyethylene glycoL 3350 17 GM POWD.PACK PO (08:48)
[2022-11-01] MEDS: Benztropine Mesylate 1 MG TABLET PO ×3 (08:48→20:31)
[2022-11-01] MEDS: Docusate Sodium 100 MG CAPSULE PO ×2 (08:48→20:31)
[2022-11-01] MEDS: lamoTRIgine 100 MG TABLET PO (08:48)
[2022-11-01] MEDS: Topiramate 25 MG TABLET PO (08:48)
[2022-11-01] MEDS: Sertraline HCL 25 MG TABLET 75 MG PO (08:48)
[2022-11-01 08:53] VITALS: BP 97/62; PULSE 80; RESP 16; TEMP 36.6; O2SAT 95
--- NOTE | 2022-11-01 10:20 | P.PNPSI_ITS ---
Subjective Subjective Date of Service: 11/01/22 Reason For Visit: Schizoaffective disorder Interim History: Met with patient; discussed with nursing Patient reports that she is doing okay. Discussed her auditory hallucinations and patient said they remain but since starting clozapine she is feeling a little more calm about and more accepting that she has them and will be able to deal with them. They still say negative upsetting things but she says I am less freaked out about. Patient is amenable to continued clozapine titration. She says that for several months she has had a sensation of having cracks and the back of her neck which she tries to feel for but none are there; she is aware of this sensation maybe twice a day and sometimes it feels prickly other times painful. She will continue to monitor Mental Status Exam Mental Status Exam Narrative: Pt is alert and oriented; behavior is cooperative, friendly and calm; patient is not in distress; dressed in casual attire with unkempt hair but adequate hygiene; mood is described as okay and affect congruent; eye contact appropriate; Speech is normal rate, volume and prosody and not pressured; no psychomotor agitation/retardation present; thought process is organized and goal directed; Thought content is dealing with auditory hallucinations; otherwise pertinent to relevant topics; no delusional content expressed; denies any SI/HI. Positive for AH and Patient is internally preoccupied Patients insight and judgment impaired but improving Diagnostics Vital Signs (24Hr): Vital Signs - 24 hr 10/31/22 20:41 11/01/22 08:53 Temperature 98.1 F 97.8 F Pulse Rate 124 H 80 Respiratory Rate 14 16 Blood Pressure 110/71 97/62 Pulse Oximetry 95 Oxygen Delivery Method Room Air BMI result Body Mass Index 28.3 Labs 10/15/22 08:28 09/27/22 10:22 Medications Medications Current Medications Acetaminophen (Acetaminophen 325 Mg Tablet) 650 mg PO Q6H PRN PRN Reason: Headache/Pain Mild Scale (1-3) Last Admin: 10/31/22 12:25 Dose: 650 mg Al Hydroxide/Mg Hydroxide (Magnesium Hydrox/Alum Hydrox 30 Ml Oral.Susp) 30 ml PO Q6H PRN PRN Reason: Heartburn/Nausea Benztropine Mesylate (Benztropine Mesylate 1 Mg Tablet) 1 mg PO TID [facility] Last Admin: 11/01/22 08:48 Dose: 1 mg Bisacodyl (Bisacodyl 5 Mg Tablet.Dr) 10 mg PO DAILY PRN PRN Reason: Constipation Last Admin: 10/28/22 14:59 Dose: 10 mg Clozapine 100 mg/ Clozapine 50 (mg) 150 mg PO BEDTIME [facility] Stop: 11/04/22 09:00 Last Admin: 10/31/22 20:38 Dose: 150 mg Docusate Sodium (Docusate Sodium 100 Mg Capsule) 100 mg PO BID [facility] Last Admin: 11/01/22 08:48 Dose: 100 mg Hydroxyzine HCl (Hydroxyzine Hcl 25 Mg Tablet) 25 mg PO Q6H PRN PRN Reason: Anxiety Last Admin: 10/31/22 09:54 Dose: 25 mg Lamotrigine (Lamotrigine 100 Mg Tablet) 100 mg PO DAILY [facility] Last Admin: 11/01/22 08:48 Dose: 100 mg Lurasidone HCl (Lurasidone Hcl 20 Mg Tablet) 20 mg PO BEDTIME [facility] Last Admin: 10/31/22 20:38 Dose: 20 mg Magnesium Hydroxide (Milk Of Magnesia 30 Ml Oral.Susp) 30 ml PO DAILY PRN PRN Reason: Constipation Nicotine Polacrilex (Nicotine Polacrilex 2 Mg Gum) 2 mg BUCCAL Q2H PRN PRN Reason: Smoking Cessation Last Admin: 10/31/22 21:26 Dose: 2 mg Olanzapine (Olanzapine 5 Mg Tablet) 5 mg PO Q4H PRN PRN Reason: psychotic agitation Last Admin: 10/31/22 09:54 Dose: 5 mg Pharmacy Consult (Consult Rx Perform Med Rec) 1 each MISCELLANE ONCE PRN PRN Reason: Consult order Polyethylene Glycol (Polyethylene Glycol 3350 17 Gm Powd.Pack) 17 gm PO DAILY [facility] Last Admin: 11/01/22 08:48 Dose: 17 gm Senna (Sennosides 8.6 Mg Tablet) 17.2 mg PO BEDTIME [facility] Last Admin: 10/31/22 20:38 Dose: 17.2 mg Sertraline HCl (Sertraline Hcl 25 Mg Tablet) 75 mg PO DAILY [facility] Last Admin: 11/01/22 08:48 Dose: 75 mg Sodium Biphosphate/Sodium Phosphate (Sodium Phosphate,[place]-Dibasic 133 Ml Enema) 133 ml [place] ONCE PRN PRN Reason: Constipation Last Admin: 10/05/22 10:54 Dose: 133 ml Topiramate (Topiramate 25 Mg Tablet) 25 mg PO DAILY [facility] Last Admin: 11/01/22 08:48 Dose: 25 mg Allergies Allergies Allergy/AdvReac Type Severity Reaction Status Date / Time aripiprazole [Abilify] Allergy Unknown tongue Verified 08/18/22 05:59 swells and gain weight risperidone [From Risperdal] AdvReac Unknown gain Verified 08/18/22 05:59 weight, and slurred speech cariprazine [From Vraylar] AdvReac Verified 08/18/22 05:59 haloperidol [From Haldol] AdvReac DYSTONIA Verified 08/18/22 05:59 paliperidone AdvReac dystonia Verified 08/18/22 05:59 trazodone AdvReac DYSTONIA Verified 08/18/22 05:59 Assessment & Plan Assessment & Plan (1) Schizoaffective disorder, bipolar type: Status: Acute Code(s): F25.0 - Schizoaffective disorder, bipolar type Assessment and Plan: continues on clozapine, concerned to not gain weight so actively eating less? of hx of eating do 10/26/22 wants to inc clozapine worried about having to stay 2 weeks Plan 22 yo female, history of schizoaffective disorder, bipolar type, PTSD, polysubstance use with current reports of increase in depressive sx with SI, SIBS and difficulty in her new prison in [place]. Plan: Collateral contact Increase Sertraline to 75 mg daily Encourage milieu involvement ?Caplyta, ?Clozaril trials-will discuss with pt, mother, Hermes's guardian. 10/01/22: Increase Latuda to 100 mg hs Application sent to [facility] 10/03/22: Amendment of community [facility] initiated. Clozaril on hold for this reason until completed. 10/04 continue current treatment plan 10/05 continue current treatment plan 10/07/22: Court date 10/14/22 to possibly amend [facility] and to begin Clozaril Continue current regime. 10/08/22: Tolerating recent increases of Latuda/Sertraline. Await court approval for potential Clozaril trial. 10/09/22: Continue current regime. 10/10/22: Olanzapine prn, Court to review [facility]shad on 10/14/22. 10/11: Continue current regimen and plans/awaiting court order on 10/14 10/12: Continue current regimen and plans 10/13: Continue current regimen and plans 10/16/22: Continue Clozapine 25 mg hs Discontinue Olanzapine scheduled Decrease Latuda to 80 mg 10/17/22: Increase Clozapine to 50 mg hs 10/18: continue current plan. 10/19: FU on tolerability of Clozapine by primary team. Continue same for now. 10/21/22: No changes today. Continue current regime and plan for now. 10/22/22: Continue current regime 10/24/22: Increase Clozapine to 100 mg HS 10/27/22: Increase Clozapine to 125 mg HS 10/28/22: Continue current regime and plan. 10/29/22: Continue current regime and plan. 10/30/22: Increase Clozapine to 150 mg HS on 10/31. 10/31/22; continue current treatment regimen 11/01/2022 continue current treatment regimen; will review and see if clozapine titration is automatic or if med needs to be increased Patient educated on: diagnosis, medication risk/benefits and therapeutic strategies Informed Consent: understands Reason for contiued inpatient stay Substantial Risk for: med/psych decompensation Time Spent With Patient Time: Total time managing care of this patient today ____ minutes.
[2022-11-01] MEDS: Nicotine Polacrilex 2 MG GUM BUCCAL ×5 (12:31→20:53)
[2022-11-01] MEDS: hydrOXYzine HCL 25 MG TABLET PO (13:05)
[2022-11-01] MEDS: OLANZapine 5 MG TABLET PO (13:05)
[2022-11-01] MEDS: Sennosides 8.6 MG TABLET 17.2 MG PO (20:30)
[2022-11-01] MEDS: cloZAPine 100 MG, cloZAPine 50 MG 150 MG PO (20:30)
[2022-11-01] MEDS: Lurasidone HCl 20 MG TABLET PO (20:31)
[2022-11-01] MEDS: Acetaminophen 325 MG TABLET 650 MG PO (20:53)
[2022-11-01 21:13] VITALS: BP 126/62; PULSE 68; RESP 16; TEMP 36.6; O2SAT 99
[2022-11-02] MEDS: Benztropine Mesylate 1 MG TABLET PO ×3 (08:16→19:50)
[2022-11-02] MEDS: lamoTRIgine 100 MG TABLET PO (08:16)
[2022-11-02] MEDS: Docusate Sodium 100 MG CAPSULE PO ×2 (08:16→19:50)
[2022-11-02] MEDS: Sertraline HCL 25 MG TABLET 75 MG PO (08:17)
[2022-11-02] MEDS: polyethylene glycoL 3350 17 GM POWD.PACK PO (08:18)
[2022-11-02] MEDS: Topiramate 25 MG TABLET PO (08:49)
[2022-11-02] MEDS: hydrOXYzine HCL 25 MG TABLET PO ×2 (13:51→19:56)
[2022-11-02] MEDS: OLANZapine 5 MG TABLET PO (13:51)
[2022-11-02] MEDS: Nicotine Polacrilex 2 MG GUM BUCCAL ×3 (14:13→19:13)
[2022-11-02 17:14] VITALS: BP 107/71; PULSE 110; RESP 16; TEMP 36.3; O2SAT 96
--- NOTE | 2022-11-02 17:36 | P.PNPSI_ITS ---
Subjective Subjective Date of Service: 11/02/22 Reason For Visit: Schizoaffective disorder Interim History: Met with patient; discussed with nursing AH remains. Patient says she though less troubled by it but would like clozapine to be titrated further and agrees to increase to 175 mg. Otherwise patient denies complaints and has no request. She remains in internally preoccupied however cooperative, pleasant and appropriate with peers and staff. Mental Status Exam Mental Status Exam Narrative: Pt is alert and oriented; behavior is cooperative, friendly and calm; patient is not in distress; dressed in casual attire with unkempt hair but adequate hygiene; mood is described as okay and affect congruent; eye contact appropriate; Speech is normal rate, volume and prosody and not pressured; no psychomotor agitation/retardation present; thought process is organized and goal directed; Thought content is dealing with auditory hallucinations; otherwise pertinent to relevant topics; no delusional content expressed; denies any SI/HI. Positive for and Patient is internally preoccupied Patients insight and judgment impaired but improving Diagnostics Vital Signs (24Hr): Vital Signs - 24 hr 11/01/22 21:13 11/02/22 17:14 Temperature 97.8 F 97.3 F Pulse Rate 68 110 H Respiratory Rate 16 16 Blood Pressure 126/62 107/71 Pulse Oximetry 99 96 Oxygen Delivery Method Room Air Room Air BMI result Body Mass Index 28.3 Labs 10/15/22 08:28 09/27/22 10:22 Medications Medications Current Medications Acetaminophen (Acetaminophen 325 Mg Tablet) 650 mg PO Q6H PRN PRN Reason: Headache/Pain Mild Scale (1-3) Last Admin: 11/01/22 20:53 Dose: 650 mg Al Hydroxide/Mg Hydroxide (Magnesium Hydrox/Alum Hydrox 30 Ml Oral.Susp) 30 ml PO Q6H PRN PRN Reason: Heartburn/Nausea Benztropine Mesylate (Benztropine Mesylate 1 Mg Tablet) 1 mg PO TID DUSTIN Last Admin: 11/02/22 14:12 Dose: 1 mg Bisacodyl (Bisacodyl 5 Mg Tablet.Dr) 10 mg PO DAILY PRN PRN Reason: Constipation Last Admin: 10/28/22 14:59 Dose: 10 mg Clozapine 100 mg/ Clozapine 50 (mg) 150 mg PO BEDTIME DUSTIN Stop: 11/04/22 09:00 Last Admin: 11/01/22 20:30 Dose: 150 mg Docusate Sodium (Docusate Sodium 100 Mg Capsule) 100 mg PO BID [facility] Last Admin: 11/02/22 08:16 Dose: 100 mg Hydroxyzine HCl (Hydroxyzine Hcl 25 Mg Tablet) 25 mg PO Q6H PRN PRN Reason: Anxiety Last Admin: 11/02/22 13:51 Dose: 25 mg Lamotrigine (Lamotrigine 100 Mg Tablet) 100 mg PO DAILY [facility] Last Admin: 11/02/22 08:16 Dose: 100 mg Lurasidone HCl (Lurasidone Hcl 20 Mg Tablet) 20 mg PO BEDTIME [facility] Last Admin: 11/01/22 20:31 Dose: 20 mg Magnesium Hydroxide (Milk Of Magnesia 30 Ml Oral.Susp) 30 ml PO DAILY PRN PRN Reason: Constipation Nicotine Polacrilex (Nicotine Polacrilex 2 Mg Gum) 2 mg BUCCAL Q2H PRN PRN Reason: Smoking Cessation Last Admin: 11/02/22 16:51 Dose: 2 mg Olanzapine (Olanzapine 5 Mg Tablet) 5 mg PO Q4H PRN PRN Reason: psychotic agitation Last Admin: 11/02/22 13:51 Dose: 5 mg Pharmacy Consult (Consult Rx Perform Med Rec) 1 each MISCELLANE ONCE PRN PRN Reason: Consult order Polyethylene Glycol (Polyethylene Glycol 3350 17 Gm Powd.Pack) 17 gm PO DAILY [facility] Last Admin: 11/02/22 08:18 Dose: 17 gm Senna (Sennosides 8.6 Mg Tablet) 17.2 mg PO BEDTIME [facility] Last Admin: 11/01/22 20:30 Dose: 17.2 mg Sertraline HCl (Sertraline Hcl 25 Mg Tablet) 75 mg PO DAILY [facility] Last Admin: 11/02/22 08:17 Dose: 75 mg Sodium Biphosphate/Sodium Phosphate (Sodium Phosphate,[place]-Dibasic 133 Ml Enema) 133 ml [place] ONCE PRN PRN Reason: Constipation Last Admin: 10/05/22 10:54 Dose: 133 ml Topiramate (Topiramate 25 Mg Tablet) 25 mg PO DAILY [facility] Last Admin: 11/02/22 08:49 Dose: 25 mg Allergies Allergies Allergy/AdvReac Type Severity Reaction Status Date / Time aripiprazole [Abilify] Allergy Unknown tongue Verified 08/18/22 05:59 swells and gain weight risperidone [From Risperdal] AdvReac Unknown gain Verified 08/18/22 05:59 weight, and slurred speech cariprazine [From Vraylar] AdvReac Verified 08/18/22 05:59 haloperidol [From Haldol] AdvReac DYSTONIA Verified 08/18/22 05:59 paliperidone AdvReac dystonia Verified 08/18/22 05:59 trazodone AdvReac DYSTONIA Verified 08/18/22 05:59 Assessment & Plan Assessment & Plan (1) Schizoaffective disorder, bipolar type: Status: Acute Code(s): F25.0 - Schizoaffective disorder, bipolar type Assessment and Plan: continues on clozapine, concerned to not gain weight so actively eating less? of hx of eating do 10/26/22 wants to inc clozapine worried about having to stay 2 weeks Plan 22 yo female, history of schizoaffective disorder, bipolar type, PTSD, polysubstance use with current reports of increase in depressive sx with SI, SIBS and difficulty in her new [place] [facility] in [place]. Plan: Collateral contact Increase Sertraline to 75 mg daily Encourage milieu involvement ?Caplyta, ?Clozaril trials-will discuss with pt, mother, Hermes's guardian. 10/01/22: Increase Latuda to 100 mg hs Application sent to [facility] 10/03/22: Amendment of community [facility]sh[facility] initiated. Clozaril on hold for this reason until completed. 10/04 continue current treatment plan 10/05 continue current treatment plan 10/07/22: Court date 10/14/22 to possibly amend [facility] and to begin Clozaril Continue current regime. 10/08/22: Tolerating recent increases of Latuda/Sertraline. Await court approval for potential Clozaril trial. 10/09/22: Continue current regime. 10/10/22: Olanzapine prn, Court to review Arshad on 10/14/22. 10/11: Continue current regimen and plans/awaiting court order on 10/14 10/12: Continue current regimen and plans 10/13: Continue current regimen and plans 10/16/22: Continue Clozapine 25 mg hs Discontinue Olanzapine scheduled Decrease Latuda to 80 mg 10/17/22: Increase Clozapine to 50 mg hs 10/18: continue current plan. 10/19: FU on tolerability of Clozapine by primary team. Continue same for now. 10/21/22: No changes today. Continue current regime and plan for now. 10/22/22: Continue current regime 10/24/22: Increase Clozapine to 100 mg HS 10/27/22: Increase Clozapine to 125 mg HS 10/28/22: Continue current regime and plan. 10/29/22: Continue current regime and plan. 10/30/22: Increase Clozapine to 150 mg HS on 10/31. 10/31/22; continue current treatment regimen 11/01/2022 continue current treatment regimen; will review and see if clozapine titration is automatic or if med needs to be increased 11/02 increase clozapine to 175 mg for continued AH Patient educated on: diagnosis and medication risk/benefits Informed Consent: understands Reason for contiued inpatient stay Substantial Risk for: med/psych decompensation Time Spent With Patient Time: Total time managing care of this patient today ____ minutes.
[2022-11-02] MEDS: Lurasidone HCl 20 MG TABLET PO (19:50)
[2022-11-02] MEDS: Sennosides 8.6 MG TABLET 17.2 MG PO (19:50)
[2022-11-02] MEDS: cloZAPine 100 MG, cloZAPine 75 MG 175 MG PO (19:50)
[2022-11-02] MEDS: Acetaminophen 325 MG TABLET 650 MG PO (19:56)
[2022-11-03 06:00] VITALS: BP 107/70; PULSE 82; TEMP 37.1; O2SAT 98
[2022-11-03] MEDS: Benztropine Mesylate 1 MG TABLET PO ×3 (07:56→20:56)
[2022-11-03] MEDS: Docusate Sodium 100 MG CAPSULE PO ×2 (07:56→20:56)
[2022-11-03] MEDS: Topiramate 25 MG TABLET PO (07:57)
[2022-11-03] MEDS: Sertraline HCL 25 MG TABLET 75 MG PO (07:57)
[2022-11-03] MEDS: polyethylene glycoL 3350 17 GM POWD.PACK PO (07:58)
[2022-11-03] MEDS: lamoTRIgine 100 MG TABLET PO (08:19)
[2022-11-03] MEDS: hydrOXYzine HCL 25 MG TABLET PO (16:15)
[2022-11-03] MEDS: OLANZapine 5 MG TABLET PO (16:15)
--- NOTE | 2022-11-03 16:50 | HO.PSYCHPN ---
Subjective Subjective Date of Service: 11/03/22 Reason For Visit: Schizoaffective disorder Subjective Notes: Conditional Voluntary Interim History: Discharge planned for 11/05/22. Family visited over the weekend and removed some social media sites from pt's phone- I need to get away from this and live my life, not what others expect of me. Voices persist, but are decreased in intensity and quality-with relief pt reports. Weekend team raised dose of Clozapine to 175 mg. Team meeting today with pt's residence, family, community supports. Medication Compliance: Yes Side effects from medications: No Attending Groups: No Review of Systems Acute medical concerns: No Medical Review of Systems: unchanged Mental Status Exam Mental Status Exam Patient Appearance: Appropriate Patient Orientation: Person, Place, Time and Situation Level of Consciousness: Alert Patient Behavior: Appropriate, Talkative, Cooperative and Good Eye Contact Mood Description: Apprehensive Affect Description: Apprehensive Patient Cognition Impaired: No Ability to Follow Directions: Fair Speech Pattern: Spontaneous Speech Memory Description: Intact Hallucinations: Auditory Delusions: Paranoid Ideation (mild per pt report) Perceptual Disturbances: Depersonalization and Derealization Thought Process: Distracted Thought Content: positive for Circumstantial Depressive Symptoms: Low Self Esteem Judgement: Good Diagnostics Vital Signs (24Hr): Vital Signs - 24 hr 11/02/22 17:14 11/03/22 06:00 Temperature 97.3 F 98.7 F Pulse Rate 110 H 82 Respiratory Rate 16 Blood Pressure 107/71 107/70 Pulse Oximetry 96 98 Oxygen Delivery Method Room Air Room Air BMI result Body Mass Index 28.3 Labs 10/15/22 08:28 09/27/22 10:22 Medications Medications Current Medications Acetaminophen (Acetaminophen 325 Mg Tablet) 650 mg PO Q6H PRN PRN Reason: Headache/Pain Mild Scale (1-3) Last Admin: 11/02/22 19:56 Dose: 650 mg Al Hydroxide/Mg Hydroxide (Magnesium Hydrox/Alum Hydrox 30 Ml Oral.Susp) 30 ml PO Q6H PRN PRN Reason: Heartburn/Nausea Benztropine Mesylate (Benztropine Mesylate 1 Mg Tablet) 1 mg PO TID DUSTIN Last Admin: 11/03/22 14:22 Dose: 1 mg Bisacodyl (Bisacodyl 5 Mg Tablet.Dr) 10 mg PO DAILY PRN PRN Reason: Constipation Last Admin: 10/28/22 14:59 Dose: 10 mg Clozapine 100 mg/ Clozapine 75 (mg) 175 mg PO BEDTIME [facility] Last Admin: 11/02/22 19:50 Dose: 175 mg Docusate Sodium (Docusate Sodium 100 Mg Capsule) 100 mg PO BID [facility] Last Admin: 11/03/22 07:56 Dose: 100 mg Hydroxyzine HCl (Hydroxyzine Hcl 25 Mg Tablet) 25 mg PO Q6H PRN PRN Reason: Anxiety Last Admin: 11/03/22 16:15 Dose: 25 mg Lamotrigine (Lamotrigine 100 Mg Tablet) 100 mg PO DAILY [facility] Last Admin: 11/03/22 08:19 Dose: 100 mg Lurasidone HCl (Lurasidone Hcl 20 Mg Tablet) 20 mg PO BEDTIME [facility] Last Admin: 11/02/22 19:50 Dose: 20 mg Magnesium Hydroxide (Milk Of Magnesia 30 Ml Oral.Susp) 30 ml PO DAILY PRN PRN Reason: Constipation Nicotine Polacrilex (Nicotine Polacrilex 2 Mg Gum) 2 mg BUCCAL Q2H PRN PRN Reason: Smoking Cessation Last Admin: 11/02/22 19:13 Dose: 2 mg Olanzapine (Olanzapine 5 Mg Tablet) 5 mg PO Q4H PRN PRN Reason: psychotic agitation Last Admin: 11/03/22 16:15 Dose: 5 mg Pharmacy Consult (Consult Rx Perform Med Rec) 1 each MISCELLANE ONCE PRN PRN Reason: Consult order Polyethylene Glycol (Polyethylene Glycol 3350 17 Gm Powd.Pack) 17 gm PO DAILY [facility] Last Admin: 11/03/22 07:58 Dose: 17 gm Senna (Sennosides 8.6 Mg Tablet) 17.2 mg PO BEDTIME [facility] Last Admin: 11/02/22 19:50 Dose: 17.2 mg Sertraline HCl (Sertraline Hcl 25 Mg Tablet) 75 mg PO DAILY [facility] Last Admin: 11/03/22 07:57 Dose: 75 mg Sodium Biphosphate/Sodium Phosphate (Sodium Phosphate,[place]-Dibasic 133 Ml Enema) 133 ml [place] ONCE PRN PRN Reason: Constipation Last Admin: 10/05/22 10:54 Dose: 133 ml Topiramate (Topiramate 25 Mg Tablet) 25 mg PO DAILY [facility] Last Admin: 11/03/22 07:57 Dose: 25 mg Allergies Allergies Allergy/AdvReac Type Severity Reaction Status Date / Time aripiprazole [Abilify] Allergy Unknown tongue Verified 08/18/22 05:59 swells and gain weight risperidone [From Risperdal] AdvReac Unknown gain Verified 08/18/22 05:59 weight, and slurred speech cariprazine [From Vraylar] AdvReac Verified 08/18/22 05:59 haloperidol [From Haldol] AdvReac DYSTONIA Verified 08/18/22 05:59 paliperidone AdvReac dystonia Verified 08/18/22 05:59 trazodone AdvReac DYSTONIA Verified 08/18/22 05:59 Assessment & Plan Assessment & Plan (1) Schizoaffective disorder, bipolar type: Status: Acute Code(s): F25.0 - Schizoaffective disorder, bipolar type Assessment and Plan: continues on clozapine, concerned to not gain weight so actively eating less? of hx of eating do 10/26/22 wants to inc clozapine worried about having to stay 2 weeks Plan 22 yo female, history of schizoaffective disorder, bipolar type, PTSD, polysubstance use with current reports of increase in depressive sx with SI, SIBS and difficulty in her new [facility] in [place]. Plan: Collateral contact Increase Sertraline to 75 mg daily Encourage milieu involvement ?Caplyta, ?Clozaril trials-will discuss with pt, mother, Hermes's guardian. 10/01/22: Increase Latuda to 100 mg hs Application sent to [facility] 10/03/22: Amendment of community Arsh[facility] initiated. Clozaril on hold for this reason until completed. 10/04 continue current treatment plan 10/05 continue current treatment plan 10/07/22: Court date 10/14/22 to possibly amend [facility] and to begin Clozaril Continue current regime. 10/08/22: Tolerating recent increases of Latuda/Sertraline. Await court approval for potential Clozaril trial. 10/09/22: Continue current regime. 10/10/22: Olanzapine prn, Court to review Arsh[facility] on 10/14/22. 10/11: Continue current regimen and plans/awaiting court order on 10/14 10/12: Continue current regimen and plans 10/13: Continue current regimen and plans 10/16/22: Continue Clozapine 25 mg hs Discontinue Olanzapine scheduled Decrease Latuda to 80 mg 10/17/22: Increase Clozapine to 50 mg hs 10/18: continue current plan. 10/19: FU on tolerability of Clozapine by primary team. Continue same for now. 10/21/22: No changes today. Continue current regime and plan for now. 10/22/22: Continue current regime 10/24/22: Increase Clozapine to 100 mg HS 10/27/22: Increase Clozapine to 125 mg HS 10/28/22: Continue current regime and plan. 10/29/22: Continue current regime and plan. 10/30/22: Increase Clozapine to 150 mg HS on 10/31. 10/31/22; continue current treatment regimen 11/01/2022 continue current treatment regimen; will review and see if clozapine titration is automatic or if med needs to be increased 11/02 increase clozapine to 175 mg for continued AH 11/03/21: Discharge 11/05. Continue current regime. Clozaril level 11/04/22. Patient educated on: therapeutic strategies Informed Consent: understands and further education needed Reason for contiued inpatient stay Substantial Risk for: rapid decompensation Time Spent With Patient Time: Total time managing care of this patient today ____ minutes.
[2022-11-03] MEDS: Nicotine Polacrilex 2 MG GUM BUCCAL ×2 (17:24→20:08)
[2022-11-03 20:17] VITALS: BP 130/78; PULSE 103; TEMP 36.8
[2022-11-03] MEDS: Sennosides 8.6 MG TABLET 17.2 MG PO (20:56)
[2022-11-03] MEDS: Lurasidone HCl 20 MG TABLET PO (20:57)
[2022-11-03] MEDS: cloZAPine 100 MG, cloZAPine 75 MG 175 MG PO (20:57)
[2022-11-04] MEDS: Docusate Sodium 100 MG CAPSULE PO ×2 (08:37→19:12)
[2022-11-04] MEDS: Topiramate 25 MG TABLET PO (08:37)
[2022-11-04] MEDS: Sertraline HCL 25 MG TABLET 75 MG PO (08:37)
[2022-11-04] MEDS: Benztropine Mesylate 1 MG TABLET PO ×3 (08:38→19:12)
[2022-11-04] MEDS: lamoTRIgine 100 MG TABLET PO (08:38)
[2022-11-04] MEDS: Nicotine Polacrilex 2 MG GUM BUCCAL (14:11)
[2022-11-04] MEDS: Lurasidone HCl 20 MG TABLET PO (19:12)
[2022-11-04] MEDS: cloZAPine 100 MG, cloZAPine 75 MG 175 MG PO (19:12)
[2022-11-04] MEDS: Sennosides 8.6 MG TABLET 17.2 MG PO (19:12)
[2022-11-04 19:15] VITALS: BP 118/82; PULSE 85; TEMP 36.7
--- NOTE | 2022-11-04 21:24 | P.PNPSI_ITS ---
Subjective Subjective Date of Service: 11/04/22 Reason For Visit: Schizoaffective disorder Subjective Notes: Conditional Voluntary Interim History: Pt reports she is prepared to return to her group program. We will increase Clozapine to 200 mg on discharge. Messages left for KAREN Burns APRN Prescriber [phone] Weekly CBC, WBC, ANC scheduled with [facility] [phone] Pt tells mother she lactates, for the past two years, with very light discharge. Prolactin level ordered. Medication Compliance: Yes Side effects from medications: No Attending Groups: No Review of Systems Acute medical concerns: No Medical Review of Systems: unchanged Mental Status Exam Mental Status Exam Patient Appearance: Appropriate Patient Orientation: Person, Place, Time and Situation Level of Consciousness: Alert Patient Behavior: Appropriate, Talkative, Cooperative and Good Eye Contact Mood Description: Apprehensive Affect Description: Apprehensive Patient Cognition Impaired: No Ability to Follow Directions: Fair Speech Pattern: Spontaneous Speech Memory Description: Intact Hallucinations: Auditory Delusions: Paranoid Ideation (mild per pt report) Perceptual Disturbances: Depersonalization and Derealization Thought Process: Distracted Thought Content: positive for Circumstantial Depressive Symptoms: Low Self Esteem Judgement: Good Diagnostics Vital Signs (24Hr): Vital Signs - 24 hr 11/04/22 19:15 Temperature 98.0 F Pulse Rate 85 Blood Pressure 118/82 BMI result Body Mass Index 28.3 Labs 10/15/22 08:28 09/27/22 10:22 Medications Medications Current Medications Acetaminophen (Acetaminophen 325 Mg Tablet) 650 mg PO Q6H PRN PRN Reason: Headache/Pain Mild Scale (1-3) Last Admin: 11/02/22 19:56 Dose: 650 mg Al Hydroxide/Mg Hydroxide (Magnesium Hydrox/Alum Hydrox 30 Ml Oral.Susp) 30 ml PO Q6H PRN PRN Reason: Heartburn/Nausea Benztropine Mesylate (Benztropine Mesylate 1 Mg Tablet) 1 mg PO TID [facility] Last Admin: 11/04/22 19:12 Dose: 1 mg Bisacodyl (Bisacodyl 5 Mg Tablet.Dr) 10 mg PO DAILY PRN PRN Reason: Constipation Last Admin: 10/28/22 14:59 Dose: 10 mg Clozapine 100 mg/ Clozapine 75 (mg) 175 mg PO BEDTIME [facility] Last Admin: 11/04/22 19:12 Dose: 175 mg Docusate Sodium (Docusate Sodium 100 Mg Capsule) 100 mg PO BID [facility] Last Admin: 11/04/22 19:12 Dose: 100 mg Hydroxyzine HCl (Hydroxyzine Hcl 25 Mg Tablet) 25 mg PO Q6H PRN PRN Reason: Anxiety Last Admin: 11/03/22 16:15 Dose: 25 mg Lamotrigine (Lamotrigine 100 Mg Tablet) 100 mg PO DAILY [facility] Last Admin: 11/04/22 08:38 Dose: 100 mg Lurasidone HCl (Lurasidone Hcl 20 Mg Tablet) 20 mg PO BEDTIME [facility] Last Admin: 11/04/22 19:12 Dose: 20 mg Magnesium Hydroxide (Milk Of Magnesia 30 Ml Oral.Susp) 30 ml PO DAILY PRN PRN Reason: Constipation Nicotine Polacrilex (Nicotine Polacrilex 2 Mg Gum) 2 mg BUCCAL Q2H PRN PRN Reason: Smoking Cessation Last Admin: 11/04/22 14:11 Dose: 2 mg Olanzapine (Olanzapine 5 Mg Tablet) 5 mg PO Q4H PRN PRN Reason: psychotic agitation Last Admin: 11/03/22 16:15 Dose: 5 mg Pharmacy Consult (Consult Rx Perform Med Rec) 1 each MISCELLANE ONCE PRN PRN Reason: Consult order Polyethylene Glycol (Polyethylene Glycol 3350 17 Gm Powd.Pack) 17 gm PO DAILY [facility] Last Admin: 11/04/22 08:38 Dose: Not Given Senna (Sennosides 8.6 Mg Tablet) 17.2 mg PO BEDTIME [facility] Last Admin: 11/04/22 19:12 Dose: 17.2 mg Sertraline HCl (Sertraline Hcl 25 Mg Tablet) 75 mg PO DAILY [facility] Last Admin: 11/04/22 08:37 Dose: 75 mg Sodium Biphosphate/Sodium Phosphate (Sodium Phosphate,[place]-Dibasic 133 Ml Enema) 133 ml [place] ONCE PRN PRN Reason: Constipation Last Admin: 10/05/22 10:54 Dose: 133 ml Topiramate (Topiramate 25 Mg Tablet) 25 mg PO DAILY [facility] Last Admin: 11/04/22 08:37 Dose: 25 mg Allergies Allergies Allergy/AdvReac Type Severity Reaction Status Date / Time aripiprazole [Abilify] Allergy Unknown tongue Verified 08/18/22 05:59 swells and gain weight risperidone [From Risperdal] AdvReac Unknown gain Verified 08/18/22 05:59 weight, and slurred speech cariprazine [From Vraylar] AdvReac Verified 08/18/22 05:59 haloperidol [From Haldol] AdvReac DYSTONIA Verified 08/18/22 05:59 paliperidone AdvReac dystonia Verified 08/18/22 05:59 trazodone AdvReac DYSTONIA Verified 08/18/22 05:59 Assessment & Plan Assessment & Plan (1) Schizoaffective disorder, bipolar type: Status: Acute Code(s): F25.0 - Schizoaffective disorder, bipolar type Assessment and Plan: continues on clozapine, concerned to not gain weight so actively eating less? of hx of eating do 10/26/22 wants to inc clozapine worried about having to stay 2 weeks Plan 22 yo female, history of schizoaffective disorder, bipolar type, PTSD, polysubstance use with current reports of increase in depressive sx with SI, SIBS and difficulty in her new nursing home in [place]. Plan: Collateral contact Increase Sertraline to 75 mg daily Encourage milieu involvement ?Caplyta, ?Clozaril trials-will discuss with pt, mother, Hermes's guardian. 10/01/22: Increase Latuda to 100 mg hs Application sent to [facility] 10/03/22: Amendment of community Arshad initiated. Clozaril on hold for this reason until completed. 10/04 continue current treatment plan 10/05 continue current treatment plan 10/07/22: Court date 10/14/22 to possibly amend [facility] and to begin Clozaril Continue current regime. 10/08/22: Tolerating recent increases of Latuda/Sertraline. Await court approval for potential Clozaril trial. 10/09/22: Continue current regime. 10/10/22: Olanzapine prn, Court to review Arshad on 10/14/22. 10/11: Continue current regimen and plans/awaiting court order on 10/14 10/12: Continue current regimen and plans 10/13: Continue current regimen and plans 10/16/22: Continue Clozapine 25 mg hs Discontinue Olanzapine scheduled Decrease Latuda to 80 mg 10/17/22: Increase Clozapine to 50 mg hs 10/18: continue current plan. 10/19: FU on tolerability of Clozapine by primary team. Continue same for now. 10/21/22: No changes today. Continue current regime and plan for now. 10/22/22: Continue current regime 10/24/22: Increase Clozapine to 100 mg HS 10/27/22: Increase Clozapine to 125 mg HS 10/28/22: Continue current regime and plan. 10/29/22: Continue current regime and plan. 10/30/22: Increase Clozapine to 150 mg HS on 10/31. 10/31/22; continue current treatment regimen 11/01/2022 continue current treatment regimen; will review and see if clozapine titration is automatic or if med needs to be increased 11/02 increase clozapine to 175 mg for continued AH 11/04/22- discharge 11/05 on discharge increase Clozapine to 200 mg HS Patient educated on: medication risk/benefits and therapeutic strategies Informed Consent: understands Reason for contiued inpatient stay Substantial Risk for: harm to self and rapid decompensation Time Spent With Patient Time: Total time managing care of this patient today ____ minutes.
[2022-11-05] MEDS: lamoTRIgine 100 MG TABLET PO (08:49)
[2022-11-05 08:50] LABS: Neut%MD 49.9 %; WBCANC 5.9 X10*3/uL
[2022-11-05] MEDS: Docusate Sodium 100 MG CAPSULE PO (08:50)
[2022-11-05] MEDS: Sertraline HCL 25 MG TABLET 75 MG PO (08:50)
[2022-11-05] MEDS: Benztropine Mesylate 1 MG TABLET PO (08:50)
[2022-11-05] MEDS: Topiramate 25 MG TABLET PO (08:50)
[2022-11-05 09:14] VITALS: BP 109/77; PULSE 91; RESP 16; TEMP 36.4; O2SAT 97
--- NOTE | 2022-11-05 18:37 | PM.PSYDC ---
DS: Providers Provider Date of Service: 11/05/22 Date of admission: 09/29/22 15:19 Date of discharge: 11/05/22 Primary care physician: Brianna Dunn MD Admitting clinician: Zee Washington Attending physician on admission: Zeferino Gentile Attending physician on discharge: Zeferino Gentile Discharging clinician: Zee Washington DS: Diagnosis Discharge Diagnosis (1) Schizoaffective disorder, bipolar type: Status: Acute DS: Medications Discharge Medications Home Medications: Previous Rx's Medication Instructions Recorded benztropine 1 mg tablet 1 tab PO TID #90 tabs 11/03/22 bisacodyl 5 mg tablet,delayed 10 mg PO DAILY PRN Constipation 11/03/22 release #60 tabs clozapine 200 mg tablet 200 mg PO BEDTIME #7 tabs 11/03/22 docusate sodium 100 mg capsule 100 mg PO BID #60 caps 11/03/22 lamotrigine 100 mg tablet 1 tab PO DAILY #30 tabs 11/03/22 nicotine (polacrilex) 2 mg gum 1 gum PO Q2-4H PRN Smoking 11/03/22 Cessation #60 ea polyethylene glycol 3350 17 gram 17 g PO DAILY #1 units 11/03/22 oral powder packet sennosides 8.6 mg tablet (Senna 17.2 mg PO BEDTIME #1 units 11/03/22 Lax) sertraline 25 mg tablet 75 mg PO DAILY #90 tabs 11/03/22 topiramate 25 mg tablet (Topamax) 25 mg PO BID #60 tabs 11/03/22 olanzapine 5 mg tablet 5 mg PO BID PRN psychosis #60 tabs 11/05/22 Mental Status Exam Mental Status Exam Patient Appearance: Appropriate Patient Orientation: Person, Place, Time and Situation Level of Consciousness: Alert Patient Behavior: Appropriate, Talkative, Cooperative and Good Eye Contact Mood Description: Apprehensive Affect Description: Apprehensive Patient Cognition Impaired: No Ability to Follow Directions: Fair Speech Pattern: Spontaneous Speech Memory Description: Intact Hallucinations: Auditory Delusions: Paranoid Ideation (mild per pt report) Perceptual Disturbances: Depersonalization and Derealization Thought Process: Distracted Thought Content: positive for Circumstantial Depressive Symptoms: Low Self Esteem Judgement: Good Data Data Completed and Pending Completed studies during hospitalization [Text1]: 03/14/23 03/15/23 03/15/23 08:26 08:43 08:43 Absolute Neuts (auto) 3.0 Prolactin Pending Clozapine Pending Norclozapine Pending DS: Summary Hospital Course Hospital Course: Admission to adult psychiatry for exacerbation of schizoaffective disorder, with SIMorelia Weeks has been struggling with this illness for a few years and has greater knowledege of her symptoms and available treatments. In discussion with her and her mother, who is her guardian, Percy informed the team she was prepared to do a Clozapine trial. This was initiated and titrated to 200 mg upon discharge. Although stressful, Liane tolerated the trial with great strength and courage. Sertraline was increased, Topiramate was initiated. Olanzapine was changed to prn. Lamictal and Benztropine were continued and Latuda was stopped. She will return to her residential program in [place] and [facility] for therapy and psychopharmacology, with weekly blood draws with [facility] [place]. Status at Discharge Functional status at discharge: independent ambulation Overall status at discharge: patient is progressing back to baseline Time Spent with Patient Time attestation: Total time managing care of this patient today ____ minutes. Time spent: Greater than 30 minutes Discharge Plan Discharge Anticipated Discharge Date/Time: 11/05/22 12:00 Patient Disposition: Xfer Other Discharge Diagnosis: Schizoaffective Disorder, Bipolar Type Referrals: Residential Placement: [facility] [Other] - 1 Week (Returning to long-term placement at [place] ) Psych Prescriber: Mikayla Harrington ([facility]) [Other] - 11/13/22 11:30 am (Telehealth/video ) Therapy: [facility] [Other] - 1 Week (Staff at [place] will be referring you for a therapist at [facility] [place]) Weekly Lab Work: [facility] [Other] - 11/11/22 (Please go for labs every Thursday to continue Clozaril ) Brianna Dunn MD [Primary Care Provider] - 11/18/22 9:00 am (in office) Discharge Medications: New sertraline 25 mg Tablet 75 mg PO DAILY Qty: 90 0RF sennosides [Senna Lax] 8.6 mg Tablet 17.2 mg PO BEDTIME Qty: 1 0RF topiramate [Topamax] 25 mg tablet 25 mg PO BID Qty: 60 0RF olanzapine 5 mg tablet 5 mg PO BID PRN (Reason: psychosis) Qty: 60 0RF hydroxyzine HCl 25 mg tablet 25 mg PO QID PRN (Reason: anxiety) Qty: 60 0RF clozapine 200 mg tablet 200 mg PO BEDTIME Qty: 7 0RF clozapine 200 mg tablet 200 mg PO BEDTIME Qty: 7 0RF clozapine 200 mg tablet 200 mg PO BEDTIME Qty: 7 0RF Continued nicotine (polacrilex) 2 mg gum 1 gum PO Q2-4H PRN (Reason: Smoking Cessation) Qty: 60 0RF benztropine 1 mg tablet 1 tab PO TID Qty: 90 0RF lamotrigine 100 mg tablet 1 tab PO DAILY Qty: 30 0RF Discontinued olanzapine 2.5 mg tablet 1 tab PO BEDTIME sertraline 50 mg tablet 1 tab PO DAILY Latuda 80 mg tablet 1 tab PO BEDTIME No Action docusate sodium 250 mg capsule 250 mg PO DAILY Qty: 90 3RF polyethylene glycol 3350 17 gram powder in packet 17 g PO DAILY PRN (Reason: constipation) Qty: 30 5RF Discharge Orders: Discharge Order (Routine); Ordered 11/05/22 Ordered By: Zee Washington Diet: Advance to usual diet Activity on Discharge: As tolerated Stand Alone Forms: Patient Portal Discharge page, Community Support Care Plan Goals: Mood and Behavioral Stabilization Health Concerns: Mood and Behavioral Stabilization Plan of Treatment: Attend follow up appointments Take medications as directed Assessment: Pt interviewed prior to discharge and found to be fully oriented and without any SI/HI. Pt has insight and demonstrates good judgment in terms of wanting to pursue treatment. Pt is not in imminent risk of harm to self or others and has a safety plan that includes presenting to the closest ER or calling 911 if feeling unsafe. Pt has been observed closely by nursing and unit staff throughout admission. Pt has not engaged in any behaviors that suggest dangerousness to self or others and has demonstrated appropriate behaviors and impulse control. Discharge Date/Time: 11/05/22 11:17
[2022-11-06 16:48] LABS: Prolactin 19.4 ng/mL
[2022-11-09 01:53] LABS: Clozapine (Clozaril) 309 mcg/L; Norclozapine 140 mcg/L (25-400)
--- NOTE | 2023-02-09 10:11 | PM.EVENT ---
Event Note Date of Service: 02/09/23 Event Note: Informed by team that pt's mom and guardian, Samina called. Pt was given another patient's medication at her program this a.m. Reviewed regime with Samina, . Currently, Clozapine 225 mg a.m. Hydroxyzine 25 mg qid prn, Olanzapine 5 mg bid prn, Karlie, Sertraline 75 mg daily, Topiramate 25 mg bid, Benztropine 1 mg tid, Lamictal 100 mg daily, Citrucel, Colace, Miralax. Per Samina, pt was given Sertraline 150 mg and Wellbutrin XL 300 mg this a.m. Discussed with Samina pt should not drive today, she can continue her regular regime, holding Sertraline until 02/10 and to call or present is pt is having any adverse effects. No allergy interactions noted from pt's previous allergy list. Time Spent With Patient Time: Total time managing care of this patient today ____ minutes.
--- NOTE | 2023-02-18 16:47 | P.EN_ITS ---
Documented by User: Zee Washington APRN 02/18/23 16:49 Event Note Date of Service: 02/18/23 Event Note: Call from [facility] [phone] with questions about neutropenia on 09/27/22. Clozaril initiation 10/15/22. Encouraged team to discuss with Clozaril [facility]. Time Spent With Patient Time: Total time managing care of this patient today ____ minutes. Documented by User: Zeferino Gentile MD 02/19/23 21:56 Event Note Date of Service: 02/19/23
--- OUTSIDE RECORDS SUMMARY | 2023-05-11 12:33 | XMS_ITS | Continuity of Care Document ---
Author Name Unknown Organization [facility] ter Address [address] [place] [id number]- Care Team Providers Care Medication Reconciliation Technician Name Role Phone Latha Caputo NP Primary Care Physician Encounter [facility] Date(s): 08/04/19 - 08/04/[address] [address]- [facility] Attending Physician: Latha Caputo NP Allergies, Adverse Reactions, Alerts Substance Reaction Severity Status Abilify Active Medications Melatonin Daily at bedtime, 0 Refills, Maintenance, 08/06/18 9:22:45 EST Start Date: 08/06/18 Status: Ordered Problem List Condition Effective Dates Status Health Status Inform ant Bipolar I disorder, current or most recent episode hypomanic with anxious distress(Confirmed) Active Marijuana use(Confirmed) Active Social History Social History Type Response Tobacco Use: 4 or less cigar ettes(less than 1/4 pack)/day in last 30 days. Sex
--- OUTSIDE RECORDS SUMMARY | 2023-05-11 12:33 | XMS_ITS | Continuity of Care Document ---
Author Name Unknown Organization [facility] ter Address [address] [place] [address]- Care Team Providers Care Cook Helper Fruit Name Role Phone Latha Caputo NP Primary Care Physician Encounter [facility] [id number] Date(s): 12/02/20 - 12/02/[address] [address]- Discharge Disposition: A-D/C Walkout Attending Physician: Not on Staff, Attending MD Admitting Physician: Not on Staff, Admitting MD Referring Physician: Not on Staff, Referring MD Allergies, Adverse Reactions, Alerts Substance Reaction Severity Status Abilify Active Medications benztropine 1 mg oral tablet 1 mg, 1, tablet, By Mouth, 2 times a day, # 60 tablet, Refills 0, Tot. Refills 0, Maintenance, 12/03/20 0:52:00 EDT, Route to Pharmacy Electronically, [facility] #[id number], Partial fill upon patient request if the prescription is for a schedule... Start Date: 12/03/20 Stop Date: 01/02/21 Status: Ordered Melatonin Daily at bedtime, 0 Refills, Maintenance, 08/06/18 9:22:45 EST Start Date: 08/06/18 Status: Ordered Problem List Condition Effective Dates Status Health Status Inform ant Bipolar I disorder, current or most recent episode hypomanic with anxious distress(Confirmed) Active Marijuana use(Confirmed) Active Vital Signs Most recent to oldest [Reference Range]: 1 2 Height 160 cm (12/02/20 3:15 PM) Weight 68.4 kg (12/02/20 3:15 PM) Oxygen Saturation [94-100 %] 99 % (12/02/20 3:15 PM) 100 % (12/02/20 3:05 PM) Pulse Rate [55-90 bpm] 115 bpm *H* (12/02/20 3:15 PM) 123 bpm *H* (12/02/20 3:05 PM) Body Mass Index [18.5-24.99] 26.72 *H* (12/02/20 3:15 PM) Blood Pressure [90-138/55-84 mm Hg] 143/ 88mm Hg *H* (12/02/20 3:15 PM) Respiratory Rate [16-30 br/min] 18 br/mi n (12/02/20 3:15 PM) 17 br/min (12/02/20 3:05 PM) Temperature [96.8-100.4 DegF] 98.1 DegF (12/02/20 3:15 PM) Mode of Delivery (Oxygen) Room air (12/02/20 3:15 PM) Room air (12/02/20 3:05 PM) Blood pressure sites Arm, left (12/02/20 3:15 PM) Temperature Route Oral (12/02/20 3:15 PM) Dry Weight 68.4 kg (12/02/20 3:15 PM) Weight Obtained Via Patient/family state d (12/02/20 3:15 PM) Dry Weight Obtained Via Patient/family s tated (12/02/20 3:15 PM) Social History Social History Type Response Tobacco Use: 4 or less cigar ettes(less than 1/4 pack)/day in last 30 days. Sex
--- OUTSIDE RECORDS SUMMARY | 2023-05-11 12:33 | XMS_ITS | Continuity of Care Document ---
Author Name Unknown Organization [facility] ter Address [address] [place] [id number]- Care Team Providers Care Production Scheduler Name Role Phone Harshal MEDRANO, Latha Paul Primary Care Physician Encounter [facility] ACCT R [id number] Date(s): 12/02/20 - 12/03/[address] [address]- Discharge Disposition: A-D/C Home Attending Physician: Pete Trotter MD Admitting Physician: Pete Trotter MD Referring Physician: Not on Staff, Referring MD Allergies, Adverse Reactions, Alerts Substance Reaction Severity Status Abilify Active Medications benztropine 1 mg oral tablet 1 mg, 1, tablet, By Mouth, 2 times a day, # 60 tablet, Refills 0, Tot. Refills 0, Maintenance, 12/03/20 0:52:00 EDT, Route to Pharmacy Electronically, [facility] #[id number], Partial fill upon patient request if the [...] recent to oldest [Reference Range]: 1 2 3 Height 160 cm (12/03/20 1:30 AM) 160 cm (12/02/20 10:14 PM) 160 cm (12/02/20 6:55 PM) Weight 68.5 kg (12/03/20 1:30 AM) 68.5 kg (12/02/20 10:14 PM) 68.5 kg (12/02/20 6:55 PM) Oxygen Saturation [94-100 %] 98 % (12/03/20 1:30 AM) 99 % (12/02/20 10:14 PM) 100 % (12/02/20 9:29 PM) Pulse Rate [55-90 bpm] 76 bpm (12/03/20 1:30 AM) 62 bpm (12/02/20 10:14 PM) 73 bpm (12/02/20 9:29 PM) Body Mass Index [18.5-24.99] 26.76 *H* (12/02/20 10:14 PM) 26.76 *H* (12/02/20 6:55 PM) Blood Pressure [90-138/55-84 mm Hg] 103/63mm Hg (12/03/20 1:30 AM) 114/68mm Hg (12/02/20 10:14 PM) 123/80mm Hg (12/02/20 9:29 PM) Respiratory Rate [16-30 br/min] 16 br/min (12/03/20 1:30 AM) 16 br/min (12/02/20 10:14 PM) 18 br/min (12/02/20 9:29 PM) Temperature [96.8-100.4 DegF] 98.0 DegF (12/02/20 10:14 PM) 98.5 DegF (12/02/20 9:29 PM) 97.9 DegF (12/02/20 6:55 PM) Mode of Delivery (Oxygen) Room air (12/03/20 1:30 AM) Room air (12/02/20 10:14 PM) Room air (12/02/20 9:29 PM) Blood pressure sites Arm, right (12/03/20 1:30 AM) Arm, right (12/02/20 10:14 PM) Arm, right (12/02/20 9:29 PM) Temperature Route Oral (12/02/20 10:14 PM) Oral (12/02/20 9:29 PM) Oral (12/02/20 6:55 PM) Dry Weight 68.5 kg (12/03/20 1:30 AM) 68.5 kg (12/02/20 10:14 PM) 68.5 kg (12/02/20 6:55 PM) Weight Obtained Via Standing scale (12/02/20 6:55 PM) Dry Weight Obtained Via Standing scale (12/02/20 6:55 PM) Social History Social History Type Response Tobacco Use: 4 or less cigar ettes(less than 1/4 pack)/day in last 30 days. Sex
--- OUTSIDE RECORDS SUMMARY | 2023-05-11 12:33 | XMS_ITS | Continuity of Care Document ---
Author Name Unknown Organization [facility] Address [address] [place] [address]- Care Team Providers Care Sports Umpire Name Role Phone Harshal MEDRANO, Latha Paul Primary Care Physician Encounter [facility] [place] Date(s): 04/01/23 - 05/01/23 [facility] [address] [place], [place] [address] Allergies, Adverse Reactions, Alerts Substance Reaction Severity Status Abilify Active Medications benztropine 1 mg oral tablet 1 mg, 1, tablet, By Mouth, 2 times a day, # 60 tablet, Refills 0, Tot. Refills 0, Maintenance, 12/03/20 0:52:00 EDT, Route to Pharmacy Electronically, [email or web address] #[id number], Partial fill upon patient request if the prescription is for a schedule... Start Date: 12/03/20 Stop Date: 01/02/21 Status: Ordered fluPHENAZine 1 mg oral tablet 1 mg, 1, tablet, By Mouth, Daily, At bedtime, # 30 tablet, Refills 1, Tot. Refills 1, Maintenance, 11/10/19 15:55:00 EDT, Route to Pharmacy Electronically, [facility]acy #[id number], 163, cm, 11/10/19 11:14:00 EDT, Height, 76.5, kg, 11/10/19 11:14:00 EDT, Start Date: 11/10/19 Stop Date: 01/09/20 Status: Ordered Melatonin Daily at bedtime, 0 Refills, Maintenance, 08/06/18 9:22:45 EST Start Date: 08/06/18 Status: Ordered Problem List Condition Confirmation Course Effective Dates Status Health St atus Informant Bipolar I disorder, current or most recent episode hypomanic with anxious distress Confirmed Active Marijuana use Confirmed Active Obese class I Confirmed Active Social History Social History Type Response Tobacco Use: 4 or less cigar ettes(less than 1/4 pack)/day in last 30 days. Sex Patient Care team information Care Team Personnel Name: Nancy Pena MA Position: [facility] RN Member Role: Primary Care Nurse Name: Laurie Campos MD Position: [facility] Physician - Behavioral Health Member Role: Lifetime Consulting Physician Name: Latha Caputo NP Position: [facility] Associate Professional Member Role: PCP Address: Address: [address] [place] [address] [facility] [place] [address]- Care Team Related Persons Name: JYOTI MATTHEWS Address: home [address] [place] [address] Name: INOCENCIO CARMEN Address: [address] [address]
--- OUTSIDE RECORDS SUMMARY | 2023-05-11 12:33 | XMS_ITS | Continuity of Care Document ---
Author Name Unknown Organization [facility] Address [address] [place] [address]- Care Team Providers Care Parts Counter Specialist Name Role Phone Harshal MEDRANO, Latha Paul Primary Care Physician Encounter [facility] Date(s): 01/28/23 - 01/28/[address] [address]- Encounter Diagnosis Headache disorder(Final) - 01/28/23 Discharge Disposition: A-D/C Home Attending Physician: Latha Velasquez MD Admitting Physician: Latha Velasquez MD Referring Physician: Not on Staff, Referring MD Allergies, Adverse Reactions, Alerts Substance Reaction Severity Status Abilify Active Medications acetaminophen 325 mg oral tablet 650 mg, 2, tablet, By Mouth, Every 6 hours, PRN, not to exceed 4000 mg/day, # 30 tablet, Refills 0,Tot. Refills 0, Acute 02/01/23 11:41:00 EDT, as needed for pain, 01/28/23 11:41:00 EDT, Route to Pharmacy Electronically, [facility]... Start Date: 01/28/23 Stop Date: 02/01/23 Status: Ordered benztropine 1 mg oral tablet 1 mg, 1, tablet, By Mouth, 2 times a day, # 60 tablet, Refills 0, Tot. Refills 0, Maintenance, 12/03/20 0:52:00 EDT, Route to Pharmacy Electronically, [facility] #[id number], Partial fill upon patient request if the prescription is for a schedule... Start Date: 12/03/20 Stop Date: 01/02/21 Status: Ordered fluPHENAZine 1 mg oral tablet 1 mg, 1, tablet, By Mouth, Daily, At bedtime, # 30 tablet, Refills 1, Tot. Refills 1, Maintenance, 11/10/19 15:55:00 EDT, Route to Pharmacy Electronically, [facility]/pharmacy #[id number], 163, cm, 11/10/19 11:14:00 EDT, Height, 76.5, kg, 11/10/19 11:14:00 EDT, Start Date: 11/10/19 Stop Date: 01/09/20 Status: Ordered ibuprofen 600 mg oral tablet 600 mg, 1, tablet, By Mouth, 4 times a day, PRN, not to exceed 3200 mg/day with food or milk, # 30 tablet, Refills 0, Tot. Refills 0, Acute 02/01/23 11:42:00 EDT, Pain , Mild, 01/28/23 11:41:00 EDT, Route to Pharmacy Electronically, [facility]... Start Date: 01/28/23 Stop Date: 02/01/23 Status: Ordered Melatonin Daily at bedtime, 0 Refills, Maintenance, 08/06/18 9:22:45 EST Start Date: 08/06/18 Status: Ordered Problem List Condition Confirmation Course Effective Dates Status Health [facility] Informant Bipolar I disorder, current or most recent episode hypomanic with anxious distress Confirmed Active Marijuana use Confirmed Active Obese class I Confirmed Active Results Radiology Reports * Exam Date Time Procedure Performing Provider Status 01/28/23 10:[address] Head/Brain W/O Contrast Shashank Erwin; Cyndi (Verified) Notes: (CT Head/Brain W/O Contrast) Reason For Exam: Headache(s) RESULT: CT Head/Brain W/O Contrast CT Head/Brain W/O Contrast INDICATION: Hx of Present Illness: Acute on chronic VAZQUEZ, intermittent since August. I feel like cinthiaead is cracked on the back. Denies fall or trauma injury to head. Pain is L posterior, L R sided, sharp - denies hx migraines, no other s s.; Reason: Headache(s); Clinical Question(s): Tumor Primary TECHNIQUE: Noncontrast head CT using axial technique and reconstructed in axial and coronal planes.Iterative reconstruction techniques are used to optimize dose and image quality. CTDIvol Head: 46.31 mGy, DLP Head: 862 mGy*cm. COMPARISON: CT head from 06/28/2018 FINDINGS: Automatic Pinsetter Mechanic view findings, lines and tubes: None. BRAIN AND EXTRA-AXIAL SPACES: No parenchymal hemorrhage, midline shift, or mass effect. Galan-white matter differentiation is wellpreserved. No acute infarct. Negative insular ribbon and hyperdense vessel signs. Ventricles, sulci, and basilar cisterns are normal. No white matter lesions. No subarachnoid hemorrhage. No subdural or epidural collection. CALVARIUM, SKULL BASE, AND SOFT TISSUES: No fractures or suspicious bony lesions. The paranasal sinuses and mastoid air cells are clear. Visualized orbits and globes are intact. The extracranial soft tissues are unremarkable. IMPRESSION: No acute intracranial pathology. WSN: [id number] Ordering Physician: Pepe Guido Dictated By: Raul Ascencio MD Dictated Date/Time: 01/28/23 11:20 a Reviewed By: Raul Ascencio MD Signed By: Raul Ascencio MD Signed Date/Time: 01/28/23 11:20 am Transcribed By: GILBERTO Transcribed Date/Time: 01/28/23 11:18 am Vital Signs Most recent to oldest [Reference Range]: 1 2 3 Height 165 cm (01/28/23 11:44 AM) 165 cm (01/28/23 8:35 AM) 165 cm (01/28/23 8:27 AM) Weight 82 kg (01/28/23 11:44 AM) 82 kg (01/28/23 8:35 AM) 82 kg (01/28/23 8:27 AM) Oxygen Saturation [94-100 %] 99 % (01/28/23 8:27 AM) Pulse Rate [55-90 bpm] 107 bpm *H* (01/28/23 8:27 AM) Body Mass Index [18.5-24.99 kg/m2] 30.12 kg/m2 *>HHI* (01/28/23 8:27 AM) Blood Pressure [90-138/55-84 mm Hg] 121/77mm Hg (01/28/23 8:27 AM) Respiratory Rate [16-30 br/min] 17 br/min (01/28/23 8:27 AM) Temperature [96.8-100.4 DegF] 97.3 DegF (01/28/23 8:27 AM) Mode of Delivery (Oxygen) Room air (01/28/23 8:27 AM) Blood pressure sites Arm, left (01/28/23 8:27 AM) Temperature Route Oral (01/28/23 8:27 AM) Dry Weight 82 kg (01/28/23 11:44 AM) 82 kg (01/28/23 8:35 AM) Weight Obtained Via Patient/family state d (01/28/23 8:35 AM) Dry Weight Obtained Via Patient/family s tated (01/28/23 8:35 AM) Social History Social History Type Response Tobacco Use: 4 or less cigar ettes(less than 1/4 pack)/day in last 30 days. Sex Note * Pepe Burdick: PERFORM Event Display: Patient Education Leaflets Authored Date: Migraine Headache ?? [id number] Migraine Headache A migraine headache is an often severe type of headache. It's different from other types of headaches in that symptoms other than pain occur with it. For instance, a classic migraine headache means visual symptoms (or aura) such as flashes of light, blind spots, or other vision changes, warn you a headache is coming on. Nausea and vomiting, lightheadedness, sensitivity to light or sound, and other visual disturbances are common migraine symptoms.??The pain may last from a few hours to several days. It's not clear why migraines occur, but certain factors called triggers can raise the risk of having a migraine attack.??A migraine may be triggered by emotional stress??or depression, or by hormone changes during the menstrual cycle. Other triggers include certain control pills, overuse of migraine medicines, alcohol or caffeine, and foods with tyramine, such as aged cheese and wine. Eyestrain, weather changes, missed meals,??or too little or too much sleep can also trigger a migraine. Home care Follow these tips when taking care of yourself at home: ??? Don???t drive yourself home if you weregiven pain medicine for your headache or are having visual symptoms. Instead, have someone else drive you home. Try to sleep when you get home. You should feel much better when you wake up. ??? Cold can help ease migraine symptoms. Put an ice pack wrapped in a thin towel on your forehead or at the base of your skull. Put heat on the back of your neck to help ease any neck spasm. ??? Drink only clear liquids or eat a light diet until your symptoms get better. This will help you prevent nausea and vomiting. ?? How to prevent migraines Pay attention to what seems to trigger your headache. Try to stay away from the triggers when you can. If you have headaches often, consider keeping a headache diary. In it, write down what you were doing, feeling, or eating in the hours before each headache. Show this to your healthcare provider to help find the cause of your headaches. If stress seems to be a trigger for your headaches, figure out what is causing stress in your life.Learn new ways to handle your stress. Ideas include regular exercise, biofeedback, self-hypnosis, yoga, and meditation. Talk with your provider to find out more information about managing stress. Many books and digital media are also available on this subject. Tyramine is a substance found in many foods. It can trigger a migraine in some people. These foods contain tyramine: ??? Chocolate ??? Yogurt ??? All cheeses, but especially aged cheeses ??? Smoked or pickled fish and meat, including torres, caviar, bologna, pepperoni, and salami ??? Liver ??? Avocados ??? Bananas??? Figs ??? Raisins ??? Red wine Try staying away from these foods for 1 to 2 months to see if you have fewer headaches. ?? How to treat future headaches ??? Take time out at the first sign of a headache, if possible. Find a quiet, dark, comfortable place to sit or lie down. Let yourself relax or sleep. ??? Put an ice pack wrapped in a thin towel on your forehead or on the area of greatest pain. A heating pad and massage may help if you are having a muscle spasm and tightness in your neck. ??? If you have been prescribed a medicine to stop a migraine headache, use this at the first warning sign of the headache for best results. First signs may be an aura or pain. ??? If you have been prescribed a medicine to prevent the headaches, it's important to take the medicine as directed. Many of these medicines may take a few weeks to start preventing headaches, so it's important to not give up on them right away. If you continue to have just as many headaches after taking these medicines for a while, talk with your healthcare provider to see if the dose needs to be changed or if a different medicine is advised. ??? If you need to take medicine often for your migraine, talk with your provider about other ways to prevent your headaches. ?? Follow-up care Follow up with your healthcare provider, or as advised. Talk with your provider if you have frequent headaches. They can figure out a treatment plan. Ask if you can have medicine to take at home the next time you get a bad headache. This may keep you from having to visit the emergency department inthe future. You may need to see a headache specialist (neurologist) if you continue to have headache s. ?? When to get medical care Call your healthcare provider right away??if any of these occur: ??? Your head pain gets worse, or doesn???t get better within 24 hours ??? You can???t keep liquids down (repeated vomiting) ??? Pain in your sinuses, ears, or throat ??? Fever of 100.4?? F (38?? C) or higher, or as advised by your provider ??? Stiff neck ??? Extreme drowsiness, confusion, or fainting ??? Dizziness, or dizziness with spinning sensation (vertigo) ??? Weakness or trouble feeling in an arm or leg, or on one side of your face ??? Trouble talking or seeing ?? Last Reviewed Date: 2021 ?? [id number] The [employer]. All rights reserved. This information is not intended as a substitute for professional medical care. Always follow your healthcare professional's instructions. ?? CT Head WO contrast * BHSPowerscribe , CIS S: TRANSCKELLY Ascencio MD, Raul Vogt: VERIFY Event Display: Result: Authored Date: CT Head/Brain W/O Contrast INDICATION: Hx of Present Illness: Acute on chronic VAZQUEZ, intermittent since August. I feel like myhead is cracked on the back. Denies fall or trauma injury to head. Pain is L posterior, L R sided, sharp - denies hx migraines, no other s s.; Reason: Headache(s); Clinical Question(s): Tumor Primary TECHNIQUE: Noncontrast head CT using axial technique and reconstructed in axial and coronal planes.Iterative reconstruction techniques are used to optimize dose and image quality. CTDIvol Head: 46.31 mGy, DLP Head: 862 mGy*cm. COMPARISON: CT head from 06/28/2018 FINDINGS: Automatic Pinsetter Mechanic view findings, lines and tubes: None. BRAIN AND EXTRA-AXIAL SPACES: No parenchymal hemorrhage, midline shift, or mass effect. Galan-white matter differentiation is wellpreserved. No acute infarct. Negative insular ribbon and hyperdense vessel signs. Ventricles, sulci, and basilar cisterns are normal. No white matter lesions. No subarachnoid hemorrhage. No subdural or epidural collection. CALVARIUM, SKULL BASE, AND SOFT TISSUES: No fractures or suspicious bony lesions. The paranasal sinuses and mastoid air cells are clear. Visualized orbits and globes are intact. The extracranial soft tissues are unremarkable. IMPRESSION: No acute intracranial pathology. WSN: [id number] Ordering Physician: Pepe Guido Dictated By: Raul Ascencio MD Dictated Date/Time: 01/28/23 11:20 a Reviewed By: Raul Ascencio MD Signed By: Raul Ascencio MD Signed Date/Time: 01/28/23 11:20 am Transcribed By: GILBERTO Transcribed Date/Time: 01/28/23 11:18 am Patient Care team information Care Team Personnel Name: Nancy Pena MA Position: [facility] RN Member Role: Primary Care Nurse Name: Laurie Campos MD Position: [facility] Physician - Behavioral Health Member Role: Lifetime Consulting Physician Address: Address: [address] [place] [address] Behavioral Health [place] [address]- Name: Latha Caputo NP Position: [facility] Associate Professional Member Role: PCP Address: Address: [address] [facility] [place] [address]- [place] Name: Pepe Burdick Position: [facility] Associate Professional Member Role: ED Physician Corporate Administrator Address: Address: [address] [place] [address]- Name: Latha Velasquez MD Position: [facility] ED Medicine MD Member Role: Admitting Physician Address: Address: [address] [place] [address] [place] [address]- [place] Name: Belinda De La Cruz RN Position: S ED RN W/OE and Tasks Care Team Related Persons Name: JYOTI MATTHEWS Address: [place] [address] Name: INOCENCIO CARMEN Address: [place] [address]
== END 2022-11-05 11:17 | disposition other institution (70) | DRG 885 ==
LOC: HO.ED 09-29 07:47 → HO.PM5 10-01 11:52
PROVIDERS: Physician Assistant Medical; Admitting Provider Clinical Nurse Specialist Psychiatric/Mental Health, Adult; Emergency Provider Student in an Organized Health Care Education/Training Program; PCP Internal Medicine; Visit Provider Clinical Nurse Specialist Psychiatric/Mental Health, Adult
DX: F25.0 Schizoaffective disorder, bipolar type (principal); R45.851 Suicidal ideations; F12.20 Cannabis dependence, uncomplicated; F14.10 Cocaine abuse, uncomplicated; J45.20 Mild intermittent asthma, uncomplicated; F17.210 Nicotine dependence, cigarettes, uncomplicated; Z20.822 Contact with and (suspected) exposure to COVID-19; Z71.6 Tobacco abuse counseling; Z88.8 Allergy status to other drugs, medicaments and biological substances; Z79.899 Other long term (current) drug therapy
CPT/HCPCS: 36415; 80053; 80061; 80159; 80307; 81001; 81025; 82077; 82248; 82607; 82746; 83036; 83690; 83735; 84146; 84439; 84443; 85025; 85048; 87635; 93005; 99285; S9485

== ENCOUNTER 2022-11-27 09:02 | Outpatient (AMB) | payer OTHER, MEDICARE, MEDICAID, SELFPAY ==
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
[2022-11-27 09:17] VITALS: BP 98/62; PULSE 103; O2SAT 99; BMI 28.0
== END 2022-11-27 11:28 | disposition home or self-care (01) ==
LOC: HO.HMGC 09:02
PROVIDERS: PCP Internal Medicine; Visit Provider Internal Medicine
DX: K59.09 Other constipation (principal); F25.0 Schizoaffective disorder, bipolar type
CPT/HCPCS: 99213

== ENCOUNTER → 2022-12-15 08:47 | Outpatient (BNVA) | payer OTHER, MEDICAID, SELFPAY | PROVIDERS: PCP Internal Medicine; Visit Provider Physician Assistant | DX: Z13.89 Encounter for screening for other disorder (principal) ==

== ENCOUNTER 2023-02-06 10:11 | Outpatient (REF) | payer OTHER, MEDICAID, SELFPAY ==
[2023-02-06 15:10] LABS: CT PCR NOT DETECTED (Not Detect.); NG PCR NOT DETECTED (Not Detect.)
[2023-02-07 10:01] LABS: BV Int Neg Control Negative (Negative); BV Int Pos Control Positive (Positive)
== END 2023-02-06 10:12 | disposition home or self-care (01) ==
LOC: HO.LNP 10:11
PROVIDERS: PCP Internal Medicine; Visit Provider Advanced Practice Midwife
DX: Z30.09 Encounter for other general counseling and advice on contraception (principal); Z20.2 Contact with and (suspected) exposure to infections with a predominantly sexual mode of transmission; Z62.810 Personal history of physical and sexual abuse in childhood
CPT/HCPCS: 0353U; 87480; 87510; 87660

== ENCOUNTER 2023-02-16 09:05 | Outpatient (REF) | payer OTHER, MEDICAID, SELFPAY ==
--- NOTE | ~2023-02-16 | MM_ITS ---
EXAMINATION: MM DIAGNOSTIC DIGITAL BREAST TOMOSYNTHESIS, BILATERAL US DIAGNOSTIC ULTRASOUND BREAST, RIGHT CLINICAL INFORMATION: 22-year-old with palpable area upper right breast, possible fibroadenoma. No known family history breast cancer. The lifetime risk of breast cancer based on the Tyrer-Cuzick Model is 13%. COMPARISON: None (current study represents initial baseline exam). TECHNIQUE: Ultrasound right breast is initially performed targeted to the upper breast using grayscale imaging and color Doppler without and with harmonics. Subsequently, digital breast tomosynthesis is performed in both the craniocaudal and mediolateral oblique views along with computer-aided detection (CAD). Synthesized 2D images are generated from the tomosynthesis. Additional left MLO view is provided. FINDINGS: The breasts are heterogeneously dense, which may obscure small masses (ACR BI-RADS breast composition Category c). Parenchymal pattern is unremarkable. There is no significant mass or architectural abnormality or abnormal calcifications. The axilla and skin contours are unremarkable. Ultrasound demonstrates no cystic or solid mass or architectural abnormality. No skin thickening or edema tracking in soft tissue planes. Results and additional management options are discussed with the patient and her mother at time of visit. MM/MM tomosynthesis diagnostic BI IMPRESSION: -No mammographic evidence of malignancy. -Unremarkable right breast ultrasound. ASSESSMENT: BI-RADS 1: Negative RECOMMENDATION: -Patient should be managed based on the clinical impression. If there remains a clinically palpable concern, further evaluation may be considered with surgical consult. -Screening mammography beginning age 40, or earlier as clinical risk factors warrant. This patient's information was entered into a reminder system with a target due date for their next mammogram.
== END 2023-02-16 09:06 | disposition home or self-care (01) ==
LOC: HO.MAMMO 09:05
PROVIDERS: PCP Internal Medicine; Visit Provider Advanced Practice Midwife
DX: N63.11 Unspecified lump in the right breast, upper outer quadrant (principal)
CPT/HCPCS: 76641; 76642; 77062; 77066

== ENCOUNTER 2023-03-20 10:48 | Outpatient (AMB) | payer OTHER, MEDICARE, MEDICAID, SELFPAY ==
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
[2023-03-20 11:30] VITALS: BP 96/68; PULSE 94; O2SAT 98; BMI 31.6
== END 2023-03-20 12:54 | disposition home or self-care (01) ==
PROVIDERS: Visit Provider Internal Medicine
DX: Z00.01 Encounter for general adult medical examination with abnormal findings (principal); F25.0 Schizoaffective disorder, bipolar type; Z68.31 Body mass index [BMI] 31.0-31.9, adult; R12 Heartburn; E66.9 Obesity, unspecified
CPT/HCPCS: 99395

== ENCOUNTER 2023-06-25 12:53 | Outpatient (AMB) | payer OTHER, MEDICAID, SELFPAY ==
[2023-06-25 13:00] VITALS: BP 98/70; PULSE 105; RESP 12; TEMP 36.6; O2SAT 99; BMI 34.0
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
== END 2023-06-25 15:42 | disposition home or self-care (01) ==
PROVIDERS: PCP Internal Medicine; Visit Provider Nurse Practitioner Family
DX: H66.92 Otitis media, unspecified, left ear (principal); J06.9 Acute upper respiratory infection, unspecified
CPT/HCPCS: 99212

== ENCOUNTER 2023-06-25 14:05 | Outpatient (REF) | payer OTHER, MEDICAID, SELFPAY ==
[2023-06-26 12:05] LABS: Influenza A PCR NEGATIVE (Negative); Influenza B PCR NEGATIVE (Negative); Resp Syncy Virus RNA Qual PCR NEGATIVE (Negative); SARS COV2 PCR INHOUSE NEGATIVE (Negative)
== END 2023-06-25 14:06 | disposition home or self-care (01) ==
LOC: HO.LAB 14:05
PROVIDERS: Visit Provider Nurse Practitioner Family
DX: Z11.52 Encounter for screening for COVID-19 (principal); J06.9 Acute upper respiratory infection, unspecified
CPT/HCPCS: 0241U

== ENCOUNTER 2023-09-03 12:20 | Outpatient (AMB) | payer OTHER, MEDICAID, SELFPAY ==
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
[2023-09-03 12:26] VITALS: BP 104/72; PULSE 100; BMI 34.3
== END 2023-09-03 12:51 | disposition home or self-care (01) ==
PROVIDERS: PCP Internal Medicine; Referring Provider Internal Medicine; Visit Provider Physician Assistant
DX: K59.9 Functional intestinal disorder, unspecified (principal)
CPT/HCPCS: 99213

== ENCOUNTER → 2023-09-03 12:20 | Outpatient (BNVA) | payer OTHER, MEDICAID, SELFPAY | PROVIDERS: PCP Internal Medicine; Visit Provider Physician Assistant ==

== ENCOUNTER 2024-03-23 08:02 | Outpatient (AMB) | payer OTHER, MEDICARE, MEDICAID, SELFPAY ==
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
[2024-03-23 08:08] VITALS: BP 102/66; PULSE 74; O2SAT 97; BMI 34.7
== END 2024-03-23 08:52 | disposition home or self-care (01) ==
PROVIDERS: PCP Internal Medicine; Visit Provider Internal Medicine
DX: Z00.00 Encounter for general adult medical examination without abnormal findings (principal); F25.0 Schizoaffective disorder, bipolar type; Z68.34 Body mass index [BMI] 34.0-34.9, adult; E66.9 Obesity, unspecified; Z11.3 Encounter for screening for infections with a predominantly sexual mode of transmission; R12 Heartburn; Z71.89 Other specified counseling
CPT/HCPCS: 99395

== ENCOUNTER 2024-06-15 10:18 | Outpatient (AMB) | payer OTHER, MEDICARE, MEDICAID, SELFPAY ==
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
[2024-06-15 10:32] VITALS: BP 120/78; PULSE 112; TEMP 36.8; O2SAT 98; BMI 35.0
== END 2024-06-15 11:36 | disposition home or self-care (01) ==
PROVIDERS: PCP Internal Medicine; Visit Provider Registered Nurse
DX: R05.2 Subacute cough (principal)

== ENCOUNTER → 2024-06-15 10:18 | Outpatient (BNVA) | payer OTHER, MEDICARE, MEDICAID, SELFPAY | PROVIDERS: PCP Internal Medicine; Visit Provider Registered Nurse ==

== ENCOUNTER 2024-08-25 09:33 | Outpatient (AMB) | payer OTHER, MEDICARE, MEDICAID, SELFPAY ==
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
[2024-08-25 10:31] VITALS: BP 116/74; PULSE 62; TEMP 36.4; O2SAT 99
== END 2024-08-25 10:52 | disposition home or self-care (01) ==
PROVIDERS: PCP Internal Medicine; Visit Provider Physician Assistant
DX: H66.002 Acute suppurative otitis media without spontaneous rupture of ear drum, left ear (principal); J18.9 Pneumonia, unspecified organism

== ENCOUNTER → 2024-08-25 09:33 | Outpatient (BNVA) | payer OTHER, MEDICARE, MEDICAID, SELFPAY | PROVIDERS: PCP Internal Medicine; Visit Provider Physician Assistant ==

== ENCOUNTER 2024-08-26 22:00 | Emergency (ER) | payer OTHER, MEDICAID, MEDICARE, SELFPAY ==
--- NOTE | ~2024-08-26 | XR_ITS ---
CLINICAL HISTORY: sob 2 view chest x-ray Comparison: None Findings: Patchy left basilar airspace disease. Otherwise clear lungs. No pleural effusion or pneumothorax. Heart size normal. IMPRESSION: 1. Patchy left basilar airspace disease is most likely infectious. Follow-up to resolution recommended. This document has been electronically signed by: Nadeem Arshad MD on 08/26/2024 22:36:38
[2024-08-26 22:08] VITALS: BP 114/77; PULSE 95; RESP 20; TEMP 36.4; O2SAT 93; BMI 35.7
[2024-08-26 22:56] LABS: Basophils Percent Auto 0.3 % (0-2); Hematocrit 39.5 % (37.0-47.0); Hemoglobin 13.6 g/dl (12.0-16.0); Imm Gran Abs Auto 0.02 X10*3/uL (0.00-0.03); Imm Gran Pct Auto 0.2 % (0.0-0.4); Lymphocytes Absolute Auto 2.9 X10*3/uL (1.2-4.9); Lymphocytes Percent Auto 30.4 % (20-40); MANUAL DIFF FLAG NO; Mean Corpuscular HGB Conc 34.4 g/dl (31.0-35.0); Mean Corpuscular Hemoglobin 30.6 pg (27.0-33.0); Mean Corpuscular Volume 88.8 fL (80.0-98.0); Monocytes Absolute Auto 0.4 X10*3/uL (0.1-1.2); Monocytes Percent Auto 3.7 % (2-11); Neutrophils Absolute Auto 6.1 x10*3/uL (2.0-8.3); Neutrophils Percent Auto 65.4 % (45-73); Platelet Count 280 X10*3/uL (160-400); Red Blood Count 4.45 X10*6/uL (4.20-5.50); Red Cell Distribution Width 12.4 % (11.0-16.0); White Blood Count 9.4 X10*3/uL (4.8-10.8)
[2024-08-26 23:11] LABS: Alanine Aminotransferase 31 U/L (0-31); Albumin Level 4.5 g/dL (3.5-5.0); Alkaline Phosphatase 65 U/L (39-117); Anion Gap 13 (12-20); Aspartate Amino Transferase 19 U/L (5-31); Bilirubin Total 0.3 mg/dL (0.0-1.0); Blood Urea Nitrogen 12 mg/dL (9-16); Calcium 8.9 mg/dL (8.4-10.2); Carbon Dioxide 21 mmol/L (22-29); Chloride 109 mmol/L (96-108); Creatinine Clr Calc Pharmacy 104.3; Estimated Glomerular Filt Rate > 60; Glucose Random 100 mg/dL (60-115); Potassium 3.8 mmol/L (3.3-5.1); Sodium 139 mmol/L (135-145); Total Protein 7.3 g/dL (6.5-8.0)
[2024-08-26 23:33] LABS: Influenza A PCR NEGATIVE (Negative); Influenza B PCR NEGATIVE (Negative); Resp Syncy Virus RNA Qual PCR NEGATIVE (Negative); SARS COV2 PCR INHOUSE NEGATIVE (Negative)
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
[2024-08-27] MEDS: Magnesium Sulfate/H2O 2 GM/50 ML PIGGYBACK IV (02:44)
[2024-08-27] MEDS: 0.9 % Sodium Chloride 1,000 ML 999 ML IV (02:44)
[2024-08-27] MEDS: methylPREDNISolone Sod Succ 125 MG/2 ML VIAL IVPUSH (02:45)
[2024-08-27] MEDS: cefTRIAXone sodium 1 GM VIAL IVPUSH (02:45)
[2024-08-27 03:05] VITALS: BP 122/70; PULSE 88; PULSE 94; RESP 14; RESP 18; TEMP 36.3; O2SAT 94
[2024-08-27] MEDS: Albuterol Sulfate 5 MG, Albuterol/Iprat 2.5/0.5MG 3 ML 3 ML INHALE (03:07)
--- NOTE | 2024-08-27 05:44 | PC.NURSE ---
Pt aox4. O2 sat between 92-95% RA with occasional dips to 87% RA. Audible wheezes in all lobes. Pt reports feeling dizzy/lightheaded when standing. made aware. New orders placed in OCT.
[2024-08-27 06:05] VITALS: PULSE 89; RESP 18; O2SAT 93
[2024-08-27] MEDS: Albuterol Sulfate (0.083%) 2.5 MG/3 ML VIAL.NEB 5 MG INHALE (06:05)
[2024-08-27 06:41] LABS: D Dimer High Sensitivity < 150 NG/ML
[2024-08-27] MEDS: guaiFEN/Codeine SF 200/20/10ML 10 ML LIQUID PO (07:14)
[2024-08-27 07:17] VITALS: BP 131/87; PULSE 109; RESP 16; TEMP 36.4; O2SAT 95
--- NOTE | 2024-08-27 07:21 | PC.NURSE ---
MD Yari aware of pt.'s elevated HR at time of discharge. Per CANDELARIA SCHAFER to d/c pt.
[2024-08-27 07:37] VITALS: BP 131/87; PULSE 109; RESP 16; TEMP 36.4; O2SAT 95
== END 2024-08-27 07:38 | disposition home or self-care (01) ==
PROVIDERS: Emergency Provider Internal Medicine; PCP Internal Medicine
DX: J18.8 Other pneumonia, unspecified organism (principal); J45.901 Unspecified asthma with (acute) exacerbation; Z03.818 Encounter for observation for suspected exposure to other biological agents ruled out; F17.210 Nicotine dependence, cigarettes, uncomplicated
CPT/HCPCS: 0241U; 36415; 71046; 80053; 85025; 85379; 94640; 96365; 96375; 99284; 99285; J0696; J2919; J3475

== ENCOUNTER → 2024-08-26 22:13 | Outpatient (BNV) | payer OTHER, MEDICARE, MEDICAID, SELFPAY | PROVIDERS: PCP Internal Medicine; Visit Provider Radiology Diagnostic Radiology | DX: R06.02 Shortness of breath (principal) | CPT/HCPCS: 71046 ==

== ENCOUNTER 2024-09-07 08:01 | Outpatient (AMB) | payer OTHER, MEDICAID, MEDICARE, SELFPAY ==
[2024-09-07 08:28] VITALS: BP 100/70; PULSE 109; O2SAT 96; BMI 35.4
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
== END 2024-09-07 09:04 | disposition home or self-care (01) ==
PROVIDERS: PCP Internal Medicine; Visit Provider Internal Medicine
DX: Z87.01 Personal history of pneumonia (recurrent) (principal)

== ENCOUNTER 2024-09-14 14:29 | Outpatient (AMB) | payer OTHER, MEDICARE, MEDICAID, SELFPAY ==
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
[2024-09-14 14:39] VITALS: BP 118/70; BMI 35.4
--- OUTSIDE RECORDS SUMMARY | 2024-09-14 16:55 | XMS_ITS | Clinical Summary ---
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 Name Role Phone Unavailable Primary Care Provider Unavailabl e Social History Tobacco Use Types Packs/Day Years Used Date Smoking Tobacco: Never Assessed Sex and Gender Information Value Date Recorded Sex Assigned at Not on file Gender Identity Not on file Sexual Orientation Not on file Plan of Treatment Health Maintenance Due Date Last Done Comments Gonorrhea/Chlamydia Screening 2000 HPV Vaccines (1 - 3-dose series) 2015 DTaP,Tdap,and Td Vaccines (1 - Tdap) 2019 Hepatitis B Vaccines (1 of 3 - 19+ 3-dose series) 2019 Cervical Cancer Screening: P ap Smear 2021 COVID-19 Vaccine ( - 2023-2 5 season) 2024 Influenza Vaccine (#1) 2024 HIB Vaccines Aged Out No longer eligi ble based on patient's age to complete this topic Hepatitis A Vaccines Aged Out No long er eligible based on patient's age to complete this topic IPV Vaccines Aged Out No longer eligi ble based on patient's age to complete this topic MMR Vaccines Aged Out No longer eligi ble based on patient's age to complete this topic Meningococcal ACWY Vaccine Aged Out N o longer eligible based on patient's age to complete this topic Pneumococcal Vaccine: Pediat rics (0 to 5 Years) and At-Risk Patients (6 to 64 Years) Aged Out No longer eligible b ased on patient's age to complete this topic RSV Immunization Patients Un eulogio 20 months Aged Out No longer eligible b ased on patient's age to complete this topic Varicella Vaccines Aged Out No longer eligible based on patient's age to complete this topic
== END 2024-09-14 16:00 | disposition home or self-care (01) ==
PROVIDERS: PCP Internal Medicine; Visit Provider Advanced Practice Midwife
DX: Z01.419 Encounter for gynecological examination (general) (routine) without abnormal findings (principal); Z62.810 Personal history of physical and sexual abuse in childhood; E66.9 Obesity, unspecified
CPT/HCPCS: 99395; 99459

== ENCOUNTER 2024-09-14 14:29 | Outpatient (REF) | payer OTHER, MEDICARE, MEDICAID, SELFPAY ==
--- OUTSIDE RECORDS SUMMARY | 2024-09-14 18:17 | XMS_ITS | Clinical Summary ---
Author Organization [facility] ity Address [address] [place] [address] Care Team Providers Care Tire Groover Name Role Phone Unavailable Primary Care Provider [...]
== END 2024-09-14 14:30 | disposition home or self-care (01) ==
LOC: HO.LNP 14:29
PROVIDERS: PCP Internal Medicine; Visit Provider Advanced Practice Midwife
DX: Z01.419 Encounter for gynecological examination (general) (routine) without abnormal findings (principal); E66.9 Obesity, unspecified; Z68.35 Body mass index [BMI] 35.0-35.9, adult; N92.6 Irregular menstruation, unspecified; F43.10 Post-traumatic stress disorder, unspecified; Z62.810 Personal history of physical and sexual abuse in childhood
CPT/HCPCS: 88175

== ENCOUNTER 2024-09-14 16:18 | Outpatient (REF) | payer OTHER, MEDICARE, MEDICAID, SELFPAY ==
[2024-09-15 21:40] LABS: Bacterial Vaginosis PCR NEGATIVE (Negative); Candida Group PCR NOT DETECTED (Not Detect); Candida glab krusei PCR NOT DETECTED (Not Detect); Trichomonas vaginalis PCR NOT DETECTED (Not Detect)
[2024-09-16 14:42] LABS: CT PCR NOT DETECTED (Not Detect.); NG PCR NOT DETECTED (Not Detect.)
== END 2024-09-14 16:19 | disposition home or self-care (01) ==
LOC: HO.LAB 16:18
PROVIDERS: Visit Provider Advanced Practice Midwife
DX: N89.8 Other specified noninflammatory disorders of vagina (principal); N92.6 Irregular menstruation, unspecified; F43.10 Post-traumatic stress disorder, unspecified; E66.9 Obesity, unspecified; Z62.810 Personal history of physical and sexual abuse in childhood; Z30.011 Encounter for initial prescription of contraceptive pills; Z20.2 Contact with and (suspected) exposure to infections with a predominantly sexual mode of transmission
CPT/HCPCS: 81515; 87491; 87591

== ENCOUNTER 2025-03-14 10:57 | Inpatient (IN) | payer OTHER, MEDICARE, MEDICAID, SELFPAY ==
[2025-03-14 11:09] VITALS: BP 148/80; PULSE 102; O2SAT 99
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
[2025-03-14 11:19] VITALS: BP 117/78; PULSE 98; RESP 16; TEMP 36.9; O2SAT 98; BMI 32.7
--- NOTE | 2025-03-14 11:33 | MHC.EDTECH ---
Pt chnaged over in family room. Security pulled away from the changeover. Pt was calm and cooperative the entire time. All of Pts clothes and personal items were removed from the Pt and documented in belongings list. Pt is resting in bed 8 shaffer.
[2025-03-14 11:48] LABS: MANUAL DIFF FLAG NO
[2025-03-14 11:50] LABS: Hematocrit 37.4 % (37.0-47.0); Hemoglobin 13.1 g/dl (12.0-16.0); Imm Gran Abs Auto 0.01 X10*3/uL (0.00-0.03); Imm Gran Pct Auto 0.2 % (0.0-0.4); Lymphocytes Absolute Auto 1.4 X10*3/uL (1.2-4.9); Mean Corpuscular HGB Conc 35.0 g/dl (31.0-35.0); Mean Corpuscular Hemoglobin 31.2 pg (27.0-33.0); Mean Corpuscular Volume 89.0 fL (80.0-98.0); NRBC Abs Auto 0.000 X10*3/uL (0.0-0.012); NRBC Pct Auto 0.0 /100WBC (0.0-0.2); Platelet Count 213 X10*3/uL (160-400); Red Blood Count 4.20 X10*6/uL (4.20-5.50); White Blood Count 5.4 X10*3/uL (4.8-10.8)
[2025-03-14 11:51] LABS: Appearance Urine Clear; Glucose Urine UA Negative (Negative); PH 5.5 (5.0-9.0); Specific Gravity - Urine 1.020 (1.005-1.025); UMIC TRIGGER UACC YES; UPreg QC Valid YES
[2025-03-14 12:01] LABS: Cannabinoid Screen Urine POSITIVE (Not Detect)
--- NOTE | 2025-03-14 12:06 | PC.NURSE ---
Per charge nurse Valarie mother here, reports pt has been decompensating at home with possible substance abuse and ?cocaine. Med list provided and blister pack with seven intact blisters noted placed with other belongings in [facility] port. No controlled meds noted. Pt takes Clozaril, will work on med rec. Mother request inpt LOC for pt and then respite thereafter, Carol FRANCOIS made aware.
[2025-03-14 12:08] LABS: Acetaminophen LAB < 3 mcg/mL (<30); Alanine Aminotransferase 38 U/L (0-31); Albumin Level 4.8 g/dL (3.5-5.0); Alkaline Phosphatase 53 U/L (39-117); Anion Gap 11 (12-20); Aspartate Amino Transferase 23 U/L (5-31); Blood Urea Nitrogen 8 mg/dL (9-16); Calcium 9.1 mg/dL (8.4-10.2); Carbon Dioxide 24 mmol/L (22-29); Chloride 107 mmol/L (96-108); Creatinine Clr Calc Pharmacy 113.9; Estimated Glomerular Filt Rate > 60; Magnesium 1.9 mg/dL (1.6-2.6); Potassium 3.9 mmol/L (3.3-5.1); Salicylate < 5.0 mg/dL (15-30); Sodium 138 mmol/L (135-145); Total Protein 7.3 g/dL (6.5-8.0)
--- NOTE | 2025-03-14 12:28 | PC.NURSE ---
Med list sent to pharmacy however pt does admit to inconsistent med compliance. Permission to speak to mother regarding med compliance and last dose information, Petr from pharmacy aware and will complete when able. Pt at this time is calm and cooperative. Able to make needs known
--- NOTE | 2025-03-14 12:48 | PHA.MEDREC ---
Addendum entered by Jules Johnston RPh 03/14/25 13:04: Reviewed by [facility] Original Note: Pharmacy Consult ? Medication Reconciliation Pharmacy has completed the medication reconciliation. spoke to patient mother Samina over the phone to confirm med list. Patient gave a medbox list to nurse. utilized list to confirm med list. Mother states patient is no longer taking Calcium poly 625 mg, Vitamin D3 1,000 mg, Viorele tablets, and Hydroxyzine HCl 25 mg. Mother confirmed Clozapine 150 mg (1 & 1/2 of 100 mg) bedtime combined with Clozapine 200 mg bedtime and Clozapine 25 mg for a total dose = 375 mg daily, last dose was Thursday03/12/25, Lamotrigine 100 mg with Lamotrigine 25 mg daily for a total dose = 125mg daily. Patient had all her morning medications today.
--- OUTSIDE RECORDS SUMMARY | 2025-03-14 13:16 | XMS_ITS | Clinical Summary ---
Author Organization [facility] Address [address] [place] [id number] Phone Care Team Providers Care Specialty Therapist Name Role Phone Brianna Dunn MD Primary Care Provider Allergies Active Allergy Reactions Criticality Noted Date Comments Aripiprazole Anaphylaxis,Other (S ee Comments),Swelling High 06/10/2023 Cariprazine Other (See Comments) 06/10/2023 Paliperidone Dystonia High 06/10/2023 Risperidone Weight Gain Low 06/10/2023 Medications albuterol 90 mcg/actuation inhaler Active benztropine (COGENTIN) 1 MG tablet 05/27/2023 Active cloZAPine (CLOZARIL) 200 MG tablet 05/26/2023 Active haloperidoL (HALDOL) 2 MG tablet Active hydrOXYzine (ATARAX) 25 MG tablet Active lamoTRIgine (LAMICTAL) 25 MG IMMEDIATE release tablet Active lurasidone (LATUDA) 60 mg tablet Active OLANZapine (ZYPREXA) 5 MG tablet 05/11/2023 Active omeprazole (PRILOSEC) 40 MG capsule 06/08/2023 Active sertraline (ZOLOFT) 50 MG tablet Active topiramate (TOPAMAX) 25 MG tablet 04/15/2023 Active traZODone (DESYREL) 150 MG tablet Active Active Problems No known active problems Immunizations Immunization Administration Dates Next Due COVID-19 (Pre-06/15) Pfizer Vaccine, mRNA, PF ,01/08/2021 Social History Tobacco Use Types Packs/Day Years Used Date Smoking Tobacco: Never Assessed Education Answer Date Recorded Are you interested in more education? Not on nolvia e 12/20/2022 Are you concerned about learning? Not on file 12/20/2022 No 12/20/2022 No 12/20/2022 Digital Access Answer Date Recorded No 01/18/2023 No 01/18/2023 Reliable internet access at home? Not on file 01/18/2023 Device with a working camera? Not on file Comments Unknown Sex and Gender Information Value Date Recorded Sex Assigned at Female 08/20/2021 10:56 AM EST Legal Sex Female 11:41 AM EST Gender Identity Female 08/20/2021 10:56 AM EST Sexual Orientation Not on file Last Filed Vital Signs Vital Sign Reading Time Taken Comments Blood Pressure 116/68 06/10/2023 10:20 AM EDT Pulse 111 06/10/2023 10:20 AM EDT Temperature 36.9 C (98.5 F) 06/10/2023 10:20 AM EDT Respiratory Rate 16 06/10/2023 10:20 AM EDT Oxygen Saturation 98% 06/10/2023 10:20 AM EDT Inhaled Oxygen Concentration - - Weight 90.7 kg (200 lb) 06/10/2023 10:20 AM EDT Height 162.6 cm (5' 4 ) 06/10/2023 10:20 AM EDT Body Mass Index 34.33 06/10/2023 10:20 AM EDT Plan of Treatment Health Maintenance Due Date Last Done Comments ABSOLUTE NEUTROPHIL COUNT (ANC) 2000 Adult Td,Tdap Booster 2000 DEPRESSION SCREENING 2012 SMOKING Hx and SMOKELESS TOBACCO SCREENING 2013 HPV VACCINES (1 - 3-dose series) 2015 CHLAMYDIA SCREENING 2016 HEPATITIS C SCREENING 2018 HIV ONE-TIME SCREENING (18-6 5 YEARS) 2018 PAP SMEAR 2021 COVID-19 VACCINE (2023-2 5 season) 2024 02/19/2021, 01/08/2021 HEPATITIS A VACCINES Aged Out No long er eligible based on patient's age to complete this topic HIB VACCINES Aged Out No longer eligi ble based on patient's age to complete this topic MENINGOCOCCAL VACCINES (ACWY) Aged Out No longer eligible based on patient's age to complete this topic MENINGOCOCCAL VACCINES (B) Aged Out N o longer eligible based on patient's age to complete this topic PNEUMOCOCCAL VACCINES (0-49 years) Aged Out No longer eligible b ased on patient's age to complete this topic Medical Devices Not on file [facility] [address] [address] MEDICARE PART A & B [facility] MEDICARE PART A & B [facility] POS [facility] [address] [address] [place] [id number] [facility] [address] MEDICARE PART A & B [facility] MEDICARE PART A & B [facility] [address] [place] [address]O [facility] MEDICARE PART A & B [facility] MEDICARE PART A & B [facility] POS Care Teams Specialty Therapist Relationship Specialty Start Date End Date Brianna Dunn MD [facility] [place] [id number] PCP - General Internal Medicine 06/10/23 Additional Source Comments The information contained in this document represents components of the legal health record. It is not the complete legal health record.[facility]
--- OUTSIDE RECORDS SUMMARY | 2025-03-14 13:16 | XMS_ITS | Clinical Summary ---
Author Organization [facility] Address [address] [place] [address] Care Team Providers Care Link Trainer Teacher Name Role Phone Unavailable Primary Care Provider Unavailabl e Social History Tobacco Use Types Packs/Day Years Used Date Smoking Tobacco: Never Assessed Comments Unknown Sex and Gender Information Value Date Recorded Sex Assigned at Not on file Legal Sex Female 11:15 AM EST Gender Identity Not on file Sexual Orientation Not on file Plan of Treatment Health Maintenance Due Date Last Done Comments Gonorrhea/Chlamydia Screening 2000 HPV Vaccines (1 - 3-dose series) 2015 DTaP,Tdap,and Td Vaccines (1 - Tdap) 2019 Hepatitis B Vaccines (1 of 3 - 19+ 3-dose series) 2019 Cervical Cancer Screening: P ap Smear 2021 COVID-19 Vaccine ( - 2023-2 5 season) 2024 Depression Screening 08/24/2024 Influenza Vaccine (#1) 2025 HIB Vaccines Aged Out No longer eligi [...] patient's age to complete this topic Meningococcal B Vaccine Aged Out No l onger eligible based on patient's age to complete this topic Pneumococcal Vaccine: Pediat rics (0 to 5 Years) and At-Risk Patients (6 to 49 Years) Aged Out No longer eligible b ased on patient's age to complete this topic RSV Immunization Patients Un eulogio 20 months Aged Out No longer eligible b ased on patient's age to complete this topic Varicella Vaccines Aged Out No longer eligible based on patient's age to complete this topic
--- NOTE | 2025-03-14 13:48 | PC.NURSE ---
[facility]
--- NOTE | 2025-03-14 13:54 | MHC.CARE ---
Pt meets the criteria for IPLOC. Section 12a in chart. ED provider in agreement.
[2025-03-14 14:26] VITALS: RESP 14; TEMP 36.8
--- NOTE | 2025-03-14 14:50 | PC.NURSE ---
on arrival to the pod pt pacing, anxious, figity and unable to sit still. she is not redirectable. prn zyprexa given per oct.
[2025-03-14 20:18] VITALS: BP 106/73; PULSE 90; RESP 16; TEMP 37.1; O2SAT 98
[2025-03-15 06:19] VITALS: RESP 16
--- NOTE | 2025-03-15 06:59 | PC.NURSE ---
Assumed care of patient at 0645, patient appears to be in no apparent distress this am, resting in bed, respirations even and unlabored. Continue plan of care for IPLOC
--- NOTE | 2025-03-15 15:15 | PC.NURSE ---
Report from YO Pruitt. Patient out to desk to ask for coloring materials and nicotine gum. Will medicate when allowed, sitter in place for safety
[2025-03-15 17:56] VITALS: BMI 33.0
[2025-03-15 17:58] VITALS: BP 132/91; PULSE 111; O2SAT 98
--- NOTE | 2025-03-15 19:08 | PC.ADMIT ---
Desi is a 24yr old female with PTSD & schizophrenia. She?s admitted to today, from [facility]. She was brought in by ambulance. [facility] worker called 911 after her mother found a twisted tea in her vehicle and became concerned about Desi?s alcohol consumption & medication compliance. Desi is A&Ox4, calm & cooperative with the admission process. She currently has a therapist & psychiatrist in addition to [facility] & community service providers. Desi?s mother reports that she has been ?manic? and slowly decompensating over the last two months.? Her mother states that she hasn?t been sleeping, responding to internal stimuli, acting erratic, engaging in ?risky behaviors? and experiencing CAH to kill herself. Desi DENIES those reports, denies SI/HI/AVH. She states her mother found a twisted tea, then said all these things & ?people just listen to her?. ?I?m diagnosed with schizophrenia & my mother is my guardian.? Desi endorses past trauma but declines to discuss. Her tox screen is positive for cocaine & marijuana but she only endorses marijuana use. Desi has signed in on a CV. Skin check is unremarkable. She was oriented to the unit & placed on 15min safety checks.?
[2025-03-15 19:54] VITALS: BP 115/90; PULSE 130; RESP 18; O2SAT 97
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
[2025-03-16 08:40] LABS: Alanine Aminotransferase 36 U/L (0-31); Albumin Level 4.8 g/dL (3.5-5.0); Alkaline Phosphatase 55 U/L (39-117); Anion Gap 14 (12-20); Aspartate Amino Transferase 22 U/L (5-31); Blood Urea Nitrogen 10 mg/dL (9-16); Calcium 9.3 mg/dL (8.4-10.2); Carbon Dioxide 22 mmol/L (22-29); Chloride 106 mmol/L (96-108); Cholesterol 212 mg/dL (<200); Creatinine Clr Calc Pharmacy 106.4; Estimated Glomerular Filt Rate > 60; HDL Cholesterol 32 mg/dL (>40); Hemoglobin A1C 108.9668 umol/L; Potassium 4.0 mmol/L (3.3-5.1); Sodium 138 mmol/L (135-145); Total Hemoglobin (HGBA1C) 3478.4101 umol/L; Total Protein 6.9 g/dL (6.5-8.0); Triglycerides 174 mg/dL (<150)
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
[2025-03-16 09:57] VITALS: BP 124/74; PULSE 79; RESP 16; TEMP 36.3; O2SAT 97
[2025-03-16 20:00] VITALS: BP 132/85; PULSE 121; TEMP 36.3; O2SAT 98
[2025-03-17 10:38] LABS: Clozapine (Clozaril) 408 mcg/L
--- NOTE | 2025-03-17 15:59 | HO.PSYCHPN ---
Subjective Subjective Date of Service: 03/17/25 Reason For Visit: schizophrenia Subjective Notes: Conditional Voluntary Healthcare Proxy: No Guardianship: No Medical Problems Affecting Mental Status: No Interim History: Restarted on regime, denies SE. Discussed precipitants to admission. Sister is getting on 03/24. Pt is maid of honor and hoping she can make the wedding which will be our goal. She also wants to return to addiction rehab and team is working on this with her. Discussed cutting back on meds over the past 6 months and rationale. Medication Compliance: Yes Side effects from medications: No Attending Groups: Yes Review of Systems Acute medical concerns: No Medical Review of Systems: unchanged Review of Systems Review of Systems Denies Mental Status Exam Mental Status Exam Patient Appearance: Appropriate Patient Orientation: Person, Place, Time and Situation Level of Consciousness: Alert Patient Behavior: Talkative Mood Description: Appropriate and Expansive Affect Description: Appropriate Patient Cognition Impaired: No Ability to Follow Directions: Good Speech Pattern: Spontaneous Speech Memory Description: Intact Hallucinations: Auditory Delusions: Not Present Thought Process: Intact and Distracted Thought Content: positive for Intact and positive for Circumstantial Judgement: Fair Diagnostics Vital Signs (24Hr): Vital Signs - 24 hr 03/16/25 20:00 Temperature 97.3 F Pulse Rate 121 H Blood Pressure 132/85 Pulse Oximetry 98 Oxygen Delivery Method Room Air BMI result Body Mass Index 33.0 Labs 03/14/25 11:43 03/16/25 07:43 Labs: Laboratory Results - last 48 hr 03/14/25 03/16/25 14:15 07:43 Sodium 138 Potassium 4.0 Chloride 106 Carbon Dioxide 22 Anion Gap 14 BUN 10 Creatinine 0.87 Estim Creat Clear Calc 106.4 Estimated GFR > 60 Random Glucose 97 Estimat Average Glucose 97 Hemoglobin A1c % 5.0 Calcium 9.3 Total Bilirubin 0.7 AST 22 ALT 36 H Alkaline Phosphatase 55 Total Protein 6.9 Albumin 4.8 Triglycerides 174 H Cholesterol 212 H LDL Cholesterol, Calc 146 H HDL Cholesterol 32 L TSH 1.09 Clozapine 408 Norclozapine 238 Medications Medications Current Medications Acetaminophen (Acetaminophen 325 Mg Tablet) 650 mg PO Q6H PRN PRN Reason: Headache/Pain, Scale 1-10 Al Hydroxide/Mg Hydroxide (Magnesium Hydrox/Alum Hydrox 30 Ml Oral.Susp) 30 ml PO Q6H PRN PRN Reason: Heartburn/Nausea Benztropine Mesylate (Benztropine Mesylate 1 Mg Tablet) 1 mg PO TID [facility] Last Admin: 03/17/25 14:33 Dose: 1 mg Clozapine (Clozapine 25 Mg Tablet) 150 mg PO BEDTIME DUSTIN Last Admin: 03/16/25 20:32 Dose: 150 mg Clozapine (Clozapine 25 Mg Tablet) 25 mg PO BEDTIME [facility] Last Admin: 03/16/25 20:31 Dose: 25 mg Clozapine (Clozapine 100 Mg Tablet) 200 mg PO BEDTIME [facility] Last Admin: 03/16/25 20:31 Dose: 200 mg Docusate Sodium (Docusate Sodium 100 Mg/10 Ml Liquid) 250 mg PO DAILY [facility] Last Admin: 03/17/25 10:02 Dose: Not Given Hydroxyzine HCl (Hydroxyzine Hcl 25 Mg Tablet) 25 mg PO Q6H PRN PRN Reason: mild anxiety Last Admin: 03/16/25 12:09 Dose: 25 mg Lamotrigine (Lamotrigine 25 Mg Tablet) 25 mg PO DAILY [facility] Last Admin: 03/17/25 10:02 Dose: 25 mg Lamotrigine (Lamotrigine 100 Mg Tablet) 100 mg PO DAILY [facility] Last Admin: 03/17/25 10:03 Dose: 100 mg Magnesium Hydroxide (Milk Of Magnesia 30 Ml Oral.Susp) 30 ml PO DAILY PRN PRN Reason: Constipation Multivitamins/Vitamin C (Multivitamin Tablet) 1 tab PO DAILY [facility] Last Admin: 03/17/25 10:03 Dose: 1 tab Nicotine (Nicotine 21 Mg Patch.Td24) 21 mg TRANSDERMA DAILY PRN PRN Reason: smoking cessation Nicotine Polacrilex (Nicotine Polacrilex 2 Mg Gum) 4 mg BUCCAL Q2H PRN PRN Reason: Nicotine Cravings Last Admin: 03/17/25 14:34 Dose: 4 mg Olanzapine (Olanzapine 5 Mg Tablet) 5 mg PO TID PRN PRN Reason: agitation Last Admin: 03/17/25 14:33 Dose: 5 mg Omeprazole (Omeprazole 40 Mg Capsule.Dr) 40 mg PO DAILY@0630 [facility] Last Admin: 03/17/25 06:13 Dose: 40 mg Sertraline HCl (Sertraline Hcl 25 Mg Tablet) 75 mg PO DAILY [facility] Last Admin: 03/17/25 10:03 Dose: 75 mg Allergies Allergies Allergy/AdvReac Type Severity Reaction Status Date / Time aripiprazole (Abilify) Allergy Unknown tongue Verified 03/14/25 11:25 swells and gain weight risperidone (From Risperdal) AdvReac Unknown gain Verified 03/14/25 11:25 weight, and slurred speech cariprazine (From Vraylar) AdvReac Verified 03/14/25 11:25 haloperidol (From Haldol) AdvReac DYSTONIA Verified 03/14/25 11:25 paliperidone AdvReac dystonia Verified 03/14/25 11:25 trazodone AdvReac DYSTONIA Verified 03/14/25 11:25 Assessment & Plan Assessment & Plan (1) Schizophrenia: Status: Acute Code(s): F20.9 - Schizophrenia, unspecified (2) PTSD (post-traumatic stress disorder): Status: Acute Code(s): F43.10 - Post-traumatic stress disorder, unspecified (3) Alcohol use: Status: Acute Code(s): F10.90 - Alcohol use, unspecified, uncomplicated (4) Cocaine use: Status: Acute Code(s): F14.90 - Cocaine use, unspecified, uncomplicated Plan HPI: Patient is a 24-year-old female with history of schizophrenia, PTSD, alcohol and cocaine use who presents after her mother called crisis, reporting patient's erratic behaviors and being off her medication. Patient agrees that she has not been consistent with her medications but says she consistently takes her nighttime medication clozapine and over the past couple months, only misses taking them once or twice a week; the past week or 2, she may have been less consistent. Regarding daytime medications, patient reports she is less saying she is not sure if she needs them and asked what they were. Patient reports that she continues to hear the voice say we want to kill you... However she says this has been consistent for years and has never gone away despite medications; she says the medications help maybe stabilized but do not take the voice away. She denies any other voices. Regarding alcohol use she says only with friends a few times a week and never to excess; she says cocaine is just once in awhile if offered to her and less than once a month. She is irritated with her mom for calling crisis on her in a clandestine way and wants to move out back to a [facility] house. She denies that she has been manic and says she overall sleeps well and is only missed a few nights sleep in the past couple weeks. Patient says she wants to be on her medications and be stable and is very hopeful she will be able to attend her sister's wedding in a week. She denies any SI or HI at all Formulation/clinical reasoning: Patient has history of psychotic illness and more less stabilized on Clozaril and Lamictal; seems that once she moved out of the [facility] house and back home she started to dabble with alcohol and cocaine; there is some discrepancy between her report and her mother's report about her recent behaviors and medication adherence. Currently patient is organized in behavior and speech and denies any additional symptoms other than her baseline AH. Regarding substance abuse, patient says that the reason that she sometimes uses alcohol or cocaine to deal with the upsetting experience of AH Discussed medications, risks/side effects of Lamictal and antipsychotics. Will restart/continue clozapine 375 mg q.h.s.; it seems that patient has been taking this frequently enough enough that can resume home dose; she was already restarted on this dose this while in the ED and denies any medication side effects and BP is WNL. Patient is unclear about how consistently she has been taking Lamictal 125 mg daily. This was also restarted in the ED; will continue it and monitor closely. -patient is the maid of honor in her sister's wedding which is next week; hopefully patient can demonstrate consistent stability and be able to discharge and time for this event 03/17: Continue regime Metformin 500 mg daily Plan: CV Q 15 minute checks Clozapine 375 mg q.h.s. Lamictal 125 mg daily Benztropine 1 mg t.i.d. Zoloft 75 mg daily DC CIWA; does not seem to have been drinking enough for withdrawal and has not been scoring on CIWA Elevated cholesterol; will consider treatment Will also consider metformin to address metabolic syndrome Reason for continued inpatient stay Substantial Risk for: rapid decompensation Time Spent With Patient Time: Total time managing care of this patient today ____ minutes.
[2025-03-17 19:42] VITALS: BP 133/76; PULSE 112; TEMP 36.8; O2SAT 98
[2025-03-18 08:00] VITALS: PULSE 81; RESP 18; TEMP 36.8; O2SAT 98
--- NOTE | 2025-03-18 08:50 | MHC.RECOVRN ---
Met with pt in f/u. Reviewed written materials on marijuana cessation, treatment options, IOPs and MA. Discussed coping skills and recovery supports. Pt stated her sister is a big support and is getting this week. Pt aware that smoking marijuana can make psychiatric symptoms worse. Pt very motivate to fully abstain. Encouraged to review materials further and reach out to the ACS team if any questions or concerns arise.
--- NOTE | 2025-03-18 16:53 | P.PNPSI_ITS ---
Subjective Subjective Date of Service: 03/18/25 Reason For Visit: schizophrenia Interim History: Patient seen and discussed with RN. Gives a thumbs up when asked how she is feeling. She appeared more composed. She then asked for a head CT scan because the voices tell her there is something wrong with her brain. Restarted on Clozaril, denies SE. Review of Systems Review of Systems Denies Yes all other systems are reviewed and are negative Mental Status Exam Mental Status Exam Narrative: Pt is alert and oriented; behavior is cooperative, friendly and calm; patient is not in distress; dressed in casual attire with adequate hygiene and grooming; mood is described as good and affect congruent; eye contact appropriate; Speech is normal rate, volume and prosody and not pressured; no psychomotor agitation/retardation present; thought process is with some mild thought blocking but otherwise organized and goal directed; Thought content is on tx; patient not clear on recent details regarding medication; no delusional ideations expressed; denies any SI/HI. Chronic AH that says the same thing; some internal preoccupation. Patients insight and judgment impaired Patient Appearance: Appropriate Patient Orientation: Person, Place, Time and Situation Level of Consciousness: Alert Patient Behavior: Talkative Mood Description: Appropriate and Expansive Affect Description: Appropriate Patient Cognition Impaired: No Ability to Follow Directions: Good Speech Pattern: Spontaneous Speech Memory Description: Intact Diagnostics Vital Signs (24Hr): Vital Signs - 24 hr 03/17/25 19:42 03/18/25 08:00 Temperature 98.2 F 98.2 F Pulse Rate 112 H 81 Respiratory Rate 18 Blood Pressure 133/76 Pulse Oximetry 98 98 Oxygen Delivery Method Room Air Room Air BMI result Body Mass Index 33.0 Labs 03/14/25 11:43 03/16/25 07:43 Labs: Laboratory Results - last 48 hr 03/14/25 14:15 Clozapine 408 Norclozapine 238 Medications Medications Current Medications Acetaminophen (Acetaminophen 325 Mg Tablet) 650 mg PO Q6H PRN PRN Reason: Headache/Pain, Scale 1-10 Last Admin: 03/18/25 11:45 Dose: 650 mg Al Hydroxide/Mg Hydroxide (Magnesium Hydrox/Alum Hydrox 30 Ml Oral.Susp) 30 ml PO Q6H PRN PRN Reason: Heartburn/Nausea Benztropine Mesylate (Benztropine Mesylate 1 Mg Tablet) 1 mg PO TID DUSTIN Last Admin: 03/18/25 15:07 Dose: 1 mg Clozapine (Clozapine 25 Mg Tablet) 150 mg PO BEDTIME [facility] Last Admin: 03/17/25 20:39 Dose: 150 mg Clozapine (Clozapine 25 Mg Tablet) 25 mg PO BEDTIME [facility] Last Admin: 03/17/25 20:40 Dose: 25 mg Clozapine (Clozapine 100 Mg Tablet) 200 mg PO BEDTIME [facility] Last Admin: 03/17/25 20:40 Dose: 200 mg Docusate Sodium (Docusate Sodium 100 Mg Capsule) 100 mg PO BID [facility] Hydroxyzine HCl (Hydroxyzine Hcl 25 Mg Tablet) 25 mg PO Q6H PRN PRN Reason: mild anxiety Last Admin: 03/16/25 12:09 Dose: 25 mg Lamotrigine (Lamotrigine 25 Mg Tablet) 25 mg PO DAILY [facility] Last Admin: 03/18/25 09:10 Dose: 25 mg Lamotrigine (Lamotrigine 100 Mg Tablet) 100 mg PO DAILY [facility] Last Admin: 03/18/25 09:10 Dose: 100 mg Magnesium Hydroxide (Milk Of Magnesia 30 Ml Oral.Susp) 30 ml PO DAILY PRN PRN Reason: Constipation Metformin HCl (Metformin Hcl 500 Mg Tablet) 500 mg PO DAILY [facility] Last Admin: 03/18/25 09:10 Dose: 500 mg Multivitamins/Vitamin C (Multivitamin Tablet) 1 tab PO DAILY [facility] Last Admin: 03/18/25 09:10 Dose: 1 tab Nicotine (Nicotine 21 Mg Patch.Td24) 21 mg TRANSDERMA DAILY PRN PRN Reason: smoking cessation Nicotine Polacrilex (Nicotine Polacrilex 2 Mg Gum) 4 mg BUCCAL Q2H PRN PRN Reason: Nicotine Cravings Last Admin: 03/18/25 15:07 Dose: 4 mg Olanzapine (Olanzapine 5 Mg Tablet) 5 mg PO TID PRN PRN Reason: agitation Last Admin: 03/18/25 12:33 Dose: 5 mg Omeprazole (Omeprazole 40 Mg Capsule.Dr) 40 mg PO DAILY@0630 [facility] Last Admin: 03/18/25 06:36 Dose: 40 mg Sertraline HCl (Sertraline Hcl 25 Mg Tablet) 75 mg PO DAILY [facility] Last Admin: 03/18/25 09:09 Dose: 75 mg Allergies Allergies Allergy/AdvReac Type Severity Reaction Status Date / Time aripiprazole (Abilify) Allergy Unknown tongue Verified 03/14/25 11:25 swells and gain weight risperidone (From Risperdal) AdvReac Unknown gain Verified 03/14/25 11:25 weight, and slurred speech cariprazine (From Vraylar) AdvReac Verified 03/14/25 11:25 haloperidol (From Haldol) AdvReac DYSTONIA Verified 03/14/25 11:25 paliperidone AdvReac dystonia Verified 03/14/25 11:25 trazodone AdvReac DYSTONIA Verified 03/14/25 11:25 Assessment & Plan Assessment & Plan (1) Schizophrenia: Status: Acute Code(s): F20.9 - Schizophrenia, unspecified (2) PTSD (post-traumatic stress disorder): Status: Acute Code(s): F43.10 - Post-traumatic stress disorder, unspecified (3) Alcohol use: Status: Acute Code(s): F10.90 - Alcohol use, unspecified, uncomplicated (4) Cocaine use: Status: Acute Code(s): F14.90 - Cocaine use, unspecified, uncomplicated Plan HPI: Patient is a 24-year-old female with history of schizophrenia, PTSD, alcohol and cocaine use who presents after her mother called crisis, reporting patient's erratic behaviors and being off her medication. Patient agrees that she has not been consistent with her medications but says she consistently takes her nighttime medication clozapine and over the past couple months, only misses taking them once or twice a week; the past week or 2, she may have been less consistent. Regarding daytime medications, patient reports she is less saying she is not sure if she needs them and asked what they were. Patient reports that she continues to hear the voice say we want to kill you... However she says this has been consistent for years and has never gone away despite medications; she says the medications help maybe stabilized but do not take the voice away. She denies any other voices. Regarding alcohol use she says only with friends a few times a week and never to excess; she says cocaine is just once in awhile if offered to her and less than once a month. She is irritated with her mom for calling crisis on her in a clandestine way and wants to move out back to a retirement house. She denies that she has been manic and says she overall sleeps well and is only missed a few nights sleep in the past couple weeks. Patient says she wants to be on her medications and be stable and is very hopeful she will be able to attend her sister's wedding in a week. She denies any SI or HI at all Formulation/clinical reasoning: Patient has history of psychotic illness and more less stabilized on Clozaril and Lamictal; seems that once she moved out of the retirement house and back home she started to dabble with alcohol and cocaine; there is some discrepancy between her report and her mother's report about her recent behaviors and medication adherence. Currently patient is organized in behavior and speech and denies any additional symptoms other than her baseline AH. Regarding substance abuse, patient says that the reason that she sometimes uses alcohol or cocaine to deal with the upsetting experience of AH Discussed medications, risks/side effects of Lamictal and antipsychotics. Will restart/continue clozapine 375 mg q.h.s.; it seems that patient has been taking this frequently enough enough that can resume home dose; she was already restarted on this dose this while in the ED and denies any medication side effects and BP is WNL. Patient is unclear about how consistently she has been taking Lamictal 125 mg daily. This was also restarted in the ED; will continue it and monitor closely. -patient is the maid of honor in her sister's wedding which is next week; hopefully patient can demonstrate consistent stability and be able to discharge and time for this event 03/17: Continue regime Metformin 500 mg daily 03/18: Continue current management and treatment plan. Plan: CV Q 15 minute checks Clozapine 375 mg q.h.s. Lamictal 125 mg daily Benztropine 1 mg t.i.d. Zoloft 75 mg daily DC CIWA; does not seem to have been drinking enough for withdrawal and has not been scoring on CIWA Elevated cholesterol; will consider treatment Will also consider metformin to address metabolic syndrome Reason for continued inpatient stay Substantial Risk for: inability to function and rapid decompensation Time Spent With Patient Time: Total time managing care of this patient today ____ minutes.
[2025-03-18 19:31] VITALS: BP 126/78; PULSE 106; TEMP 36.7; O2SAT 98
[2025-03-19 08:00] VITALS: RESP 18
--- NOTE | 2025-03-19 16:21 | HO.PSYCHPN ---
Subjective Subjective Date of Service: 03/19/25 Reason For Visit: schizophrenia Interim History: Patient seen and discussed with RN. Improving. Says hallucinations are not as overwhelming. Focused on getting better so she can attend her sister's wedding. She says she has to get to a program after DC but her parents are willing to keep me in the house for a couple of days. Restarted on Clozaril, denies SE. Review of Systems Review of Systems Denies Yes all other systems are reviewed and are negative Mental Status Exam Mental Status Exam Narrative: Pt is alert and oriented; behavior is cooperative, friendly and calm; patient is not in distress; dressed in casual attire with adequate hygiene and grooming; mood is described as good and affect congruent; eye contact appropriate; Speech is normal rate, volume and prosody and not pressured; no psychomotor agitation/retardation present; thought process is with some mild thought blocking but otherwise organized and goal directed; Thought content is on tx; patient not clear on recent details regarding medication; no delusional ideations expressed; denies any SI/HI. Chronic AH that says the same thing; some internal preoccupation. Patients insight and judgment impaired Patient Appearance: Appropriate Patient Orientation: Person, Place, Time and Situation Level of Consciousness: Alert Patient Behavior: Talkative Mood Description: Appropriate and Expansive Affect Description: Appropriate Patient Cognition Impaired: No Ability to Follow Directions: Good Speech Pattern: Spontaneous Speech Memory Description: Intact Diagnostics Vital Signs (24Hr): Vital Signs - 24 hr 03/18/25 19:31 03/19/25 08:00 Temperature 98.1 F Pulse Rate 106 H Respiratory Rate 18 Blood Pressure 126/78 Pulse Oximetry 98 Oxygen Delivery Method Room Air BMI result Body Mass Index 33.0 Labs 03/14/25 11:43 03/16/25 07:43 Medications Medications Current Medications Acetaminophen (Acetaminophen 325 Mg Tablet) 650 mg PO Q6H PRN PRN Reason: Headache/Pain, Scale 1-10 Last Admin: 03/18/25 11:45 Dose: 650 mg Al Hydroxide/Mg Hydroxide (Magnesium Hydrox/Alum Hydrox 30 Ml Oral.Susp) 30 ml PO Q6H PRN PRN Reason: Heartburn/Nausea Benztropine Mesylate (Benztropine Mesylate 1 Mg Tablet) 1 mg PO TID DUSTIN Last Admin: 03/19/25 15:33 Dose: 1 mg Clozapine (Clozapine 25 Mg Tablet) 150 mg PO BEDTIME [facility] Last Admin: 03/18/25 20:30 Dose: 150 mg Clozapine (Clozapine 25 Mg Tablet) 25 mg PO BEDTIME [facility] Last Admin: 03/18/25 20:31 Dose: 25 mg Clozapine (Clozapine 100 Mg Tablet) 200 mg PO BEDTIME [facility] Last Admin: 03/18/25 20:30 Dose: 200 mg Docusate Sodium (Docusate Sodium 100 Mg Capsule) 100 mg PO BID [facility] Last Admin: 03/19/25 09:37 Dose: 100 mg Hydroxyzine HCl (Hydroxyzine Hcl 25 Mg Tablet) 25 mg PO Q6H PRN PRN Reason: mild anxiety Last Admin: 03/16/25 12:09 Dose: 25 mg Lamotrigine (Lamotrigine 25 Mg Tablet) 25 mg PO DAILY [facility] Last Admin: 03/19/25 09:37 Dose: 25 mg Lamotrigine (Lamotrigine 100 Mg Tablet) 100 mg PO DAILY [facility] Last Admin: 03/19/25 09:37 Dose: 100 mg Magnesium Hydroxide (Milk Of Magnesia 30 Ml Oral.Susp) 30 ml PO DAILY PRN PRN Reason: Constipation Metformin HCl (Metformin Hcl 500 Mg Tablet) 500 mg PO DAILY [facility] Last Admin: 03/19/25 09:37 Dose: 500 mg Multivitamins/Vitamin C (Multivitamin Tablet) 1 tab PO DAILY [facility] Last Admin: 03/19/25 09:37 Dose: 1 tab Nicotine (Nicotine 21 Mg Patch.Td24) 21 mg TRANSDERMA DAILY PRN PRN Reason: smoking cessation Nicotine Polacrilex (Nicotine Polacrilex 2 Mg Gum) 4 mg BUCCAL Q2H PRN PRN Reason: Nicotine Cravings Last Admin: 03/19/25 16:08 Dose: 4 mg Olanzapine (Olanzapine 5 Mg Tablet) 5 mg PO TID PRN PRN Reason: agitation Last Admin: 03/18/25 12:33 Dose: 5 mg Omeprazole (Omeprazole 40 Mg Capsule.Dr) 40 mg PO DAILY@0630 [facility] Last Admin: 03/19/25 06:29 Dose: 40 mg Sertraline HCl (Sertraline Hcl 25 Mg Tablet) 75 mg PO DAILY [facility] Last Admin: 03/19/25 09:37 Dose: 75 mg Allergies Allergies Allergy/AdvReac Type Severity Reaction Status Date / Time aripiprazole (Abilify) Allergy Unknown tongue Verified 03/14/25 11:25 swells and gain weight risperidone (From Risperdal) AdvReac Unknown gain Verified 03/14/25 11:25 weight, and slurred speech cariprazine (From Vraylar) AdvReac Verified 03/14/25 11:25 haloperidol (From Haldol) AdvReac DYSTONIA Verified 03/14/25 11:25 paliperidone AdvReac dystonia Verified 03/14/25 11:25 trazodone AdvReac DYSTONIA Verified 03/14/25 11:25 Assessment & Plan Assessment & Plan (1) Schizophrenia: Status: Acute Code(s): F20.9 - Schizophrenia, unspecified (2) PTSD (post-traumatic stress disorder): Status: Acute Code(s): F43.10 - Post-traumatic stress disorder, unspecified (3) Alcohol use: Status: Acute Code(s): F10.90 - Alcohol use, unspecified, uncomplicated (4) Cocaine use: Status: Acute Code(s): F14.90 - Cocaine use, unspecified, uncomplicated Plan HPI: Patient is a 24-year-old female with history of schizophrenia, PTSD, alcohol and cocaine use who presents after her mother called crisis, reporting patient's erratic behaviors and being off her medication. Patient agrees that she has not been consistent with her medications but says she consistently takes her nighttime medication clozapine and over the past couple months, only misses taking them once or twice a week; the past week or 2, she may have been less consistent. Regarding daytime medications, patient reports she is less saying she is not sure if she needs them and asked what they were. Patient reports that she continues to hear the voice say we want to kill you... However she says this has been consistent for years and has never gone away despite medications; she says the medications help maybe stabilized but do not take the voice away. She denies any other voices. Regarding alcohol use she says only with friends a few times a week and never to excess; she says cocaine is just once in awhile if offered to her and less than once a month. She is irritated with her mom for calling crisis on her in a clandestine way and wants to move out back to a residential house. She denies that she has been manic and says she overall sleeps well and is only missed a few nights sleep in the past couple weeks. Patient says she wants to be on her medications and be stable and is very hopeful she will be able to attend her sister's wedding in a week. She denies any SI or HI at all Formulation/clinical reasoning: Patient has history of psychotic illness and more less stabilized on Clozaril and Lamictal; seems that once she moved out of the residential house and back home she started to dabble with alcohol and cocaine; there is some discrepancy between her report and her mother's report about her recent behaviors and medication adherence. Currently patient is organized in behavior and speech and denies any additional symptoms other than her baseline AH. Regarding substance abuse, patient says that the reason that she sometimes uses alcohol or cocaine to deal with the upsetting experience of AH Discussed medications, risks/side effects of Lamictal and antipsychotics. Will restart/continue clozapine 375 mg q.h.s.; it seems that patient has been taking this frequently enough enough that can resume home dose; she was already restarted on this dose this while in the ED and denies any medication side effects and BP is WNL. Patient is unclear about how consistently she has been taking Lamictal 125 mg daily. This was also restarted in the ED; will continue it and monitor closely. -patient is the maid of honor in her sister's wedding which is next week; hopefully patient can demonstrate consistent stability and be able to discharge and time for this event 03/17: Continue regime Metformin 500 mg daily 03/18: Continue current management and treatment plan. 03/19: Continue current management and treatment plan. Plan: CV Q 15 minute checks Clozapine 375 mg q.h.s. Lamictal 125 mg daily Benztropine 1 mg t.i.d. Zoloft 75 mg daily DC CIWA; does not seem to have been drinking enough for withdrawal and has not been scoring on CIWA Elevated cholesterol; will consider treatment Will also consider metformin to address metabolic syndrome Reason for continued inpatient stay Substantial Risk for: inability to function and rapid decompensation Time Spent With Patient Time: Total time managing care of this patient today ____ minutes.
[2025-03-19 19:54] VITALS: BP 133/86; PULSE 133; RESP 20; TEMP 36.3; O2SAT 98
[2025-03-20 08:00] VITALS: RESP 18
--- NOTE | 2025-03-20 10:10 | HO.PSYCHPN ---
Subjective Subjective Date of Service: 03/20/25 Reason For Visit: schizophrenia Subjective Notes: Conditional Voluntary Healthcare Proxy: No Guardianship: No Medical Problems Affecting Mental Status: No Interim History: Desi is tolerating medication re-titration. She denies adverse effects, sedation, reporting she feels well. Today we discussed her goals for her family meeting on 03/21. 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 She is anxious to hear from [facility] regarding a potential acceptance into their program-she reports her last admit there was successful. She anticipates her mother will want to discuss precipitants to her admission, her plans for sober living and actions of getting high, taking mother's money prior to admission. She reports being prepared to discuss these difficult issues. Planning discharge for Thursday as she will serve as maid of honor in sister's wedding this . Medication Compliance: Yes Side effects from medications: No Attending Groups: Intermittent Review of Systems Review of Systems Denies Mental Status Exam Mental Status Exam Patient Appearance: Appropriate Patient Orientation: Person, Place, Time and Situation Level of Consciousness: Alert Patient Behavior: Talkative Mood Description: Appropriate and Expansive Affect Description: Appropriate Patient Cognition Impaired: No Ability to Follow Directions: Good Speech Pattern: Spontaneous Speech Memory Description: Intact Hallucinations: None (Denies today) Delusions: Not Present Thought Process: Intact Thought Content: positive for Intact and positive for Circumstantial Judgement: Good Diagnostics Vital Signs (24Hr): Vital Signs - 24 hr 03/19/25 19:54 03/20/25 08:00 Temperature 97.3 F Pulse Rate 133 H Respiratory Rate 20 18 Blood Pressure 133/86 Pulse Oximetry 98 Oxygen Delivery Method Room Air BMI result Body Mass Index 33.0 Labs 03/14/25 11:43 03/16/25 07:43 Medications Medications Current Medications Acetaminophen (Acetaminophen 325 Mg Tablet) 650 mg PO Q6H PRN PRN Reason: Headache/Pain, Scale 1-10 Last Admin: 03/18/25 11:45 Dose: 650 mg Al Hydroxide/Mg Hydroxide (Magnesium Hydrox/Alum Hydrox 30 Ml Oral.Susp) 30 ml PO Q6H PRN PRN Reason: Heartburn/Nausea Benztropine Mesylate (Benztropine Mesylate 1 Mg Tablet) 1 mg PO TID [facility] Last Admin: 03/20/25 09:39 Dose: 1 mg Clozapine (Clozapine 25 Mg Tablet) 150 mg PO BEDTIME [facility] Last Admin: 03/19/25 21:37 Dose: 150 mg Clozapine (Clozapine 25 Mg Tablet) 25 mg PO BEDTIME [facility] Last Admin: 03/19/25 21:36 Dose: 25 mg Clozapine (Clozapine 100 Mg Tablet) 200 mg PO BEDTIME [facility] Last Admin: 03/19/25 21:37 Dose: 200 mg Docusate Sodium (Docusate Sodium 100 Mg Capsule) 100 mg PO BID [facility] Last Admin: 03/20/25 09:39 Dose: 100 mg Hydroxyzine HCl (Hydroxyzine Hcl 25 Mg Tablet) 25 mg PO Q6H PRN PRN Reason: mild anxiety Last Admin: 03/19/25 18:56 Dose: 25 mg Lamotrigine (Lamotrigine 25 Mg Tablet) 25 mg PO DAILY [facility] Last Admin: 03/20/25 09:39 Dose: 25 mg Lamotrigine (Lamotrigine 100 Mg Tablet) 100 mg PO DAILY [facility] Last Admin: 03/20/25 09:39 Dose: 100 mg Magnesium Hydroxide (Milk Of Magnesia 30 Ml Oral.Susp) 30 ml PO DAILY PRN PRN Reason: Constipation Metformin HCl (Metformin Hcl 500 Mg Tablet) 500 mg PO DAILY [facility] Last Admin: 03/20/25 09:39 Dose: 500 mg Multivitamins/Vitamin C (Multivitamin Tablet) 1 tab PO DAILY [facility] Last Admin: 03/20/25 09:39 Dose: 1 tab Nicotine (Nicotine 21 Mg Patch.Td24) 21 mg TRANSDERMA DAILY PRN PRN Reason: smoking cessation Nicotine Polacrilex (Nicotine Polacrilex 2 Mg Gum) 4 mg BUCCAL Q2H PRN PRN Reason: Nicotine Cravings Last Admin: 03/20/25 09:39 Dose: 4 mg Olanzapine (Olanzapine 5 Mg Tablet) 5 mg PO TID PRN PRN Reason: agitation Last Admin: 03/19/25 16:28 Dose: 5 mg Omeprazole (Omeprazole 40 Mg Capsule.Dr) 40 mg PO DAILY@0630 [facility] Last Admin: 03/20/25 06:50 Dose: 40 mg Sertraline HCl (Sertraline Hcl 25 Mg Tablet) 75 mg PO DAILY [facility] Last Admin: 03/20/25 09:39 Dose: 75 mg Allergies Allergies Allergy/AdvReac Type Severity Reaction Status Date / Time aripiprazole (Abilify) Allergy Unknown tongue Verified 03/14/25 11:25 swells and gain weight risperidone (From Risperdal) AdvReac Unknown gain Verified 03/14/25 11:25 weight, and slurred speech cariprazine (From Vraylar) AdvReac Verified 03/14/25 11:25 haloperidol (From Haldol) AdvReac DYSTONIA Verified 03/14/25 11:25 paliperidone AdvReac dystonia Verified 03/14/25 11:25 trazodone AdvReac DYSTONIA Verified 03/14/25 11:25 Assessment & Plan Assessment & Plan (1) Schizophrenia: Status: Acute Code(s): F20.9 - Schizophrenia, unspecified (2) PTSD (post-traumatic stress disorder): Status: Acute Code(s): F43.10 - Post-traumatic stress disorder, unspecified (3) Alcohol use: Status: Acute Code(s): F10.90 - Alcohol use, unspecified, uncomplicated (4) Cocaine use: Status: Acute Code(s): F14.90 - Cocaine use, unspecified, uncomplicated Plan HPI: Patient is a 24-year-old female with history of schizophrenia, PTSD, alcohol and cocaine use who presents after her mother called crisis, reporting patient's erratic behaviors and being off her medication. Patient agrees that she has not been consistent with her medications but says she consistently takes her nighttime medication clozapine and over the past couple months, only misses taking them once or twice a week; the past week or 2, she may have been less consistent. Regarding daytime medications, patient reports she is less saying she is not sure if she needs them and asked what they were. Patient reports that she continues to hear the voice say we want to kill you... However she says this has been consistent for years and has never gone away despite medications; she says the medications help maybe stabilized but do not take the voice away. She denies any other voices. Regarding alcohol use she says only with friends a few times a week and never to excess; she says cocaine is just once in awhile if offered to her and less than once a month. She is irritated with her mom for calling crisis on her in a clandestine way and wants to move out back to a retirement house. She denies that she has been manic and says she overall sleeps well and is only missed a few nights sleep in the past couple weeks. Patient says she wants to be on her medications and be stable and is very hopeful she will be able to attend her sister's wedding in a week. She denies any SI or HI at all Formulation/clinical reasoning: Patient has history of psychotic illness and more less stabilized on Clozaril and Lamictal; seems that once she moved out of the retirement house and back home she started to dabble with alcohol and cocaine; there is some discrepancy between her report and her mother's report about her recent behaviors and medication adherence. Currently patient is organized in behavior and speech and denies any additional symptoms other than her baseline AH. Regarding substance abuse, patient says that the reason that she sometimes uses alcohol or cocaine to deal with the upsetting experience of AH Discussed medications, risks/side effects of Lamictal and antipsychotics. Will restart/continue clozapine 375 mg q.h.s.; it seems that patient has been taking this frequently enough enough that can resume home dose; she was already restarted on this dose this while in the ED and denies any medication side effects and BP is WNL. Patient is unclear about how consistently she has been taking Lamictal 125 mg daily. This was also restarted in the ED; will continue it and monitor closely. -patient is the maid of honor in her sister's wedding which is next week; hopefully patient can demonstrate consistent stability and be able to discharge and time for this event 03/17: Continue regime Metformin 500 mg daily 03/18: Continue current management and treatment plan. 03/19: Continue current management and treatment plan. 03/20: Continue tx. Family meeting 03/21. Plan: CV Q 15 minute checks Clozapine 375 mg q.h.s. Lamictal 125 mg daily Benztropine 1 mg t.i.d. Zoloft 75 mg daily DC CIWA; does not seem to have been drinking enough for withdrawal and has not been scoring on CIWA Elevated cholesterol; will consider treatment Will also consider metformin to address metabolic syndrome Reason for continued inpatient stay Substantial Risk for: rapid decompensation Time Spent With Patient Time: Total time managing care of this patient today ____ minutes.
[2025-03-20 20:00] VITALS: BP 136/94; PULSE 125; RESP 16; TEMP 36.6; O2SAT 97
[2025-03-21 08:00] VITALS: BP 100/70; PULSE 85; RESP 16; TEMP 36.8; O2SAT 95
[2025-03-21 11:34] LABS: Neut%MD 53.3 %; WBCANC 5.7 X10*3/uL
--- NOTE | 2025-03-21 13:23 | PC.NURSE ---
Pt produced a small amount of vomit x2 this morning. She states that she took her morning medication on an empty stomach. She denies any continued symptoms. Reported to provider via [employer].
--- NOTE | 2025-03-21 17:32 | P.PNPSI_ITS ---
Subjective Subjective Date of Service: 03/21/25 Reason For Visit: schizophrenia Subjective Notes: Conditional Voluntary Healthcare Proxy: No Guardianship: No Medical Problems Affecting Mental Status: No Interim History: Family/Team meeting today. Pt was declined by [facility] for admit. OP team will look at respite as an option. Team will apply for other appropriate programs identified. Pt denies SI,HI,AH,VH. No sx of acute nela or psychosis DC 03/22. Medication Compliance: Yes Side effects from medications: No Attending Groups: Intermittent Review of Systems Acute medical concerns: No Review of Systems Review of Systems Denies Mental Status Exam Mental Status Exam Patient Appearance: Appropriate Patient Orientation: Person, Place, Time and Situation Level of Consciousness: Alert Patient Behavior: Talkative Mood Description: Appropriate Affect Description: Appropriate Patient Cognition Impaired: No Ability to Follow Directions: Good Speech Pattern: Spontaneous Speech Memory Description: Intact Hallucinations: None (Denies today) Delusions: Not Present Thought Process: Intact Thought Content: positive for Intact and positive for Circumstantial Judgement: Good Diagnostics Vital Signs (24Hr): Vital Signs - 24 hr 03/20/25 20:00 03/21/25 08:00 Temperature 98 F 98.2 F Pulse Rate 125 H 85 Respiratory Rate 16 16 Blood Pressure 136/94 H 100/70 Pulse Oximetry 97 95 Oxygen Delivery Method Room Air Room Air BMI result Body Mass Index 33.0 Labs 03/14/25 11:43 03/16/25 07:43 Labs: Laboratory Results - last 48 hr 03/21/25 11:06 Absolute Neuts (auto) 3.0 Medications Medications Current Medications Acetaminophen (Acetaminophen 325 Mg Tablet) 650 mg PO Q6H PRN PRN Reason: Headache/Pain, Scale 1-10 Last Admin: 03/21/25 14:51 Dose: 650 mg Al Hydroxide/Mg Hydroxide (Magnesium Hydrox/Alum Hydrox 30 Ml Oral.Susp) 30 ml PO Q6H PRN PRN Reason: Heartburn/Nausea Benztropine Mesylate (Benztropine Mesylate 1 Mg Tablet) 1 mg PO TID [facility] Last Admin: 03/21/25 14:51 Dose: 1 mg Clozapine (Clozapine 25 Mg Tablet) 150 mg PO BEDTIME [facility] Last Admin: 03/20/25 20:45 Dose: 150 mg Clozapine (Clozapine 25 Mg Tablet) 25 mg PO BEDTIME [facility] Last Admin: 03/20/25 20:45 Dose: 25 mg Clozapine (Clozapine 100 Mg Tablet) 200 mg PO BEDTIME [facility] Last Admin: 03/20/25 20:44 Dose: 200 mg Docusate Sodium (Docusate Sodium 100 Mg Capsule) 100 mg PO BID [facility] Last Admin: 03/21/25 09:11 Dose: 100 mg Hydroxyzine HCl (Hydroxyzine Hcl 25 Mg Tablet) 25 mg PO Q6H PRN PRN Reason: mild anxiety Last Admin: 03/19/25 18:56 Dose: 25 mg Lamotrigine (Lamotrigine 25 Mg Tablet) 25 mg PO DAILY [facility] Last Admin: 03/21/25 09:11 Dose: 25 mg Lamotrigine (Lamotrigine 100 Mg Tablet) 100 mg PO DAILY [facility] Last Admin: 03/21/25 09:11 Dose: 100 mg Magnesium Hydroxide (Milk Of Magnesia 30 Ml Oral.Susp) 30 ml PO DAILY PRN PRN Reason: Constipation Metformin HCl (Metformin Hcl 500 Mg Tablet) 500 mg PO DAILY [facility] Last Admin: 03/21/25 09:11 Dose: 500 mg Multivitamins/Vitamin C (Multivitamin Tablet) 1 tab PO DAILY [facility] Last Admin: 03/21/25 09:11 Dose: 1 tab Nicotine (Nicotine 21 Mg Patch.Td24) 21 mg TRANSDERMA DAILY PRN PRN Reason: smoking cessation Nicotine Polacrilex (Nicotine Polacrilex 2 Mg Gum) 4 mg BUCCAL Q2H PRN PRN Reason: Nicotine Cravings Last Admin: 03/21/25 15:46 Dose: 4 mg Olanzapine (Olanzapine 5 Mg Tablet) 5 mg PO TID PRN PRN Reason: agitation Last Admin: 03/19/25 16:28 Dose: 5 mg Omeprazole (Omeprazole 40 Mg Capsule.Dr) 40 mg PO DAILY@0630 [facility] Last Admin: 03/21/25 06:16 Dose: 40 mg Sertraline HCl (Sertraline Hcl 25 Mg Tablet) 75 mg PO DAILY [facility] Last Admin: 03/21/25 09:11 Dose: 75 mg Allergies Allergies Allergy/AdvReac Type Severity Reaction Status Date / Time aripiprazole (Abilify) Allergy Unknown tongue Verified 03/14/25 11:25 swells and gain weight risperidone (From Risperdal) AdvReac Unknown gain Verified 03/14/25 11:25 weight, and slurred speech cariprazine (From Vraylar) AdvReac Verified 03/14/25 11:25 haloperidol (From Haldol) AdvReac DYSTONIA Verified 03/14/25 11:25 paliperidone AdvReac dystonia Verified 03/14/25 11:25 trazodone AdvReac DYSTONIA Verified 03/14/25 11:25 Assessment & Plan Assessment & Plan (1) Schizophrenia: Status: Acute Code(s): F20.9 - Schizophrenia, unspecified (2) PTSD (post-traumatic stress disorder): Status: Acute Code(s): F43.10 - Post-traumatic stress disorder, unspecified (3) Alcohol use: Status: Acute Code(s): F10.90 - Alcohol use, unspecified, uncomplicated (4) Cocaine use: Status: Acute Code(s): F14.90 - Cocaine use, unspecified, uncomplicated Plan HPI: Patient is a 24-year-old female with history of schizophrenia, PTSD, alcohol and cocaine use who presents after her mother called crisis, reporting patient's erratic behaviors and being off her medication. Patient agrees that she has not been consistent with her medications but says she consistently takes her nighttime medication clozapine and over the past couple months, only misses taking them once or twice a week; the past week or 2, she may have been less consistent. Regarding daytime medications, patient reports she is less saying she is not sure if she needs them and asked what they were. Patient reports that she continues to hear the voice say we want to kill you... However she says this has been consistent for years and has never gone away despite medications; she says the medications help maybe stabilized but do not take the voice away. She denies any other voices. Regarding alcohol use she says only with friends a few times a week and never to excess; she says cocaine is just once in awhile if offered to her and less than once a month. She is irritated with her mom for calling crisis on her in a clandestine way and wants to move out back to a intermediate house. She denies that she has been manic and says she overall sleeps well and is only missed a few nights sleep in the past couple weeks. Patient says she wants to be on her medications and be stable and is very hopeful she will be able to attend her sister's wedding in a week. She denies any SI or HI at all Formulation/clinical reasoning: Patient has history of psychotic illness and more less stabilized on Clozaril and Lamictal; seems that once she moved out of the intermediate house and back home she started to dabble with alcohol and cocaine; there is some discrepancy between her report and her mother's report about her recent behaviors and medication adherence. Currently patient is organized in behavior and speech and denies any additional symptoms other than her baseline AH. Regarding substance abuse, patient says that the reason that she sometimes uses alcohol or cocaine to deal with the upsetting experience of AH Discussed medications, risks/side effects of Lamictal and antipsychotics. Will restart/continue clozapine 375 mg q.h.s.; it seems that patient has been taking this frequently enough enough that can resume home dose; she was already restarted on this dose this while in the ED and denies any medication side effects and BP is WNL. Patient is unclear about how consistently she has been taking Lamictal 125 mg daily. This was also restarted in the ED; will continue it and monitor closely. -patient is the maid of honor in her sister's wedding which is next week; hopefully patient can demonstrate consistent stability and be able to discharge and time for this event 03/17: Continue regime Metformin 500 mg daily 03/18: Continue current management and treatment plan. 03/19: Continue current management and treatment plan. 03/20: Continue tx. Family meeting 03/21. 03/22: DC 03/22 Plan: CV Q 15 minute checks Clozapine 375 mg q.h.s. Lamictal 125 mg daily Benztropine 1 mg t.i.d. Zoloft 75 mg daily DC CIWA; does not seem to have been drinking enough for withdrawal and has not been scoring on CIWA Elevated cholesterol; will consider treatment Will also consider metformin to address metabolic syndrome Reason for continued inpatient stay Substantial Risk for: stable for discharge Time Spent With Patient Time: Total time managing care of this patient today ____ minutes.
[2025-03-21 20:00] VITALS: BP 121/74; PULSE 109; RESP 18; TEMP 36.7; O2SAT 97
[2025-03-22 08:00] VITALS: BP 135/82; PULSE 95; TEMP 36.4; O2SAT 98
--- NOTE | 2025-03-22 12:17 | PM.PSYDC ---
DS: Providers Provider Date of Service: 03/22/25 Date of admission: 03/15/25 16:51 Date of discharge: 03/22/25 Primary care physician: Brianna Dunn MD Admitting clinician: Elli Vergara Attending physician on admission: Zeferino Gentile Consults: 03/15/25 18:20 Addiction Medicine Provider Routine Consulting Provider: Addiction Covering Reason for consultation: patient is interested in quitting marijuana Attending physician on discharge: Zeferino Gentile Discharging clinician: Zee Washington DS: Diagnosis Discharge Diagnosis (1) Schizophrenia: Status: Acute (2) PTSD (post-traumatic stress disorder): Status: Acute (3) Alcohol use: Status: Acute (4) Cocaine use: Status: Acute DS: Medications Discharge Medications Home Medications: Previous Rx's ?Medication ?Instructions ?Recorded acetaminophen 325 mg tablet 650 mg (2 x 325 mg) PO Q6H PRN 03/21/25 Headache/Pain, Scale 1-10 #0 tabs benztropine 1 mg tablet 1 tab PO TID #90 tabs 03/21/25 clozapine 100 mg tablet 150 mg (1.5 x 100 mg) PO BEDTIME 03/21/25 #45 tabs clozapine 200 mg tablet 200 mg PO BEDTIME #30 tabs 03/21/25 clozapine 25 mg tablet 25 mg PO BEDTIME #30 tabs 03/21/25 docusate sodium 250 mg capsule 250 mg PO DAILY #90 caps 03/21/25 hydroxyzine pamoate 25 mg capsule 25 mg PO TID PRN Anxiety #90 caps 03/21/25 lamotrigine 100 mg tablet 1 tab PO DAILY #30 tabs 03/21/25 lamotrigine 25 mg tablet 25 mg PO DAILY #30 tabs 03/21/25 metformin 500 mg tablet 500 mg PO DAILY #30 tabs 03/21/25 multivitamin 1 tab PO DAILY #90 tabs 03/21/25 nicotine (polacrilex) 2 mg gum 4 mg buccal Q2H PRN Nicotine 03/21/25 Cravings #100 ea olanzapine 5 mg tablet 5 mg PO TID PRN agitation #90 tabs 03/21/25 omeprazole 40 mg capsule,delayed 40 mg PO DAILY@0630 #30 caps 03/21/25 release sertraline 50 mg tablet 75 mg (1.5 x 50 mg) PO DAILY #45 03/21/25 tabs Mental Status Exam Mental Status Exam Patient Appearance: Appropriate Patient Orientation: Person, Place, Time and Situation Level of Consciousness: Alert Patient Behavior: Talkative Mood Description: Appropriate Affect Description: Appropriate Patient Cognition Impaired: No Ability to Follow Directions: Good Speech Pattern: Spontaneous Speech Memory Description: Intact Hallucinations: None (Denies today) Delusions: Not Present Thought Process: Intact Thought Content: positive for Intact and positive for Circumstantial Judgement: Good Data Data Completed and Pending Completed studies during hospitalization [Text1]: 03/14/25 03/16/25 03/21/25 14:15 07:43 11:06 Absolute Neuts (auto) 3.0 Sodium 138 Potassium 4.0 Chloride 106 Carbon Dioxide 22 Anion Gap 14 BUN 10 Creatinine 0.87 Estim Creat Clear Calc 106.4 Estimated GFR > 60 Random Glucose 97 Estimat Average Glucose 97 Hemoglobin A1c % 5.0 Calcium 9.3 Total Bilirubin 0.7 AST 22 ALT 36 H Alkaline Phosphatase 55 Total Protein 6.9 Albumin 4.8 Triglycerides 174 H Cholesterol 212 H LDL Cholesterol, Calc 146 H HDL Cholesterol 32 L TSH 1.09 Clozapine 408 Norclozapine 238 DS: Summary Hospital Course Hospital Course: Admission to adult psychiatry for exacerbation of PTSD, Schizophrenia, Polysubstance Use Disorder. Prior to admission pt had been medication noncompliant and had been using cocaine and alcohol. Possible stressors include sisters upcoming wedding next week. Medications were evaluated and returned to dosing prior to admission. Addiction medicine met with pt to offer support in stopping cannabis use. Pt utilized the milieu to strengthen her coping skills. Family and out pt team met with the team to review programs for review upon discharge for pt as she had been living with her parents. Pt was discharged to return to her providers with Vicente, DM and ACCS Status at Discharge Functional status at discharge: independent ambulation Overall status at discharge: patient is progressing back to baseline Time Spent with Patient Time attestation: Total time managing care of this patient today ____ minutes. Time spent: Less than 30 minutes Discharge Plan Discharge Anticipated Discharge Date/Time: 03/22/25 12:00 Patient Disposition: Home, Self-Care Discharge Diagnosis: PTSD Schizophrenia Polysubstance Use Referrals: Psych Prescriber: Mikayla BentleyVicente) [Other] - 04/07/25 12:30 pm Referral Note: Virtual/Telehealth [facility] [employer] Tutor: Rima Law [Other] - 03/28/25 3:00 pm Referral Note: Follow up with Rima as needed and to continue pursing a [facility] respite bed ACCS: Sonny Nails ([facility]) [Other] - 03/28/25 3:00 pm Referral Note: Follow up with ACCS as needed Co-Occurring Residential Referral: [facility] [Other] - 1 Week Referral Note: Follow up with Jose Cohn at the above number (hit prompt 4) or via email ([email or web address]) Co-Occurring Residential Referral: [facility] [Other] - 1 Week Referral Note: Follow up with Peyton at the above number or via email ([email or web address]). A phone interview was completed with them on 03/22/25 and you are on their wait list. Co-Occurring Residential Referral: [facility] [Other] - 1 Week Referral Note: Follow up with referral at the above number or via email ([email or web address]) Brianna Dunn MD [Primary Care Provider, Internal Medicine] - 1 Week Referral Note: Pt declined to sign release of information for PCP. Pt stated she preferred to contact PCP herself after discharge to schedule follow-up appointment. Discharge Medications: New metformin 500 mg Tablet 500 mg PO DAILY Qty: 30 0RF acetaminophen 325 mg Tablet 650 mg PO Q6H PRN (Reason: Headache/Pain, Scale 1-10) Qty: 0 0RF olanzapine 5 mg Tablet 5 mg PO TID PRN (Reason: agitation) Qty: 90 0RF nicotine (polacrilex) 4 mg gum 4 mg buccal Q2H PRN (Reason: nicotine cravings) Qty: 100 0RF Continued multivitamin Tablet 1 tab PO DAILY Qty: 90 3RF clozapine 100 mg tablet 150 mg PO BEDTIME Qty: 45 0RF Rx Instructions: Take 1 1/2 tablet by mouth once a day Take with 200mg and 25mg tablet for tdd of 375mg lamotrigine 25 mg tablet 25 mg PO DAILY Qty: 30 0RF Rx Instructions: take with 100 mg for a total dose =125 mg benztropine 1 mg tablet 1 tab PO TID Qty: 90 0RF docusate sodium 250 mg capsule 250 mg PO DAILY Qty: 90 1RF clozapine 25 mg tablet 25 mg PO BEDTIME Qty: 30 0RF Rx Instructions: Take 1 tablet by mouth once a day Take with 200mg and 100mg tablet (1.5 tabs) for tdd of 375mg sertraline 50 mg tablet 75 mg PO DAILY Qty: 45 0RF lamotrigine 100 mg tablet 1 tab PO DAILY Qty: 30 0RF hydroxyzine pamoate 25 mg capsule 25 mg PO TID PRN (Reason: Anxiety) Qty: 90 0RF clozapine 200 mg tablet 200 mg PO BEDTIME Qty: 30 0RF Rx Instructions: Take 1 tablet by mouth at bedtime Take with 100mg tablet (1.5 tabs) and 25mg tabs for TDD of 375mg Changed omeprazole 40 mg capsule,delayed release(DR/EC) 40 mg PO DAILY@0630 Qty: 30 0RF Rx Instructions: Take 1 capsule once a day an hour before or 2 hours after meals for 60 days Discontinued olanzapine 5 mg tablet 5 mg PO BID PRN (Reason: psychosis) Qty: 60 0RF Discharge Orders: Discharge Order (Routine); Ordered 03/22/25 Ordered By: Zee Washington Diet: Advance to usual diet Activity on Discharge: As tolerated Stand Alone Forms: Patient Portal Discharge page, Community Support Print Language: Citizen Of [place] Care Plan Goals: Abstain from substance use Mood and Behavioral Stabilization Health Concerns: Abstain from substance use Mood and Behavioral Stabilization Plan of Treatment: Attend scheduled appointments Take medications as directed Assessment: No SI,HI,AH,VH No sx of acute nela or psychosis Pt/family agree with plan of care. Pt/team are looking at programs for pt to attend post discharge. Discharge Date/Time: 03/22/25 11:51
== END 2025-03-22 11:51 | disposition home or self-care (01) | DRG 750 ==
LOC: HO.ED 14:42 → HO.PM5 03-15 17:16
PROVIDERS: Physician Assistant Medical; Admitting Provider Psychiatry & Neurology Psychiatry; Emergency Provider Emergency Medicine; PCP Internal Medicine; Visit Provider Clinical Nurse Specialist Psychiatric/Mental Health, Adult
DX: F20.9 Schizophrenia, unspecified (principal); F10.90 Alcohol use, unspecified, uncomplicated; F19.90 Other psychoactive substance use, unspecified, uncomplicated; F43.10 Post-traumatic stress disorder, unspecified; F14.90 Cocaine use, unspecified, uncomplicated; F12.90 Cannabis use, unspecified, uncomplicated; Z91.148 Patient's other noncompliance with medication regimen for other reason; Z79.84 Long term (current) use of oral hypoglycemic drugs; Z87.891 Personal history of nicotine dependence; Z79.899 Other long term (current) drug therapy
CPT/HCPCS: 36415; 80053; 80061; 80143; 80159; 80179; 80307; 81001; 81025; 83036; 83735; 84443; 85025; 85048; 99285; S9485

== ENCOUNTER → 2025-03-15 16:51 | Outpatient (BNV) | payer OTHER, MEDICARE, MEDICAID, SELFPAY | PROVIDERS: Admitting Provider Psychiatry & Neurology Psychiatry; Emergency Provider Emergency Medicine; PCP Internal Medicine; Visit Provider Nurse Practitioner Psychiatric/Mental Health | DX: F20.9 Schizophrenia, unspecified (principal); F43.11 Post-traumatic stress disorder, acute; F10.90 Alcohol use, unspecified, uncomplicated; F14.90 Cocaine use, unspecified, uncomplicated | CPT/HCPCS: 90792; 99231; 99232 ==

== ENCOUNTER 2025-05-25 07:42 | Outpatient (AMB) | payer OTHER, MEDICARE, MEDICAID, SELFPAY ==
--- OUTSIDE RECORDS SUMMARY | 2025-05-25 07:45 | XMS_ITS | Clinical Summary ---
Author Organization [facility] Address [address] [place] [phone] Phone Care Team Providers Care Secretary Bookkeeper Name Role Phone Brianna Dunn MD Primary [...] (18-6 5 YEARS) 2018 PAP SMEAR 2021 INFLUENZA VACCINE (#1) 2025 COVID-19 VACCINE (3 - 2025-2 6 season) 2025 02/19/2021, 01/08/2021 HEPATITIS A VACCINES Aged Out [...] topic Medical Devices Not on file Insurance [facility] MEDIC[facility] PART A & B [facility] POS [facility] MEDICARE PART A & B [facility] POS Member Subscriber Plan / Payer (Ef fective 2022-Present) Name:Darlene FlacoDesi levin Relation to Subscriber:Child Name:DEEPAK CARMEN Date of :1899 (Home) Address: [address] [place] [address] Payer ID:[id number] ([facility]) Type:POS Address: [address] [place] [address] [facility] [address] [place], [place] [address]O [facility] [address] [place] [address]O [facility] MEDIC[facility] PART A & B Member Subscriber Plan / Payer (Ef fective 2021-Present) Name:Darlene Samollie Desi Member ID:[id number] Relation to Subscriber:Self Name:Desi Dunne Subscriber ID:[id number] Payer ID:[id number] Group ID:Not on file Type:Medicare Address: [facility] [employer] [facility] [address] [place] [address] [facility] POS Member Subscriber Plan / Payer (Ef fective 2022-Present) Name:Darlene DenDesi levin Relation to Subscriber:Child Name:DEEPAK CARMEN Date of :1899 (Home) Address: [address] [place] [id number] Payer ID:[id number] ([facility]) Type:POS Address: [address] [place] [address] [facility] [place] [id number] MEDICARE PART A & B [facility] MEDICARE PART A & B [facility] POS O [facility] MEDICARE PART A & B [facility] POS Care Teams Secretary Bookkeeper Relationship Specialty Start Date End Date Brianna Dunn MD [address] [place] [phone] PCP - General Internal Medicine 06/10/23 Additional Source Comments The information contained in this document represents components of the legal health record. It is not the complete legal health record.[facility]
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
[2025-05-25 08:04] VITALS: BP 100/70; PULSE 95; RESP 16; TEMP 36.7; O2SAT 98; BMI 32.3
== END 2025-05-25 08:35 | disposition home or self-care (01) ==
LOC: HO.HMCC 07:43
PROVIDERS: PCP Internal Medicine; Visit Provider Internal Medicine
DX: Z00.01 Encounter for general adult medical examination with abnormal findings (principal); F25.0 Schizoaffective disorder, bipolar type; Z68.32 Body mass index [BMI] 32.0-32.9, adult; E66.9 Obesity, unspecified; E78.2 Mixed hyperlipidemia; R12 Heartburn; Z23 Encounter for immunization

== ENCOUNTER → 2025-05-25 07:42 | Outpatient (BNVA) | payer OTHER, MEDICARE, MEDICAID, SELFPAY | PROVIDERS: PCP Internal Medicine; Visit Provider Internal Medicine | DX: Z00.01 Encounter for general adult medical examination with abnormal findings (principal); F25.0 Schizoaffective disorder, bipolar type; E78.2 Mixed hyperlipidemia; E66.9 Obesity, unspecified; R12 Heartburn; Z23 Encounter for immunization | CPT/HCPCS: 90471; 90656; 96127 ==

== ENCOUNTER 2025-06-13 21:13 | Inpatient (IN) | payer OTHER, MEDICARE, MEDICAID, SELFPAY ==
[2025-06-13 21:32] VITALS: BP 118/82; BP 145/85; PULSE 96; PULSE 99; RESP 18; TEMP 36.1; O2SAT 96; O2SAT 98; BMI 26.6
[2025-06-13 22:11] LABS: MANUAL DIFF FLAG NO
[2025-06-13 22:12] LABS: Hematocrit 34.8 % (37.0-47.0); Hemoglobin 12.0 g/dl (12.0-16.0); Imm Gran Abs Auto 0.02 X10*3/uL (0.00-0.03); Imm Gran Pct Auto 0.3 % (0.0-0.4); Lymphocytes Absolute Auto 2.8 X10*3/uL (1.2-4.9); Mean Corpuscular HGB Conc 34.5 g/dl (31.0-35.0); Mean Corpuscular Hemoglobin 30.7 pg (27.0-33.0); Mean Corpuscular Volume 89.0 fL (80.0-98.0); NRBC Abs Auto 0.000 X10*3/uL (0.0-0.012); NRBC Pct Auto 0.0 /100WBC (0.0-0.2); Platelet Count 218 X10*3/uL (160-400); Red Blood Count 3.91 X10*6/uL (4.20-5.50); White Blood Count 7.3 X10*3/uL (4.8-10.8)
--- OUTSIDE RECORDS SUMMARY | 2025-06-13 22:12 | XMS_ITS | Clinical Summary ---
Author Organization [facility] Address [address] [place] [id number] Phone Care Team Providers Care Weaver Apprentice Name Role Phone Brianna Dunn MD Primary [...] topic Medical Devices Not on file [facility] MEDIC[facility] PART A & B [facility] PART A & B Member Subscriber Plan / Payer (Ef fective 2021-Present) Name:Desi Dunne Member ID:[id number] Relation to Subscriber:Self Name:Desi Dunne Subscriber ID:[id number] Payer ID:[id number] Group ID:Not on file Type:Medicare Address: [facility] [employer] [facility] [employer] [facility] [address] [place] [address] [facility] [address] [place] [address] [facility] A & B [facility] [place] [address] MEDICARE PART A & B [facility]IC[facility] PART A & B [facility] MEDIC[facility] PART A & B [facility] Care Teams Weaver Apprentice Relationship Specialty Start Date End Date Brianna Dunn MD [address] [facility] [facility] [place] [id number] PCP - General Internal Medicine 06/10/23 Additional Source Comments The information contained in this document represents components of the legal health record. It is not the complete legal health record.[facility]
--- OUTSIDE RECORDS SUMMARY | 2025-06-13 22:12 | XMS_ITS ---
Author Name [facility] Organization Unknown Care Team Organization Name Specialty Phone Email Start Date End Da te [facility] 05/30/2025 [facility] 05/30/2025
[2025-06-13 22:14] LABS: Appearance Urine Clear; Glucose Urine UA Negative (Negative); PH 6.0 (5.0-9.0); Specific Gravity - Urine >= 1.030 (1.005-1.025); UMIC TRIGGER UACC YES
[2025-06-13 22:15] LABS: UPreg QC Valid YES
[2025-06-13 22:19] LABS: UACC Culture Trigger YES
[2025-06-13 22:24] LABS: Cannabinoid Screen Urine POSITIVE (Not Detect)
[2025-06-13 22:29] LABS: Acetaminophen LAB < 3 mcg/mL (<30); Alanine Aminotransferase 21 U/L (0-31); Albumin Level 4.3 g/dL (3.5-5.0); Alkaline Phosphatase 57 U/L (39-117); Anion Gap 11 (12-20); Aspartate Amino Transferase 21 U/L (5-31); Blood Urea Nitrogen 9 mg/dL (9-16); Calcium 8.6 mg/dL (8.4-10.2); Carbon Dioxide 25 mmol/L (22-29); Chloride 110 mmol/L (96-108); Creatinine Clr Calc Pharmacy 129.2; Estimated Glomerular Filt Rate > 60; Potassium 3.6 mmol/L (3.3-5.1); Salicylate < 5.0 mg/dL (15-30); Sodium 142 mmol/L (135-145); Total Protein 6.3 g/dL (6.5-8.0)
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
[2025-06-14 06:17] VITALS: RESP 16
--- NOTE | 2025-06-14 08:20 | PC.NURSE ---
Assumed care, report received. Pt is currently sleeping, safety is maintained.
--- NOTE | 2025-06-14 09:25 | MHC.CARE ---
Pt will be an adult bedsearch
--- NOTE | 2025-06-14 10:17 | ECG_ITS ---
Test Reason : check qtc Blood Pressure : */* mmHG Vent. Rate : 67 BPM Atrial Rate : 67 BPM P-R Int : 162 ms QRS Dur : 84 ms QT Int : 408 ms P-R-T Axes : 20 56 45 degrees QTcB Int : 431 ms Normal sinus rhythm Normal ECG When compared with ECG of 06-Oct-2022 21:55, No significant change was found Referred By: Trish Salinas Electronically Signed By: SWATI MURRAY MD
--- NOTE | 2025-06-14 10:30 | PC.NURSE ---
This pattern chart writer confirmed with Patient that she took her last Clozapine dose of 400mg last night 06/13. Pharmacy is aware.
--- NOTE | 2025-06-14 10:38 | PHA.MEDREC ---
Pharmacy Consult ? Medication Reconciliation Pharmacy has reviewed the medication reconciliation done by nursing.
--- NOTE | 2025-06-14 11:07 | MHC.CARE ---
Spoke with pt's Mother, advised her that pt will be an inpatient bedsearch. She reports that pt does not live at home with her but rather, is temporarily residing at a [facility] respite in [place] [facility] until they can find her placement at a long term.
[2025-06-14 15:20] VITALS: BP 131/80; PULSE 80; TEMP 36.2; O2SAT 99; BMI 31.1
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
[2025-06-14 20:00] VITALS: BP 111/69; PULSE 105; RESP 20; TEMP 36.8; O2SAT 98
[2025-06-15 08:36] VITALS: BP 107/69; PULSE 93; RESP 16; TEMP 36.4; O2SAT 98
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
--- NOTE | 2025-06-15 10:23 | PC.NURSE ---
Declined flu vaccine, med education provided. cD
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
[2025-06-15 16:24] VITALS: BMI 30.9
[2025-06-15 19:58] VITALS: BP 121/78; PULSE 97; RESP 18; TEMP 35.8; O2SAT 98
--- NOTE | 2025-06-16 12:40 | HO.PSYCHPN ---
Subjective Subjective Date of Service: 06/16/25 Reason For Visit: PSYCH from [facility] SI no plan Subjective Notes: Conditional Voluntary Healthcare Proxy: No Guardianship: Yes Medical Problems Affecting Mental Status: No Interim History: Ailyn got me into a program. I think I am going next week. Pt discussed her possibly attending a program in [place] next week-she is pleased and anticipatory. Today, she discussed management of voices. Discussed that when they occur, she has to divert in some way. Discussed ideas to place these in perspective and some mantras she may use to assist. Pt asks for prn Olanzapine to assist which was ordered. She met with her waiter/waitress buffet and Hermes's monitor today via zoom and reports this went well. Medication Compliance: Yes Side effects from medications: No Attending Groups: Intermittent Review of Systems Acute medical concerns: No Medical Review of Systems: unchanged Review of Systems Review of Systems Denies Mental Status Exam Mental Status Exam Patient Appearance: Appropriate Patient Orientation: Person, Place, Time and Situation Level of Consciousness: Alert Patient Behavior: Talkative and Good Eye Contact Mood Description: Depressed Affect Description: Flat Patient Cognition Impaired: No Ability to Follow Directions: Good Speech Pattern: Spontaneous Speech Memory Description: Intact Hallucinations: Auditory Perceptual Disturbances: Depersonalization and Derealization Thought Process: Rumination Thought Content: positive for Perseveration and positive for Suicidal Ideation Depressive Symptoms: Thoughts of /Suicide Judgement: Fair Diagnostics Vital Signs (24Hr): Vital Signs - 24 hr 06/15/25 19:58 Temperature 96.5 F L Pulse Rate 97 Respiratory Rate 18 Blood Pressure 121/78 Pulse Oximetry 98 Oxygen Delivery Method Room Air BMI result Body Mass Index 30.9 Labs 06/13/25 22:03 06/13/25 22:04 Medications Medications Current Medications Acetaminophen (Acetaminophen 325 Mg Tablet) 650 mg PO Q6H PRN PRN Reason: Headache/Pain, Scale 1-10 Al Hydroxide/Mg Hydroxide (Magnesium Hydrox/Alum Hydrox 30 Ml Oral.Susp) 30 ml PO Q6H PRN PRN Reason: Heartburn/Nausea Benztropine Mesylate (Benztropine Mesylate 1 Mg Tablet) 1 mg PO TID [facility] Last Admin: 06/16/25 09:11 Dose: 1 mg Cefuroxime Axetil (Cefuroxime Axetil 250 Mg Tablet) 250 mg PO BID [facility] Stop: 06/21/25 08:59 Last Admin: 06/16/25 09:10 Dose: 250 mg Clozapine (Clozapine 100 Mg Tablet) 400 mg PO BEDTIME [facility] Last Admin: 06/15/25 21:00 Dose: 400 mg Docusate Sodium (Docusate Sodium 100 Mg Capsule) 100 mg PO BID [facility] Last Admin: 06/16/25 12:26 Dose: 100 mg Hydroxyzine HCl (Hydroxyzine Hcl 25 Mg Tablet) 25 mg PO Q6H PRN PRN Reason: mild anxiety Lamotrigine (Lamotrigine 25 Mg Tablet) 25 mg PO DAILY [facility] Last Admin: 06/16/25 09:11 Dose: 25 mg Lamotrigine (Lamotrigine 100 Mg Tablet) 100 mg PO DAILY [facility] Last Admin: 06/16/25 09:11 Dose: 100 mg Magnesium Hydroxide (Milk Of Magnesia 30 Ml Oral.Susp) 30 ml PO DAILY PRN PRN Reason: Constipation Metformin HCl (Metformin Hcl 500 Mg Tablet) 500 mg PO DAILY [facility] Last Admin: 06/16/25 09:11 Dose: 500 mg Nicotine (Nicotine 21 Mg Patch.Td24) 21 mg TRANSDERMA DAILY PRN PRN Reason: smoking cessation Nicotine Polacrilex (Nicotine Polacrilex 2 Mg Gum) 4 mg BUCCAL Q2H PRN PRN Reason: Nicotine Cravings Last Admin: 06/16/25 11:12 Dose: 4 mg Sertraline HCl (Sertraline Hcl 25 Mg Tablet) 75 mg PO DAILY [facility] Last Admin: 06/16/25 09:10 Dose: 75 mg Allergies Allergies Allergy/AdvReac Type Severity Reaction Status Date / Time aripiprazole (Abilify) Allergy Unknown tongue Verified 06/13/25 21:34 swells and gain weight risperidone (From Risperdal) AdvReac Unknown gain Verified 06/13/25 21:34 weight, and slurred speech cariprazine (From Vraylar) AdvReac Verified 06/13/25 21:34 haloperidol (From Haldol) AdvReac DYSTONIA Verified 06/13/25 21:34 paliperidone AdvReac dystonia Verified 06/13/25 21:34 trazodone AdvReac DYSTONIA Verified 06/13/25 21:34 Assessment & Plan Assessment & Plan (1) PTSD (post-traumatic stress disorder): Status: Acute Code(s): F43.10 - Post-traumatic stress disorder, unspecified (2) Schizoaffective disorder, bipolar type: Status: Acute Code(s): F25.0 - Schizoaffective disorder, bipolar type (3) Cannabis use disorder: Status: Acute Code(s): F12.90 - Cannabis use, unspecified, uncomplicated (4) Cocaine use disorder: Status: Acute Code(s): F14.10 - Cocaine abuse, uncomplicated Plan 24 yo female, history of PTSD, Schizoaffective Disorder, Cannabis, Alcohol, Cocaine use disorder to ER with EMS from [facility] in [place]. Pt reports sx of AH, depression, SI. Reports medicine compliance, Hermes's Guardianship (mom Samina is guardian), School Bus Operator Rebecca Mooney is her Hermes's monitor along with Jean Leiva. Pt reports CAH control my brain I know they will kill me. They put me down . The Clozaril sedates me, the Zyprexa and Hydroxyzine work, but I can become faint, black out, my brain darkens and I think I become dystonic . Reports depression, you can make changes, but I think these voices will kill me. Toxicology positive for cocaine, cannabis. Discussed with guardian, mother, Samina. Pt moved into [facility] respite housing the first week of March 2025-She has had difficulty with routine, brought a knife to respite initially as she felt she was in danger. Samina backed off-allowing pt to create her own schedule and interviened only when asked. 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 She has been working at the [employer] and secured a job for herself. She has been increasing time on social media (does better when she is not on social media). Childhood friend, Josie, was this past weekend-They were friends from age 8 to 14, losing contact when pt began to have sx. Pt did not attend the wedding. OP/Respite team meeting upcoming about her progress in respite. Loss of grandparents this year 06/16/25: Olanzapine 5 mg bid prn Plan: Admit, CV (guardianship), 15 minute checks Will verify current Hermes's med list Encourage milieu engagement Diagnostics as needed Collateral contact Continue current regime until Hermes's is clarified Discharge planning. Reason for continued inpatient stay Substantial Risk for: rapid decompensation Time Spent With Patient Time: Total time managing care of this patient today ____ minutes.
[2025-06-16 12:41] VITALS: BP 110/74; PULSE 97; RESP 16; TEMP 36.1; O2SAT 97
[2025-06-16 18:56] LABS: Alanine Aminotransferase 29 U/L (0-31); Albumin Level 4.9 g/dL (3.5-5.0); Alkaline Phosphatase 57 U/L (39-117); Anion Gap 14 (12-20); Aspartate Amino Transferase 18 U/L (5-31); Blood Urea Nitrogen 17 mg/dL (9-16); Calcium 9.9 mg/dL (8.4-10.2); Carbon Dioxide 23 mmol/L (22-29); Chloride 105 mmol/L (96-108); Cholesterol 197 mg/dL (<200); Creatinine Clr Calc Pharmacy 102.2; Estimated Glomerular Filt Rate > 60; HDL Cholesterol 37 mg/dL (>40); Potassium 3.8 mmol/L (3.3-5.1); Sodium 138 mmol/L (135-145); Total Protein 7.1 g/dL (6.5-8.0); Triglycerides 261 mg/dL (<150)
[2025-06-16 20:00] VITALS: BP 115/70; PULSE 95; RESP 18; TEMP 37.2; O2SAT 97
--- NOTE | 2025-06-17 09:46 | HO.PSYCHPN ---
Subjective Subjective Date of Service: 06/17/25 Reason For Visit: PSYCH from [facility] SI no plan Interim History: Patient seen and discussed with RN. She says she has improved since admission. Doing well. No side effects with medications. Says she has no SI today. AH have subsided. Review of Systems Review of Systems Denies Mental Status Exam Mental Status Exam Patient Appearance: Appropriate Patient Orientation: Person, Place, Time and Situation Level of Consciousness: Alert Patient Behavior: Talkative and Good Eye Contact Mood Description: Depressed Affect Description: Flat Patient Cognition Impaired: No Ability to Follow Directions: Good Speech Pattern: Spontaneous Speech Memory Description: Intact Diagnostics Vital Signs (24Hr): Vital Signs - 24 hr 06/16/25 12:41 06/16/25 20:00 Temperature 97.0 F 98.9 F Pulse Rate 97 95 Respiratory Rate 16 18 Blood Pressure 110/74 115/70 Pulse Oximetry 97 97 Oxygen Delivery Method Room Air Room Air BMI result Body Mass Index 30.9 Labs 06/13/25 22:03 06/16/25 18:05 Labs: Laboratory Results - last 48 hr 06/16/25 18:05 Sodium 138 Potassium 3.8 Chloride 105 Carbon Dioxide 23 Anion Gap 14 BUN 17 H Creatinine 0.91 Estim Creat Clear Calc 102.2 Estimated GFR > 60 Random Glucose 93 Estimat Average Glucose 100 Hemoglobin A1c % 5.1 Calcium 9.9 D Total Bilirubin 0.3 AST 18 ALT 29 Alkaline Phosphatase 57 Total Protein 7.1 Albumin 4.9 Triglycerides 261 H Cholesterol 197 LDL Cholesterol, Calc 108 H HDL Cholesterol 37 L Medications Medications Current Medications Acetaminophen (Acetaminophen 325 Mg Tablet) 650 mg PO Q6H PRN PRN Reason: Headache/Pain, Scale 1-10 Al Hydroxide/Mg Hydroxide (Magnesium Hydrox/Alum Hydrox 30 Ml Oral.Susp) 30 ml PO Q6H PRN PRN Reason: Heartburn/Nausea Benztropine Mesylate (Benztropine Mesylate 1 Mg Tablet) 1 mg PO TID [facility] Last Admin: 06/17/25 09:20 Dose: 1 mg Cefuroxime Axetil (Cefuroxime Axetil 250 Mg Tablet) 250 mg PO BID [facility] Stop: 06/21/25 08:59 Last Admin: 06/17/25 09:19 Dose: 250 mg Clozapine (Clozapine 100 Mg Tablet) 400 mg PO BEDTIME [facility] Last Admin: 06/16/25 20:55 Dose: 400 mg Docusate Sodium (Docusate Sodium 100 Mg Capsule) 100 mg PO BID [facility] Last Admin: 06/17/25 09:19 Dose: 100 mg Hydroxyzine HCl (Hydroxyzine Hcl 25 Mg Tablet) 25 mg PO Q6H PRN PRN Reason: mild anxiety Lamotrigine (Lamotrigine 25 Mg Tablet) 25 mg PO DAILY [facility] Last Admin: 06/17/25 09:20 Dose: 25 mg Lamotrigine (Lamotrigine 100 Mg Tablet) 100 mg PO DAILY [facility] Last Admin: 06/17/25 09:19 Dose: 100 mg Magnesium Hydroxide (Milk Of Magnesia 30 Ml Oral.Susp) 30 ml PO DAILY PRN PRN Reason: Constipation Metformin HCl (Metformin Hcl 500 Mg Tablet) 500 mg PO DAILY [facility] Last Admin: 06/17/25 09:20 Dose: 500 mg Nicotine (Nicotine 21 Mg Patch.Td24) 21 mg TRANSDERMA DAILY PRN PRN Reason: smoking cessation Nicotine Polacrilex (Nicotine Polacrilex 2 Mg Gum) 4 mg BUCCAL Q2H PRN PRN Reason: Nicotine Cravings Last Admin: 06/16/25 18:44 Dose: 4 mg Olanzapine (Olanzapine 5 Mg Tablet) 5 mg PO BID PRN PRN Reason: agitation, anxiety, voices Sertraline HCl (Sertraline Hcl 25 Mg Tablet) 75 mg PO DAILY [facility] Last Admin: 06/17/25 09:19 Dose: 75 mg Allergies Allergies Allergy/AdvReac Type Severity Reaction Status Date / Time aripiprazole (Abilify) Allergy Unknown tongue Verified 06/13/25 21:34 swells and gain weight risperidone (From Risperdal) AdvReac Unknown gain Verified 06/13/25 21:34 weight, and slurred speech cariprazine (From Vraylar) AdvReac Verified 06/13/25 21:34 haloperidol (From Haldol) AdvReac DYSTONIA Verified 06/13/25 21:34 paliperidone AdvReac dystonia Verified 06/13/25 21:34 trazodone AdvReac DYSTONIA Verified 06/13/25 21:34 Assessment & Plan Assessment & Plan (1) PTSD (post-traumatic stress disorder): Status: Acute Code(s): F43.10 - Post-traumatic stress disorder, unspecified (2) Schizoaffective disorder, bipolar type: Status: Acute Code(s): F25.0 - Schizoaffective disorder, bipolar type (3) Cannabis use disorder: Status: Acute Code(s): F12.90 - Cannabis use, unspecified, uncomplicated (4) Cocaine use disorder: Status: Acute Code(s): F14.10 - Cocaine abuse, uncomplicated Plan 24 yo female, history of PTSD, Schizoaffective Disorder, Cannabis, Alcohol, Cocaine use disorder to ER with EMS from [facility] in [place]. Pt reports sx of AH, depression, SI. Reports medicine compliance, Hermes's Guardianship (mom Samina is guardian), Housing Project Manager Rebecca Mooney is her Hermes's monitor along with Jean Leiva. Pt reports CAH control my brain I know they will kill me. They put me down . The Clozaril sedates me, the Zyprexa and Hydroxyzine work, but I can become faint, black out, my brain darkens and I think I become dystonic . Reports depression, you can make changes, but I think these voices will kill me. Toxicology positive for cocaine, cannabis. Discussed with guardian, mother, Samina. Pt moved into [facility] respite housing the first week of March 2025-She has had difficulty with routine, brought a knife to respite initially as she felt she was in danger. Samina backed off-allowing pt to create her own schedule and interviened only when asked. 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 She has been working at the [employer] and secured a job for herself. She has been increasing time on social media (does better when she is not on social media). Childhood friend, Josie, was this past weekend-They were friends from age 8 to 14, losing contact when pt began to have sx. Pt did not attend the wedding. OP/Respite team meeting upcoming about her progress in respite. Loss of grandparents this year 06/16/25: Olanzapine 5 mg bid prn 06/17: continue current management and treatment plan. Plan: Admit, CV (guardianship), 15 minute checks Will verify current Hermes's med list Encourage milieu engagement Diagnostics as needed Collateral contact Continue current regime until Hermes's is clarified Discharge planning. Reason for continued inpatient stay Substantial Risk for: harm to self, inability to function and rapid decompensation Time Spent With Patient Time: Total time managing care of this patient today ____ minutes.
[2025-06-17 20:00] VITALS: BP 134/87; PULSE 103; RESP 18; TEMP 36.4; O2SAT 98
--- NOTE | 2025-06-18 09:35 | HO.PSYCHPN ---
Subjective Subjective Date of Service: 06/18/25 Reason For Visit: PSYCH from [facility] SI no plan Interim History: Patient seen and discussed with RN. Patient had some AH last night and was hearing voices telling her to kill herself and seeing Stevie Morales but wasn't disturbed by this and says I have learned to manage the voices and I took a PRN. She reports noticeable improvement since admission and the voices have decreased in frequency and severity. No side effects with medications. Says she has no SI today. Review of Systems Review of Systems Denies Mental Status Exam Mental Status Exam Patient Appearance: Appropriate Patient Orientation: Person, Place, Time and Situation Level of Consciousness: Alert Patient Behavior: Talkative and Good Eye Contact Mood Description: Depressed Affect Description: Flat Patient Cognition Impaired: No Ability to Follow Directions: Good Speech Pattern: Spontaneous Speech Memory Description: Intact Diagnostics Vital Signs (24Hr): Vital Signs - 24 hr 06/17/25 20:00 Temperature 97.6 F Pulse Rate 103 H Respiratory Rate 18 Blood Pressure 134/87 Pulse Oximetry 98 Oxygen Delivery Method Room Air BMI result Body Mass Index 30.9 Labs 06/13/25 22:03 06/16/25 18:05 Labs: Laboratory Results - last 48 hr 06/16/25 18:05 Sodium 138 Potassium 3.8 Chloride 105 Carbon Dioxide 23 Anion Gap 14 BUN 17 H Creatinine 0.91 Estim Creat Clear Calc 102.2 Estimated GFR > 60 Random Glucose 93 Estimat Average Glucose 100 Hemoglobin A1c % 5.1 Calcium 9.9 D Total Bilirubin 0.3 AST 18 ALT 29 Alkaline Phosphatase 57 Total Protein 7.1 Albumin 4.9 Triglycerides 261 H Cholesterol 197 LDL Cholesterol, Calc 108 H HDL Cholesterol 37 L Medications Medications Current Medications Acetaminophen (Acetaminophen 325 Mg Tablet) 650 mg PO Q6H PRN PRN Reason: Headache/Pain, Scale 1-10 Last Admin: 06/17/25 21:38 Dose: 650 mg Al Hydroxide/Mg Hydroxide (Magnesium Hydrox/Alum Hydrox 30 Ml Oral.Susp) 30 ml PO Q6H PRN PRN Reason: Heartburn/Nausea Benztropine Mesylate (Benztropine Mesylate 1 Mg Tablet) 1 mg PO TID [facility] Last Admin: 06/17/25 21:03 Dose: 1 mg Cefuroxime Axetil (Cefuroxime Axetil 250 Mg Tablet) 250 mg PO BID [facility] Stop: 06/21/25 08:59 Last Admin: 06/17/25 21:03 Dose: 250 mg Clozapine (Clozapine 100 Mg Tablet) 400 mg PO BEDTIME [facility] Last Admin: 06/17/25 21:03 Dose: 400 mg Docusate Sodium (Docusate Sodium 100 Mg Capsule) 100 mg PO BID [facility] Last Admin: 06/17/25 21:03 Dose: 100 mg Hydroxyzine HCl (Hydroxyzine Hcl 25 Mg Tablet) 25 mg PO Q6H PRN PRN Reason: mild anxiety Lamotrigine (Lamotrigine 25 Mg Tablet) 25 mg PO DAILY [facility] Last Admin: 06/17/25 09:20 Dose: 25 mg Lamotrigine (Lamotrigine 100 Mg Tablet) 100 mg PO DAILY [facility] Last Admin: 06/17/25 09:19 Dose: 100 mg Magnesium Hydroxide (Milk Of Magnesia 30 Ml Oral.Susp) 30 ml PO DAILY PRN PRN Reason: Constipation Metformin HCl (Metformin Hcl 500 Mg Tablet) 500 mg PO DAILY [facility] Last Admin: 06/17/25 09:20 Dose: 500 mg Nicotine (Nicotine 21 Mg Patch.Td24) 21 mg TRANSDERMA DAILY PRN PRN Reason: smoking cessation Nicotine Polacrilex (Nicotine Polacrilex 2 Mg Gum) 4 mg BUCCAL Q2H PRN PRN Reason: Nicotine Cravings Last Admin: 06/17/25 20:15 Dose: 4 mg Olanzapine (Olanzapine 5 Mg Tablet) 5 mg PO BID PRN PRN Reason: agitation, anxiety, voices Last Admin: 06/17/25 13:38 Dose: 5 mg Sertraline HCl (Sertraline Hcl 25 Mg Tablet) 75 mg PO DAILY [facility] Last Admin: 06/17/25 09:19 Dose: 75 mg Allergies Allergies Allergy/AdvReac Type Severity Reaction Status Date / Time aripiprazole (Abilify) Allergy Unknown tongue Verified 06/13/25 21:34 swells and gain weight risperidone (From Risperdal) AdvReac Unknown gain Verified 06/13/25 21:34 weight, and slurred speech cariprazine (From Vraylar) AdvReac Verified 06/13/25 21:34 haloperidol (From Haldol) AdvReac DYSTONIA Verified 06/13/25 21:34 paliperidone AdvReac dystonia Verified 06/13/25 21:34 trazodone AdvReac DYSTONIA Verified 06/13/25 21:34 Assessment & Plan Assessment & Plan (1) PTSD (post-traumatic stress disorder): Status: Acute Code(s): F43.10 - Post-traumatic stress disorder, unspecified (2) Schizoaffective disorder, bipolar type: Status: Acute Code(s): F25.0 - Schizoaffective disorder, bipolar type (3) Cannabis use disorder: Status: Acute Code(s): F12.90 - Cannabis use, unspecified, uncomplicated (4) Cocaine use disorder: Status: Acute Code(s): F14.10 - Cocaine abuse, uncomplicated Plan 24 yo female, history of PTSD, Schizoaffective Disorder, Cannabis, Alcohol, Cocaine use disorder to ER with EMS from [facility] in [place]. Pt reports sx of AH, depression, SI. Reports medicine compliance, Hermes's Guardianship (mom Samina is guardian), Transportation Consultant Rebecca Mooney is her Hermes's monitor along with Jean Leiva. Pt reports CAH control my brain I know they will kill me. They put me down . The Clozaril sedates me, the Zyprexa and Hydroxyzine work, but I can become faint, black out, my brain darkens and I think I become dystonic . Reports depression, you can make changes, but I think these voices will kill me. Toxicology positive for cocaine, cannabis. Discussed with guardian, mother, Samina. Pt moved into [facility] respite housing the first week of March 2025-She has had difficulty with routine, brought a knife to respite initially as she felt she was in danger. Samina backed off-allowing pt to create her own schedule and interviened only when asked. 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. She has been working at the [employer] and secured a job for herself. She has been increasing time on social media (does better when she is not on social media). Childhood friend, Josie, was this past weekend-They were friends from age 8 to 14, losing contact when pt began to have sx. Pt did not attend the wedding. OP/Respite team meeting upcoming about her progress in respite. Loss of grandparents this year 06/16/25: Olanzapine 5 mg bid prn 06/17: continue current management and treatment plan. 06/18: continue current management and treatment plan. Plan: Admit, CV (guardianship), 15 minute checks Will verify current Hermes's med list Encourage milieu engagement Diagnostics as needed Collateral contact Continue current regime until Hermes's is clarified Discharge planning. Reason for continued inpatient stay Substantial Risk for: harm to self, inability to function and rapid decompensation Time Spent With Patient Time: Total time managing care of this patient today ____ minutes.
[2025-06-18] MEDS: Milk of Magnesia 30 ML ORAL.SUSP PO (10:05)
[2025-06-18 21:35] VITALS: BP 124/78; PULSE 83; RESP 16; TEMP 36.7; O2SAT 97
[2025-06-19 08:00] VITALS: BP 126/82; PULSE 81; RESP 20; TEMP 36.9; O2SAT 98
--- NOTE | 2025-06-19 09:44 | P.PNPSI_ITS ---
Subjective Subjective Date of Service: 06/20/25 Reason For Visit: PSYCH from [facility] SI no plan Subjective Notes: Conditional Voluntary Healthcare Proxy: No Guardianship: Yes Medical Problems Affecting Mental Status: No Interim History: Pt continues to report AH,VH. She has been accepted to the [facility] in [place] and will transfer on 06/22. She is excited to attend the program and discussed goals for her work there. We discussed scheduling Olanzapine to augment Clozapine which she is in agreement with to improve sx mgt. Will begin with 5 mg bid. Medication Compliance: Yes Side effects from medications: No Attending Groups: No Review of Systems Acute medical concerns: No Medical Review of Systems: unchanged Review of Systems Review of Systems Constipation Mental Status Exam Mental Status Exam Patient Appearance: Appropriate Patient Orientation: Person, Place, Time and Situation Level of Consciousness: Alert Patient Behavior: Talkative and Good Eye Contact Mood Description: Constricted Affect Description: Constricted Patient Cognition Impaired: No Ability to Follow Directions: Good Speech Pattern: Spontaneous Speech Memory Description: Normal for Patient Hallucinations: Auditory and Visual Perceptual Disturbances: Depersonalization and Derealization Thought Process: Distracted Thought Content: positive for Circumstantial and positive for Suicidal Ideation (denies, but I think voices will kill me ) Judgement: Fair Diagnostics Vital Signs (24Hr): Vital Signs - 24 hr 06/18/25 21:35 06/19/25 08:00 Temperature 98.1 F 98.4 F Pulse Rate 83 81 Respiratory Rate 16 20 Blood Pressure 124/78 126/82 Pulse Oximetry 97 98 Oxygen Delivery Method Room Air Room Air BMI result Body Mass Index 30.9 Labs 06/13/25 22:03 06/20/25 07:59 Medications Medications Current Medications Acetaminophen (Acetaminophen 325 Mg Tablet) 650 mg PO Q6H PRN PRN Reason: Headache/Pain, Scale 1-10 Last Admin: 06/18/25 10:06 Dose: 650 mg Al Hydroxide/Mg Hydroxide (Magnesium Hydrox/Alum Hydrox 30 Ml Oral.Susp) 30 ml PO Q6H PRN PRN Reason: Heartburn/Nausea Benztropine Mesylate (Benztropine Mesylate 1 Mg Tablet) 1 mg PO TID [facility] Last Admin: 06/18/25 20:49 Dose: 1 mg Cefuroxime Axetil (Cefuroxime Axetil 250 Mg Tablet) 250 mg PO BID [facility] Stop: 06/21/25 08:59 Last Admin: 06/18/25 20:49 Dose: 250 mg Clozapine (Clozapine 100 Mg Tablet) 400 mg PO BEDTIME [facility] Last Admin: 06/18/25 20:49 Dose: 400 mg Docusate Sodium (Docusate Sodium 100 Mg Capsule) 100 mg PO BID [facility] Last Admin: 06/18/25 20:50 Dose: 100 mg Hydroxyzine HCl (Hydroxyzine Hcl 25 Mg Tablet) 25 mg PO Q6H PRN PRN Reason: mild anxiety Last Admin: 06/18/25 20:50 Dose: 25 mg Lamotrigine (Lamotrigine 25 Mg Tablet) 25 mg PO DAILY [facility] Last Admin: 06/18/25 10:01 Dose: 25 mg Lamotrigine (Lamotrigine 100 Mg Tablet) 100 mg PO DAILY [facility] Last Admin: 06/18/25 10:01 Dose: 100 mg Magnesium Hydroxide (Milk Of Magnesia 30 Ml Oral.Susp) 30 ml PO DAILY PRN PRN Reason: Constipation Last Admin: 06/18/25 10:05 Dose: 30 ml Metformin HCl (Metformin Hcl 500 Mg Tablet) 500 mg PO DAILY [facility] Last Admin: 06/18/25 10:01 Dose: 500 mg Nicotine (Nicotine 21 Mg Patch.Td24) 21 mg TRANSDERMA DAILY PRN PRN Reason: smoking cessation Nicotine Polacrilex (Nicotine Polacrilex 2 Mg Gum) 4 mg BUCCAL Q2H PRN PRN Reason: Nicotine Cravings Last Admin: 06/18/25 20:50 Dose: 4 mg Olanzapine (Olanzapine 5 Mg Tablet) 5 mg PO BID PRN PRN Reason: agitation, anxiety, voices Last Admin: 06/18/25 20:50 Dose: 5 mg Sertraline HCl (Sertraline Hcl 25 Mg Tablet) 75 mg PO DAILY [facility] Last Admin: 06/18/25 10:01 Dose: 75 mg Allergies Allergies Allergy/AdvReac Type Severity Reaction Status Date / Time aripiprazole (Abilify) Allergy Unknown tongue Verified 06/13/25 21:34 swells and gain weight risperidone (From Risperdal) AdvReac Unknown gain Verified 06/13/25 21:34 weight, and slurred speech cariprazine (From Vraylar) AdvReac Verified 06/13/25 21:34 haloperidol (From Haldol) AdvReac DYSTONIA Verified 06/13/25 21:34 paliperidone AdvReac dystonia Verified 06/13/25 21:34 trazodone AdvReac DYSTONIA Verified 06/13/25 21:34 Assessment & Plan Assessment & Plan (1) PTSD (post-traumatic stress disorder): Status: Acute Code(s): F43.10 - Post-traumatic stress disorder, unspecified (2) Schizoaffective disorder, bipolar type: Status: Acute Code(s): F25.0 - Schizoaffective disorder, bipolar type (3) Cannabis use disorder: Status: Acute Code(s): F12.90 - Cannabis use, unspecified, uncomplicated (4) Cocaine use disorder: Status: Acute Code(s): F14.10 - Cocaine abuse, uncomplicated Plan 24 yo female, history of PTSD, Schizoaffective Disorder, Cannabis, Alcohol, Cocaine use disorder to ER with EMS from [facility] in [place]. Pt reports sx of AH, depression, SI. Reports medicine compliance, Hermes's Guardianship (mom Samina is guardian), Manufacturing Project Manager Rebecca Mooney is her Hermes's monitor along with Jean Leiva. Pt reports CAH control my brain I know they will kill me. They put me down . The Clozaril sedates me, the Zyprexa and Hydroxyzine work, but I can become faint, black out, my brain darkens and I think I become dystonic . Reports depression, you can make changes, but I think these voices will kill me. Toxicology positive for cocaine, cannabis. Discussed with guardian, mother, Samina. Pt moved into [facility] respite housing the first week of March 2025-She has had difficulty with routine, brought a knife to respite initially as she felt she was in danger. Samina backed off-allowing pt to create her own schedule and interviened only when asked. 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 She has been working at the [employer] and secured a job for herself. She has been increasing time on social media (does better when she is not on social media). Childhood friend, Josie, was this past weekend-They were friends from age 8 to 14, losing contact when pt began to have sx. Pt did not attend the wedding. OP/Respite team meeting upcoming about her progress in respite. Loss of grandparents this year 06/16/25: Olanzapine 5 mg bid prn 06/17: continue current management and treatment plan. 06/18: continue current management and treatment plan. 06/19: Olanzapine 5 mg bid Plan: Admit, CV (guardianship), 15 minute checks Will verify current Hermes's med list Encourage milieu engagement Diagnostics as needed Collateral contact Continue current regime until Hermes's is clarified Discharge planning. Reason for continued inpatient stay Substantial Risk for: rapid decompensation Time Spent With Patient Time: Total time managing care of this patient today ____ minutes.
[2025-06-19] MEDS: Milk of Magnesia 30 ML ORAL.SUSP PO (11:07)
[2025-06-19 20:32] VITALS: BP 113/70; PULSE 91; RESP 16; TEMP 36.9; O2SAT 97
[2025-06-20 08:05] LABS: Neut%MD 47.8 %; WBCANC 5.5 X10*3/uL
[2025-06-20 08:19] LABS: Creatinine Clr Calc Pharmacy 108.1; Estimated Glomerular Filt Rate > 60
--- NOTE | 2025-06-20 08:57 | HO.PSYCHPN ---
Subjective Subjective Date of Service: 06/20/25 Reason For Visit: PSYCH from [facility] SI no plan Subjective Notes: Conditional Voluntary Healthcare Proxy: No Guardianship: Yes Medical Problems Affecting Mental Status: No Interim History: Tolerating Olanzapine. Continues with some AH,VH, however decreasing. Talked today of her hopes for growth in going to the new program. Visable in the milieu. Medication Compliance: Yes Side effects from medications: No Attending Groups: Yes Review of Systems Acute medical concerns: No Medical Review of Systems: unchanged Review of Systems Review of Systems denies Mental Status Exam Mental Status Exam Patient Appearance: Appropriate Patient Orientation: Person, Place, Time and Situation Level of Consciousness: Alert Patient Behavior: Appropriate, Talkative, Cooperative and Good Eye Contact Mood Description: Appropriate Affect Description: Appropriate Patient Cognition Impaired: No Ability to Follow Directions: Good Speech Pattern: Spontaneous Speech Memory Description: Episodic Impaired Hallucinations: Auditory (decreasing) and Visual (decreasing) Delusions: Not Present Perceptual Disturbances: Depersonalization and Derealization Thought Process: Goal Oriented Thought Content: positive for Goal Oriented and positive for Suicidal Ideation (denies) Depressive Symptoms: Thoughts of /Suicide (denies) Judgement: Fair Diagnostics Vital Signs (24Hr): Vital Signs - 24 hr 06/19/25 20:32 Temperature 98.4 F Pulse Rate 91 Respiratory Rate 16 Blood Pressure 113/70 Pulse Oximetry 97 Oxygen Delivery Method Room Air BMI result Body Mass Index 30.9 Labs 06/13/25 22:03 06/20/25 07:59 Labs: Laboratory Results - last 48 hr 06/20/25 06/20/25 07:58 07:59 Absolute Neuts (auto) 2.6 Creatinine 0.86 Estim Creat Clear Calc 108.1 Estimated GFR > 60 Medications Medications Current Medications Acetaminophen (Acetaminophen 325 Mg Tablet) 650 mg PO Q6H PRN PRN Reason: Headache/Pain, Scale 1-10 Last Admin: 06/18/25 10:06 Dose: 650 mg Al Hydroxide/Mg Hydroxide (Magnesium Hydrox/Alum Hydrox 30 Ml Oral.Susp) 30 ml PO Q6H PRN PRN Reason: Heartburn/Nausea Benztropine Mesylate (Benztropine Mesylate 1 Mg Tablet) 1 mg PO TID [facility] Last Admin: 06/20/25 08:32 Dose: 1 mg Cefuroxime Axetil (Cefuroxime Axetil 250 Mg Tablet) 250 mg PO BID [facility] Stop: 10/29/25 08:59 Last Admin: 06/20/25 08:31 Dose: 250 mg Clozapine (Clozapine 100 Mg Tablet) 400 mg PO BEDTIME [facility] Last Admin: 06/19/25 20:35 Dose: 400 mg Docusate Sodium (Docusate Sodium 100 Mg Capsule) 100 mg PO BID [facility] Last Admin: 06/20/25 08:32 Dose: 100 mg Hydroxyzine HCl (Hydroxyzine Hcl 25 Mg Tablet) 25 mg PO Q6H PRN PRN Reason: mild anxiety Last Admin: 06/19/25 20:36 Dose: 25 mg Lamotrigine (Lamotrigine 25 Mg Tablet) 25 mg PO DAILY [facility] Last Admin: 06/20/25 08:32 Dose: 25 mg Lamotrigine (Lamotrigine 100 Mg Tablet) 100 mg PO DAILY [facility] Last Admin: 06/20/25 08:32 Dose: 100 mg Magnesium Hydroxide (Milk Of Magnesia 30 Ml Oral.Susp) 30 ml PO DAILY PRN PRN Reason: Constipation Last Admin: 06/19/25 11:07 Dose: 30 ml Metformin HCl (Metformin Hcl 500 Mg Tablet) 500 mg PO DAILY [facility] Last Admin: 06/20/25 08:31 Dose: 500 mg Nicotine (Nicotine 21 Mg Patch.Td24) 21 mg TRANSDERMA DAILY PRN PRN Reason: smoking cessation Nicotine Polacrilex (Nicotine Polacrilex 2 Mg Gum) 4 mg BUCCAL Q2H PRN PRN Reason: Nicotine Cravings Last Admin: 06/19/25 20:37 Dose: 4 mg Olanzapine (Olanzapine 5 Mg Tablet) 5 mg PO BID PRN PRN Reason: agitation, anxiety, voices Last Admin: 06/18/25 20:50 Dose: 5 mg Olanzapine (Olanzapine 5 Mg Tablet) 5 mg PO BID [facility] Last Admin: 06/20/25 08:31 Dose: 5 mg Polyethylene Glycol (Polyethylene Glycol 3350 17 Gm Powd.Pack) 17 gm PO DAILY [facility] Last Admin: 06/20/25 08:33 Dose: Not Given Sertraline HCl (Sertraline Hcl 25 Mg Tablet) 75 mg PO DAILY [facility] Last Admin: 06/20/25 08:30 Dose: 75 mg Allergies Allergies Allergy/AdvReac Type Severity Reaction Status Date / Time aripiprazole (Abilify) Allergy Unknown tongue Verified 06/13/25 21:34 swells and gain weight risperidone (From Risperdal) AdvReac Unknown gain Verified 06/13/25 21:34 weight, and slurred speech cariprazine (From Vraylar) AdvReac Verified 06/13/25 21:34 haloperidol (From Haldol) AdvReac DYSTONIA Verified 06/13/25 21:34 paliperidone AdvReac dystonia Verified 06/13/25 21:34 trazodone AdvReac DYSTONIA Verified 06/13/25 21:34 Assessment & Plan Assessment & Plan (1) PTSD (post-traumatic stress disorder): Status: Acute Code(s): F43.10 - Post-traumatic stress disorder, unspecified (2) Schizoaffective disorder, bipolar type: Status: Acute Code(s): F25.0 - Schizoaffective disorder, bipolar type (3) Cannabis use disorder: Status: Acute Code(s): F12.90 - Cannabis use, unspecified, uncomplicated (4) Cocaine use disorder: Status: Acute Code(s): F14.10 - Cocaine abuse, uncomplicated Plan 24 yo female, history of PTSD, Schizoaffective Disorder, Cannabis, Alcohol, Cocaine use disorder to ER with EMS from [facility] in [place]. Pt reports sx of AH, depression, SI. Reports medicine compliance, Hermes's Guardianship (mom Samina is guardian), Electric Vehicle Electrician Rebecca Mooney is her Hermes's monitor along with Jean Leiva. Pt reports CAH control my brain I know they will kill me. They put me down . The Clozaril sedates me, the Zyprexa and Hydroxyzine work, but I can become faint, black out, my brain darkens and I think I become dystonic . Reports depression, you can make changes, but I think these voices will kill me. Toxicology positive for cocaine, cannabis. Discussed with guardian, mother, Samina. Pt moved into [facility] respite housing the first week of March 2025-She has had difficulty with routine, brought a knife to respite initially as she felt she was in danger. Samina backed off-allowing pt to create her own schedule and interviened only when asked. 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 She has been working at the [employer] and secured a job for herself. She has been increasing time on social media (does better when she is not on social media). Childhood friend, Josie, was this past weekend-They were friends from age 8 to 14, losing contact when pt began to have sx. Pt did not attend the wedding. OP/Respite team meeting upcoming about her progress in respite. Loss of grandparents this year 06/16/25: Olanzapine 5 mg bid prn 06/17: continue current management and treatment plan. 06/18: continue current management and treatment plan. 06/20: continue regime. DC 06/22 Plan: Admit, CV (guardianship), 15 minute checks Will verify current Hermes's med list Encourage milieu engagement Diagnostics as needed Collateral contact Continue current regime until Hermes's is clarified Discharge planning. Patient educated on: medication risk/benefits and therapeutic strategies Reason for continued inpatient stay Substantial Risk for: rapid decompensation Time Spent With Patient Time: Total time managing care of this patient today ____ minutes.
[2025-06-20 19:52] VITALS: BP 130/75; PULSE 107; RESP 18; TEMP 37.1; O2SAT 96
[2025-06-21 09:00] VITALS: BP 130/75; PULSE 107; RESP 16; TEMP 37.1; O2SAT 98
--- NOTE | 2025-06-21 09:40 | P.PNPSI_ITS ---
Subjective Subjective Date of Service: 06/21/25 Reason For Visit: PSYCH from [facility] SI no plan Subjective Notes: Conditional Voluntary Healthcare Proxy: No Guardianship: Yes Medical Problems Affecting Mental Status: No Interim History: Liane reports she is tolerating Olanzapine without adverse effects. 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 Baclofen trial initiated. Care discussed with mother/guardian, Samina [phone]. Diagnostics reviewed. Samina requests pt's cholesterol panel be evaluated. Consulted with hospitalist Zenia Guevara DNP who states pt does not need to begin medications, however, she should focus on diet and lifestyle changes with re-eval of levels every 3-4 months. Educational materials were printed for discharge for pt and guardian. Discharge is planned for 06/22 to her new program in [place]. Pt is in agreement and is looking forward to the new environment. Today she is visable in the milieu, social with age appropriate peers. Medication Compliance: Yes Side effects from medications: No Attending Groups: Yes Review of Systems Acute medical concerns: No Medical Review of Systems: unchanged Review of Systems Review of Systems Reports cravings for cocaine-baclofen trial initiated. Mental Status Exam Mental Status Exam Patient Appearance: Appropriate Patient Orientation: Person, Place, Time and Situation Level of Consciousness: Alert Patient Behavior: Appropriate, Talkative, Cooperative and Good Eye Contact Mood Description: Blunted and Apprehensive Affect Description: Blunted and Apprehensive Patient Cognition Impaired: No Ability to Follow Directions: Good Speech Pattern: Spontaneous Speech Memory Description: Intact Hallucinations: Auditory (decreased) and Visual (absent) Delusions: Not Present Thought Process: Goal Oriented Thought Content: positive for Goal Oriented, positive for Suicidal Ideation (denies) and positive for Homicidal Ideation (denies) Judgement: Good Diagnostics Vital Signs (24Hr): Vital Signs - 24 hr 06/20/25 19:52 Temperature 98.7 F Pulse Rate 107 H Respiratory Rate 18 Blood Pressure 130/75 Pulse Oximetry 96 Oxygen Delivery Method Room Air BMI result Body Mass Index 30.9 Labs 06/13/25 22:03 06/20/25 07:59 Labs: Laboratory Results - last 48 hr 06/20/25 06/20/25 07:58 07:59 Absolute Neuts (auto) 2.6 Creatinine 0.86 Estim Creat Clear Calc 108.1 Estimated GFR > 60 Medications Medications Current Medications Acetaminophen (Acetaminophen 325 Mg Tablet) 650 mg PO Q6H PRN PRN Reason: Headache/Pain, Scale 1-10 Last Admin: 06/18/25 10:06 Dose: 650 mg Al Hydroxide/Mg Hydroxide (Magnesium Hydrox/Alum Hydrox 30 Ml Oral.Susp) 30 ml PO Q6H PRN PRN Reason: Heartburn/Nausea Benztropine Mesylate (Benztropine Mesylate 1 Mg Tablet) 1 mg PO TID [facility] Last Admin: 06/21/25 08:57 Dose: 1 mg Clozapine (Clozapine 100 Mg Tablet) 400 mg PO BEDTIME [facility] Last Admin: 06/20/25 21:14 Dose: 400 mg Docusate Sodium (Docusate Sodium 100 Mg Capsule) 100 mg PO BID [facility] Last Admin: 06/21/25 08:57 Dose: 100 mg Hydroxyzine HCl (Hydroxyzine Hcl 25 Mg Tablet) 25 mg PO Q6H PRN PRN Reason: mild anxiety Last Admin: 06/20/25 21:37 Dose: 25 mg Lamotrigine (Lamotrigine 25 Mg Tablet) 25 mg PO DAILY [facility] Last Admin: 06/21/25 08:58 Dose: 25 mg Lamotrigine (Lamotrigine 100 Mg Tablet) 100 mg PO DAILY [facility] Last Admin: 06/21/25 08:58 Dose: 100 mg Magnesium Hydroxide (Milk Of Magnesia 30 Ml Oral.Susp) 30 ml PO DAILY PRN PRN Reason: Constipation Last Admin: 06/19/25 11:07 Dose: 30 ml Metformin HCl (Metformin Hcl 500 Mg Tablet) 500 mg PO DAILY [facility] Last Admin: 06/21/25 08:58 Dose: 500 mg Nicotine (Nicotine 21 Mg Patch.Td24) 21 mg TRANSDERMA DAILY PRN PRN Reason: smoking cessation Nicotine Polacrilex (Nicotine Polacrilex 2 Mg Gum) 4 mg BUCCAL Q2H PRN PRN Reason: Nicotine Cravings Last Admin: 06/21/25 08:58 Dose: 4 mg Olanzapine (Olanzapine 5 Mg Tablet) 5 mg PO BID PRN PRN Reason: agitation, anxiety, voices Last Admin: 06/18/25 20:50 Dose: 5 mg Olanzapine (Olanzapine 5 Mg Tablet) 5 mg PO BID [facility] Last Admin: 06/21/25 08:57 Dose: 5 mg Polyethylene Glycol (Polyethylene Glycol 3350 17 Gm Powd.Pack) 17 gm PO DAILY [facility] Last Admin: 06/20/25 08:33 Dose: Not Given Sertraline HCl (Sertraline Hcl 25 Mg Tablet) 75 mg PO DAILY [facility] Last Admin: 06/21/25 08:57 Dose: 75 mg Allergies Allergies Allergy/AdvReac Type Severity Reaction Status Date / Time aripiprazole (Abilify) Allergy Unknown tongue Verified 06/13/25 21:34 swells and gain weight risperidone (From Risperdal) AdvReac Unknown gain Verified 06/13/25 21:34 weight, and slurred speech cariprazine (From Vraylar) AdvReac Verified 06/13/25 21:34 haloperidol (From Haldol) AdvReac DYSTONIA Verified 06/13/25 21:34 paliperidone AdvReac dystonia Verified 06/13/25 21:34 trazodone AdvReac DYSTONIA Verified 06/13/25 21:34 Assessment & Plan Assessment & Plan (1) PTSD (post-traumatic stress disorder): Status: Acute Code(s): F43.10 - Post-traumatic stress disorder, unspecified (2) Schizoaffective disorder, bipolar type: Status: Acute Code(s): F25.0 - Schizoaffective disorder, bipolar type (3) Cannabis use disorder: Status: Acute Code(s): F12.90 - Cannabis use, unspecified, uncomplicated (4) Cocaine use disorder: Status: Acute Code(s): F14.10 - Cocaine abuse, uncomplicated Plan 24 yo female, history of PTSD, Schizoaffective Disorder, Cannabis, Alcohol, Cocaine use disorder to ER with EMS from [facility] in [place]. Pt reports sx of AH, depression, SI. Reports medicine compliance, Hermes's Guardianship (mom Samina is guardian), Dock Operations Supervisor Rebecca Mooney is her Hermes's monitor along with Jean Leiva. Pt reports CAH control my brain I know they will kill me. They put me down . The Clozaril sedates me, the Zyprexa and Hydroxyzine work, but I can become faint, black out, my brain darkens and I think I become dystonic . Reports depression, you can make changes, but I think these voices will kill me. Toxicology positive for cocaine, cannabis. Discussed with guardian, mother, Samina. Pt moved into [facility] respite housing the first week of March 2025-She has had difficulty with routine, brought a knife to respite initially as she felt she was in danger. Samina backed off-allowing pt to create her own schedule and interviened only when asked. 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 She has been working at the [employer] and secured a job for herself. She has been increasing time on social media (does better when she is not on social media). Childhood friend, Josie, was this past weekend-They were friends from age 8 to 14, losing contact when pt began to have sx. Pt did not attend the wedding. OP/Respite team meeting upcoming about her progress in respite. Loss of grandparents this year 06/16/25: Olanzapine 5 mg bid prn 06/17: continue current management and treatment plan. 06/18: continue current management and treatment plan. 06/20: continue regime. 06/21: Baclofen 10 mg bid for cravings DC 06/22 Plan: Admit, CV (guardianship), 15 minute checks Will verify current Hermes's med list Encourage milieu engagement Diagnostics as needed Collateral contact Continue current regime until Hermes's is clarified Discharge planning. Reason for continued inpatient stay Substantial Risk for: stable for discharge Time Spent With Patient Time: Total time managing care of this patient today ____ minutes.
[2025-06-21 20:00] VITALS: BP 114/73; PULSE 97; RESP 18; TEMP 36.5; O2SAT 97
[2025-06-21] MEDS: Milk of Magnesia 30 ML ORAL.SUSP PO (20:23)
[2025-06-22 09:00] VITALS: BP 130/70; PULSE 80; RESP 16; TEMP 36.4; O2SAT 97
--- NOTE | 2025-06-22 09:17 | P.PNIM_ITS ---
Subjective Subjective Date of Service: 06/22/25 Interval History: Patient is seen for concern with abnormal lipid panel. Triglycerides 261, LDL 108, HDL 37. Discussed dietary and exercise recommendations with the patient. Encouraged her to follow up with her primary care doctor Review of Systems Denies any shortness of breath, chest pain, abdominal pain, reports that she feels well. Physical Exam 2 Exam: Exam: Alert and oriented X3, clam and cooperative. Answers questions. Neuro: CN II-X11 intact, no deficits, visual acuity intact EYES: PERRLA, EOM intact ENT: Hearing intact, MMM Cardiac: S1 S2 RRR, No ectopy Pulmonary: lungs clear to auscultation, No increased WOB. Abdominal: BS active in all 4 quadrants, no guarding or tenderness MSK: Strength 5/5 upper and lower extremities : Deferred Extremities: No edema in lower extremities Psych: Mood stable, Quiet and cooperative. Flat affect Skin: Warm and dry, Intact Vital Signs: Vital Signs: Last Vital Signs Temp 97.7 F 06/21/25 20:00 Pulse 97 06/21/25 20:00 Resp 18 06/21/25 20:00 BP 114/73 06/21/25 20:00 Pulse Ox 97 06/21/25 20:00 O2 Del Method Room Air 06/21/25 20:00 BMI result Body Mass Index 30.9 Objective Data Active Medications Acetaminophen (Acetaminophen 325 Mg Tablet) 650 mg PO Q6H PRN PRN Reason: Headache/Pain, Scale 1-10 Last Admin: 06/18/25 10:06 Dose: 650 mg Documented By: SAMIR Al Hydroxide/Mg Hydroxide (Magnesium Hydrox/Alum Hydrox 30 Ml Oral.Susp) 30 ml PO Q6H PRN PRN Reason: Heartburn/Nausea Baclofen (Baclofen 10 Mg Tablet) 5 mg PO BID [facility] Last Admin: 06/21/25 21:18 Dose: 5 mg Documented By: JERICHO Benztropine Mesylate (Benztropine Mesylate 1 Mg Tablet) 1 mg PO TID [facility] Last Admin: 06/21/25 21:18 Dose: 1 mg Documented By: JERICHO Clozapine (Clozapine 100 Mg Tablet) 400 mg PO BEDTIME [facility] Last Admin: 06/21/25 21:19 Dose: 400 mg Documented By: JERICHO Docusate Sodium (Docusate Sodium 100 Mg Capsule) 100 mg PO BID [facility] Last Admin: 06/21/25 21:18 Dose: 100 mg Documented By: JERICHO Glycerin (Glycerin Adult Supp.Rect) 1 supp CO BEDTIME PRN PRN Reason: continued constipation Last Admin: 06/21/25 22:26 Dose: 1 supp Documented By: JERICHO Hydroxyzine HCl (Hydroxyzine Hcl 25 Mg Tablet) 25 mg PO Q6H PRN PRN Reason: mild anxiety Last Admin: 06/20/25 21:37 Dose: 25 mg Documented By: JERICHO Lamotrigine (Lamotrigine 25 Mg Tablet) 25 mg PO DAILY [facility] Last Admin: 06/21/25 08:58 Dose: 25 mg Documented By: RANDY Lamotrigine (Lamotrigine 100 Mg Tablet) 100 mg PO DAILY [facility] Last Admin: 06/21/25 08:58 Dose: 100 mg Documented By: RANDY Magnesium Hydroxide (Milk Of Magnesia 30 Ml Oral.Susp) 30 ml PO DAILY PRN PRN Reason: Constipation Last Admin: 06/21/25 20:23 Dose: 30 ml Documented By: JERICHO Metformin HCl (Metformin Hcl 500 Mg Tablet) 500 mg PO DAILY [facility] Last Admin: 06/21/25 08:58 Dose: 500 mg Documented By: RANDY Nicotine (Nicotine 21 Mg Patch.Td24) 21 mg TRANSDERMA DAILY PRN PRN Reason: smoking cessation Nicotine Polacrilex (Nicotine Polacrilex 2 Mg Gum) 4 mg BUCCAL Q2H PRN PRN Reason: Nicotine Cravings Last Admin: 06/21/25 18:56 Dose: 4 mg Documented By: RANDY Olanzapine (Olanzapine 5 Mg Tablet) 5 mg PO BID PRN PRN Reason: agitation, anxiety, voices Last Admin: 06/18/25 20:50 Dose: 5 mg Documented By: LOUIE Olanzapine (Olanzapine 5 Mg Tablet) 5 mg PO BID [facility] Last Admin: 06/21/25 21:20 Dose: 5 mg Documented By: JERICHO Polyethylene Glycol (Polyethylene Glycol 3350 17 Gm Powd.Pack) 17 gm PO DAILY [facility] Last Admin: 06/21/25 10:18 Dose: Not Given Documented By: HO.MOTYLA Non-Admin Reason: Patient Refused Sertraline HCl (Sertraline Hcl 25 Mg Tablet) 75 mg PO DAILY [facility] Last Admin: 06/21/25 08:57 Dose: 75 mg Documented By: RANDY Labs 06/13/25 22:03 06/20/25 07:59 Assessment and Plan (1) Mixed dyslipidemia: Status: Acute Plan 24-year-old female with past medical history as listed below presents to the ED from [facility] and [place] with increased depression and auditory hallucinations as well as suicidal ideation. Patient is being seen today for concerns of elevated cholesterol levels. Polysubstance use/schizophrenia/PTSD Treatment per psychiatric team UTI Completed Ceftin for UTI Dyslipidemia Encourage lifestyle changes including dietary changes and exercise Thank you for allowing me to participate in the care of this patient. Will follow with you, please notify medical provider with any changes in condition or concerns. Quality Stroke Does the patient have a stroke diagnosis?: No VTE Prior VTE?: No VTE Risk Level:: Medical - low VTE Device Contraindication: Treatment Not Indicated VTE Drug Contraindication: Treatment Not Indicated
--- NOTE | 2025-06-22 10:19 | PM.PSYDC ---
DS: Providers Provider Date of Service: 06/22/25 Date of admission: 06/14/25 13:21 Date of discharge: 06/22/25 Primary care physician: Brianna Dunn MD Admitting clinician: Zee Washington Attending physician on admission: Zeferino Gentile Consults: 06/21/25 11:23 Consult to Hospitalist Routine Comment: Consulting Provider: [facility] [place] Hospitalists Reason For Exam: increase triglycerides-guardian asks for meds/ed Attending physician on discharge: Zeferino Gentile Discharging clinician: Zee Washington DS: Diagnosis Discharge Diagnosis (1) PTSD (post-traumatic stress disorder): Status: Acute (2) Schizoaffective disorder, bipolar type: Status: Acute (3) Cannabis use disorder: Status: Acute (4) Cocaine use disorder: Status: Acute DS: Medications Discharge Medications Home Medications: Previous Rx's ?Medication ?Instructions ?Recorded acetaminophen 325 mg tablet 650 mg (2 x 325 mg) PO Q6H PRN 06/22/25 Headache/Pain, Scale 1-10 #90 tabs baclofen 10 mg tablet 5 mg (1/2 x 10 mg) PO BID #60 tabs 06/22/25 benztropine 1 mg tablet 1 mg PO TID #90 tabs 06/22/25 clozapine 200 mg tablet (Clozaril) 400 mg (2 x 200 mg) PO BEDTIME #60 06/22/25 tabs docusate sodium 100 mg capsule 100 mg PO BID #60 caps 06/22/25 hydroxyzine HCl 25 mg tablet 25 mg PO Q6H PRN mild anxiety #90 06/22/25 tabs lamotrigine 100 mg tablet 100 mg PO DAILY #30 tabs 06/22/25 lamotrigine 25 mg tablet 25 mg PO DAILY #30 tabs 06/22/25 metformin 500 mg tablet 500 mg PO DAILY #30 tabs 06/22/25 nicotine (polacrilex) 2 mg gum 4 mg buccal Q2H PRN Nicotine 06/22/25 Cravings #200 ea olanzapine 5 mg tablet 5 mg PO BID #60 tabs 06/22/25 olanzapine 5 mg tablet 5 mg PO BID PRN agitation, 06/22/25 anxiety, voices #60 tabs polyethylene glycol 3350 17 gram 17 g PO DAILY #30 ea 06/22/25 oral powder packet sertraline 25 mg tablet 75 mg (3 x 25 mg) PO DAILY #45 tabs 06/22/25 Mental Status Exam Mental Status Exam Patient Appearance: Appropriate Patient Orientation: Person, Place, Time and Situation Level of Consciousness: Alert Patient Behavior: Appropriate, Talkative, Cooperative and Good Eye Contact Mood Description: Blunted and Apprehensive Affect Description: Blunted and Apprehensive Patient Cognition Impaired: No Ability to Follow Directions: Good Speech Pattern: Spontaneous Speech Memory Description: Intact Hallucinations: Auditory (decreased) and Visual (absent) Delusions: Not Present Thought Process: Goal Oriented Thought Content: positive for Goal Oriented, positive for Suicidal Ideation (denies) and positive for Homicidal Ideation (denies) Judgement: Good Data Data Completed and Pending Completed studies during hospitalization [Text1]: 06/16/25 06/20/25 06/20/25 18:05 07:58 07:59 Absolute Neuts (auto) 2.6 Sodium 138 Potassium 3.8 Chloride 105 Carbon Dioxide 23 Anion Gap 14 BUN 17 H Creatinine 0.91 0.86 Estim Creat Clear Calc 102.2 108.1 Estimated GFR > 60 > 60 Random Glucose 93 Estimat Average Glucose 100 Hemoglobin A1c % 5.1 Calcium 9.9 D Total Bilirubin 0.3 AST 18 ALT 29 Alkaline Phosphatase 57 Total Protein 7.1 Albumin 4.9 Triglycerides 261 H Cholesterol 197 LDL Cholesterol, Calc 108 H HDL Cholesterol 37 L 06/13/25 Unknown Urine clean catch - Clean Catch Midstream Urine Culture - Final DS: Summary Hospital Course Hospital Course: Admission to adult psychiatry for exacerbatin of PTSD, Schizoaffective Disorder, Bipolar Type, Cocaine and Cannabis Use Disorders. Toxicology positive for cocaine and cannabis. Medications were evaluated and adjusted. Pt was offered full milieu to assist her in strengthening coping skills. Team applied to and pt was accepted to [facility], where she will discharge to to begin ongoing treatment in a residential setting. Status at Discharge Functional status at discharge: independent ambulation Overall status at discharge: patient is progressing back to baseline Time Spent with Patient Time attestation: Total time managing care of this patient today ____ minutes. Time spent: Less than 30 minutes Discharge Plan Discharge Anticipated Discharge Date/Time: 06/22/25 11:00 Patient Disposition: Xfer Other Discharge Diagnosis: PTSD Schizoaffective Disorder, Bipolar Type Cannabis Use Disorder Cocaine Use Disorder Mixed Dyslipidemia [facility] [Other] - 06/29/25 11:00 am Referral Note: Follow up medication management appointment with Azalia Harrington [facility] [Other] - 06/22/25 11:00 am Referral Note: *You have been accepted into [facility]. You can stay at this program anywhere up to one year!!! Brianna Dunn MD [Primary Care Provider, Internal Medicine] - 1 Week Referral Note: Office will call you to schedule appointment. Discharge Medications: New metformin 500 mg Tablet 500 mg PO DAILY Qty: 30 0RF acetaminophen 325 mg Tablet 650 mg PO Q6H PRN (Reason: Headache/Pain, Scale 1-10) Qty: 90 0RF polyethylene glycol 3350 17 gram Powder In Packet 17 g PO DAILY Qty: 30 0RF nicotine (polacrilex) 2 mg Gum 4 mg buccal Q2H PRN (Reason: Nicotine Cravings) Qty: 200 0RF lamotrigine 25 mg Tablet 25 mg PO DAILY Qty: 30 0RF baclofen 10 mg Tablet 5 mg PO BID Qty: 60 0RF benztropine 1 mg Tablet 1 mg PO TID Qty: 90 0RF docusate sodium 100 mg Capsule 100 mg PO BID Qty: 60 0RF sertraline 25 mg Tablet 75 mg PO DAILY Qty: 45 0RF hydroxyzine HCl 25 mg Tablet 25 mg PO Q6H PRN (Reason: mild anxiety) Qty: 90 0RF lamotrigine 100 mg Tablet 100 mg PO DAILY Qty: 30 0RF clozapine [Clozaril] 200 mg tablet 400 mg PO BEDTIME Qty: 60 0RF olanzapine 10 mg tablet 5 mg PO BID Qty: 15 0RF Discontinued metformin 500 mg Tablet 500 mg PO DAILY Qty: 30 0RF acetaminophen 325 mg Tablet 650 mg PO Q6H PRN (Reason: Headache/Pain, Scale 1-10) Qty: 0 0RF lamotrigine 25 mg tablet 25 mg PO DAILY Qty: 30 0RF Rx Instructions: take with 100 mg for a total dose =125 mg benztropine 1 mg tablet 1 tab PO TID Qty: 90 0RF docusate sodium 250 mg capsule 250 mg PO DAILY Qty: 90 1RF sertraline 50 mg tablet 75 mg PO DAILY Qty: 45 0RF lamotrigine 100 mg tablet 1 tab PO DAILY Qty: 30 0RF nicotine (polacrilex) 4 mg gum 4 mg buccal Q2H PRN (Reason: nicotine cravings) Qty: 100 0RF clozapine 200 mg tablet 400 mg PO BEDTIME Rx Instructions: Take 1 tablet by mouth at bedtime Take with 100mg tablet (1.5 tabs) and 25mg tabs for TDD of 375mg Discharge Orders: Discharge Order (Routine); Ordered 06/22/25 Ordered By: Zee Washington Diet: Advance to usual diet Activity on Discharge: As tolerated Stand Alone Forms: Patient Portal Discharge page, Community Support Print Language: Polish Care Plan Goals: Mood and Behavioral Stabilization Abstinence from Substances Health Concerns: Mood and Behavioral Stabilization Abstinence from Substances Plan of Treatment: Attend scheduled appointments Take medications as directed Transfer to [facility] Consider a change from Olanzapine to Lybalvi Assessment: Denies SI,HI, VH AH have decreased with Olanzapine No signs of acute nela or psychosis Patient Instructions: Lipid Profile (GEN), Hyperlipidemia (DC) Discharge Date/Time: 06/22/25 11:33
== END 2025-06-22 11:33 | disposition other institution (70) | DRG 761 ==
LOC: HO.ED 23:57 → HO.PM5 06-14 13:35
PROVIDERS: Emergency Medicine; Admitting Provider Psychiatry & Neurology Psychiatry; Emergency Provider Emergency Medicine; PCP Internal Medicine; Visit Provider Psychiatry & Neurology Psychiatry
DX: F25.0 Schizoaffective disorder, bipolar type (principal); E78.2 Mixed hyperlipidemia; F43.10 Post-traumatic stress disorder, unspecified; N39.0 Urinary tract infection, site not specified; F12.90 Cannabis use, unspecified, uncomplicated; F14.10 Cocaine abuse, uncomplicated; Z79.84 Long term (current) use of oral hypoglycemic drugs; Z87.891 Personal history of nicotine dependence; Z79.899 Other long term (current) drug therapy
CPT/HCPCS: 36415; 80053; 80061; 80143; 80179; 80307; 81001; 81025; 82565; 83036; 85025; 85048; 87086; 93005; 99285; S9485

== ENCOUNTER → 2025-06-14 10:17 | Outpatient (BNV) | payer OTHER, MEDICARE, MEDICAID, SELFPAY | PROVIDERS: Emergency Provider Emergency Medicine; PCP Internal Medicine; Visit Provider Internal Medicine Cardiovascular Disease | DX: Z13.6 Encounter for screening for cardiovascular disorders (principal) | CPT/HCPCS: 93010 ==

== ENCOUNTER → 2025-06-14 13:21 | Outpatient (BNV) | payer OTHER, MEDICARE, MEDICAID, SELFPAY | PROVIDERS: Admitting Provider Psychiatry & Neurology Psychiatry; Emergency Provider Emergency Medicine; PCP Internal Medicine; Visit Provider Clinical Nurse Specialist Psychiatric/Mental Health, Adult | DX: F43.10 Post-traumatic stress disorder, unspecified (principal); F25.0 Schizoaffective disorder, bipolar type; F12.90 Cannabis use, unspecified, uncomplicated; F14.10 Cocaine abuse, uncomplicated | CPT/HCPCS: 90792; 99232 ==

== ENCOUNTER → 2025-06-14 13:21 | Outpatient (BNV) | payer OTHER, MEDICARE, MEDICAID, SELFPAY | PROVIDERS: Admitting Provider Psychiatry & Neurology Psychiatry; Emergency Provider Emergency Medicine; PCP Internal Medicine; Visit Provider Nurse Practitioner Family | DX: E78.2 Mixed hyperlipidemia (principal) | CPT/HCPCS: 99221 ==